=== PATIENT | male | born 1970 | race Caucasian/White ===

== ENCOUNTER 2016-09-17 20:43 | Emergency (ER) | payer OTHER ==
[~2016-09-17] VITALS: Ht 185.4 cm; Wt 159.0 kg
[2016-09-17] VITALS (8 sets, daily range): BP systolic 122–202; BP diastolic 72–106; PULSE 92–108; RESP 18; TEMP 98.7; O2SAT 98–99
[~2016-09-17 20:43] MED LIST: ALPR1TAB3 PO; AMLO10 PO; ASPI81TA81 PO; GLUC500C5 PO; LEVEMIR SQ; LISI-515 PO; METF500T PO; METO50TA PO; NOVOLOGP2 SQ; REGL5TAB PO
[2016-09-17] MEDS ORDERED: hydrALAZINE HCL 20 MG/ML VIAL IV PUSH ONE (21:30)
[2016-09-17] MEDS ORDERED: LORazepam 2 MG/ML VIAL IV PUSH ONE (21:30)
[2016-09-17] MEDS ORDERED: ASPIRIN 81 MG CHEW TAB PO ONE (21:30)
[2016-09-17] MEDS ORDERED: SODIUM CHLORIDE 0.9% FLUSH 10 ML FLUSH IVF PRN (21:30)
[2016-09-17] MEDS: NITROGLYCERIN 0.4 MG SL 25 TABS/BTL SL SCH ×3 (21:35→22:12)
--- NOTE | 2016-09-17 21:37 | PD ---
HPI Chief Complaint: Hypertension Time Seen by Provider: 21:22 Travel History International Travel<30 days: No Contact w/Intl Traveler<30days: No Traveled to known affect area: No History of Present Illness HPI The patient is a 46-year-old male with no known history of heart disease who ran out of his blood pressure medication 6 days ago and 2 days ago started complaining of a headache and chest pain. The headache and chest pain got better but started in today around 2:58 PM. He states when he calms down and he feels better with respect to the chest pain. He does have a history of anxiety. The chest pain is associated with movements. PFSH Past Medical History Autoimmune Disease: No Blood Disorders: No Anxiety: Yes Depression: No Heart Rhythm Problems: Yes (IRREGULAR HEART RATE) Cancer: No Cardiovascular Problems: Yes (htn on meds) High Cholesterol: No COPD: Yes Cerebrovascular Accident: No Diabetes: Yes (DIET CONTROLLED) Patient Takes Glucophage: No Diminished Hearing: No Endocrine: Yes Gastrointestinal Disorders: No GERD: No Gout: Yes Genitourinary: No Headaches: No Hepatitis: No Hiatal Hernia: No Hypertension: Yes Immune Disorder: No Implanted Vascular Access Dvce: No Kidney Stones: No Musculoskeletal: Yes Neurologic: Yes Psychiatric: No Reproductive: No Respiratory: No Immunizations Current: Yes Migraines: No Myocardial Infarction: No Renal Failure: No Seizures: No Ulcer: No ?: Not Menopausal: Yes Past Surgical History Abdominal Surgery: Yes (ANAL FISSURES) AICD: No Appendectomy: No Arteriovenous Shunt: No Cardiac Surgery: No Cholecystectomy: No Ear Surgery: No Endocrine Surgery: No Eye Surgery: No Genitourinary Surgery: No Gynecologic Surgery: No Insulin Pump: No Joint Replacement: No Neurologic Surgery: No Oral Surgery: Yes Pacemaker: No Thoracic Surgery: Yes Tonsillectomy: Yes Other Surgery: Yes (LEFT INNER THIGH ABSCESS REMOVED) Social History Alcohol Use: No Tobacco Use: No (quit 10 yrs ago) Substance Use: No Allergies-Medications (Allergen,Severity, Reaction): Coded Allergies: Codeine (Verified Allergy, Severe, ITCH, 09/17/16) Clonidine (Verified Adverse Reaction, Intermediate, ARNDT, DRY MOUTH, DISORIENTED, 09/17/16) *MDRO Multi-Drug Resistant Organism (Verified Adverse Reaction, Unknown, ) MRSA (wounds) - 04/05/14; 06/29/14 MRSA (bronchial aspirate) - 11/08/03 Reported Meds & Prescriptions Reported Meds & Active Scripts Active Reglan (Metoclopramide HCl) 5 Mg Tab 5 Mg PO TIDAC Reported Norvasc (Amlodipine Besylate) 10 Mg Tab 10 Mg PO BID Metoprolol Tartrate 50 Mg Tab 50 Mg PO BID Lisinopril 20 Mg Tab 20 Mg PO BID Aspir-81 (Aspirin) 81 Mg Tabdr 1 Tab PO DAILY Alprazolam 1 Mg Tab 1 Mg PO HS PRN Review of Systems Except as stated in HPI: all other systems reviewed are Neg Physical Exam Narrative GENERAL: The patient is alert, oriented 3 in minimal apparent distress with his chest pain and moderate distress with his headache. His vital signs show blood pressure 202/106 and repeat is 185/87. SKIN: Focused skin assessment warm/dry. HEAD: Atraumatic. Normocephalic. EYES: Pupils equal and round. No scleral icterus. No injection or drainage. ENT: No nasal bleeding or discharge. Mucous membranes pink and moist. NECK: Trachea midline. No JVD. There is no meningismus and the patient flexes neck fully without any hesitation. CARDIOVASCULAR: Regular rate and rhythm. No murmur appreciated. RESPIRATORY: No accessory muscle use. Clear to auscultation. Breath sounds equal bilaterally. GASTROINTESTINAL: Abdomen soft, non-tender, nondistended. Hepatic and splenic margins not palpable. MUSCULOSKELETAL: No obvious deformities. No clubbing. No cyanosis. No edema. NEUROLOGICAL: Awake and alert. No obvious cranial nerve deficits. Motor grossly within normal limits. Normal speech. PSYCHIATRIC: The patient does appear anxious; insight and judgment normal. Data Data Last Documented VS Vital Signs Date Time Temp Pulse Resp B/P Pulse Ox O2 Delivery O2 Flow Rate FiO2 09/17/16 21:07 99 09/17/16 20:55 98.7 98 18 202/106 Orders Electrocardiogram (09/17/16 21:22) Complete Blood Count With Diff (09/17/16 21:22) Comprehensive Metabolic Panel (09/17/16 21:22) Magnesium (Mg) (09/17/16 21:22) Troponin I (09/17/16 21:22) Ecg Monitoring (09/17/16 21:22) Iv Access Insert/Monitor (09/17/16 21:22) Oximetry (09/17/16 21:22) Oxygen Administration (09/17/16 21:22) Aspirin Chew (Aspirin Chew) (09/17/16 21:30) Sodium Chloride 0.9% Flush (Ns Flush) (09/17/16 21:30) Nitroglycerin Sl (Nitrostat Sl) (09/17/16 21:30) Hydralazine Inj (Apresoline Inj) (09/17/16 21:30) Lorazepam Inj (Ativan Inj) (09/17/16 21:30) Hydromorphone Pf Inj (Dilaudid Pf Inj) (09/17/16 22:30) Ondansetron Inj (Zofran Inj) (09/17/16 22:30) Labs Laboratory Tests Test 09/17/16 09/17/16 22:00 22:36 Sodium Level 138 MEQ/L Potassium Level 4.9 MEQ/L Chloride Level 104 MEQ/L Carbon Dioxide Level 28.5 MEQ/L Anion Gap 6 MEQ/L Blood Urea Nitrogen 26 MG/DL Creatinine 1.30 MG/DL Estimat Glomerular Filtration 60 ML/MIN Rate Random Glucose 138 MG/DL Calcium Level 9.1 MG/DL Magnesium Level 1.9 MG/DL Total Bilirubin 0.4 MG/DL Aspartate Amino Transf 13 U/L (AST/SGOT) Alanine Aminotransferase 23 U/L (ALT/SGPT) Alkaline Phosphatase 111 U/L Troponin I LESS THAN 0.02 NG/ML Total Protein 7.0 GM/DL Albumin 2.9 GM/DL White Blood Count 7.5 TH/MM3 Red Blood Count 4.80 MIL/MM3 Hemoglobin 12.9 GM/DL Hematocrit 39.4 % Mean Corpuscular Volume 82.1 FL Mean Corpuscular Hemoglobin 27.0 PG Mean Corpuscular Hemoglobin 32.8 % Concent Red Cell Distribution Width 13.3 % Platelet Count 277 TH/MM3 Mean Platelet Volume 7.4 FL Neutrophils (%) (Auto) 65.6 % Lymphocytes (%) (Auto) 22.2 % Monocytes (%) (Auto) 9.5 % Eosinophils (%) (Auto) 2.0 % Basophils (%) (Auto) 0.7 % Neutrophils # (Auto) 4.9 TH/MM3 Lymphocytes # (Auto) 1.7 TH/MM3 Monocytes # (Auto) 0.7 TH/MM3 Eosinophils # (Auto) 0.1 TH/MM3 Basophils # (Auto) 0.1 TH/MM3 CBC Comment DIFF FINAL Differential Comment MDM Medical Decision Making Medical Screen Exam Complete: Yes Emergency Medical Condition: Yes Medical Record Reviewed: Yes Interpretation(s) The EKG shows sinus tachycardia with a rate of [address] elevation or depression. The CBC is normal except for a hemoglobin of 12.9. The complete metabolic profile shows a BUN of 26, GFR of 60 and albumin of 2.9 but is otherwise unremarkable. The troponin I is normal. Differential Diagnosis Acute coronary syndrome, atypical chest pain, anxiety, hypertensive headache, tension headache, noncompliance to medication Narrative Course It is now 1017 and the patient's blood pressure is normalized with the Ativan alone. He still has a headache. He has some slight nausea. The chest pain has decreased. It is now 2300 and the patient's chest pain is gone and the headache is minimal. He has no nausea. His blood pressure is normal. He wants to go home. Diagnosis Primary Impression: Headache in front of head Additional Impression: Noncompliance with medications Med/Other Pt SpecificInfo: Prescription(s) given Scripts Amlodipine 10 Mg Tab10 Mg PO DAILY #30 TAB Ref 0 Prov:Jose Sebastian MD 09/17/16 Metoprolol Tartrate 50 Mg Tab50 Mg PO BID #60 TAB Ref 0 Prov:Jose Sebastian MD 09/17/16 Lisinopril 20 Mg Tab20 Mg PO DAILY #30 TAB Ref 0 Prov:Jose Sebastian MD 09/17/16 Alprazolam 2 Mg Tab2 Mg PO HS PRN (ANXIETY) #15 TAB Ref 0 Prov:Jose Sebastian MD 09/17/16 Disposition: 01 DISCHARGE HOME Condition: Stable Jose Sebastian MD Sep 17, 2016 21:37
[2016-09-17] MEDS ORDERED: ONDANSETRON HCL 4 MG/2 ML VIAL IV ONE (22:30)
[2016-09-17] MEDS ORDERED: HYDROmorphone HCL PF 1 MG/ML VIAL IVP ONE (22:30)
[2016-09-17 22:31] LABS: CHLORIDE 104 MEQ/L (98-107); POTASSIUM 4.9 MEQ/L (3.5-5.1); SODIUM (NA) 138 MEQ/L (136-145)
[2016-09-17 22:35] LABS: ANION GAP 6 MEQ/L (5-15); BICARBONATE 28.5 MEQ/L (21.0-32.0); BLOOD UREA NITROGEN 26 MG/DL (7-18); MAGNESIUM 1.9 MG/DL (1.5-2.5)
[2016-09-17 22:38] LABS: ALT (GPT) 23 U/L (12-78); AST (GOT) 13 U/L (15-37); GLOMERULAR FILTRATION RATE 60 ML/MIN (>89)
[2016-09-17 22:39] LABS: TOTAL BILIRUBIN ADULT 0.4 MG/DL (0.2-1.0)
[2016-09-17 22:41] LABS: ALKALINE PHOSPHATASE 111 U/L (45-117)
[2016-09-17 22:47] LABS: AUTOMATED NEUTROPHIL # 4.9 TH/MM3 (1.8-7.7); BASOPHIL # 0.1 TH/MM3 (0-0.2); BASOPHIL % 0.7 % (0.0-2.0); EOSINOPHIL # 0.1 TH/MM3 (0-0.4); HEMATOCRIT 39.4 % (39.0-51.0); HEMO FLAGS DIFF FINAL; LYMPH % 22.2 % (9.0-44.0); LYMPHOCYTE # 1.7 TH/MM3 (1.0-4.8); MEAN CELL VOLUME 82.1 FL (80.0-100.0); MEAN CORPUSCULAR HGB CONC 32.8 % (32.0-36.0); MONO % 9.5 % (0.0-8.0); NEUT % 65.6 % (16.0-70.0); PLATELET COUNT 277 TH/MM3 (150-450); RED CELL DISTRIBUTION WIDTH 13.3 % (11.6-17.2); WHITE BLOOD COUNT 7.5 TH/MM3 (4.0-11.0)
[2016-09-17] MEDS ORDERED: LISI-515 PO (23:05)
[2016-09-17] MEDS ORDERED: AMLO10TA2 PO (23:05)
[2016-09-17] MEDS ORDERED: ALPR2TAB3 PO (23:05)
[2016-09-17] MEDS ORDERED: METO50TA PO (23:05)
--- NOTE | 2016-09-18 16:03 | EKG ---
Date Performed: 09/17/2016 Time Performed: 20:56:20 PTAGE: 46 years EKG: SINUS TACHYCARDIA INDETERMINATE AXIS ABNORMAL RHYTHM ECG PREVIOUS TRACING : 11/22/2015 23.08 Since previous tracing, heart rate is faster, otherwise, no significant change, and overall the tracing is otherwise normal. DOCTOR: Jonathan Calle Interpretating Date/Time 09/18/2016 16:01:44
== END 2016-09-17 23:55 | disposition home or self-care (01) ==
LOC: PHED 20:43
DX: R51 Headache (principal); R07.9 Chest pain, unspecified; R00.0 Tachycardia, unspecified; R94.31 Abnormal electrocardiogram [ECG] [EKG]; I10 Essential (primary) hypertension; E11.9 Type 2 diabetes mellitus without complications; Z91.14 Patient's other noncompliance with medication regimen; Z86.59 Personal history of other mental and behavioral disorders; Z86.79 Personal history of other diseases of the circulatory system; Z87.09 Personal history of other diseases of the respiratory system; Z87.39 Personal history of other diseases of the musculoskeletal system and connective tissue; Z86.69 Personal history of other diseases of the nervous system and sense organs
CPT/HCPCS: 80053; 83735; 84484; 85025; 93005; 96374; 96375; 99284; J1170; J2060; J2405

== ENCOUNTER 2016-10-20 19:12 | Emergency (ER) | payer OTHER ==
[~2016-10-20] VITALS: Ht 185.4 cm; Wt 164.7 kg
[~2016-10-20 19:12] MED LIST changes: +ALPR2TAB3 PO; +AMLO10TA2 PO; -GLUC500C5 PO; -LEVEMIR SQ; -METF500T PO; -NOVOLOGP2 SQ
[2016-10-20 19:43] VITALS: BP 173/104; PULSE 103; RESP 16; TEMP 98.9; O2SAT 95
[2016-10-20] MEDS ORDERED: XANA1TAB2 PO (19:58)
[2016-10-20] MEDS ORDERED: SODIUM CHLOR 0.9% 1000 ML INJ 1,000 ML IV ONE (20:45)
[2016-10-20] MEDS ORDERED: ONDANSETRON HCL 4 MG/2 ML VIAL IV PUSH ONE (20:45)
[2016-10-20] MEDS ORDERED: CLINDAMYCIN INJ 600 MG in SODIUM CHLORIDE 0.9% INJ 100 ML IV ONE (20:45)
[2016-10-20] MEDS ORDERED: HYDROmorphone HCL PF 2 MG/ML VIAL IV PUSH ONE (20:45)
[2016-10-20 21:09] LABS: AUTOMATED NEUTROPHIL # 6.1 TH/MM3 (1.8-7.7); BASOPHIL # 0.1 TH/MM3 (0-0.2); EOSINOPHIL # 0.1 TH/MM3 (0-0.4); EOSINOPHIL % 1.4 % (0.0-4.0); HEMATOCRIT 36.6 % (39.0-51.0); HEMO FLAGS DIFF FINAL; LYMPH % 12.8 % (9.0-44.0); LYMPHOCYTE # 1.1 TH/MM3 (1.0-4.8); MEAN CELL VOLUME 81.7 FL (80.0-100.0); MEAN CORPUSCULAR HEMOGLOBIN 27.6 PG (27.0-34.0); MEAN CORPUSCULAR HGB CONC 33.8 % (32.0-36.0); MONO % 14.2 % (0.0-8.0); NEUT % 70.6 % (16.0-70.0); PLATELET COUNT 274 TH/MM3 (150-450); RED BLOOD COUNT 4.48 MIL/MM3 (4.50-5.90); RED CELL DISTRIBUTION WIDTH 12.6 % (11.6-17.2); WHITE BLOOD COUNT 8.6 TH/MM3 (4.0-11.0)
[2016-10-20 21:22] LABS: POTASSIUM 5.6 MEQ/L (3.5-5.1)
[2016-10-20 21:25] LABS: BICARBONATE 27.6 MEQ/L (21.0-32.0)
[2016-10-20] MEDS ORDERED: LIDOCAINE HCL 1% 50 ML VIAL INFIL ONE (22:00)
[2016-10-20] MEDS ORDERED: LIDOCAINE HCL 1% 30 ML VIAL INFIL ONE (22:00)
[2016-10-20] MEDS ORDERED: HYDR-3535 PO (22:15)
[2016-10-20] MEDS ORDERED: CLIN1CAP6 PO (22:15)
--- NOTE | 2016-10-20 22:15 | PD ---
HPI Chief Complaint: Skin Problem Time Seen by Provider: 20:22 Travel History International Travel<30 days: No Contact w/Intl Traveler<30days: No Traveled to known affect area: No History of Present Illness HPI This 46-year-old male is complaining of a swollen tender area in the perineal region. He has had troubles like this before. He has noted swelling and pain for a couple of days. He has a history of diabetes in the past but is not on medication currently. He is on medications for high blood pressure. PFSH Past Medical History Autoimmune Disease: No Blood Disorders: No Anxiety: Yes Depression: No Heart Rhythm Problems: Yes (IRREGULAR HEART RATE) Cancer: No Cardiovascular Problems: Yes (htn on meds) High Cholesterol: No COPD: Yes Cerebrovascular Accident: No Diabetes: Yes (DIET CONTROLLED) Patient Takes Glucophage: No Diminished Hearing: No Endocrine: Yes Gastrointestinal Disorders: No GERD: No Gout: Yes Genitourinary: No Headaches: No Hepatitis: No Hiatal Hernia: No Hypertension: Yes Immune Disorder: No Implanted Vascular Access Dvce: No Kidney Stones: No Musculoskeletal: Yes Neurologic: Yes Psychiatric: No Reproductive: No Respiratory: No Immunizations Current: Yes Migraines: No Myocardial Infarction: No Renal Failure: No Seizures: No Ulcer: No Tetanus Vaccination: < 5 Years Influenza Vaccination: No Menopausal: Yes Past Surgical History Abdominal Surgery: Yes (ANAL FISSURES) AICD: No Appendectomy: No Arteriovenous Shunt: No Cardiac Surgery: No Cholecystectomy: No Ear Surgery: No Endocrine Surgery: No Eye Surgery: No Genitourinary Surgery: No Gynecologic Surgery: No Insulin Pump: No Joint Replacement: No Neurologic Surgery: No Oral Surgery: Yes Pacemaker: No Thoracic Surgery: Yes Tonsillectomy: Yes Other Surgery: Yes (LEFT INNER THIGH ABSCESS REMOVED) Social History Alcohol Use: No Tobacco Use: No Substance Use: No Allergies-Medications (Allergen,Severity, Reaction): Coded Allergies: codeine (Verified Allergy, Severe, Itching, 10/20/16) clonidine (Unverified Adverse Reaction, Severe, ARNDT, dry mouth, "felt drunk ", 10/20/16) *MDRO Multi-Drug Resistant Organism (Verified Adverse Reaction, Unknown, ) MRSA (wounds) - 04/05/14; 06/29/14 MRSA (bronchial aspirate) - 11/08/03 Reported Meds & Prescriptions Reported Meds & Active Scripts Active Metoprolol Tartrate 50 Mg Tab 50 Mg PO BID Reported Xanax (Alprazolam) 1 Mg Tab 1 Mg PO Q8H PRN Norvasc (Amlodipine Besylate) 10 Mg Tab 10 Mg PO BID Lisinopril 20 Mg Tab 20 Mg PO BID Review of Systems General / Constitutional: No: Fever, Chills Eyes: No: Diploplia, Blurred Vision HENT: No: Headaches, Lightheadedness Cardiovascular: No: Chest Pain or Discomfort Respiratory: No: Cough, Shortness of Breath Gastrointestinal: No: Nausea, Vomiting Genitourinary: No: Urgency, Frequency Musculoskeletal: No: Myalgias Skin: No Rash Neurologic: No: Weakness Endocrine: No: Heat Intolerance, Cold Intolerance Hematologic/Lymphatic: No: Easy Bruising Physical Exam Narrative GENERAL: Very large gentleman SKIN: Focused skin assessment warm/dry. HEAD: Atraumatic. Normocephalic. EYES: Pupils equal and round. No scleral icterus. No injection or drainage. ENT: No nasal bleeding or discharge. Mucous membranes pink and moist. NECK: Trachea midline. No JVD. CARDIOVASCULAR: Regular rate and rhythm. No murmur appreciated. RESPIRATORY: No accessory muscle use. Clear to auscultation. Breath sounds equal bilaterally. GASTROINTESTINAL: Abdomen soft, non-tender, nondistended. Hepatic and splenic margins not palpable. There is a swollen tender area for any fevers measured about 2 cm in diameter MUSCULOSKELETAL: No obvious deformities. No clubbing. No cyanosis. No edema. NEUROLOGICAL: Awake and alert. No obvious cranial nerve deficits. Motor grossly within normal limits. Normal speech. PSYCHIATRIC: Appropriate mood and affect; insight and judgment normal. Data Data Last Documented VS Vital Signs Date Time Temp Pulse Resp B/P (MAP) Pulse Ox O2 Delivery O2 Flow Rate FiO2 10/20/16 21:40 14 10/20/16 19:43 98.9 103 173/104 (127) 95 Orders Orders Complete Blood Count With Diff (10/20/16 20:36) Basic Metabolic Panel (Bmp) (10/20/16 20:36) Sodium Chlor 0.9% 1000 Ml Inj (Ns 1000 M (10/20/16 20:45) Ondansetron Inj (Zofran Inj) (10/20/16 20:45) Hydromorphone Pf Inj (Dilaudid Pf Inj) (10/20/16 20:45) Clindamycin Inj (Cleocin Inj) (10/20/16 20:45) Lidocaine 1% Inj (50 Ml) (Xylocaine 1% I (10/20/16 22:00) Labs Laboratory Tests Test 10/20/16 20:55 White Blood Count 8.6 TH/MM3 Red Blood Count 4.48 MIL/MM3 Hemoglobin 12.4 GM/DL Hematocrit 36.6 % Mean Corpuscular Volume 81.7 FL Mean Corpuscular Hemoglobin 27.6 PG Mean Corpuscular Hemoglobin Concent 33.8 % Red Cell Distribution Width 12.6 % Platelet Count 274 TH/MM3 Mean Platelet Volume 6.7 FL Neutrophils (%) (Auto) 70.6 % Lymphocytes (%) (Auto) 12.8 % Monocytes (%) (Auto) 14.2 % Eosinophils (%) (Auto) 1.4 % Basophils (%) (Auto) 1.0 % Neutrophils # (Auto) 6.1 TH/MM3 Lymphocytes # (Auto) 1.1 TH/MM3 Monocytes # (Auto) 1.2 TH/MM3 Eosinophils # (Auto) 0.1 TH/MM3 Basophils # (Auto) 0.1 TH/MM3 CBC Comment DIFF FINAL Differential Comment Blood Urea Nitrogen 23 MG/DL Creatinine 1.10 MG/DL Random Glucose 207 MG/DL Calcium Level 8.4 MG/DL Sodium Level 135 MEQ/L Potassium Level 5.6 MEQ/L Chloride Level 101 MEQ/L Carbon Dioxide Level 27.6 MEQ/L Anion Gap 6 MEQ/L Estimat Glomerular Filtration Rate 72 ML/MIN [facility] Medical Decision Making Medical Screen Exam Complete: Yes Emergency Medical Condition: Yes Medical Record Reviewed: Yes Differential Diagnosis Differential includes abscess, cellulitis Narrative Course Blood sugar is slightly elevated. Incision and drainage has been done and patient tolerated the procedure well. He'll be released with prescription for clindamycin and Lortab recommendations for warm soaks Procedures Procedure Narrative After informed consent the area was anesthetized and an incision made and pus obtained. This could be expressed was removed. Patient tolerated the procedure well Diagnosis Primary Impression: Abscess of perineum Departure Forms: Tests/Procedures, Work Release Enter return to work date: Oct 24, 2016 Scripts Hydrocodone-Acetaminophen (Lortab) 10-325 Mg Tab 1 TAB PO Q4H Y for PAIN, #15 TAB 0 Refills Prov: Leland Carvajal MD 10/20/16 Clindamycin (Clindamycin) 300 Mg Cap 300 MG PO Q6H for Infection for 7 Days, CAP 0 Refills Prov: Leland Carvajal MD 10/20/16 Disposition: 01 DISCHARGE HOME Condition: Stable Leland Carvajal MD Oct 20, 2016 22:15
--- NOTE | 2016-10-20 22:28 | PD ---
Physical Exam Time Seen by Provider: 22:00 Narrative I was asked by Dr. Varma to perform an incision and drainage on this patient. Please see his note for further details. Data Data Last Documented VS Vital Signs Date Time Temp Pulse Resp B/P (MAP) Pulse Ox O2 Delivery O2 Flow Rate FiO2 10/20/16 22:20 10/20/16 21:40 14 10/20/16 19:43 98.9 103 95 Orders Orders Complete Blood Count With Diff (10/20/16 20:36) Basic Metabolic Panel (Bmp) (10/20/16 20:36) Sodium Chlor 0.9% 1000 Ml Inj (Ns 1000 M (10/20/16 20:45) Ondansetron Inj (Zofran Inj) (10/20/16 20:45) Hydromorphone Pf Inj (Dilaudid Pf Inj) (10/20/16 20:45) Clindamycin Inj (Cleocin Inj) (10/20/16 20:45) Lidocaine 1% Inj (50 Ml) (Xylocaine 1% I (10/20/16 22:00) Acetamin-Hydrocod 325-5 Mg (Traer 5-325 (10/20/16 22:30) Labs Laboratory Tests Test 10/20/16 20:55 White Blood Count 8.6 TH/MM3 Red Blood Count 4.48 MIL/MM3 Hemoglobin 12.4 GM/DL Hematocrit 36.6 % Mean Corpuscular Volume 81.7 FL Mean Corpuscular Hemoglobin 27.6 PG Mean Corpuscular Hemoglobin Concent 33.8 % Red Cell Distribution Width 12.6 % Platelet Count 274 TH/MM3 Mean Platelet Volume 6.7 FL Neutrophils (%) (Auto) 70.6 % Lymphocytes (%) (Auto) 12.8 % Monocytes (%) (Auto) 14.2 % Eosinophils (%) (Auto) 1.4 % Basophils (%) (Auto) 1.0 % Neutrophils # (Auto) 6.1 TH/MM3 Lymphocytes # (Auto) 1.1 TH/MM3 Monocytes # (Auto) 1.2 TH/MM3 Eosinophils # (Auto) 0.1 TH/MM3 Basophils # (Auto) 0.1 TH/MM3 CBC Comment DIFF FINAL Differential Comment Blood Urea Nitrogen 23 MG/DL Creatinine 1.10 MG/DL Random Glucose 207 MG/DL Calcium Level 8.4 MG/DL Sodium Level 135 MEQ/L Potassium Level 5.6 MEQ/L Chloride Level 101 MEQ/L Carbon Dioxide Level 27.6 MEQ/L Anion Gap 6 MEQ/L Estimat Glomerular Filtration Rate 72 ML/MIN MDM Medical Record Reviewed: Yes Supervised Visit with CARRIE: Yes Procedures Procedure Narrative INCISION AND DRAINAGE OF ABSCESS: The area was prepped and was sterilely draped. A subcutaneous wheal of 1% lidocaine with a total number 3 mL was used to anesthetize the area properly. A number 11 scalpel was used to make a 1 cm incision across the area of the abscess. The abscess was drained, complex loculations were broken down, and irrigated with normal saline. Sterile dressing applied. Diagnosis Primary Impression: Abscess of perineum Referrals: Family Practice Physician call for appointment Patient Instructions: General Instructions, Narcotic given in the ED, Abscess Incision and Drainage (GEN) Departure Forms: Work Release, Enter return to work date: Tests/Procedures Scripts Hydrocodone-Acetaminophen (Lortab) 10-325 Mg Tab 1 TAB PO Q4H Y for PAIN, #15 TAB 0 Refills Prov: Leland Carvajal MD 10/20/16 Clindamycin (Clindamycin) 300 Mg Cap 300 MG PO Q6H for Infection for 7 Days, CAP 0 Refills Prov: Leland Carvajal MD 10/20/16 Disposition: 01 DISCHARGE HOME Condition: Stable Denisse Rizo Oct 20, 2016 22:27
[2016-10-20 22:30] VITALS: BP 148/80; PULSE 92; RESP 16; O2SAT 95
[2016-10-20] MEDS ORDERED: ACETAMINOPHEN/HYDROcodone 325 MG/5 MG TAB PO ONE (22:30)
[2016-10-20] MEDS ORDERED: METO50TA PO (22:32)
[2016-10-20] MEDS ORDERED: AMLO10TA2 PO (22:32)
[2016-10-20] MEDS ORDERED: LISI-515 PO (22:33)
== END 2016-10-20 23:05 | disposition home or self-care (01) ==
LOC: PHEFT 19:12
DX: L02.215 Cutaneous abscess of perineum (principal); I10 Essential (primary) hypertension; E11.9 Type 2 diabetes mellitus without complications; J44.9 Chronic obstructive pulmonary disease, unspecified; M10.9 Gout, unspecified
CPT/HCPCS: 46050; 80048; 85025; 96374; 96375; 99284; J1170; J2405; J7030

== ENCOUNTER 2016-11-08 19:49 | Emergency (ER) | payer OTHER ==
[~2016-11-08 19:49] MED LIST changes: -ALPR1TAB3 PO; -ALPR2TAB3 PO; -ASPI81TA81 PO; +CLIN1CAP6 PO; +HYDR-3535 PO; -REGL5TAB PO; +XANA1TAB2 PO
[2016-11-08 19:51] VITALS: BP 186/91; PULSE 110; RESP 22; TEMP 98.6; O2SAT 94
[2016-11-08 21:30] VITALS: BP 180/99; PULSE 100; RESP 22; O2SAT 96
[2016-11-08] MEDS ORDERED: DEXAMETHASONE SOD PHOS 4 MG/ML VIAL IM ONE (21:30)
[2016-11-08] MEDS ORDERED: KETOROLAC TROMETHAMINE 60 MG/2 ML (IM) VIAL IM ONE (21:30)
[2016-11-08] MEDS ORDERED: MOBI15TA PO (21:39)
--- NOTE | 2016-11-08 21:39 | PD ---
HPI Chief Complaint: Respiratory Symptoms Time Seen by Provider: 21:22 Travel History International Travel<30 days: No Contact w/Intl Traveler<30days: No Traveled to known affect area: No History of Present Illness HPI 46-year-old male complains of left hand pain and swelling and bilateral ankle and feet swelling. Patient states the symptoms started yesterday. Patient denies any injury. Patient states the pain in the aching pain and sharp pain localized to the left hand and bilateral ankle and feet. Patient denies any pain radiation. Patient denies any fever chills. Patient has history of gout. Patient also has history of hypertension and diabetes. Patient has been taking medications as directed. Patient states that he has mild shortness of breath today. Patient denies any fever chills. PFSH Past Medical History Autoimmune Disease: No Blood Disorders: No Anxiety: Yes Depression: No Heart Rhythm Problems: Yes (IRREGULAR HEART RATE) Cancer: No Cardiovascular Problems: Yes (hypertension) High Cholesterol: No COPD: Yes Cerebrovascular Accident: No Diabetes: Yes Patient Takes Glucophage: No Diminished Hearing: No Endocrine: Yes Gastrointestinal Disorders: No GERD: No Gout: Yes Genitourinary: No Headaches: No Hepatitis: No Hiatal Hernia: No Hypertension: Yes Immune Disorder: No Implanted Vascular Access Dvce: No Kidney Stones: No Musculoskeletal: Yes Neurologic: Yes Psychiatric: No Reproductive: No Respiratory: No Immunizations Current: Yes Migraines: No Myocardial Infarction: No Renal Failure: No Seizures: No Ulcer: No Menopausal: Yes Past Surgical History Abdominal Surgery: Yes (ANAL FISSURES) AICD: No Appendectomy: No Arteriovenous Shunt: No Cardiac Surgery: No Cholecystectomy: No Ear Surgery: No Endocrine Surgery: No Eye Surgery: No Genitourinary Surgery: No Gynecologic Surgery: No Insulin Pump: No Joint Replacement: No Neurologic Surgery: No Oral Surgery: Yes Pacemaker: No Thoracic Surgery: Yes Tonsillectomy: Yes Other Surgery: Yes (LEFT INNER THIGH ABSCESS REMOVED) Social History Alcohol Use: No Tobacco Use: No Substance Use: No Allergies-Medications (Allergen,Severity, Reaction): Coded Allergies: codeine (Verified Allergy, Severe, Itching, 10/20/16) clonidine (Unverified Adverse Reaction, Severe, ARNDT, dry mouth, "felt drunk ", 10/20/16) *MDRO Multi-Drug Resistant Organism (Verified Adverse Reaction, Unknown, ) MRSA (wounds) - 04/05/14; 06/29/14 MRSA (bronchial aspirate) - 11/08/03 Reported Meds & Prescriptions Reported Meds & Active Scripts Active Mobic (Meloxicam) 15 Mg Tab 15 Mg PO DAILY Metoprolol Tartrate 50 Mg Tab 50 Mg PO BID Reported Xanax (Alprazolam) 1 Mg Tab 1 Mg PO Q8H PRN Norvasc (Amlodipine Besylate) 10 Mg Tab 10 Mg PO BID Lisinopril 20 Mg Tab 20 Mg PO BID Review of Systems General / Constitutional: No: Fever Eyes: No: Visual changes HENT: No: Headaches Cardiovascular: No: Chest Pain or Discomfort Respiratory: No: Shortness of Breath Gastrointestinal: No: Abdominal Pain Genitourinary: No: Dysuria Musculoskeletal: Positive: Edema, Pain Skin: No Rash Neurologic: No: Weakness Psychiatric: No: Depression Endocrine: No: Polydipsia Hematologic/Lymphatic: No: Easy Bruising Physical Exam Narrative GENERAL: Well-nourished, well-developed patient. SKIN: Focused skin assessment warm/dry. HEAD: Normocephalic. EYES: No scleral icterus. No injection or drainage. NECK: Supple, trachea midline. No JVD or lymphadenopathy. CARDIOVASCULAR: Regular rate and rhythm without murmurs, gallops, or rubs. RESPIRATORY: Breath sounds equal bilaterally. No accessory muscle use. GASTROINTESTINAL: Abdomen soft, non-tender, nondistended. MUSCULOSKELETAL: No cyanosis, or edema. BACK: Nontender without obvious deformity. No CVA tenderness. Patient has mild edema on the dorsal of the left hand especially second MCP joint with moderate tenderness on palpation. Full range of motion of the fingers. Patient has +1 pitting edema on ankle and feet. No redness no heat noted. Data Data Last Documented VS Vital Signs Date Time Temp Pulse Resp B/P (MAP) Pulse Ox O2 Delivery O2 Flow Rate FiO2 11/08/16 21:30 100 22 180/99 (126) 96 Room Air 11/08/16 19:51 98.6 Orders Orders Ketorolac Inj (Toradol Inj) (11/08/16 21:30) Dexamethasone Inj (Decadron Inj) (11/08/16 21:30) Complete Blood Count With Diff (11/08/16 22:18) Comprehensive Metabolic Panel (11/08/16 22:18) B-Type Natriuretic Peptide (11/08/16 22:18) Thyroid Stimulating Hormone (11/08/16 22:18) Chest, Single Ap (11/08/16 22:18) Iv Access Insert/Monitor (11/08/16 22:18) Labs Laboratory Tests Test 11/08/16 22:20 White Blood Count 8.7 TH/MM3 Red Blood Count 4.48 MIL/MM3 Hemoglobin 12.1 GM/DL Hematocrit 37.2 % Mean Corpuscular Volume 82.9 FL Mean Corpuscular Hemoglobin 27.1 PG Mean Corpuscular Hemoglobin Concent 32.7 % Red Cell Distribution Width 13.9 % Platelet Count 348 TH/MM3 Mean Platelet Volume 6.5 FL Neutrophils (%) (Auto) 70.2 % Lymphocytes (%) (Auto) 16.5 % Monocytes (%) (Auto) 10.5 % Eosinophils (%) (Auto) 1.9 % Basophils (%) (Auto) 0.9 % Neutrophils # (Auto) 6.1 TH/MM3 Lymphocytes # (Auto) 1.4 TH/MM3 Monocytes # (Auto) 0.9 TH/MM3 Eosinophils # (Auto) 0.2 TH/MM3 Basophils # (Auto) 0.1 TH/MM3 CBC Comment AUTO DIFF Blood Urea Nitrogen 30 MG/DL Creatinine 1.30 MG/DL Random Glucose 172 MG/DL Total Protein 7.5 GM/DL Albumin 2.9 GM/DL Calcium Level 8.8 MG/DL Alkaline Phosphatase 145 U/L Aspartate Amino Transf (AST/SGOT) 9 U/L Alanine Aminotransferase (ALT/SGPT) 35 U/L Total Bilirubin 0.3 MG/DL Sodium Level 136 MEQ/L Potassium Level 4.3 MEQ/L Chloride Level 102 MEQ/L Carbon Dioxide Level 28.8 MEQ/L Anion Gap 5 MEQ/L Estimat Glomerular Filtration Rate 60 ML/MIN B-Type Natriuretic Peptide 32 PG/ML Thyroid Stimulating Hormone 3rd Gen 0.848 uIU/ML [facility] Medical Decision Making Medical Screen Exam Complete: Yes Emergency Medical Condition: Yes Interpretation(s) 23:09 PM. Chest x-ray shows no acute cardiopulmonary disease. CBC WBC 8.7. Hemoglobin 12.1 hematocrit 37.2. 70 neutrophil. BUN 30. BNP 32. TSH normal. Differential Diagnosis Differential diagnosis including gouty arthritis, dependent edema, cellulitis, CHF. Narrative Course 46-year-old male with pain swelling of the left hand and ankle and feet. History of gout. Toradol 60 mg IM. Decadron 8 mg IM. Diagnosis Primary Impression: Gouty arthritis Patient Instructions: General Instructions Additional Instructions: Take medications as directed. Follow-up with personal physician. Return if persistent problem or worse. Med/Other Pt SpecificInfo: Prescription(s) given Scripts Tramadol (Ultram) 50 Mg Tab 50 MG PO Q6H Y for PAIN, #12 TAB 0 Refills Prov: Herberth Crow MD 11/08/16 Meloxicam (Mobic) 15 Mg Tab 15 MG PO DAILY for Pain, #20 TAB 0 Refills Prov: Herberth Crow MD 11/08/16 Disposition: 01 DISCHARGE HOME Condition: Stable Herberth Crow MD Nov 08, 2016 21:39
[2016-11-08 22:37] LABS: AUTOMATED NEUTROPHIL # 6.1 TH/MM3 (1.8-7.7); BASOPHIL # 0.1 TH/MM3 (0-0.2); BASOPHIL % 0.9 % (0.0-2.0); EOSINOPHIL # 0.2 TH/MM3 (0-0.4); EOSINOPHIL % 1.9 % (0.0-4.0); HEMATOCRIT 37.2 % (39.0-51.0); LYMPH % 16.5 % (9.0-44.0); LYMPHOCYTE # 1.4 TH/MM3 (1.0-4.8); MEAN CELL VOLUME 82.9 FL (80.0-100.0); MEAN CORPUSCULAR HEMOGLOBIN 27.1 PG (27.0-34.0); MEAN CORPUSCULAR HGB CONC 32.7 % (32.0-36.0); MONO % 10.5 % (0.0-8.0); NEUT % 70.2 % (16.0-70.0); PLATELET COUNT 348 TH/MM3 (150-450); RED BLOOD COUNT 4.48 MIL/MM3 (4.50-5.90); RED CELL DISTRIBUTION WIDTH 13.9 % (11.6-17.2); WHITE BLOOD COUNT 8.7 TH/MM3 (4.0-11.0)
[2016-11-08 22:40] LABS: HEMO FLAGS AUTO DIFF
[2016-11-08 22:49] LABS: ANION GAP 5 MEQ/L (5-15); AST (GOT) 9 U/L (15-37); BICARBONATE 28.8 MEQ/L (21.0-32.0); BLOOD UREA NITROGEN 30 MG/DL (7-18); CHLORIDE 102 MEQ/L (98-107); GLOMERULAR FILTRATION RATE 60 ML/MIN (>89); POTASSIUM 4.3 MEQ/L (3.5-5.1); SODIUM (NA) 136 MEQ/L (136-145)
[2016-11-08 23:00] LABS: ALKALINE PHOSPHATASE 145 U/L (45-117); ALT (GPT) 35 U/L (12-78); TOTAL BILIRUBIN ADULT 0.3 MG/DL (0.2-1.0)
--- NOTE | 2016-11-08 23:01 | RADRPT ---
EXAM DATE/TIME: 11/08/2016 22:15 [facility] COMPARISON: CHEST SINGLE AP, November 22, 2015, 16:16. INDICATIONS : Short of breath. MEDICAL HISTORY : Hypertension. SURGICAL HISTORY : None. ENCOUNTER: Initial ACUITY: 1 day PAIN SCORE: 0/10 LOCATION: Bilateral chest FINDINGS: Frontal views of the chest demonstrate the lungs to be symmetrically aerated without evidence of mass , infiltrate or effusion. The cardiomediastinal contours are unremarkable. Osseous structures are i ntact. CONCLUSION: No acute disease. Emiliano Babin Jr., MD on November 08, 2016 at 22:56 Board Certified Radiologist. This report was verified electronically.
[2016-11-08] MEDS ORDERED: ULTR50TA5 PO (23:12)
[2016-11-08] MEDS ORDERED: traMADol HCL 50 MG TAB PO ONE (23:15)
[2016-11-08 23:26] LABS: BANDS 1 % (0-6); EOSINOPHILS 3 % (0-4); METAMYELOCYTES 1 % (0-1); MYELOCYTES 1 % (0-0); NEUTROPHIL # MANUAL DIFF 6.1 TH/MM3 (1.8-7.7); POLYS (SEG NEUTROPHILS) 67 % (16-70); SCAN/DIFF FINAL DIFF MANUAL; WBC DIFF SAMPLE 100
[2016-11-08 23:27] LABS: PLATELET ESTIMATE SMEAR NORMAL (NORMAL); PLATELET MORPHOLOGY NORMAL (NORMAL)
== END 2016-11-09 00:02 | disposition home or self-care (01) ==
LOC: NEPD 19:49
DX: M10.9 Gout, unspecified (principal); I10 Essential (primary) hypertension; E11.9 Type 2 diabetes mellitus without complications
CPT/HCPCS: 71010; 80053; 83880; 84443; 85007; 85027; 96372; 99284; J1100; J1885

== ENCOUNTER 2016-11-10 21:11 | Observation (INO) | payer OTHER ==
[~2016-11-10] VITALS: Ht 185.4 cm; Wt 176.3 kg
[~2016-11-10 21:11] MED LIST changes: +MOBI15TA PO; +ULTR50TA5 PO
[2016-11-10 21:14] VITALS: BP 145/78; PULSE 91; RESP 18; TEMP 98.4; O2SAT 96
[2016-11-10] MEDS ORDERED: SODIUM CHLORIDE 0.9% FLUSH 10 ML FLUSH IVF PRN (21:45)
[2016-11-10 21:51] LABS: AUTOMATED NEUTROPHIL # 5.4 TH/MM3 (1.8-7.7); BASOPHIL # 0.1 TH/MM3 (0-0.2); EOSINOPHIL # 0.2 TH/MM3 (0-0.4); HEMATOCRIT 33.8 % (39.0-51.0); HEMO FLAGS DIFF FINAL; LYMPHOCYTE # 2.2 TH/MM3 (1.0-4.8); MEAN CELL VOLUME 81.4 FL (80.0-100.0); MEAN CORPUSCULAR HEMOGLOBIN 27.6 PG (27.0-34.0); MEAN CORPUSCULAR HGB CONC 33.8 % (32.0-36.0); MONO % 8.4 % (0.0-8.0); NEUT % 62.6 % (16.0-70.0); PLATELET COUNT 399 TH/MM3 (150-450); RED BLOOD COUNT 4.15 MIL/MM3 (4.50-5.90); RED CELL DISTRIBUTION WIDTH 12.8 % (11.6-17.2); WHITE BLOOD COUNT 8.6 TH/MM3 (4.0-11.0)
[2016-11-10 21:56] VITALS: PULSE 86; RESP 18; O2SAT 96
[2016-11-10 21:59] LABS: CHLORIDE 99 MEQ/L (98-107); POTASSIUM 3.9 MEQ/L (3.5-5.1); SODIUM (NA) 136 MEQ/L (136-145)
--- NOTE | 2016-11-10 22:01 | PD ---
HPI Chief Complaint: Respiratory Symptoms Time Seen by Provider: 21:27 Travel History International Travel<30 days: No Contact w/Intl Traveler<30days: No Traveled to known affect area: No History of Present Illness HPI Patient is a 46-year-old male comes in complaining of shortness of breath. He was seen at the [facility] yesterday due to swelling in his legs and his hand. He was diagnosed with gout. He says that he continues to feel short of breath, like he cannot take a deep breath. He says this is mostly a difficulty in breathing through his nose. He denies any cough or fever. He denies any chest pain. He denies any dyspnea on exertion or shortness of breath on laying flat. He does say that he has recently gained a lot of weight, and believes this is contributing to his difficulty breathing. PFSH Past Medical History Autoimmune Disease: No Blood Disorders: No Anxiety: Yes Depression: No Heart Rhythm Problems: Yes (IRREGULAR HEART RATE) Cancer: No Cardiovascular Problems: Yes (hypertension) High Cholesterol: No COPD: Yes Cerebrovascular Accident: No Diabetes: Yes Patient Takes Glucophage: No Diminished Hearing: No Endocrine: Yes Gastrointestinal Disorders: No GERD: No Gout: Yes Genitourinary: No Headaches: No Hepatitis: No Hiatal Hernia: No Hypertension: Yes Immune Disorder: No Implanted Vascular Access Dvce: No Kidney Stones: No Musculoskeletal: Yes Neurologic: Yes Psychiatric: No Reproductive: No Respiratory: No Immunizations Current: Yes Migraines: No Myocardial Infarction: No Renal Failure: No Seizures: No Ulcer: No ?: Not Menopausal: Yes Past Surgical History Abdominal Surgery: Yes (ANAL FISSURES) AICD: No Appendectomy: No Arteriovenous Shunt: No Cardiac Surgery: No Cholecystectomy: No Ear Surgery: No Endocrine Surgery: No Eye Surgery: No Genitourinary Surgery: No Gynecologic Surgery: No Insulin Pump: No Joint Replacement: No Neurologic Surgery: No Oral Surgery: Yes Pacemaker: No Thoracic Surgery: Yes Tonsillectomy: Yes Other Surgery: Yes (LEFT INNER THIGH ABSCESS REMOVED) Social History Alcohol Use: No Tobacco Use: No (QUIT AGE 36) Substance Use: No Allergies-Medications (Allergen,Severity, Reaction): Coded Allergies: codeine (Verified Allergy, Severe, Itching, 11/10/16) clonidine (Unverified Adverse Reaction, Severe, ARNDT, dry mouth, "felt drunk ", 11/10/16) *MDRO Multi-Drug Resistant Organism (Verified Adverse Reaction, Unknown, ) MRSA (wounds) - 04/05/14; 06/29/14 MRSA (bronchial aspirate) - 11/08/03 Reported Meds & Prescriptions Reported Meds & Active Scripts Active Ultram (Tramadol HCl) 50 Mg Tab 50 Mg PO Q6H PRN Mobic (Meloxicam) 15 Mg Tab 15 Mg PO DAILY Metoprolol Tartrate 50 Mg Tab 50 Mg PO BID Reported Xanax (Alprazolam) 1 Mg Tab 1 Mg PO Q8H PRN Norvasc (Amlodipine Besylate) 10 Mg Tab 10 Mg PO BID Lisinopril 20 Mg Tab 20 Mg PO BID Review of Systems Except as stated in HPI: all other systems reviewed are Neg General / Constitutional: No: Fever, Chills Eyes: No: Blurred Vision HENT: No: Headaches, Lightheadedness Cardiovascular: No: Chest Pain or Discomfort Respiratory: Positive: Shortness of Breath, No: Cough Gastrointestinal: No: Nausea, Vomiting Musculoskeletal: Positive: Edema, Pain, No: Myalgias Skin: No Rash, No Change in Pigmentation Neurologic: No: Weakness, Dizziness Physical Exam Narrative GENERAL: Awake and alert, in no acute distress. SKIN: Focused skin assessment warm/dry. HEAD: Atraumatic. Normocephalic. EYES: Pupils equal and round. No scleral icterus. ENT: Mucous membranes pink and moist. NECK: Trachea midline. No JVD. CARDIOVASCULAR: Regular rate and rhythm. No murmur appreciated. RESPIRATORY: No accessory muscle use. Clear to auscultation. Breath sounds equal bilaterally. GASTROINTESTINAL: Abdomen soft, non-tender, nondistended. Hepatic and splenic margins not palpable. MUSCULOSKELETAL: No obvious deformities. No clubbing. No cyanosis. Edema of the right and left ankle as well as the left hand. No erythema or warmth of the joints. NEUROLOGICAL: Awake and alert. No obvious cranial nerve deficits. Motor grossly within normal limits. Normal speech. PSYCHIATRIC: Appropriate mood and affect; insight and judgment normal. Data Data Last Documented VS Vital Signs Date Time Temp Pulse Resp B/P (MAP) Pulse Ox O2 Delivery O2 Flow Rate FiO2 11/10/16 22:42 77 16 135/64 (87) 96 Room Air 11/10/16 21:14 98.4 Orders Orders Complete Blood Count With Diff (11/10/16 21:36) Comprehensive Metabolic Panel (11/10/16 21:36) B-Type Natriuretic Peptide (11/10/16 21:36) Act Partial Throm Time (Ptt) (11/10/16 21:36) Prothrombin Time / Inr (Pt) (11/10/16 21:36) Troponin I (11/10/16 21:36) Iv Access Insert/Monitor (11/10/16 21:36) Electrocardiogram (11/10/16 21:36) Ecg Monitoring (11/10/16 21:36) Oximetry (11/10/16 21:36) Oxygen Administration (11/10/16 21:36) Ct Pulmonary Angiogram (11/10/16 21:36) Sodium Chloride 0.9% Flush (Ns Flush) (11/10/16 21:45) Iohexol 350 Inj (Omnipaque 350 Inj) (11/10/16 22:12) Acetamin-Hydrocod 325-5 Mg ([place] 5-325 (11/10/16 22:30) Sodium Chlorid 0.9% 500 Ml Inj (Ns 500 M (11/10/16 22:30) Enoxaparin Inj (Lovenox Inj) (11/10/16 23:00) Admit Order (Ed Use Only) (11/10/16 ) Labs Laboratory Tests Test 11/10/16 21:45 White Blood Count 8.6 TH/MM3 Red Blood Count 4.15 MIL/MM3 Hemoglobin 11.4 GM/DL Hematocrit 33.8 % Mean Corpuscular Volume 81.4 FL Mean Corpuscular Hemoglobin 27.6 PG Mean Corpuscular Hemoglobin Concent 33.8 % Red Cell Distribution Width 12.8 % Platelet Count 399 TH/MM3 Mean Platelet Volume 6.6 FL Neutrophils (%) (Auto) 62.6 % Lymphocytes (%) (Auto) 26.0 % Monocytes (%) (Auto) 8.4 % Eosinophils (%) (Auto) 2.0 % Basophils (%) (Auto) 1.0 % Neutrophils # (Auto) 5.4 TH/MM3 Lymphocytes # (Auto) 2.2 TH/MM3 Monocytes # (Auto) 0.7 TH/MM3 Eosinophils # (Auto) 0.2 TH/MM3 Basophils # (Auto) 0.1 TH/MM3 CBC Comment DIFF FINAL Differential Comment Prothrombin Time 10.4 SEC Prothromb Time International Ratio 0.9 RATIO Activated Partial Thromboplast Time 26.6 SEC Blood Urea Nitrogen 46 MG/DL Creatinine 1.30 MG/DL Random Glucose 120 MG/DL Total Protein 6.8 GM/DL Albumin 2.6 GM/DL Calcium Level 8.1 MG/DL Alkaline Phosphatase 118 U/L Aspartate Amino Transf (AST/SGOT) 11 U/L Alanine Aminotransferase (ALT/SGPT) 32 U/L Total Bilirubin 0.2 MG/DL Sodium Level 136 MEQ/L Potassium Level 3.9 MEQ/L Chloride Level 99 MEQ/L Carbon Dioxide Level 29.3 MEQ/L Anion Gap 8 MEQ/L Estimat Glomerular Filtration Rate 60 ML/MIN Troponin I LESS THAN 0.02 NG/ML B-Type Natriuretic Peptide 17 PG/ML MDM Medical Decision Making Medical Screen Exam Complete: Yes Emergency Medical Condition: Yes Medical Record Reviewed: Yes Interpretation(s) ECG shows normal sinus rhythm at 81, no ST elevation or depression Differential Diagnosis Pneumonia versus anxiety versus ACS versus PE Narrative Course Patient is a 46-year-old male comes in complaining of shortness of breath. Exam shows edema bilateral lower extremities as well as the left hand. IV established, labs sent. Labs show evidence of dehydration with a BUN of 46 and a creatinine of 1.3. Patient given a small bolus of fluids. Given pain medicine for his swollen hand, likely caused by gout. CT of the chest performed shows a subsegmental pulmonary embolus with a pulmonary infarct. Patient started on Lovenox. He'll be admitted for further management. Diagnosis Primary Impression: Pulmonary embolism Qualified Codes: I26.99 - Other pulmonary embolism without acute cor pulmonale Admitting Information Admitting Physician Requests: Admit Condition: Stable Josie Valentin MD Nov 10, 2016 22:01
[2016-11-10 22:03] LABS: ANION GAP 8 MEQ/L (5-15); BICARBONATE 29.3 MEQ/L (21.0-32.0); BLOOD UREA NITROGEN 46 MG/DL (7-18)
[2016-11-10 22:05] LABS: APTT (PATIENT) 26.6 SEC (24.3-30.1); INTERNATIONAL NORMALIZED RATIO 0.9 RATIO; PROTHROMBIN TIME - PATIENT 10.4 SEC (9.8-11.6)
[2016-11-10 22:06] LABS: ALT (GPT) 32 U/L (12-78); AST (GOT) 11 U/L (15-37); GLOMERULAR FILTRATION RATE 60 ML/MIN (>89)
[2016-11-10 22:07] LABS: TOTAL BILIRUBIN ADULT 0.2 MG/DL (0.2-1.0)
[2016-11-10 22:08] LABS: ALKALINE PHOSPHATASE 118 U/L (45-117)
[2016-11-10] MEDS ORDERED: IOHEXOL 350 MG/ML 10 ML VIAL (for RAD DIAG) IVCONTRAST ONE (22:12)
[2016-11-10] MEDS ORDERED: ACETAMINOPHEN/HYDROcodone 325 MG/5 MG TAB PO ONE (22:30)
[2016-11-10] MEDS ORDERED: SODIUM CHLORID 0.9% 500 ML INJ 500 ML IV ONE (22:30)
--- NOTE | 2016-11-10 22:41 | RADRPT ---
EXAM DATE/TIME: 11/10/2016 22:00 [facility] COMPARISON: No previous studies available for comparison. INDICATIONS : Shortness of breath. IV CONTRAST: 65 cc Omnipaque 350 (iohexol) IV RADIATION DOSE: 21.59 CTDIvol (mGy) MEDICAL HISTORY : Hypertension. Diabetes mellitus type 2. Chronic obstructive pulmonary disease. SURGICAL HISTORY : None. ENCOUNTER: Initial ACUITY: 1 day PAIN SCALE: 0/10 LOCATION: Chest TECHNIQUE: Volumetric scanning of the chest was performed using a pulmonary embolism protocol MIP images were re constructed. Using automated exposure control and adjustment of the mA and/or kV according to patien t size, radiation dose was kept as low as reasonably achievable to obtain optimal diagnostic quality images. DICOM format image data is available electronically for review and comparison. Follow-up recommendations for detected pulmonary nodules are based at a minimum on nodule size and pa tient risk factors according to Fleischner Society Guidelines. FINDINGS: There is questionable small subsegmental filling defect within the right midlung field which likely r epresents a branch supplying the posterior aspect of the right upper lobe consistent with probable sm all subsegmental pulmonary embolism. Ground-glass density is noted involving this portion of the samanta g which raises the possibility of focal infarct. Clinical correlation is recommended. The heart is e nlarged. Coronary artery calcifications are noted. No pulmonary nodule or mass is noted. No pleura l effusion is noted. The liver is enlarged. CONCLUSION: 1. Apparent focal filling defect involving a subsegmental branch which appears to supply the posterio r aspect of the right upper lobe consistent with probable focal pulmonary embolism. Ground-glass dens ity is noted involving this segment also suggestive of probable pulmonary infarct. 2. Cardiomegaly. 3. Hepatomegaly. 4. Coronary artery calcifications. Hao Beltrán MD on November 10, 2016 at 22:20 Board Certified Radiologist. This report was verified electronically.
[2016-11-10 22:42] VITALS: BP 135/64; PULSE 77; RESP 16; O2SAT 96
[2016-11-10] MEDS ORDERED: ENOXAPARIN SODIUM 150 MG/ML SYRINGE SQ ONE (23:00)
--- NOTE | 2016-11-10 23:18 | EKG ---
Date Performed: 11/10/2016 Time Performed: 21:48:09 PTAGE: 46 years EKG: Sinus rhythm LOW QRS VOLTAGE IN PRECORDIAL LEADS MODERATE INTRAVENTRICULAR CONDUCTION DELAY BORDERLINE ECG PREVIOUS TRACING : 09/17/2016 20.56 Compared to the previous tracing, rate has decreased DOCTOR: Mahin Santamaria Interpretating Date/Time 11/10/2016 23:17:33
[2016-11-11] VITALS (11 sets, daily range): BP systolic 139–183; BP diastolic 83–106; PULSE 70–99; RESP 20; TEMP 96.4–98; O2SAT 94–99
[2016-11-11] MEDS ORDERED: ENOXAPARIN SODIUM 150 MG/ML SYRINGE SQ SCH
[2016-11-11] MEDS: ACETAMINOPHEN/HYDROcodone 325 MG/5 MG TAB PO PRN ×3 (04:43→14:59)
[2016-11-11 05:38] LABS: CHLORIDE 98 MEQ/L (98-107); SODIUM (NA) 136 MEQ/L (136-145)
[2016-11-11 05:40] LABS: INTERNATIONAL NORMALIZED RATIO 0.9 RATIO; PROTHROMBIN TIME - PATIENT 10.4 SEC (9.8-11.6)
[2016-11-11 05:43] LABS: ANION GAP 8 MEQ/L (5-15); BICARBONATE 29.7 MEQ/L (21.0-32.0); BLOOD UREA NITROGEN 45 MG/DL (7-18)
[2016-11-11 05:46] LABS: ALT (GPT) 28 U/L (12-78); AST (GOT) 10 U/L (15-37); GLOMERULAR FILTRATION RATE 72 ML/MIN (>89)
[2016-11-11 05:48] LABS: TOTAL BILIRUBIN ADULT 0.3 MG/DL (0.2-1.0)
[2016-11-11 05:49] LABS: ALKALINE PHOSPHATASE 109 U/L (45-117)
[2016-11-11] MEDS ORDERED: ALPRAZolam 0.25 MG TAB PO ONE (08:15)
--- NOTE | 2016-11-11 08:48 | RADRPT ---
EXAM DATE/TIME: 11/11/2016 07:57 [facility] COMPARISON: No previous studies available for comparison. INDICATIONS : Pulmonary embolism. Bilateral lower leg swelling. MEDICAL HISTORY : Hypertension. Irregular heart rate. Gout. Diabetes. Anxiety. MRSA. SURGICAL HISTORY : Tonsillectomy. Anal fissures. Left inner thigh abscess removal. ENCOUNTER: Initial ACUITY: 1 day PAIN SCORE: 0/10 LOCATION: Bilateral leg. TECHNIQUE: Venous ultrasound of the left and right leg was performed from the inguinal ligament to the proximal calf. Real-time, color Doppler and spectral tracing, compression and augmentation techniques were us ed. FINDINGS: RIGHT LEG: There is normal compressibility of the deep venous system from the inguinal region to the proximal ca lf. No echogenic clot is seen in the lumen of the common femoral, femoral, popliteal, and posterior tibial veins. There is a normal response of the venous system to proximal and distal augmentation an d respiration. LEFT LEG: There is normal compressibility of the deep venous system from the inguinal region to the proximal ca lf. No echogenic clot is seen in the lumen of the common femoral, femoral, popliteal, and posterior tibial veins. There is a normal response of the venous system to proximal and distal augmentation an d respiration. CONCLUSION: No DVT in either lower extremity. Zaire Wakefield MD on November 11, 2016 at 8:47 Board Certified Radiologist. This report was verified electronically.
[2016-11-11] MEDS ORDERED: INFO FOR PHARMACY/READ COMMENT ONE (11:15)
[2016-11-11] MEDS: ENOXAPARIN SODIUM 150 MG/ML SYRINGE SQ SCH ×2 (11:19→22:53)
[2016-11-11 12:01] LABS: INTERNATIONAL NORMALIZED RATIO 0.9 RATIO; PROTHROMBIN TIME - PATIENT 10.2 SEC (9.8-11.6)
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
--- NOTE | 2016-11-11 12:51 | RADRPT ---
EXAM DATE/TIME: 11/11/2016 12:36 [facility] COMPARISON: No previous studies available for comparison. INDICATIONS : Left hand pain & swelling with no known injury. Pain, redness in the 1st & second MCP joint. Patient states he has a history of gout in foot. MEDICAL HISTORY : Hypertension. Irregular heart rate. Gout. Diabetes. Anxiety. MRSA. SURGICAL HISTORY : Tonsillectomy. Anal fissures. Left inner thigh abscess removal. ENCOUNTER: Initial ACUITY: 2 days PAIN SCORE: 10/10 LOCATION: Left hand FINDINGS: Three view examination of the left hand demonstrates cystic change with expansion of the distal secon d metacarpal in the region of the head. No fractures are seen. Bony mineralization is normal. CONCLUSION: Expansile lesion along the head of the second metacarpal. This could be infection in the right clinic al setting. Zaire Wakefield MD on November 11, 2016 at 12:48 Board Certified Radiologist. This report was verified electronically.
[2016-11-11] MEDS: LISINOPRIL 20 MG TAB PO SCH ×2 (12:54→20:44)
[2016-11-11] MEDS: amLODIPine BESYLATE 5 MG TAB PO SCH (12:55)
[2016-11-11] MEDS: METOPROLOL TARTRATE 50 MG TAB PO SCH ×2 (12:55→20:44)
[2016-11-11] MEDS: PARoxetine HCL 20 MG TAB PO SCH ×3 (12:58→14:49)
[2016-11-11] MEDS ORDERED: DEXAMETHASONE SOD PHOS 4 MG/ML VIAL IV ONE (15:00)
[2016-11-11] MEDS: WARFARIN SOD 7.5 MG TAB PO SCH (15:29)
[2016-11-11] MEDS: oxyCODONE/ACETAMINOPHEN 7.5 MG/325 MG TAB PO PRN (20:44)
[2016-11-11] MEDS: predniSONE 20 MG TAB PO SCH (20:44)
--- NOTE | 2016-11-11 21:53 | MB ---
cc: PATTY MOSQUERA III, M.D. DATE OF CONSULTATION 11/11/16 HISTORY OF PRESENT ILLNESS The patient is a very friendly 46-year-old left hand dominant male who was admitted yesterday with shortness of breath and appears to have a pulmonary embolism. During his stay he had a several day history of left hand pain. 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 He states he drives 250 miles a day for [employer]. He denies any numbness or tingling in his hand and denies any other known trauma. He states he has a history of gout. PAST MEDICAL HISTORY Anxiety, irregular heart rate, hypertension, COPD, diabetes, gout. PAST SURGICAL HISTORY Anal fissure surgery, oral surgery, thoracic surgery, tonsillectomy, inner thigh abscess. SOCIAL HISTORY He denies smoking. MEDICATIONS At home: 1. Xanax. 2. Norvasc. 3. Lisinopril. 4. Ultram. 5. Mobic. 6. Metoprolol. ALLERGIES CODEINE AND CLONIDINE. FAMILY HISTORY Family history is noncontributory to the situation. REVIEW OF SYSTEMS The patient is not complaining of any headaches or double or blurry vision. He is not complaining of any coughing or wheezing. He did have some shortness of breath during this admission. He is not complaining of any chest pain or palpitations. He is not complaining of any nausea, vomiting or abdominal pain. He is not complaining of any skin lesions, rashes or eruptions. He is not complaining of any anxiety, depression or suicidal ideations. He is not complaining of any night sweats, fevers or chills. LABORATORY STUDIES Were reviewed and they are all in his chart. White blood cell count 8.6 thousand. Coagulation studies are normal. BUN, creatinine are 45 and 1.10, uric acid level is elevated at 11.4 mg/dl. He is also on Coumadin now and bridging with Lovenox. PHYSICAL EXAMINATION GENERAL: Obese but very pleasant, lying in bed with nasal cannula. Pulse ox 96%, resting comfortably, awake, alert and oriented, interactive, moving easily, with his in the room. VITAL SIGNS: Temperature is 96.5, pulse 77, respiratory 20, blood pressure 144/86, pulse ox 97%. DIRECTED EXAMINATION: Examination of left upper extremity reveals full active range of motion with a little bit of loss of flexion due to discomfort at the index finger MP joint. There is the slightest erythema in the area. There is no fluctuance. There is no induration. There is no instability. There is no anatomic deformity. There is no wound or old wound or healed scar. All musculotendinous units are intact. Negative Tinel's sign median and ulnar nerves at the wrist. No epitrochlear or axillary adenopathy palpable. There is no streaking. There is no evidence of tendonitis. All the dorsal compartments are nontender. Distal radioulnar joint moves normally and is nontender. There is tenderness over the radial side of the head of the second metacarpal. IMAGING STUDIES An x-ray of his hand was performed that shows cystic change with expansion of the distal second metacarpal in the region of the head. No fractures are seen. Bone mineralization is normal. This could be infection in the right clinical setting. IMPRESSION Left hand pain. PLAN This is not an acute infection. This may be ___ infection or trauma. I have ordered an MRI of the patient's left hand. If he is unable to tolerate that then a CAT scan will be the next test. He does not have to stay in the hospital for this and we can address this completely as an outpatient but while he is here try to get the MRI accomplished. I will follow along with you. MD MELBA Scott III/AZUCENA /8:39 PM /9:27 PM
[2016-11-12] VITALS: BP 164/97; PULSE 79; RESP 20; TEMP 97.1; O2SAT 98
[2016-11-12 04:00] VITALS: BP 139/76; PULSE 88; RESP 20; TEMP 96.8; O2SAT 96
[2016-11-12] MEDS: oxyCODONE/ACETAMINOPHEN 7.5 MG/325 MG TAB PO PRN ×3 (05:12→16:26)
[2016-11-12 05:52] LABS: PROTHROMBIN TIME - PATIENT 10.7 SEC (9.8-11.6)
[2016-11-12 05:58] LABS: POTASSIUM 5.6 MEQ/L (3.5-5.1)
[2016-11-12 08:00] VITALS: BP 165/103; PULSE 94; RESP 20; TEMP 97.4; O2SAT 94; O2SAT 97
[2016-11-12] MEDS: predniSONE 20 MG TAB PO SCH (09:22)
[2016-11-12] MEDS: METOPROLOL TARTRATE 50 MG TAB PO SCH (09:22)
[2016-11-12] MEDS: amLODIPine BESYLATE 5 MG TAB PO SCH (09:22)
[2016-11-12] MEDS: LISINOPRIL 20 MG TAB PO SCH (09:22)
[2016-11-12] MEDS: PARoxetine HCL 20 MG TAB PO SCH (09:26)
[2016-11-12] MEDS ORDERED: PNEUMOCOCCAL POLYVALENT INJ 25 MCG/0.5 ML SYR IM ONE (10:00)
[2016-11-12] MEDS ORDERED: INFLUENZA VIRUS VACCINE (QUADRIVALENT) 0.5 ML SYR IM ONE (10:00)
[2016-11-12] MEDS: ENOXAPARIN SODIUM 150 MG/ML SYRINGE SQ SCH (11:00)
[2016-11-12 12:00] VITALS: BP 129/83; PULSE 90; RESP 20; TEMP 98; O2SAT 98
[2016-11-12] MEDS ORDERED: SODIUM CHLOR 0.45% 1000 ML INJ 1,000 ML IV SCH (13:30)
--- NOTE | 2016-11-12 14:33 | RADRPT ---
EXAM DATE/TIME: 11/12/2016 13:28 [facility] COMPARISON: HAND LEFT COMPLETE ([id number]), November 11, 2016, 12:36. INDICATIONS : Left hand pain and swelling. Pain on 2nd digit metacarpal phalangeal region. RADIATION DOSE: 13.26 CTDIvol (mGy) MEDICAL HISTORY : Diabetes mellitus type 2. Chronic obstructive pulmonary disease. Hypertension.Gout. SURGICAL HISTORY : Anal fissure surgery. ENCOUNTER: Initial ACUITY: 4 - 6 days PAIN SCALE: 10/10 LOCATION: Left hand. TECHNIQUE: Volumetric scanning of the hand was performed. Using automated exposure control and adjustment of th e mA and/or kV according to patient size, radiation dose was kept as low as reasonably achievable to obtain optimal diagnostic quality images. DICOM format image data is available electronically for re view and comparison. FINDINGS: There is soft tissue swelling deep overlying external ventral aspect and lateral aspect of the head o f the first metacarpal. The cortex is eroded and thinned of this adjacent area of the head of the fir st metacarpal with amorphous calcification adjacent to this. Findings are suspect of an osteolytic pr ocess such as osteomyelitis. CONCLUSION: Abnormal head of the first metacarpal lateral external eventually associated soft tissue swelling wit h findings suggesting osteolytic process such as osteomyelitis. Tee Fernandez MD on November 12, 2016 at 14:22 Board Certified Radiologist. This report was verified electronically.
[2016-11-12 15:07] LABS: POTASSIUM 5.1 MEQ/L (3.5-5.1)
[2016-11-12 15:32] LABS: BICARBONATE 29.8 MEQ/L (21.0-32.0)
--- NOTE | 2016-11-12 15:38 | HHI.PR ---
Subjective Remarks Hand still hurst but manageable. Wants to go home, breathing ok. urinating a lot Objective Vitals Vital Signs Date Time Temp Pulse Resp B/P (MAP) Pulse Ox O2 Delivery O2 Flow Rate FiO2 11/12/16 12:27 18 11/12/16 12:00 98.0 90 20 129/83 (98) 98 11/12/16 08:00 97.4 94 20 165/103 (123) 97 11/12/16 04:00 96.8 88 20 139/76 (97) 96 11/12/16 00:00 97.1 79 20 164/97 (119) 98 11/11/16 23:00 78 11/11/16 20:10 99 Nasal Cannula 2.00 11/11/16 20:10 99 Nasal Cannula 2.00 11/11/16 20:00 98.0 89 20 172/95 (120) 97 11/11/16 16:00 96.5 77 20 144/86 (105) 97 11/11/16 15:59 19 Result Diagram: 11/10/16214411/12/169 Imaging Last Impressions Upper Extremity CT 11/12/16 0000 Signed Impressions: Service Date/Time: Saturday, November 12, 2016 13:28 - CONCLUSION: Abnormal head of the first metacarpal lateral external eventually associated soft tissue swelling with findings suggesting osteolytic process such as osteomyelitis. Tee Fernandez MD Lower Extremity Ultrasound 11/11/16 0000 Signed Impressions: Service Date/Time: October 07:57 - CONCLUSION: No DVT in either lower extremity. Zaire Wakefield MD Hand X-Ray 11/11/16 0000 Signed Impressions: Service Date/Time: October 12:36 - CONCLUSION: Expansile lesion along the head of the second metacarpal. This could be infection in the right clinical setting. Zaire Wakefield MD CT Angiography 11/10/162135 Signed Impressions: Service Date/Time: Thursday, November 10, 2016 22:00 - CONCLUSION: 1. Apparent focal filling defect involving a subsegmental branch which appears to supply the posterior aspect of the right upper lobe consistent with probable focal pulmonary embolism. Ground-glass density is noted involving this segment also suggestive of probable pulmonary infarct. 2. Cardiomegaly. 3. Hepatomegaly. 4. Coronary artery calcifications. Hao Beltrán MD Objective Remarks Lying in bed NAD Lungs cta Heart rrr abdomen globose ext trace pedal edema, left hand captain cannery tender . mild erythema over both mcp joints 1st and 2nd A/P Problem List: (1) Pulmonary embolism ICD Codes: I26.99 - Other pulmonary embolism without acute cor pulmonale Status: Acute Plan: will discharge on lovenox and coumadin (2) DM (diabetes mellitus) ICD Codes: E11.9 - Type 2 diabetes mellitus without complications Status: Chronic Plan: his type 2 diabetes has been diet controlled but he has had an elevation of his sugars due to prednisone given to treat his gout will cover with insulin/ ivf and discharge with sliding scale as his sugars improve (3) Anxiety ICD Codes: F41.9 - Anxiety disorder, unspecified Status: Chronic Plan: attempted to start treatment with paxil for him yesterday but then he remembered he had side effects with it and declined will f/u as outpatient (4) Hypertension ICD Codes: I10 - Essential (primary) hypertension Status: Chronic Plan: blood pressure controlled on current regimen he remembers today that the reason his amlodipine was started was due to decreasing his lisinopril he remembers there was an issue with his potassium at some point will decrease his lisinopril at discharge and f/u his bp and k as outpatient (5) Left hand pain ICD Codes: M79.642 - Pain in left hand Status: Acute Plan: uric acid was elevated and was treated for gout however due to severity of pain xray was ordered that raised the possibility of infectious process Dr Borges was consulted who ordered mri but due to patients size was unable to be performed and order was changed to ct scan, ct scan again raises the possibility of osteomyelitis. Spoke to Dr Borges who stated patient needed MRI and felt this could be done as an outpatient and pt could be discharged with f/u with him after mri. Assessment and Plan plan to discharge later today with f/u on tuesday will need evaluation for joseph as outpatient Problem Qualifiers (1) Pulmonary embolism: Qualified Codes: I26.99 - Other pulmonary embolism without acute cor pulmonale (2) DM (diabetes mellitus): (3) Hypertension: Qualified Codes: I10 - Essential (primary) hypertension Ania Gannon MD Nov 12, 2016 15:38
[2016-11-12 16:00] VITALS: BP 181/100; PULSE 90; RESP 20; TEMP 98.2; O2SAT 100
[2016-11-12] MEDS ORDERED: INSULIN HUMAN REGULAR 1,000 UNITS/10 ML VIAL SQ ONE ×2 (16:15→16:30)
[2016-11-12] MEDS: WARFARIN SOD 7.5 MG TAB PO SCH (16:26)
[2016-11-12] MEDS ORDERED: COUM7.5T PO (17:03)
[2016-11-12] MEDS ORDERED: OXYC1TAB35 PO (17:03)
[2016-11-12] MEDS ORDERED: ENOX150P SQ (17:03)
[2016-11-12] MEDS ORDERED: AMLO5 PO (17:03)
[2016-11-12] MEDS ORDERED: NOVOLOGP2 SQ (17:05)
[2016-11-12] MEDS ORDERED: METF500T PO (17:38)
[2016-11-12 17:53] VITALS: RESP 18
[2016-11-12] MEDS ORDERED: INSULIN ASPART 1,000 UNITS/10 ML VIAL SQ ONE (18:15)
== END 2016-11-12 18:45 | disposition home or self-care (01) ==
LOC: PHED 21:11 → INTOOBSV 23:15 → PHEDA 23:15 → PH3B 23:52
PROVIDERS: ADMIT Legal Medicine; ATTEND Legal Medicine
DX: I26.99 Other pulmonary embolism without acute cor pulmonale (principal); E11.9 Type 2 diabetes mellitus without complications; F41.9 Anxiety disorder, unspecified; I10 Essential (primary) hypertension; M79.642 Pain in left hand; E86.0 Dehydration; I48.91 Unspecified atrial fibrillation; G47.30 Sleep apnea, unspecified; J44.9 Chronic obstructive pulmonary disease, unspecified; M10.9 Gout, unspecified; E66.9 Obesity, unspecified; Z68.43 Body mass index [BMI] 50.0-59.9, adult; Z87.891 Personal history of nicotine dependence; Z86.14 Personal history of Methicillin resistant Staphylococcus aureus infection
CPT/HCPCS: 71275; 73130; 73200; 80048; 80053; 82948; 83880; 84484; 84550; 85025; 85610; 85730; 87641; 93005; 93970; 94762; 96361; 96372; 96374; 99285; G0378; J1100; J1650; J1815; J7040; J7512; Q9967

== ENCOUNTER 2017-06-03 19:11 | Emergency (ER) | payer OTHER ==
[~2017-06-03 19:11] MED LIST changes: -AMLO10 PO; -AMLO10TA2 PO; +AMLO5 PO; -CLIN1CAP6 PO; +COUM7.5T PO; +ENOX150P SQ; -HYDR-3535 PO; +METF500T PO; -MOBI15TA PO; +NOVOLOGP2 SQ; +OXYC1TAB35 PO; -ULTR50TA5 PO
[2017-06-03 19:13] VITALS: BP 213/96; PULSE 109; RESP 20; TEMP 98.6; O2SAT 95
[2017-06-03] MEDS ORDERED: CLIN150C14 PO (19:39)
[2017-06-03] MEDS ORDERED: BACT800T5 PO (19:39)
--- NOTE | 2017-06-03 19:39 | PD ---
HPI Chief Complaint: Skin Problem Time Seen by Provider: 19:24 Travel History International Travel<30 days: No Contact w/Intl Traveler<30days: No Traveled to known affect area: No History of Present Illness HPI 47 years old male complained of draining abscess on the left lower abdominal wall. Patient states that he started having redness swelling with pain left lower quadrant of the abdominal wall 4 days ago. Patient states that he started having bloody drainage from the left lower quadrant abdominal wall today. Patient denies any fever chills. Patient stated the pain is burning pain sharp pain localized the left lower quadrant abdominal wall. Patient denies any pain radiation. On a chest wall 1-10 the pain is an 8. PFSH Past Medical History Hx Anticoagulant Therapy: Yes (WARFARIN) Autoimmune Disease: No Blood Disorders: No Anxiety: Yes Depression: No Heart Rhythm Problems: Yes (IRREGULAR HEART RATE) Cancer: No Cardiovascular Problems: Yes (hypertension) High Cholesterol: No COPD: No Cerebrovascular Accident: No Diabetes: Yes Patient Takes Glucophage: Yes Diminished Hearing: No Endocrine: Yes Gastrointestinal Disorders: No GERD: No Gout: Yes Genitourinary: No Headaches: No Hepatitis: No Hiatal Hernia: No Hypertension: Yes Immune Disorder: No Implanted Vascular Access Dvce: No Kidney Stones: No Musculoskeletal: Yes Neurologic: No Psychiatric: Yes Reproductive: No Respiratory: No Immunizations Current: Yes Migraines: No Myocardial Infarction: No Renal Failure: No Seizures: No Ulcer: No Menopausal: Yes Past Surgical History Abdominal Surgery: Yes (ANAL FISSURES) AICD: No Appendectomy: No Arteriovenous Shunt: No Cardiac Surgery: No Cholecystectomy: No Ear Surgery: No Endocrine Surgery: No Eye Surgery: No Genitourinary Surgery: No Gynecologic Surgery: No Insulin Pump: No Joint Replacement: No Neurologic Surgery: No Oral Surgery: Yes Pacemaker: No Thoracic Surgery: Yes Tonsillectomy: Yes Other Surgery: Yes (LEFT INNER THIGH ABSCESS REMOVED) Social History Alcohol Use: No Tobacco Use: No (QUIT AGE 36) Substance Use: No Allergies-Medications (Allergen,Severity, Reaction): Coded Allergies: codeine (Verified Allergy, Severe, Itching, 11/10/16) clonidine (Unverified Adverse Reaction, Severe, ARNDT, dry mouth, "felt drunk ", 11/10/16) Reported Meds & Prescriptions Reported Meds & Active Scripts Active Metformin (Metformin HCl) 500 Mg Tab 500 Mg PO BIDPC 30 Days With meals Novolog Inj (Insulin Aspart) 1,000 Unit/10 Ml Vial 0 SQ DIRECTED Sliding Scale as directed. Oxycodone-Acetaminophen 7.5-325 mg Tab 1 Tab PO Q6H PRN 7 Days Norvasc (Amlodipine Besylate) 5 Mg Tab 5 Mg PO DAILY 30 Days Coumadin (Warfarin) 7.5 Mg Tab 7.5 Mg PO DAILY@1600 30 Days Lovenox Inj (Enoxaparin Sodium) 150 Mg/Ml Syr 150 Mg SQ Q12H 5 Days Metoprolol Tartrate 50 Mg Tab 50 Mg PO BID Reported Xanax (Alprazolam) 1 Mg Tab 1 Mg PO Q8H PRN Lisinopril 20 Mg Tab 20 Mg PO BID Review of Systems General / Constitutional: No: Fever Eyes: No: Visual changes HENT: No: Headaches Cardiovascular: No: Chest Pain or Discomfort Respiratory: No: Shortness of Breath Gastrointestinal: No: Abdominal Pain Genitourinary: No: Dysuria Musculoskeletal: No: Pain Skin: No Rash Neurologic: No: Weakness Psychiatric: No: Depression Endocrine: No: Polydipsia Hematologic/Lymphatic: No: Easy Bruising Physical Exam Narrative GENERAL: Well-nourished, well-developed patient. SKIN: Focused skin assessment warm/dry. HEAD: Normocephalic. EYES: No scleral icterus. No injection or drainage. NECK: Supple, trachea midline. No JVD or lymphadenopathy. CARDIOVASCULAR: Regular rate and rhythm without murmurs, gallops, or rubs. RESPIRATORY: Breath sounds equal bilaterally. No accessory muscle use. GASTROINTESTINAL: Abdomen soft, non-tender, nondistended. MUSCULOSKELETAL: No cyanosis, or edema. BACK: Nontender without obvious deformity. No CVA tenderness. Patient has an area of redness swelling tenderness left lower quadrant abdominal wall with a small opening draining serosanguineous fluid. Data Data Last Documented VS Vital Signs Date Time Temp Pulse Resp B/P (MAP) Pulse Ox O2 Delivery O2 Flow Rate FiO2 06/03/17 19:13 98.6 109 20 213/96 (135) 95 Orders Orders Wound Culture And Gram Stain (06/03/17 19:32) MDM Medical Decision Making Medical Screen Exam Complete: Yes Emergency Medical Condition: Yes Differential Diagnosis Differential diagnosis including cellulitis, abscess. Narrative Course 47 years old male with draining abscess left lower quadrant abdominal wall. Wound culture obtained. Clindamycin 300 mg p.o. given. Bactrim DS 1 tablet p.o. given. Diagnosis Primary Impression: Abdominal wall abscess Patient Instructions: General Instructions Additional Instructions: Clindamycin and Bactrim DS as directed. Wound care daily. Moist compresses as directed. Follow-up with personal physician. Return if increasing redness and swelling. Med/Other Pt SpecificInfo: Prescription(s) given Scripts Sulfamethoxazole-Trimethoprim (Bactrim DS) 800-160 Mg Tab 1 TAB PO BID for Infection, #20 TAB 0 Refills Prov: Herberth Crow MD 06/03/17 Clindamycin (Clindamycin) 150 Mg Cap 300 MG PO QID for Infection, #80 CAP 0 Refills Prov: Herberth Crow MD 06/03/17 Disposition: 01 DISCHARGE HOME Condition: Stable Herberth Crow MD Jun 03, 2017 19:39
[2017-06-03] MEDS ORDERED: CLINDAMYCIN 150 MG CAP PO ONE (19:45)
[2017-06-03] MEDS ORDERED: SULFAMETHOXAZOLE-TRIMETHOPRIM DS 800-160 MG TAB PO ONE (19:45)
[2017-06-03 19:56] VITALS: BP 168/72; TEMP 98
== END 2017-06-03 19:55 | disposition home or self-care (01) ==
LOC: PHED 19:11
DX: L02.211 Cutaneous abscess of abdominal wall (principal); I10 Essential (primary) hypertension; E11.9 Type 2 diabetes mellitus without complications; F41.9 Anxiety disorder, unspecified; Z88.5 Allergy status to narcotic agent; Z79.84 Long term (current) use of oral hypoglycemic drugs; Z79.01 Long term (current) use of anticoagulants; Z79.899 Other long term (current) drug therapy
CPT/HCPCS: 86403; 87070; 87205; 99283

== ENCOUNTER 2017-06-08 16:00 | Observation (INO) | payer OTHER ==
[2017-06-08] VITALS (9 sets, daily range): BP systolic 134–204; BP diastolic 68–111; PULSE 75–84; RESP 16–20; TEMP 97.7–99.3; O2SAT 93–99
[~2017-06-08] VITALS: Ht 185.4 cm; Wt 180.4 kg
[~2017-06-08 16:00] MED LIST changes: +BACT800T5 PO; +CLIN150C14 PO
--- NOTE | 2017-06-08 16:26 | PD ---
HPI Chief Complaint: Chest Pain Time Seen by Provider: 16:11 Travel History International Travel<30 days: No Contact w/Intl Traveler<30days: No Traveled to known affect area: No History of Present Illness HPI 47-year-old male with history of diabetes, PE on Coumadin, hypertension, gout, here for evaluation of 20 pound weight gain over the last several days, feeling as though his arm/leg/face are swollen, chest discomfort, shortness of breath, abdominal wall distention. The patient was seen in the emergency department on 06/03/17 when he had a spontaneously draining abscess to his left lower abdomen. He was started on Bactrim and clindamycin. Cultures grew out group B strep. He was seen by his primary care physician who stopped the Bactrim as this was causing the patient to feel sick, and increased the clindamycin. Patient reports that for the last 4 days he has been having pain in his bilateral calves that he describes as sharp, severe, constant, worse with movements. He has also had intermittent substernal chest discomfort as well as feeling short of breath. Short of breath is at rest, worse with exertion. No orthopnea. He is on Lasix. Reports that he feels as though the area of cellulitis/abscess to his left lower abdomen has been improving. No fevers. He also reports a slight frontal headache he states is very mild. PFSH Past Medical History Hx Anticoagulant Therapy: Yes (WARFARIN) Autoimmune Disease: No Blood Disorders: No Anxiety: Yes Depression: No Heart Rhythm Problems: Yes (IRREGULAR HEART RATE) Cancer: No Cardiovascular Problems: Yes (hypertension) High Cholesterol: No COPD: No Cerebrovascular Accident: No Diabetes: Yes Diminished Hearing: No Endocrine: Yes Gastrointestinal Disorders: No GERD: No Gout: Yes Genitourinary: No Headaches: No Hepatitis: No Hiatal Hernia: No Hypertension: Yes Immune Disorder: No Implanted Vascular Access Dvce: No Kidney Stones: No Musculoskeletal: Yes Neurologic: No Psychiatric: Yes Reproductive: No Respiratory: No Immunizations Current: Yes Migraines: No Myocardial Infarction: No Renal Failure: No Seizures: No Ulcer: No Menopausal: Yes Past Surgical History Abdominal Surgery: Yes (ANAL FISSURES) AICD: No Appendectomy: No Arteriovenous Shunt: No Cardiac Surgery: No Cholecystectomy: No Ear Surgery: No Endocrine Surgery: No Eye Surgery: No Genitourinary Surgery: No Gynecologic Surgery: No Insulin Pump: No Joint Replacement: No Neurologic Surgery: No Oral Surgery: Yes Pacemaker: No Thoracic Surgery: Yes Tonsillectomy: Yes Other Surgery: Yes (LEFT INNER THIGH ABSCESS REMOVED) Social History Alcohol Use: No Tobacco Use: No (QUIT AGE 36) Substance Use: No Allergies-Medications (Allergen,Severity, Reaction): Coded Allergies: codeine (Verified Allergy, Severe, Itching, 06/08/17) clonidine (Unverified Adverse Reaction, Severe, ARNDT, dry mouth, "felt drunk ", 06/08/17) Reported Meds & Prescriptions Reported Meds & Active Scripts Active Clindamycin (Clindamycin HCl) 150 Mg Cap 300 Mg PO QID Novolog Inj (Insulin Aspart) 1,000 Unit/10 Ml Vial 0 SQ DIRECTED Sliding Scale as directed. Norvasc (Amlodipine Besylate) 5 Mg Tab 5 Mg PO DAILY 30 Days Coumadin (Warfarin) 7.5 Mg Tab 7.5 Mg PO DAILY@1600 30 Days Metoprolol Tartrate 50 Mg Tab 50 Mg PO BID Reported Paxil (Paroxetine HCl) 10 Mg Tab 10 Mg PO DAILY Lasix (Furosemide) 40 Mg Tab 40 Mg PO DAILY Metformin ER (Metformin HCl) 750 Mg [place] 750 Mg PO BID With evening meal Xanax (Alprazolam) 1 Mg Tab 1 Mg PO Q8H PRN Lisinopril 20 Mg Tab 20 Mg PO DAILY Review of Systems Except as stated in HPI: all other systems reviewed are Neg Physical Exam Narrative GENERAL: Well-developed, well-nourished, pleasant, overweight, no apparent distress. SKIN: Focused skin assessment warm/dry. Left lower abdominal wall/inguinal region with area of induration that appeared to be an abscess that spontaneously drained overlying warmth and erythema, no crepitus, mild tenderness. HEAD: Atraumatic. Normocephalic. EYES: Pupils equal and round. No scleral icterus. No injection or drainage. ENT: Mucous membranes pink and moist. NECK: Trachea midline. No JVD. No nuchal rigidity. CARDIOVASCULAR: Regular rate and rhythm. RESPIRATORY: No accessory muscle use. Clear to auscultation. Breath sounds equal bilaterally. GASTROINTESTINAL: Abdomen soft, non-tender, nondistended. Skin exam as above. MUSCULOSKELETAL: No obvious deformities. No clubbing. No cyanosis. Mild bilateral upper and lower extremity edema. All compartments in the upper and lower extremities are supple. NEUROLOGICAL: Awake and alert. No obvious cranial nerve deficits. Motor grossly within normal limits. Normal speech. PSYCHIATRIC: Appropriate mood and affect; insight and judgment normal. Data Data Last Documented VS Vital Signs Date Time Temp Pulse Resp B/P (MAP) Pulse Ox O2 Delivery O2 Flow Rate FiO2 06/08/17 18:27 80 16 99 Nasal Cannula 2.00 06/08/17 18:15 197/107 (137) 06/08/17 16:03 99.3 Orders Orders Complete Blood Count With Diff (06/08/17 16:20) Comprehensive Metabolic Panel (06/08/17 16:20) B-Type Natriuretic Peptide (06/08/17 16:20) Act Partial Throm Time (Ptt) (06/08/17 16:20) Prothrombin Time / Inr (Pt) (06/08/17 16:20) Ckmb (Isoenzyme) Profile (06/08/17 16:20) Troponin I (06/08/17 16:20) Urinalysis - C+S If Indicated (06/08/17 16:20) Iv Access Insert/Monitor (06/08/17 16:20) Electrocardiogram (06/08/17 16:20) Ecg Monitoring (06/08/17 16:20) Oximetry (06/08/17 16:20) Oxygen Administration (06/08/17 16:20) Chest, Single Ap (06/08/17 16:20) Sodium Chloride 0.9% Flush (Ns Flush) (06/08/17 16:30) Us Leg Venous Doppler Bilat (06/08/17 ) Blood Culture (06/08/17 16:20) Acetaminophen (Tylenol) (06/08/17 16:30) Morphine Inj (Morphine Inj) (06/08/17 17:00) CKMB (06/08/17 16:30) CKMB% (06/08/17 16:30) Aspirin Chew (Aspirin Chew) (06/08/17 18:30) Nitroglycerin 2% Oint (Nitroglycerin 2% (06/08/17 18:30) Furosemide Inj (Lasix Inj) (06/08/17 18:30) Labs Laboratory Tests Test 06/08/17 16:30 White Blood Count 6.8 TH/MM3 Red Blood Count 4.29 MIL/MM3 Hemoglobin 11.1 GM/DL Hematocrit 34.4 % Mean Corpuscular Volume 80.1 FL Mean Corpuscular Hemoglobin 25.8 PG Mean Corpuscular Hemoglobin Concent 32.2 % Red Cell Distribution Width 14.0 % Platelet Count 316 TH/MM3 Mean Platelet Volume 7.0 FL Neutrophils (%) (Auto) 71.4 % Lymphocytes (%) (Auto) 16.9 % Monocytes (%) (Auto) 8.6 % Eosinophils (%) (Auto) 2.5 % Basophils (%) (Auto) 0.6 % Neutrophils # (Auto) 4.9 TH/MM3 Lymphocytes # (Auto) 1.1 TH/MM3 Monocytes # (Auto) 0.6 TH/MM3 Eosinophils # (Auto) 0.2 TH/MM3 Basophils # (Auto) 0.0 TH/MM3 CBC Comment DIFF FINAL Differential Comment Prothrombin Time 30.8 SEC Prothromb Time International Ratio 3.1 RATIO Activated Partial Thromboplast Time 39.7 SEC Blood Urea Nitrogen 23 MG/DL Creatinine 1.20 MG/DL Random Glucose 175 MG/DL Total Protein 6.4 GM/DL Albumin 2.3 GM/DL Calcium Level 8.3 MG/DL Alkaline Phosphatase 142 U/L Aspartate Amino Transf (AST/SGOT) 9 U/L Alanine Aminotransferase (ALT/SGPT) 33 U/L Total Bilirubin 0.1 MG/DL Sodium Level 136 MEQ/L Potassium Level 5.4 MEQ/L Chloride Level 104 MEQ/L Carbon Dioxide Level 28.7 MEQ/L Anion Gap 3 MEQ/L Estimat Glomerular Filtration Rate 65 ML/MIN Total Creatine Kinase 108 U/L Creatine Kinase MB 1.3 NG/ML Troponin I LESS THAN 0.02 NG/ML B-Type Natriuretic Peptide 197 PG/ML [facility] Medical Decision Making Medical Screen Exam Complete: Yes Emergency Medical Condition: Yes Medical Record Reviewed: Yes Interpretation(s) EKG: Sinus, rate 75, normal axis, normal intervals, no acute ischemic abnormality. Differential Diagnosis Sepsis, cellulitis, metabolic abnormality, renal insufficiency, fluid overload/ pulmonary edema, DVT/PE, ACS, pneumothorax, pericarditis, pneumonia, Narrative Course Initial vital signs show heart rate 83, blood pressure 204/104, pulse ox 97% on room air, oral temp of 99.3F. CBC: WBC 6.8, hemoglobin 11.1 hematocrit 34.4, platelets 316. CMP is remarkable for potassium 5.4, BUN 23, creatinine 1.2, GFR 65, random glucose 175. Albumin is 2.3. INR is 3.1. Cardiac enzymes are negative. BNP is 197. Chest x-ray: Cardiomegaly with mild failure. 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 Case discussed with [facility] hospitalist Dr. Mcnally, the patient will be admitted under their service under Dr. Gannon. Patient will be started on Nitropaste, given 40 mg of IV Lasix, and will be admitted for further treatment and evaluation. Patient made aware of all findings and plan. Diagnosis Primary Impression: Chest pain Qualified Codes: R07.9 - Chest pain, unspecified Additional Impressions: CHF (congestive heart failure) Qualified Codes: I50.9 - Heart failure, unspecified Hyperkalemia Uncontrolled hypertension Lit Ho MD Jun 08, 2017 16:26
[2017-06-08] MEDS ORDERED: SODIUM CHLORIDE 0.9% FLUSH 10 ML FLUSH IVF PRN (16:30)
[2017-06-08] MEDS ORDERED: ACETAMINOPHEN 325 MG TAB PO ONE (16:30)
[2017-06-08] MEDS ORDERED: MORPHINE SULFATE 2 MG/ML SYRINGE IV PUSH ONE (17:00)
[2017-06-08 17:26] LABS: AUTOMATED NEUTROPHIL # 4.9 TH/MM3 (1.8-7.7); BASOPHIL % 0.6 % (0.0-2.0); EOSINOPHIL # 0.2 TH/MM3 (0-0.4); EOSINOPHIL % 2.5 % (0.0-4.0); HEMATOCRIT 34.4 % (39.0-51.0); HEMOGLOBIN 11.1 GM/DL (13.0-17.0); LYMPH % 16.9 % (9.0-44.0); LYMPHOCYTE # 1.1 TH/MM3 (1.0-4.8); MEAN CELL VOLUME 80.1 FL (80.0-100.0); MEAN CORPUSCULAR HEMOGLOBIN 25.8 PG (27.0-34.0); MEAN CORPUSCULAR HGB CONC 32.2 % (32.0-36.0); MONO % 8.6 % (0.0-8.0); MONOCYTE # 0.6 TH/MM3 (0-0.9); NEUT % 71.4 % (16.0-70.0); PLATELET COUNT 316 TH/MM3 (150-450); RED BLOOD COUNT 4.29 MIL/MM3 (4.50-5.90); WHITE BLOOD COUNT 6.8 TH/MM3 (4.0-11.0)
[2017-06-08 17:31] LABS: CHLORIDE 104 MEQ/L (98-107); SODIUM (NA) 136 MEQ/L (136-145)
[2017-06-08 17:34] LABS: CALCIUM 8.3 MG/DL (8.5-10.1)
[2017-06-08 17:35] LABS: ALBUMIN 2.3 GM/DL (3.4-5.0); BICARBONATE 28.7 MEQ/L (21.0-32.0); BLOOD UREA NITROGEN 23 MG/DL (7-18); GLUCOSE,RANDOM 175 MG/DL (74-106)
[2017-06-08 17:36] LABS: INTERNATIONAL NORMALIZED RATIO 3.1 RATIO; PROTHROMBIN TIME - PATIENT 30.8 SEC (9.8-11.6)
[2017-06-08 17:38] LABS: ALT (GPT) 33 U/L (12-78); AST (GOT) 9 U/L (15-37); GLOMERULAR FILTRATION RATE 65 ML/MIN (>89)
[2017-06-08 17:39] LABS: TOTAL BILIRUBIN ADULT 0.1 MG/DL (0.2-1.0); TOTAL PROTEIN 6.4 GM/DL (6.4-8.2)
--- NOTE | 2017-06-08 17:39 | RADRPT ---
EXAM DATE/TIME: 06/08/2017 17:15 [facility] COMPARISON: CHEST SINGLE AP, November 08, 2016, 22:15. INDICATIONS : Short of breath. MEDICAL HISTORY : None. SURGICAL HISTORY : None. ENCOUNTER: Initial ACUITY: 1 day PAIN SCORE: 0/10 LOCATION: Bilateral chest FINDINGS: Cardiomegaly with mild interstitial edema. No pleural effusion, infiltrate or pneumothorax. The port ion of the bony skeleton visualized is unremarkable. CONCLUSION: Cardiomegaly with mild failure Diego Hahn MD FACR on June 08, 2017 at 17:36 Board Certified Radiologist. This report was verified electronically.
[2017-06-08 17:41] LABS: ALKALINE PHOSPHATASE 142 U/L (45-117)
[2017-06-08 17:43] LABS: TROPONIN I LESS THAN 0.02 NG/ML (0.02-0.05)
[2017-06-08] MEDS ORDERED: PAXI10TA8 PO (18:14)
[2017-06-08] MEDS ORDERED: METF750T PO (18:14)
[2017-06-08] MEDS ORDERED: FURO1TAB60 PO (18:14)
--- NOTE | 2017-06-08 18:23 | RADRPT ---
EXAM DATE/TIME: 06/08/2017 17:31 [facility] COMPARISON: No previous studies available for comparison. INDICATIONS : Bilateral lower extremity edema. MEDICAL HISTORY : Hypertension. Diabetes mellitus type 2. Pulmonary Embolism. Gout. SURGICAL HISTORY : Tonsillectomy. ENCOUNTER: Initial ACUITY: 2 weeks PAIN SCORE: 4/10 LOCATION: Bilateral legs. TECHNIQUE: Venous ultrasound of the left and right leg was performed from the inguinal ligament to the proximal calf. Real-time, color Doppler and spectral tracing, compression and augmentation techniques were us ed. FINDINGS: RIGHT LEG: There is normal compressibility of the deep venous system from the inguinal region to the proximal ca lf. No echogenic clot is seen in the lumen of the common femoral, femoral, popliteal, and posterior tibial veins. There is a normal response of the venous system to proximal and distal augmentation an d respiration. LEFT LEG: There is normal compressibility of the deep venous system from the inguinal region to the proximal ca lf. No echogenic clot is seen in the lumen of the common femoral, femoral, popliteal, and posterior tibial veins. There is a normal response of the venous system to proximal and distal augmentation an d respiration. CONCLUSION: Normal examination. Stephen Oneal MD on June 08, 2017 at 18:21 Board Certified Radiologist. This report was verified electronically.
[2017-06-08] MEDS ORDERED: FUROSEMIDE 40 MG/4 ML VIAL IV PUSH ONE (18:30)
[2017-06-08] MEDS ORDERED: NITROGLYCERIN 2% OINT 1 GM PACKET TOP ONE (18:30)
[2017-06-08] MEDS ORDERED: ASPIRIN 81 MG CHEW TAB PO ONE (18:30)
--- NOTE | 2017-06-08 19:02 | HHI.HP ---
HPI Service [facility] Hospitalists Primary Care Physician Ania Gannon MD Admission Diagnosis Chest pain, CHF, hyperkalemia, uncontrolled hypertension Chief Complaint: chest pain, edema, dyspnea Travel History International Travel<30 Days: No Contact w/Intl Traveler <30 Da: No Traveled to Known Affected Are: No History of Present Illness 47-year-old male with history of poorly controlled diabetes, PE on Coumadin, hypertension, gout, morbid obesity here for evaluation of 20-40 pound weight gain over the last 3-1/2 weeks, feeling as though his arm/leg/face are swollen, chest discomfort, shortness of breath, abdominal wall distention. The patient was seen in the emergency department on 06/03/17 when he had a spontaneously draining abscess to his left lower abdomen. He was started on Bactrim and clindamycin. Cultures grew out group B strep. He was seen by his primary care physician who stopped the Bactrim as this was causing the patient to feel sick, and increased the clindamycin. Patient still has some nausea from the clindamycin but the wound is much improved. He denies any fevers or chills. Additionally, patient reports that for the last 4 days he has been having pain in his bilateral calves that he describes as sharp, severe, constant, worse with movements. He notes pain primarily in his distal Achilles around the heel particularly worse with the first few steps he takes. No direct trauma. Different than his gout pain. He has also had intermittent substernal chest discomfort as well as feeling short of breath. He reports that the chest pain is a dull achy pain about 3 out of 10 at worst. No radiation. No jaw pain. He says he sweats easily but has not noticed increased sweating of late. He is short of breath is at rest, worse with exertion. This is somewhat chronic per outpatient chart review. 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 No orthopnea. He is on Lasix for peripheral edema. He notes that he had a problem with obesity for many years and was up to 460 pounds at his highest. He reports over the last 10 years has ranged from the 460 down to the level of around 260. He had been ranging around 310 or so but has gained back some weight as noted above. ER evaluation revealed cardiomegaly with some signs of mild failure on chest x- ray and minimally elevated BNP. He has been given IV Lasix and says that now he feels like he can urinate. He is also placed on Nitropaste for the chest pain and significant elevated systolic pressures in the low 200s. His blood pressure is now down systolically in the 130s and he feels much better overall. Review of Systems Constitutional: COMPLAINS OF: Diaphoretic episodes, Fatigue, Weight gain, DENIES: Fever, Weight loss, Chills, Dizziness, Change in appetite, Night Sweats Endocrine: DENIES: Heat/cold intolerance, Polydipsia, Polyuria, Polyphagia Eyes: DENIES: Blurred vision, Diplopia, Eye inflammation, Eye pain, Vision loss , Photosensitivity, Double Vision Ears, nose, mouth, throat: DENIES: Tinnitus, Hearing loss, Vertigo, Nasal discharge, Oral lesions, Throat pain, Hoarseness, Ear Pain, Running Nose, Epistaxis, Sinus Pain, Toothache, Odynophagia Respiratory: COMPLAINS OF: Shortness of breath, DENIES: Apneas, Cough, Snoring , Wheezing, Hemoptysis, Sputum production Cardiovascular: COMPLAINS OF: Chest pain, Dyspnea on Exertion, Lower Extremity Edema, DENIES: Palpitations, Syncope, PND, Orthopnea, Claudication Gastrointestinal: DENIES: Abdominal pain, Black stools, Bloody stools, BRB per rectum, Constipation, Diarrhea, GERD, Nausea, Reflux, Vomiting, Difficulty Swallowing, Anorexia, See HPI Musculoskeletal: COMPLAINS OF: Joint pain, Back pain Integumentary: DENIES: Abnormal pigmentation, Nail changes, Pruritus, Rash Hematologic/lymphatic: DENIES: Bruising, Lymphadenopathy Neurologic: DENIES: Abnormal gait, Headache, Localized weakness, Paresthesias, Seizures, Speech Problems, Tremor, Poor Balance Psychiatric: COMPLAINS OF: Anxiety Other Skin wound Past Family Social History Past Medical History HTN Morbid obesity DM2 Gout Abd wall abscess PE Oct 2016 Hx of recurrent MRSA skin infections Anxiety Past Surgical History Anal fissurectomy T&A Abscess drainage in groin Reported Medications It is noted that these are patient's medications that he should be taking however he has admittedly not been compliant at times with this list: Clindamycin (Clindamycin HCl) 150 Mg Cap 300 Mg PO QID Novolog Inj (Insulin Aspart) 1,000 Unit/10 Ml Vial 0 SQ DIRECTED Sliding Scale as directed. 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 [employer] Prior smoker, but stopped at age 36 Social History Lives with his significant other as they have been together for approximately 21 years No tobacco and at least 10 years and prior to that only smoked an occasional cigarette for a few years no more than 5 per day he says No alcohol use Denies illicit drug use 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 Originally from [place] Physical Exam Vital Signs Vital Signs Date Time Temp Pulse Resp B/P (MAP) Pulse Ox O2 Delivery O2 Flow Rate FiO2 06/08/17 18:27 80 16 99 Nasal Cannula 2.00 06/08/17 18:15 79 16 197/107 (137) 99 Nasal Cannula 2.00 06/08/17 18:07 79 16 197/109 (138) 99 Room Air 06/08/17 18:05 16 06/08/17 17:15 79 16 199/111 (140) 98 Nasal Cannula 2.00 06/08/17 17:05 79 16 199/111 (140) 99 Nasal Cannula 2.00 06/08/17 16:41 83 16 99 Nasal Cannula 2.00 06/08/17 16:39 16 99 Nasal Cannula 2.00 06/08/17 16:39 99 Nasal Cannula 2.00 06/08/17 16:03 99.3 83 16 204/104 (137) 97 Physical Exam GENERAL: This is a well-nourished, morbidly obese, well-developed patient, in no apparent distress. Alert and oriented. SKIN: Left groin noted for few open lesions with minimal exudative discharge. He has some hyperpigmentation of the area consistent with possible hidradenitis. HEAD: Atraumatic. Normocephalic. No temporal or scalp tenderness. Large kelly noted. EYES: Pupils equal round and reactive. Extraocular motions intact. No scleral icterus. No injection or drainage. ENT: Nose without bleeding, purulent drainage or septal hematoma. Airway patent. NECK: Trachea midline. No JVD or lymphadenopathy. Supple, nontender, no meningeal signs. No bruit. CARDIOVASCULAR: Regular rate and rhythm without murmurs, gallops, or rubs. Distant heart sounds RESPIRATORY: Clear to auscultation with some decreased breath sounds at bases. Breath sounds equal bilaterally. No wheezes, rales, or rhonchi. GASTROINTESTINAL: Abdomen soft, non-tender, moderately distended. No hepato- splenomegaly, or palpable masses. No guarding. Bowel sounds present. MUSCULOSKELETAL: Extremities without clubbing, cyanosis. 1+ edema distal lower extremities up to the knee bilaterally. No palpable cords. Tenderness to palpation over bilateral distal Achilles and calcaneus noted. Slight tenderness of distal calf over the Achilles but no kylie tenderness in calf musculature. NEUROLOGICAL: Awake and alert. Cranial nerves II through XII intact. Motor and sensory grossly within normal limits. Five out of 5 muscle strength in all muscle groups. Normal speech. Laboratory Laboratory Tests Test 06/08/17 16:30 White Blood Count 6.8 Red Blood Count 4.29 Hemoglobin 11.1 Hematocrit 34.4 Mean Corpuscular Volume 80.1 Mean Corpuscular Hemoglobin 25.8 Mean Corpuscular Hemoglobin Concent 32.2 Red Cell Distribution Width 14.0 Platelet Count 316 Mean Platelet Volume 7.0 Neutrophils (%) (Auto) 71.4 Lymphocytes (%) (Auto) 16.9 Monocytes (%) (Auto) 8.6 Eosinophils (%) (Auto) 2.5 Basophils (%) (Auto) 0.6 Neutrophils # (Auto) 4.9 Lymphocytes # (Auto) 1.1 Monocytes # (Auto) 0.6 Eosinophils # (Auto) 0.2 Basophils # (Auto) 0.0 CBC Comment DIFF FINAL Differential Comment Prothrombin Time 30.8 Prothromb Time International Ratio 3.1 Activated Partial Thromboplast Time 39.7 Blood Urea Nitrogen 23 Creatinine 1.20 Random Glucose 175 Total Protein 6.4 Albumin 2.3 Calcium Level 8.3 Alkaline Phosphatase 142 Aspartate Amino Transf (AST/SGOT) 9 Alanine Aminotransferase (ALT/SGPT) 33 Total Bilirubin 0.1 Sodium Level 136 Potassium Level 5.4 Chloride Level 104 Carbon Dioxide Level 28.7 Anion Gap 3 Estimat Glomerular Filtration Rate 65 Total Creatine Kinase 108 Creatine Kinase MB 1.3 Troponin I LESS THAN 0.02 B-Type Natriuretic Peptide 197 Date/Time Source Procedure Growth Status 06/08/17 17:15 Blood Peripheral Aerobic Blood Culture Pending Received 06/08/17 17:15 Blood Peripheral Anaerobic Blood Culture Pending Received Result Diagram: 06/08/17 1630 06/08/17 1630 Imaging Last 72 hours Impressions Chest X-Ray 06/08/17 1620 Signed Impressions: Service Date/Time: Thursday, June 08, 2017 17:15 - CONCLUSION: Cardiomegaly with mild failure Diego Hahn MD FACR Lower Extremity Ultrasound 06/08/17 0000 Signed Impressions: Service Date/Time: Thursday, June 08, 2017 17:31 - CONCLUSION: Normal examination. Stephen Oneal MD Capalbai VTE Risk Assessment Caprini VTE Risk Assessment: Mod/High Risk (score >= 2) Caprini Risk Assessment Model Point Value = 1 Point Value = 2 Point Value = 3 Point Value = 5 Age 41-60 Minor surgery BMI > 25 kg/m2 Swollen legs Varicose veins or History of unexplained or recurrent spontaneous Oral contraceptives or hormone replacement Sepsis (< 1 month) Serious lung disease, including pneumonia (< 1 month) Abnormal pulmonary function Acute myocardial infarction Congestive heart failure (< 1 month) History of inflammatory bowel disease Medical patient at bed rest Age 61-74 Arthroscopic surgery Major open surgery (> 45 min) Laparoscopic surgery (> 45 min) Malignancy Confined to bed (> 72 hours) Immobilizing plaster cast Central venous access Age >= 75 History of VTE Family history of VTE Factor V Leiden Prothrombin [id number] Lupus anticoagulant Anticardiolipin antibodies Elevated serum homocysteine Heparin-induced thrombocytopenia Other congenital or acquired thrombophilia Stroke (< 1 month) Elective arthroplasty Hip, pelvis, or leg fracture Acute spinal cord injury (< 1 month) Prophylaxis Regimen Total Risk Factor Score Risk Level Prophylaxis Regimen 0-1 Low Early ambulation 2 Moderate Order ONE of the following: *Sequential Compression Device (SCD) *Heparin 5000 units SQ BID 3-4 Higher Order ONE of the following medications: *Heparin 5000 units SQ TID *Enoxaparin/Lovenox 40 mg SQ daily (WT < 150 kg, CrCl > 30 mL/min) *Enoxaparin/Lovenox 30 mg SQ daily (WT < 150 kg, CrCl > 10-29 mL/min) *Enoxaparin/Lovenox 30 mg SQ BID (WT < 150 kg, CrCl > 30 mL/min) AND/OR *Sequential Compression Device (SCD) 5 or more Highest Order ONE of the following medications: *Heparin 5000 units SQ TID (Preferred with Epidurals) *Enoxaparin/Lovenox 40 mg SQ daily (WT < 150 kg, CrCl > 30 mL/min) *Enoxaparin/Lovenox 30 mg SQ daily (WT < 150 kg, CrCl > 10-29 mL/min) *Enoxaparin/Lovenox 30 mg SQ BID (WT < 150 kg, CrCl > 30 mL/min) AND *Sequential Compression Device (SCD) Assessment and Plan Problem List: (1) CHF (congestive heart failure) ICD Codes: I50.9 - Heart failure, unspecified Status: Acute Plan: Exacerbation possibly associated with hypertensive urgency. Patient feels much better now that his blood pressure is more normotensive. Continue current medications. Will hold off on the amlodipine and lisinopril given that he has significant peripheral edema and has a tendency toward hyperkalemia, respectively. We will check echocardiogram. Rule out from ischemic standpoint. We will have cardiology see the patient to help determine the best form of stress testing as he will be too large for the nuclear stress test equipment and will not be able to run on a treadmill at this point due to the ankle/Achilles tendinopathy. (2) Chest pain ICD Codes: R07.9 - Chest pain, unspecified Status: Acute Plan: Possibly a/w uncontrolled BP. He has multiple risk factors which appear poorly controlled. Discussed need to be more compliant and get serious about his overall health. Will r/o and likely get some form of stress test. Will have cardiology assist with determining the best approach for stress testing. (3) Uncontrolled hypertension ICD Codes: I10 - Essential (primary) hypertension Status: Chronic Plan: Pt is intermittently noncompliant with meds and has tendency to become hyperkalemic on BERNADINE-I. Current symptomatology likely a/w HTN urgency. Will increase BB, administer transdermal nitropaste. Will also provide furosemide. PRN clonidine and hopefully can get closer to target BP prior to d/c. Will be able to fine tune meds as outpt. Will hold off on Amlodipine due to his chronic edema which seems to have worsened of late when he resumed his clonidine. (4) DM (diabetes mellitus) ICD Codes: E11.9 - Type 2 diabetes mellitus without complications Status: Chronic Plan: A1c was 11 in Oct 2016. Accucheck with SSI. DM diet. Wt loss advised. (5) Anxiety ICD Codes: F41.9 - Anxiety disorder, unspecified Status: Chronic Plan: Has use Paxil as outpt. Also uses xanax sparingly as outpt. (6) Obesity ICD Codes: E66.9 - Obesity, unspecified Status: Chronic Plan: Had serious discussion re: his need to lose weight. Discussed dietary options and bariatric program as well. (7) Abscess of abdominal wall ICD Codes: L02.211 - Cutaneous abscess of abdominal wall Status: Acute Plan: has been draining on its own and improving significantly per pt. Has been on Clinda. GBS cltx results. Will continue daily wound dressing changes. Has appearance of possible hidradenitis suppurativa. (8) Pulmonary embolism ICD Codes: I26.99 - Other pulmonary embolism without acute cor pulmonale Status: Chronic Plan: Apparently dx in Oct 2016. Has intermittently been on warfarin. Needs to be compliant with med. Doubt current symptomatology associated with prior PE given that PE burden was quite small and INR is above 3 currently. Code Status full Discussed Condition With Patient, his significant other and ER provider. Problem Qualifiers (1) CHF (congestive heart failure): Qualified Codes: I50.9 - Heart failure, unspecified (2) Chest pain: Qualified Codes: R07.9 - Chest pain, unspecified (3) DM (diabetes mellitus): (4) Obesity: (5) Pulmonary embolism: Esvin Mcnally MD PhD Jun 08, 2017 19:02
[2017-06-08] MEDS ORDERED: SODIUM CHLORIDE 0.9% FLUSH 10 ML FLUSH IV FLUSH PRN (19:15)
[2017-06-08] MEDS ORDERED: ALPRAZolam 1 MG TAB PO PRN (20:00)
[2017-06-08] MEDS ORDERED: METOPROLOL TARTRATE 50 MG TAB PO SCH (20:00)
[2017-06-08] MEDS ORDERED: ONDANSETRON HCL 4 MG/2 ML VIAL IV PUSH PRN (20:00)
[2017-06-08] MEDS ORDERED: ALLO100 PO (21:04)
[2017-06-08 21:15] LABS: TROPONIN I LESS THAN 0.02 NG/ML (0.02-0.05)
[2017-06-08 21:43] LABS: BILIRUBIN, URINE NEG (NEG); BLOOD, URINE MOD (NEG); GLUCOSE,URINE NEG (NEG); KETONE, URINE NEG (NEG); NITRITE,URINE NEG (NEG); PH, URINE 5.5 (5.0-8.5); URINE COLOR YELLOW (YELLW/STRAW); URINE LEUKOCYTE ESTERASE NEG (NEG)
[2017-06-08 22:03] LABS: SQUAMOUS EPITHELIAL CELL URINE 0-5 /hpf (0-5); WBC, URINE 0-2 /hpf (0-5)
[2017-06-08] MEDS: ACETAMINOPHEN/HYDROcodone 325 MG/5 MG TAB PO PRN (22:32)
[2017-06-08] MEDS: AMOXICILLIN 875 MG TAB PO SCH (22:35)
[2017-06-08] MEDS: SODIUM CHLORIDE 0.9% FLUSH 10 ML FLUSH IV FLUSH SCH (22:36)
[2017-06-08 22:40] LABS: TROPONIN I LESS THAN 0.02 NG/ML (0.02-0.05)
[2017-06-08] MEDS: INSULIN ASPART SUPPLEMENTAL SCALE SQ SCH (22:59)
[2017-06-09] VITALS (8 sets, daily range): BP systolic 93–176; BP diastolic 54–91; PULSE 65–94; RESP 14–20; TEMP 94–98; O2SAT 88–96
[2017-06-09] MEDS: MORPHINE SULFATE 4 MG/ML INJ IV PRN ×3 (01:53→21:22)
[2017-06-09] MEDS: NITROGLYCERIN 2% OINT 1 GM PACKET TOP SCH ×2 (05:10)
[2017-06-09] MEDS: ACETAMINOPHEN/HYDROcodone 325 MG/5 MG TAB PO PRN ×2 (05:57→14:30)
[2017-06-09 06:05] LABS: CHLORIDE 104 MEQ/L (98-107); SODIUM (NA) 139 MEQ/L (136-145)
[2017-06-09 06:09] LABS: CALCIUM 8.6 MG/DL (8.5-10.1)
[2017-06-09 06:10] LABS: ALBUMIN 2.3 GM/DL (3.4-5.0); BICARBONATE 31.6 MEQ/L (21.0-32.0); BLOOD UREA NITROGEN 24 MG/DL (7-18); GLUCOSE,RANDOM 87 MG/DL (74-106)
[2017-06-09 06:13] LABS: ALT (GPT) 30 U/L (12-78); AST (GOT) 10 U/L (15-37); GLOMERULAR FILTRATION RATE 65 ML/MIN (>89)
[2017-06-09 06:14] LABS: TOTAL BILIRUBIN ADULT 0.3 MG/DL (0.2-1.0); TOTAL PROTEIN 6.3 GM/DL (6.4-8.2)
[2017-06-09 06:16] LABS: ALKALINE PHOSPHATASE 131 U/L (45-117)
[2017-06-09] MEDS: INSULIN ASPART SUPPLEMENTAL SCALE SQ SCH ×4 (08:00→21:23)
--- NOTE | 2017-06-09 08:07 | HHI.PR ---
Subjective Remarks Feeling better as far as chest pain shortness of breath this morning. Actually has no chest pain now. His main complaint seems to be the pain in his distal Achilles bilaterally but particularly on the right. He also does describe some sciatic pain in the right lower extremity. Objective Vitals Vital Signs Date Time Temp Pulse Resp B/P (MAP) Pulse Ox O2 Delivery O2 Flow Rate FiO2 06/09/17 04:00 96.5 72 20 166/82 (110) 96 06/09/17 02:00 97.5 74 20 173/90 (117) 96 06/08/17 21:35 93 21 06/08/17 21:28 97.7 75 20 144/68 (93) 97 06/08/17 21:01 06/08/17 19:33 84 18 134/71 (92) 98 Room Air 1.00 06/08/17 18:27 80 16 99 Nasal Cannula 2.00 06/08/17 18:15 79 16 197/107 (137) 99 Nasal Cannula 2.00 06/08/17 18:07 79 16 197/109 (138) 99 Room Air 06/08/17 18:05 16 06/08/17 17:15 79 16 199/111 (140) 98 Nasal Cannula 2.00 06/08/17 17:05 79 16 199/111 (140) 99 Nasal Cannula 2.00 06/08/17 16:41 83 16 99 Nasal Cannula 2.00 06/08/17 16:39 16 99 Nasal Cannula 2.00 06/08/17 16:39 99 Nasal Cannula 2.00 06/08/17 16:03 99.3 83 16 204/104 (137) 97 GENERAL: Morbidly obese, lying flat in bed, awake and alert. No acute distress. SKIN: Warm and dry. Left groin area with slightly hyperpigmented area of apparent healing abscess. No active discharge this morning. Wound healing. HEAD: Normocephalic. EYES: No scleral icterus. No injection or drainage. NECK: Supple, trachea midline. No JVD or lymphadenopathy. CARDIOVASCULAR: Regular rate and rhythm without murmurs, gallops, or rubs. RESPIRATORY: Breath sounds equal bilaterally. No accessory muscle use. No crackles. Good air movement. GASTROINTESTINAL: Abdomen soft, non-tender, nondistended. Bowel sounds noted per MUSCULOSKELETAL: No cyanosis. Trace edema about the ankles and distal lower extremities. Tenderness about the insertion and distal Achilles on the right particularly. Equivocal straight leg test on the right. BACK: Nontender without obvious deformity. Result Diagram: 06/08/17 1630 06/09/17 0540 Imaging Last 72 hours Impressions Chest X-Ray 06/08/17 1620 Signed Impressions: Service Date/Time: Thursday, June 08, 2017 17:15 - CONCLUSION: Cardiomegaly with mild failure Diego Hahn MD FACR Lower Extremity Ultrasound 06/08/17 0000 Signed Impressions: Service Date/Time: Thursday, June 08, 2017 17:31 - CONCLUSION: Normal examination. Stephen Oneal MD Urinary Catheter: No Vascular Central Line Catheter: No A/P Problem List: (1) CHF (congestive heart failure) ICD Codes: I50.9 - Heart failure, unspecified Status: Acute Plan: Exacerbation possibly associated with hypertensive urgency. Patient feels much better now that his blood pressure is more normotensive. Continue current medications. Will hold off on the amlodipine and lisinopril given that he has significant peripheral edema and has a tendency toward hyperkalemia, respectively. We will check echocardiogram. Patient has ruled out from an electrical and chemical standpoint for acute cardiac injury. Cardiology is seeing the patient this morning and will likely order a chemical stress test. Apparently our equipment can accommodate his size but will take 2 days to perform the test. (2) Chest pain ICD Codes: R07.9 - Chest pain, unspecified Status: Acute Plan: Possibly a/w uncontrolled BP. He has multiple risk factors which appear poorly controlled. Discussed need to be more compliant and get serious about his overall health. Stress testing as above. (3) Uncontrolled hypertension ICD Codes: I10 - Essential (primary) hypertension Status: Chronic Plan: Pt is intermittently noncompliant with meds and has tendency to become hyperkalemic on BERNADINE-I. Current symptomatology likely a/w HTN urgency. Will increase BB, administer transdermal nitropaste. Will also provide furosemide. PRN clonidine and hopefully can get closer to target BP prior to d/c. Will be able to fine tune meds as outpt. Will hold off on Amlodipine due to his chronic edema which seems to have worsened of late when he resumed his clonidine. (4) DM (diabetes mellitus) ICD Codes: E11.9 - Type 2 diabetes mellitus without complications Status: Chronic Plan: A1c was 11 in Oct 2016. Accucheck with SSI. DM diet. Wt loss advised. (5) Anxiety ICD Codes: F41.9 - Anxiety disorder, unspecified Status: Chronic Plan: Has use Paxil as outpt. Also uses xanax sparingly as outpt. (6) Obesity ICD Codes: E66.9 - Obesity, unspecified Status: Chronic Plan: Had serious discussion re: his need to lose weight. Discussed dietary options and bariatric program as well. (7) Abscess of abdominal wall ICD Codes: L02.211 - Cutaneous abscess of abdominal wall Status: Acute Plan: has been draining on its own and improving significantly per pt. Has been on Clinda. GBS cltx results. Will continue daily wound dressing changes. Has appearance of possible hidradenitis suppurativa. (8) Pulmonary embolism ICD Codes: I26.99 - Other pulmonary embolism without acute cor pulmonale Status: Chronic Plan: Apparently dx in Oct 2016. Has intermittently been on warfarin. Needs to be compliant with med. Doubt current symptomatology associated with prior PE given that PE burden was quite small and INR is above 3 currently. (9) Achilles tendinosis of both lower extremities ICD Codes: M76.61 - Achilles tendinitis, right leg; M76.62 - Achilles tendinitis, left leg Status: Acute Plan: PT eval for stretches. Will give injection of toradol. Xray ankles due to ttp and possible underlying small stress fractures given his significant weight. Discharge Planning Hopefully discharge home tomorrow after second portion of stress test depending on outcome and patient's progress. Problem Qualifiers (1) CHF (congestive heart failure): Qualified Codes: I50.9 - Heart failure, unspecified (2) Chest pain: Qualified Codes: R07.9 - Chest pain, unspecified (3) DM (diabetes mellitus): (4) Obesity: (5) Pulmonary embolism: Esvin Mcnally MD PhD Jun 09, 2017 08:07
--- NOTE | 2017-06-09 08:43 | RADRPT ---
EXAM DATE/TIME: 06/09/2017 08:21 [facility] COMPARISON: No previous studies available for comparison. INDICATIONS : Left ankle/heel pain with no known injury. MEDICAL HISTORY : Hypertension. Diabetes mellitus type 2. Pulmonary Embolism. Gout. SURGICAL HISTORY : Tonsillectomy. ENCOUNTER: Initial ACUITY: 1 week PAIN SCORE: 10/10 LOCATION: Left ankle/heel FINDINGS: Two view exam was performed of the left ankle. The bony structures are in normal alignment. No evid ence of fracture, dislocation. There is soft tissue swelling. Small plantar calcaneal spur. Calcific ations adjacent to the calcaneus. Vascular calcifications. No radiopaque foreign bodies are seen. Richard ny mineralization is normal. CONCLUSION: No acute fracture. Soft tissue swelling Zaire Wakefield MD on June 09, 2017 at 8:40 Board Certified Radiologist. This report was verified electronically.
[2017-06-09] MEDS ORDERED: hydrALAZINE HCL 25 MG TAB PO PRN (08:45)
[2017-06-09] MEDS: AMOXICILLIN 875 MG TAB PO SCH ×2 (08:45→21:20)
[2017-06-09] MEDS: PARoxetine HCL 20 MG TAB PO SCH (08:45)
--- NOTE | 2017-06-09 08:45 | PD.CONS ---
HPI Consult Requested By Primary Care Physician Ania Gannon MD History of Present Illness 47-year-old gentleman with history of poorly controlled diabetes, hypertension, dyslipidemia with hypertriglyceridemia predominance, PE on Coumadin, paroxysmal atrial fibrillation and morbid obesity admitted for observation on 06/08/17 with a complaint of progressive weight gain of 20-40 pounds over the past few weeks with a sensation of swollen arms and legs for the past week, dyspnea and anterior chest wall pain. Describes his chest pain as overlying the right sternal border, nonexertional, 3 /10 in intensity, a dull achy sensation, intermittent since 06/07 evening. Last episode was last night. Discomfort is nonradiating, non-positional, nonpleuritic in nature. He has no history of myocardial infarction or established coronary artery disease. Chest x-ray revealed pulmonary vascular congestion and she was noted to have mildly elevated BNP of 197. He presents on furosemide 40 mg daily as an outpatient. He was provided a single dose of 40 mg IV furosemide with significant urine output and improvement in dyspnea. SBP on arrival was in the low 200s and he was provided Nitropaste. Due to lower extremity edema and elevated potassium home lisinopril and amlodipine were withheld. Chief complaint at this time is bilateral lower extremity pains in the thighs and calves. Bilateral lower extremity duplex ultrasound was negative for DVT. Has no further chest discomfort or dyspnea. Currently is laying flat and breathing comfortably. He is a lifelong non-smoker and consumes no alcoholic beverages. His weight has been fluctuating throughout the years. Previously at 460 pounds he lost approximately 200 pounds with diet and exercise until 2 years ago when he started gaining weight back when he stopped exercising. He previously had been diagnosed with paroxysmal atrial fibrillation which was treated by Dr. Amos with digoxin however at this juncture is no longer on antiarrhythmic therapy and has not had atrial fibrillation in some time. He recently has a hospital evaluation for a left lower abdominal draining abscess for which she was treated with antibiotics. Review of Systems 10 point review of systems negative other than noted in the HPI Past Family Social History Allergies: Coded Allergies: codeine (Verified Allergy, Severe, Itching, 06/08/17) clonidine (Unverified Adverse Reaction, Severe, ARNDT, dry mouth, "felt drunk ", 06/08/17) Past Medical History HTN Paroxysmal atrial fibrillation initially diagnosed in his 20s Morbid obesity DM2 Gout Abd wall abscess PE Oct 2016 Hx of recurrent MRSA skin infections Anxiety Past Surgical History Anal fissurectomy T&A Abscess drainage in groin Reported Medications Reported Meds & Active Scripts Active Clindamycin (Clindamycin HCl) 150 Mg Cap 300 Mg PO QID Novolog Inj (Insulin Aspart) 1,000 Unit/10 Ml Vial 0 SQ DIRECTED Sliding Scale as directed. Norvasc (Amlodipine Besylate) 5 Mg Tab 5 Mg PO DAILY 30 Days Coumadin (Warfarin) 7.5 Mg Tab 7.5 Mg PO DAILY@1600 30 Days Metoprolol Tartrate 50 Mg Tab 50 Mg PO BID Reported Zyloprim (Allopurinol) 100 Mg Tab 100 Mg PO DAILY Paxil (Paroxetine HCl) 10 Mg Tab 10 Mg PO DAILY Lasix (Furosemide) 40 Mg Tab 40 Mg PO DAILY Metformin ER (Metformin HCl) 750 Mg L[place] 750 Mg PO BID With evening meal Xanax (Alprazolam) 1 Mg Tab 1 Mg PO Q8H PRN Lisinopril 20 Mg Tab 20 Mg PO DAILY Active Ordered Medications Current Medications Medications (Trade) Dose Ordered Sig/Nara Route Start Time Stop Time Status Last Admin (NS Flush) 2 ml UNSCH PRN IVF 06/08/17 16:30 06/08/17 17:26 (Xanax) 1 mg Q8H PRN PO 06/08/17 20:00 (Lasix) 40 mg DAILY PO 06/09/17 09:00 (Coumadin) 7.5 mg DAILY@1600 PO 06/09/17 16:00 (Paxil) 10 mg DAILY PO 06/09/17 09:00 (NovoLOG SUPPLEMENTAL SCALE) 1 ACHS SLIDING SCALE SQ 06/08/17 21:00 06/08/17 22:59 (NS Flush) 2 ml UNSCH PRN IV FLUSH 06/08/17 19:15 (NS Flush) 2 ml BID IV FLUSH 06/08/17 21:00 06/08/17 22:36 (Zofran Inj) 4 mg Q6H PRN IV PUSH 06/08/17 20:00 (Lopressor) 100 mg Q12H PO 06/08/17 20:00 06/08/17 19:31 (Nitroglycerin 2% Oint) 1 inch Q6HR TOP 4/19/18 00:00 (Aspirin) 325 mg DAILY PO 06/09/17 09:00 (Trimox) 875 mg Q12HR PO 06/08/17 21:00 06/08/17 22:35 ([place] 5-325 Mg) 1 tab Q4H PRN PO 06/08/17 23:00 06/09/17 05:57 (Morphine Inj) 4 mg Q4H PRN IV 06/09/17 01:45 06/09/17 01:53 (Toradol Inj) 30 mg ONCE ONCE IV PUSH 06/09/17 08:15 06/09/17 08:16 UNV Family History Mother of congestive heart failure age 75 Patient did not know his father Social History Lifelong non-smoker. No significant alcohol consumption. No routine exercise regimen. 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 Physical Exam Vital Signs Vital Signs Date Time Temp Pulse Resp B/P (MAP) Pulse Ox O2 Delivery O2 Flow Rate FiO2 06/09/17 08:03 95 21 06/09/17 04:00 96.5 72 20 166/82 (110) 96 06/09/17 02:00 97.5 74 20 173/90 (117) 96 06/08/17 21:35 93 21 06/08/17 21:28 97.7 75 20 144/68 (93) 97 06/08/17 21:01 06/08/17 19:33 84 18 134/71 (92) 98 Room Air 1.00 06/08/17 18:27 80 16 99 Nasal Cannula 2.00 06/08/17 18:15 79 16 197/107 (137) 99 Nasal Cannula 2.00 06/08/17 18:07 79 16 197/109 (138) 99 Room Air 06/08/17 18:05 16 06/08/17 17:15 79 16 199/111 (140) 98 Nasal Cannula 2.00 06/08/17 17:05 79 16 199/111 (140) 99 Nasal Cannula 2.00 06/08/17 16:41 83 16 99 Nasal Cannula 2.00 06/08/17 16:39 16 99 Nasal Cannula 2.00 06/08/17 16:39 99 Nasal Cannula 2.00 06/08/17 16:03 99.3 83 16 204/104 (137) 97 Physical Exam GENERAL: Morbidly obese. In no acute distress. NECK: Thick, unable to evaluate JVP CARDIOVASCULAR: Regular rate and rhythm. No murmur appreciated. RESPIRATORY: No accessory muscle use. Clear to auscultation. Breath sounds equal bilaterally. MUSCULOSKELETAL: No clubbing or cyanosis. No edema. NEUROLOGICAL: Awake and alert. Normal speech. Laboratory Laboratory Tests Test 06/08/17 16:30 06/08/17 20:39 06/08/17 21:34 06/08/17 22:05 White Blood Count 6.8 Red Blood Count 4.29 Hemoglobin 11.1 Hematocrit 34.4 Mean Corpuscular Volume 80.1 Mean Corpuscular Hemoglobin 25.8 Mean Corpuscular Hemoglobin Concent 32.2 Red Cell Distribution Width 14.0 Platelet Count 316 Mean Platelet Volume 7.0 Neutrophils (%) (Auto) 71.4 Lymphocytes (%) (Auto) 16.9 Monocytes (%) (Auto) 8.6 Eosinophils (%) (Auto) 2.5 Basophils (%) (Auto) 0.6 Neutrophils # (Auto) 4.9 Lymphocytes # (Auto) 1.1 Monocytes # (Auto) 0.6 Eosinophils # (Auto) 0.2 Basophils # (Auto) 0.0 CBC Comment DIFF FINAL Differential Comment Prothrombin Time 30.8 Prothromb Time International Ratio 3.1 Activated Partial Thromboplast Time 39.7 Blood Urea Nitrogen 23 Creatinine 1.20 Random Glucose 175 Total Protein 6.4 Albumin 2.3 Calcium Level 8.3 Alkaline Phosphatase 142 Aspartate Amino Transf (AST/SGOT) 9 Alanine Aminotransferase (ALT/SGPT) 33 Total Bilirubin 0.1 Sodium Level 136 Potassium Level 5.4 Chloride Level 104 Carbon Dioxide Level 28.7 Anion Gap 3 Estimat Glomerular Filtration Rate 65 Total Creatine Kinase 108 99 93 Creatine Kinase MB 1.3 Troponin I LESS THAN 0.02 LESS THAN 0.02 LESS THAN 0.02 B-Type Natriuretic Peptide 197 Urine Color YELLOW Urine Turbidity CLEAR Urine pH 5.5 Urine Specific [place] 1.020 Urine Protein 100 Urine Glucose (UA) NEG Urine Ketones NEG Urine Occult Blood MOD Urine Nitrite NEG Urine Bilirubin NEG Urine Urobilinogen 0.2 Urine Leukocyte Esterase NEG Urine RBC 4-9 Urine WBC 0-2 Urine Squamous Epithelial Cells 0-5 Urine Bacteria NONE Microscopic Urinalysis Comment CULT NOT INDICATED Test 06/09/17 05:40 Blood Urea Nitrogen 24 Creatinine 1.20 Random Glucose 87 Total Protein 6.3 Albumin 2.3 Calcium Level 8.6 Alkaline Phosphatase 131 Aspartate Amino Transf (AST/SGOT) 10 Alanine Aminotransferase (ALT/SGPT) 30 Total Bilirubin 0.3 Sodium Level 139 Potassium Level 4.9 Chloride Level 104 Carbon Dioxide Level 31.6 Anion Gap 3 Estimat Glomerular Filtration Rate 65 B-Type Natriuretic Peptide 122 Date/Time Source Procedure Growth Status 06/08/17 17:15 Blood Peripheral Aerobic Blood Culture Pending Received 06/08/17 17:15 Blood Peripheral Anaerobic Blood Culture Pending Received Result Diagram: 06/08/17 1630 06/09/17 0540 Imaging Last 72 hours Impressions Chest X-Ray 06/08/17 1620 Signed Impressions: Service Date/Time: Thursday, June 08, 2017 17:15 - CONCLUSION: Cardiomegaly with mild failure Diego Hahn MD FACR Lower Extremity Ultrasound 06/08/17 0000 Signed Impressions: Service Date/Time: Thursday, June 08, 2017 17:31 - CONCLUSION: Normal examination. Stephen Oneal MD Assessment and Plan Assessment and Plan 1. Mild decompensated congestive heart failure: -Increase Lasix to 40 mg IV twice daily while inpatient -May discontinue Nitropaste -Resume lisinopril at lower dose 10 mg daily due to prior relative hyperkalemia -Echocardiogram today #2. Atypical chest pain: -Lexiscan stress test today -Aspirin 81 mg daily #3 dyslipidemia: -Repeat lipid profile -Start atorvastatin 40 mg nightly #4. Paroxysmal atrial fibrillation: -Currently in normal sinus rhythm. He is on chronic anticoagulation therapy for known history of PE #5. Hypertension: -Currently uncontrolled. -Diuretic therapy as above -Resume amlodipine 5 mg daily. Resume lisinopril at 10 mg daily (lower dose than prior outpatient dose). Change metoprolol to carvedilol 12.5 mg twice daily. Hydralazine 25 mg p.o. every 8 hours as needed SBP> 160 Arnaldo Hirsch DO Jun 09, 2017 08:45
[2017-06-09] MEDS: SODIUM CHLORIDE 0.9% FLUSH 10 ML FLUSH IV FLUSH SCH ×2 (08:47→21:19)
[2017-06-09] MEDS: ASPIRIN EC 81 MG TABEC PO SCH (08:55)
[2017-06-09] MEDS: FUROSEMIDE 40 MG/4 ML VIAL IV PUSH SCH ×2 (08:55→16:36)
[2017-06-09] MEDS ORDERED: KETOROLAC TROMETHAMINE 30 MG/ML (IVP) VIAL IV PUSH ONE (09:00)
[2017-06-09] MEDS ORDERED: ASPIRIN 325 MG TAB PO SCH (09:00)
[2017-06-09] MEDS ORDERED: FUROSEMIDE 40 MG TAB PO SCH (09:00)
[2017-06-09] MEDS ORDERED: FUROSEMIDE 40 MG TAB PO PRN (09:00)
[2017-06-09] MEDS: CARVEDILOL 12.5 MG TAB PO SCH ×2 (09:01→21:20)
[2017-06-09] MEDS: amLODIPine BESYLATE 5 MG TAB PO SCH (09:02)
[2017-06-09] MEDS: LISINOPRIL 10 MG TAB PO SCH (09:02)
[2017-06-09 10:18] LABS: INTERNATIONAL NORMALIZED RATIO 2.6 RATIO; PROTHROMBIN TIME - PATIENT 26.3 SEC (9.8-11.6)
--- NOTE | 2017-06-09 12:48 | RADRPT ---
EXAM DATE/TIME: 06/09/2017 08:21 [facility] COMPARISON: ANKLE LEFT LIMITED (AP&LAT), June 09, 2017, 8:21. INDICATIONS : Right ankle pain with no known injury. MEDICAL HISTORY : Hypertension. Diabetes mellitus type 2. Pulmonary Embolism. Gout. SURGICAL HISTORY : Tonsillectomy. ENCOUNTER: Initial ACUITY: 1 week PAIN SCORE: 10/10 LOCATION: Right FINDINGS: AP and lateral views of the right ankle demonstrate no fracture or dislocation. Ankle mortise appears intact. Mineralization is normal. There are enthesophytes at the posterior and plantar aspect of the calcaneus. There is subcutaneous edema in the distal leg and ankle. No radiopaque foreign body is se en. CONCLUSION: No acute osseous right ankle abnormality is identified. There is subcutaneous edema and swelling arou nd the ankle joint. Stephen Torres MD on June 09, 2017 at 12:45 Board Certified Radiologist. This report was verified electronically.
--- NOTE | 2017-06-09 13:36 | EKG ---
Date Performed: 06/08/2017 Time Performed: 16:31:50 PTAGE: 47 years EKG: Sinus rhythm NORMAL ECG Since the PREVIOUS TRACING , no significant change noted PREVIOUS TRACIN11/10/2016 21.48 DOCTOR: Rusty Paez Interpretating Date/Time 06/09/2017 13:34:28
--- NOTE | 2017-06-09 13:36 | EKG ---
Date Performed: 06/08/2017 Time Performed: 19:23:48 PTAGE: 47 years EKG: Sinus rhythm NORMAL ECG Since the PREVIOUS TRACING , no significant change noted PREVIOUS TRACIN06/08/2017 16.31 DOCTOR: Rusty Paez Interpretating Date/Time 06/09/2017 13:34:36
--- NOTE | 2017-06-09 13:37 | EKG ---
Date Performed: 06/08/2017 Time Performed: 22:03:02 PTAGE: 47 years EKG: Sinus rhythm NORMAL ECG Since the PREVIOUS TRACING , no significant change noted PREVIOUS TRACIN06/08/2017 19.23 DOCTOR: Rusty Paez Interpretating Date/Time 06/09/2017 13:34:45
--- NOTE | 2017-06-09 15:06 | ECHRPT ---
Indication: Chest pain CONCLUSIONS Moderately dilated left ventricle. Mild concentric left ventricular hypertrophy. The left ventricular systolic function is low normal with an estimated ejection fraction in the rang e of 50%. BP: / HR: Rhythm: MEASUREMENTS (Male / Female) Normal Values Technical Quality: 2D ECHO LV Diastolic Diameter PLAX 5.5 cm 4.2 - 5.9 / 3.9 - 5.3 cm LV Systolic Diameter PLAX 4.2 cm IVS Diastolic Thickness 1.4 cm 0.6 - 1.0 / 0.6 - 0.9 cm LVPW Diastolic Thickness 1.1 cm 0.6 - 1.0 / 0.6 - 0.9 cm LV Relative Wall Thickness 0.5 LA Systolic Diameter LX 3.2 cm 3.0 - 4.0 / 2.7 - 3.8 cm DOPPLER Mitral E Point Velocity 83.9 cm/s Mitral A Point Velocity 71.1 cm/s Mitral E to A Ratio 1.2 TR Peak Velocity 240.0 cm/s TR Peak Gradient 23.0 mmHg FINDINGS LEFT VENTRICLE Moderately dilated left ventricle. Mild concentric left ventricular hypertrophy. The left ventricular systolic function is low normal with an estimated ejection fraction in the rang e of 50%. RIGHT VENTRICLE Normal right ventricular size and systolic function. LEFT ATRIUM The left atrial size is normal. RIGHT ATRIUM The right atrial size is normal. ATRIAL SEPTUM Normal atrial septal thickness without atrial level shunting by limited color doppler interrogation. AORTA The aortic root and proximal ascending aorta are normal in size on limited imaging. MITRAL VALVE Structurally normal mitral valve. No mitral valve stenosis or regurgitation. AORTIC VALVE Trileaflet aortic valve. No aortic valve stenosis or regurgitation. TRICUSPID VALVE Structurally normal tricuspid valve. No tricuspid valve stenosis or regurgitation. PULMONARY VALVE The pulmonary valve is not well visualized. VESSELS The inferior vena cava is normal in size. PERICARDIUM No pericardial effusion. Alec Morrison MD, FACC, [facility] [place] (Electronically Signed) Final Date:09 June 2017 15:04
[2017-06-09] MEDS: WARFARIN SOD 7.5 MG TAB PO SCH (16:18)
[2017-06-09 17:52] LABS: HEMOGLOBIN A1C 10.6 % (4.3-6.0)
[2017-06-09] MEDS ORDERED: ATORVASTATIN 40 MG TAB PO SCH (21:00)
[2017-06-10] VITALS (7 sets, daily range): BP systolic 143–185; BP diastolic 85–100; PULSE 67–78; RESP 16–20; TEMP 96.2–97; O2SAT 95–97
[2017-06-10] MEDS: MORPHINE SULFATE 4 MG/ML INJ IV PRN ×4 (02:22→17:18)
--- NOTE | 2017-06-10 06:19 | HHI.PR ---
Subjective Remarks Overall feeling better. Has been urinating quite frequently since about 2 AM. Still with some pain in the right ankle/heel area but that too has improved. Objective Vitals Vital Signs Date Time Temp Pulse Resp B/P (MAP) Pulse Ox O2 Delivery O2 Flow Rate FiO2 06/10/17 04:00 96.4 76 20 160/100 (120) 95 06/10/17 00:30 179/86 (117) 06/10/17 00:00 96.2 67 20 185/92 (123) 97 06/09/17 20:02 94 21 06/09/17 20:00 97.7 74 20 176/86 (116) 95 06/09/17 20:00 66 06/09/17 16:00 98.0 65 16 173/91 (118) 96 06/09/17 12:00 96.0 93 15 93/54 (67) 95 06/09/17 08:03 95 21 06/09/17 08:00 97.0 94 14 168/81 (110) 94 GENERAL: Sleeping, arouses to voice, no acute distress. Obese. SKIN: Warm and dry. Left groin area with drying slightly hyperpigmented area with few surface wounds. No discharge or oozing today. No induration. HEAD: Normocephalic. EYES: No scleral icterus. No injection or drainage. NECK: Supple, trachea midline. No JVD or lymphadenopathy. CARDIOVASCULAR: Regular rate and rhythm without murmurs, gallops, or rubs. RESPIRATORY: Breath sounds equal bilaterally. No accessory muscle use. GASTROINTESTINAL: Abdomen soft, non-tender, nondistended. No guarding or rebound. Bowel sounds normal. MUSCULOSKELETAL: No cyanosis. Trace to 1+ edema bilateral distal lower extremities. Moves all extremities. Slight tenderness palpation over the distal right Achilles insertion and bilateral heels but improved. BACK: No CVA tenderness. Result Diagram: 06/08/17 1630 06/09/17 0540 Imaging Last 72 hours Impressions Chest X-Ray 06/08/17 1620 Signed Impressions: Service Date/Time: Thursday, June 08, 2017 17:15 - CONCLUSION: Cardiomegaly with mild failure Diego Hahn MD FACR Lower Extremity Ultrasound 06/08/17 0000 Signed Impressions: Service Date/Time: Wednesday, June 08, 2017 17:31 - CONCLUSION: Normal examination. Stephen Oneal MD Urinary Catheter: No Vascular Central Line Catheter: No A/P Problem List: (1) CHF (congestive heart failure) ICD Codes: I50.9 - Heart failure, unspecified Status: Acute Plan: Exacerbation possibly associated with hypertensive urgency. Patient feels much better now that his blood pressure is more normotensive. Continue current medications. Appreciate cardiology input. Blood pressure better controlled with current meds. Encourage compliance with medication and diet. Second portion of stress test to be done today. (2) Chest pain ICD Codes: R07.9 - Chest pain, unspecified Status: Acute Plan: Possibly a/w uncontrolled BP. He has multiple risk factors which appear poorly controlled. Discussed need to be more compliant and get serious about his overall health. Second portion of stress test today. No more chest pain presently. (3) Uncontrolled hypertension ICD Codes: I10 - Essential (primary) hypertension Status: Chronic Plan: Pt is intermittently noncompliant with meds and has tendency to become hyperkalemic on BERNADINE-I. We will place him on increased dose of furosemide AND try low-dose BERNADINE inhibitor. We will need to follow blood pressure and potassium levels. Appreciate cardiology input. (4) DM (diabetes mellitus) ICD Codes: E11.9 - Type 2 diabetes mellitus without complications Status: Chronic Plan: A1c was 11 in Oct 2016 and is currently 10.6. Accucheck with SSI. DM diet. Wt loss advised. Sugars respond to dietary restriction as noted during his current hospital stay. I have strongly encouraged dietary and medicinal compliance. Will likely discharge home on glimepiride and metformin with strict instructions to follow- up with primary care physician as outpatient. (5) Anxiety ICD Codes: F41.9 - Anxiety disorder, unspecified Status: Chronic Plan: Has use Paxil as outpt. Also uses xanax sparingly as outpt. (6) Obesity ICD Codes: E66.9 - Obesity, unspecified Status: Chronic Plan: Had serious discussion re: his need to lose weight. Discussed dietary options and bariatric program as well. (7) Abscess of abdominal wall ICD Codes: L02.211 - Cutaneous abscess of abdominal wall Status: Acute Plan: has been draining on its own and improving significantly per pt. Has been on Clinda. GBS cltx results. Will use topical mupirocin. Will continue daily wound dressing changes. Has appearance of possible hidradenitis suppurativa. (8) Pulmonary embolism ICD Codes: I26.99 - Other pulmonary embolism without acute cor pulmonale Status: Chronic Plan: Apparently dx in Oct 2016. Has intermittently been on warfarin. Needs to be compliant with med. Doubt current symptomatology associated with prior PE given that PE burden was quite small and INR is above 3 currently. (9) Achilles tendinosis of both lower extremities ICD Codes: M76.61 - Achilles tendinitis, right leg; M76.62 - Achilles tendinitis, left leg Status: Acute Plan: PT eval for stretches. Somewhat improved today. Give 1 injection of Solu-Medrol. Discharge Planning Hopefully discharge home later today. Problem Qualifiers (1) CHF (congestive heart failure): Qualified Codes: I50.9 - Heart failure, unspecified (2) Chest pain: Qualified Codes: R07.9 - Chest pain, unspecified (3) DM (diabetes mellitus): (4) Obesity: (5) Pulmonary embolism: Esvin Mcnally MD PhD Jun 10, 2017 06:19
[2017-06-10] MEDS ORDERED: methylPREDNISolone SOD SUCC 40 MG/1 ML VIAL IV PUSH ONE (06:30)
[2017-06-10 06:37] LABS: PROTHROMBIN TIME - PATIENT 19.8 SEC (9.8-11.6)
[2017-06-10 06:45] LABS: BICARBONATE 32.3 MEQ/L (21.0-32.0); CALCIUM 8.8 MG/DL (8.5-10.1)
[2017-06-10 06:48] LABS: CREATININE 1.2 MG/DL (0.60-1.30)
[2017-06-10] MEDS: ASPIRIN EC 81 MG TABEC PO SCH (08:28)
[2017-06-10] MEDS: INSULIN ASPART SUPPLEMENTAL SCALE SQ SCH ×3 (08:28→17:17)
[2017-06-10] MEDS: PARoxetine HCL 20 MG TAB PO SCH (08:29)
[2017-06-10] MEDS: AMOXICILLIN 875 MG TAB PO SCH (08:29)
[2017-06-10] MEDS: CARVEDILOL 12.5 MG TAB PO SCH (08:29)
[2017-06-10] MEDS: LISINOPRIL 10 MG TAB PO SCH (08:29)
[2017-06-10] MEDS ORDERED: MUPIROCIN 2% CREAM 15 GM TOPICAL SCH (09:00)
[2017-06-10] MEDS ORDERED: REGADENOSON INJ 0.4 MG/5 ML SYR IV ONE (09:17)
[2017-06-10] MEDS ORDERED: HYDR-3516 PO (09:28)
[2017-06-10] MEDS ORDERED: AMOX875T PO (09:28)
[2017-06-10] MEDS ORDERED: LISI10TA3 PO (09:28)
[2017-06-10] MEDS ORDERED: HYDR-3799 PO (09:28)
[2017-06-10] MEDS ORDERED: WARF-20 PO (09:28)
[2017-06-10] MEDS ORDERED: CARV12.5 PO (09:28)
[2017-06-10] MEDS ORDERED: ATOR40TA16 PO (09:28)
[2017-06-10] MEDS ORDERED: MUPI2%T TOPICAL (09:28)
[2017-06-10] MEDS ORDERED: ECASA81 PO (09:28)
[2017-06-10] MEDS ORDERED: FURO1TAB60 PO (09:28)
--- NOTE | 2017-06-10 09:36 | HHI.DS ---
Discharge Summary Admission Date Jun 08, 2017 at 18:35 Discharge Date: Jun 10, 2017 Admitting Diagnosis Chest pain, CHF, hyperkalemia, uncontrolled hypertension (1) CHF (congestive heart failure) Diagnosis: Principal ICD Codes: I50.9 - Heart failure, unspecified Status: Acute (2) Chest pain Diagnosis: Principal ICD Codes: R07.9 - Chest pain, unspecified Status: Acute (3) Uncontrolled hypertension Diagnosis: Principal ICD Codes: I10 - Essential (primary) hypertension Status: Chronic (4) DM (diabetes mellitus) Diagnosis: Secondary ICD Codes: E11.9 - Type 2 diabetes mellitus without complications Status: Chronic (5) Anxiety Diagnosis: Secondary ICD Codes: F41.9 - Anxiety disorder, unspecified Status: Chronic (6) Obesity Diagnosis: Secondary ICD Codes: E66.9 - Obesity, unspecified Status: Chronic (7) Abscess of abdominal wall Diagnosis: Secondary ICD Codes: L02.211 - Cutaneous abscess of abdominal wall Status: Acute (8) Pulmonary embolism Diagnosis: Secondary ICD Codes: I26.99 - Other pulmonary embolism without acute cor pulmonale Status: Chronic (9) Achilles tendinosis of both lower extremities Diagnosis: Secondary ICD Codes: M76.61 - Achilles tendinitis, right leg; M76.62 - Achilles tendinitis, left leg Status: Acute Consultants Dr Arnaldo Hirsch, Cardiology Brief History 47-year-old male with history of poorly controlled diabetes, PE on Coumadin, hypertension, gout, morbid obesity here for evaluation of 20-40 pound weight gain over the last 3-1/2 weeks, feeling as though his arm/leg/face are swollen, chest discomfort, shortness of breath, abdominal wall distention. The patient was seen in the emergency department on 06/03/17 when he had a spontaneously draining abscess to his left lower abdomen. He was started on Bactrim and clindamycin. Cultures grew out group B strep. He was seen by his primary care physician who stopped the Bactrim as this was causing the patient to feel sick, and increased the clindamycin. Patient still has some nausea from the clindamycin but the wound is much improved. He denies any fevers or chills. Additionally, patient reports that for the last 4 days he has been having pain in his bilateral calves that he describes as sharp, severe, constant, worse with movements. He notes pain primarily in his distal Achilles around the heel particularly worse with the first few steps he takes. No direct trauma. Different than his gout pain. He has also had intermittent substernal chest discomfort as well as feeling short of breath. He reports that the chest pain is a dull achy pain about 3 out of 10 at worst. No radiation. No jaw pain. He says he sweats easily but has not noticed increased sweating of late. He is short of breath is at rest, worse with exertion. This is somewhat chronic per outpatient chart review. 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 No orthopnea. He is on Lasix for peripheral edema. He notes that he had a problem with obesity for many years and was up to 460 pounds at his highest. He reports over the last 10 years has ranged from the 460 down to the level of around 260. He had been ranging around 310 or so but has gained back some weight as noted above. ER evaluation revealed cardiomegaly with some signs of mild failure on chest x- ray and minimally elevated BNP. He has been given IV Lasix and says that now he feels like he can urinate. He is also placed on Nitropaste for the chest pain and significant elevated systolic pressures in the low 200s. His blood pressure is now down systolically in the 130s and he feels much better overall. CBC/BMP: 06/08/17 1630 06/10/17 0605 Significant Findings Laboratory Tests Test 06/08/17 16:30 06/08/17 20:39 06/08/17 21:34 06/08/17 22:05 Red Blood Count 4.29 MIL/MM3 (4.50-5.90) Hemoglobin 11.1 GM/DL (13.0-17.0) Hematocrit 34.4 % (39.0-51.0) Mean Corpuscular Hemoglobin 25.8 PG (27.0-34.0) Neutrophils (%) (Auto) 71.4 % (16.0-70.0) Monocytes (%) (Auto) 8.6 % (0.0-8.0) Prothrombin Time 30.8 SEC (9.8-11.6) Activated Partial Thromboplast Time 39.7 SEC (24.3-30.1) Blood Urea Nitrogen 23 MG/DL (7-18) Random Glucose 175 MG/DL (74-106) Albumin 2.3 GM/DL (3.4-5.0) Calcium Level 8.3 MG/DL (8.5-10.1) Alkaline Phosphatase 142 U/L (45-117) Aspartate Amino Transf (AST/SGOT) 9 U/L (15-37) Total Bilirubin 0.1 MG/DL (0.2-1.0) Potassium Level 5.4 MEQ/L (3.5-5.1) Anion Gap 3 MEQ/L (5-15) Estimat Glomerular Filtration Rate 65 ML/MIN (>89) Troponin I LESS THAN 0.02 NG/ML LESS THAN 0.02 NG/ML LESS THAN 0.02 NG/ML B-Type Natriuretic Peptide 197 PG/ML (0-100) Urine Protein 100 mg/dL (NEG-TRACE) Urine Occult Blood MOD (NEG) Urine RBC 4-9 /hpf (0-3) Hemoglobin A1c 10.6 % (4.3-6.0) Test 06/09/17 05:40 06/10/17 06:05 Prothrombin Time 26.3 SEC (9.8-11.6) 19.8 SEC (9.8-11.6) Blood Urea Nitrogen 24 MG/DL (7-18) 27 MG/DL (7-18) Total Protein 6.3 GM/DL (6.4-8.2) Albumin 2.3 GM/DL (3.4-5.0) Alkaline Phosphatase 131 U/L (45-117) Aspartate Amino Transf (AST/SGOT) 10 U/L (15-37) Anion Gap 3 MEQ/L (5-15) 3 MEQ/L (5-15) Estimat Glomerular Filtration Rate 65 ML/MIN (>89) 65 ML/MIN (>89) B-Type Natriuretic Peptide 122 PG/ML (0-100) Random Glucose 157 MG/DL (74-106) Potassium Level 5.2 MEQ/L (3.5-5.1) Carbon Dioxide Level 32.3 MEQ/L (21.0-32.0) Imaging Last 72 hours Impressions Myocardial Perfusion Scan Nuc Med 06/09/17 0000 Signed Impressions: Service Date/Time: May 10:09 - CONCLUSION: Moderate size moderate severity reversible right coronary territory perfusion abnormality. Mild LV dysfunction. RISK CATEGORY: Intermediate (1-3%% Annual Mortality Rate) Stephen Oneal MD Ankle X-Ray 06/09/17 0000 Signed Impressions: Service Date/Time: May 08:21 - CONCLUSION: No acute fracture. Soft tissue swelling Zaire Wakefield MD Ankle X-Ray 06/09/17 0000 Signed Impressions: Service Date/Time: May 08:21 - CONCLUSION: No acute osseous right ankle abnormality is identified. There is subcutaneous edema and swelling around the ankle joint. Stephen Torres MD Chest X-Ray 06/08/17 1620 Signed Impressions: Service Date/Time: Thursday, June 08, 2017 17:15 - CONCLUSION: Cardiomegaly with mild failure Diego Hahn MD FACR Lower Extremity Ultrasound 06/08/17 0000 Signed Impressions: Service Date/Time: Thursday, June 08, 2017 17:31 - CONCLUSION: Normal examination. Stephen Oneal MD Last 72 hours Impressions Ankle X-Ray 06/09/17 0000 Signed Impressions: Service Date/Time: May 08:21 - CONCLUSION: No acute fracture. Soft tissue swelling Zaire Wakefield MD Ankle X-Ray 06/09/17 0000 Signed Impressions: Service Date/Time: May 08:21 - CONCLUSION: No acute osseous right ankle abnormality is identified. There is subcutaneous edema and swelling around the ankle joint. Stephen Torres MD Chest X-Ray 06/08/17 1620 Signed Impressions: Service Date/Time: Thursday, June 08, 2017 17:15 - CONCLUSION: Cardiomegaly with mild failure Diego Hahn MD FACR Lower Extremity Ultrasound 06/08/17 0000 Signed Impressions: Service Date/Time: Thursday, June 08, 2017 17:31 - CONCLUSION: Normal examination. Stephen Oneal MD Hospital Course Pt presented for eval of CP/SOB/edema. ER w/u consistent with mild CHF and hypertensive urgency. Pt was diuresed and r/o for ACS. Echo noted for EF 50% and concentric hypertrophy. Cardiology consulted and nuclear stress test performed (2 series due to pt body habitus). Stress test revealed Moderate size moderate severity reversible right coronary territory perfusion abnormality. Mild LV dysfunction. RISK CATEGORY: Intermediate (1-3% Annual Mortality Rate) BP values improved with addition of BB, BERNADINE-I, furosemide. Will need to watch K + levels closely. He was CP free on day of d/c. DM has been poorly controlled, but responds to dietary intervention as demonstrated by sugar values in hospital. Will be d/c on metformin and glimepiride. Strongly encouraged wt loss and close f/u with his PCP. Pt c/o BLE pain/edema. this was noted primarily around right Achilles and bilat heels. Will try home exercises, ice to area and wt loss. Improved with toradol injection. His left groin cellulitis/abscess actually appears c/w hydradenitis. Wounds clearing. Will continue amoxil as GBS isolated and use topical mupirocin. He may need surgical eval in future if this continues to be an issue. Pt Condition on Discharge: Stable Discharge Disposition: Discharge Home Discharge Instructions DIET: Follow Instructions for: Diabetic Diet, Coumadin (Warfarin) Diet Speech Therapy-Diet Recommends: Regular Additional Diet Instructions: observe strict DM diet Activities you can perform: Weight Bearing as Marci Follow up Referrals: Cardiology PCP Follow-up New Orders: BASIC METABOLIC PROF - 2-3 Days New Medications: Warfarin (Warfarin) 4 Mg Tab 8 MG PO DAILY for Blood Clot Prevention, #60 TAB 0 Refills Amoxicillin (Amoxicillin) 875 Mg Tab 875 MG PO Q12HR for Infection, #[address] (Aspirin DR) 81 Mg Tabdr 81 MG PO DAILY for prev care, #31 TAB Atorvastatin (Atorvastatin) 40 Mg Tab 40 MG PO HS for hyperlipidemia, #31 TAB Carvedilol (Coreg) 12.5 Mg Tab 12.5 MG PO Q12HR for htn, #62 TAB Hydralazine HCl (Hydralazine HCl) 25 Mg Tablet 25 MG PO Q8HR PRN for SBP>160, DBP>90, #30 TAB Hydrocodone/Acetaminophen (Hydrocodone-Acetamin 5-325 mg) 5 Mg-325 Mg Tablet 1 TAB PO Q4H PRN for PAIN SCALE 3-10, #18 TAB 0 Refills Lisinopril (Lisinopril) 10 Mg Tab 10 MG PO DAILY for htn, #31 TAB Mupirocin Topical (Bactroban Topical) 22 Gm Cream 1 APPLIC TOPICAL Q12HR for cellulitis, #1 TUBE Changed Medications: Furosemide (Lasix) 40 Mg Tab 40 MG PO BID for chf/edema, #62 TAB 0 Refills (Changed from: DAILY; 30) Continued Medications: Allopurinol (Zyloprim) 100 Mg Tab 100 MG PO DAILY for Gout, #30 TAB 0 Refills Alprazolam (Xanax) 1 Mg Tab 1 MG PO Q8H PRN for ANXIETY, TAB 0 Refills Amlodipine (Norvasc) 5 Mg Tab 5 MG PO DAILY for htn for 30 Days, #30 TAB Metformin ER (Metformin ER) 750 Mg Lico 750 MG PO BID for Blood Sugar Management, TAB 0 Refills With evening meal Paroxetine (Paxil) 10 Mg Tab 10 MG PO DAILY, #30 TAB 0 Refills Discontinued Medications: Clindamycin (Clindamycin) 150 Mg Cap 300 MG PO QID for Infection, #80 CAP 0 Refills Lisinopril (Lisinopril) 20 Mg Tab 20 MG PO DAILY, #30 TAB 0 Refills Metoprolol Tartrate (Metoprolol Tartrate) 50 Mg Tab 50 MG PO BID, #60 TAB 0 Refills Warfarin (Coumadin) 7.5 Mg Tab 7.5 MG PO DAILY@1600 for PE for 30 Days, #30 TAB Additional Information see cardiology next week for likely cath. Esvin Mcnally MD PhD Jun 10, 2017 09:36
[2017-06-10] MEDS: SODIUM CHLORIDE 0.9% FLUSH 10 ML FLUSH IV FLUSH SCH (09:44)
[2017-06-10] MEDS: amLODIPine BESYLATE 5 MG TAB PO SCH (09:44)
[2017-06-10] MEDS: FUROSEMIDE 40 MG/4 ML VIAL IV PUSH SCH ×2 (09:46→18:14)
[2017-06-10] MEDS ORDERED: GLIM1TAB PO (09:47)
[2017-06-10 10:39] LABS: CHOLESTEROL/ HDL RATIO 5.66 RATIO; HDL CHOLESTEROL 37.1 MG/DL (40.0-60.0)
--- NOTE | 2017-06-10 10:42 | RADRPT ---
EXAM DATE/TIME: 06/09/2017 10:09 [facility] COMPARISON: No previous studies available for comparison. INDICATIONS : Substernal chest pain with dyspnea. Angina. DOSE: 30 mCi Tc99m Myoview at stress. 32.5 mCi Tc99m Myoview at rest. 0.4 mg Lexiscan STRESS SYMPTOMS: Dyspnea. EJECTION FRACTION: 46% MEDICAL HISTORY : Hypercholesterolemia. Hypertension. Diabetes mellitus type 2. SURGICAL HISTORY : Tonsillectomy. ENCOUNTER: Initial ACUITY: 1 day PAIN SCALE: 3/10 LOCATION: Substernal chest TECHNIQUE: The patient underwent pharmacologic stress with infusion of prescribed dose. Continuous ECG tracing was monitored during stress. Gated SPECT imaging was performed after stress and conventional SPECT i maging was performed at rest. The examination was performed on a SPECT/CT scanner, both attenuation and non-corrected datasets were reviewed. FINDINGS: DISTRIBUTION: The maximum perfused segment at stress is in the anteroseptal wall. PERFUSION STUDY: There is moderately diminished relative radiotracer delivery to the posterior basal and inferior wall with moderate redistribution suggested. GATED STUDY: Mild left ventricular chamber enlargement with global mild hypokinesis. CONCLUSION: Moderate size moderate severity reversible right coronary territory perfusion abnormality. Mild LV dysfunction. RISK CATEGORY: Intermediate (1-3% Annual Mortality Rate) Stephen Oneal MD on June 10, 2017 at 10:36 Board Certified Radiologist. This report was verified electronically.
--- NOTE | 2017-06-10 12:53 | PD.CARD.PN ---
Subjective Subjective Remarks Patient had Lexiscan done today which showed moderate reversible defect. D/W Dr. Mcnally, patient with no further chest pain today. Objective Medications Current Medications Medications (Trade) Dose Ordered Sig/Nara Route Start Time Stop Time Status Last Admin (Xanax) 1 mg Q8H PRN PO 06/08/17 20:00 06/09/17 23:09 (Coumadin) 7.5 mg DAILY@1600 PO 06/09/17 16:00 06/09/17 16:18 (Paxil) 10 mg DAILY PO 06/09/17 09:00 06/10/17 08:29 (NovoLOG SUPPLEMENTAL SCALE) 1 ACHS SLIDING SCALE SQ 06/08/17 21:00 06/10/17 11:37 (NS Flush) 2 ml UNSCH PRN IV FLUSH 06/08/17 19:15 (NS Flush) 2 ml BID IV FLUSH 06/08/17 21:00 06/10/17 09:44 (Zofran Inj) 4 mg Q6H PRN IV PUSH 06/08/17 20:00 (Trimox) 875 mg Q12HR PO 06/08/17 21:00 06/10/17 08:29 (Bascom 5-325 Mg) 1 tab Q4H PRN PO 06/08/17 23:00 06/09/17 14:30 (Morphine Inj) 4 mg Q4H PRN IV 06/09/17 01:45 06/10/17 11:06 (Norvasc) 5 mg DAILY PO 06/09/17 09:00 Future hold 06/10/17 09:44 (Prinivil) 10 mg DAILY PO 06/09/17 09:00 06/10/17 08:29 (Coreg) 12.5 mg Q12HR PO 06/09/17 09:00 06/10/17 08:29 (Lasix Inj) 40 mg BID@,18 IV PUSH 06/09/17 09:00 06/10/17 09:46 (Apresoline) 25 mg Q8HR PRN PO 06/09/17 08:45 06/09/17 23:09 (Lipitor) 40 mg HS PO 06/09/17 21:00 06/09/17 21:20 (Ecotrin Ec) 81 mg DAILY PO 06/09/17 09:00 06/10/17 08:28 (Bactroban 2% Cream) 1 applic Q12HR TOPICAL 06/10/17 09:00 06/10/17 09:46 Vital Signs / I&O Vital Signs Date Time Temp Pulse Resp B/P (MAP) Pulse Ox O2 Delivery O2 Flow Rate FiO2 06/10/17 08:23 182/92 (122) 06/10/17 07:15 95 21 06/10/17 04:00 96.4 76 20 160/100 (120) 95 06/10/17 00:30 179/86 (117) 06/10/17 00:00 96.2 67 20 185/92 (123) 97 06/09/17 20:02 94 21 06/09/17 20:00 97.7 74 20 176/86 (116) 95 06/09/17 20:00 66 06/09/17 16:00 98.0 65 16 173/91 (118) 96 I/O 06/09/17 06/09/17 06/09/17 06/10/17 06/10/17 06/10/17 07:00 15:00 23:00 07:00 15:00 23:00 Intake Total 640 ml 960 ml Output Total 900 ml 0 ml Balance -900 ml 640 ml 960 ml Intake Oral 640 ml 960 ml Output Urine Total 900 ml Stool Total 0 ml # Voids 1 3 5 # Bowel Movements 1 Laboratory Laboratory Tests Test 06/10/17 06:05 Prothrombin Time 19.8 SEC Prothromb Time International Ratio 2.0 RATIO Blood Urea Nitrogen 27 MG/DL Creatinine 1.20 MG/DL Random Glucose 157 MG/DL Calcium Level 8.8 MG/DL Sodium Level 136 MEQ/L Potassium Level 5.2 MEQ/L Chloride Level 101 MEQ/L Carbon Dioxide Level 32.3 MEQ/L Anion Gap 3 MEQ/L Estimat Glomerular Filtration Rate 65 ML/MIN Triglycerides Level 209 MG/DL Cholesterol Level 210 MG/DL LDL Cholesterol 131 MG/DL HDL Cholesterol 37.1 MG/DL Cholesterol/HDL Ratio 5.66 RATIO Assessment and Plan Assessment and Plan Chest pain with positive stress test: d/w Dr. Pandey. Due to pt's size, he will need a radial approach for cardiac catheterization w/ Dr. Jane. We will have the pt follow up w/ Dr. Hirsch early next week as outpatient so that we can get that arranged. Cont ASA, statin, BB. Strict control of BP. Echo w/ mild LVH and normal systolic function. Discussed Condition With Dr. Mcnally, Lewis Nascimento Jun 10, 2017 12:52
--- NOTE | 2017-06-10 14:11 | HHI.PR ---
Addendum to Inpatient Note Addendum Reason: Additional Documentation Additional Information Reviewed stress test results with Dr Pandey and with pt. Pt remains CP free. Advised that he will need cath likely next week. He will be d/c home with close outpt f/u. Instructed him to see cards and PCP next week. Also advised to get back to ER if CP recurs and not relieved with rest. Esvin Mcnally MD PhD Jun 10, 2017 14:11
[2017-06-10] MEDS: WARFARIN SOD 7.5 MG TAB PO SCH (17:17)
== END 2017-06-10 18:48 | disposition home or self-care (01) ==
LOC: PHED 16:00 → INTOOBSV 18:35 → PHEDA 18:35 → PH3B 20:55
PROVIDERS: ADMIT Legal Medicine; ATTEND Legal Medicine
DX: I11.0 Hypertensive heart disease with heart failure (principal); I50.9 Heart failure, unspecified; R07.89 Other chest pain; L03.311 Cellulitis of abdominal wall; L02.211 Cutaneous abscess of abdominal wall; E87.5 Hyperkalemia; R11.0 Nausea; E78.1 Pure hyperglyceridemia; E11.9 Type 2 diabetes mellitus without complications; R91.8 Other nonspecific abnormal finding of lung field; M79.604 Pain in right leg; M79.605 Pain in left leg; I48.0 Paroxysmal atrial fibrillation; F41.9 Anxiety disorder, unspecified; M76.62 Achilles tendinitis, left leg; M76.61 Achilles tendinitis, right leg; M54.30 Sciatica, unspecified side; E66.01 Morbid (severe) obesity due to excess calories; Z79.01 Long term (current) use of anticoagulants; Z87.891 Personal history of nicotine dependence; Z79.899 Other long term (current) drug therapy; Z79.84 Long term (current) use of oral hypoglycemic drugs; Z86.711 Personal history of pulmonary embolism
CPT/HCPCS: 71045; 73600; 78452; 80048; 80053; 80061; 81001; 82550; 82552; 82948; 83036; 83880; 84484; 85025; 85610; 85730; 87040; 93005; 93017; 93306; 93970; 96372; 96374; 96375; 96376; 97162; 99285; A9502; G0378; G8987; G8988; J1815; J1885; J1940; J2270; J2785; J2920

== ENCOUNTER 2017-06-15 06:19 | Day surgery (SDC) | payer OTHER ==
[~2017-06-15] VITALS: Ht 185.4 cm; Wt 166.8 kg
[~2017-06-15 06:19] MED LIST changes: +ALLO100 PO; +AMOX875T PO; +ATOR40TA16 PO; -BACT800T5 PO; +CARV12.5 PO; -CLIN150C14 PO; -COUM7.5T PO; +ECASA81 PO; -ENOX150P SQ; +FURO1TAB60 PO; +GLIM1TAB PO; +HYDR-3516 PO; +HYDR-3799 PO; -LISI-515 PO; +LISI10TA3 PO; -METF500T PO; +METF750T PO; -METO50TA PO; +MUPI2%T TOPICAL; -OXYC1TAB35 PO; +PAXI10TA8 PO; +WARF-20 PO
[2017-06-15] MEDS ORDERED: NS 1000P @30 MLS/HR (KVO) IV SCH (06:45)
[2017-06-15 07:43] VITALS: BP 179/104; PULSE 98; RESP 20; TEMP 98; O2SAT 99
[2017-06-15 08:00] LABS: CALCIUM 8.5 MG/DL (8.5-10.1); CREATININE 1.33 MG/DL (0.60-1.30)
[2017-06-15] MEDS ORDERED: FURO40TA PO (08:29)
[2017-06-15] MEDS ORDERED: SODIUM POLYSTYRENE SULFONATE SUSP 15 GM/60 ML CUP PO ONE (08:45)
== END 2017-06-15 09:16 | disposition home or self-care (01) ==
LOC: HDOC 06:19 → HDIC 06:21 → HDOC 09:16
PROVIDERS: ATTEND Internal Medicine Cardiovascular Disease
DX: R07.9 Chest pain, unspecified (principal); I48.91 Unspecified atrial fibrillation; Z79.01 Long term (current) use of anticoagulants; Z53.9 Procedure and treatment not carried out, unspecified reason
CPT/HCPCS: 80048; G0463; 99211

== ENCOUNTER 2017-06-17 05:57 | Day surgery (SDC) | payer OTHER ==
[~2017-06-17] VITALS: Ht 185.4 cm; Wt 164.5 kg
[~2017-06-17 05:57] MED LIST changes: -FURO1TAB60 PO; +FURO40TA PO; -LISI10TA3 PO
[2017-06-17] MEDS ORDERED: IOHEXOL 350 MG/ML 100 ML BTL (for Cath Lab) OTHER ONE (05:58)
[2017-06-17] MEDS ORDERED: NS 1000P @30 MLS/HR (KVO) IV SCH (06:15)
[2017-06-17 07:26] LABS: BICARBONATE 33.2 MEQ/L (21.0-32.0); CALCIUM 8.8 MG/DL (8.5-10.1); CREATININE 1.37 MG/DL (0.60-1.30)
[2017-06-17] MEDS ORDERED: LORazepam 2 MG/ML VIAL ONE (07:41)
[2017-06-17] MEDS ORDERED: LORazepam 2 MG/ML VIAL IV PUSH ONE (07:45)
[2017-06-17 07:48] VITALS: BP_SYST 104; BP_SYST 207; BP_DIAS 112; BP_DIAS 60; PULSE 112; PULSE 84; RESP 16; RESP 18; O2SAT 96; O2SAT 98
[2017-06-17] MEDS ORDERED: HEPARIN SODIUM - IV 10,000 UNITS/10 ML VIAL ONE (08:05)
[2017-06-17] MEDS ORDERED: MIDAZOLAM HCL 2 MG/2 ML VIAL ONE ×2 (08:05→08:30)
[2017-06-17] MEDS ORDERED: HEPARIN-NS/PF FLUSH BAG 2,000 ML IV FLUSH ONE (08:05)
[2017-06-17] MEDS ORDERED: VERAPAMIL HCL 5 MG/2 ML VIAL ONE ×2 (08:05→08:14)
[2017-06-17] MEDS ORDERED: LABETALOL HCL 100 MG/20 ML VIAL ONE (08:14)
[2017-06-17] MEDS ORDERED: CLOPIDOGREL 300 MG TAB ONE (09:12)
[2017-06-17] MEDS ORDERED: SODIUM CHLOR 0.9% 1000 ML INJ 1,000 ML IV SCH (09:18)
[2017-06-17] MEDS ORDERED: CLOP75TA PO (09:26)
[2017-06-17] MEDS ORDERED: BACITRACIN OINT 0.9 GM PKT TOP ONE (09:30)
[2017-06-17] MEDS ORDERED: MISC INFORMATION XX ONE (09:30)
[2017-06-17] MEDS ORDERED: SODIUM CHLORIDE 0.9% FLUSH 10 ML FLUSH IV FLUSH PRN (09:30)
[2017-06-17] MEDS ORDERED: LIDOCAINE 2% JELLY 30 ML TUBE TOP PRN (09:30)
[2017-06-17] MEDS ORDERED: CARVEDILOL 12.5 MG TAB PO ONE (10:30)
[2017-06-17] MEDS ORDERED: hydrALAZINE HCL 25 MG TAB PO PRN (10:30)
[2017-06-17] MEDS ORDERED: amLODIPine BESYLATE 5 MG TAB PO ONE (10:30)
[2017-06-17] MEDS ORDERED: ACETAMINOPHEN/HYDROcodone 325 MG/5 MG TAB PO PRN (12:30)
--- NOTE | 2017-06-17 16:45 | MA ---
cc: Arnaldo Hirsch DO DATE: 06/17/2017 DATE OF PROCEDURE: 06/17/2017 FOOD QUALITY TESTER: Arnaldo Hirsch DO ASSISTING FOOD QUALITY TESTER: Juarez Pandey MD PROCEDURES PERFORMED: 1. Selective right and left coronary angiography. 2. Right radial arteriotomy. 3. Left heart catheterization. PREPROCEDURAL DIAGNOSES: 1. Unstable angina. 2. Abnormal Lexiscan stress test showing moderate sized, moderate intensity reversible perfusion defect in the inferior and posterior wall. 3. Diabetes. 4. Hypertension, uncontrolled. 5. Morbid obesity. POSTPROCEDURE DIAGNOSES: 1. Obstructive coronary artery disease. 2. High-grade focal stenosis in the mid right coronary artery. ANESTHESIA: 1. Fentanyl and Versed were used for conscious sedation. 2. Lidocaine was used for local anesthetic. MEDICATIONS: A total of 200 mcg of nitroglycerin and 800 mcg of verapamil and 5000 units of heparin were administered throughout the case. COMPLICATIONS: None. INFORMED CONSENT: Prior to the procedure, the patient was informed of the risks of the procedure including, but not limited to bleeding, vascular complications, stroke, myocardial infarction, need for emergent bypass surgery, infection, arrhythmia, contrast allergy and . Expressing an understanding of these risks, the patient agreed to proceed with the procedure. DESCRIPTION OF PROCEDURE: After informed consent was obtained, the patient was brought to the cardiac catheterization lab in the postabsorptive state. The patient was prepped and draped in the usual sterile fashion. A timeout was taken in order to verify the patient, procedure and preprocedure labs. The right radial artery was identified by anatomic location and palpation of the radial pulse and overlying subcutaneous layers were anesthetized with 1% lidocaine. The right radial artery was cannulated with a 2.5 cm Cook type needle and a site using a Seldinger technique, a micropuncture wire was advanced into the radial artery without difficulty. A 6-[place] glide sheath was then advanced over the wire and with wire and dilator removed, the sidearm was flushed with sterile saline and subsequently flushed between catheter exchanges. A JR5 catheter was advanced over a J guidewire to the ascending aorta. With the guidewire removed, the catheter engaged the right coronary artery. Serial orthogonal angiographic images were obtained. The catheter was exchanged over an exchange length guidewire for a JL3.5 diagnostic catheter, which engaged the left coronary artery. Serial orthogonal angiographic images were obtained. The catheter was then exchanged over an exchange length guidewire for an angled pigtail catheter, which was advanced across the aortic valve into the left ventricle. Hemodynamic assessment of the left ventricle was obtained with manual pullback recorded across the aortic valve to measure gradients. Dr. Juarez Pandey of interventional cardiology then assumed the case to perform percutaneous intervention of the noted mid RCA stenosis, which was deemed to represent a culprit lesion. Please see Dr. Pandey' addendum dictation note for further details. ANGIOGRAPHIC FINDINGS: 1. LEFT MAIN CORONARY ARTERY: The left main coronary artery arises from the aorta in its usual position. It is a moderate length moderate caliber vessel and angiographically free of disease. 2. LAD: The LAD is a moderate size vessel, which continues distally to wrap the apex. It gives rise to a few diagonal branches, all of which are angiographically free of disease. 3. LEFT CIRCUMFLEX: Left circumflex is a moderate caliber vessel in the proximal portion before transversing the AV groove as a small caliber vessel. It gives rise to obtuse marginal branches. The system is angiographically free of disease. 4. RIGHT CORONARY ARTERY: The right coronary artery rises from the aorta in its usual position as a large caliber dominant vessel and continues distally with a moderate size right PDA. There is an 80% eccentric stenosis in the mid RCA. HEMODYNAMIC FINDINGS: LVEDP 14 mmHg. No significant gradient across the aortic valve upon manual pullback. IMPRESSION: Obstructive coronary artery disease involving a high-grade stenosis in the mid right coronary artery, which is the culprit lesion for his anginal symptoms and abnormal Lexiscan stress test findings. PLAN: 1. Percutaneous intervention of the mid RCA. Please review Dr. Juarez Pandey' addendum note for details. 2. The patient is currently on Coumadin for history of pulmonary embolus. He will require triple therapy with Coumadin, aspirin 81 mg daily and Plavix 75 mg daily for 1 month prior to discontinuing aspirin therapy depending on previously directed duration of therapy of Coumadin by his primary care provider. If it is determined that he may discontinue Coumadin at any time within the next 6 months, he should resume dual antiplatelet therapy with aspirin and Plavix at that time uninterrupted for a minimum of 6 months total duration. 3. Continue dietary, lifestyle and pharmacotherapy recommendations for secondary prevention of CAD. He will follow up with me as an outpatient next week as scheduled. ADDENDUM (Dictated by Dr. Juarez Pandey) This is an addendum to Dr. Hirsch's heart catheterization note. PROCEDURE: Following identification of the right coronary lesion, an R4 guide was used to cannulate the artery. Attempts to primarily stent the lesion were unsuccessful due to a rather poor backup with the R4. The equipment was removed and an XBR4 guide was then used to cannulate the artery. Primary stenting was then accomplished with a 4.0 x 18 mm drug-eluting stent with post-dilatation at 14 atmospheres. This resulted in a good cosmetic result. AIDAN 3 flow was present both pre and post-procedure. Essentially 0 residual was present. The catheters were then withdrawn. The patient was returned to his room in good condition with a sheath in his right radial artery. DO LEOBARDO Brothers/ANGEL , 04:12 PM , 04:44 PM
[2017-06-17] MEDS ORDERED: SODIUM CHLORIDE 0.9% FLUSH 10 ML FLUSH IV FLUSH SCH (21:00)
== END 2017-06-17 15:22 | disposition home or self-care (01) ==
LOC: HDIC 05:57 → HDOC 05:57
PROVIDERS: ATTEND Internal Medicine Cardiovascular Disease
DX: I25.10 Atherosclerotic heart disease of native coronary artery without angina pectoris (principal); R94.39 Abnormal result of other cardiovascular function study; E11.9 Type 2 diabetes mellitus without complications; I10 Essential (primary) hypertension; E66.01 Morbid (severe) obesity due to excess calories; Z79.84 Long term (current) use of oral hypoglycemic drugs
CPT/HCPCS: 80048; 85002; 86850; 86900; 86901; 92928; 93458; 99152; 99153; C1769; C1874; C1887; C1893; J1644; J2060; J2250; J3010; J7030; Q9967

== ENCOUNTER 2017-07-17 17:23 | Emergency (ER) | payer OTHER ==
[~2017-07-17] VITALS: Ht 185.4 cm; Wt 170.2 kg
[~2017-07-17 17:23] MED LIST changes: +CLOP75TA PO
[2017-07-17 17:30] VITALS: BP 186/90; PULSE 92; RESP 16; TEMP 98.7; O2SAT 95
[2017-07-17] MEDS ORDERED: CLOP75TA PO (17:52)
[2017-07-17] MEDS ORDERED: CARV25TA PO (17:52)
[2017-07-17] MEDS ORDERED: AMLO5TAB2 PO (17:52)
[2017-07-17] MEDS ORDERED: GLIM2TAB PO (17:52)
[2017-07-17] MEDS ORDERED: HYDR-3801 PO (17:54)
[2017-07-17] MEDS ORDERED: GABA100C4 PO (17:54)
--- NOTE | 2017-07-17 18:05 | PD ---
HPI Chief Complaint: Injury Time Seen by Provider: 17:41 Travel History International Travel<30 days: No Contact w/Intl Traveler<30days: No Traveled to known affect area: No History of Present Illness HPI 47 year old male here with right ankle pain after he slipped off a ladder step causing forced extension on the foot. Injury occurred yesterday evening. He had pain & swelling to the posterior aspect of the ankle. Denies altered sensation or weakness of the extremity. He has pain with dorsiflexion of the foot. He denies any other injuries. He was recently seen by [facility] and diagnosed with tendinitis and given an orthopedic walking boot which he placed on the extremity after the injury yesterday. PFSH Past Medical History Hx Anticoagulant Therapy: Yes (plavix, asa 81mg) Arthritis: Yes Asthma: Yes (only as a child) Autoimmune Disease: No Blood Disorders: No Anxiety: Yes Depression: Yes Heart Rhythm Problems: Yes (IRREGULAR HEART RATE) Cancer: No Cardiovascular Problems: Yes (htn on meds, stent placed x 1, no [place]) High Cholesterol: Yes Chest Pain: No Congestive Heart Failure: No COPD: Yes Cerebrovascular Accident: No Diabetes: Yes (type 2) Patient Takes Glucophage: Yes (07-17-17 1700) Diminished Hearing: No Endocrine: Yes Gastrointestinal Disorders: No GERD: No Gout: Yes Genitourinary: No Headaches: No Hepatitis: No Hiatal Hernia: No Hypertension: Yes Immune Disorder: No Implanted Vascular Access Dvce: No Kidney Stones: Yes Musculoskeletal: Yes 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) Psychiatric: Yes Reproductive: No Respiratory: Yes (copd) Immunizations Current: Yes Migraines: No Myocardial Infarction: No Renal Failure: Yes (hx of ARF) Seizures: No Sleep Apnea: No Thyroid Disease: No Ulcer: No Tetanus Vaccination: < 5 Years Influenza Vaccination: Yes Menopausal: Yes Past Surgical History Abdominal Surgery: Yes (ANAL FISSURES) AICD: No Appendectomy: No Arteriovenous Shunt: No Cardiac Surgery: No Cholecystectomy: No Coronary Stent: Yes Ear Surgery: No Endocrine Surgery: No Eye Surgery: No Genitourinary Surgery: No Gynecologic Surgery: No Insulin Pump: No Joint Replacement: No Neurologic Surgery: No Oral Surgery: Yes Pacemaker: No Thoracic Surgery: Yes Tonsillectomy: Yes Other Surgery: Yes (LEFT INNER THIGH ABSCESS REMOVED) Social History Alcohol Use: No (denies any present hx of drinking beer) Tobacco Use: No (QUIT AGE 36 smoked 1/2 ppd) Substance Use: No Allergies-Medications (Allergen,Severity, Reaction): Coded Allergies: codeine (Verified Allergy, Severe, Itching, 07/17/17) tramadol (Verified Allergy, Unknown, 07/17/17) clonidine (Unverified Adverse Reaction, Severe, ARNDT, dry mouth, "felt drunk ", 07/17/17) lisinopril (Verified Adverse Reaction, Unknown, abnormal labs K level, ) Reported Meds & Prescriptions Reported Meds & Active Scripts Active [place] (Hydrocodone-Acetaminophen) 5 Mg-325 Mg Tab 1 Tab PO Q6H PRN Aspirin DR (Aspirin) 81 Mg Tabdr 81 Mg PO DAILY Atorvastatin (Atorvastatin Calcium) 40 Mg Tab 40 Mg PO HS Novolog Inj (Insulin Aspart) 1,000 Unit/10 Ml Vial 0 SQ DIRECTED Sliding Scale as directed. Reported Hydralazine (Hydralazine HCl) 100 Mg Tab 50 Mg PO TID Take with meals Gabapentin 100 Mg Cap 200 Mg PO TID Clopidogrel (Clopidogrel Bisulfate) 75 Mg Tab 75 Mg PO DAILY Glimepiride 2 Mg Tab 2 Mg PO BIDAC Carvedilol 25 Mg Tab 25 Mg PO BID Amlodipine (Amlodipine Besylate) 5 Mg Tab 5 Mg PO BID Furosemide 40 Mg Tab 40 Mg PO DAILY Zyloprim (Allopurinol) 100 Mg Tab 100 Mg PO DAILY Paxil (Paroxetine HCl) 10 Mg Tab 20 Mg PO DAILY Metformin ER (Metformin HCl) 750 Mg Lico 750 Mg PO BID HOLD UNTIL FURTHER NOTICE Xanax (Alprazolam) 1 Mg Tab 1 Mg PO HS PRN Review of Systems Except as stated in HPI: all other systems reviewed are Neg General / Constitutional: No: Fever HENT: No: Headaches Cardiovascular: No: Chest Pain or Discomfort Respiratory: No: Shortness of Breath Gastrointestinal: No: Abdominal Pain Physical Exam Narrative GENERAL: Alert and well-appearing 47-year-old male SKIN: Warm and dry. HEAD: Normocephalic. EYES: No scleral icterus. No injection or drainage. NECK: Supple, trachea midline. No JVD or lymphadenopathy. CARDIOVASCULAR: Regular rate and rhythm without murmurs, gallops, or rubs. RESPIRATORY: Breath sounds equal bilaterally. No accessory muscle use. GASTROINTESTINAL: Abdomen soft, non-tender, nondistended. MUSCULOSKELETAL: No cyanosis. RLE: +ttp, swelling, mild ecchymosis to the posterior aspect of the ankle. No obvious deformity. The joint is stable. Mccormick test provokes minimal plantar flexion. Normal sensation in the foot. Palpable DP pulse. Brisk cap refill. BACK: No CVA tenderness. Data Data Last Documented VS Vital Signs Date Time Temp Pulse Resp B/P (MAP) Pulse Ox O2 Delivery O2 Flow Rate FiO2 07/17/17 17:30 98.7 92 16 186/90 (122) 95 Orders Orders Foot, Complete ([id number]) (07/17/17 ) Ankle, Complete (Adp2mon) (07/17/17 ) Ketorolac Inj (Toradol Inj) (07/17/17 18:45) Acetamin-Hydrocod 325-5 Mg ([place] 5-325 (07/17/17 19:15) Splint Or Brace Apply/Monitor (07/17/17 19:12) [facility] Medical Decision Making Medical Screen Exam Complete: Yes Emergency Medical Condition: Yes Differential Diagnosis Achilles tendon rupture, Achilles tendon injury, ankle sprain, fracture Narrative Course 47-year-old male here with a suspected Achilles tendon injury. Extremity is neurovascularly intact. X-rays negative for fracture. Patient is established with podiatry. He was put in a posterior short leg in slight plantarflexion. He is to follow-up on Tuesday with Dr. Hull. He verbalized understanding and agrees to plan Diagnosis Primary Impression: Achilles tendon injury Qualified Codes: S86.001A - Unspecified injury of right Achilles tendon, initial encounter Referrals: Josie Hull DPM Additional Instructions: Splint must stay in place until follow-up with [facility]. Call to schedule an appointment on Tuesday. Elevate the extremity. Pain medication as directed. Scripts Hydrocodone-Acetaminophen ([place]) 5 Mg-325 Mg Tab 1 TAB PO Q6H Y for PAIN, #10 TAB 0 Refills Prov: AltonriyaMary Jane 07/17/17 Disposition: 01 DISCHARGE HOME Condition: Stable Mary Jane Cortez July 17, 2017 18:05
[2017-07-17] MEDS ORDERED: KETOROLAC TROMETHAMINE 60 MG/2 ML (IM) VIAL IM ONE (18:45)
--- NOTE | 2017-07-17 18:52 | RADRPT ---
EXAM DATE: 07/17/2017 6:45 PM EDT AGE/SEX: 47 years / Male INDICATIONS: Right foot and ankle pain after stepping on ladder CLINICAL DATA: This is the patient's initial encounter. Patient reports that signs and symptoms have been present for 2 days and indicates a pain score of 10/10. MEDICAL/SURGICAL HISTORY: Diabetes mellitus type II. Hypertension. None. COMPARISON: No prior [place] exams available for comparison. FINDINGS: Significant soft tissue swelling is evident throughout the right foot. Subtle cortical deformity at t he base of the third proximal phalanx which may represent a nondisplaced fracture. Osseous structures are otherwise intact. Significant arthropathy is seen of the first metatarsophalangeal joint. There is joint space narrowin g, marginal spurring and subcortical cyst formation. CONCLUSION: 1. Generalized soft tissue swelling 2. Possible nondisplaced fracture involving the proximal phalanx of the third toe. 3. Moderate arthropathy of the first metatarsophalangeal joint. Electronically signed by: Keith Moya MD 07/17/2017 6:50 PM EDT
--- NOTE | 2017-07-17 18:53 | RADRPT ---
EXAM DATE: 07/17/2017 6:42 PM EDT AGE/SEX: 47 years / Male INDICATIONS: right foot and ankle pain after stepping on ladder CLINICAL DATA: This is the patient's initial encounter. Patient reports that signs and symptoms have been present for 2 days and indicates a pain score of 10/10. MEDICAL/SURGICAL HISTORY: Diabetes mellitus type II. Hypertension. None. COMPARISON: No prior [place] exams available for comparison. FINDINGS: Generalized soft tissue swelling is noted. The ankle joint appears intact without evidence of fractur e or dislocation. Ankle mortise is well-maintained. Significant focal soft tissue swelling is seen along the Achilles tendon. There is soft tissue calcif ication along the course of the Achilles tendon. CONCLUSION: 1. Soft tissue swelling and calcification along the Achilles tendon which may represent atelectatic tendinitis. 2. Soft tissue swelling without evidence of acute fracture, dislocation or significant arthropathy. Electronically signed by: Keith Moya MD 07/17/2017 6:52 PM EDT
[2017-07-17] MEDS ORDERED: NORC5TAB PO (19:15)
[2017-07-17] MEDS ORDERED: ACETAMINOPHEN/HYDROcodone 325 MG/5 MG TAB PO ONE (19:15)
[2017-07-17 20:18] VITALS: BP 162/77
== END 2017-07-17 20:26 | disposition home or self-care (01) ==
LOC: PHEFT 17:23
DX: S86.001A Unspecified injury of right Achilles tendon, initial encounter (principal); M19.90 Unspecified osteoarthritis, unspecified site; F41.9 Anxiety disorder, unspecified; F32.9 Major depressive disorder, single episode, unspecified; I10 Essential (primary) hypertension; J44.9 Chronic obstructive pulmonary disease, unspecified; E11.9 Type 2 diabetes mellitus without complications; M10.9 Gout, unspecified; W11.XXXA Fall on and from ladder, initial encounter
CPT/HCPCS: 73610; 73630; 99283

== ENCOUNTER 2017-07-19 14:05 | Inpatient (IN) | payer OTHER ==
[~2017-07-19] VITALS: Ht 185.4 cm; Wt 178.9 kg
[2017-07-19] VITALS (16 sets, daily range): BP systolic 102–148; BP diastolic 56–85; PULSE 78–99; RESP 20–24; TEMP 99.5; O2SAT 77–100
[~2017-07-19 14:05] MED LIST changes: -AMLO5 PO; +AMLO5TAB2 PO; -AMOX875T PO; -CARV12.5 PO; +CARV25TA PO; +GABA100C4 PO; -GLIM1TAB PO; +GLIM2TAB PO; -HYDR-3516 PO; -HYDR-3799 PO; +HYDR-3801 PO; -MUPI2%T TOPICAL; +NORC5TAB PO; -WARF-20 PO
--- NOTE | 2017-07-19 14:21 | PD ---
HPI Chief Complaint: Respiratory Symptoms Time Seen by Provider: 14:15 Travel History International Travel<30 days: No Contact w/Intl Traveler<30days: No Traveled to known affect area: No History of Present Illness HPI This 47-year-old male is complaining of chest pain and shortness of breath. This gentleman has extensive medical history. He has a history of pulmonary embolus about 8 months ago and was on Coumadin. Last month he had a cardiac cath and stenting done. He has been on aspirin and Plavix since then. His Coumadin was stopped a couple weeks ago. He was here a few days ago after falling and rupturing his Achilles tendon. He says his been short of breath the last couple of days. His says he been delirious at times. He does not years ago. He has a history of diabetes poorly controlled. His says that he has been extremely tired recently. He falls asleep easily. He has never been on CPAP or home oxygen. PFSH Past Medical History Hx Anticoagulant Therapy: Yes (plavix, asa 81mg) Arthritis: Yes Asthma: Yes (only as a child) Autoimmune Disease: No Blood Disorders: No Anxiety: Yes Depression: Yes Heart Rhythm Problems: Yes (IRREGULAR HEART RATE) Cancer: No Cardiovascular Problems: Yes (htn on meds, stent placed x 1, no [place]) High Cholesterol: Yes Chest Pain: No Congestive Heart Failure: No COPD: Yes Cerebrovascular Accident: No Diabetes: Yes (type 2) Diminished Hearing: No Endocrine: Yes Gastrointestinal Disorders: No GERD: No Gout: Yes Genitourinary: No Headaches: No Hepatitis: No Hiatal Hernia: No Hypertension: Yes Immune Disorder: No Implanted Vascular Access Dvce: No Kidney Stones: Yes Musculoskeletal: Yes 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) Psychiatric: Yes Reproductive: No Respiratory: Yes (copd) Immunizations Current: Yes Migraines: No Myocardial Infarction: No Renal Failure: Yes (hx of ARF) Seizures: No Sleep Apnea: No Thyroid Disease: No Ulcer: No Menopausal: Yes Past Surgical History Abdominal Surgery: Yes (ANAL FISSURES) AICD: No Appendectomy: No Arteriovenous Shunt: No Cardiac Surgery: No Cholecystectomy: No Coronary Stent: Yes Ear Surgery: No Endocrine Surgery: No Eye Surgery: No Genitourinary Surgery: No Gynecologic Surgery: No Insulin Pump: No Joint Replacement: No Neurologic Surgery: No Oral Surgery: Yes Pacemaker: No Thoracic Surgery: Yes Tonsillectomy: Yes Other Surgery: Yes (LEFT INNER THIGH ABSCESS REMOVED) Social History Alcohol Use: No (denies any present hx of drinking beer) Tobacco Use: No (QUIT AGE 36 smoked 1/2 ppd) Substance Use: No Allergies-Medications (Allergen,Severity, Reaction): Coded Allergies: codeine (Verified Allergy, Severe, Itching, 07/19/17) tramadol (Verified Allergy, Unknown, 07/19/17) clonidine (Unverified Adverse Reaction, Severe, ARNDT, dry mouth, "felt drunk ", 07/19/17) lisinopril (Verified Adverse Reaction, Unknown, abnormal labs K level, ) Reported Meds & Prescriptions Reported Meds & Active Scripts Active [place] (Hydrocodone-Acetaminophen) 5 Mg-325 Mg Tab 1 Tab PO Q6H PRN Aspirin DR (Aspirin) 81 Mg Tabdr 81 Mg PO DAILY Atorvastatin (Atorvastatin Calcium) 40 Mg Tab 40 Mg PO HS Novolog Inj (Insulin Aspart) 1,000 Unit/10 Ml Vial 0 SQ DIRECTED Sliding Scale as directed. Reported Hydralazine (Hydralazine HCl) 100 Mg Tab 50 Mg PO TID Take with meals Gabapentin 100 Mg Cap 200 Mg PO TID Clopidogrel (Clopidogrel Bisulfate) 75 Mg Tab 75 Mg PO DAILY Glimepiride 2 Mg Tab 2 Mg PO BIDAC Carvedilol 25 Mg Tab 25 Mg PO BID Amlodipine (Amlodipine Besylate) 5 Mg Tab 5 Mg PO BID Furosemide 40 Mg Tab 40 Mg PO DAILY Zyloprim (Allopurinol) 100 Mg Tab 100 Mg PO DAILY Paxil (Paroxetine HCl) 10 Mg Tab 20 Mg PO DAILY Metformin ER (Metformin HCl) 750 Mg Lico 750 Mg PO BID HOLD UNTIL FURTHER NOTICE Xanax (Alprazolam) 1 Mg Tab 1 Mg PO HS PRN Review of Systems General / Constitutional: No: Fever, Chills Eyes: No: Diploplia, Blurred Vision HENT: No: Headaches, Vertigo Cardiovascular: Positive: Chest Pain or Discomfort, No: Irregular Rhythm Respiratory: Positive: Cough, Shortness of Breath, No: Wheezing Gastrointestinal: No: Vomiting Genitourinary: No: Urgency, Frequency Musculoskeletal: No: Myalgias, Arthralgias Skin: No Rash, No Itching Neurologic: Positive: Weakness, Dizziness, Change in Mentation Psychiatric: No: Anxiety, Depression Endocrine: No: Heat Intolerance Hematologic/Lymphatic: No: Easy Bruising Physical Exam Narrative GENERAL: Overweight male. He arrives with a oxygen saturation of 69% on room air SKIN: Focused skin assessment warm/dry. HEAD: Atraumatic. Normocephalic. EYES: Pupils equal and round. No scleral icterus. No injection or drainage. ENT: No nasal bleeding or discharge. Mucous membranes pink and moist. NECK: Trachea midline. No JVD. CARDIOVASCULAR: Regular rate and rhythm. No murmur appreciated. RESPIRATORY: No accessory muscle use. Clear to auscultation. Breath sounds equal bilaterally. GASTROINTESTINAL: Abdomen soft, non-tender, nondistended. Hepatic and splenic margins not palpable. MUSCULOSKELETAL: No obvious deformities. No clubbing. No cyanosis. Trace edema. There is a splint on his right leg NEUROLOGICAL: Awake and alert. No obvious cranial nerve deficits. Motor grossly within normal limits. Normal speech. PSYCHIATRIC: Appropriate mood and affect; insight and judgment normal. Data Data Last Documented VS Vital Signs Date Time Temp Pulse Resp B/P (MAP) Pulse Ox O2 Delivery O2 Flow Rate FiO2 07/19/17 17:58 88 20 102/56 (71) 98 BiPAP 07/19/17 17:10 6.00 50 07/19/17 14:15 99.5 Orders Orders Electrocardiogram (07/19/17 14:15) Complete Blood Count With Diff (07/19/17 14:15) Comprehensive Metabolic Panel (07/19/17 14:15) Troponin I (07/19/17 14:15) B-Type Natriuretic Peptide (07/19/17 14:15) Prothrombin Time / Inr (Pt) (07/19/17 14:15) Act Partial Throm Time (Ptt) (07/19/17 14:15) Arterial Blood Gas (Abg) (07/19/17 14:15) Magnesium (Mg) (07/19/17 14:15) Chest, Single Ap (07/19/17 14:15) Furosemide Inj (Lasix Inj) (07/19/17 14:45) Ventilation & Perfusion Scan (07/19/17 15:28) Albuterol-Ipratropium Neb (Duoneb Neb) (07/19/17 16:00) Arterial Blood Gas (Abg) (07/19/17 16:40) Heparin Inj (Heparin Inj) (07/19/17 18:30) Heparin-D5w 25,000 U/250 Ml (Heparin-D5w (07/19/17 18:30) Act Partial Throm Time (Ptt) (07/19/17 18:21) Prothrombin Time / Inr (Pt) (07/19/17 18:21) Cbc No Diff, Includes Plts (07/19/17 18:21) Cbc No Diff, Includes Plts (07/22/17 06:00) Act Partial Throm Time (Ptt) (07/20/17 01:21) Occult Blood (Hemoccult) Stool (07/19/17 18:21) Labs Laboratory Tests Test 07/19/17 14:15 07/19/17 14:30 07/19/17 16:47 White Blood Count 9.4 TH/MM3 Red Blood Count 3.87 MIL/MM3 Hemoglobin 10.5 GM/DL Hematocrit 31.5 % Mean Corpuscular Volume 81.3 FL Mean Corpuscular Hemoglobin 27.1 PG Mean Corpuscular Hemoglobin Concent 33.4 % Red Cell Distribution Width 14.4 % Platelet Count 241 TH/MM3 Mean Platelet Volume 7.1 FL Neutrophils (%) (Auto) 77.7 % Lymphocytes (%) (Auto) 9.5 % Monocytes (%) (Auto) 12.1 % Eosinophils (%) (Auto) 0.4 % Basophils (%) (Auto) 0.3 % Neutrophils # (Auto) 7.4 TH/MM3 Lymphocytes # (Auto) 0.9 TH/MM3 Monocytes # (Auto) 1.1 TH/MM3 Eosinophils # (Auto) 0.0 TH/MM3 Basophils # (Auto) 0.0 TH/MM3 CBC Comment DIFF FINAL Differential Comment Prothrombin Time 9.9 SEC Prothromb Time International Ratio 1.0 RATIO Activated Partial Thromboplast Time 30.2 SEC Blood Urea Nitrogen 49 MG/DL Creatinine 1.60 MG/DL Random Glucose 234 MG/DL Total Protein 7.2 GM/DL Albumin 2.7 GM/DL Calcium Level 8.4 MG/DL Magnesium Level 2.1 MG/DL Alkaline Phosphatase 176 U/L Aspartate Amino Transf (AST/SGOT) 21 U/L Alanine Aminotransferase (ALT/SGPT) 41 U/L Total Bilirubin 0.3 MG/DL Sodium Level 134 MEQ/L Potassium Level 5.1 MEQ/L Chloride Level 100 MEQ/L Carbon Dioxide Level 26.9 MEQ/L Anion Gap 7 MEQ/L Estimat Glomerular Filtration Rate 47 ML/MIN Troponin I LESS THAN 0.02 NG/ML B-Type Natriuretic Peptide 77 PG/ML Blood Gas Puncture Site LT RADIAL LT RADIAL Blood Gas Patient Temperature 98.6 98.6 Blood Gas HCO3 27 mmol/L 27 mmol/L Blood Gas Base Excess 0.2 mmol/L 0.6 mmol/L Blood Gas Oxygen Saturation 96 % 96 % Arterial Blood pH 7.25 7.26 Arterial Blood Partial Pressure CO2 63 mmHG 63 mmHG Arterial Blood Partial Pressure O2 162 mmHG 108 mmHG Arterial Blood Oxygen Content 14.5 Vol % 12.9 Vol % Arterial Blood Carboxyhemoglobin 2.1 % 2.0 % Arterial Blood Methemoglobin 1.1 % 1.0 % Blood Gas Hemoglobin 10.5 G/DL 9.4 G/DL Oxygen Delivery Device NRM BIPAP Blood Gas Liter Flow 10 L/M Blood Gas Inspired Oxygen 100 % 50 % Blood Gas Ventilator Setting 18 IPAP/6 EPAP [facility] Medical Decision Making Medical Screen Exam Complete: Yes Emergency Medical Condition: Yes Medical Record Reviewed: Yes Differential Diagnosis Differential includes pulmonary embolus, respiratory failure, COPD exacerbation Narrative Course Chest x-ray is read as showing positive fluid balance suggestive of CHF. Initial gas shows pH 7.25 PCO2 62 and PO2 of 160 this is on supplemental oxygen. Patient was put on CPAP. His BNP is 77 his troponin is normal. EKG unchanged. Creatinine is 1.6. Impression is respiratory failure with CO2 retention. . Heparin drip has been ordered. Rectal was done in his stool is guaiac negative Leland Carvajal MD July 19, 2017 14:21
[2017-07-19 14:35] LABS: AUTOMATED NEUTROPHIL # 7.4 TH/MM3 (1.8-7.7); BASOPHIL % 0.3 % (0.0-2.0); EOSINOPHIL % 0.4 % (0.0-4.0); HEMATOCRIT 31.5 % (39.0-51.0); HEMOGLOBIN 10.5 GM/DL (13.0-17.0); LYMPH % 9.5 % (9.0-44.0); LYMPHOCYTE # 0.9 TH/MM3 (1.0-4.8); MEAN CELL VOLUME 81.3 FL (80.0-100.0); MEAN CORPUSCULAR HEMOGLOBIN 27.1 PG (27.0-34.0); MEAN CORPUSCULAR HGB CONC 33.4 % (32.0-36.0); MEAN PLATELET VOLUME 7.1 FL (7.0-11.0); MONO % 12.1 % (0.0-8.0); MONOCYTE # 1.1 TH/MM3 (0-0.9); NEUT % 77.7 % (16.0-70.0); PLATELET COUNT 241 TH/MM3 (150-450); RED BLOOD COUNT 3.87 MIL/MM3 (4.50-5.90); RED CELL DISTRIBUTION WIDTH 14.4 % (11.6-17.2); WHITE BLOOD COUNT 9.4 TH/MM3 (4.0-11.0)
[2017-07-19 14:45] LABS: CHLORIDE 100 MEQ/L (98-107); SODIUM (NA) 134 MEQ/L (136-145)
[2017-07-19] MEDS ORDERED: FUROSEMIDE 40 MG/4 ML VIAL IV PUSH ONE (14:45)
[2017-07-19 14:48] LABS: CALCIUM 8.4 MG/DL (8.5-10.1)
[2017-07-19 14:49] LABS: ALBUMIN 2.7 GM/DL (3.4-5.0); BICARBONATE 26.9 MEQ/L (21.0-32.0); BLOOD UREA NITROGEN 49 MG/DL (7-18); GLUCOSE,RANDOM 234 MG/DL (74-106); MAGNESIUM 2.1 MG/DL (1.5-2.5)
[2017-07-19 14:52] LABS: ALT (GPT) 41 U/L (12-78); AST (GOT) 21 U/L (15-37); GLOMERULAR FILTRATION RATE 47 ML/MIN (>89); PROTHROMBIN TIME - PATIENT 9.9 SEC (9.8-11.6)
[2017-07-19 14:54] LABS: TOTAL BILIRUBIN ADULT 0.3 MG/DL (0.2-1.0); TOTAL PROTEIN 7.2 GM/DL (6.4-8.2)
[2017-07-19 14:55] LABS: ALKALINE PHOSPHATASE 176 U/L (45-117)
[2017-07-19 14:57] LABS: TROPONIN I LESS THAN 0.02 NG/ML (0.02-0.05)
--- NOTE | 2017-07-19 15:04 | RADRPT ---
EXAM DATE: 07/19/2017 2:34 PM EDT AGE/SEX: 47 years / Male INDICATIONS: Short of breath. CLINICAL DATA: This is the patient's initial encounter. Patient reports that signs and symptoms have been present for 3 days and indicates a pain score of 0/10. MEDICAL/SURGICAL HISTORY: Hypertension. Chronic obstructive pulmonary disease. Coronary artery stent. COMPARISON: [facility], CHEST SINGLE AP, 06/08/2017. . FINDINGS: Mild diffuse interstitial prominence similar to previous exam. No new focal pleural or parenchymal op acities. Excellent is mildly enlarged. Remainder of exam is unchanged. CONCLUSION: 1. Mild cardiomegaly with mild persistent positive fluid balance. Electronically signed by: Polo Busch MD 07/19/2017 3:03 PM EDT
[2017-07-19] MEDS ORDERED: RESP: ALBUTEROL 2.5 MG/IPRATROPIUM 0.5 MG NEB (SCH) NEB ONE (16:00)
[2017-07-19] MEDS ORDERED: HEPARIN SODIUM - IV 10,000 UNITS/10 ML VIAL IV ONE (18:30)
--- NOTE | 2017-07-19 18:47 | RADRPT ---
EXAM DATE: 07/19/2017 5:42 PM EDT AGE/SEX: 47 years / Male INDICATIONS: Short of breath. CLINICAL DATA: This is the patient's initial encounter. Patient reports that signs and symptoms have been present for 1 week and indicates a pain score of 2/10. MEDICAL/SURGICAL HISTORY: Chronic obstructive pulmonary disease. Hypertension. Cardiovascular disease. Coronary artery stent. COMPARISON: [facility], CHEST SINGLE AP, 07/19/2017. . DOSE: 8.1 mCi Tc99m MAA IV 1.08 mCi Tc99m DTPA aerosol TECHNIQUE: Following five minutes of tidal breathing of DTPA aerosol, planar images of the lungs wer e performed in eight projections. The patient was then injected with MAA, and eight-view perfusion s can was performed. FINDINGS: There is a homogeneous pattern of aerosol delivery to the periphery of both lungs. No focal ventilat ory defects are seen. The perfusion lung scan demonstrates a homogenous pattern of uptake in both lungs. No segmental or s ubsegmental defects are seen. CONCLUSION: 1. Low probability for pulmonary embolism. Compensated cardiomegaly. If high clinical suspicion CT a ngiogram would be of benefit. Electronically signed by: Diego Hahn MD 07/19/2017 6:46 PM EDT
[2017-07-19] MEDS ORDERED: POTASSIUM PHOSPHATE MONOBASIC 500 MG TAB PO PRN (21:30)
[2017-07-19] MEDS ORDERED: POTASSIUM CHLOR 40 MEQ PREMIX 100 ML IV PRN ×2 (21:30)
[2017-07-19] MEDS ORDERED: DEXTROSE 50% IN WATER 50 ML VIAL(D50) IV PUSH PRN (21:30)
[2017-07-19] MEDS ORDERED: SODIUM PHOSPHATE INJ 30 MMOL in SODIUM CHLOR 0.9% 250 ML INJ 240 ML IV PRN (21:30)
[2017-07-19] MEDS ORDERED: MAGNESIUM SULFATE INJ 4 GM in SODIUM CHLORIDE 0.9% INJ 92 ML IV PRN (21:30)
[2017-07-19] MEDS ORDERED: RESP: ALBUTEROL 2.5 MG/IPRATROPIUM 0.5 MG NEB (PRN) INH (21:30)
[2017-07-19] MEDS ORDERED: POTASSIUM CHLOR 20 MEQ PREMIX 100 ML IV PRN ×2 (21:30)
[2017-07-19] MEDS ORDERED: POTASSIUM CHLORIDE 25 MEQ EFFERVESCENT TAB PO PRN (21:30)
[2017-07-19] MEDS ORDERED: POTASSIUM PHOSPHATE MONOBASIC 500 MG TAB PO/TUBE PRN (21:30)
[2017-07-19] MEDS ORDERED: MAGNESIUM SULFATE INJ 2 GM in SODIUM CHLORIDE 0.9% INJ 96 ML IV PRN (21:30)
[2017-07-19] MEDS ORDERED: POTASSIUM PHOSPHATE INJ 30 MMOL in SODIUM CHLOR 0.9% 250 ML INJ 250 ML IV PRN (21:30)
[2017-07-19] MEDS ORDERED: MAGNESIUM OXIDE 400 MG TAB PO PRN (21:30)
--- NOTE | 2017-07-19 21:42 | HHI.HP ---
[facility] Service Critical Care Medicine Primary Care Physician Ania Gannon MD Admission Diagnosis RESPIRATORY FAILURE Diagnosis: Chief Complaint: shortness of breath Travel History International Travel<30 Days: No Contact w/Intl Traveler <30 Da: No Traveled to Known Affected Are: No History of Present Illness This is a 47-year-old male with a history of morbid obesity and asthma/COPD who presents with new onset worsening shortness of breath and presyncopal type symptoms for the last 1 week. Of note, he was diagnosed with a small subsegmental left lower lobe PE about 8 months ago was on Coumadin up until 6 weeks ago when he had a left heart catheterization with stenting by Dr. Hirsch with [facility] process checker and was since transition to aspirin Plavix. Also of note, the patient approximately 3 days ago had sudden onset right ankle pain and swelling and went to be evaluated by customer service leader and was diagnosed with a possible Achilles tendon rupture. He describes the shortness of breath is slowly worsening in the sense that he just cannot catch his breath. It is worse with exertion. He does not have any symptoms that are concerning for orthopnea, paroxysmal nocturnal dyspnea. Denies cough or fever. Denies sputum production. He does endorse cold intolerance and intermittent chills over the last 1 week. His and her father were both recently hospitalized for what she describes as "pneumonia which was not present on chest x-ray but only diagnosed on CAT scan" and she states was accompanied by "Sirs response". He states he has never been worked up or diagnosed with sleep apnea, however his states that he intermittently stops breathing and gasp for air and when he does breathe he has significant snoring with any resting or sleeping. He endorses fatigue, generalized daytime sleepiness. He denies nausea, vomiting, diarrhea, constipation, abdominal pain. The remainder of the review systems is negative. In the emergency department he was found to have a chest x-ray concerning for cardiomegaly with questionable pulmonary vascular congestion. His creatinine is slightly elevated at 1.6, so a VQ scan was ordered which was low probability for PE. He was placed on heparin drip and transferred from the [place] emergency department to the [facility] ICU. In the emergency department he was found to be quite hypoxic and hypercarbic with a primary respiratory acidosis and was placed on BiPAP. Review of Systems Constitutional: COMPLAINS OF: Fatigue, Chills, DENIES: Diaphoretic episodes, Fever, Weight gain, Weight loss, Dizziness, Change in appetite, Night Sweats Endocrine: COMPLAINS OF: Heat/cold intolerance, DENIES: Polydipsia, Polyuria, Polyphagia Eyes: DENIES: Blurred vision, Eye inflammation, Eye pain, Vision loss Respiratory: COMPLAINS OF: Snoring, Shortness of breath, DENIES: Apneas, Cough , Wheezing, Hemoptysis, Sputum production Cardiovascular: COMPLAINS OF: Dyspnea on Exertion, DENIES: Chest pain, Palpitations, Syncope, PND, Lower Extremity Edema, Orthopnea, Claudication Gastrointestinal: DENIES: Abdominal pain, Black stools, Bloody stools, Constipation, Diarrhea, Nausea, Vomiting, Difficulty Swallowing Musculoskeletal: DENIES: Joint pain, Muscle aches, Stiffness, Joint Swelling Neurologic: DENIES: Abnormal gait, Headache, Localized weakness Psychiatric: DENIES: Anxiety, Confusion Past Family Social History Allergies: Coded Allergies: codeine (Verified Allergy, Severe, Itching, 07/19/17) tramadol (Verified Allergy, Unknown, 07/19/17) clonidine (Unverified Adverse Reaction, Severe, ARNDT, dry mouth, "felt drunk ", 07/19/17) lisinopril (Verified Adverse Reaction, Unknown, abnormal labs K level, ) Past Medical History Arthritis Asthma Anxiety Depression Irregular heart rate Hypertension Coronary artery disease status post PCI 1 Hypercholesterolemia COPD Type 2 diabetes Gout Kidney stones Bilateral lower extremity neuropathy History of prior acute renal failure Past Surgical History Anal fissures Coronary artery stent Left inner thigh abscess removed Tonsillectomy Reported Medications [place] (Hydrocodone-Acetaminophen) 5 Mg-325 Mg Tab 1 Tab PO Q6H PRN Aspirin DR (Aspirin) 81 Mg Tabdr 81 Mg PO DAILY Atorvastatin (Atorvastatin Calcium) 40 Mg Tab 40 Mg PO HS Novolog Inj (Insulin Aspart) 1,000 Unit/10 Ml Vial 0 SQ DIRECTED Sliding Scale as directed. Hydralazine (Hydralazine HCl) 100 Mg Tab 50 Mg PO TID Take with meals Gabapentin 100 Mg Cap 200 Mg PO TID Clopidogrel (Clopidogrel Bisulfate) 75 Mg Tab 75 Mg PO DAILY Glimepiride 2 Mg Tab 2 Mg PO BIDAC Carvedilol 25 Mg Tab 25 Mg PO BID Amlodipine (Amlodipine Besylate) 5 Mg Tab 5 Mg PO BID Furosemide 40 Mg Tab 40 Mg PO DAILY Zyloprim (Allopurinol) 100 Mg Tab 100 Mg PO DAILY Paxil (Paroxetine HCl) 10 Mg Tab 20 Mg PO DAILY Metformin ER (Metformin HCl) 750 Mg Lico 750 Mg PO BID HOLD UNTIL FURTHER NOTICE Xanax (Alprazolam) 1 Mg Tab 1 Mg PO HS PRN Active Ordered Medications See MAR Family History Reviewed the chart and found to be noncontributory to his acute illness Social History Former smoker, smoked half pack per day, quit at age 36, 11 years ago. Denies current alcohol use, prior beer drinker. Denies other drugs. Physical Exam Vital Signs Vital Signs Date Time Temp Pulse Resp B/P (MAP) Pulse Ox O2 Delivery O2 Flow Rate FiO2 07/19/17 21:32 82 07/19/17 21:00 98 40 07/19/17 20:24 20 88 148/85 (106) 95 BiPAP 07/19/17 17:58 88 20 102/56 (71) 98 BiPAP 07/19/17 17:10 94 6.00 50 07/19/17 16:58 79 20 114/56 (75) 99 BiPAP 07/19/17 16:34 91 40 07/19/17 16:10 96 40 07/19/17 15:44 78 20 102/57 (72) 98 BiPAP 07/19/17 15:08 95 50 07/19/17 14:43 88 22 108/57 (74) 100 Non-Rebreather 10.00 07/19/17 14:30 97 Non-Rebreather 9.00 100 07/19/17 14:15 99.5 99 24 138/82 (100) 77 Physical Exam GENERAL: Morbidly obese male, lying in bed, BiPAP in place HEENT: Normocephalic. Atraumatic. Pupils equal, round, reactive, conjugate. Mucous membranes are moist NECK: Trachea is midline. Large kelly and large neck circumference prevent accurate assessment of JVD CHEST: Equal chest rise. BiPAP in place. FiO2 40%. SPO2 100%. CARDIOVASCULAR: Normal rate, regular rhythm. Appears sinus by telemetry. ABDOMEN: Morbidly obese, soft, nontender, nondistended. No guarding. MUSCULOSKELETAL: Pulses 2+. No peripheral edema. Right lower extremity is wrapped in Ronnell bandage with a heel splint in place. NEUROLOGICAL: RASS 0. GCS 15. Follows commands. No focal deficits. Laboratory Laboratory Tests Test 07/19/17 14:15 07/19/17 14:30 07/19/17 16:47 White Blood Count 9.4 Red Blood Count 3.87 Hemoglobin 10.5 Hematocrit 31.5 Mean Corpuscular Volume 81.3 Mean Corpuscular Hemoglobin 27.1 Mean Corpuscular Hemoglobin Concent 33.4 Red Cell Distribution Width 14.4 Platelet Count 241 Mean Platelet Volume 7.1 Neutrophils (%) (Auto) 77.7 Lymphocytes (%) (Auto) 9.5 Monocytes (%) (Auto) 12.1 Eosinophils (%) (Auto) 0.4 Basophils (%) (Auto) 0.3 Neutrophils # (Auto) 7.4 Lymphocytes # (Auto) 0.9 Monocytes # (Auto) 1.1 Eosinophils # (Auto) 0.0 Basophils # (Auto) 0.0 CBC Comment DIFF FINAL Differential Comment Prothrombin Time 9.9 Prothromb Time International Ratio 1.0 Activated Partial Thromboplast Time 30.2 Blood Urea Nitrogen 49 Creatinine 1.60 Random Glucose 234 Total Protein 7.2 Albumin 2.7 Calcium Level 8.4 Magnesium Level 2.1 Alkaline Phosphatase 176 Aspartate Amino Transf (AST/SGOT) 21 Alanine Aminotransferase (ALT/SGPT) 41 Total Bilirubin 0.3 Sodium Level 134 Potassium Level 5.1 Chloride Level 100 Carbon Dioxide Level 26.9 Anion Gap 7 Estimat Glomerular Filtration Rate 47 Troponin I LESS THAN 0.02 B-Type Natriuretic Peptide 77 Blood Gas Puncture Site LT RADIAL LT RADIAL Blood Gas Patient Temperature 98.6 98.6 Blood Gas HCO3 27 27 Blood Gas Base Excess 0.2 0.6 Blood Gas Oxygen Saturation 96 96 Arterial Blood pH 7.25 7.26 Arterial Blood Partial Pressure CO2 63 63 Arterial Blood Partial Pressure O2 162 108 Arterial Blood Oxygen Content 14.5 12.9 Arterial Blood Carboxyhemoglobin 2.1 2.0 Arterial Blood Methemoglobin 1.1 1.0 Blood Gas Hemoglobin 10.5 9.4 Oxygen Delivery Device NRM BIPAP Blood Gas Liter Flow 10 Blood Gas Inspired Oxygen 100 50 Blood Gas Ventilator Setting 18 IPAP/6 EPAP Result Diagram: 07/19/17 1415 07/19/17 1415 Imaging Last 24 hours Impressions Lung Scan-V Nuclear Medicine 07/19/17 1528 Signed Impressions: CONCLUSION: 1. Low probability for pulmonary embolism. Compensated cardiomegaly. If high c linical suspicion CT angiogram would be of benefit. Chest X-Ray 07/19/17 5835 Signed Impressions: CONCLUSION: 1. Mild cardiomegaly with mild persistent positive fluid balance. Septic Shock Reassessment Septic shock perfusion: reassessment completed Caprini VTE Risk Assessment Caprini VTE Risk Assessment: Mod/High Risk (score >= 2) Caprini Risk Assessment Model Point Value = 1 Point Value = 2 Point Value = 3 Point Value = 5 Age 41-60 Minor surgery BMI > 25 kg/m2 Swollen legs Varicose veins or History of unexplained or recurrent spontaneous Oral contraceptives or hormone replacement Sepsis (< 1 month) Serious lung disease, including pneumonia (< 1 month) Abnormal pulmonary function Acute myocardial infarction Congestive heart failure (< 1 month) History of inflammatory bowel disease Medical patient at bed rest Age 61-74 Arthroscopic surgery Major open surgery (> 45 min) Laparoscopic surgery (> 45 min) Malignancy Confined to bed (> 72 hours) Immobilizing plaster cast Central venous access Age >= 75 History of VTE Family history of VTE Factor V Leiden Prothrombin [id number] Lupus anticoagulant Anticardiolipin antibodies Elevated serum homocysteine Heparin-induced thrombocytopenia Other congenital or acquired thrombophilia Stroke (< 1 month) Elective arthroplasty Hip, pelvis, or leg fracture Acute spinal cord injury (< 1 month) Prophylaxis Regimen Total Risk Factor Score Risk Level Prophylaxis Regimen 0-1 Low Early ambulation 2 Moderate Order ONE of the following: *Sequential Compression Device (SCD) *Heparin 5000 units SQ BID 3-4 Higher Order ONE of the following medications: *Heparin 5000 units SQ TID *Enoxaparin/Lovenox 40 mg SQ daily (WT < 150 kg, CrCl > 30 mL/min) *Enoxaparin/Lovenox 30 mg SQ daily (WT < 150 kg, CrCl > 10-29 mL/min) *Enoxaparin/Lovenox 30 mg SQ BID (WT < 150 kg, CrCl > 30 mL/min) AND/OR *Sequential Compression Device (SCD) 5 or more Highest Order ONE of the following medications: *Heparin 5000 units SQ TID (Preferred with Epidurals) *Enoxaparin/Lovenox 40 mg SQ daily (WT < 150 kg, CrCl > 30 mL/min) *Enoxaparin/Lovenox 30 mg SQ daily (WT < 150 kg, CrCl > 10-29 mL/min) *Enoxaparin/Lovenox 30 mg SQ BID (WT < 150 kg, CrCl > 30 mL/min) AND *Sequential Compression Device (SCD) Assessment and Plan Assessment and Plan Assessment: 47-year-old male with morbid obesity and history of prior pulmonary embolism and likely obesity hypoventilation syndrome who presents with acute hypoxic and hypercarbic respiratory failure requiring noninvasive positive pressure ventilation. Admit ICU. Will need anticoagulation given recent PE, although it does not appear that he has an acute PE is complicating his acute illness. He certainly likely has some element of right ventricular dysfunction secondary to obesity, COPD, OHS, PE, or combination of all these things. However, does not appear he is an acute right heart failure given his low BNP and no symptoms of current right heart dysfunction. Certainly he may benefit from slight diuresis. Admit ICU is critically ill with respiratory failure requiring NIPPV. Given his multiple respiratory comorbidities, opiate medication is likely not of overall benefit him, and he would likely benefit from non-opiate pharmacologic interventions for his acute ankle pain. Plan by systems: Neurologic: Frequent neurochecks Avoid his [place] at this time Avoid Xanax Respiratory: Obesity hypoventilation syndrome Recent history of pulmonary embolism Acute COPD exacerbation Acute hypoxic and hypercarbic respiratory failure requiring noninvasive positive pressure ventilation BiPAP Wean FiO2 for goal SPO2 greater than 90% Serial ABGs Steroids Nebs Head of bed elevated Cardiovascular: Recent history of pulmonary embolism May likely have some chronic right ventricular dysfunction, but no acute exacerbation Continue heparin drip We will need to transition to prolonged and a coagulation will consult cardiology [facility] group as he will likely need RHC and evaluation for right heart dysfunction as we further investigate his dyspnea. Renal: Acute kidney injury Unclear etiology, may be chronic hypoxemia Trend on daily BMP -- Strict I/Os FEN/GI: Morbid obesity N.p.o. while in respiratory failure Advance diet if his respiratory status improves IC electrolyte protocol Daily BMP Heme/ID: Anemia, unclear etiology, may be acute blood loss Iron studies Continue heparin drip Trend CBC If hemoglobin stable we will need to transition to long-term anticoagulation recent history by his of hospitalized illness may be atypical pneumonia/ mycoplasma pneumonia. will place patient on iv azithromycin and order mycoplasma titers as well as influenza swab. if mycoplasma titers are negative, I would be in favor of discontinuing abx, as the patient's presentation does not appear to be infectious in etiology. Endocrine: Diabetes mellitus, type II -- SSI - cold intolerance could be symptoms of hypothyroidism. will check tsh and free t4. Prophylaxis: GI Prophylaxis Pepcid DVT Prophylaxis -- SCDs Heparin infusion Lines: Peripheral IVs Dispo: Admit to ICU. Critically ill. This patient remains critically ill with one or more organ systems which are or may become a threat to life. I have spent in excess of 36 minutes discontinuously in the care and management of this patient. This time is exclusive of procedures, and includes, but is not limited to, evaluation of the patient, review of the medical record, discussions with family, consultants, nursing staff, or respiratory therapy, and documentation in the medical record. Van Hale MD July 19, 2017 21:42
[2017-07-19] MEDS ORDERED: CHLORHEXIDINE GLUCONATE 2 % 1 PACK (2 CLOTHS) TOP PRN (21:45)
[2017-07-19] MEDS ORDERED: MAGNESIUM HYDROXIDE SUSP 30 ML CUP PO PRN (21:45)
[2017-07-19] MEDS ORDERED: NURSING INFORMATION XX SCH (21:45)
[2017-07-19] MEDS ORDERED: BISACODYL 10 MG SUPP RECTAL PRN (21:45)
[2017-07-19] MEDS ORDERED: LACTULOSE SYRUP 20 GM/30 ML CUP PO PRN (21:45)
[2017-07-19] MEDS ORDERED: GLUCAGON 1 MG/ML VIAL OTHER PRN (21:45)
[2017-07-19] MEDS ORDERED: SENNOSIDES 8.6 MG TAB PO PRN (21:45)
[2017-07-19] MEDS: HEPARIN-D5W 25,000 U/250 ML 250 ML IV PRN (22:28)
[2017-07-19] MEDS: RESP: ALBUTEROL 2.5 MG/IPRATROPIUM 0.5 MG NEB (SCH) INH (22:53)
[2017-07-19] MEDS: AZITHROMYCIN INJ 500 MG in SODIUM CHLOR 0.9% 250 ML INJ 250 ML IV SCH (23:46)
[2017-07-20] VITALS (16 sets, daily range): BP systolic 125–163; BP diastolic 73–84; PULSE 73–94; RESP 8–26; TEMP 97.8–99.1; O2SAT 94–100
[2017-07-20] MEDS ORDERED: ACETAMINOPHEN 1000 MG/100 ML 100 ML IV SCH (02:15)
[2017-07-20] MEDS: INSULIN NovoLIN REGULAR SUPPLEMENTAL SCALE SQ SCH ×5 (03:00→21:02)
[2017-07-20] MEDS: RESP: ALBUTEROL 2.5 MG/IPRATROPIUM 0.5 MG NEB (SCH) INH ×5 (03:12→20:48)
[2017-07-20] MEDS: CHLORHEXIDINE GLUCONATE 2 % 1 PACK (2 CLOTHS) TOP SCH (03:45)
[2017-07-20 05:27] LABS: HEMATOCRIT 29.3 % (39.0-51.0); HEMOGLOBIN 9.5 GM/DL (13.0-17.0); MEAN CELL VOLUME 81.8 FL (80.0-100.0); MEAN CORPUSCULAR HEMOGLOBIN 26.7 PG (27.0-34.0); MEAN CORPUSCULAR HGB CONC 32.6 % (32.0-36.0); MEAN PLATELET VOLUME 7.2 FL (7.0-11.0); PLATELET COUNT 246 TH/MM3 (150-450); RED BLOOD COUNT 3.58 MIL/MM3 (4.50-5.90); RED CELL DISTRIBUTION WIDTH 14.8 % (11.6-17.2); WHITE BLOOD COUNT 7.8 TH/MM3 (4.0-11.0)
[2017-07-20 05:50] LABS: BICARBONATE 27.7 MEQ/L (21.0-32.0); BLOOD UREA NITROGEN 47 MG/DL (7-18); CALCIUM 8.3 MG/DL (8.5-10.1); CHLORIDE 100 MEQ/L (98-107); CREATININE 1.58 MG/DL (0.60-1.30); GLOMERULAR FILTRATION RATE 47 ML/MIN (>89); GLUCOSE,RANDOM 105 MG/DL (74-106); IRON (FE) 17 MCG/DL (65-175); SODIUM (NA) 137 MEQ/L (136-145)
--- NOTE | 2017-07-20 05:50 | RADRPT ---
EXAM DATE: 07/20/2017 5:47 AM EDT AGE/SEX: 47 years / Male INDICATIONS: Shortness of breath. CLINICAL DATA: This is the patient's subsequent encounter. Patient reports that signs and symptoms h ave been present for 4 - 6 days and indicates a pain score of 0/10. MEDICAL/SURGICAL HISTORY: Hypertension. Chronic obstructive pulmonary disease. Coronary artery stent. COMPARISON: [facility], CHEST PA & LAT, 07/13/2015. . FINDINGS: There is mild haziness to the perivascular structures most likely pulmonary edema. Slight cardiomegaly seen. Focal consolidation is not seen. CONCLUSION: Slight CHF Electronically signed by: Devan Mai MD 07/20/2017 5:49 AM EDT
[2017-07-20 06:15] LABS: % SATURATION IRON PROFILE 5.1 % (20-50); FERRITIN 68 NG/ML (26-388); FREE T4 0.93 NG/DL (0.76-1.46); TOTAL IRON BINDING CAPACITY 336 MCG/DL (250-450)
--- NOTE | 2017-07-20 07:20 | HHI.CCPN ---
Subjective Remarks/Hospital Course This is a 47-year-old male with a history of morbid obesity and asthma/COPD who presents with new onset worsening shortness of breath and presyncopal type symptoms for the last 1 week. Of note, he was diagnosed with a small subsegmental left lower lobe PE about 8 months ago was on Coumadin up until 6 weeks ago when he had a left heart catheterization with stenting by Dr. 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 Also of note, the patient approximately 3 days ago had sudden onset right ankle pain and swelling and went to be evaluated by life assurance representative and was diagnosed with a possible Achilles tendon rupture. He describes the shortness of breath is slowly worsening in the sense that he just cannot catch his breath. It is worse with exertion. He does not have any symptoms that are concerning for orthopnea, paroxysmal nocturnal dyspnea. Denies cough or fever. Denies sputum production. He does endorse cold intolerance and intermittent chills over the last 1 week. His and her father were both recently hospitalized for what she describes as "pneumonia which was not present on chest x-ray but only diagnosed on CAT scan" and she states was accompanied by "Sirs response". He states he has never been worked up or diagnosed with sleep apnea, however his states that he intermittently stops breathing and gasp for air and when he does breathe he has significant snoring with any resting or sleeping. He endorses fatigue, generalized daytime sleepiness. He denies nausea, vomiting, diarrhea, constipation, abdominal pain. The remainder of the review systems is negative. In the emergency department he was found to have a chest x-ray concerning for cardiomegaly with questionable pulmonary vascular congestion. His creatinine is slightly elevated at 1.6, so a VQ scan was ordered which was low probability for PE. He was placed on heparin drip and transferred from the [place] emergency department to the [facility] ICU. In the emergency department he was found to be quite hypoxic and hypercarbic with a primary respiratory acidosis and was placed on BiPAP. SUBJECTIVE: 07/20: Currently on BiPAP 18/8 at 50%. Worsening pH overnight. Arousable does follow commands. Plan for MRI of the right lower extremity today. Awake and oriented to person and place and year. Objective Vital Signs Date Time Temp Pulse Resp B/P (MAP) Pulse Ox O2 Delivery O2 Flow Rate FiO2 5/30/18 07:13 99 Bi-Pap 60 07/20/17 04:00 98.3 88 10 139/76 (97) 07/19/17 17:10 6.00 Intake and Output 07/20/17 07/20/17 07/21/17 08:00 16:00 00:00 Intake Total 800 ml Output Total 500 ml Balance 300 ml Result Diagram: 07/20/17 0420 07/20/17 0420 Imaging Last Impressions Chest X-Ray 07/20/17 0600 Signed Impressions: CONCLUSION: Slight CHF Lung Scan-VQ Nuclear Medicine 07/19/17 1528 Signed Impressions: CONCLUSION: 1. Low probability for pulmonary embolism. Compensated cardiomegaly. If high c linical suspicion CT angiogram would be of benefit. Objective Remarks GENERAL: Morbidly obese male, lying in bed, BiPAP in place in no acute distress HEENT: Normocephalic. Atraumatic. Pupils equal, round, reactive, conjugate about 3 mm bilaterally. Mucous membranes are moist NECK: Trachea is midline. Large kelly and large neck circumference prevent accurate assessment of JVD CHEST: Equal chest rise. Diminished. BiPAP in place. Positive end expiratory wheeze. CARDIOVASCULAR: Normal rate, regular rhythm. S1, S2 no S4. Diminished ABDOMEN: Morbidly obese, soft, nontender, nondistended. Hypoactive bowel sounds appreciated MUSCULOSKELETAL: Pulses 2+. No peripheral edema. Right lower extremity is wrapped in Ronnell bandage with a heel splint in place. NEUROLOGICAL: Cranial nerves II through XII grossly intact. Strength is equal symmetric. Normal sensation. Follows commands. No focal deficits. Urinary Catheter: No Assessment to: Continue Vascular Central Line Catheter: No Assessment to: Continue A/P Assessment and Plan Neuro/Psych: Depression/anxiety Recent opioid use Peripheral neuropathy Frequent neurochecks Hydrocodone/acetaminophen will be avoided at this time Avoid alprazolam 1 mg at night as needed anxiety Resume paroxetine 20 mg p.o. daily for pressure Holding gabapentin 200 mg 3 times daily for neuropathy Discussed with patient. Okay for hydrocodone/acetaminophen 5/325 one tablet every 4 hours as needed pain. Has been on in past without adverse reaction Respiratory: Obesity hypoventilation syndrome Recent history of pulmonary embolism/right upper lobe 2017 Acute COPD exacerbation Acute hypoxic and hypercarbic respiratory failure requiring noninvasive positive pressure ventilation BiPAP 18/8 at 50% Wean FiO2 for goal SPO2 greater than 90% Serial ABGs. Currently methylprednisolone succinate 60 mg IV twice daily Albuterol/ipratropium aerosols every 4 hours with albuterol aerosols every 2 hours as needed dyspnea Head of bed elevated VQ scan admission low probability for pulmonary embolism Cardiovascular: Recent history of pulmonary embolism Essential hypertension Hyperlipidemia -triglycerides predominant with elevated LDH Coronary disease history of stent History of atrial fibrillation Continue heparin drip at 1900 units an hour We will need to transition to prolonged anticoagulation Pending consult cardiology [facility] group as he will likely need RHC and evaluation for right heart dysfunction as we further investigate his dyspnea. 2D echocardiogram 06/08 reveals EF 50%. LVH. LVD. Currently on carvedilol 25 twice daily, hydralazine 50 3 times daily amlodipine 5 mg twice daily Aspirin 81 mg daily and clopidogrel 75 twice daily will be resumed Atorvastatin 40 mg at night for dyslipidemia Furosemide 40 mg daily Renal: Acute kidney injury -baseline creatinine one-point Unclear etiology, may be chronic hypoxemia Trend on daily BMP -- Strict I/Os Avoid nephrotoxic drugs Check urine eosinophils and electrolytes Check renal ultrasound FEN/GI: Elevated BMI N.p.o. while in respiratory failure Advance diet if his respiratory status improves ICU electrolyte protocol Weight loss encouraged Famotidine for GI prophylaxis Docusate sodium/senna 1 tablet twice daily for bowel regimen Heme/ID: Normocytic hypochromic anemia Iron studies revealed low FE with normal TIBC. Normal ferritin. Hemoccult pending Continue heparin drip Trend CBC. Currently 9.5 Anticoagulation will discuss with cardiology recent history by his of hospitalized illness may be atypical pneumonia/ mycoplasma pneumonia. will place patient on iv azithromycin and order mycoplasma titers and Chlamydia as well as influenza swab. Blood cultures 2, sputum ordered as well Endocrine: Diabetes mellitus, type II Gout Holding glimepiride 2 milligrams twice daily and metformin 750 mg p.o. twice daily Allopurinol 100 mg p.o. daily for gout -- SSI Novulin R Accu-Cheks before meals at [id number] TSH is 1.28. MSK Osteoporosis/arthritis PT evaluate and treat Prophylaxis: GI Prophylaxis Famotidine DVT Prophylaxis -- SCDs Heparin infusion Lines: Peripheral IVs Level 2 follow-up Leonard Cochran MD July 20, 2017 07:20
--- NOTE | 2017-07-20 07:48 | PD.CONS ---
HPI Consult Requested By Primary Care Physician Ania Gannon MD History of Present Illness 47-year-old male with past medical history of CAD status post PCI 06/17/17, diastolic CHF, COPD, HTN, HLD, DM who presented for shortness of breath and somnolence. History obtained from patient and at bedside. For the past week or so the patient has been having worsening shortness of breath. He is also been having increased daytime somnolence with some confusion. Of note he has been taking [place] for his Achilles tendon rupture. He has been having some chest heaviness as well somewhat similar to the discomfort he had prior to his stent, but not as severe. He was found to be in hypercapnic respiratory failure and has been placed on BiPAP. His chest x-ray was suggestive of mild edema, but his BNP was 77. His EKG did not show any acute ischemic changes and his initial troponin was 0.02. We are consulted to evaluate for possible right heart catheterization. Echocardiogram 06/09/17 showed moderately dilated left ventricle, mild concentric LVH, and EF 50%. (Lewis Dexter) Review of Systems Negative except as stated in the HPI (Lewis Dexter) Past Family Social History Allergies: Coded Allergies: codeine (Verified Allergy, Severe, Itching, 07/19/17) tramadol (Verified Allergy, Unknown, 07/19/17) clonidine (Unverified Adverse Reaction, Severe, ARNDT, dry mouth, "felt drunk ", 07/19/17) lisinopril (Verified Adverse Reaction, Unknown, abnormal labs K level, ) Past Medical History Arthritis Asthma Anxiety Depression Irregular heart rate Hypertension Coronary artery disease status post PCI 1 Hypercholesterolemia COPD Type 2 diabetes Gout Kidney stones Bilateral lower extremity neuropathy History of prior acute renal failure Past Surgical History Anal fissures Coronary artery stent Left inner thigh abscess removed Tonsillectomy Reported Medications Reported Meds & Active Scripts Active [place] (Hydrocodone-Acetaminophen) 5 Mg-325 Mg Tab 1 Tab PO Q6H PRN Aspirin DR (Aspirin) 81 Mg Tabdr 81 Mg PO DAILY Atorvastatin (Atorvastatin Calcium) 40 Mg Tab 40 Mg PO HS Novolog Inj (Insulin Aspart) 1,000 Unit/10 Ml Vial 0 SQ DIRECTED Sliding Scale as directed. Reported Hydralazine (Hydralazine HCl) 100 Mg Tab 50 Mg PO TID Take with meals Gabapentin 100 Mg Cap 200 Mg PO TID Clopidogrel (Clopidogrel Bisulfate) 75 Mg Tab 75 Mg PO DAILY Glimepiride 2 Mg Tab 2 Mg PO BIDAC Carvedilol 25 Mg Tab 25 Mg PO BID Amlodipine (Amlodipine Besylate) 5 Mg Tab 5 Mg PO BID Furosemide 40 Mg Tab 40 Mg PO DAILY Zyloprim (Allopurinol) 100 Mg Tab 100 Mg PO DAILY Paxil (Paroxetine HCl) 10 Mg Tab 20 Mg PO DAILY Metformin ER (Metformin HCl) 750 Mg [place] 750 Mg PO BID HOLD UNTIL FURTHER NOTICE Xanax (Alprazolam) 1 Mg Tab 1 Mg PO HS PRN Active Ordered Medications Current Medications Medications (Trade) Dose Ordered Sig/Nara Route Start Time Stop Time Status Last Admin Heparin Sodium/ Dextrose 250 ml @ 18 mls/hr TITRATE PRN IV 07/19/17 18:30 07/19/17 22:28 (SoluMEDROL INJ) 60 mg Q12HR IV PUSH 07/20/17 09:00 (Duoneb Neb) 1 ampule Q4HR NEB INH 07/20/17 00:00 07/20/17 03:12 Potassium Chloride 100 ml @ 50 mls/hr Q2H PRN IV 07/19/17 21:30 Potassium Chloride 100 ml @ 50 mls/hr Q2H PRN IV 07/19/17 21:30 (K-Lyte Cl Eff) 50 meq UNSCH PRN PO 07/19/17 21:30 Potassium Chloride 100 ml @ 25 mls/hr UNSCH PRN IV 07/19/17 21:30 Potassium Chloride 100 ml @ 50 mls/hr Q2H PRN IV 07/19/17 21:30 Magnesium Sulfate 4 gm/Sodium Chloride 100 ml @ 50 mls/hr UNSCH PRN IV 07/19/17 21:30 (Mag-Ox) 800 mg UNSCH PRN PO 07/19/17 21:30 Magnesium Sulfate 2 gm/Sodium Chloride 100 ml @ 50 mls/hr UNSCH PRN IV 07/19/17 21:30 (K-Phos) 2,000 mg Q4H PRN PO 07/19/17 21:30 Sodium Phosphate 30 mmol/Sodium Chloride 250 ml @ 42 mls/hr UNSCH PRN IV 07/19/17 21:30 (K-Phos) 2,000 mg UNSCH PRN PO/TUBE 07/19/17 21:30 Potassium Phosphate 30 mmol/ Sodium Chloride 260 ml @ 42 mls/hr UNSCH PRN IV 07/19/17 21:30 (D50w (Vial) Inj) 25 ml UNSCH PRN IV PUSH 07/19/17 21:30 (NovoLIN R SUPPLEMENTAL SCALE) 1 ACHS AND 3AM SQ 07/20/17 03:00 (Pepcid) 20 mg Q12HR PO 07/20/17 09:00 [place] [place] 1 Q361D XX 07/19/17 21:45 07/19/17 23:46 (Chlorhexidine 2% Cloth) 3 pack Taper DAILY@04 TOP 07/20/17 04:00 07/16/18 03:59 07/20/17 03:45 (Chlorhexidine 2% Cloth) 3 pack UNSCH PRN TOP 07/19/17 21:45 (Ely-Colace) 1 tab BID PO 07/20/17 09:00 (Milk Of Magnesia Liq) 30 ml Q12H PRN PO 07/19/17 21:45 (Senokot) 17.2 mg Q12H PRN PO 07/19/17 21:45 (Dulcolax Supp) 10 mg DAILY PRN RECTAL 07/19/17 21:45 (Lactulose Liq) 30 ml DAILY PRN PO 07/19/17 21:45 (Glucagon Inj) 1 mg UNSCH PRN OTHER 07/19/17 21:45 Azithromycin 500 mg/Sodium Chloride 250 ml @ 250 mls/hr Q24H IV 07/19/17 23:00 07/19/17 23:46 (Zyloprim) 100 mg DAILY PO 07/20/17 09:00 (Norvasc) 5 mg BID PO 07/20/17 09:00 (Ecotrin Ec) 81 mg DAILY PO 07/20/17 09:00 (Lipitor) 40 mg HS PO 07/20/17 21:00 (Coreg) 25 mg BID PO 07/20/17 09:00 (Plavix) 75 mg DAILY PO 07/20/17 09:00 (Neurontin) 200 mg TID PO 07/20/17 09:00 (Apresoline) 50 mg TID PO 07/20/17 09:00 (Paxil) 20 mg DAILY PO 07/20/17 09:00 Acetaminophen 100 ml @ 400 mls/hr Q6H PRN IV 07/20/17 08:15 (Albuterol Neb) 2.5 mg Q2HR NEB PRN NEB 07/20/17 07:30 Family History Reviewed the chart and found to be noncontributory to his acute illness Social History Former smoker, smoked half pack per day, quit at age 36, 11 years ago. Denies current alcohol use, prior beer drinker. Denies other drugs. (Lewis Dexter) Physical Exam Vital Signs Vital Signs Date Time Temp Pulse Resp B/P (MAP) Pulse Ox O2 Delivery O2 Flow Rate FiO2 07/20/17 07:13 99 Bi-Pap 60 07/20/17 07:00 79 07/20/17 04:30 96 60 07/20/17 04:00 98.3 88 10 139/76 (97) 100 07/20/17 01:50 94 60 07/20/17 00:00 98.4 86 16 158/80 (106) 98 07/19/17 23:00 84 07/19/17 22:40 98 50 07/19/17 21:32 82 07/19/17 21:15 100 BiPAP 40 07/19/17 21:00 98 40 07/19/17 20:24 20 88 148/85 (106) 95 BiPAP 07/19/17 17:58 88 20 102/56 (71) 98 BiPAP 07/19/17 17:10 94 6.00 50 07/19/17 16:58 79 20 114/56 (75) 99 BiPAP 07/19/17 16:34 91 40 07/19/17 16:10 96 40 07/19/17 15:44 78 20 102/57 (72) 98 BiPAP 07/19/17 15:08 95 50 07/19/17 14:43 88 22 108/57 (74) 100 Non-Rebreather 10.00 07/19/17 14:30 97 Non-Rebreather 9.00 100 07/19/17 14:15 99.5 99 24 138/82 (100) 77 Physical Exam GENERAL: Well-developed well-nourished morbidly obese. On BiPAP. NECK: No carotid bruits. No JVD. CARDIOVASCULAR: Regular rate and rhythm. No murmur appreciated. RESPIRATORY: No accessory muscle use. Clear to auscultation. Breath sounds equal bilaterally. MUSCULOSKELETAL: No clubbing or cyanosis. Trace lower extremity edema. Right ankle in [place] wrap. NEUROLOGICAL: The bit sleepy but awakens easily. Normal speech. Laboratory Laboratory Tests Test 07/19/17 14:15 07/19/17 14:30 07/19/17 16:47 07/19/17 21:24 White Blood Count 9.4 Red Blood Count 3.87 Hemoglobin 10.5 Hematocrit 31.5 Mean Corpuscular Volume 81.3 Mean Corpuscular Hemoglobin 27.1 Mean Corpuscular Hemoglobin Concent 33.4 Red Cell Distribution Width 14.4 Platelet Count 241 Mean Platelet Volume 7.1 Neutrophils (%) (Auto) 77.7 Lymphocytes (%) (Auto) 9.5 Monocytes (%) (Auto) 12.1 Eosinophils (%) (Auto) 0.4 Basophils (%) (Auto) 0.3 Neutrophils # (Auto) 7.4 Lymphocytes # (Auto) 0.9 Monocytes # (Auto) 1.1 Eosinophils # (Auto) 0.0 Basophils # (Auto) 0.0 CBC Comment DIFF FINAL Differential Comment Prothrombin Time 9.9 Prothromb Time International Ratio 1.0 Activated Partial Thromboplast Time 30.2 Blood Urea Nitrogen 49 Creatinine 1.60 Random Glucose 234 Total Protein 7.2 Albumin 2.7 Calcium Level 8.4 Magnesium Level 2.1 Alkaline Phosphatase 176 Aspartate Amino Transf (AST/SGOT) 21 Alanine Aminotransferase (ALT/SGPT) 41 Total Bilirubin 0.3 Sodium Level 134 Potassium Level 5.1 Chloride Level 100 Carbon Dioxide Level 26.9 Anion Gap 7 Estimat Glomerular Filtration Rate 47 Troponin I LESS THAN 0.02 B-Type Natriuretic Peptide 77 Blood Gas Puncture Site LT RADIAL LT RADIAL Blood Gas Patient Temperature 98.6 98.6 Blood Gas HCO3 27 27 Blood Gas Base Excess 0.2 0.6 Blood Gas Oxygen Saturation 96 96 Arterial Blood pH 7.25 7.26 Arterial Blood Partial Pressure CO2 63 63 Arterial Blood Partial Pressure O2 162 108 Arterial Blood Oxygen Content 14.5 12.9 Arterial Blood Carboxyhemoglobin 2.1 2.0 Arterial Blood Methemoglobin 1.1 1.0 Blood Gas Hemoglobin 10.5 9.4 Oxygen Delivery Device NRM BIPAP Blood Gas Liter Flow 10 Blood Gas Inspired Oxygen 100 50 Blood Gas Ventilator Setting 18 IPAP/6 EPAP Nasal Screen MRSA (PCR) MRSA NOT DETECTED Test 07/20/17 04:20 07/20/17 04:29 White Blood Count 7.8 Red Blood Count 3.58 Hemoglobin 9.5 Hematocrit 29.3 Mean Corpuscular Volume 81.8 Mean Corpuscular Hemoglobin 26.7 Mean Corpuscular Hemoglobin Concent 32.6 Red Cell Distribution Width 14.8 Platelet Count 246 Mean Platelet Volume 7.2 Activated Partial Thromboplast Time 35.8 Blood Urea Nitrogen 47 Creatinine 1.58 Random Glucose 105 Calcium Level 8.3 Sodium Level 137 Potassium Level 4.8 Chloride Level 100 Carbon Dioxide Level 27.7 Anion Gap 9 Estimat Glomerular Filtration Rate 47 Iron Level 17 Total Iron Binding Capacity 336 Percent Iron Saturation 5.1 Ferritin 68 Vitamin B12 Level 608 Folate 9.0 Free Thyroxine 0.93 Thyroid Stimulating Hormone 3rd Gen 1.280 Blood Gas Puncture Site LT RADIAL Blood Gas Patient Temperature 98.6 Blood Gas HCO3 27 Blood Gas Base Excess 0.0 Blood Gas Oxygen Saturation 95 Arterial Blood pH 7.22 Arterial Blood Partial Pressure CO2 68 Arterial Blood Partial Pressure O2 103 Arterial Blood Oxygen Content 13.0 Arterial Blood Carboxyhemoglobin 1.5 Arterial Blood Methemoglobin 1.0 Blood Gas Hemoglobin 9.6 Oxygen Delivery Device BIPAP10/+5 Blood Gas Inspired Oxygen 60 (Lewis Dexter) Result Diagram: 07/20/17 0420 07/20/17 0420 Imaging Last Impressions Chest X-Ray 07/20/17 0600 Signed Impressions: CONCLUSION: Slight CHF Lung Scan-V Nuclear Medicine 07/19/17 1528 Signed Impressions: CONCLUSION: 1. Low probability for pulmonary embolism. Compensated cardiomegaly. If high c linical suspicion CT angiogram would be of benefit. (Lewis Dexter) Assessment and Plan Assessment and Plan 47-year-old male with past medical history of CAD status post PCI 06/17/17, diastolic CHF, COPD, HTN, HLD, DM who presented for shortness of breath and somnolence Acute hypercapnic respiratory failure: Probably multifactorial with probable component of obesity hypoventilation and recent sedative use. Question of right heart involvement, could consider right heart catheterization when patient clinically stable to do so. Mild renal impairment, hold diuretics for now pending further evaluation of volume status. Discussed Condition With Patient with and RN at bedside, Dr. Dr. Buck Hirsch, Dr. Cochran (Lewis Dexter) Assessment and Plan SOB - multifactorial. less likely cor pulmonale or pulmonary hypertension 2d echo to assess noninvasively on BiPap may consider RHC pending echo (Darryl Jane MD) Lewis Dexetr July 20, 2017 07:48 Darryl Jane MD July 20, 2017 10:58
[2017-07-20] MEDS ORDERED: ACETAMINOPHEN 1000 MG/100 ML 100 ML IV PRN (08:15)
--- NOTE | 2017-07-20 08:23 | RADRPT ---
. EXAM DATE: 07/20/2017 8:13 AM EDT AGE/SEX: 47 years / Male INDICATIONS: Pain. CLINICAL DATA: This is the patient's subsequent encounter. Patient reports that signs and symptoms h ave been present for 3 days and indicates a pain score of Nonresponsive. MEDICAL/SURGICAL HISTORY: Hypertension. Chronic obstructive pulmonary disease. . Coronary anish ry stent. COMPARISON: [facility]PO, ANKLE RIGHT COMPLETE ([id number]), 07/17/2017. . FINDINGS: Alignment is anatomic in fiberglass. Ankle mortise intact. Incomplete evaluation of the hindfoot. CONCLUSION: Alignment in fiberglass. Electronically signed by: Diego Hahn MD 07/20/2017 8:22 AM EDT
[2017-07-20] MEDS: ALLOPURINOL 100 MG TAB PO SCH (08:37)
[2017-07-20] MEDS: PARoxetine HCL 20 MG TAB PO SCH (08:38)
[2017-07-20] MEDS: amLODIPine BESYLATE 5 MG TAB PO SCH ×2 (08:38→21:02)
[2017-07-20] MEDS: hydrALAZINE HCL 50 MG TAB PO SCH ×3 (08:38→17:04)
[2017-07-20] MEDS: CLOPIDOGREL 75 MG TAB PO SCH (08:38)
[2017-07-20] MEDS: CARVEDILOL 12.5 MG TAB PO SCH ×2 (08:38→21:03)
[2017-07-20] MEDS: FAMOTIDINE 20 MG TAB PO SCH (08:38)
[2017-07-20] MEDS: DOCUSATE SODIUM 50 MG/SENNA 8.6 MG TAB PO SCH ×2 (08:39→21:03)
[2017-07-20] MEDS: methylPREDNISolone SOD SUCC 125 MG/2 ML VIAL IV PUSH SCH ×2 (08:39→21:03)
[2017-07-20] MEDS: ASPIRIN EC 81 MG TABEC PO SCH (08:40)
[2017-07-20] MEDS ORDERED: FAMOTIDINE 20 MG TAB PO SCH (09:00)
[2017-07-20] MEDS ORDERED: GABAPENTIN 100 MG CAP PO SCH (09:00)
[2017-07-20 10:19] LABS: TROPONIN I LESS THAN 0.02 NG/ML (0.02-0.05)
[2017-07-20 10:42] LABS: CREATININE, RANDOM URINE 127.4 MG/DL
[2017-07-20] MEDS: HEPARIN-D5W 25,000 U/250 ML 250 ML IV PRN ×2 (11:18→23:45)
--- NOTE | 2017-07-20 14:19 | EKG ---
Date Performed: 07/19/2017 Time Performed: 14:09:40 PTAGE: 47 years EKG: Sinus rhythm INDETERMINATE AXIS LOW QRS VOLTAGE IN PRECORDIAL LEADS INCOMPLETE RIGHT BUNDLE BRANCH BLOCK BORDERLI NE ECG PREVIOUS TRACING : 06/08/2017 22.03 DOCTOR: Darryl Jane Interpretating Date/Time 07/22/2017 07:44:34
[2017-07-20] MEDS: ACETAMINOPHEN/HYDROcodone 325 MG/5 MG TAB PO PRN (15:41)
--- NOTE | 2017-07-20 16:12 | PD.CONS ---
History of Present Illness Service Podiatry Consult Requested By Reason for Consult right achilles pain Primary Care Physician Ania Gannon MD Diagnoses: History of Present Illness Patient states he originally had Achilles pain Right side in early June and was placed in a boot when he saw Dr Blas in the clinic. He decided to take the boot off and do something up on a roof and went up a ladder and felt a pop and pain to back of Right achilles area, followed by bruising. Past Family Social History Allergies: Coded Allergies: codeine (Verified Allergy, Severe, Itching, 07/19/17) tramadol (Verified Allergy, Unknown, 07/19/17) clonidine (Unverified Adverse Reaction, Severe, ARNDT, dry mouth, "felt drunk ", 07/19/17) lisinopril (Verified Adverse Reaction, Unknown, abnormal labs K level, ) Past Medical History Arthritis Asthma Anxiety Depression Irregular heart rate Hypertension Coronary artery disease status post PCI 1 Hypercholesterolemia COPD Type 2 diabetes Gout Kidney stones Bilateral lower extremity neuropathy History of prior acute renal failure Past Surgical History Anal fissures Coronary artery stent Left inner thigh abscess removed Tonsillectomy Active Ordered Medications Current Medications Medications (Trade) Dose Ordered Sig/Nara Route Start Time Stop Time Status Last Admin Heparin Sodium/ Dextrose 250 ml @ 18 mls/hr TITRATE PRN IV 07/19/17 18:30 07/20/17 11:18 (SoluMEDROL INJ) 60 mg Q12HR IV PUSH 07/20/17 09:00 07/20/17 08:39 (Duoneb Neb) 1 ampule Q4HR NEB INH 07/20/17 00:00 07/20/17 16:01 Potassium Chloride 100 ml @ 50 mls/hr Q2H PRN IV 07/19/17 21:30 Potassium Chloride 100 ml @ 50 mls/hr Q2H PRN IV 07/19/17 21:30 (K-Lyte Cl Eff) 50 meq UNSCH PRN PO 07/19/17 21:30 Potassium Chloride 100 ml @ 25 mls/hr UNSCH PRN IV 07/19/17 21:30 Potassium Chloride 100 ml @ 50 mls/hr Q2H PRN IV 07/19/17 21:30 Magnesium Sulfate 4 gm/Sodium Chloride 100 ml @ 50 mls/hr UNSCH PRN IV 07/19/17 21:30 (Mag-Ox) 800 mg UNSCH PRN PO 07/19/17 21:30 Magnesium Sulfate 2 gm/Sodium Chloride 100 ml @ 50 mls/hr UNSCH PRN IV 07/19/17 21:30 (K-Phos) 2,000 mg Q4H PRN PO 07/19/17 21:30 Sodium Phosphate 30 mmol/Sodium Chloride 250 ml @ 42 mls/hr UNSCH PRN IV 07/19/17 21:30 (K-Phos) 2,000 mg UNSCH PRN PO/TUBE 07/19/17 21:30 Potassium Phosphate 30 mmol/ Sodium Chloride 260 ml @ 42 mls/hr UNSCH PRN IV 07/19/17 21:30 (D50w (Vial) Inj) 25 ml UNSCH PRN IV PUSH 07/19/17 21:30 (NovoLIN R SUPPLEMENTAL SCALE) 1 ACHS AND 3AM SQ 07/20/17 03:00 ([facility] [place] Nursing Information) 1 Q361D XX 07/19/17 21:45 07/19/17 23:46 (Chlorhexidine 2% Cloth) 3 pack Taper DAILY@04 TOP 07/20/17 04:00 07/16/18 03:59 07/20/17 03:45 (Chlorhexidine 2% Cloth) 3 pack UNSCH PRN TOP 07/19/17 21:45 (Ely-Colace) 1 tab BID PO 07/20/17 09:00 (Milk Of Magnesia Liq) 30 ml Q12H PRN PO 07/19/17 21:45 (Senokot) 17.2 mg Q12H PRN PO 07/19/17 21:45 (Dulcolax Supp) 10 mg DAILY PRN RECTAL 07/19/17 21:45 (Lactulose Liq) 30 ml DAILY PRN PO 07/19/17 21:45 (Glucagon Inj) 1 mg UNSCH PRN OTHER 07/19/17 21:45 Azithromycin 500 mg/Sodium Chloride 250 ml @ 250 mls/hr Q24H IV 07/19/17 23:00 07/19/17 23:46 (Zyloprim) 100 mg DAILY PO 07/20/17 09:00 07/20/17 08:37 (Norvasc) 5 mg BID PO 07/20/17 09:00 5/30/18 08:38 (Ecotrin Ec) 81 mg DAILY PO 07/20/17 09:00 07/20/17 08:40 (Lipitor) 40 mg HS PO 07/20/17 21:00 (Coreg) 25 mg BID PO 07/20/17 09:00 07/20/17 08:38 (Plavix) 75 mg DAILY PO 07/20/17 09:00 07/20/17 08:38 (Apresoline) 50 mg TID PO 07/20/17 09:00 07/20/17 12:16 (Paxil) 20 mg DAILY PO 07/20/17 09:00 07/20/17 08:38 Acetaminophen 100 ml @ 400 mls/hr Q6H PRN IV 07/20/17 08:15 (Albuterol Neb) 2.5 mg Q2HR NEB PRN NEB 07/20/17 07:30 (Pepcid) 20 mg DAILY PO 07/20/17 09:00 07/20/17 08:38 ([place] 5-325 Mg) 1 tab Q4H PRN PO 07/20/17 14:00 07/20/17 15:41 Family History Reviewed the chart and found to be noncontributory to his acute illness Social History Former smoker, smoked half pack per day, quit at age 36, 11 years ago. Denies current alcohol use, prior beer drinker. Denies other drugs. Physical Exam Vital Signs Vital Signs Date Time Temp Pulse Resp B/P (MAP) Pulse Ox O2 Delivery O2 Flow Rate FiO2 07/20/17 16:03 100 40 07/20/17 16:00 87 07/20/17 14:00 76 07/20/17 12:00 97.8 83 14 136/73 (94) 95 07/20/17 12:00 83 07/20/17 10:00 89 07/20/17 08:57 97 50 07/20/17 08:00 85 07/20/17 08:00 98.4 85 12 125/78 (94) 98 07/20/17 07:13 99 Bi-Pap 60 07/20/17 07:00 79 07/20/17 04:30 96 60 07/20/17 04:00 98.3 88 10 139/76 (97) 100 07/20/17 01:50 94 60 07/20/17 00:00 98.4 86 16 158/80 (106) 98 07/19/17 23:00 84 07/19/17 22:40 98 50 07/19/17 21:32 82 07/19/17 21:15 100 BiPAP 40 07/19/17 21:00 98 40 07/19/17 20:24 20 88 148/85 (106) 95 BiPAP 07/19/17 17:58 88 20 102/56 (71) 98 BiPAP 07/19/17 17:10 94 6.00 50 07/19/17 16:58 79 20 114/56 (75) 99 BiPAP 07/19/17 16:34 91 40 Physical Exam Pain to palpation diffusely to posterior insertion at superior calcaneus and along achilles tendon area to gastrocnemius aponeurosis area. Neurovascularly intact. Diffuse ecchymosis and mild edema. Laboratory Laboratory Tests Test 07/19/17 16:47 07/19/17 21:24 07/20/17 04:20 07/20/17 04:29 Blood Gas Puncture Site LT RADIAL LT RADIAL Blood Gas Patient Temperature 98.6 98.6 Blood Gas HCO3 27 27 Blood Gas Base Excess 0.6 0.0 Blood Gas Oxygen Saturation 96 95 Arterial Blood pH 7.26 7.22 Arterial Blood Partial Pressure CO2 63 68 Arterial Blood Partial Pressure O2 108 103 Arterial Blood Oxygen Content 12.9 13.0 Arterial Blood Carboxyhemoglobin 2.0 1.5 Arterial Blood Methemoglobin 1.0 1.0 Blood Gas Hemoglobin 9.4 9.6 Oxygen Delivery Device BIPAP BIPAP10/+5 Blood Gas Ventilator Setting 18 IPAP/6 EPAP Blood Gas Inspired Oxygen 50 60 Nasal Screen MRSA (PCR) MRSA NOT DETECTED White Blood Count 7.8 Red Blood Count 3.58 Hemoglobin 9.5 Hematocrit 29.3 Mean Corpuscular Volume 81.8 Mean Corpuscular Hemoglobin 26.7 Mean Corpuscular Hemoglobin Concent 32.6 Red Cell Distribution Width 14.8 Platelet Count 246 Mean Platelet Volume 7.2 Activated Partial Thromboplast Time 35.8 Blood Urea Nitrogen 47 Creatinine 1.58 Random Glucose 105 Calcium Level 8.3 Sodium Level 137 Potassium Level 4.8 Chloride Level 100 Carbon Dioxide Level 27.7 Anion Gap 9 Estimat Glomerular Filtration Rate 47 Iron Level 17 Total Iron Binding Capacity 336 Percent Iron Saturation 5.1 Ferritin 68 Vitamin B12 Level 608 Folate 9.0 Free Thyroxine 0.93 Thyroid Stimulating Hormone 3rd Gen 1.280 Test 07/20/17 09:30 07/20/17 10:00 07/20/17 11:00 07/20/17 12:00 Total Creatine Kinase 79 Troponin I LESS THAN 0.02 Urine Eosinophils RARE Urine Random Creatinine 127.4 Urine Random Sodium 17 Blood Gas Puncture Site LT RADIAL Blood Gas Patient Temperature 98.6 Blood Gas HCO3 26 Blood Gas Base Excess 0.0 Blood Gas Oxygen Saturation 93 Arterial Blood pH 7.28 Arterial Blood Partial Pressure CO2 57 Arterial Blood Partial Pressure O2 73 Arterial Blood Oxygen Content 12.2 Arterial Blood Carboxyhemoglobin 1.5 Arterial Blood Methemoglobin 0.7 Blood Gas Hemoglobin 9.2 Oxygen Delivery Device BiPAP Blood Gas Inspired Oxygen 40 Activated Partial Thromboplast Time 33.1 Date/Time Source Procedure Growth Status 07/20/17 10:00 Urine Catheterized Urine Legionella Antigen - Final PRESUMPTIVE NEGATIVE FOR LEGIONELLA P... Complete 07/20/17 10:00 Urine Catheterized Urine Streptococcus pneumoniae Antigen (M - Final PRESUMPTIVE NEGATIVE FOR STREPTOCOCCU... Complete Result Diagram: 07/20/17 0420 07/20/17 0420 Imaging Last 72 hours Impressions Chest X-Ray 07/20/17 0600 Signed Impressions: CONCLUSION: Slight CHF Ankle X-Ray 07/20/17 0000 Signed Impressions: CONCLUSION: Alignment in fiberglass. Lung Scan-V Nuclear Medicine 07/19/17 1528 Signed Impressions: CONCLUSION: 1. Low probability for pulmonary embolism. Compensated cardiomegaly. If high c linical suspicion CT angiogram would be of benefit. Chest X-Ray 07/19/17 1415 Signed Impressions: CONCLUSION: 1. Mild cardiomegaly with mild persistent positive fluid balance. MRI on hold, pending. Awaiting info on stent before proceeding with MRI. Assessment and Plan Assessment and Plan Right ankle pain, possible achilles tendon injury MRI pending, awaiting results to determine if operative or nonoperative treatment recommended Nonweightbearing and anticoagulation due to injury plus history of blood clot Magalis Murillo DPM July 20, 2017 16:12
[2017-07-20] MEDS: MORPHINE SULFATE 4 MG/ML INJ IV PRN ×2 (18:32→23:36)
[2017-07-20] MEDS: ATORVASTATIN 40 MG TAB PO SCH (21:02)
[2017-07-20] MEDS: AZITHROMYCIN INJ 500 MG in SODIUM CHLOR 0.9% 250 ML INJ 250 ML IV SCH (23:35)
[2017-07-21] VITALS (16 sets, daily range): BP systolic 148–191; BP diastolic 73–89; PULSE 74–105; RESP 15–29; TEMP 98.1–99.4; O2SAT 96–100
[2017-07-21] MEDS: RESP: ALBUTEROL 2.5 MG/IPRATROPIUM 0.5 MG NEB (SCH) INH ×7 (01:38→23:16)
[2017-07-21] MEDS: INSULIN NovoLIN REGULAR SUPPLEMENTAL SCALE SQ SCH ×5 (03:29→20:07)
[2017-07-21] MEDS: CHLORHEXIDINE GLUCONATE 2 % 1 PACK (2 CLOTHS) TOP SCH (03:29)
[2017-07-21] MEDS ORDERED: INSULIN DETEMIR 100 UNITS/ML VIAL SQ SCH (04:00)
[2017-07-21] MEDS ORDERED: DEXTROSE 50% IN WATER 50 ML VIAL(D50) IV PUSH PRN (04:00)
[2017-07-21] MEDS ORDERED: INSULIN NovoLIN REGULAR SUPPLEMENTAL SCALE SQ SCH (04:00)
[2017-07-21 04:12] LABS: HEMATOCRIT 29.1 % (39.0-51.0); HEMOGLOBIN 9.5 GM/DL (13.0-17.0); MEAN CELL VOLUME 82.1 FL (80.0-100.0); MEAN CORPUSCULAR HEMOGLOBIN 26.7 PG (27.0-34.0); MEAN CORPUSCULAR HGB CONC 32.5 % (32.0-36.0); MEAN PLATELET VOLUME 7.5 FL (7.0-11.0); PLATELET COUNT 250 TH/MM3 (150-450); RED BLOOD COUNT 3.54 MIL/MM3 (4.50-5.90); RED CELL DISTRIBUTION WIDTH 14.3 % (11.6-17.2); WHITE BLOOD COUNT 6.8 TH/MM3 (4.0-11.0)
[2017-07-21 04:43] LABS: ALBUMIN 2.3 GM/DL (3.4-5.0); BICARBONATE 25.4 MEQ/L (21.0-32.0); CALCIUM 8.7 MG/DL (8.5-10.1); CREATININE 1.61 MG/DL (0.60-1.30); DIRECT BILIRUBIN ADULT 0.1 MG/DL (0.0-0.2); INDIRECT BILIRUBIN 0.2 MG/DL (0.0-0.8); MAGNESIUM 2.2 MG/DL (1.5-2.5); PHOSPHORUS 3.4 MG/DL (2.5-4.9); TOTAL BILIRUBIN ADULT 0.3 MG/DL (0.2-1.0); TOTAL PROTEIN 6.8 GM/DL (6.4-8.2)
[2017-07-21] MEDS: MORPHINE SULFATE 4 MG/ML INJ IV PRN ×5 (04:50→23:00)
[2017-07-21] MEDS ORDERED: CALCIUM GLUCONATE 10% 1 GM/10 ML VIAL SLOW IVP ONE ×2 (08:00→12:45)
[2017-07-21] MEDS ORDERED: ACETAMINOPHEN 325 MG TAB PO PRN (08:00)
[2017-07-21] MEDS ORDERED: SODIUM BICARBONATE 8.4% SOLN 50 MEQ/50 ML VIAL SLOW IVP ONE ×2 (08:00→12:45)
--- NOTE | 2017-07-21 08:00 | HHI.CCPN ---
Subjective Remarks/Hospital Course This is a 47-year-old male with a history of morbid obesity and asthma/COPD who presents with new onset worsening shortness of breath and presyncopal type symptoms for the last 1 week. Of note, he was diagnosed with a small subsegmental left lower lobe PE about 8 months ago was on Coumadin up until 6 weeks ago when he had a left heart catheterization with stenting by Dr. Hirsch with [facility] tax [employer] and was since transition to aspirin Plavix. Also of note, the patient approximately 3 days ago had sudden onset right ankle pain and swelling and went to be evaluated by director of securities and real estate and was diagnosed with a possible Achilles tendon rupture. He describes the shortness of breath is slowly worsening in the sense that he just cannot catch his breath. It is worse with exertion. He does not have any symptoms that are concerning for orthopnea, paroxysmal nocturnal dyspnea. Denies cough or fever. Denies sputum production. He does endorse cold intolerance and intermittent chills over the last 1 week. His and her father were both recently hospitalized for what she describes as "pneumonia which was not present on chest x-ray but only diagnosed on CAT scan" and she states was accompanied by "Sirs response". He states he has never been worked up or diagnosed with sleep apnea, however his states that he intermittently stops breathing and gasp for air and when he does breathe he has significant snoring with any resting or sleeping. He endorses fatigue, generalized daytime sleepiness. He denies nausea, vomiting, diarrhea, constipation, abdominal pain. The remainder of the review systems is negative. In the emergency department he was found to have a chest x-ray concerning for cardiomegaly with questionable pulmonary vascular congestion. His creatinine is slightly elevated at 1.6, so a VQ scan was ordered which was low probability for PE. He was placed on heparin drip and transferred from the [facility] emergency department to the [facility] ICU. In the emergency department he was found to be quite hypoxic and hypercarbic with a primary respiratory acidosis and was placed on BiPAP. 07/20: Currently on BiPAP 18/8 at 50%. Worsening pH overnight. Arousable does follow commands. Plan for MRI of the right lower extremity today. Awake and oriented to person and place and year. SUBJECTIVE: 07/21: ABG improved today. BiPAP will be worn at night and as needed. MRI foot to be done today. Potassium high at 6.0. Protocol initiated and will recheck in 3 hours. Hyperglycemia/steroid-induced noted. Started on insulin detemir and high sliding scale insulin. So poorly last night. Pain management with hydrocodone/acetaminophen morphine sulfate Objective Vital Signs Date Time Temp Pulse Resp B/P (MAP) Pulse Ox O2 Delivery O2 Flow Rate FiO2 07/21/17 07:00 98 Bi-Pap 40 07/21/17 06:31 74 07/21/17 04:55 18 07/21/17 04:00 99.0 148/73 (98) 07/20/17 20:58 2.00 Intake and Output 07/21/17 07/21/17 07/22/17 08:00 16:00 00:00 Output Total 2500 ml Balance -2500 ml Result Diagram: 07/21/17 0337 07/21/17 0337 Other Results Microbiology Date/Time Source Procedure Growth Status 07/21/17 03:42 Blood Peripheral Aerobic Blood Culture Pending Received 07/21/17 03:42 Blood Peripheral Anaerobic Blood Culture Pending Received 07/20/17 10:00 Urine Catheterized Urine Legionella Antigen - Final PRESUMPTIVE NEGATIVE FOR LEGIONELLA P... Complete 07/20/17 10:00 Urine Catheterized Urine Streptococcus pneumoniae Antigen (M - Final PRESUMPTIVE NEGATIVE FOR STREPTOCOCCU... Complete Imaging Last Impressions Chest X-Ray 07/20/17 0600 Signed Impressions: CONCLUSION: Slight CHF Ankle X-Ray 07/20/17 0000 Signed Impressions: CONCLUSION: Alignment in fiberglass. Lung Scan-V Nuclear Medicine 07/19/17 1528 Signed Impressions: CONCLUSION: 1. Low probability for pulmonary embolism. Compensated cardiomegaly. If high c linical suspicion CT angiogram would be of benefit. Objective Remarks GENERAL: Morbidly obese male, lying in bed, BiPAP in place in no acute distress HEENT: Normocephalic. Atraumatic. Pupils equal, round, reactive, conjugate about 3 mm bilaterally. Mucous membranes are moist NECK: Trachea is midline. Large kelly and large neck circumference prevent accurate assessment of JVD CHEST: Equal chest rise. Diminished. BiPAP in place. Positive end expiratory wheeze. CARDIOVASCULAR: Normal rate, regular rhythm. S1, S2 no S4. Diminished ABDOMEN: Morbidly obese, soft, nontender, nondistended. Hypoactive bowel sounds appreciated MUSCULOSKELETAL: Pulses 2+. No peripheral edema. Right lower extremity is wrapped in Ronnell bandage with a heel splint in place. NEUROLOGICAL: Cranial nerves II through XII grossly intact. Strength is equal symmetric. Normal sensation. Follows commands. No focal deficits. Urinary Catheter: Yes Assessment to: Continue Velez insert reason: Prolonged Immobilization Vascular Central Line Catheter: No Assessment to: Continue A/P Assessment and Plan Neuro/Psych: Depression/anxiety Recent opioid use Peripheral neuropathy Frequent neurochecks Hydrocodone/acetaminophen will be avoided at this time Avoid alprazolam 1 mg at night as needed anxiety Resume paroxetine 20 mg p.o. daily for depression Holding gabapentin 200 mg 3 times daily for neuropathy Discussed with patient. Okay for hydrocodone/acetaminophen 5/325 one tablet every 4 hours as needed pain. Morphine sulfate 2 mg IV every 4 hours as needed breakthrough has been on in past without adverse reaction Respiratory: Obesity hypoventilation syndrome Recent history of pulmonary embolism/right upper lobe 2017 Acute COPD exacerbation Acute hypoxic and hypercarbic respiratory failure requiring noninvasive positive pressure ventilation BiPAP 18/8 at 50% wean the nasal cannula 2. BiPAP at night Wean FiO2 for goal SPO2 greater than 90% Currently methylprednisolone succinate 40 mg IV 3 times daily Albuterol/ipratropium aerosols every 4 hours with albuterol aerosols every 2 hours as needed dyspnea Head of bed elevated 30 VQ scan admission low probability for pulmonary embolism Cardiovascular: Recent history of pulmonary embolism Essential hypertension Hyperlipidemia -triglycerides predominant with elevated LDH Coronary disease history of stent History of atrial fibrillation Continue heparin drip at 2200 units an hour We will need to transition to prolonged anticoagulation Pending consult cardiology [facility] group as he will likely need RHC and evaluation for right heart dysfunction as we further investigate his dyspnea. 2D echocardiogram 06/08 reveals EF 50%. LVH. LVD. Currently on carvedilol 25 twice daily, hydralazine 50 3 times daily amlodipine 5 mg twice daily Aspirin 81 mg daily and clopidogrel 75 twice daily will be resumed Atorvastatin 40 mg at night for dyslipidemia Furosemide 40 mg daily Renal: Acute kidney injury -baseline creatinine 1.2 Unclear etiology, may be chronic hypoxemia Trend on daily BMP -- Strict I/Os Avoid nephrotoxic drugs Rare urine eosinophils and prerenal indices urine electrolytes Unable to renal ultrasound due to body habitus FEN/GI: Elevated BMI Hyponatremia Hyperpotassemia Advance diet as tolerated ICU electrolyte protocol Kayexalate, insulin/D50/calcium gluconate/albuterol aerosols and sodium bicarbonate 1 now. Recheck at 1130 today Weight loss encouraged Famotidine for GI prophylaxis Docusate sodium/senna 1 tablet twice daily for bowel regimen Heme/ID: Normocytic hypochromic anemia Iron studies revealed low FE with normal TIBC. Normal ferritin. Hemoccult pending Continue heparin drip Trend CBC. Currently 9.5 Anticoagulation will discuss with cardiology recent history by his of hospitalized illness may be atypical pneumonia/ mycoplasma pneumonia. will place patient on iv azithromycin and order mycoplasma titers and Chlamydia as well as influenza swab. Blood cultures 2, sputum ordered as well Endocrine: Diabetes mellitus, type II Gout Holding glimepiride 2 milligrams twice daily and metformin 750 mg p.o. twice daily Allopurinol 100 mg p.o. daily for gout -- SSI Novulin R high regimen Accu-Cheks before meals at [id number] Insulin detemir 10 units subcu twice daily TSH is 1.28. MSK Osteoporosis/arthritis Right ankle injury PT evaluate and treat X-rays reveal a line in a fiberglass cast. MRI right ankle pending. Podiatry following Prophylaxis: GI Prophylaxis Famotidine DVT Prophylaxis -- SCDs Heparin infusion Lines: Peripheral IVs Level 3 follow-up Leonard Cochran MD July 21, 2017 08:00
--- NOTE | 2017-07-21 08:07 | PD.CARD.PN ---
Subjective Subjective Remarks On BiPAP, but sitting up on the edge of the bed. Still some dyspnea overnight, but overall improved today. He denies any chest pain or lower extremity swelling. (Lewis Dexter) Objective Medications Current Medications Medications (Trade) Dose Ordered Sig/Nara Route Start Time Stop Time Status Last Admin Heparin Sodium/ Dextrose 250 ml @ 18 mls/hr TITRATE PRN IV 07/19/17 18:30 07/20/17 23:45 (Duoneb Neb) 1 ampule Q4HR NEB INH 07/20/17 00:00 07/21/17 05:08 Potassium Chloride 100 ml @ 50 mls/hr Q2H PRN IV 07/19/17 21:30 Potassium Chloride 100 ml @ 50 mls/hr Q2H PRN IV 07/19/17 21:30 (K-Lyte Cl Eff) 50 meq UNSCH PRN PO 07/19/17 21:30 Potassium Chloride 100 ml @ 25 mls/hr UNSCH PRN IV 07/19/17 21:30 Potassium Chloride 100 ml @ 50 mls/hr Q2H PRN IV 07/19/17 21:30 Magnesium Sulfate 4 gm/Sodium Chloride 100 ml @ 50 mls/hr UNSCH PRN IV 07/19/17 21:30 (Mag-Ox) 800 mg UNSCH PRN PO 07/19/17 21:30 Magnesium Sulfate 2 gm/Sodium Chloride 100 ml @ 50 mls/hr UNSCH PRN IV 07/19/17 21:30 (K-Phos) 2,000 mg Q4H PRN PO 07/19/17 21:30 Sodium Phosphate 30 mmol/Sodium Chloride 250 ml @ 42 mls/hr UNSCH PRN IV 07/19/17 21:30 (K-Phos) 2,000 mg UNSCH PRN PO/TUBE 07/19/17 21:30 Potassium Phosphate 30 mmol/ Sodium Chloride 260 ml @ 42 mls/hr UNSCH PRN IV 07/19/17 21:30 ([facility] [place] [facility]) 1 [id number] XX 07/19/17 21:45 07/19/17 23:46 (Chlorhexidine 2% Cloth) 3 pack Taper DAILY@04 TOP 07/20/17 04:00 07/16/18 03:59 07/21/17 03:29 (Chlorhexidine 2% Cloth) 3 pack UNSCH PRN TOP 07/19/17 21:45 (Ely-Colace) 1 tab BID PO 07/20/17 09:00 07/20/17 21:03 (Milk Of Magnesia Liq) 30 ml Q12H PRN PO 07/19/17 21:45 (Senokot) 17.2 mg Q12H PRN PO 07/19/17 21:45 (Dulcolax Supp) 10 mg DAILY PRN RECTAL 07/19/17 21:45 (Lactulose Liq) 30 ml DAILY PRN PO 07/19/17 21:45 Azithromycin 500 mg/Sodium Chloride 250 ml @ 250 mls/hr Q24H IV 07/19/17 23:00 07/20/17 23:35 (Zyloprim) 100 mg DAILY PO 07/20/17 09:00 07/20/17 08:37 (Norvasc) 5 mg BID PO 07/20/17 09:00 07/20/17 21:02 (Ecotrin Ec) 81 mg DAILY PO 07/20/17 09:00 07/20/17 08:40 (Lipitor) 40 mg HS PO 07/20/17 21:00 07/20/17 21:02 (Coreg) 25 mg BID PO 07/20/17 09:00 07/20/17 21:03 (Plavix) 75 mg DAILY PO 07/20/17 09:00 07/20/17 08:38 (Apresoline) 50 mg TID PO 07/20/17 09:00 07/20/17 17:04 (Paxil) 20 mg DAILY PO 07/20/17 09:00 07/20/17 08:38 Acetaminophen 100 ml @ 400 mls/hr Q6H PRN IV 07/20/17 08:15 (Albuterol Neb) 2.5 mg Q2HR NEB PRN NEB 07/20/17 07:30 (Pepcid) 20 mg DAILY PO 07/20/17 09:00 07/20/17 08:38 ([place] 5-325 Mg) 1 tab Q4H PRN PO 07/20/17 14:00 07/20/17 15:41 (Morphine Inj) 2 mg Q3H PRN IV 07/20/17 17:30 07/21/17 04:50 (D50w (Vial) Inj) 25 ml UNSCH PRN IV PUSH 07/21/17 04:00 (Calcium Gluconate Inj) 1 gm ONCE ONCE SLOW IVP 07/21/17 08:00 07/21/17 08:01 UNV (NovoLIN R INJ) 10 units ONCE ONCE IV PUSH 07/21/17 08:00 07/21/17 08:01 UNV (D50w (Vial) Inj) 50 ml ONCE ONCE IV PUSH 07/21/17 08:00 07/21/17 08:01 UNV (Sodium Bicarbonate 8.4% Inj) 50 meq ONCE ONCE SLOW IVP 07/21/17 08:00 07/21/17 08:01 UNV (Kayexalate Liq) 15 gm ONCE ONCE PO 07/21/17 08:00 07/21/17 08:01 UNV (Albuterol Neb) 2.5 mg ONCE ONCE NEB 07/21/17 08:00 07/21/17 08:01 UNV (Levemir Inj) 10 units BID SQ 07/21/17 09:00 UNV (SoluMEDROL INJ) 40 mg Q8HR IV PUSH 07/21/17 14:00 UNV (NovoLIN R SUPPLEMENTAL SCALE) 1 [id number] SLIDE SCALE SQ 07/21/17 08:00 UNV Vital Signs / I&O Vital Signs Date Time Temp Pulse Resp B/P (MAP) Pulse Ox O2 Delivery O2 Flow Rate FiO2 07/21/17 07:00 98 Bi-Pap 40 07/21/17 06:31 74 07/21/17 05:08 100 35 07/21/17 04:55 18 07/21/17 04:00 80 07/21/17 04:00 99.0 79 29 148/73 (98) 100 07/21/17 02:00 83 07/21/17 01:38 100 40 07/21/17 00:00 93 07/21/17 00:00 99.4 97 15 170/77 (108) 96 07/20/17 22:00 73 07/20/17 20:58 97 Nasal Cannula 2.00 07/20/17 20:00 94 07/20/17 20:00 99.1 92 26 163/77 (105) 98 07/20/17 19:27 Bi-Pap 40 07/20/17 18:00 85 07/20/17 16:03 100 40 07/20/17 16:00 98.1 87 8 158/84 (108) 95 07/20/17 16:00 87 07/20/17 14:00 76 07/20/17 12:00 97.8 83 14 136/73 (94) 95 07/20/17 12:00 83 07/20/17 10:00 89 07/20/17 08:57 97 50 I/O 07/20/17 07/20/17 07/20/17 07/21/17 07/21/17 07/21/17 07:00 15:00 23:00 07:00 15:00 23:00 Intake Total 800 ml 100 ml 361 ml Output Total 500 ml 2500 ml Balance 300 ml 100 ml 361 ml -2500 ml Intake Oral 800 ml 360 ml IV Total 100 ml 1 ml Output Urine Total 500 ml 2500 ml # Voids 2 3 # Bowel Movements 0 Physical Exam GENERAL: Well-developed well-nourished morbidly obese. Appears comfortable sitting on the edge of the bed on BiPAP. NECK: No carotid bruits. No JVD. CARDIOVASCULAR: Regular rate and rhythm. No murmur appreciated. RESPIRATORY: Diminished breath sounds in the bases. No crackles. MUSCULOSKELETAL: No clubbing or cyanosis. No edema. Right ankle in Ronnell wrap. NEUROLOGICAL: Awake and alert. Normal speech. Laboratory Laboratory Tests Test 07/20/17 09:30 07/20/17 10:00 07/20/17 11:00 07/20/17 12:00 Total Creatine Kinase 79 U/L Troponin I LESS THAN 0.02 NG/ML Urine Eosinophils RARE /HPF Urine Random Creatinine 127.4 MG/DL Urine Random Sodium 17 MEQ/L Blood Gas Puncture Site LT RADIAL Blood Gas Patient Temperature 98.6 Blood Gas HCO3 26 mmol/L Blood Gas Base Excess 0.0 mmol/L Blood Gas Oxygen Saturation 93 % Arterial Blood pH 7.28 Arterial Blood Partial Pressure CO2 57 mmHg Arterial Blood Partial Pressure O2 73 mmHg Arterial Blood Oxygen Content 12.2 Vol % Arterial Blood Carboxyhemoglobin 1.5 % Arterial Blood Methemoglobin 0.7 % Blood Gas Hemoglobin 9.2 G/DL Oxygen Delivery Device BiPAP Blood Gas Inspired Oxygen 40 % Activated Partial Thromboplast Time 33.1 SEC Test 07/20/17 20:49 07/21/17 03:37 07/21/17 07:40 Activated Partial Thromboplast Time 34.3 SEC 37.8 SEC White Blood Count 6.8 TH/MM3 Red Blood Count 3.54 MIL/MM3 Hemoglobin 9.5 GM/DL Hematocrit 29.1 % Mean Corpuscular Volume 82.1 FL Mean Corpuscular Hemoglobin 26.7 PG Mean Corpuscular Hemoglobin Concent 32.5 % Red Cell Distribution Width 14.3 % Platelet Count 250 TH/MM3 Mean Platelet Volume 7.5 FL Blood Urea Nitrogen 55 MG/DL Creatinine 1.61 MG/DL Random Glucose 475 MG/DL Total Protein 6.8 GM/DL Albumin 2.3 GM/DL Calcium Level 8.7 MG/DL Phosphorus Level 3.4 MG/DL Magnesium Level 2.2 MG/DL Alkaline Phosphatase 158 U/L Aspartate Amino Transf (AST/SGOT) 7 U/L Alanine Aminotransferase (ALT/SGPT) 31 U/L Total Bilirubin 0.3 MG/DL Direct Bilirubin 0.1 MG/DL Sodium Level 132 MEQ/L Potassium Level 6.0 MEQ/L Chloride Level 96 MEQ/L Carbon Dioxide Level 25.4 MEQ/L Anion Gap 11 MEQ/L Estimat Glomerular Filtration Rate 46 ML/MIN Indirect Bilirubin 0.2 MG/DL Blood Gas Puncture Site LT RADIAL Blood Gas Patient Temperature 98.6 Blood Gas HCO3 26 mmol/L Blood Gas Base Excess 0.4 mmol/L Blood Gas Oxygen Saturation 96 % Arterial Blood pH 7.34 Arterial Blood Partial Pressure CO2 49 mmHg Arterial Blood Partial Pressure O2 116 mmHg Arterial Blood Oxygen Content 13.2 Vol % Arterial Blood Carboxyhemoglobin 1.6 % Arterial Blood Methemoglobin 0.9 % Blood Gas Hemoglobin 9.6 G/DL Oxygen Delivery Device BiPAP Blood Gas Ventilator Setting 18/8 Blood Gas Inspired Oxygen 35 % Imaging Last Impressions Chest X-Ray 07/20/17 0600 Signed Impressions: CONCLUSION: Slight CHF Ankle X-Ray 07/20/17 0000 Signed Impressions: CONCLUSION: Alignment in fiberglass. Lung Scan-VQ Nuclear Medicine 07/19/17 1528 Signed Impressions: CONCLUSION: 1. Low probability for pulmonary embolism. Compensated cardiomegaly. If high c linical suspicion CT angiogram would be of benefit. (Lewis Dexter) Assessment and Plan Assessment and Plan 47-year-old male with past medical history of CAD status post PCI 06/17/17, diastolic CHF, COPD, HTN, HLD, DM who presented for shortness of breath and somnolence Acute hypercapnic respiratory failure: Overall improving today. Probably multifactorial with probable component of obesity hypoventilation and recent sedative use. Most likely cor pulmonale or pulmonary hypertension, 2d echo to assess noninvasively. May consider RHC pending echo. (Lewis Dexter) Assessment and Plan SOB pulmonary etiology prior outpatient echo did not suggest cor pulmonale or RHF no plans for RHC can FU with dr. romo will sign off call with further questions (Darryl Jane MD) Lewis Dexter July 21, 2017 08:06 Darryl Jane MD July 21, 2017 12:38
[2017-07-21] MEDS ORDERED: DEXTROSE 50% IN WATER 50 ML VIAL(D50) IV PUSH ONE ×2 (08:15→12:45)
[2017-07-21] MEDS ORDERED: SODIUM POLYSTYRENE SULFONATE SUSP 15 GM/60 ML CUP PO ONE ×2 (08:15→12:45)
[2017-07-21] MEDS ORDERED: RESP: ALBUTEROL 2.5 MG/3 ML NEB (SCH) NEB ONE (08:15)
[2017-07-21] MEDS ORDERED: INSULIN HUMAN REGULAR 1,000 UNITS/10 ML VIAL IV PUSH ONE ×2 (08:30→12:45)
[2017-07-21] MEDS: CLOPIDOGREL 75 MG TAB PO SCH (08:36)
[2017-07-21] MEDS: CARVEDILOL 12.5 MG TAB PO SCH ×2 (08:36→20:06)
[2017-07-21] MEDS: FAMOTIDINE 20 MG TAB PO SCH (08:36)
[2017-07-21] MEDS: hydrALAZINE HCL 50 MG TAB PO SCH ×3 (08:36→16:55)
[2017-07-21] MEDS: amLODIPine BESYLATE 5 MG TAB PO SCH ×2 (08:36→20:06)
[2017-07-21] MEDS: ASPIRIN EC 81 MG TABEC PO SCH (08:36)
[2017-07-21] MEDS: ALLOPURINOL 100 MG TAB PO SCH (08:36)
[2017-07-21] MEDS: DOCUSATE SODIUM 50 MG/SENNA 8.6 MG TAB PO SCH ×2 (08:36→20:08)
[2017-07-21] MEDS: PARoxetine HCL 20 MG TAB PO SCH (08:36)
[2017-07-21] MEDS: INSULIN DETEMIR 100 UNITS/ML VIAL SQ SCH ×2 (08:37→20:07)
[2017-07-21] MEDS: methylPREDNISolone SOD SUCC 40 MG/1 ML VIAL IV PUSH SCH ×2 (12:52→22:56)
--- NOTE | 2017-07-21 12:58 | RADRPT ---
EXAM DATE: 07/21/2017 12:32 PM EDT AGE/SEX: 47 years / Male INDICATIONS: . Pain after stepping up on a ladder x 5 days. CLINICAL DATA: This is the patient's subsequent encounter. Patient reports that signs and symptoms h ave been present for 3 days and indicates a pain score of 5/10. MEDICAL/SURGICAL HISTORY: . DM, HTN, Achilles Tendonitis, Stent . Stent Placement, Anal Fissur e, Tonsillectomy COMPARISON: No prior exams available for comparison. TECHNIQUE: Multiplanar, multisequence MRI examination was performed without contrast. FINDINGS: There is severe tendinopathy in the distal Achilles tendon which is torn above the insertion site. Th ere may be a tiny intact strand that extends medially to the calcaneus. There is also a partial avuls ion tear of the insertion site on the calcaneus. There is extensive marrow edema in the posterior viv caneus especially on the lateral aspect probably representing a small impaction fracture. The ankle mortise appears intact. There is extensive subcutaneous edema present. There is a small ank le joint effusion. There is a mild contusion in the posterior talus as well. CONCLUSION: 1. Severe tendinopathy of the distal Achilles tendon with full-thickness tear. Tiny intact strand of tendon present medially. There is also partial avulsion of the Achilles tendon at the insertion site on the calcaneus. 2. Severe marrow edema posterior calcaneus especially the lateral aspect, probably a small impaction fracture. 3. Mild contusion posterior talus. 4. Small ankle joint effusion. Extensive subcutaneous edema. Electronically signed by: Bar Kramer MD 07/21/2017 12:56 PM EDT
[2017-07-21 13:53] LABS: MYCOPLASMA PNEUMONIAE IGG Positive (Negative); MYCOPLASMA PNEUMONIAE IGM Negative (Negative)
[2017-07-21] MEDS: ACETAMINOPHEN/HYDROcodone 325 MG/5 MG TAB PO PRN (14:26)
[2017-07-21] MEDS: ATORVASTATIN 40 MG TAB PO SCH (20:06)
--- NOTE | 2017-07-21 20:57 | PD.POD ---
Subjective Podiatric Problems Right ankle pain/achilles injury Past Med/Surg/Social History Past Medical History Endocrine: REPORTS HX OF: Diabetes mellitus Cardiovascular: REPORTS HX OF: Hyperlipidemia, Hypertension Past Surgical History HEENT: REPORTS HX OF: Tonsillectomy Genitourinary: REPORTS HX OF: Other surgery Integumentary: REPORTS HX OF: Other integumentary surg (abcesses) Social History Smoking Status: Former Smoker Objective Vital Signs Vital Signs Date Time Temp Pulse Resp B/P (MAP) Pulse Ox O2 Delivery O2 Flow Rate FiO2 07/21/17 18:00 85 07/21/17 16:00 98.1 87 19 191/89 (123) 100 07/21/17 16:00 89 07/21/17 14:00 105 07/21/17 12:00 98.3 88 21 167/78 (107) 100 07/21/17 12:00 88 07/21/17 10:00 92 07/21/17 08:20 97 Nasal Cannula 3.00 07/21/17 08:00 98.1 90 19 153/73 (99) 100 07/21/17 08:00 89 07/21/17 07:00 98 Bi-Pap 40 07/21/17 06:31 74 07/21/17 05:08 100 35 07/21/17 04:55 18 07/21/17 04:00 80 07/21/17 04:00 99.0 79 29 148/73 (98) 100 07/21/17 02:00 83 07/21/17 01:38 100 40 07/21/17 00:00 93 07/21/17 00:00 99.4 97 15 170/77 (108) 96 07/20/17 22:00 73 07/20/17 20:58 97 Nasal Cannula 2.00 Coded Allergies: codeine (Verified Allergy, Severe, Itching, 07/19/17) tramadol (Verified Allergy, Unknown, 07/19/17) clonidine (Unverified Adverse Reaction, Severe, ARNDT, dry mouth, "felt drunk ", 07/19/17) lisinopril (Verified Adverse Reaction, Unknown, abnormal labs K level, ) Other Results Last 72 hours Impressions Ankle MRI 07/21/17 0000 Signed Impressions: CONCLUSION: 1. Severe tendinopathy of the distal Achilles tendon with full-thickness tear. Tiny intact strand of tendon present medially. There is also partial avulsion of the Achilles tendon at the insertion site on the calcaneus. 2. Severe marrow edema posterior calcaneus especially the lateral aspect, prob ably a small impaction fracture. 3. Mild contusion posterior talus. 4. Small ankle joint effusion. Extensive subcutaneous edema. Chest X-Ray 07/20/17 0600 Signed Impressions: CONCLUSION: Slight CHF Ankle X-Ray 07/20/17 0000 Signed Impressions: CONCLUSION: Alignment in fiberglass. Lung Scan-V Nuclear Medicine 07/19/17 1528 Signed Impressions: CONCLUSION: 1. Low probability for pulmonary embolism. Compensated cardiomegaly. If high c linical suspicion CT angiogram would be of benefit. Chest X-Ray 07/19/17 1415 Signed Impressions: CONCLUSION: 1. Mild cardiomegaly with mild persistent positive fluid balance. Assessment & Plan A/P Right achilles tendon rupture Plan to OR tuesday morning if cleared medically. Patient will need to be in prone position Magalis Murillo DPM July 21, 2017 20:57
[2017-07-21] MEDS: AZITHROMYCIN INJ 500 MG in SODIUM CHLOR 0.9% 250 ML INJ 250 ML IV SCH (22:57)
[2017-07-21] MEDS: HEPARIN-D5W 25,000 U/250 ML 250 ML IV PRN (22:59)
[2017-07-22] VITALS (17 sets, daily range): BP systolic 165–200; BP diastolic 77–104; PULSE 72–106; RESP 18–24; TEMP 97.7–98.7; O2SAT 93–100
[2017-07-22] MEDS: ACETAMINOPHEN/HYDROcodone 325 MG/5 MG TAB PO PRN ×2 (00:46→04:58)
[2017-07-22] MEDS: MORPHINE SULFATE 4 MG/ML INJ IV PRN ×6 (02:13→21:07)
[2017-07-22] MEDS: RESP: ALBUTEROL 2.5 MG/IPRATROPIUM 0.5 MG NEB (SCH) INH ×6 (03:12→23:50)
[2017-07-22] MEDS: INSULIN NovoLIN REGULAR SUPPLEMENTAL SCALE SQ SCH ×5 (03:26→20:09)
[2017-07-22 03:58] LABS: HEMATOCRIT 29.9 % (39.0-51.0); HEMOGLOBIN 9.8 GM/DL (13.0-17.0); MEAN CELL VOLUME 80.1 FL (80.0-100.0); MEAN CORPUSCULAR HEMOGLOBIN 26.4 PG (27.0-34.0); MEAN CORPUSCULAR HGB CONC 32.9 % (32.0-36.0); PLATELET COUNT 296 TH/MM3 (150-450); RED BLOOD COUNT 3.73 MIL/MM3 (4.50-5.90); RED CELL DISTRIBUTION WIDTH 14.7 % (11.6-17.2); WHITE BLOOD COUNT 9.7 TH/MM3 (4.0-11.0)
[2017-07-22] MEDS: CHLORHEXIDINE GLUCONATE 2 % 1 PACK (2 CLOTHS) TOP SCH (04:00)
[2017-07-22 04:44] LABS: BICARBONATE 29.6 MEQ/L (21.0-32.0); CALCIUM 8.9 MG/DL (8.5-10.1); CREATININE 1.38 MG/DL (0.60-1.30)
[2017-07-22] MEDS: methylPREDNISolone SOD SUCC 40 MG/1 ML VIAL IV PUSH SCH ×2 (05:46→20:06)
--- NOTE | 2017-07-22 07:09 | HHI.CCPN ---
Subjective Remarks/Hospital Course This is a 47-year-old male with a history of morbid obesity and asthma/COPD who presents with new onset worsening shortness of breath and presyncopal type symptoms for the last 1 week. Of note, he was diagnosed with a small subsegmental left lower lobe PE about 8 months ago was on Coumadin up until 6 weeks ago when he had a left heart catheterization with stenting by Dr. Hirsch with [facility] space sciences director and was since transition to aspirin Plavix. Also of note, the patient approximately 3 days ago had sudden onset right ankle pain and swelling and went to be evaluated by bioinformatics computer scientist and was diagnosed with a possible Achilles tendon rupture. He describes the shortness of breath is slowly worsening in the sense that he just cannot catch his breath. It is worse with exertion. He does not have any symptoms that are concerning for orthopnea, paroxysmal nocturnal dyspnea. Denies cough or fever. Denies sputum production. He does endorse cold intolerance and intermittent chills over the last 1 week. His and her father were both recently hospitalized for what she describes as "pneumonia which was not present on chest x-ray but only diagnosed on CAT scan" and she states was accompanied by "Sirs response". He states he has never been worked up or diagnosed with sleep apnea, however his states that he intermittently stops breathing and gasp for air and when he does breathe he has significant snoring with any resting or sleeping. He endorses fatigue, generalized daytime sleepiness. He denies nausea, vomiting, diarrhea, constipation, abdominal pain. The remainder of the review systems is negative. In the emergency department he was found to have a chest x-ray concerning for cardiomegaly with questionable pulmonary vascular congestion. His creatinine is slightly elevated at 1.6, so a VQ scan was ordered which was low probability for PE. He was placed on heparin drip and transferred from the [place] emergency department to the [facility] ICU. In the emergency department he was found to be quite hypoxic and hypercarbic with a primary respiratory acidosis and was placed on BiPAP. 07/20: Currently on BiPAP 18/8 at 50%. Worsening pH overnight. Arousable does follow commands. Plan for MRI of the right lower extremity today. Awake and oriented to person and place and year. 07/21: ABG improved today. BiPAP will be worn at night and as needed. MRI foot to be done today. Potassium high at 6.0. Protocol initiated and will recheck in 3 hours. Hyperglycemia/steroid-induced noted. Started on insulin detemir and high sliding scale insulin. So poorly last night. Pain management with hydrocodone/acetaminophen morphine sulfate SUBJECTIVE: 07/22: No acute issues overnight. Currently off his BiPAP. Will adjust pain medication and antianxiety medications per patient's request. See orders. Will consult cardiology for perioperative cardiac risk stratification prior to planned OR on Tuesday. High risk for remaining intubated postoperatively but patient is aware. Objective Vital Signs Date Time Temp Pulse Resp B/P (MAP) Pulse Ox O2 Delivery O2 Flow Rate FiO2 07/22/17 06:00 74 07/22/17 05:58 26 07/22/17 04:05 100 35 07/22/17 04:00 98.7 186/92 (123) 07/21/17 20:49 Nasal Cannula 3.00 Intake and Output 07/22/17 07/22/17 07/23/17 08:00 16:00 00:00 Intake Total 1440 ml Output Total 2850 ml Balance -1410 ml Result Diagram: 07/22/17 0342 07/22/17 0342 Other Results Microbiology Date/Time Source Procedure Growth Status 07/21/17 03:42 Blood Peripheral Aerobic Blood Culture Pending Received 07/21/17 03:42 Blood Peripheral Anaerobic Blood Culture Pending Received 07/20/17 10:00 Urine Catheterized Urine Legionella Antigen - Final PRESUMPTIVE NEGATIVE FOR LEGIONELLA P... Complete 07/20/17 10:00 Urine Catheterized Urine Streptococcus pneumoniae Antigen (M - Final PRESUMPTIVE NEGATIVE FOR STREPTOCOCCU... Complete Imaging Last Impressions Ankle MRI 07/21/17 0000 Signed Impressions: CONCLUSION: 1. Severe tendinopathy of the distal Achilles tendon with full-thickness tear. Tiny intact strand of tendon present medially. There is also partial avulsion of the Achilles tendon at the insertion site on the calcaneus. 2. Severe marrow edema posterior calcaneus especially the lateral aspect, prob ably a small impaction fracture. 3. Mild contusion posterior talus. 4. Small ankle joint effusion. Extensive subcutaneous edema. Chest X-Ray 07/20/17 0600 Signed Impressions: CONCLUSION: Slight CHF Ankle X-Ray 07/20/17 0000 Signed Impressions: CONCLUSION: Alignment in fiberglass. Lung Scan-VQ Nuclear Medicine 07/19/17 1528 Signed Impressions: CONCLUSION: 1. Low probability for pulmonary embolism. Compensated cardiomegaly. If high c linical suspicion CT angiogram would be of benefit. Objective Remarks GENERAL: Morbidly obese male, lying in bed in no acute distress HEENT: Normocephalic. Atraumatic. Pupils equal, round, reactive, conjugate about 3 mm bilaterally. Mucous membranes are moist NECK: Trachea is midline. Large kelly and large neck circumference prevent accurate assessment of JVD CHEST: Equal chest rise. Diminished. End expiratory wheeze anteriorly CARDIOVASCULAR: Normal rate, regular rhythm. S1, S2 no S4. Diminished ABDOMEN: Morbidly obese, soft, nontender, nondistended. Hypoactive bowel sounds appreciated MUSCULOSKELETAL: Pulses 2+. No peripheral edema. Right lower extremity is wrapped in Ronnell bandage with a heel splint in place. NEUROLOGICAL: Cranial nerves II through XII grossly intact. Strength is equal symmetric. Normal sensation. Follows commands. No focal deficits. Urinary Catheter: No Assessment to: Continue Vascular Central Line Catheter: No Assessment to: Continue A/P Assessment and Plan Neuro/Psych: Depression/anxiety Recent opioid use Peripheral neuropathy Adjust alprazolam 1 mg at night as needed anxiety to 0.5 mg at night as needed Resume paroxetine 20 mg p.o. daily for depression Holding gabapentin 200 mg 3 times daily for neuropathy Discussed with patient. Okay for hydrocodone/acetaminophen 5/325 to 10/325 one tablet every 4 hours as needed pain. Morphine sulfate 2 mg IV every 4 hours as needed breakthrough has been on in past without adverse reaction Respiratory: Obesity hypoventilation syndrome Recent history of pulmonary embolism/right upper lobe 2017 Acute COPD exacerbation Acute hypoxic and hypercarbic respiratory failure requiring noninvasive positive pressure ventilation BiPAP 18/8 at 50% wean the nasal cannula as needed. BiPAP at night Wean FiO2 for goal SPO2 greater than 90% Currently methylprednisolone succinate 40 mg IV 2 times daily Albuterol/ipratropium aerosols every 4 hours with albuterol aerosols every 2 hours as needed dyspnea Head of bed elevated 30 VQ scan admission low probability for pulmonary embolism Cardiovascular: Recent history of pulmonary embolism Essential hypertension Hyperlipidemia -triglycerides predominant with elevated LDH Coronary disease history of stent History of atrial fibrillation Continue heparin drip at 2300 units an hour We will need to transition to prolonged anticoagulation Pending consult cardiology [facility] group as he will likely need RHC and evaluation for right heart dysfunction as we further investigate his dyspnea. 2D echocardiogram 06/08 reveals EF 50%. LVH. LVD. Currently on carvedilol 25 twice daily, hydralazine 50 3 times daily increased to 100 mg 3 times daily amlodipine 5 mg twice daily As needed Nitropaste for hypertension Aspirin 81 mg daily and clopidogrel 75 twice daily Atorvastatin 40 mg at night for dyslipidemia Furosemide 40 mg daily resume Renal: Acute kidney injury -baseline creatinine 1.2 bili 1.39 Unclear etiology, may be chronic hypoxemia Trend on daily BMP -- Strict I/Os Avoid nephrotoxic drugs Rare urine eosinophils and prerenal indices urine electrolytes Unable to renal ultrasound due to body habitus FEN/GI: Elevated BMI Hyponatremia Hyperpotassemia Advance diet as tolerated ICU electrolyte protocol Kayexalate, insulin/D50/calcium gluconate/albuterol aerosols and sodium bicarbonate 1 now. Recheck at 1100 today Weight loss encouraged Famotidine for GI prophylaxis Docusate sodium/senna 1 tablet twice daily for bowel regimen Heme/ID: Normocytic hypochromic anemia Iron studies revealed low FE with normal TIBC. Normal ferritin. Hemoccult pending Continue heparin drip currently at 2300 units an hour Trend CBC. Currently stable Anticoagulation will discuss with cardiology recent history by his of hospitalized illness may be atypical pneumonia/ mycoplasma pneumonia. will place patient on iv azithromycin day #4 and order mycoplasma titers IgG positive IgM negative and Chlamydia as well as influenza swab. Blood cultures 2, sputum ordered as well Endocrine: Diabetes mellitus, type II Gout Holding glimepiride 2 milligrams twice daily and metformin 750 mg p.o. twice daily Allopurinol 100 mg p.o. daily for gout -- SSI Novulin R high regimen Accu-Cheks before meals at [id number] Insulin detemir 15 units subcu twice daily TSH is 1.28. MSK Osteoporosis/arthritis Right ankle/Achilles tear to PT evaluate and treat X-rays reveal a line in a fiberglass cast. MRI right ankle revealed rupture of the Achilles tendon. plans for OR on Tuesday if cleared Podiatry following Prophylaxis: GI Prophylaxis Famotidine DVT Prophylaxis -- SCDs Heparin infusion Lines: Peripheral IVs Level 3 follow-up Leonard Cochran MD Jul 22, 2017 07:09
[2017-07-22] MEDS ORDERED: CALCIUM GLUCONATE 10% 1 GM/10 ML VIAL SLOW IVP ONE (07:15)
[2017-07-22] MEDS ORDERED: SODIUM POLYSTYRENE SULFONATE SUSP 15 GM/60 ML CUP PO ONE (07:15)
[2017-07-22] MEDS ORDERED: RESP: ALBUTEROL 2.5 MG/3 ML NEB (SCH) NEB ONE (07:15)
[2017-07-22] MEDS ORDERED: DEXTROSE 50% IN WATER 50 ML VIAL(D50) IV PUSH ONE (07:15)
[2017-07-22] MEDS ORDERED: INSULIN HUMAN REGULAR 1,000 UNITS/10 ML VIAL IV PUSH ONE (07:15)
[2017-07-22] MEDS ORDERED: SODIUM BICARBONATE 8.4% SOLN 50 MEQ/50 ML VIAL SLOW IVP ONE (07:15)
--- NOTE | 2017-07-22 07:54 | HHI.PR ---
Addendum to Inpatient Note Addendum Reason: Additional Documentation Additional Information We are asked to provide risk stratification prior to probable ankle surgery this Tuesday. The patient had recent cardiac catheterization with revascularization last month. There has been no evidence of acute cardiac disease on this hospitalization. The patient would be acceptable cardiovascular risk to proceed with right ankle procedure, however would make sure that his respiratory status remains stable. d/w Lewis Grewal Jul 22, 2017 07:54
[2017-07-22] MEDS: amLODIPine BESYLATE 5 MG TAB PO SCH ×2 (08:22→20:09)
[2017-07-22] MEDS: PARoxetine HCL 20 MG TAB PO SCH (08:22)
[2017-07-22] MEDS: FAMOTIDINE 20 MG TAB PO SCH (08:22)
[2017-07-22] MEDS: DOCUSATE SODIUM 50 MG/SENNA 8.6 MG TAB PO SCH ×2 (08:22→20:09)
[2017-07-22] MEDS: ASPIRIN EC 81 MG TABEC PO SCH (08:23)
[2017-07-22] MEDS: CARVEDILOL 12.5 MG TAB PO SCH ×2 (08:23→20:07)
[2017-07-22] MEDS: CLOPIDOGREL 75 MG TAB PO SCH (08:23)
[2017-07-22] MEDS: FUROSEMIDE 40 MG TAB PO SCH (08:23)
[2017-07-22] MEDS: hydrALAZINE HCL 100 MG TAB PO SCH ×3 (08:23→18:16)
[2017-07-22] MEDS: ALLOPURINOL 100 MG TAB PO SCH (08:23)
[2017-07-22] MEDS: INSULIN DETEMIR 100 UNITS/ML VIAL SQ SCH ×2 (10:00→20:09)
[2017-07-22] MEDS: HEPARIN-D5W 25,000 U/250 ML 250 ML IV PRN ×2 (12:00→20:08)
[2017-07-22] MEDS: ACETAMINOPHEN/HYDROcodone 325 MG/10 MG TAB PO PRN ×2 (13:41→20:07)
[2017-07-22] MEDS: NITROGLYCERIN 2% OINT 1 GM PACKET TOPICAL PRN (15:38)
[2017-07-22] MEDS ORDERED: cloNIDine HCL 0.1 MG TAB PO PRN (16:45)
[2017-07-22] MEDS: ISOSORBIDE DINITRATE 10 MG TAB PO SCH (18:16)
--- NOTE | 2017-07-22 18:27 | MB ---
cc: Luis Armando Sawyer MD, Arjun D MD DATE: 07/22/2017 REQUESTING PHYSICIAN: Dr. Leonard Cochran REASON FOR CONSULTATION: Evaluation for hypercapnic respiratory failure and sleep apnea. HISTORY OF PRESENT ILLNESS: Mr. Rios is a pleasant 47-year-old morbidly obese male with history of asthma, COPD, history of hypertension, diabetes mellitus, coronary artery disease, stent placement and history of small pulmonary embolism. 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 He was feeling some aches and pain in his foot and he was having a boot fitted. On the day of his admission, he was going to go on the roof to check the roof leak because of the rain. His friend was coming to fix it and he felt a snap in his ankle. He was brought to the hospital, was found to have Achilles tendon rupture. It was also noted that he had hypercapnic respiratory failure. His blood gas showed pH 7.25, pCO2 of 63, pO2 of 162. He used BiPAP, last blood gas was 7.34, pCO2 of 40 and pO2 of 116. Now he is weaned down to nasal cannula. His is at the bedside. She tells me that she has noted loud snoring and apneic spells. He sometimes feels sleepy, but no excessive sleepiness during the daytime. No headaches. No nausea or vomiting. PAST MEDICAL HISTORY: History of hypertension, diabetes mellitus, coronary artery disease, stent placement, history of small PE, history of anal fissure surgery, history of tonsillectomy. CURRENT MEDICATIONS: 1. Solu-Medrol 40 mg twice a day. 2. Isosorbide 10 mg q. 8 hr. 3. Clonidine 0.1 mg p.r.n. 4. Hydralazine 100 mg 3 times a day. 5. Insulin Detemir 15 units twice a day. 6. Lasix 40 mg a day. 7 Hydrocodone p.r.n. 8 Xanax p.r.n. 9. Amlodipine 5 mg twice a day. 10. Allopurinol 100 mg a day. 11. Coreg 25 mg twice a day. 12. Plavix 75 mg a day. 13. Paroxetine 20 mg a day. 14. Famotidine 20 mg b.i.d. 15. Albuterol Atrovent nebulizer treatments, 16. Zithromax 500 mg a day. ALLERGIES: ALLERGIC TO CODEINE, LISINOPRIL, TRAMADOL. SOCIAL HISTORY: He is . History of smoking for 5-6 years. He used to drink before and use marijuana a long time ago. 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 FAMILY HISTORY: He is . REVIEW OF SYSTEMS: He has gained weight. No headache. No DVT, has history of pulmonary embolism. No malignancy. PHYSICAL EXAMINATION: GENERAL: Obese male, not in any acute distress. VITAL SIGNS: Blood pressure 165/77, heart rate 90, respiratory rate 20, temperature 98. HEENT: Pupils are equal and reactive to light. He has diabetic retinopathy. NECK: Supple. JVD not raised. CHEST: Equal bilaterally. No rhonchi. CARDIOVASCULAR: S1, S2 normal. ABDOMEN: Obese, nontender. Bowel sounds are present. EXTREMITIES: His right ankle is wrapped. IMPRESSION: 1. Hypercapnic respiratory insufficiency, likely from his underlying sleep apnea. 2. History of asthma. 3. Diabetes mellitus. 4. Hypertension. 5. Coronary artery disease, status post stent placement 6. History of pulmonary embolism. He is off anticoagulation. PLAN: I discussed with the patient and his . He will use CPAP at night and wean oxygen to keep sats between 88 and 92%. Monitor his blood sugar and blood pressure. He will need sleep study as outpatient. Use CPAP at night for his sleep apnea. Further treatment will depend on the course in the hospital. Thank you, Dr. Leonard Cochran, for this consult. MD POLLY Wellington/ , 05:55 PM , 06:26 PM
[2017-07-22] MEDS: ATORVASTATIN 40 MG TAB PO SCH (20:06)
[2017-07-22] MEDS: ALPRAZolam 0.5 MG TAB PO PRN (23:06)
[2017-07-22] MEDS: AZITHROMYCIN INJ 500 MG in SODIUM CHLOR 0.9% 250 ML INJ 250 ML IV SCH (23:07)
[2017-07-23] VITALS (15 sets, daily range): BP systolic 143–188; BP diastolic 73–89; PULSE 63–97; RESP 12–18; TEMP 97.5–98.2; O2SAT 90–100
[2017-07-23] MEDS: ISOSORBIDE DINITRATE 10 MG TAB PO SCH ×3 (02:11→17:13)
[2017-07-23] MEDS: ACETAMINOPHEN/HYDROcodone 325 MG/10 MG TAB PO PRN ×3 (02:11→21:35)
[2017-07-23] MEDS: INSULIN NovoLIN REGULAR SUPPLEMENTAL SCALE SQ SCH ×5 (02:21→21:00)
[2017-07-23] MEDS: MORPHINE SULFATE 4 MG/ML INJ IV PRN ×6 (02:22→22:02)
[2017-07-23] MEDS: RESP: ALBUTEROL 2.5 MG/IPRATROPIUM 0.5 MG NEB (SCH) INH ×6 (02:58→23:47)
[2017-07-23] MEDS: CHLORHEXIDINE GLUCONATE 2 % 1 PACK (2 CLOTHS) TOP SCH (04:00)
--- NOTE | 2017-07-23 04:55 | RADRPT ---
EXAM DATE: 07/23/2017 4:31 AM EDT AGE/SEX: 47 years / Male INDICATIONS: Shortness of breath CLINICAL DATA: This is the patient's subsequent encounter. Patient reports that signs and symptoms h ave been present for 1 week and indicates a pain score of 0/10. MEDICAL/SURGICAL HISTORY: . Hypertension. Chronic obstructive pulmonary disease. Coronary arter y stent. None. COMPARISON: [facility] [place], CHEST SINGLE AP, 07/20/2017. . FINDINGS: There is enlargement of the cardiac silhouette. The lungs appear grossly clear. CONCLUSION: Cardiomegaly. Electronically signed by: Stephen Hahn MD 07/23/2017 4:53 AM EDT
[2017-07-23] MEDS: HEPARIN-D5W 25,000 U/250 ML 250 ML IV PRN (05:13)
[2017-07-23] MEDS: hydrALAZINE HCL 100 MG TAB PO SCH ×3 (08:01→17:13)
[2017-07-23] MEDS: methylPREDNISolone SOD SUCC 40 MG/1 ML VIAL IV PUSH SCH ×2 (08:01→20:34)
[2017-07-23] MEDS: CARVEDILOL 12.5 MG TAB PO SCH ×2 (08:01→20:34)
[2017-07-23] MEDS: FAMOTIDINE 20 MG TAB PO SCH (08:02)
[2017-07-23] MEDS: ASPIRIN EC 81 MG TABEC PO SCH (08:02)
[2017-07-23] MEDS: PARoxetine HCL 20 MG TAB PO SCH (08:02)
[2017-07-23] MEDS: CLOPIDOGREL 75 MG TAB PO SCH (08:02)
[2017-07-23] MEDS: INSULIN DETEMIR 100 UNITS/ML VIAL SQ SCH ×2 (08:02→20:35)
[2017-07-23] MEDS: ALLOPURINOL 100 MG TAB PO SCH (08:02)
[2017-07-23] MEDS: FUROSEMIDE 40 MG TAB PO SCH (08:02)
[2017-07-23] MEDS: DOCUSATE SODIUM 50 MG/SENNA 8.6 MG TAB PO SCH ×2 (08:02→20:34)
[2017-07-23] MEDS: amLODIPine BESYLATE 5 MG TAB PO SCH ×2 (08:02→20:34)
[2017-07-23 08:21] LABS: HEMATOCRIT 30.5 % (39.0-51.0); MEAN CELL VOLUME 80.1 FL (80.0-100.0); MEAN CORPUSCULAR HEMOGLOBIN 26.3 PG (27.0-34.0); MEAN CORPUSCULAR HGB CONC 32.9 % (32.0-36.0); MEAN PLATELET VOLUME 6.8 FL (7.0-11.0); PLATELET COUNT 315 TH/MM3 (150-450); RED BLOOD COUNT 3.81 MIL/MM3 (4.50-5.90); RED CELL DISTRIBUTION WIDTH 14.5 % (11.6-17.2); WHITE BLOOD COUNT 9.2 TH/MM3 (4.0-11.0)
[2017-07-23 08:39] LABS: CALCIUM 8.9 MG/DL (8.5-10.1); CREATININE 1.11 MG/DL (0.60-1.30); MAGNESIUM 2.1 MG/DL (1.5-2.5); PHOSPHORUS 5.5 MG/DL (2.5-4.9)
--- NOTE | 2017-07-23 13:14 | HHI.CCPN ---
Subjective Remarks/Hospital Course This is a 47-year-old male with a history of morbid obesity and asthma/COPD who presents with new onset worsening shortness of breath and presyncopal type symptoms for the last 1 week. Of note, he was diagnosed with a small subsegmental left lower lobe PE about 8 months ago was on Coumadin up until 6 weeks ago when he had a left heart catheterization with stenting by Dr. Hirsch with [facility] packaging assembler and was since transition to aspirin Plavix. Also of note, the patient approximately 3 days ago had sudden onset right ankle pain and swelling and went to be evaluated by otologist and was diagnosed with a possible Achilles tendon rupture. He describes the shortness of breath is slowly worsening in the sense that he just cannot catch his breath. It is worse with exertion. He does not have any symptoms that are concerning for orthopnea, paroxysmal nocturnal dyspnea. Denies cough or fever. Denies sputum production. He does endorse cold intolerance and intermittent chills over the last 1 week. His and her father were both recently hospitalized for what she describes as "pneumonia which was not present on chest x-ray but only diagnosed on CAT scan" and she states was accompanied by "Sirs response". He states he has never been worked up or diagnosed with sleep apnea, however his states that he intermittently stops breathing and gasp for air and when he does breathe he has significant snoring with any resting or sleeping. He endorses fatigue, generalized daytime sleepiness. He denies nausea, vomiting, diarrhea, constipation, abdominal pain. The remainder of the review systems is negative. In the emergency department he was found to have a chest x-ray concerning for cardiomegaly with questionable pulmonary vascular congestion. His creatinine is slightly elevated at 1.6, so a VQ scan was ordered which was low probability for PE. He was placed on heparin drip and transferred from the [place] emergency department to the [facility] ICU. In the emergency department he was found to be quite hypoxic and hypercarbic with a primary respiratory acidosis and was placed on BiPAP. 07/20: Currently on BiPAP 18/8 at 50%. Worsening pH overnight. Arousable does follow commands. Plan for MRI of the right lower extremity today. Awake and oriented to person and place and year. 07/21: ABG improved today. BiPAP will be worn at night and as needed. MRI foot to be done today. Potassium high at 6.0. Protocol initiated and will recheck in 3 hours. Hyperglycemia/steroid-induced noted. Started on insulin detemir and high sliding scale insulin. So poorly last night. Pain management with hydrocodone/acetaminophen morphine sulfate 07/22: No acute issues overnight. Currently off his BiPAP. Will adjust pain medication and antianxiety medications per patient's request. See orders. Will consult cardiology for perioperative cardiac risk stratification prior to planned OR on Tuesday. High risk for remaining intubated postoperatively but patient is aware. SUBJECTIVE: 07/23: Currently on 1 L nasal cannula. Afebrile. Plan for OR Tuesday. Positive cough nonproductive. Objective Vital Signs Date Time Temp Pulse Resp B/P (MAP) Pulse Ox O2 Delivery O2 Flow Rate FiO2 07/23/17 12:00 97.5 74 14 158/82 (107) 90 07/23/17 08:25 BiPAP 35 07/22/17 08:20 3.00 Intake and Output 07/23/17 07/23/17 07/24/17 08:00 16:00 00:00 Intake Total 1460 ml Output Total 1550 ml Balance -90 ml Result Diagram: 07/23/17 0733 07/23/17 0733 Other Results Microbiology Date/Time Source Procedure Growth Status 07/21/17 03:42 Blood Peripheral Aerobic Blood Culture - Preliminary NO GROWTH IN 2 DAYS Resulted 07/21/17 03:42 Blood Peripheral Anaerobic Blood Culture - Preliminary NO GROWTH IN 2 DAYS Resulted 07/20/17 10:00 Urine Catheterized Urine Legionella Antigen - Final PRESUMPTIVE NEGATIVE FOR LEGIONELLA P... Complete 07/20/17 10:00 Urine Catheterized Urine Streptococcus pneumoniae Antigen (M - Final PRESUMPTIVE NEGATIVE FOR STREPTOCOCCU... Complete Imaging Last Impressions Chest X-Ray 07/23/17 0600 Signed Impressions: CONCLUSION: Cardiomegaly. Ankle MRI 07/21/17 0000 Signed Impressions: CONCLUSION: 1. Severe tendinopathy of the distal Achilles tendon with full-thickness tear. Tiny intact strand of tendon present medially. There is also partial avulsion of the Achilles tendon at the insertion site on the calcaneus. 2. Severe marrow edema posterior calcaneus especially the lateral aspect, prob ably a small impaction fracture. 3. Mild contusion posterior talus. 4. Small ankle joint effusion. Extensive subcutaneous edema. Ankle X-Ray 07/20/17 0000 Signed Impressions: CONCLUSION: Alignment in fiberglass. Lung Scan-VQ Nuclear Medicine 07/19/17 1528 Signed Impressions: CONCLUSION: 1. Low probability for pulmonary embolism. Compensated cardiomegaly. If high c linical suspicion CT angiogram would be of benefit. Objective Remarks GENERAL: Morbidly obese male, lying in bed in no acute distress HEENT: Normocephalic. Atraumatic. Pupils equal, round, reactive, conjugate about 3 mm bilaterally. Mucous membranes are moist NECK: Trachea is midline. Large kelly and large neck circumference prevent accurate assessment of JVD CHEST: Equal chest rise. Diminished. End expiratory wheeze anteriorly CARDIOVASCULAR: Normal rate, regular rhythm. S1, S2 no S4. Diminished ABDOMEN: Morbidly obese, soft, nontender, nondistended. Hypoactive bowel sounds appreciated MUSCULOSKELETAL: Pulses 2+. No peripheral edema. Right lower extremity is wrapped in Ronnell bandage with a heel splint in place. NEUROLOGICAL: Cranial nerves II through XII grossly intact. Strength is equal symmetric. Normal sensation. Follows commands. No focal deficits. Urinary Catheter: No Assessment to: Continue Vascular Central Line Catheter: No Assessment to: Continue A/P Assessment and Plan Neuro/Psych: Depression/anxiety Recent opioid use Peripheral neuropathy Adjust alprazolam 1 mg at night as needed anxiety to 0.5 mg at night as needed Resume paroxetine 20 mg p.o. daily for depression Holding gabapentin 200 mg 3 times daily for neuropathy Discussed with patient. Okay for hydrocodone/acetaminophen 5/325 to 10/325 one tablet every 4 hours as needed pain. Morphine sulfate 2 mg IV every 4 hours as needed breakthrough has been on in past without adverse reaction Respiratory: Obesity hypoventilation syndrome Recent history of pulmonary embolism/right upper lobe 2017 Acute COPD exacerbation Acute hypoxic and hypercarbic respiratory failure requiring noninvasive positive pressure ventilation BiPAP 18/8 at 50% wean the nasal cannula as needed. BiPAP at night Wean FiO2 for goal SPO2 greater than 90% Currently methylprednisolone succinate 40 mg IV 2 times daily Albuterol/ipratropium aerosols every 4 hours with albuterol aerosols every 2 hours as needed dyspnea Head of bed elevated 30 VQ scan admission low probability for pulmonary embolism Cardiovascular: Recent history of pulmonary embolism Essential hypertension Hyperlipidemia -triglycerides predominant with elevated LDH Coronary disease history of stent History of atrial fibrillation Continue heparin drip at 2300 units an hour We will need to transition to prolonged anticoagulation Pending consult cardiology [facility] group as he will likely need RHC and evaluation for right heart dysfunction as we further investigate his dyspnea. 2D echocardiogram 06/08 reveals EF 50%. LVH. LVD. Currently on carvedilol 25 twice daily, hydralazine 50 3 times daily increased to 100 mg 3 times daily amlodipine 5 mg twice daily As needed Nitropaste for hypertension Aspirin 81 mg daily and clopidogrel 75 twice daily Atorvastatin 40 mg at night for dyslipidemia Furosemide 40 mg daily resume Renal: Acute kidney injury -baseline creatinine 1.2 bili 1.39 Unclear etiology, may be chronic hypoxemia Trend on daily BMP -- Strict I/Os Avoid nephrotoxic drugs Rare urine eosinophils and prerenal indices urine electrolytes Unable to renal ultrasound due to body habitus FEN/GI: Elevated BMI Hyponatremia Hyperpotassemia Advance diet as tolerated ICU electrolyte protocol Kayexalate, insulin/D50/calcium gluconate/albuterol aerosols and sodium bicarbonate 1 now. Recheck at 1100 today Weight loss encouraged Famotidine for GI prophylaxis Docusate sodium/senna 1 tablet twice daily for bowel regimen Heme/ID: Normocytic hypochromic anemia Iron studies revealed low FE with normal TIBC. Normal ferritin. Hemoccult pending Continue heparin drip currently at 2300 units an hour Trend CBC. Currently stable Anticoagulation will discuss with cardiology recent history by his of hospitalized illness may be atypical pneumonia/ mycoplasma pneumonia. will place patient on iv azithromycin day #4 and order mycoplasma titers IgG positive IgM negative and Chlamydia as well as influenza swab. Blood cultures 2, sputum ordered as well Endocrine: Diabetes mellitus, type II Gout Holding glimepiride 2 milligrams twice daily and metformin 750 mg p.o. twice daily Allopurinol 100 mg p.o. daily for gout -- SSI Novulin R high regimen Accu-Cheks before meals at [id number] Insulin detemir 15 units subcu twice daily TSH is 1.28. MSK Osteoporosis/arthritis Right ankle/Achilles tear to PT evaluate and treat X-rays reveal a line in a fiberglass cast. MRI right ankle revealed rupture of the Achilles tendon. plans for OR on Tuesday if cleared Podiatry following Prophylaxis: GI Prophylaxis Famotidine DVT Prophylaxis -- SCDs Heparin infusion Lines: Peripheral IVs Level 3 follow-up Leonard Cochran MD Jul 23, 2017 13:14
--- NOTE | 2017-07-23 18:23 | HHI.PR ---
Subjective Remarks 47 YO Obese male with Br Asthma, HTN,DM,CAD with achilis tendon rupture Breathing better PFT restrictive lung disease Good responce to Bronchodilator Plans for surgery in AM Objective Vital Signs Vital Signs Date Time Temp Pulse Resp B/P (MAP) Pulse Ox O2 Delivery O2 Flow Rate FiO2 07/23/17 18:00 97 07/23/17 16:00 74 07/23/17 16:00 97.8 87 17 160/84 (109) 98 07/23/17 14:00 78 07/23/17 12:00 97.5 74 14 158/82 (107) 90 07/23/17 12:00 73 07/23/17 10:00 74 07/23/17 08:25 100 BiPAP 35 07/23/17 08:25 100 35 07/23/17 08:00 97.5 75 14 161/76 (104) 94 07/23/17 08:00 81 07/23/17 07:00 98 Bi-Pap 40 07/23/17 06:20 18 07/23/17 06:00 63 07/23/17 04:37 98 35 07/23/17 04:00 98.0 86 18 143/73 (96) 93 07/23/17 04:00 86 07/23/17 03:11 16 07/23/17 02:00 82 07/23/17 02:00 81 07/23/17 00:00 72 07/23/17 00:00 98.2 72 12 143/73 (96) 96 07/22/17 23:48 97 30 07/22/17 22:40 99 35 07/22/17 20:12 98 07/22/17 20:00 98.6 102 20 182/104 (130) 93 07/22/17 20:00 102 07/22/17 19:00 Room Air I/O 07/22/17 07/22/17 07/22/17 07/23/17 07/23/17 07/23/17 07:00 15:00 23:00 07:00 15:00 23:00 Intake Total 1690 ml 1100 ml 1710 ml 780 ml Output Total 2850 ml 1800 ml 1550 ml 2600 ml Balance -1160 ml -700 ml 160 ml -1820 ml Intake Oral 1440 ml 850 ml 960 ml 780 ml IV Total 250 ml 250 ml 750 ml Output Urine Total 2850 ml 1800 ml 1550 ml 2600 ml # Voids 3 5 3 # Bowel Movements 1 Result Diagram: 07/23/17 0733 07/23/17 0733 Objective Remarks GENERAL: Obese WM, NAD SKIN: Warm and dry. HEAD: Normocephalic. EYES: No scleral icterus. No injection or drainage. NECK: Supple, trachea midline. No JVD or lymphadenopathy. CARDIOVASCULAR: Regular rate and rhythm without murmurs, gallops, or rubs. RESPIRATORY: Breath sounds equal bilaterally. No accessory muscle use. GASTROINTESTINAL: Abdomen soft, non-tender, nondistended. MUSCULOSKELETAL: No cyanosis, or edema. BACK: Nontender without obvious deformity. No CVA tenderness. A/P Assessment and Plan IMPRESSION: 1. Hypercapnic respiratory insufficiency, likely from his underlying sleep apnea. 2. History of asthma. 3. Diabetes mellitus. 4. Hypertension. 5. Coronary artery disease, status post stent placement 6. History of pulmonary embolism. He is off anticoagulation. 7. Restrictive lung disease PLAN; Aerosol nebs Cont Solumedrol 02 to keep sat 88-92 % CPAP at night Stable from Pulm standpoint for surgery. SARTHAK pt and his at [facility] Luis Armando Sawyer MD Jul 23, 2017 18:23
--- NOTE | 2017-07-23 18:45 | ECHRPT ---
Indication: Heart Failure CONCLUSIONS The left ventricular systolic function is mildly reduced with an estimated ejection fraction in the range of 45- 50%. Mild infero-posterior hypokinesis Mild concentric left ventricular hypertrophy. Normal left ventricular size. The left atrial size is moderately dilated. There is trace tricuspid valve regurgitation. Trivial pulmonary valve regurgitation. BP: / HR: Rhythm: Sinus MEASUREMENTS (Male / Female) Normal Values Technical Quality:Very technically difficult study 2D ECHO LV Diastolic Diameter PLAX 5.4 cm 4.2 - 5.9 / 3.9 - 5.3 cm LV Systolic Diameter PLAX 4.4 cm IVS Diastolic Thickness 1.5 cm 0.6 - 1.0 / 0.6 - 0.9 cm LVPW Diastolic Thickness 1.3 cm 0.6 - 1.0 / 0.6 - 0.9 cm LV Relative Wall Thickness 0.5 RV Internal Dim ED PLAX 4.0 cm LVOT Diameter 2.5 cm LA Systolic Diameter LX 4.7 cm 3.0 - 4.0 / 2.7 - 3.8 cm M-MODE Aortic Root Diameter MM 3.4 cm LA Systolic Diameter MM 3.7 cm LA Ao Ratio MM 1.1 AV Cusp Separation MM 2.6 cm DOPPLER AV Peak Velocity 132.0 cm/s AV Peak Gradient 7.0 mmHg LVOT Peak Velocity 83.4 cm/s LVOT Peak Gradient 2.8 mmHg AV Area Cont Eq pk 3.1 cm MV Area PHT 4.2 cm Mitral E Point Velocity 101.0 cm/s Mitral A Point Velocity 83.4 cm/s Mitral E to A Ratio 1.2 LV E' Lateral Velocity 9.8 cm/s Mitral E to LV E' Lateral Ratio 10.3 LV E' Septal Velocity 11.0 cm/s Mitral E to LV E' Septal Ratio 9.2 FINDINGS LEFT VENTRICLE The left ventricular systolic function is mildly reduced with an estimated ejection fraction in the range of 45- 50%. Inferoposterior hypokinesis. Mild concentric left ventricular hypertrophy. Normal left ventricular size. RIGHT VENTRICLE Normal right ventricular size and systolic function. LEFT ATRIUM The left atrial size is moderately dilated. RIGHT ATRIUM The right atrial size is normal. ATRIAL SEPTUM Normal atrial septal thickness without atrial level shunting by limited color doppler interrogation. AORTA The aortic root and proximal ascending aorta are normal in size on limited imaging. MITRAL VALVE Structurally normal mitral valve. No mitral valve stenosis or regurgitation. AORTIC VALVE Trileaflet aortic valve. No aortic valve stenosis or regurgitation. TRICUSPID VALVE Structurally normal tricuspid valve. There is trace tricuspid valve regurgitation. PULMONARY VALVE Trivial pulmonary valve regurgitation. VESSELS The inferior vena cava is normal in size. PERICARDIUM No pericardial effusion. Dirk Cha MD (Electronically Signed) Final Date:23 July 2017 18:44
[2017-07-23] MEDS: ATORVASTATIN 40 MG TAB PO SCH (20:34)
[2017-07-23] MEDS: NITROGLYCERIN 2% OINT 1 GM PACKET TOPICAL PRN (22:02)
[2017-07-23] MEDS: AZITHROMYCIN INJ 500 MG in SODIUM CHLOR 0.9% 250 ML INJ 250 ML IV SCH (22:02)
[2017-07-23] MEDS: ALPRAZolam 0.5 MG TAB PO PRN (22:47)
[2017-07-24] VITALS (12 sets, daily range): BP systolic 136–184; BP diastolic 76–89; PULSE 73–96; RESP 12–23; TEMP 97.8–98.2; O2SAT 93–100
[2017-07-24] MEDS: MORPHINE SULFATE 4 MG/ML INJ IV PRN ×4 (01:23→15:00)
[2017-07-24] MEDS: ISOSORBIDE DINITRATE 10 MG TAB PO SCH ×3 (01:23→17:55)
[2017-07-24] MEDS: ACETAMINOPHEN/HYDROcodone 325 MG/10 MG TAB PO PRN ×2 (02:37→14:08)
[2017-07-24] MEDS: INSULIN NovoLIN REGULAR SUPPLEMENTAL SCALE SQ SCH ×5 (02:37→21:03)
[2017-07-24 03:49] LABS: C PNEUMO IGA <1:16 (<1:16); C PNEUMO IGG <1:64 (<1:64); C PNEUMO IGM <1:10 (<1:10)
[2017-07-24] MEDS: CHLORHEXIDINE GLUCONATE 2 % 1 PACK (2 CLOTHS) TOP SCH (03:53)
[2017-07-24 04:41] LABS: HEMATOCRIT 30.8 % (39.0-51.0); MEAN CELL VOLUME 80.1 FL (80.0-100.0); MEAN CORPUSCULAR HEMOGLOBIN 26.1 PG (27.0-34.0); MEAN CORPUSCULAR HGB CONC 32.6 % (32.0-36.0); MEAN PLATELET VOLUME 6.7 FL (7.0-11.0); PLATELET COUNT 335 TH/MM3 (150-450); RED BLOOD COUNT 3.84 MIL/MM3 (4.50-5.90); RED CELL DISTRIBUTION WIDTH 14.6 % (11.6-17.2); WHITE BLOOD COUNT 7.5 TH/MM3 (4.0-11.0)
[2017-07-24 04:53] LABS: INTERNATIONAL NORMALIZED RATIO 1.1 RATIO; PROTHROMBIN TIME - PATIENT 10.9 SEC (9.8-11.6)
[2017-07-24 05:07] LABS: BICARBONATE 29.7 MEQ/L (21.0-32.0); CALCIUM 8.6 MG/DL (8.5-10.1); CREATININE 1.12 MG/DL (0.60-1.30); MAGNESIUM 2.1 MG/DL (1.5-2.5)
[2017-07-24 05:10] LABS: PHOSPHORUS 4.4 MG/DL (2.5-4.9)
[2017-07-24] MEDS: RESP: ALBUTEROL 2.5 MG/IPRATROPIUM 0.5 MG NEB (SCH) NEB ×4 (08:07→20:09)
[2017-07-24] MEDS ORDERED: LIDOCAINE HCL 2% PF 10 ML VIAL ONE (08:49)
--- NOTE | 2017-07-24 08:54 | HHI.CCPN ---
Subjective Remarks/Hospital Course This is a 47-year-old male with a history of morbid obesity and asthma/COPD who presents with new onset worsening shortness of breath and presyncopal type symptoms for the last 1 week. Of note, he was diagnosed with a small subsegmental left lower lobe PE about 8 months ago was on Coumadin up until 6 weeks ago when he had a left heart catheterization with stenting by Dr. Hirsch with [facility] recreation coordinator and was since transition to aspirin Plavix. Also of note, the patient approximately 3 days ago had sudden onset right ankle pain and swelling and went to be evaluated by laboratory manager and was diagnosed with a possible Achilles tendon rupture. He describes the shortness of breath is slowly worsening in the sense that he just cannot catch his breath. It is worse with exertion. He does not have any symptoms that are concerning for orthopnea, paroxysmal nocturnal dyspnea. Denies cough or fever. Denies sputum production. He does endorse cold intolerance and intermittent chills over the last 1 week. His and her father were both recently hospitalized for what she describes as "pneumonia which was not present on chest x-ray but only diagnosed on CAT scan" and she states was accompanied by "Sirs response". He states he has never been worked up or diagnosed with sleep apnea, however his states that he intermittently stops breathing and gasp for air and when he does breathe he has significant snoring with any resting or sleeping. He endorses fatigue, generalized daytime sleepiness. He denies nausea, vomiting, diarrhea, constipation, abdominal pain. The remainder of the review systems is negative. In the emergency department he was found to have a chest x-ray concerning for cardiomegaly with questionable pulmonary vascular congestion. His creatinine is slightly elevated at 1.6, so a VQ scan was ordered which was low probability for PE. He was placed on heparin drip and transferred from the [facility] emergency department to the [facility] ICU. In the emergency department he was found to be quite hypoxic and hypercarbic with a primary respiratory acidosis and was placed on BiPAP. 07/20: Currently on BiPAP 18/8 at 50%. Worsening pH overnight. Arousable does follow commands. Plan for MRI of the right lower extremity today. Awake and oriented to person and place and year. 07/21: ABG improved today. BiPAP will be worn at night and as needed. MRI foot to be done today. Potassium high at 6.0. Protocol initiated and will recheck in 3 hours. Hyperglycemia/steroid-induced noted. Started on insulin detemir and high sliding scale insulin. So poorly last night. Pain management with hydrocodone/acetaminophen morphine sulfate 07/22: No acute issues overnight. Currently off his BiPAP. Will adjust pain medication and antianxiety medications per patient's request. See orders. Will consult cardiology for perioperative cardiac risk stratification prior to planned OR on Tuesday. High risk for remaining intubated postoperatively but patient is aware. 07/23: Currently on 1 L nasal cannula. Afebrile. Plan for OR Tuesday. Positive cough nonproductive. SUBJECTIVE: 07/24: Afebrile. Currently resting in bed in no acute distress. Plan for or today. High blood pressure noted. Laboratory stable Objective Vital Signs Date Time Temp Pulse Resp B/P (MAP) Pulse Ox O2 Delivery O2 Flow Rate FiO2 07/24/17 06:00 77 07/24/17 05:06 22 07/24/17 04:00 97.9 169/82 (111) 100 07/24/17 02:50 35 07/23/17 20:05 Nasal Cannula 2.00 Intake and Output 07/24/17 07/24/17 07/25/17 08:00 16:00 00:00 Intake Total 720 ml Output Total 1800 ml Balance -1080 ml Result Diagram: 07/24/17 0407 07/24/17 0407 Other Results Microbiology Date/Time Source Procedure Growth Status 07/21/17 03:42 Blood Peripheral Aerobic Blood Culture - Preliminary NO GROWTH IN 2 DAYS Resulted 07/21/17 03:42 Blood Peripheral Anaerobic Blood Culture - Preliminary NO GROWTH IN 2 DAYS Resulted 07/20/17 10:00 Urine Catheterized Urine Legionella Antigen - Final PRESUMPTIVE NEGATIVE FOR LEGIONELLA P... Complete 07/20/17 10:00 Urine Catheterized Urine Streptococcus pneumoniae Antigen (M - Final PRESUMPTIVE NEGATIVE FOR STREPTOCOCCU... Complete Imaging Last Impressions Chest X-Ray 07/23/17 0600 Signed Impressions: CONCLUSION: Cardiomegaly. Ankle MRI 07/21/17 0000 Signed Impressions: CONCLUSION: 1. Severe tendinopathy of the distal Achilles tendon with full-thickness tear. Tiny intact strand of tendon present medially. There is also partial avulsion of the Achilles tendon at the insertion site on the calcaneus. 2. Severe marrow edema posterior calcaneus especially the lateral aspect, prob ably a small impaction fracture. 3. Mild contusion posterior talus. 4. Small ankle joint effusion. Extensive subcutaneous edema. Ankle X-Ray 07/20/17 0000 Signed Impressions: CONCLUSION: Alignment in fiberglass. Lung Scan-VQ Nuclear Medicine 07/19/17 1528 Signed Impressions: CONCLUSION: 1. Low probability for pulmonary embolism. Compensated cardiomegaly. If high c linical suspicion CT angiogram would be of benefit. Objective Remarks GENERAL: Morbidly obese male, lying in bed in no acute distress HEENT: Normocephalic. Atraumatic. Pupils equal, round, reactive, conjugate about 3 mm bilaterally. Mucous membranes are moist NECK: Trachea is midline. Large kelly and large neck circumference prevent accurate assessment of JVD CHEST: Equal chest rise. Diminished. End expiratory wheeze anteriorly CARDIOVASCULAR: Normal rate, regular rhythm. S1, S2 no S4. Diminished ABDOMEN: Morbidly obese, soft, nontender, nondistended. Hypoactive bowel sounds appreciated MUSCULOSKELETAL: Pulses 2+. No peripheral edema. Right lower extremity is wrapped in Ronnell bandage with a heel splint in place. NEUROLOGICAL: Cranial nerves II through XII grossly intact. Strength is equal symmetric. Normal sensation. Follows commands. No focal deficits. Urinary Catheter: No Assessment to: Continue Vascular Central Line Catheter: No Assessment to: Continue A/P Assessment and Plan Neuro/Psych: Depression/anxiety Recent opioid use Peripheral neuropathy Adjust alprazolam 1 mg at night as needed anxiety to 0.5 mg at night as needed Resume paroxetine 20 mg p.o. daily for depression Holding gabapentin 200 mg 3 times daily for neuropathy Discussed with patient. Okay for hydrocodone/acetaminophen 5/325 to 10/325 one tablet every 4 hours as needed pain. Morphine sulfate 2 mg IV every 4 hours as needed breakthrough has been on in past without adverse reaction Respiratory: Obesity hypoventilation syndrome Recent history of pulmonary embolism/right upper lobe 2017 Acute COPD exacerbation Acute hypoxic and hypercarbic respiratory failure requiring noninvasive positive pressure ventilation BiPAP 18/8 at 50% wean the nasal cannula as needed. BiPAP at night Wean FiO2 for goal SPO2 greater than 90% Currently methylprednisolone succinate 40 mg IV 2 times daily Albuterol/ipratropium aerosols every 4 hours with albuterol aerosols every 2 hours as needed dyspnea Head of bed elevated 30 VQ scan admission low probability for pulmonary embolism Dr. Sawyer pulmonary following. Okay for surgery Cardiovascular: Recent history of pulmonary embolism Essential hypertension Hyperlipidemia -triglycerides predominant with elevated LDH Coronary disease history of stent History of atrial fibrillation Currently holding heparin drip at 2300 units an hour to OR today We will need to transition to prolonged anticoagulation Followed by cardiology [facility] group. Cleared for surgery 2D echocardiogram 06/08 reveals EF 50%. LVH. LVD. Currently on carvedilol 25 twice daily, hydralazine 50 3 times daily increased to 100 mg 3 times daily amlodipine 5 mg twice daily As needed Nitropaste for hypertension Aspirin 81 mg daily and clopidogrel 75 twice daily Atorvastatin 40 mg at night for dyslipidemia Furosemide 40 mg daily resume Renal: Acute kidney injury -baseline creatinine 1.2 Unclear etiology but resolved Trend on daily BMP -- Strict I/Os Avoid nephrotoxic drugs Rare urine eosinophils and prerenal indices urine electrolytes Unable to renal ultrasound due to body habitus FEN/GI: Elevated BMI Advance diet as tolerated ICU electrolyte protocol Weight loss encouraged Famotidine for GI prophylaxis Docusate sodium/senna 1 tablet twice daily for bowel regimen Heme/ID: Normocytic hypochromic anemia Iron studies revealed low FE with normal TIBC. Normal ferritin. Hemoccult pending Holding heparin drip currently at 2300 units an hour for OR today Trend CBC. Currently stable Anticoagulation recent history by his of hospitalized illness may be atypical pneumonia/ mycoplasma pneumonia. will place patient on iv azithromycin day #4 and order mycoplasma titers IgG positive IgM negative and Chlamydia as well as influenza swab. Blood cultures 2, sputum ordered as well Endocrine: Diabetes mellitus, type II Gout Holding glimepiride 2 milligrams twice daily and metformin 750 mg p.o. twice daily Allopurinol 100 mg p.o. daily for gout -- SSI Novulin R high regimen Accu-Cheks before meals at [id number] Insulin detemir 15 units subcu twice daily TSH is 1.28. MSK Osteoporosis/arthritis Right ankle/Achilles tear PT evaluate and treat X-rays reveal a line in a fiberglass cast. MRI right ankle revealed rupture of the Achilles tendon. plans for OR today 07/24 Podiatry following Prophylaxis: GI Prophylaxis Famotidine DVT Prophylaxis -- SCDs Heparin infusion on hold for OR Lines: Peripheral IVs Level 3 follow-up Leonard Cochran MD Jul 24, 2017 08:54
[2017-07-24] MEDS: INSULIN DETEMIR 100 UNITS/ML VIAL SQ SCH ×2 (09:00→21:03)
[2017-07-24] MEDS: ASPIRIN EC 81 MG TABEC PO SCH (09:00)
[2017-07-24] MEDS: CLOPIDOGREL 75 MG TAB PO SCH (09:00)
[2017-07-24] MEDS ORDERED: DO NOT ADM ANY ANTICOAGULANT DRUGS PRN (11:10)
[2017-07-24] MEDS ORDERED: *MEPERIDINE 25 MG INJ VIAL PERIprocedural Use ONLY ONE (11:18)
[2017-07-24] MEDS ORDERED: MIDAZOLAM HCL 2 MG/2 ML VIAL ONE (11:22)
[2017-07-24] MEDS ORDERED: *LABETALOL HCL 100 MG/20 ML VIAL PERIprocedural Use ONLY ONE (11:40)
--- NOTE | 2017-07-24 11:43 | HHI.PR ---
Immediate Post Op Note Procedure Date: Jul 24, 2017 Pre Op Diagnosis: Right achilles tendon rupture Post Op Diagnosis: Same Surgeon: Magalis Murillo DPM Geography Department Chair(s): Staff Procedure: 1. Open repair of right achilles tendon rupture 2. Flexor hallucis longus tendon transfer right 3. Gastrocnemius recession right Findings: Consistent with diagnosis. insertional tear of achilles tendon, complete, with retraction. Thickened, diseased, tendon with fatty replacement noted. Plantaris tendon attachment preserved. Debrided anterior half of achilles tendon. Removed bone to retrocalcaneal insertional area. Retrieved and transferred flexor hallucis longus tendon to superior calcaneus and fixated with arthrex tendon anchor. Open gastrocnemius recession performed to achieve 3cm additional length of distal tendon, followed by Arthrex speedbridge system utilized to re-attach achilles tendon to calcaneus. Residual suture utilized to complete repair of tendon, followed by irrigation and closure with 2-0 vicryl and 2-0 nylon suture. Dressing with xeroform, 4x4, abd, cast padding, rolanda to right lower extremity. Posterior splint placed in slight equinus. Strict Nonweightbearing right lower extremity. PT to eval/treat. Recommend rehab if patient cannot comply. Patient should follow up in clinic 1 week for dressing change. OK to re-start anticoagulation tomorrow Additional Information: 2g ancef IV preop Complications: none Specimen(s) removed: none Estimated blood loss: 20mL Anesthesia: General, Local (10mL 2% lidocaine plain) Drains: None IVF Tourniquet time (min at mmHg) 108 min @ 300mmHg right thigh Patient to: PACU Patient Condition: Good Implant/Devices: SEE IMPLANT LOG (if applicable) Date/Time of Procedure: SEE SURGICAL CARE RECORD Magalis Murillo DPM Jul 24, 2017 11:42
[2017-07-24] MEDS ORDERED: PHENYLEPH/NS 1000 MCG/10 ML SYR IV ONE (12:00)
[2017-07-24] MEDS ORDERED: ONDANSETRON HCL 4 MG/2 ML VIAL IV ONE (12:00)
[2017-07-24] MEDS ORDERED: PROPOFOL 200 MG/20 ML AMP IV ONE (12:00)
[2017-07-24] MEDS ORDERED: SUCCINYLCHOLINE CHLORIDE 100 MG/5 ML SYRINGE IV PUSH ONE (12:00)
[2017-07-24] MEDS ORDERED: ROCURONIUM INJ 50 MG/5 ML SYRINGE IV PUSH ONE (12:00)
[2017-07-24] MEDS ORDERED: LIDOCAINE HCL 1% PF 5 ML SYRINGE OTHER ONE (12:00)
[2017-07-24] MEDS: FAMOTIDINE 20 MG TAB PO SCH (12:15)
[2017-07-24] MEDS: DOCUSATE SODIUM 50 MG/SENNA 8.6 MG TAB PO SCH ×2 (12:16→21:03)
[2017-07-24] MEDS: methylPREDNISolone SOD SUCC 40 MG/1 ML VIAL IV PUSH SCH ×2 (12:16→21:02)
[2017-07-24] MEDS: FUROSEMIDE 40 MG TAB PO SCH (12:16)
[2017-07-24] MEDS: amLODIPine BESYLATE 5 MG TAB PO SCH ×2 (12:17→21:03)
[2017-07-24] MEDS: CARVEDILOL 12.5 MG TAB PO SCH ×2 (12:17→21:04)
[2017-07-24] MEDS: PARoxetine HCL 20 MG TAB PO SCH (12:17)
[2017-07-24] MEDS: ALLOPURINOL 100 MG TAB PO SCH (12:17)
[2017-07-24] MEDS: hydrALAZINE HCL 100 MG TAB PO SCH ×3 (13:00→17:54)
[2017-07-24] MEDS: NITROGLYCERIN 2% OINT 1 GM PACKET TOPICAL PRN (13:24)
[2017-07-24] MEDS ORDERED: cloNIDine HCL 0.1 MG TAB PO PRN (13:45)
[2017-07-24] MEDS ORDERED: CLEVIDIPINE INJ 50 ML IV PRN (13:45)
[2017-07-24] MEDS ORDERED: LABETALOL HCL 100 MG/20 ML VIAL IV PUSH ONE (13:45)
--- NOTE | 2017-07-24 14:06 | RADRPT ---
EXAM DATE: 07/24/2017 1:56 PM EDT AGE/SEX: 47 years / Male INDICATIONS: Post op right Achilles tendon surgery. CLINICAL DATA: This is the patient's subsequent encounter. Patient reports that signs and symptoms h ave been present for 2 days and indicates a pain score of Nonresponsive. MEDICAL/SURGICAL HISTORY: . Hypertension. Chronic obstructive pulmonary disease . Coronary art ana rosa stent. None. COMPARISON: [facility], ANKLE RIGHT COMPLETE ([id number]), 07/17/2017. [facility], ANKLE RIGHT COMPLETE ([id number]) , 07/20/2017. . FINDINGS: Multiple views of the right ankle are obtained through cast which obscures fine bony detail. A focal cortical disruption is suspected of the posterior calcaneus, just posterior to the subtalar joint and best demonstrated on the lateral. Patchy calcification again seen in the region of the distal Achill es. There are no subluxations. A large os peroneum is again seen. Probably an accessory navicular as well. Mild ankle, subtalar and talonavicular osteoarthritis. CONCLUSION: 1. An apparent focal cortical break of the calcaneus just posterior to the subtalar joint. This appe ars new. 2. Splint present. 3. Multifocal ankle and hindfoot osteoarthritis. 4. Accessory navicular and large os peroneum. Electronically signed by: Stephen Burt MD 07/24/2017 2:05 PM EDT
[2017-07-24] MEDS ORDERED: ACETAMINOPHEN 1000 MG/100 ML 100 ML IV ONE (14:30)
[2017-07-24] MEDS: PCA - TOTAL MG MORPHINE DELIVERED PER SHIFT SCH ×2 (14:30→22:00)
[2017-07-24] MEDS ORDERED: NALOXONE HCL 0.4 MG/ML AMP IV PUSH PRN (14:30)
[2017-07-24] MEDS: MORPHINE SULFATE 30 MG/30 ML PCA IV SCH ×2 (14:58→18:14)
--- NOTE | 2017-07-24 17:33 | MP ---
cc: Francisco Murillojaidenroxann MCGILL DATE OF OPERATION: 07/24/2017 DATE OF SURGERY: 07/24/2017. INDICATION FOR PROCEDURE: The patient presented initially with pain to his right lower extremity after he had suffered from Achilles pain for at least a month. He was placed in a boot by his outside biscuit factory worker, Dr. Guillermo and decided to take the boot off and did some walking without the boot on and felt a pop in the back of his right Achilles tendon area. During his admission, we ordered MRI that showed a complete rupture of the right Achilles tendon just proximal to its insertion area. I discussed with the patient the risks, benefits and potential complications of surgery and he agreed to move forward with open repair of right Achilles tendon rupture with possible flexor hallucis longus tendon transfer and gastrocnemius recession, right lower extremity. He was seen in preop holding by myself, nursing staff, and anesthesia, where the correct patient, side, and site were all confirmed to be correct and the right lower extremity. The findings were consistent with the diagnosis. DESCRIPTION OF PROCEDURE: He was taken back to the surgical suite in the prone position. Attention was directed to the right lower extremity where it was noted that he did in fact have an insertional tear of the Achilles tendon with a palpable gap noted of the Achilles tendon. Upon prepping and draping of the right lower extremity, he had a thigh tourniquet placed. Time-outs were performed as per facility protocol and attention was directed to the medial aspect of the right Achilles tendon, where an approximately 10 cm incision was made over the area from the Achilles tendon insertion up to the gastrocnemius aponeurosis area. There was noted to be insertional tear of the Achilles tendon that was complete, with retraction. The tendon was thickened and diseased with fatty replacement noted to the anterior aspect. The plantaris tendon attachment was preserved medially to the aspect of the calcaneus. The anterior half of the Achilles tendon was debrided sharply with a #15 blade. The distal portion was incised centrally and reflected back, both medially and laterally in order to remove bone from the retrocalcaneal area to the posterior superior aspect of the calcaneus. After bone was removed from this area all the way from the posterior aspect to just abutting the subtalar joint to have fresh healthy bleeding bone in order to attach the tendons to, the flexor hallucis longus tendon was retrieved and transferred to the superior aspect of the calcaneus and fixated with an Arthrex tendon anchor. An open gastrocnemius recession was performed using a #15 blade in order to achieve an additional 2-3 cm of additional length to the tendon. Following this, the Arthrex SpeedBridge system was utilized to reattach the Achilles tendon to the posterior superior calcaneus using their anchor interlocking system. The residual suture was utilized to complete the repair of the tendon, followed by irrigation and closure of the wound with both 2-0 Vicryl and 2-0 nylon suture. Dressing consisting of Xeroform, 4 x 4's, ABD, cast padding and Ronnell bandage was applied to the right lower extremity. The patient was placed in a posterior splint in slight equinus. He tolerated the procedure and anesthesia well without complications and was taken back to PACU with vital signs stable and vascular status intact to the right lower extremity. He will be strictly nonweightbearing to the right lower extremity. I request PT to evaluate and treat and recommend rehab placement if the patient cannot comply. He needs to otherwise follow up in clinic in 1 week for a dressing change and he can go ahead and start his anticoagulation tomorrow secondary to his history of blood clots in the past. SHORT OPERATIVE NOTE SURGEON: Magalis Murillo DPM CLIP WRAPPER: Staff. PREOPERATIVE DIAGNOSIS: Achilles tendon rupture, right lower extremity. POSTOPERATIVE DIAGNOSIS: Achilles tendon rupture, right lower extremity. PROCEDURE PERFORMED: Open repair of right Achilles tendon rupture with flexor hallucis longus tendon transfer and gastrocnemius recession, right lower extremity. PROPHYLAXIS: Two grams Ancef IV. PATHOLOGY: None. ANESTHESIA: General endotracheal anesthesia plus local consisting of 10 mL of 2% lidocaine plain. BLOOD LOSS: 20 mL. COMPLICATIONS: None. TOURNIQUET TIME: Right thigh at 300 mmHg x 108 minutes. CONDITION: Stable to PACU. DISPOSITION: Nonweightbearing right lower extremity. Followup in clinic in 1 week for a dressing change. Recommend rehabilitation as the patient cannot comply with nonweightbearing status. NANO Garcia/ANGEL , 05:11 PM , 05:32 PM
[2017-07-24] MEDS: GABAPENTIN 300 MG CAP PO SCH (17:54)
--- NOTE | 2017-07-24 18:50 | HHI.PR ---
Subjective Remarks 47 YO Obese male with Br Asthma, HTN,DM,CAD with achilles tendon rupture Breathing better PFT restrictive lung disease Good responce to Bronchodilator Had Achilles tendon repair Objective Vital Signs Vital Signs Date Time Temp Pulse Resp B/P (MAP) Pulse Ox O2 Delivery O2 Flow Rate FiO2 07/24/17 18:14 20 07/24/17 18:00 87 07/24/17 16:00 85 07/24/17 16:00 98.2 85 23 136/76 (96) 93 07/24/17 15:15 27 07/24/17 15:15 27 07/24/17 15:05 22 07/24/17 15:03 20 07/24/17 14:00 92 07/24/17 12:00 98.2 96 12 176/83 (114) 95 07/24/17 12:00 Nasal Cannula 4.00 95 07/24/17 12:00 93 07/24/17 11:45 113 18 171/81 (111) 93 Nasal Cannula 4 07/24/17 11:30 110 18 182/88 (119) 92 Nasal Cannula 4 07/24/17 11:15 97.8 117 18 193/98 (129) 97 Nasal Cannula 4 07/24/17 06:00 77 07/24/17 05:06 22 07/24/17 04:00 80 07/24/17 04:00 97.9 92 12 169/82 (111) 100 07/24/17 02:50 100 35 07/24/17 02:00 92 07/24/17 00:00 78 07/24/17 00:00 97.8 94 13 184/89 (120) 97 07/23/17 22:00 87 07/23/17 20:05 98 Nasal Cannula 2.00 07/23/17 20:00 84 07/23/17 20:00 98.0 84 13 188/89 (122) 98 07/23/17 19:00 94 Nasal Cannula 2.00 I/O 07/23/17 07/23/17 07/23/17 07/24/17 07/24/17 07/24/17 07:00 15:00 23:00 07:00 15:00 23:00 Intake Total 1710 ml 780 ml 970 ml 900 ml 790 ml Output Total 1550 ml 2600 ml 1800 ml 20 ml 1400 ml Balance 160 ml -1820 ml -830 ml 880 ml -610 ml Intake Oral 960 ml 780 ml 720 ml 660 ml IV Total 750 ml 250 ml 130 ml Other 900 ml Output Urine Total 1550 ml 2600 ml 1800 ml 1400 ml Estimated Blood Loss 20 ml # Voids 3 3 1 # Bowel Movements 1 Result Diagram: 07/24/1740607/24/17406 Objective Remarks GENERAL: Obese WM, NAD SKIN: Warm and dry. HEAD: Normocephalic. EYES: No scleral icterus. No injection or drainage. NECK: Supple, trachea midline. No JVD or lymphadenopathy. CARDIOVASCULAR: Regular rate and rhythm without murmurs, gallops, or rubs. RESPIRATORY: Breath sounds equal bilaterally. No accessory muscle use. GASTROINTESTINAL: Abdomen soft, non-tender, nondistended. MUSCULOSKELETAL: No cyanosis, or edema. BACK: Nontender without obvious deformity. No CVA tenderness. A/P Assessment and Plan IMPRESSION: 1. Hypercapnic respiratory insufficiency, likely from his underlying sleep apnea. 2. History of asthma. 3. Diabetes mellitus. 4. Hypertension. 5. Coronary artery disease, status post stent placement 6. History of pulmonary embolism. He is off anticoagulation. 7. Restrictive lung disease PLAN; Aerosol nebs Cont Solumedrol 02 to keep sat 88-92 % CPAP at night pain controll SARTHAK pt and his at BS Luis Armando Sawyer MD Jul 24, 2017 18:50
[2017-07-24] MEDS: ATORVASTATIN 40 MG TAB PO SCH (21:04)
[2017-07-24] MEDS: ALPRAZolam 0.5 MG TAB PO PRN (22:51)
[2017-07-24] MEDS: AZITHROMYCIN INJ 500 MG in SODIUM CHLOR 0.9% 250 ML INJ 250 ML IV SCH (22:52)
[2017-07-25] VITALS (15 sets, daily range): BP systolic 123–163; BP diastolic 58–83; PULSE 73–100; RESP 15–26; TEMP 98–98.5; O2SAT 96–100
[2017-07-25] MEDS: GABAPENTIN 300 MG CAP PO SCH ×3 (00:16→17:35)
[2017-07-25] MEDS: ISOSORBIDE DINITRATE 10 MG TAB PO SCH ×3 (01:09→17:36)
[2017-07-25] MEDS: INSULIN NovoLIN REGULAR SUPPLEMENTAL SCALE SQ SCH ×4 (02:35→21:39)
[2017-07-25] MEDS: MORPHINE SULFATE 30 MG/30 ML PCA IV SCH ×3 (03:20→19:40)
[2017-07-25 03:59] LABS: AUTOMATED NEUTROPHIL # 7.4 TH/MM3 (1.8-7.7); BASOPHIL % 0.1 % (0.0-2.0); HEMATOCRIT 30.7 % (39.0-51.0); HEMOGLOBIN 9.7 GM/DL (13.0-17.0); LYMPH % 10.4 % (9.0-44.0); LYMPHOCYTE # 1.1 TH/MM3 (1.0-4.8); MEAN CELL VOLUME 81.3 FL (80.0-100.0); MEAN CORPUSCULAR HEMOGLOBIN 25.7 PG (27.0-34.0); MEAN CORPUSCULAR HGB CONC 31.6 % (32.0-36.0); MEAN PLATELET VOLUME 6.8 FL (7.0-11.0); MONOCYTE # 2.4 TH/MM3 (0-0.9); NEUT % 67.5 % (16.0-70.0); PLATELET COUNT 312 TH/MM3 (150-450); RED BLOOD COUNT 3.78 MIL/MM3 (4.50-5.90); RED CELL DISTRIBUTION WIDTH 14.4 % (11.6-17.2)
[2017-07-25] MEDS: CHLORHEXIDINE GLUCONATE 2 % 1 PACK (2 CLOTHS) TOP SCH (04:00)
[2017-07-25] MEDS: RESP: ALBUTEROL 2.5 MG/IPRATROPIUM 0.5 MG NEB (SCH) NEB ×7 (04:19→23:31)
[2017-07-25 04:33] LABS: ALBUMIN 2.4 GM/DL (3.4-5.0); AST (GOT) 7 U/L (15-37); BICARBONATE 31.2 MEQ/L (21.0-32.0); BLOOD UREA NITROGEN 43 MG/DL (7-18); CALCIUM 8.4 MG/DL (8.5-10.1); CHLORIDE 96 MEQ/L (98-107); CREATININE 1.51 MG/DL (0.60-1.30); GLOMERULAR FILTRATION RATE 50 ML/MIN (>89); GLUCOSE,RANDOM 184 MG/DL (74-106); MAGNESIUM 2.1 MG/DL (1.5-2.5); SODIUM (NA) 136 MEQ/L (136-145)
[2017-07-25 04:43] LABS: ALKALINE PHOSPHATASE 107 U/L (45-117); ALT (GPT) 17 U/L (12-78); PHOSPHORUS 5.6 MG/DL (2.5-4.9); TOTAL BILIRUBIN ADULT 0.3 MG/DL (0.2-1.0)
[2017-07-25] MEDS: PCA - TOTAL MG MORPHINE DELIVERED PER SHIFT SCH ×3 (06:00→22:33)
--- NOTE | 2017-07-25 07:28 | HHI.CCPN ---
Subjective Remarks/Hospital Course This is a 47-year-old male with a history of morbid obesity and asthma/COPD who presents with new onset worsening shortness of breath and presyncopal type symptoms for the last 1 week. Of note, he was diagnosed with a small subsegmental left lower lobe PE about 8 months ago was on Coumadin up until 6 weeks ago when he had a left heart catheterization with stenting by Dr. 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 Also of note, the patient approximately 3 days ago had sudden onset right ankle pain and swelling and went to be evaluated by typecasting machine operator and was diagnosed with a possible Achilles tendon rupture. He describes the shortness of breath is slowly worsening in the sense that he just cannot catch his breath. It is worse with exertion. He does not have any symptoms that are concerning for orthopnea, paroxysmal nocturnal dyspnea. Denies cough or fever. Denies sputum production. He does endorse cold intolerance and intermittent chills over the last 1 week. His and her father were both recently hospitalized for what she describes as "pneumonia which was not present on chest x-ray but only diagnosed on CAT scan" and she states was accompanied by "Sirs response". He states he has never been worked up or diagnosed with sleep apnea, however his states that he intermittently stops breathing and gasp for air and when he does breathe he has significant snoring with any resting or sleeping. He endorses fatigue, generalized daytime sleepiness. He denies nausea, vomiting, diarrhea, constipation, abdominal pain. The remainder of the review systems is negative. In the emergency department he was found to have a chest x-ray concerning for cardiomegaly with questionable pulmonary vascular congestion. His creatinine is slightly elevated at 1.6, so a VQ scan was ordered which was low probability for PE. He was placed on heparin drip and transferred from the [place] emergency department to the [facility] ICU. In the emergency department he was found to be quite hypoxic and hypercarbic with a primary respiratory acidosis and was placed on BiPAP. 07/20: Currently on BiPAP 18/8 at 50%. Worsening pH overnight. Arousable does follow commands. Plan for MRI of the right lower extremity today. Awake and oriented to person and place and year. 07/21: ABG improved today. BiPAP will be worn at night and as needed. MRI foot to be done today. Potassium high at 6.0. Protocol initiated and will recheck in 3 hours. Hyperglycemia/steroid-induced noted. Started on insulin detemir and high sliding scale insulin. So poorly last night. Pain management with hydrocodone/acetaminophen morphine sulfate 07/22: No acute issues overnight. Currently off his BiPAP. Will adjust pain medication and antianxiety medications per patient's request. See orders. Will consult cardiology for perioperative cardiac risk stratification prior to planned OR on Tuesday. High risk for remaining intubated postoperatively but patient is aware. 07/23: Currently on 1 L nasal cannula. Afebrile. Plan for OR Tuesday. Positive cough nonproductive. SUBJECTIVE: 07/24: Afebrile. Currently resting in bed in no acute distress. Plan for or today. High blood pressure noted. Laboratory stable. 07/25: uncontrolled pain overnight. started morphine flight kitchen manager, but per he obstructs and becomes hypoxic with flight kitchen manager, and was still in 10/10 pain. also remains hypertensive. Objective Vital Signs Date Time Temp Pulse Resp B/P (MAP) Pulse Ox O2 Delivery O2 Flow Rate FiO2 07/25/17 06:00 78 07/25/17 04:00 98.0 20 152/80 (104) 100 07/25/17 00:49 35 07/24/17 20:10 Nasal Cannula 2.00 Intake and Output 07/25/17 07/25/17 07/26/17 08:00 16:00 00:00 Intake Total 800 ml Output Total 1100 ml Balance -300 ml Result Diagram: 07/25/17 0304 07/25/17 0304 Imaging Last Impressions Chest X-Ray 07/23/17 0600 Signed Impressions: CONCLUSION: Cardiomegaly. Ankle MRI 07/21/17 0000 Signed Impressions: CONCLUSION: 1. Severe tendinopathy of the distal Achilles tendon with full-thickness tear. Tiny intact strand of tendon present medially. There is also partial avulsion of the Achilles tendon at the insertion site on the calcaneus. 2. Severe marrow edema posterior calcaneus especially the lateral aspect, prob ably a small impaction fracture. 3. Mild contusion posterior talus. 4. Small ankle joint effusion. Extensive subcutaneous edema. Ankle X-Ray 07/20/17 0000 Signed Impressions: CONCLUSION: Alignment in fiberglass. Lung Scan-V Nuclear Medicine 07/19/17 2995 Signed Impressions: CONCLUSION: 1. Low probability for pulmonary embolism. Compensated cardiomegaly. If high c linical suspicion CT angiogram would be of benefit. Objective Remarks GENERAL: Morbidly obese male, lying in bed in distress from pain HEENT: Normocephalic. Atraumatic. Pupils equal, round, reactive, conjugate about 3 mm bilaterally. Mucous membranes are moist NECK: Trachea is midline. Large kelly and large neck circumference prevent accurate assessment of JVD CHEST: Equal chest rise. Diminished. End expiratory wheeze anteriorly CARDIOVASCULAR: Normal rate, regular rhythm. sinus. ABDOMEN: Morbidly obese, soft, nontender, nondistended. no guarding. MUSCULOSKELETAL: Pulses 2+. No peripheral edema. Right lower extremity is wrapped in Ronnell bandage with a heel splint in place. NEUROLOGICAL: Cranial nerves II through XII grossly intact. Strength is equal symmetric. Normal sensation. Follows commands. No focal deficits. A/P Assessment and Plan Assessment: 47yM with JUDY, OHS, morbid obesity and now POD 1 s/p right achilles tendon repair. Significant post-operative pain, and opioids are likely worsening his respiratory function. will ask anesthesia for right popliteal nerve block. will start multimodal pain management in an attempt to minimize opiate pain meds. will also start sildenafil to see if it will help with presumed rv dysfunction from pulmonary hypertension. long-term will need to be worked up for RV dysfunction. highly complex with multiple acute medical problems. Neuro/Psych: Depression/anxiety Recent opioid use Peripheral neuropathy Acute uncontrolled severe pain secondary to achilles tendon repair alprazolam 0.5 mg at night as needed paroxetine 20 mg p.o. daily for depression gabapentin 300mg tid start tizanidine 2mg po q12h hydrocodone/acetaminophen 10/325 one tablet every 4 hours as needed pain. continue morphine flight kitchen manager, but minimize usage as much as possible. 6/4 right popliteal nerve block- should last at least 18-24h Respiratory: Obesity hypoventilation syndrome Recent history of pulmonary embolism/right upper lobe 2017 Acute COPD exacerbation Acute hypoxic and hypercarbic respiratory failure requiring noninvasive positive pressure ventilation BiPAP 18/8 at 50% wean the nasal cannula as needed. BiPAP at night Wean FiO2 for goal SPO2 greater than 90% Currently methylprednisolone succinate 40 mg IV 2 times daily Albuterol/ipratropium aerosols every 4 hours with albuterol aerosols every 2 hours as needed dyspnea Head of bed elevated 30 VQ scan admission low probability for pulmonary embolism Dr. Sawyer pulmonary following. Okay for surgery Cardiovascular: Recent history of pulmonary embolism Essential hypertension Hyperlipidemia -triglycerides predominant with elevated LDH Coronary disease history of stent History of atrial fibrillation restart heparin drip. weight is high and concern with renal dysfunction that dosing lovenox may be difficult. Followed by cardiology [facility]. 2D echocardiogram 06/08 reveals EF 50%. LVH. LVD. Currently on carvedilol 37.5 twice daily, hydralazine 100 3 times daily, amlodipine 5 mg twice daily As needed Nitropaste for hypertension Aspirin 81 mg daily and clopidogrel 75 twice daily Atorvastatin 40 mg at night for dyslipidemia Furosemide 40 mg daily Renal: Acute kidney injury -baseline creatinine 1.2 Unclear etiology, likely multifactorial Trend on daily BMP -- Strict I/Os Avoid nephrotoxic drugs Rare urine eosinophils and prerenal indices urine electrolytes Unable to renal ultrasound due to body habitus FEN/GI: Elevated BMI Advance diet as tolerated ICU electrolyte protocol Weight loss encouraged Famotidine for GI prophylaxis Docusate sodium/senna 1 tablet twice daily for bowel regimen Heme/ID: Normocytic hypochromic anemia Iron studies revealed low FE with normal TIBC. Normal ferritin. Hemoccult pending restart heparin drip Trend CBC. Currently stable Anticoagulation d/c azithromycin today. completed full course. Blood cultures 2, sputum ordered as well Endocrine: Diabetes mellitus, type II Gout Holding glimepiride 2 milligrams twice daily and metformin 750 mg p.o. twice daily Allopurinol 100 mg p.o. daily for gout -- SSI Novulin R high regimen Accu-Cheks before meals at [id number] Insulin detemir 15 units subcu twice daily TSH is 1.28. MSK Osteoporosis/arthritis Right ankle/Achilles tear PT evaluate and treat X-rays reveal a line in a fiberglass cast. MRI right ankle revealed rupture of the Achilles tendon. plans for OR today 07/24 Podiatry following Prophylaxis: GI Prophylaxis Famotidine DVT Prophylaxis -- SCDs Heparin infusion Lines: Peripheral IVs Van Hale MD Jul 25, 2017 07:28
[2017-07-25] MEDS ORDERED: LIDOCAINE 1%/EPINEPHrine 1:100,000 SOLN 30 ML VIAL ONE (07:51)
[2017-07-25] MEDS ORDERED: LIDOCAINE HCL 1% 50 ML VIAL ONE (07:53)
[2017-07-25] MEDS ORDERED: MIDAZOLAM HCL 5 MG/ML VIAL (1 ML) ONE (07:54)
[2017-07-25] MEDS ORDERED: PILL SPLITTER OTHER PRN (08:15)
[2017-07-25] MEDS: methylPREDNISolone SOD SUCC 40 MG/1 ML VIAL IV PUSH SCH ×2 (09:13→21:37)
[2017-07-25] MEDS: DOCUSATE SODIUM 50 MG/SENNA 8.6 MG TAB PO SCH ×3 (09:15→21:38)
[2017-07-25] MEDS: CLOPIDOGREL 75 MG TAB PO SCH (09:16)
[2017-07-25] MEDS: FAMOTIDINE 20 MG TAB PO SCH (09:16)
[2017-07-25] MEDS: ALLOPURINOL 100 MG TAB PO SCH (09:16)
[2017-07-25] MEDS: ASPIRIN EC 81 MG TABEC PO SCH (09:16)
[2017-07-25] MEDS: hydrALAZINE HCL 100 MG TAB PO SCH ×3 (09:16→17:35)
[2017-07-25] MEDS: PARoxetine HCL 20 MG TAB PO SCH (09:16)
[2017-07-25] MEDS: amLODIPine BESYLATE 5 MG TAB PO SCH ×2 (09:16→21:38)
[2017-07-25] MEDS: CARVEDILOL 12.5 MG TAB PO SCH ×2 (09:17→21:37)
[2017-07-25] MEDS: INSULIN DETEMIR 100 UNITS/ML VIAL SQ SCH ×2 (09:17→21:39)
[2017-07-25] MEDS: SILDENAFIL CITRATE 20 MG TAB PO SCH ×2 (10:17→17:35)
[2017-07-25] MEDS: FUROSEMIDE 40 MG TAB PO SCH (10:23)
[2017-07-25] MEDS ORDERED: HALOPERIDOL LACTATE 5 MG/ML AMP IV PUSH ONE (11:30)
--- NOTE | 2017-07-25 18:00 | HHI.PR ---
Subjective Remarks 47 YO Obese male with Br Asthma, HTN,DM,CAD with achilles tendon rupture Breathing better PFT restrictive lung disease Good responce to Bronchodilator Had Achilles tendon repair Uses CPAp, feels better Objective Vital Signs Vital Signs Date Time Temp Pulse Resp B/P (MAP) Pulse Ox O2 Delivery O2 Flow Rate FiO2 07/25/17 14:00 83 07/25/17 13:05 96 35 07/25/17 12:00 98.2 88 25 123/58 (79) 99 07/25/17 12:00 88 07/25/17 10:21 30 07/25/17 10:00 78 07/25/17 08:37 96 Nasal Cannula 4.00 07/25/17 08:00 98.2 83 23 137/71 (93) 97 07/25/17 08:00 77 07/25/17 08:00 Nasal Cannula 4.00 97 07/25/17 06:00 78 07/25/17 04:00 75 07/25/17 04:00 98.0 73 20 152/80 (104) 100 07/25/17 03:20 20 07/25/17 02:00 89 07/25/17 00:49 100 35 07/25/17 00:00 98.1 80 20 145/72 (96) 97 07/25/17 00:00 80 07/24/17 22:00 93 07/24/17 20:10 95 Nasal Cannula 2.00 07/24/17 20:00 98.0 73 22 161/83 (109) 93 07/24/17 20:00 83 07/24/17 19:00 Nasal Cannula 4.00 92 07/24/17 18:14 20 07/24/17 18:00 87 I/O 07/24/17 07/24/17 07/24/17 07/25/17 07/25/17 07/25/17 07:00 15:00 23:00 07:00 15:00 23:00 Intake Total 970 ml 900 ml 790 ml 1050 ml Output Total 1800 ml 20 ml 1400 ml 1100 ml Balance -830 ml 880 ml -610 ml -50 ml Intake Oral 720 ml 660 ml 800 ml IV Total 250 ml 130 ml 250 ml Other 900 ml Output Urine Total 1800 ml 1400 ml 1100 ml Estimated Blood Loss 20 ml # Voids 3 1 # Bowel Movements 1 0 Result Diagram: 07/25/1730307/25/17303 Objective Remarks GENERAL: Obese WM, NAD SKIN: Warm and dry. HEAD: Normocephalic. EYES: No scleral icterus. No injection or drainage. NECK: Supple, trachea midline. No JVD or lymphadenopathy. CARDIOVASCULAR: Regular rate and rhythm without murmurs, gallops, or rubs. RESPIRATORY: Breath sounds equal bilaterally. No accessory muscle use. GASTROINTESTINAL: Abdomen soft, non-tender, nondistended. MUSCULOSKELETAL: No cyanosis, or edema. BACK: Nontender without obvious deformity. No CVA tenderness. A/P Assessment and Plan IMPRESSION: 1. Hypercapnic respiratory insufficiency, likely from his underlying sleep apnea. 2. History of asthma. 3. Diabetes mellitus. 4. Hypertension. 5. Coronary artery disease, status post stent placement 6. History of pulmonary embolism. He is off anticoagulation. 7. Restrictive lung disease PLAN; Aerosol nebs Cont Solumedrol 02 to keep sat 88-92 % CPAP at night and prn pain controll SARTHAK pt and his at BS Luis Armando Sawyer MD Jul 25, 2017 18:00
[2017-07-25] MEDS: QUEtiapine FUMARATE 25 MG TAB PO SCH ×2 (21:00→21:37)
[2017-07-25] MEDS: ATORVASTATIN 40 MG TAB PO SCH (21:38)
--- NOTE | 2017-07-25 22:42 | HHI.PR ---
Subjective Remarks Patient seen bedside with family present. States his father in law just about 7 minutes ago. Denies pain at this time. States he only uses the pump when necessary. Relates pain control when using pump. Objective Vital Signs Date Time Temp Pulse Resp B/P (MAP) Pulse Ox O2 Delivery O2 Flow Rate FiO2 07/25/17 22:33 24 07/25/17 19:45 22 07/25/17 19:40 18 07/25/17 18:00 92 07/25/17 16:00 98.2 96 15 141/79 (99) 100 07/25/17 16:00 96 07/25/17 14:00 83 07/25/17 13:05 96 35 07/25/17 12:00 98.2 88 25 123/58 (79) 99 07/25/17 12:00 88 07/25/17 10:21 30 07/25/17 10:00 78 07/25/17 08:37 96 Nasal Cannula 4.00 07/25/17 08:00 98.2 83 23 137/71 (93) 97 07/25/17 08:00 77 07/25/17 08:00 Nasal Cannula 4.00 97 07/25/17 06:00 78 07/25/17 04:00 75 07/25/17 04:00 98.0 73 20 152/80 (104) 100 07/25/17 03:20 20 07/25/17 02:00 89 07/25/17 00:49 100 35 07/25/17 00:00 98.1 80 20 145/72 (96) 97 07/25/17 00:00 80 I/O 07/24/17 07/24/17 07/24/17 07/25/17 07/25/17 07/25/17 07:00 15:00 23:00 07:00 15:00 23:00 Intake Total 970 ml 900 ml 790 ml 1050 ml 1510 ml Output Total 1800 ml 20 ml 1400 ml 1100 ml 2200 ml Balance -830 ml 880 ml -610 ml -50 ml -690 ml Intake Oral 720 ml 660 ml 800 ml 1200 ml IV Total 250 ml 130 ml 250 ml 310 ml Other 900 ml Output Urine Total 1800 ml 1400 ml 1100 ml 2200 ml Estimated Blood Loss 20 ml # Voids 3 1 3 # Bowel Movements 1 0 0 Result Diagram: 07/25/17 0304 07/25/17 0304 Imaging Last Impressions Ankle X-Ray 07/24/17 1256 Signed Impressions: CONCLUSION: 1. An apparent focal cortical break of the calcaneus just posterior to the sub talar joint. This appears new. 2. Splint present. 3. Multifocal ankle and hindfoot osteoarthritis. 4. Accessory navicular and large os peroneum. Chest X-Ray 07/23/17 0600 Signed Impressions: CONCLUSION: Cardiomegaly. Ankle MRI 07/21/17 0000 Signed Impressions: CONCLUSION: 1. Severe tendinopathy of the distal Achilles tendon with full-thickness tear. Tiny intact strand of tendon present medially. There is also partial avulsion of the Achilles tendon at the insertion site on the calcaneus. 2. Severe marrow edema posterior calcaneus especially the lateral aspect, prob ably a small impaction fracture. 3. Mild contusion posterior talus. 4. Small ankle joint effusion. Extensive subcutaneous edema. Lung Scan-V Nuclear Medicine 07/19/17 1528 Signed Impressions: CONCLUSION: 1. Low probability for pulmonary embolism. Compensated cardiomegaly. If high c linical suspicion CT angiogram would be of benefit. Objective Remarks Posterior splint in place to right lower extremity. 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 Medications and IVs Current Medications Medications (Trade) Dose Ordered Sig/Nara Route Start Time Stop Time Status Last Admin Heparin Sodium/ Dextrose 250 ml @ 18 mls/hr TITRATE PRN IV 07/19/17 18:30 07/23/17 05:13 Potassium Chloride 100 ml @ 50 mls/hr Q2H PRN IV 07/19/17 21:30 Potassium Chloride 100 ml @ 50 mls/hr Q2H PRN IV 07/19/17 21:30 (K-Lyte Cl Eff) 50 meq UNSCH PRN PO 07/19/17 21:30 Potassium Chloride 100 ml @ 25 mls/hr UNSCH PRN IV 07/19/17 21:30 Potassium Chloride 100 ml @ 50 mls/hr Q2H PRN IV 07/19/17 21:30 Magnesium Sulfate 4 gm/Sodium Chloride 100 ml @ 50 mls/hr UNSCH PRN IV 07/19/17 21:30 (Mag-Ox) 800 mg UNSCH PRN PO 07/19/17 21:30 Magnesium Sulfate 2 gm/Sodium Chloride 100 ml @ 50 mls/hr UNSCH PRN IV 07/19/17 21:30 (K-Phos) 2,000 mg Q4H PRN PO 07/19/17 21:30 Sodium Phosphate 30 mmol/Sodium Chloride 250 ml @ 42 mls/hr UNSCH PRN IV 07/19/17 21:30 (K-Phos) 2,000 mg UNSCH PRN PO/TUBE 07/19/17 21:30 Potassium Phosphate 30 mmol/ Sodium Chloride 260 ml @ 42 mls/hr UNSCH PRN IV 07/19/17 21:30 ([facility] Nursing Information) 1 Q361D XX 07/19/17 21:45 07/19/17 23:46 (Chlorhexidine 2% Cloth) Taper DAILY@04 TOP 07/20/17 04:00 07/16/18 03:59 07/25/17 04:00 (Chlorhexidine 2% Cloth) 3 pack UNSCH PRN TOP 07/19/17 21:45 (Ely-Colace) 1 tab BID PO 07/20/17 09:00 07/25/17 09:15 (Milk Of Magnesia Liq) 30 ml Q12H PRN PO 07/19/17 21:45 (Senokot) 17.2 mg Q12H PRN PO 07/19/17 21:45 07/24/17 12:16 (Dulcolax Supp) 10 mg DAILY PRN RECTAL 07/19/17 21:45 (Lactulose Liq) 30 ml DAILY PRN PO 07/19/17 21:45 (Zyloprim) 100 mg DAILY PO 07/20/17 09:00 07/25/17 09:16 (Norvasc) 5 mg BID PO 07/20/17 09:00 07/25/17 21:38 (Ecotrin Ec) 81 mg DAILY PO 07/20/17 09:00 07/25/17 09:16 (Lipitor) 40 mg HS PO 07/20/17 21:00 07/25/17 21:38 (Plavix) 75 mg DAILY PO 07/20/17 09:00 07/25/17 09:16 (Paxil) 20 mg DAILY PO 07/20/17 09:00 07/25/17 09:16 (Albuterol Neb) 2.5 mg Q2HR NEB PRN NEB 07/20/17 07:30 (Pepcid) 20 mg DAILY PO 07/20/17 09:00 07/25/17 09:16 ([place] 5-325 Mg) 1 tab Q4H PRN PO 07/20/17 14:00 07/22/17 04:58 (D50w (Vial) Inj) 25 ml UNSCH PRN IV PUSH 07/21/17 04:00 (NovoLIN R SUPPLEMENTAL SCALE) 1 ACHS03 SLIDE SCALE SQ 07/21/17 08:00 07/25/17 21:39 (Tylenol) 650 mg Q6HR PRN PO 07/21/17 08:00 (Apresoline) 100 mg TID PO 07/22/17 09:00 07/25/17 17:35 (SoluMEDROL INJ) 40 mg BID IV PUSH 07/22/17 21:00 07/25/17 21:37 ([place] 10-325 Mg) 1 tab Q4H PRN PO 07/22/17 07:00 07/24/17 14:08 (Xanax) 0.5 mg HS PRN PO 07/22/17 07:00 07/24/17 22:51 (Lasix) 40 mg DAILY PO 07/22/17 09:00 07/25/17 10:23 (Nitroglycerin 2% Oint) 2 inch Q6HR PRN TOPICAL 07/22/17 07:15 07/24/17 13:24 (Isordil) 10 mg Q8H PO 07/22/17 18:00 07/25/17 17:36 (Duoneb Neb) 1 ampule Q4HR NEB NEB 07/24/17 08:00 07/25/17 15:45 (Trandate Inj) 10 mg Q1HR PRN IV PUSH 07/24/17 13:45 (Coreg) 37.5 mg BID PO 07/24/17 21:00 07/25/17 21:37 (Morphine Inj) 4 mg Q3H PRN IV 07/24/17 14:30 07/24/17 15:00 (Narcan Inj) 0.4 mg UNSCH PRN IV PUSH 07/24/17 14:30 (Morphine 1 Mg/ ml VIDEO CONTROL OPERATOR) 30 mg UNSCH IV 07/24/17 14:30 07/25/17 19:40 VIDEO CONTROL OPERATOR Dosage Infused (Pha) 1 Q8HR .XX 07/24/17 14:30 07/25/17 22:33 (Neurontin) 300 mg Q8H PO 07/24/17 17:00 07/26/17 09:01 07/25/17 17:35 (Revatio) 10 mg Q8H PO 07/25/17 09:00 07/25/17 17:35 (SEROquel) 50 mg HS PO 07/25/17 21:00 (Zanaflex) 2 mg Q12HR PO 07/25/17 09:00 07/25/17 21:39 (Pill Splitter) 1 ea UNSCH PRN OTHER 07/25/17 08:15 (Levemir Inj) 5 units BID SQ 07/25/17 21:00 07/25/17 21:39 Assessment and Plan Assessment and Plan 47 year old male s/p 1. Open repair of right achilles tendon rupture 2. Flexor hallucis longus tendon transfer right 3. Gastrocnemius recession right Patient examined and evaluated with all questions answered Patient OK to DC per podiatry Patient to follow up with Dr. Murillo Recommend rehab if patient unable to maintain non weight bearing status Do not change dressing, dressing to be changed at first post op visit Anticoagulation post op Josie Hull DPM Jul 25, 2017 22:42
[2017-07-26] VITALS (16 sets, daily range): BP systolic 150–165; BP diastolic 74–90; PULSE 78–94; RESP 17–20; TEMP 97.8–98.9; O2SAT 94–99
[2017-07-26] MEDS: SILDENAFIL CITRATE 20 MG TAB PO SCH ×3 (00:45→17:00)
[2017-07-26] MEDS: ALPRAZolam 0.5 MG TAB PO PRN ×2 (00:45→23:31)
[2017-07-26] MEDS: ISOSORBIDE DINITRATE 10 MG TAB PO SCH ×3 (00:45→18:00)
[2017-07-26] MEDS: GABAPENTIN 300 MG CAP PO SCH ×3 (00:45→21:38)
[2017-07-26] MEDS: MORPHINE SULFATE 30 MG/30 ML PCA IV SCH ×2 (01:50→09:38)
[2017-07-26] MEDS: INSULIN NovoLIN REGULAR SUPPLEMENTAL SCALE SQ SCH ×5 (02:39→21:39)
[2017-07-26] MEDS: RESP: ALBUTEROL 2.5 MG/IPRATROPIUM 0.5 MG NEB (SCH) NEB ×6 (03:28→23:39)
[2017-07-26] MEDS: CHLORHEXIDINE GLUCONATE 2 % 1 PACK (2 CLOTHS) TOP SCH (03:36)
[2017-07-26 03:45] LABS: HEMATOCRIT 30.1 % (39.0-51.0); HEMOGLOBIN 9.7 GM/DL (13.0-17.0); MEAN CELL VOLUME 81.4 FL (80.0-100.0); MEAN CORPUSCULAR HEMOGLOBIN 26.2 PG (27.0-34.0); MEAN CORPUSCULAR HGB CONC 32.2 % (32.0-36.0); PLATELET COUNT 289 TH/MM3 (150-450); RED CELL DISTRIBUTION WIDTH 14.9 % (11.6-17.2); WHITE BLOOD COUNT 10.2 TH/MM3 (4.0-11.0)
[2017-07-26 04:11] LABS: CALCIUM 8.3 MG/DL (8.5-10.1); CREATININE 1.52 MG/DL (0.60-1.30)
[2017-07-26] MEDS: PCA - TOTAL MG MORPHINE DELIVERED PER SHIFT SCH ×5 (06:26→21:08)
[2017-07-26] MEDS: FAMOTIDINE 20 MG TAB PO SCH (08:25)
[2017-07-26] MEDS: CLOPIDOGREL 75 MG TAB PO SCH (08:25)
[2017-07-26] MEDS: ALLOPURINOL 100 MG TAB PO SCH (08:25)
[2017-07-26] MEDS: FUROSEMIDE 40 MG TAB PO SCH (08:25)
[2017-07-26] MEDS: CARVEDILOL 12.5 MG TAB PO SCH ×2 (08:26→21:37)
[2017-07-26] MEDS: PARoxetine HCL 20 MG TAB PO SCH (08:26)
[2017-07-26] MEDS: ASPIRIN EC 81 MG TABEC PO SCH (08:26)
[2017-07-26] MEDS: methylPREDNISolone SOD SUCC 40 MG/1 ML VIAL IV PUSH SCH ×2 (08:26→21:38)
[2017-07-26] MEDS: amLODIPine BESYLATE 5 MG TAB PO SCH ×2 (08:26→21:38)
[2017-07-26] MEDS: hydrALAZINE HCL 100 MG TAB PO SCH ×3 (08:26→18:00)
[2017-07-26] MEDS: INSULIN DETEMIR 100 UNITS/ML VIAL SQ SCH ×2 (08:27→21:38)
[2017-07-26] MEDS: DOCUSATE SODIUM 50 MG/SENNA 8.6 MG TAB PO SCH ×2 (08:27→20:30)
--- NOTE | 2017-07-26 09:01 | RSPPFT ---
DATE OF PROCEDURE: 07/23/17 COMMENTS: Spirometry shows FVC of 2.8 at 52% of predicted, FEV1 of 2.1 at 49%, FEV1/FVC ratio is decreased. Flow is decreased at FEF 25, FEF 50, FEF 75 and FEF 25-75. There is a good response after bronchodilator treatment. Flow volume loop indicates an obstructive pattern. IMPRESSION: 1. Findings are suggestive of obstructive lung disease. 2. Additional restrictive lung disease is not ruled out from this study. 3. Good response after bronchodilator treatment.
[2017-07-26] MEDS: MORPHINE SULFATE 4 MG/ML INJ IV PRN ×3 (09:49→23:31)
[2017-07-26] MEDS: ACETAMINOPHEN/HYDROcodone 325 MG/10 MG TAB PO PRN ×2 (12:00→21:38)
[2017-07-26] MEDS ORDERED: NALOXONE HCL 0.4 MG/ML AMP IV PUSH PRN (14:00)
[2017-07-26] MEDS ORDERED: MORPHINE SULFATE 30 MG/30 ML PCA IV SCH (14:00)
--- NOTE | 2017-07-26 14:20 | HHI.CCPN ---
Subjective Remarks/Hospital Course This is a 47-year-old male with a history of morbid obesity and asthma/COPD who presents with new onset worsening shortness of breath and presyncopal type symptoms for the last 1 week. Of note, he was diagnosed with a small subsegmental left lower lobe PE about 8 months ago was on Coumadin up until 6 weeks ago when he had a left heart catheterization with stenting by Dr. 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 Also of note, the patient approximately 3 days ago had sudden onset right ankle pain and swelling and went to be evaluated by hotel recreational facilities manager and was diagnosed with a possible Achilles tendon rupture. He describes the shortness of breath is slowly worsening in the sense that he just cannot catch his breath. It is worse with exertion. He does not have any symptoms that are concerning for orthopnea, paroxysmal nocturnal dyspnea. Denies cough or fever. Denies sputum production. He does endorse cold intolerance and intermittent chills over the last 1 week. His and her father were both recently hospitalized for what she describes as "pneumonia which was not present on chest x-ray but only diagnosed on CAT scan" and she states was accompanied by "Sirs response". He states he has never been worked up or diagnosed with sleep apnea, however his states that he intermittently stops breathing and gasp for air and when he does breathe he has significant snoring with any resting or sleeping. He endorses fatigue, generalized daytime sleepiness. He denies nausea, vomiting, diarrhea, constipation, abdominal pain. The remainder of the review systems is negative. In the emergency department he was found to have a chest x-ray concerning for cardiomegaly with questionable pulmonary vascular congestion. His creatinine is slightly elevated at 1.6, so a VQ scan was ordered which was low probability for PE. He was placed on heparin drip and transferred from the [place] emergency department to the [facility] ICU. In the emergency department he was found to be quite hypoxic and hypercarbic with a primary respiratory acidosis and was placed on BiPAP. 07/20: Currently on BiPAP 18/8 at 50%. Worsening pH overnight. Arousable does follow commands. Plan for MRI of the right lower extremity today. Awake and oriented to person and place and year. 07/21: ABG improved today. BiPAP will be worn at night and as needed. MRI foot to be done today. Potassium high at 6.0. Protocol initiated and will recheck in 3 hours. Hyperglycemia/steroid-induced noted. Started on insulin detemir and high sliding scale insulin. So poorly last night. Pain management with hydrocodone/acetaminophen morphine sulfate 07/22: No acute issues overnight. Currently off his BiPAP. Will adjust pain medication and antianxiety medications per patient's request. See orders. Will consult cardiology for perioperative cardiac risk stratification prior to planned OR on Tuesday. High risk for remaining intubated postoperatively but patient is aware. 07/23: Currently on 1 L nasal cannula. Afebrile. Plan for OR Tuesday. Positive cough nonproductive. SUBJECTIVE: 07/24: Afebrile. Currently resting in bed in no acute distress. Plan for or today. High blood pressure noted. Laboratory stable. 07/25: uncontrolled pain overnight. started morphine inspector chief, but per he obstructs and becomes hypoxic with inspector chief, and was still in 10/10 pain. also remains hypertensive. 07/26: patient found out overnight that his [id number] suddenly at home. very tearful on exam. wore bipap all night overnight. less dyspnea. pain much better controlled after nerve block. now tolerable. overall clinically improving. discussed at length the need for weight loss and the idea that gastric bypass may be a good option for him. also discussed need to continue to wear bipap mask. I offered our palliative care services and electronic maintenance supervisor services to him, his , and his 2 children for grief counseling. Objective Vital Signs Date Time Temp Pulse Resp B/P (MAP) Pulse Ox O2 Delivery O2 Flow Rate FiO2 07/26/17 09:54 20 07/26/17 08:58 99 Nasal Cannula 5.00 07/26/17 06:00 84 07/26/17 04:00 98.2 150/81 (104) 07/26/17 03:28 35 Intake and Output 07/26/17 07/26/17 07/27/17 08:00 16:00 00:00 Intake Total 480 ml Output Total 1100 ml Balance -620 ml Result Diagram: 07/26/17 0248 07/26/17 0248 Imaging Last Impressions Chest X-Ray 07/23/17 0600 Signed Impressions: CONCLUSION: Cardiomegaly. Ankle MRI 07/21/17 0000 Signed Impressions: CONCLUSION: 1. Severe tendinopathy of the distal Achilles tendon with full-thickness tear. Tiny intact strand of tendon present medially. There is also partial avulsion of the Achilles tendon at the insertion site on the calcaneus. 2. Severe marrow edema posterior calcaneus especially the lateral aspect, prob ably a small impaction fracture. 3. Mild contusion posterior talus. 4. Small ankle joint effusion. Extensive subcutaneous edema. Ankle X-Ray 07/20/17 0000 Signed Impressions: CONCLUSION: Alignment in fiberglass. Lung Scan-VQ Nuclear Medicine 07/19/17 1528 Signed Impressions: CONCLUSION: 1. Low probability for pulmonary embolism. Compensated cardiomegaly. If high c linical suspicion CT angiogram would be of benefit. Objective Remarks GENERAL: Morbidly obese male, lying in bed, no acute distress this morning. HEENT: Normocephalic. Atraumatic. Pupils equal, round, reactive, conjugate about 3 mm bilaterally. Mucous membranes are moist NECK: Trachea is midline. Large kelly and large neck circumference prevent accurate assessment of JVD CHEST: Equal chest rise. Diminished. CARDIOVASCULAR: Normal rate, regular rhythm. sinus. ABDOMEN: Morbidly obese, soft, nontender, nondistended. no guarding. MUSCULOSKELETAL: Pulses 2+. No peripheral edema. Right lower extremity is wrapped in Ronnell bandage with a heel splint in place. NEUROLOGICAL: Cranial nerves II through XII grossly intact. Strength is equal symmetric. Normal sensation. Follows commands. No focal deficits. A/P Assessment and Plan Assessment: 47yM with JUDY, OHS, morbid obesity and now POD 2 s/p right achilles tendon repair. Pain has improved significantly with multi-modal approach. continue this approach. increase sildenafil as this appears to have a subjective improvement in his dyspnea and an objective improvement in hypoxia and hypertension. long-term will need to be worked up for RV dysfunction, likely when he is out of his acute exacerbation. have discussed this with cardiology who is aware and will re-evaluate for need of right heart cath or other evaluation in the future. stable for transfer out of ICU. Neuro/Psych: Depression/anxiety Recent opioid use Peripheral neuropathy Acute uncontrolled severe pain secondary to achilles tendon repair alprazolam 0.5 mg at night as needed paroxetine 20 mg p.o. daily for depression gabapentin 300mg tid tizanidine 2mg po q12h hydrocodone/acetaminophen 10/325 one tablet every 4 hours as needed pain. d/c morphine inspector chief. 07/25 right popliteal nerve block Respiratory: Obesity hypoventilation syndrome Recent history of pulmonary embolism/right upper lobe 2017 Acute COPD exacerbation Acute hypoxic and hypercarbic respiratory failure requiring noninvasive positive pressure ventilation BiPAP 08/10 at 35% wean the nasal cannula as needed. BiPAP at night Wean FiO2 for goal SPO2 greater than 90% Currently methylprednisolone succinate 40 mg IV 2 times daily Albuterol/ipratropium aerosols every 4 hours with albuterol aerosols every 2 hours as needed dyspnea Head of bed elevated 30 VQ scan admission low probability for pulmonary embolism Dr. Sawyer pulmonary following. Cardiovascular: Recent history of pulmonary embolism Essential hypertension Hyperlipidemia -triglycerides predominant with elevated LDH Coronary disease history of stent History of atrial fibrillation heparin drip. weight is high and concern with renal dysfunction that dosing lovenox may be difficult. Followed by cardiology [facility] group. 2D echocardiogram 06/08 reveals EF 50%. LVH. LVD. Currently on carvedilol 37.5 twice daily, hydralazine 100 3 times daily, amlodipine 5 mg twice daily As needed Nitropaste for hypertension Aspirin 81 mg daily and clopidogrel 75 twice daily Atorvastatin 40 mg at night for dyslipidemia Furosemide 40 mg daily Renal: Acute kidney injury -baseline creatinine 1.2 Unclear etiology, likely multifactorial Trend on daily BMP -- Strict I/Os Avoid nephrotoxic drugs Rare urine eosinophils and prerenal indices urine electrolytes Unable to renal ultrasound due to body habitus FEN/GI: Elevated BMI Morbid Obesity Advance diet as tolerated ICU electrolyte protocol Weight loss encouraged: discussed with patient surgical options such as gastric bypass would be excellent options for him Famotidine for GI prophylaxis Docusate sodium/senna 1 tablet twice daily for bowel regimen Heme/ID: Normocytic hypochromic anemia Iron studies revealed low FE with normal TIBC. Normal ferritin. Hemoccult pending heparin drip Trend CBC. Currently stable Anticoagulation Endocrine: Diabetes mellitus, type II Gout Holding glimepiride 2 milligrams twice daily and metformin 750 mg p.o. twice daily Allopurinol 100 mg p.o. daily for gout -- SSI Novulin R high regimen Accu-Cheks before meals at [id number] Insulin detemir 15 units subcu twice daily TSH is 1.28. MSK Osteoporosis/arthritis Right ankle/Achilles tear PT evaluate and treat X-rays reveal a line in a fiberglass cast. MRI right ankle revealed rupture of the Achilles tendon. s/p OR on 07/24. Podiatry following Prophylaxis: GI Prophylaxis Famotidine DVT Prophylaxis -- SCDs Heparin infusion Lines: Peripheral IVs dispo: transfer out of ICU. consult hospitalist group. Van Hale MD Jul 26, 2017 14:20
--- NOTE | 2017-07-26 19:14 | HHI.PR ---
Subjective Remarks 47 YO Obese male with Br Asthma, HTN,DM,CAD with achilles tendon rupture Breathing better PFT restrictive lung disease Good responce to Bronchodilator Had Achilles tendon repair Uses CPAP, feels better Up in chair, Eating dinner Objective Vital Signs Vital Signs Date Time Temp Pulse Resp B/P (MAP) Pulse Ox O2 Delivery O2 Flow Rate FiO2 07/26/17 18:00 98.2 80 20 164/90 (114) 94 07/26/17 18:00 84 07/26/17 16:00 80 07/26/17 14:00 78 07/26/17 14:00 20 07/26/17 14:00 20 07/26/17 13:00 20 07/26/17 12:00 80 07/26/17 10:00 78 07/26/17 09:54 20 07/26/17 09:43 20 07/26/17 09:38 20 07/26/17 08:58 99 Nasal Cannula 5.00 07/26/17 08:00 94 07/26/17 08:00 98.2 80 20 164/86 (112) 94 07/26/17 07:15 Nasal Cannula 4.00 96 07/26/17 06:26 16 07/26/17 06:00 84 07/26/17 04:00 80 07/26/17 04:00 98.2 80 20 150/81 (104) 94 07/26/17 03:28 96 35 07/26/17 02:30 96 35 07/26/17 02:00 78 07/26/17 01:50 22 07/26/17 00:00 98.9 94 17 155/74 (101) 98 07/26/17 00:00 94 07/25/17 22:33 24 07/25/17 22:00 100 07/25/17 20:00 98.5 100 26 163/83 (109) 98 07/25/17 20:00 100 07/25/17 19:40 18 I/O 07/25/17 07/25/17 07/25/17 07/26/17 07/26/17 07/26/17 07:00 15:00 23:00 07:00 15:00 23:00 Intake Total 1050 ml 1510 ml 480 ml 480 ml Output Total 1100 ml 2200 ml 1100 ml 2500 ml Balance -50 ml -690 ml -620 ml -2020 ml Intake Oral 800 ml 1200 ml 480 ml 480 ml IV Total 250 ml 310 ml Output Urine Total 1100 ml 2200 ml 1100 ml 2500 ml # Voids 3 # Bowel Movements 0 0 0 0 Result Diagram: 07/26/1724707/26/17247 Objective Remarks GENERAL: Obese WM, NAD SKIN: Warm and dry. HEAD: Normocephalic. EYES: No scleral icterus. No injection or drainage. NECK: Supple, trachea midline. No JVD or lymphadenopathy. CARDIOVASCULAR: Regular rate and rhythm without murmurs, gallops, or rubs. RESPIRATORY: Breath sounds equal bilaterally. No accessory muscle use. GASTROINTESTINAL: Abdomen soft, non-tender, nondistended. MUSCULOSKELETAL: No cyanosis, or edema. BACK: Nontender without obvious deformity. No CVA tenderness. A/P Assessment and Plan IMPRESSION: 1. Hypercapnic respiratory insufficiency, likely from his underlying sleep apnea. 2. History of asthma. 3. Diabetes mellitus. 4. Hypertension. 5. Coronary artery disease, status post stent placement 6. History of pulmonary embolism. He is off anticoagulation. 7. Restrictive lung disease PLAN; Aerosol nebs Cont Solumedrol 02 to keep sat 88-92 % CPAP at night and prn pain controll SARTHAK pt and his at [facility] SARTHAK RN at [facility] Luis Armando Sawyer MD Jul 26, 2017 19:14
[2017-07-26] MEDS: ATORVASTATIN 40 MG TAB PO SCH (21:37)
[2017-07-26] MEDS: QUEtiapine FUMARATE 25 MG TAB PO SCH (21:37)
[2017-07-27] VITALS (14 sets, daily range): BP systolic 144–174; BP diastolic 71–83; PULSE 72–88; RESP 12–23; TEMP 97.8–98.2; O2SAT 92–99
[2017-07-27] MEDS: ISOSORBIDE DINITRATE 10 MG TAB PO SCH ×3 (01:16→17:34)
[2017-07-27] MEDS: SILDENAFIL CITRATE 20 MG TAB PO SCH ×3 (01:16→17:34)
[2017-07-27] MEDS: PCA - TOTAL MG MORPHINE DELIVERED PER SHIFT SCH ×4 (03:35→11:57)
[2017-07-27] MEDS: INSULIN NovoLIN REGULAR SUPPLEMENTAL SCALE SQ SCH ×5 (03:41→21:20)
[2017-07-27] MEDS: MORPHINE SULFATE 4 MG/ML INJ IV PRN ×3 (03:42→11:56)
[2017-07-27 03:45] LABS: HEMATOCRIT 29.2 % (39.0-51.0); HEMOGLOBIN 9.6 GM/DL (13.0-17.0); MEAN CELL VOLUME 81.4 FL (80.0-100.0); MEAN CORPUSCULAR HEMOGLOBIN 26.7 PG (27.0-34.0); MEAN CORPUSCULAR HGB CONC 32.7 % (32.0-36.0); MEAN PLATELET VOLUME 7.2 FL (7.0-11.0); PLATELET COUNT 249 TH/MM3 (150-450); RED BLOOD COUNT 3.58 MIL/MM3 (4.50-5.90); RED CELL DISTRIBUTION WIDTH 14.9 % (11.6-17.2); WHITE BLOOD COUNT 8.9 TH/MM3 (4.0-11.0)
[2017-07-27] MEDS: CHLORHEXIDINE GLUCONATE 2 % 1 PACK (2 CLOTHS) TOP SCH (03:47)
[2017-07-27] MEDS: RESP: ALBUTEROL 2.5 MG/IPRATROPIUM 0.5 MG NEB (SCH) NEB ×5 (04:05→21:47)
[2017-07-27 04:12] LABS: BICARBONATE 30.7 MEQ/L (21.0-32.0); CALCIUM 8.3 MG/DL (8.5-10.1); CREATININE 1.51 MG/DL (0.60-1.30)
[2017-07-27] MEDS: GABAPENTIN 300 MG CAP PO SCH ×3 (05:11→21:18)
[2017-07-27] MEDS: ACETAMINOPHEN/HYDROcodone 325 MG/10 MG TAB PO PRN ×3 (05:11→19:33)
[2017-07-27] MEDS: methylPREDNISolone SOD SUCC 40 MG/1 ML VIAL IV PUSH SCH ×2 (08:39→19:37)
[2017-07-27] MEDS: INSULIN DETEMIR 100 UNITS/ML VIAL SQ SCH ×2 (08:39→21:21)
[2017-07-27] MEDS: FAMOTIDINE 20 MG TAB PO SCH (08:40)
[2017-07-27] MEDS: DOCUSATE SODIUM 50 MG/SENNA 8.6 MG TAB PO SCH ×2 (08:41→19:38)
[2017-07-27] MEDS: CARVEDILOL 12.5 MG TAB PO SCH ×2 (08:41→19:36)
[2017-07-27] MEDS: amLODIPine BESYLATE 5 MG TAB PO SCH ×2 (08:41→19:35)
[2017-07-27] MEDS: ASPIRIN EC 81 MG TABEC PO SCH (08:41)
[2017-07-27] MEDS: FUROSEMIDE 40 MG TAB PO SCH (08:41)
[2017-07-27] MEDS: hydrALAZINE HCL 100 MG TAB PO SCH ×3 (08:41→17:34)
[2017-07-27] MEDS: ALLOPURINOL 100 MG TAB PO SCH (08:41)
[2017-07-27] MEDS: PARoxetine HCL 20 MG TAB PO SCH (08:41)
[2017-07-27] MEDS: CLOPIDOGREL 75 MG TAB PO SCH (08:42)
--- NOTE | 2017-07-27 13:12 | HHI.PR ---
Subjective Remarks This is a 47-year-old male with a history of CAD s/p cardiac catheterization with PCI 06/17/17, left lower lobe PE approximately 8 months ago on Coumadin untill after cardiac catheterization 06/17/17, morbid obesity and asthma/COPD who presents with new onset worsening shortness of breath and presyncopal type symptoms for 1 week prior to admission. Patient admitted to ICU 07/19/17. of note approximately 3 days prior to admission patient had sudden onset right ankle pain and swelling and went to be evaluated by drosophere operator and was diagnosed with a possible Achilles tendon rupture. On admission patient described the shortness of breath as slowly worsening in the sense that he just cannot catch his breath. It is worse with exertion. He does not have any symptoms that are concerning for orthopnea, paroxysmal nocturnal dyspnea. Denies cough or fever. Denies sputum production. He does endorse cold intolerance and intermittent chills over the last 1 week. His and her father were both recently hospitalized for what she describes as "pneumonia which was not present on chest x-ray but only diagnosed on CAT scan. " He states he has never been worked up or diagnosed with sleep apnea, however his states that he intermittently stops breathing and gasp for air and when he does breathe he has significant snoring with any resting or sleeping. He endorses fatigue, generalized daytime sleepiness. He denies nausea, vomiting , diarrhea, constipation, abdominal pain. On admission chest x-ray concerning for cardiomegaly with questionable pulmonary vascular congestion. His creatinine is slightly elevated at 1.6, so a VQ scan was ordered which was low probability for PE. He was transferred from the [facility] emergency department to the [facility] ICU. In the emergency department he was found to be quite hypoxic and hypercarbic with a primary respiratory acidosis and was placed on BiPAP. Patient is s/p right Achilles tendon repair 07/24/17. Patient has been started on sildenafil while in ICU due to concern for right heart strain. Objective Vitals Vital Signs Date Time Temp Pulse Resp B/P (MAP) Pulse Ox O2 Delivery O2 Flow Rate FiO2 07/27/17 12:00 78 07/27/17 12:00 98.1 78 16 146/76 (99) 95 07/27/17 08:47 98 Nasal Cannula 2.00 07/27/17 08:00 98.1 74 14 174/83 (113) 96 07/27/17 08:00 74 07/27/17 07:00 96 Nasal Cannula 4.00 07/27/17 06:11 14 07/27/17 04:07 98 Nasal Cannula 4.00 07/27/17 04:00 97.8 72 14 162/79 (106) 98 07/27/17 04:00 72 07/27/17 03:47 20 07/27/17 01:34 99 BiPAP 07/27/17 01:29 99 35 07/27/17 00:00 98.2 74 12 144/71 (95) 98 07/27/17 00:00 74 07/26/17 23:42 97 Nasal Cannula 4.00 07/26/17 20:10 95 Nasal Cannula 4.00 07/26/17 20:00 97.8 84 18 165/79 (107) 95 07/26/17 20:00 84 07/26/17 19:00 95 Nasal Cannula 4.00 07/26/17 18:00 98.2 80 20 164/90 (114) 94 07/26/17 18:00 84 07/26/17 16:00 80 07/26/17 14:00 78 07/26/17 14:00 20 07/26/17 14:00 20 Result Diagram: 07/27/17 0232 07/27/17 0232 Other Results Laboratory Tests Test 07/25/17 03:04 07/26/17 02:48 07/27/17 02:32 White Blood Count 11.0 TH/MM3 10.2 TH/MM3 8.9 TH/MM3 Red Blood Count 3.78 MIL/MM3 3.70 MIL/MM3 3.58 MIL/MM3 Hemoglobin 9.7 GM/DL 9.7 GM/DL 9.6 GM/DL Hematocrit 30.7 % 30.1 % 29.2 % Mean Corpuscular Volume 81.3 FL 81.4 FL 81.4 FL Mean Corpuscular Hemoglobin 25.7 PG 26.2 PG 26.7 PG Mean Corpuscular Hemoglobin Concent 31.6 % 32.2 % 32.7 % Red Cell Distribution Width 14.4 % 14.9 % 14.9 % Platelet Count 312 TH/MM3 289 TH/MM3 249 TH/MM3 Mean Platelet Volume 6.8 FL 7.0 FL 7.2 FL Neutrophils (%) (Auto) 67.5 % Lymphocytes (%) (Auto) 10.4 % Monocytes (%) (Auto) 22.0 % Eosinophils (%) (Auto) 0.0 % Basophils (%) (Auto) 0.1 % Neutrophils # (Auto) 7.4 TH/MM3 Lymphocytes # (Auto) 1.1 TH/MM3 Monocytes # (Auto) 2.4 TH/MM3 Eosinophils # (Auto) 0.0 TH/MM3 Basophils # (Auto) 0.0 TH/MM3 CBC Comment AUTO DIFF Differential Comment AUTO DIFF CONFIRMED Blood Urea Nitrogen 43 MG/DL 58 MG/DL 71 MG/DL Creatinine 1.51 MG/DL 1.52 MG/DL 1.51 MG/DL Random Glucose 184 MG/DL 267 MG/DL 253 MG/DL Total Protein 6.0 GM/DL Albumin 2.4 GM/DL Calcium Level 8.4 MG/DL 8.3 MG/DL 8.3 MG/DL Phosphorus Level 5.6 MG/DL Magnesium Level 2.1 MG/DL Alkaline Phosphatase 107 U/L Aspartate Amino Transf (AST/SGOT) 7 U/L Alanine Aminotransferase (ALT/SGPT) 17 U/L Total Bilirubin 0.3 MG/DL Sodium Level 136 MEQ/L 132 MEQ/L 129 MEQ/L Potassium Level 5.0 MEQ/L 5.7 MEQ/L 6.0 MEQ/L Chloride Level 96 MEQ/L 92 MEQ/L 92 MEQ/L Carbon Dioxide Level 31.2 MEQ/L 31.0 MEQ/L 30.7 MEQ/L Anion Gap 9 MEQ/L 9 MEQ/L 6 MEQ/L Estimat Glomerular Filtration Rate 50 ML/MIN 50 ML/MIN 50 ML/MIN Imaging Last Impressions Ankle X-Ray 07/24/17 1256 Signed Impressions: CONCLUSION: 1. An apparent focal cortical break of the calcaneus just posterior to the sub talar joint. This appears new. 2. Splint present. 3. Multifocal ankle and hindfoot osteoarthritis. 4. Accessory navicular and large os peroneum. Chest X-Ray 07/23/17 0600 Signed Impressions: CONCLUSION: Cardiomegaly. Ankle MRI 07/21/17 0000 Signed Impressions: CONCLUSION: 1. Severe tendinopathy of the distal Achilles tendon with full-thickness tear. Tiny intact strand of tendon present medially. There is also partial avulsion of the Achilles tendon at the insertion site on the calcaneus. 2. Severe marrow edema posterior calcaneus especially the lateral aspect, prob ably a small impaction fracture. 3. Mild contusion posterior talus. 4. Small ankle joint effusion. Extensive subcutaneous edema. Lung Scan-VQ Nuclear Medicine 07/19/17 8578 Signed Impressions: CONCLUSION: 1. Low probability for pulmonary embolism. Compensated cardiomegaly. If high c linical suspicion CT angiogram would be of benefit. Objective Remarks GENERAL: This is a Morbidly obese 47 year old male patient, in no apparent distress. CARDIOVASCULAR: Regular rate and rhythm RESPIRATORY: diminished, difficult to auscultate due to body habitus GASTROINTESTINAL: Abdomen soft, non-tender, nondistended. Normal active bowel sounds MUSCULOSKELETAL: Right lower extremity is wrapped in Ronnell bandage with a heel splint in place. NEURO: Alert & Oriented x4 to person, place, time, situation. Moves all ext x4 Procedures Open repair of right Achilles tendon rupture with flexor hallucis longus tendon transfer and gastrocnemius recession, right lower extremity on 07/24/[address] Murillo. A/P Problem List: (1) Hypercapnic respiratory failure ICD Codes: J96.92 - Respiratory failure, unspecified with hypercapnia Plan: Hypercapnic respiratory insufficiency, likely from his underlying sleep apnea patient was no ton bipap at home prior to admission COPD exacerbation BiPAP 08/10 at 35% wean the nasal cannula as needed. BiPAP at night Wean FiO2 for goal SPO2 greater than 90% Currently methylprednisolone succinate 40 mg IV 2 times daily Albuterol/ipratropium aerosols every 4 hours with albuterol aerosols every 2 hours as needed dyspnea Head of bed elevated 30 VQ scan admission low probability for pulmonary embolism Dr. Sawyer pulmonary following. Concern for right heart strain Cardiology reconsulted 07/27/17 Patient has been started on sildenafil while in ICU due to concern for right heart strain. 07/27/17 Dr. Cordero discussed with cardiology plan for right heart catheterization tomorrow. 2-D echocardiogram 07/23/17: The left ventricular systolic function is mildly reduced with an estimated ejection fraction in the range of 45- 50%. Mild infero -posterior hypokinesis Mild concentric left ventricular hypertrophy. Normal left ventricular size. The left atrial size is moderately dilated. There is trace tricuspid valve regurgitation. Trivial pulmonary valve regurgitation. RIGHT VENTRICLE Normal right ventricular size and systolic function. (2) COPD exacerbation ICD Codes: J44.1 - Chronic obstructive pulmonary disease with (acute) exacerbation Plan: see above (3) Achilles rupture, right ICD Codes: S86.011A - Strain of right Achilles tendon, initial encounter Plan: Open repair of right Achilles tendon rupture with flexor hallucis longus tendon transfer and gastrocnemius recession, right lower extremity on 07/24/[address] Murillo. Per podiatry: Recommend rehab if patient unable to maintain non weight bearing status Patient cleared for DC per podiatry hydrocodone/acetaminophen 10/325 one tablet every 4 hours as needed pain. d/c morphine freight representative. gabapentin 300mg tid tizanidine 2mg po q12h 07/25 right popliteal nerve block (4) LISS (acute kidney injury) ICD Codes: N17.9 - Acute kidney failure, unspecified Status: Resolved Plan: Unclear etiology, likely multifactorial -- Strict I/Os Avoid nephrotoxic drugs Rare urine eosinophils and prerenal indices urine electrolytes Unable to renal ultrasound due to body habitus 07/27/17 BUN 71, creatinine 1.51 GFR 50 Patient receiving Lasix 40 mg PO daily - will hold IVF challenge ordered recheck BMP in AM (5) DM (diabetes mellitus) ICD Codes: E11.9 - Type 2 diabetes mellitus without complications Status: Chronic Plan: Holding glimepiride 2 milligrams twice daily and metformin 750 mg p.o. twice daily Allopurinol 100 mg p.o. daily for gout -- SSI Novolin R high dose regimen Accu-Cheks before meals at [id number] Insulin detemir 5 units subcu twice daily (6) CAD (coronary artery disease) ICD Codes: I25.10 - Atherosclerotic heart disease of [place] coronary artery without angina pectoris Plan: Patient with recent cardiac catheterization with PCI 06/17/17 Patient had a PE approximately 8 months ago and was on Coumadin for until the cardiac cauterization 06/17/17 After craterization patient's Coumadin was DC'd and he was started on Aspirin and Plavix Continue patient's aspirin 81 mg daily, Plavix 75 mg PO daily, Atorvastatin 40 mg PO QHS and Coreg BID (7) Anxiety and depression ICD Codes: F41.9 - Anxiety disorder, unspecified; F32.9 - Major depressive disorder, single episode, unspecified Plan: Continue home alprazolam 0.5 mg at night as needed Continue home paroxetine 20 mg p.o. daily for depression (8) Morbid obesity ICD Codes: E66.01 - Morbid (severe) obesity due to excess calories Plan: Patient to follow up with PCP for further weight loss and possible referral to bariatric surgery (9) Hyperkalemia ICD Codes: E87.5 - Hyperkalemia Plan: Potassium this AM 6.0 STAT recheck potassium level 5.9 Kayexalate 30 gm x 1 ordered recheck potassium at 1800 recheck BMP in AM Assessment and Plan Patient examined. Assessment and plan formulated with Sally Mathias PA-C. I agree with the above. Problem Qualifiers (1) DM (diabetes mellitus): Qualified Codes: E11.8 - Type 2 diabetes mellitus with unspecified complications; Z79.4 - termite inspector (current) use of insulin Sally Mathias Jul 27, 2017 13:12 Frank Cordero DO Jul 31, 2017 22:53
--- NOTE | 2017-07-27 14:04 | PD.CARD.PN ---
Subjective Subjective Remarks Patient seen and examined. Request from Independent Living Advisor for [facility] to evaluate patient for possible PAH. Appears to have OHS, JUDY, COPD. He was started emperically on sildenafil 20mg q8hrs for PAH, although no suggestion on recent echocardiogram. Appears intravascularly dry (rising BUN, Cr, K+ & Low Na+, Low Cl) on diuretic therapy. Hypoalbuminemia with diffuse edema. He has no complaints but is mildly confused with current pain medications. at bedside is concerned. Objective Medications Current Medications Medications (Trade) Dose Ordered Sig/Nara Route Start Time Stop Time Status Last Admin Heparin Sodium/ Dextrose 250 ml @ 18 mls/hr TITRATE PRN IV 07/19/17 18:30 07/23/17 05:13 Potassium Chloride 100 ml @ 50 mls/hr Q2H PRN IV 07/19/17 21:30 Potassium Chloride 100 ml @ 50 mls/hr Q2H PRN IV 07/19/17 21:30 (K-Lyte Cl Eff) 50 meq UNSCH PRN PO 07/19/17 21:30 Potassium Chloride 100 ml @ 25 mls/hr UNSCH PRN IV 07/19/17 21:30 Potassium Chloride 100 ml @ 50 mls/hr Q2H PRN IV 07/19/17 21:30 Magnesium Sulfate 4 gm/Sodium Chloride 100 ml @ 50 mls/hr UNSCH PRN IV 07/19/17 21:30 (Mag-Ox) 800 mg UNSCH PRN PO 07/19/17 21:30 Magnesium Sulfate 2 gm/Sodium Chloride 100 ml @ 50 mls/hr UNSCH PRN IV 07/19/17 21:30 (K-Phos) 2,000 mg Q4H PRN PO 07/19/17 21:30 Sodium Phosphate 30 mmol/Sodium Chloride 250 ml @ 42 mls/hr UNSCH PRN IV 07/19/17 21:30 (K-Phos) 2,000 mg UNSCH PRN PO/TUBE 07/19/17 21:30 Potassium Phosphate 30 mmol/ Sodium Chloride 260 ml @ 42 mls/hr UNSCH PRN IV 07/19/17 21:30 ([facility] Nursing Information) 1 Q361D XX 07/19/17 21:45 07/19/17 23:46 (Chlorhexidine 2% Cloth) Taper DAILY@04 TOP 07/20/17 04:00 07/16/18 03:59 07/26/17 03:36 (Chlorhexidine 2% Cloth) 3 pack UNSCH PRN TOP 07/19/17 21:45 (Ely-Colace) 1 tab BID PO 07/20/17 09:00 07/27/17 08:41 (Milk Of Magnesia Liq) 30 ml Q12H PRN PO 07/19/17 21:45 (Senokot) 17.2 mg Q12H PRN PO 07/19/17 21:45 07/24/17 12:16 (Dulcolax Supp) 10 mg DAILY PRN RECTAL 07/19/17 21:45 (Lactulose Liq) 30 ml DAILY PRN PO 07/19/17 21:45 (Zyloprim) 100 mg DAILY PO 07/20/17 09:00 07/27/17 08:41 (Norvasc) 5 mg BID PO 07/20/17 09:00 07/27/17 08:41 (Ecotrin Ec) 81 mg DAILY PO 07/20/17 09:00 07/27/17 08:41 (Lipitor) 40 mg HS PO 07/20/17 21:00 07/26/17 21:37 (Plavix) 75 mg DAILY PO 07/20/17 09:00 07/27/17 08:42 (Paxil) 20 mg DAILY PO 07/20/17 09:00 07/27/17 08:41 (Albuterol Neb) 2.5 mg Q2HR NEB PRN NEB 07/20/17 07:30 (Pepcid) 20 mg DAILY PO 07/20/17 09:00 07/27/17 08:40 ([place] 5-325 Mg) 1 tab Q4H PRN PO 07/20/17 14:00 07/22/17 04:58 (D50w (Vial) Inj) 25 ml UNSCH PRN IV PUSH 07/21/17 04:00 (NovoLIN R SUPPLEMENTAL SCALE) 1 ACHS03 SLIDE SCALE SQ 07/21/17 08:00 07/27/17 11:57 (Tylenol) 650 mg Q6HR PRN PO 07/21/17 08:00 (Apresoline) 100 mg TID PO 07/22/17 09:00 07/27/17 11:56 (SoluMEDROL INJ) 40 mg BID IV PUSH 07/22/17 21:00 07/27/17 08:39 ([place] 10-325 Mg) 1 tab Q4H PRN PO 07/22/17 07:00 07/27/17 09:43 (Xanax) 0.5 mg HS PRN PO 07/22/17 07:00 07/26/17 23:31 (Lasix) 40 mg DAILY PO 07/22/17 09:00 Future Hold 07/27/17 08:41 (Nitroglycerin 2% Oint) 2 inch Q6HR PRN TOPICAL 07/22/17 07:15 07/24/17 13:24 (Isordil) 10 mg Q8H PO 07/22/17 18:00 07/27/17 09:43 (Duoneb Neb) 1 ampule Q4HR NEB NEB 07/24/17 08:00 07/27/17 11:59 (Trandate Inj) 10 mg Q1HR PRN IV PUSH 07/24/17 13:45 (Coreg) 37.5 mg BID PO 07/24/17 21:00 07/27/17 08:41 (Narcan Inj) 0.4 mg UNSCH PRN IV PUSH 07/24/17 14:30 JELLY FILTER TENDER Dosage Infused (Pha) 1 Q8HR .XX 07/24/17 14:30 07/26/17 14:00 (SEROquel) 50 mg HS PO 07/25/17 21:00 07/26/17 21:37 (Zanaflex) 2 mg Q12HR PO 07/25/17 09:00 07/27/17 08:40 (Pill Splitter) 1 ea UNSCH PRN OTHER 07/25/17 08:15 (Levemir Inj) 5 units BID SQ 07/25/17 21:00 07/27/17 08:39 (Revatio) 20 mg Q8H PO 07/26/17 09:00 07/27/17 08:40 (Neurontin) 300 mg Q8HR PO 07/26/17 22:00 07/27/17 05:11 (Morphine Inj) 2 mg Q3H PRN IV 07/26/17 14:00 07/27/17 11:56 (Narcan Inj) 0.4 mg UNSCH PRN IV PUSH 07/26/17 14:00 (Morphine 1 Mg/ ml JELLY FILTER TENDER) 30 mg UNSCH IV 07/26/17 14:00 JELLY FILTER TENDER Dosage Infused (Pha) 1 Q8HR .XX 07/26/17 14:00 07/26/17 14:00 Vital Signs / I&O Vital Signs Date Time Temp Pulse Resp B/P (MAP) Pulse Ox O2 Delivery O2 Flow Rate FiO2 07/27/17 12:00 78 07/27/17 12:00 98.1 78 16 146/76 (99) 95 07/27/17 08:47 98 Nasal Cannula 2.00 07/27/17 08:00 98.1 74 14 174/83 (113) 96 07/27/17 08:00 74 07/27/17 07:00 96 Nasal Cannula 4.00 07/27/17 06:11 14 07/27/17 04:07 98 Nasal Cannula 4.00 07/27/17 04:00 97.8 72 14 162/79 (106) 98 07/27/17 04:00 72 07/27/17 03:47 20 07/27/17 01:34 99 BiPAP 07/27/17 01:29 99 35 07/27/17 00:00 98.2 74 12 144/71 (95) 98 07/27/17 00:00 74 07/26/17 23:42 97 Nasal Cannula 4.00 07/26/17 20:10 95 Nasal Cannula 4.00 07/26/17 20:00 97.8 84 18 165/79 (107) 95 07/26/17 20:00 84 07/26/17 19:00 95 Nasal Cannula 4.00 07/26/17 18:00 98.2 80 20 164/90 (114) 94 07/26/17 18:00 84 07/26/17 16:00 80 07/26/17 14:00 78 07/26/17 14:00 20 07/26/17 14:00 20 I/O 07/26/17 07/26/17 07/26/17 07/27/17 07/27/17 07/27/17 07:00 15:00 23:00 07:00 15:00 23:00 Intake Total 480 ml 480 ml 480 ml Output Total 1100 ml 2500 ml 1700 ml Balance -620 ml -2020 ml -1220 ml Intake Oral 480 ml 480 ml 480 ml Output Urine Total 1100 ml 2500 ml 1700 ml # Bowel Movements 0 0 0 Physical Exam Gen: morbidly obese, fatigued and mildly confused but arousable and conversant HEENT: thick neck Chest: CTAB anteriorly with distant bs Abd: soft, nontender Ext: 2+ bl LE/UE edema, RLE bandaged in foot brace Neuro: confused but arousable and directable. Moves all extremities Laboratory Laboratory Tests Test 07/27/17 02:32 White Blood Count 8.9 TH/MM3 Red Blood Count 3.58 MIL/MM3 Hemoglobin 9.6 GM/DL Hematocrit 29.2 % Mean Corpuscular Volume 81.4 FL Mean Corpuscular Hemoglobin 26.7 PG Mean Corpuscular Hemoglobin Concent 32.7 % Red Cell Distribution Width 14.9 % Platelet Count 249 TH/MM3 Mean Platelet Volume 7.2 FL Blood Urea Nitrogen 71 MG/DL Creatinine 1.51 MG/DL Random Glucose 253 MG/DL Calcium Level 8.3 MG/DL Sodium Level 129 MEQ/L Potassium Level 6.0 MEQ/L Chloride Level 92 MEQ/L Carbon Dioxide Level 30.7 MEQ/L Anion Gap 6 MEQ/L Estimat Glomerular Filtration Rate 50 ML/MIN Assessment and Plan Assessment and Plan Assessment: Hypercapnic hypoxemic respirator failure Obesity hypoventilation syndrome JUDY on intermittent BiPAP Carries dx of COPD No evidence of CHF at this time. In fact, appears intravascularly dry by serology. LISS Hyperkalemia Hyponatremia, suspect hypovolemic Super morbid obesity Rec: hold further lasix. IV albumin / IVF challenge Kayexelate for management of hyperkalemia RHC tomorrow, will attempt brachial access vs RIJ, However need treatment of hyperkalemia Arnaldo Bunch DO Jul 27, 2017 14:04
[2017-07-27] MEDS ORDERED: SODIUM POLYSTYRENE SULFONATE SUSP 15 GM/60 ML CUP PO ONE ×2 (14:30→16:00)
[2017-07-27] MEDS: SODIUM CHLOR 0.9% 1000 ML INJ 1,000 ML IV SCH (15:18)
[2017-07-27] MEDS ORDERED: ENOXAPARIN SODIUM 40 MG/0.4 ML SYRINGE SQ ONE (16:00)
--- NOTE | 2017-07-27 18:20 | HHI.PR ---
Subjective Remarks 47 YO Obese male with Br Asthma, HTN,DM,CAD with achilles tendon rupture Breathing better PFT restrictive lung disease Good responce to Bronchodilator Had Achilles tendon repair gets confused intermittentally " I see double, TV was coming on my face" at BS Objective Vital Signs Vital Signs Date Time Temp Pulse Resp B/P (MAP) Pulse Ox O2 Delivery O2 Flow Rate FiO2 07/27/17 18:00 87 07/27/17 16:00 74 07/27/17 16:00 98.1 74 18 150/74 (99) 92 07/27/17 12:00 78 07/27/17 12:00 98.1 78 16 146/76 (99) 95 07/27/17 08:47 98 Nasal Cannula 2.00 07/27/17 08:00 98.1 74 14 174/83 (113) 96 07/27/17 08:00 74 07/27/17 07:00 96 Nasal Cannula 4.00 07/27/17 06:11 14 07/27/17 04:07 98 Nasal Cannula 4.00 07/27/17 04:00 97.8 72 14 162/79 (106) 98 07/27/17 04:00 72 07/27/17 03:47 20 07/27/17 01:34 99 BiPAP 07/27/17 01:29 99 35 07/27/17 00:00 98.2 74 12 144/71 (95) 98 07/27/17 00:00 74 07/26/17 23:42 97 Nasal Cannula 4.00 07/26/17 20:10 95 Nasal Cannula 4.00 07/26/17 20:00 97.8 84 18 165/79 (107) 95 07/26/17 20:00 84 07/26/17 19:00 95 Nasal Cannula 4.00 I/O 07/26/17 07/26/17 07/26/17 07/27/17 07/27/17 07/27/17 07:00 15:00 23:00 07:00 15:00 23:00 Intake Total 480 ml 480 ml 480 ml Output Total 1100 ml 2500 ml 1700 ml 1400 ml Balance -620 ml -2020 ml -1220 ml -1400 ml Intake Oral 480 ml 480 ml 480 ml Output Urine Total 1100 ml 2500 ml 1700 ml 1400 ml # Bowel Movements 0 0 0 0 Result Diagram: 07/27/17 0232 07/27/17 1500 Objective Remarks GENERAL: Obese WM, NAD SKIN: Warm and dry. HEAD: Normocephalic. EYES: No scleral icterus. No injection or drainage. NECK: Supple, trachea midline. No JVD or lymphadenopathy. CARDIOVASCULAR: Regular rate and rhythm without murmurs, gallops, or rubs. RESPIRATORY: Breath sounds equal bilaterally. No accessory muscle use. GASTROINTESTINAL: Abdomen soft, non-tender, nondistended. MUSCULOSKELETAL: No cyanosis, or edema. BACK: Nontender without obvious deformity. No CVA tenderness. A/P Assessment and Plan IMPRESSION: 1. Hypercapnic respiratory insufficiency, likely from his underlying sleep apnea. 2. History of asthma. 3. Diabetes mellitus. 4. Hypertension. 5. Coronary artery disease, status post stent placement 6. History of pulmonary embolism. He is off anticoagulation. 7. Restrictive lung disease PLAN; Aerosol nebs Cont Solumedrol 02 to keep sat 88-92 % CPAP at night and prn pain controll SARTHAK pt and his at BS SARTHAK TR, will check Luis Armando Navarro MD Jul 27, 2017 18:20
[2017-07-27] MEDS: ALBUMIN 25% INJ 50 ML IV SCH (18:28)
[2017-07-27] MEDS: ATORVASTATIN 40 MG TAB PO SCH (19:35)
[2017-07-27] MEDS: QUEtiapine FUMARATE 25 MG TAB PO SCH (21:18)
[2017-07-28] VITALS (14 sets, daily range): BP systolic 136–202; BP diastolic 64–95; PULSE 74–100; RESP 14–27; TEMP 98.1–98.4; O2SAT 94–99
[2017-07-28] MEDS: SILDENAFIL CITRATE 20 MG TAB PO SCH ×3 (00:01→16:31)
[2017-07-28] MEDS: ACETAMINOPHEN/HYDROcodone 325 MG/10 MG TAB PO PRN ×5 (00:01→20:18)
[2017-07-28] MEDS: RESP: ALBUTEROL 2.5 MG/IPRATROPIUM 0.5 MG NEB (SCH) NEB ×2 (00:03→03:50)
[2017-07-28] MEDS: LABETALOL HCL 100 MG/20 ML VIAL IV PUSH PRN ×3 (00:33→16:37)
[2017-07-28] MEDS ORDERED: KETOROLAC TROMETHAMINE 30 MG/ML (IVP) VIAL IV PUSH ONE (01:00)
[2017-07-28] MEDS: ISOSORBIDE DINITRATE 10 MG TAB PO SCH ×3 (01:15→17:37)
[2017-07-28] MEDS: INSULIN NovoLIN REGULAR SUPPLEMENTAL SCALE SQ SCH ×2 (03:00→08:00)
[2017-07-28 03:50] LABS: HEMATOCRIT 29.5 % (39.0-51.0); HEMOGLOBIN 9.4 GM/DL (13.0-17.0); MEAN CELL VOLUME 80.6 FL (80.0-100.0); MEAN CORPUSCULAR HEMOGLOBIN 25.8 PG (27.0-34.0); MEAN PLATELET VOLUME 7.6 FL (7.0-11.0); PLATELET COUNT 313 TH/MM3 (150-450); RED BLOOD COUNT 3.67 MIL/MM3 (4.50-5.90); RED CELL DISTRIBUTION WIDTH 14.8 % (11.6-17.2); WHITE BLOOD COUNT 12.7 TH/MM3 (4.0-11.0)
[2017-07-28] MEDS: CHLORHEXIDINE GLUCONATE 2 % 1 PACK (2 CLOTHS) TOP SCH (04:00)
[2017-07-28 04:36] LABS: BICARBONATE 29.3 MEQ/L (21.0-32.0); CALCIUM 8.5 MG/DL (8.5-10.1); CREATININE 1.59 MG/DL (0.60-1.30)
[2017-07-28 05:08] LABS: PROTHROMBIN TIME - PATIENT 10.3 SEC (9.8-11.6)
[2017-07-28] MEDS: GABAPENTIN 300 MG CAP PO SCH ×3 (06:15→21:41)
[2017-07-28] MEDS: ALBUMIN 25% INJ 50 ML IV SCH ×2 (06:15→17:35)
[2017-07-28] MEDS: SODIUM CHLOR 0.9% 1000 ML INJ 1,000 ML IV SCH ×2 (06:28→16:33)
--- NOTE | 2017-07-28 08:06 | PD.CARD.PN ---
Subjective Subjective Remarks Patient still reports some dyspnea, especially at night. He feels like he is having more leg and scrotal swelling today. No chest pain. Had BM after Kayexalate yesterday. (Lewis Dexter) Objective Medications Current Medications Medications (Trade) Dose Ordered Sig/Nara Route Start Time Stop Time Status Last Admin ([facility]) 1 Q361D XX 07/19/17 21:45 07/19/17 23:46 (Chlorhexidine 2% Cloth) Taper DAILY@04 TOP 07/20/17 04:00 07/16/18 03:59 07/26/17 03:36 (Chlorhexidine 2% Cloth) 3 pack UNSCH PRN TOP 07/19/17 21:45 (Ely-Colace) 1 tab BID PO 07/20/17 09:00 07/27/17 19:38 (Milk Of Magnesia Liq) 30 ml Q12H PRN PO 07/19/17 21:45 (Senokot) 17.2 mg Q12H PRN PO 07/19/17 21:45 07/24/17 12:16 (Dulcolax Supp) 10 mg DAILY PRN RECTAL 07/19/17 21:45 (Lactulose Liq) 30 ml DAILY PRN PO 07/19/17 21:45 (Zyloprim) 100 mg DAILY PO 07/20/17 09:00 07/27/17 08:41 (Norvasc) 5 mg BID PO 07/20/17 09:00 07/27/17 19:35 (Ecotrin Ec) 81 mg DAILY PO 07/20/17 09:00 07/27/17 08:41 (Lipitor) 40 mg HS PO 07/20/17 21:00 07/27/17 19:35 (Plavix) 75 mg DAILY PO 07/20/17 09:00 07/27/17 08:42 (Paxil) 20 mg DAILY PO 07/20/17 09:00 07/27/17 08:41 (Albuterol Neb) 2.5 mg Q2HR NEB PRN NEB 07/20/17 07:30 (Pepcid) 20 mg DAILY PO 07/20/17 09:00 07/27/17 08:40 ([place] 5-325 Mg) 1 tab Q4H PRN PO 07/20/17 14:00 07/22/17 04:58 (D50w (Vial) Inj) 25 ml UNSCH PRN IV PUSH 07/21/17 04:00 (NovoLIN R SUPPLEMENTAL SCALE) 1 ACHS03 SLIDE SCALE SQ 07/21/17 08:00 07/27/17 21:20 (Tylenol) 650 mg Q6HR PRN PO 07/21/17 08:00 (Apresoline) 100 mg TID PO 07/22/17 09:00 07/27/17 17:34 (SoluMEDROL INJ) 40 mg BID IV PUSH 07/22/17 21:00 07/27/17 19:37 ([place] 10-325 Mg) 1 tab Q4H PRN PO 07/22/17 07:00 07/28/17 06:27 (Xanax) 0.5 mg HS PRN PO 07/22/17 07:00 07/28/17 00:00 (Lasix) 40 mg DAILY PO 07/22/17 09:00 Future Hold 07/27/17 08:41 (Nitroglycerin 2% Oint) 2 inch Q6HR PRN TOPICAL 07/22/17 07:15 07/24/17 13:24 (Isordil) 10 mg Q8H PO 07/22/17 18:00 07/28/17 01:15 (Duoneb Neb) 1 ampule Q4HR NEB NEB 07/24/17 08:00 07/28/17 03:50 (Trandate Inj) 10 mg Q1HR PRN IV PUSH 07/24/17 13:45 07/28/17 00:33 (Coreg) 37.5 mg BID PO 07/24/17 21:00 07/27/17 19:36 (Narcan Inj) 0.4 mg UNSCH PRN IV PUSH 07/24/17 14:30 (SEROquel) 50 mg HS PO 07/25/17 21:00 07/27/17 21:18 (Zanaflex) 2 mg Q12HR PO 07/25/17 09:00 07/27/17 19:36 (Pill Splitter) 1 ea UNSCH PRN OTHER 07/25/17 08:15 (Levemir Inj) 5 units BID SQ 07/25/17 21:00 07/27/17 21:21 (Revatio) 20 mg Q8H PO 07/26/17 09:00 07/28/17 00:01 (Neurontin) 300 mg Q8HR PO 07/26/17 22:00 07/28/17 06:15 (Narcan Inj) 0.4 mg UNSCH PRN IV PUSH 07/26/17 14:00 Sodium Chloride 1,000 ml @ 75 mls/hr [id number] IV 07/27/17 15:00 07/28/17 06:28 Albumin Human 50 ml @ 60 mls/hr Q12H IV 07/27/17 18:00 07/28/17 06:15 Vital Signs / I&O Vital Signs Date Time Temp Pulse Resp B/P (MAP) Pulse Ox O2 Delivery O2 Flow Rate FiO2 07/28/17 06:00 88 07/28/17 04:00 75 07/28/17 04:00 98.1 74 22 136/64 (88) 98 07/28/17 02:00 74 07/28/17 01:00 176/79 (111) 07/28/17 00:30 07/28/17 00:00 98.2 80 27 202/95 (130) 97 07/28/17 00:00 80 07/27/17 23:49 97.8 88 23 167/79 (108) 97 07/27/17 22:00 88 07/27/17 21:50 97 Nasal Cannula 2.00 07/27/17 20:00 97 Nasal Cannula 4.00 07/27/17 20:00 88 07/27/17 18:00 87 07/27/17 16:00 74 07/27/17 16:00 98.1 74 18 150/74 (99) 92 07/27/17 12:00 78 07/27/17 12:00 98.1 78 16 146/76 (99) 95 07/27/17 08:47 98 Nasal Cannula 2.00 I/O 07/27/17 07/27/17 07/27/17 07/28/17 07/28/17 07/28/17 07:00 15:00 23:00 07:00 15:00 23:00 Intake Total 480 ml 840 ml Output Total 1700 ml 1400 ml 4200 ml Balance -1220 ml -1400 ml -3360 ml Intake Oral 480 ml 840 ml Output Urine Total 1700 ml 1400 ml 4200 ml # Bowel Movements 0 0 1 Physical Exam GENERAL: Well-developed well-nourished morbidly obese. NECK: No carotid bruits. No JVD. CARDIOVASCULAR: Regular rate and rhythm. No murmur appreciated. RESPIRATORY: Diminished breath sounds in the bases. No crackles. MUSCULOSKELETAL: Right ankle in Ronnell wrap. 1+ lower extremity edema. No scrotal edema noted. NEUROLOGICAL: Awake and alert. Normal speech. Laboratory Laboratory Tests Test 07/27/17 15:00 07/27/17 17:20 07/27/17 17:59 07/28/17 03:01 Potassium Level 5.9 MEQ/L 5.5 MEQ/L 5.2 MEQ/L Blood Gas Puncture Site RT RADIAL Blood Gas Patient Temperature 98.6 Blood Gas HCO3 30 mmol/L Blood Gas Base Excess 4.7 mmol/L Blood Gas Oxygen Saturation 91 % Arterial Blood pH 7.35 Arterial Blood Partial Pressure CO2 56 mmHg Arterial Blood Partial Pressure O2 67 mmHg Arterial Blood Oxygen Content 12.4 Vol % Arterial Blood Carboxyhemoglobin 1.7 % Arterial Blood Methemoglobin 1.0 % Blood Gas Hemoglobin 9.6 G/DL Oxygen Delivery Device NASAL CANNULA Blood Gas Liter Flow 2 L/M White Blood Count 12.7 TH/MM3 Red Blood Count 3.67 MIL/MM3 Hemoglobin 9.4 GM/DL Hematocrit 29.5 % Mean Corpuscular Volume 80.6 FL Mean Corpuscular Hemoglobin 25.8 PG Mean Corpuscular Hemoglobin Concent 32.0 % Red Cell Distribution Width 14.8 % Platelet Count 313 TH/MM3 Mean Platelet Volume 7.6 FL Blood Urea Nitrogen 76 MG/DL Creatinine 1.59 MG/DL Random Glucose 115 MG/DL Calcium Level 8.5 MG/DL Sodium Level 131 MEQ/L Chloride Level 93 MEQ/L Carbon Dioxide Level 29.3 MEQ/L Anion Gap 9 MEQ/L Estimat Glomerular Filtration Rate 47 ML/MIN Test 07/28/17 04:34 Prothrombin Time 10.3 SEC Prothromb Time International Ratio 1.0 RATIO Imaging Last Impressions Ankle X-Ray 07/24/17 1256 Signed Impressions: CONCLUSION: 1. An apparent focal cortical break of the calcaneus just posterior to the sub talar joint. This appears new. 2. Splint present. 3. Multifocal ankle and hindfoot osteoarthritis. 4. Accessory navicular and large os peroneum. Chest X-Ray 07/23/17 0600 Signed Impressions: CONCLUSION: Cardiomegaly. Ankle MRI 07/21/17 0000 Signed Impressions: CONCLUSION: 1. Severe tendinopathy of the distal Achilles tendon with full-thickness tear. Tiny intact strand of tendon present medially. There is also partial avulsion of the Achilles tendon at the insertion site on the calcaneus. 2. Severe marrow edema posterior calcaneus especially the lateral aspect, prob ably a small impaction fracture. 3. Mild contusion posterior talus. 4. Small ankle joint effusion. Extensive subcutaneous edema. Lung Scan-VQ Nuclear Medicine 07/19/17 1528 Signed Impressions: CONCLUSION: 1. Low probability for pulmonary embolism. Compensated cardiomegaly. If high c linical suspicion CT angiogram would be of benefit. (Lewis Dexter) Assessment and Plan Assessment and Plan 47-year-old male with past medical history of CAD status post PCI 06/17/17, diastolic CHF, COPD, HTN, HLD, DM who presented for shortness of breath and somnolence Assessment: Hypercapnic hypoxemic respirator failure Obesity hypoventilation syndrome JUDY on intermittent BiPAP Carries dx of COPD No evidence of CHF at this time. In fact, appears intravascularly dry by serology. LISS Hyperkalemia Hyponatremia, suspect hypovolemic Super morbid obesity Rec: holding further lasix for now. Giving IV albumin / IVF challenge Kayexelate for management of hyperkalemia RHC tentatively this afternoon, will attempt brachial access vs RIJ, However need treatment of hyperkalemia first (Lewis Dexter) Assessment and Plan Agree with above (Arnaldo Hirsch DO) Lewis Dexter Jul 28, 2017 08:06 Arnaldo Hirsch DO Jul 28, 2017 08:20
[2017-07-28] MEDS ORDERED: SODIUM POLYSTYRENE SULFONATE SUSP 15 GM/60 ML CUP PO ONE (08:15)
[2017-07-28] MEDS: CARVEDILOL 12.5 MG TAB PO SCH ×2 (08:47→20:17)
[2017-07-28] MEDS: PARoxetine HCL 20 MG TAB PO SCH (08:48)
[2017-07-28] MEDS: ALLOPURINOL 100 MG TAB PO SCH (08:48)
[2017-07-28] MEDS: amLODIPine BESYLATE 5 MG TAB PO SCH (08:48)
[2017-07-28] MEDS: CLOPIDOGREL 75 MG TAB PO SCH (08:48)
[2017-07-28] MEDS: hydrALAZINE HCL 100 MG TAB PO SCH ×3 (08:48→17:37)
[2017-07-28] MEDS: methylPREDNISolone SOD SUCC 40 MG/1 ML VIAL IV PUSH SCH (08:48)
[2017-07-28] MEDS: DOCUSATE SODIUM 50 MG/SENNA 8.6 MG TAB PO SCH ×2 (08:49→20:17)
[2017-07-28] MEDS: FAMOTIDINE 20 MG TAB PO SCH (08:49)
[2017-07-28] MEDS: ASPIRIN EC 81 MG TABEC PO SCH (08:49)
[2017-07-28] MEDS: RESP: ALBUTEROL 2.5 MG/3 ML NEB (PRN) NEB ×2 (11:20→16:02)
[2017-07-28] MEDS: INSULIN ASPART SUPPLEMENTAL SCALE SQ SCH ×3 (12:00→21:01)
[2017-07-28 13:01] LABS: BICARBONATE 31.7 MEQ/L (21.0-32.0); CALCIUM 8.2 MG/DL (8.5-10.1); CREATININE 1.23 MG/DL (0.60-1.30); MAGNESIUM 2.6 MG/DL (1.5-2.5)
[2017-07-28] MEDS: MIDAZOLAM HCL 2 MG/2 ML VIAL ONE ×2 (14:17→14:18)
[2017-07-28 14:36] LABS: BICARBONATE 31.5 MEQ/L (21.0-32.0); CALCIUM 8.8 MG/DL (8.5-10.1); CREATININE 1.23 MG/DL (0.60-1.30)
[2017-07-28] MEDS ORDERED: CALCIUM GLUCONATE 10% 1 GM/10 ML VIAL SLOW IVP ONE (16:45)
[2017-07-28] MEDS ORDERED: DEXTROSE 50% IN WATER 50 ML VIAL(D50) IV PUSH ONE (16:45)
--- NOTE | 2017-07-28 16:53 | HHI.PR ---
Subjective Remarks No new complaints. Objective Vitals Vital Signs Date Time Temp Pulse Resp B/P (MAP) Pulse Ox O2 Delivery O2 Flow Rate FiO2 07/28/17 16:00 98.2 91 14 174/72 (106) 94 07/28/17 16:00 91 07/28/17 12:00 98.1 85 22 191/85 (120) 94 07/28/17 12:00 85 07/28/17 10:00 84 07/28/17 08:16 99 Nasal Cannula 2.00 07/28/17 08:00 79 07/28/17 08:00 98.2 86 20 171/81 (111) 98 07/28/17 07:00 100 Nasal Cannula 2.00 07/28/17 06:00 88 07/28/17 04:00 75 07/28/17 04:00 98.1 74 22 136/64 (88) 98 07/28/17 02:00 74 07/28/17 01:00 176/79 (111) 07/28/17 00:30 07/28/17 00:00 98.2 80 27 202/95 (130) 97 07/28/17 00:00 80 07/27/17 23:49 97.8 88 23 167/79 (108) 97 07/27/17 22:00 88 07/27/17 21:50 97 Nasal Cannula 2.00 07/27/17 20:00 97 Nasal Cannula 4.00 07/27/17 20:00 88 07/27/17 18:00 87 Result Diagram: 07/28/17 0301 07/28/17 1312 Imaging Last Impressions Ankle X-Ray 07/24/17 1256 Signed Impressions: CONCLUSION: 1. An apparent focal cortical break of the calcaneus just posterior to the sub talar joint. This appears new. 2. Splint present. 3. Multifocal ankle and hindfoot osteoarthritis. 4. Accessory navicular and large os peroneum. Chest X-Ray 07/23/17 0600 Signed Impressions: CONCLUSION: Cardiomegaly. Ankle MRI 07/21/17 0000 Signed Impressions: CONCLUSION: 1. Severe tendinopathy of the distal Achilles tendon with full-thickness tear. Tiny intact strand of tendon present medially. There is also partial avulsion of the Achilles tendon at the insertion site on the calcaneus. 2. Severe marrow edema posterior calcaneus especially the lateral aspect, prob ably a small impaction fracture. 3. Mild contusion posterior talus. 4. Small ankle joint effusion. Extensive subcutaneous edema. Lung Scan-VQ Nuclear Medicine 07/19/17 1528 Signed Impressions: CONCLUSION: 1. Low probability for pulmonary embolism. Compensated cardiomegaly. If high c linical suspicion CT angiogram would be of benefit. Objective Remarks GENERAL: This is a Morbidly obese 47 year old male patient, in no apparent distress. CARDIOVASCULAR: Regular rate and rhythm RESPIRATORY: diminished, difficult to auscultate due to body habitus GASTROINTESTINAL: Abdomen soft, non-tender, nondistended. Normal active bowel sounds MUSCULOSKELETAL: Right lower extremity is wrapped in Ronnell bandage with a heel splint in place. NEURO: Alert & Oriented x4 to person, place, time, situation. Moves all ext x4 Procedures Open repair of right Achilles tendon rupture with flexor hallucis longus tendon transfer and gastrocnemius recession, right lower extremity on 07/24/[address] Murillo. A/P Problem List: (1) Hypercapnic respiratory failure ICD Codes: J96.92 - Respiratory failure, unspecified with hypercapnia Plan: Hypercapnic respiratory insufficiency, likely from his underlying sleep apnea patient was no ton bipap at home prior to admission COPD exacerbation BiPAP 08/10 at 35% wean the nasal cannula as needed. BiPAP at night Wean FiO2 for goal SPO2 greater than 90% Currently methylprednisolone succinate 40 mg IV 2 times daily Albuterol/ipratropium aerosols every 4 hours with albuterol aerosols every 2 hours as needed dyspnea Head of bed elevated 30 VQ scan admission low probability for pulmonary embolism Dr. Sawyer pulmonary following. Concern for right heart strain Cardiology reconsulted 07/27/17 Patient has been started on sildenafil while in ICU due to concern for right heart strain. 07/27/17 Dr. Cordero discussed with cardiology plan for right heart catheterization 2-D echocardiogram 07/23/17: The left ventricular systolic function is mildly reduced with an estimated ejection fraction in the range of 45- 50%. Mild infero -posterior hypokinesis Mild concentric left ventricular hypertrophy. Normal left ventricular size. The left atrial size is moderately dilated. There is trace tricuspid valve regurgitation. Trivial pulmonary valve regurgitation. RIGHT VENTRICLE Normal right ventricular size and systolic function. - Case d/w Cardiology, Dr. Hircsh, (07/27). - RHC completed (07/28) with Dr. Hirsch. Will d/w Dr. Hirsch (2) COPD exacerbation ICD Codes: J44.1 - Chronic obstructive pulmonary disease with (acute) exacerbation Plan: see above (3) Achilles rupture, right ICD Codes: S86.011A - Strain of right Achilles tendon, initial encounter Plan: Open repair of right Achilles tendon rupture with flexor hallucis longus tendon transfer and gastrocnemius recession, right lower extremity on 07/24/[address] Murillo. Per podiatry: Recommend rehab if patient unable to maintain non weight bearing status Patient cleared for DC per podiatry hydrocodone/acetaminophen 10/325 one tablet every 4 hours as needed pain. d/c morphine frit coater. gabapentin 300mg tid tizanidine 2mg po q12h 07/25 right popliteal nerve block (4) LISS (acute kidney injury) ICD Codes: N17.9 - Acute kidney failure, unspecified Status: Resolved Plan: Unclear etiology, likely multifactorial -- Strict I/Os Avoid nephrotoxic drugs Rare urine eosinophils and prerenal indices urine electrolytes Unable to renal ultrasound due to body habitus 07/27/17 BUN 71, creatinine 1.51 GFR 50 Patient receiving Lasix 40 mg PO daily - will hold IVF challenge ordered with IV albumin recheck BMP in AM (5) DM (diabetes mellitus) ICD Codes: E11.9 - Type 2 diabetes mellitus without complications Status: Chronic Plan: Holding glimepiride 2 milligrams twice daily and metformin 750 mg p.o. twice daily Allopurinol 100 mg p.o. daily for gout -- SSI Novolin R high dose regimen Accu-Cheks before meals at [id number] Insulin detemir 5 units subcu twice daily (6) CAD (coronary artery disease) ICD Codes: I25.10 - Atherosclerotic heart disease of [place] coronary artery without angina pectoris Plan: Patient with recent cardiac catheterization with PCI 06/17/17 Patient had a PE approximately 8 months ago and was on Coumadin for until the cardiac cauterization 06/17/17 After craterization patient's Coumadin was DC'd and he was started on Aspirin and Plavix Continue patient's aspirin 81 mg daily, Plavix 75 mg PO daily, Atorvastatin 40 mg PO QHS and Coreg BID (7) Anxiety and depression ICD Codes: F41.9 - Anxiety disorder, unspecified; F32.9 - Major depressive disorder, single episode, unspecified Plan: Continue home alprazolam 0.5 mg at night as needed Continue home paroxetine 20 mg p.o. daily for depression (8) Morbid obesity ICD Codes: E66.01 - Morbid (severe) obesity due to excess calories Plan: Patient to follow up with PCP for further weight loss and possible referral to bariatric surgery (9) Hyperkalemia ICD Codes: E87.5 - Hyperkalemia Plan: - Pt still with hyperkalemia despite multiple doses of kayexalate - K 6.0, 5.9, 5.2 (07/27) - K 5.2, 5.2, 5.3 (07/28) - calcium gluconate// insulin with D50 - repeat BMP in AM - r/o hypoaldosteronism - obtain ACTH, serum cortisol, renin, serum aldosterone. - These are send out labs. I do NOT expect the results prior to August 01 (10) Hypertension ICD Codes: I10 - Essential (primary) hypertension Status: Chronic Plan: - hydralazine 100mg TID - norvasc 5mg daily --> changed to procardia xl 60mg BID - coreg 37.5mg BID - isosorbide 10mg q8h - labetalol prn - pain, narcotic dependency, and anxiety may be contributing - trial of toradol x 24 hours - would prefer to minimize narcotics/benzodiazepines d/t JUDY and respiratory suppression Problem Qualifiers (1) DM (diabetes mellitus): Qualified Codes: E11.8 - Type 2 diabetes mellitus with unspecified complications; Z79.4 - [employer] (current) use of insulin (2) Hypertension: Qualified Codes: I10 - Essential (primary) hypertension Frank Cordero DO Jul 28, 2017 16:52
[2017-07-28] MEDS ORDERED: INSULIN HUMAN REGULAR 1,000 UNITS/10 ML VIAL IV PUSH ONE (17:00)
--- NOTE | 2017-07-28 17:32 | PD.PSY.CON ---
Provisional Diagnosis Admission Date July 19, 2017 at 18:55 [place] I. Adjustment disorder with depressed mood and anxiety, history of anxiety, poor impulse control disorder History of Present Illness Service Psychiatry Consult Requested By Medicine Reason for Consult Anxiety and depression Primary Care Physician Ania Gannon MD HPI The patient is a 47-year-old man, domiciled inside [facility] with his and 2 kids, employed, with psychiatric history of anxiety, poor impulse control disorder, no prepsychotic hospitalizations, no previous suicide attempts , he is on Paxil 20 mg prescribed by PCP, with a history of morbid obesity and asthma/COPD who present initially with onset worsening shortness of breath and presyncopal type symptoms for 1 week. Admitted with hypercapnic respiratory failure. COPD exacerbation. Consulted to psychiatry due to symptoms of depression and anxiety. EMR reviewed. Collateral information from [facility] Gale obtained. The patient on evaluation is superficially cooperative. He seems to be a little bit confused, but he is able to say that he feels better. Reports moments of anxiety, insomnia and night, depression related with the length of hospitalization. He also reports that his father-in- law a week ago and he has no be able to cope very well with it. He denies hopelessness, denies helplessness, denies anhedonia, he denies suicidal enemas ideation, he denies visual and auditory hallucinations. Denies the use the drugs and alcohol Past Family Social History Coded Allergies: codeine (Verified Allergy, Severe, Itching, 07/19/17) tramadol (Verified Allergy, Unknown, 07/19/17) clonidine (Unverified Adverse Reaction, Severe, ARNDT, dry mouth, "felt drunk ", 07/19/17) lisinopril (Verified Adverse Reaction, Unknown, abnormal labs K level, ) Active Scripts Hydrocodone-Acetaminophen ([place]) 5 Mg-325 Mg Tab, 1 TAB PO Q6H Y for PAIN, #10 TAB 0 Refills Prov:Mary Jane Cortez 07/17/[address] (Aspirin DR) 81 Mg Tabdr, 81 MG PO DAILY for prev care, #31 TAB Prov:Esvin Mcnally MD PhD 06/10/17 Atorvastatin (Atorvastatin) 40 Mg Tab, 40 MG PO HS for hyperlipidemia, #31 TAB Prov:Esvin Mcnally MD PhD 06/10/17 Insulin Aspart Inj (Novolog Inj) 1,000 Unit/10 Ml Vial, 0 SQ DIRECTED for Blood Sugar Management, #10 ML 0 Refills Sliding Scale as directed. Prov:Ania Gannon MD 11/12/16 Reported Medications Hydralazine (Hydralazine) 100 Mg Tab, 50 MG PO TID for Blood Pressure Management , TAB 0 Refills Take with meals 07/17/17 Gabapentin (Gabapentin) 100 Mg Cap, 200 MG PO TID, #90 CAP 0 Refills 07/17/17 Clopidogrel (Clopidogrel) 75 Mg Tab, 75 MG PO DAILY for Blood Clot Prevention, # 30 TAB 0 Refills 07/17/17 Glimepiride (Glimepiride) 2 Mg Tab, 2 MG PO BIDAC for Blood Sugar Management, # 60 TAB 0 Refills 07/17/17 Carvedilol (Carvedilol) 25 Mg Tab, 25 MG PO BID, #60 TAB 0 Refills 07/17/17 Amlodipine (Amlodipine) 5 Mg Tab, 5 MG PO BID for Blood Pressure Management, # 30 TAB 0 Refills 07/17/17 Furosemide (Furosemide) 40 Mg Tab, 40 MG PO DAILY, #30 TAB 0 Refills 06/15/17 Allopurinol (Zyloprim) 100 Mg Tab, 100 MG PO DAILY for Gout, #30 TAB 0 Refills 06/08/17 Paroxetine (Paxil) 10 Mg Tab, 20 MG PO DAILY, #30 TAB 0 Refills 06/08/17 Metformin ER (Metformin ER) 750 Mg Lico, 750 MG PO BID for Blood Sugar Management, TAB 0 Refills HOLD UNTIL FURTHER NOTICE 06/08/17 Alprazolam (Xanax) 1 Mg Tab, 1 MG PO HS Y for ANXIETY, TAB 0 Refills 10/20/16 Current Medications Medications (Trade) Dose Ordered Sig/Nara Route Start Time Stop Time Status [place] [place] [facility] [place] 1 [id number] XX 07/19/17 21:45 07/19/17 23:46 (Chlorhexidine 2% Cloth) Taper DAILY@04 TOP 07/20/17 04:00 07/16/18 03:59 07/26/17 03:36 (Chlorhexidine 2% Cloth) 3 pack UNSCH PRN TOP 07/19/17 21:45 (Ely-Colace) 1 tab BID PO 07/20/17 09:00 07/28/17 08:49 (Milk Of Magnesia Liq) 30 ml Q12H PRN PO 07/19/17 21:45 (Senokot) 17.2 mg Q12H PRN PO 07/19/17 21:45 07/24/17 12:16 (Dulcolax Supp) 10 mg DAILY PRN RECTAL 07/19/17 21:45 (Lactulose Liq) 30 ml DAILY PRN PO 07/19/17 21:45 (Zyloprim) 100 mg DAILY PO 07/20/17 09:00 07/28/17 08:48 (Ecotrin Ec) 81 mg DAILY PO 07/20/17 09:00 07/28/17 08:49 (Lipitor) 40 mg HS PO 07/20/17 21:00 07/27/17 19:35 (Plavix) 75 mg DAILY PO 07/20/17 09:00 07/28/17 08:48 (Paxil) 20 mg DAILY PO 07/20/17 09:00 07/28/17 08:48 (Albuterol Neb) 2.5 mg Q2HR NEB PRN NEB 07/20/17 07:30 07/28/17 16:02 (Pepcid) 20 mg DAILY PO 07/20/17 09:00 07/28/17 08:49 ([place] 5-325 Mg) 1 tab Q4H PRN PO 07/20/17 14:00 07/22/17 04:58 (D50w (Vial) Inj) 25 ml UNSCH PRN IV PUSH 07/21/17 04:00 07/28/17 08:48 (Tylenol) 650 mg Q6HR PRN PO 07/21/17 08:00 (Apresoline) 100 mg TID PO 07/22/17 09:00 07/28/17 12:30 (SoluMEDROL INJ) 40 mg BID IV PUSH 07/22/17 21:00 07/28/17 08:48 ([place] 10-325 Mg) 1 tab Q4H PRN PO 07/22/17 07:00 07/28/17 16:31 (Xanax) 0.5 mg HS PRN PO 07/22/17 07:00 07/28/17 00:00 (Lasix) 40 mg DAILY PO 07/22/17 09:00 Future Hold 07/27/17 08:41 (Nitroglycerin 2% Oint) 2 inch Q6HR PRN TOPICAL 07/22/17 07:15 07/24/17 13:24 (Isordil) 10 mg Q8H PO 07/22/17 18:00 07/28/17 10:08 (Trandate Inj) 10 mg Q1HR PRN IV PUSH 07/24/17 13:45 07/28/17 16:37 (Coreg) 37.5 mg BID PO 07/24/17 21:00 07/28/17 08:47 (Narcan Inj) 0.4 mg UNSCH PRN IV PUSH 07/24/17 14:30 (SEROquel) 50 mg HS PO 07/25/17 21:00 07/27/17 21:18 (Zanaflex) 2 mg Q12HR PO 07/25/17 09:00 07/28/17 08:47 (Pill Splitter) 1 ea UNSCH PRN OTHER 07/25/17 08:15 (Levemir Inj) 5 units BID SQ 07/25/17 21:00 Future Hold 07/27/17 21:21 (Revatio) 20 mg Q8H PO 07/26/17 09:00 07/28/17 16:31 (Neurontin) 300 mg Q8HR PO 07/26/17 22:00 07/28/17 06:15 (Narcan Inj) 0.4 mg UNSCH PRN IV PUSH 07/26/17 14:00 Sodium Chloride 1,000 ml @ 75 mls/hr [id number] IV 07/27/17 15:00 07/28/17 16:33 Albumin Human 50 ml @ 60 mls/hr Q12H IV 07/27/17 18:00 07/28/17 06:15 (NovoLOG SUPPLEMENTAL SCALE) 1 ACHS SLIDING SCALE SQ 07/28/17 12:00 07/28/17 16:32 (Toradol Inj) 30 mg Q6HR IV PUSH 07/28/17 18:00 07/29/17 12:01 UNV (Procardia Xl) 60 mg Q12HR PO 07/28/17 21:00 UNV Family Psych History No family psychiatric history Social History Patient was born and raised in [facility], he lives in [place] with his , he has 2 kids one is 16 and other 19 years old, he works, is college graduate Physical Exam Vital Signs Vital Signs Date Time Temp Pulse Resp B/P (MAP) Pulse Ox O2 Delivery O2 Flow Rate FiO2 07/28/17 16:00 98.2 91 14 174/72 (106) 94 07/28/17 08:16 Nasal Cannula 2.00 07/27/17 01:29 35 I/O 07/28/17 07/28/17 07/29/17 08:00 16:00 00:00 Intake Total 840 ml Output Total 4200 ml Balance -3360 ml Lab Results Test 07/27/17 17:59 07/28/17 03:01 07/28/17 04:34 07/28/17 11:05 Potassium Level 5.5 MEQ/L 5.2 MEQ/L 5.2 MEQ/L White Blood Count 12.7 TH/MM3 Red Blood Count 3.67 MIL/MM3 Hemoglobin 9.4 GM/DL Hematocrit 29.5 % Mean Corpuscular Volume 80.6 FL Mean Corpuscular Hemoglobin 25.8 PG Mean Corpuscular Hemoglobin Concent 32.0 % Red Cell Distribution Width 14.8 % Platelet Count 313 TH/MM3 Mean Platelet Volume 7.6 FL Blood Urea Nitrogen 76 MG/DL 70 MG/DL Creatinine 1.59 MG/DL 1.23 MG/DL Random Glucose 115 MG/DL 81 MG/DL Calcium Level 8.5 MG/DL 8.2 MG/DL Sodium Level 131 MEQ/L 135 MEQ/L Chloride Level 93 MEQ/L 95 MEQ/L Carbon Dioxide Level 29.3 MEQ/L 31.7 MEQ/L Anion Gap 9 MEQ/L 8 MEQ/L Estimat Glomerular Filtration Rate 47 ML/MIN 63 ML/MIN Prothrombin Time 10.3 SEC Prothromb Time International Ratio 1.0 RATIO Magnesium Level 2.6 MG/DL Random Cortisol 9.7 MCG/DL Test 07/28/17 13:12 Blood Urea Nitrogen 66 MG/DL Creatinine 1.23 MG/DL Random Glucose 150 MG/DL Calcium Level 8.8 MG/DL Sodium Level 135 MEQ/L Potassium Level 5.3 MEQ/L Chloride Level 95 MEQ/L Carbon Dioxide Level 31.5 MEQ/L Anion Gap 9 MEQ/L Estimat Glomerular Filtration Rate 63 ML/MIN Date/Time Source Procedure Growth Status 07/21/17 03:42 Blood Peripheral Aerobic Blood Culture - Final NO GROWTH IN 5 DAYS Complete 07/21/17 03:42 Blood Peripheral Anaerobic Blood Culture - Final NO GROWTH IN 5 DAYS Complete 07/20/17 10:00 Urine Catheterized Urine Legionella Antigen - Final PRESUMPTIVE NEGATIVE FOR LEGIONELLA P... Complete 07/20/17 10:00 Urine Catheterized Urine Streptococcus pneumoniae Antigen (M - Final PRESUMPTIVE NEGATIVE FOR STREPTOCOCCU... Complete Mental Status Examination Appearance: Appropriate Consciousness: Alert Orientation: x4 Motor Activity: Normal gait Speech: Unremarkable Language: Adequate Fund of Knowledge: Adequate Attention and Concentration: Adequate Memory: Unremarkable Mood: Sad Affect: Sad Thought Process & Associations: Intact Thought Content: Appropriate Hallucination Type: None Delusion Type: None Suicidal Ideation: No Suicidal Plan: No Suicidal Intention: No Homicidal Ideation: No Homicidal Plan: No Homicidal Intention: No Insight: Adequate Judgment: Adequate Assessment & Plan Problem List: (1) Adjustment disorder with anxiety ICD Codes: F43.22 - Adjustment disorder with anxiety Assessment & Plan: She has been presenting increased anxiety, sadness, at times confusion, difficulty sleeping at night Patient has history of generalized anxiety disorder, poor impulse control disorder, depression. Continue Paxil 20 mg daily. Will increase Seroquel to 50 mg twice daily to help with anxiety, poor impulse control, mood stabilization. The patient does not meet criteria for involuntary psychiatric admission. Brief supportive psychotherapy, psychoeducation motivation provided. Assessment & Plan Estimated LOS: Willi Villegas MD Jul 28, 2017 17:32
[2017-07-28] MEDS: KETOROLAC TROMETHAMINE 30 MG/ML (IVP) VIAL IV PUSH SCH ×2 (17:36→23:53)
--- NOTE | 2017-07-28 18:24 | HHI.PR ---
Subjective Remarks 47 YO Obese male with Br Asthma, HTN,DM,CAD with achilles tendon rupture Breathing better PFT restrictive lung disease Good responce to Bronchodilator Had Achilles tendon repair Seen by psych had RHC at Objective Vital Signs Vital Signs Date Time Temp Pulse Resp B/P (MAP) Pulse Ox O2 Delivery O2 Flow Rate FiO2 07/28/17 18:00 100 07/28/17 16:00 98.2 91 14 174/72 (106) 94 07/28/17 16:00 91 07/28/17 12:00 98.1 85 22 191/85 (120) 94 07/28/17 12:00 85 07/28/17 10:00 84 07/28/17 08:16 99 Nasal Cannula 2.00 07/28/17 08:00 79 07/28/17 08:00 98.2 86 20 171/81 (111) 98 07/28/17 07:00 100 Nasal Cannula 2.00 07/28/17 06:00 88 07/28/17 04:00 75 07/28/17 04:00 98.1 74 22 136/64 (88) 98 07/28/17 02:00 74 07/28/17 01:00 176/79 (111) 07/28/17 00:30 07/28/17 00:00 98.2 80 27 202/95 (130) 97 07/28/17 00:00 80 07/27/17 23:49 97.8 88 23 167/79 (108) 97 07/27/17 22:00 88 07/27/17 21:50 97 Nasal Cannula 2.00 07/27/17 20:00 97 Nasal Cannula 4.00 07/27/17 20:00 88 I/O 07/27/17 07/27/17 07/27/17 07/28/17 07/28/17 07/28/17 07:00 15:00 23:00 07:00 15:00 23:00 Intake Total 480 ml 840 ml Output Total 1700 ml 1400 ml 4200 ml 4475 ml Balance -1220 ml -1400 ml -3360 ml -4475 ml Intake Oral 480 ml 840 ml Output Urine Total 1700 ml 1400 ml 4200 ml 4475 ml # Bowel Movements 0 0 1 0 Result Diagram: 07/28/17 0301 07/28/17 1312 Objective Remarks GENERAL: Obese WM, NAD SKIN: Warm and dry. HEAD: Normocephalic. EYES: No scleral icterus. No injection or drainage. NECK: Supple, trachea midline. No JVD or lymphadenopathy. CARDIOVASCULAR: Regular rate and rhythm without murmurs, gallops, or rubs. RESPIRATORY: Breath sounds equal bilaterally. No accessory muscle use. GASTROINTESTINAL: Abdomen soft, non-tender, nondistended. MUSCULOSKELETAL: No cyanosis, or edema. BACK: Nontender without obvious deformity. No CVA tenderness. A/P Assessment and Plan IMPRESSION: 1. Hypercapnic respiratory insufficiency, likely from his underlying sleep apnea. 2. History of asthma. 3. Diabetes mellitus. 4. Hypertension. 5. Coronary artery disease, status post stent placement 6. History of pulmonary embolism. He is off anticoagulation. 7. Restrictive lung disease PLAN; Aerosol nebs Cont Solumedrol 02 to keep sat 88-92 % CPAP at night and prn pain controll DW pt and his at BS Encourage to use CPAP Luis Armando Sawyer MD Jul 28, 2017 18:24
--- NOTE | 2017-07-28 18:36 | MA ---
cc: Arnaldo Hirsch Ryan A DATE: 07/28/2017 PROCEDURE PERFORMED: Right heart catheterization via the right brachial vein approach. PREPROCEDURE DIAGNOSIS: 1. Dyspnea and hypoxemia with associated JUDY, OHS, morbid obesity. 2. Peripheral edema suggestive of decompensated congestive heart failure. 3. Recent echocardiogram with LVEF 50%. 4. Acute kidney injury with difficult assessment of volume status. ANESTHESIA: No anesthesia was provided through the case aside from 1% lidocaine as local anesthetic. COMPLICATIONS: None. ESTIMATED BLOOD LOSS: 5 mL INFORMED CONSENT: Prior to the procedure, the patient was informed of the risks, alternatives and benefits of the procedure including, but not limited to bleeding, vascular complications, stroke, myocardial infarction, arrhythmias and . Expressing an understanding of these risks, the patient agreed to proceed with the procedure. DESCRIPTION OF PROCEDURE: The patient was brought to the cardiac catheterization lab in a postabsorptive state. The patient was prepped and draped in the usual sterile fashion. Once all members of the team were assembled, routine timeout was performed. A previously placed right brachial peripheral IV was switched for a 6-Samo[place] glide sheath over a guide wire under fluoroscopic guidance, at which time the sidearm of the sheath was flushed. A 5-[place] catheter was advanced and a balloon inflated once the catheter passed into the proximal SVC. The catheter was advanced and hemodynamic assessment was obtained of the RA, RV, PA and PCW positions. Both pulmonary capillary wedge and PA oxygen saturations were obtained. The catheter was then removed with completion of the case and the venous sheath was pulled with manual pressure applied until hemostasis was achieved prior to the patient leaving the cardiac catheterization laboratory in stable condition. HEMODYNAMIC FINDINGS: 1. RA: 14 mmHg, small V wave with noted respiratory variation. 2. RV 41/6, EDP 13 mmHg. Biphasic ventricular waveforms with enlarged V wave and respiratory variation. 3. PA: 42/19, mean 27 mmHg. Morphology consistent with catheter whip. 4. PCW: 23 mmHg. Normal appearing A and V waves. 5. PA saturation 71.2%. 6. SA saturation via pulse oximetry 96% on 2 liters via nasal cannula, supplemental oxygen. 7. Vamsi cardiac output 11.6 L/minute, CI 3.9 L/minute/minute/meter squared. ASSESSMENT: 1. Mild pulmonary venous hypertension. 2. Elevated right-sided filling pressures. 3. High CO/Ci possibly overestimated due to concurrent supplemental oxygen administration during study. PLAN: The patient will return to the intensive care unit for continued medical management. Recommend increased diuresis. Start Veltassa 8.4 grams daily for persistent hyperkalemia. DO LEOBARDO Brothers/ , 05:43 PM , 06:35 PM
[2017-07-28] MEDS: ENOXAPARIN SODIUM 40 MG/0.4 ML SYRINGE SQ SCH (20:16)
[2017-07-28] MEDS: ATORVASTATIN 40 MG TAB PO SCH (20:17)
[2017-07-28] MEDS: INSULIN DETEMIR 100 UNITS/ML VIAL SQ SCH (21:01)
[2017-07-28] MEDS: QUEtiapine FUMARATE 25 MG TAB PO SCH (21:41)
[2017-07-28] MEDS: NIFEdipine 60 MG SUSTAINED RELEASE TAB PO SCH (21:55)
[2017-07-28] MEDS: ALPRAZolam 0.5 MG TAB PO PRN ×2 (22:15)
[2017-07-29] VITALS (14 sets, daily range): BP systolic 87–189; BP diastolic 47–88; PULSE 73–110; RESP 15–27; TEMP 98.2–98.6; O2SAT 93–100
[2017-07-29] MEDS: ACETAMINOPHEN/HYDROcodone 325 MG/10 MG TAB PO PRN ×4 (02:44→21:45)
[2017-07-29] MEDS: ISOSORBIDE DINITRATE 10 MG TAB PO SCH ×3 (02:44→16:48)
[2017-07-29] MEDS: CHLORHEXIDINE GLUCONATE 2 % 1 PACK (2 CLOTHS) TOP SCH (04:00)
[2017-07-29 04:13] LABS: HEMATOCRIT 27.9 % (39.0-51.0); HEMOGLOBIN 9.1 GM/DL (13.0-17.0); MEAN CORPUSCULAR HEMOGLOBIN 26.7 PG (27.0-34.0); MEAN CORPUSCULAR HGB CONC 32.6 % (32.0-36.0); MEAN PLATELET VOLUME 7.6 FL (7.0-11.0); PLATELET COUNT 265 TH/MM3 (150-450); RED CELL DISTRIBUTION WIDTH 14.9 % (11.6-17.2); WHITE BLOOD COUNT 6.9 TH/MM3 (4.0-11.0)
[2017-07-29 04:23] LABS: BICARBONATE 32.4 MEQ/L (21.0-32.0); CALCIUM 8.1 MG/DL (8.5-10.1); CREATININE 1.35 MG/DL (0.60-1.30)
[2017-07-29] MEDS: KETOROLAC TROMETHAMINE 30 MG/ML (IVP) VIAL IV PUSH SCH ×2 (06:08→13:16)
[2017-07-29] MEDS: GABAPENTIN 300 MG CAP PO SCH ×3 (06:08→21:44)
[2017-07-29] MEDS: INSULIN ASPART SUPPLEMENTAL SCALE SQ SCH ×4 (08:00→21:00)
--- NOTE | 2017-07-29 08:39 | PD.CARD.PN ---
Subjective Subjective Remarks Still with some dyspnea, especially at night. Still with some leg and scrotal swelling. Taken off of morphine and right ankle hurts more. No chest pain. Objective Medications Current Medications Medications (Trade) Dose Ordered Sig/Nara Route Start Time Stop Time Status Last Admin ([facility] Nursing Information) 1 Q361D XX 07/19/17 21:45 07/19/17 23:46 (Chlorhexidine 2% Cloth) Taper DAILY@04 TOP 07/20/17 04:00 07/16/18 03:59 07/26/17 03:36 (Chlorhexidine 2% Cloth) 3 pack UNSCH PRN TOP 07/19/17 21:45 (Ely-Colace) 1 tab BID PO 07/20/17 09:00 07/28/17 20:17 (Milk Of Magnesia Liq) 30 ml Q12H PRN PO 07/19/17 21:45 (Senokot) 17.2 mg Q12H PRN PO 07/19/17 21:45 07/24/17 12:16 (Dulcolax Supp) 10 mg DAILY PRN RECTAL 07/19/17 21:45 (Lactulose Liq) 30 ml DAILY PRN PO 07/19/17 21:45 (Zyloprim) 100 mg DAILY PO 07/20/17 09:00 07/28/17 08:48 (Ecotrin Ec) 81 mg DAILY PO 07/20/17 09:00 07/28/17 08:49 (Lipitor) 40 mg HS PO 07/20/17 21:00 07/28/17 20:17 (Plavix) 75 mg DAILY PO 07/20/17 09:00 07/28/17 08:48 (Paxil) 20 mg DAILY PO 07/20/17 09:00 07/28/17 08:48 (Albuterol Neb) 2.5 mg Q2HR NEB PRN NEB 07/20/17 07:30 07/28/17 16:02 (Pepcid) 20 mg DAILY PO 07/20/17 09:00 07/28/17 08:49 ([place] 5-325 Mg) 1 tab Q4H PRN PO 07/20/17 14:00 07/22/17 04:58 (D50w (Vial) Inj) 25 ml UNSCH PRN IV PUSH 07/21/17 04:00 07/28/17 08:48 (Tylenol) 650 mg Q6HR PRN PO 07/21/17 08:00 (Apresoline) 100 mg TID PO 07/22/17 09:00 07/28/17 17:37 ([place] 10-325 Mg) 1 tab Q4H PRN PO 07/22/17 07:00 07/29/17 02:44 (Xanax) 0.5 mg HS PRN PO 07/22/17 07:00 07/28/17 22:15 (Lasix) 40 mg DAILY PO 07/22/17 09:00 Future Hold 07/27/17 08:41 (Nitroglycerin 2% Oint) 2 inch Q6HR PRN TOPICAL 07/22/17 07:15 07/24/17 13:24 (Isordil) 10 mg Q8H PO 07/22/17 18:00 07/29/17 02:44 (Trandate Inj) 10 mg Q1HR PRN IV PUSH 07/24/17 13:45 07/28/17 16:37 (Coreg) 37.5 mg BID PO 07/24/17 21:00 07/28/17 20:17 (Narcan Inj) 0.4 mg UNSCH PRN IV PUSH 07/24/17 14:30 (Zanaflex) 2 mg Q12HR PO 07/25/17 09:00 07/28/17 20:17 (Pill Splitter) 1 ea UNSCH PRN OTHER 07/25/17 08:15 (Levemir Inj) 5 units BID SQ 07/25/17 21:00 Future hold 07/28/17 21:01 (Neurontin) 300 mg Q8HR PO 07/26/17 22:00 07/29/17 06:08 (Narcan Inj) 0.4 mg UNSCH PRN IV PUSH 07/26/17 14:00 (NovoLOG SUPPLEMENTAL SCALE) 1 ACHS SLIDING SCALE SQ 07/28/17 12:00 07/28/17 21:01 (Toradol Inj) 30 mg Q6HR IV PUSH 07/28/17 18:00 07/29/17 12:01 07/29/17 06:08 (Procardia Xl) 60 mg Q12HR PO 07/28/17 21:00 07/28/17 21:55 (SEROquel) 50 mg BID PO 07/28/17 21:00 07/28/17 21:41 (Lovenox Inj) 40 mg Q12H SQ 07/28/17 20:00 07/28/17 20:16 (SoluMEDROL INJ) 40 mg DAILY IV PUSH 07/29/17 09:00 Vital Signs / I&O Vital Signs Date Time Temp Pulse Resp B/P (MAP) Pulse Ox O2 Delivery O2 Flow Rate FiO2 07/29/17 08:08 100 Nasal Cannula 2.00 07/29/17 06:00 89 07/29/17 04:00 82 07/29/17 04:00 98.5 82 16 164/79 (107) 99 07/29/17 02:00 86 07/29/17 00:00 78 07/29/17 00:00 98.6 78 26 149/67 (94) 96 07/28/17 22:00 75 07/28/17 21:36 98 Nasal Cannula 2.50 07/28/17 20:00 97 Nasal Cannula 2.00 07/28/17 20:00 98.4 94 15 169/76 (107) 97 07/28/17 20:00 94 07/28/17 18:00 100 07/28/17 16:00 98.2 91 14 174/72 (106) 94 07/28/17 16:00 91 07/28/17 12:00 98.1 85 22 191/85 (120) 94 07/28/17 12:00 85 07/28/17 10:00 84 I/O 07/28/17 07/28/17 07/28/17 07/29/17 07/29/17 07/29/17 07:00 15:00 23:00 07:00 15:00 23:00 Intake Total 840 ml 1050 ml 2080 ml Output Total 4200 ml 4475 ml 2000 ml Balance -3360 ml -3425 ml 80 ml Intake Oral 840 ml 1080 ml IV Total 1050 ml 1000 ml Output Urine Total 4200 ml 4475 ml 2000 ml # Bowel Movements 1 0 1 Physical Exam GENERAL: Well-developed well-nourished morbidly obese. NECK: No carotid bruits. No JVD. CARDIOVASCULAR: Regular rate and rhythm. No murmur appreciated. RESPIRATORY: Diminished breath sounds in the bases. No crackles. MUSCULOSKELETAL: Right ankle in Ronnell wrap. 1+ lower extremity edema. No scrotal edema noted. NEUROLOGICAL: Bit somnolent today. Normal speech. Laboratory Laboratory Tests Test 07/28/17 11:05 07/28/17 13:12 07/29/17 03:32 Blood Urea Nitrogen 70 MG/DL 66 MG/DL 61 MG/DL Creatinine 1.23 MG/DL 1.23 MG/DL 1.35 MG/DL Random Glucose 81 MG/DL 150 MG/DL 263 MG/DL Calcium Level 8.2 MG/DL 8.8 MG/DL 8.1 MG/DL Magnesium Level 2.6 MG/DL Sodium Level 135 MEQ/L 135 MEQ/L 136 MEQ/L Potassium Level 5.2 MEQ/L 5.3 MEQ/L 5.1 MEQ/L Chloride Level 95 MEQ/L 95 MEQ/L 97 MEQ/L Carbon Dioxide Level 31.7 MEQ/L 31.5 MEQ/L 32.4 MEQ/L Anion Gap 8 MEQ/L 9 MEQ/L 7 MEQ/L Estimat Glomerular Filtration Rate 63 ML/MIN 63 ML/MIN 57 ML/MIN Random Cortisol 9.7 MCG/DL White Blood Count 6.9 TH/MM3 Red Blood Count 3.40 MIL/MM3 Hemoglobin 9.1 GM/DL Hematocrit 27.9 % Mean Corpuscular Volume 82.0 FL Mean Corpuscular Hemoglobin 26.7 PG Mean Corpuscular Hemoglobin Concent 32.6 % Red Cell Distribution Width 14.9 % Platelet Count 265 TH/MM3 Mean Platelet Volume 7.6 FL Imaging Last Impressions Ankle X-Ray 07/24/17 1256 Signed Impressions: CONCLUSION: 1. An apparent focal cortical break of the calcaneus just posterior to the sub talar joint. This appears new. 2. Splint present. 3. Multifocal ankle and hindfoot osteoarthritis. 4. Accessory navicular and large os peroneum. Chest X-Ray 07/23/17 0600 Signed Impressions: CONCLUSION: Cardiomegaly. Ankle MRI 07/21/17 0000 Signed Impressions: CONCLUSION: 1. Severe tendinopathy of the distal Achilles tendon with full-thickness tear. Tiny intact strand of tendon present medially. There is also partial avulsion of the Achilles tendon at the insertion site on the calcaneus. 2. Severe marrow edema posterior calcaneus especially the lateral aspect, prob ably a small impaction fracture. 3. Mild contusion posterior talus. 4. Small ankle joint effusion. Extensive subcutaneous edema. Lung Scan-V Nuclear Medicine 07/19/17 1528 Signed Impressions: CONCLUSION: 1. Low probability for pulmonary embolism. Compensated cardiomegaly. If high c linical suspicion CT angiogram would be of benefit. Assessment and Plan Assessment and Plan 47-year-old male with past medical history of CAD status post PCI 06/17/17, diastolic CHF, COPD, HTN, HLD, DM who presented for shortness of breath and somnolence Assessment: Hypercapnic hypoxemic respirator failure Obesity hypoventilation syndrome JUDY on intermittent BiPAP Carries dx of COPD No evidence of CHF at this time. In fact, appears intravascularly dry by serology. LISS - renal function improved Hyperkalemia Super morbid obesity Hypoalbuminemia RHC 07/28 showed: 1. Mild pulmonary venous hypertension. 2. Elevated right-sided filling pressures. 3. High CO/Ci possibly overestimated due to concurrent supplemental oxygen administration during study. Rec: Interestingly right heart cath revealed elevated right-sided filling pressures, however following administration of IV fluids, IV albumin and cessation of diuresis his renal function, hyponatremia, hyperkalemia, and hypochloremia improved, all consistent with intravascular contracted state. At this juncture , I would recommend holding on further diuresis. May consider nephrology consultation. Recommend Veltassa for hyperkalemia, med restricted to nephrology Discussed Condition With Patient with at bedside, Lewis Tejada Jul 29, 2017 08:39
[2017-07-29] MEDS: INSULIN DETEMIR 100 UNITS/ML VIAL SQ SCH ×2 (09:00→21:00)
[2017-07-29] MEDS: DOCUSATE SODIUM 50 MG/SENNA 8.6 MG TAB PO SCH ×2 (09:00→21:45)
[2017-07-29] MEDS ORDERED: methylPREDNISolone SOD SUCC 40 MG/1 ML VIAL IV PUSH SCH (09:00)
[2017-07-29] MEDS: hydrALAZINE HCL 100 MG TAB PO SCH ×3 (09:00→16:48)
[2017-07-29] MEDS: ENOXAPARIN SODIUM 40 MG/0.4 ML SYRINGE SQ SCH ×2 (09:38→21:46)
[2017-07-29] MEDS: NIFEdipine 60 MG SUSTAINED RELEASE TAB PO SCH ×2 (09:39→21:44)
[2017-07-29] MEDS: QUEtiapine FUMARATE 25 MG TAB PO SCH ×2 (09:39→21:44)
[2017-07-29] MEDS: FAMOTIDINE 20 MG TAB PO SCH (09:40)
[2017-07-29] MEDS: ALLOPURINOL 100 MG TAB PO SCH (09:40)
[2017-07-29] MEDS: ASPIRIN EC 81 MG TABEC PO SCH (09:40)
[2017-07-29] MEDS: CLOPIDOGREL 75 MG TAB PO SCH (09:40)
[2017-07-29] MEDS: CARVEDILOL 12.5 MG TAB PO SCH ×2 (09:40→21:00)
[2017-07-29] MEDS: PARoxetine HCL 20 MG TAB PO SCH (09:40)
--- NOTE | 2017-07-29 11:30 | HHI.PR ---
Subjective Remarks 47 YO Obese male with Br Asthma, HTN,DM,CAD with achilles tendon rupture Breathing better PFT restrictive lung disease Good responce to Bronchodilator Had Achilles tendon repair Seen by psych had RHC at BS Did't use CPAP last night Off Morphine, had Phillips and Toradol Objective Vital Signs Vital Signs Date Time Temp Pulse Resp B/P (MAP) Pulse Ox O2 Delivery O2 Flow Rate FiO2 07/29/17 10:00 79 07/29/17 08:08 100 Nasal Cannula 2.00 07/29/17 08:00 80 07/29/17 08:00 81 07/29/17 08:00 98.2 81 22 182/86 (118) 97 07/29/17 06:00 89 07/29/17 04:00 82 07/29/17 04:00 98.5 82 16 164/79 (107) 99 07/29/17 02:00 86 07/29/17 00:00 78 07/29/17 00:00 98.6 78 26 149/67 (94) 96 07/28/17 22:00 75 07/28/17 21:36 98 Nasal Cannula 2.50 07/28/17 20:00 97 Nasal Cannula 2.00 07/28/17 20:00 98.4 94 15 169/76 (107) 97 07/28/17 20:00 94 07/28/17 18:00 100 07/28/17 16:00 98.2 91 14 174/72 (106) 94 07/28/17 16:00 91 07/28/17 12:00 98.1 85 22 191/85 (120) 94 07/28/17 12:00 85 I/O 07/28/17 07/28/17 07/28/17 07/29/17 07/29/17 07/29/17 07:00 15:00 23:00 07:00 15:00 23:00 Intake Total 840 ml 1050 ml 2080 ml Output Total 4200 ml 4475 ml 2000 ml Balance -3360 ml -3425 ml 80 ml Intake Oral 840 ml 1080 ml IV Total 1050 ml 1000 ml Output Urine Total 4200 ml 4475 ml 2000 ml # Bowel Movements 1 0 1 Result Diagram: 07/29/1733107/29/17 033 Objective Remarks GENERAL: Obese WM, NAD SKIN: Warm and dry. HEAD: Normocephalic. EYES: No scleral icterus. No injection or drainage. NECK: Supple, trachea midline. No JVD or lymphadenopathy. CARDIOVASCULAR: Regular rate and rhythm without murmurs, gallops, or rubs. RESPIRATORY: Breath sounds equal bilaterally. No accessory muscle use. GASTROINTESTINAL: Abdomen soft, non-tender, nondistended. MUSCULOSKELETAL: No cyanosis, or edema. BACK: Nontender without obvious deformity. No CVA tenderness. A/P Assessment and Plan IMPRESSION: 1. Hypercapnic respiratory insufficiency, likely from his underlying sleep apnea. 2. History of asthma. 3. Diabetes mellitus. 4. Hypertension. 5. Coronary artery disease, status post stent placement 6. History of pulmonary embolism. He is off anticoagulation. 7. Restrictive lung disease PLAN; Aerosol nebs 02 to keep sat 88-92 % CPAP at night and prn pain controll, on Phillips and Toradol DW pt and his at BS Encourage to use CPAP Luis Armando Sawyer MD Jul 29, 2017 11:30
--- NOTE | 2017-07-29 13:23 | PD.CONS ---
HPI Service Nephrology Consult Requested By Dr. Hollis Reason for Consult Persistent Hyperkalemia with possible hypoaldosteronism Primary Care Physician Ania Gannon MD History of Present Illness Patient is a 47-year-old male with a history of morbid obesity, asthma, COPD, hypertension, CAD with stent placement, diabetes, gout, neuropathy, and hx of acute kidney failure. Presented to emergency room with new onset worsening shortness of breath and presyncopal type symptoms for the last 1 week. Nephrology is consulted for persistent hyperkalemia with potassium ranging for 5.0 to 6.0 which has required treatment with Kayexalate, insulin, calcium gluconate, and sodium bicarbonate. Does not appear to be medication related. Does not report a past medical history of hyperkalemia. Renin, cortisol, and aldosterone levels have been ordered and pending. Will order urine potassium and put patient on low potassium diet. (Beth Bolanos) Past Family Social History Allergies: Coded Allergies: codeine (Verified Allergy, Severe, Itching, 07/19/17) tramadol (Verified Allergy, Unknown, 07/19/17) clonidine (Unverified Adverse Reaction, Severe, ARNDT, dry mouth, "felt drunk ", 07/19/17) lisinopril (Verified Adverse Reaction, Unknown, abnormal labs K level, ) Past Medical History Arthritis Asthma Anxiety Depression Irregular heart rate Hypertension Coronary artery disease status post PCI 1 Hypercholesterolemia COPD Type 2 diabetes Gout Kidney stones Bilateral lower extremity neuropathy History of prior acute renal failure Past Surgical History Arthritis Asthma Anxiety Anal fissures Coronary artery stent Left inner thigh abscess removed Tonsillectomy Active Ordered Medications Current Medications Medications (Trade) Dose Ordered Sig/Nara Route Start Time Stop Time Status Last Admin ([facility] Nursing Information) 1 Q361D XX 07/19/17 21:45 07/19/17 23:46 (Chlorhexidine 2% Cloth) Taper DAILY@04 TOP 07/20/17 04:00 07/16/18 03:59 07/26/17 03:36 (Chlorhexidine 2% Cloth) 3 pack UNSCH PRN TOP 07/19/17 21:45 (Ely-Colace) 1 tab BID PO 07/20/17 09:00 07/28/17 20:17 (Milk Of Magnesia Liq) 30 ml Q12H PRN PO 07/19/17 21:45 (Senokot) 17.2 mg Q12H PRN PO 07/19/17 21:45 07/24/17 12:16 (Dulcolax Supp) 10 mg DAILY PRN RECTAL 07/19/17 21:45 (Lactulose Liq) 30 ml DAILY PRN PO 07/19/17 21:45 (Zyloprim) 100 mg DAILY PO 07/20/17 09:00 07/29/17 09:40 (Ecotrin Ec) 81 mg DAILY PO 07/20/17 09:00 07/29/17 09:40 (Lipitor) 40 mg HS PO 07/20/17 21:00 07/28/17 20:17 (Plavix) 75 mg DAILY PO 07/20/17 09:00 07/29/17 09:40 (Paxil) 20 mg DAILY PO 07/20/17 09:00 07/29/17 09:40 (Albuterol Neb) 2.5 mg Q2HR NEB PRN NEB 07/20/17 07:30 07/28/17 16:02 (Pepcid) 20 mg DAILY PO 07/20/17 09:00 07/29/17 09:40 ([place] 5-325 Mg) 1 tab Q4H PRN PO 07/20/17 14:00 07/22/17 04:58 (D50w (Vial) Inj) 25 ml UNSCH PRN IV PUSH 07/21/17 04:00 07/28/17 08:48 (Tylenol) 650 mg Q6HR PRN PO 07/21/17 08:00 (Apresoline) 100 mg TID PO 07/22/17 09:00 07/28/17 17:37 ([place] 10-325 Mg) 1 tab Q4H PRN PO 07/22/17 07:00 07/29/17 09:56 (Xanax) 0.5 mg HS PRN PO 07/22/17 07:00 07/28/17 22:15 (Lasix) 40 mg DAILY PO 07/22/17 09:00 Future Hold 07/27/17 08:41 (Nitroglycerin 2% Oint) 2 inch Q6HR PRN TOPICAL 07/22/17 07:15 07/24/17 13:24 (Isordil) 10 mg Q8H PO 07/22/17 18:00 07/29/17 10:00 (Trandate Inj) 10 mg Q1HR PRN IV PUSH 07/24/17 13:45 07/28/17 16:37 (Coreg) 37.5 mg BID PO 07/24/17 21:00 07/29/17 09:40 (Narcan Inj) 0.4 mg UNSCH PRN IV PUSH 07/24/17 14:30 (Zanaflex) 2 mg Q12HR PO 07/25/17 09:00 07/29/17 09:40 (Pill Splitter) 1 ea UNSCH PRN OTHER 07/25/17 08:15 (Levemir Inj) 5 units BID SQ 07/25/17 21:00 Future hold 07/29/17 09:00 (Neurontin) 300 mg Q8HR PO 07/26/17 22:00 07/29/17 13:15 (Narcan Inj) 0.4 mg UNSCH PRN IV PUSH 07/26/17 14:00 (NovoLOG SUPPLEMENTAL SCALE) 1 ACHS SLIDING SCALE SQ 07/28/17 12:00 07/29/17 12:00 (Procardia Xl) 60 mg Q12HR PO 07/28/17 21:00 07/29/17 09:39 (SEROquel) 50 mg BID PO 07/28/17 21:00 07/29/17 09:39 (Lovenox Inj) 40 mg Q12H SQ 07/28/17 20:00 07/29/17 09:38 (SoluMEDROL INJ) 40 mg DAILY IV PUSH 07/29/17 09:00 07/29/17 23:55 07/29/17 09:39 (Deltasone) 20 mg BID PO 07/30/17 09:00 Social History Former smoker (Beth Bolanos) Physical Exam Vital Signs Vital Signs Date Time Temp Pulse Resp B/P (MAP) Pulse Ox O2 Delivery O2 Flow Rate FiO2 07/29/17 10:00 79 07/29/17 08:08 100 Nasal Cannula 2.00 07/29/17 08:00 80 07/29/17 08:00 81 07/29/17 08:00 98.2 81 22 182/86 (118) 97 07/29/17 06:00 89 07/29/17 04:00 82 07/29/17 04:00 98.5 82 16 164/79 (107) 99 07/29/17 02:00 86 07/29/17 00:00 78 07/29/17 00:00 98.6 78 26 149/67 (94) 96 07/28/17 22:00 75 07/28/17 21:36 98 Nasal Cannula 2.50 07/28/17 20:00 97 Nasal Cannula 2.00 07/28/17 20:00 98.4 94 15 169/76 (107) 97 07/28/17 20:00 94 07/28/17 18:00 100 07/28/17 16:00 98.2 91 14 174/72 (106) 94 07/28/17 16:00 91 Physical Exam GENERAL: Alert and oriented. Obese SKIN: Warm and dry. HEAD: Normocephalic. EYES: No scleral icterus. No injection or drainage. NECK: Supple, trachea midline. No JVD or lymphadenopathy. CARDIOVASCULAR: Regular rate and rhythm without murmurs, gallops, or rubs. RESPIRATORY: Breath sounds equal bilaterally. No accessory muscle use. GASTROINTESTINAL: Abdomen soft, non-tender, nondistended. MUSCULOSKELETAL: No cyanosis, right leg with dressing BACK: Nontender without obvious deformity. No CVA tenderness. Laboratory Laboratory Tests Test 07/29/17 03:32 White Blood Count 6.9 Red Blood Count 3.40 Hemoglobin 9.1 Hematocrit 27.9 Mean Corpuscular Volume 82.0 Mean Corpuscular Hemoglobin 26.7 Mean Corpuscular Hemoglobin Concent 32.6 Red Cell Distribution Width 14.9 Platelet Count 265 Mean Platelet Volume 7.6 Blood Urea Nitrogen 61 Creatinine 1.35 Random Glucose 263 Calcium Level 8.1 Sodium Level 136 Potassium Level 5.1 Chloride Level 97 Carbon Dioxide Level 32.4 Anion Gap 7 Estimat Glomerular Filtration Rate 57 Date/Time Source Procedure Growth Status 07/21/17 03:42 Blood Peripheral Aerobic Blood Culture - Final NO GROWTH IN 5 DAYS Complete 07/21/17 03:42 Blood Peripheral Anaerobic Blood Culture - Final NO GROWTH IN 5 DAYS Complete 07/20/17 10:00 Urine Catheterized Urine Legionella Antigen - Final PRESUMPTIVE NEGATIVE FOR LEGIONELLA P... Complete 07/20/17 10:00 Urine Catheterized Urine Streptococcus pneumoniae Antigen (M - Final PRESUMPTIVE NEGATIVE FOR STREPTOCOCCU... Complete (Beth Bolanos) Result Diagram: 07/29/17 0332 07/29/17 0332 Imaging Last Impressions Ankle X-Ray 07/24/17 1256 Signed Impressions: CONCLUSION: 1. An apparent focal cortical break of the calcaneus just posterior to the sub talar joint. This appears new. 2. Splint present. 3. Multifocal ankle and hindfoot osteoarthritis. 4. Accessory navicular and large os peroneum. Chest X-Ray 07/23/17 0600 Signed Impressions: CONCLUSION: Cardiomegaly. Ankle MRI 07/21/17 0000 Signed Impressions: CONCLUSION: 1. Severe tendinopathy of the distal Achilles tendon with full-thickness tear. Tiny intact strand of tendon present medially. There is also partial avulsion of the Achilles tendon at the insertion site on the calcaneus. 2. Severe marrow edema posterior calcaneus especially the lateral aspect, prob ably a small impaction fracture. 3. Mild contusion posterior talus. 4. Small ankle joint effusion. Extensive subcutaneous edema. Lung Scan- Nuclear Medicine 07/19/17 1528 Signed Impressions: CONCLUSION: 1. Low probability for pulmonary embolism. Compensated cardiomegaly. If high c linical suspicion CT angiogram would be of benefit. (Beth Bolanos) Assessment and Plan Problem List: (1) Hyperkalemia ICD Codes: E87.5 - Hyperkalemia Plan: Persistent hyperkalemia with potassium ranging for 5.0 to 6.0 which has required treatment with Kayexalate, insulin, calcium gluconate, and sodium bicarbonate. Does not appear to be medication related. Does not report a past medical history of hyperkalemia. Plan Work up for hypoaldosteronism underway Potassium level of 5.1 today Renin, cortisol, and aldosterone levels have been ordered and pending. Will order urine potassium and low potassium diet. Will follow potassium levels and consider veltassa if needed. (Beth Bolanos) Problem List: (1) Hyperkalemia ICD Codes: E87.5 - Hyperkalemia Plan: Persistent hyperkalemia with potassium ranging for 5.0 to 6.0 which has required treatment with Kayexalate, insulin, calcium gluconate, and sodium bicarbonate. Does not appear to be medication related. Does not report a past medical history of hyperkalemia. Plan Work up for hypoaldosteronism underway Potassium level of 5.1 today Renin, cortisol, and aldosterone levels have been ordered and pending. Will order urine potassium and low potassium diet. Will follow potassium levels and consider veltassa if needed. Patient seen and examined, agree with above. Patient has possibly chronic kidney disease. K has been elevated, no metabolic acidosis. Decrease K in the diet, check UA for proteinuria. Urine K level. (Kristi Steele MD) eBth Bolanos Jul 29, 2017 13:23 Kristi Steele MD Jul 29, 2017 15:52
--- NOTE | 2017-07-29 14:43 | HHI.PYPN ---
Subjective Remarks The patient was seen today for psychiatric reevaluation. He was calm, cooperative, talking with his and a visitor. He reports feeling much better. He seems to be more alert, out of confusion, oriented 3. He continued to report pain in his legs, 10 of 10. Denies suicidal and was ideation, he denies visual and auditory hallucinations. Mental Status Examination Appearance: Appropriate Consciousness: Alert Orientation: x4 Motor Activity: Normal gait Speech: Unremarkable Language: Adequate Fund of Knowledge: Adequate Attention and Concentration: Adequate Memory: Unremarkable Mood: Sad Affect: Sad Thought Process & Associations: Intact Thought Content: Appropriate Hallucination Type: None Delusion Type: None Suicidal Ideation: No Suicidal Plan: No Suicidal Intention: No Homicidal Ideation: No Homicidal Plan: No Homicidal Intention: No Insight: Adequate Judgment: Adequate Results Labs Test 07/29/17 03:32 White Blood Count 6.9 TH/MM3 Red Blood Count 3.40 MIL/MM3 Hemoglobin 9.1 GM/DL Hematocrit 27.9 % Mean Corpuscular Volume 82.0 FL Mean Corpuscular Hemoglobin 26.7 PG Mean Corpuscular Hemoglobin Concent 32.6 % Red Cell Distribution Width 14.9 % Platelet Count 265 TH/MM3 Mean Platelet Volume 7.6 FL Blood Urea Nitrogen 61 MG/DL Creatinine 1.35 MG/DL Random Glucose 263 MG/DL Calcium Level 8.1 MG/DL Sodium Level 136 MEQ/L Potassium Level 5.1 MEQ/L Chloride Level 97 MEQ/L Carbon Dioxide Level 32.4 MEQ/L Anion Gap 7 MEQ/L Estimat Glomerular Filtration Rate 57 ML/MIN Date/Time Source Procedure Growth Status 07/21/17 03:42 Blood Peripheral Aerobic Blood Culture - Final NO GROWTH IN 5 DAYS Complete 07/21/17 03:42 Blood Peripheral Anaerobic Blood Culture - Final NO GROWTH IN 5 DAYS Complete 07/20/17 10:00 Urine Catheterized Urine Legionella Antigen - Final PRESUMPTIVE NEGATIVE FOR LEGIONELLA P... Complete 07/20/17 10:00 Urine Catheterized Urine Streptococcus pneumoniae Antigen (M - Final PRESUMPTIVE NEGATIVE FOR STREPTOCOCCU... Complete Vitals/IOs Vital Signs Date Time Temp Pulse Resp B/P (MAP) Pulse Ox O2 Delivery O2 Flow Rate FiO2 07/29/17 12:00 98.2 74 16 87/47 (60) 94 07/29/17 08:08 Nasal Cannula 2.00 07/27/17 01:29 35 Intake and Output 07/29/17 07/29/17 07/30/17 08:00 16:00 00:00 Intake Total 2080 ml Output Total 2000 ml Balance 80 ml Assessment & Plan Problem List: (1) Adjustment disorder with anxiety ICD Codes: F43.22 - Adjustment disorder with anxiety Assessment & Plan: No admission indicated. Continue current psychotropic regimen. Brief supportive psychotherapy provided. Assessment & Plan Estimated LOS: days Justification for Cont. Inpt. No admission indicated Willi Mortensen MD Jul 29, 2017 14:43
[2017-07-29] MEDS ORDERED: FUROSEMIDE 100 MG/10 ML VIAL IV PUSH ONE (16:15)
--- NOTE | 2017-07-29 16:16 | HHI.PR ---
Subjective Remarks No new complaints. Objective Vitals Vital Signs Date Time Temp Pulse Resp B/P (MAP) Pulse Ox O2 Delivery O2 Flow Rate FiO2 07/29/17 14:00 73 07/29/17 12:00 98.2 74 16 87/47 (60) 94 07/29/17 12:00 75 07/29/17 10:00 79 07/29/17 08:08 100 Nasal Cannula 2.00 07/29/17 08:00 80 07/29/17 08:00 81 07/29/17 08:00 98.2 81 22 182/86 (118) 97 07/29/17 07:00 95 Nasal Cannula 2.00 07/29/17 06:00 89 07/29/17 04:00 82 07/29/17 04:00 98.5 82 16 164/79 (107) 99 07/29/17 02:00 86 07/29/17 00:00 78 07/29/17 00:00 98.6 78 26 149/67 (94) 96 07/28/17 22:00 75 07/28/17 21:36 98 Nasal Cannula 2.50 07/28/17 20:00 97 Nasal Cannula 2.00 07/28/17 20:00 98.4 94 15 169/76 (107) 97 07/28/17 20:00 94 07/28/17 18:00 100 Result Diagram: 07/29/17 0332 07/29/17 0332 Imaging Last Impressions Ankle X-Ray 07/24/17 1256 Signed Impressions: CONCLUSION: 1. An apparent focal cortical break of the calcaneus just posterior to the sub talar joint. This appears new. 2. Splint present. 3. Multifocal ankle and hindfoot osteoarthritis. 4. Accessory navicular and large os peroneum. Chest X-Ray 07/23/17 0600 Signed Impressions: CONCLUSION: Cardiomegaly. Ankle MRI 07/21/17 0000 Signed Impressions: CONCLUSION: 1. Severe tendinopathy of the distal Achilles tendon with full-thickness tear. Tiny intact strand of tendon present medially. There is also partial avulsion of the Achilles tendon at the insertion site on the calcaneus. 2. Severe marrow edema posterior calcaneus especially the lateral aspect, prob ably a small impaction fracture. 3. Mild contusion posterior talus. 4. Small ankle joint effusion. Extensive subcutaneous edema. Lung Scan-VQ Nuclear Medicine 07/19/17 1528 Signed Impressions: CONCLUSION: 1. Low probability for pulmonary embolism. Compensated cardiomegaly. If high c linical suspicion CT angiogram would be of benefit. Objective Remarks GENERAL: This is a Morbidly obese 47 year old male patient, in no apparent distress. CARDIOVASCULAR: Regular rate and rhythm RESPIRATORY: diminished, difficult to auscultate due to body habitus GASTROINTESTINAL: Abdomen soft, non-tender, nondistended. Normal active bowel sounds MUSCULOSKELETAL: Right lower extremity is wrapped in Ronnell bandage with a heel splint in place. NEURO: Alert & Oriented x4 to person, place, time, situation. Moves all ext x4 Procedures Open repair of right Achilles tendon rupture with flexor hallucis longus tendon transfer and gastrocnemius recession, right lower extremity on 07/24/[address] Murillo. A/P Problem List: (1) Hypercapnic respiratory failure ICD Codes: J96.92 - Respiratory failure, unspecified with hypercapnia Plan: Hypercapnic respiratory insufficiency, likely from his underlying sleep apnea patient was no ton bipap at home prior to admission COPD exacerbation BiPAP 08/10 at 35% wean the nasal cannula as needed. BiPAP at night Wean FiO2 for goal SPO2 greater than 90% Currently methylprednisolone succinate 40 mg IV 2 times daily Albuterol/ipratropium aerosols every 4 hours with albuterol aerosols every 2 hours as needed dyspnea Head of bed elevated 30 VQ scan admission low probability for pulmonary embolism Dr. Sawyer pulmonary following. Concern for right heart strain Cardiology reconsulted 07/27/17 Patient has been started on sildenafil while in ICU due to concern for right heart strain. 07/27/17 Dr. Cordero discussed with cardiology plan for right heart catheterization 2-D echocardiogram 07/23/17: The left ventricular systolic function is mildly reduced with an estimated ejection fraction in the range of 45- 50%. Mild infero -posterior hypokinesis Mild concentric left ventricular hypertrophy. Normal left ventricular size. The left atrial size is moderately dilated. There is trace tricuspid valve regurgitation. Trivial pulmonary valve regurgitation. RIGHT VENTRICLE Normal right ventricular size and systolic function. - Case d/w Cardiology, Dr. Hirsch, (07/27). - RHC completed (07/28) - class 2 Pulm HTN - PCW 23 - Pt volume overloaded still - Case d/w [facility], Dr. Babin - trial of diuresis, 80mg then 40mg IV BID and observe urine output and Creatinine - might need Albia-Shivam Cath (2) COPD exacerbation ICD Codes: J44.1 - Chronic obstructive pulmonary disease with (acute) exacerbation Plan: see above (3) Achilles rupture, right ICD Codes: S86.011A - Strain of right Achilles tendon, initial encounter Plan: Open repair of right Achilles tendon rupture with flexor hallucis longus tendon transfer and gastrocnemius recession, right lower extremity on 07/24/[address] Murillo. Per podiatry: Recommend rehab if patient unable to maintain non weight bearing status Patient cleared for DC per podiatry hydrocodone/acetaminophen 10/325 one tablet every 4 hours as needed pain. 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 gabapentin 300mg tid tizanidine 2mg po q12h 07/25 right popliteal nerve block (4) DM (diabetes mellitus) ICD Codes: E11.9 - Type 2 diabetes mellitus without complications Status: Chronic Plan: Holding glimepiride 2 milligrams twice daily and metformin 750 mg p.o. twice daily Allopurinol 100 mg p.o. daily for gout -- SSI Novolin R high dose regimen Accu-Cheks before meals at [id number] Insulin detemir 5 units subcu twice daily (5) CAD (coronary artery disease) ICD Codes: I25.10 - Atherosclerotic heart disease of [place] coronary artery without angina pectoris Plan: Patient with recent cardiac catheterization with PCI 06/17/17 Patient had a PE approximately 8 months ago and was on Coumadin for until the cardiac cauterization 06/17/17 After craterization patient's Coumadin was DC'd and he was started on Aspirin and Plavix Continue patient's aspirin 81 mg daily, Plavix 75 mg PO daily, Atorvastatin 40 mg PO QHS and Coreg BID (6) Anxiety and depression ICD Codes: F41.9 - Anxiety disorder, unspecified; F32.9 - Major depressive disorder, single episode, unspecified Plan: Continue home alprazolam 0.5 mg at night as needed Continue home paroxetine 20 mg p.o. daily for depression (7) Morbid obesity ICD Codes: E66.01 - Morbid (severe) obesity due to excess calories Plan: Patient to follow up with PCP for further weight loss and possible referral to bariatric surgery (8) Hyperkalemia ICD Codes: E87.5 - Hyperkalemia Plan: - Pt still with hyperkalemia despite multiple doses of kayexalate - K 6.0, 5.9, 5.2 (07/27) - K 5.2, 5.2, 5.3 (07/28) - calcium gluconate// insulin with D50 given 07/28 - K 5.1 (07/29) - r/o hypoaldosteronism - obtain ACTH, serum cortisol, renin, serum aldosterone. - These are send out labs. I do NOT expect the results prior to August 01 - Case d/w Dr. 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
[2017-07-29] MEDS: GLIMEPIRIDE 4 MG TAB PO SCH (19:00)
[2017-07-29] MEDS: ATORVASTATIN 40 MG TAB PO SCH (21:44)
[2017-07-29] MEDS: ALPRAZolam 0.5 MG TAB PO PRN (21:45)
[2017-07-30] VITALS (9 sets, daily range): BP systolic 175–204; BP diastolic 84–88; PULSE 73–96; RESP 14–18; TEMP 98.1–98.5; O2SAT 96–99
[2017-07-30] MEDS: ACETAMINOPHEN/HYDROcodone 325 MG/10 MG TAB PO PRN ×4 (02:31→20:18)
[2017-07-30] MEDS: ISOSORBIDE DINITRATE 10 MG TAB PO SCH ×3 (02:32→17:37)
[2017-07-30] MEDS: CHLORHEXIDINE GLUCONATE 2 % 1 PACK (2 CLOTHS) TOP SCH (04:00)
[2017-07-30] MEDS ORDERED: FUROSEMIDE 40 MG/4 ML VIAL IV PUSH SCH (08:00)
[2017-07-30] MEDS: INSULIN ASPART SUPPLEMENTAL SCALE SQ SCH ×4 (08:00→20:09)
[2017-07-30] MEDS: ENOXAPARIN SODIUM 40 MG/0.4 ML SYRINGE SQ SCH ×2 (09:00→20:09)
[2017-07-30] MEDS: FUROSEMIDE 40 MG/4 ML VIAL IV PUSH SCH ×3 (09:00→17:35)
[2017-07-30] MEDS: INSULIN DETEMIR 100 UNITS/ML VIAL SQ SCH ×2 (09:00→20:08)
[2017-07-30] MEDS: NIFEdipine 60 MG SUSTAINED RELEASE TAB PO SCH ×2 (09:00→20:14)
[2017-07-30] MEDS: CLOPIDOGREL 75 MG TAB PO SCH (10:21)
[2017-07-30] MEDS: CARVEDILOL 12.5 MG TAB PO SCH ×2 (10:22→20:09)
[2017-07-30] MEDS: ASPIRIN EC 81 MG TABEC PO SCH (10:22)
[2017-07-30] MEDS: DOCUSATE SODIUM 50 MG/SENNA 8.6 MG TAB PO SCH ×2 (10:22→20:09)
[2017-07-30] MEDS: FAMOTIDINE 20 MG TAB PO SCH (10:22)
[2017-07-30] MEDS: hydrALAZINE HCL 100 MG TAB PO SCH ×3 (10:22→17:36)
[2017-07-30] MEDS: ALLOPURINOL 100 MG TAB PO SCH (10:22)
[2017-07-30] MEDS: PARoxetine HCL 20 MG TAB PO SCH (10:35)
[2017-07-30] MEDS: predniSONE 20 MG TAB PO SCH ×2 (10:35→20:14)
[2017-07-30] MEDS: QUEtiapine FUMARATE 25 MG TAB PO SCH ×2 (10:36→20:09)
[2017-07-30 12:15] LABS: RENIN 18 ng/mL/h
[2017-07-30] MEDS ORDERED: MORPHINE SULFATE 4 MG/ML INJ IV PUSH ONE (12:15)
--- NOTE | 2017-07-30 13:12 | HHI.PR ---
Subjective Remarks ALERT UP IN CHAIR C/O PAIN IN SURGICAL SITE Objective Vital Signs Date Time Temp Pulse Resp B/P (MAP) Pulse Ox O2 Delivery O2 Flow Rate FiO2 07/30/17 11:09 98 Nasal Cannula 2.00 07/30/17 04:00 90 07/30/17 02:00 82 07/30/17 00:00 73 07/30/17 00:00 98.1 73 18 175/84 (114) 96 07/29/17 22:00 88 07/29/17 20:40 98 Nasal Cannula 2.00 07/29/17 20:00 89 07/29/17 20:00 98.5 89 15 189/88 (121) 98 07/29/17 19:00 98 Nasal Cannula 2.00 07/29/17 18:00 90 07/29/17 16:00 98 07/29/17 16:00 110 07/29/17 16:00 98.2 92 27 168/87 (114) 93 07/29/17 14:00 73 I/O 07/29/17 07/29/17 07/29/17 07/30/17 07/30/17 07/30/17 07:00 15:00 23:00 07:00 15:00 23:00 Intake Total 2080 ml 1200 ml Output Total 2000 ml 3700 ml Balance 80 ml -2500 ml Intake Oral 1080 ml 1200 ml IV Total 1000 ml Output Urine Total 2000 ml 3700 ml # Bowel Movements 1 Result Diagram: 07/29/17 0332 07/29/17 1823 Objective Remarks GENERAL: SKIN: Warm and dry. HEAD: Atraumatic. Normocephalic. EYES: Pupils equal and round. No scleral icterus. No injection or drainage. ENT: No nasal bleeding or discharge. Mucous membranes pink and moist. NECK: Trachea midline. No JVD. CARDIOVASCULAR: Regular rate and rhythm. RESPIRATORY: No accessory muscle use. Clear to auscultation. Breath sounds equal bilaterally. GASTROINTESTINAL: Abdomen soft, non-tender, nondistended. Hepatic and splenic margins not palpable. MUSCULOSKELETAL: Extremities without clubbing, cyanosis, or edema. No obvious deformities. NEUROLOGICAL: Awake and alert. No obvious cranial nerve deficits. Motor grossly within normal limits. Five out of 5 muscle strength in the arms and legs. Normal speech. PSYCHIATRIC: Appropriate mood and affect; insight and judgment normal. Assessment and Plan Assessment and Plan RESPIRATORY FAILURE MORBID OBESITY/JUDY PLAN O2 NEEDED BIPAP/SLEEP INCREASE ACTIVITY Timi Capellan MD Jul 30, 2017 13:12
[2017-07-30 13:57] LABS: HEMATOCRIT 27.2 % (39.0-51.0); HEMOGLOBIN 8.8 GM/DL (13.0-17.0); MEAN CELL VOLUME 81.8 FL (80.0-100.0); MEAN CORPUSCULAR HEMOGLOBIN 26.6 PG (27.0-34.0); MEAN CORPUSCULAR HGB CONC 32.5 % (32.0-36.0); MEAN PLATELET VOLUME 7.8 FL (7.0-11.0); PLATELET COUNT 255 TH/MM3 (150-450); RED BLOOD COUNT 3.32 MIL/MM3 (4.50-5.90); RED CELL DISTRIBUTION WIDTH 14.9 % (11.6-17.2)
[2017-07-30] MEDS: GABAPENTIN 300 MG CAP PO SCH ×2 (14:00→20:09)
--- NOTE | 2017-07-30 14:06 | HHI.NPPN ---
Subjective History of Present Illness Patient is a 47-year-old morbidly obese male diabetes, right Achilles tendon surgery, who has anasarca and states his right leg is very painful Review of Systems Cardiovascular Cardiac: Edema Musculoskeletal MS: Pain/Stiffness Objective Data Data Vital Signs Date Time Temp Pulse Resp B/P (MAP) Pulse Ox O2 Delivery O2 Flow Rate FiO2 07/30/17 11:09 98 Nasal Cannula 2.00 07/30/17 04:00 90 07/30/17 02:00 82 07/30/17 00:00 73 07/30/17 00:00 98.1 73 18 175/84 (114) 96 07/29/17 22:00 88 07/29/17 20:40 98 Nasal Cannula 2.00 07/29/17 20:00 89 07/29/17 20:00 98.5 89 15 189/88 (121) 98 07/29/17 19:00 98 Nasal Cannula 2.00 07/29/17 18:00 90 07/29/17 16:00 98 07/29/17 16:00 110 07/29/17 16:00 98.2 92 27 168/87 (114) 93 07/29/17 14:00 73 -: 07/30/17 1315 07/29/17 1823 Physical Exam General Appearance: Well Developed, Obese Throat Throat Exam: Oral Mucosa [place] & Moist Neck Neck Exam: Neck Supple Pulmonary Resp Exam: Clear Bilaterally, Breath Sounds Equal Cardiology CV Exam: Regular, Normal Sinus Rhythm Gastrointestinal/Abdomen GI Exam: Soft, Non-Tender, Bowel Sounds Present Extremeties Extremities Exam: Moderate Edema Assessment/Plan Problem List: (1) Hyperkalemia ICD Codes: E87.5 - Hyperkalemia Plan: Patient potassium level have improved last potassium was 5.1 He is on Lasix 80 mg twice daily Urine output is 3.7 L Continue to diurese Manage pain control Dr. Steele to follow (2) LISS (acute kidney injury) ICD Codes: N17.9 - Acute kidney failure, unspecified Status: Resolved Plan: Follow creatinine last one was 1.3 renal failure continues to be nonoliguric (3) Diabetes mellitus with hyperglycemia ICD Codes: E11.65 - Type 2 diabetes mellitus with hyperglycemia Status: Acute Plan: Blood glucose was high this is being monitored Keaton Stephenson MD Jul 30, 2017 14:06
[2017-07-30 14:30] LABS: BLOOD UREA NITROGEN 46 MG/DL (7-18); CALCIUM 8.3 MG/DL (8.5-10.1); CHLORIDE 96 MEQ/L (98-107); CREATININE 1.16 MG/DL (0.60-1.30); GLOMERULAR FILTRATION RATE 68 ML/MIN (>89); GLUCOSE,RANDOM 289 MG/DL (74-106); SODIUM (NA) 138 MEQ/L (136-145)
[2017-07-30] MEDS: GLIMEPIRIDE 4 MG TAB PO SCH ×2 (15:39→16:00)
--- NOTE | 2017-07-30 17:02 | HHI.PR ---
Subjective Remarks No new complaints. Objective Vitals Vital Signs Date Time Temp Pulse Resp B/P (MAP) Pulse Ox O2 Delivery O2 Flow Rate FiO2 07/30/17 11:09 98 Nasal Cannula 2.00 07/30/17 08:00 98 Nasal Cannula 2.00 07/30/17 04:00 90 07/30/17 02:00 82 07/30/17 00:00 73 07/30/17 00:00 98.1 73 18 175/84 (114) 96 07/29/17 22:00 88 07/29/17 20:40 98 Nasal Cannula 2.00 07/29/17 20:00 89 07/29/17 20:00 98.5 89 15 189/88 (121) 98 07/29/17 19:00 98 Nasal Cannula 2.00 07/29/17 18:00 90 Result Diagram: 07/30/17 1315 07/30/17 1315 Imaging Last Impressions Ankle X-Ray 07/24/17 1256 Signed Impressions: CONCLUSION: 1. An apparent focal cortical break of the calcaneus just posterior to the sub talar joint. This appears new. 2. Splint present. 3. Multifocal ankle and hindfoot osteoarthritis. 4. Accessory navicular and large os peroneum. Chest X-Ray 07/23/17 0600 Signed Impressions: CONCLUSION: Cardiomegaly. Ankle MRI 07/21/17 0000 Signed Impressions: CONCLUSION: 1. Severe tendinopathy of the distal Achilles tendon with full-thickness tear. Tiny intact strand of tendon present medially. There is also partial avulsion of the Achilles tendon at the insertion site on the calcaneus. 2. Severe marrow edema posterior calcaneus especially the lateral aspect, prob ably a small impaction fracture. 3. Mild contusion posterior talus. 4. Small ankle joint effusion. Extensive subcutaneous edema. Lung Scan-V Nuclear Medicine 07/19/17 1528 Signed Impressions: CONCLUSION: 1. Low probability for pulmonary embolism. Compensated cardiomegaly. If high c linical suspicion CT angiogram would be of benefit. Objective Remarks GENERAL: This is a Morbidly obese 47 year old male patient, in no apparent distress. CARDIOVASCULAR: Regular rate and rhythm RESPIRATORY: diminished, difficult to auscultate due to body habitus GASTROINTESTINAL: Abdomen soft, non-tender, nondistended. Normal active bowel sounds MUSCULOSKELETAL: Right lower extremity is wrapped in Ronnell bandage with a heel splint in place. NEURO: Alert & Oriented x4 to person, place, time, situation. Moves all ext x4 Procedures Open repair of right Achilles tendon rupture with flexor hallucis longus tendon transfer and gastrocnemius recession, right lower extremity on 07/24/[address] Murillo. A/P Problem List: (1) Hypercapnic respiratory failure ICD Codes: J96.92 - Respiratory failure, unspecified with hypercapnia Plan: Hypercapnic respiratory insufficiency - likely from his underlying sleep apnea - patient was not on bipap at home prior to admission COPD exacerbation - comgmt with Pulm Med, Cardiology - BiPAP at night - O2 - solumedrol changed to PO prednisone - duonebs prn - Head of bed elevated 30 - VQ scan (07/21) --> low probability 2-D echocardiogram 07/23/17: - The left ventricular systolic function is mildly reduced with an estimated ejection fraction in the range of 45- 50%. - Mild infero-posterior hypokinesis - Mild concentric left ventricular hypertrophy. - The left atrial size is moderately dilated. - Case d/w Cardiology, Dr. Hirsch, (07/27). - RHC completed (07/28) - class 2 Pulm HTN - PCW 23 - No Right heart strain, so sildenafil was stopped - continue Lasix 80mg IV BID for volume overload - observe clinical response Creatinine - Pt requesting more pain medication (07/30) - earlier this week, pt was over sedated d/t pain medications - can NOT give further narcotics as this would contribute to respiratory depression - Pt's behavior with me seems manipulative. - Although pt's blood pressure is elevated, his blood pressure appears to be chronically elevated. Pt's HR has NOT been increased today. - resume IV toradol scheduled x 24 hours - nursing reports that when there are no guests in the pt's room he is calmer and does NOT c/o pain. - limit visitor to one at a time. - DVT prophylaxis - supportive care (2) COPD exacerbation ICD Codes: J44.1 - Chronic obstructive pulmonary disease with (acute) exacerbation Plan: see above (3) Achilles rupture, right ICD Codes: S86.011A - Strain of right Achilles tendon, initial encounter Plan: Open repair of right Achilles tendon rupture with flexor hallucis longus tendon transfer and gastrocnemius recession, right lower extremity on 07/24/[address] Murillo. Per podiatry: Recommend rehab if patient unable to maintain non weight bearing status Patient cleared for DC per podiatry hydrocodone/acetaminophen 10/325 one tablet every 4 hours as needed pain. 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 gabapentin 300mg tid tizanidine 2mg po q12h 07/25 right popliteal nerve block (4) DM (diabetes mellitus) ICD Codes: E11.9 - Type 2 diabetes mellitus without complications Status: Chronic Plan: - home metformin held, elevated GFR - amaryl 4mg BID - levemir BID - SSI (5) CAD (coronary artery disease) ICD Codes: I25.10 - Atherosclerotic heart disease of [place] coronary artery without angina pectoris Plan: Patient with recent cardiac catheterization with PCI 06/17/17 Patient had a PE approximately 8 months ago and was on Coumadin for until the cardiac cauterization 06/17/17 After craterization patient's Coumadin was DC'd and he was started on Aspirin and Plavix Continue patient's aspirin 81 mg daily, Plavix 75 mg PO daily, Atorvastatin 40 mg PO QHS and Coreg BID (6) Anxiety and depression ICD Codes: F41.9 - Anxiety disorder, unspecified; F32.9 - Major depressive disorder, single episode, unspecified Plan: Continue home alprazolam 0.5 mg at night as needed Continue home paroxetine 20 mg p.o. daily for depression (7) Morbid obesity ICD Codes: E66.01 - Morbid (severe) obesity due to excess calories Plan: Patient to follow up with PCP for further weight loss and possible referral to bariatric surgery (8) Hyperkalemia ICD Codes: E87.5 - Hyperkalemia Plan: - Pt still with hyperkalemia despite multiple doses of kayexalate - K 6.0, 5.9, 5.2 (07/27) - K 5.2, 5.2, 5.3 (07/28) - calcium gluconate// insulin with D50 given 07/28 - K 5.1 (07/29) - K 4.7 (07/30) - r/o hypoaldosteronism - obtain ACTH, serum cortisol, renin, serum aldosterone. - These are send out labs. I do NOT expect the results prior to August 01 - Case d/w Dr. Steele - urine potassium ordered, await results (9) Hypertension ICD Codes: I10 - Essential (primary) hypertension Status: Chronic Plan: - hydralazine 100mg TID - procardia xl 60mg BID - coreg 37.5mg BID - isosorbide 10mg q8h - labetalol prn - pain, narcotic dependency, and anxiety may be contributing - would prefer to minimize narcotics/benzodiazepines d/t JUDY and respiratory suppression Problem Qualifiers (1) DM (diabetes mellitus): Qualified Codes: E11.8 - Type 2 diabetes mellitus with unspecified complications; Z79.4 - residential (current) use of insulin (2) Hypertension: Qualified Codes: I10 - Essential (primary) hypertension Frank Cordero DO Jul 30, 2017 17:02
[2017-07-30] MEDS: KETOROLAC TROMETHAMINE 60 MG/2 ML (IM) VIAL IM SCH (18:19)
[2017-07-30] MEDS: ATORVASTATIN 40 MG TAB PO SCH (20:09)
[2017-07-30] MEDS: LABETALOL HCL 100 MG/20 ML VIAL IV PUSH PRN (21:00)
[2017-07-31] VITALS (10 sets, daily range): BP systolic 124–190; BP diastolic 76–97; PULSE 72–98; RESP 16–21; TEMP 97.3–98.6; O2SAT 72–99
[2017-07-31] MEDS ORDERED: cloNIDine HCL 0.1 MG TAB PO PRN (00:15)
[2017-07-31] MEDS ORDERED: ENALAPRILAT 1.25 MG/ML VIAL IV PUSH PRN (00:15)
[2017-07-31] MEDS: ACETAMINOPHEN/HYDROcodone 325 MG/10 MG TAB PO PRN ×3 (00:44→09:07)
[2017-07-31] MEDS: ISOSORBIDE DINITRATE 10 MG TAB PO SCH ×3 (01:33→17:30)
[2017-07-31] MEDS: CHLORHEXIDINE GLUCONATE 2 % 1 PACK (2 CLOTHS) TOP SCH ×2 (01:33→20:46)
[2017-07-31 05:12] LABS: HEMATOCRIT 30.1 % (39.0-51.0); HEMOGLOBIN 9.6 GM/DL (13.0-17.0); MEAN CELL VOLUME 81.3 FL (80.0-100.0); MEAN PLATELET VOLUME 7.6 FL (7.0-11.0); PLATELET COUNT 277 TH/MM3 (150-450); RED CELL DISTRIBUTION WIDTH 14.7 % (11.6-17.2); WHITE BLOOD COUNT 11.5 TH/MM3 (4.0-11.0)
[2017-07-31 05:40] LABS: BICARBONATE 32.3 MEQ/L (21.0-32.0); CALCIUM 8.2 MG/DL (8.5-10.1); CREATININE 1.09 MG/DL (0.60-1.30)
[2017-07-31] MEDS: GABAPENTIN 300 MG CAP PO SCH ×3 (05:45→20:45)
[2017-07-31] MEDS: GLIMEPIRIDE 4 MG TAB PO SCH ×2 (05:45→16:19)
[2017-07-31] MEDS: KETOROLAC TROMETHAMINE 60 MG/2 ML (IM) VIAL IM SCH ×2 (05:45)
[2017-07-31] MEDS: INSULIN ASPART SUPPLEMENTAL SCALE SQ SCH ×4 (09:03→20:46)
[2017-07-31] MEDS: ENOXAPARIN SODIUM 40 MG/0.4 ML SYRINGE SQ SCH ×2 (09:03→20:44)
[2017-07-31] MEDS: INSULIN DETEMIR 100 UNITS/ML VIAL SQ SCH ×2 (09:03→20:46)
[2017-07-31] MEDS: FUROSEMIDE 40 MG/4 ML VIAL IV PUSH SCH ×2 (09:04→17:28)
[2017-07-31] MEDS: CARVEDILOL 12.5 MG TAB PO SCH ×2 (09:06→20:44)
[2017-07-31] MEDS: QUEtiapine FUMARATE 25 MG TAB PO SCH ×2 (09:06→20:45)
[2017-07-31] MEDS: PARoxetine HCL 20 MG TAB PO SCH (09:06)
[2017-07-31] MEDS: DOCUSATE SODIUM 50 MG/SENNA 8.6 MG TAB PO SCH ×2 (09:10→20:55)
[2017-07-31] MEDS: FAMOTIDINE 20 MG TAB PO SCH (09:10)
[2017-07-31] MEDS: ASPIRIN EC 81 MG TABEC PO SCH (09:10)
[2017-07-31] MEDS: hydrALAZINE HCL 100 MG TAB PO SCH ×3 (09:10→17:30)
[2017-07-31] MEDS: ALLOPURINOL 100 MG TAB PO SCH (09:11)
[2017-07-31] MEDS: CLOPIDOGREL 75 MG TAB PO SCH (09:11)
[2017-07-31] MEDS: NIFEdipine 60 MG SUSTAINED RELEASE TAB PO SCH ×2 (09:11→20:45)
[2017-07-31] MEDS: predniSONE 20 MG TAB PO SCH ×2 (09:11→20:44)
[2017-07-31] MEDS: LOSARTAN 50 MG TAB PO SCH ×2 (10:12→20:44)
[2017-07-31 10:32] LABS: HEMOGLOBIN A1C 9.8 % (4.3-6.0)
[2017-07-31] MEDS: ACETAMINOPHEN 1000 MG/100 ML 100 ML IV SCH ×2 (11:19→18:40)
[2017-07-31] MEDS: ACETAMINOPHEN/HYDROcodone 325 MG/5 MG TAB PO PRN ×3 (13:19→23:13)
--- NOTE | 2017-07-31 13:39 | HHI.NPPN ---
Subjective History of Present Illness Patient is a 47-year-old morbidly obese male diabetes, right Achilles tendon surgery, who has anasarca and states his right leg is very painful Review of Systems Cardiovascular Cardiac: Edema Musculoskeletal MS: Pain/Stiffness Objective Data Data Vital Signs Date Time Temp Pulse Resp B/P (MAP) Pulse Ox O2 Delivery O2 Flow Rate FiO2 07/31/17 13:01 97.4 73 17 124/76 (92) 94 07/31/17 09:17 97.3 98 19 178/91 (120) 97 07/31/17 08:00 Room Air 07/31/17 04:00 98.5 92 20 190/96 (127) 95 07/31/17 01:32 98.1 79 21 173/97 (122) 97 07/31/17 00:00 98.6 86 21 158/84 (108) 72 07/31/17 00:00 72 07/30/17 22:00 96 07/30/17 20:00 98.5 86 14 190/84 (119) 96 07/30/17 20:00 86 07/30/17 19:00 97 Room Air 07/30/17 17:00 98.2 75 18 175/85 (115) 98 -: 07/31/17 0451 07/31/17 0451 Physical Exam General Appearance: Well Developed, Obese Throat Throat Exam: Oral Mucosa [place] & Moist Neck Neck Exam: Neck Supple Pulmonary Resp Exam: Clear Bilaterally, Breath Sounds Equal Cardiology CV Exam: Regular, Normal Sinus Rhythm Gastrointestinal/Abdomen GI Exam: Soft, Non-Tender, Bowel Sounds Present Extremeties Extremities Exam: Moderate Edema Assessment/Plan Problem List: (1) Hyperkalemia ICD Codes: E87.5 - Hyperkalemia Plan: Patient potassium level have improved last potassium was 5.1 He is on Lasix 80 mg twice daily Urine output is 6.5 L Continue to diurese s/p Achilles tendon repair Manage pain control Dr. Steele to follow (2) LISS (acute kidney injury) ICD Codes: N17.9 - Acute kidney failure, unspecified Status: Resolved Plan: Follow creatinine last one was 1.3 renal failure continues to be nonoliguric (3) Diabetes mellitus with hyperglycemia ICD Codes: E11.65 - Type 2 diabetes mellitus with hyperglycemia Status: Acute Plan: Blood glucose was high this is being monitored Keaton Stephenson MD Jul 31, 2017 13:39
--- NOTE | 2017-07-31 14:30 | HHI.PR ---
Subjective Remarks Pt again seen together with Ruth Ann Mathias PA-C. Pt had NO new complaints. Objective Vitals Vital Signs Date Time Temp Pulse Resp B/P (MAP) Pulse Ox O2 Delivery O2 Flow Rate FiO2 07/31/17 13:01 97.4 73 17 124/76 (92) 94 07/31/17 09:17 97.3 98 19 178/91 (120) 97 07/31/17 09:00 98 21 07/31/17 08:00 Room Air 07/31/17 04:00 98.5 92 20 190/96 (127) 95 07/31/17 01:32 98.1 79 21 173/97 (122) 97 07/31/17 00:00 98.6 86 21 158/84 (108) 72 07/31/17 00:00 72 07/30/17 22:00 96 07/30/17 20:00 98.5 86 14 190/84 (119) 96 07/30/17 20:00 86 07/30/17 19:00 97 Room Air 07/30/17 17:00 98.2 75 18 175/85 (115) 98 Result Diagram: 07/31/17 0451 07/31/17 0451 Imaging Last Impressions Ankle X-Ray 07/24/17 1256 Signed Impressions: CONCLUSION: 1. An apparent focal cortical break of the calcaneus just posterior to the sub talar joint. This appears new. 2. Splint present. 3. Multifocal ankle and hindfoot osteoarthritis. 4. Accessory navicular and large os peroneum. Chest X-Ray 07/23/17 0600 Signed Impressions: CONCLUSION: Cardiomegaly. Ankle MRI 07/21/17 0000 Signed Impressions: CONCLUSION: 1. Severe tendinopathy of the distal Achilles tendon with full-thickness tear. Tiny intact strand of tendon present medially. There is also partial avulsion of the Achilles tendon at the insertion site on the calcaneus. 2. Severe marrow edema posterior calcaneus especially the lateral aspect, prob ably a small impaction fracture. 3. Mild contusion posterior talus. 4. Small ankle joint effusion. Extensive subcutaneous edema. Lung Scan-V Nuclear Medicine 07/19/17 1528 Signed Impressions: CONCLUSION: 1. Low probability for pulmonary embolism. Compensated cardiomegaly. If high c linical suspicion CT angiogram would be of benefit. Objective Remarks GENERAL: This is a Morbidly obese 47 year old male patient, in no apparent distress. CARDIOVASCULAR: Regular rate and rhythm RESPIRATORY: clear x b/l GASTROINTESTINAL: Abdomen soft, non-tender, nondistended. Normal active bowel sounds MUSCULOSKELETAL: Right lower extremity is wrapped in Ronnell bandage with a heel splint in place. NEURO: Alert & Oriented x4 to person, place, time, situation. Moves all ext x4 Procedures Open repair of right Achilles tendon rupture with flexor hallucis longus tendon transfer and gastrocnemius recession, right lower extremity on 07/24/[address] Murillo. A/P Problem List: (1) Hypercapnic respiratory failure ICD Codes: J96.92 - Respiratory failure, unspecified with hypercapnia Plan: Hypercapnic respiratory insufficiency - likely from his underlying sleep apnea - patient was not on bipap at home prior to admission COPD exacerbation - comgmt with Pulm Med, Cardiology - BiPAP at night - O2 - solumedrol changed to PO prednisone - duonebs prn - Head of bed elevated 30 - VQ scan (07/21) --> low probability 2-D echocardiogram 07/23/17: - The left ventricular systolic function is mildly reduced with an estimated ejection fraction in the range of 45- 50%. - Mild infero-posterior hypokinesis - Mild concentric left ventricular hypertrophy. - The left atrial size is moderately dilated. - Case d/w Cardiology, Dr. Hirsch, (07/27). - RHC completed (07/28) - class 2 Pulm HTN - PCW 23 - No Right heart strain, so sildenafil was stopped - continue Lasix 80mg IV BID for volume overload - observe clinical response Creatinine - norco 5/325mg q6h prn pain - anticipate d/c to home with HHC/PT vs SNF in next 2-3 days - DVT prophylaxis - supportive care (2) COPD exacerbation ICD Codes: J44.1 - Chronic obstructive pulmonary disease with (acute) exacerbation Plan: see above (3) Achilles rupture, right ICD Codes: S86.011A - Strain of right Achilles tendon, initial encounter Plan: Open repair of right Achilles tendon rupture with flexor hallucis longus tendon transfer and gastrocnemius recession, right lower extremity on 07/24/[address] Murillo. Per podiatry: Recommend rehab if patient unable to maintain non weight bearing status Patient cleared for DC per podiatry - norco 5/325mg q6h prn - gabapentin 300mg tid - tizanidine 2mg po q12h - Case d/w Podiatry, Dr. Hull (07/31). - Pt had dressing change 07/31. Pt healing well. - Per podiatry, pt will need to be strict non-weight bearing for 6-8 weeks. - Pt will need SNF upon discharge. (4) DM (diabetes mellitus) ICD Codes: E11.9 - Type 2 diabetes mellitus without complications Status: Chronic Plan: - home metformin held, elevated GFR - amaryl 4mg BID - increase levemir to 20units BID - SSI (5) CAD (coronary artery disease) ICD Codes: I25.10 - Atherosclerotic heart disease of [place] coronary artery without angina pectoris Plan: Patient with recent cardiac catheterization with PCI 06/17/17 Patient had a PE approximately 8 months ago and was on Coumadin for until the cardiac cauterization 06/17/17 After craterization patient's Coumadin was DC'd and he was started on Aspirin and Plavix Continue patient's aspirin 81 mg daily, Plavix 75 mg PO daily, Atorvastatin 40 mg PO QHS and Coreg BID (6) Anxiety and depression ICD Codes: F41.9 - Anxiety disorder, unspecified; F32.9 - Major depressive disorder, single episode, unspecified Plan: Continue home alprazolam 0.5 mg at night as needed Continue home paroxetine 20 mg p.o. daily for depression - Seroquel (7) Morbid obesity ICD Codes: E66.01 - Morbid (severe) obesity due to excess calories Plan: Patient to follow up with PCP for further weight loss and possible referral to bariatric surgery (8) Hyperkalemia ICD Codes: E87.5 - Hyperkalemia Plan: - Pt still with hyperkalemia despite multiple doses of kayexalate - K 6.0, 5.9, 5.2 (07/27) - K 5.2, 5.2, 5.3 (07/28) - calcium gluconate// insulin with D50 given 07/28 - K 5.1 (07/29) - K 4.7 (07/30) - K 5.0 (07/31) - r/o hypoaldosteronism - obtain ACTH, serum cortisol, renin, serum aldosterone. - These are send out labs. I do NOT expect the results prior to August 01 - Case d/w Dr. Steele - urine potassium ordered, await results (9) Hypertension ICD Codes: I10 - Essential (primary) hypertension Status: Chronic Plan: - hydralazine 100mg TID - procardia xl 60mg BID - coreg 37.5mg BID - isosorbide 10mg q8h - labetalol prn - pain, narcotic dependency, and anxiety may be contributing - would prefer to minimize narcotics/benzodiazepines d/t JUDY and respiratory suppression Problem Qualifiers (1) DM (diabetes mellitus): Qualified Codes: E11.8 - Type 2 diabetes mellitus with unspecified complications; Z79.4 - buttermaker (current) use of insulin (2) Hypertension: Qualified Codes: I10 - Essential (primary) hypertension Frank Cordero DO Jul 31, 2017 14:30
--- NOTE | 2017-07-31 15:05 | HHI.PR ---
Subjective Remarks Patient seen bedside. Resting comfortably. States he did not realize this would be as painful as it was. His pain is well controlled at this moment. Objective Vital Signs Date Time Temp Pulse Resp B/P (MAP) Pulse Ox O2 Delivery O2 Flow Rate FiO2 07/31/17 13:01 97.4 73 17 124/76 (92) 94 07/31/17 09:17 97.3 98 19 178/91 (120) 97 07/31/17 09:00 98 21 07/31/17 08:00 Room Air 07/31/17 04:00 98.5 92 20 190/96 (127) 95 07/31/17 01:32 98.1 79 21 173/97 (122) 97 07/31/17 00:00 98.6 86 21 158/84 (108) 72 07/31/17 00:00 72 07/30/17 22:00 96 07/30/17 20:00 98.5 86 14 190/84 (119) 96 07/30/17 20:00 86 07/30/17 19:00 97 Room Air 07/30/17 17:00 98.2 75 18 175/85 (115) 98 I/O 07/30/17 07/30/17 07/30/17 07/31/17 07/31/17 07/31/17 07:00 15:00 23:00 07:00 15:00 23:00 Intake Total 1000 ml 480 ml Output Total 4500 ml 2000 ml Balance -3500 ml -1520 ml Intake Oral 1000 ml 480 ml Output Urine Total 4500 ml 2000 ml # Bowel Movements 0 0 Result Diagram: 07/31/17 0451 07/31/17 0451 Imaging Last Impressions Ankle X-Ray 07/24/17 1256 Signed Impressions: CONCLUSION: 1. An apparent focal cortical break of the calcaneus just posterior to the sub talar joint. This appears new. 2. Splint present. 3. Multifocal ankle and hindfoot osteoarthritis. 4. Accessory navicular and large os peroneum. Chest X-Ray 07/23/17 0600 Signed Impressions: CONCLUSION: Cardiomegaly. Ankle MRI 07/21/17 0000 Signed Impressions: CONCLUSION: 1. Severe tendinopathy of the distal Achilles tendon with full-thickness tear. Tiny intact strand of tendon present medially. There is also partial avulsion of the Achilles tendon at the insertion site on the calcaneus. 2. Severe marrow edema posterior calcaneus especially the lateral aspect, prob ably a small impaction fracture. 3. Mild contusion posterior talus. 4. Small ankle joint effusion. Extensive subcutaneous edema. Lung Scan-V Nuclear Medicine 07/19/17 0645 Signed Impressions: CONCLUSION: 1. Low probability for pulmonary embolism. Compensated cardiomegaly. If high c linical suspicion CT angiogram would be of benefit. Procedures Status post surgical intervention 07/24/[address] Murillo 1. Open repair of right achilles tendon rupture 2. Flexor hallucis longus tendon transfer right 3. Gastrocnemius recession right Other Results Microbiology Date/Time Source Procedure Growth Status 07/21/17 03:42 Blood Peripheral Aerobic Blood Culture - Final NO GROWTH IN 5 DAYS Complete 07/21/17 03:42 Blood Peripheral Anaerobic Blood Culture - Final NO GROWTH IN 5 DAYS Complete 07/20/17 10:00 Urine Catheterized Urine Legionella Antigen - Final PRESUMPTIVE NEGATIVE FOR LEGIONELLA P... Complete 07/20/17 10:00 Urine Catheterized Urine Streptococcus pneumoniae Antigen (M - Final PRESUMPTIVE NEGATIVE FOR STREPTOCOCCU... Complete Objective Remarks Incision to Achilles, posterior leg with sutures intact and skin well coapted. No periwound erythema noted. Ecchymosis noted to proximal aspect of incision. No clinical signs of infection. Medications and IVs Current Medications Medications (Trade) Dose Ordered Sig/Nara Route Start Time Stop Time Status Last Admin ([facility] [place] [facility] Information) 1 Q361D XX 07/19/17 21:45 07/19/17 23:46 (Chlorhexidine 2% Cloth) Taper DAILY@04 TOP 07/20/17 04:00 07/16/18 03:59 07/26/17 03:36 (Chlorhexidine 2% Cloth) 3 pack UNSCH PRN TOP 07/19/17 21:45 (Ely-Colace) 1 tab BID PO 07/20/17 09:00 07/31/17 09:10 (Milk Of Magnesia Liq) 30 ml Q12H PRN PO 07/19/17 21:45 (Senokot) 17.2 mg Q12H PRN PO 07/19/17 21:45 07/24/17 12:16 (Dulcolax Supp) 10 mg DAILY PRN RECTAL 07/19/17 21:45 (Lactulose Liq) 30 ml DAILY PRN PO 07/19/17 21:45 (Zyloprim) 100 mg DAILY PO 07/20/17 09:00 07/31/17 09:11 (Ecotrin Ec) 81 mg DAILY PO 07/20/17 09:00 07/31/17 09:10 (Lipitor) 40 mg HS PO 07/20/17 21:00 07/30/17 20:09 (Plavix) 75 mg DAILY PO 07/20/17 09:00 07/31/17 09:11 (Paxil) 20 mg DAILY PO 07/20/17 09:00 07/31/17 09:06 (Albuterol Neb) 2.5 mg Q2HR NEB PRN NEB 07/20/17 07:30 07/28/17 16:02 (Pepcid) 20 mg DAILY PO 07/20/17 09:00 07/31/17 09:10 (D50w (Vial) Inj) 25 ml UNSCH PRN IV PUSH 07/21/17 04:00 07/28/17 08:48 (Tylenol) 650 mg Q6HR PRN PO 07/21/17 08:00 (Apresoline) 100 mg TID PO 07/22/17 09:00 07/31/17 13:19 (Xanax) 0.5 mg HS PRN PO 07/22/17 07:00 07/29/17 21:45 (Nitroglycerin 2% Oint) 2 inch Q6HR PRN TOPICAL 07/22/17 07:15 07/24/17 13:24 (Isordil) 10 mg Q8H PO 07/22/17 18:00 07/31/17 09:07 (Trandate Inj) 10 mg Q1HR PRN IV PUSH 07/24/17 13:45 07/30/17 21:00 (Coreg) 37.5 mg BID PO 07/24/17 21:00 07/31/17 09:06 (Narcan Inj) 0.4 mg UNSCH PRN IV PUSH 07/24/17 14:30 (Zanaflex) 2 mg Q12HR PO 07/25/17 09:00 07/31/17 09:08 (Pill Splitter) 1 ea UNSCH PRN OTHER 07/25/17 08:15 (Neurontin) 300 mg Q8HR PO 07/26/17 22:00 07/31/17 13:19 (Narcan Inj) 0.4 mg UNSCH PRN IV PUSH 07/26/17 14:00 (NovoLOG SUPPLEMENTAL SCALE) 1 ACHS SLIDING SCALE SQ 07/28/17 12:00 07/31/17 12:18 (Procardia Xl) 60 mg Q12HR PO 07/28/17 21:00 07/31/17 09:11 (SEROquel) 50 mg BID PO 07/28/17 21:00 07/31/17 09:06 (Lovenox Inj) 40 mg Q12H SQ 07/28/17 20:00 07/31/17 09:03 (Deltasone) 20 mg BID PO 07/30/17 09:00 07/31/17 09:11 (Lasix Inj) 80 mg BID@ IV PUSH 07/30/17 08:00 07/31/17 09:04 (Amaryl) 4 mg BIDAC PO 07/29/17 17:00 07/31/17 05:45 (Catapres) 0.1 mg Q8H PRN PO 07/31/17 00:15 (Levemir Inj) 20 units BID SQ 07/31/17 21:00 (Cozaar) 50 mg Q12HR PO 07/31/17 09:30 07/31/17 10:12 Acetaminophen 100 ml @ 400 mls/hr Q8H IV 07/31/17 11:00 07/31/17 11:19 ([place] 5-325 Mg) 1 tab Q6H PRN PO 07/31/17 15:00 UNV Assessment and Plan Assessment and Plan 47 year old male s/p 1. Open repair of right achilles tendon rupture 2. Flexor hallucis longus tendon transfer right 3. Gastrocnemius recession right Patient examined and evaluated with all questions answered Dressing change to right lower extremity, incision looking great no clinical signs of infection Patient OK to DC per podiatry Patient to follow up with Dr. Murillo Recommend rehab if patient unable to maintain non weight bearing status Do not change dressing, dressing to be changed by D.P.M. if patient still in house within 1 week Anticoagulation post op Josie Hull DPM Jul 31, 2017 15:05
[2017-07-31] MEDS ORDERED: WHEEMIS3 (15:14)
--- NOTE | 2017-07-31 16:55 | HHI.PR ---
Subjective Remarks ALERT UP IN CHAIR C/O PAIN IN SURGICAL SITE Objective Vital Signs Date Time Temp Pulse Resp B/P (MAP) Pulse Ox O2 Delivery O2 Flow Rate FiO2 07/31/17 16:26 97.6 86 16 157/79 (105) 97 07/31/17 13:01 97.4 73 17 124/76 (92) 94 07/31/17 09:17 97.3 98 19 178/91 (120) 97 07/31/17 09:00 98 21 07/31/17 08:00 Room Air 07/31/17 04:00 98.5 92 20 190/96 (127) 95 07/31/17 01:32 98.1 79 21 173/97 (122) 97 07/31/17 00:00 98.6 86 21 158/84 (108) 72 07/31/17 00:00 72 07/30/17 22:00 96 07/30/17 20:00 98.5 86 14 190/84 (119) 96 07/30/17 20:00 86 07/30/17 19:00 97 Room Air 07/30/17 17:00 98.2 75 18 175/85 (115) 98 I/O 07/30/17 07/30/17 07/30/17 07/31/17 07/31/17 07/31/17 06:59 14:59 22:59 06:59 14:59 22:59 Intake Total 1000 ml 480 ml Output Total 4500 ml 2000 ml Balance -3500 ml -1520 ml Intake Oral 1000 ml 480 ml Output Urine Total 4500 ml 2000 ml # Bowel Movements 0 0 Result Diagram: 07/31/17 04507/31/17 045 Procedures Status post surgical intervention 07/24/[address] Murillo 1. Open repair of right achilles tendon rupture 2. Flexor hallucis longus tendon transfer right 3. Gastrocnemius recession right Objective Remarks GENERAL: SKIN: Warm and dry. HEAD: Atraumatic. Normocephalic. EYES: Pupils equal and round. No scleral icterus. No injection or drainage. ENT: No nasal bleeding or discharge. Mucous membranes pink and moist. NECK: Trachea midline. No JVD. CARDIOVASCULAR: Regular rate and rhythm. RESPIRATORY: No accessory muscle use. Clear to auscultation. Breath sounds equal bilaterally. GASTROINTESTINAL: Abdomen soft, non-tender, nondistended. Hepatic and splenic margins not palpable. MUSCULOSKELETAL: Extremities without clubbing, cyanosis, or edema. No obvious deformities. NEUROLOGICAL: Awake and alert. No obvious cranial nerve deficits. Motor grossly within normal limits. Five out of 5 muscle strength in the arms and legs. Normal speech. PSYCHIATRIC: Appropriate mood and affect; insight and judgment normal. Assessment and Plan Assessment and Plan RESPIRATORY FAILURE MORBID OBESITY/JUDY PLAN O2 NEEDED BIPAP/SLEEP INCREASE ACTIVITY Timi Capellan MD Jul 31, 2017 16:55
[2017-07-31] MEDS: ATORVASTATIN 40 MG TAB PO SCH (20:45)
[2017-07-31] MEDS: ALPRAZolam 0.5 MG TAB PO PRN (22:18)
[2017-08-01] VITALS: BP 186/88; PULSE 77; RESP 20; TEMP 97.9; O2SAT 97
[2017-08-01] MEDS: ACETAMINOPHEN 1000 MG/100 ML 100 ML IV SCH (02:34)
[2017-08-01] MEDS: ISOSORBIDE DINITRATE 10 MG TAB PO SCH ×3 (02:34→17:42)
[2017-08-01 04:00] VITALS: BP 154/83; PULSE 79; RESP 20; TEMP 98; O2SAT 99
[2017-08-01] MEDS: ACETAMINOPHEN/HYDROcodone 325 MG/5 MG TAB PO PRN ×4 (04:34→23:10)
[2017-08-01] MEDS: GABAPENTIN 300 MG CAP PO SCH ×3 (04:34→20:40)
[2017-08-01] MEDS: GLIMEPIRIDE 4 MG TAB PO SCH ×2 (04:34→16:00)
[2017-08-01 08:00] VITALS: BP 177/86; PULSE 88; RESP 16; TEMP 97.2; O2SAT 96
[2017-08-01] MEDS: INSULIN ASPART SUPPLEMENTAL SCALE SQ SCH ×4 (08:00→20:35)
[2017-08-01] MEDS: ENOXAPARIN SODIUM 40 MG/0.4 ML SYRINGE SQ SCH ×2 (08:27→20:35)
[2017-08-01] MEDS: FUROSEMIDE 40 MG/4 ML VIAL IV PUSH SCH ×2 (08:28→17:44)
[2017-08-01] MEDS: QUEtiapine FUMARATE 25 MG TAB PO SCH ×2 (08:29→20:40)
[2017-08-01] MEDS: ALLOPURINOL 100 MG TAB PO SCH (08:29)
[2017-08-01] MEDS: predniSONE 20 MG TAB PO SCH (08:29)
[2017-08-01] MEDS: ASPIRIN EC 81 MG TABEC PO SCH (08:29)
[2017-08-01] MEDS: hydrALAZINE HCL 100 MG TAB PO SCH ×3 (08:30→17:42)
[2017-08-01] MEDS: DOCUSATE SODIUM 50 MG/SENNA 8.6 MG TAB PO SCH ×2 (08:30→20:40)
[2017-08-01] MEDS: LOSARTAN 50 MG TAB PO SCH ×2 (08:30→20:39)
[2017-08-01] MEDS: PARoxetine HCL 20 MG TAB PO SCH (08:30)
[2017-08-01] MEDS: FAMOTIDINE 20 MG TAB PO SCH (08:30)
[2017-08-01] MEDS: INSULIN DETEMIR 100 UNITS/ML VIAL SQ SCH ×2 (08:31→20:36)
[2017-08-01] MEDS: CLOPIDOGREL 75 MG TAB PO SCH (08:31)
[2017-08-01] MEDS: NIFEdipine 60 MG SUSTAINED RELEASE TAB PO SCH ×2 (08:31→20:37)
[2017-08-01] MEDS: CARVEDILOL 12.5 MG TAB PO SCH ×2 (08:31→20:38)
--- NOTE | 2017-08-01 10:04 | HHI.NPPN ---
Subjective History of Present Illness Patient is a 47-year-old morbidly obese male diabetes, right Achilles tendon surgery, who has anasarca and states his right leg is very painful Additional Remarks Up out of bed in chair. Reports neuropathy in lower extremities. (Beth Bolanos) Review of Systems Respiratory Respiratory Remarks Denies Shortness of breath (Beth Bolanos) Cardiovascular Cardiac: Edema (Beth Bolanos) Musculoskeletal MS: Pain/Stiffness (Beth Bolanos) Objective Data Data Vital Signs Date Time Temp Pulse Resp B/P (MAP) Pulse Ox O2 Delivery O2 Flow Rate FiO2 08/01/17 08:00 97.2 88 16 177/86 (116) 96 08/01/17 04:00 98.0 79 20 154/83 (106) 99 08/01/17 00:00 97.9 77 20 186/88 (120) 97 07/31/17 21:14 99 Nasal Cannula 21 07/31/17 20:00 97.9 98 20 189/95 (126) 99 07/31/17 19:41 88 07/31/17 16:26 97.6 86 16 157/79 (105) 97 07/31/17 13:01 97.4 73 17 124/76 (92) 94 (Beth Bolanos) -: 07/31/17 0451 07/31/17 0451 Physical Exam General Appearance: Well Developed, Obese (Beth Bolanos) Throat Throat Exam: Oral Mucosa [place] & Moist (Beth Bolanos) Neck Neck Exam: Neck Supple (Beth Bolanos) Pulmonary Resp Exam: Clear Bilaterally, Breath Sounds Equal (Beth Bolanos) Cardiology CV Exam: Regular, Normal Sinus Rhythm (Beth Bolanos) Gastrointestinal/Abdomen GI Exam: Soft, Non-Tender, Bowel Sounds Present (Beth Bolanos) Extremeties Extremities Exam: Moderate Edema (Beth Bolanos) Assessment/Plan Problem List: (1) Hyperkalemia ICD Codes: E87.5 - Hyperkalemia Plan: Patient potassium level have improved last potassium at 4.7 He is on Lasix 80 mg twice daily edema is improving. Continue to diurese s/p Achilles tendon repair Manage pain control (2) LISS (acute kidney injury) ICD Codes: N17.9 - Acute kidney failure, unspecified Status: Resolved Plan: Resolved Creatinine at 1.17 (3) Diabetes mellitus with hyperglycemia ICD Codes: E11.65 - Type 2 diabetes mellitus with hyperglycemia Status: Acute Plan: Blood glucose was high this is being monitored (Beth Bolanos) Problem List: (1) Hyperkalemia ICD Codes: E87.5 - Hyperkalemia Plan: Patient potassium level have improved last potassium at 4.7 He is on Lasix 80 mg twice daily edema is improving. Continue to diurese s/p Achilles tendon repair Manage pain control. Patient seen and examined, agree with above. K is better, to continue low K diet. (2) LISS (acute kidney injury) ICD Codes: N17.9 - Acute kidney failure, unspecified Status: Resolved Plan: Resolved Creatinine at 1.17 (3) Diabetes mellitus with hyperglycemia ICD Codes: E11.65 - Type 2 diabetes mellitus with hyperglycemia Status: Acute Plan: Blood glucose was high this is being monitored (Kristi Steele MD) Beth Bolanos Aug 01, 2017 10:03 Kristi Steele MD Aug 02, 2017 00:32
[2017-08-01 10:06] LABS: HEMATOCRIT 32.6 % (39.0-51.0); HEMOGLOBIN 10.5 GM/DL (13.0-17.0); MEAN CELL VOLUME 80.9 FL (80.0-100.0); MEAN CORPUSCULAR HEMOGLOBIN 26.1 PG (27.0-34.0); MEAN CORPUSCULAR HGB CONC 32.2 % (32.0-36.0); MEAN PLATELET VOLUME 7.9 FL (7.0-11.0); PLATELET COUNT 342 TH/MM3 (150-450); RED BLOOD COUNT 4.03 MIL/MM3 (4.50-5.90); RED CELL DISTRIBUTION WIDTH 14.7 % (11.6-17.2); WHITE BLOOD COUNT 12.8 TH/MM3 (4.0-11.0)
--- NOTE | 2017-08-01 10:20 | HHI.PR ---
Subjective Remarks Patient sitting up in chair reports feeling better today, per patient swelling improving and he is able to get around more Objective Vitals Vital Signs Date Time Temp Pulse Resp B/P (MAP) Pulse Ox O2 Delivery O2 Flow Rate FiO2 08/01/17 08:00 97.2 88 16 177/86 (116) 96 08/01/17 04:00 98.0 79 20 154/83 (106) 99 08/01/17 00:00 97.9 77 20 186/88 (120) 97 07/31/17 21:14 99 Nasal Cannula 21 07/31/17 20:00 97.9 98 20 189/95 (126) 99 07/31/17 19:41 88 07/31/17 16:26 97.6 86 16 157/79 (105) 97 07/31/17 13:01 97.4 73 17 124/76 (92) 94 Result Diagram: 08/01/17 0845 07/31/17 0451 Other Results Laboratory Tests Test 07/29/17 18:23 07/30/17 13:15 07/31/17 04:51 08/01/17 08:45 Random Glucose 458 MG/DL 289 MG/DL 205 MG/DL White Blood Count 10.0 TH/MM3 11.5 TH/MM3 12.8 TH/MM3 Red Blood Count 3.32 MIL/MM3 3.70 MIL/MM3 4.03 MIL/MM3 Hemoglobin 8.8 GM/DL 9.6 GM/DL 10.5 GM/DL Hematocrit 27.2 % 30.1 % 32.6 % Mean Corpuscular Volume 81.8 FL 81.3 FL 80.9 FL Mean Corpuscular Hemoglobin 26.6 PG 26.0 PG 26.1 PG Mean Corpuscular Hemoglobin Concent 32.5 % 32.0 % 32.2 % Red Cell Distribution Width 14.9 % 14.7 % 14.7 % Platelet Count 255 TH/MM3 277 TH/MM3 342 TH/MM3 Mean Platelet Volume 7.8 FL 7.6 FL 7.9 FL Blood Urea Nitrogen 46 MG/DL 42 MG/DL Creatinine 1.16 MG/DL 1.09 MG/DL Calcium Level 8.3 MG/DL 8.2 MG/DL Sodium Level 138 MEQ/L 137 MEQ/L Potassium Level 4.7 MEQ/L 5.0 MEQ/L Chloride Level 96 MEQ/L 96 MEQ/L Carbon Dioxide Level 35.0 MEQ/L 32.3 MEQ/L Anion Gap 7 MEQ/L 9 MEQ/L Estimat Glomerular Filtration Rate 68 ML/MIN 73 ML/MIN Hemoglobin A1c 9.8 % Imaging Last Impressions Ankle X-Ray 07/24/17 1256 Signed Impressions: CONCLUSION: 1. An apparent focal cortical break of the calcaneus just posterior to the sub talar joint. This appears new. 2. Splint present. 3. Multifocal ankle and hindfoot osteoarthritis. 4. Accessory navicular and large os peroneum. Chest X-Ray 07/23/17 0600 Signed Impressions: CONCLUSION: Cardiomegaly. Ankle MRI 07/21/17 0000 Signed Impressions: CONCLUSION: 1. Severe tendinopathy of the distal Achilles tendon with full-thickness tear. Tiny intact strand of tendon present medially. There is also partial avulsion of the Achilles tendon at the insertion site on the calcaneus. 2. Severe marrow edema posterior calcaneus especially the lateral aspect, prob ably a small impaction fracture. 3. Mild contusion posterior talus. 4. Small ankle joint effusion. Extensive subcutaneous edema. Lung Scan-V Nuclear Medicine 07/19/17 1528 Signed Impressions: CONCLUSION: 1. Low probability for pulmonary embolism. Compensated cardiomegaly. If high c linical suspicion CT angiogram would be of benefit. Objective Remarks GENERAL: This is a Morbidly obese 47 year old male patient, in no apparent distress. CARDIOVASCULAR: Regular rate and rhythm RESPIRATORY: clear bilaterally GASTROINTESTINAL: Abdomen soft, non-tender, nondistended. Normal active bowel sounds MUSCULOSKELETAL: Right lower extremity is wrapped in Ronnell bandage with a heel splint in place. NEURO: Alert & Oriented x4 to person, place, time, situation. Moves all ext x4 Procedures Open repair of right Achilles tendon rupture with flexor hallucis longus tendon transfer and gastrocnemius recession, right lower extremity on 07/24/[address] Murillo. A/P Problem List: (1) Hypercapnic respiratory failure ICD Codes: J96.92 - Respiratory failure, unspecified with hypercapnia Plan: Hypercapnic respiratory insufficiency - likely from his underlying sleep apnea - patient was not on bipap at home prior to admission COPD exacerbation - comgmt with Pulm Med, Cardiology - BiPAP at night - O2 - solumedrol changed to PO prednisone - duonebs prn - Head of bed elevated 30 - VQ scan (07/21) --> low probability 2-D echocardiogram 07/23/17: - The left ventricular systolic function is mildly reduced with an estimated ejection fraction in the range of 45- 50%. - Mild infero-posterior hypokinesis - Mild concentric left ventricular hypertrophy. - The left atrial size is moderately dilated. - Case d/w Cardiology, Dr. Hirsch, (07/27). - RHC completed (07/28) - class 2 Pulm HTN - PCW 23 - No Right heart strain, so sildenafil was stopped - continue Lasix 80mg IV BID for volume overload - patient voided 6500 ml 07/30 then 9350 ml on 10/31 - observe clinical response Creatinine - norco 5/325mg q6h prn pain - anticipate d/c to home with HHC/PT vs SNF in next 2-3 days - DVT prophylaxis - supportive care COPD exacerbation see above Achilles rupture, right Open repair of right Achilles tendon rupture with flexor hallucis longus tendon transfer and gastrocnemius recession, right lower extremity on 07/24/[address] Murillo. Per podiatry: Recommend rehab if patient unable to maintain non weight bearing status Patient cleared for DC per podiatry - norco 5/325mg q6h prn - gabapentin 300mg tid - tizanidine 2mg po q12h - Dr. Cordero discussed the Case with Podiatry, Dr. Hull (07/31). - Pt had dressing change 07/31. Pt healing well. - Per podiatry, pt will need to be strict non-weight bearing for 6-8 weeks. - Pt will need SNF upon discharge. DM (diabetes mellitus) - resume metformin - amaryl 4mg BID - levemir to 20units BID - SSI CAD (coronary artery disease) Patient with recent cardiac catheterization with PCI 06/17/17 Patient had a PE approximately 8 months ago and was on Coumadin for until the cardiac cauterization 06/17/17 After craterization patient's Coumadin was DC'd and he was started on Aspirin and Plavix Continue patient's aspirin 81 mg daily, Plavix 75 mg PO daily, Atorvastatin 40 mg PO QHS and Coreg BID Anxiety and depression Continue home alprazolam 0.5 mg at night as needed Continue home paroxetine 20 mg p.o. daily for depression - Seroquel Morbid obesity Patient to follow up with PCP for further weight loss and possible referral to bariatric surgery Hyperkalemia - Pt still with hyperkalemia despite multiple doses of kayexalate - K 6.0, 5.9, 5.2 (07/27) - K 5.2, 5.2, 5.3 (07/28) - calcium gluconate// insulin with D50 given 07/28 - K 5.1 (07/29) - K 4.7 (07/30) - K 5.0 (07/31) - BMP pending for (08/01) - r/o hypoaldosteronism - obtain ACTH < 5, serum cortisol 9.7, renin 18, serum aldosterone 1.0. - Dr. Cordero discussed the case with Dr. Steele - urine potassium ordered, await results Hypertension - Losartan 50 mg Q12H - hydralazine 100mg TID - procardia xl 60mg BID - coreg 37.5mg BID - isosorbide 10mg q8h - labetalol prn - pain, narcotic dependency, and anxiety may be contributing - would prefer to minimize narcotics/benzodiazepines d/t JUDY and respiratory suppression (2) COPD exacerbation ICD Codes: J44.1 - Chronic obstructive pulmonary disease with (acute) exacerbation (3) Achilles rupture, right ICD Codes: S86.011A - Strain of right Achilles tendon, initial encounter (4) DM (diabetes mellitus) ICD Codes: E11.9 - Type 2 diabetes mellitus without complications Status: Chronic (5) CAD (coronary artery disease) ICD Codes: I25.10 - Atherosclerotic heart disease of [place] coronary artery without angina pectoris (6) Anxiety and depression ICD Codes: F41.9 - Anxiety disorder, unspecified; F32.9 - Major depressive disorder, single episode, unspecified (7) Morbid obesity ICD Codes: E66.01 - Morbid (severe) obesity due to excess calories (8) Hyperkalemia ICD Codes: E87.5 - Hyperkalemia (9) Hypertension ICD Codes: I10 - Essential (primary) hypertension Status: Chronic Assessment and Plan Patient examined. Assessment and plan formulated with Sally Mathias PA-C. I agree with the above. taper steroids. titrate dm meds. titrate bp meds as needed. cont iv lasix and monitor u.o. and bmp. plan hhc vs snf in next 48hrs. Problem Qualifiers (1) DM (diabetes mellitus): Qualified Codes: E11.8 - Type 2 diabetes mellitus with unspecified complications; Z79.4 - group home (current) use of insulin (2) Hypertension: Qualified Codes: I10 - Essential (primary) hypertension Sally Mathias Aug 01, 2017 10:20 Jonathan Melissa MD Aug 01, 2017 13:15
[2017-08-01 10:24] LABS: BICARBONATE 34.1 MEQ/L (21.0-32.0); CALCIUM 9.2 MG/DL (8.5-10.1); CREATININE 1.17 MG/DL (0.60-1.30)
[2017-08-01 12:00] VITALS: BP 134/71; PULSE 71; RESP 18; TEMP 97.7; O2SAT 95
[2017-08-01] MEDS: metFORMIN HCL 500 MG TAB PO SCH ×2 (12:00→20:39)
[2017-08-01 16:00] VITALS: BP 163/72; PULSE 94; RESP 18; TEMP 98.2; O2SAT 96
[2017-08-01 20:00] VITALS: BP 150/72; PULSE 85; RESP 18; TEMP 97.9; O2SAT 97
--- NOTE | 2017-08-01 20:09 | HHI.PR ---
Subjective Remarks 47 YO Obese male with Br Asthma, HTN,DM,CAD with achilles tendon rupture Breathing better PFT restrictive lung disease Good responce to Bronchodilator Had Achilles tendon repair at [facility] Weaned to RA Does't want to use CPAP Objective Vital Signs Vital Signs Date Time Temp Pulse Resp B/P (MAP) Pulse Ox O2 Delivery O2 Flow Rate FiO2 08/01/17 16:00 98.2 94 18 163/72 (102) 96 08/01/17 15:39 Nasal Cannula 08/01/17 12:00 97.7 71 18 134/71 (92) 95 08/01/17 10:12 Nasal Cannula 08/01/17 08:00 97.2 88 16 177/86 (116) 96 08/01/17 04:00 98.0 79 20 154/83 (106) 99 08/01/17 00:00 97.9 77 20 186/88 (120) 97 07/31/17 21:14 99 Nasal Cannula 21 I/O 07/31/17 07/31/17 07/31/17 08/01/17 08/01/17 08/01/17 07:00 15:00 23:00 07:00 15:00 23:00 Intake Total 480 ml 2500 ml 1000 ml 2800 ml Output Total 2000 ml 3850 ml 5500 ml 2650 ml Balance -1520 ml -1350 ml -4500 ml 150 ml Intake Oral 480 ml 2400 ml 1000 ml 2800 ml IV Total 100 ml 0 ml 0 ml Output Urine Total 2000 ml 3850 ml 5500 ml 2650 ml # Bowel Movements 0 0 0 0 Result Diagram: 08/01/17 0845 08/01/17 0845 Objective Remarks GENERAL: Obese WM, NAD SKIN: Warm and dry. HEAD: Normocephalic. EYES: No scleral icterus. No injection or drainage. NECK: Supple, trachea midline. No JVD or lymphadenopathy. CARDIOVASCULAR: Regular rate and rhythm without murmurs, gallops, or rubs. RESPIRATORY: Breath sounds equal bilaterally. No accessory muscle use. GASTROINTESTINAL: Abdomen soft, non-tender, nondistended. MUSCULOSKELETAL: No cyanosis, or edema. BACK: Nontender without obvious deformity. No CVA tenderness. A/P Assessment and Plan IMPRESSION: 1. Hypercapnic respiratory insufficiency, likely from his underlying sleep apnea. 2. History of asthma. 3. Diabetes mellitus. 4. Hypertension. 5. Coronary artery disease, status post stent placement 6. History of pulmonary embolism. He is off anticoagulation. 7. Restrictive lung disease PLAN; Aerosol nebs 02 to keep sat 88-92 % CPAP at night and prn, if pt agrees pain controll, on [place] and Toradol DW pt and his at [facility] Sleep study as Out pt Luis Armando Sawyer MD Aug 01, 2017 20:09
[2017-08-01] MEDS: ATORVASTATIN 40 MG TAB PO SCH (20:38)
[2017-08-01] MEDS: ALPRAZolam 0.5 MG TAB PO PRN (20:39)
[2017-08-02] VITALS (7 sets, daily range): BP systolic 121–184; BP diastolic 65–87; PULSE 84–98; RESP 18–22; TEMP 97.7–98.6; O2SAT 94–97
[2017-08-02] MEDS: ISOSORBIDE DINITRATE 10 MG TAB PO SCH ×3 (02:00→16:54)
[2017-08-02] MEDS: CHLORHEXIDINE GLUCONATE 2 % 1 PACK (2 CLOTHS) TOP SCH (02:35)
[2017-08-02] MEDS ORDERED: KETOROLAC TROMETHAMINE 30 MG/ML (IVP) VIAL IV PUSH SCH (04:15)
[2017-08-02] MEDS: ACETAMINOPHEN/HYDROcodone 325 MG/5 MG TAB PO PRN ×5 (05:58→23:21)
[2017-08-02] MEDS: GLIMEPIRIDE 4 MG TAB PO SCH ×2 (05:58→15:29)
[2017-08-02] MEDS: GABAPENTIN 300 MG CAP PO SCH ×3 (05:58→21:42)
[2017-08-02 06:00] LABS: HEMOGLOBIN 9.4 GM/DL (13.0-17.0); MEAN CELL VOLUME 80.5 FL (80.0-100.0); MEAN CORPUSCULAR HGB CONC 32.3 % (32.0-36.0); MEAN PLATELET VOLUME 7.5 FL (7.0-11.0); PLATELET COUNT 293 TH/MM3 (150-450); RED CELL DISTRIBUTION WIDTH 14.9 % (11.6-17.2); WHITE BLOOD COUNT 13.2 TH/MM3 (4.0-11.0)
[2017-08-02 06:13] LABS: BICARBONATE 33.4 MEQ/L (21.0-32.0); CALCIUM 8.3 MG/DL (8.5-10.1); CREATININE 1.24 MG/DL (0.60-1.30)
[2017-08-02] MEDS: INSULIN ASPART SUPPLEMENTAL SCALE SQ SCH ×4 (08:00→21:41)
[2017-08-02] MEDS: FUROSEMIDE 40 MG/4 ML VIAL IV PUSH SCH ×2 (08:07→16:55)
[2017-08-02] MEDS: ENOXAPARIN SODIUM 40 MG/0.4 ML SYRINGE SQ SCH ×2 (08:07→21:40)
[2017-08-02] MEDS: hydrALAZINE HCL 100 MG TAB PO SCH ×3 (08:07→16:55)
[2017-08-02] MEDS: LOSARTAN 50 MG TAB PO SCH ×2 (08:07→21:41)
[2017-08-02] MEDS: CARVEDILOL 12.5 MG TAB PO SCH ×2 (08:07→21:43)
[2017-08-02] MEDS: predniSONE 20 MG TAB PO SCH (08:08)
[2017-08-02] MEDS: ASPIRIN EC 81 MG TABEC PO SCH (08:08)
[2017-08-02] MEDS: PARoxetine HCL 20 MG TAB PO SCH (08:09)
[2017-08-02] MEDS: metFORMIN HCL 500 MG TAB PO SCH ×2 (08:09→21:43)
[2017-08-02] MEDS: ALLOPURINOL 100 MG TAB PO SCH (08:10)
[2017-08-02] MEDS: DOCUSATE SODIUM 50 MG/SENNA 8.6 MG TAB PO SCH ×2 (08:10→21:00)
[2017-08-02] MEDS: CLOPIDOGREL 75 MG TAB PO SCH (08:10)
[2017-08-02] MEDS: QUEtiapine FUMARATE 25 MG TAB PO SCH ×2 (08:10→21:41)
[2017-08-02] MEDS: NIFEdipine 60 MG SUSTAINED RELEASE TAB PO SCH ×2 (08:10→21:42)
[2017-08-02] MEDS: FAMOTIDINE 20 MG TAB PO SCH ×2 (09:00→21:42)
[2017-08-02] MEDS: INSULIN DETEMIR 100 UNITS/ML VIAL SQ SCH ×2 (09:00→21:41)
--- NOTE | 2017-08-02 09:47 | HHI.PR ---
Subjective Remarks Patient tearful and frustrated with extended hospital stay Offers no specific complaints when asked endorses that BLE edema is improving Objective Vitals Vital Signs Date Time Temp Pulse Resp B/P (MAP) Pulse Ox O2 Delivery O2 Flow Rate FiO2 08/02/17 08:00 97.8 93 19 184/87 (119) 95 08/02/17 04:00 97.9 94 18 171/75 (107) 95 08/02/17 00:00 98.1 84 18 142/71 (94) 96 08/01/17 20:00 97.9 85 18 150/72 (98) 97 08/01/17 16:00 98.2 94 18 163/72 (102) 96 08/01/17 15:39 Nasal Cannula 08/01/17 12:00 97.7 71 18 134/71 (92) 95 08/01/17 10:12 Nasal Cannula Result Diagram: 08/02/17 0538 08/02/17 0538 Other Results Laboratory Tests Test 07/30/17 13:15 07/31/17 04:51 08/01/17 08:45 08/02/17 05:38 White Blood Count 10.0 TH/MM3 11.5 TH/MM3 12.8 TH/MM3 13.2 TH/MM3 Red Blood Count 3.32 MIL/MM3 3.70 MIL/MM3 4.03 MIL/MM3 3.60 MIL/MM3 Hemoglobin 8.8 GM/DL 9.6 GM/DL 10.5 GM/DL 9.4 GM/DL Hematocrit 27.2 % 30.1 % 32.6 % 29.0 % Mean Corpuscular Volume 81.8 FL 81.3 FL 80.9 FL 80.5 FL Mean Corpuscular Hemoglobin 26.6 PG 26.0 PG 26.1 PG 26.0 PG Mean Corpuscular Hemoglobin Concent 32.5 % 32.0 % 32.2 % 32.3 % Red Cell Distribution Width 14.9 % 14.7 % 14.7 % 14.9 % Platelet Count 255 TH/MM3 277 TH/MM3 342 TH/MM3 293 TH/MM3 Mean Platelet Volume 7.8 FL 7.6 FL 7.9 FL 7.5 FL Blood Urea Nitrogen 46 MG/DL 42 MG/DL 35 MG/DL 35 MG/DL Creatinine 1.16 MG/DL 1.09 MG/DL 1.17 MG/DL 1.24 MG/DL Random Glucose 289 MG/DL 205 MG/DL 188 MG/DL 76 MG/DL Calcium Level 8.3 MG/DL 8.2 MG/DL 9.2 MG/DL 8.3 MG/DL Sodium Level 138 MEQ/L 137 MEQ/L 138 MEQ/L 137 MEQ/L Potassium Level 4.7 MEQ/L 5.0 MEQ/L 4.7 MEQ/L 4.3 MEQ/L Chloride Level 96 MEQ/L 96 MEQ/L 95 MEQ/L 96 MEQ/L Carbon Dioxide Level 35.0 MEQ/L 32.3 MEQ/L 34.1 MEQ/L 33.4 MEQ/L Anion Gap 7 MEQ/L 9 MEQ/L 9 MEQ/L 8 MEQ/L Estimat Glomerular Filtration Rate 68 ML/MIN 73 ML/MIN 67 ML/MIN 63 ML/MIN Hemoglobin A1c 9.8 % Imaging Last Impressions Ankle X-Ray 07/24/17 1256 Signed Impressions: CONCLUSION: 1. An apparent focal cortical break of the calcaneus just posterior to the sub talar joint. This appears new. 2. Splint present. 3. Multifocal ankle and hindfoot osteoarthritis. 4. Accessory navicular and large os peroneum. Chest X-Ray 07/23/17 0600 Signed Impressions: CONCLUSION: Cardiomegaly. Ankle MRI 07/21/17 0000 Signed Impressions: CONCLUSION: 1. Severe tendinopathy of the distal Achilles tendon with full-thickness tear. Tiny intact strand of tendon present medially. There is also partial avulsion of the Achilles tendon at the insertion site on the calcaneus. 2. Severe marrow edema posterior calcaneus especially the lateral aspect, prob ably a small impaction fracture. 3. Mild contusion posterior talus. 4. Small ankle joint effusion. Extensive subcutaneous edema. Lung Scan-V Nuclear Medicine 07/19/17 1528 Signed Impressions: CONCLUSION: 1. Low probability for pulmonary embolism. Compensated cardiomegaly. If high c linical suspicion CT angiogram would be of benefit. Objective Remarks GENERAL: This is a Morbidly obese 47 year old male patient, in no apparent distress. CARDIOVASCULAR: Regular rate and rhythm RESPIRATORY: clear bilaterally GASTROINTESTINAL: Abdomen soft, non-tender, nondistended. Normal active bowel sounds MUSCULOSKELETAL: Right lower extremity is wrapped in Ronnell bandage with a heel splint in place. BLE 1-2+ pitting edema NEURO: Alert & Oriented x4 to person, place, time, situation. Moves all ext x4 Procedures Open repair of right Achilles tendon rupture with flexor hallucis longus tendon transfer and gastrocnemius recession, right lower extremity on 07/24/[address] Murillo. A/P Problem List: (1) Hypercapnic respiratory failure ICD Codes: J96.92 - Respiratory failure, unspecified with hypercapnia Plan: Hypercapnic respiratory insufficiency - likely from his underlying sleep apnea - patient was not on bipap at home prior to admission COPD exacerbation - comgmt with Pulm Med, Cardiology - BiPAP at night - O2 - solumedrol changed to PO prednisone taper - duonebs prn - Head of bed elevated 30 - VQ scan (07/21) --> low probability 2-D echocardiogram 07/23/17: - The left ventricular systolic function is mildly reduced with an estimated ejection fraction in the range of 45- 50%. - Mild infero-posterior hypokinesis - Mild concentric left ventricular hypertrophy. - The left atrial size is moderately dilated. - Case d/w Cardiology, Dr. Hirsch, (07/27). - RHC completed (07/28) - class 2 Pulm HTN - PCW 23 - No Right heart strain, so sildenafil was stopped - continue Lasix 80mg IV BID for volume overload - patient voided 6500 ml 07/30 then 9350 ml on 10/31 - observe clinical response Creatinine - norco 5/325mg q6h prn pain - anticipate d/c to home with HHC/PT vs SNF in next 1-2 days - DVT prophylaxis - supportive care COPD exacerbation see above Achilles rupture, right Open repair of right Achilles tendon rupture with flexor hallucis longus tendon transfer and gastrocnemius recession, right lower extremity on 07/24/[address] Murillo. Per podiatry: Recommend rehab if patient unable to maintain non weight bearing status Patient cleared for DC per podiatry - norco 5/325mg q6h prn - gabapentin 300mg tid - tizanidine 2mg po q12h - Dr. Cordero discussed the Case with Podiatry, Dr. Hull (07/31). - Pt had dressing change 07/31. Pt healing well. - Per podiatry, pt will need to be strict non-weight bearing for 6-8 weeks. - Pt will need SNF upon discharge. DM (diabetes mellitus) - resume metformin - amaryl 4mg BID - levemir to 20units BID -> (08/02) blood glucose low this AM RN to follow hypoglycemic protocol and Levemir decreased to 10 Units BID - will need to watch glucose closely as prednisone is tapered - SSI CAD (coronary artery disease) Patient with recent cardiac catheterization with PCI 06/17/17 Patient had a PE approximately 8 months ago and was on Coumadin for until the cardiac cauterization 06/17/17 After craterization patient's Coumadin was DC'd and he was started on Aspirin and Plavix Continue patient's aspirin 81 mg daily, Plavix 75 mg PO daily, Atorvastatin 40 mg PO QHS and Coreg BID Anxiety and depression Continue home alprazolam 0.5 mg at night as needed Continue home paroxetine 20 mg p.o. daily for depression - Seroquel Morbid obesity Patient to follow up with PCP for further weight loss and possible referral to bariatric surgery Hyperkalemia - Pt still with hyperkalemia despite multiple doses of kayexalate - K 6.0, 5.9, 5.2 (07/27) - K 5.2, 5.2, 5.3 (07/28) - calcium gluconate// insulin with D50 given 07/28 - K 5.1 (07/29) -> K 4.7 (07/30) -> K 5.0 (07/31) -> K 4.7 (08/01) -> 4.3 (08/02) - recheck BMP in AM - r/o hypoaldosteronism - obtain ACTH < 5, serum cortisol 9.7, renin 18, serum aldosterone 1.0. - Dr. Cordero discussed the case with Dr. Steele - urine potassium ordered, await results Hypertension - Losartan 50 mg Q12H - hydralazine 100mg TID - procardia xl 60mg BID - coreg 37.5mg BID - isosorbide 10mg q8h - labetalol prn - pain, narcotic dependency, and anxiety may be contributing - would prefer to minimize narcotics/benzodiazepines d/t JUDY and respiratory suppression DVT prophylaxis with Lovenox 40 mg subcu twice daily (2) COPD exacerbation ICD Codes: J44.1 - Chronic obstructive pulmonary disease with (acute) exacerbation (3) Achilles rupture, right ICD Codes: S86.011A - Strain of right Achilles tendon, initial encounter (4) DM (diabetes mellitus) ICD Codes: E11.9 - Type 2 diabetes mellitus without complications Status: Chronic (5) CAD (coronary artery disease) ICD Codes: I25.10 - Atherosclerotic heart disease of [place] coronary artery without angina pectoris (6) Anxiety and depression ICD Codes: F41.9 - Anxiety disorder, unspecified; F32.9 - Major depressive disorder, single episode, unspecified (7) Morbid obesity ICD Codes: E66.01 - Morbid (severe) obesity due to excess calories (8) Hyperkalemia ICD Codes: E87.5 - Hyperkalemia (9) Hypertension ICD Codes: I10 - Essential (primary) hypertension Status: Chronic Assessment and Plan Patient examined. Assessment and plan formulated with Sally Mathias PA-C. I agree with the above. cont diuresis cont current bp meds lower insulin. hypoglycemic pt emotional today. had dream his was "cheating on him" recc. snf upon dc Problem Qualifiers (1) DM (diabetes mellitus): Qualified Codes: E11.8 - Type 2 diabetes mellitus with unspecified complications; Z79.4 - [facility] (current) use of insulin (2) Hypertension: Qualified Codes: I10 - Essential (primary) hypertension Sally Mathias Aug 02, 2017 09:47 Jonathan Melissa MD Aug 02, 2017 12:55
[2017-08-02] MEDS ORDERED: LORazepam 0.5 MG TAB PO ONE (12:15)
--- NOTE | 2017-08-02 14:11 | HHI.NPPN ---
Subjective General Problems: Edema, Hypertension, Obesity History of Present Illness Patient is a 47-year-old morbidly obese male diabetes, right Achilles tendon surgery, who has anasarca and states his right leg is very painful Additional Remarks Seen in AM. Continues to complain of increased pain. Blood pressure is elevated. Potassium level normal. (eBth Bolanos) Review of Systems Respiratory Respiratory Remarks Denies Shortness of breath (Beth Bolanos) Cardiovascular Cardiac: Edema (Beth Bolanos) Musculoskeletal MS: Pain/Stiffness (Beth Bolanos) Objective Data Data 08/02/17 08/03/17 19:00 07:00 Intake Total 0 ml Balance 0 ml IV Total 0 ml Vital Signs Date Time Temp Pulse Resp B/P (MAP) Pulse Ox O2 Delivery O2 Flow Rate FiO2 08/02/17 12:22 95 21 08/02/17 12:00 97.7 91 19 121/75 (90) 97 08/02/17 08:00 97.8 93 19 184/87 (119) 95 08/02/17 04:00 97.9 94 18 171/75 (107) 95 08/02/17 00:00 98.1 84 18 142/71 (94) 96 08/01/17 20:00 97.9 85 18 150/72 (98) 97 08/01/17 16:00 98.2 94 18 163/72 (102) 96 08/01/17 15:39 Nasal Cannula (Beth Bolanos) -: 08/02/17 0538 08/02/17 0538 Imaging Last Impressions Ankle X-Ray 07/24/17 1256 Signed Impressions: CONCLUSION: 1. An apparent focal cortical break of the calcaneus just posterior to the sub talar joint. This appears new. 2. Splint present. 3. Multifocal ankle and hindfoot osteoarthritis. 4. Accessory navicular and large os peroneum. Chest X-Ray 07/23/17 0600 Signed Impressions: CONCLUSION: Cardiomegaly. Ankle MRI 07/21/17 0000 Signed Impressions: CONCLUSION: 1. Severe tendinopathy of the distal Achilles tendon with full-thickness tear. Tiny intact strand of tendon present medially. There is also partial avulsion of the Achilles tendon at the insertion site on the calcaneus. 2. Severe marrow edema posterior calcaneus especially the lateral aspect, prob ably a small impaction fracture. 3. Mild contusion posterior talus. 4. Small ankle joint effusion. Extensive subcutaneous edema. Lung Scan- Nuclear Medicine 07/19/17 1528 Signed Impressions: CONCLUSION: 1. Low probability for pulmonary embolism. Compensated cardiomegaly. If high c linical suspicion CT angiogram would be of benefit. (Beth Bolanos) Physical Exam General Appearance: Well Developed, Obese (Beth Bolanos) Throat Throat Exam: Oral Mucosa [place] & Moist (Beth Bolanos) Neck Neck Exam: Neck Supple (Beth Bolanos) Pulmonary Resp Exam: Clear Bilaterally, Breath Sounds Equal (Beth Bolanos) Cardiology CV Exam: Regular, Normal Sinus Rhythm (Beth Bolanos) Gastrointestinal/Abdomen GI Exam: Soft, Non-Tender, Bowel Sounds Present (Beth Bolanos) Extremeties Extremities Exam: Moderate Edema (Beth Bolanos) Neurologic Neuro Exam: Alert, Awake (Beth Bolanos) Psychiatric Psych Exam: Appropriate Responses (Beth Bolanos) Assessment/Plan Problem List: (1) Hyperkalemia ICD Codes: E87.5 - Hyperkalemia Plan: Patient potassium level have improved last potassium at 4.3 Continue low potassium diet He is on Lasix 80 mg twice daily edema is improving. Continue to diurese s/p Achilles tendon repair Manage pain control. (2) LISS (acute kidney injury) ICD Codes: N17.9 - Acute kidney failure, unspecified Status: Resolved Plan: Resolved Creatinine stable (3) Diabetes mellitus with hyperglycemia ICD Codes: E11.65 - Type 2 diabetes mellitus with hyperglycemia Status: Acute Plan: Blood glucose was high this is being monitored (4) Hypertension ICD Codes: I10 - Essential (primary) hypertension Status: Chronic Plan: Better controlled at last check. Hypertension possible related to increased pain. (Beth Bolanos) Problem List: (1) Hyperkalemia ICD Codes: E87.5 - Hyperkalemia Plan: Patient potassium level have improved last potassium at 4.3 Continue low potassium diet He is on Lasix 80 mg twice daily edema is improving. Continue to diurese s/p Achilles tendon repair Manage pain control. Patient seen and examined, agree with above. Edema of legs improving. K is normal, continue Lasix. (2) LISS (acute kidney injury) ICD Codes: N17.9 - Acute kidney failure, unspecified Status: Resolved Plan: Resolved Creatinine stable (3) Diabetes mellitus with hyperglycemia ICD Codes: E11.65 - Type 2 diabetes mellitus with hyperglycemia Status: Acute Plan: Blood glucose was high this is being monitored (4) Hypertension ICD Codes: I10 - Essential (primary) hypertension Status: Chronic Plan: Better controlled at last check. Hypertension possible related to increased pain. (Kristi Steele MD) Problem Qualifiers (1) Hypertension: Qualified Codes: I10 - Essential (primary) hypertension Beth Bolanos Aug 02, 2017 14:11 Kristi Steele MD Aug 04, 2017 00:49
--- NOTE | 2017-08-02 20:12 | HHI.PR ---
Subjective Remarks 47 YO Obese male with Br Asthma, HTN,DM,CAD with achilles tendon rupture Breathing better PFT restrictive lung disease Good responce to Bronchodilator Had Achilles tendon repair Weaned to RA Up in chair Objective Vital Signs Vital Signs Date Time Temp Pulse Resp B/P (MAP) Pulse Ox O2 Delivery O2 Flow Rate FiO2 08/02/17 16:00 98.6 84 19 138/65 (89) 94 08/02/17 12:22 95 21 08/02/17 12:00 97.7 91 19 121/75 (90) 97 08/02/17 08:00 97.8 93 19 184/87 (119) 95 08/02/17 04:00 97.9 94 18 171/75 (107) 95 08/02/17 00:00 98.1 84 18 142/71 (94) 96 I/O 08/01/17 08/01/17 08/01/17 08/02/17 08/02/17 08/02/17 07:00 15:00 23:00 07:00 15:00 23:00 Intake Total 1000 ml 2800 ml 0 ml 960 ml Output Total 5500 ml 3450 ml 3950 ml 4000 ml Balance -4500 ml -650 ml -3950 ml 0 ml -3040 ml Intake Oral 1000 ml 2800 ml 960 ml IV Total 0 ml 0 ml 0 ml 0 ml Output Urine Total 5500 ml 3450 ml 3950 ml 4000 ml # Bowel Movements 0 0 1 Result Diagram: 08/02/1753708/02/17 0538 Objective Remarks GENERAL: Obese WM, NAD SKIN: Warm and dry. HEAD: Normocephalic. EYES: No scleral icterus. No injection or drainage. NECK: Supple, trachea midline. No JVD or lymphadenopathy. CARDIOVASCULAR: Regular rate and rhythm without murmurs, gallops, or rubs. RESPIRATORY: Breath sounds equal bilaterally. No accessory muscle use. GASTROINTESTINAL: Abdomen soft, non-tender, nondistended. MUSCULOSKELETAL: No cyanosis, or edema. BACK: Nontender without obvious deformity. No CVA tenderness. A/P Assessment and Plan IMPRESSION: 1. Hypercapnic respiratory insufficiency, likely from his underlying sleep apnea. 2. History of asthma. 3. Diabetes mellitus. 4. Hypertension. 5. Coronary artery disease, status post stent placement 6. History of pulmonary embolism. He is off anticoagulation. 7. Restrictive lung disease PLAN; Aerosol nebs 02 to keep sat 88-92 % CPAP at night and prn, if pt agrees pain controll, on Corinne and Toradol Sleep study as Out pt Luis Armando Sawyer MD Aug 02, 2017 20:12
[2017-08-02] MEDS: ATORVASTATIN 40 MG TAB PO SCH (21:41)
[2017-08-02] MEDS: LORazepam 0.5 MG TAB PO PRN (23:21)
[2017-08-03] VITALS (9 sets, daily range): BP systolic 102–172; BP diastolic 55–92; PULSE 85–102; RESP 17–22; TEMP 97.2–98.9; O2SAT 94–95
[2017-08-03] MEDS: ISOSORBIDE DINITRATE 10 MG TAB PO SCH ×3 (02:00→17:06)
[2017-08-03] MEDS: CHLORHEXIDINE GLUCONATE 2 % 1 PACK (2 CLOTHS) TOP SCH (02:51)
[2017-08-03] MEDS: GABAPENTIN 300 MG CAP PO SCH ×3 (06:00→21:17)
[2017-08-03] MEDS: GLIMEPIRIDE 4 MG TAB PO SCH ×2 (06:00→15:30)
[2017-08-03] MEDS: ACETAMINOPHEN/HYDROcodone 325 MG/5 MG TAB PO PRN ×2 (06:06→21:54)
[2017-08-03] MEDS: metFORMIN HCL 500 MG TAB PO SCH ×2 (08:20→21:16)
[2017-08-03] MEDS: ASPIRIN EC 81 MG TABEC PO SCH (08:20)
[2017-08-03] MEDS: LOSARTAN 50 MG TAB PO SCH ×2 (08:20→21:14)
[2017-08-03] MEDS: QUEtiapine FUMARATE 25 MG TAB PO SCH ×2 (08:20→21:00)
[2017-08-03] MEDS: CLOPIDOGREL 75 MG TAB PO SCH (08:20)
[2017-08-03] MEDS: PARoxetine HCL 20 MG TAB PO SCH (08:20)
[2017-08-03] MEDS: DOCUSATE SODIUM 50 MG/SENNA 8.6 MG TAB PO SCH ×2 (08:20→21:00)
[2017-08-03] MEDS: FUROSEMIDE 40 MG/4 ML VIAL IV PUSH SCH (08:20)
[2017-08-03] MEDS: NIFEdipine 60 MG SUSTAINED RELEASE TAB PO SCH ×2 (08:20→21:14)
[2017-08-03] MEDS: FAMOTIDINE 20 MG TAB PO SCH ×2 (08:20→21:15)
[2017-08-03] MEDS: CARVEDILOL 12.5 MG TAB PO SCH ×2 (08:20→21:15)
[2017-08-03] MEDS: predniSONE 20 MG TAB PO SCH (08:20)
[2017-08-03] MEDS: hydrALAZINE HCL 100 MG TAB PO SCH ×3 (08:21→17:06)
[2017-08-03] MEDS: ALLOPURINOL 100 MG TAB PO SCH (08:21)
[2017-08-03] MEDS: ENOXAPARIN SODIUM 40 MG/0.4 ML SYRINGE SQ SCH ×2 (08:21→21:21)
[2017-08-03] MEDS: INSULIN ASPART SUPPLEMENTAL SCALE SQ SCH ×4 (08:21→21:51)
[2017-08-03] MEDS: INSULIN DETEMIR 100 UNITS/ML VIAL SQ SCH ×2 (08:22→21:50)
[2017-08-03 08:27] LABS: HEMATOCRIT 29.6 % (39.0-51.0); HEMOGLOBIN 9.5 GM/DL (13.0-17.0); MEAN CELL VOLUME 81.6 FL (80.0-100.0); MEAN CORPUSCULAR HEMOGLOBIN 26.1 PG (27.0-34.0); MEAN CORPUSCULAR HGB CONC 32.1 % (32.0-36.0); MEAN PLATELET VOLUME 7.8 FL (7.0-11.0); PLATELET COUNT 254 TH/MM3 (150-450); RED BLOOD COUNT 3.64 MIL/MM3 (4.50-5.90); RED CELL DISTRIBUTION WIDTH 15.2 % (11.6-17.2)
--- NOTE | 2017-08-03 08:41 | HHI.PR ---
Subjective Remarks Pt is rather agitated and seems paranoid this morning He describes hearing two people in his room this morning talking about him from behind his bed. He states that it was a male and a female with an accent and they were "making fun of my private parts" and threatening him by "drawing wolves on the white board" He states that he needs to talk to his cousin to confirm this because he thinks he cousin was there this morning. Nurse states that no one has been in the room this morning. Pt complains about the lack of pain medications available and states that he was shaking in pain last night Pt is afebrile. Objective Vitals Vital Signs Date Time Temp Pulse Resp B/P (MAP) Pulse Ox O2 Delivery O2 Flow Rate FiO2 08/03/17 08:00 98.4 102 19 172/82 (112) 94 08/03/17 04:00 98.2 98 22 171/92 (118) 95 08/03/17 00:00 97.2 89 22 167/78 (107) 95 08/03/17 00:00 89 08/02/17 20:00 98.1 98 22 166/79 (108) 97 08/02/17 16:00 98.6 84 19 138/65 (89) 94 08/02/17 12:22 95 21 08/02/17 12:00 97.7 91 19 121/75 (90) 97 Result Diagram: 08/02/17 0538 08/02/17 0538 Other Results Laboratory Tests Test 08/01/17 08:45 08/02/17 05:38 08/03/17 07:07 White Blood Count 12.8 TH/MM3 13.2 TH/MM3 Red Blood Count 4.03 MIL/MM3 3.60 MIL/MM3 Hemoglobin 10.5 GM/DL 9.4 GM/DL Hematocrit 32.6 % 29.0 % Mean Corpuscular Volume 80.9 FL 80.5 FL Mean Corpuscular Hemoglobin 26.1 PG 26.0 PG Mean Corpuscular Hemoglobin Concent 32.2 % 32.3 % Red Cell Distribution Width 14.7 % 14.9 % Platelet Count 342 TH/MM3 293 TH/MM3 Mean Platelet Volume 7.9 FL 7.5 FL Blood Urea Nitrogen 35 MG/DL 35 MG/DL Creatinine 1.17 MG/DL 1.24 MG/DL Random Glucose 188 MG/DL 76 MG/DL Calcium Level 9.2 MG/DL 8.3 MG/DL Sodium Level 138 MEQ/L 137 MEQ/L Potassium Level 4.7 MEQ/L 4.3 MEQ/L Chloride Level 95 MEQ/L 96 MEQ/L Carbon Dioxide Level 34.1 MEQ/L 33.4 MEQ/L Anion Gap 9 MEQ/L 8 MEQ/L Estimat Glomerular Filtration Rate 67 ML/MIN 63 ML/MIN Imaging Last Impressions Ankle X-Ray 07/24/17 1256 Signed Impressions: CONCLUSION: 1. An apparent focal cortical break of the calcaneus just posterior to the sub talar joint. This appears new. 2. Splint present. 3. Multifocal ankle and hindfoot osteoarthritis. 4. Accessory navicular and large os peroneum. Chest X-Ray 07/23/17 0600 Signed Impressions: CONCLUSION: Cardiomegaly. Ankle MRI 07/21/17 0000 Signed Impressions: CONCLUSION: 1. Severe tendinopathy of the distal Achilles tendon with full-thickness tear. Tiny intact strand of tendon present medially. There is also partial avulsion of the Achilles tendon at the insertion site on the calcaneus. 2. Severe marrow edema posterior calcaneus especially the lateral aspect, prob ably a small impaction fracture. 3. Mild contusion posterior talus. 4. Small ankle joint effusion. Extensive subcutaneous edema. Lung Scan-V Nuclear Medicine 07/19/17 1528 Signed Impressions: CONCLUSION: 1. Low probability for pulmonary embolism. Compensated cardiomegaly. If high c linical suspicion CT angiogram would be of benefit. Objective Remarks GENERAL: This is a Morbidly obese 47 year old male patient, in no apparent distress. CARDIOVASCULAR: Regular rate and rhythm RESPIRATORY: clear bilaterally GASTROINTESTINAL: Abdomen soft, non-tender, nondistended. Normal active bowel sounds MUSCULOSKELETAL: Right lower extremity is wrapped in Ronnell bandage with a heel splint in place. BLE 1-2+ pitting edema on the left 2-3+ on the RLE Procedures Open repair of right Achilles tendon rupture with flexor hallucis longus tendon transfer and gastrocnemius recession, right lower extremity on 07/24/[address] Murillo. A/P Problem List: (1) Hypercapnic respiratory failure ICD Codes: J96.92 - Respiratory failure, unspecified with hypercapnia Plan: Hypercapnic respiratory insufficiency Obesity hypoventilation syndrome COPD exacerbation - Pt is a 47 y/o male with morbid obesity and asthma/COPD who presents to the ED at [facility] on 07/19/17 with new onset worsening shortness of breath and presyncopal type symptoms for the last 1 week. - In the emergency department he was found to be quite hypoxic and hypercarbic with a primary respiratory acidosis and was placed on BiPAP and was admitted to ICU under the care of the Intensivists - Likely from his underlying sleep apnea - Patient was not on BiPAP at home prior to admission - comgmt with Pulm Med, Cardiology - BiPAP at night - Solu-Medrol changed to PO prednisone taper on 07/30, pt currently on Prednisone 20mg po daily - duonebs prn - Head of bed elevated 30 - VQ scan (07/21) --> low probability - 2-D echocardiogram 07/23/17: - The left ventricular systolic function is mildly reduced with an estimated ejection fraction in the range of 45- 50%. - Mild infero-posterior hypokinesis - Mild concentric left ventricular hypertrophy. - The left atrial size is moderately dilated. - Case d/w Cardiology, Dr. Hirsch, (07/27). - RHC completed (07/28) --> Class 2 Pulm HTN, PCW 23 - No Right heart strain, so sildenafil was stopped - Continue Lasix 80mg IV BID for volume overload - Patient voided 6500 ml 07/30, 9350 ml on 10/31, 7400 ml on 08/01 and 4000 ml on 08/02 - Observe clinical response Creatinine - [place] 5/325mg q6h prn pain Achilles rupture, right - At admission pt reported approximately 3 days prior to admission he had sudden onset right ankle pain and swelling and went to be evaluated by coal unloader and was diagnosed with a possible Achilles tendon rupture. - Pt underwent open repair of right Achilles tendon rupture with flexor hallucis longus tendon transfer and gastrocnemius recession, right lower extremity on 07/24/[address] Murillo. - Per podiatry: Recommend rehab if patient unable to maintain non weight bearing status - Patient cleared for DC per podiatry - [place] 5/325mg q6h prn - gabapentin 300mg tid - tizanidine 2mg po q12h - Dr. Cordero discussed the Case with Podiatry, Dr. Hull (07/31). - Pt had dressing change 07/31. Pt healing well. - Per podiatry, pt will need to be strict non-weight bearing for 6-8 weeks. - Pt will need SNF upon discharge. DM (diabetes mellitus) - resume metformin - Amaryl 4mg BID - Levemir to 20units BID -> (08/02) blood glucose low this AM RN to follow hypoglycemic protocol and Levemir decreased to 10 Units BID on 08/02 - will need to watch glucose closely as prednisone is tapered - SSI CAD (coronary artery disease) Recent history of pulmonary embolism - Patient had a PE approximately 8 months ago and was on Coumadin for until the cardiac cauterization 06/17/17 - Patient with recent cardiac catheterization with PCI 06/17/17 - After catheterization patient's Coumadin was DC'd and he was started on Aspirin and Plavix - Continue patient's Aspirin 81 mg daily, Plavix 75 mg PO daily, Atorvastatin 40 mg PO QHS and Coreg BID Hypertension - Pt is currently on Losartan 50 mg Q12H, Hydralazine 100mg TID, Procardia xl 60mg BID, Coreg 37.5mg BID, and Isosorbide 10mg q8h - labetalol and Clonidine prn - pain, narcotic dependency, and anxiety may be contributing - would prefer to minimize narcotics/benzodiazepines d/t JUDY and respiratory suppression Anxiety and depression - Continue home alprazolam 0.5 mg at night as needed - Continue home paroxetine 20 mg p.o. daily for depression - Seroquel Morbid obesity - Patient to follow up with PCP for further weight loss and possible referral to bariatric surgery Hyperkalemia - Pt still with hyperkalemia despite multiple doses of Kayexalate - K 6.0, 5.9, 5.2 (07/27) - K 5.2, 5.2, 5.3 (07/28) - calcium gluconate/ insulin with D50 given 07/28 - K 5.1 (07/29) -> K 4.7 (07/30) -> K 5.0 (07/31) -> K 4.7 (08/01) -> 4.3 (08/02) - Awaiting recheck BMP this AM - r/o hypoaldosteronism - ACTH < 5, serum cortisol 9.7, renin 18, serum aldosterone 1.0. - urine potassium ordered, await results Auditory hallucinations - Reconsult Psychiatry DVT prophylaxis with Lovenox 40 mg subq twice daily (2) COPD exacerbation ICD Codes: J44.1 - Chronic obstructive pulmonary disease with (acute) exacerbation (3) Achilles rupture, right ICD Codes: S86.011A - Strain of right Achilles tendon, initial encounter (4) DM (diabetes mellitus) ICD Codes: E11.9 - Type 2 diabetes mellitus without complications Status: Chronic (5) CAD (coronary artery disease) ICD Codes: I25.10 - Atherosclerotic heart disease of [place] coronary artery without angina pectoris (6) Anxiety and depression ICD Codes: F41.9 - Anxiety disorder, unspecified; F32.9 - Major depressive disorder, single episode, unspecified (7) Morbid obesity ICD Codes: E66.01 - Morbid (severe) obesity due to excess calories (8) Hyperkalemia ICD Codes: E87.5 - Hyperkalemia (9) Hypertension ICD Codes: I10 - Essential (primary) hypertension Status: Chronic Problem Qualifiers (1) DM (diabetes mellitus): Qualified Codes: E11.8 - Type 2 diabetes mellitus with unspecified complications; Z79.4 - alf (current) use of insulin (2) Hypertension: Qualified Codes: I10 - Essential (primary) hypertension Minda Almazan Aug 03, 2017 08:41
--- NOTE | 2017-08-03 10:30 | HHI.NPPN ---
Subjective General Problems: Edema, Hypertension, Obesity History of Present Illness Patient is a 47-year-old morbidly obese male diabetes, right Achilles tendon surgery, who has anasarca and states his right leg is very painful Additional Remarks Continues to complain of increased pain. Blood pressure is elevated. Potassium level normal. Edema improved. (Beth Bolanos) Review of Systems Respiratory Respiratory Remarks Denies Shortness of breath (Beth Bolanos) Cardiovascular Cardiac: Edema (Beth Bolanos) Musculoskeletal MS: Pain/Stiffness (Beth Bolanos) Objective Data Data Vital Signs Date Time Temp Pulse Resp B/P (MAP) Pulse Ox O2 Delivery O2 Flow Rate FiO2 08/03/17 08:00 98.4 102 19 172/82 (112) 94 08/03/17 04:00 98.2 98 22 171/92 (118) 95 08/03/17 00:00 97.2 89 22 167/78 (107) 95 08/03/17 00:00 89 08/02/17 20:00 98.1 98 22 166/79 (108) 97 08/02/17 16:00 98.6 84 19 138/65 (89) 94 08/02/17 12:22 95 21 08/02/17 12:00 97.7 91 19 121/75 (90) 97 (Beth Bolanos) -: 08/03/17 0707 08/02/17 0538 Physical Exam General Appearance: Well Developed, Obese (Beth Bolanos) Throat Throat Exam: Oral Mucosa [employer] & Moist (Beth Bolanos) Neck Neck Exam: Neck Supple (Beth Bolanos) Pulmonary Resp Exam: Clear Bilaterally, Breath Sounds Equal (Beth Bolanos) Cardiology CV Exam: Regular, Normal Sinus Rhythm (Beth Bolanos) Gastrointestinal/Abdomen GI Exam: Soft, Non-Tender, Bowel Sounds Present (Beth Bolanos) Extremeties Extremities Exam: Moderate Edema (Beth Bolanos) Neurologic Neuro Exam: Alert, Awake (Beth Bolanos) Psychiatric Psych Exam: Appropriate Responses (Beth Bolanos) Assessment/Plan Problem List: (1) Hyperkalemia ICD Codes: E87.5 - Hyperkalemia Plan: Patient potassium level have improved and normal Continue low potassium diet Lasix decreased to 40 mg twice daily edema has improved s/p Achilles tendon repair continues to complain of excruciating pain not met with pain medication possible making hypertension worse. (2) LISS (acute kidney injury) ICD Codes: N17.9 - Acute kidney failure, unspecified Status: Resolved Plan: Resolved Creatinine stable (3) Diabetes mellitus with hyperglycemia ICD Codes: E11.65 - Type 2 diabetes mellitus with hyperglycemia Status: Acute Plan: Blood glucose was high this is being monitored (4) Hypertension ICD Codes: I10 - Essential (primary) hypertension Status: Chronic Plan: Blood pressure elevated with SBP in 160 to 170' Will add clonidine BID (Beth Bolanos) Problem List: (1) Hyperkalemia ICD Codes: E87.5 - Hyperkalemia Plan: Patient potassium level have improved and normal Continue low potassium diet Lasix decreased to 40 mg twice daily edema has improved s/p Achilles tendon repair continues to complain of excruciating pain not met with pain medication possible making hypertension worse. Patient seen and examined, agree with above. Creatinine increased , possibly due to diuresis, decreased Lasix, will follow. (2) LISS (acute kidney injury) ICD Codes: N17.9 - Acute kidney failure, unspecified Status: Resolved Plan: Resolved Creatinine stable (3) Diabetes mellitus with hyperglycemia ICD Codes: E11.65 - Type 2 diabetes mellitus with hyperglycemia Status: Acute Plan: Blood glucose was high this is being monitored (4) Hypertension ICD Codes: I10 - Essential (primary) hypertension Status: Chronic Plan: Blood pressure elevated with SBP in 160 to 170' Will add clonidine BID (Kristi Steele MD) Problem Qualifiers (1) Hypertension: Qualified Codes: I10 - Essential (primary) hypertension Beth Bolanos Aug 03, 2017 10:30 Kristi Steele MD Aug 04, 2017 16:21
[2017-08-03] MEDS ORDERED: HALOPERIDOL LACTATE 5 MG/ML AMP IM PRN (12:30)
[2017-08-03] MEDS: LORazepam 0.5 MG TAB PO PRN (15:30)
[2017-08-03] MEDS: FUROSEMIDE 40 MG TAB PO SCH (16:29)
[2017-08-03] MEDS ORDERED: ZIPRASIDONE MESYLATE 20 MG VIAL IM ONE (19:30)
--- NOTE | 2017-08-03 19:44 | HHI.PR ---
Addendum to Inpatient Note Addendum Reason: Additional Documentation Additional Information Received a call from pt's nurse stating that he had been having visual and auditory hallucinations over last day, but progressively worsening. His primary team is aware and wrote psych consult, but psych didn't see pt today yet. Pt reportedly a bit more agitated and paranoid. He was seen by psych earlier this visit and was placed on Seroquel apparently for mood disorder. No focal deficits re: extremity movements. I d/w'd Dr Melissa who advised that they had given pt a low dose of haldol earlier today with apparent minimal relief. I spoke with nurse again for update and she reports that he is doing fine currently since family is in the room and talking with him. He reportedly has periods of lucidity then periods of hallucination. Nurse has noted some periodic limb movements at times as well with occasional tremoring of hands. Will check labs, ABG, CT. Will give Geodon only if agitation occurs. Ativan didn't help much earlier per nurse. Pt may be having reaction to seroquel, some metabolic disturbance, less likely central lesion, conversion d/o. Will monitor closely. VSS. Psych consult pending Esvin Mcnally MD PhD Aug 03, 2017 19:44
[2017-08-03] MEDS ORDERED: cloNIDine HCL 0.1 MG TAB PO SCH (21:00)
--- NOTE | 2017-08-03 21:00 | HHI.PR ---
Subjective Remarks 47 YO Obese male with Br Asthma, HTN,DM,CAD with achilles tendon rupture Breathing better PFT restrictive lung disease Good responce to Bronchodilator Had Achilles tendon repair Confused, hallucinating On RA sat 95% family at BS Objective Vital Signs Vital Signs Date Time Temp Pulse Resp B/P (MAP) Pulse Ox O2 Delivery O2 Flow Rate FiO2 08/03/17 16:00 98.5 99 17 102/63 (76) 95 08/03/17 14:15 125/71 (89) 08/03/17 12:00 98.9 85 17 113/55 (74) 94 08/03/17 11:00 95 08/03/17 08:00 98.4 102 19 172/82 (112) 94 08/03/17 04:00 98.2 98 22 171/92 (118) 95 08/03/17 00:00 97.2 89 22 167/78 (107) 95 08/03/17 00:00 89 I/O 08/02/17 08/02/17 08/02/17 08/03/17 08/03/17 08/03/17 07:00 15:00 23:00 07:00 15:00 23:00 Intake Total 0 ml 960 ml 800 ml 1500 ml Output Total 3950 ml 4000 ml 2000 ml Balance -3950 ml 0 ml -3040 ml 800 ml -500 ml Intake Oral 960 ml 800 ml 1500 ml IV Total 0 ml 0 ml Output Urine Total 3950 ml 4000 ml 2000 ml # Bowel Movements 1 0 Result Diagram: 08/03/17 0707 08/02/17 0538 Objective Remarks GENERAL: Obese WM, NAD SKIN: Warm and dry. HEAD: Normocephalic. EYES: No scleral icterus. No injection or drainage. NECK: Supple, trachea midline. No JVD or lymphadenopathy. CARDIOVASCULAR: Regular rate and rhythm without murmurs, gallops, or rubs. RESPIRATORY: Breath sounds equal bilaterally. No accessory muscle use. GASTROINTESTINAL: Abdomen soft, non-tender, nondistended. MUSCULOSKELETAL: No cyanosis, or edema. BACK: Nontender without obvious deformity. No CVA tenderness. A/P Assessment and Plan IMPRESSION: 1. Hypercapnic respiratory insufficiency, likely from his underlying sleep apnea. 2. History of asthma. 3. Diabetes mellitus. 4. Hypertension. 5. Coronary artery disease, status post stent placement 6. History of pulmonary embolism. He is off anticoagulation. 7. Restrictive lung disease PLAN; Aerosol nebs 02 to keep sat 88-92 % Sleep study as Out pt DW Family Will Put on BIPAP Psych consulted Luis Armando Sawyer MD Aug 03, 2017 21:00
[2017-08-03] MEDS: ATORVASTATIN 40 MG TAB PO SCH (21:14)
[2017-08-03 21:55] LABS: ALBUMIN 2.1 GM/DL (3.4-5.0); AST (GOT) 9 U/L (15-37); BICARBONATE 29.6 MEQ/L (21.0-32.0); BLOOD UREA NITROGEN 37 MG/DL (7-18); CALCIUM 8.3 MG/DL (8.5-10.1); CHLORIDE 97 MEQ/L (98-107); CREATININE 1.54 MG/DL (0.60-1.30); GLOMERULAR FILTRATION RATE 49 ML/MIN (>89); GLUCOSE,RANDOM 174 MG/DL (74-106); SODIUM (NA) 137 MEQ/L (136-145)
[2017-08-03 21:56] LABS: ALT (GPT) 18 U/L (12-78)
[2017-08-03 21:58] LABS: ALKALINE PHOSPHATASE 86 U/L (45-117); TOTAL BILIRUBIN ADULT 0.4 MG/DL (0.2-1.0); TOTAL PROTEIN 5.8 GM/DL (6.4-8.2)
[2017-08-04] VITALS (7 sets, daily range): BP systolic 121–168; BP diastolic 61–103; PULSE 82–91; RESP 18–21; TEMP 97.8–98.4; O2SAT 92–96
[2017-08-04] MEDS ORDERED: diphenhydrAMINE HCL 50 MG/ML VIAL IV ONE (02:00)
[2017-08-04] MEDS: ISOSORBIDE DINITRATE 10 MG TAB PO SCH ×2 (02:00→10:00)
[2017-08-04] MEDS ORDERED: KETOROLAC TROMETHAMINE 30 MG/ML (IVP) VIAL IV PUSH ONE (02:00)
[2017-08-04] MEDS: CHLORHEXIDINE GLUCONATE 2 % 1 PACK (2 CLOTHS) TOP SCH (04:00)
--- NOTE | 2017-08-04 04:31 | RADRPT ---
EXAM DATE: 08/04/2017 4:18 AM EDT AGE/SEX: 47 years / Male INDICATIONS: Altered mental status. CLINICAL DATA: This is the patient's initial encounter. Patient reports that signs and symptoms have been present for 1 day and indicates a pain score of 0/10. MEDICAL/SURGICAL HISTORY: Cardiovascular disease. Chronic obstructive pulmonary disease. None. RADIATION DOSE: 47.26 CTDI (mGy) COMPARISON: [facility] [place] BRAIN W/O [place]AST, 11/22/2015. . TECHNIQUE: CT of the head without contrast. Using automated exposure control and adjustment of the mA and/or kV according to patient size, radiation dose was kept as low as reasonably achievable to ob tain optimal diagnostic quality images. FINDINGS: Cerebrum: The ventricles are normal for age. No evidence of midline shift, mass lesion, hemorrhage or acute infarction. No extraaxial fluid collections are seen. Posterior Fossa: The cerebellum and brainstem are intact. The 4th ventricle is midline. The cerebe llopontine angle is unremarkable. Extracranial: The visualized portion of the orbits is intact. Skull: The calvaria is intact. No evidence of skull fracture. CONCLUSION: No acute intracranial findings. Electronically signed by: Nick Hamilton MD 08/04/2017 4:29 AM EDT
[2017-08-04] MEDS: ACETAMINOPHEN/HYDROcodone 325 MG/5 MG TAB PO PRN ×4 (05:40→23:35)
[2017-08-04] MEDS: GABAPENTIN 300 MG CAP PO SCH ×3 (06:49→20:53)
[2017-08-04] MEDS: GLIMEPIRIDE 4 MG TAB PO SCH (07:00)
[2017-08-04] MEDS: INSULIN ASPART SUPPLEMENTAL SCALE SQ SCH ×4 (07:27→20:50)
[2017-08-04] MEDS: INSULIN DETEMIR 100 UNITS/ML VIAL SQ SCH (08:42)
[2017-08-04] MEDS: ALLOPURINOL 100 MG TAB PO SCH (08:44)
[2017-08-04] MEDS: ENOXAPARIN SODIUM 40 MG/0.4 ML SYRINGE SQ SCH ×2 (08:44→20:38)
[2017-08-04] MEDS: NIFEdipine 60 MG SUSTAINED RELEASE TAB PO SCH ×2 (08:44→20:37)
[2017-08-04] MEDS: LOSARTAN 50 MG TAB PO SCH ×2 (08:44→20:38)
[2017-08-04] MEDS: PARoxetine HCL 20 MG TAB PO SCH (08:45)
[2017-08-04] MEDS: FUROSEMIDE 40 MG TAB PO SCH ×2 (08:45→17:20)
[2017-08-04] MEDS: CLOPIDOGREL 75 MG TAB PO SCH (08:45)
[2017-08-04] MEDS: FAMOTIDINE 20 MG TAB PO SCH ×2 (08:45→20:37)
[2017-08-04] MEDS: metFORMIN HCL 500 MG TAB PO SCH ×2 (08:45→20:37)
[2017-08-04] MEDS: CARVEDILOL 12.5 MG TAB PO SCH ×2 (08:45→20:38)
[2017-08-04] MEDS: ASPIRIN EC 81 MG TABEC PO SCH (08:46)
[2017-08-04] MEDS: hydrALAZINE HCL 100 MG TAB PO SCH ×2 (08:46→13:14)
[2017-08-04] MEDS: DOCUSATE SODIUM 50 MG/SENNA 8.6 MG TAB PO SCH ×2 (08:46→20:37)
[2017-08-04] MEDS: predniSONE 20 MG TAB PO SCH (08:46)
[2017-08-04] MEDS: QUEtiapine FUMARATE 25 MG TAB PO SCH ×2 (08:47→20:50)
--- NOTE | 2017-08-04 10:00 | HHI.PR ---
Subjective Remarks Pt more lucid this morning during my examination but nurse reports that intermittently he has still been hallucinating. He continues to complain mostly of the pain and swelling in the RLE and does not feel his pain is well controlled. He has been eating and drinking well. Denies any nausea/vomiting. Pt is aware that he was hallucinating and is very concerned about what is going on. Objective Vitals Vital Signs Date Time Temp Pulse Resp B/P (MAP) Pulse Ox O2 Delivery O2 Flow Rate FiO2 08/04/17 08:00 98.3 91 19 168/81 (110) 96 08/04/17 04:00 98.1 85 20 139/68 (91) 95 08/04/17 03:24 20 08/04/17 03:00 89 08/04/17 00:00 98.0 87 20 126/103 (111) 92 08/03/17 22:54 18 08/03/17 21:10 96 18 144/73 (96) 95 08/03/17 20:00 98.1 99 22 145/77 (99) 94 08/03/17 19:00 95 Room Air 08/03/17 16:00 98.5 99 17 102/63 (76) 95 08/03/17 14:15 125/71 (89) 08/03/17 12:00 98.9 85 17 113/55 (74) 94 08/03/17 11:00 95 Result Diagram: 08/03/1770608/03/172120 Other Results Laboratory Tests Test 08/03/17 07:07 08/03/17 20:35 08/03/17 21:21 White Blood Count 13.0 TH/MM3 Red Blood Count 3.64 MIL/MM3 Hemoglobin 9.5 GM/DL Hematocrit 29.6 % Mean Corpuscular Volume 81.6 FL Mean Corpuscular Hemoglobin 26.1 PG Mean Corpuscular Hemoglobin Concent 32.1 % Red Cell Distribution Width 15.2 % Platelet Count 254 TH/MM3 Mean Platelet Volume 7.8 FL Blood Gas Puncture Site RT RADIAL Blood Gas Patient Temperature 98.6 Blood Gas HCO3 30 mmol/L Blood Gas Base Excess 6.6 mmol/L Blood Gas Oxygen Saturation 93 % Arterial Blood pH 7.47 Arterial Blood Partial Pressure CO2 42 mmHg Arterial Blood Partial Pressure O2 73 mmHg Arterial Blood Oxygen Content 11.7 Vol % Arterial Blood Carboxyhemoglobin 1.8 % Arterial Blood Methemoglobin 0.9 % Blood Gas Hemoglobin 8.9 G/DL Oxygen Delivery Device ROOM AIR Blood Gas Inspired Oxygen 21 % Blood Urea Nitrogen 37 MG/DL Creatinine 1.54 MG/DL Random Glucose 174 MG/DL Total Protein 5.8 GM/DL Albumin 2.1 GM/DL Calcium Level 8.3 MG/DL Alkaline Phosphatase 86 U/L Aspartate Amino Transf (AST/SGOT) 9 U/L Alanine Aminotransferase (ALT/SGPT) 18 U/L Total Bilirubin 0.4 MG/DL Sodium Level 137 MEQ/L Potassium Level 4.4 MEQ/L Chloride Level 97 MEQ/L Carbon Dioxide Level 29.6 MEQ/L Anion Gap 10 MEQ/L Estimat Glomerular Filtration Rate 49 ML/MIN Ammonia 30 MCMOL/L Imaging Last Impressions Head CT 08/04/17 0000 Signed Impressions: CONCLUSION: No acute intracranial findings. Ankle X-Ray 07/24/17 1256 Signed Impressions: CONCLUSION: 1. An apparent focal cortical break of the calcaneus just posterior to the sub talar joint. This appears new. 2. Splint present. 3. Multifocal ankle and hindfoot osteoarthritis. 4. Accessory navicular and large os peroneum. Chest X-Ray 07/23/17 0600 Signed Impressions: CONCLUSION: Cardiomegaly. Ankle MRI 07/21/17 0000 Signed Impressions: CONCLUSION: 1. Severe tendinopathy of the distal Achilles tendon with full-thickness tear. Tiny intact strand of tendon present medially. There is also partial avulsion of the Achilles tendon at the insertion site on the calcaneus. 2. Severe marrow edema posterior calcaneus especially the lateral aspect, prob ably a small impaction fracture. 3. Mild contusion posterior talus. 4. Small ankle joint effusion. Extensive subcutaneous edema. Lung Scan-V Nuclear Medicine 07/19/17 1528 Signed Impressions: CONCLUSION: 1. Low probability for pulmonary embolism. Compensated cardiomegaly. If high c linical suspicion CT angiogram would be of benefit. Objective Remarks GENERAL: This is a Morbidly obese 47 year old male patient, in no apparent distress. CARDIO: Regular rate and rhythm RESP: clear bilaterally ABD: Abdomen soft, non-tender, nondistended. Normal active bowel sounds EXT: Right lower extremity is wrapped in Ronnell bandage with a heel splint in place. 1-2+ pitting edema on the left, 2-3+ on the RLE and increased pain on the RLE with palpation. Procedures Open repair of right Achilles tendon rupture with flexor hallucis longus tendon transfer and gastrocnemius recession, right lower extremity on 07/24/[address] Murillo. A/P Problem List: (1) Hypercapnic respiratory failure ICD Codes: J96.92 - Respiratory failure, unspecified with hypercapnia Plan: Hypercapnic respiratory insufficiency Obesity hypoventilation syndrome COPD exacerbation - Pt is a 47 y/o male with morbid obesity and asthma/COPD who presents to the ED at [facility] on 07/19/17 with new onset worsening shortness of breath and presyncopal type symptoms for the last 1 week. - In the emergency department he was found to be quite hypoxic and hypercarbic with a primary respiratory acidosis and was placed on BiPAP and was admitted to ICU under the care of the Intensivists - Likely from his underlying sleep apnea - Patient was not on BiPAP at home prior to admission - comgmt with Pulm Med, Cardiology - BiPAP at night - Solu-Medrol changed to PO prednisone taper on 07/30, pt currently on Prednisone 20mg po daily - duonebs prn - Head of bed elevated 30 - VQ scan (07/21) --> low probability - 2-D echocardiogram 07/23/17: - The left ventricular systolic function is mildly reduced with an estimated ejection fraction in the range of 45- 50%. - Mild infero-posterior hypokinesis - Mild concentric left ventricular hypertrophy. - The left atrial size is moderately dilated. - Case d/w Cardiology, Dr. Hirsch, (07/27). - RHC completed (07/28) --> Class 2 Pulm HTN, PCW 23 - No Right heart strain, so sildenafil was stopped - Pt was on Lasix 80mg IV BID for volume overload, the Lasix was decreased to 40mg IV BID on 08/03 - Patient voided 6500 ml 07/30, 9350 ml on 10/31, 7400 ml on 07/22, 4000 ml on , 3500 ml on 08/03 - Creatinine increased to 1.54 on 08/03 - Repeat labs this morning and tomorrow, may need to dose reduce or stop the Lasix if Cr continues to rise - [place] 5/325mg q6h prn pain Achilles rupture, right - At admission pt reported approximately 3 days prior to admission he had sudden onset right ankle pain and swelling and went to be evaluated by renewable energy broker and was diagnosed with a possible Achilles tendon rupture. - Pt underwent open repair of right Achilles tendon rupture with flexor hallucis longus tendon transfer and gastrocnemius recession, right lower extremity on 07/24/[address] Murillo. - Per podiatry: Recommend rehab if patient unable to maintain non weight bearing status - Patient cleared for DC per podiatry - [place] 5/325mg q6h prn - gabapentin 300mg tid - tizanidine 2mg po q12h - Dr. Cordero discussed the Case with Podiatry, Dr. Hull (07/31). - Pt had dressing change 07/31. Pt healing well. - Per podiatry, pt will need to be strict non-weight bearing for 6-8 weeks. - Check LE Doppler US this morning as pt has continued to have significant pain and the RLE is more swollen than the left despite diuresis. - If Doppler is negative, may need to have podiatry re-evaluate as pt has not been compliant with the NWB status - Pt will need SNF upon discharge. DM (diabetes mellitus) - Pts BS this morning was in the 80s - Cont. Metformin - Stop Amaryl 4mg BID and Levemir on 08/04 - Cont. on NovoLog SSI - will need to watch glucose closely as prednisone is tapered CAD (coronary artery disease) Recent history of pulmonary embolism - Patient had a PE approximately 8 months ago and was on Coumadin for until the cardiac cauterization 06/17/17 - Patient with recent cardiac catheterization with PCI 06/17/17 - After catheterization patient's Coumadin was DC'd and he was started on Aspirin and Plavix - Continue patient's Aspirin 81 mg daily, Plavix 75 mg PO daily, Atorvastatin 40 mg PO QHS and Coreg BID Hypertension - Pt is currently on Losartan 50 mg Q12H, Hydralazine 100mg TID, Procardia xl 60mg BID, Coreg 37.5mg BID, and Isosorbide 10mg q8h - Pts BP in the mornings after morning meds has been dropping with systolic into the 90s - Stop the Isosorbid on 08/04 and decrease Hydralazine to 50mg TID and monitor - labetalol and Clonidine prn - pain, narcotic dependency, and anxiety may be contributing - would prefer to minimize narcotics/benzodiazepines d/t JUDY and respiratory suppression Anxiety and depression - Continue home alprazolam 0.5 mg at night as needed - Continue home paroxetine 20 mg p.o. daily for depression - Seroquel increased to 100mg po BID on 08/04 by psychiatry Morbid obesity - Patient to follow up with PCP for further weight loss and possible referral to bariatric surgery Hyperkalemia - Pt still with hyperkalemia despite multiple doses of Kayexalate - K 6.0, 5.9, 5.2 (07/27) - K 5.2, 5.2, 5.3 (07/28) - calcium gluconate/ insulin with D50 given 07/28 - K 5.1 (07/29) -> K 4.7 (07/30) -> K 5.0 (07/31) -> K 4.7 (08/01) -> 4.3 (08/02) - Awaiting recheck BMP this AM - r/o hypoaldosteronism - ACTH < 5, serum cortisol 9.7, renin 18, serum aldosterone 1.0. Auditory and visual hallucinations - Psychiatry was reconsulted on 08/03 - Pt was given Haldol without much effect yesterday - ABG was checked and was stable - Head CT was negative. - Repeat labs on 08/03 noted a slight increase in creatinine but otherwise were stable - Pt is more lucid today DVT prophylaxis with Lovenox 40 mg subq twice daily (2) COPD exacerbation ICD Codes: J44.1 - Chronic obstructive pulmonary disease with (acute) exacerbation (3) Achilles rupture, right ICD Codes: S86.011A - Strain of right Achilles tendon, initial encounter (4) DM (diabetes mellitus) ICD Codes: E11.9 - Type 2 diabetes mellitus without complications Status: Chronic (5) CAD (coronary artery disease) ICD Codes: I25.10 - Atherosclerotic heart disease of [place] coronary artery without angina pectoris (6) Anxiety and depression ICD Codes: F41.9 - Anxiety disorder, unspecified; F32.9 - Major depressive disorder, single episode, unspecified (7) Morbid obesity ICD Codes: E66.01 - Morbid (severe) obesity due to excess calories (8) Hyperkalemia ICD Codes: E87.5 - Hyperkalemia (9) Hypertension ICD Codes: I10 - Essential (primary) hypertension Status: Chronic Problem Qualifiers (1) DM (diabetes mellitus): Qualified Codes: E11.8 - Type 2 diabetes mellitus with unspecified complications; 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
[2017-08-04 10:13] LABS: BASOPHIL % 0.3 % (0.0-2.0); EOSINOPHIL # 0.1 TH/MM3 (0-0.4); EOSINOPHIL % 0.8 % (0.0-4.0); HEMATOCRIT 25.9 % (39.0-51.0); HEMOGLOBIN 8.4 GM/DL (13.0-17.0); LYMPH % 13.2 % (9.0-44.0); LYMPHOCYTE # 1.6 TH/MM3 (1.0-4.8); MEAN CORPUSCULAR HEMOGLOBIN 26.4 PG (27.0-34.0); MEAN CORPUSCULAR HGB CONC 32.6 % (32.0-36.0); MEAN PLATELET VOLUME 7.4 FL (7.0-11.0); MONO % 13.4 % (0.0-8.0); MONOCYTE # 1.7 TH/MM3 (0-0.9); NEUT % 72.3 % (16.0-70.0); PLATELET COUNT 244 TH/MM3 (150-450); RED CELL DISTRIBUTION WIDTH 15.3 % (11.6-17.2); WHITE BLOOD COUNT 12.4 TH/MM3 (4.0-11.0)
[2017-08-04 10:34] LABS: BICARBONATE 32.4 MEQ/L (21.0-32.0); CALCIUM 8.2 MG/DL (8.5-10.1); CREATININE 1.57 MG/DL (0.60-1.30)
--- NOTE | 2017-08-04 14:09 | HHI.PYPN ---
Subjective Remarks I have seen and examined today this patient for psychiatric reevaluation. The case was widely discussed with nursing charge and primary medical team. EMR reviewed. Psychiatric evaluation the patient is calm, cooperative, but irritable, a little bit agitated. The patient presents with episodic involuntary jerking movement, clonus like. The patient reports that he has been having presenting episodes of very vivid, colorful, at times anxiety provoking visual hallucinations. Patient seems to be partially insightful about this perceptual disturbance, he reports that at times he has been scared and paranoid. He states that these visual hallucination has been increasing in frequency and intensity in the last 2 days. He says that he sees people coming inside his room, last night he is his uncle sleeping his bed, times he sees animals, financial aid administrator over his desk, and this hallucinations are mute. He also reports that he has been having dreams are very difficult to define from his reality. For example, he dreamed that his was cheating at him and he woke up crying , and it has been very difficult for him to convince himself that it was just a dream. He denies suicidal and homicidal ideation, denies auditory hallucinations. The patient is logical, coherent and relevant at the moment, oriented 3, without attention deficit, without fluctuation of consciousness. The nurse reports that the patient has being internally stimulated, at times talking to him self and quite disturbed. Review of Systems Constitutional: DENIES: Diaphoretic episodes, Fatigue, Fever, Weight gain, Weight loss, Chills, Dizziness, Change in appetite, Night Sweats Endocrine: DENIES: Heat/cold intolerance, Polydipsia, Polyuria, Polyphagia Eyes: DENIES: Blurred vision, Diplopia, Eye inflammation, Eye pain, Vision loss , Photosensitivity, Double Vision Ears, nose, mouth, throat: DENIES: Tinnitus, Hearing loss, Vertigo, Nasal discharge, Oral lesions, Throat pain, Hoarseness, Ear Pain, Running Nose, Epistaxis, Sinus Pain, Toothache, Odynophagia Respiratory: DENIES: Apneas, Cough, Snoring, Wheezing, Hemoptysis, Sputum production, Shortness of breath Cardiovascular: DENIES: Chest pain, Palpitations, Syncope, Dyspnea on Exertion , PND, Lower Extremity Edema, Orthopnea, Claudication Gastrointestinal: DENIES: Abdominal pain, Black stools, Bloody stools, Constipation, Diarrhea, Nausea, Vomiting, Difficulty Swallowing, Anorexia Genitourinary: DENIES: Sexual dysfunction, Urinary frequency, Urinary incontinence, Urgency, Hematuria, Dysuria, Nocturia, Penile Discharge, Testicular Pain, Testicular Swelling Musculoskeletal: DENIES: Joint pain, Muscle aches, Stiffness, Joint Swelling, Back pain, Neck pain Integumentary: DENIES: Abnormal pigmentation, Nail changes, Pruritus, Rash Hematologic/lymphatic: DENIES: Bruising, Lymphadenopathy Immunologic/allergic: DENIES: Eczema, Urticaria Neurologic: DENIES: Abnormal gait, Headache, Localized weakness, Paresthesias, Seizures, Speech Problems, Tremor, Poor Balance Psychiatric: COMPLAINS OF: Anxiety, Hallucinations, DENIES: Confusion, Mood changes, Depression, Agitation, Suicidal Ideation, Homicidal Ideation, Delusions Mental Status Examination Appearance: Appropriate Consciousness: Alert Orientation: x4 Motor Activity: Normal gait Speech: Unremarkable Language: Adequate Fund of Knowledge: Adequate Attention and Concentration: Adequate Memory: Unremarkable Mood: Irritable Affect: Irritable Thought Process & Associations: Intact Thought Content: Appropriate Hallucination Type: Visual Delusion Type: None Suicidal Ideation: No Suicidal Plan: No Suicidal Intention: No Homicidal Ideation: No Homicidal Plan: No Homicidal Intention: No Insight: Fair Judgment: Impulsive Results Labs Test 08/03/17 20:35 08/03/17 21:21 08/04/17 09:55 Blood Gas Puncture Site RT RADIAL Blood Gas Patient Temperature 98.6 Blood Gas HCO3 30 mmol/L Blood Gas Base Excess 6.6 mmol/L Blood Gas Oxygen Saturation 93 % Arterial Blood pH 7.47 Arterial Blood Partial Pressure CO2 42 mmHg Arterial Blood Partial Pressure O2 73 mmHg Arterial Blood Oxygen Content 11.7 Vol % Arterial Blood Carboxyhemoglobin 1.8 % Arterial Blood Methemoglobin 0.9 % Blood Gas Hemoglobin 8.9 G/DL Oxygen Delivery Device ROOM AIR Blood Gas Inspired Oxygen 21 % Blood Urea Nitrogen 37 MG/DL 35 MG/DL Creatinine 1.54 MG/DL 1.57 MG/DL Random Glucose 174 MG/DL 99 MG/DL Total Protein 5.8 GM/DL Albumin 2.1 GM/DL Calcium Level 8.3 MG/DL 8.2 MG/DL Alkaline Phosphatase 86 U/L Aspartate Amino Transf (AST/SGOT) 9 U/L Alanine Aminotransferase (ALT/SGPT) 18 U/L Total Bilirubin 0.4 MG/DL Sodium Level 137 MEQ/L 138 MEQ/L Potassium Level 4.4 MEQ/L 4.1 MEQ/L Chloride Level 97 MEQ/L 99 MEQ/L Carbon Dioxide Level 29.6 MEQ/L 32.4 MEQ/L Anion Gap 10 MEQ/L 7 MEQ/L Estimat Glomerular Filtration Rate 49 ML/MIN 48 ML/MIN Ammonia 30 MCMOL/L White Blood Count 12.4 TH/MM3 Red Blood Count 3.20 MIL/MM3 Hemoglobin 8.4 GM/DL Hematocrit 25.9 % Mean Corpuscular Volume 81.0 FL Mean Corpuscular Hemoglobin 26.4 PG Mean Corpuscular Hemoglobin Concent 32.6 % Red Cell Distribution Width 15.3 % Platelet Count 244 TH/MM3 Mean Platelet Volume 7.4 FL Neutrophils (%) (Auto) 72.3 % Lymphocytes (%) (Auto) 13.2 % Monocytes (%) (Auto) 13.4 % Eosinophils (%) (Auto) 0.8 % Basophils (%) (Auto) 0.3 % Neutrophils # (Auto) 9.0 TH/MM3 Lymphocytes # (Auto) 1.6 TH/MM3 Monocytes # (Auto) 1.7 TH/MM3 Eosinophils # (Auto) 0.1 TH/MM3 Basophils # (Auto) 0.0 TH/MM3 CBC Comment DIFF FINAL Differential Comment Date/Time Source Procedure Growth Status 07/21/17 03:42 Blood Peripheral Aerobic Blood Culture - Final NO GROWTH IN 5 DAYS Complete 07/21/17 03:42 Blood Peripheral Anaerobic Blood Culture - Final NO GROWTH IN 5 DAYS Complete 07/20/17 10:00 Urine Catheterized Urine Legionella Antigen - Final PRESUMPTIVE NEGATIVE FOR LEGIONELLA P... Complete 07/20/17 10:00 Urine Catheterized Urine Streptococcus pneumoniae Antigen (M - Final PRESUMPTIVE NEGATIVE FOR STREPTOCOCCU... Complete Vitals/IOs Vital Signs Date Time Temp Pulse Resp B/P (MAP) Pulse Ox O2 Delivery O2 Flow Rate FiO2 08/04/17 12:00 98.4 82 18 142/66 (91) 93 08/03/17 19:00 Room Air 08/02/17 12:22 21 Intake and Output 08/04/17 08/04/17 08/05/17 08:00 16:00 00:00 Intake Total 240 ml Output Total 1500 ml Balance -1260 ml Assessment & Plan Problem List: (1) Unspecified psychosis ICD Codes: F29 - Unspecified psychosis not due to a substance or known physiological condition Assessment & Plan: The patient presents with new onset visual hallucinations. Patient describes these hallucinations as colorful, very vivid, mute, anxiety provoking, usually people and also object. Oriented 3, without no thought process disorder at this moment. He does present involuntary jerking movement. Current presentation could be related to delirium, but seizures and other neurological causes should be explored. EEG, neurological consult recommended. I will increase the Seroquel 200 mg twice daily for psychosis. Insight oriented psychotherapy provided. I will follow-up Assessment & Plan Estimated LOS: days Justification for Cont. Inpt. No psychiatric admission indicated at this moment, we will follow-up Willi Mortensen MD Aug 04, 2017 14:09
[2017-08-04] MEDS: MORPHINE SULFATE 4 MG/ML INJ IV PUSH PRN ×2 (14:12→20:36)
--- NOTE | 2017-08-04 16:11 | HHI.PR ---
Subjective Remarks 47 YO Obese male with Br Asthma, HTN,DM,CAD with achilles tendon rupture Breathing better PFT restrictive lung disease Good responce to Bronchodilator Had Achilles tendon repair Seen by psych Objective Vital Signs Vital Signs Date Time Temp Pulse Resp B/P (MAP) Pulse Ox O2 Delivery O2 Flow Rate FiO2 08/04/17 12:00 98.4 82 18 142/66 (91) 93 08/04/17 08:00 98.3 91 19 168/81 (110) 96 08/04/17 04:00 98.1 85 20 139/68 (91) 95 08/04/17 03:24 20 08/04/17 03:00 89 08/04/17 00:00 98.0 87 20 126/103 (111) 92 08/03/17 22:54 18 08/03/17 21:10 96 18 144/73 (96) 95 08/03/17 20:00 98.1 99 22 145/77 (99) 94 08/03/17 19:00 95 Room Air I/O 08/03/17 08/03/17 08/03/17 08/04/17 08/04/17 08/04/17 07:00 15:00 23:00 07:00 15:00 23:00 Intake Total 800 ml 1500 ml 240 ml Output Total 2000 ml 1500 ml Balance 800 ml -500 ml -1260 ml Intake Oral 800 ml 1500 ml 240 ml Output Urine Total 2000 ml 1500 ml # Bowel Movements 0 0 Result Diagram: 08/04/17 0908/04/17 0955 Objective Remarks GENERAL: Obese WM, NAD SKIN: Warm and dry. HEAD: Normocephalic. EYES: No scleral icterus. No injection or drainage. NECK: Supple, trachea midline. No JVD or lymphadenopathy. CARDIOVASCULAR: Regular rate and rhythm without murmurs, gallops, or rubs. RESPIRATORY: Breath sounds equal bilaterally. No accessory muscle use. GASTROINTESTINAL: Abdomen soft, non-tender, nondistended. MUSCULOSKELETAL: No cyanosis, or edema. BACK: Nontender without obvious deformity. No CVA tenderness. A/P Assessment and Plan IMPRESSION: 1. Hypercapnic respiratory insufficiency, likely from his underlying sleep apnea. 2. History of asthma. 3. Diabetes mellitus. 4. Hypertension. 5. Coronary artery disease, status post stent placement 6. History of pulmonary embolism. He is off anticoagulation. 7. Restrictive lung disease PLAN; Aerosol nebs 02 to keep sat 88-92 % Sleep study as Out pt DW Family BIPAP prn and at night Luis Armando Sawyer MD Aug 04, 2017 16:11
--- NOTE | 2017-08-04 16:22 | HHI.NPPN ---
Subjective General Problems: Edema, Hypertension, Obesity History of Present Illness Patient is a 47-year-old morbidly obese male diabetes, right Achilles tendon surgery, who has anasarca and states his right leg is very painful Additional Remarks Patient has off and on confusion, now getting EEG. Review of Systems Respiratory Respiratory Remarks Denies Shortness of breath Cardiovascular Cardiac: Edema Musculoskeletal MS: Pain/Stiffness Objective Data Data Vital Signs Date Time Temp Pulse Resp B/P (MAP) Pulse Ox O2 Delivery O2 Flow Rate FiO2 08/04/17 12:00 98.4 82 18 142/66 (91) 93 08/04/17 08:00 98.3 91 19 168/81 (110) 96 08/04/17 04:00 98.1 85 20 139/68 (91) 95 08/04/17 03:24 20 08/04/17 03:00 89 08/04/17 00:00 98.0 87 20 126/103 (111) 92 08/03/17 22:54 18 08/03/17 21:10 96 18 144/73 (96) 95 08/03/17 20:00 98.1 99 22 145/77 (99) 94 08/03/17 19:00 95 Room Air -: 08/04/17 0955 08/04/17 0955 Physical Exam General Appearance: Well Developed, Obese Throat Throat Exam: Oral Mucosa [place] & Moist Neck Neck Exam: Neck Supple Pulmonary Resp Exam: Clear Bilaterally, Breath Sounds Equal Cardiology CV Exam: Regular, Normal Sinus Rhythm Gastrointestinal/Abdomen GI Exam: Soft, Non-Tender, Bowel Sounds Present Extremeties Extremities Exam: Moderate Edema Neurologic Neuro Exam: Alert, Awake Psychiatric Psych Exam: Appropriate Responses Assessment/Plan Problem List: (1) Hyperkalemia ICD Codes: E87.5 - Hyperkalemia Plan: Patient potassium level have improved and normal Continue low potassium diet Lasix decreased to 40 mg twice daily edema has improved s/p Achilles tendon repair continues to complain of excruciating pain not met with pain medication possible making hypertension worse. Patient seen and examined, agree with above. Creatinine is same, 1.5. Lasix decreased yesterday, will follow BMP. (2) LISS (acute kidney injury) ICD Codes: N17.9 - Acute kidney failure, unspecified Status: Resolved Plan: Resolved Creatinine stable (3) Diabetes mellitus with hyperglycemia ICD Codes: E11.65 - Type 2 diabetes mellitus with hyperglycemia Status: Acute Plan: Blood glucose was high this is being monitored (4) Hypertension ICD Codes: I10 - Essential (primary) hypertension Status: Chronic Plan: Blood pressure elevated with SBP in 160 to 170' Will add clonidine BID Problem Qualifiers (1) Hypertension: Qualified Codes: I10 - Essential (primary) hypertension Kristi Steele MD Aug 04, 2017 16:22
[2017-08-04] MEDS: hydrALAZINE HCL 50 MG TAB PO SCH (17:20)
--- NOTE | 2017-08-04 18:34 | RADRPT ---
EXAM DATE: 08/04/2017 6:30 PM EDT AGE/SEX: 47 years / Male INDICATIONS: Pain and swelling. Status post achilles tendon repair. CLINICAL DATA: This is the patient's subsequent encounter. Patient reports that signs and symptoms h ave been present for 1 day and indicates a pain score of 0/10. MEDICAL/SURGICAL HISTORY: . Hypertension. Irregular heart rate. Gout. Diabetes. Depression. Anx iety. MRSA. Peripheral neuropathy. COPD. Acute renal failure. Renal calculi. Morbid obesity. Osteopor osis. . Tonsillectomy. Anal fissure repair. Left inner thigh abscess removal. Right Achilles repair. Coronary artery stent. COMPARISON: No prior exams available for comparison. TECHNIQUE: Venous ultrasound of both lower extremities was performed from the inguinal ligament to t he proximal calf. Real-time, color Doppler and spectral tracing, compression and augmentation techni ques were used. FINDINGS: CONCLUSION: 1. The study is negative for right lower extremity deep venous thrombosis. Electronically signed by: Zaire Wakefield MD 08/04/2017 6:33 PM EDT
[2017-08-04] MEDS: ATORVASTATIN 40 MG TAB PO SCH (20:38)
[2017-08-04] MEDS: LORazepam 0.5 MG TAB PO PRN (21:59)
[2017-08-04] MEDS: HALOPERIDOL LACTATE 5 MG/ML AMP IM PRN (23:36)
[2017-08-05] VITALS (7 sets, daily range): BP systolic 85–168; BP diastolic 64–91; PULSE 77–108; RESP 18–21; TEMP 97.8–98.2; O2SAT 92–97
[2017-08-05] MEDS: MORPHINE SULFATE 4 MG/ML INJ IV PUSH PRN ×6 (02:47→22:27)
[2017-08-05] MEDS: CHLORHEXIDINE GLUCONATE 2 % 1 PACK (2 CLOTHS) TOP SCH (04:00)
[2017-08-05] MEDS: ACETAMINOPHEN/HYDROcodone 325 MG/5 MG TAB PO PRN ×2 (05:56→12:21)
[2017-08-05] MEDS: GABAPENTIN 300 MG CAP PO SCH ×3 (05:56→21:35)
--- NOTE | 2017-08-05 08:45 | MG ---
cc: Maynor Castle MD EEG NUMBER: [id number] 4-5 Hz posterior rhythm, 10-30 microvolts. Frontal myogenic artifact occasional, paroxysmal delta activity occurring. Limited exam with photic stimulation. Single 12-lead EKG showed sinus rhythm. INTERPRETATION: Mild encephalopathy. Clinical correlation. Maynor Castle MD MG/DL , 08:29 AM , 08:44 AM
[2017-08-05] MEDS: QUEtiapine FUMARATE 25 MG TAB PO SCH (09:00)
--- NOTE | 2017-08-05 09:35 | HHI.PR ---
Subjective Remarks Pt resting comfortably this morning. Nurse reports that the pts is refusing for the pt to take the Seroquel due to possible side effects He is still having some twitching this morning He reports that he continues to have significant pain in the RLE US was negative for DVT Objective Vitals Vital Signs Date Time Temp Pulse Resp B/P (MAP) Pulse Ox O2 Delivery O2 Flow Rate FiO2 08/05/17 08:00 97.8 95 20 135/64 (87) 92 08/05/17 04:51 97.8 92 21 168/85 (112) 92 08/05/17 00:06 98.2 86 21 118/65 (82) 97 08/04/17 20:17 97.8 89 21 131/61 (84) 96 08/04/17 16:00 98.4 82 18 121/65 (83) 94 08/04/17 12:00 98.4 82 18 142/66 (91) 93 Result Diagram: 08/04/17 0955 08/04/17 0955 Other Results Laboratory Tests Test 08/03/17 20:35 08/03/17 21:21 08/04/17 09:55 Blood Gas Puncture Site RT RADIAL Blood Gas Patient Temperature 98.6 Blood Gas HCO3 30 mmol/L Blood Gas Base Excess 6.6 mmol/L Blood Gas Oxygen Saturation 93 % Arterial Blood pH 7.47 Arterial Blood Partial Pressure CO2 42 mmHg Arterial Blood Partial Pressure O2 73 mmHg Arterial Blood Oxygen Content 11.7 Vol % Arterial Blood Carboxyhemoglobin 1.8 % Arterial Blood Methemoglobin 0.9 % Blood Gas Hemoglobin 8.9 G/DL Oxygen Delivery Device ROOM AIR Blood Gas Inspired Oxygen 21 % Blood Urea Nitrogen 37 MG/DL 35 MG/DL Creatinine 1.54 MG/DL 1.57 MG/DL Random Glucose 174 MG/DL 99 MG/DL Total Protein 5.8 GM/DL Albumin 2.1 GM/DL Calcium Level 8.3 MG/DL 8.2 MG/DL Alkaline Phosphatase 86 U/L Aspartate Amino Transf (AST/SGOT) 9 U/L Alanine Aminotransferase (ALT/SGPT) 18 U/L Total Bilirubin 0.4 MG/DL Sodium Level 137 MEQ/L 138 MEQ/L Potassium Level 4.4 MEQ/L 4.1 MEQ/L Chloride Level 97 MEQ/L 99 MEQ/L Carbon Dioxide Level 29.6 MEQ/L 32.4 MEQ/L Anion Gap 10 MEQ/L 7 MEQ/L Estimat Glomerular Filtration Rate 49 ML/MIN 48 ML/MIN Ammonia 30 MCMOL/L White Blood Count 12.4 TH/MM3 Red Blood Count 3.20 MIL/MM3 Hemoglobin 8.4 GM/DL Hematocrit 25.9 % Mean Corpuscular Volume 81.0 FL Mean Corpuscular Hemoglobin 26.4 PG Mean Corpuscular Hemoglobin Concent 32.6 % Red Cell Distribution Width 15.3 % Platelet Count 244 TH/MM3 Mean Platelet Volume 7.4 FL Neutrophils (%) (Auto) 72.3 % Lymphocytes (%) (Auto) 13.2 % Monocytes (%) (Auto) 13.4 % Eosinophils (%) (Auto) 0.8 % Basophils (%) (Auto) 0.3 % Neutrophils # (Auto) 9.0 TH/MM3 Lymphocytes # (Auto) 1.6 TH/MM3 Monocytes # (Auto) 1.7 TH/MM3 Eosinophils # (Auto) 0.1 TH/MM3 Basophils # (Auto) 0.0 TH/MM3 CBC Comment DIFF FINAL Differential Comment Imaging Last Impressions Head CT 08/04/17 0000 Signed Impressions: CONCLUSION: No acute intracranial findings. Ankle X-Ray 07/24/17 1256 Signed Impressions: CONCLUSION: 1. An apparent focal cortical break of the calcaneus just posterior to the sub talar joint. This appears new. 2. Splint present. 3. Multifocal ankle and hindfoot osteoarthritis. 4. Accessory navicular and large os peroneum. Chest X-Ray 07/23/17 0600 Signed Impressions: CONCLUSION: Cardiomegaly. Ankle MRI 07/21/17 0000 Signed Impressions: CONCLUSION: 1. Severe tendinopathy of the distal Achilles tendon with full-thickness tear. Tiny intact strand of tendon present medially. There is also partial avulsion of the Achilles tendon at the insertion site on the calcaneus. 2. Severe marrow edema posterior calcaneus especially the lateral aspect, prob ably a small impaction fracture. 3. Mild contusion posterior talus. 4. Small ankle joint effusion. Extensive subcutaneous edema. Lung Scan-V Nuclear Medicine 07/19/17 1528 Signed Impressions: CONCLUSION: 1. Low probability for pulmonary embolism. Compensated cardiomegaly. If high c linical suspicion CT angiogram would be of benefit. Objective Remarks GENERAL: This is a Morbidly obese 47 year old male patient, in no apparent distress. CARDIO: Regular rate and rhythm RESP: clear bilaterally ABD: Abdomen soft, non-tender, nondistended. Normal active bowel sounds EXT: Right lower extremity is wrapped in Ronnell bandage with a heel splint in place. 1-2+ pitting edema on the left, 2-3+ on the RLE and increased pain on the RLE with palpation. Procedures Open repair of right Achilles tendon rupture with flexor hallucis longus tendon transfer and gastrocnemius recession, right lower extremity on 07/24/[address] Murillo. A/P Problem List: (1) Hypercapnic respiratory failure ICD Codes: J96.92 - Respiratory failure, unspecified with hypercapnia Plan: Hypercapnic respiratory insufficiency Obesity hypoventilation syndrome COPD exacerbation - Pt is a 47 y/o male with morbid obesity and asthma/COPD who presents to the ED at [facility] on 07/19/17 with new onset worsening shortness of breath and presyncopal type symptoms for the last 1 week. - In the emergency department he was found to be quite hypoxic and hypercarbic with a primary respiratory acidosis and was placed on BiPAP and was admitted to ICU under the care of the Intensivists - Likely from his underlying sleep apnea - Patient was not on BiPAP at home prior to admission - comgmt with Pulm Med, Cardiology - BiPAP at night - Solu-Medrol changed to PO prednisone taper on 07/30, pt currently on Prednisone 20mg po daily - duonebs prn - Head of bed elevated 30 - VQ scan (07/21) --> low probability - 2-D echocardiogram 07/23/17: - The left ventricular systolic function is mildly reduced with an estimated ejection fraction in the range of 45- 50%. - Mild infero-posterior hypokinesis - Mild concentric left ventricular hypertrophy. - The left atrial size is moderately dilated. - Case d/w Cardiology, Dr. Hirsch, (07/27). - RHC completed (07/28) --> Class 2 Pulm HTN, PCW 23 - No Right heart strain, so sildenafil was stopped - Pt was on Lasix 80mg IV BID for volume overload, the Lasix was decreased to 40mg IV BID on 08/03 - Patient voided 6500 ml 07/30, 9350 ml on 10/31, 7400 ml on 07/22, 4000 ml on , 3500 ml on 08/03 - Creatinine increased to 1.57 on 08/04 - Repeat labs this morning are pending. May need to dose reduce or stop the Lasix if Cr continues to rise - [place] 5/325mg q6h prn pain Achilles rupture, right - At admission pt reported approximately 3 days prior to admission he had sudden onset right ankle pain and swelling and went to be evaluated by manager small business and was diagnosed with a possible Achilles tendon rupture. - Pt underwent open repair of right Achilles tendon rupture with flexor hallucis longus tendon transfer and gastrocnemius recession, right lower extremity on 07/24/[address] Murillo. - Per podiatry: Recommend rehab if patient unable to maintain non weight bearing status - [place] 5/325mg q6h prn - gabapentin 300mg tid - tizanidine 2mg po q12h - Pt had dressing change 07/31. Pt healing well. - Per podiatry, pt will need to be strict non-weight bearing for 6-8 weeks. - LE Doppler US (08/04) --> Is negative for DVT - Morphine 4mg Q4H PRN for breakthrough was added on 08/04 - Podiatry reconsulted to re-evaluate as pt has not been compliant with the NWB status - Pt will need SNF upon discharge. DM (diabetes mellitus) - Pts BS this morning was in the 80s - Cont. Metformin - Stop Amaryl 4mg BID and Levemir on 08/04 - Cont. on NovoLog SSI - will need to watch glucose closely as prednisone is tapered CAD (coronary artery disease) Recent history of pulmonary embolism - Patient had a PE approximately 8 months ago and was on Coumadin for until the cardiac cauterization 06/17/17 - Patient with recent cardiac catheterization with PCI 06/17/17 - After catheterization patient's Coumadin was DC'd and he was started on Aspirin and Plavix - Continue patient's Aspirin 81 mg daily, Plavix 75 mg PO daily, Atorvastatin 40 mg PO QHS and Coreg BID Hypertension - Pt is currently on Losartan 50 mg Q12H, Hydralazine 100mg TID, Procardia xl 60mg BID, Coreg 37.5mg BID, and Isosorbide 10mg q8h - Pts BP in the mornings after morning meds has been dropping with systolic into the 90s - Stop the Isosorbid on 08/04 and decrease Hydralazine to 50mg TID and monitor - labetalol and Clonidine prn - pain, narcotic dependency, and anxiety may be contributing - would prefer to minimize narcotics/benzodiazepines d/t JUDY and respiratory suppression Anxiety and depression Auditory and visual hallucinations - Psychiatry was reconsulted on 08/03 - Pt was given Haldol without much effect yesterday - ABG was checked and was stable - Head CT was negative. - Repeat labs on 08/03 noted a slight increase in creatinine but otherwise were stable - Pt is more lucid today - EEG ordered per psychiatry request to evaluate for seizures as the pt is having some jerking motions of his extremities - Continue home alprazolam 0.5 mg at night as needed - Continue home paroxetine 20 mg p.o. daily for depression - Seroquel increased to 100mg po BID on 08/04 by psychiatry but pts is refusing this medication for him due to possible side effects Morbid obesity - Patient to follow up with PCP for further weight loss and possible referral to bariatric surgery Hyperkalemia - Pt still with hyperkalemia despite multiple doses of Kayexalate - K 6.0, 5.9, 5.2 (07/27) - K 5.2, 5.2, 5.3 (07/28) - calcium gluconate/ insulin with D50 given 07/28 - K 5.1 (07/29) -> K 4.7 (07/30) -> K 5.0 (07/31) -> K 4.7 (08/01) -> 4.3 (08/02) - Awaiting recheck BMP this AM - r/o hypoaldosteronism - ACTH < 5, serum cortisol 9.7, renin 18, serum aldosterone 1.0. DVT prophylaxis with Lovenox 40 mg subq twice daily (2) COPD exacerbation ICD Codes: J44.1 - Chronic obstructive pulmonary disease with (acute) exacerbation (3) Achilles rupture, right ICD Codes: S86.011A - Strain of right Achilles tendon, initial encounter (4) DM (diabetes mellitus) ICD Codes: E11.9 - Type 2 diabetes mellitus without complications Status: Chronic (5) CAD (coronary artery disease) ICD Codes: I25.10 - Atherosclerotic heart disease of [place] coronary artery without angina pectoris (6) Anxiety and depression ICD Codes: F41.9 - Anxiety disorder, unspecified; F32.9 - Major depressive disorder, single episode, unspecified (7) Morbid obesity ICD Codes: E66.01 - Morbid (severe) obesity due to excess calories (8) Hyperkalemia ICD Codes: E87.5 - Hyperkalemia (9) Hypertension ICD Codes: I10 - Essential (primary) hypertension Status: Chronic Assessment and Plan Patient examined. Assessment and plan formulated with Minda Almazan PA-C. I agree with the above. pt c/o more RLE pain below the knee. The lower leg heavily bandaged by Podiatry following achilles rupture repair. toes warm. u/s neg for dvt. swelling notes up to knee. pain meds increased. nursing on phone now to notify podiatry for reevaluation. pt refused the seroquel. Says she thinks it's causing his twitching. EEG no epileptiform activity noted. 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
[2017-08-05] MEDS: INSULIN ASPART SUPPLEMENTAL SCALE SQ SCH ×4 (09:38→21:41)
[2017-08-05] MEDS: ENOXAPARIN SODIUM 40 MG/0.4 ML SYRINGE SQ SCH ×2 (09:38→21:44)
[2017-08-05] MEDS: FAMOTIDINE 20 MG TAB PO SCH ×2 (09:39→21:35)
[2017-08-05] MEDS: predniSONE 10 MG TAB PO SCH (09:39)
[2017-08-05] MEDS: CARVEDILOL 12.5 MG TAB PO SCH ×2 (09:39→21:32)
[2017-08-05] MEDS: ASPIRIN EC 81 MG TABEC PO SCH (09:40)
[2017-08-05] MEDS: metFORMIN HCL 500 MG TAB PO SCH ×2 (09:40→21:44)
[2017-08-05] MEDS: CLOPIDOGREL 75 MG TAB PO SCH (09:40)
[2017-08-05] MEDS: LOSARTAN 50 MG TAB PO SCH ×2 (09:40→21:34)
[2017-08-05] MEDS: ALLOPURINOL 100 MG TAB PO SCH (09:41)
[2017-08-05] MEDS: PARoxetine HCL 20 MG TAB PO SCH (09:41)
[2017-08-05] MEDS: DOCUSATE SODIUM 50 MG/SENNA 8.6 MG TAB PO SCH ×2 (09:41→21:35)
[2017-08-05] MEDS: NIFEdipine 60 MG SUSTAINED RELEASE TAB PO SCH ×2 (09:41→21:33)
[2017-08-05] MEDS: hydrALAZINE HCL 50 MG TAB PO SCH ×3 (09:41→16:52)
[2017-08-05] MEDS: FUROSEMIDE 40 MG TAB PO SCH ×2 (09:41→16:53)
[2017-08-05 10:13] LABS: BICARBONATE 26.8 MEQ/L (21.0-32.0); CREATININE 1.35 MG/DL (0.60-1.30); MAGNESIUM 1.9 MG/DL (1.5-2.5)
--- NOTE | 2017-08-05 10:14 | HHI.NPPN ---
Subjective General Problems: Edema, Hypertension, Obesity History of Present Illness Patient is a 47-year-old morbidly obese male diabetes, right Achilles tendon surgery, who has anasarca and states his right leg is very painful Additional Remarks Continues to complain of increased pain in right foot. No shortness of breath. (Beth Bolanos) Review of Systems Respiratory Respiratory Remarks Denies Shortness of breath (Beth Bolanos) Cardiovascular Cardiac: Edema (Beth Bolanos) Musculoskeletal MS: Pain/Stiffness (Beth Bolanos) Objective Data Data Vital Signs Date Time Temp Pulse Resp B/P (MAP) Pulse Ox O2 Delivery O2 Flow Rate FiO2 08/05/17 08:00 97.8 95 20 135/64 (87) 92 08/05/17 04:51 97.8 92 21 168/85 (112) 92 08/05/17 00:06 98.2 86 21 118/65 (82) 97 08/04/17 20:17 97.8 89 21 131/61 (84) 96 08/04/17 16:00 98.4 82 18 121/65 (83) 94 08/04/17 12:00 98.4 82 18 142/66 (91) 93 (Beth Bolanos) -: 08/04/17 0955 08/04/17 0955 Imaging Last Impressions Lower Extremity Ultrasound 08/04/17 0000 Signed Impressions: CONCLUSION: 1. The study is negative for right lower extremity deep venous thrombosis. Head CT 08/04/17 0000 Signed Impressions: CONCLUSION: No acute intracranial findings. Ankle X-Ray 07/24/17 1256 Signed Impressions: CONCLUSION: 1. An apparent focal cortical break of the calcaneus just posterior to the sub talar joint. This appears new. 2. Splint present. 3. Multifocal ankle and hindfoot osteoarthritis. 4. Accessory navicular and large os peroneum. Chest X-Ray 07/23/17 0600 Signed Impressions: CONCLUSION: Cardiomegaly. Ankle MRI 07/21/17 0000 Signed Impressions: CONCLUSION: 1. Severe tendinopathy of the distal Achilles tendon with full-thickness tear. Tiny intact strand of tendon present medially. There is also partial avulsion of the Achilles tendon at the insertion site on the calcaneus. 2. Severe marrow edema posterior calcaneus especially the lateral aspect, prob ably a small impaction fracture. 3. Mild contusion posterior talus. 4. Small ankle joint effusion. Extensive subcutaneous edema. Lung Scan- Nuclear Medicine 07/19/17 4073 Signed Impressions: CONCLUSION: 1. Low probability for pulmonary embolism. Compensated cardiomegaly. If high c linical suspicion CT angiogram would be of benefit. (Beth Bolanos) Physical Exam General Appearance: Well Developed, Obese (Beth Bolanos) Throat Throat Exam: Oral Mucosa [place] & Moist (Beth Bolanos) Neck Neck Exam: Neck Supple (Beth Bolanos) Pulmonary Resp Exam: Clear Bilaterally, Breath Sounds Equal (Beth Bolanos) Cardiology CV Exam: Regular, Normal Sinus Rhythm (Beth Bolanos) Gastrointestinal/Abdomen GI Exam: Soft, Non-Tender, Bowel Sounds Present (Beth Bolanos) Extremeties Extremities Exam: Moderate Edema (Beth Bolanos) Neurologic Neuro Exam: Alert, Awake (Beth Bolanos) Psychiatric Psych Exam: Appropriate Responses (Beth Bolanos) Assessment/Plan Problem List: (1) Hyperkalemia ICD Codes: E87.5 - Hyperkalemia Plan: Patient potassium level have improved and normal Continue low potassium diet Continue Lasix 40 mg twice daily Labs pending. (2) LISS (acute kidney injury) ICD Codes: N17.9 - Acute kidney failure, unspecified Status: Resolved Plan: LISS possibly related to prerenal from infection VS diuresis Lasix has been decreased. Creatinine slightly increased at 1.57 Labs pending for today (3) Diabetes mellitus with hyperglycemia ICD Codes: E11.65 - Type 2 diabetes mellitus with hyperglycemia Status: Acute Plan: Blood glucose was high this is being monitored (4) Hypertension ICD Codes: I10 - Essential (primary) hypertension Status: Chronic Plan: Blood pressure has improved. Continue to monitor (5) Achilles rupture, right ICD Codes: S86.011A - Strain of right Achilles tendon, initial encounter Plan: Increased pain. Has not been complaint with non weight bearing Podiatry has been reconsulted. (Beth Bolanos) Problem List: (1) Hyperkalemia ICD Codes: E87.5 - Hyperkalemia Plan: Patient potassium level have improved and normal Continue low potassium diet Continue Lasix 40 mg twice daily Labs pending. Patient seen and examined, agree with above. Creatinine is slightly better, K is normal. Continue Lasix. (2) LISS (acute kidney injury) ICD Codes: N17.9 - Acute kidney failure, unspecified Status: Resolved Plan: LISS possibly related to prerenal from infection VS diuresis Lasix has been decreased. Creatinine slightly increased at 1.57 Labs pending for today (3) Diabetes mellitus with hyperglycemia ICD Codes: E11.65 - Type 2 diabetes mellitus with hyperglycemia Status: Acute Plan: Blood glucose was high this is being monitored (4) Hypertension ICD Codes: I10 - Essential (primary) hypertension Status: Chronic Plan: Blood pressure has improved. Continue to monitor (5) Achilles rupture, right ICD Codes: S86.011A - Strain of right Achilles tendon, initial encounter Plan: Increased pain. Has not been complaint with non weight bearing Podiatry has been reconsulted. (Kristi Steele MD) Problem Qualifiers (1) Hypertension: Qualified Codes: I10 - Essential (primary) hypertension Beth Bolanos Aug 05, 2017 10:14 Kristi Steele MD Aug 06, 2017 12:16
[2017-08-05 10:15] LABS: AUTOMATED NEUTROPHIL # 8.4 TH/MM3 (1.8-7.7); BASOPHIL # 0.1 TH/MM3 (0-0.2); BASOPHIL % 0.5 % (0.0-2.0); EOSINOPHIL # 0.2 TH/MM3 (0-0.4); EOSINOPHIL % 1.3 % (0.0-4.0); HEMATOCRIT 26.6 % (39.0-51.0); HEMOGLOBIN 8.7 GM/DL (13.0-17.0); LYMPH % 11.8 % (9.0-44.0); LYMPHOCYTE # 1.4 TH/MM3 (1.0-4.8); MEAN CELL VOLUME 81.5 FL (80.0-100.0); MEAN CORPUSCULAR HEMOGLOBIN 26.6 PG (27.0-34.0); MEAN CORPUSCULAR HGB CONC 32.6 % (32.0-36.0); MEAN PLATELET VOLUME 7.7 FL (7.0-11.0); MONO % 14.8 % (0.0-8.0); MONOCYTE # 1.8 TH/MM3 (0-0.9); NEUT % 71.6 % (16.0-70.0); PLATELET COUNT 230 TH/MM3 (150-450); RED BLOOD COUNT 3.26 MIL/MM3 (4.50-5.90); RED CELL DISTRIBUTION WIDTH 14.6 % (11.6-17.2); WHITE BLOOD COUNT 11.8 TH/MM3 (4.0-11.0)
[2017-08-05] MEDS ORDERED: ACETAMINOPHEN/HYDROcodone 325 MG/5 MG TAB PO ONE (12:45)
[2017-08-05] MEDS: GLIMEPIRIDE 2 MG TAB PO SCH (16:52)
[2017-08-05] MEDS: ACETAMINOPHEN/HYDROcodone 325 MG/10 MG TAB PO PRN ×2 (16:52→21:31)
--- NOTE | 2017-08-05 17:02 | PD.POD ---
Subjective Podiatric Problems s/p achilles repair with . Pt states he is having a lot of pain. He states that he was ''trashing about during a dillusional episode'' and now its is hurting and swollen. Pain score: 7 Past Med/Surg/Social History Past Medical History Endocrine: REPORTS HX OF: Diabetes mellitus Cardiovascular: REPORTS HX OF: Hyperlipidemia, Hypertension Past Surgical History HEENT: REPORTS HX OF: Tonsillectomy Genitourinary: REPORTS HX OF: Other surgery Integumentary: REPORTS HX OF: Other integumentary surg (abcesses) Social History Smoking Status: Former Smoker Objective Vital Signs Vital Signs Date Time Temp Pulse Resp B/P (MAP) Pulse Ox O2 Delivery O2 Flow Rate FiO2 08/05/17 13:27 92 08/05/17 12:00 97.8 108 20 151/91 (111) 92 08/05/17 08:00 97.8 95 20 135/64 (87) 92 08/05/17 04:51 97.8 92 21 168/85 (112) 92 08/05/17 00:06 98.2 86 21 118/65 (82) 97 08/04/17 20:17 97.8 89 21 131/61 (84) 96 Coded Allergies: codeine (Verified Allergy, Severe, Itching, 07/19/17) tramadol (Verified Allergy, Unknown, 07/19/17) clonidine (Unverified Adverse Reaction, Severe, ARNDT, dry mouth, "felt drunk ", 07/19/17) lisinopril (Verified Adverse Reaction, Unknown, abnormal labs K level, ) Exam-Podiatry Remarks RLE posterior incision line is well coapted with all sutures intact,. Mild ecchymosis. No drainage. No erythema. Mild/mod edema to proximal calf. Assessment & Plan A/P 1)s/p right achilles tendon repair -NWBing RLE -New splint ordered -cont to ice and elevate -f/u with at d/c Shelby Kimball DPM Aug 05, 2017 17:02
--- NOTE | 2017-08-05 18:46 | HHI.PR ---
Subjective Remarks 47 YO Obese male with Br Asthma, HTN,DM,CAD with achilles tendon rupture Breathing better PFT restrictive lung disease Good responce to Bronchodilator Had Achilles tendon repair resting, on RA Objective Vital Signs Vital Signs Date Time Temp Pulse Resp B/P (MAP) Pulse Ox O2 Delivery O2 Flow Rate FiO2 08/05/17 16:00 98.2 78 18 121/66 (84) 92 08/05/17 13:27 92 08/05/17 12:00 97.8 108 20 151/91 (111) 92 08/05/17 08:00 97.8 95 20 135/64 (87) 92 08/05/17 04:51 97.8 92 21 168/85 (112) 92 08/05/17 00:06 98.2 86 21 118/65 (82) 97 08/04/17 20:17 97.8 89 21 131/61 (84) 96 I/O 08/04/17 08/04/17 08/04/17 08/05/17 08/05/17 08/05/17 07:00 15:00 23:00 07:00 15:00 23:00 Intake Total 240 ml 1680 ml 780 ml 740 ml Output Total 1500 ml 1300 ml 1800 ml 1100 ml Balance -1260 ml 380 ml -1020 ml -360 ml Intake Oral 240 ml 1680 ml 780 ml 740 ml Output Urine Total 1500 ml 1300 ml 1800 ml 1100 ml Drainage Total 0 ml # Bowel Movements 0 0 0 Result Diagram: 08/05/17 0904 08/05/17 0904 Objective Remarks GENERAL: Obese WM, NAD SKIN: Warm and dry. HEAD: Normocephalic. EYES: No scleral icterus. No injection or drainage. NECK: Supple, trachea midline. No JVD or lymphadenopathy. CARDIOVASCULAR: Regular rate and rhythm without murmurs, gallops, or rubs. RESPIRATORY: Breath sounds equal bilaterally. No accessory muscle use. GASTROINTESTINAL: Abdomen soft, non-tender, nondistended. MUSCULOSKELETAL: No cyanosis, or edema. BACK: Nontender without obvious deformity. No CVA tenderness. A/P Assessment and Plan IMPRESSION: 1. Hypercapnic respiratory insufficiency, likely from his underlying sleep apnea. 2. History of asthma. 3. Diabetes mellitus. 4. Hypertension. 5. Coronary artery disease, status post stent placement 6. History of pulmonary embolism. He is off anticoagulation. 7. Restrictive lung disease PLAN; Aerosol nebs 02 to keep sat 88-92 % Sleep study as Out pt DW Family BIPAP prn and at night Stable on RA Luis Armando Sawyer MD Aug 05, 2017 18:46
[2017-08-05] MEDS: ATORVASTATIN 40 MG TAB PO SCH (21:44)
[2017-08-06] VITALS (8 sets, daily range): BP systolic 124–148; BP diastolic 65–78; PULSE 72–87; RESP 20–22; TEMP 97.5–98.2; O2SAT 91–95
[2017-08-06] MEDS: HALOPERIDOL LACTATE 5 MG/ML AMP IM PRN (00:54)
[2017-08-06] MEDS: ACETAMINOPHEN/HYDROcodone 325 MG/10 MG TAB PO PRN ×5 (00:54→17:51)
[2017-08-06] MEDS: MORPHINE SULFATE 4 MG/ML INJ IV PUSH PRN ×3 (02:58→10:40)
[2017-08-06] MEDS: CHLORHEXIDINE GLUCONATE 2 % 1 PACK (2 CLOTHS) TOP SCH (04:00)
[2017-08-06] MEDS: GABAPENTIN 300 MG CAP PO SCH ×3 (04:54→20:37)
[2017-08-06 05:31] LABS: HEMATOCRIT 26.2 % (39.0-51.0); HEMOGLOBIN 8.4 GM/DL (13.0-17.0); MEAN CELL VOLUME 81.6 FL (80.0-100.0); MEAN CORPUSCULAR HEMOGLOBIN 26.2 PG (27.0-34.0); MEAN CORPUSCULAR HGB CONC 32.1 % (32.0-36.0); MEAN PLATELET VOLUME 7.7 FL (7.0-11.0); PLATELET COUNT 227 TH/MM3 (150-450); RED CELL DISTRIBUTION WIDTH 14.5 % (11.6-17.2); WHITE BLOOD COUNT 11.2 TH/MM3 (4.0-11.0)
[2017-08-06] MEDS ORDERED: SODIUM CHLORIDE 0.65% NASAL SPRAY 45 ML BTL EACH NARE PRN (08:00)
--- NOTE | 2017-08-06 08:06 | HHI.PR ---
Subjective Remarks Pt complains of increased anxiety this morning He feels that he is congested and its making it more difficult to breath which is making him more anxious He reports that the increased pain medication is helping but states that it doesn't last long enough He is much more clear headed today and denies any more hallucinations. He states that he is still having some jerking movements in his extremities but notices that more when he is more anxious Objective Vitals Vital Signs Date Time Temp Pulse Resp B/P (MAP) Pulse Ox O2 Delivery O2 Flow Rate FiO2 08/06/17 04:17 98.2 80 21 129/78 (95) 92 08/06/17 00:01 98.1 87 20 127/70 (89) 94 08/05/17 20:13 97.8 77 18 132/68 (89) 95 08/05/17 16:00 98.2 78 18 121/66 (84) 92 08/05/17 13:27 92 08/05/17 12:00 97.8 108 20 151/91 (111) 92 08/05/17 08:00 97.8 95 20 135/64 (87) 92 Result Diagram: 08/06/17 0431 08/05/17 0904 Other Results Laboratory Tests Test 08/04/17 09:55 08/05/17 09:04 08/06/17 04:31 White Blood Count 12.4 TH/MM3 11.8 TH/MM3 11.2 TH/MM3 Red Blood Count 3.20 MIL/MM3 3.26 MIL/MM3 3.20 MIL/MM3 Hemoglobin 8.4 GM/DL 8.7 GM/DL 8.4 GM/DL Hematocrit 25.9 % 26.6 % 26.2 % Mean Corpuscular Volume 81.0 FL 81.5 FL 81.6 FL Mean Corpuscular Hemoglobin 26.4 PG 26.6 PG 26.2 PG Mean Corpuscular Hemoglobin Concent 32.6 % 32.6 % 32.1 % Red Cell Distribution Width 15.3 % 14.6 % 14.5 % Platelet Count 244 TH/MM3 230 TH/MM3 227 TH/MM3 Mean Platelet Volume 7.4 FL 7.7 FL 7.7 FL Neutrophils (%) (Auto) 72.3 % 71.6 % Lymphocytes (%) (Auto) 13.2 % 11.8 % Monocytes (%) (Auto) 13.4 % 14.8 % Eosinophils (%) (Auto) 0.8 % 1.3 % Basophils (%) (Auto) 0.3 % 0.5 % Neutrophils # (Auto) 9.0 TH/MM3 8.4 TH/MM3 Lymphocytes # (Auto) 1.6 TH/MM3 1.4 TH/MM3 Monocytes # (Auto) 1.7 TH/MM3 1.8 TH/MM3 Eosinophils # (Auto) 0.1 TH/MM3 0.2 TH/MM3 Basophils # (Auto) 0.0 TH/MM3 0.1 TH/MM3 CBC Comment DIFF FINAL DIFF FINAL Differential Comment Blood Urea Nitrogen 35 MG/DL 38 MG/DL Creatinine 1.57 MG/DL 1.35 MG/DL Random Glucose 99 MG/DL 178 MG/DL Calcium Level 8.2 MG/DL 8.0 MG/DL Sodium Level 138 MEQ/L 133 MEQ/L Potassium Level 4.1 MEQ/L 4.5 MEQ/L Chloride Level 99 MEQ/L 96 MEQ/L Carbon Dioxide Level 32.4 MEQ/L 26.8 MEQ/L Anion Gap 7 MEQ/L 10 MEQ/L Estimat Glomerular Filtration Rate 48 ML/MIN 57 ML/MIN Hematology Comments Magnesium Level 1.9 MG/DL Imaging Last Impressions Head CT 08/04/17 0000 Signed Impressions: CONCLUSION: No acute intracranial findings. Ankle X-Ray 07/24/17 1256 Signed Impressions: CONCLUSION: 1. An apparent focal cortical break of the calcaneus just posterior to the sub talar joint. This appears new. 2. Splint present. 3. Multifocal ankle and hindfoot osteoarthritis. 4. Accessory navicular and large os peroneum. Chest X-Ray 07/23/17 0600 Signed Impressions: CONCLUSION: Cardiomegaly. Ankle MRI 07/21/17 0000 Signed Impressions: CONCLUSION: 1. Severe tendinopathy of the distal Achilles tendon with full-thickness tear. Tiny intact strand of tendon present medially. There is also partial avulsion of the Achilles tendon at the insertion site on the calcaneus. 2. Severe marrow edema posterior calcaneus especially the lateral aspect, prob ably a small impaction fracture. 3. Mild contusion posterior talus. 4. Small ankle joint effusion. Extensive subcutaneous edema. Lung Scan-V Nuclear Medicine 07/19/17 1528 Signed Impressions: CONCLUSION: 1. Low probability for pulmonary embolism. Compensated cardiomegaly. If high c linical suspicion CT angiogram would be of benefit. Objective Remarks GENERAL: This is a Morbidly obese 47 year old male patient, in no apparent distress. CARDIO: Regular rate and rhythm RESP: clear bilaterally ABD: Abdomen soft, non-tender, nondistended. Normal active bowel sounds EXT: Right lower extremity is wrapped in Ronnell bandage with a heel splint in place. 1-2+ pitting edema on the left, 2-3+ on the RLE and increased pain on the RLE with palpation. Procedures Open repair of right Achilles tendon rupture with flexor hallucis longus tendon transfer and gastrocnemius recession, right lower extremity on 07/24/[address] Murillo. A/P Problem List: (1) Hypercapnic respiratory failure ICD Codes: J96.92 - Respiratory failure, unspecified with hypercapnia Plan: Hypercapnic respiratory insufficiency Obesity hypoventilation syndrome COPD exacerbation - Pt is a 47 y/o male with morbid obesity and asthma/COPD who [place] [facility] [place] with new onset worsening shortness of breath and presyncopal type symptoms for the last 1 week. - In the emergency department he was found to be quite hypoxic and hypercarbic with a primary respiratory acidosis and was placed on BiPAP and was admitted to ICU under the care of the Intensivists - Likely from his underlying sleep apnea - Patient was not on BiPAP at home prior to admission - comgmt with Pulm Med, Cardiology - BiPAP at night - Solu-Medrol changed to PO prednisone taper on 07/30, pt currently on Prednisone 10mg po daily - alhaji prn - Head of bed elevated 30 - VQ scan (07/21) --> low probability - 2-D echocardiogram 07/23/17: - The left ventricular systolic function is mildly reduced with an estimated ejection fraction in the range of 45- 50%. - Mild infero-posterior hypokinesis - Mild concentric left ventricular hypertrophy. - The left atrial size is moderately dilated. - Case d/w Cardiology, Dr. Hirsch, (07/27). - RHC completed (07/28) --> Class 2 Pulm HTN, PCW 23 - No Right heart strain, so sildenafil was stopped - Pt was on Lasix 80mg IV BID for volume overload, the Lasix was decreased to 40mg IV BID on 08/03 - Patient voided 6500 ml 07/30, 9350 ml on 10/31, 7400 ml on 07/22, 4000 ml on , 3500 ml on 08/03, pt has continued to void around 3000mL the last 2 days. - Creatinine increased to 1.35 on 08/05 Achilles rupture, right - At admission pt reported approximately 3 days prior to admission he had sudden onset right ankle pain and swelling and went to be evaluated by field support rep and was diagnosed with a possible Achilles tendon rupture. - Pt underwent open repair of right Achilles tendon rupture with flexor hallucis longus tendon transfer and gastrocnemius recession, right lower extremity on 07/24/[address] Murillo. - Per podiatry: Recommend rehab if patient unable to maintain non weight bearing status - Pt had dressing change 07/31. Pt healing well. - Per podiatry, pt will need to be strict non-weight bearing for 6-8 weeks. - Pt was noted to have increased swelling and pain in the RLE on 08/04 - LE Doppler US (08/04) --> Is negative for DVT - Morphine 4mg Q4H PRN for breakthrough was added on 08/04 - Ulysses increased to 10/325mg q4h prn on 08/05 - Cont. gabapentin 300mg tid and tizanidine 2mg po q12h - Podiatry was reconsulted to re-evaluate as pt has not been compliant with the NWB status - Appreciate podiatry re-evaluating the wound on 08/05. They noted the "RLE posterior incision line is well coapted with all sutures intact, mild ecchymosis. No drainage. No erythema. Mild/mod edema to proximal calf." - Recommended continued NWB status to the RLE - A new splint ordered and RLE wrapped to the knee. - Cont to ice and elevate - Pt will need to f/u with at d/c - Pt will need SNF upon discharge. DM (diabetes mellitus) - Pts BS this morning was in the 80s - Cont. Metformin - Amaryl 4mg BID and Levemir stopped on 08/04 as BS were running low but then BS began running high again - Amaryl 2mg BID added back on 08/05 - Cont. on NovoLog SSI - will need to watch glucose closely as prednisone is tapered CAD (coronary artery disease) Recent history of pulmonary embolism - Patient had a PE approximately 8 months ago and was on Coumadin for until the cardiac cauterization 06/17/17 - Patient with recent cardiac catheterization with PCI 06/17/17 - After catheterization patient's Coumadin was DC'd and he was started on Aspirin and Plavix - Continue patient's Aspirin 81 mg daily, Plavix 75 mg PO daily, Atorvastatin 40 mg PO QHS and Coreg BID Hypertension - Pt is currently on Losartan 50 mg Q12H, Hydralazine 100mg TID, Procardia xl 60mg BID, Coreg 37.5mg BID, and Isosorbide 10mg q8h - Pts BP in the mornings after morning meds has been dropping with systolic into the 90s - Stop the Isosorbide on 08/04 and decrease Hydralazine to 50mg TID and monitor - BP has been better controlled. - labetalol and Clonidine prn - pain, narcotic dependency, and anxiety may be contributing - would prefer to minimize narcotics/benzodiazepines d/t JUDY and respiratory suppression Anxiety and depression Auditory and visual hallucinations - Psychiatry was reconsulted on 08/03 - ABG was checked and was stable - Head CT was negative. - Repeat labs on 08/03 noted a slight increase in creatinine but otherwise were stable - Pt is more lucid today - EEG (08/04) --> Mild encephalopathy - Continue home alprazolam 0.5 mg BID as needed - Continue home paroxetine 20 mg p.o. daily for depression - Seroquel increased to 100mg po BID on 08/04 by psychiatry but pts is refusing this medication for him due to possible side effects - Seroquel stopped on 08/05 and pt appears to be doing much better from a mental status standpoint. - He is still having issues with anxiety and reports that he gets more of the extremity twitching when he is more anxious. - Pt has Haldol 5mg IM Q6H PRN ordered Morbid obesity - Patient to follow up with PCP for further weight loss and possible referral to bariatric surgery Hyperkalemia - Pt still with hyperkalemia despite multiple doses of Kayexalate - K 6.0, 5.9, 5.2 (07/27) - K 5.2, 5.2, 5.3 (07/28) - calcium gluconate/ insulin with D50 given 07/28 - K 5.1 (07/29) -> K 4.7 (07/30) -> K 5.0 (07/31) -> K 4.7 (08/01) -> 4.3 (08/02) - Awaiting recheck BMP this AM - r/o hypoaldosteronism - ACTH < 5, serum cortisol 9.7, renin 18, serum aldosterone 1.0. DVT prophylaxis with Lovenox 40 mg subq twice daily (2) COPD exacerbation ICD Codes: J44.1 - Chronic obstructive pulmonary disease with (acute) exacerbation (3) Achilles rupture, right ICD Codes: S86.011A - Strain of right Achilles tendon, initial encounter (4) DM (diabetes mellitus) ICD Codes: E11.9 - Type 2 diabetes mellitus without complications Status: Chronic (5) CAD (coronary artery disease) ICD Codes: I25.10 - Atherosclerotic heart disease of false pass coronary artery without angina pectoris (6) Anxiety and depression ICD Codes: F41.9 - Anxiety disorder, unspecified; F32.9 - Major depressive disorder, single episode, unspecified (7) Morbid obesity ICD Codes: E66.01 - Morbid (severe) obesity due to excess calories (8) Hyperkalemia ICD Codes: E87.5 - Hyperkalemia (9) Hypertension ICD Codes: I10 - Essential (primary) hypertension Status: Chronic Assessment and Plan Patient examined. Assessment and plan formulated with Minda Almazan PA-C. I agree with the above. pt appears stable. intermittent twitching. calm and cooperative rle wound evaluated by podiatry and redressed. prn pain meds would benefit from snf if they will accept it. hopefully d/c early this week. Problem Qualifiers (1) DM (diabetes mellitus): Qualified Codes: E11.8 - Type 2 diabetes mellitus with unspecified complications; Z79.4 - alf (current) use of insulin (2) Hypertension: Qualified Codes: I10 - Essential (primary) hypertension Minda Almazan Aug 06, 2017 08:06 Jonathan Melissa MD Aug 06, 2017 12:44
[2017-08-06] MEDS: LORazepam 0.5 MG TAB PO PRN (08:20)
[2017-08-06] MEDS: INSULIN ASPART SUPPLEMENTAL SCALE SQ SCH ×4 (08:43→21:00)
[2017-08-06] MEDS: FAMOTIDINE 20 MG TAB PO SCH ×2 (08:44→20:35)
[2017-08-06] MEDS: metFORMIN HCL 500 MG TAB PO SCH ×2 (08:44→20:34)
[2017-08-06] MEDS: ENOXAPARIN SODIUM 40 MG/0.4 ML SYRINGE SQ SCH ×2 (08:44→20:33)
[2017-08-06] MEDS: LOSARTAN 50 MG TAB PO SCH ×2 (08:44→20:35)
[2017-08-06] MEDS: hydrALAZINE HCL 50 MG TAB PO SCH ×3 (08:44→17:50)
[2017-08-06] MEDS: CLOPIDOGREL 75 MG TAB PO SCH (08:44)
[2017-08-06] MEDS: ASPIRIN EC 81 MG TABEC PO SCH (08:45)
[2017-08-06] MEDS: PARoxetine HCL 20 MG TAB PO SCH (08:45)
[2017-08-06] MEDS: predniSONE 10 MG TAB PO SCH (08:45)
[2017-08-06] MEDS: FUROSEMIDE 40 MG TAB PO SCH ×2 (08:45→17:50)
[2017-08-06] MEDS: NIFEdipine 60 MG SUSTAINED RELEASE TAB PO SCH ×2 (08:45→20:34)
[2017-08-06] MEDS: ALLOPURINOL 100 MG TAB PO SCH (08:45)
[2017-08-06] MEDS: DOCUSATE SODIUM 50 MG/SENNA 8.6 MG TAB PO SCH ×2 (08:45→20:35)
[2017-08-06] MEDS: CARVEDILOL 12.5 MG TAB PO SCH ×2 (08:46→20:35)
[2017-08-06] MEDS: GLIMEPIRIDE 2 MG TAB PO SCH ×2 (08:50→17:50)
[2017-08-06] MEDS ORDERED: SODIUM CHLORIDE 0.65% NASAL SPRAY 45 ML BTL EACH NARE ONE (09:00)
--- NOTE | 2017-08-06 10:09 | HHI.PR ---
Subjective Remarks 47 YO Obese male with Br Asthma, HTN,DM,CAD with achilles tendon rupture s/p repair. Patient is on room air oxygen when seen. Afebrile. Reports feeling tired. Objective Vital Signs Vital Signs Date Time Temp Pulse Resp B/P (MAP) Pulse Ox O2 Delivery O2 Flow Rate FiO2 08/06/17 08:53 97.8 85 22 148/70 (96) 91 08/06/17 04:17 98.2 80 21 129/78 (95) 92 08/06/17 00:01 98.1 87 20 127/70 (89) 94 08/05/17 20:13 97.8 77 18 132/68 (89) 95 08/05/17 16:00 98.2 78 18 121/66 (84) 92 08/05/17 13:27 92 08/05/17 12:00 97.8 108 20 151/91 (111) 92 I/O 08/05/17 08/05/17 08/05/17 08/06/17 08/06/17 08/06/17 06:59 14:59 22:59 06:59 14:59 22:59 Intake Total 780 ml 740 ml 780 ml Output Total 1800 ml 1100 ml 1850 ml Balance -1020 ml -360 ml -1070 ml Intake Oral 780 ml 740 ml 780 ml Output Urine Total 1800 ml 1100 ml 1850 ml Drainage Total 0 ml # Bowel Movements 0 Result Diagram: 08/06/17 0431 08/05/17 0904 Other Results Last Impressions Lower Extremity Ultrasound 08/04/17 0000 Signed Impressions: CONCLUSION: 1. The study is negative for right lower extremity deep venous thrombosis. Head CT 08/04/17 0000 Signed Impressions: CONCLUSION: No acute intracranial findings. Ankle X-Ray 07/24/17 1256 Signed Impressions: CONCLUSION: 1. An apparent focal cortical break of the calcaneus just posterior to the sub talar joint. This appears new. 2. Splint present. 3. Multifocal ankle and hindfoot osteoarthritis. 4. Accessory navicular and large os peroneum. Chest X-Ray 07/23/17 0600 Signed Impressions: CONCLUSION: Cardiomegaly. Ankle MRI 07/21/17 0000 Signed Impressions: CONCLUSION: 1. Severe tendinopathy of the distal Achilles tendon with full-thickness tear. Tiny intact strand of tendon present medially. There is also partial avulsion of the Achilles tendon at the insertion site on the calcaneus. 2. Severe marrow edema posterior calcaneus especially the lateral aspect, prob ably a small impaction fracture. 3. Mild contusion posterior talus. 4. Small ankle joint effusion. Extensive subcutaneous edema. Lung Scan-V Nuclear Medicine 07/19/17 3838 Signed Impressions: CONCLUSION: 1. Low probability for pulmonary embolism. Compensated cardiomegaly. If high c linical suspicion CT angiogram would be of benefit. Objective Remarks GENERAL: Obese WM, NAD SKIN: Warm and dry. HEAD: Normocephalic. EYES: No scleral icterus. No injection or drainage. NECK: Supple, trachea midline. No JVD or lymphadenopathy. CARDIOVASCULAR: Regular rate and rhythm without murmurs, gallops, or rubs. RESPIRATORY: Breath sounds equal bilaterally. No accessory muscle use. GASTROINTESTINAL: Abdomen soft, non-tender, nondistended. MUSCULOSKELETAL: No cyanosis, or edema. BACK: Nontender without obvious deformity. No CVA tenderness. A/P Assessment and Plan IMPRESSION: 1. Hypercapnic respiratory insufficiency, likely from his underlying sleep apnea. 2 Morbid obesity/JUDY 2. History of asthma. 3. Diabetes mellitus. 4. Hypertension. 5. Coronary artery disease, status post stent placement 6. History of pulmonary embolism. He is off anticoagulation. 7. Restrictive lung disease PLAN; 02 PRN to keep sat 88-92 % Bronchodilators PFT showed restrictive lung disease with bronchodilators response Sleep study as Out pt BIPAP prn and at night GI/DVT prophylaxis- On Lovenox 40mg Q12 Continue other treatment plan per primary team Janey Mcdonald MD Aug 06, 2017 10:09
--- NOTE | 2017-08-06 15:16 | HHI.NPPN ---
Subjective General Problems: Edema, Hypertension, Obesity History of Present Illness Patient is a 47-year-old morbidly obese male diabetes, right Achilles tendon surgery, who has anasarca and states his right leg is very painful Additional Remarks drowsy, offered no complaints. Renal function is stable Review of Systems Respiratory Respiratory Remarks Denies Shortness of breath Cardiovascular Cardiac: Edema Musculoskeletal MS: Pain/Stiffness Objective Data Data Vital Signs Date Time Temp Pulse Resp B/P (MAP) Pulse Ox O2 Delivery O2 Flow Rate FiO2 08/06/17 15:02 94 21 08/06/17 12:00 98.1 83 20 146/69 (94) 94 08/06/17 08:53 97.8 85 22 148/70 (96) 91 08/06/17 04:17 98.2 80 21 129/78 (95) 92 08/06/17 00:01 98.1 87 20 127/70 (89) 94 08/05/17 20:13 97.8 77 18 132/68 (89) 95 08/05/17 16:00 98.2 78 18 121/66 (84) 92 -: 08/06/17 0431 08/05/17 0904 Physical Exam General Appearance: Well Developed, Obese Throat Throat Exam: Oral Mucosa [place] & Moist Neck Neck Exam: Neck Supple Pulmonary Resp Exam: Clear Bilaterally, Breath Sounds Equal Cardiology CV Exam: Regular, Normal Sinus Rhythm Gastrointestinal/Abdomen GI Exam: Soft, Non-Tender, Bowel Sounds Present Extremeties Extremities Exam: Moderate Edema Neurologic Neuro Exam: Alert, Awake Psychiatric Psych Exam: Appropriate Responses Assessment/Plan Problem List: (1) Hyperkalemia ICD Codes: E87.5 - Hyperkalemia Plan: Patient potassium level have improved and normal Continue low potassium diet Continue Lasix 40 mg twice daily (2) LISS (acute kidney injury) ICD Codes: N17.9 - Acute kidney failure, unspecified Status: Resolved Plan: Improved. Continue supportive care. Avoid nephrotoxic agents. (3) Diabetes mellitus with hyperglycemia ICD Codes: E11.65 - Type 2 diabetes mellitus with hyperglycemia Status: Acute Plan: Blood glucose was high this is being monitored (4) Hypertension ICD Codes: I10 - Essential (primary) hypertension Status: Chronic Plan: Blood pressure has improved. Continue to monitor (5) Achilles rupture, right ICD Codes: S86.011A - Strain of right Achilles tendon, initial encounter Plan: Increased pain. Has not been complaint with non weight bearing Podiatry has been reconsulted. Problem Qualifiers (1) Hypertension: Qualified Codes: I10 - Essential (primary) hypertension Marco Aleman MD Aug 06, 2017 15:16
[2017-08-06] MEDS: ATORVASTATIN 40 MG TAB PO SCH (20:35)
[2017-08-07] VITALS (9 sets, daily range): BP systolic 131–147; BP diastolic 65–82; PULSE 75–89; RESP 16–20; TEMP 97.2–97.8; O2SAT 92–97
[2017-08-07] MEDS: CHLORHEXIDINE GLUCONATE 2 % 1 PACK (2 CLOTHS) TOP SCH (03:09)
[2017-08-07] MEDS: GLIMEPIRIDE 2 MG TAB PO SCH ×2 (06:10→15:24)
[2017-08-07] MEDS: GABAPENTIN 300 MG CAP PO SCH ×3 (06:10→21:24)
[2017-08-07] MEDS: INSULIN ASPART SUPPLEMENTAL SCALE SQ SCH ×4 (08:00→21:00)
[2017-08-07] MEDS: ENOXAPARIN SODIUM 40 MG/0.4 ML SYRINGE SQ SCH ×2 (09:20→21:23)
[2017-08-07] MEDS: LORazepam 0.5 MG TAB PO PRN ×2 (09:20→22:38)
[2017-08-07] MEDS: DOCUSATE SODIUM 50 MG/SENNA 8.6 MG TAB PO SCH ×2 (09:20→21:00)
[2017-08-07] MEDS: metFORMIN HCL 500 MG TAB PO SCH ×2 (09:20→21:24)
[2017-08-07] MEDS: CLOPIDOGREL 75 MG TAB PO SCH (09:20)
[2017-08-07] MEDS: LOSARTAN 50 MG TAB PO SCH ×2 (09:20→21:24)
[2017-08-07] MEDS: CARVEDILOL 12.5 MG TAB PO SCH ×2 (09:21→21:25)
[2017-08-07] MEDS: predniSONE 10 MG TAB PO SCH (09:21)
[2017-08-07] MEDS: FAMOTIDINE 20 MG TAB PO SCH ×2 (09:21→21:23)
[2017-08-07] MEDS: NIFEdipine 60 MG SUSTAINED RELEASE TAB PO SCH ×2 (09:21→21:25)
[2017-08-07] MEDS: ALLOPURINOL 100 MG TAB PO SCH (09:21)
[2017-08-07] MEDS: FUROSEMIDE 40 MG TAB PO SCH (09:21)
[2017-08-07] MEDS: ASPIRIN EC 81 MG TABEC PO SCH (09:21)
[2017-08-07] MEDS: PARoxetine HCL 20 MG TAB PO SCH (09:21)
[2017-08-07] MEDS: hydrALAZINE HCL 50 MG TAB PO SCH ×3 (09:21→16:59)
--- NOTE | 2017-08-07 09:28 | HHI.PR ---
Subjective Remarks Pt reports that he is trying to minimize the pain medications, it has been 14 hours since he has used Ridott and 22 hours since he has used Morphine but he is having a lot of pain this morning. He is feeling rather anxious this morning because he felt more SOB trying to ambulate from the bed to the chair this morning. Pt is on 2L via NC Objective Vitals Vital Signs Date Time Temp Pulse Resp B/P (MAP) Pulse Ox O2 Delivery O2 Flow Rate FiO2 08/07/17 08:00 97.2 86 16 145/65 (91) 92 08/07/17 06:19 96 Nasal Cannula 2.00 08/07/17 04:00 97.4 86 20 135/82 (99) 96 08/07/17 03:56 78 08/07/17 00:03 77 08/07/17 00:00 97.5 75 20 132/65 (87) 97 08/06/17 21:30 Nasal Cannula 2.00 08/06/17 20:38 91 Nasal Cannula 2.00 08/06/17 20:00 97.5 74 20 124/65 (84) 94 08/06/17 19:38 72 08/06/17 16:00 98.1 80 20 145/69 (94) 95 08/06/17 15:02 94 21 08/06/17 12:00 98.1 83 20 146/69 (94) 94 Result Diagram: 08/06/17 0431 08/05/17 0904 Other Results Laboratory Tests Test 08/06/17 04:31 White Blood Count 11.2 TH/MM3 Red Blood Count 3.20 MIL/MM3 Hemoglobin 8.4 GM/DL Hematocrit 26.2 % Mean Corpuscular Volume 81.6 FL Mean Corpuscular Hemoglobin 26.2 PG Mean Corpuscular Hemoglobin Concent 32.1 % Red Cell Distribution Width 14.5 % Platelet Count 227 TH/MM3 Mean Platelet Volume 7.7 FL Imaging Last Impressions Head CT 08/04/17 0000 Signed Impressions: CONCLUSION: No acute intracranial findings. Ankle X-Ray 07/24/17 1256 Signed Impressions: CONCLUSION: 1. An apparent focal cortical break of the calcaneus just posterior to the sub talar joint. This appears new. 2. Splint present. 3. Multifocal ankle and hindfoot osteoarthritis. 4. Accessory navicular and large os peroneum. Chest X-Ray 07/23/17 0600 Signed Impressions: CONCLUSION: Cardiomegaly. Ankle MRI 07/21/17 0000 Signed Impressions: CONCLUSION: 1. Severe tendinopathy of the distal Achilles tendon with full-thickness tear. Tiny intact strand of tendon present medially. There is also partial avulsion of the Achilles tendon at the insertion site on the calcaneus. 2. Severe marrow edema posterior calcaneus especially the lateral aspect, prob ably a small impaction fracture. 3. Mild contusion posterior talus. 4. Small ankle joint effusion. Extensive subcutaneous edema. Lung Scan-VQ Nuclear Medicine 07/19/17 1528 Signed Impressions: CONCLUSION: 1. Low probability for pulmonary embolism. Compensated cardiomegaly. If high c linical suspicion CT angiogram would be of benefit. Objective Remarks GENERAL: This is a Morbidly obese 47 year old male patient, in no apparent distress. CARDIO: Regular rate and rhythm RESP: clear bilaterally ABD: Abdomen soft, non-tender, nondistended. Normal active bowel sounds EXT: Right lower extremity is wrapped in Ronnell bandage with a heel splint in place. 1-2+ pitting edema on the left, 1-2+ on the RLE and increased pain on the RLE with palpation. Procedures Open repair of right Achilles tendon rupture with flexor hallucis longus tendon transfer and gastrocnemius recession, right lower extremity on 07/24/[address] Murillo. A/P Problem List: (1) Hypercapnic respiratory failure ICD Codes: J96.92 - Respiratory failure, unspecified with hypercapnia Plan: Hypercapnic respiratory insufficiency Obesity hypoventilation syndrome COPD exacerbation - Pt is a 47 y/o male with morbid obesity and asthma/COPD who presents to the ED at [facility] on 07/19/17 with new onset worsening shortness of breath and presyncopal type symptoms for the last 1 week. - In the emergency department he was found to be quite hypoxic and hypercarbic with a primary respiratory acidosis and was placed on BiPAP and was admitted to ICU under the care of the Intensivists - Likely from his underlying sleep apnea - Patient was not on BiPAP at home prior to admission - comgmt with Pulm Med, Cardiology - BiPAP at night - Solu-Medrol changed to PO prednisone taper on 07/30, pt currently on Prednisone 10mg po daily - duonebs prn - Head of bed elevated 30 - VQ scan (07/21) --> low probability - 2-D echocardiogram 07/23/17: - The left ventricular systolic function is mildly reduced with an estimated ejection fraction in the range of 45- 50%. - Mild infero-posterior hypokinesis - Mild concentric left ventricular hypertrophy. - The left atrial size is moderately dilated. - Case d/w Cardiology, Dr. Hirsch, (07/27). - RHC completed (07/28) --> Class 2 Pulm HTN, PCW 23 - No Right heart strain, so sildenafil was stopped - Pt was on Lasix 80mg IV BID for volume overload, the Lasix was decreased to 40mg IV BID on 08/03 - Patient voided 6500 ml 07/30, 9350 ml on 10/31, 7400 ml on 07/22, 4000 ml on , 3500 ml on 08/03, pt has continued to void around 3000mL the last 2 days. - Creatinine increased to 1.35 on 08/05 Achilles rupture, right - At admission pt reported approximately 3 days prior to admission he had sudden onset right ankle pain and swelling and went to be evaluated by heel nailing machine operator and was diagnosed with a possible Achilles tendon rupture. - Pt underwent open repair of right Achilles tendon rupture with flexor hallucis longus tendon transfer and gastrocnemius recession, right lower extremity on 07/24/[address] Murillo. - Per podiatry: Recommend rehab if patient unable to maintain non weight bearing status - Pt had dressing change 07/31. Pt healing well. - Per podiatry, pt will need to be strict non-weight bearing for 6-8 weeks. - Pt was noted to have increased swelling and pain in the RLE on 08/04 - LE Doppler US (08/04) --> Is negative for DVT - Morphine 4mg Q4H PRN for breakthrough was added on 08/04 - Ridott increased to 10/325mg q4h prn on 08/05 - Pt is trying to minimize narcotic use - Cont. gabapentin 300mg tid and tizanidine 2mg po q12h - Podiatry was reconsulted to re-evaluate as pt has not been compliant with the NWB status - Appreciate podiatry re-evaluating the wound on 6/15. They noted the "RLE posterior incision line is well coapted with all sutures intact, mild ecchymosis. No drainage. No erythema. Mild/mod edema to proximal calf." - Recommended continued NWB status to the RLE - A new splint ordered and RLE wrapped to the knee. - Cont to ice and elevate - Pt will need to f/u with at d/c - Pt will need SNF upon discharge. DM (diabetes mellitus) - Pts BS this morning was in the 80s - Cont. Metformin - Amaryl 4mg BID and Levemir stopped on 08/04 as BS were running low but then BS began running high again - Amaryl 2mg BID added back on 08/05 - Cont. on NovoLog SSI - will need to watch glucose closely as prednisone is tapered CAD (coronary artery disease) Recent history of pulmonary embolism - Patient had a PE approximately 8 months ago and was on Coumadin for until the cardiac cauterization 06/17/17 - Patient with recent cardiac catheterization with PCI 06/17/17 - After catheterization patient's Coumadin was DC'd and he was started on Aspirin and Plavix - Continue patient's Aspirin 81 mg daily, Plavix 75 mg PO daily, Atorvastatin 40 mg PO QHS and Coreg BID Hypertension - Pt is currently on Losartan 50 mg Q12H, Hydralazine 100mg TID, Procardia xl 60mg BID, Coreg 37.5mg BID, and Isosorbide 10mg q8h - Pts BP in the mornings after morning meds had been dropping with systolic into the 90s - Stop the Isosorbide on 08/04 and decrease Hydralazine to 50mg TID and monitor - BP has been better controlled. - labetalol and Clonidine prn - pain, narcotic dependency, and anxiety may be contributing - would prefer to minimize narcotics/benzodiazepines d/t JUDY and respiratory suppression Anxiety and depression Auditory and visual hallucinations - Psychiatry was reconsulted on 08/03 - ABG was checked and was stable - Head CT was negative. - Repeat labs on 08/03 noted a slight increase in creatinine but otherwise were stable - Pt is more lucid today - EEG (08/04) --> Mild encephalopathy - Continue home alprazolam 0.5 mg BID as needed - Continue home paroxetine 20 mg p.o. daily for depression - Seroquel increased to 100mg po BID on 08/04 by psychiatry but pts is refusing this medication for him due to possible side effects - Seroquel stopped on 08/05 and pt appears to be doing much better from a mental status standpoint. - He is still having issues with anxiety and reports that he gets more of the extremity twitching when he is more anxious. - Pt has Haldol 5mg IM Q6H PRN ordered Morbid obesity - Patient to follow up with PCP for further weight loss and possible referral to bariatric surgery Hyperkalemia - Pt still with hyperkalemia despite multiple doses of Kayexalate - K 6.0, 5.9, 5.2 (07/27) - K 5.2, 5.2, 5.3 (07/28) - calcium gluconate/ insulin with D50 given 07/28 - K 5.1 (07/29) -> K 4.7 (07/30) -> K 5.0 (07/31) -> K 4.7 (08/01) -> 4.3 (08/02) - Awaiting recheck BMP this AM - r/o hypoaldosteronism - ACTH < 5, serum cortisol 9.7, renin 18, serum aldosterone 1.0. DVT prophylaxis with Lovenox 40 mg subq twice daily (2) COPD exacerbation ICD Codes: J44.1 - Chronic obstructive pulmonary disease with (acute) exacerbation (3) Achilles rupture, right ICD Codes: S86.011A - Strain of right Achilles tendon, initial encounter (4) DM (diabetes mellitus) ICD Codes: E11.9 - Type 2 diabetes mellitus without complications Status: Chronic (5) CAD (coronary artery disease) ICD Codes: I25.10 - Atherosclerotic heart disease of [place] coronary artery without angina pectoris (6) Anxiety and depression ICD Codes: F41.9 - Anxiety disorder, unspecified; F32.9 - Major depressive disorder, single episode, unspecified (7) Morbid obesity ICD Codes: E66.01 - Morbid (severe) obesity due to excess calories (8) Hyperkalemia ICD Codes: E87.5 - Hyperkalemia (9) Hypertension ICD Codes: I10 - Essential (primary) hypertension Status: Chronic Assessment and Plan Patient examined. Assessment and plan formulated with Minda Almazan PA-C. I agree with the above. pt appears stable. intermittent twitching. calm and cooperative rle wound evaluated by podiatry and redressed. prn pain meds would benefit from snf if they will accept it. pt wants hhc/pt sore throat and sinus congestion. likely viral. uvula with white blistered appearance throat cx. chloroseptic. nasal spray. monitor for obvious thrush and consider nystatin prn. stop prednisone. plan dc home by Tuesday. Problem Qualifiers (1) DM (diabetes mellitus): Qualified Codes: E11.8 - Type 2 diabetes mellitus with unspecified complications; Z79.4 - intermediate (current) use of insulin (2) Hypertension: Qualified Codes: I10 - Essential (primary) hypertension Minda Almazan Aug 07, 2017 09:28 Jonathan Melissa MD Aug 07, 2017 15:36
[2017-08-07] MEDS: ACETAMINOPHEN/HYDROcodone 325 MG/10 MG TAB PO PRN ×4 (09:58→22:38)
--- NOTE | 2017-08-07 10:12 | HHI.NPPN ---
Subjective General Problems: Edema, Hypertension, Obesity History of Present Illness Patient is a 47-year-old morbidly obese male diabetes, right Achilles tendon surgery, who has anasarca and states his right leg is very painful Additional Remarks No complaints. No new labs. Review of Systems Respiratory Respiratory Remarks Denies Shortness of breath Cardiovascular Cardiac: Edema Musculoskeletal MS: Pain/Stiffness Objective Data Data Vital Signs Date Time Temp Pulse Resp B/P (MAP) Pulse Ox O2 Delivery O2 Flow Rate FiO2 08/07/17 09:27 Nasal Cannula 2.00 08/07/17 08:00 97.2 86 16 145/65 (91) 92 08/07/17 06:19 96 Nasal Cannula 2.00 08/07/17 04:00 97.4 86 20 135/82 (99) 96 08/07/17 03:56 78 08/07/17 00:03 77 08/07/17 00:00 97.5 75 20 132/65 (87) 97 08/06/17 21:30 Nasal Cannula 2.00 08/06/17 20:38 91 Nasal Cannula 2.00 08/06/17 20:00 97.5 74 20 124/65 (84) 94 08/06/17 19:38 72 08/06/17 16:00 98.1 80 20 145/69 (94) 95 08/06/17 15:02 94 21 08/06/17 12:00 98.1 83 20 146/69 (94) 94 -: 08/06/17 0431 08/05/17 0904 Physical Exam General Appearance: Well Developed, Obese Throat Throat Exam: Oral Mucosa [place] & Moist Neck Neck Exam: Neck Supple Pulmonary Resp Exam: Clear Bilaterally, Breath Sounds Equal Cardiology CV Exam: Regular, Normal Sinus Rhythm Gastrointestinal/Abdomen GI Exam: Soft, Non-Tender, Bowel Sounds Present Extremeties Extremities Exam: Moderate Edema Neurologic Neuro Exam: Alert, Awake Psychiatric Psych Exam: Appropriate Responses Assessment/Plan Problem List: (1) Hyperkalemia ICD Codes: E87.5 - Hyperkalemia Plan: Patient potassium level have improved and normal Continue low potassium diet Continue Lasix 40 mg twice daily Repeat labs. (2) LISS (acute kidney injury) ICD Codes: N17.9 - Acute kidney failure, unspecified Status: Resolved Plan: Improved. Continue supportive care. Avoid nephrotoxic agents. (3) Diabetes mellitus with hyperglycemia ICD Codes: E11.65 - Type 2 diabetes mellitus with hyperglycemia Status: Acute Plan: Blood glucose was high this is being monitored (4) Hypertension ICD Codes: I10 - Essential (primary) hypertension Status: Chronic Plan: Blood pressure has improved. Continue to monitor (5) Achilles rupture, right ICD Codes: S86.011A - Strain of right Achilles tendon, initial encounter Plan: Increased pain. Has not been complaint with non weight bearing Podiatry has been reconsulted. Problem Qualifiers (1) Hypertension: Qualified Codes: I10 - Essential (primary) hypertension Marco Aleman MD Aug 07, 2017 10:12
[2017-08-07] MEDS: MORPHINE SULFATE 4 MG/ML INJ IV PUSH PRN ×3 (10:56→18:50)
--- NOTE | 2017-08-07 11:00 | HHI.PR ---
Subjective Remarks 47 YO Obese male with Br Asthma, HTN,DM,CAD with achilles tendon rupture s/p repair. No events overnight. Patient is on 2L oxygen lying in bed in NAD. Objective Vital Signs Vital Signs Date Time Temp Pulse Resp B/P (MAP) Pulse Ox O2 Delivery O2 Flow Rate FiO2 08/07/17 09:27 Nasal Cannula 2.00 08/07/17 08:00 97.2 86 16 145/65 (91) 92 08/07/17 06:19 96 Nasal Cannula 2.00 08/07/17 04:00 97.4 86 20 135/82 (99) 96 08/07/17 03:56 78 08/07/17 00:03 77 08/07/17 00:00 97.5 75 20 132/65 (87) 97 08/06/17 21:30 Nasal Cannula 2.00 08/06/17 20:38 91 Nasal Cannula 2.00 08/06/17 20:00 97.5 74 20 124/65 (84) 94 08/06/17 19:38 72 08/06/17 16:00 98.1 80 20 145/69 (94) 95 08/06/17 15:02 94 21 08/06/17 12:00 98.1 83 20 146/69 (94) 94 I/O 08/06/17 08/06/17 08/06/17 08/07/17 08/07/17 08/07/17 07:00 15:00 23:00 07:00 15:00 23:00 Intake Total 780 ml 720 ml Output Total 1850 ml 1500 ml 850 ml Balance -1070 ml -780 ml -850 ml Intake Oral 780 ml 720 ml Output Urine Total 1850 ml 1500 ml 850 ml Result Diagram: 08/06/17 0431 08/05/17 0904 Other Results Last Impressions Lower Extremity Ultrasound 08/04/17 0000 Signed Impressions: CONCLUSION: 1. The study is negative for right lower extremity deep venous thrombosis. Head CT 08/04/17 0000 Signed Impressions: CONCLUSION: No acute intracranial findings. Ankle X-Ray 07/24/17 1256 Signed Impressions: CONCLUSION: 1. An apparent focal cortical break of the calcaneus just posterior to the sub talar joint. This appears new. 2. Splint present. 3. Multifocal ankle and hindfoot osteoarthritis. 4. Accessory navicular and large os peroneum. Chest X-Ray 07/23/17 0600 Signed Impressions: CONCLUSION: Cardiomegaly. Ankle MRI 07/21/17 0000 Signed Impressions: CONCLUSION: 1. Severe tendinopathy of the distal Achilles tendon with full-thickness tear. Tiny intact strand of tendon present medially. There is also partial avulsion of the Achilles tendon at the insertion site on the calcaneus. 2. Severe marrow edema posterior calcaneus especially the lateral aspect, prob ably a small impaction fracture. 3. Mild contusion posterior talus. 4. Small ankle joint effusion. Extensive subcutaneous edema. Lung Scan-VQ Nuclear Medicine 07/19/17 1528 Signed Impressions: CONCLUSION: 1. Low probability for pulmonary embolism. Compensated cardiomegaly. If high c linical suspicion CT angiogram would be of benefit. Objective Remarks GENERAL: Obese WM, NAD SKIN: Warm and dry. HEAD: Normocephalic. EYES: No scleral icterus. No injection or drainage. NECK: Supple, trachea midline. No JVD or lymphadenopathy. CARDIOVASCULAR: Regular rate and rhythm without murmurs, gallops, or rubs. RESPIRATORY: Breath sounds equal bilaterally. No accessory muscle use. GASTROINTESTINAL: Abdomen soft, non-tender, nondistended. MUSCULOSKELETAL: No cyanosis, or edema. BACK: Nontender without obvious deformity. No CVA tenderness. A/P Assessment and Plan IMPRESSION: 1. Hypercapnic respiratory insufficiency, likely from his underlying sleep apnea. 2 Morbid obesity/JUDY 2. History of asthma. 3. Diabetes mellitus. 4. Hypertension. 5. Coronary artery disease, status post stent placement 6. History of pulmonary embolism. He is off anticoagulation. 7. Restrictive lung disease PLAN; Continue with oxygen keep sat 88-92 % Bronchodilators PFT showed restrictive lung disease with bronchodilators response Sleep study as out pt BIPAP prn and at night GI/DVT prophylaxis- On Lovenox 40mg Q12 Continue other treatment plan per primary team Janey Mcdonald MD Aug 07, 2017 11:00
[2017-08-07 11:11] LABS: BICARBONATE 24.8 MEQ/L (21.0-32.0); CALCIUM 8.4 MG/DL (8.5-10.1); CREATININE 1.54 MG/DL (0.60-1.30)
[2017-08-07] MEDS ORDERED: PHENOL 1.4% SOLN 180 ML BTL OROPHARYNG PRN (15:30)
[2017-08-07] MEDS ORDERED: PHENOL 1.4% SOLN 180 ML BTL OROPHARYNG ONE (15:30)
[2017-08-07] MEDS ORDERED: BENZOCAINE 6 MG/MENTHOL 10 MG LOZENGE BUCCAL PRN (15:30)
[2017-08-07] MEDS: FLUTICASONE PROPIONATE 50 MCG/ACT 16 GM NASAL SPRAY EACH NARE SCH (16:56)
[2017-08-07] MEDS: ATORVASTATIN 40 MG TAB PO SCH (21:24)
[2017-08-08] VITALS (9 sets, daily range): BP systolic 119–151; BP diastolic 62–81; PULSE 76–97; RESP 16–19; TEMP 97.1–98.1; O2SAT 91–97
[2017-08-08] MEDS ORDERED: MORPHINE SULFATE 4 MG/ML INJ IV ONE (00:30)
[2017-08-08] MEDS: ACETAMINOPHEN/HYDROcodone 325 MG/10 MG TAB PO PRN ×5 (03:03→20:47)
[2017-08-08] MEDS: CHLORHEXIDINE GLUCONATE 2 % 1 PACK (2 CLOTHS) TOP SCH (03:04)
[2017-08-08] MEDS: GABAPENTIN 300 MG CAP PO SCH ×3 (06:24→20:47)
[2017-08-08] MEDS: GLIMEPIRIDE 2 MG TAB PO SCH ×2 (07:42→16:10)
[2017-08-08] MEDS: INSULIN ASPART SUPPLEMENTAL SCALE SQ SCH ×4 (08:00→20:48)
[2017-08-08] MEDS: ENOXAPARIN SODIUM 40 MG/0.4 ML SYRINGE SQ SCH ×2 (08:00→20:48)
[2017-08-08] MEDS: DOCUSATE SODIUM 50 MG/SENNA 8.6 MG TAB PO SCH ×2 (08:43→20:46)
[2017-08-08] MEDS: NIFEdipine 60 MG SUSTAINED RELEASE TAB PO SCH ×2 (08:43→20:45)
[2017-08-08] MEDS: metFORMIN HCL 500 MG TAB PO SCH ×2 (08:43→20:45)
[2017-08-08] MEDS: FAMOTIDINE 20 MG TAB PO SCH ×2 (08:43→20:45)
[2017-08-08] MEDS: ASPIRIN EC 81 MG TABEC PO SCH (08:43)
[2017-08-08] MEDS: LOSARTAN 50 MG TAB PO SCH ×2 (08:43→20:47)
[2017-08-08] MEDS: PARoxetine HCL 20 MG TAB PO SCH (08:43)
[2017-08-08] MEDS: CLOPIDOGREL 75 MG TAB PO SCH (08:43)
[2017-08-08] MEDS: ALLOPURINOL 100 MG TAB PO SCH (08:44)
[2017-08-08] MEDS: hydrALAZINE HCL 50 MG TAB PO SCH ×3 (08:46→16:11)
[2017-08-08] MEDS: CARVEDILOL 12.5 MG TAB PO SCH ×2 (08:46→20:45)
[2017-08-08] MEDS: FLUTICASONE PROPIONATE 50 MCG/ACT 16 GM NASAL SPRAY EACH NARE SCH (08:47)
[2017-08-08 09:23] LABS: AUTOMATED NEUTROPHIL # 5.4 TH/MM3 (1.8-7.7); BASOPHIL # 0.1 TH/MM3 (0-0.2); BASOPHIL % 0.8 % (0.0-2.0); EOSINOPHIL # 0.1 TH/MM3 (0-0.4); EOSINOPHIL % 1.5 % (0.0-4.0); HEMATOCRIT 24.4 % (39.0-51.0); HEMOGLOBIN 8.1 GM/DL (13.0-17.0); LYMPH % 12.9 % (9.0-44.0); MEAN CELL VOLUME 79.8 FL (80.0-100.0); MEAN CORPUSCULAR HEMOGLOBIN 26.6 PG (27.0-34.0); MEAN CORPUSCULAR HGB CONC 33.3 % (32.0-36.0); MEAN PLATELET VOLUME 7.4 FL (7.0-11.0); MONOCYTE # 1.1 TH/MM3 (0-0.9); NEUT % 70.8 % (16.0-70.0); PLATELET COUNT 264 TH/MM3 (150-450); RED BLOOD COUNT 3.05 MIL/MM3 (4.50-5.90); RED CELL DISTRIBUTION WIDTH 14.9 % (11.6-17.2); WHITE BLOOD COUNT 7.6 TH/MM3 (4.0-11.0)
--- NOTE | 2017-08-08 09:32 | HHI.PR ---
Subjective Remarks Pt is upset that his IV pain medication was taken away last night because he has been having increased pain overnight He states that there were issues with his bed not working last night which caused him to have more back pain as well Pt reports that his throat isn't as sore today. Throat culture is pending. Objective Vitals Vital Signs Date Time Temp Pulse Resp B/P (MAP) Pulse Ox O2 Delivery O2 Flow Rate FiO2 08/08/17 09:02 97 Nasal Cannula 2.00 08/08/17 08:00 97.4 77 16 119/67 (84) 97 08/08/17 04:50 97.4 76 18 147/69 (95) 93 08/08/17 04:00 76 08/08/17 00:00 84 08/08/17 00:00 97.5 80 18 130/62 (84) 95 08/07/17 20:00 93 Nasal Cannula 2.00 08/07/17 20:00 86 08/07/17 20:00 97.8 80 18 134/68 (90) 93 08/07/17 16:00 97.2 82 16 131/65 (87) 93 08/07/17 12:00 97.6 89 17 147/73 (97) 93 08/07/17 11:25 96 Nasal Cannula 2.00 08/07/17 09:27 Nasal Cannula 2.00 Result Diagram: 08/06/17 0431 08/07/17 1011 Other Results Laboratory Tests Test 08/07/17 10:11 08/08/17 07:47 Blood Urea Nitrogen 50 MG/DL Creatinine 1.54 MG/DL Random Glucose 146 MG/DL Calcium Level 8.4 MG/DL Sodium Level 126 MEQ/L Potassium Level 4.6 MEQ/L Chloride Level 91 MEQ/L Carbon Dioxide Level 24.8 MEQ/L Anion Gap 10 MEQ/L Estimat Glomerular Filtration Rate 49 ML/MIN White Blood Count 7.6 TH/MM3 Red Blood Count 3.05 MIL/MM3 Hemoglobin 8.1 GM/DL Hematocrit 24.4 % Mean Corpuscular Volume 79.8 FL Mean Corpuscular Hemoglobin 26.6 PG Mean Corpuscular Hemoglobin Concent 33.3 % Red Cell Distribution Width 14.9 % Platelet Count 264 TH/MM3 Mean Platelet Volume 7.4 FL Neutrophils (%) (Auto) 70.8 % Lymphocytes (%) (Auto) 12.9 % Monocytes (%) (Auto) 14.0 % Eosinophils (%) (Auto) 1.5 % Basophils (%) (Auto) 0.8 % Neutrophils # (Auto) 5.4 TH/MM3 Lymphocytes # (Auto) 1.0 TH/MM3 Monocytes # (Auto) 1.1 TH/MM3 Eosinophils # (Auto) 0.1 TH/MM3 Basophils # (Auto) 0.1 TH/MM3 CBC Comment DIFF FINAL Differential Comment Imaging Last Impressions Head CT 08/04/17 0000 Signed Impressions: CONCLUSION: No acute intracranial findings. Ankle X-Ray 07/24/17 1256 Signed Impressions: CONCLUSION: 1. An apparent focal cortical break of the calcaneus just posterior to the sub talar joint. This appears new. 2. Splint present. 3. Multifocal ankle and hindfoot osteoarthritis. 4. Accessory navicular and large os peroneum. Chest X-Ray 07/23/17 0600 Signed Impressions: CONCLUSION: Cardiomegaly. Ankle MRI 07/21/17 0000 Signed Impressions: CONCLUSION: 1. Severe tendinopathy of the distal Achilles tendon with full-thickness tear. Tiny intact strand of tendon present medially. There is also partial avulsion of the Achilles tendon at the insertion site on the calcaneus. 2. Severe marrow edema posterior calcaneus especially the lateral aspect, prob ably a small impaction fracture. 3. Mild contusion posterior talus. 4. Small ankle joint effusion. Extensive subcutaneous edema. Lung Scan-V Nuclear Medicine 07/19/17 1528 Signed Impressions: CONCLUSION: 1. Low probability for pulmonary embolism. Compensated cardiomegaly. If high c linical suspicion CT angiogram would be of benefit. Objective Remarks GENERAL: This is a Morbidly obese 47 year old male patient, in no apparent distress. ENT: Erythema in the posterior pharynx and blistering on the uvula CARDIO: Regular rate and rhythm RESP: clear bilaterally ABD: Abdomen soft, non-tender, nondistended. Normal active bowel sounds EXT: Right lower extremity is wrapped in Ronnell bandage with a heel splint in place. 1-2+ pitting edema on the left, 1-2+ on the RLE and increased pain on the RLE with palpation. Procedures Open repair of right Achilles tendon rupture with flexor hallucis longus tendon transfer and gastrocnemius recession, right lower extremity on 07/24/[address] Murillo. A/P Problem List: (1) Hypercapnic respiratory failure ICD Codes: J96.92 - Respiratory failure, unspecified with hypercapnia Plan: Hypercapnic respiratory insufficiency Obesity hypoventilation syndrome COPD exacerbation - Pt is a 47 y/o male with morbid obesity and asthma/COPD who presents to the ED at [facility] [place] on 07/19/17 with new onset worsening shortness of breath and presyncopal type symptoms for the last 1 week. - In the emergency department he was found to be quite hypoxic and hypercarbic with a primary respiratory acidosis and was placed on BiPAP and was admitted to ICU under the care of the Intensivists - Likely from his underlying sleep apnea - Patient was not on BiPAP at home prior to admission - comgmt with Pulm Med, Cardiology - BiPAP at night - Solu-Medrol changed to PO prednisone taper on 07/30, pt currently on Prednisone 10mg po daily - duonebs prn - Head of bed elevated 30 - VQ scan (07/21) --> low probability - 2-D echocardiogram 07/23/17: - The left ventricular systolic function is mildly reduced with an estimated ejection fraction in the range of 45- 50%. - Mild infero-posterior hypokinesis - Mild concentric left ventricular hypertrophy. - The left atrial size is moderately dilated. - Case d/w Cardiology, Dr. Hirsch, (07/27). - RHC completed (07/28) --> Class 2 Pulm HTN, PCW 23 - No Right heart strain, so sildenafil was stopped - Pt was on Lasix 80mg IV BID for volume overload, the Lasix was decreased to 40mg IV BID on 08/03 - Patient voided 6500 ml 07/30, 9350 ml on 10/31, 7400 ml on 07/22, 4000 ml on , 3500 ml on 08/03, pt has continued to void around 3000mL the last 2 days. - Lasix held on 08/07 due to rising creatinine - Creatinine increased to 1.54 on 08/07 - Await repeat labs today - Pt requiring supplemental O2 on and off the last 2-3 days. - Pt is going to need sleep study evaluation following discharge Achilles rupture, right - At admission pt reported approximately 3 days prior to admission he had sudden onset right ankle pain and swelling and went to be evaluated by chronometer assembler and was diagnosed with a possible Achilles tendon rupture. - Pt underwent open repair of right Achilles tendon rupture with flexor hallucis longus tendon transfer and gastrocnemius recession, right lower extremity on 07/24/[address] Murillo. - Per podiatry: Recommend rehab if patient unable to maintain non weight bearing status - Pt had dressing change 07/31. Pt healing well. - Per podiatry, pt will need to be strict non-weight bearing for 6-8 weeks. - Pt was noted to have increased swelling and pain in the RLE on 08/04 - LE Doppler US (08/04) --> Is negative for DVT - Morphine 4mg Q4H PRN for breakthrough was added on 08/04, this was stopped on in preparation for discharge - Vance increased to 10/325mg q4h prn on 08/05 - Pt is trying to minimize narcotic use - Cont. gabapentin 300mg tid and tizanidine 2mg po q12h - Podiatry was reconsulted to re-evaluate as pt has not been compliant with the NWB status - Appreciate podiatry re-evaluating the wound on 08/05. They noted the "RLE posterior incision line is well coapted with all sutures intact, mild ecchymosis. No drainage. No erythema. Mild/mod edema to proximal calf." - Recommended continued NWB status to the RLE - A new splint ordered and RLE wrapped to the knee. - Cont to ice and elevate - Pt will need to f/u with at d/c - Pt will need SNF upon discharge but pt and want HHC/PT. Sore throat/sinus congestion - Likely viral, uvula with white blistered appearance - Throat cx is pending. - Chloraseptic spray and lozenges PRN. - Saline nasal spray and Flonase. - Start nystatin S/S DM (diabetes mellitus) - Pts BS this morning was in the 80s - Cont. Metformin - Amaryl 4mg BID and Levemir stopped on 08/04 as BS were running low but then BS began running high again - Amaryl 2mg BID added back on 08/05 - Cont. on NovoLog SSI - BS better controlled CAD (coronary artery disease) Recent history of pulmonary embolism - Patient had a PE approximately 8 months ago and was on Coumadin for until the cardiac cauterization 06/17/17 - Patient with recent cardiac catheterization with PCI 06/17/17 - After catheterization patient's Coumadin was DC'd and he was started on Aspirin and Plavix - Continue patient's Aspirin 81 mg daily, Plavix 75 mg PO daily, Atorvastatin 40 mg PO QHS and Coreg BID Hypertension - Pt is currently on Losartan 50 mg Q12H, Hydralazine 100mg TID, Procardia xl 60mg BID, Coreg 37.5mg BID, and Isosorbide 10mg q8h - Pts BP in the mornings after morning meds had been dropping with systolic into the 90s - Stop the Isosorbide on 08/04 and decrease Hydralazine to 50mg TID and monitor - BP has been better controlled. - labetalol and Clonidine prn - pain, narcotic dependency, and anxiety may be contributing - would prefer to minimize narcotics/benzodiazepines d/t JUDY and respiratory suppression Anemia - Pts H/H has slowly been declining. No noted active GIB - Pts iron indices noted iron deficiency on 07/20 - Repeat iron indices today - Repeat H/H in AM Anxiety and depression Auditory and visual hallucinations - Psychiatry was reconsulted on 08/03 - ABG was checked and was stable - Head CT was negative. - Repeat labs on 08/03 noted a slight increase in creatinine but otherwise were stable - Pt is more lucid today - EEG (08/04) --> Mild encephalopathy - Continue home alprazolam 0.5 mg BID as needed - Continue home paroxetine 20 mg p.o. daily for depression - Seroquel increased to 100mg po BID on 08/04 by psychiatry but pts is refusing this medication for him due to possible side effects - Seroquel stopped on 08/05 and pt appears to be doing much better from a mental status standpoint. - He is still having issues with anxiety - Pt has Ativan 0.5mg BID PRN and Haldol 5mg IM Q6H PRN ordered Morbid obesity - Patient to follow up with PCP for further weight loss and possible referral to bariatric surgery Hyperkalemia, improved - Pt still with hyperkalemia despite multiple doses of Kayexalate - K 6.0, 5.9, 5.2 (07/27) - K 5.2, 5.2, 5.3 (/7) - calcium gluconate/ insulin with D50 given 6/ - Labs have improved - r/o hypoaldosteronism - ACTH < 5, serum cortisol 9.7, renin 18, serum aldosterone 1.0. DVT prophylaxis with Lovenox 40 mg subq twice daily (2) COPD exacerbation ICD Codes: J44.1 - Chronic obstructive pulmonary disease with (acute) exacerbation (3) Achilles rupture, right ICD Codes: S86.011A - Strain of right Achilles tendon, initial encounter (4) DM (diabetes mellitus) ICD Codes: E11.9 - Type 2 diabetes mellitus without complications Status: Chronic (5) CAD (coronary artery disease) ICD Codes: I25.10 - Atherosclerotic heart disease of [place] coronary artery without angina pectoris (6) Anxiety and depression ICD Codes: F41.9 - Anxiety disorder, unspecified; F32.9 - Major depressive disorder, single episode, unspecified (7) Morbid obesity ICD Codes: E66.01 - Morbid (severe) obesity due to excess calories (8) Hyperkalemia ICD Codes: E87.5 - Hyperkalemia (9) Hypertension ICD Codes: I10 - Essential (primary) hypertension Status: Chronic Assessment and Plan Patient examined. Assessment and plan formulated with Minda Almazan PA-C. I agree with the above. Problem Qualifiers (1) DM (diabetes mellitus): Qualified Codes: E11.8 - Type 2 diabetes mellitus with unspecified complications; Z79.4 - FCI (current) use of insulin (2) Hypertension: Qualified Codes: I10 - Essential (primary) hypertension Minda Almazan Aug 08, 2017 09:32 Frank Cordero DO Aug 10, 2017 13:18
--- NOTE | 2017-08-08 09:39 | HHI.NPPN ---
Subjective General Problems: Edema, Hypertension, Obesity History of Present Illness Patient is a 47-year-old morbidly obese male diabetes, right Achilles tendon surgery, who has anasarca and states his right leg is very painful Additional Remarks Sitting up in chair. Complaining of increased pain. BMP pending for today. (Beth Bolanos) Review of Systems Respiratory Respiratory Remarks Denies Shortness of breath (Beth Bolanos) Cardiovascular Cardiac: Edema (Beth Bolanos) Musculoskeletal MS: Pain/Stiffness (Beth Bolanos) Objective Data Data Vital Signs Date Time Temp Pulse Resp B/P (MAP) Pulse Ox O2 Delivery O2 Flow Rate FiO2 08/08/17 09:02 97 Nasal Cannula 2.00 08/08/17 08:00 97.4 77 16 119/67 (84) 97 08/08/17 04:50 97.4 76 18 147/69 (95) 93 08/08/17 04:00 76 08/08/17 00:00 84 08/08/17 00:00 97.5 80 18 130/62 (84) 95 08/07/17 20:00 93 Nasal Cannula 2.00 08/07/17 20:00 86 08/07/17 20:00 97.8 80 18 134/68 (90) 93 08/07/17 16:00 97.2 82 16 131/65 (87) 93 08/07/17 12:00 97.6 89 17 147/73 (97) 93 08/07/17 11:25 96 Nasal Cannula 2.00 (Beht Bolanos) -: 08/08/17 0747 08/07/17 1011 Microbiology 08/07/17 Throat Culture, Received Pending (Beth Bolanos) Physical Exam General Appearance: Well Developed, Obese (Beth Bolanos) Throat Throat Exam: Oral Mucosa [place] & Moist (Beth Bolanos) Neck Neck Exam: Neck Supple (Beth Bolanos) Pulmonary Resp Exam: Clear Bilaterally, Breath Sounds Equal (Beth Bolanos) Cardiology CV Exam: Regular, Normal Sinus Rhythm (Beth Bolanos) Gastrointestinal/Abdomen GI Exam: Soft, Non-Tender, Bowel Sounds Present (Beth Bolanos) Extremeties Extremities Exam: Moderate Edema (Beth Bolanos) Neurologic Neuro Exam: Alert, Awake (Beth Bolanos) Psychiatric Psych Exam: Appropriate Responses (Beth Bolanos) Assessment/Plan Problem List: (1) Hyperkalemia ICD Codes: E87.5 - Hyperkalemia Plan: Patient potassium level have improved and normal Continue low potassium diet Continue Lasix 40 mg twice daily labs pending (2) LISS (acute kidney injury) ICD Codes: N17.9 - Acute kidney failure, unspecified Status: Resolved Plan: Creatinine at 1.23 Continue supportive care. Avoid nephrotoxic agents. (3) Hyponatremia ICD Codes: E87.1 - Hypo-osmolality and hyponatremia Plan: Sodium level low 126 to 129 today Fluid restriction ordered. (4) Diabetes mellitus with hyperglycemia ICD Codes: E11.65 - Type 2 diabetes mellitus with hyperglycemia Status: Acute Plan: Blood glucose was high this is being monitored (5) Hypertension ICD Codes: I10 - Essential (primary) hypertension Status: Chronic Plan: Blood pressure has improved. Continue to monitor (6) Achilles rupture, right ICD Codes: S86.011A - Strain of right Achilles tendon, initial encounter Plan: Increased pain. (Beth Bolanos) Problem List: (1) Hyperkalemia ICD Codes: E87.5 - Hyperkalemia Plan: Patient potassium level have improved and normal Continue low potassium diet Continue Lasix 40 mg twice daily labs pending. Creatinine is slowly improving. K is normal, continue diuretics. (2) LISS (acute kidney injury) ICD Codes: N17.9 - Acute kidney failure, unspecified Status: Resolved Plan: Creatinine at 1.23 Continue supportive care. Avoid nephrotoxic agents. (3) Hyponatremia ICD Codes: E87.1 - Hypo-osmolality and hyponatremia Plan: Sodium level low 126 to 129 today Fluid restriction ordered. (4) Diabetes mellitus with hyperglycemia ICD Codes: E11.65 - Type 2 diabetes mellitus with hyperglycemia Status: Acute Plan: Blood glucose was high this is being monitored (5) Hypertension ICD Codes: I10 - Essential (primary) hypertension Status: Chronic Plan: Blood pressure has improved. Continue to monitor (6) Achilles rupture, right ICD Codes: S86.011A - Strain of right Achilles tendon, initial encounter Plan: Increased pain. (Kristi Steele MD) Problem Qualifiers (1) Hypertension: Qualified Codes: I10 - Essential (primary) hypertension Beth Bolanos Aug 08, 2017 09:39 Kristi Steele MD Aug 09, 2017 21:40
[2017-08-08 09:50] LABS: BICARBONATE 24.1 MEQ/L (21.0-32.0); CALCIUM 8.5 MG/DL (8.5-10.1); CREATININE 1.23 MG/DL (0.60-1.30)
[2017-08-08] MEDS: NYSTATIN SUSP 500,000 U/5 ML CUP SWISH-SWAL SCH ×3 (12:08→20:44)
[2017-08-08] MEDS: FUROSEMIDE 40 MG TAB PO SCH (12:09)
[2017-08-08 12:57] LABS: % SATURATION IRON PROFILE 10.7 % (20-50); IRON (FE) 26 MCG/DL (65-175); TOTAL IRON BINDING CAPACITY 244 MCG/DL (250-450)
[2017-08-08 12:59] LABS: FERRITIN 246 NG/ML (26-388)
[2017-08-08 13:11] LABS: RETIC # 45.5 MIL/L (20.0-150.0); RETIC % 1.5 % (0.4-3.0)
--- NOTE | 2017-08-08 19:44 | HHI.PR ---
Subjective Remarks 47 YO Obese male with Br Asthma, HTN,DM,CAD with achilles tendon rupture s/p repair. No events overnight. Patient is on 2L oxygen lying in bed in NAD. Uses 02 off and on Intermittent hallucination per RN Objective Vital Signs Vital Signs Date Time Temp Pulse Resp B/P (MAP) Pulse Ox O2 Delivery O2 Flow Rate FiO2 08/08/17 17:58 92 Nasal Cannula 2.00 08/08/17 16:00 97.1 78 16 125/66 (85) 91 08/08/17 12:00 97.3 97 18 151/81 (104) 97 08/08/17 09:02 97 Nasal Cannula 2.00 08/08/17 08:57 Nasal Cannula 2.00 08/08/17 08:00 97.4 77 16 119/67 (84) 97 08/08/17 04:50 97.4 76 18 147/69 (95) 93 08/08/17 04:00 76 08/08/17 00:00 84 08/08/17 00:00 97.5 80 18 130/62 (84) 95 08/07/17 20:00 93 Nasal Cannula 2.00 08/07/17 20:00 86 08/07/17 20:00 97.8 80 18 134/68 (90) 93 I/O 08/07/17 08/07/17 08/07/17 08/08/17 08/08/17 08/08/17 07:00 15:00 23:00 07:00 15:00 23:00 Intake Total 1000 ml 900 ml Output Total 850 ml 1500 ml 0 ml Balance -850 ml -500 ml 0 ml 900 ml Intake Oral 1000 ml 900 ml Output Urine Total 850 ml 1500 ml 0 ml # Voids 4 # Bowel Movements 1 1 Result Diagram: 08/08/17 0747 08/08/17 0747 Objective Remarks GENERAL: Obese WM, NAD SKIN: Warm and dry. HEAD: Normocephalic. EYES: No scleral icterus. No injection or drainage. NECK: Supple, trachea midline. No JVD or lymphadenopathy. CARDIOVASCULAR: Regular rate and rhythm without murmurs, gallops, or rubs. RESPIRATORY: Breath sounds equal bilaterally. No accessory muscle use. GASTROINTESTINAL: Abdomen soft, non-tender, nondistended. MUSCULOSKELETAL: No cyanosis, or edema. BACK: Nontender without obvious deformity. No CVA tenderness. A/P Assessment and Plan IMPRESSION: 1. Hypercapnic respiratory insufficiency, likely from his underlying sleep apnea. 2 Morbid obesity/JUDY 2. History of asthma. 3. Diabetes mellitus. 4. Hypertension. 5. Coronary artery disease, status post stent placement 6. History of pulmonary embolism. He is off anticoagulation. 7. Restrictive lung disease PLAN; Continue with oxygen keep sat 88-92 % Bronchodilators PFT showed restrictive lung disease with bronchodilators response Sleep study as out pt BIPAP prn and at night GI/DVT prophylaxis- On Lovenox 40mg Q12 Luis Armando Sawyer MD Aug 08, 2017 19:44
[2017-08-08] MEDS: ATORVASTATIN 40 MG TAB PO SCH (20:47)
[2017-08-09] VITALS (7 sets, daily range): BP systolic 125–144; BP diastolic 60–66; PULSE 77–103; RESP 18–19; TEMP 97.4–98.7; O2SAT 94–96
[2017-08-09] MEDS: ACETAMINOPHEN/HYDROcodone 325 MG/10 MG TAB PO PRN ×5 (01:21→21:28)
[2017-08-09] MEDS: CHLORHEXIDINE GLUCONATE 2 % 1 PACK (2 CLOTHS) TOP SCH (04:00)
[2017-08-09] MEDS: GABAPENTIN 300 MG CAP PO SCH ×3 (06:09→21:28)
[2017-08-09] MEDS: GLIMEPIRIDE 2 MG TAB PO SCH ×2 (06:09→16:50)
[2017-08-09 07:26] LABS: AUTOMATED NEUTROPHIL # 5.5 TH/MM3 (1.8-7.7); BASOPHIL # 0.1 TH/MM3 (0-0.2); BASOPHIL % 0.9 % (0.0-2.0); EOSINOPHIL # 0.1 TH/MM3 (0-0.4); EOSINOPHIL % 1.9 % (0.0-4.0); HEMOGLOBIN 7.9 GM/DL (13.0-17.0); MEAN CELL VOLUME 80.1 FL (80.0-100.0); MEAN CORPUSCULAR HEMOGLOBIN 26.5 PG (27.0-34.0); MEAN PLATELET VOLUME 6.9 FL (7.0-11.0); MONO % 13.1 % (0.0-8.0); NEUT % 71.1 % (16.0-70.0); PLATELET COUNT 259 TH/MM3 (150-450); RED CELL DISTRIBUTION WIDTH 14.7 % (11.6-17.2); WHITE BLOOD COUNT 7.7 TH/MM3 (4.0-11.0)
[2017-08-09 07:43] LABS: BICARBONATE 25.5 MEQ/L (21.0-32.0); CALCIUM 8.3 MG/DL (8.5-10.1); CREATININE 1.04 MG/DL (0.60-1.30); MAGNESIUM 1.8 MG/DL (1.5-2.5)
[2017-08-09] MEDS: LOSARTAN 50 MG TAB PO SCH ×2 (07:55→21:24)
[2017-08-09] MEDS: ALLOPURINOL 100 MG TAB PO SCH (07:55)
[2017-08-09] MEDS: NYSTATIN SUSP 500,000 U/5 ML CUP SWISH-SWAL SCH ×4 (07:55→21:29)
[2017-08-09] MEDS: ENOXAPARIN SODIUM 40 MG/0.4 ML SYRINGE SQ SCH ×2 (07:55→21:32)
[2017-08-09] MEDS: DOCUSATE SODIUM 50 MG/SENNA 8.6 MG TAB PO SCH ×2 (07:56→21:28)
[2017-08-09] MEDS: CLOPIDOGREL 75 MG TAB PO SCH (07:56)
[2017-08-09] MEDS: ASPIRIN EC 81 MG TABEC PO SCH (07:56)
[2017-08-09] MEDS: NIFEdipine 60 MG SUSTAINED RELEASE TAB PO SCH ×2 (07:56→21:24)
[2017-08-09] MEDS: FUROSEMIDE 40 MG TAB PO SCH (07:56)
[2017-08-09] MEDS: CARVEDILOL 12.5 MG TAB PO SCH ×2 (07:57→21:24)
[2017-08-09] MEDS: hydrALAZINE HCL 50 MG TAB PO SCH ×3 (07:57→16:50)
[2017-08-09] MEDS: PARoxetine HCL 20 MG TAB PO SCH (07:57)
[2017-08-09] MEDS: FAMOTIDINE 20 MG TAB PO SCH ×2 (07:57→21:28)
[2017-08-09] MEDS: metFORMIN HCL 500 MG TAB PO SCH ×2 (07:57→21:28)
[2017-08-09] MEDS: INSULIN ASPART SUPPLEMENTAL SCALE SQ SCH ×4 (08:00→21:36)
[2017-08-09] MEDS: FLUTICASONE PROPIONATE 50 MCG/ACT 16 GM NASAL SPRAY EACH NARE SCH (08:01)
[2017-08-09] MEDS ORDERED: WHEEMIS3 (14:49)
--- NOTE | 2017-08-09 14:55 | HHI.NPPN ---
Subjective General Problems: Edema, Hypertension, Obesity History of Present Illness Patient is a 47-year-old morbidly obese male diabetes, right Achilles tendon surgery, who has anasarca and states his right leg is very painful Additional Remarks Seen in AM. Pain is better controlled today. No shortness of breath. (Beth Bolanos) Review of Systems Respiratory Respiratory Remarks Denies Shortness of breath (Beth Bolanos) Cardiovascular Cardiac: Edema (Beth Bolanos) Musculoskeletal MS: Pain/Stiffness (Beth Bolanos) Objective Data Data Vital Signs Date Time Temp Pulse Resp B/P (MAP) Pulse Ox O2 Delivery O2 Flow Rate FiO2 08/09/17 12:00 98.1 88 19 144/64 (90) 95 08/09/17 11:03 95 Nasal Cannula 1.00 08/09/17 08:00 97.8 103 18 137/66 (89) 95 08/09/17 08:00 Nasal Cannula 1.00 08/09/17 00:00 98.0 85 19 125/60 (81) 94 08/08/17 21:00 Nasal Cannula 2.00 08/08/17 20:00 98.1 87 19 144/67 (92) 93 08/08/17 17:58 92 Nasal Cannula 2.00 08/08/17 16:00 97.1 78 16 125/66 (85) 91 (Beth Bolanos) -: 08/09/17 0650 08/09/17 0650 Physical Exam General Appearance: Well Developed, Obese (Beth Bolanos) Throat Throat Exam: Oral Mucosa Electra & Moist (Beth Bolanos) Neck Neck Exam: Neck Supple (Beth Bolanos) Pulmonary Resp Exam: Clear Bilaterally, Breath Sounds Equal (Beth Bolanos) Cardiology CV Exam: Regular, Normal Sinus Rhythm (Beth Bolanos) Gastrointestinal/Abdomen GI Exam: Soft, Non-Tender, Bowel Sounds Present (Beth Bolanos) Extremeties Extremities Exam: Moderate Edema (Beth Bolanos) Neurologic Neuro Exam: Alert, Awake (Beth Bolanos) Psychiatric Psych Exam: Appropriate Responses (Beth Bolanos) Assessment/Plan Problem List: (1) Hyperkalemia ICD Codes: E87.5 - Hyperkalemia Plan: Patient potassium level have improved and normal at 4.6 Continue low potassium diet Continue Lasix 40 mg daily (2) LISS (acute kidney injury) ICD Codes: N17.9 - Acute kidney failure, unspecified Status: Resolved Plan: Creatinine at 1.23 Continue supportive care. Avoid nephrotoxic agents. (3) Hyponatremia ICD Codes: E87.1 - Hypo-osmolality and hyponatremia Plan: Sodium level improving at 131 Fluid restriction ordered. (4) Diabetes mellitus with hyperglycemia ICD Codes: E11.65 - Type 2 diabetes mellitus with hyperglycemia Status: Acute Plan: Blood glucose was high this is being monitored (5) Hypertension ICD Codes: I10 - Essential (primary) hypertension Status: Chronic Plan: Blood pressure has improved. Continue to monitor (6) Achilles rupture, right ICD Codes: S86.011A - Strain of right Achilles tendon, initial encounter Plan: Increased pain. Plan Will seen PRN (Beth Bolanos) Problem List: (1) Hyperkalemia ICD Codes: E87.5 - Hyperkalemia Plan: Patient potassium level have improved and normal at 4.6 Continue low potassium diet Continue Lasix 40 mg daily. Patient seen and examined, agree with above. Will sign off from Nephrology and see PRN as needed. (2) LISS (acute kidney injury) ICD Codes: N17.9 - Acute kidney failure, unspecified Status: Resolved Plan: Creatinine at 1.23 Continue supportive care. Avoid nephrotoxic agents. (3) Hyponatremia ICD Codes: E87.1 - Hypo-osmolality and hyponatremia Plan: Sodium level improving at 131 Fluid restriction ordered. (4) Diabetes mellitus with hyperglycemia ICD Codes: E11.65 - Type 2 diabetes mellitus with hyperglycemia Status: Acute Plan: Blood glucose was high this is being monitored (5) Hypertension ICD Codes: I10 - Essential (primary) hypertension Status: Chronic Plan: Blood pressure has improved. Continue to monitor (6) Achilles rupture, right ICD Codes: S86.011A - Strain of right Achilles tendon, initial encounter Plan: Increased pain. (Kristi Steele MD) Problem Qualifiers (1) Hypertension: Qualified Codes: I10 - Essential (primary) hypertension Beth Bolanos Aug 09, 2017 14:55 Kristi Steele MD Aug 09, 2017 22:22
--- NOTE | 2017-08-09 18:09 | HHI.PR ---
Subjective Remarks No new complaints. Objective Vitals Vital Signs Date Time Temp Pulse Resp B/P (MAP) Pulse Ox O2 Delivery O2 Flow Rate FiO2 08/09/17 16:00 97.4 77 18 144/65 (91) 95 08/09/17 12:00 98.1 88 19 144/64 (90) 95 08/09/17 11:03 95 Nasal Cannula 1.00 08/09/17 08:00 97.8 103 18 137/66 (89) 95 08/09/17 08:00 Nasal Cannula 1.00 08/09/17 00:00 98.0 85 19 125/60 (81) 94 08/08/17 21:00 Nasal Cannula 2.00 08/08/17 20:00 98.1 87 19 144/67 (92) 93 Result Diagram: 08/09/17 0650 08/09/17 0650 Imaging Last Impressions Head CT 08/04/17 0000 Signed Impressions: CONCLUSION: No acute intracranial findings. Ankle X-Ray 07/24/17 1256 Signed Impressions: CONCLUSION: 1. An apparent focal cortical break of the calcaneus just posterior to the sub talar joint. This appears new. 2. Splint present. 3. Multifocal ankle and hindfoot osteoarthritis. 4. Accessory navicular and large os peroneum. Chest X-Ray 07/23/17 0600 Signed Impressions: CONCLUSION: Cardiomegaly. Ankle MRI 07/21/17 0000 Signed Impressions: CONCLUSION: 1. Severe tendinopathy of the distal Achilles tendon with full-thickness tear. Tiny intact strand of tendon present medially. There is also partial avulsion of the Achilles tendon at the insertion site on the calcaneus. 2. Severe marrow edema posterior calcaneus especially the lateral aspect, prob ably a small impaction fracture. 3. Mild contusion posterior talus. 4. Small ankle joint effusion. Extensive subcutaneous edema. Lung Scan-V Nuclear Medicine 07/19/17 1528 Signed Impressions: CONCLUSION: 1. Low probability for pulmonary embolism. Compensated cardiomegaly. If high c linical suspicion CT angiogram would be of benefit. Objective Remarks GENERAL: This is a Morbidly obese 47 year old male patient, in no apparent distress. ENT: Erythema in the posterior pharynx and blistering on the uvula CARDIO: Regular rate and rhythm RESP: clear bilaterally ABD: Abdomen soft, non-tender, nondistended. Normal active bowel sounds EXT: Right lower extremity is wrapped in Ronnell bandage with a heel splint in place. 1-2+ pitting edema on the left, 1-2+ on the RLE and increased pain on the RLE with palpation. Procedures Open repair of right Achilles tendon rupture with flexor hallucis longus tendon transfer and gastrocnemius recession, right lower extremity on 07/24/[address] Murillo. A/P Problem List: (1) Hypercapnic respiratory failure ICD Codes: J96.92 - Respiratory failure, unspecified with hypercapnia Plan: Hypercapnic respiratory insufficiency Obesity hypoventilation syndrome COPD exacerbation - Pt is a 47 y/o male with morbid obesity and asthma/COPD who presents to the ED at [facility] on 07/19/17 with new onset worsening shortness of breath and presyncopal type symptoms for the last 1 week. - In the emergency department he was found to be quite hypoxic and hypercarbic with a primary respiratory acidosis and was placed on BiPAP and was admitted to ICU under the care of the Intensivists - Likely from his underlying sleep apnea - Patient was not on BiPAP at home prior to admission - comgmt with Pulm Med, Cardiology - BiPAP at night - Solu-Medrol changed to PO prednisone taper on 07/30, pt currently on Prednisone 10mg po daily - duonebs prn - Head of bed elevated 30 - VQ scan (07/21) --> low probability - 2-D echocardiogram 07/23/17: - The left ventricular systolic function is mildly reduced with an estimated ejection fraction in the range of 45- 50%. - Mild infero-posterior hypokinesis - Mild concentric left ventricular hypertrophy. - The left atrial size is moderately dilated. - Case d/w Cardiology, Dr. Hirsch, (07/27). - RHC completed (07/28) --> Class 2 Pulm HTN, PCW 23 - No Right heart strain, so sildenafil was stopped - Pt was on Lasix 80mg IV BID for volume overload, the Lasix was decreased to 40mg IV BID on 08/03 - Patient voided 6500 ml 07/30, 9350 ml on 10/31, 7400 ml on 07/22, 4000 ml on , 3500 ml on 08/03, pt has continued to void around 3000mL the last 2 days. - Lasix held on 08/07 due to rising creatinine - Creatinine 1.54 on 08/07, 1.04 (08/09) - Pt requiring supplemental O2 - Pt is going to need sleep study evaluation following discharge Achilles rupture, right - At admission pt reported approximately 3 days prior to admission he had sudden onset right ankle pain and swelling and went to be evaluated by cook room supervisor and was diagnosed with a possible Achilles tendon rupture. - Pt underwent open repair of right Achilles tendon rupture with flexor hallucis longus tendon transfer and gastrocnemius recession, right lower extremity on 07/24/[address] Murillo. - Per podiatry: Recommend rehab if patient unable to maintain non weight bearing status - Pt had dressing change 07/31. Pt healing well. - Per podiatry, pt will need to be strict non-weight bearing for 6-8 weeks. - Pt was noted to have increased swelling and pain in the RLE on 08/04 - LE Doppler US (08/04) --> Is negative for DVT - Morphine 4mg Q4H PRN for breakthrough was added on 08/04, this was stopped on in preparation for discharge - Cinebar increased to 10/325mg q4h prn on 08/05 - Pt is trying to minimize narcotic use - Cont. gabapentin 300mg tid and tizanidine 2mg po q12h - Podiatry was reconsulted to re-evaluate as pt has not been compliant with the NWB status - Appreciate podiatry re-evaluating the wound on 08/05. They noted the "RLE posterior incision line is well coapted with all sutures intact, mild ecchymosis. No drainage. No erythema. Mild/mod edema to proximal calf." - Recommended continued NWB status to the RLE - A new splint ordered and RLE wrapped to the knee. - Cont to ice and elevate - Pt will need to f/u with at d/c - Pt will need SNF upon discharge but pt and want HHC/PT. Sore throat/sinus congestion - Likely viral, uvula with white blistered appearance - Throat cx is pending. - Chloraseptic spray and lozenges PRN. - Saline nasal spray and Flonase. - Start nystatin S/S DM (diabetes mellitus) - Pts BS this morning was in the 80s - Cont. Metformin - Amaryl 4mg BID and Levemir stopped on 08/04 as BS were running low but then BS began running high again - Amaryl 2mg BID added back on 08/05 - Cont. on NovoLog SSI - BS better controlled CAD (coronary artery disease) Recent history of pulmonary embolism - Patient had a PE approximately 8 months ago and was on Coumadin for until the cardiac cauterization 06/17/17 - Patient with recent cardiac catheterization with PCI 06/17/17 - After catheterization patient's Coumadin was DC'd and he was started on Aspirin and Plavix - Continue patient's Aspirin 81 mg daily, Plavix 75 mg PO daily, Atorvastatin 40 mg PO QHS and Coreg BID Hypertension - Pt is currently on Losartan 50 mg Q12H, Hydralazine 100mg TID, Procardia xl 60mg BID, Coreg 37.5mg BID, and Isosorbide 10mg q8h - Pts BP in the mornings after morning meds had been dropping with systolic into the 90s - Stop the Isosorbide on 08/04 and decrease Hydralazine to 50mg TID and monitor - BP has been better controlled. - labetalol and Clonidine prn - pain, narcotic dependency, and anxiety may be contributing - would prefer to minimize narcotics/benzodiazepines d/t JUDY and respiratory suppression Anemia - Pts H/H has slowly been declining. No noted active GIB - iron deficiency anemia - Hg 7.9 (08/09/17), 7.6 (08/10) - transfuse 2 units PRBCs (08/10) - Case d/w Dr. Mccormick (08/10) - will proceed with EGD/Colonoscopy 08/11 - Hopefully will be able to d/c to home with [facility] in 1-3 days - observe Hg level Anxiety and depression Auditory and visual hallucinations - Psychiatry was reconsulted on 08/03 - ABG was checked and was stable - Head CT was negative. - Repeat labs on 08/03 noted a slight increase in creatinine but otherwise were stable - Pt is more lucid today - EEG (08/04) --> Mild encephalopathy - Continue home alprazolam 0.5 mg BID as needed - Continue home paroxetine 20 mg p.o. daily for depression - Seroquel increased to 100mg po BID on 08/04 by psychiatry but pts is refusing this medication for him due to possible side effects - Seroquel stopped on 08/05 and pt appears to be doing much better from a mental status standpoint. - He is still having issues with anxiety - Pt has Ativan 0.5mg BID PRN and Haldol 5mg IM Q6H PRN ordered Morbid obesity - Patient to follow up with PCP for further weight loss and possible referral to bariatric surgery Hyperkalemia, improved - Pt still with hyperkalemia despite multiple doses of Kayexalate - K 6.0, 5.9, 5.2 (07/27) - K 5.2, 5.2, 5.3 (07/28) - calcium gluconate/ insulin with D50 given 07/28 - Labs have improved - r/o hypoaldosteronism - ACTH < 5, serum cortisol 9.7, renin 18, serum aldosterone 1.0. DVT prophylaxis with Lovenox 40 mg subq twice daily (2) COPD exacerbation ICD Codes: J44.1 - Chronic obstructive pulmonary disease with (acute) exacerbation (3) Achilles rupture, right ICD Codes: S86.011A - Strain of right Achilles tendon, initial encounter (4) DM (diabetes mellitus) ICD Codes: E11.9 - Type 2 diabetes mellitus without complications Status: Chronic (5) CAD (coronary artery disease) ICD Codes: I25.10 - Atherosclerotic heart disease of [place] coronary artery without angina pectoris (6) Anxiety and depression ICD Codes: F41.9 - Anxiety disorder, unspecified; F32.9 - Major depressive disorder, single episode, unspecified (7) Morbid obesity ICD Codes: E66.01 - Morbid (severe) obesity due to excess calories (8) Hyperkalemia ICD Codes: E87.5 - Hyperkalemia (9) Hypertension ICD Codes: I10 - Essential (primary) hypertension Status: Chronic Assessment and Plan Problem Qualifiers (1) DM (diabetes mellitus): Qualified Codes: E11.8 - Type 2 diabetes mellitus with unspecified complications; Z79.4 - prison (current) use of insulin (2) Hypertension: Qualified Codes: I10 - Essential (primary) hypertension Frank Cordero DO Aug 09, 2017 18:09
--- NOTE | 2017-08-09 19:38 | HHI.PR ---
Subjective Remarks 47 YO Obese male with Br Asthma, HTN,DM,CAD with achilles tendon rupture s/p repair. No events overnight. Intermittent hallucination per RN at BS Weaned to RA Does't want to use BIPAP Objective Vital Signs Vital Signs Date Time Temp Pulse Resp B/P (MAP) Pulse Ox O2 Delivery O2 Flow Rate FiO2 08/09/17 16:00 97.4 77 18 144/65 (91) 95 08/09/17 12:00 98.1 88 19 144/64 (90) 95 08/09/17 11:03 95 Nasal Cannula 1.00 08/09/17 08:00 97.8 103 18 137/66 (89) 95 08/09/17 08:00 Nasal Cannula 1.00 08/09/17 00:00 98.0 85 19 125/60 (81) 94 08/08/17 21:00 Nasal Cannula 2.00 08/08/17 20:00 98.1 87 19 144/67 (92) 93 I/O 08/08/17 08/08/17 08/08/17 08/09/17 08/09/17 08/09/17 07:00 15:00 23:00 07:00 15:00 23:00 Intake Total 900 ml 480 ml 740 ml Output Total 0 ml 1200 ml Balance 0 ml 900 ml -720 ml 740 ml Intake Oral 900 ml 480 ml 740 ml Output Urine Total 0 ml 1200 ml # Voids 4 6 # Bowel Movements 1 0 1 Result Diagram: 08/09/17 0650 08/09/17 0650 Objective Remarks GENERAL: Obese WM, NAD SKIN: Warm and dry. HEAD: Normocephalic. EYES: No scleral icterus. No injection or drainage. NECK: Supple, trachea midline. No JVD or lymphadenopathy. CARDIOVASCULAR: Regular rate and rhythm without murmurs, gallops, or rubs. RESPIRATORY: Breath sounds equal bilaterally. No accessory muscle use. GASTROINTESTINAL: Abdomen soft, non-tender, nondistended. MUSCULOSKELETAL: No cyanosis, or edema. BACK: Nontender without obvious deformity. No CVA tenderness. A/P Assessment and Plan IMPRESSION: 1. Hypercapnic respiratory insufficiency, likely from his underlying sleep apnea. 2 Morbid obesity/JUDY 2. History of asthma. 3. Diabetes mellitus. 4. Hypertension. 5. Coronary artery disease, status post stent placement 6. History of pulmonary embolism. He is off anticoagulation. 7. Restrictive lung disease PLAN; Continue with oxygen keep sat 88-92 % Bronchodilators PFT showed restrictive lung disease with bronchodilators response Sleep study as out pt BIPAP prn and at night if pt agrees GI/DVT prophylaxis- On Lovenox 40mg Q12 DW pt and his at BS Luis Armando Sawyer MD Aug 09, 2017 19:38
--- NOTE | 2017-08-09 20:15 | RADRPT ---
EXAM DATE: 08/09/2017 7:48 PM EDT AGE/SEX: 47 years / Male INDICATIONS: Right knee pain, no trauma. CLINICAL DATA: This is the patient's subsequent encounter. Patient reports that signs and symptoms h ave been present for 1 week and indicates a pain score of 5/10. MEDICAL/SURGICAL HISTORY: Osteoporosis. MRSA. . Right Achilles repair. COMPARISON: No prior exams available for comparison. FINDINGS: Bony structures are intact and in normal alignment. Joints are intact without dislocation or signifi cant arthropathy. Osseous density is normal. Probable small suprapatellar joint effusion. No radiopa que foreign bodies seen. CONCLUSION: 1. Small suprapatellar joint effusion. 2. Otherwise, unremarkable radiographs of the right knee. Electronically signed by: Polo Busch MD 08/09/2017 8:14 PM EDT
[2017-08-09] MEDS: ATORVASTATIN 40 MG TAB PO SCH (21:24)
[2017-08-10] VITALS (9 sets, daily range): BP systolic 125–146; BP diastolic 61–80; PULSE 81–92; RESP 17–20; TEMP 97.6–98.6; O2SAT 91–97
[2017-08-10] MEDS: ACETAMINOPHEN/HYDROcodone 325 MG/10 MG TAB PO PRN ×5 (01:45→21:11)
[2017-08-10] MEDS: CHLORHEXIDINE GLUCONATE 2 % 1 PACK (2 CLOTHS) TOP SCH (04:00)
[2017-08-10] MEDS: GLIMEPIRIDE 2 MG TAB PO SCH ×2 (05:39→15:59)
[2017-08-10] MEDS: GABAPENTIN 300 MG CAP PO SCH ×3 (05:39→21:09)
[2017-08-10] MEDS: ALLOPURINOL 100 MG TAB PO SCH (08:27)
[2017-08-10] MEDS: FAMOTIDINE 20 MG TAB PO SCH ×2 (08:27→21:10)
[2017-08-10] MEDS: hydrALAZINE HCL 50 MG TAB PO SCH ×3 (08:27→16:43)
[2017-08-10] MEDS: CARVEDILOL 12.5 MG TAB PO SCH ×2 (08:27→21:10)
[2017-08-10] MEDS: PARoxetine HCL 20 MG TAB PO SCH (08:27)
[2017-08-10] MEDS: NIFEdipine 60 MG SUSTAINED RELEASE TAB PO SCH ×2 (08:27→21:09)
[2017-08-10] MEDS: CLOPIDOGREL 75 MG TAB PO SCH (08:27)
[2017-08-10] MEDS: DOCUSATE SODIUM 50 MG/SENNA 8.6 MG TAB PO SCH ×2 (08:27→21:09)
[2017-08-10] MEDS: ASPIRIN EC 81 MG TABEC PO SCH (08:29)
[2017-08-10] MEDS: LOSARTAN 50 MG TAB PO SCH ×2 (08:30→21:10)
[2017-08-10] MEDS: metFORMIN HCL 500 MG TAB PO SCH ×2 (08:30→21:11)
[2017-08-10] MEDS: FLUTICASONE PROPIONATE 50 MCG/ACT 16 GM NASAL SPRAY EACH NARE SCH (08:35)
[2017-08-10] MEDS: ENOXAPARIN SODIUM 40 MG/0.4 ML SYRINGE SQ SCH ×2 (08:35→21:15)
[2017-08-10] MEDS: INSULIN ASPART SUPPLEMENTAL SCALE SQ SCH ×4 (08:35→21:00)
[2017-08-10] MEDS: NYSTATIN SUSP 500,000 U/5 ML CUP SWISH-SWAL SCH ×4 (08:36→21:15)
[2017-08-10] MEDS: FUROSEMIDE 40 MG TAB PO SCH (08:36)
[2017-08-10 12:10] LABS: AUTOMATED NEUTROPHIL # 5.2 TH/MM3 (1.8-7.7); BASOPHIL % 0.7 % (0.0-2.0); EOSINOPHIL # 0.1 TH/MM3 (0-0.4); EOSINOPHIL % 1.9 % (0.0-4.0); HEMATOCRIT 23.6 % (39.0-51.0); HEMOGLOBIN 7.6 GM/DL (13.0-17.0); LYMPH % 13.5 % (9.0-44.0); MEAN CELL VOLUME 80.4 FL (80.0-100.0); MEAN CORPUSCULAR HGB CONC 32.3 % (32.0-36.0); MEAN PLATELET VOLUME 6.7 FL (7.0-11.0); MONO % 12.9 % (0.0-8.0); MONOCYTE # 0.9 TH/MM3 (0-0.9); PLATELET COUNT 258 TH/MM3 (150-450); RED BLOOD COUNT 2.93 MIL/MM3 (4.50-5.90); RED CELL DISTRIBUTION WIDTH 14.9 % (11.6-17.2); WHITE BLOOD COUNT 7.3 TH/MM3 (4.0-11.0)
[2017-08-10 12:27] LABS: BICARBONATE 27.7 MEQ/L (21.0-32.0); CALCIUM 8.3 MG/DL (8.5-10.1); CREATININE 1.15 MG/DL (0.60-1.30)
--- NOTE | 2017-08-10 13:26 | PD.CONS ---
HPI History of Present Illness This is a 47 year old M with PMH COPD/asthma, HTN, CAD, recent history of PE and morbid obesity who presented to the hospital 22 days ago with complaints of shortness of breath and presyncope for a week prior to arrival. Pt was on BiPAP but has since been weaned to room air. Our service has been consulted to evaluate pt for iron deficiency anemia. Pt denies known history of anemia, has never had blood transfusion, does not take iron or B12 supplements. Of note, pt was on Coumadin prior to arrival for recent history of PE, this was transitioned to Plavix and ASA after cardiac cath on 07/28. Pt denies acid reflux , heartburn, nausea, vomiting, abdominal pain. Reports diarrhea prior to arrival but states this has resolved since being on pain medication during admission. Diarrhea at home was related to unhealthy food choices. States noticed more diarrhea when he ate a lot of sugar. Associated fecal urgency and occasional fecal incontinence. Denies hematochezia and melena. Last EGD and colonoscopy done in [address] [facility] by [address]. Tate --> Normal esophagus and GE junction. Large amount of retained gastric contents obscuring fundus and body. Normal duodenum. Mild diverticulosis in the sigmoid colon, external hemorrhoids. Poor prep with scattered areas of retained stool. Denies family history of UC, Crohns, and colon cancer. PFSH Past Medical History DM CAD HTN Recent history of PE Morbid obesity Achilles tendon rupture COPD/Asthma Coded Allergies: codeine (Verified Allergy, Severe, Itching, 07/19/17) tramadol (Verified Allergy, Unknown, 07/19/17) clonidine (Unverified Adverse Reaction, Severe, ARNDT, dry mouth, "felt drunk ", 07/19/17) lisinopril (Verified Adverse Reaction, Unknown, abnormal labs K level, ) Review of Systems Gastrointestinal: DENIES: Abdominal pain, Black stools, Bloody stools, Constipation, Diarrhea, Nausea, Vomiting, Difficulty Swallowing, Odynophagia, Swelling of Abdomen, Heartburn, Hematemesis GI Exam Vitals I&O Vital Signs Date Time Temp Pulse Resp B/P (MAP) Pulse Ox O2 Delivery O2 Flow Rate FiO2 08/10/17 10:33 92 Nasal Cannula 1.00 08/10/17 08:00 97.7 81 19 126/61 (82) 92 08/10/17 00:00 98.6 82 19 125/67 (86) 97 08/09/17 20:24 95 Nasal Cannula 1.00 08/09/17 20:00 98.7 84 19 126/64 (84) 96 08/09/17 16:00 97.4 77 18 144/65 (91) 95 I/O 08/09/17 08/09/17 08/09/17 08/10/17 08/10/17 08/10/17 06:59 14:59 22:59 06:59 14:59 22:59 Intake Total 480 ml 740 ml 650 ml Output Total 1200 ml Balance -720 ml 740 ml 650 ml Intake Oral 480 ml 740 ml 650 ml Output Urine Total 1200 ml # Voids 6 3 # Bowel Movements 0 1 0 Imaging Last Impressions Knee X-Ray 08/09/17 0000 Signed Impressions: CONCLUSION: 1. Small suprapatellar joint effusion. 2. Otherwise, unremarkable radiographs of the right knee. Lower Extremity Ultrasound 08/04/17 0000 Signed Impressions: CONCLUSION: 1. The study is negative for right lower extremity deep venous thrombosis. Head CT 08/04/17 0000 Signed Impressions: CONCLUSION: No acute intracranial findings. Ankle X-Ray 07/24/17 1256 Signed Impressions: CONCLUSION: 1. An apparent focal cortical break of the calcaneus just posterior to the sub talar joint. This appears new. 2. Splint present. 3. Multifocal ankle and hindfoot osteoarthritis. 4. Accessory navicular and large os peroneum. Chest X-Ray 07/23/17 0600 Signed Impressions: CONCLUSION: Cardiomegaly. Ankle MRI 07/21/17 0000 Signed Impressions: CONCLUSION: 1. Severe tendinopathy of the distal Achilles tendon with full-thickness tear. Tiny intact strand of tendon present medially. There is also partial avulsion of the Achilles tendon at the insertion site on the calcaneus. 2. Severe marrow edema posterior calcaneus especially the lateral aspect, prob ably a small impaction fracture. 3. Mild contusion posterior talus. 4. Small ankle joint effusion. Extensive subcutaneous edema. Lung Scan-V Nuclear Medicine 07/19/17 1528 Signed Impressions: CONCLUSION: 1. Low probability for pulmonary embolism. Compensated cardiomegaly. If high c linical suspicion CT angiogram would be of benefit. Laboratory Test 08/10/17 11:47 White Blood Count 7.3 TH/MM3 Red Blood Count 2.93 MIL/MM3 Hemoglobin 7.6 GM/DL Hematocrit 23.6 % Mean Corpuscular Volume 80.4 FL Mean Corpuscular Hemoglobin 26.0 PG Mean Corpuscular Hemoglobin Concent 32.3 % Red Cell Distribution Width 14.9 % Platelet Count 258 TH/MM3 Mean Platelet Volume 6.7 FL Neutrophils (%) (Auto) 71.0 % Lymphocytes (%) (Auto) 13.5 % Monocytes (%) (Auto) 12.9 % Eosinophils (%) (Auto) 1.9 % Basophils (%) (Auto) 0.7 % Neutrophils # (Auto) 5.2 TH/MM3 Lymphocytes # (Auto) 1.0 TH/MM3 Monocytes # (Auto) 0.9 TH/MM3 Eosinophils # (Auto) 0.1 TH/MM3 Basophils # (Auto) 0.0 TH/MM3 CBC Comment DIFF FINAL Differential Comment Blood Urea Nitrogen 31 MG/DL Creatinine 1.15 MG/DL Random Glucose 103 MG/DL Calcium Level 8.3 MG/DL Sodium Level 136 MEQ/L Potassium Level 4.4 MEQ/L Chloride Level 99 MEQ/L Carbon Dioxide Level 27.7 MEQ/L Anion Gap 9 MEQ/L Estimat Glomerular Filtration Rate 68 ML/MIN Date/Time Source Procedure Growth Status 07/21/17 03:42 Blood Peripheral Aerobic Blood Culture - Final NO GROWTH IN 5 DAYS Complete 07/21/17 03:42 Blood Peripheral Anaerobic Blood Culture - Final NO GROWTH IN 5 DAYS Complete 08/07/17 16:57 Throat Throat Culture - Final Complete 07/20/17 10:00 Urine Catheterized Urine Legionella Antigen - Final PRESUMPTIVE NEGATIVE FOR LEGIONELLA P... Complete 07/20/17 10:00 Urine Catheterized Urine Streptococcus pneumoniae Antigen (M - Final PRESUMPTIVE NEGATIVE FOR STREPTOCOCCU... Complete Physical Examination HEENT: Normocephalic; atraumatic CHEST: Even/unlabored CARDIAC: RRR ABDOMEN: Morbidly obese, soft, nontender, bowel sounds active SKIN: Normal; no rash; no jaundice. REIMBURSEMENT COUNSELOR: Alert and oriented times three. Assessment and Plan Plan Assessment: - Anemia, microcytic, hypochromic- labs consistent with iron deficiency Pt denies any history of anemia, previous blood transfusions, taking iron or B12 supplements at home. Hgb has been trending down since admission, was 10.5 on 07/19 and is currently 7.6 Denies history of GIB Pt was on Coumadin on arrival for recent history of PE, VQ shows low probability of PE- he was switched to ASA and Plavix after cardiac cath on 07/28 Denies acid reflux, heartburn, nausea, vomiting, abdominal pain. Complaints of diarrhea prior to arrival, now better with pain medication- (+) fecal urgency with occasional fecal incontinence at home. States diarrhea worse with sugary meals. Last EGD and colonoscopy [place] [address] Tate --> Normal esophagus and GE junction. Large amount of retained gastric contents obscuring fundus and body. Normal duodenum. Mild diverticulosis in the sigmoid colon, external hemorrhoids. Poor prep with scattered areas of retained stool. Denies family history of UC, Crohns, and colon cancer. - Respiratory insufficiency- BiPAP on admission- now weaned on to room air Plan: EGD and colonoscopy tomorrow Obtain consent Clear liquids today Golytely prep NPO after MN Monitor H/H Lovenox stopped ASA and Plavix OK Iron replacement per attending Further recommendations based on findings of above Pt has been seen and examined by myself and Dr. Mccormick and this note is written on her behalf Evy Bragg Aug 10, 2017 13:26
[2017-08-10] MEDS ORDERED: SODIUM CHLOR 0.9% 250 ML INJ 250 ML IV ONE (13:30)
[2017-08-10] MEDS ORDERED: PEG (High)/E-LYTE SOLN 4000 ML BTL PO ONE ×2 (13:30→16:00)
[2017-08-10] MEDS ORDERED: FUROSEMIDE 20 MG/2 ML VIAL IV PUSH ONE (13:30)
--- NOTE | 2017-08-10 20:58 | HHI.PR ---
Subjective Remarks 47 YO Obese male with Br Asthma, HTN,DM,CAD with achilles tendon rupture s/p repair. Doing well Up in chair Receiving PRBC Objective Vital Signs Vital Signs Date Time Temp Pulse Resp B/P (MAP) Pulse Ox O2 Delivery O2 Flow Rate FiO2 08/10/17 20:00 97.9 89 20 142/80 (100) 96 08/10/17 18:47 98.1 91 17 136/78 92 08/10/17 16:04 97.8 92 17 142/69 93 08/10/17 16:00 97.6 90 17 146/66 (92) 95 08/10/17 15:53 97.9 90 18 142/67 91 08/10/17 10:33 92 Nasal Cannula 1.00 08/10/17 08:00 97.7 81 19 126/61 (82) 92 08/10/17 00:00 98.6 82 19 125/67 (86) 97 I/O 08/09/17 08/09/17 08/09/17 08/10/17 08/10/17 08/10/17 07:00 15:00 23:00 07:00 15:00 23:00 Intake Total 480 ml 740 ml 650 ml 1846 ml Output Total 1200 ml Balance -720 ml 740 ml 650 ml 1846 ml Intake Oral 480 ml 740 ml 650 ml 1440 ml Packed Cells 400 ml Blood Product IV Normal Saline Flush 6 ml Output Urine Total 1200 ml # Voids 6 3 4 # Bowel Movements 0 1 0 2 Result Diagram: 08/10/17 1147 08/10/17 1147 Objective Remarks GENERAL: Obese WM, NAD SKIN: Warm and dry. HEAD: Normocephalic. EYES: No scleral icterus. No injection or drainage. NECK: Supple, trachea midline. No JVD or lymphadenopathy. CARDIOVASCULAR: Regular rate and rhythm without murmurs, gallops, or rubs. RESPIRATORY: Breath sounds equal bilaterally. No accessory muscle use. GASTROINTESTINAL: Abdomen soft, non-tender, nondistended. MUSCULOSKELETAL: No cyanosis, or edema. BACK: Nontender without obvious deformity. No CVA tenderness. A/P Assessment and Plan IMPRESSION: 1. Hypercapnic respiratory insufficiency, likely from his underlying sleep apnea. 2 Morbid obesity/JUDY 2. History of asthma. 3. Diabetes mellitus. 4. Hypertension. 5. Coronary artery disease, status post stent placement 6. History of pulmonary embolism. He is off anticoagulation. 7. Restrictive lung disease PLAN; Continue with oxygen keep sat 88-92 % Bronchodilators PFT showed restrictive lung disease with bronchodilators response Sleep study as out pt BIPAP prn and at night if pt agrees GI/DVT prophylaxis- On Lovenox 40mg Q12 PRBC 2 units Luis Armando Sawyer MD Aug 10, 2017 20:58
[2017-08-10] MEDS: ATORVASTATIN 40 MG TAB PO SCH (21:10)
[2017-08-11] VITALS: BP 131/65; PULSE 72; RESP 20; TEMP 98.1; O2SAT 95
[2017-08-11] MEDS: ACETAMINOPHEN/HYDROcodone 325 MG/10 MG TAB PO PRN ×5 (01:29→20:14)
[2017-08-11] MEDS ORDERED: SODIUM CHLORID 0.9% 500 ML IV PRN (02:00)
[2017-08-11] MEDS ORDERED: POVIDONE IODINE 5% (ANTISEPSIS KIT) 4 APPLICATIONS EACH NARE PRN (02:00)
[2017-08-11] MEDS ORDERED: LACTATED RINGER'S 1000 ML IV PRN (02:00)
[2017-08-11] MEDS ORDERED: CHLORHEXIDINE GLUCONATE 2 % 1 PACK (2 CLOTHS) TOPICAL PRN (02:00)
[2017-08-11] MEDS: CHLORHEXIDINE GLUCONATE 2 % 1 PACK (2 CLOTHS) TOP SCH (02:53)
[2017-08-11] MEDS: GABAPENTIN 300 MG CAP PO SCH ×3 (05:44→20:12)
[2017-08-11] MEDS: GLIMEPIRIDE 2 MG TAB PO SCH ×2 (05:44→16:45)
[2017-08-11 08:00] VITALS: BP 150/71; PULSE 91; RESP 18; TEMP 98; O2SAT 90
[2017-08-11] MEDS: INSULIN ASPART SUPPLEMENTAL SCALE SQ SCH ×4 (08:00→22:48)
[2017-08-11] MEDS: hydrALAZINE HCL 50 MG TAB PO SCH ×4 (08:05→16:45)
[2017-08-11] MEDS: DOCUSATE SODIUM 50 MG/SENNA 8.6 MG TAB PO SCH ×2 (08:05→20:13)
[2017-08-11] MEDS: CARVEDILOL 12.5 MG TAB PO SCH ×2 (08:06→20:13)
[2017-08-11] MEDS: PARoxetine HCL 20 MG TAB PO SCH (08:06)
[2017-08-11] MEDS: ALLOPURINOL 100 MG TAB PO SCH (08:06)
[2017-08-11] MEDS: ASPIRIN EC 81 MG TABEC PO SCH (08:06)
[2017-08-11] MEDS: NYSTATIN SUSP 500,000 U/5 ML CUP SWISH-SWAL SCH ×4 (08:06→20:14)
[2017-08-11] MEDS: LOSARTAN 50 MG TAB PO SCH ×2 (08:06→20:12)
[2017-08-11] MEDS: CLOPIDOGREL 75 MG TAB PO SCH (08:06)
[2017-08-11] MEDS: FAMOTIDINE 20 MG TAB PO SCH ×2 (08:06→20:13)
[2017-08-11] MEDS: NIFEdipine 60 MG SUSTAINED RELEASE TAB PO SCH ×2 (08:07→20:13)
[2017-08-11] MEDS: FUROSEMIDE 40 MG TAB PO SCH (08:07)
[2017-08-11] MEDS: metFORMIN HCL 500 MG TAB PO SCH ×2 (08:08→20:15)
[2017-08-11] MEDS: FLUTICASONE PROPIONATE 50 MCG/ACT 16 GM NASAL SPRAY EACH NARE SCH (08:12)
[2017-08-11 09:10] VITALS: O2SAT 92
[2017-08-11 10:14] LABS: AUTOMATED NEUTROPHIL # 4.2 TH/MM3 (1.8-7.7); BASOPHIL % 0.7 % (0.0-2.0); EOSINOPHIL # 0.1 TH/MM3 (0-0.4); EOSINOPHIL % 1.6 % (0.0-4.0); HEMATOCRIT 27.4 % (39.0-51.0); LYMPH % 15.1 % (9.0-44.0); LYMPHOCYTE # 0.9 TH/MM3 (1.0-4.8); MEAN CELL VOLUME 81.9 FL (80.0-100.0); MEAN CORPUSCULAR HEMOGLOBIN 26.9 PG (27.0-34.0); MEAN CORPUSCULAR HGB CONC 32.8 % (32.0-36.0); MEAN PLATELET VOLUME 6.8 FL (7.0-11.0); MONO % 13.1 % (0.0-8.0); MONOCYTE # 0.8 TH/MM3 (0-0.9); NEUT % 69.5 % (16.0-70.0); PLATELET COUNT 278 TH/MM3 (150-450); RED BLOOD COUNT 3.35 MIL/MM3 (4.50-5.90); RED CELL DISTRIBUTION WIDTH 14.8 % (11.6-17.2)
[2017-08-11 10:40] LABS: BICARBONATE 27.8 MEQ/L (21.0-32.0); CALCIUM 8.8 MG/DL (8.5-10.1); CREATININE 0.89 MG/DL (0.60-1.30); MAGNESIUM 1.9 MG/DL (1.5-2.5)
[2017-08-11 12:00] VITALS: BP 139/74; PULSE 89; RESP 19; TEMP 98; O2SAT 95
[2017-08-11] MEDS ORDERED: PROPOFOL 200 MG/20 ML AMP IV ONE (12:00)
[2017-08-11] MEDS ORDERED: KETAMINE HCL 500 MG/10 ML VIAL ONE (12:29)
--- NOTE | 2017-08-11 13:05 | GIPROC ---
[facility] [address] [facility]. [facility], [address] EGD PROCEDURE REPORT EXAM DATE: 08/11/2017 PATIENT NAME: Ihsan Rios MR #: [id number] BIRTHDATE: 1970 ATTENDING: Alma Rosa Mccormick MD ORDER #: [id number] DIRECTOR OF SALES AND MARKETING: Chet Castillo and Anuja Hamilton STATUS: inpatient INDICATIONS: The patient is a 47 yr old male here for an EGD due to anemia diarrhea PROCEDURE PERFORMED: EGD w/ biopsy MEDICATIONS: None and Per Anesthesia. TOPICAL ANESTHETIC: Cetacaine [place] CONSENT: The patient understands the risks and benefits of the procedure and understands that these risks include, but are not limited to: sedation, allergic reaction, infection, perforation and/or bleeding. Alternative means of evaluation and treatment include, among others: physical exam, x-rays, and/or surgical intervention. The patient elects to proceed with this endoscopic procedure. medical equipment was checked for proper function. Hand hygiene and appropriate measures for infection prevention was taken. After the risks, benefits and alternatives of the procedure were thoroughly explained, Informed consent was verified, confirmed and timeout was successfully executed by the treatment team. The patient was anesthetized with topical anesthesia and the EC-[id number] (Pedi C) endoscope was introduced through the mouth and advanced to the second portion of the duodenum. Retroflexed views revealed a hiatal hernia The gastroscope was then slowly withdrawn and removed. Duodenum normal-biopsy second portion-r/o celiac disease gastritis antrum-biopsy esophagitis r/o Thompson's-biopsy. ADVERSE EVENTS: There were no complications. IMPRESSIONS: 1. Duodenum normal-biopsy second portion-r/o celiac disease gastritis antrum-biopsy esophagitis r/o Thompson's-biopsy 2. Retroflexed views revealed a hiatal hernia RECOMMENDATIONS: 1. Await biopsy results. Biopsy results will not be ready for 7-10 days. If you don't hear from us in two weeks, call our office for biopsy results. 2. Anti-reflux regimen 3. Start PPI 4. Avoid NSAIDS PATIENT CONDITION: stable DISPOSITION: Inpatient REPEAT EXAM: Return 1 year EGD Alma Rosa Mccormick MD eSigned: Alma Rosa Mccormick MD 08/11/2017 1:04 PM cc: PATIENT NAME: TanvirIhsan MR#: [id number]
[2017-08-11] MEDS ORDERED: DO NOT ADM ANY ANTICOAGULANT DRUGS PRN (13:07)
--- NOTE | 2017-08-11 13:08 | GIPROC ---
[facility] [address] [facility]. [facility], [address] COLONOSCOPY PROCEDURE REPORT EXAM DATE: 08/11/2017 PATIENT NAME: Ihsan Rios MR #: [id number] BIRTHDATE: 1970 ENDOSCOPIST: Alma Rosa Mccormick MD ORDER #: [id number] DEAN FOR STUDENT AFFAIRS: Chet Castillo and Anuja Hamilton STATUS: inpatient INDICATIONS: The patient is a 47 yr old male here for a colonoscopy due to anemia PROCEDURE PERFORMED: Colonoscopy, diagnostic MEDICATIONS: None and Per Anesthesia. PREP QUALITY: fair PREP TYPE:Other: ESTIMATED BLOOD LOSS: None CONSENT: The patient understands the risks and benefits of the procedure and understands that these risks include, but are not limited to: sedation, allergic reaction, infection, perforation and/or bleeding. Alternative means of evaluation and treatment include, among others: physical exam, x-rays, and/or surgical intervention. The patient elects to proceed with this endoscopic procedure. medical equipment was checked for proper function. Hand hygiene and appropriate measures for infection prevention was taken. After the risks, benefits and alternatives of the procedure were thoroughly explained, Informed consent was verified, confirmed and timeout was successfully executed by the treatment team. A digital exam revealed external hemorrhoids The Pentax EC-[id number] endoscope was introduced through the anus and advanced to the cecum, which was identified by both the appendix and ileocecal valve. The instrument was then slowly withdrawn as the colon was fully examined. COLON FINDINGS: Diverticulosis sigmoid,descending. Retroflexed views revealed internal hemorrhoids and Retroflexed views revealed small internal hemorrhoids The scope was then completely withdrawn from the patient and the procedure terminated. PROCEDURE WITHDRAWAL TIME:6minutes ADVERSE EVENTS: There were no complications. IMPRESSIONS: 1. Diverticulosis sigmoid,descending 2. Retroflexed views revealed internal hemorrhoids 3. Retroflexed views revealed small internal hemorrhoids 4. Revealed external hemorrhoids RECOMMENDATIONS: 1. Benefiber 2 tsp daily 2. Probiotics from any [facility] or health food store 3. Capsule endoscopy op RECALL: Return 5 years Colonoscopy Alma Rosa Mccormick MD eSigned: Alma Rosa Mccormick MD 08/11/2017 1:07 PM cc:
--- NOTE | 2017-08-11 15:57 | HHI.FF ---
Face to Face Verification Diagnosis: (1) Achilles rupture, right (2) Unspecified psychosis (3) Diabetes mellitus with hyperglycemia (4) Adjustment disorder with anxiety (5) Hypercapnic respiratory failure (6) COPD exacerbation (7) DM (diabetes mellitus) Physical Therapy Order: Evaluate and Treat, Improve ambulation, Strength and gait training Home Health Nursing Order: Medical education Signs/symptoms of disease process Diabetic education Medication education-adverse effect Wound care and dressing changes Nursing assessment with vital signs I have seen patient Ihsan Zaire Rios on 08/11/17. My clinical findings support the need for the requested home health care services because: Ltd mobility - disease progression Deconditioned w/ increased weakness Med compliance is questionable Limited ability to care for self Need for psychosocial assistance High risk of falls I certify that my clinical findings support that this patient is homebound because: Impaired cognitive ability/safety Unsteady gait/balance Unsafe to leave home unassisted Need for psychosocial assistance Pbf-[id number]-[id number] bed/chair Unable to use public transportation Frank Cordero DO Aug 11, 2017 15:57
[2017-08-11 16:00] VITALS: BP 148/63; PULSE 91; RESP 19; TEMP 98.1; O2SAT 93
--- NOTE | 2017-08-11 16:09 | HHI.PR ---
Subjective Remarks No new complaints. Objective Vitals Vital Signs Date Time Temp Pulse Resp B/P (MAP) Pulse Ox O2 Delivery O2 Flow Rate FiO2 08/11/17 13:20 80 16 96 Room Air 08/11/17 13:15 82 16 138/66 (90) 95 Room Air 08/11/17 13:05 97.6 84 16 139/66 (90) 93 Room Air 08/11/17 12:00 98.0 89 19 139/74 (95) 95 08/11/17 09:10 92 21 08/11/17 08:00 98.0 91 18 150/71 (97) 90 08/11/17 00:00 98.1 72 20 131/65 (87) 95 08/10/17 22:28 96 Nasal Cannula 1.00 08/10/17 20:00 97.9 89 20 142/80 (100) 96 08/10/17 18:47 98.1 91 17 136/78 92 08/10/17 16:04 97.8 92 17 142/69 93 08/10/17 16:00 97.6 90 17 146/66 (92) 95 08/11/17 08/11/17 08/12/17 15:00 23:00 07:00 Intake Total 100 ml Balance 100 ml Other 100 ml Result Diagram: 08/11/17 0800 08/11/17 0820 Imaging Last Impressions Head CT 08/04/17 0000 Signed Impressions: CONCLUSION: No acute intracranial findings. Ankle X-Ray 07/24/17 1256 Signed Impressions: CONCLUSION: 1. An apparent focal cortical break of the calcaneus just posterior to the sub talar joint. This appears new. 2. Splint present. 3. Multifocal ankle and hindfoot osteoarthritis. 4. Accessory navicular and large os peroneum. Chest X-Ray 07/23/17 0600 Signed Impressions: CONCLUSION: Cardiomegaly. Ankle MRI 07/21/17 0000 Signed Impressions: CONCLUSION: 1. Severe tendinopathy of the distal Achilles tendon with full-thickness tear. Tiny intact strand of tendon present medially. There is also partial avulsion of the Achilles tendon at the insertion site on the calcaneus. 2. Severe marrow edema posterior calcaneus especially the lateral aspect, prob ably a small impaction fracture. 3. Mild contusion posterior talus. 4. Small ankle joint effusion. Extensive subcutaneous edema. Lung Scan-VQ Nuclear Medicine 07/19/17 1528 Signed Impressions: CONCLUSION: 1. Low probability for pulmonary embolism. Compensated cardiomegaly. If high c linical suspicion CT angiogram would be of benefit. Objective Remarks GENERAL: This is a Morbidly obese 47 year old male patient, in no apparent distress. ENT: Erythema in the posterior pharynx and blistering on the uvula CARDIO: Regular rate and rhythm RESP: clear bilaterally ABD: Abdomen soft, non-tender, nondistended. Normal active bowel sounds EXT: Right lower extremity is wrapped in Ronnell bandage with a heel splint in place. 1-2+ pitting edema on the left, 1-2+ on the RLE and increased pain on the RLE with palpation. Procedures Open repair of right Achilles tendon rupture with flexor hallucis longus tendon transfer and gastrocnemius recession, right lower extremity on 07/24/[address] Murillo. A/P Problem List: (1) Hypercapnic respiratory failure ICD Codes: J96.92 - Respiratory failure, unspecified with hypercapnia Plan: Hypercapnic respiratory insufficiency Obesity hypoventilation syndrome COPD exacerbation - Pt is a 47 y/o male with morbid obesity and asthma/COPD who presents to the ED at [facility] on 07/19/17 with new onset worsening shortness of breath and presyncopal type symptoms for the last 1 week. - In the emergency department he was found to be quite hypoxic and hypercarbic with a primary respiratory acidosis and was placed on BiPAP and was admitted to ICU under the care of the Intensivists - Likely from his underlying sleep apnea - Patient was not on BiPAP at home prior to admission - comgmt with Pulm Med, Cardiology - BiPAP at night - Solu-Medrol changed to PO prednisone taper on 07/30, pt currently on Prednisone 10mg po daily - duonebs prn - Head of bed elevated 30 - VQ scan (07/21) --> low probability - 2-D echocardiogram 07/23/17: - The left ventricular systolic function is mildly reduced with an estimated ejection fraction in the range of 45- 50%. - Mild infero-posterior hypokinesis - Mild concentric left ventricular hypertrophy. - The left atrial size is moderately dilated. - Case d/w Cardiology, Dr. Hirsch, (07/27). - RHC completed (07/28) --> Class 2 Pulm HTN, PCW 23 - No Right heart strain, so sildenafil was stopped - Pt was on Lasix 80mg IV BID for volume overload, the Lasix was decreased to 40mg IV BID on 08/03 - Patient voided 6500 ml 07/30, 9350 ml on 10/31, 7400 ml on 07/22, 4000 ml on , 3500 ml on 08/03, pt has continued to void around 3000mL the last 2 days. - Lasix held on 08/07 due to rising creatinine - Creatinine 1.54 on 08/07, 1.04 (08/09) - Pt requiring supplemental O2 - Pt is going to need sleep study evaluation following discharge - discharge to home with [facility] and home PT 08/12/17 - Pt continues to refuse SNF Achilles rupture, right - At admission pt reported approximately 3 days prior to admission he had sudden onset right ankle pain and swelling and went to be evaluated by software product manager and was diagnosed with a possible Achilles tendon rupture. - Pt underwent open repair of right Achilles tendon rupture with flexor hallucis longus tendon transfer and gastrocnemius recession, right lower extremity on 07/24/[address] Murillo. - Per podiatry: Recommend rehab if patient unable to maintain non weight bearing status - Pt had dressing change 07/31. Pt healing well. - Per podiatry, pt will need to be strict non-weight bearing for 6-8 weeks. - Pt was noted to have increased swelling and pain in the RLE on 08/04 - LE Doppler US (08/04) --> Is negative for DVT - Morphine 4mg Q4H PRN for breakthrough was added on 08/04, this was stopped on in preparation for discharge - Amorita increased to 10/325mg q4h prn on 08/05 - Pt is trying to minimize narcotic use - Cont. gabapentin 300mg tid and tizanidine 2mg po q12h - Podiatry was reconsulted to re-evaluate as pt has not been compliant with the NWB status - Appreciate podiatry re-evaluating the wound on 08/05. They noted the "RLE posterior incision line is well coapted with all sutures intact, mild ecchymosis. No drainage. No erythema. Mild/mod edema to proximal calf." - Recommended continued NWB status to the RLE - A new splint ordered and RLE wrapped to the knee. - Cont to ice and elevate - Pt will need to f/u with at d/c Sore throat/sinus congestion - Likely viral, uvula with white blistered appearance - Throat cx is pending. - Chloraseptic spray and lozenges PRN. - Saline nasal spray and Flonase. - Start nystatin S/S DM (diabetes mellitus) - Pts BS this morning was in the 80s - Cont. Metformin - Amaryl 4mg BID and Levemir stopped on 08/04 as BS were running low but then BS began running high again - Amaryl 2mg BID added back on 08/05 - Cont. on NovoLog SSI - BS better controlled CAD (coronary artery disease) Recent history of pulmonary embolism - Patient had a PE approximately 8 months ago and was on Coumadin for until the cardiac cauterization 06/17/17 - Patient with recent cardiac catheterization with PCI 06/17/17 - After catheterization patient's Coumadin was DC'd and he was started on Aspirin and Plavix - Continue patient's Aspirin 81 mg daily, Plavix 75 mg PO daily, Atorvastatin 40 mg PO QHS and Coreg BID Hypertension - Pt is currently on Losartan 50 mg Q12H, Hydralazine 100mg TID, Procardia xl 60mg BID, Coreg 37.5mg BID, and Isosorbide 10mg q8h - Pts BP in the mornings after morning meds had been dropping with systolic into the 90s - Stop the Isosorbide on 08/04 and decrease Hydralazine to 50mg TID and monitor - BP has been better controlled. - labetalol and Clonidine prn - pain, narcotic dependency, and anxiety may be contributing - would prefer to minimize narcotics/benzodiazepines d/t JUDY and respiratory suppression Anemia - Pts H/H has slowly been declining. No noted active GIB - iron deficiency anemia - Hg 7.9 (08/09/17), 7.6 (08/10) - transfuse 2 units PRBCs (08/10) - Case d/w Dr. Mccormick (08/10) - EGD/Colonoscopy (08/11/17) with Dr. Mccormick - int/ext hemorrhoids - sigmoid diverticulosis - esophagitis - gastric biopsies taken, results pending - observe Hg level Anxiety and depression Auditory and visual hallucinations - Psychiatry was reconsulted on 08/03 - ABG was checked and was stable - Head CT was negative. - Repeat labs on 08/03 noted a slight increase in creatinine but otherwise were stable - Pt is more lucid today - EEG (08/04) --> Mild encephalopathy - Continue home alprazolam 0.5 mg BID as needed - Continue home paroxetine 20 mg p.o. daily for depression - Seroquel increased to 100mg po BID on 08/04 by psychiatry but pts is refusing this medication for him due to possible side effects - Seroquel stopped on 08/05 and pt appears to be doing much better from a mental status standpoint. - He is still having issues with anxiety - Pt has Ativan 0.5mg BID PRN and Haldol 5mg IM Q6H PRN ordered Morbid obesity - Patient to follow up with PCP for further weight loss and possible referral to bariatric surgery Hyperkalemia, improved - Pt still with hyperkalemia despite multiple doses of Kayexalate - K 6.0, 5.9, 5.2 (07/27) - K 5.2, 5.2, 5.3 (07/28) - calcium gluconate/ insulin with D50 given 07/28 - Labs have improved - r/o hypoaldosteronism - ACTH < 5, serum cortisol 9.7, renin 18, serum aldosterone 1.0. DVT prophylaxis with Lovenox 40 mg subq twice daily (2) COPD exacerbation ICD Codes: J44.1 - Chronic obstructive pulmonary disease with (acute) exacerbation (3) Achilles rupture, right ICD Codes: S86.011A - Strain of right Achilles tendon, initial encounter (4) DM (diabetes mellitus) ICD Codes: E11.9 - Type 2 diabetes mellitus without complications Status: Chronic (5) CAD (coronary artery disease) ICD Codes: I25.10 - Atherosclerotic heart disease of [place] coronary artery without angina pectoris (6) Anxiety and depression ICD Codes: F41.9 - Anxiety disorder, unspecified; F32.9 - Major depressive disorder, single episode, unspecified (7) Morbid obesity ICD Codes: E66.01 - Morbid (severe) obesity due to excess calories (8) Hyperkalemia ICD Codes: E87.5 - Hyperkalemia (9) Hypertension ICD Codes: I10 - Essential (primary) hypertension Status: Chronic Assessment and Plan Patient examined. Assessment and plan formulated with Minda Almazan PA-C. Eric agree with the above. Problem Qualifiers (1) DM (diabetes mellitus): Qualified Codes: E11.8 - Type 2 diabetes mellitus with unspecified complications; Z79.4 - MCFP (current) use of insulin (2) Hypertension: Qualified Codes: I10 - Essential (primary) hypertension Frank Cordero DO Aug 11, 2017 16:09
[2017-08-11] MEDS ORDERED: BARIATRIC ROLLA1 MIS (16:11)
--- NOTE | 2017-08-11 18:11 | HHI.PR ---
Subjective Remarks tired, had GI scope today. Objective Vital Signs Date Time Temp Pulse Resp B/P (MAP) Pulse Ox O2 Delivery O2 Flow Rate FiO2 08/11/17 16:00 98.1 91 19 148/63 (91) 93 08/11/17 13:20 80 16 96 Room Air 08/11/17 13:15 82 16 138/66 (90) 95 Room Air 08/11/17 13:05 97.6 84 16 139/66 (90) 93 Room Air 08/11/17 12:00 98.0 89 19 139/74 (95) 95 08/11/17 09:10 92 21 08/11/17 08:00 98.0 91 18 150/71 (97) 90 08/11/17 00:00 98.1 72 20 131/65 (87) 95 08/10/17 22:28 96 Nasal Cannula 1.00 08/10/17 20:00 97.9 89 20 142/80 (100) 96 08/10/17 18:47 98.1 91 17 136/78 92 I/O 08/10/17 08/10/17 08/10/17 08/11/17 08/11/17 08/11/17 07:00 15:00 23:00 07:00 15:00 23:00 Intake Total 650 ml 2246 ml 760 ml 100 ml Balance 650 ml 2246 ml 760 ml 100 ml Intake Oral 650 ml 1440 ml 360 ml Packed Cells 800 ml 400 ml Blood Product IV Normal Saline Flush 6 ml Other 100 ml # Voids 3 4 4 # Bowel Movements 0 2 6 Result Diagram: 08/11/17 0800 08/11/17 0820 Procedures Status post surgical intervention 07/24/[address] Murillo 1. Open repair of right achilles tendon rupture 2. Flexor hallucis longus tendon transfer right 3. Gastrocnemius recession right Objective Remarks A and O x3 NAD non labored respirations Right LE: minimal strikethrough on bandage, incision well coapted minimal clear drainage, no obvious SOI, achilles appears intact. foot is warm sensation intact , mild edema of calf Assessment and Plan Assessment and Plan Achilles rupture right, SP repair. Bandages changed, wound culture taken, recommend PO ABX coverage, strict non WB , FU with Dr Murillo next week. Ordered new splint to be applied from [employer]. Zach Hahn DPM Aug 11, 2017 18:11
[2017-08-11] MEDS: CLINDAMYCIN 150 MG CAP PO SCH ×2 (18:43→22:48)
--- NOTE | 2017-08-11 19:25 | HHI.PR ---
Subjective Remarks 47 YO Obese male with Br Asthma, HTN,DM,CAD with achilles tendon rupture s/p repair. Doing well Sleeping at Planning to send him home " Objective Vital Signs Vital Signs Date Time Temp Pulse Resp B/P (MAP) Pulse Ox O2 Delivery O2 Flow Rate FiO2 08/11/17 16:00 98.1 91 19 148/63 (91) 93 08/11/17 13:20 80 16 96 Room Air 08/11/17 13:15 82 16 138/66 (90) 95 Room Air 08/11/17 13:05 97.6 84 16 139/66 (90) 93 Room Air 08/11/17 12:00 98.0 89 19 139/74 (95) 95 08/11/17 09:10 92 21 08/11/17 08:00 98.0 91 18 150/71 (97) 90 08/11/17 00:00 98.1 72 20 131/65 (87) 95 08/10/17 22:28 96 Nasal Cannula 1.00 08/10/17 20:00 97.9 89 20 142/80 (100) 96 I/O 08/10/17 08/10/17 08/10/17 08/11/17 08/11/17 08/11/17 07:00 15:00 23:00 07:00 15:00 23:00 Intake Total 650 ml 2246 ml 760 ml 100 ml 960 ml Balance 650 ml 2246 ml 760 ml 100 ml 960 ml Intake Oral 650 ml 1440 ml 360 ml 960 ml Packed Cells 800 ml 400 ml Blood Product IV Normal Saline Flush 6 ml Other 100 ml # Voids 3 4 4 3 # Bowel Movements 0 2 6 3 Result Diagram: 08/11/17 0800 08/11/17 0820 Objective Remarks GENERAL: Obese WM, NAD SKIN: Warm and dry. HEAD: Normocephalic. EYES: No scleral icterus. No injection or drainage. NECK: Supple, trachea midline. No JVD or lymphadenopathy. CARDIOVASCULAR: Regular rate and rhythm without murmurs, gallops, or rubs. RESPIRATORY: Breath sounds equal bilaterally. No accessory muscle use. GASTROINTESTINAL: Abdomen soft, non-tender, nondistended. MUSCULOSKELETAL: No cyanosis, or edema. BACK: Nontender without obvious deformity. No CVA tenderness. A/P Assessment and Plan IMPRESSION: 1. Hypercapnic respiratory insufficiency, likely from his underlying sleep apnea. 2 Morbid obesity/JUDY 2. History of asthma. 3. Diabetes mellitus. 4. Hypertension. 5. Coronary artery disease, status post stent placement 6. History of pulmonary embolism. He is off anticoagulation. 7. Restrictive lung disease PLAN; Continue with oxygen keep sat 88-92 % Bronchodilators PFT showed restrictive lung disease with bronchodilators response BIPAP prn and at night if pt agrees GI/DVT prophylaxis- On Lovenox 40mg Q12 Advised to get Sleep study as out patient Luis Armando Sawyer MD Aug 11, 2017 19:25
[2017-08-11 20:00] VITALS: BP 149/70; PULSE 96; RESP 20; TEMP 97; O2SAT 93
[2017-08-11] MEDS: ATORVASTATIN 40 MG TAB PO SCH (20:12)
[2017-08-11] MEDS: LORazepam 0.5 MG TAB PO PRN (22:48)
[2017-08-12] VITALS: BP 133/60; PULSE 80; RESP 20; TEMP 98.3; O2SAT 94
[2017-08-12] MEDS: ACETAMINOPHEN/HYDROcodone 325 MG/10 MG TAB PO PRN ×4 (00:50→15:13)
[2017-08-12] MEDS: CHLORHEXIDINE GLUCONATE 2 % 1 PACK (2 CLOTHS) TOP SCH (04:00)
[2017-08-12] MEDS: CLINDAMYCIN 150 MG CAP PO SCH ×2 (04:50→12:57)
[2017-08-12] MEDS: GABAPENTIN 300 MG CAP PO SCH ×2 (04:50→12:57)
[2017-08-12] MEDS: GLIMEPIRIDE 2 MG TAB PO SCH (04:54)
[2017-08-12 07:05] LABS: AUTOMATED NEUTROPHIL # 4.5 TH/MM3 (1.8-7.7); BASOPHIL % 0.7 % (0.0-2.0); EOSINOPHIL # 0.1 TH/MM3 (0-0.4); EOSINOPHIL % 1.6 % (0.0-4.0); HEMOGLOBIN 8.8 GM/DL (13.0-17.0); LYMPHOCYTE # 1.1 TH/MM3 (1.0-4.8); MEAN CELL VOLUME 82.5 FL (80.0-100.0); MEAN CORPUSCULAR HEMOGLOBIN 26.8 PG (27.0-34.0); MEAN CORPUSCULAR HGB CONC 32.5 % (32.0-36.0); MEAN PLATELET VOLUME 6.7 FL (7.0-11.0); MONO % 14.1 % (0.0-8.0); MONOCYTE # 0.9 TH/MM3 (0-0.9); NEUT % 67.6 % (16.0-70.0); PLATELET COUNT 260 TH/MM3 (150-450); RED BLOOD COUNT 3.28 MIL/MM3 (4.50-5.90); RED CELL DISTRIBUTION WIDTH 14.4 % (11.6-17.2); WHITE BLOOD COUNT 6.7 TH/MM3 (4.0-11.0)
[2017-08-12 08:00] VITALS: BP 146/68; PULSE 81; RESP 17; TEMP 97.7; O2SAT 93
[2017-08-12] MEDS: INSULIN ASPART SUPPLEMENTAL SCALE SQ SCH ×2 (08:00→12:00)
[2017-08-12 09:02] VITALS: O2SAT 93
[2017-08-12] MEDS ORDERED: MIDAZOLAM HCL 2 MG/2 ML VIAL ONE (09:18)
[2017-08-12] MEDS: CARVEDILOL 12.5 MG TAB PO SCH (09:21)
[2017-08-12] MEDS: NIFEdipine 60 MG SUSTAINED RELEASE TAB PO SCH (09:22)
[2017-08-12] MEDS: FAMOTIDINE 20 MG TAB PO SCH (09:22)
[2017-08-12] MEDS: LOSARTAN 50 MG TAB PO SCH (09:22)
[2017-08-12] MEDS: ALLOPURINOL 100 MG TAB PO SCH (09:22)
[2017-08-12] MEDS: metFORMIN HCL 500 MG TAB PO SCH (09:22)
[2017-08-12] MEDS: DOCUSATE SODIUM 50 MG/SENNA 8.6 MG TAB PO SCH (09:22)
[2017-08-12] MEDS: PARoxetine HCL 20 MG TAB PO SCH (09:22)
[2017-08-12] MEDS: ASPIRIN EC 81 MG TABEC PO SCH (09:22)
[2017-08-12] MEDS: hydrALAZINE HCL 50 MG TAB PO SCH ×2 (09:22→12:57)
[2017-08-12] MEDS: CLOPIDOGREL 75 MG TAB PO SCH (09:23)
[2017-08-12] MEDS: FUROSEMIDE 40 MG TAB PO SCH (09:23)
[2017-08-12] MEDS: NYSTATIN SUSP 500,000 U/5 ML CUP SWISH-SWAL SCH ×2 (09:24→12:57)
[2017-08-12] MEDS: FLUTICASONE PROPIONATE 50 MCG/ACT 16 GM NASAL SPRAY EACH NARE SCH (09:24)
[2017-08-12] MEDS ORDERED: CLIN150 PO (10:12)
[2017-08-12] MEDS ORDERED: NIFE60TA8 PO (10:12)
[2017-08-12] MEDS ORDERED: NEUR300C PO (10:12)
[2017-08-12] MEDS ORDERED: COZA50TA PO (10:12)
[2017-08-12] MEDS ORDERED: Nystatin Liq SWISH-SWAL (10:12)
--- NOTE | 2017-08-12 11:55 | HHI.PR ---
Subjective Remarks 47 YO Obese male with Br Asthma, HTN,DM,CAD with achilles tendon rupture s/p repair. Doing well Sleeping at Feels great Objective Vital Signs Vital Signs Date Time Temp Pulse Resp B/P (MAP) Pulse Ox O2 Delivery O2 Flow Rate FiO2 08/12/17 09:02 93 21 08/12/17 08:00 97.7 81 17 146/68 (94) 93 08/12/17 00:00 98.3 80 20 133/60 (84) 94 08/11/17 20:00 97.0 96 20 149/70 (96) 93 08/11/17 16:00 98.1 91 19 148/63 (91) 93 08/11/17 13:20 80 16 96 Room Air 08/11/17 13:15 82 16 138/66 (90) 95 Room Air 08/11/17 13:05 97.6 84 16 139/66 (90) 93 Room Air 08/11/17 12:00 98.0 89 19 139/74 (95) 95 I/O 08/11/17 08/11/17 08/11/17 08/12/17 08/12/17 08/12/17 07:00 15:00 23:00 07:00 15:00 23:00 Intake Total 760 ml 100 ml 960 ml 720 ml Balance 760 ml 100 ml 960 ml 720 ml Intake Oral 360 ml 960 ml 720 ml Packed Cells 400 ml Other 100 ml # Voids 4 3 # Bowel Movements 6 3 Result Diagram: 08/12/17 0630 08/11/17 0820 Objective Remarks GENERAL: Obese WM, NAD SKIN: Warm and dry. HEAD: Normocephalic. EYES: No scleral icterus. No injection or drainage. NECK: Supple, trachea midline. No JVD or lymphadenopathy. CARDIOVASCULAR: Regular rate and rhythm without murmurs, gallops, or rubs. RESPIRATORY: Breath sounds equal bilaterally. No accessory muscle use. GASTROINTESTINAL: Abdomen soft, non-tender, nondistended. MUSCULOSKELETAL: No cyanosis, or edema. BACK: Nontender without obvious deformity. No CVA tenderness. A/P Assessment and Plan IMPRESSION: 1. Hypercapnic respiratory insufficiency, likely from his underlying sleep apnea. 2 Morbid obesity/JUDY 2. History of asthma. 3. Diabetes mellitus. 4. Hypertension. 5. Coronary artery disease, status post stent placement 6. History of pulmonary embolism. He is off anticoagulation. 7. Restrictive lung disease PLAN; Continue with oxygen keep sat 88-92 % Bronchodilators PFT showed restrictive lung disease with bronchodilators response BIPAP prn and at night if pt agrees GI/DVT prophylaxis- On Lovenox 40mg Q12 Advised to get Sleep study as out patient He will see Dr. Capellan for sleep study. Luis Armando Sawyer MD Aug 12, 2017 11:55
[2017-08-12 12:00] VITALS: BP 108/54; PULSE 68; RESP 17; TEMP 98.3; O2SAT 92
[2017-08-12] MEDS ORDERED: PROT40TA PO (12:33)
[2017-08-12] MEDS ORDERED: WALKER WHEELS/F1 MIS (12:37)
--- NOTE | 2017-08-12 14:47 | HHI.DS ---
Discharge Summary Admission Date July 19, 2017 at 18:55 Discharge Date: Aug 12, 2017 Admitting Diagnosis RESPIRATORY FAILURE (1) Hypercapnic respiratory failure ICD Codes: J96.92 - Respiratory failure, unspecified with hypercapnia (2) COPD exacerbation ICD Codes: J44.1 - Chronic obstructive pulmonary disease with (acute) exacerbation (3) Achilles rupture, right ICD Codes: S86.011A - Strain of right Achilles tendon, initial encounter (4) DM (diabetes mellitus) ICD Codes: E11.9 - Type 2 diabetes mellitus without complications Status: Chronic (5) CAD (coronary artery disease) ICD Codes: I25.10 - Atherosclerotic heart disease of [place] coronary artery without angina pectoris (6) Anxiety and depression ICD Codes: F41.9 - Anxiety disorder, unspecified; F32.9 - Major depressive disorder, single episode, unspecified (7) Morbid obesity ICD Codes: E66.01 - Morbid (severe) obesity due to excess calories (8) Hyperkalemia ICD Codes: E87.5 - Hyperkalemia (9) Hypertension ICD Codes: I10 - Essential (primary) hypertension Status: Chronic Consultants Dr. Jane and Dr. Hirsch, Cardiology Dr. Murillo, Podiatry Dr. Sawyer, Pulmonology Dr. Mortensen, Psych Dr. Steele, nephrology Dr. Mccormick, GI Dr. Hale, ICU Procedures Open repair of right Achilles tendon rupture with flexor hallucis longus tendon transfer and gastrocnemius recession, right lower extremity on 07/24/[address] Murillo. RHC completed (07/28) --> Class 2 Pulm HTN, PCW 23 EGD/Colonoscopy (08/11/17) with Dr. Mccormick EEG (08/04) --> Mild encephalopathy Brief History This is a 47-year-old male with a history of morbid obesity and asthma/COPD who presents with new onset worsening shortness of breath and presyncopal type symptoms for the last 1 week. Of note, he was diagnosed with a small subsegmental left lower lobe PE about 8 months ago was on Coumadin up until 6 weeks ago when he had a left heart catheterization with stenting by Dr. Hirsch with [facility] business development director and was since transition to aspirin Plavix. Also of note, the patient approximately 3 days ago had sudden onset right ankle pain and swelling and went to be evaluated by pants busheler and was diagnosed with a possible Achilles tendon rupture. He describes the shortness of breath is slowly worsening in the sense that he just cannot catch his breath. It is worse with exertion. He does not have any symptoms that are concerning for orthopnea, paroxysmal nocturnal dyspnea. Denies cough or fever. Denies sputum production. He does endorse cold intolerance and intermittent chills over the last 1 week. His and her father were both recently hospitalized for what she describes as "pneumonia which was not present on chest x-ray but only diagnosed on CAT scan" and she states was accompanied by "Sirs response". He states he has never been worked up or diagnosed with sleep apnea, however his states that he intermittently stops breathing and gasp for air and when he does breathe he has significant snoring with any resting or sleeping. He endorses fatigue, generalized daytime sleepiness. He denies nausea, vomiting, diarrhea, constipation, abdominal pain. The remainder of the review systems is negative. In the emergency department he was found to have a chest x-ray concerning for cardiomegaly with questionable pulmonary vascular congestion. His creatinine is slightly elevated at 1.6, so a VQ scan was ordered which was low probability for PE. He was placed on heparin drip and transferred from the [place] emergency department to the [facility] ICU. In the emergency department he was found to be quite hypoxic and hypercarbic with a primary respiratory acidosis and was placed on BiPAP. CBC/BMP: 08/12/17 0630 08/11/17 0820 Significant Findings Laboratory Tests Test 08/10/17 11:47 08/10/17 13:59 08/11/17 08:00 08/11/17 08:20 Red Blood Count 2.93 MIL/MM3 (4.50-5.90) 3.35 MIL/MM3 (4.50-5.90) Hemoglobin 7.6 GM/DL (13.0-17.0) 9.0 GM/DL (13.0-17.0) Hematocrit 23.6 % (39.0-51.0) 27.4 % (39.0-51.0) Mean Corpuscular Hemoglobin 26.0 PG (27.0-34.0) 26.9 PG (27.0-34.0) Mean Platelet Volume 6.7 FL (7.0-11.0) 6.8 FL (7.0-11.0) Neutrophils (%) (Auto) 71.0 % (16.0-70.0) Monocytes (%) (Auto) 12.9 % (0.0-8.0) 13.1 % (0.0-8.0) Blood Urea Nitrogen 31 MG/DL (7-18) 21 MG/DL (7-18) Calcium Level 8.3 MG/DL (8.5-10.1) Estimat Glomerular Filtration Rate 68 ML/MIN (>89) Lymphocytes # (Auto) 0.9 TH/MM3 (1.0-4.8) Test 08/12/17 06:30 Red Blood Count 3.28 MIL/MM3 (4.50-5.90) Hemoglobin 8.8 GM/DL (13.0-17.0) Hematocrit 27.0 % (39.0-51.0) Mean Corpuscular Hemoglobin 26.8 PG (27.0-34.0) Mean Platelet Volume 6.7 FL (7.0-11.0) Monocytes (%) (Auto) 14.1 % (0.0-8.0) Imaging Last Impressions Knee X-Ray 08/09/17 0000 Signed Impressions: CONCLUSION: 1. Small suprapatellar joint effusion. 2. Otherwise, unremarkable radiographs of the right knee. Lower Extremity Ultrasound 08/04/17 0000 Signed Impressions: CONCLUSION: 1. The study is negative for right lower extremity deep venous thrombosis. Head CT 08/04/17 0000 Signed Impressions: CONCLUSION: No acute intracranial findings. Ankle X-Ray 07/24/17 1256 Signed Impressions: CONCLUSION: 1. An apparent focal cortical break of the calcaneus just posterior to the sub talar joint. This appears new. 2. Splint present. 3. Multifocal ankle and hindfoot osteoarthritis. 4. Accessory navicular and large os peroneum. Chest X-Ray 07/23/17 0600 Signed Impressions: CONCLUSION: Cardiomegaly. Ankle MRI 07/21/17 0000 Signed Impressions: CONCLUSION: 1. Severe tendinopathy of the distal Achilles tendon with full-thickness tear. Tiny intact strand of tendon present medially. There is also partial avulsion of the Achilles tendon at the insertion site on the calcaneus. 2. Severe marrow edema posterior calcaneus especially the lateral aspect, prob ably a small impaction fracture. 3. Mild contusion posterior talus. 4. Small ankle joint effusion. Extensive subcutaneous edema. Lung Scan-VQ Nuclear Medicine 07/19/17 1528 Signed Impressions: CONCLUSION: 1. Low probability for pulmonary embolism. Compensated cardiomegaly. If high c linical suspicion CT angiogram would be of benefit. PE at Discharge GENERAL: This is a Morbidly obese 47 year old male patient, in no apparent distress. ENT: Erythema in the posterior pharynx and blistering on the uvula CARDIO: Regular rate and rhythm RESP: clear bilaterally ABD: Abdomen soft, non-tender, nondistended. Normal active bowel sounds EXT: Right lower extremity is wrapped in Ronnell bandage with a heel splint in place. 1-2+ pitting edema on the left, 1-2+ on the RLE and increased pain on the RLE with palpation. Hospital Course Hypercapnic respiratory insufficiency Obesity hypoventilation syndrome COPD exacerbation - Pt is a 47 y/o male with morbid obesity and asthma/COPD who presents to the ED at [facility] on 07/19/17 with new onset worsening shortness of breath and presyncopal type symptoms for the last 1 week. - In the emergency department he was found to be quite hypoxic and hypercarbic with a primary respiratory acidosis and was placed on BiPAP and was admitted to ICU under the care of the Intensivists - Likely from his underlying sleep apnea - Patient was not on BiPAP at home prior to admission - comgmt with Pulm Med, Cardiology - BiPAP at night - Solu-Medrol changed to PO prednisone taper on 07/30, pt currently on Prednisone 10mg po daily - duonebs prn - Head of bed elevated 30 - VQ scan (07/21) --> low probability - 2-D echocardiogram 07/23/17: - The left ventricular systolic function is mildly reduced with an estimated ejection fraction in the range of 45- 50%. - Mild infero-posterior hypokinesis - Mild concentric left ventricular hypertrophy. - The left atrial size is moderately dilated. - Case d/w Cardiology, Dr. Hirsch, (07/27). - RHC completed (07/28) --> Class 2 Pulm HTN, PCW 23 - No Right heart strain, so sildenafil was stopped - Pt was on Lasix 80mg IV BID for volume overload, the Lasix was decreased to 40mg IV BID on 08/03 - Patient voided 6500 ml 07/30, 9350 ml on 10/31, 7400 ml on 07/22, 4000 ml on , 3500 ml on 08/03, pt has continued to void around 3000mL the last 2 days. - Lasix held on 08/07 due to rising creatinine - Creatinine 1.54 on 08/07, 1.04 (08/09) - Pt requiring supplemental O2 - Pt is going to need sleep study evaluation following discharge - discharge to home with [facility] and home PT 08/12/17 - Pt continues to refuse SNF Achilles rupture, right - At admission pt reported approximately 3 days prior to admission he had sudden onset right ankle pain and swelling and went to be evaluated by pants busheler and was diagnosed with a possible Achilles tendon rupture. - Pt underwent open repair of right Achilles tendon rupture with flexor hallucis longus tendon transfer and gastrocnemius recession, right lower extremity on 07/24/[address] Murillo. - Per podiatry: Recommend rehab if patient unable to maintain non weight bearing status - Pt had dressing change 07/31. Pt healing well. - Per podiatry, pt will need to be strict non-weight bearing for 6-8 weeks. - Pt was noted to have increased swelling and pain in the RLE on 08/04 - LE Doppler US (08/04) --> Is negative for DVT - Morphine 4mg Q4H PRN for breakthrough was added on 08/04, this was stopped on in preparation for discharge - [place] increased to 10/325mg q4h prn on 08/05 - Pt is trying to minimize narcotic use - Cont. gabapentin 300mg tid and tizanidine 2mg po q12h - Podiatry was reconsulted to re-evaluate as pt has not been compliant with the NWB status - Appreciate podiatry re-evaluating the wound on 08/05. They noted the "RLE posterior incision line is well coapted with all sutures intact, mild ecchymosis. No drainage. No erythema. Mild/mod edema to proximal calf." - Recommended continued NWB status to the RLE - A new splint ordered and RLE wrapped to the knee. - Cont to ice and elevate - Pt will need to f/u with at d/c Sore throat/sinus congestion - Likely viral, uvula with white blistered appearance - Throat cx is pending. - Chloraseptic spray and lozenges PRN. - Saline nasal spray and Flonase. - Start nystatin S/S DM (diabetes mellitus) - Pts BS this morning was in the 80s - Cont. Metformin - Amaryl 4mg BID and Levemir stopped on 08/04 as BS were running low but then BS began running high again - Amaryl 2mg BID added back on 08/05 - Cont. on NovoLog SSI - BS better controlled CAD (coronary artery disease) Recent history of pulmonary embolism - Patient had a PE approximately 8 months ago and was on Coumadin for until the cardiac cauterization 06/17/17 - Patient with recent cardiac catheterization with PCI 06/17/17 - After catheterization patient's Coumadin was DC'd and he was started on Aspirin and Plavix - Continue patient's Aspirin 81 mg daily, Plavix 75 mg PO daily, Atorvastatin 40 mg PO QHS and Coreg BID Hypertension - Pt is currently on Losartan 50 mg Q12H, Hydralazine 100mg TID, Procardia xl 60mg BID, Coreg 37.5mg BID, and Isosorbide 10mg q8h - Pts BP in the mornings after morning meds had been dropping with systolic into the 90s - Stop the Isosorbide on 08/04 and decrease Hydralazine to 50mg TID and monitor - BP has been better controlled. - labetalol and Clonidine prn - pain, narcotic dependency, and anxiety may be contributing - would prefer to minimize narcotics/benzodiazepines d/t JUDY and respiratory suppression Anemia - Pts H/H has slowly been declining. No noted active GIB - iron deficiency anemia - Hg 7.9 (08/09/17), 7.6 (08/10) - transfuse 2 units PRBCs (08/10) - Case d/w Dr. Mccormick (08/10) - EGD/Colonoscopy (08/11/17) with Dr. Mccormick - int/ext hemorrhoids - sigmoid diverticulosis - esophagitis - gastric biopsies taken, results pending - observe Hg level Anxiety and depression Auditory and visual hallucinations - Psychiatry was reconsulted on 08/03 - ABG was checked and was stable - Head CT was negative. - Repeat labs on 08/03 noted a slight increase in creatinine but otherwise were stable - Pt is more lucid today - EEG (08/04) --> Mild encephalopathy - Continue home alprazolam 0.5 mg BID as needed - Continue home paroxetine 20 mg p.o. daily for depression - Seroquel increased to 100mg po BID on 08/04 by psychiatry but pts is refusing this medication for him due to possible side effects - Seroquel stopped on 08/05 and pt appears to be doing much better from a mental status standpoint. - He is still having issues with anxiety - Pt has Ativan 0.5mg BID PRN and Haldol 5mg IM Q6H PRN ordered Morbid obesity - Patient to follow up with PCP for further weight loss and possible referral to bariatric surgery Hyperkalemia, improved - Pt still with hyperkalemia despite multiple doses of Kayexalate - K 6.0, 5.9, 5.2 (07/27) - K 5.2, 5.2, 5.3 (07/28) - calcium gluconate/ insulin with D50 given 07/28 - Labs have improved - r/o hypoaldosteronism - ACTH < 5, serum cortisol 9.7, renin 18, serum aldosterone 1.0. DVT prophylaxis with Lovenox 40 mg subq twice daily Pt Condition on Discharge: Stable Discharge Disposition: Disch w/ Home Health Serv Discharge Instructions DIET: Follow Instructions for: Weight Management Activities you can perform: See Additionl Instruction Other Activity Instructions: NON-weight bearing to RLE Follow up Referrals: Gastroenterology - 2 Weeks with Alma Rosa Mccormick MD PCP Follow-up - [address] Gannon Podiatry - 1 Week @ [facility] with Magalis Murillo DPM Pulmonology - 2 Weeks with Timi Capellan MD New Medications: Pantoprazole (Protonix) 40 Mg Tab 40 MG PO DAILY for Ulcer Prevention, #30 TAB 0 Refills Walker with Front Wheels (Walker with Front Wheels) 1 Mis Mis EA .XX DIRECTED, #1 0 Refills Patient needs bariatric walker weight is 178.9 kg Wheelchair (Wheelchair) 1 Mis Mis EA .XX DIRECTED, #1 0 Refills bariatric wheelchair with removeable legs, elevating leg rest Patient weight 187 kg and non weight bearing RLE Wheelchair Elevated Leg (Wheelchair Elevated Leg) 1 Mis Mis EA .XX DIRECTED, #1 0 Refills Clindamycin (Cleocin) 150 Mg Cap 300 MG PO Q6HR for antibiotic for 9 Days, CAP 0 Refills Gabapentin (Neurontin) 300 Mg Cap 300 MG PO Q8HR for nerve pain for 30 Days, CAP 0 Refills Hydrocodone/Acetaminophen (Hydrocodone-Acetamin 10-325 mg) 10 Mg-325 Mg Tablet 1 TAB PO Q4H PRN for pain, #15 TAB 0 Refills Losartan (Cozaar) 50 Mg Tab 50 MG PO Q12HR for blood pressure, #60 TAB 0 Refills Nifedipine ER 24 HR (Nifedipine ER 24 HR) 60 Mg Tab 60 MG PO Q12HR for blood pressure, #60 TAB 0 Refills [Nystatin Liq] () 5 ML SUSP 5 ML SWISH-SWAL QID for oral thrush for 5 Days, BOTTLE 0 Refills Continued Medications: Allopurinol (Zyloprim) 100 Mg Tab 100 MG PO DAILY for Gout, #30 TAB [address] (Aspirin DR) 81 Mg Tabdr 81 MG PO DAILY for prev care, #31 TAB Atorvastatin (Atorvastatin) 40 Mg Tab 40 MG PO HS for hyperlipidemia, #31 TAB Carvedilol (Carvedilol) 25 Mg Tab 25 MG PO BID, #60 TAB 0 Refills Clopidogrel (Clopidogrel) 75 Mg Tab 75 MG PO DAILY for Blood Clot Prevention, #30 TAB 0 Refills Furosemide (Furosemide) 40 Mg Tab 40 MG PO DAILY, #30 TAB 0 Refills Glimepiride (Glimepiride) 2 Mg Tab 2 MG PO BIDAC for Blood Sugar Management, #60 TAB 0 Refills Hydralazine (Hydralazine) 100 Mg Tab 50 MG PO TID for Blood Pressure Management, TAB 0 Refills Take with meals Insulin Aspart Inj (Novolog Inj) 1,000 Unit/10 Ml Vial 0 SQ DIRECTED for Blood Sugar Management, #10 ML 0 Refills Sliding Scale as directed. Metformin ER (Metformin ER) 750 Mg Lico 750 MG PO BID for Blood Sugar Management, TAB 0 Refills HOLD UNTIL FURTHER NOTICE Paroxetine (Paxil) 10 Mg Tab 20 MG PO DAILY, #30 TAB 0 Refills Discontinued Medications: Alprazolam (Xanax) 1 Mg Tab 1 MG PO HS PRN for ANXIETY, TAB 0 Refills Amlodipine (Amlodipine) 5 Mg Tab 5 MG PO BID for Blood Pressure Management, #30 TAB 0 Refills Gabapentin (Gabapentin) 100 Mg Cap 200 MG PO TID, #90 CAP 0 Refills Hydrocodone-Acetaminophen ([place]) 5 Mg-325 Mg Tab 1 TAB PO Q6H PRN for PAIN, #10 TAB 0 Refills Sally Mathias Aug 12, 2017 14:47
[2017-08-12] MEDS ORDERED: HYDR-3583 PO (15:19)
[2017-08-12 16:00] VITALS: BP 130/59; PULSE 88; RESP 17; TEMP 97.7; O2SAT 93
[2017-08-13 03:50] LABS: ENDOMYSIAL AB SCREEN ND (NEGATIVE); ENDOMYSIAL AB TITER ND (<1:5)
== END 2017-08-12 17:32 | disposition home health service (06) | DRG 981 ==
LOC: PHED 14:05 → PHEDA 18:55 → N03A 21:15 → N03B 07-30 11:59 → N07B 07-31 01:22
PROVIDERS: ADMIT Hospitalist; ATTEND Hospitalist
PROC: 5A09457 Assistance with Respiratory Ventilation, 24-96 Consecutive Hours, Continuous Positive Airway Pressure (ICD-10-PCS; principal; 2017-07-19)
PROC: 0L8N0ZZ Division of Right Lower Leg Tendon, Open Approach (ICD-10-PCS; 2017-07-24)
PROC: 0LQS0ZZ Repair Right Ankle Tendon, Open Approach (ICD-10-PCS; 2017-07-24)
PROC: 0LXS0ZZ Transfer Right Ankle Tendon, Open Approach (ICD-10-PCS; 2017-07-24)
PROC: 4A023N6 Measurement of Cardiac Sampling and Pressure, Right Heart, Percutaneous Approach (ICD-10-PCS; 2017-07-28)
PROC: 30233N1 Transfusion of Nonautologous Red Blood Cells into Peripheral Vein, Percutaneous Approach (ICD-10-PCS; 2017-08-10)
PROC: 0DJD8ZZ Inspection of Lower Intestinal Tract, Via Natural or Artificial Opening Endoscopic (ICD-10-PCS; 2017-08-11)
PROC: 0DB98ZX Excision of Duodenum, Via Natural or Artificial Opening Endoscopic, Diagnostic (ICD-10-PCS; 2017-08-11)
PROC: 0DB68ZX Excision of Stomach, Via Natural or Artificial Opening Endoscopic, Diagnostic (ICD-10-PCS; 2017-08-11)
PROC: 0DB58ZX Excision of Esophagus, Via Natural or Artificial Opening Endoscopic, Diagnostic (ICD-10-PCS; 2017-08-11)
DX: J96.02 Acute respiratory failure with hypercapnia (principal); G93.40 Encephalopathy, unspecified; N17.9 Acute kidney failure, unspecified; E87.2 Acidosis; I11.0 Hypertensive heart disease with heart failure; I50.32 Chronic diastolic (congestive) heart failure; E11.41 Type 2 diabetes mellitus with diabetic mononeuropathy; F11.20 Opioid dependence, uncomplicated; J44.1 Chronic obstructive pulmonary disease with (acute) exacerbation; E66.2 Morbid (severe) obesity with alveolar hypoventilation; E87.1 Hypo-osmolality and hyponatremia; S86.011A Strain of right Achilles tendon, initial encounter; J96.01 Acute respiratory failure with hypoxia; M10.9 Gout, unspecified; F32.9 Major depressive disorder, single episode, unspecified; G57.93 Unspecified mononeuropathy of bilateral lower limbs; Z95.5 Presence of coronary angioplasty implant and graft; D50.9 Iron deficiency anemia, unspecified; E78.5 Hyperlipidemia, unspecified; I25.10 Atherosclerotic heart disease of native coronary artery without angina pectoris; X58.XXXA Exposure to other specified factors, initial encounter; Y93.89 Activity, other specified; Y92.008 Other place in unspecified non-institutional (private) residence as the place of occurrence of the external cause; E87.5 Hyperkalemia; I27.81 Cor pulmonale (chronic); I27.29 Other secondary pulmonary hypertension; M19.071 Primary osteoarthritis, right ankle and foot; R15.9 Full incontinence of feces; R15.2 Fecal urgency; K64.4 Residual hemorrhoidal skin tags; K57.30 Diverticulosis of large intestine without perforation or abscess without bleeding; Z79.82 Long term (current) use of aspirin; Z86.711 Personal history of pulmonary embolism; Z91.19 Patient's noncompliance with other medical treatment and regimen; Z79.4 Long term (current) use of insulin; Z87.891 Personal history of nicotine dependence; Z87.442 Personal history of urinary calculi; Z79.02 Long term (current) use of antithrombotics/antiplatelets; R74.0 Nonspecific elevation of levels of transaminase and lactic acid dehydrogenase [LDH]; E11.65 Type 2 diabetes mellitus with hyperglycemia; M81.0 Age-related osteoporosis without current pathological fracture; M19.90 Unspecified osteoarthritis, unspecified site; F63.9 Impulse disorder, unspecified; F43.22 Adjustment disorder with anxiety; Z79.899 Other long term (current) drug therapy; F41.1 Generalized anxiety disorder; E88.09 Other disorders of plasma-protein metabolism, not elsewhere classified; K64.8 Other hemorrhoids; K20.9 Esophagitis, unspecified; N50.89 Other specified disorders of the male genital organs; J02.9 Acute pharyngitis, unspecified
CPT/HCPCS: 36430; 36600; 70450; 71045; 73564; 73610; 73721; 76937; 78582; 80048; 80053; 80076; 82024; 82088; 82140; 82533; 82550; 82570; 82607; 82728; 82746; 82784; 82805; 82810; 82947; 82948; 83036; 83516; 83540; 83550; 83615; 83735; 83880; 84100; 84132; 84244; 84300; 84439; 84443; 84484; 85025; 85027; 85044; 85610; 85730; 86631; 86632; 86738; 86850; 86900; 86901; 86920; 87040; 87070; 87077; 87186; 87205; 87449; 87641; 88305; 88312; 93005; 93306; 93451; 93971; 94002; 94003; 94060; 94150; 94640; 94664; 94667; 94668; 95819; 96374; 96375; 99152; 99153; A9540; A9567; C1713; C1769; C1893; J0131; J0330; J0456; J0610; J1200; J1630; J1644; J1650; J1815; J1885; J1940; J2175; J2250; J2270; J2370; J2405; J2920; J2930; J3010; J7030; J7050; J7512; J7613; P9016; P9047

== ENCOUNTER 2017-08-16 16:38 | Inpatient (IN) ==
[2017-08-20] MEDS ORDERED: Morphine Inj 4 MG/ML Vial ONE (23:31)
[2017-08-20] MEDS ORDERED: Enoxaparin Inj 40 MG/0.4 ML Syringe ONE (23:32)
[2017-08-21] MEDS ORDERED: Naloxone Inj 0.4 MG/ML Vial IV.PUSH PRN (00:01)
[2017-08-21] MEDS ORDERED: Bisacodyl 10 MG Supp RECTAL PRN (00:01)
[2017-08-21] MEDS ORDERED: hydrALAZINE 25 MG Tablet PO PRN (00:01)
[2017-08-21] MEDS: Morphine Inj 4 MG/ML Vial IV.PUSH PRN ×7 (00:21→21:39)
[2017-08-21] MEDS ORDERED: Morphine Inj 4 MG/ML Vial ONE (02:01)
[2017-08-21] MEDS: Gabapentin 300 MG Capsule PO SCH ×3 (05:59→21:40)
[2017-08-21 08:18] LABS: Baso % (Auto) 0.7 % (0.0-2.0); Eos # (Auto) 0.2 th/mm3 (0.0-0.4); Eos % (Auto) 4.5 % (0.0-4.0); Hematocrit 24.6 % (39.0-51.0); Hemoglobin 8.3 gm/dL (13.0-17.0); Lymph # (Auto) 0.7 th/mm3 (1.0-4.8); Lymph % (Auto) 15.3 % (9.0-44.0); Mean Corpuscular HGB Conc 33.6 % (32.0-36.0); Mean Corpuscular Hemoglobin 26.9 pg (27.0-34.0); Mean Corpuscular Volume 79.9 fL (80.0-100.0); Mean Platelet Volume 6.7 fL (7.0-11.0); Mono # (Auto) 0.7 th/mm3 (0.0-0.9); Neut # (Auto) 2.9 th/mm3 (1.8-7.7); Neut % (Auto) 63.5 % (16.0-70.0); Platelet Count 306 th/mm3 (150-450); Red Blood Count 3.08 mil/mm3 (4.50-5.90); Red Cell Distribution Width 14.7 % (11.6-17.2); White Blood Count 4.6 th/mm3 (4.0-11.0)
[2017-08-21 08:37] LABS: Calcium 8.6 mg/dL (8.5-10.1); Carbon Dioxide 28.9 meq/L (21.0-32.0); Magnesium 1.9 mg/dL (1.5-2.5)
[2017-08-21] MEDS: Senna/Docusate Sodium 8.6/50 MG Tablet PO SCH ×2 (09:16→20:47)
[2017-08-21] MEDS: hydrALAZINE 25 MG Tablet PO SCH ×3 (09:16→18:19)
[2017-08-21] MEDS: Nystatin Liq 500,000 UNIT/5 ML UDC SWISH-SWAL SCH ×4 (09:17→20:47)
[2017-08-21] MEDS: Carvedilol 12.5 MG Tablet PO SCH ×2 (09:17→20:47)
[2017-08-21] MEDS: Allopurinol 100 MG Tablet PO SCH (09:17)
[2017-08-21] MEDS: Glimepiride 2 MG Tablet PO SCH ×2 (09:29→18:19)
[2017-08-21] MEDS ORDERED: Sodium Chloride 0.65% Nasal Spray 45 ML Bottle EACH NARE PRN (13:00)
[2017-08-21] MEDS ORDERED: Dextrose 50% in Water 50 ML Vial IV.PUSH PRN (13:06)
[2017-08-21] MEDS: Insulin NovoLOG Aspart Correctional Sugar Inj SQ SCH ×3 (13:34→22:13)
--- NOTE | 2017-08-21 16:29 | P.PNIM ---
Subjective Interval history: No new complaints Pt still feeling rather edematous Vitals are stable Pt tolerating oral intake Physical Exam Vital signs: Vital Signs 08/20/17 20:00 08/21/17 00:00 08/21/17 04:00 Temperature 97.4 F L 97.8 F 97.9 F Pulse Rate 79 84 89 Respiratory Rate 18 17 16 Blood Pressure 157/73 H 157/76 H 153/86 H Pulse Oximetry 92 L 92 L 94 L 08/21/17 04:28 08/21/17 08:00 08/21/17 09:00 Temperature 98.0 F Pulse Rate 91 H 87 88 Respiratory Rate 20 Blood Pressure 159/77 H Pulse Oximetry 96 08/21/17 12:00 Temperature 97.7 F Pulse Rate 88 Respiratory Rate 20 Blood Pressure 137/78 Pulse Oximetry 92 L Intake & Output 08/20/17 08/21/17 08/21/17 18:59 06:59 18:59 Intake Total 2180 / 2180 Balance 2180 / 2180 Weight 180.1 kg 180.1 kg Intake: Oral 1680 / 1680 Other 500 / 500 Other: # Bowel Movements 1 Narrative: General: NAD, AAOx3 Chest: CTA Cardiac: Regular Abd: +BS, soft ND/NT Ext: Right leg splinted no redness noted above the bandages. Bilateral LE edema Results - Labs CBC & Chem 7: 08/25/17 06:37 08/25/17 06:37 Laboratory Results - last 24 hr 08/18/17 08/19/17 08/20/17 05:04 06:33 06:18 WBC RBC Hgb Hct MCV MCH MCHC RDW Plt Count MPV Neut % (Auto) Lymph % (Auto) [place] % (Auto) Eos % (Auto) Baso % (Auto) Neut # (Auto) Lymph # (Auto) [place] # (Auto) Eos # (Auto) Baso # (Auto) WBC Differential Differential Comment Sodium 137 135 L 132 L Potassium 4.5 4.5 4.6 Chloride 102 100 98 Carbon Dioxide 27.0 25.5 26.3 Anion Gap 8 10 8 BUN 25 H 28 H 30 H Creatinine 1.06 1.14 1.17 Estimated GFR 75 L 69 L 67 L POC Glucose Random Glucose 180 H 133 H 155 H Calcium 8.2 L 8.5 8.2 L Magnesium 08/21/17 08/21/1718 05:44 05:44 07:22 WBC 4.6 RBC 3.08 L Hgb 8.3 L Hct 24.6 L MCV 79.9 L MCH 26.9 L MCHC 33.6 RDW 14.7 Plt Count 306 MPV 6.7 L Neut % (Auto) 63.5 Lymph % (Auto) 15.3 [place] % (Auto) 16.0 H Eos % (Auto) 4.5 H Baso % (Auto) 0.7 Neut # (Auto) 2.9 Lymph # (Auto) 0.7 L [place] # (Auto) 0.7 Eos # (Auto) 0.2 Baso # (Auto) 0.0 WBC Differential . Differential Comment Auto diff final Sodium 133 L Potassium 5.0 Chloride 96 L Carbon Dioxide 28.9 Anion Gap 8 BUN 32 H Creatinine 1.30 Estimated GFR 59 L POC Glucose 148 H Random Glucose 134 H Calcium 8.6 Magnesium 1.9 08/21/17 08/21/17 11:26 16:03 WBC RBC Hgb Hct MCV MCH MCHC RDW Plt Count MPV Neut % (Auto) Lymph % (Auto) [place] % (Auto) Eos % (Auto) Baso % (Auto) Neut # (Auto) Lymph # (Auto) [place] # (Auto) Eos # (Auto) Baso # (Auto) WBC Differential Differential Comment Sodium Potassium Chloride Carbon Dioxide Anion Gap BUN Creatinine Estimated GFR POC Glucose 172 H 175 H Random Glucose Calcium Magnesium Assessment and Plan - Assessment (1) Rupture of right Achilles tendon Code(s): S86.011A - Strain of right Achilles tendon, initial encounter Status : Acute Plan: Open Achilles rupture, right - Recent admission with Achilles rupture - Pt underwent open repair of right Achilles tendon rupture with flexor hallucis longus tendon transfer and gastrocnemius recession, right lower extremity on 07/24/[address] Murillo. - Per podiatry, pt will need to be strict non-weight bearing for 6-8 weeks. - Pt was noted to have increased swelling and pain in the RLE on 08/04 - LE Doppler US (08/04) --> Is negative for DVT - Refused dc to snf and was noncompliant with weight bearing instructions. - Pt was readmitted with infection at operative site on 08/16 - He was seen by podiatry in clinic on 08/16 and sent to ED - MRI right ankle (08/16): 1. Postoperative change at the distal Achilles and calcaneus. Increased signal within the posterior calcaneus can all be consistent with postoperative change. It would be difficult to rule out osteomyelitis. 2. Fluid seen around the Achilles tendon. More superiorly in the mid lower leg, there is a larger fluid collection with peripheral enhancement. There is also a thinner fluid collection seen more superiorly in the proximal lower leg around the lateral aspect of the soleus muscle. These fluid collections could be postoperative seromas. An abscess could have a similar appearance. - Pt was given vanco and Zosyn starting on 08/16 - ID and podiatry consulted at admission. - Pt had a previous outpt culture taken on 08/11 which grew out Enterobacter cloacae - ID changed Abx to Rocephin to cover bacteria on cx taken 08/11 but surgical exploration was recommended for concern about deep infection. - Case discussed between ID, podiatry, and medicine on 08/19 and the plan is for IR drainage/cx on Tuesday to better guide computer terminal operator abx - If IR is unable to obtain a sample or drain the area a minimally invasive bedside procedure may be done - IV Lasix increased to 40mg Iv BID on 08/18 to improve extremity edema. Pts Cr/ BUN are slowly increasing so will need to monitor BMP closely - DVT prophylaxis with Lovenox (2) Obesity hypoventilation syndrome Code(s): E66.2 - Morbid (severe) obesity with alveolar hypoventilation Status : Chronic Plan: Hypercapnic respiratory insufficiency Obesity hypoventilation syndrome COPD - 2-D echocardiogram 07/23/17: - The left ventricular systolic function is mildly reduced with an estimated ejection fraction in the range of 45- 50%. - Mild infero-posterior hypokinesis - Mild concentric left ventricular hypertrophy. - The left atrial size is moderately dilated. - RHC completed (07/28) --> Class 2 Pulm HTN, PCW 23 - No Right heart strain, so sildenafil was stopped - Pt is noncompliant with CPAP - Pt still requiring 2L of supplemental O2 (3) COPD (chronic obstructive pulmonary disease) Code(s): J44.9 - Chronic obstructive pulmonary disease, unspecified Status: Chronic Plan: - See above (4) Diabetes Code(s): E11.9 - Type 2 diabetes mellitus without complications Status: Chronic Plan: - Cont OHA and SSI. - Titrate as needed (5) HTN (hypertension) Code(s): I10 - Essential (primary) hypertension Status: Chronic Plan: Hypertension - cont current BP meds, including Procardia XL 60mg Q12H, Cozaar 50mg q12H, Hydralazine 50mg TID, Coreg 25mg BID - Hydralazine PO PRN (6) Anemia Code(s): D64.9 - Anemia, unspecified Status: Chronic Plan: - Pts H/H has slowly been declining. No noted active GIB - iron deficiency anemia - Hg 8.7 (08/16) - During the last admission the pt was transfused with 2 units PRBCs (08/10) - During recent admission pt underwent evaluation with EGD/Colonoscopy (08/11/17 ) with Dr. Mccormick - int/ext hemorrhoids - sigmoid diverticulosis - esophagitis - gastric biopsies taken, results pending - Repeat labs on 08/21/17 with Hgb 8.3/Hct 24.6 (7) CAD (coronary artery disease) Code(s): I25.10 - Atherosclerotic heart disease of [place] coronary artery without angina pectoris Status: Chronic Plan: CAD (coronary artery disease) Recent history of pulmonary embolism - Patient had a PE approximately 8 months ago and was on Coumadin for until the cardiac cauterization 06/17/17 - Patient with recent cardiac catheterization with PCI 06/17/17 - After catheterization patient's Coumadin was DC'd and he was started on Aspirin and Plavix - Continue patient's Aspirin 81 mg daily, Plavix 75 mg PO daily, Atorvastatin 40 mg PO QHS and Coreg BID (8) History of pulmonary embolism Code(s): Z86.711 - Personal history of pulmonary embolism Status: Chronic Plan: - See above (9) Anxiety and depression Code(s): F41.9 - Anxiety disorder, unspecified; F32.9 - Major depressive disorder, single episode, unspecified Status: Chronic Plan: - Cont. Paxil 20mg daily - Attending Attestation Patient examined. Assessment and plan formulated with Minda Almazan PA-C. I agree with the above. (1) Rupture of right Achilles tendon Qualifiers: Encounter type: subsequent encounter Qualified Code(s): S86.011D - Strain of right Achilles tendon, subsequent encounter (4) Diabetes Qualifiers: Diabetes mellitus type: type 2
[2017-08-21] MEDS: SODIUM CHLOR 0.9% IV.SIG SCH (20:48)
[2017-08-21] MEDS: CEFTRIAXONE IV.SIG SCH (20:48)
[2017-08-21] MEDS: Enoxaparin Inj 40 MG/0.4 ML Syringe SQ SCH (22:15)
[2017-08-22] MEDS: Morphine Inj 4 MG/ML Vial IV.PUSH PRN ×8 (00:53→22:56)
[2017-08-22] MEDS: Gabapentin 300 MG Capsule PO SCH ×3 (06:29→22:54)
[2017-08-22 06:47] LABS: Baso # (Auto) 0.1 th/mm3 (0.0-0.2); Eos # (Auto) 0.2 th/mm3 (0.0-0.4); Eos % (Auto) 3.5 % (0.0-4.0); Hematocrit 26.7 % (39.0-51.0); Hemoglobin 8.8 gm/dL (13.0-17.0); Lymph % (Auto) 15.6 % (9.0-44.0); Mean Corpuscular Hemoglobin 26.1 pg (27.0-34.0); Mean Corpuscular Volume 79.1 fL (80.0-100.0); Mean Platelet Volume 6.8 fL (7.0-11.0); Mono % (Auto) 17.1 % (0.0-8.0); Neut # (Auto) 3.8 th/mm3 (1.8-7.7); Neut % (Auto) 62.8 % (16.0-70.0); Platelet Count 356 th/mm3 (150-450); Red Blood Count 3.37 mil/mm3 (4.50-5.90); Red Cell Distribution Width 15.3 % (11.6-17.2); White Blood Count 6.1 th/mm3 (4.0-11.0)
[2017-08-22 07:38] LABS: Calcium 8.6 mg/dL (8.5-10.1); Carbon Dioxide 24.2 meq/L (21.0-32.0); Magnesium 1.9 mg/dL (1.5-2.5); Potassium 4.6 meq/L (3.5-5.1)
[2017-08-22] MEDS: Carvedilol 12.5 MG Tablet PO SCH ×2 (09:14→22:54)
[2017-08-22] MEDS: hydrALAZINE 25 MG Tablet PO SCH ×3 (09:14→18:07)
[2017-08-22] MEDS: Glimepiride 2 MG Tablet PO SCH ×2 (09:14→18:07)
[2017-08-22] MEDS: Senna/Docusate Sodium 8.6/50 MG Tablet PO SCH ×2 (09:14→22:53)
[2017-08-22] MEDS: Allopurinol 100 MG Tablet PO SCH (09:14)
[2017-08-22] MEDS: Nystatin Liq 500,000 UNIT/5 ML UDC SWISH-SWAL SCH ×4 (09:15→22:54)
[2017-08-22] MEDS: Insulin NovoLOG Aspart Correctional Sugar Inj SQ SCH ×4 (09:15→22:59)
[2017-08-22] MEDS ORDERED: Lidocaine PF 1% Inj 30 ML Vial ONE (12:07)
--- NOTE | 2017-08-22 15:19 | US ---
EXAM DATE: 08/22/2017 12:05 PM EDT AGE/SEX: 47 years / Male INDICATIONS: Abscess. CLINICAL DATA: This is the patient's initial encounter. Patient reports that signs and symptoms have been present for 1 week and indicates a pain score of 2/10. MEDICAL/SURGICAL HISTORY: Hypercholesterolemia. Chronic obstructive pulmonary disease. Hypert ension. Diabetes. Bilateral leg neuropathy. Anticoagulant therapy. Hyperlipidemia. Asthma. Renal frankie lure. Nephrolithiasis. Gout. Osteoporosis. MRSA. Coronary artery disease. . Tonsillectomy. Anal fiss ure surgery. Left thigh abcess excision. Achilles tendon rupture repair. COMPARISON: No prior exams available for comparison. FLUID: Total volume of 0.5 cc of clear, red fluid was removed. Fluid was sent to lab for ordered studies. Post procedure scanning reveals no hematoma or other complication. . . TECHNIQUE: Ultrasound guidance for needle aspiration. Aspiration. The risks, benefits and alternatives to the procedure were explained and verbal and written consent w as obtained. The site was prepped in sterile fashion. Full sterile technique was used, including ca p, mask, sterile gloves and gown and a large sterile sheet. Hand hygiene and 2% chlorhexidine and/or betadine/alcohol prep was utilized per protocol for cutaneous antisepsis. The skin and subcutaneous tissues were infiltrated with local anesthetic solution. Sterile gel and sterile probe cover were u tilized for ultrasound guidance. FINDINGS: With the patient on the ultrasound table, ultrasound imaging was used to select the most appropriate approach for aspiration. A dermatotomy was made with an 11 blade scalpel. A catheter was introduced into the cavity and fluid was collected. CONCLUSION: Very minimal serosanguineous fluid approximating 0.5 cc. Electronically signed by: Zaire Wakefiled MD 08/22/2017 3:18 PM EDT
--- NOTE | 2017-08-22 17:22 | P.PNIM ---
Subjective Interval history: No new complaints. Pt's pain is controlled. Physical Exam Vital signs: Vital Signs 08/21/17 20:00 08/22/17 00:00 08/22/17 04:00 Temperature 97.8 F 97.9 F 97.2 F L Pulse Rate 87 91 H 85 Respiratory Rate 22 22 22 Blood Pressure 165/82 H 164/85 H 151/83 H Pulse Oximetry 97 95 95 08/22/17 04:03 08/22/17 04:33 08/22/17 08:00 Temperature 98.6 F Pulse Rate 80 85 Respiratory Rate 18 18 Blood Pressure 146/70 H Pulse Oximetry 96 08/22/17 11:24 08/22/17 11:58 08/22/17 12:00 Temperature 99.0 F 98.4 F 98.4 F Pulse Rate 88 83 91 H Respiratory Rate 16 16 18 Blood Pressure 147/85 H 119/70 155/72 H Pulse Oximetry 97 95 96 Intake & Output 08/21/17 08/22/17 08/22/17 18:59 06:59 18:59 Intake Total 720 / 720 800 / 800 Output Total 1500 / 1500 1999 Balance -780 / -780 -1200 / -1200 Intake: Oral 720 / 720 800 / 800 Output: Urine 1500 / 1500 1999 Other: # Bowel Movements 1 Narrative: GENERAL: This is a well-nourished, well-developed patient, in no apparent distress. CARDIOVASCULAR: Regular rate and rhythm without murmurs, gallops, or rubs. RESPIRATORY: Clear to auscultation. Breath sounds equal bilaterally. No wheezes , rales, or rhonchi. GASTROINTESTINAL: Abdomen soft, non-tender, nondistended. Normal active bowel sounds MUSCULOSKELETAL: Extremities without clubbing, cyanosis, or edema. NEURO: Alert & Oriented x4 to person, place, time, situation. Moves all ext x4 ext: RLE is bandaged, c/d/i Results - Labs CBC & Chem 7: 08/27/17 05:58 08/27/17 05:58 Laboratory Results - last 24 hr 08/21/17 08/22/17 08/22/17 20:45 05:30 05:50 WBC 6.1 RBC 3.37 L Hgb 8.8 L Hct 26.7 L MCV 79.1 L MCH 26.1 L MCHC 33.0 RDW 15.3 Plt Count 356 MPV 6.8 L Neut % (Auto) 62.8 Lymph % (Auto) 15.6 [place] % (Auto) 17.1 H Eos % (Auto) 3.5 Baso % (Auto) 1.0 Neut # (Auto) 3.8 Lymph # (Auto) 1.0 [place] # (Auto) 1.0 H Eos # (Auto) 0.2 Baso # (Auto) 0.1 WBC Differential . Differential Comment Auto diff final Sodium 130 L Potassium 4.6 Chloride 94 L Carbon Dioxide 24.2 Anion Gap 12 BUN 29 H Creatinine 1.17 Estimated GFR 67 L POC Glucose 227 H Random Glucose 108 H Calcium 8.6 Magnesium 1.9 08/22/17 08/22/17 07:48 13:12 WBC RBC Hgb Hct MCV MCH MCHC RDW Plt Count MPV Neut % (Auto) Lymph % (Auto) [place] % (Auto) Eos % (Auto) Baso % (Auto) Neut # (Auto) Lymph # (Auto) [place] # (Auto) Eos # (Auto) Baso # (Auto) WBC Differential Differential Comment Sodium Potassium Chloride Carbon Dioxide Anion Gap BUN Creatinine Estimated GFR POC Glucose 122 H 203 H Random Glucose Calcium Magnesium - Imaging Impressions Needle Aspiration US 08/22/17 00:00 CONCLUSION: Very minimal serosanguineous fluid approximating 0.5 cc. Assessment and Plan - Assessment (1) Rupture of right Achilles tendon Code(s): S86.011A - Strain of right Achilles tendon, initial encounter Status : Acute Plan: Open Achilles rupture, right - Recent admission with Achilles rupture - Pt underwent open repair of right Achilles tendon rupture with flexor hallucis longus tendon transfer and gastrocnemius recession, right lower extremity on 07/24/[address] Murillo. - Per podiatry, pt will need to be strict non-weight bearing for 6-8 weeks. - Pt was noted to have increased swelling and pain in the RLE on 08/04 - LE Doppler US (08/04) --> Is negative for DVT - Refused dc to snf and was noncompliant with weight bearing instructions. - Pt was readmitted with infection at operative site on 08/16 - He was seen by podiatry in clinic on 08/16 and sent to ED - MRI right ankle (08/16): 1. Postoperative change at the distal Achilles and calcaneus. Increased signal within the posterior calcaneus can all be consistent with postoperative change. It would be difficult to rule out osteomyelitis. 2. Fluid seen around the Achilles tendon. More superiorly in the mid lower leg, there is a larger fluid collection with peripheral enhancement. There is also a thinner fluid collection seen more superiorly in the proximal lower leg around the lateral aspect of the soleus muscle. These fluid collections could be postoperative seromas. An abscess could have a similar appearance. - Pt was given vanco and Zosyn starting on 08/16 - ID and podiatry consulted at admission. - Pt had a previous outpt culture taken on 08/11 which grew out Enterobacter cloacae - ID changed Abx to Rocephin to cover bacteria on cx taken 08/11 but surgical exploration was recommended for concern about deep infection. - Case discussed between ID, podiatry, and medicine on 08/19 and the plan is for IR drainage/cx on Tuesday to better guide fpc abx - If IR is unable to obtain a sample or drain the area a minimally invasive bedside procedure may be done - IV Lasix increased to 40mg Iv BID on 08/18 to improve extremity edema. - pt underwent CT guided drainage at [facility] with Radiology (08/22). Follow fluid cultures. - DVT prophylaxis with Lovenox (2) Obesity hypoventilation syndrome Code(s): E66.2 - Morbid (severe) obesity with alveolar hypoventilation Status : Chronic Plan: Hypercapnic respiratory insufficiency Obesity hypoventilation syndrome COPD - 2-D echocardiogram 07/23/17: - The left ventricular systolic function is mildly reduced with an estimated ejection fraction in the range of 45- 50%. - Mild infero-posterior hypokinesis - Mild concentric left ventricular hypertrophy. - The left atrial size is moderately dilated. - RHC completed (07/28) --> Class 2 Pulm HTN, PCW 23 - No Right heart strain, so sildenafil was stopped - Pt is noncompliant with CPAP - Pt still requiring 2L of supplemental O2 (3) COPD (chronic obstructive pulmonary disease) Code(s): J44.9 - Chronic obstructive pulmonary disease, unspecified Status: Chronic Plan: - See above (4) Diabetes Code(s): E11.9 - Type 2 diabetes mellitus without complications Status: Chronic Plan: - Cont OHA and SSI. - Titrate as needed (5) HTN (hypertension) Code(s): I10 - Essential (primary) hypertension Status: Chronic Plan: Hypertension - cont current BP meds, including Procardia XL 60mg Q12H, Cozaar 50mg q12H, Hydralazine 50mg TID, Coreg 25mg BID - Hydralazine PO PRN (6) Anemia Code(s): D64.9 - Anemia, unspecified Status: Chronic Plan: - Pts H/H has slowly been declining. No noted active GIB - iron deficiency anemia - Hg 8.7 (08/16) - During the last admission the pt was transfused with 2 units PRBCs (08/10) - During recent admission pt underwent evaluation with EGD/Colonoscopy (08/11/17 ) with Dr. Mccormick - int/ext hemorrhoids - sigmoid diverticulosis - esophagitis - gastric biopsies taken, results pending - Repeat labs on 08/21/17 with Hgb 8.3/Hct 24.6 (7) CAD (coronary artery disease) Code(s): I25.10 - Atherosclerotic heart disease of [place] coronary artery without angina pectoris Status: Chronic Plan: CAD (coronary artery disease) Recent history of pulmonary embolism - Patient had a PE approximately 8 months ago and was on Coumadin for until the cardiac cauterization 06/17/17 - Patient with recent cardiac catheterization with PCI 06/17/17 - After catheterization patient's Coumadin was DC'd and he was started on Aspirin and Plavix - Continue patient's Aspirin 81 mg daily, Plavix 75 mg PO daily, Atorvastatin 40 mg PO QHS and Coreg BID (8) History of pulmonary embolism Code(s): Z86.711 - Personal history of pulmonary embolism Status: Chronic Plan: - See above (9) Anxiety and depression Code(s): F41.9 - Anxiety disorder, unspecified; F32.9 - Major depressive disorder, single episode, unspecified Status: Chronic Plan: - Cont. Paxil 20mg daily (1) Rupture of right Achilles tendon Qualifiers: Encounter type: subsequent encounter Qualified Code(s): S86.011D - Strain of right Achilles tendon, subsequent encounter (4) Diabetes Qualifiers: Diabetes mellitus type: type 2
[2017-08-22] MEDS: Enoxaparin Inj 40 MG/0.4 ML Syringe SQ SCH (22:57)
[2017-08-22] MEDS: CEFTRIAXONE IV.SIG SCH (23:01)
[2017-08-22] MEDS: SODIUM CHLOR 0.9% IV.SIG SCH (23:01)
[2017-08-23] MEDS: Morphine Inj 4 MG/ML Vial IV.PUSH PRN ×7 (02:29→22:46)
[2017-08-23] MEDS: Gabapentin 300 MG Capsule PO SCH ×3 (05:42→21:49)
[2017-08-23] MEDS: Carvedilol 12.5 MG Tablet PO SCH ×2 (08:09→21:49)
[2017-08-23] MEDS: Allopurinol 100 MG Tablet PO SCH (08:10)
[2017-08-23] MEDS: Senna/Docusate Sodium 8.6/50 MG Tablet PO SCH ×2 (08:10→21:49)
[2017-08-23] MEDS: hydrALAZINE 25 MG Tablet PO SCH ×3 (08:10→18:14)
[2017-08-23] MEDS: Glimepiride 2 MG Tablet PO SCH ×2 (08:10→16:20)
[2017-08-23] MEDS: Insulin NovoLOG Aspart Correctional Sugar Inj SQ SCH ×5 (08:11→22:00)
[2017-08-23] MEDS: Nystatin Liq 500,000 UNIT/5 ML UDC SWISH-SWAL SCH ×4 (08:15→21:49)
--- NOTE | 2017-08-23 16:24 | P.PNID ---
Subjective Remarks: Mr. Wolf is a 47-year-old male with past medical history significant for diabetes mellitus type 2. Patient reports in July 2017 he was admitted for surgery for the Achilles tendon rupture he had earlier in that month. Patient reports that the original fall was from a ladder while he was trying to show a contractor where to repair the roof of his home. He followed up with Dr. Lizama on and when she removed the splint there was erythema and drainage noted at the incision site. Patient was admitted from Dr. Murillo's office. Significant history from past and more recently his admission in July he was in ICU and reportedly on vent for hypoxic resp failure. His PMHx is also significant for Morbid obesity and asthma/COPD PE on plavix, h/o left heart cath with stent, Sleep apnea. It appears during that hospitalization he had a culture taken by as there was some serous discharge from the incision site. Unsure if he was on antibiotics prior to this admission. ID consulted for evaluation and Mment of suspicion of left achilles tendon infection (tendinitis) at surgical site. Given the patient had a fall in the soil outside his home some degree of contamination with soil organisms is expected and E.cloacae which patient grew from culture would make sense as a causative organism for deeper infection. Overnight events reviewed. No fevers No rash No diarrhea Sitting in chair. Antibiotics: Ceftriaxone IV Lines: Lines ok Past Medical History: Respiratory failure, COPD, coronary artery disease, hypertension, gout, diabetes with neuropathy, chronic kidney disease, depression morbid obesity. Past Surgical History Right Achilles tendon Left inner thigh abscess I and D. Allergies/Adverse Reactions: Allergies codeine Allergy (Severe, Verified 08/16/17 19:14) Itching quetiapine Allergy (Intermediate, Verified 08/16/17 19:14) Hallucinations tramadol Allergy (Unknown, Verified 08/20/17 10:36) UNKNOWN clonidine Adverse Reaction (Severe, Verified 08/20/17 10:36) ARNDT, dry mouth, "felt drunk" lisinopril Adverse Reaction (Unknown, Verified 08/16/17 19:14) abnormal labs K level Objective Vital Signs 08/22/17 20:00 08/22/17 20:02 08/22/17 23:55 Temperature 97.9 F Pulse Rate 90 90 94 H Respiratory Rate 19 Blood Pressure 155/76 H Pulse Oximetry 94 L 08/23/17 00:00 08/23/17 04:00 08/23/17 04:03 Temperature 97.4 F L 98.8 F Pulse Rate 92 H 94 H 99 H Respiratory Rate 17 18 Blood Pressure 142/70 H 160/78 H Pulse Oximetry 95 95 08/23/17 04:21 08/23/17 07:10 08/23/17 08:00 Temperature 98.0 F Pulse Rate 91 H Respiratory Rate 19 19 18 Blood Pressure 161/80 H Pulse Oximetry 98 08/23/17 12:00 Temperature 97.3 F L Pulse Rate 81 Respiratory Rate 16 Blood Pressure 143/71 H Pulse Oximetry 95 Intake & Output 08/22/17 08/23/17 08/23/17 18:59 06:59 18:59 Intake Total 940 / 940 Output Total 2200 / 2200 Balance -1260 / -1260 Weight 181.4 kg Intake: IV 100 / 100 Rocephin Inj 2,000 MG In NS Inj 100 / 100 100 ML @ 200 mls/hr IV.SIG Q24H [facility] Rx#:[id number] Oral 840 / 840 Output: Urine 2200 / 2200 08/22/17 12:03 Fluid - Other Gram Stain - Final 08/22/17 12:03 Fluid - Other Body Fluid Culture - Preliminary No growth in 24 hours Lab - Hematology Results 08/22/17 05:30 WBC 6.1 RBC 3.37 L Hgb 8.8 L Hct 26.7 L MCV 79.1 L MCH 26.1 L MCHC 33.0 RDW 15.3 Plt Count 356 MPV 6.8 L Neut % (Auto) 62.8 Lymph % (Auto) 15.6 [place] % (Auto) 17.1 H Eos % (Auto) 3.5 Baso % (Auto) 1.0 Neut # (Auto) 3.8 Lymph # (Auto) 1.0 [place] # (Auto) 1.0 H Eos # (Auto) 0.2 Baso # (Auto) 0.1 WBC Differential . Differential Comment Auto diff final Lab - Chemistry Results 08/21/17 08/22/17 08/22/17 20:45 05:50 07:48 Sodium 130 L Potassium 4.6 Chloride 94 L Carbon Dioxide 24.2 Anion Gap 12 BUN 29 H Creatinine 1.17 Estimated GFR 67 L POC Glucose 227 H 122 H Random Glucose 108 H Calcium 8.6 Magnesium 1.9 08/22/17 08/22/17 08/22/17 13:12 17:45 20:48 Sodium Potassium Chloride Carbon Dioxide Anion Gap BUN Creatinine Estimated GFR POC Glucose 203 H 183 H 202 H Random Glucose Calcium Magnesium 08/23/17 08/23/17 08:00 12:18 Sodium Potassium Chloride Carbon Dioxide Anion Gap BUN Creatinine Estimated GFR POC Glucose 121 H 185 H Random Glucose Calcium Magnesium Imaging: ITS Impressions Needle Aspiration US 08/22/17 00:00 CONCLUSION: Very minimal serosanguineous fluid approximating 0.5 cc. Physical Exam: GENERAL: This is a well-nourished, well-developed patient, in no apparent distress. SKIN: No rashes, ecchymoses or lesions. Cool and dry. HEAD: Atraumatic. Normocephalic. No temporal or scalp tenderness. EYES: Pupils equal round and reactive. Extraocular motions intact. No scleral icterus. No injection or drainage. ENT: Nose without bleeding, purulent drainage or septal hematoma. Throat without erythema, tonsillar hypertrophy or exudate. Uvula midline. Airway patent. NECK: Trachea midline. No JVD or lymphadenopathy. Supple, nontender, no meningeal signs. CARDIOVASCULAR: Regular rate and rhythm without murmurs, gallops, or rubs. RESPIRATORY: Clear to auscultation. Breath sounds equal bilaterally. No wheezes , rales, or rhonchi. GASTROINTESTINAL: Abdomen soft, non-tender, nondistended. No hepato-splenomegaly , or palpable masses. No guarding. MUSCULOSKELETAL: Right leg with linear surgical scar with 1 area of opening noted with serous to purulent appearing discharge with surrounding erythema. Erythema reduced but swelling persists and fluid still oozing from opening. NEUROLOGICAL: Awake and alert. non focal. psych cooperative IV line sites ok Assessment and Plan - Plan Right achilles tendon infection Enterobacter cloacae last culture from surgical site. 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 DM Sleep apnea Recs Continue Ceftriaxone IV (culture directed : E.cloacae in culture from 08/11/2017) Follow cultures from CT guided drainage. Follow clinically examined pt with : still with oozing from an area of elevation. She will take patient to OR on 08/24 or 08/25/2017. dw .
--- NOTE | 2017-08-23 17:01 | P.PNPOD ---
Subjective Interval history: Patient seen bedside with infectious disease present. Patient states his pain is improved. Physical Exam Vital signs: Vital Signs 08/22/17 20:00 08/22/17 20:02 08/22/17 23:55 Temperature 97.9 F Pulse Rate 90 90 94 H Respiratory Rate 19 Blood Pressure 155/76 H Pulse Oximetry 94 L 08/23/17 00:00 08/23/17 04:00 08/23/17 04:03 Temperature 97.4 F L 98.8 F Pulse Rate 92 H 94 H 99 H Respiratory Rate 17 18 Blood Pressure 142/70 H 160/78 H Pulse Oximetry 95 95 08/23/17 04:21 08/23/17 07:10 08/23/17 08:00 Temperature 98.0 F Pulse Rate 91 H Respiratory Rate 19 19 18 Blood Pressure 161/80 H Pulse Oximetry 98 08/23/17 12:00 Temperature 97.3 F L Pulse Rate 81 Respiratory Rate 16 Blood Pressure 143/71 H Pulse Oximetry 95 Intake & Output 08/22/17 08/23/17 08/23/17 18:59 06:59 18:59 Intake Total 940 / 940 Output Total 2200 / 2200 Balance -1260 / -1260 Weight 181.4 kg Intake: IV 100 / 100 Rocephin Inj 2,000 MG In NS Inj 100 / 100 100 ML @ 200 mls/hr IV.SIG Q24H [facility] Rx#:[id number] Oral 840 / 840 Output: Urine 2200 / 2200 Narrative: Lower extremity physical exam: Vascular: Dorsalis pedis 2/4, posterior tibial 2/4. Capillary refill time within normal limits to digits 5 bilateral foot. Edema present right lower extremity. Neuro: Gross sensation intact to bilateral lower extremity. Pinpoint sensation intact. No hyperalgesia noted to bilateral lower extremity Dermatology: Normal temperature and turgor to bilateral lower extremity. Resolving erythema noted to right posterior Achilles. Serous drainage noted from right distal Achilles since incision with approximately 2 cc of drainage upon compression. No malodor fluctuance or crepitance noted. Incision to posterior ankle and leg well-healed distally and proximally with sutures intact and skin well coapted. Musculoskeletal: Tender to palpation to right posterior ankle and leg at Achilles tendon. Medications and Allergies Active Medications: Active Medications Al Hydroxide/Mg Hydroxide (Milk Of Magnesia Liq) 30 ml PO Q12H PRN PRN Reason: MILD CONSTIPATION Allopurinol (Zyloprim) 100 mg PO DAILY [facility] Last Admin: 08/23/17 08:10 Dose: 100 mg Aspirin (Ecotrin) 81 mg PO DAILY [facility] Last Admin: 08/23/17 08:10 Dose: 81 mg Atorvastatin Calcium (Lipitor) 40 mg PO HS [facility] Last Admin: 08/22/17 22:53 Dose: 40 mg Bisacodyl (Dulcolax Supp) 10 mg RECTAL DAILY PRN PRN Reason: SEVERE CONSTIPATION Carvedilol (Coreg) 25 mg PO BID [facility] Last Admin: 08/23/17 08:09 Dose: 25 mg Clopidogrel Bisulfate (Plavix) 75 mg PO DAILY [facility] Last Admin: 08/23/17 08:15 Dose: 75 mg Dextrose (D50w Vial) 50 ml IV.PUSH UNSCH PRN PRN Reason: PER HYPOGLYCEMIA PROTOCOL Enoxaparin Sodium (Lovenox Inj) 40 mg SQ Q24H [facility] Last Admin: 08/22/17 22:57 Dose: 40 mg Furosemide (Lasix Inj) 40 mg IV.PUSH BID@0900,1800 [facility] Last Admin: 08/23/17 08:11 Dose: 40 mg Gabapentin (Neurontin) 300 mg PO Q8HR [facility] Last Admin: 08/23/17 16:21 Dose: 300 mg Glimepiride (Amaryl) 2 mg PO BIDAC [facility] Last Admin: 08/23/17 16:20 Dose: 2 mg Glucagon (Glucagon Inj) 1 mg OTHER PRN PRN PRN Reason: for Hypoglycemia Protocol Hydralazine HCl (Apresoline) 50 mg PO TID [facility] Last Admin: 08/23/17 12:18 Dose: 50 mg Hydralazine HCl (Apresoline) 25 mg PO Q8HR PRN PRN Reason: SBP >170 Ceftriaxone Sodium 2,000 mg/ (Sodium Chloride) 100 mls @ 200 mls/hr IV.SIG Q24H [facility] Last Infusion: 08/23/17 00:00 Dose: Infused Insulin Aspart (Novolog Insulin Suppl Scale Inj) 0 unit SQ ACHS [facility]; Protocol Last Admin: 08/23/17 12:57 Dose: 100 unit Lactulose (Lactulose Liq) 30 ml PO DAILY PRN PRN Reason: SEVERE CONSTIPATION Losartan Potassium (Cozaar) 50 mg PO Q12HR [facility] Last Admin: 08/23/17 08:11 Dose: 50 mg Morphine Sulfate (Morphine Inj) 4 mg IV.PUSH Q3H PRN PRN Reason: SEE LABEL COMMENTS Last Admin: 08/23/17 16:20 Dose: 4 mg Naloxone HCl (Narcan Inj) 0.4 mg IV.PUSH UNSCH PRN PRN Reason: SEE LABEL COMMENTS Nifedipine (Procardia Xl) 60 mg PO Q12HR [facility] Last Admin: 08/23/17 08:10 Dose: 60 mg Nystatin (Mycostatin Liq) 5 ml SWISH-SWAL QID [facility] Last Admin: 08/23/17 12:19 Dose: 5 ml Pantoprazole Sodium (Protonix) 40 mg PO DAILY [facility] Last Admin: 08/23/17 08:10 Dose: 40 mg Paroxetine HCl (Paxil) 20 mg PO DAILY [facility] Last Admin: 08/23/17 08:10 Dose: 20 mg Senna/Docusate Sodium ([place]-Colace) 1 tab PO BID [facility] Last Admin: 08/23/17 08:10 Dose: 1 tab Sennosides (Senokot) 17.2 mg PO Q12H PRN PRN Reason: MODERATE CONSTIPATION Sodium Chloride ([place] Nasal [place]) 1 spray EACH NARE Q6H PRN PRN Reason: FOR DRYNESS Last Admin: 08/22/17 13:18 Dose: 1 spray Sodium Chloride (Ns Flush) 2 ml IV.FLUSH UNSCH PRN PRN Reason: FLUSH AFTER USING IV ACCESS Sodium Chloride (Ns Flush) 2 ml IV.FLUSH BID [facility] Last Admin: 08/23/17 08:14 Dose: 2 ml Allergies Allergy/AdvReac Type Severity Reaction Status Date / Time codeine Allergy Severe Itching Verified 08/16/17 19:14 quetiapine Allergy Intermediate Hallucinati Verified 08/16/17 19:14 ons tramadol Allergy Unknown UNKNOWN Verified 08/20/17 10:36 clonidine AdvReac Severe ARNDT, dry Verified 08/20/17 10:36 mouth, "felt drunk" lisinopril AdvReac Unknown abnormal Verified 08/16/17 19:14 labs K level Home Medications Medication Instructions Recorded Confirmed Type allopurinol 100 mg PO DAILY 08/20/17 08/20/17 History aspirin 81 mg PO DAILY 08/20/17 08/20/17 History atorvastatin 40 mg PO HS 08/20/17 08/20/17 History carvedilol 25 mg PO BID 08/20/17 08/20/17 History clindamycin HCl 300 mg PO Q6H 08/20/17 08/20/17 History clopidogrel 75 mg PO DAILY 08/20/17 08/20/17 History furosemide 40 mg PO DAILY 08/20/17 08/20/17 History gabapentin 300 mg PO Q8H 08/20/17 08/20/17 History glimepiride 2 mg PO BIDAC 08/20/17 08/20/17 History hydralazine 50 mg PO TID 08/20/17 08/20/17 History hydrocodone-acetaminophen 1 tab PO Q4H PRN 08/20/17 08/20/17 History insulin aspart U-100 [Novolog 1 sliding scale dose SUB-Q 08/20/17 08/20/17 History U-100 Insulin aspart] DIRECTED losartan 50 mg PO Q12H 08/20/17 08/20/17 History metformin 750 mg PO BID 08/20/17 08/20/17 History nifedipine 60 mg PO Q12H 08/20/17 08/20/17 History nystatin 5 ml PO QID 08/20/17 08/20/17 History pantoprazole 40 mg PO DAILY 08/20/17 08/20/17 History paroxetine HCl 20 mg PO DAILY 08/20/17 08/20/17 History Results - Labs CBC & Chem 7: 08/22/17 05:30 08/22/17 05:50 Laboratory Results - last 24 hr 08/22/17 08/22/17 08/23/17 17:45 20:48 08:00 POC Glucose 183 H 202 H 121 H 08/23/17 12:18 POC Glucose 185 H Microbiology 08/22/17 12:03 Fluid - Other Gram Stain - Final 08/22/17 12:03 Fluid - Other Body Fluid Culture - Preliminary No growth in 24 hours Assessment and Plan - Plan 47-year-old male status post Achilles tendon repair with gastroc lengthening to right lower extremity with distal draining sinus Patient examined evaluated with all questions answered Cultures are no growth to date Discussed with infectious disease Secondary to serous drainage noted and surrounding infection will perform right posterior Achilles incision and drainage Patient to OR tomorrow Patient to remain n.p.o. after midnight Consent to be obtained and placed in chart Consent to Read right Achilles tendon incision and drainage with any other indicated procedures Discussed Condition With: Dr. Morris with infectious disease
--- NOTE | 2017-08-23 17:35 | P.PNIM ---
Subjective Interval history: Pt still with drainage and erythema around the incision site ID and Podiatry evaluated the wound and pt is planned for surgical clean out tomorrow with Podiatry BP is fluctuating, likely related to pain Afebrile Physical Exam Vital signs: Vital Signs 08/22/17 20:00 08/22/17 20:02 08/22/17 23:55 Temperature 97.9 F Pulse Rate 90 90 94 H Respiratory Rate 19 Blood Pressure 155/76 H Pulse Oximetry 94 L 08/23/17 00:00 08/23/17 04:00 08/23/17 04:03 Temperature 97.4 F L 98.8 F Pulse Rate 92 H 94 H 99 H Respiratory Rate 17 18 Blood Pressure 142/70 H 160/78 H Pulse Oximetry 95 95 08/23/17 04:21 08/23/17 07:10 08/23/17 08:00 Temperature 98.0 F Pulse Rate 91 H Respiratory Rate 19 19 18 Blood Pressure 161/80 H Pulse Oximetry 98 08/23/17 12:00 08/23/17 17:01 Temperature 97.3 F L 98.4 F Pulse Rate 81 80 Respiratory Rate 16 17 Blood Pressure 143/71 H 162/78 H Pulse Oximetry 95 92 L Intake & Output 08/22/17 08/23/17 08/23/17 18:59 06:59 18:59 Intake Total 940 / 940 Output Total 2200 / 2200 Balance -1260 / -1260 Weight 181.4 kg Intake: IV 100 / 100 Rocephin Inj 2,000 MG In NS Inj 100 / 100 100 ML @ 200 mls/hr IV.SIG Q24H CATIE Rx#:[id number] Oral 840 / 840 Output: Urine 2200 / 2200 Narrative: General: NAD, AAOx3 Chest: CTA Cardiac: Regular Abd: +BS, soft ND/NT Ext: Right leg splinted no redness noted above the bandages. Bilateral LE edema Results - Labs CBC & Chem 7: 08/27/17 05:58 08/27/17 05:58 Laboratory Results - last 24 hr 08/22/17 08/22/17 08/23/17 17:45 20:48 08:00 POC Glucose 183 H 202 H 121 H 08/23/17 08/23/17 12:18 17:05 POC Glucose 185 H 185 H Microbiology 08/22/17 12:03 Fluid - Other Gram Stain - Final 08/22/17 12:03 Fluid - Other Body Fluid Culture - Preliminary No growth in 24 hours - Imaging Impressions Needle Aspiration US 08/22/17 00:00 CONCLUSION: Very minimal serosanguineous fluid approximating 0.5 cc. Assessment and Plan - Assessment (1) Rupture of right Achilles tendon Code(s): S86.011A - Strain of right Achilles tendon, initial encounter Status : Acute Plan: Open Achilles rupture, right - Recent admission with Achilles rupture - Pt underwent open repair of right Achilles tendon rupture with flexor hallucis longus tendon transfer and gastrocnemius recession, right lower extremity on 07/24/[address] Murillo. - Per podiatry, pt will need to be strict non-weight bearing for 6-8 weeks. - Pt was noted to have increased swelling and pain in the RLE on 08/04 - LE Doppler US (08/04) --> Is negative for DVT - Refused dc to snf and was noncompliant with weight bearing instructions. - Pt was readmitted with infection at operative site on 08/16 - He was seen by podiatry in clinic on 08/16 and sent to ED - MRI right ankle (08/16): 1. Postoperative change at the distal Achilles and calcaneus. Increased signal within the posterior calcaneus can all be consistent with postoperative change. It would be difficult to rule out osteomyelitis. 2. Fluid seen around the Achilles tendon. More superiorly in the mid lower leg, there is a larger fluid collection with peripheral enhancement. There is also a thinner fluid collection seen more superiorly in the proximal lower leg around the lateral aspect of the soleus muscle. These fluid collections could be postoperative seromas. An abscess could have a similar appearance. - Pt was given vanco and Zosyn starting on 08/16 - ID and podiatry consulted at admission. - Pt had a previous outpt culture taken on 08/11 which grew out Enterobacter cloacae - ID changed Abx to Rocephin to cover bacteria on cx taken 08/11 but surgical exploration was recommended for concern about deep infection. - Case discussed between ID, podiatry, and medicine on 08/19 and the plan is for IR drainage/cx on Tuesday to better guide halfway abx - If IR is unable to obtain a sample or drain the area a minimally invasive bedside procedure may be done - IV Lasix increased to 40mg IV BID on 08/18 to improve extremity edema. - Pt underwent CT guided drainage at E with Radiology (08/22). Fluid cultures with NGTD. - The pts wound was examined by podiatry and ID today and secondary to continued serous drainage and surrounding infection will perform right posterior Achilles incision and drainage - Patient planned for OR on 08/24. Hold Lovenox injection tonight and will need to be resumed post-operative - DVT prophylaxis with Lovenox (2) Obesity hypoventilation syndrome Code(s): E66.2 - Morbid (severe) obesity with alveolar hypoventilation Status : Chronic Plan: Hypercapnic respiratory insufficiency Obesity hypoventilation syndrome COPD - 2-D echocardiogram 07/23/17: - The left ventricular systolic function is mildly reduced with an estimated ejection fraction in the range of 45- 50%. - Mild infero-posterior hypokinesis - Mild concentric left ventricular hypertrophy. - The left atrial size is moderately dilated. - RHC completed (07/28) --> Class 2 Pulm HTN, PCW 23 - No Right heart strain, so sildenafil was stopped - Pt is noncompliant with CPAP - Pt still requiring 2L of supplemental O2 (3) COPD (chronic obstructive pulmonary disease) Code(s): J44.9 - Chronic obstructive pulmonary disease, unspecified Status: Chronic Plan: - See above (4) Diabetes Code(s): E11.9 - Type 2 diabetes mellitus without complications Status: Chronic Plan: - Cont OHA and SSI. - Titrate as needed (5) HTN (hypertension) Code(s): I10 - Essential (primary) hypertension Status: Chronic Plan: Hypertension - cont current BP meds, including Procardia XL 60mg Q12H, Cozaar 50mg q12H, Hydralazine 50mg TID, Coreg 25mg BID - Hydralazine PO PRN - BP reading in the 140-160s systolic, likely pain is contributing to BP elevation (6) Anemia Code(s): D64.9 - Anemia, unspecified Status: Chronic Plan: - Pts H/H has slowly been declining. No noted active GIB - iron deficiency anemia - Hg 8.7 (08/16) - During the last admission the pt was transfused with 2 units PRBCs (08/10) - During recent admission pt underwent evaluation with EGD/Colonoscopy (08/11/17 ) with Dr. Mccormick - int/ext hemorrhoids - sigmoid diverticulosis - esophagitis - gastric biopsies taken, results pending - Repeat labs on 08/22/17 with Hgb 8.8/Hct 26.7 (7) CAD (coronary artery disease) Code(s): I25.10 - Atherosclerotic heart disease of [place] coronary artery without angina pectoris Status: Chronic Plan: CAD (coronary artery disease) Recent history of pulmonary embolism - Patient had a PE approximately 8 months ago and was on Coumadin for until the cardiac cauterization 06/17/17 - Patient with recent cardiac catheterization with PCI 06/17/17 - After catheterization patient's Coumadin was DC'd and he was started on Aspirin and Plavix - Continue patient's Aspirin 81 mg daily, Plavix 75 mg PO daily, Atorvastatin 40 mg PO QHS and Coreg BID (8) History of pulmonary embolism Code(s): Z86.711 - Personal history of pulmonary embolism Status: Chronic Plan: - See above (9) Anxiety and depression Code(s): F41.9 - Anxiety disorder, unspecified; F32.9 - Major depressive disorder, single episode, unspecified Status: Chronic Plan: - Cont. Paxil 20mg daily - Plan Patient examined. Assessment and plan formulated with Minda GAN I agree with the above. (1) Rupture of right Achilles tendon Qualifiers: Encounter type: subsequent encounter Qualified Code(s): S86.011D - Strain of right Achilles tendon, subsequent encounter (4) Diabetes Qualifiers: Diabetes mellitus type: type 2
[2017-08-23] MEDS: CEFTRIAXONE IV.SIG SCH (23:00)
[2017-08-23] MEDS: SODIUM CHLOR 0.9% IV.SIG SCH (23:00)
[2017-08-24] MEDS: Morphine Inj 4 MG/ML Vial IV.PUSH PRN ×6 (01:53→23:42)
[2017-08-24] MEDS ORDERED: Sodium Chlor 0.9% Inj 500 ML IV.SIG SCH (06:00)
[2017-08-24] MEDS ORDERED: Chlorhexidine Gluconate 2% 1 Pack (2 Cloths) TOPICAL SCH (06:00)
[2017-08-24] MEDS: Gabapentin 300 MG Capsule PO SCH ×3 (06:15→20:59)
[2017-08-24 06:27] LABS: Baso % (Auto) 0.8 % (0.0-2.0); Eos # (Auto) 0.1 th/mm3 (0.0-0.4); Eos % (Auto) 2.5 % (0.0-4.0); Hematocrit 23.5 % (39.0-51.0); Hemoglobin 7.7 gm/dL (13.0-17.0); Lymph # (Auto) 0.7 th/mm3 (1.0-4.8); Lymph % (Auto) 13.9 % (9.0-44.0); Mean Corpuscular Hemoglobin 26.7 pg (27.0-34.0); Mean Corpuscular Volume 80.9 fL (80.0-100.0); Mean Platelet Volume 6.6 fL (7.0-11.0); Mono # (Auto) 0.8 th/mm3 (0.0-0.9); Mono % (Auto) 17.1 % (0.0-8.0); Neut # (Auto) 3.2 th/mm3 (1.8-7.7); Neut % (Auto) 65.7 % (16.0-70.0); Platelet Count 260 th/mm3 (150-450); Red Cell Distribution Width 14.8 % (11.6-17.2); White Blood Count 4.8 th/mm3 (4.0-11.0)
[2017-08-24 06:55] LABS: Calcium 8.8 mg/dL (8.5-10.1); Carbon Dioxide 26.2 meq/L (21.0-32.0); Magnesium 1.9 mg/dL (1.5-2.5); Potassium 4.7 meq/L (3.5-5.1)
[2017-08-24] MEDS: Glimepiride 2 MG Tablet PO SCH ×2 (09:13→17:50)
[2017-08-24] MEDS: Senna/Docusate Sodium 8.6/50 MG Tablet PO SCH ×2 (09:13→20:51)
[2017-08-24] MEDS: Nystatin Liq 500,000 UNIT/5 ML UDC SWISH-SWAL SCH ×4 (09:13→20:52)
[2017-08-24] MEDS: hydrALAZINE 25 MG Tablet PO SCH ×3 (09:13→19:16)
[2017-08-24] MEDS: Carvedilol 12.5 MG Tablet PO SCH ×3 (09:16→20:51)
[2017-08-24] MEDS ORDERED: Succinylcholine Inj 100 MG/5 ML Syringe IV.PUSH ONE (12:00)
[2017-08-24] MEDS ORDERED: Lidocaine PF 1% Inj 5 ML Syringe INFILTRATN ONE (12:00)
[2017-08-24] MEDS ORDERED: Misc Info for Pharmacy OTHER STA (13:49)
--- NOTE | 2017-08-24 13:54 | P.PCN ---
Date of procedure: 08/24/17 Pre-op diagnosis: Infection to right posterior achilles Post-op diagnosis: same Procedure: Incision and drainage of right posterior achilles Anesthesia: MERCEDEZ Surgeon: Josie Hull Estimated blood loss (mL): 10 Pathology: other (Soft tissue for micro) Condition: stable Disposition: PACU
[2017-08-24] MEDS ORDERED: Bupivacaine PF 0.25% Inj 30 ML Vial ONE (14:06)
[2017-08-24] MEDS ORDERED: *Ondansetron Inj 4 MG/2 ML Vial PERIprocedural Use ONLY ONE (15:43)
[2017-08-24] MEDS ORDERED: fentaNYL Citrate Inj 100 MCG/2 ML Ampul ONE (15:43)
[2017-08-24] MEDS ORDERED: *Meperidine Inj 25 MG/ML Vial PERIprocedural Use ONLY ONE (15:43)
--- NOTE | 2017-08-24 16:14 | MP ---
cc: Josie Hull DPM DATE OF OPERATION: SURGEON: Josie Hull DPM BUSINESS CONTROL MANAGER: None. PREOPERATIVE DIAGNOSIS: Right posterior Achilles infection. POSTOPERATIVE DIAGNOSIS: Right posterior Achilles infection. PROCEDURE PERFORMED: Right posterior Achilles incision and drainage. ANESTHESIA: General. HEMOSTASIS: None. ESTIMATED BLOOD LOSS: 10 mL MATERIALS: 3-0 Prolene. INJECTABLES: 0.5% Marcaine plain infiltrated about the right ankle and right Achilles. COMPLICATIONS: None. INDICATIONS FOR PROCEDURE: The patient is a 47-year-old male, who is status post cardiac catheterization, as well as Achilles tendon repair with tendon transfer for augmentation. Cultures are no growth to date. However, he continues to have drainage and local signs of infection. The patient understands all benefits, complications, and alternatives associated with the procedure. He would like to proceed with surgical intervention. DESCRIPTION OF PROCEDURE: The patient was brought to the operating room, placed in his bed and general anesthesia was then induced. After general anesthesia was induced, the patient was placed prone on the table with care to pad off all bony prominences. Right foot was then prepped, draped and scrubbed in the usual sterile fashion. Attention was directed to a draining sinus to the distal Achilles tendon. An incision was made over the Achilles tendon. This deepened through skin and subcutaneous tissue with care to retract all vital neurovascular structures. There is noted to be a pocket of serous drainage to the medial posterior ankle. This was evacuated. There was noted to be mild purulent drainage, less than 5 mL total. There was a serous drainage and seroma formation noted. There was also noted to be loosening of fiberwire applied previously. This was tightened down with needle driver manager. Site was copiously irrigated with 3 liters of normal saline. Vancomycin powder was packed to site. The site was then closed with 3-0 Prolene. Adaptic, 4 x 4s, cast padding and Ronnell were then applied to the site. All previous sutures from previous surgery were removed. The patient was placed back onto his bed, transferred from the OR to PACU with vital signs stable and neurovascular status intact. He will remain in house secondary to other issues which are being treated and to also await OR cultures, infectious disease is following cultures as well and expecting OR cultures. Patient is to remain non weight bearing to right lower extremity. Non weight bearing will be stressed to patient as there was evidence intraoperatively of patient weight bearing as he as admitted to. Josie Hull DPM JIP/TL , 03:28 PM , 04:13 PM ROGERIO
--- NOTE | 2017-08-24 17:48 | P.PNIM ---
Subjective Interval history: Patient seen S/P Right posterior Achilles incision and drainage 08/24/[address] Hull C/o abd swelling Physical Exam Vital signs: Vital Signs 08/23/17 20:00 08/24/17 00:00 08/24/17 04:00 Temperature 98.6 F 97.4 F L 97.4 F L Pulse Rate 85 82 85 Respiratory Rate 20 17 20 Blood Pressure 173/75 H 162/82 H 148/77 H Pulse Oximetry 96 95 08/24/17 07:42 08/24/17 08:00 08/24/17 11:47 Temperature Pulse Rate 83 93 H Respiratory Rate Blood Pressure Pulse Oximetry 95 08/24/17 15:37 08/24/17 15:45 08/24/17 16:00 Temperature 98.5 F Pulse Rate 89 85 82 Respiratory Rate 20 22 19 Blood Pressure 148/76 H 151/76 H 146/75 H Pulse Oximetry 94 L 93 L 94 L 08/24/17 16:15 08/24/17 16:30 08/24/17 16:43 Temperature Pulse Rate 82 81 Respiratory Rate 17 19 Blood Pressure 151/79 H 152/80 H Pulse Oximetry 95 94 L 93 L 08/24/17 16:45 08/24/17 16:58 Temperature 98.7 F Pulse Rate 80 83 Respiratory Rate 17 19 Blood Pressure 157/75 H 150/72 H Pulse Oximetry 95 96 Intake & Output 08/23/17 08/24/17 08/24/17 18:59 06:59 18:59 Intake Total 500 / 500 Output Total 320 / 320 Balance 180 / 180 Weight 181.4 kg Intake: Anesthesia Amount 500 / 500 Output: Urine 300 / 300 Estimated Blood Loss 20 / 20 Narrative: GENERAL: This is a morbidly obese 47 year old male patient, in no apparent distress. CARDIOVASCULAR: Regular rate and rhythm RESPIRATORY: Clear to auscultation. Breath sounds equal bilaterally. GASTROINTESTINAL: Abdomen soft, non-tender, nondistended. Normal active bowel sounds NEURO: Alert & Oriented x4 to person, place, time, situation. Moves all ext x4 SKIN: RLE is post-op dressing, c/d/i Results - Labs CBC & Chem 7: 08/27/17 05:58 08/27/17 05:58 Laboratory Results - last 24 hr 08/23/17 08/24/17 08/24/17 21:07 06:07 06:07 WBC 4.8 RBC 2.90 L Hgb 7.7 L Hct 23.5 L MCV 80.9 MCH 26.7 L MCHC 33.0 RDW 14.8 Plt Count 260 MPV 6.6 L Neut % (Auto) 65.7 Lymph % (Auto) 13.9 [place] % (Auto) 17.1 H Eos % (Auto) 2.5 Baso % (Auto) 0.8 Neut # (Auto) 3.2 Lymph # (Auto) 0.7 L [place] # (Auto) 0.8 Eos # (Auto) 0.1 Baso # (Auto) 0.0 WBC Differential . Differential Comment Auto diff final Sodium 135 L Potassium 4.7 Chloride 98 Carbon Dioxide 26.2 Anion Gap 11 BUN 29 H Creatinine 1.22 Estimated GFR 64 L POC Glucose 194 H Random Glucose 124 H Calcium 8.8 Magnesium 1.9 08/24/17 08/24/17 08/24/17 07:46 11:52 15:42 WBC RBC Hgb Hct MCV MCH MCHC RDW Plt Count MPV Neut % (Auto) Lymph % (Auto) [place] % (Auto) Eos % (Auto) Baso % (Auto) Neut # (Auto) Lymph # (Auto) [place] # (Auto) Eos # (Auto) Baso # (Auto) WBC Differential Differential Comment Sodium Potassium Chloride Carbon Dioxide Anion Gap BUN Creatinine Estimated GFR POC Glucose 127 H 155 H 133 H Random Glucose Calcium Magnesium 08/24/17 17:32 WBC RBC Hgb Hct MCV MCH MCHC RDW Plt Count MPV Neut % (Auto) Lymph % (Auto) [place] % (Auto) Eos % (Auto) Baso % (Auto) Neut # (Auto) Lymph # (Auto) [place] # (Auto) Eos # (Auto) Baso # (Auto) WBC Differential Differential Comment Sodium Potassium Chloride Carbon Dioxide Anion Gap BUN Creatinine Estimated GFR POC Glucose 126 H Random Glucose Calcium Magnesium Microbiology 08/22/17 12:03 Fluid - Other Gram Stain - Final 08/22/17 12:03 Fluid - Other Body Fluid Culture - Preliminary No growth in 48 hours - Procedures Right posterior Achilles incision and drainage 08/24/[address] Hull Assessment and Plan - Assessment (1) Rupture of right Achilles tendon Code(s): S86.011A - Strain of right Achilles tendon, initial encounter Status : Acute Plan: Open Achilles rupture, right - Recent admission with Achilles rupture - Pt underwent open repair of right Achilles tendon rupture with flexor hallucis longus tendon transfer and gastrocnemius recession, right lower extremity on 07/24/[address] Murillo. - Per podiatry, pt will need to be strict non-weight bearing for 6-8 weeks. - Pt was noted to have increased swelling and pain in the RLE on 08/04 - LE Doppler US (08/04) --> Is negative for DVT - Refused dc to snf and was noncompliant with weight bearing instructions. - Pt was readmitted with infection at operative site on 08/16 - He was seen by podiatry in clinic on 08/16 and sent to ED - MRI right ankle (08/16): 1. Postoperative change at the distal Achilles and calcaneus. Increased signal within the posterior calcaneus can all be consistent with postoperative change. It would be difficult to rule out osteomyelitis. 2. Fluid seen around the Achilles tendon. More superiorly in the mid lower leg, there is a larger fluid collection with peripheral enhancement. There is also a thinner fluid collection seen more superiorly in the proximal lower leg around the lateral aspect of the soleus muscle. These fluid collections could be postoperative seromas. An abscess could have a similar appearance. - Pt was given vanco and Zosyn starting on 08/16 - ID and podiatry consulted at admission. - Pt had a previous outpt culture taken on 08/11 which grew out Enterobacter cloacae - ID changed Abx to Rocephin to cover bacteria on cx taken 08/11 but surgical exploration was recommended for concern about deep infection. - Case discussed between ID, podiatry, and medicine on 08/19 and the plan is for IR drainage/cx on Tuesday to better guide [place] terminal agent abx - If IR is unable to obtain a sample or drain the area a minimally invasive bedside procedure may be done - IV Lasix increased to 40mg IV BID on 08/18 to improve extremity edema. - (08/24) will give additional Lasix 40 mg IV now to equal a total of 80 mg IV this evening - Pt underwent CT guided drainage at E with Radiology (08/22). Fluid cultures with NGTD. - The pts wound was examined by podiatry and ID today and secondary to continued serous drainage and surrounding infection will perform right posterior Achilles incision and drainage - S/P Right posterior Achilles incision and drainage 08/24/[address] Hull - intraoperative cultures pending - CBC and BMP in AM - resume Lovenox injection in AM - DVT prophylaxis with Lovenox (2) Obesity hypoventilation syndrome Code(s): E66.2 - Morbid (severe) obesity with alveolar hypoventilation Status : Chronic Plan: Hypercapnic respiratory insufficiency Obesity hypoventilation syndrome COPD - 2-D echocardiogram 07/23/17: - The left ventricular systolic function is mildly reduced with an estimated ejection fraction in the range of 45- 50%. - Mild infero-posterior hypokinesis - Mild concentric left ventricular hypertrophy. - The left atrial size is moderately dilated. - RHC completed (07/28) --> Class 2 Pulm HTN, PCW 23 - No Right heart strain, so sildenafil was stopped - Pt is noncompliant with CPAP - Pt still requiring 2L of supplemental O2 - titrate as tolerated to maintain saturation > or equal to 92% (3) COPD (chronic obstructive pulmonary disease) Code(s): J44.9 - Chronic obstructive pulmonary disease, unspecified Status: Chronic Plan: - See above (4) Diabetes Code(s): E11.9 - Type 2 diabetes mellitus without complications Status: Chronic Plan: - Cont OHA and SSI. - Titrate as needed (5) HTN (hypertension) Code(s): I10 - Essential (primary) hypertension Status: Chronic Plan: Hypertension - cont current BP meds, including Procardia XL 60mg Q12H, Cozaar 50mg q12H, Hydralazine 50mg TID, Coreg 25mg BID - Hydralazine PO PRN - BP reading in the 140-160s systolic, likely pain is contributing to BP elevation (6) Anemia Code(s): D64.9 - Anemia, unspecified Status: Chronic Plan: - Pts H/H has slowly been declining. No noted active GIB - iron deficiency anemia - Hg 8.7 (08/16) - During the last admission the pt was transfused with 2 units PRBCs (08/10) - During recent admission pt underwent evaluation with EGD/Colonoscopy (08/11/17 ) with Dr. Mccormick - int/ext hemorrhoids - sigmoid diverticulosis - esophagitis - gastric biopsies taken, results pending - Repeat labs on 08/22/17 with Hgb 8.8/Hct 26.7 (7) CAD (coronary artery disease) Code(s): I25.10 - Atherosclerotic heart disease of [place] coronary artery without angina pectoris Status: Chronic Plan: CAD (coronary artery disease) Recent history of pulmonary embolism - Patient had a PE approximately 8 months ago and was on Coumadin for until the cardiac cauterization 06/17/17 - Patient with recent cardiac catheterization with PCI 06/17/17 - After catheterization patient's Coumadin was DC'd and he was started on Aspirin and Plavix - Continue patient's Aspirin 81 mg daily, Plavix 75 mg PO daily, Atorvastatin 40 mg PO QHS and Coreg BID (8) History of pulmonary embolism Code(s): Z86.711 - Personal history of pulmonary embolism Status: Chronic Plan: - See above (9) Anxiety and depression Code(s): F41.9 - Anxiety disorder, unspecified; F32.9 - Major depressive disorder, single episode, unspecified Status: Chronic Plan: - Cont. Paxil 20mg daily - Attending Attestation Patient examined. Assessment and plan formulated with Sally Mathias PA-C. I agree with the above. (1) Rupture of right Achilles tendon Qualifiers: Encounter type: subsequent encounter Qualified Code(s): S86.011D - Strain of right Achilles tendon, subsequent encounter (4) Diabetes Qualifiers: Diabetes mellitus type: type 2
[2017-08-24] MEDS: Allopurinol 100 MG Tablet PO SCH (17:50)
[2017-08-24] MEDS: Insulin NovoLOG Aspart Correctional Sugar Inj SQ SCH ×3 (19:14→20:49)
[2017-08-24] MEDS: CEFTRIAXONE IV.SIG SCH (20:50)
[2017-08-24] MEDS: SODIUM CHLOR 0.9% IV.SIG SCH (20:50)
--- NOTE | 2017-08-24 21:47 | ECG ---
Date Performed: 08/24/2017 Time Performed: 06:39:32 PTAGE: 47 years EKG: Sinus rhythm . Low QRS voltages in precordial leads Borderline ECG Since the PREVIOUS TRACING , no significant change noted DOCTOR: Rashawn Antony Interpretating Date/Time 08/24/2017 21:46:38
[2017-08-25] MEDS: Morphine Inj 4 MG/ML Vial IV.PUSH PRN ×6 (02:53→22:00)
[2017-08-25] MEDS: Gabapentin 300 MG Capsule PO SCH ×3 (05:58→21:56)
--- NOTE | 2017-08-25 07:10 | P.PNPOD ---
Subjective Interval history: Delayed entry, Patient seen preop prior to surgical intervention 08/24. Patient denies any N,V,F,Ch. States he is ready to proceed with surgical intervention. Reports swelling to the left first MPJ with discoloration. Physical Exam Vital signs: Vital Signs 08/24/17 07:42 08/24/17 08:00 08/24/17 11:47 Temperature Pulse Rate 83 93 H Respiratory Rate Blood Pressure Pulse Oximetry 95 08/24/17 12:00 08/24/17 15:37 08/24/17 15:45 Temperature 98.1 F 98.5 F Pulse Rate 87 89 85 Respiratory Rate 18 20 22 Blood Pressure 146/82 H 148/76 H 151/76 H Pulse Oximetry 96 94 L 93 L 08/24/17 16:00 08/24/17 16:15 08/24/17 16:30 Temperature 97.8 F Pulse Rate 88 82 81 Respiratory Rate 18 17 19 Blood Pressure 176/90 H 151/79 H 152/80 H Pulse Oximetry 98 95 94 L 08/24/17 16:43 08/24/17 16:45 08/24/17 16:58 Temperature 98.7 F Pulse Rate 80 83 Respiratory Rate 17 19 Blood Pressure 157/75 H 150/72 H Pulse Oximetry 93 L 95 96 08/24/17 17:59 08/24/17 19:00 08/24/17 20:00 Temperature 97.6 F Pulse Rate 91 H 95 H Respiratory Rate 20 Blood Pressure 153/72 H Pulse Oximetry 98 95 08/24/17 23:52 08/25/17 00:00 08/25/17 04:00 Temperature 98.4 F 98.1 F Pulse Rate 84 95 H 78 Respiratory Rate 18 18 Blood Pressure 155/74 H 146/69 H Pulse Oximetry 96 97 Intake & Output 08/24/17 08/25/17 08/25/17 18:59 06:59 18:59 Intake Total 500 / 500 440 / 440 Output Total 2670 / 2670 1400 / 1400 Balance -2170 / -2170 -960 / -960 Weight 181.6 kg Intake: Oral 0 / 0 440 / 440 Anesthesia Amount 500 / 500 Output: Urine 2650 / 2650 1400 / 1400 Stool 0 / 0 Estimated Blood Loss 20 / 20 Narrative: Dressing to RLE clean, dry and intact. Left first MPJ with no pain on palpation however increased edema and erythema noted to the first MPJ. Medications and Allergies Active Medications: Active Medications Al Hydroxide/Mg Hydroxide (Milk Of [place] Liq) 30 ml PO Q12H PRN PRN Reason: MILD CONSTIPATION Allopurinol (Zyloprim) 100 mg PO DAILY COUNT INCLUDES THE [facility] Last Admin: 08/24/17 17:50 Dose: 100 mg Aspirin (Ecotrin) 81 mg PO DAILY COUNT INCLUDES THE [facility] Last Admin: 08/24/17 19:15 Dose: Not Given Atorvastatin Calcium (Lipitor) 40 mg PO HS COUNT INCLUDES THE [facility] Last Admin: 08/24/17 20:51 Dose: 40 mg Bisacodyl (Dulcolax Supp) 10 mg RECTAL DAILY PRN PRN Reason: SEVERE CONSTIPATION Carvedilol (Coreg) 25 mg PO BID COUNT INCLUDES THE [facility] Last Admin: 08/24/17 20:51 Dose: 25 mg Chlorhexidine Gluconate (Chlorhexidine 2% Cloth) 3 pack TOPICAL HE[employer] INFORMATION TECHNICIAN COUNT INCLUDES THE [facility] Stop: 08/27/17 05:53 Clopidogrel Bisulfate (Plavix) 75 mg PO DAILY COUNT INCLUDES THE [facility] Last Admin: 08/24/17 19:16 Dose: Not Given Dextrose (D50w Vial) 50 ml IV.PUSH UNSCH PRN PRN Reason: PER HYPOGLYCEMIA PROTOCOL Enoxaparin Sodium (Lovenox Inj) 40 mg SQ Q24H COUNT INCLUDES THE [facility] Last Admin: 08/22/17 22:57 Dose: 40 mg Furosemide (Lasix Inj) 40 mg IV.PUSH BID@0900,1800 COUNT INCLUDES THE [facility] Last Admin: 08/24/17 17:46 Dose: 40 mg Gabapentin (Neurontin) 300 mg PO Q8HR COUNT INCLUDES THE [facility] Last Admin: 08/25/17 05:58 Dose: 300 mg Glimepiride (Amaryl) 2 mg PO BIDAC COUNT INCLUDES THE [facility] Last Admin: 08/24/17 17:50 Dose: 2 mg Glucagon (Glucagon Inj) 1 mg OTHER PRN PRN PRN Reason: for Hypoglycemia Protocol Hydralazine HCl (Apresoline) 50 mg PO TID COUNT INCLUDES THE [facility] Last Admin: 08/24/17 19:16 Dose: Not Given Hydralazine HCl (Apresoline) 25 mg PO Q8HR PRN PRN Reason: SBP >170 Lactated Ringer's (Lr 1000 Ml Inj) 1,000 mls @ 30 mls/hr IV.SIG .Q24H COUNT INCLUDES THE [facility] Stop: 08/27/17 05:53 Last Admin: 08/24/17 20:48 Dose: Not Given Sodium Chloride (Ns Inj) 500 mls @ 30 mls/hr IV.SIG .Q10H COUNT INCLUDES THE [facility] Stop: 08/27/17 05:53 Ceftriaxone Sodium 2,000 mg/ (Sodium Chloride) 100 mls @ 200 mls/hr IV.SIG Q24H COUNT INCLUDES THE [facility] Last Admin: 08/24/17 20:50 Dose: 200 mls/hr Insulin Aspart (Novolog Insulin Suppl Scale Inj) 0 unit SQ ACHS COUNT INCLUDES THE [facility]; Protocol Last Admin: 08/24/17 20:49 Dose: 7 unit Lactulose (Lactulose Liq) 30 ml PO DAILY PRN PRN Reason: SEVERE CONSTIPATION Losartan Potassium (Cozaar) 50 mg PO Q12HR COUNT INCLUDES THE [facility] Last Admin: 08/24/17 20:47 Dose: 50 mg Miscellaneous Information ([facility] Nursing Information) 1 each OTHER UNSCH PRN PRN Reason: SEE LABEL COMMENTS Stop: 08/25/17 16:48 Morphine Sulfate (Morphine Inj) 4 mg IV.PUSH Q3H PRN PRN Reason: SEE LABEL COMMENTS Last Admin: 08/25/17 05:58 Dose: 4 mg Naloxone HCl (Narcan Inj) 0.4 mg IV.PUSH UNSCH PRN PRN Reason: SEE LABEL COMMENTS Nifedipine (Procardia Xl) 60 mg PO Q12HR COUNT INCLUDES THE [facility] Last Admin: 08/24/17 20:47 Dose: 60 mg Nystatin (Mycostatin Liq) 5 ml SWISH-SWAL QID COUNT INCLUDES THE [facility] Last Admin: 08/24/17 20:52 Dose: 5 ml Pantoprazole Sodium (Protonix) 40 mg PO DAILY COUNT INCLUDES THE [facility] Last Admin: 08/24/17 17:49 Dose: 40 mg Paroxetine HCl (Paxil) 20 mg PO DAILY COUNT INCLUDES THE [facility] Last Admin: 08/24/17 09:15 Dose: 20 mg Povidone Iodine (Betadine 5% Antisepsis Kit) 1 applicatio EACH [employer] INFORMATION TECHNICIAN COUNT INCLUDES THE [facility] Stop: 08/27/17 05:53 Senna/Docusate Sodium ([place]-Colace) 1 tab PO BID COUNT INCLUDES THE [facility] Last Admin: 08/24/17 20:51 Dose: 1 tab Sennosides (Senokot) 17.2 mg PO Q12H PRN PRN Reason: MODERATE CONSTIPATION Sodium Chloride ([place] Nasal [place]) 1 spray EACH NARE Q6H PRN PRN Reason: FOR DRYNESS Last Admin: 08/22/17 13:18 Dose: 1 spray Sodium Chloride (Ns Flush) 2 ml IV.FLUSH UNSCH PRN PRN Reason: FLUSH AFTER USING IV ACCESS Sodium Chloride (Ns Flush) 2 ml IV.FLUSH BID CATIE Last Admin: 08/24/17 20:52 Dose: 2 ml Temazepam (Restoril) 15 mg PO HS PRN PRN Reason: INSOMNIA Allergies Allergy/AdvReac Type Severity Reaction Status Date / Time codeine Allergy Severe Itching Verified 08/16/17 19:14 quetiapine Allergy Intermediate Hallucinati Verified 08/16/17 19:14 ons tramadol Allergy Unknown UNKNOWN Verified 08/20/17 10:36 clonidine AdvReac Severe ARNDT, dry Verified 08/20/17 10:36 mouth, "felt drunk" lisinopril AdvReac Unknown abnormal Verified 08/16/17 19:14 labs K level Home Medications Medication Instructions Recorded Confirmed Type allopurinol 100 mg PO DAILY 08/20/17 08/20/17 History aspirin 81 mg PO DAILY 08/20/17 08/20/17 History atorvastatin 40 mg PO HS 08/20/17 08/20/17 History carvedilol 25 mg PO BID 08/20/17 08/20/17 History clindamycin HCl 300 mg PO Q6H 08/20/17 08/20/17 History clopidogrel 75 mg PO DAILY 08/20/17 08/20/17 History furosemide 40 mg PO DAILY 08/20/17 08/20/17 History gabapentin 300 mg PO Q8H 08/20/17 08/20/17 History glimepiride 2 mg PO BIDAC 08/20/17 08/20/17 History hydralazine 50 mg PO TID 08/20/17 08/20/17 History hydrocodone-acetaminophen 1 tab PO Q4H PRN 08/20/17 08/20/17 History insulin aspart U-100 [Novolog 1 sliding scale dose SUB-Q 08/20/17 08/20/17 History U-100 Insulin aspart] DIRECTED losartan 50 mg PO Q12H 08/20/17 08/20/17 History metformin 750 mg PO BID 08/20/17 08/20/17 History nifedipine 60 mg PO Q12H 08/20/17 08/20/17 History nystatin 5 ml PO QID 08/20/17 08/20/17 History pantoprazole 40 mg PO DAILY 08/20/17 08/20/17 History paroxetine HCl 20 mg PO DAILY 08/20/17 08/20/17 History Results - Labs CBC & Chem 7: 08/24/17 06:07 08/24/17 06:07 Laboratory Results - last 24 hr 08/24/17 08/24/17 08/24/17 07:46 11:52 15:42 POC Glucose 127 H 155 H 133 H 08/24/17 08/24/17 17:32 20:19 POC Glucose 126 H 271 H Microbiology 08/22/17 12:03 Fluid - Other Gram Stain - Final 08/22/17 12:03 Fluid - Other Body Fluid Culture - Preliminary No growth in 48 hours - Procedures Right posterior Achilles incision and drainage 08/24/[address] Hull Assessment and Plan - Plan 47-year-old male status post Achilles tendon repair with gastroc lengthening to right lower extremity with distal draining sinus Patient examined evaluated with all questions answered Cultures are no growth to date Discussed with infectious disease Patient to OR today secondary to continued serous drainage and minimal improvement on IV abx therapy. Patient to remained n.p.o. after midnight Consent obtained and in chart Consent to Read right Achilles tendon incision and drainage with any other indicated procedures RLE marked Will obtain Xrays of right first MPJ
--- NOTE | 2017-08-25 08:13 | XR ---
EXAM DATE: 08/25/2017 8:08 AM EDT AGE/SEX: 47 years / Male INDICATIONS: Left foot pain. CLINICAL DATA: This is the patient's initial encounter. Patient reports that signs and symptoms have been present for 2 months and indicates a pain score of 10/10. MEDICAL/SURGICAL HISTORY: . Diabetes, COPD, CHF, Hypertension . Right foot COMPARISON: [facility]PO, ANKLE LEFT LIMITED (AP&LAT), 06/09/2017. . FINDINGS: Bony structures are intact and in normal alignment. Osseous density is normal. Soft tissues prominen ce of the hind and midfoot. Plantar calcaneal spurring. No radiopaque foreign bodies seen. CONCLUSION: 1. No acute fracture or dislocation. 2. Soft tissue swelling about the hind and midfoot. Electronically signed by: Polo Busch MD 08/25/2017 8:11 AM EDT
[2017-08-25 09:10] LABS: Baso % (Auto) 0.7 % (0.0-2.0); Eos # (Auto) 0.1 th/mm3 (0.0-0.4); Eos % (Auto) 1.8 % (0.0-4.0); Hematocrit 24.2 % (39.0-51.0); Hemoglobin 7.8 gm/dL (13.0-17.0); Lymph # (Auto) 0.8 th/mm3 (1.0-4.8); Lymph % (Auto) 13.5 % (9.0-44.0); Mean Corpuscular HGB Conc 32.1 % (32.0-36.0); Mean Corpuscular Volume 80.9 fL (80.0-100.0); Mean Platelet Volume 6.9 fL (7.0-11.0); Mono # (Auto) 1.1 th/mm3 (0.0-0.9); Mono % (Auto) 17.6 % (0.0-8.0); Neut # (Auto) 4.1 th/mm3 (1.8-7.7); Neut % (Auto) 66.4 % (16.0-70.0); Platelet Count 282 th/mm3 (150-450); Red Blood Count 2.99 mil/mm3 (4.50-5.90); Red Cell Distribution Width 15.1 % (11.6-17.2); White Blood Count 6.2 th/mm3 (4.0-11.0)
[2017-08-25] MEDS: Glimepiride 2 MG Tablet PO SCH ×2 (09:13→18:27)
[2017-08-25] MEDS: Carvedilol 12.5 MG Tablet PO SCH ×2 (09:13→21:54)
[2017-08-25] MEDS: Allopurinol 100 MG Tablet PO SCH (09:13)
[2017-08-25] MEDS: Nystatin Liq 500,000 UNIT/5 ML UDC SWISH-SWAL SCH ×4 (09:13→21:55)
[2017-08-25] MEDS: hydrALAZINE 25 MG Tablet PO SCH ×3 (09:14→18:27)
[2017-08-25] MEDS: Senna/Docusate Sodium 8.6/50 MG Tablet PO SCH ×2 (09:14→21:56)
[2017-08-25] MEDS: Insulin NovoLOG Aspart Correctional Sugar Inj SQ SCH ×5 (09:16→21:55)
[2017-08-25 09:35] LABS: Calcium 8.8 mg/dL (8.5-10.1); Carbon Dioxide 30.4 meq/L (21.0-32.0)
--- NOTE | 2017-08-25 18:16 | P.PNIM ---
Subjective Interval history: No new complaints. Physical Exam Vital signs: Vital Signs 08/24/17 19:00 08/24/17 20:00 08/24/17 23:52 Temperature 97.6 F Pulse Rate 91 H 95 H 84 Respiratory Rate 20 Blood Pressure 153/72 H Pulse Oximetry 95 08/25/17 00:00 08/25/17 04:00 08/25/17 08:00 Temperature 98.4 F 98.1 F 98 F Pulse Rate 95 H 78 90 Respiratory Rate 18 18 20 Blood Pressure 155/74 H 146/69 H 146/97 H Pulse Oximetry 96 97 94 L 08/25/17 08:11 08/25/17 12:00 08/25/17 12:08 Temperature Pulse Rate 81 84 84 Respiratory Rate 18 Blood Pressure 144/79 H Pulse Oximetry 96 08/25/17 14:38 08/25/17 16:00 Temperature Pulse Rate 96 H Respiratory Rate 18 Blood Pressure 144/79 H Pulse Oximetry 96 96 Intake & Output 08/24/17 08/25/17 08/25/17 18:59 06:59 18:59 Intake Total 500 / 500 440 / 440 Output Total 2670 / 2670 1400 / 1400 Balance -2170 / -2170 -960 / -960 Weight 181.6 kg Intake: Oral 0 / 0 440 / 440 Anesthesia Amount 500 / 500 Output: Urine 2650 / 2650 1400 / 1400 Stool 0 / 0 Estimated Blood Loss 20 / 20 Narrative: General: NAD, AAOx3 Chest: CTA Cardiac: Regular Abd: +BS, soft ND/NT Ext: Right leg splinted no redness noted above the bandages. Bilateral LE edema Results - Labs CBC & Chem 7: 08/28/17 07:50 08/28/17 07:50 Laboratory Results - last 24 hr 08/24/17 08/25/17 08/25/17 20:19 06:37 06:37 WBC 6.2 RBC 2.99 L Hgb 7.8 L Hct 24.2 L MCV 80.9 MCH 26.0 L MCHC 32.1 RDW 15.1 Plt Count 282 MPV 6.9 L Neut % (Auto) 66.4 Lymph % (Auto) 13.5 [place] % (Auto) 17.6 H Eos % (Auto) 1.8 Baso % (Auto) 0.7 Neut # (Auto) 4.1 Lymph # (Auto) 0.8 L [place] # (Auto) 1.1 H Eos # (Auto) 0.1 Baso # (Auto) 0.0 WBC Differential . Differential Comment Auto diff final Sodium 138 Potassium 5.0 Chloride 98 Carbon Dioxide 30.4 Anion Gap 10 BUN 27 H Creatinine 1.28 Estimated GFR 61 L POC Glucose 271 H Random Glucose 93 Calcium 8.8 08/25/17 08/25/17 07:59 12:24 WBC RBC Hgb Hct MCV MCH MCHC RDW Plt Count MPV Neut % (Auto) Lymph % (Auto) [place] % (Auto) Eos % (Auto) Baso % (Auto) Neut # (Auto) Lymph # (Auto) [place] # (Auto) Eos # (Auto) Baso # (Auto) WBC Differential Differential Comment Sodium Potassium Chloride Carbon Dioxide Anion Gap BUN Creatinine Estimated GFR POC Glucose 121 H 162 H Random Glucose Calcium Microbiology 08/24/17 15:00 Tissue - Ankle Gram Stain - Final 08/24/17 15:00 Tissue - Ankle Wound Culture - Preliminary gram negative rods 08/24/17 15:00 Tissue - Ankle Fungal Smear - Final No fungal elements seen 08/22/17 12:03 Fluid - Other Gram Stain - Final 08/22/17 12:03 Fluid - Other Body Fluid Culture - Final No growth in 72 hours (aerobically and anaerobically ) - Imaging Impressions Foot X-Ray 08/25/17 07:11 CONCLUSION: 1. No acute fracture or dislocation. 2. Soft tissue swelling about the hind and midfoot. - Procedures Right posterior Achilles incision and drainage 08/24/[address] Hull Assessment and Plan - Assessment (1) Rupture of right Achilles tendon Code(s): S86.011A - Strain of right Achilles tendon, initial encounter Status : Acute Plan: Open Achilles rupture, right - Recent admission with Achilles rupture - Pt underwent open repair of right Achilles tendon rupture with flexor hallucis longus tendon transfer and gastrocnemius recession, right lower extremity on 07/24/[address] Murillo. - Per podiatry, pt will need to be strict non-weight bearing for 6-8 weeks. - Pt was noted to have increased swelling and pain in the RLE on 08/04 - LE Doppler US (08/04) --> Is negative for DVT - Refused dc to snf and was noncompliant with weight bearing instructions. - Pt was readmitted with infection at operative site on 08/16 - He was seen by podiatry in clinic on 08/16 and sent to ED - MRI right ankle (08/16): 1. Postoperative change at the distal Achilles and calcaneus. Increased signal within the posterior calcaneus can all be consistent with postoperative change. It would be difficult to rule out osteomyelitis. 2. Fluid seen around the Achilles tendon. More superiorly in the mid lower leg, there is a larger fluid collection with peripheral enhancement. There is also a thinner fluid collection seen more superiorly in the proximal lower leg around the lateral aspect of the soleus muscle. These fluid collections could be postoperative seromas. An abscess could have a similar appearance. - vanco and Zosyn (08/17) - Rocephin (08/17 - present) - Comgmt with ID & Podiatry - Pt had a previous outpt culture taken on 08/11 which grew out Enterobacter cloacae - Right posterior Achilles incision and drainage 08/24/[address] Hull - Intraoperative wound Cx (08/24) --> gram negative rods - follow culture results - Pt needs SNF following hospitalization to ensure non-weight bearing of RLE and good recovery. Pt at risk for Right BKA. - IV Lasix increased to 40mg Iv BID on 08/18 to improve extremity edema. Pts Cr/ BUN are slowly increasing so will need to monitor BMP closely - DVT prophylaxis with Lovenox (2) Obesity hypoventilation syndrome Code(s): E66.2 - Morbid (severe) obesity with alveolar hypoventilation Status : Chronic Plan: Hypercapnic respiratory insufficiency Obesity hypoventilation syndrome COPD - 2-D echocardiogram 07/23/17: - The left ventricular systolic function is mildly reduced with an estimated ejection fraction in the range of 45- 50%. - Mild infero-posterior hypokinesis - Mild concentric left ventricular hypertrophy. - The left atrial size is moderately dilated. - RHC completed (07/28) --> Class 2 Pulm HTN, PCW 23 - No Right heart strain, so sildenafil was stopped - Pt is noncompliant with CPAP - Pt still requiring 2L of supplemental O2 (3) COPD (chronic obstructive pulmonary disease) Code(s): J44.9 - Chronic obstructive pulmonary disease, unspecified Status: Chronic Plan: - See above (4) Diabetes Code(s): E11.9 - Type 2 diabetes mellitus without complications Status: Chronic Plan: - Cont OHA and SSI. - Titrate as needed (5) HTN (hypertension) Code(s): I10 - Essential (primary) hypertension Status: Chronic Plan: Hypertension - cont current BP meds, including Procardia XL 60mg Q12H, Cozaar 50mg q12H, Hydralazine 50mg TID, Coreg 25mg BID - Hydralazine PO PRN (6) Anemia Code(s): D64.9 - Anemia, unspecified Status: Chronic Plan: - Pts H/H has slowly been declining. No noted active GIB - iron deficiency anemia - Hg 8.7 (08/16) - During the last admission the pt was transfused with 2 units PRBCs (08/10) - During recent admission pt underwent evaluation with EGD/Colonoscopy (08/11/17 ) with Dr. Mccormick - int/ext hemorrhoids - sigmoid diverticulosis - esophagitis - gastric biopsies taken, results pending - Repeat labs on 08/21/17 with Hgb 8.3/Hct 24.6 (7) CAD (coronary artery disease) Code(s): I25.10 - Atherosclerotic heart disease of [place] coronary artery without angina pectoris Status: Chronic Plan: CAD (coronary artery disease) Recent history of pulmonary embolism - Patient had a PE approximately 8 months ago and was on Coumadin for until the cardiac cauterization 06/17/17 - Patient with recent cardiac catheterization with PCI 06/17/17 - After catheterization patient's Coumadin was DC'd and he was started on Aspirin and Plavix - Continue patient's Aspirin 81 mg daily, Plavix 75 mg PO daily, Atorvastatin 40 mg PO QHS and Coreg BID (8) History of pulmonary embolism Code(s): Z86.711 - Personal history of pulmonary embolism Status: Chronic Plan: - See above (9) Anxiety and depression Code(s): F41.9 - Anxiety disorder, unspecified; F32.9 - Major depressive disorder, single episode, unspecified Status: Chronic Plan: - Cont. Paxil 20mg daily (1) Rupture of right Achilles tendon Qualifiers: Encounter type: subsequent encounter Qualified Code(s): S86.011D - Strain of right Achilles tendon, subsequent encounter (4) Diabetes Qualifiers: Diabetes mellitus type: type 2
--- NOTE | 2017-08-25 20:05 | P.PNPOD ---
Subjective Interval history: Patient seen bedside. Denies any nausea, vomiting, fevers, or chills. Patient is resting comfortably and eating. Relates no pain to right Achilles. Review of Systems No: All other systems reviewed negative except as stated in HPI Physical Exam Vital signs: Vital Signs 08/24/17 23:52 08/25/17 00:00 08/25/17 04:00 Temperature 98.4 F 98.1 F Pulse Rate 84 95 H 78 Respiratory Rate 18 18 Blood Pressure 155/74 H 146/69 H Pulse Oximetry 96 97 08/25/17 08:00 08/25/17 08:11 08/25/17 12:00 Temperature 98 F Pulse Rate 90 81 84 Respiratory Rate 20 18 Blood Pressure 146/97 H 144/79 H Pulse Oximetry 94 L 96 08/25/17 12:08 08/25/17 14:38 08/25/17 16:00 Temperature Pulse Rate 84 96 H Respiratory Rate 18 Blood Pressure 144/79 H Pulse Oximetry 96 96 08/25/17 18:29 Temperature Pulse Rate Respiratory Rate 20 Blood Pressure Pulse Oximetry Intake & Output 08/25/17 08/25/17 08/26/17 06:59 18:59 06:59 Intake Total 440 / 440 Output Total 1400 / 1400 1000 / 1000 Balance -960 / -960 -1000 / -1000 Weight 181.6 kg Intake: Oral 440 / 440 Output: Urine 1400 / 1400 1000 / 1000 Stool 0 / 0 Other: Post Void Residual 0 # Voids 3 # Incontinent Voids 0 # Urine Diapers 0 Narrative: Surgical dressing intact to right lower extremity. Active passive dorsiflexion of digits 5. No reported loss of sensation. Improvement noted to left first MPJ with decreased erythema and warmth noted. Medications and Allergies Active Medications: Active Medications Al Hydroxide/Mg Hydroxide (Milk Of [place] Liq) 30 ml PO Q12H PRN PRN Reason: MILD CONSTIPATION Allopurinol (Zyloprim) 100 mg PO DAILY [facility] Last Admin: 08/25/17 09:13 Dose: 100 mg Aspirin (Ecotrin) 81 mg PO DAILY [facility] Last Admin: 08/25/17 09:14 Dose: 81 mg Atorvastatin Calcium (Lipitor) 40 mg PO HS [facility] Last Admin: 08/24/17 20:51 Dose: 40 mg Benzocaine/Menthol (Chloraseptic Sore Throat Lozenge) 1 lozenge BUCCAL Q2HR PRN PRN Reason: sore throat Bisacodyl (Dulcolax Supp) 10 mg RECTAL DAILY PRN PRN Reason: SEVERE CONSTIPATION Carvedilol (Coreg) 25 mg PO BID [facility] Last Admin: 08/25/17 09:13 Dose: 25 mg Chlorhexidine Gluconate (Chlorhexidine 2% Cloth) 3 pack TOPICAL S[employer]DER [facility] Stop: 08/27/17 05:53 Clopidogrel Bisulfate (Plavix) 75 mg PO DAILY [facility] Last Admin: 08/25/17 09:14 Dose: 75 mg Dextrose (D50w Vial) 50 ml IV.PUSH UNSCH PRN PRN Reason: PER HYPOGLYCEMIA PROTOCOL Enoxaparin Sodium (Lovenox Inj) 40 mg SQ Q24H [facility] Last Admin: 08/22/17 22:57 Dose: 40 mg Furosemide (Lasix Inj) 40 mg IV.PUSH BID@0900,1800 [facility] Last Admin: 08/25/17 18:28 Dose: 40 mg Gabapentin (Neurontin) 300 mg PO Q8HR [facility] Last Admin: 08/25/17 14:02 Dose: 300 mg Glimepiride (Amaryl) 2 mg PO BIDAC [facility] Last Admin: 08/25/17 18:27 Dose: 2 mg Glucagon (Glucagon Inj) 1 mg OTHER PRN PRN PRN Reason: for Hypoglycemia Protocol Hydralazine HCl (Apresoline) 50 mg PO TID [facility] Last Admin: 08/25/17 18:27 Dose: 50 mg Hydralazine HCl (Apresoline) 25 mg PO Q8HR PRN PRN Reason: SBP >170 Lactated Ringer's (Lr 1000 Ml Inj) 1,000 mls @ 30 mls/hr IV.SIG .Q24H [facility] Stop: 08/27/17 05:53 Last Admin: 08/24/17 20:48 Dose: Not Given Sodium Chloride (Ns Inj) 500 mls @ 30 mls/hr IV.SIG .Q10H [facility] Stop: 08/27/17 05:53 Ceftriaxone Sodium 2,000 mg/ (Sodium Chloride) 100 mls @ 200 mls/hr IV.SIG Q24H [facility] Last Admin: 08/24/17 20:50 Dose: 200 mls/hr Insulin Aspart (Novolog Insulin Suppl Scale Inj) 0 unit SQ ACHS [facility]; Protocol Last Admin: 08/25/17 16:29 Dose: Not Given Lactulose (Lactulose Liq) 30 ml PO DAILY PRN PRN Reason: SEVERE CONSTIPATION Losartan Potassium (Cozaar) 50 mg PO Q12HR [facility] Last Admin: 08/25/17 09:14 Dose: 50 mg Morphine Sulfate (Morphine Inj) 4 mg IV.PUSH Q3H PRN PRN Reason: SEE LABEL COMMENTS Last Admin: 08/25/17 18:38 Dose: 4 mg Naloxone HCl (Narcan Inj) 0.4 mg IV.PUSH UNSCH PRN PRN Reason: SEE LABEL COMMENTS Nifedipine (Procardia Xl) 60 mg PO Q12HR [facility] Last Admin: 08/25/17 09:14 Dose: 60 mg Nystatin (Mycostatin Liq) 5 ml SWISH-SWAL QID [facility] Last Admin: 08/25/17 18:29 Dose: 5 ml Pantoprazole Sodium (Protonix) 40 mg PO DAILY [facility] Last Admin: 08/25/17 09:14 Dose: 40 mg Paroxetine HCl (Paxil) 20 mg PO DAILY [facility] Last Admin: 08/25/17 09:14 Dose: 20 mg Povidone Iodine (Betadine 5% Antisepsis Kit) 1 applicatio EACH NARE SIGN BUILDER [facility] Stop: 08/27/17 05:53 Senna/Docusate Sodium ([place]-Colace) 1 tab PO BID [facility] Last Admin: 08/25/17 09:14 Dose: 1 tab Sennosides (Senokot) 17.2 mg PO Q12H PRN PRN Reason: MODERATE CONSTIPATION Sodium Chloride ([place] Nasal [place]) 1 spray EACH NARE Q6H PRN PRN Reason: FOR DRYNESS Last Admin: 08/22/17 13:18 Dose: 1 spray Sodium Chloride (Ns Flush) 2 ml IV.FLUSH UNSCH PRN PRN Reason: FLUSH AFTER USING IV ACCESS Sodium Chloride (Ns Flush) 2 ml IV.FLUSH BID [facility] Last Admin: 08/25/17 09:15 Dose: 2 ml Temazepam (Restoril) 15 mg PO HS PRN PRN Reason: INSOMNIA Allergies Allergy/AdvReac Type Severity Reaction Status Date / Time codeine Allergy Severe Itching Verified 08/16/17 19:14 quetiapine Allergy Intermediate Hallucinati Verified 08/16/17 19:14 ons tramadol Allergy Unknown UNKNOWN Verified 08/20/17 10:36 clonidine AdvReac Severe ARNDT, dry Verified 08/20/17 10:36 mouth, "felt drunk" lisinopril AdvReac Unknown abnormal Verified 08/16/17 19:14 labs K level Home Medications Medication Instructions Recorded Confirmed Type allopurinol 100 mg PO DAILY 08/20/17 08/20/17 History aspirin 81 mg PO DAILY 08/20/17 08/20/17 History atorvastatin 40 mg PO HS 08/20/17 08/20/17 History carvedilol 25 mg PO BID 08/20/17 08/20/17 History clindamycin HCl 300 mg PO Q6H 08/20/17 08/20/17 History clopidogrel 75 mg PO DAILY 08/20/17 08/20/17 History furosemide 40 mg PO DAILY 08/20/17 08/20/17 History gabapentin 300 mg PO Q8H 08/20/17 08/20/17 History glimepiride 2 mg PO BIDAC 08/20/17 08/20/17 History hydralazine 50 mg PO TID 08/20/17 08/20/17 History hydrocodone-acetaminophen 1 tab PO Q4H PRN 08/20/17 08/20/17 History insulin aspart U-100 [Novolog 1 sliding scale dose SUB-Q 08/20/17 08/20/17 History U-100 Insulin aspart] DIRECTED losartan 50 mg PO Q12H 08/20/17 08/20/17 History metformin 750 mg PO BID 08/20/17 08/20/17 History nifedipine 60 mg PO Q12H 08/20/17 08/20/17 History nystatin 5 ml PO QID 08/20/17 08/20/17 History pantoprazole 40 mg PO DAILY 08/20/17 08/20/17 History paroxetine HCl 20 mg PO DAILY 08/20/17 08/20/17 History Results - Labs CBC & Chem 7: 08/25/17 06:37 08/25/17 06:37 Laboratory Results - last 24 hr 08/24/17 08/25/17 08/25/17 20:19 06:37 06:37 WBC 6.2 RBC 2.99 L Hgb 7.8 L Hct 24.2 L MCV 80.9 MCH 26.0 L MCHC 32.1 RDW 15.1 Plt Count 282 MPV 6.9 L Neut % (Auto) 66.4 Lymph % (Auto) 13.5 [place] % (Auto) 17.6 H Eos % (Auto) 1.8 Baso % (Auto) 0.7 Neut # (Auto) 4.1 Lymph # (Auto) 0.8 L [place] # (Auto) 1.1 H Eos # (Auto) 0.1 Baso # (Auto) 0.0 WBC Differential . Differential Comment Auto diff final Sodium 138 Potassium 5.0 Chloride 98 Carbon Dioxide 30.4 Anion Gap 10 BUN 27 H Creatinine 1.28 Estimated GFR 61 L POC Glucose 271 H Random Glucose 93 Calcium 8.8 08/25/17 08/25/17 08/25/17 07:59 12:24 17:54 WBC RBC Hgb Hct MCV MCH MCHC RDW Plt Count MPV Neut % (Auto) Lymph % (Auto) [place] % (Auto) Eos % (Auto) Baso % (Auto) Neut # (Auto) Lymph # (Auto) [place] # (Auto) Eos # (Auto) Baso # (Auto) WBC Differential Differential Comment Sodium Potassium Chloride Carbon Dioxide Anion Gap BUN Creatinine Estimated GFR POC Glucose 121 H 162 H 212 H Random Glucose Calcium Microbiology 08/24/17 15:00 Tissue - Ankle Gram Stain - Final 08/24/17 15:00 Tissue - Ankle Wound Culture - Preliminary gram negative rods 08/24/17 15:00 Tissue - Ankle Fungal Smear - Final No fungal elements seen 08/22/17 12:03 Fluid - Other Gram Stain - Final 08/22/17 12:03 Fluid - Other Body Fluid Culture - Final No growth in 72 hours (aerobically and anaerobically ) - Imaging Impressions Foot X-Ray 08/25/17 07:11 CONCLUSION: 1. No acute fracture or dislocation. 2. Soft tissue swelling about the hind and midfoot. - Procedures Right posterior Achilles incision and drainage 08/24/[address] Hull Assessment and Plan - Plan 47-year-old male status post Achilles tendon repair with gastroc lengthening to right lower extremity with distal draining sinus Status post right Achilles incision and drainage date of surgery 08/24 Patient examined evaluated with all questions answered Awaiting final OR cultures OR cultures growing gram-negative hiral Discussed with Dr. Morris and Dr. Cordero Patient to remain nonweightbearing to right lower extremity He is to elevate right lower extremity at all times Will change dressing tomorrow Patient states he is willing to go to rehab, this was discussed with Dr. Cordero as well he is [facility] Improvement noted to left first metatarsophalangeal joint with decreased erythema and warmth X-rays to left foot with Aldo's sign noted to medial eminence suggestive of gout Patient reports no pain and clinical improvement noted, will monitor progress
[2017-08-25] MEDS: SODIUM CHLOR 0.9% IV.SIG SCH (21:52)
[2017-08-25] MEDS: CEFTRIAXONE IV.SIG SCH (21:52)
[2017-08-25] MEDS: Enoxaparin Inj 40 MG/0.4 ML Syringe SQ SCH (23:18)
[2017-08-26] MEDS: Morphine Inj 4 MG/ML Vial IV.PUSH PRN ×4 (01:18→12:29)
[2017-08-26] MEDS: Gabapentin 300 MG Capsule PO SCH ×3 (05:04→21:45)
[2017-08-26] MEDS: Allopurinol 100 MG Tablet PO SCH (08:59)
[2017-08-26] MEDS: hydrALAZINE 25 MG Tablet PO SCH ×3 (08:59→17:24)
[2017-08-26] MEDS: Nystatin Liq 500,000 UNIT/5 ML UDC SWISH-SWAL SCH ×4 (08:59→21:45)
[2017-08-26] MEDS: Glimepiride 2 MG Tablet PO SCH ×2 (08:59→16:21)
[2017-08-26] MEDS: Carvedilol 12.5 MG Tablet PO SCH ×2 (08:59→21:45)
[2017-08-26] MEDS: Senna/Docusate Sodium 8.6/50 MG Tablet PO SCH ×2 (09:00→21:45)
[2017-08-26] MEDS: Insulin NovoLOG Aspart Correctional Sugar Inj SQ SCH ×4 (09:01→21:46)
[2017-08-26] MEDS ORDERED: Phenol 1.4% 180 ML Spray Bottle OROPHARYNG PRN (11:30)
--- NOTE | 2017-08-26 14:32 | P.PNIM ---
Subjective Interval history: Patient sleeping able to awake to voice then drifts off back to sleep offers no new concerns/complaints Physical Exam Vital signs: Vital Signs 08/25/17 14:38 08/25/17 16:00 08/25/17 18:29 Temperature Pulse Rate 92 H Respiratory Rate 18 20 Blood Pressure 144/79 H Pulse Oximetry 96 96 08/25/17 20:00 08/25/17 22:05 08/25/17 23:15 Temperature 98.3 F Pulse Rate 98 H Respiratory Rate 18 18 16 Blood Pressure 139/61 Pulse Oximetry 95 08/26/17 00:00 08/26/17 03:40 08/26/17 04:00 Temperature 98.1 F 97.7 F Pulse Rate 96 H 81 80 Respiratory Rate 20 20 Blood Pressure 149/70 H 144/65 H Pulse Oximetry 96 98 08/26/17 08:00 08/26/17 12:00 08/26/17 12:05 Temperature 97.8 F 97.2 F L Pulse Rate 79 91 H Respiratory Rate 18 22 Blood Pressure 134/59 L 138/69 Pulse Oximetry 95 95 96 Intake & Output 08/25/17 08/26/17 08/26/17 18:59 06:59 18:59 Intake Total 580 / 580 Output Total 1000 / 1000 1200 / 1200 Balance -1000 / -1000 -620 / -620 Weight 181.4 kg Intake: IV 100 / 100 Rocephin Inj 2,000 MG In NS Inj 100 / 100 100 ML @ 200 mls/hr IV.SIG Q24H [facility] Rx#:[id number] Oral 480 / 480 Output: Urine 1000 / 1000 1200 / 1200 Stool 0 / 0 0 / 0 Other: Post Void Residual 0 # Voids 3 # Incontinent Voids 0 # Urine Diapers 0 Narrative: General: NAD, sleeping able to awaken to voice then drifts off back to sleep Chest: CTA Cardiac: Regular Abd: +BS, soft ND/NT Ext: Right leg splinted no redness noted above the bandages. Bilateral LE edema Results - Labs CBC & Chem 7: 08/27/17 05:58 08/27/17 05:58 Laboratory Results - last 24 hr 08/25/17 08/25/17 08/26/17 17:54 20:23 05:02 POC Glucose 212 H 207 H 132 H 08/26/17 08/26/17 08:24 12:35 POC Glucose 167 H 196 H Microbiology 08/24/17 15:00 Tissue - Ankle Gram Stain - Final 08/24/17 15:00 Tissue - Ankle Wound Culture - Final Enterobacter cloacae 08/24/17 15:00 Tissue - Ankle Acid Fast Bacilli Smear - Final No acid fast bacilli seen - Procedures Right posterior Achilles incision and drainage 08/24/[address] Hull Assessment and Plan - Assessment (1) Rupture of right Achilles tendon Code(s): S86.011A - Strain of right Achilles tendon, initial encounter Status : Acute Plan: (1) Rupture of right Achilles tendon Code(s): S86.011A - Strain of right Achilles tendon, initial encounter Status : Acute Plan: Open Achilles rupture, right - Recent admission with Achilles rupture - Pt underwent open repair of right Achilles tendon rupture with flexor hallucis longus tendon transfer and gastrocnemius recession, right lower extremity on 07/24/[address] Murillo. - Per podiatry, pt will need to be strict non-weight bearing for 6-8 weeks. - Pt was noted to have increased swelling and pain in the RLE on 08/04 - LE Doppler US (08/04) --> Is negative for DVT - Refused dc to snf and was noncompliant with weight bearing instructions. - Pt was readmitted with infection at operative site on 08/16 - He was seen by podiatry in clinic on 08/16 and sent to ED - MRI right ankle (08/16): 1. Postoperative change at the distal Achilles and calcaneus. Increased signal within the posterior calcaneus can all be consistent with postoperative change. It would be difficult to rule out osteomyelitis. 2. Fluid seen around the Achilles tendon. More superiorly in the mid lower leg, there is a larger fluid collection with peripheral enhancement. There is also a thinner fluid collection seen more superiorly in the proximal lower leg around the lateral aspect of the soleus muscle. These fluid collections could be postoperative seromas. An abscess could have a similar appearance. - debra and Mehran (08/17) - Rocephin (08/17 - present) - Comgmt with ID & Podiatry - Pt had a previous outpt culture taken on 08/11 which grew out Enterobacter cloacae - Right posterior Achilles incision and drainage 08/24/[address] Hull - Intraoperative wound Cx (08/24) --> Enterobacter cloacae - awaiting final DC abx recommendations per ID - Plan to DC to SNF/rehab following hospitalization to ensure non-weight bearing of RLE and good recovery. Pt at risk for Right BKA. - DC Morphine - DVT prophylaxis with Lovenox (2) Obesity hypoventilation syndrome Code(s): E66.2 - Morbid (severe) obesity with alveolar hypoventilation Status : Chronic Plan: Hypercapnic respiratory insufficiency Obesity hypoventilation syndrome COPD - 2-D echocardiogram 07/23/17: - The left ventricular systolic function is mildly reduced with an estimated ejection fraction in the range of 45- 50%. - Mild infero-posterior hypokinesis - Mild concentric left ventricular hypertrophy. - The left atrial size is moderately dilated. - RHC completed (07/28) --> Class 2 Pulm HTN, PCW 23 - No Right heart strain, so sildenafil was stopped - Pt is noncompliant with CPAP - Pt still requiring 2L of supplemental O2 (3) COPD (chronic obstructive pulmonary disease) Code(s): J44.9 - Chronic obstructive pulmonary disease, unspecified Status: Chronic Plan: - chronic does not appear to be in acute exacerbation (4) Diabetes Code(s): E11.9 - Type 2 diabetes mellitus without complications Status: Chronic Plan: - Cont OHA and SSI. - Titrate as needed (5) HTN (hypertension) Code(s): I10 - Essential (primary) hypertension Status: Chronic Plan: Hypertension - cont current BP meds, including Procardia XL 60mg Q12H, Cozaar 50mg q12H, Hydralazine 50mg TID, Coreg 25mg BID - Hydralazine PO PRN (6) Anemia Code(s): D64.9 - Anemia, unspecified Status: Chronic Plan: - Pts H/H has slowly been declining. No noted active GIB - iron deficiency anemia - Hg 8.7 (08/16) - During the last admission the pt was transfused with 2 units PRBCs (08/10) - During recent admission pt underwent evaluation with EGD/Colonoscopy (08/11/17 ) with Dr. Mccormick - int/ext hemorrhoids - sigmoid diverticulosis - esophagitis - gastric biopsies taken, results pending - Repeat labs on 08/21/17 with Hgb 8.3/Hct 24.6 -> 7.7/23.5 (/) -> 7.8/24.2 - Iron studies 08/08/17 Iron 26, TIBC 244, % saturation 10.7, ferritin 246 - will recheck iron studies, folate, thiamine and B12 - Venofer in AM (7) CAD (coronary artery disease) Code(s): I25.10 - Atherosclerotic heart disease of [place] coronary artery without angina pectoris Status: Chronic Plan: CAD (coronary artery disease) Recent history of pulmonary embolism - Patient had a PE approximately 8 months ago and was on Coumadin for until the cardiac cauterization 06/17/17 - Patient with recent cardiac catheterization with PCI 06/17/17 - After catheterization patient's Coumadin was DC'd and he was started on Aspirin and Plavix - Continue patient's Aspirin 81 mg daily, Plavix 75 mg PO daily, Atorvastatin 40 mg PO QHS and Coreg BID (8) Anxiety and depression Code(s): F41.9 - Anxiety disorder, unspecified; F32.9 - Major depressive disorder, single episode, unspecified Status: Chronic Plan: - Cont. Paxil 20mg daily (2) Obesity hypoventilation syndrome Code(s): E66.2 - Morbid (severe) obesity with alveolar hypoventilation Status : Chronic (3) COPD (chronic obstructive pulmonary disease) Code(s): J44.9 - Chronic obstructive pulmonary disease, unspecified Status: Chronic (4) Diabetes Code(s): E11.9 - Type 2 diabetes mellitus without complications Status: Chronic (5) HTN (hypertension) Code(s): I10 - Essential (primary) hypertension Status: Chronic (6) Anemia Code(s): D64.9 - Anemia, unspecified Status: Chronic (7) CAD (coronary artery disease) Code(s): I25.10 - Atherosclerotic heart disease of [place] coronary artery without angina pectoris Status: Chronic (8) History of pulmonary embolism Code(s): Z86.711 - Personal history of pulmonary embolism Status: Chronic (9) Anxiety and depression Code(s): F41.9 - Anxiety disorder, unspecified; F32.9 - Major depressive disorder, single episode, unspecified Status: Chronic - Plan Patient examined. Assessment and plan formulated with Sally Mathias PA-C. I agree with the above. (1) Rupture of right Achilles tendon Qualifiers: Encounter type: subsequent encounter Qualified Code(s): S86.011D - Strain of right Achilles tendon, subsequent encounter (4) Diabetes Qualifiers: Diabetes mellitus type: type 2
--- NOTE | 2017-08-26 20:30 | P.PNPOD ---
Subjective Interval history: Patient seen bedside. Denies any nausea vomiting fevers or chills. States he is highly considering rehab, however he is unable to afford the daily co-pay. Therefore at this time he is refusing rehab and requesting to be sent home. Physical Exam Vital signs: Vital Signs 08/25/17 22:05 08/25/17 23:15 08/26/17 00:00 Temperature 98.1 F Pulse Rate 96 H Respiratory Rate 18 16 20 Blood Pressure 149/70 H Pulse Oximetry 96 08/26/17 03:40 08/26/17 04:00 08/26/17 08:00 Temperature 97.7 F 97.8 F Pulse Rate 81 80 79 Respiratory Rate 20 18 Blood Pressure 144/65 H 134/59 L Pulse Oximetry 98 95 08/26/17 12:00 08/26/17 12:05 08/26/17 16:00 Temperature 97.2 F L 98.2 F Pulse Rate 92 H 92 H Respiratory Rate 22 18 Blood Pressure 138/69 151/94 H Pulse Oximetry 95 96 93 L 08/26/17 17:26 Temperature Pulse Rate Respiratory Rate Blood Pressure Pulse Oximetry 93 L Intake & Output 08/26/17 08/26/17 08/27/17 06:59 18:59 06:59 Intake Total 580 / 580 3200 / 3200 Output Total 1200 / 1200 1400 / 1400 Balance -620 / -620 1800 / 1800 Weight 181.4 kg Intake: IV 100 / 100 Rocephin Inj 2,000 MG In NS Inj 100 / 100 100 ML @ 200 mls/hr IV.SIG Q24H [facility] Rx#:[id number] Oral 480 / 480 3200 / 3200 Output: Urine 1200 / 1200 1400 / 1400 Stool 0 / 0 Other: # Bowel Movements 0 Narrative: Lower extremity physical exam: Vascular: Dorsalis pedis 2/4, posterior tibial 2/4. Capillary refill time within normal limits to digits 5 bilateral foot. Edema present right lower extremity. Neuro: Gross sensation intact to bilateral lower extremity. Pinpoint sensation intact. No hyperalgesia noted to bilateral lower extremity Dermatology: Incision to posterior ankle and leg well-healed distally and proximally with sutures intact and skin well coapted. Sutures intact to distal aspect of posterior Achilles with skin well coapted. Mild drainage noted with no maceration. Decreasing in resolving erythema to posterior Achilles. Superficial ulceration noted to right posterior plantar heel with granular base. Musculoskeletal: Tender to palpation to right posterior ankle and leg at Achilles tendon. Medications and Allergies Active Medications: Active Medications Hydrocodone Bitart/Acetaminophen (Warrior 7.5/325) 1 tab PO Q4H PRN PRN Reason: pain 3-10 Last Admin: 08/26/17 17:23 Dose: 1 tab Al Hydroxide/Mg Hydroxide (Milk Of Magnelysia Liq) 30 ml PO Q12H PRN PRN Reason: MILD CONSTIPATION Allopurinol (Zyloprim) 100 mg PO DAILY [facility] Last Admin: 08/26/17 08:59 Dose: 100 mg Aspirin (Ecotrin) 81 mg PO DAILY [facility] Last Admin: 08/26/17 08:59 Dose: 81 mg Atorvastatin Calcium (Lipitor) 40 mg PO HS [facility] Last Admin: 08/25/17 21:55 Dose: 40 mg Benzocaine/Menthol (Chloraseptic Sore Throat Lozenge) 1 lozenge BUCCAL Q2HR PRN PRN Reason: sore throat Bisacodyl (Dulcolax Supp) 10 mg RECTAL DAILY PRN PRN Reason: SEVERE CONSTIPATION Carvedilol (Coreg) 25 mg PO BID [facility] Last Admin: 08/26/17 08:59 Dose: 25 mg Clopidogrel Bisulfate (Plavix) 75 mg PO DAILY [facility] Last Admin: 08/26/17 08:59 Dose: 75 mg Dextrose (D50w Vial) 50 ml IV.PUSH UNSCH PRN PRN Reason: PER HYPOGLYCEMIA PROTOCOL Enoxaparin Sodium (Lovenox Inj) 40 mg SQ Q24H [facility] Last Admin: 08/25/17 23:18 Dose: 40 mg Furosemide (Lasix Inj) 40 mg IV.PUSH BID@0900,1800 [facility] Last Admin: 08/26/17 18:17 Dose: 40 mg Gabapentin (Neurontin) 300 mg PO Q8HR [facility] Last Admin: 08/26/17 14:35 Dose: 300 mg Glimepiride (Amaryl) 2 mg PO BIDAC [facility] Last Admin: 08/26/17 16:21 Dose: 2 mg Glucagon (Glucagon Inj) 1 mg OTHER PRN PRN PRN Reason: for Hypoglycemia Protocol Hydralazine HCl (Apresoline) 50 mg PO TID [facility] Last Admin: 08/26/17 17:24 Dose: 50 mg Hydralazine HCl (Apresoline) 25 mg PO Q8HR PRN PRN Reason: SBP >170 Lactated Ringer's (Lr 1000 Ml Inj) 1,000 mls @ 30 mls/hr IV.SIG .Q24H [facility] Stop: 08/27/17 05:53 Last Admin: 08/26/17 05:03 Dose: Not Given Sodium Chloride (Ns Inj) 500 mls @ 30 mls/hr IV.SIG .Q10H [facility] Stop: 08/27/17 05:53 Iron Sucrose 200 mg/ Sodium (Chloride) 110 mls @ 110 mls/hr IV.SIG DAILY [facility] Stop: 08/29/17 09:59 Ceftriaxone Sodium 2,000 mg/ (Sodium Chloride) 100 mls @ 200 mls/hr IV.SIG Q24H [facility] Last Infusion: 08/25/17 23:22 Dose: Infused Insulin Aspart (Novolog Insulin Suppl Scale Inj) 0 unit SQ ACHS [facility]; Protocol Last Admin: 08/26/17 18:16 Dose: 4 unit Lactulose (Lactulose Liq) 30 ml PO DAILY PRN PRN Reason: SEVERE CONSTIPATION Losartan Potassium (Cozaar) 50 mg PO Q12HR [facility] Last Admin: 08/26/17 09:00 Dose: 50 mg Naloxone HCl (Narcan Inj) 0.4 mg IV.PUSH UNSCH PRN PRN Reason: SEE LABEL COMMENTS Nifedipine (Procardia Xl) 60 mg PO Q12HR [facility] Last Admin: 08/26/17 08:59 Dose: 60 mg Nystatin (Mycostatin Liq) 5 ml SWISH-SWAL QID [facility] Last Admin: 08/26/17 17:24 Dose: 5 ml Pantoprazole Sodium (Protonix) 40 mg PO DAILY [facility] Last Admin: 08/26/17 08:59 Dose: 40 mg Paroxetine HCl (Paxil) 20 mg PO DAILY [facility] Last Admin: 08/26/17 09:00 Dose: 20 mg Povidone Iodine (Betadine 5% Antisepsis Kit) 1 applicatio EACH [employer]ARE [employer] [facility] Stop: 08/27/17 05:53 Senna/Docusate Sodium (Ely-Colace) 1 tab PO BID [facility] Last Admin: 08/26/17 09:00 Dose: 1 tab Sennosides (Senokot) 17.2 mg PO Q12H PRN PRN Reason: MODERATE CONSTIPATION Sodium Chloride ([place] Nasal [place]) 1 spray EACH NARE Q6H PRN PRN Reason: FOR DRYNESS Last Admin: 08/22/17 13:18 Dose: 1 spray Sodium Chloride (Ns Flush) 2 ml IV.FLUSH UNSCH PRN PRN Reason: FLUSH AFTER USING IV ACCESS Sodium Chloride (Ns Flush) 2 ml IV.FLUSH BID [facility] Last Admin: 08/26/17 09:02 Dose: 2 ml Temazepam (Restoril) 15 mg PO HS PRN PRN Reason: INSOMNIA Throat Lozenges (Chloraseptic [place]) 2 spray OROPHARYNG Q2H PRN PRN Reason: sore throat Allergies Allergy/AdvReac Type Severity Reaction Status Date / Time codeine Allergy Severe Itching Verified 08/16/17 19:14 quetiapine Allergy Intermediate Hallucinati Verified 08/16/17 19:14 ons tramadol Allergy Unknown UNKNOWN Verified 08/20/17 10:36 clonidine AdvReac Severe ARNDT, dry Verified 08/20/17 10:36 mouth, "felt drunk" lisinopril AdvReac Unknown abnormal Verified 08/16/17 19:14 labs K level Home Medications Medication Instructions Recorded Confirmed Type allopurinol 100 mg PO DAILY 08/20/17 08/20/17 History aspirin 81 mg PO DAILY 08/20/17 08/20/17 History atorvastatin 40 mg PO HS 08/20/17 08/20/17 History carvedilol 25 mg PO BID 08/20/17 08/20/17 History clindamycin HCl 300 mg PO Q6H 08/20/17 08/20/17 History clopidogrel 75 mg PO DAILY 08/20/17 08/20/17 History furosemide 40 mg PO DAILY 08/20/17 08/20/17 History gabapentin 300 mg PO Q8H 08/20/17 08/20/17 History glimepiride 2 mg PO BIDAC 08/20/17 08/20/17 History hydralazine 50 mg PO TID 08/20/17 08/20/17 History hydrocodone-acetaminophen 1 tab PO Q4H PRN 08/20/17 08/20/17 History insulin aspart U-100 [Novolog 1 sliding scale dose SUB-Q 08/20/17 08/20/17 History U-100 Insulin aspart] DIRECTED losartan 50 mg PO Q12H 08/20/17 08/20/17 History metformin 750 mg PO BID 08/20/17 08/20/17 History nifedipine 60 mg PO Q12H 08/20/17 08/20/17 History nystatin 5 ml PO QID 08/20/17 08/20/17 History pantoprazole 40 mg PO DAILY 08/20/17 08/20/17 History paroxetine HCl 20 mg PO DAILY 08/20/17 08/20/17 History Results - Labs CBC & Chem 7: 08/25/17 06:37 08/25/17 06:37 Laboratory Results - last 24 hr 08/25/17 08/26/17 08/26/17 20:23 05:02 08:24 POC Glucose 207 H 132 H 167 H 08/26/17 08/26/17 12:35 17:29 POC Glucose 196 H 209 H Microbiology 08/24/17 15:00 Tissue - Ankle Gram Stain - Final 08/24/17 15:00 Tissue - Ankle Wound Culture - Final Enterobacter cloacae 08/24/17 15:00 Tissue - Ankle Acid Fast Bacilli Smear - Final No acid fast bacilli seen - Procedures Right posterior Achilles incision and drainage 08/24/[address] Hull Assessment and Plan - Plan 47-year-old male status post Achilles tendon repair with gastroc lengthening to right lower extremity with distal draining sinus Status post right Achilles incision and drainage date of surgery 08/24 Patient examined evaluated with all questions answered Awaiting final OR cultures OR cultures growing gram-negative hiral Discussed with Dr. Morris and Dr. Cordero Patient to remain nonweightbearing to right lower extremity He is to elevate right lower extremity at all times Dressings changed, Xeroform, 4 x 4's, Missael and Ronnell applied [employer] to apply splint to right lower extremity Patient to follow-up with Dr. Delfino Murillo once discharged While patient is in house we will continue to follow Improvement noted to left first metatarsophalangeal joint with decreased erythema and warmth X-rays to left foot with Aldo's sign noted to medial eminence suggestive of gout Patient reports no pain and clinical improvement noted, will monitor progress
[2017-08-26] MEDS: SODIUM CHLOR 0.9% IV.SIG SCH (21:44)
[2017-08-26] MEDS: CEFTRIAXONE IV.SIG SCH (21:44)
[2017-08-26 21:54] LABS: % Iron Saturation 9.6 % (20-50)
[2017-08-26 22:08] LABS: Folate 7.9 ng/mL (3.1-17.5)
[2017-08-26] MEDS: Enoxaparin Inj 40 MG/0.4 ML Syringe SQ SCH (23:00)
[2017-08-27] MEDS: Temazepam 15 MG Capsule PO PRN (03:17)
[2017-08-27 06:24] LABS: Baso % (Auto) 0.9 % (0.0-2.0); Eos # (Auto) 0.1 th/mm3 (0.0-0.4); Eos % (Auto) 2.2 % (0.0-4.0); Hematocrit 23.5 % (39.0-51.0); Hemoglobin 7.6 gm/dL (13.0-17.0); Lymph # (Auto) 0.9 th/mm3 (1.0-4.8); Mean Corpuscular HGB Conc 32.4 % (32.0-36.0); Mean Corpuscular Hemoglobin 26.1 pg (27.0-34.0); Mean Corpuscular Volume 80.6 fL (80.0-100.0); Mean Platelet Volume 6.9 fL (7.0-11.0); Mono # (Auto) 0.9 th/mm3 (0.0-0.9); Mono % (Auto) 16.6 % (0.0-8.0); Neut # (Auto) 3.6 th/mm3 (1.8-7.7); Neut % (Auto) 64.3 % (16.0-70.0); Platelet Count 278 th/mm3 (150-450); Red Blood Count 2.91 mil/mm3 (4.50-5.90); Red Cell Distribution Width 14.9 % (11.6-17.2); White Blood Count 5.6 th/mm3 (4.0-11.0)
[2017-08-27 06:48] LABS: Calcium 8.4 mg/dL (8.5-10.1); Carbon Dioxide 29.2 meq/L (21.0-32.0); Potassium 4.8 meq/L (3.5-5.1)
[2017-08-27] MEDS: Senna/Docusate Sodium 8.6/50 MG Tablet PO SCH ×2 (08:37→21:14)
[2017-08-27] MEDS: Carvedilol 12.5 MG Tablet PO SCH ×2 (08:37→21:15)
[2017-08-27] MEDS: hydrALAZINE 25 MG Tablet PO SCH ×3 (08:38→17:26)
[2017-08-27] MEDS: Allopurinol 100 MG Tablet PO SCH (08:38)
[2017-08-27] MEDS: Gabapentin 300 MG Capsule PO SCH ×3 (08:38→21:14)
[2017-08-27] MEDS: Glimepiride 2 MG Tablet PO SCH ×2 (08:39→17:26)
[2017-08-27] MEDS: Nystatin Liq 500,000 UNIT/5 ML UDC SWISH-SWAL SCH ×4 (08:39→21:16)
[2017-08-27] MEDS: Insulin NovoLOG Aspart Correctional Sugar Inj SQ SCH ×5 (09:11→21:17)
[2017-08-27] MEDS ORDERED: Sodium Chlor 0.9% Inj 250 ML IV.SIG SCH ×3 (13:00→16:00)
[2017-08-27] MEDS ORDERED: Iron Sucrose Inj 200 MG in Sodium Chlor 0.9% Inj 100 ML IV.SIG SCH (15:00)
--- NOTE | 2017-08-27 16:11 | P.PNIM ---
Subjective Interval history: Pt c/o edema at limbs. Physical Exam Vital signs: Vital Signs 08/26/17 17:26 08/26/17 20:00 08/27/17 00:00 Temperature 97.8 F 98.1 F Pulse Rate 82 77 Respiratory Rate 18 16 Blood Pressure 144/70 H 140/64 Pulse Oximetry 93 L 94 L 95 08/27/17 04:00 08/27/17 08:00 08/27/17 12:00 Temperature 97.7 F 97.1 F L Pulse Rate 93 H 87 83 Respiratory Rate 20 20 Blood Pressure 188/102 H 131/66 Pulse Oximetry 90 L 91 L 08/27/17 14:30 Temperature Pulse Rate Respiratory Rate 20 Blood Pressure Pulse Oximetry Intake & Output 08/26/17 08/27/17 08/27/17 18:59 06:59 18:59 Intake Total 3200 / 3200 Output Total 1400 / 1400 Balance 1800 / 1800 Intake: Oral 3200 / 3200 Output: Urine 1400 / 1400 Other: Date of Last Bowel Movement 08/26/17 # Bowel Movements 0 Narrative: General: NAD Chest: CTA Cardiac: Regular Abd: +BS, soft ND/NT Ext: Right leg splinted no redness noted above the bandages. Bilateral LE edema Results - Labs CBC & Chem 7: 08/28/17 07:50 08/28/17 07:50 Laboratory Results - last 24 hr 08/26/17 08/26/17 08/26/17 17:29 21:05 21:05 WBC RBC Hgb Hct MCV MCH MCHC RDW Plt Count MPV Neut % (Auto) Lymph % (Auto) [place] % (Auto) Eos % (Auto) Baso % (Auto) Neut # (Auto) Lymph # (Auto) [place] # (Auto) Eos # (Auto) Baso # (Auto) WBC Differential Differential Comment Retic Count Absolute Retic Sodium Potassium Chloride Carbon Dioxide Anion Gap BUN Creatinine Estimated GFR POC Glucose 209 H Random Glucose Calcium Iron 22 L TIBC 230 L % Saturation 9.6 L Ferritin Total Protein (PEP) Vitamin B12 515 Folate 7.9 MTS Gel Crossmatch 08/26/17 08/27/17 08/27/17 21:23 05:58 05:58 WBC 5.6 RBC 2.91 L Hgb 7.6 L Hct 23.5 L MCV 80.6 MCH 26.1 L MCHC 32.4 RDW 14.9 Plt Count 278 MPV 6.9 L Neut % (Auto) 64.3 Lymph % (Auto) 16.0 [place] % (Auto) 16.6 H Eos % (Auto) 2.2 Baso % (Auto) 0.9 Neut # (Auto) 3.6 Lymph # (Auto) 0.9 L [place] # (Auto) 0.9 Eos # (Auto) 0.1 Baso # (Auto) 0.0 WBC Differential . Differential Comment Auto diff final Retic Count Absolute Retic Sodium 132 L Potassium 4.8 Chloride 94 L Carbon Dioxide 29.2 Anion Gap 9 BUN 37 H Creatinine 1.39 H Estimated GFR 55 L POC Glucose 263 H Random Glucose 163 H Calcium 8.4 L Iron TIBC % Saturation Ferritin Total Protein (PEP) Vitamin B12 Folate MTS Gel Crossmatch 08/27/17 08/27/17 08/27/17 08:36 11:35 11:35 WBC RBC Hgb Hct MCV MCH MCHC RDW Plt Count MPV Neut % (Auto) Lymph % (Auto) [place] % (Auto) Eos % (Auto) Baso % (Auto) Neut # (Auto) Lymph # (Auto) [place] # (Auto) Eos # (Auto) Baso # (Auto) WBC Differential Differential Comment Retic Count 3.0 Absolute Retic 82.0 Sodium Potassium Chloride Carbon Dioxide Anion Gap BUN Creatinine Estimated GFR POC Glucose 182 H Random Glucose Calcium Iron TIBC % Saturation Ferritin 154 Total Protein (PEP) Vitamin B12 Folate MTS Gel Crossmatch 08/27/17 08/27/17 08/27/17 11:35 12:42 15:23 WBC RBC Hgb Hct MCV MCH MCHC RDW Plt Count MPV Neut % (Auto) Lymph % (Auto) [place] % (Auto) Eos % (Auto) Baso % (Auto) Neut # (Auto) Lymph # (Auto) [place] # (Auto) Eos # (Auto) Baso # (Auto) WBC Differential Differential Comment Retic Count Absolute Retic Sodium Potassium Chloride Carbon Dioxide Anion Gap BUN Creatinine Estimated GFR POC Glucose 208 H Random Glucose Calcium Iron TIBC % Saturation Ferritin Total Protein (PEP) 5.4 L Vitamin B12 Folate MTS Gel Crossmatch See Detail Microbiology 08/24/17 15:00 Tissue - Ankle Gram Stain - Final 08/24/17 15:00 Tissue - Ankle Wound Culture - Final Enterobacter cloacae - Procedures Right posterior Achilles incision and drainage 08/24/[address] Hull Assessment and Plan - Assessment (1) Rupture of right Achilles tendon Code(s): S86.011A - Strain of right Achilles tendon, initial encounter Status : Acute Plan: (1) Rupture of right Achilles tendon Code(s): S86.011A - Strain of right Achilles tendon, initial encounter Status : Acute Plan: Open Achilles rupture, right - Recent admission with Achilles rupture - Pt underwent open repair of right Achilles tendon rupture with flexor hallucis longus tendon transfer and gastrocnemius recession, right lower extremity on 07/24/[address] Murillo. - Per podiatry, pt will need to be strict non-weight bearing for 6-8 weeks. - Pt was noted to have increased swelling and pain in the RLE on 08/04 - LE Doppler US (08/04) --> Is negative for DVT - Refused dc to snf and was noncompliant with weight bearing instructions. - Pt was readmitted with infection at operative site on 08/16 - He was seen by podiatry in clinic on 08/16 and sent to ED - MRI right ankle (08/16): 1. Postoperative change at the distal Achilles and calcaneus. Increased signal within the posterior calcaneus can all be consistent with postoperative change. It would be difficult to rule out osteomyelitis. 2. Fluid seen around the Achilles tendon. More superiorly in the mid lower leg, there is a larger fluid collection with peripheral enhancement. There is also a thinner fluid collection seen more superiorly in the proximal lower leg around the lateral aspect of the soleus muscle. These fluid collections could be postoperative seromas. An abscess could have a similar appearance. - vanco and Zosyn (08/17) - Rocephin (08/17 - present) - Comgmt with ID & Podiatry - Pt had a previous outpt culture taken on 08/11 which grew out Enterobacter cloacae - Right posterior Achilles incision and drainage 08/24/[address] Hull - Intraoperative wound Cx (08/24) --> Enterobacter cloacae - awaiting final DC abx recommendations per ID - Plan to DC to SNF/rehab following hospitalization to ensure non-weight bearing of RLE and good recovery. Pt at risk for Right BKA. - DC Morphine - DVT prophylaxis with Lovenox - Pt now refusing SNF d/t cost. Will need to clarify with CP Case Mgmt (2) Obesity hypoventilation syndrome Code(s): E66.2 - Morbid (severe) obesity with alveolar hypoventilation Status : Chronic Plan: Hypercapnic respiratory insufficiency Obesity hypoventilation syndrome COPD - 2-D echocardiogram 07/23/17: - The left ventricular systolic function is mildly reduced with an estimated ejection fraction in the range of 45- 50%. - Mild infero-posterior hypokinesis - Mild concentric left ventricular hypertrophy. - The left atrial size is moderately dilated. - RHC completed (07/28) --> Class 2 Pulm HTN, PCW 23 - No Right heart strain, so sildenafil was stopped - Pt is noncompliant with CPAP - Pt still requiring 2L of supplemental O2 (3) COPD (chronic obstructive pulmonary disease) Code(s): J44.9 - Chronic obstructive pulmonary disease, unspecified Status: Chronic Plan: - chronic does not appear to be in acute exacerbation (4) Diabetes Code(s): E11.9 - Type 2 diabetes mellitus without complications Status: Chronic Plan: - Cont OHA and SSI. - Titrate as needed (5) HTN (hypertension) Code(s): I10 - Essential (primary) hypertension Status: Chronic Plan: Hypertension - cont current BP meds, including Procardia XL 60mg Q12H, Cozaar 50mg q12H, Hydralazine 50mg TID, Coreg 25mg BID - Hydralazine PO PRN (6) Anemia Code(s): D64.9 - Anemia, unspecified Status: Chronic Plan: - Pts H/H has slowly been declining. No noted active GIB - iron deficiency anemia - Hg 8.7 (08/16) - During the last admission the pt was transfused with 2 units PRBCs (08/10) - During recent admission pt underwent evaluation with EGD/Colonoscopy (08/11/17 ) with Dr. Mccormick - int/ext hemorrhoids - sigmoid diverticulosis - esophagitis - gastric biopsies taken, results pending - Repeat labs on 08/21/17 with Hgb 8.3/Hct 24.6 -> 7.7/23.5 (08/24) -> 7.8/24.2, 7.6 (08/27) - Iron studies 08/08/17 Iron 26, TIBC 244, % saturation 10.7, ferritin 246 - ferritin 154 (08/27), retic 82 (08/27); b12 515, folate 7.9 (08/26) - case informally d/w Hematology - since ferritin > 100, unlikely d/t ANAHI - cancel Venofer - obtain peripheral smear, SPEP, UPEP - consider obtaining bone marrow - transfuse 2 units PRBCs - repeat Hg in AM (7) CAD (coronary artery disease) Code(s): I25.10 - Atherosclerotic heart disease of [place] coronary artery without angina pectoris Status: Chronic Plan: CAD (coronary artery disease) Recent history of pulmonary embolism - Patient had a PE approximately 8 months ago and was on Coumadin for until the cardiac cauterization 06/17/17 - Patient with recent cardiac catheterization with PCI 06/17/17 - After catheterization patient's Coumadin was DC'd and he was started on Aspirin and Plavix - Continue patient's Aspirin 81 mg daily, Plavix 75 mg PO daily, Atorvastatin 40 mg PO QHS and Coreg BID (8) Anxiety and depression Code(s): F41.9 - Anxiety disorder, unspecified; F32.9 - Major depressive disorder, single episode, unspecified Status: Chronic Plan: - Cont. Paxil 20mg daily (2) Obesity hypoventilation syndrome Code(s): E66.2 - Morbid (severe) obesity with alveolar hypoventilation Status : Chronic Plan: Hypercapnic respiratory insufficiency Obesity hypoventilation syndrome COPD - 2-D echocardiogram 07/23/17: - The left ventricular systolic function is mildly reduced with an estimated ejection fraction in the range of 45- 50%. - Mild infero-posterior hypokinesis - Mild concentric left ventricular hypertrophy. - The left atrial size is moderately dilated. - RHC completed (07/28) --> Class 2 Pulm HTN, PCW 23 - No Right heart strain, so sildenafil was stopped - Pt is noncompliant with CPAP - Pt still requiring 2L of supplemental O2 - titrate as tolerated to maintain saturation > or equal to 92% (3) COPD (chronic obstructive pulmonary disease) Code(s): J44.9 - Chronic obstructive pulmonary disease, unspecified Status: Chronic Plan: - See above (4) Diabetes Code(s): E11.9 - Type 2 diabetes mellitus without complications Status: Chronic Plan: - Cont OHA and SSI. - Titrate as needed (5) HTN (hypertension) Code(s): I10 - Essential (primary) hypertension Status: Chronic Plan: Hypertension - cont current BP meds, including Procardia XL 60mg Q12H, Cozaar 50mg q12H, Hydralazine 50mg TID, Coreg 25mg BID - Hydralazine PO PRN - BP reading in the 140-160s systolic, likely pain is contributing to BP elevation (6) Anemia Code(s): D64.9 - Anemia, unspecified Status: Chronic Plan: - Pts H/H has slowly been declining. No noted active GIB - iron deficiency anemia - Hg 8.7 (08/16) - During the last admission the pt was transfused with 2 units PRBCs (08/10) - During recent admission pt underwent evaluation with EGD/Colonoscopy (08/11/17 ) with Dr. Mccormick - int/ext hemorrhoids - sigmoid diverticulosis - esophagitis - gastric biopsies taken, results pending - Repeat labs on 08/22/17 with Hgb 8.8/Hct 26.7 (7) CAD (coronary artery disease) Code(s): I25.10 - Atherosclerotic heart disease of [place] coronary artery without angina pectoris Status: Chronic Plan: CAD (coronary artery disease) Recent history of pulmonary embolism - Patient had a PE approximately 8 months ago and was on Coumadin for until the cardiac cauterization 06/17/17 - Patient with recent cardiac catheterization with PCI 06/17/17 - After catheterization patient's Coumadin was DC'd and he was started on Aspirin and Plavix - Continue patient's Aspirin 81 mg daily, Plavix 75 mg PO daily, Atorvastatin 40 mg PO QHS and Coreg BID (8) History of pulmonary embolism Code(s): Z86.711 - Personal history of pulmonary embolism Status: Chronic Plan: - See above (9) Anxiety and depression Code(s): F41.9 - Anxiety disorder, unspecified; F32.9 - Major depressive disorder, single episode, unspecified Status: Chronic Plan: - Cont. Paxil 20mg daily - Plan Patient examined. Assessment and plan formulated with Sally Mathias PA-C. I agree with the above. (1) Rupture of right Achilles tendon Qualifiers: Encounter type: subsequent encounter Qualified Code(s): S86.011D - Strain of right Achilles tendon, subsequent encounter (4) Diabetes Qualifiers: Diabetes mellitus type: type 2
--- NOTE | 2017-08-27 17:20 | XR ---
EXAM DATE: 08/27/2017 5:18 PM EDT AGE/SEX: 47 years / Male INDICATIONS: Shortness of breath. CLINICAL DATA: This is the patient's subsequent encounter. Patient reports that signs and symptoms h ave been present for 1 week and indicates a pain score of 5/10. MEDICAL/SURGICAL HISTORY: . Hypertension. Irregular heart rate. Gout. Diabetes. Depression. Anx iety. MRSA. Peripheral neuropathy. COPD. Acute renal failure. Renal calculi. Morbid obesity. Osteopor osis . . Tonsillectomy. Anal fissure repair. Left inner thigh abscess removal. Right Achilles repai r. Coronary artery stent. COMPARISON: [facility] – [place], CHEST SINGLE AP, 08/16/2017. . FINDINGS: There is cardiomegaly and mild basilar airspace disease that may represent mild edema. No significant effusion. No pneumothorax. CONCLUSION: Cardiomegaly with basilar airspace disease most characteristic of mild pulmonary edema. Electronically signed by: Bar Kramer MD 08/27/2017 5:19 PM EDT
[2017-08-27] MEDS: CEFTRIAXONE IV.SIG SCH (21:13)
[2017-08-27] MEDS: SODIUM CHLOR 0.9% IV.SIG SCH (21:13)
[2017-08-28] MEDS: Temazepam 15 MG Capsule PO PRN ×2 (00:12→20:58)
[2017-08-28] MEDS: Enoxaparin Inj 40 MG/0.4 ML Syringe SQ SCH ×2 (00:13→22:05)
[2017-08-28] MEDS: Gabapentin 300 MG Capsule PO SCH ×3 (06:34→21:49)
[2017-08-28] MEDS: Nystatin Liq 500,000 UNIT/5 ML UDC SWISH-SWAL SCH ×4 (08:55→20:52)
[2017-08-28] MEDS: Carvedilol 12.5 MG Tablet PO SCH ×2 (08:56→20:50)
[2017-08-28] MEDS: Allopurinol 100 MG Tablet PO SCH (08:56)
[2017-08-28] MEDS: Senna/Docusate Sodium 8.6/50 MG Tablet PO SCH ×2 (08:56→20:51)
[2017-08-28] MEDS: hydrALAZINE 25 MG Tablet PO SCH ×3 (08:56→18:12)
[2017-08-28] MEDS: Glimepiride 2 MG Tablet PO SCH ×2 (08:57→18:13)
[2017-08-28] MEDS: Insulin NovoLOG Aspart Correctional Sugar Inj SQ SCH ×4 (08:57→20:49)
[2017-08-28 09:34] LABS: Baso % (Auto) 0.9 % (0.0-2.0); Eos # (Auto) 0.1 th/mm3 (0.0-0.4); Eos % (Auto) 2.1 % (0.0-4.0); Hematocrit 26.3 % (39.0-51.0); Hemoglobin 8.5 gm/dL (13.0-17.0); Lymph # (Auto) 0.9 th/mm3 (1.0-4.8); Lymph % (Auto) 15.5 % (9.0-44.0); Mean Corpuscular HGB Conc 32.4 % (32.0-36.0); Mean Corpuscular Hemoglobin 25.9 pg (27.0-34.0); Mean Corpuscular Volume 79.8 fL (80.0-100.0); Mean Platelet Volume 7.2 fL (7.0-11.0); Mono # (Auto) 0.9 th/mm3 (0.0-0.9); Mono % (Auto) 16.2 % (0.0-8.0); Neut # (Auto) 3.6 th/mm3 (1.8-7.7); Neut % (Auto) 65.3 % (16.0-70.0); Platelet Count 289 th/mm3 (150-450); Red Blood Count 3.29 mil/mm3 (4.50-5.90); Red Cell Distribution Width 15.1 % (11.6-17.2); White Blood Count 5.5 th/mm3 (4.0-11.0)
[2017-08-28 09:51] LABS: Calcium 8.5 mg/dL (8.5-10.1); Carbon Dioxide 29.2 meq/L (21.0-32.0); Magnesium 1.9 mg/dL (1.5-2.5); Potassium 4.7 meq/L (3.5-5.1)
[2017-08-28 10:41] LABS: Eosinophils 1 % (0-4); Lymphocytes 16 % (9-44); Monocytes 11 % (0-8); Myelocytes 2 % (0-0)
[2017-08-28 10:42] LABS: Ovalocytes 1+; Platelet Estimate Normal (Normal); Platelet Morphology Normal (Normal)
--- NOTE | 2017-08-28 14:50 | P.PNIM ---
Subjective Interval history: Pt c/o continued limb edema involving legs and arms. Pt also c/o abdominal swelling and scrotal edema. Pt's sore throat has resolved. Physical Exam Vital signs: Vital Signs 08/27/17 16:00 08/27/17 18:00 08/27/17 18:04 Temperature 97.6 F Pulse Rate 77 Respiratory Rate 20 Blood Pressure 126/64 Pulse Oximetry 91 L 93 L 91 L 08/27/17 20:00 08/27/17 21:45 08/27/17 22:05 Temperature 97.5 F L 97.8 F 98.0 F Pulse Rate 82 83 91 H Respiratory Rate 19 20 20 Blood Pressure 131/64 156/79 H Pulse Oximetry 94 L 08/28/17 00:00 08/28/17 01:46 08/28/17 04:00 Temperature 97.8 F 97.8 F 97.7 F Pulse Rate 91 H 91 H 93 H Respiratory Rate 20 20 17 Blood Pressure 162/77 H 162/77 H 148/70 H Pulse Oximetry 94 L 92 L 08/28/17 05:12 08/28/17 08:00 08/28/17 12:00 Temperature 97.4 F L 97.7 F 97.8 F Pulse Rate 91 H 88 86 Respiratory Rate 20 18 22 Blood Pressure 154/82 H 153/85 H 141/81 H Pulse Oximetry 94 L 92 L 94 L Intake & Output 08/27/17 08/28/17 08/28/17 18:59 06:59 18:59 Intake Total 480 / 480 1060 / 1060 Output Total 1800 / 1800 2024 Balance -1320 / -1320 -965 / -965 Weight 181.7 kg Intake: Oral 480 / 480 240 / 240 Other 20 / 20 Rbc As-3 Leukoreduced Unit 20 / 20 [id number] Intake (Blood Product) Amt 800 / 800 Rbc As-3 Leukoreduced Unit 400 / 400 [id number] Rbc As-3 Leukoreduced Unit 400 / 400 [id number] Output: Urine 1800 / 1800 2024 Other: Other Intake Source Rbc As-3 Leukoreduced Unit Saline Solution [id number] # Bowel Movements 1 Narrative: General: NAD Chest: CTA Cardiac: Regular Abd: +BS, soft ND/NT Ext: Right leg splinted no redness noted above the bandages. Bilateral LE edema. Pt's flanks also seem indurated. : scrotal edema Results - Labs CBC & Chem 7: 08/28/17 07:50 08/28/17 07:50 - Imaging Impressions Needle Aspiration US 08/22/17 00:00 CONCLUSION: Very minimal serosanguineous fluid approximating 0.5 cc. Foot X-Ray 08/25/17 07:11 CONCLUSION: 1. No acute fracture or dislocation. 2. Soft tissue swelling about the hind and midfoot. Chest X-Ray 08/27/17 16:44 CONCLUSION: Cardiomegaly with basilar airspace disease most characteristic of mild pulmonary edema. - Procedures Right posterior Achilles incision and drainage 08/24/[address] Hull Assessment and Plan - Assessment (1) Rupture of right Achilles tendon Code(s): S86.011A - Strain of right Achilles tendon, initial encounter Status : Acute Plan: (1) Rupture of right Achilles tendon Code(s): S86.011A - Strain of right Achilles tendon, initial encounter Status : Acute Plan: Open Achilles rupture, right - Recent admission with Achilles rupture - Pt underwent open repair of right Achilles tendon rupture with flexor hallucis longus tendon transfer and gastrocnemius recession, right lower extremity on 07/24/[address] Murillo. - Per podiatry, pt will need to be strict non-weight bearing for 6-8 weeks. - Pt was noted to have increased swelling and pain in the RLE on 08/04 - LE Doppler US (08/04) --> Is negative for DVT - Refused dc to snf and was noncompliant with weight bearing instructions. - Pt was readmitted with infection at operative site on 08/16 - He was seen by podiatry in clinic on 08/16 and sent to ED - MRI right ankle (08/16): 1. Postoperative change at the distal Achilles and calcaneus. Increased signal within the posterior calcaneus can all be consistent with postoperative change. It would be difficult to rule out osteomyelitis. 2. Fluid seen around the Achilles tendon. More superiorly in the mid lower leg, there is a larger fluid collection with peripheral enhancement. There is also a thinner fluid collection seen more superiorly in the proximal lower leg around the lateral aspect of the soleus muscle. These fluid collections could be postoperative seromas. An abscess could have a similar appearance. - vanco and Zosyn (08/17) - Rocephin (08/17 - present) - Comgmt with ID & Podiatry - Pt had a previous outpt culture taken on 08/11 which grew out Enterobacter cloacae - Right posterior Achilles incision and drainage 08/24/[address] Hull - Intraoperative wound Cx (08/24) --> Enterobacter cloacae - awaiting final DC abx recommendations per ID - Plan to DC to SNF/rehab following hospitalization to ensure non-weight bearing of RLE and good recovery. Pt at risk for Right BKA. - DVT prophylaxis with Lovenox - Pt now refusing SNF d/t cost. Will need to clarify with [facility] Case Mgmt - marked edema at limbs, flank, scrotum - continue IV lasix 80mg IV BID - flow clinical progress - BMP, mag in AM (2) Obesity hypoventilation syndrome Code(s): E66.2 - Morbid (severe) obesity with alveolar hypoventilation Status : Chronic Plan: Hypercapnic respiratory insufficiency Obesity hypoventilation syndrome COPD - 2-D echocardiogram 07/23/17: - The left ventricular systolic function is mildly reduced with an estimated ejection fraction in the range of 45- 50%. - Mild infero-posterior hypokinesis - Mild concentric left ventricular hypertrophy. - The left atrial size is moderately dilated. - RHC completed (07/28) --> Class 2 Pulm HTN, PCW 23 - No Right heart strain, so sildenafil was stopped - Pt is noncompliant with CPAP - Pt still requiring 2L of supplemental O2 (3) COPD (chronic obstructive pulmonary disease) Code(s): J44.9 - Chronic obstructive pulmonary disease, unspecified Status: Chronic Plan: - chronic does not appear to be in acute exacerbation (4) Diabetes Code(s): E11.9 - Type 2 diabetes mellitus without complications Status: Chronic Plan: - Cont OHA and SSI. - Titrate as needed (5) HTN (hypertension) Code(s): I10 - Essential (primary) hypertension Status: Chronic Plan: Hypertension - cont current BP meds, including Procardia XL 60mg Q12H, Cozaar 50mg q12H, Hydralazine 50mg TID, Coreg 25mg BID - Hydralazine PO PRN (6) Anemia Code(s): D64.9 - Anemia, unspecified Status: Chronic Plan: - Pts H/H has slowly been declining. No noted active GIB - iron deficiency anemia - Hg 8.7 (08/16) - During the last admission the pt was transfused with 2 units PRBCs (08/10) - During recent admission pt underwent evaluation with EGD/Colonoscopy (08/11/17 ) with Dr. Mccormick - int/ext hemorrhoids - sigmoid diverticulosis - esophagitis - gastric biopsies taken, results pending - Repeat labs on 08/21/17 with Hgb 8.3/Hct 24.6 -> 7.7/23.5 (08/24) -> 7.8/24.2, 7.6 (08/27), 8.5 (08/28) - Iron studies 08/08/17 Iron 26, TIBC 244, % saturation 10.7, ferritin 246 - ferritin 154 (08/27), retic 82 (08/27); b12 515, folate 7.9 (08/26) - case informally d/w Hematology - since ferritin > 100, unlikely d/t ANAHI - cancel Venofer - obtain peripheral smear, SPEP, UPEP - consider obtaining bone marrow - Hg improved following transfusion of 2 units PRBCs (08/27/17) - Hg 8.5 (08/28) - repeat Hg in AM () CAD (coronary artery disease) Code(s): I25.10 - Atherosclerotic heart disease of [place] coronary artery without angina pectoris Status: Chronic Plan: CAD (coronary artery disease) Recent history of pulmonary embolism - Patient had a PE approximately 8 months ago and was on Coumadin for until the cardiac cauterization 06/17/17 - Patient with recent cardiac catheterization with PCI 06/17/17 - After catheterization patient's Coumadin was DC'd and he was started on Aspirin and Plavix - Continue patient's Aspirin 81 mg daily, Plavix 75 mg PO daily, Atorvastatin 40 mg PO QHS and Coreg BID (8) Anxiety and depression Code(s): F41.9 - Anxiety disorder, unspecified; F32.9 - Major depressive disorder, single episode, unspecified Status: Chronic Plan: - Cont. Paxil 20mg daily - Plan Patient examined. Assessment and plan formulated with Sally Mathias PA-C. I agree with the above. (1) Rupture of right Achilles tendon Qualifiers: Encounter type: subsequent encounter Qualified Code(s): S86.011D - Strain of right Achilles tendon, subsequent encounter
[2017-08-29] MEDS: Gabapentin 300 MG Capsule PO SCH ×3 (05:57→21:49)
[2017-08-29 06:52] LABS: Baso # (Auto) 0.1 th/mm3 (0.0-0.2); Eos # (Auto) 0.1 th/mm3 (0.0-0.4); Eos % (Auto) 1.8 % (0.0-4.0); Hematocrit 27.3 % (39.0-51.0); Lymph # (Auto) 0.8 th/mm3 (1.0-4.8); Lymph % (Auto) 14.6 % (9.0-44.0); Mean Corpuscular HGB Conc 32.9 % (32.0-36.0); Mean Corpuscular Hemoglobin 26.1 pg (27.0-34.0); Mean Corpuscular Volume 79.4 fL (80.0-100.0); Mean Platelet Volume 6.9 fL (7.0-11.0); Mono # (Auto) 0.9 th/mm3 (0.0-0.9); Mono % (Auto) 16.5 % (0.0-8.0); Neut # (Auto) 3.6 th/mm3 (1.8-7.7); Neut % (Auto) 66.1 % (16.0-70.0); Platelet Count 304 th/mm3 (150-450); Red Blood Count 3.44 mil/mm3 (4.50-5.90); Red Cell Distribution Width 15.1 % (11.6-17.2); White Blood Count 5.4 th/mm3 (4.0-11.0)
[2017-08-29 07:06] LABS: Calcium 8.4 mg/dL (8.5-10.1); Carbon Dioxide 29.4 meq/L (21.0-32.0); Potassium 4.6 meq/L (3.5-5.1)
--- NOTE | 2017-08-29 08:00 | P.PNIM ---
Subjective Interval history: Pt still complains of scrotal edema and lower ext edema Physical Exam Vital signs: Vital Signs 08/28/17 08:00 08/28/17 12:00 08/28/17 14:58 Temperature 97.7 F 97.8 F Pulse Rate 88 78 Respiratory Rate 18 22 Blood Pressure 153/85 H 141/81 H Pulse Oximetry 92 L 94 L 93 L 08/28/17 14:59 08/28/17 16:00 08/28/17 20:00 Temperature 97.6 F 97.8 F Pulse Rate 86 58 L Respiratory Rate 22 18 Blood Pressure 140/80 96/53 L Pulse Oximetry 93 L 95 98 08/28/17 20:39 08/29/17 00:00 08/29/17 04:00 Temperature 98 F 97.7 F Pulse Rate 91 H 83 Respiratory Rate 17 18 Blood Pressure 161/82 H 143/70 H Pulse Oximetry 94 L 93 L 92 L Intake & Output 08/28/17 08/29/17 08/29/17 18:59 06:59 18:59 Intake Total 380 / 380 Output Total 3150 / 3150 Balance -2770 / -2770 Weight 181.4 kg Intake: Oral 380 / 380 Output: Urine 3150 / 3150 Stool 0 / 0 Other: # Bowel Movements 0 heent neg heart reg lung cta abd/flanks swelling lower ext/scrotal severe edema right lower ext splint. Results - Labs CBC & Chem 7: 08/29/17 05:50 08/29/17 05:50 Laboratory Results - last 24 hr 08/28/17 08/28/17 08/28/17 07:50 07:50 08:02 WBC 5.5 RBC 3.29 L Hgb 8.5 L Hct 26.3 L MCV 79.8 L MCH 25.9 L MCHC 32.4 RDW 15.1 Plt Count 289 MPV 7.2 Prelim Diff (Auto) Slide review pending Neut % (Auto) 65.3 Lymph % (Auto) 15.5 [place] % (Auto) 16.2 H Eos % (Auto) 2.1 Baso % (Auto) 0.9 Neut # (Auto) 3.6 Lymph # (Auto) 0.9 L [place] # (Auto) 0.9 Eos # (Auto) 0.1 Baso # (Auto) 0.0 WBC Differential Manual diff final Seg Neuts % (Manual) 68 Band Neuts % (Manual) 2 Lymphocytes % (Manual) 16 Monocytes % (Manual) 11 H Eosinophils % (Manual) 1 Myelocytes % (Man) 2 H Abs Neuts (Manual) 4.0 Differential Comment . Platelet Estimate Normal Platelet Morphology Normal Ovalocytes 1+ H Sodium 132 L Potassium 4.7 Chloride 95 L Carbon Dioxide 29.2 Anion Gap 8 BUN 39 H Creatinine 1.28 Estimated GFR 61 L POC Glucose 192 H Random Glucose 174 H Calcium 8.5 Magnesium 1.9 08/28/17 08/28/17 08/28/17 11:33 17:26 19:38 WBC RBC Hgb Hct MCV MCH MCHC RDW Plt Count MPV Prelim Diff (Auto) Neut % (Auto) Lymph % (Auto) [place] % (Auto) Eos % (Auto) Baso % (Auto) Neut # (Auto) Lymph # (Auto) [place] # (Auto) Eos # (Auto) Baso # (Auto) WBC Differential Seg Neuts % (Manual) Band Neuts % (Manual) Lymphocytes % (Manual) Monocytes % (Manual) Eosinophils % (Manual) Myelocytes % (Man) Abs Neuts (Manual) Differential Comment Platelet Estimate Platelet Morphology Ovalocytes Sodium Potassium Chloride Carbon Dioxide Anion Gap BUN Creatinine Estimated GFR POC Glucose 226 H 172 H 199 H Random Glucose Calcium Magnesium 08/29/17 08/29/17 05:50 05:50 WBC 5.4 RBC 3.44 L Hgb 9.0 L Hct 27.3 L MCV 79.4 L MCH 26.1 L MCHC 32.9 RDW 15.1 Plt Count 304 MPV 6.9 L Prelim Diff (Auto) Neut % (Auto) 66.1 Lymph % (Auto) 14.6 [place] % (Auto) 16.5 H Eos % (Auto) 1.8 Baso % (Auto) 1.0 Neut # (Auto) 3.6 Lymph # (Auto) 0.8 L [place] # (Auto) 0.9 Eos # (Auto) 0.1 Baso # (Auto) 0.1 WBC Differential . Seg Neuts % (Manual) Band Neuts % (Manual) Lymphocytes % (Manual) Monocytes % (Manual) Eosinophils % (Manual) Myelocytes % (Man) Abs Neuts (Manual) Differential Comment Auto diff final Platelet Estimate Platelet Morphology Ovalocytes Sodium 134 L Potassium 4.6 Chloride 96 L Carbon Dioxide 29.4 Anion Gap 9 BUN 36 H Creatinine 1.17 Estimated GFR 67 L POC Glucose Random Glucose 183 H Calcium 8.4 L Magnesium - Procedures Right posterior Achilles incision and drainage 08/24/[address] Hull Assessment and Plan - Assessment (1) Rupture of right Achilles tendon Code(s): S86.011A - Strain of right Achilles tendon, initial encounter Status : Acute Plan: (1) Rupture of right Achilles tendon Code(s): S86.011A - Strain of right Achilles tendon, initial encounter Status : Acute Plan: Open Achilles rupture, right - Recent admission with Achilles rupture - Pt underwent open repair of right Achilles tendon rupture with flexor hallucis longus tendon transfer and gastrocnemius recession, right lower extremity on 07/24/[address] Murillo. - Per podiatry, pt will need to be strict non-weight bearing for 6-8 weeks. - Pt was noted to have increased swelling and pain in the RLE on 08/04 - LE Doppler US (08/04) --> Is negative for DVT - Refused dc to snf and was noncompliant with weight bearing instructions. - Pt was readmitted with infection at operative site on 08/16 - He was seen by podiatry in clinic on 08/16 and sent to ED - MRI right ankle (08/16): 1. Postoperative change at the distal Achilles and calcaneus. Increased signal within the posterior calcaneus can all be consistent with postoperative change. It would be difficult to rule out osteomyelitis. 2. Fluid seen around the Achilles tendon. More superiorly in the mid lower leg, there is a larger fluid collection with peripheral enhancement. There is also a thinner fluid collection seen more superiorly in the proximal lower leg around the lateral aspect of the soleus muscle. These fluid collections could be postoperative seromas. An abscess could have a similar appearance. - vanco and Zosyn (08/17) - Rocephin (08/17 - present) - Comgmt with ID & Podiatry - Pt had a previous outpt culture taken on 08/11 which grew out Enterobacter cloacae - Right posterior Achilles incision and drainage 08/24/[address] Hull - Intraoperative wound Cx (08/24) --> Enterobacter cloacae - awaiting final DC abx recommendations per ID - Plan to DC to SNF/rehab following hospitalization to ensure non-weight bearing of RLE and good recovery. Pt at risk for Right BKA. - DVT prophylaxis with Lovenox - Pt now refusing SNF d/t cost. Will need to clarify with CP Case Mgmt today - Will continue aggressive IV lasix for edema and monitor bmp - Will need to clarify dc abx regimen with ID (2) Obesity hypoventilation syndrome Code(s): E66.2 - Morbid (severe) obesity with alveolar hypoventilation Status : Chronic Plan: Hypercapnic respiratory insufficiency Obesity hypoventilation syndrome COPD - 2-D echocardiogram 07/23/17: - The left ventricular systolic function is mildly reduced with an estimated ejection fraction in the range of 45- 50%. - Mild infero-posterior hypokinesis - Mild concentric left ventricular hypertrophy. - The left atrial size is moderately dilated. - RHC completed (07/28) --> Class 2 Pulm HTN, PCW 23 - No Right heart strain, so sildenafil was stopped - Pt is noncompliant with CPAP - Pt still requiring 2L of supplemental O2 (3) COPD (chronic obstructive pulmonary disease) Code(s): J44.9 - Chronic obstructive pulmonary disease, unspecified Status: Chronic Plan: - chronic does not appear to be in acute exacerbation (4) Diabetes Code(s): E11.9 - Type 2 diabetes mellitus without complications Status: Chronic Plan: - Cont OHA and SSI. - Titrate as needed (5) HTN (hypertension) Code(s): I10 - Essential (primary) hypertension Status: Chronic Plan: Hypertension - cont current BP meds, including Procardia XL 60mg Q12H, Cozaar 50mg q12H, Hydralazine 50mg TID, Coreg 25mg BID - Hydralazine PO PRN (6) Anemia Code(s): D64.9 - Anemia, unspecified Status: Chronic Plan: - Pts H/H has slowly been declining. No noted active GIB - iron deficiency anemia - Hg 8.7 (08/16) - During the last admission the pt was transfused with 2 units PRBCs (08/10) - During recent admission pt underwent evaluation with EGD/Colonoscopy (08/11/17 ) with Dr. Mccormick - int/ext hemorrhoids - sigmoid diverticulosis - esophagitis - gastric biopsies taken, results pending - Repeat labs on 08/21/17 with Hgb 8.3/Hct 24.6 -> 7.7/23.5 (/4) -> 7.8/24.2, 7.6 (08/27), 8.5 (08/28) - Iron studies 08/08/17 Iron 26, TIBC 244, % saturation 10.7, ferritin 246 - ferritin 154 (08/27), retic 82 (/); b12 515, folate 7.9 (08/26) - case informally d/w Hematology - since ferritin > 100, unlikely d/t ANAHI - cancel Venofer - obtain peripheral smear, SPEP, UPEP - consider obtaining bone marrow - Hg improved following transfusion of 2 units PRBCs (08/27/17) (7) CAD (coronary artery disease) Code(s): I25.10 - Atherosclerotic heart disease of [place] coronary artery without angina pectoris Status: Chronic Plan: CAD (coronary artery disease) Recent history of pulmonary embolism - Patient had a PE approximately 8 months ago and was on Coumadin for until the cardiac cauterization 06/17/17 - Patient with recent cardiac catheterization with PCI 06/17/17 - After catheterization patient's Coumadin was DC'd and he was started on Aspirin and Plavix - Continue patient's Aspirin 81 mg daily, Plavix 75 mg PO daily, Atorvastatin 40 mg PO QHS and Coreg BID (8) Anxiety and depression Code(s): F41.9 - Anxiety disorder, unspecified; F32.9 - Major depressive disorder, single episode, unspecified Status: Chronic Plan: - Cont. Paxil 20mg daily (1) Rupture of right Achilles tendon Qualifiers: Encounter type: subsequent encounter Qualified Code(s): S86.011D - Strain of right Achilles tendon, subsequent encounter
[2017-08-29] MEDS: Insulin NovoLOG Aspart Correctional Sugar Inj SQ SCH ×5 (08:15→23:00)
[2017-08-29] MEDS: Carvedilol 12.5 MG Tablet PO SCH ×2 (09:00→21:49)
[2017-08-29] MEDS: Senna/Docusate Sodium 8.6/50 MG Tablet PO SCH ×2 (09:00→21:49)
[2017-08-29] MEDS: Nystatin Liq 500,000 UNIT/5 ML UDC SWISH-SWAL SCH ×4 (09:00→21:49)
[2017-08-29] MEDS: Allopurinol 100 MG Tablet PO SCH (09:00)
[2017-08-29] MEDS: hydrALAZINE 25 MG Tablet PO SCH ×3 (09:01→18:18)
[2017-08-29] MEDS: Glimepiride 2 MG Tablet PO SCH ×2 (09:01→18:19)
--- NOTE | 2017-08-29 13:55 | P.PNID ---
Subjective Remarks: Mr. Wolf is a 47-year-old male with past medical history significant for diabetes mellitus type 2. Patient reports in July 2017 he was admitted for surgery for the Achilles tendon rupture he had earlier in that month. Patient reports that the original fall was from a ladder while he was trying to show a contractor where to repair the roof of his home. He followed up with Dr. Lizama on and when she removed the splint there was erythema and drainage noted at the incision site. Patient was admitted from Dr. Murillo's office. Significant history from past and more recently his admission in July he was in ICU and reportedly on vent for hypoxic resp failure. His PMHx is also significant for Morbid obesity and asthma/COPD PE on plavix, h/o left heart cath with stent, Sleep apnea. It appears during that hospitalization he had a culture taken by as there was some serous discharge from the incision site. Unsure if he was on antibiotics prior to this admission. ID consulted for evaluation and Mment of suspicion of left achilles tendon infection (tendinitis) at surgical site. Given the patient had a fall in the soil outside his home some degree of contamination with soil organisms is expected and E.cloacae which patient grew from culture would make sense as a causative organism for deeper infection. Overnight events reviewed. No fevers No rash No diarrhea Sitting in chair. Antibiotics: Ceftriaxone IV Lines: Lines ok Past Medical History: Respiratory failure, COPD, coronary artery disease, hypertension, gout, diabetes with neuropathy, chronic kidney disease, depression morbid obesity. Past Surgical History Right Achilles tendon Left inner thigh abscess I and D. Allergies/Adverse Reactions: Allergies codeine Allergy (Severe, Verified 08/16/17 19:14) Itching quetiapine Allergy (Intermediate, Verified 08/16/17 19:14) Hallucinations tramadol Allergy (Unknown, Verified 08/20/17 10:36) UNKNOWN clonidine Adverse Reaction (Severe, Verified 08/20/17 10:36) ARNDT, dry mouth, "felt drunk" lisinopril Adverse Reaction (Unknown, Verified 08/16/17 19:14) abnormal labs K level Objective Vital Signs 08/28/17 14:58 08/28/17 14:59 08/28/17 16:00 Temperature 97.6 F Pulse Rate 86 Respiratory Rate 22 Blood Pressure 140/80 Pulse Oximetry 93 L 93 L 95 08/28/17 20:00 08/28/17 20:39 08/29/17 00:00 Temperature 97.8 F 98 F Pulse Rate 58 L 91 H Respiratory Rate 18 17 Blood Pressure 96/53 L 161/82 H Pulse Oximetry 98 94 L 93 L 08/29/17 04:00 08/29/17 08:00 08/29/17 08:54 Temperature 97.7 F 97.7 F Pulse Rate 83 86 Respiratory Rate 18 20 Blood Pressure 143/70 H 177/88 H Pulse Oximetry 92 L 92 L 95 08/29/17 12:00 08/29/17 13:40 Temperature 97.9 F Pulse Rate 91 H Respiratory Rate 20 20 Blood Pressure 160/88 H Pulse Oximetry 96 Intake & Output 08/28/17 08/29/17 08/29/17 18:59 06:59 18:59 Intake Total 380 / 380 Output Total 3150 / 3150 Balance -2770 / -2770 Weight 181.4 kg Intake: Oral 380 / 380 Output: Urine 3150 / 3150 Stool 0 / 0 Other: # Bowel Movements 0 08/24/17 15:00 Tissue - Ankle Gram Stain - Final 08/24/17 15:00 Tissue - Ankle Wound Culture - Final Enterobacter cloacae 08/24/17 15:00 Tissue - Ankle Acid Fast Bacilli Smear - Final No acid fast bacilli seen 08/24/17 15:00 Tissue - Ankle Mycobacterial Culture - Pending Lab - Hematology Results 08/28/17 08/29/17 07:50 05:50 WBC 5.5 5.4 RBC 3.29 L 3.44 L Hgb 8.5 L 9.0 L Hct 26.3 L 27.3 L MCV 79.8 L 79.4 L MCH 25.9 L 26.1 L MCHC 32.4 32.9 RDW 15.1 15.1 Plt Count 289 304 MPV 7.2 6.9 L Prelim Diff (Auto) Slide review pending Neut % (Auto) 65.3 66.1 Lymph % (Auto) 15.5 14.6 [place] % (Auto) 16.2 H 16.5 H Eos % (Auto) 2.1 1.8 Baso % (Auto) 0.9 1.0 Neut # (Auto) 3.6 3.6 Lymph # (Auto) 0.9 L 0.8 L [place] # (Auto) 0.9 0.9 Eos # (Auto) 0.1 0.1 Baso # (Auto) 0.0 0.1 WBC Differential Manual diff final . Seg Neuts % (Manual) 68 Band Neuts % (Manual) 2 Lymphocytes % (Manual) 16 Monocytes % (Manual) 11 H Eosinophils % (Manual) 1 Myelocytes % (Man) 2 H Abs Neuts (Manual) 4.0 Differential Comment . Auto diff final Platelet Estimate Normal Platelet Morphology Normal Ovalocytes 1+ H Lab - Chemistry Results 08/27/17 08/27/17 08/28/17 16:50 20:24 07:50 Sodium 132 L Potassium 4.7 Chloride 95 L Carbon Dioxide 29.2 Anion Gap 8 BUN 39 H Creatinine 1.28 Estimated GFR 61 L POC Glucose 187 H 201 H Random Glucose 174 H Calcium 8.5 Magnesium 1.9 08/28/17 08/28/17 08/28/17 08:02 11:33 17:26 Sodium Potassium Chloride Carbon Dioxide Anion Gap BUN Creatinine Estimated GFR POC Glucose 192 H 226 H 172 H Random Glucose Calcium Magnesium 08/28/17 08/29/17 08/29/17 19:38 05:50 08:00 Sodium 134 L Potassium 4.6 Chloride 96 L Carbon Dioxide 29.4 Anion Gap 9 BUN 36 H Creatinine 1.17 Estimated GFR 67 L POC Glucose 199 H 220 H Random Glucose 183 H Calcium 8.4 L Magnesium 08/29/17 12:07 Sodium Potassium Chloride Carbon Dioxide Anion Gap BUN Creatinine Estimated GFR POC Glucose 152 H Random Glucose Calcium Magnesium Imaging: ITS Impressions Needle Aspiration US 08/22/17 00:00 CONCLUSION: Very minimal serosanguineous fluid approximating 0.5 cc. Foot X-Ray 08/25/17 07:11 CONCLUSION: 1. No acute fracture or dislocation. 2. Soft tissue swelling about the hind and midfoot. Chest X-Ray 08/27/17 16:44 CONCLUSION: Cardiomegaly with basilar airspace disease most characteristic of mild pulmonary edema. Physical Exam: GENERAL: This is a well-nourished, well-developed patient, in no apparent distress. SKIN: No rashes, ecchymoses or lesions. Cool and dry. HEAD: Atraumatic. Normocephalic. No temporal or scalp tenderness. EYES: Pupils equal round and reactive. Extraocular motions intact. No scleral icterus. No injection or drainage. ENT: Nose without bleeding, purulent drainage or septal hematoma. Throat without erythema, tonsillar hypertrophy or exudate. Uvula midline. Airway patent. NECK: Trachea midline. No JVD or lymphadenopathy. Supple, nontender, no meningeal signs. CARDIOVASCULAR: Regular rate and rhythm without murmurs, gallops, or rubs. RESPIRATORY: Clear to auscultation. Breath sounds equal bilaterally. No wheezes , rales, or rhonchi. GASTROINTESTINAL: Abdomen soft, non-tender, nondistended. MUSCULOSKELETAL: Right leg in post op dressing. NEUROLOGICAL: Awake and alert. non focal. psych cooperative IV line sites ok Assessment and Plan - Plan Right achilles tendon infection Enterobacter cloacae last culture from surgical site. 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 DM Sleep apnea Recs Continue Ceftriaxone IV Follow cultures from CT guided drainage. Follow clinicallydw and patient. Needs ID follow up either or [facility] ID physician in clinic in 2 weeks. sree [employer] Invest[employer]. Post hospital infusion orders in chart. Will sign off please call back if any change in clinical condition or questions.
--- NOTE | 2017-08-29 14:00 | P.DCO ---
Post Hospital Infusion Therapy Location of Infusion Therapy: [facility] Infusion Therapy Order Appointment Date: 08/29/17 Patient Weight: 181.4 kg - Diagnosis (1) Achilles tendinitis, unspecified leg Code(s): M76.60 - Achilles tendinitis, unspecified leg (2) Infection caused by Enterobacter cloacae Code(s): A49.8 - Other bacterial infections of unspecified site - Administer Medication Ceftriaxone Dose: 2 grams IV Directions: q 24 hours Start Treatment: 08/29/17 Stop Treatment: 10/07/17 - Additional Information Venous Access: PICC Line Additional Instructions: [x] Peripheral flush and dressing changes per protocol [x] Implanted port and central bakery worker conveyor line: * Implanted port: 10 ml Normal Saline followed by 5 ml Heparin 100 units/ml Heparin flush after each use and monthly to maintain. [] May leave port accessed during therapy. [] May leave peripheral site accessed for duration of therapy. [x] If patient has SOB or respiratory distress, check oxygen saturation. If less than 90% or clinical signs of respiratory distress, administer oxygen at 2 L/min. via nasal cannula and notify physician. [x] Anaphylaxis/Reaction orders: * Stop infusion. * Keep IV line open with saline flush. * Notify physician. * Monitor vital signs every 15 minutes until symptoms resolve. * Check Oxygen saturation; Oxygen at 2 L/min. via nasal cannula if less than 90% or clinical signs of respiratory distress. * Administer diphenhydramine (Benadryl) 25 mg IV STAT, (unless patient has received as pre-med). May repeat once, if necessary. * Solu-Cortef 250 mg IVP over 30-60 seconds, use 100 mg vials for each dissolution. * Epinephrine (1mg/1 ml) 0.3 mg subcutaneously or IVP now with any signs of respiratory distress. * Check with physician for new additional pre-med orders if patient is re- challenged or re-treated. [x] May remove PICC line when treatment complete, after confirming with Physician. [x] If the patient is admitted to the hospital, the ED, or transferred via [facility] , complete transfer form including medication reconciliation order sheet. Weekly Labs: CBC w/diff, CRP, LFTs (Hepatic Function Test) Case Management Consult: Yes Additional Information: Please draw weekly labs and fax to infectious disease at [facility] or Dr. Holly whichever patient chooses to go to. Patient to schedule follow up appointment with ID MD of choice or chosen by [facility]. Allergies codeine Allergy (Severe, Verified 08/16/17 19:14) Itching quetiapine Allergy (Intermediate, Verified 08/16/17 19:14) Hallucinations tramadol Allergy (Unknown, Verified 08/20/17 10:36) UNKNOWN clonidine Adverse Reaction (Severe, Verified 08/20/17 10:36) ARNDT, dry mouth, "felt drunk" lisinopril Adverse Reaction (Unknown, Verified 08/16/17 19:14) abnormal labs K level
[2017-08-29] MEDS: Temazepam 15 MG Capsule PO PRN (21:47)
[2017-08-29] MEDS: Enoxaparin Inj 40 MG/0.4 ML Syringe SQ SCH (23:29)
[2017-08-30] MEDS: Gabapentin 300 MG Capsule PO SCH ×3 (06:22→21:00)
[2017-08-30 07:14] LABS: Calcium 8.7 mg/dL (8.5-10.1); Carbon Dioxide 32.8 meq/L (21.0-32.0); Potassium 4.5 meq/L (3.5-5.1)
[2017-08-30] MEDS: Nystatin Liq 500,000 UNIT/5 ML UDC SWISH-SWAL SCH ×4 (08:34→20:45)
[2017-08-30] MEDS: hydrALAZINE 25 MG Tablet PO SCH ×3 (08:35→18:31)
[2017-08-30] MEDS: Glimepiride 2 MG Tablet PO SCH (08:35)
[2017-08-30] MEDS: Allopurinol 100 MG Tablet PO SCH (08:35)
[2017-08-30] MEDS: Carvedilol 12.5 MG Tablet PO SCH ×2 (08:35→20:45)
[2017-08-30] MEDS: Senna/Docusate Sodium 8.6/50 MG Tablet PO SCH ×2 (08:35→20:45)
[2017-08-30] MEDS: Heparin Central Flush 100 UNIT/ML 5 ML Vial IV.FLUSH SCH (08:36)
[2017-08-30] MEDS: Insulin NovoLOG Aspart Correctional Sugar Inj SQ SCH ×4 (08:36→20:54)
[2017-08-30] MEDS: Albumin Human 25% Inj 100 ML IV.SIG SCH ×2 (08:37→18:34)
--- NOTE | 2017-08-30 09:23 | P.PNIM ---
Subjective Interval history: still c/o of scrotal edema Physical Exam Vital signs: Vital Signs 08/29/17 12:00 08/29/17 13:40 08/29/17 18:19 Temperature 97.9 F Pulse Rate 89 Respiratory Rate 20 20 20 Blood Pressure 160/88 H Pulse Oximetry 96 08/29/17 20:00 08/30/17 00:00 08/30/17 04:00 Temperature 97.7 F 97.4 F L 97.1 F L Pulse Rate 90 93 H 82 Respiratory Rate 18 18 18 Blood Pressure 141/68 H 153/73 H 127/69 Pulse Oximetry 96 96 96 08/30/17 08:00 Temperature 97.5 F L Pulse Rate 91 H Respiratory Rate 20 Blood Pressure 140/65 Pulse Oximetry 95 Intake & Output 08/29/17 08/30/17 08/30/17 18:59 06:59 18:59 Intake Total 1200 / 1200 580 / 580 Output Total 1925 / 1925 2226 / 2226 Balance -726 / -726 -1646 / -1646 Weight 181.4 kg 181.4 kg Intake: IV 100 / 100 Rocephin Inj 2,000 MG In NS Inj 100 / 100 100 ML @ 200 mls/hr IV.SIG Q24H [facility] Rx#:[id number] Oral 1200 / 1200 480 / 480 Output: Urine 1924 2225 / 2225 Stool Urine/Stool Mix Other: Date of Last Bowel Movement 08/26/17 08/29/17 heart reg lung cta abd s/nt ext scrotal/lower ext impoved right leg splinted Results - Labs CBC & Chem 7: 08/29/17 05:50 08/30/17 06:25 Laboratory Results - last 24 hr 08/27/17 08/29/17 08/29/17 11:35 12:07 16:56 Sodium Potassium Chloride Carbon Dioxide Anion Gap BUN Creatinine Estimated GFR POC Glucose 152 H 180 H Random Glucose Calcium Albumin (PEP) 2.43 L Albumin/Globulin Ratio 0.82 L Jppsx-4-Zfhlfrqlp 0.33 H Zlbon-5-Azjobndjn 0.92 Beta Globulins 0.77 Gamma Globulins 0.95 08/29/17 08/30/17 08/30/17 21:28 06:25 07:43 Sodium 134 L Potassium 4.5 Chloride 94 L Carbon Dioxide 32.8 H Anion Gap 7 BUN 32 H Creatinine 1.07 Estimated GFR 74 L POC Glucose 216 H 174 H Random Glucose 165 H Calcium 8.7 Albumin (PEP) Albumin/Globulin Ratio Goqrm-8-Ukoelnbze Qqpjv-0-Haxecbiez Beta Globulins Gamma Globulins - Procedures Right posterior Achilles incision and drainage 08/24/[address] Hull Assessment and Plan - Assessment (1) Rupture of right Achilles tendon Code(s): S86.011A - Strain of right Achilles tendon, initial encounter Status : Acute Plan: (1) Rupture of right Achilles tendon Code(s): S86.011A - Strain of right Achilles tendon, initial encounter Status : Acute Plan: Open Achilles rupture, right - Recent admission with Achilles rupture - Pt underwent open repair of right Achilles tendon rupture with flexor hallucis longus tendon transfer and gastrocnemius recession, right lower extremity on 07/24/[address] Murillo. - Per podiatry, pt will need to be strict non-weight bearing for 6-8 weeks. - Pt was noted to have increased swelling and pain in the RLE on 08/04 - LE Doppler US (08/04) --> Is negative for DVT - Refused dc to snf and was noncompliant with weight bearing instructions. - Pt was readmitted with infection at operative site on 08/16 - He was seen by podiatry in clinic on 08/16 and sent to ED - MRI right ankle (08/16): 1. Postoperative change at the distal Achilles and calcaneus. Increased signal within the posterior calcaneus can all be consistent with postoperative change. It would be difficult to rule out osteomyelitis. 2. Fluid seen around the Achilles tendon. More superiorly in the mid lower leg, there is a larger fluid collection with peripheral enhancement. There is also a thinner fluid collection seen more superiorly in the proximal lower leg around the lateral aspect of the soleus muscle. These fluid collections could be postoperative seromas. An abscess could have a similar appearance. - vanco and Zosyn (08/17) - Rocephin (08/17 - present) - Comgmt with ID & Podiatry - Pt had a previous outpt culture taken on 08/11 which grew out Enterobacter cloacae - Right posterior Achilles incision and drainage 08/24/[address] Hull - Intraoperative wound Cx (7/4) --> Enterobacter cloacae - awaiting final DC abx recommendations per ID - Plan to DC to SNF/rehab following hospitalization to ensure non-weight bearing of RLE and good recovery. Pt at risk for Right BKA. - DVT prophylaxis with Lovenox - discussed with fhcp. copay for snf waved. CM consulted. pt agreeable for Indigo cont iv lasix and add iv albumen and monitor bmp. discussed dc abx with ID. orders written (2) Obesity hypoventilation syndrome Code(s): E66.2 - Morbid (severe) obesity with alveolar hypoventilation Status : Chronic Plan: Hypercapnic respiratory insufficiency Obesity hypoventilation syndrome COPD - 2-D echocardiogram 07/23/17: - The left ventricular systolic function is mildly reduced with an estimated ejection fraction in the range of 45- 50%. - Mild infero-posterior hypokinesis - Mild concentric left ventricular hypertrophy. - The left atrial size is moderately dilated. - RHC completed (07/28) --> Class 2 Pulm HTN, PCW 23 - No Right heart strain, so sildenafil was stopped - Pt is noncompliant with CPAP - Pt still requiring 2L of supplemental O2 (3) COPD (chronic obstructive pulmonary disease) Code(s): J44.9 - Chronic obstructive pulmonary disease, unspecified Status: Chronic Plan: - chronic does not appear to be in acute exacerbation (4) Diabetes Code(s): E11.9 - Type 2 diabetes mellitus without complications Status: Chronic Plan: - Cont OHA and SSI. - Titrate as needed (5) HTN (hypertension) Code(s): I10 - Essential (primary) hypertension Status: Chronic Plan: Hypertension - cont current BP meds, including Procardia XL 60mg Q12H, Cozaar 50mg q12H, Hydralazine 50mg TID, Coreg 25mg BID - Hydralazine PO PRN (6) Anemia Code(s): D64.9 - Anemia, unspecified Status: Chronic Plan: - Pts H/H has slowly been declining. No noted active GIB - iron deficiency anemia - Hg 8.7 (08/16) - During the last admission the pt was transfused with 2 units PRBCs (08/10) - During recent admission pt underwent evaluation with EGD/Colonoscopy (08/11/17 ) with Dr. Mccormick - int/ext hemorrhoids - sigmoid diverticulosis - esophagitis - gastric biopsies taken, results pending - Repeat labs on 08/21/17 with Hgb 8.3/Hct 24.6 -> 7.7/23.5 (/) -> 7.8/24.2, 7.6 (08/27), 8.5 (08/28) - Iron studies 08/08/17 Iron 26, TIBC 244, % saturation 10.7, ferritin 246 - ferritin 154 (08/27), retic 82 (/); b12 515, folate 7.9 (08/26) - case informally d/w Hematology - since ferritin > 100, unlikely d/t ANAHI - cancel Venofer - obtain peripheral smear, SPEP, UPEP - consider obtaining bone marrow - Hg improved following transfusion of 2 units PRBCs (08/27/17) (7) CAD (coronary artery disease) Code(s): I25.10 - Atherosclerotic heart disease of [place] coronary artery without angina pectoris Status: Chronic Plan: CAD (coronary artery disease) Recent history of pulmonary embolism - Patient had a PE approximately 8 months ago and was on Coumadin for until the cardiac cauterization 06/17/17 - Patient with recent cardiac catheterization with PCI 06/17/17 - After catheterization patient's Coumadin was DC'd and he was started on Aspirin and Plavix - Continue patient's Aspirin 81 mg daily, Plavix 75 mg PO daily, Atorvastatin 40 mg PO QHS and Coreg BID (8) Anxiety and depression Code(s): F41.9 - Anxiety disorder, unspecified; F32.9 - Major depressive disorder, single episode, unspecified Status: Chronic Plan: - Cont. Paxil 20mg daily (1) Rupture of right Achilles tendon Qualifiers: Encounter type: subsequent encounter Qualified Code(s): S86.011D - Strain of right Achilles tendon, subsequent encounter
[2017-08-30] MEDS ORDERED: Ketorolac Inj 30 MG/ML (IVP) Vial IV.PUSH ONE (20:30)
--- NOTE | 2017-08-30 20:46 | P.PNPOD ---
Subjective Interval history: S/p right achilles tendon repair with flexor hallucis longus tendon transfer, gastrocnemius recession Dr Murillo s/p right leg I&D Dr Hull Review of Systems All other systems reviewed negative except as stated in HPI Physical Exam Vital signs: Vital Signs 08/30/17 00:00 08/30/17 04:00 08/30/17 08:00 Temperature 97.4 F L 97.1 F L 97.5 F L Pulse Rate 93 H 82 91 H Respiratory Rate 18 18 20 Blood Pressure 153/73 H 127/69 140/65 Pulse Oximetry 96 96 94 L 08/30/17 09:00 08/30/17 10:15 08/30/17 11:32 Temperature Pulse Rate 90 Respiratory Rate 20 20 Blood Pressure Pulse Oximetry 08/30/17 12:00 08/30/17 14:20 08/30/17 15:38 Temperature 98.1 F Pulse Rate 81 Respiratory Rate 20 20 20 Blood Pressure 150/72 H Pulse Oximetry 94 L 08/30/17 16:00 08/30/17 16:53 Temperature 98.9 F Pulse Rate 89 90 Respiratory Rate 20 Blood Pressure 153/77 H Pulse Oximetry 93 L Intake & Output 08/30/17 08/30/17 08/31/17 06:59 18:59 06:59 Intake Total 580 / 580 1060 / 1060 Output Total 2226 / 2226 1800 / 1800 Balance -1646 / -1646 -740 / -740 Weight 181.4 kg 181.4 kg Intake: IV 100 / 100 100 / 100 Flexbumin 25% Inj 100 ML @ 60 100 / 100 mls/hr IV.SIG BID@08,17 [facility] Rx# :[id number] Rocephin Inj 2,000 MG In NS Inj 100 / 100 100 ML @ 200 mls/hr IV.SIG Q24H [facility] Rx#:[id number] Oral 480 / 480 960 / 960 Output: Urine 2225 / 2225 1800 / 1800 Urine/Stool Mix Other: Date of Last Bowel Movement 08/29/17 08/29/17 Narrative: Right lower extremity with splint intact, clean ,dry Medications and Allergies Active Medications: Active Medications Hydrocodone Bitart/Acetaminophen ([place] 10/325) 1 tab PO Q4H PRN PRN Reason: pain 3-10 Last Admin: 08/30/17 15:39 Dose: 1 tab Al Hydroxide/Mg Hydroxide (Milk Of [place]) 30 ml PO Q12H PRN PRN Reason: MILD CONSTIPATION Allopurinol (Zyloprim) 100 mg PO DAILY [facility] Last Admin: 08/30/17 08:35 Dose: 100 mg Aspirin (Ecotrin) 81 mg PO DAILY [facility] Last Admin: 08/30/17 08:34 Dose: 81 mg Atorvastatin Calcium (Lipitor) 40 mg PO HS [facility] Last Admin: 08/29/17 21:47 Dose: 40 mg Benzocaine/Menthol (Chloraseptic Sore Throat Lozenge) 1 lozenge BUCCAL Q2HR PRN PRN Reason: sore throat Bisacodyl (Dulcolax Supp) 10 mg RECTAL DAILY PRN PRN Reason: SEVERE CONSTIPATION Carvedilol (Coreg) 25 mg PO BID [facility] Last Admin: 08/30/17 08:35 Dose: 25 mg Clopidogrel Bisulfate (Plavix) 75 mg PO DAILY [facility] Last Admin: 08/30/17 08:35 Dose: 75 mg Dextrose (D50w Vial) 50 ml IV.PUSH UNSCH PRN PRN Reason: PER HYPOGLYCEMIA PROTOCOL Enoxaparin Sodium (Lovenox Inj) 40 mg SQ Q24H [facility] Last Admin: 08/29/17 23:29 Dose: 40 mg Furosemide (Lasix Inj) 80 mg IV.PUSH BID@0900,1800 [facility] Last Admin: 08/30/17 18:30 Dose: 80 mg Gabapentin (Neurontin) 300 mg PO Q8HR [facility] Last Admin: 08/30/17 13:32 Dose: 300 mg Glimepiride (Amaryl) 2 mg PO BIDAC [facility] Last Admin: 08/30/17 08:35 Dose: 2 mg Glucagon (Glucagon Inj) 1 mg OTHER PRN PRN PRN Reason: for Hypoglycemia Protocol Heparin Sodium (Porcine) (Heparin Central Flush) 0 unit IV.FLUSH DAILY [facility] Last Admin: 08/30/17 08:36 Dose: 500 unit Heparin Sodium (Porcine) (Heparin Central Flush) 0 unit IV.FLUSH PRN PRN PRN Reason: Flush PICC Line Hydralazine HCl (Apresoline) 50 mg PO TID [facility] Last Admin: 08/30/17 18:31 Dose: 50 mg Hydralazine HCl (Apresoline) 25 mg PO Q8HR PRN PRN Reason: SBP >170 Ceftriaxone Sodium 2,000 mg/ (Sodium Chloride) 100 mls @ 200 mls/hr IV.SIG Q24H [facility] Last Infusion: 08/29/17 22:32 Dose: Infused Albumin Human (Flexbumin 25% Inj) 100 mls @ 60 mls/hr IV.SIG BID@08,17 [facility] Last Admin: 08/30/17 18:34 Dose: 60 mls/hr Insulin Aspart (Novolog Insulin Suppl Scale Inj) 0 unit SQ ACHS [facility]; Protocol Last Admin: 08/30/17 18:34 Dose: 2 unit Lactulose (Lactulose Liq) 30 ml PO DAILY PRN PRN Reason: SEVERE CONSTIPATION Losartan Potassium (Cozaar) 50 mg PO Q12HR [facility] Last Admin: 08/30/17 08:35 Dose: 50 mg Naloxone HCl (Narcan Inj) 0.4 mg IV.PUSH UNSCH PRN PRN Reason: SEE LABEL COMMENTS Nifedipine (Procardia Xl) 60 mg PO Q12HR [facility] Last Admin: 08/30/17 08:34 Dose: 60 mg Nystatin (Mycostatin Liq) 5 ml SWISH-SWAL QID [facility] Last Admin: 08/30/17 18:31 Dose: 5 ml Pantoprazole Sodium (Protonix) 40 mg PO DAILY [facility] Last Admin: 08/30/17 08:35 Dose: 40 mg Paroxetine HCl (Paxil) 20 mg PO DAILY [facility] Last Admin: 08/30/17 08:35 Dose: 20 mg Senna/Docusate Sodium ([place]-Colace) 1 tab PO BID [facility] Last Admin: 08/30/17 08:35 Dose: 1 tab Sennosides (Senokot) 17.2 mg PO Q12H PRN PRN Reason: MODERATE CONSTIPATION Sodium Chloride ([place] Nasal [place]) 1 spray EACH NARE Q6H PRN PRN Reason: FOR DRYNESS Last Admin: 08/22/17 13:18 Dose: 1 spray Sodium Chloride (Ns Flush) 2 ml IV.FLUSH UNSCH PRN PRN Reason: FLUSH AFTER USING IV ACCESS Sodium Chloride (Ns Flush) 2 ml IV.FLUSH BID [facility] Last Admin: 08/30/17 13:33 Dose: 2 ml Sodium Chloride (Ns Flush) 0 ml IV.FLUSH DAILY [facility] Last Admin: 08/30/17 13:33 Dose: 5 ml Sodium Chloride (Ns Flush) 0 ml IV.FLUSH PRN PRN PRN Reason: FLUSH AFTER USING IV ACCESS Sodium Chloride (Ns Flush) 0 ml IV.FLUSH PRN PRN PRN Reason: Flush After Blood Draws Temazepam (Restoril) 15 mg PO HS PRN PRN Reason: INSOMNIA Last Admin: 08/29/17 21:47 Dose: 15 mg Throat Lozenges (Chloraseptic [place]) 2 spray OROPHARYNG Q2H PRN PRN Reason: sore throat Allergies Allergy/AdvReac Type Severity Reaction Status Date / Time codeine Allergy Severe Itching Verified 08/16/17 19:14 quetiapine Allergy Intermediate Hallucinati Verified 08/16/17 19:14 ons tramadol Allergy Unknown UNKNOWN Verified 08/20/17 10:36 clonidine AdvReac Severe ARNDT, dry Verified 08/20/17 10:36 mouth, "felt drunk" lisinopril AdvReac Unknown abnormal Verified 08/16/17 19:14 labs K level Home Medications Medication Instructions Recorded Confirmed Type allopurinol 100 mg PO DAILY 08/20/17 08/20/17 History aspirin 81 mg PO DAILY 08/20/17 08/20/17 History atorvastatin 40 mg PO HS 08/20/17 08/20/17 History carvedilol 25 mg PO BID 08/20/17 08/20/17 History clindamycin HCl 300 mg PO Q6H 08/20/17 08/20/17 History clopidogrel 75 mg PO DAILY 08/20/17 08/20/17 History furosemide 40 mg PO DAILY 08/20/17 08/20/17 History gabapentin 300 mg PO Q8H 08/20/17 08/20/17 History glimepiride 2 mg PO BIDAC 08/20/17 08/20/17 History hydralazine 50 mg PO TID 08/20/17 08/20/17 History hydrocodone-acetaminophen 1 tab PO Q4H PRN 08/20/17 08/20/17 History insulin aspart U-100 [Novolog 1 sliding scale dose SUB-Q 08/20/17 08/20/17 History U-100 Insulin aspart] DIRECTED losartan 50 mg PO Q12H 08/20/17 08/20/17 History metformin 750 mg PO BID 08/20/17 08/20/17 History nifedipine 60 mg PO Q12H 08/20/17 08/20/17 History nystatin 5 ml PO QID 08/20/17 08/20/17 History pantoprazole 40 mg PO DAILY 08/20/17 08/20/17 History paroxetine HCl 20 mg PO DAILY 08/20/17 08/20/17 History Results - Labs CBC & Chem 7: 08/29/17 05:50 08/30/17 06:25 Laboratory Results - last 24 hr 08/27/17 08/29/17 08/30/17 11:35 21:28 06:25 Sodium 134 L Potassium 4.5 Chloride 94 L Carbon Dioxide 32.8 H Anion Gap 7 BUN 32 H Creatinine 1.07 Estimated GFR 74 L POC Glucose 216 H Random Glucose 165 H Calcium 8.7 Albumin (PEP) 2.43 L Albumin/Globulin Ratio 0.82 L Znoyw-1-Wrwkjiczw 0.33 H Xezkq-5-Uxyuwrwmj 0.92 Beta Globulins 0.77 Gamma Globulins 0.95 PEP Pathologist Comment 08/30/17 08/30/17 08/30/17 07:43 12:14 17:06 Sodium Potassium Chloride Carbon Dioxide Anion Gap BUN Creatinine Estimated GFR POC Glucose 174 H 173 H 197 H Random Glucose Calcium Albumin (PEP) Albumin/Globulin Ratio Ttxtt-3-Bezgymmwk Dwyvi-0-Tnzwaskqf Beta Globulins Gamma Globulins PEP Pathologist Comment Assessment and Plan - Assessment (1) Abscess of right lower leg Code(s): L02.415 - Cutaneous abscess of right lower limb Status: Acute (2) Rupture of right Achilles tendon Code(s): S86.011A - Strain of right Achilles tendon, initial encounter Status : Acute - Plan Changing dressing Right lower extremity tomorrow to assess wound. Strict nonweightbearing right lower extremity. Discussed that intraoperatively, Dr Hull has noticed loosening of suture material from achilles repair. Patient and discussed that at previous admission, he was hallucinating and kicking hard, landing on his foot/splint, and that he had not walked around on it, but this sudden repetitive motion could have disrupted the repair. Recommend patient continue to stay inpatient to assess wound, continue IV antibiotics, manage continued edema issues, and more aggressive pain control. (2) Rupture of right Achilles tendon Qualifiers: Encounter type: subsequent encounter Qualified Code(s): S86.011D - Strain of right Achilles tendon, subsequent encounter
[2017-08-30] MEDS: Enoxaparin Inj 40 MG/0.4 ML Syringe SQ SCH (22:04)
[2017-08-31] MEDS: Gabapentin 300 MG Capsule PO SCH (06:00)
[2017-08-31] MEDS ORDERED: LORazepam 1 MG Tablet PO SCH (06:45)
[2017-08-31 06:49] LABS: Calcium 8.7 mg/dL (8.5-10.1); Carbon Dioxide 33.3 meq/L (21.0-32.0); Potassium 4.8 meq/L (3.5-5.1)
[2017-08-31] MEDS: Albumin Human 25% Inj 100 ML IV.SIG SCH ×2 (09:08→18:05)
[2017-08-31] MEDS: Glimepiride 2 MG Tablet PO SCH ×2 (09:08→16:41)
[2017-08-31] MEDS: Nystatin Liq 500,000 UNIT/5 ML UDC SWISH-SWAL SCH ×2 (09:12→18:04)
[2017-08-31] MEDS: Heparin Central Flush 100 UNIT/ML 5 ML Vial IV.FLUSH SCH (09:12)
[2017-08-31] MEDS: Allopurinol 100 MG Tablet PO SCH (09:13)
[2017-08-31] MEDS: hydrALAZINE 25 MG Tablet PO SCH ×3 (09:13→18:13)
[2017-08-31] MEDS: Carvedilol 12.5 MG Tablet PO SCH ×2 (09:13→20:57)
[2017-08-31] MEDS: Senna/Docusate Sodium 8.6/50 MG Tablet PO SCH ×2 (09:14→20:57)
[2017-08-31] MEDS ORDERED: Morphine Sulfate Inj 2 MG/ML Vial IV.PUSH PRN (09:24)
--- NOTE | 2017-08-31 09:34 | P.PNIM ---
Subjective Interval history: C/O SEVERE PAINS. WORSENING EDEMA AND SCROTAL SWELLING. VERY ANXIOUS. Physical Exam Vital signs: Vital Signs 08/30/17 10:15 08/30/17 11:32 08/30/17 12:00 Temperature 98.1 F Pulse Rate 81 Respiratory Rate 20 20 20 Blood Pressure 150/72 H Pulse Oximetry 94 L 08/30/17 14:20 08/30/17 15:38 08/30/17 16:00 Temperature 98.9 F Pulse Rate 89 Respiratory Rate 20 20 20 Blood Pressure 153/77 H Pulse Oximetry 93 L 08/30/17 16:53 08/30/17 20:00 08/30/17 23:43 Temperature 98.0 F Pulse Rate 90 79 77 Respiratory Rate 16 Blood Pressure 140/82 Pulse Oximetry 99 08/30/17 23:49 08/31/17 00:00 08/31/17 04:00 Temperature 98.1 F 97.9 F Pulse Rate 117 H 75 67 Respiratory Rate 16 14 Blood Pressure 130/69 120/69 Pulse Oximetry 98 96 Intake & Output 08/30/17 08/31/17 08/31/17 18:59 06:59 18:59 Intake Total 1060 / 1060 200 / 200 Output Total 1800 / 1800 Balance -740 / -740 200 / 200 Weight 181.4 kg 181.4 kg Intake: IV 100 / 100 200 / 200 Flexbumin 25% Inj 100 ML @ 60 100 / 100 100 / 100 mls/hr IV.SIG BID@08,17 [facility] Rx# :[id number] Rocephin Inj 2,000 MG In NS Inj 100 / 100 100 ML @ 200 mls/hr IV.SIG Q24H [facility] Rx#:[id number] Oral 960 / 960 Output: Urine 1800 / 1800 Other: Date of Last Bowel Movement 08/29/17 IN CHAIR ORIENTED ANXIOUS HEART REG LUNG CTA ABD OBESE/NT EXT SEVERE SCROTAL SWELLING AND ANASARCA OF LOWER BODY. Results - Labs CBC & Chem 7: 08/29/17 05:50 08/31/17 06:05 Laboratory Results - last 24 hr 08/27/17 08/30/17 08/30/17 11:35 12:14 17:06 Sodium Potassium Chloride Carbon Dioxide Anion Gap BUN Creatinine Estimated GFR POC Glucose 173 H 197 H Random Glucose Calcium PEP Pathologist Comment 08/30/17 08/31/17 08/31/17 20:43 06:05 08:14 Sodium 135 L Potassium 4.8 Chloride 96 L Carbon Dioxide 33.3 H Anion Gap 6 BUN 34 H Creatinine 1.22 Estimated GFR 64 L POC Glucose 281 H 185 H Random Glucose 172 H Calcium 8.7 PEP Pathologist Comment - Procedures Right posterior Achilles incision and drainage 08/24/[address] Hull Assessment and Plan - Assessment (1) Rupture of right Achilles tendon Code(s): S86.011A - Strain of right Achilles tendon, initial encounter Status : Acute Plan: (1) Rupture of right Achilles tendon Code(s): S86.011A - Strain of right Achilles tendon, initial encounter Status : Acute Plan: Open Achilles rupture, right - Recent admission with Achilles rupture - Pt underwent open repair of right Achilles tendon rupture with flexor hallucis longus tendon transfer and gastrocnemius recession, right lower extremity on 07/24/[address] Murillo. - Per podiatry, pt will need to be strict non-weight bearing for 6-8 weeks. - Pt was noted to have increased swelling and pain in the RLE on 08/04 - LE Doppler US (08/04) --> Is negative for DVT - Refused dc to snf and was noncompliant with weight bearing instructions. - Pt was readmitted with infection at operative site on 08/16 - He was seen by podiatry in clinic on 08/16 and sent to ED - MRI right ankle (08/16): 1. Postoperative change at the distal Achilles and calcaneus. Increased signal within the posterior calcaneus can all be consistent with postoperative change. It would be difficult to rule out osteomyelitis. 2. Fluid seen around the Achilles tendon. More superiorly in the mid lower leg, there is a larger fluid collection with peripheral enhancement. There is also a thinner fluid collection seen more superiorly in the proximal lower leg around the lateral aspect of the soleus muscle. These fluid collections could be postoperative seromas. An abscess could have a similar appearance. - nasrino and Gen (08/17) - Rocephin (08/17 - present) - Comgmt with ID & Podiatry - Pt had a previous outpt culture taken on 08/11 which grew out Enterobacter cloacae - Right posterior Achilles incision and drainage 08/24/[address] Hull - Intraoperative wound Cx (08/24) --> Enterobacter cloacae - awaiting final DC abx recommendations per ID - Plan to DC to SNF/rehab following hospitalization to ensure non-weight bearing of RLE and good recovery. Pt at risk for Right BKA. - DVT prophylaxis with Lovenox - discussed with [facility]. copay for snf defaulted. CM consulted. pt agreeable for snf. just need to get accepting facility pt not ready for dc yet Podiatry to change bandages today He continues with severe anasarca/lower ext edema and scrotal swelling Had right heart cath on last admission revealing increased right heart pressure. He has also some mild systolic dysfunction ef 45% Also he has sleep apnea/hypoventilation will initiate nighttime bipap to hopefully help with right heart pressure cont iv albumen and lasix ch for urine output if able to place can try to stop procardia or lower to ?help with edema monitor bmp. discussed dc abx with ID. orders written (2) Obesity hypoventilation syndrome Code(s): E66.2 - Morbid (severe) obesity with alveolar hypoventilation Status : Chronic Plan: Hypercapnic respiratory insufficiency Obesity hypoventilation syndrome COPD - 2-D echocardiogram 07/23/17: - The left ventricular systolic function is mildly reduced with an estimated ejection fraction in the range of 45- 50%. - Mild infero-posterior hypokinesis - Mild concentric left ventricular hypertrophy. - The left atrial size is moderately dilated. - RHC completed (07/28) --> Class 2 Pulm HTN, PCW 23 - No Right heart strain, so sildenafil was stopped - Pt is noncompliant with CPAP - Pt still requiring 2L of supplemental O2 (3) COPD (chronic obstructive pulmonary disease) Code(s): J44.9 - Chronic obstructive pulmonary disease, unspecified Status: Chronic Plan: - chronic does not appear to be in acute exacerbation (4) Diabetes Code(s): E11.9 - Type 2 diabetes mellitus without complications Status: Chronic Plan: - Cont OHA and SSI. - Titrate as needed (5) HTN (hypertension) Code(s): I10 - Essential (primary) hypertension Status: Chronic Plan: Hypertension - cont current BP meds, , Cozaar 50mg q12H, Hydralazine 50mg TID, Coreg 25mg BID -try to lower or stop procardia. - Hydralazine PO PRN (6) Anemia Code(s): D64.9 - Anemia, unspecified Status: Chronic Plan: - Pts H/H has slowly been declining. No noted active GIB - iron deficiency anemia - Hg 8.7 (08/16) - During the last admission the pt was transfused with 2 units PRBCs (08/10) - During recent admission pt underwent evaluation with EGD/Colonoscopy (08/11/17 ) with Dr. Mccormick - int/ext hemorrhoids - sigmoid diverticulosis - esophagitis - gastric biopsies taken, results pending - Repeat labs on 08/21/17 with Hgb 8.3/Hct 24.6 -> 7.7/23.5 (08/24) -> 7.8/24.2, 7.6 (08/27), 8.5 (08/28) - Iron studies 08/08/17 Iron 26, TIBC 244, % saturation 10.7, ferritin 246 - ferritin 154 (08/27), retic 82 (08/27); b12 515, folate 7.9 (08/26) - case informally d/w Hematology - since ferritin > 100, unlikely d/t ANAHI - cancel Venofer - obtain peripheral smear, SPEP, UPEP - consider obtaining bone marrow - Hg improved following transfusion of 2 units PRBCs (08/27/17) (7) CAD (coronary artery disease) Code(s): I25.10 - Atherosclerotic heart disease of [place] coronary artery without angina pectoris Status: Chronic Plan: CAD (coronary artery disease) Recent history of pulmonary embolism - Patient had a PE approximately 8 months ago and was on Coumadin for until the cardiac cauterization 06/17/17 - Patient with recent cardiac catheterization with PCI 06/17/17 - After catheterization patient's Coumadin was DC'd and he was started on Aspirin and Plavix - Continue patient's Aspirin 81 mg daily, Plavix 75 mg PO daily, Atorvastatin 40 mg PO QHS and Coreg BID (8) Anxiety and depression Code(s): F41.9 - Anxiety disorder, unspecified; F32.9 - Major depressive disorder, single episode, unspecified Status: Chronic Plan: - Cont. Paxil 20mg daily (1) Rupture of right Achilles tendon Qualifiers: Encounter type: subsequent encounter Qualified Code(s): S86.011D - Strain of right Achilles tendon, subsequent encounter
[2017-08-31] MEDS: Insulin NovoLOG Aspart Correctional Sugar Inj SQ SCH ×2 (09:37→17:22)
[2017-08-31] MEDS ORDERED: Morphine Inj 4 MG/ML Vial IV.PUSH PRN (10:15)
--- NOTE | 2017-08-31 11:10 | US ---
EXAM DATE: 08/31/2017 10:53 AM EDT AGE/SEX: 47 years / Male INDICATIONS: Scrotal swelling. CLINICAL DATA: This is the patient's initial encounter. Patient reports that signs and symptoms have been present for 2 weeks and indicates a pain score of 9/10. MEDICAL/SURGICAL HISTORY: Hypercholesterolemia. Renal calculi. Osteoporosis. Neuropathy. HTN . Hyperlipidemia. Irregular heartbeat. COPD. Asthma. ARF. Arthritis. Type II Diabetes. Gout. Anticoa gulant therapy, Plavix & Aspirin 81mg. MRSA. Tonsillectomy. Coronary artery stent. Anal fissures. C hest surgery. Left inner thigh abscess removed. COMPARISON: [facility], CT ABDOMEN & PELVIS W/O CONTRAST, 02/14/2016. . MEASUREMENTS: Right Testicle:__4.1 x 2.8 x 3.0 cm Left Testicle:__3.9 x 2.9 x 2.9 cm FINDINGS: RIGHT: Testicle: Homogeneous echotexture without intra or extratesticular mass. Blood flow is symmetric and within normal limits. Epididymis: Within normal limits. Hydrocele: Small hydrocele present. Varicocele: No evidence of varicocele. LEFT: Testicle: Homogeneous echotexture without intra or extratesticular mass. Blood flow is symmetric and within normal limits. Epididymis: Within normal limits. Hydrocele: Small hydrocele present. Varicocele: No evidence of varicocele. Scrotum: Significant scrotal edema with small trace hydroceles. CONCLUSION: 1. Significant scrotal edema. 2. Trace hydrocele 3. Testicles appear normal. Electronically signed by: Diego Hahn MD 08/31/2017 11:09 AM EDT
--- NOTE | 2017-08-31 13:44 | P.PNPOD ---
Physical Exam Vital signs: Vital Signs 08/30/17 14:20 08/30/17 15:38 08/30/17 16:00 Temperature 98.9 F Pulse Rate 89 Respiratory Rate 20 20 20 Blood Pressure 153/77 H Pulse Oximetry 93 L 08/30/17 16:53 08/30/17 20:00 08/30/17 23:43 Temperature 98.0 F Pulse Rate 90 79 77 Respiratory Rate 16 Blood Pressure 140/82 Pulse Oximetry 99 08/30/17 23:49 08/31/17 00:00 08/31/17 04:00 Temperature 98.1 F 97.9 F Pulse Rate 117 H 75 67 Respiratory Rate 16 14 Blood Pressure 130/69 120/69 Pulse Oximetry 98 96 08/31/17 08:00 08/31/17 12:00 Temperature 98.1 F 97.2 F L Pulse Rate 84 84 Respiratory Rate 18 18 Blood Pressure 156/83 H 135/82 Pulse Oximetry 93 L 92 L Intake & Output 08/30/17 08/31/17 08/31/17 18:59 06:59 18:59 Intake Total 1060 / 1060 200 / 200 100 / 100 Output Total 1800 / 1800 Balance -740 / -740 200 / 200 100 / 100 Weight 181.4 kg 181.4 kg Intake: IV 100 / 100 200 / 200 100 / 100 Flexbumin 25% Inj 100 ML @ 60 100 / 100 100 / 100 100 / 100 mls/hr IV.SIG BID@08,17 [facility] Rx# :[id number] Rocephin Inj 2,000 MG In NS Inj 100 / 100 100 ML @ 200 mls/hr IV.SIG Q24H [facility] Rx#:[id number] Oral 960 / 960 Output: Urine 1800 / 1800 Other: Date of Last Bowel Movement 08/29/17 - Constitutional no acute distress Medications and Allergies Active Medications: Active Medications Hydrocodone Bitart/Acetaminophen ([place] 10/325) 1 tab PO Q4H PRN PRN Reason: pain 3-10 Last Admin: 08/31/17 12:03 Dose: 1 tab Al Hydroxide/Mg Hydroxide (Milk Of Magnesia Liq) 30 ml PO Q12H PRN PRN Reason: MILD CONSTIPATION Allopurinol (Zyloprim) 100 mg PO DAILY [facility] Last Admin: 08/31/17 09:13 Dose: 100 mg Aspirin (Ecotrin) 81 mg PO DAILY [facility] Last Admin: 08/31/17 09:13 Dose: 81 mg Atorvastatin Calcium (Lipitor) 40 mg PO HS [facility] Last Admin: 08/30/17 20:45 Dose: 40 mg Benzocaine/Menthol (Chloraseptic Sore Throat Lozenge) 1 lozenge BUCCAL Q2HR PRN PRN Reason: sore throat Bisacodyl (Dulcolax Supp) 10 mg RECTAL DAILY PRN PRN Reason: SEVERE CONSTIPATION Carvedilol (Coreg) 25 mg PO BID [facility] Last Admin: 08/31/17 09:13 Dose: 25 mg Clopidogrel Bisulfate (Plavix) 75 mg PO DAILY [facility] Last Admin: 08/31/17 09:12 Dose: 75 mg Dextrose (D50w Vial) 50 ml IV.PUSH UNSCH PRN PRN Reason: PER HYPOGLYCEMIA PROTOCOL Enoxaparin Sodium (Lovenox Inj) 40 mg SQ Q24H [facility] Last Admin: 08/30/17 22:04 Dose: 40 mg Furosemide (Lasix Inj) 80 mg IV.PUSH BID@0900,1800 [facility] Last Admin: 08/31/17 09:14 Dose: 80 mg Gabapentin (Neurontin) 300 mg PO Q8HR [facility] Last Admin: 08/31/17 06:00 Dose: 300 mg Glimepiride (Amaryl) 2 mg PO BIDAC [facility] Last Admin: 08/31/17 09:08 Dose: 2 mg Glucagon (Glucagon Inj) 1 mg OTHER PRN PRN PRN Reason: for Hypoglycemia Protocol Heparin Sodium (Porcine) (Heparin Central Flush) 0 unit IV.FLUSH DAILY [facility] Last Admin: 08/31/17 09:12 Dose: 500 unit Heparin Sodium (Porcine) (Heparin Central Flush) 0 unit IV.FLUSH PRN PRN PRN Reason: Flush PICC Line Hydralazine HCl (Apresoline) 50 mg PO TID [facility] Last Admin: 08/31/17 09:13 Dose: 50 mg Ceftriaxone Sodium 2,000 mg/ (Sodium Chloride) 100 mls @ 200 mls/hr IV.SIG Q24H [facility] Last Infusion: 08/30/17 21:15 Dose: Infused Albumin Human (Flexbumin 25% Inj) 100 mls @ 60 mls/hr IV.SIG BID@08,17 [facility] Last Infusion: 08/31/17 11:34 Dose: Infused Insulin Aspart (Novolog Insulin Suppl Scale Inj) 0 unit SQ ACHS [facility]; Protocol Last Admin: 08/31/17 09:37 Dose: 2 unit Lactulose (Lactulose Liq) 30 ml PO DAILY PRN PRN Reason: SEVERE CONSTIPATION Lorazepam (Ativan) 0.5 mg PO Q6H PRN PRN Reason: ANXIETY Losartan Potassium (Cozaar) 50 mg PO Q12HR [facility] Last Admin: 08/31/17 09:13 Dose: 50 mg Morphine Sulfate (Morphine Inj) 2 mg IV.PUSH Q4H PRN PRN Reason: BREAKTHROUGH PAIN Last Admin: 08/31/17 10:13 Dose: 2 mg Naloxone HCl (Narcan Inj) 0.4 mg IV.PUSH UNSCH PRN PRN Reason: SEE LABEL COMMENTS Nifedipine (Procardia Xl) 30 mg PO BID [facility] Nystatin (Mycostatin Liq) 5 ml SWISH-SWAL QID [facility] Last Admin: 08/31/17 09:12 Dose: 5 ml Pantoprazole Sodium (Protonix) 40 mg PO DAILY [facility] Last Admin: 08/31/17 09:13 Dose: 40 mg Paroxetine HCl (Paxil) 20 mg PO DAILY [facility] Last Admin: 08/31/17 09:13 Dose: 20 mg Senna/Docusate Sodium ([place]-Colace) 1 tab PO BID [facility] Last Admin: 08/31/17 09:14 Dose: 1 tab Sennosides (Senokot) 17.2 mg PO Q12H PRN PRN Reason: MODERATE CONSTIPATION Sodium Chloride ([place] Nasal [place]) 1 spray EACH NARE Q6H PRN PRN Reason: FOR DRYNESS Last Admin: 08/22/17 13:18 Dose: 1 spray Sodium Chloride (Ns Flush) 2 ml IV.FLUSH UNSCH PRN PRN Reason: FLUSH AFTER USING IV ACCESS Sodium Chloride (Ns Flush) 2 ml IV.FLUSH BID [facility] Last Admin: 08/31/17 09:38 Dose: 2 ml Sodium Chloride (Ns Flush) 0 ml IV.FLUSH DAILY [facility] Last Admin: 08/31/17 09:38 Dose: 5 ml Sodium Chloride (Ns Flush) 0 ml IV.FLUSH PRN PRN PRN Reason: FLUSH AFTER USING IV ACCESS Sodium Chloride (Ns Flush) 0 ml IV.FLUSH PRN PRN PRN Reason: Flush After Blood Draws Temazepam (Restoril) 15 mg PO HS PRN PRN Reason: INSOMNIA Last Admin: 08/29/17 21:47 Dose: 15 mg Throat Lozenges (Chloraseptic [place]) 2 spray OROPHARYNG Q2H PRN PRN Reason: sore throat Allergies Allergy/AdvReac Type Severity Reaction Status Date / Time codeine Allergy Severe Itching Verified 08/16/17 19:14 quetiapine Allergy Intermediate Hallucinati Verified 08/16/17 19:14 ons tramadol Allergy Unknown UNKNOWN Verified 08/20/17 10:36 clonidine AdvReac Severe ARNDT, dry Verified 08/20/17 10:36 mouth, "felt drunk" lisinopril AdvReac Unknown abnormal Verified 08/16/17 19:14 labs K level Home Medications Medication Instructions Recorded Confirmed Type allopurinol 100 mg PO DAILY 08/20/17 08/20/17 History aspirin 81 mg PO DAILY 08/20/17 08/20/17 History atorvastatin 40 mg PO HS 08/20/17 08/20/17 History carvedilol 25 mg PO BID 08/20/17 08/20/17 History clindamycin HCl 300 mg PO Q6H 08/20/17 08/20/17 History clopidogrel 75 mg PO DAILY 08/20/17 08/20/17 History furosemide 40 mg PO DAILY 08/20/17 08/20/17 History gabapentin 300 mg PO Q8H 08/20/17 08/20/17 History glimepiride 2 mg PO BIDAC 08/20/17 08/20/17 History hydralazine 50 mg PO TID 08/20/17 08/20/17 History hydrocodone-acetaminophen 1 tab PO Q4H PRN 08/20/17 08/20/17 History insulin aspart U-100 [Novolog 1 sliding scale dose SUB-Q 08/20/17 08/20/17 History U-100 Insulin aspart] DIRECTED losartan 50 mg PO Q12H 08/20/17 08/20/17 History metformin 750 mg PO BID 08/20/17 08/20/17 History nifedipine 60 mg PO Q12H 08/20/17 08/20/17 History nystatin 5 ml PO QID 08/20/17 08/20/17 History pantoprazole 40 mg PO DAILY 08/20/17 08/20/17 History paroxetine HCl 20 mg PO DAILY 08/20/17 08/20/17 History Results - Labs CBC & Chem 7: 08/29/17 05:50 08/31/17 06:05 Laboratory Results - last 24 hr 08/27/17 08/30/17 08/30/17 11:35 17:06 20:43 Sodium Potassium Chloride Carbon Dioxide Anion Gap BUN Creatinine Estimated GFR POC Glucose 197 H 281 H Random Glucose Calcium PEP Pathologist Comment 08/31/17 08/31/17 08/31/17 06:05 08:14 12:23 Sodium 135 L Potassium 4.8 Chloride 96 L Carbon Dioxide 33.3 H Anion Gap 6 BUN 34 H Creatinine 1.22 Estimated GFR 64 L POC Glucose 185 H 170 H Random Glucose 172 H Calcium 8.7 PEP Pathologist Comment - Imaging Impressions Scrotum Ultrasound 08/31/17 00:00 CONCLUSION: 1. Significant scrotal edema. 2. Trace hydrocele 3. Testicles appear normal. - Procedures Right posterior Achilles incision and drainage 08/24/[address] Hull Assessment and Plan - Assessment (1) Abscess of right lower leg Code(s): L02.415 - Cutaneous abscess of right lower limb Status: Acute (2) Rupture of right Achilles tendon Code(s): S86.011A - Strain of right Achilles tendon, initial encounter Status : Acute - Plan Changed dressing Right lower extremity and there is reduced edema and reduced erythema. Incision area from I&D slightly macerated. No active drainage present. Ordered betadine wet to dry daily per nursing to R heel, then reapply current splint. [employer] order to apply new splint just prior to discharge. Strict nonweightbearing right lower extremity. Recommend patient continue to stay inpatient to assess wound, continue IV antibiotics, manage continued edema issues, and pain control. (2) Rupture of right Achilles tendon Qualifiers: Encounter type: subsequent encounter Qualified Code(s): S86.011D - Strain of right Achilles tendon, subsequent encounter
[2017-08-31 13:52] LABS: ABG Base Excess 8.1 mmol/L (-2-2); ABG PCO2 55 mmHg (38-42); ABG PO2 57 mmHg (61-120)
--- NOTE | 2017-08-31 15:56 | XR ---
EXAM DATE: 08/31/2017 3:41 PM EDT AGE/SEX: 47 years / Male INDICATIONS: Short of breath. CLINICAL DATA: This is the patient's initial encounter. Patient reports that signs and symptoms have been present for 2 days and indicates a pain score of 0/10. MEDICAL/SURGICAL HISTORY: Chronic obstructive pulmonary disease. Congestive heart failure. Non e. COMPARISON: C, CHEST 1V SINGLE AP, 08/27/2017. . FINDINGS: The cardiac silhouette is enlarged in transverse diameter. There is prominence of the central pulmona ry vasculature with indistinct vascular margins compatible with vascular congestion but no evidence o f overt failure. The findings are improved when compared with the prior exam. CONCLUSION: Resolving congestive heart failure Electronically signed by: Juarez Vasquez MD 08/31/2017 3:55 PM EDT
--- NOTE | 2017-08-31 18:56 | MB ---
cc: Luis Armando Sawyer MD DATE: 08/31/2017 REQUESTING PHYSICIAN: Dr. Melissa REASON FOR CONSULTATION: Evaluation for respiratory insufficiency. HISTORY OF PRESENT ILLNESS: Mr. Rios is a 47-year-old morbidly obese male with history of sleep apnea. The patient had an Achilles tendon rupture. The patient had a surgery done in the hospital. He had a prolonged hospital course and has infection and respiratory insufficiency. He was discharged home but 2 days later it came back in the hospital with infected wound. The patient is admitted in the hospital. He was undergoing antibiotic. Today, he was getting more short of breath and [employer] was called. He was found to be in respiratory distress. He was put on BiPAP. He is feeling much better now. . PAST MEDICAL HISTORY: Significant for history of COPD, obstructive sleep apnea, coronary artery disease, diabetes with neuropathy, Achilles tendon rupture, morbid obesity, anxiety and depression. CURRENT MEDICATIONS: 1. Hydrocodone for pain, 2. IV albumin 3. Aspirin 81 mg. 2. Lipitor 40 mg a day. 3. Coreg 25 mg twice a day. 4. Rocephin 1 gram daily. 5. Plavix 75 mg daily. 6. Lovenox 40 mg q.24 hours. 7. Lasix 80 mg IV. 8. Neurontin 300 mg every 8 hours. 9. Glimepiride 2 mg twice a day. 10. Hydralazine 50 mg 3 times a day. 11. NovoLog insulin. 12. Lorazepam p.r.n. 13. Losartan 50 mg every 12 hours. 14. Nifedipine XL 30 mg a day. 15. Protonix 40 mg a day. 16. Paroxetine 20 mg a day. 17. Temazepam 15 mg at nighttime. ALLERGIES: ALLERGIC TO CODEINE, TRAMADOL, CLONIDINE, LISINOPRIL SOCIAL HISTORY: He is . No history of smoking. REVIEW OF SYSTEMS: The patient is lethargic, has increased swelling in his scrotum, has swelling in his leg. PHYSICAL EXAMINATION: GENERAL: Reveals a morbidly obese male, mildly short of breath, is somewhat tired on the BiPAP. VITAL SIGNS: Blood pressure 133/68, heart rate 86, respirations 18, temperature 98.1. HEENT: Pupils are equal and reactive. NECK: Supple. JVD not raised. CHEST: Equal bilaterally, no rhonchi. HEART: S1, S2 normal. ABDOMEN: Obese, nontender. Bowel sounds are present. GENITOURINARY: He has a large scrotal edema. EXTREMITIES: Swelling in the legs. CENTRAL NERVOUS SYSTEM: The patient moves extremities and is oriented to place, person, and time. IMPRESSION: 1. Hypercapnic respiratory insufficiency. 2. Chronic obstructive pulmonary disease. 3. Obstructive sleep apnea. 4. Achilles tendon repair and leg infection. 5. Diabetes mellitus. 5. Scrotal edema. PLAN: I discussed with patient and his . We will maintain him on BiPAP, supplement oxygen to keep the saturation between 88-92%. Continue aerosol treatment, antibiotic per Infectious Disease. He is being diuresed. Further treatment will depend on the course in the hospital. Thank you, Dr. Melissa, for this consultation. MD POLLY Wellington/ , 06:34 PM , 06:54 PM [email or web address]
[2017-08-31] MEDS: Enoxaparin Inj 40 MG/0.4 ML Syringe SQ SCH (22:42)
[2017-09-01 07:02] LABS: Calcium 8.7 mg/dL (8.5-10.1); Potassium 4.5 meq/L (3.5-5.1)
[2017-09-01] MEDS: Albumin Human 25% Inj 100 ML IV.SIG SCH (07:06)
[2017-09-01] MEDS: Glimepiride 2 MG Tablet PO SCH (07:06)
[2017-09-01] MEDS ORDERED: Bumetanide Inj 25 MG/100 ML BAG IV.CONT SCH ×2 (08:00→21:00)
--- NOTE | 2017-09-01 08:34 | P.PNIM ---
Subjective Interval history: breathing ok. used bipap overnight. Physical Exam Vital signs: Vital Signs 08/31/17 12:00 08/31/17 12:45 08/31/17 15:15 Temperature 97.2 F L Pulse Rate 84 91 H Respiratory Rate 18 23 Blood Pressure 135/82 Pulse Oximetry 92 L 90 L 08/31/17 15:50 08/31/17 16:00 08/31/17 16:20 Temperature 98.1 F Pulse Rate 86 Respiratory Rate 17 18 15 Blood Pressure 133/68 Pulse Oximetry 93 L 08/31/17 17:30 08/31/17 18:00 08/31/17 20:00 Temperature 98.0 F Pulse Rate 98 H 91 H Respiratory Rate 21 Blood Pressure 175/81 H Pulse Oximetry 98 92 L 08/31/17 20:16 08/31/17 20:43 08/31/17 22:00 Temperature Pulse Rate 101 H 93 H Respiratory Rate 22 Blood Pressure Pulse Oximetry 91 L 99 09/01/17 00:00 09/01/17 01:24 09/01/17 02:00 Temperature 98.2 F Pulse Rate 93 H 100 H 95 H Respiratory Rate 22 21 Blood Pressure 165/92 H Pulse Oximetry 90 L 99 09/01/17 04:00 09/01/17 04:28 09/01/17 06:00 Temperature 98.7 F Pulse Rate 88 86 88 Respiratory Rate 18 20 Blood Pressure 159/81 H Pulse Oximetry 100 Intake & Output 08/31/17 09/01/17 09/01/17 18:59 06:59 18:59 Intake Total 340 / 340 460 / 460 Output Total 350 / 350 2272 / 2272 Balance - -1811 / -181 Weight 181.4 kg Intake: IV 100 / 100 100 / 100 Flexbumin 25% Inj 100 ML @ 60 100 / 100 100 / 100 mls/hr IV.SIG BID@ [facility] Rx# :[id number] Oral 240 / 240 360 / 360 Output: Urine 350 / 350 2250 / 2250 Stool Urine/Stool Mix Estimated Blood Loss Other: Date of Last Bowel Movement 08/30/17 08/30/17 # Bowel Movements 0 Narrative: oriented lying in bed heart reg lung cta abd s/nt ext anasarca flanks/lower ext/scrotum right leg splinted Results - Labs CBC & Chem 7: 08/29/17 05:50 09/01/17 06:18 Laboratory Results - last 24 hr 08/31/17 08/31/17 08/31/17 12:23 13:30 16:40 Puncture Site Left radial Patient Temperature 98.6 O2 Saturation 87 L* ABG pH 7.40 ABG pCO2 55 H* ABG pO2 57 L* ABG HCO3 33 H ABG O2 Content 10.8 L ABG Base Excess 8.1 H ABG Methemoglobin 0.9 Robby Test Present Hemoglobin 8.8 L Carboxyhemoglobin 1.8 O2 Delivery Device Venti mask Inspired O2 50 Critical Value Yes Sodium Potassium Chloride Carbon Dioxide Anion Gap BUN Creatinine Estimated GFR POC Glucose 170 H 167 H Random Glucose Calcium Ur 24 Hour Volume Ur Total Protein 24 Hr 08/31/17 08/31/17 09/01/17 20:20 22:26 06:18 Puncture Site Patient Temperature O2 Saturation ABG pH ABG pCO2 ABG pO2 ABG HCO3 ABG O2 Content ABG Base Excess ABG Methemoglobin Robby Test Hemoglobin Carboxyhemoglobin O2 Delivery Device Inspired O2 Critical Value Sodium 136 Potassium 4.5 Chloride 96 L Carbon Dioxide 33.0 H Anion Gap 7 BUN 29 H Creatinine 0.96 Estimated GFR 84 L POC Glucose 226 H Random Glucose 150 H Calcium 8.7 Ur 24 Hour Volume 3075 Ur Total Protein 24 Hr 82 Microbiology 08/24/17 15:00 Tissue - Ankle Fungal Smear - Final No fungal elements seen 08/24/17 15:00 Tissue - Ankle Fungal Culture - Preliminary No growth in 1 week 08/24/17 15:00 Tissue - Ankle Acid Fast Bacilli Smear - Final No acid fast bacilli seen 08/24/17 15:00 Tissue - Ankle Mycobacterial Culture - Preliminary No growth in 1 week - Imaging Impressions Scrotum Ultrasound 08/31/17 00:00 CONCLUSION: 1. Significant scrotal edema. 2. Trace hydrocele 3. Testicles appear normal. Chest X-Ray 08/31/17 14:02 CONCLUSION: Resolving congestive heart failure - Procedures Right posterior Achilles incision and drainage 08/24/[address] Hull Assessment and Plan - Assessment (1) Rupture of right Achilles tendon Code(s): S86.011A - Strain of right Achilles tendon, initial encounter Status : Acute Plan: (1) Rupture of right Achilles tendon Code(s): S86.011A - Strain of right Achilles tendon, initial encounter Status : Acute Plan: Open Achilles rupture, right - Recent admission with Achilles rupture - Pt underwent open repair of right Achilles tendon rupture with flexor hallucis longus tendon transfer and gastrocnemius recession, right lower extremity on 07/24/[address] Murillo. - Per podiatry, pt will need to be strict non-weight bearing for 6-8 weeks. - Pt was noted to have increased swelling and pain in the RLE on 08/04 - LE Doppler US (08/04) --> Is negative for DVT - Refused dc to snf and was noncompliant with weight bearing instructions. - Pt was readmitted with infection at operative site on 08/16 - He was seen by podiatry in clinic on 08/16 and sent to ED - MRI right ankle (08/16): 1. Postoperative change at the distal Achilles and calcaneus. Increased signal within the posterior calcaneus can all be consistent with postoperative change. It would be difficult to rule out osteomyelitis. 2. Fluid seen around the Achilles tendon. More superiorly in the mid lower leg, there is a larger fluid collection with peripheral enhancement. There is also a thinner fluid collection seen more superiorly in the proximal lower leg around the lateral aspect of the soleus muscle. These fluid collections could be postoperative seromas. An abscess could have a similar appearance. - debra and Mehran (08/17) - Rocephin (08/17 - present) - Comgmt with ID & Podiatry - Pt had a previous outpt culture taken on 08/11 which grew out Enterobacter cloacae - Right posterior Achilles incision and drainage 08/24/[address] Hull - Intraoperative wound Cx (08/24) --> Enterobacter cloacae - Plan to DC to SNF/rehab following hospitalization to ensure non-weight bearing of RLE and good recovery. Pt at risk for Right BKA. - DVT prophylaxis with Lovenox - discussed with fhcp. copay for snf defaulted. CM consulted. pt agreeable for snf. just need to get accepting facility pt not ready for dc yet He continues with severe anasarca/lower ext edema and scrotal swelling Had right heart cath on last admission revealing increased right heart pressure. He has also some mild systolic dysfunction ef 45% Also he has sleep apnea/hypoventilation Pt moved to ICU after Halicat and hypoxia on 08/31. Pt had received small dose of morphine a few hrs before the event. He was refusing bipap but now agreeable. Pt being followed by Dr Digna smith. change iv lasix to bumex gtt and follow bmp closely ch for urine output if able to place can try to stop procardia or lower to ?help with edema. lowered on 08/31 discussed dc abx with ID. orders written (2) Obesity hypoventilation syndrome Code(s): E66.2 - Morbid (severe) obesity with alveolar hypoventilation Status : Chronic Plan: Hypercapnic respiratory insufficiency Obesity hypoventilation syndrome COPD - 2-D echocardiogram 07/23/17: - The left ventricular systolic function is mildly reduced with an estimated ejection fraction in the range of 45- 50%. - Mild infero-posterior hypokinesis - Mild concentric left ventricular hypertrophy. - The left atrial size is moderately dilated. - RHC completed (07/28) --> Class 2 Pulm HTN, PCW 23 - No Right heart strain, so sildenafil was stopped - Pt is noncompliant with CPAP - Pt still requiring 2L of supplemental O2 (3) COPD (chronic obstructive pulmonary disease) Code(s): J44.9 - Chronic obstructive pulmonary disease, unspecified Status: Chronic Plan: - chronic does not appear to be in acute exacerbation (4) Diabetes Code(s): E11.9 - Type 2 diabetes mellitus without complications Status: Chronic Plan: - Cont OHA and SSI. - Titrate as needed (5) HTN (hypertension) Code(s): I10 - Essential (primary) hypertension Status: Chronic Plan: Hypertension - cont current BP meds, , Cozaar 50mg q12H, Hydralazine 50mg TID, Coreg 25mg BID -try to lower or stop procardia. - Hydralazine PO PRN (6) Anemia Code(s): D64.9 - Anemia, unspecified Status: Chronic Plan: - Pts H/H has slowly been declining. No noted active GIB - iron deficiency anemia - Hg 8.7 (08/16) - During the last admission the pt was transfused with 2 units PRBCs (08/10) - During recent admission pt underwent evaluation with EGD/Colonoscopy (08/11/17 ) with Dr. Bratu - int/ext hemorrhoids - sigmoid diverticulosis - esophagitis - gastric biopsies taken, results pending - Repeat labs on 08/21/17 with Hgb 8.3/Hct 24.6 -> 7.7/23.5 (/) -> 7.8/24.2, 7.6 (08/27), 8.5 (08/28) - Iron studies 08/08/17 Iron 26, TIBC 244, % saturation 10.7, ferritin 246 - ferritin 154 (08/27), retic 82 (/); b12 515, folate 7.9 (08/26) - case informally d/w Hematology - since ferritin > 100, unlikely d/t ANAHI - cancel Venofer - obtain peripheral smear, SPEP, UPEP - consider obtaining bone marrow - Hg improved following transfusion of 2 units PRBCs (08/27/17) (7) CAD (coronary artery disease) Code(s): I25.10 - Atherosclerotic heart disease of [place] coronary artery without angina pectoris Status: Chronic Plan: CAD (coronary artery disease) Recent history of pulmonary embolism - Patient had a PE approximately 8 months ago and was on Coumadin for until the cardiac cauterization 06/17/17 - Patient with recent cardiac catheterization with PCI 06/17/17 - After catheterization patient's Coumadin was DC'd and he was started on Aspirin and Plavix - Continue patient's Aspirin 81 mg daily, Plavix 75 mg PO daily, Atorvastatin 40 mg PO QHS and Coreg BID (8) Anxiety and depression Code(s): F41.9 - Anxiety disorder, unspecified; F32.9 - Major depressive disorder, single episode, unspecified Status: Chronic Plan: - Cont. Paxil 20mg daily (1) Rupture of right Achilles tendon Qualifiers: Encounter type: subsequent encounter Qualified Code(s): S86.011D - Strain of right Achilles tendon, subsequent encounter
[2017-09-01] MEDS: Heparin Central Flush 100 UNIT/ML 5 ML Vial IV.FLUSH SCH (09:12)
[2017-09-01] MEDS: Nystatin Liq 500,000 UNIT/5 ML UDC SWISH-SWAL SCH ×2 (09:13→20:25)
[2017-09-01] MEDS: Carvedilol 12.5 MG Tablet PO SCH ×3 (09:13→20:26)
[2017-09-01] MEDS: hydrALAZINE 25 MG Tablet PO SCH ×3 (09:14→13:30)
[2017-09-01] MEDS: Allopurinol 100 MG Tablet PO SCH (09:36)
[2017-09-01] MEDS: Senna/Docusate Sodium 8.6/50 MG Tablet PO SCH ×2 (10:58→20:26)
[2017-09-01] MEDS: Gabapentin 300 MG Capsule PO SCH ×2 (13:38→21:38)
--- NOTE | 2017-09-01 13:43 | ECG ---
Date Performed: 08/31/2017 Time Performed: 13:44:24 PTAGE: 47 years EKG: Sinus rhythm . Low QRS voltages in precordial leads Diffuse artifact precluded accurate evaluation but appears to be largely unchanged from prior tracing Borderline ECG PREVIOUS TRACING : 08/24/2017 06.39 DOCTOR: Vince Rincon Interpretating Date/Time 09/01/2017 13:41:37
--- NOTE | 2017-09-01 18:03 | P.PNPL ---
Subjective Interval history: 47 YOWM with Achelis tendon repair,JUDY,COPD Has huge scrotal swelling Started on Bumex drip Used CPAP last night Alert, awake. Physical Exam Vital signs: Vital Signs 08/31/17 20:00 08/31/17 20:16 08/31/17 20:43 Temperature 98.0 F Pulse Rate 91 H 101 H Respiratory Rate 21 22 Blood Pressure 175/81 H Pulse Oximetry 92 L 91 L 99 08/31/17 22:00 09/01/17 00:00 09/01/17 01:24 Temperature 98.2 F Pulse Rate 93 H 93 H 100 H Respiratory Rate 22 21 Blood Pressure 165/92 H Pulse Oximetry 90 L 99 09/01/17 02:00 09/01/17 04:00 09/01/17 04:28 Temperature 98.7 F Pulse Rate 95 H 88 86 Respiratory Rate 18 20 Blood Pressure 159/81 H Pulse Oximetry 100 09/01/17 06:00 09/01/17 08:00 09/01/17 08:54 Temperature Pulse Rate 88 88 88 Respiratory Rate 18 Blood Pressure Pulse Oximetry 100 98 09/01/17 10:00 09/01/17 10:53 09/01/17 11:12 Temperature Pulse Rate 102 H 102 H Respiratory Rate 16 24 Blood Pressure Pulse Oximetry 09/01/17 12:00 09/01/17 12:52 09/01/17 14:19 Temperature 98.6 F Pulse Rate 99 H Respiratory Rate 18 18 16 Blood Pressure 158/67 H Pulse Oximetry 09/01/17 16:00 09/01/17 16:40 Temperature Pulse Rate 99 H 89 Respiratory Rate 18 Blood Pressure Pulse Oximetry Intake & Output 08/31/17 09/01/17 09/01/17 18:59 06:59 18:59 Intake Total 340 / 340 460 / 460 Output Total 350 / 350 2272 / 2272 Balance - -1811 / Weight 181.4 kg Intake: IV 100 / 100 100 / 100 Flexbumin 25% Inj 100 ML @ 60 100 / 100 100 / 100 mls/hr IV.SIG BID@ [facility] Rx# :[id number] Oral 240 / 240 360 / 360 Output: Urine 350 / 350 2250 / 2250 Stool Urine/Stool Mix Estimated Blood Loss Other: Date of Last Bowel Movement 08/30/17 08/30/17 08/30/17 # Bowel Movements 0 GENERAL: Morbidly obese Wm, NAD SKIN: Warm and dry. HEAD: Normocephalic. EYES: No scleral icterus. No injection or drainage. NECK: Supple, trachea midline. No JVD or lymphadenopathy. CARDIOVASCULAR: Regular rate and rhythm without murmurs, gallops, or rubs. RESPIRATORY: Breath sounds equal bilaterally. No accessory muscle use. GASTROINTESTINAL: Abdomen soft, non-tender, nondistended. MUSCULOSKELETAL: No cyanosis, or edema. Huge scrotal swelling leg wound BACK: Nontender without obvious deformity. No CVA tenderness. Assessment and Plan - Plan IMPRESSION: 1. Hypercapnic respiratory insufficiency. 2. Chronic obstructive pulmonary disease. 3. Obstructive sleep apnea. 4. Achilles tendon repair and leg infection. 5. Diabetes mellitus. 5. Scrotal edema. PLAN: Bumex drip Aerosol nebs Supplement 02 CPAP at night Cont Abx SQ Lovenox
[2017-09-01 19:12] LABS: Calcium 9.6 mg/dL (8.5-10.1); Carbon Dioxide 33.6 meq/L (21.0-32.0); Magnesium 1.8 mg/dL (1.5-2.5); Phosphorus 3.4 mg/dL (2.5-4.9); Potassium 4.2 meq/L (3.5-5.1)
[2017-09-01] MEDS: Insulin NovoLOG Aspart Correctional Sugar Inj SQ SCH (20:26)
[2017-09-01] MEDS ORDERED: hydrALAZINE HCl Inj 20 MG/ML Vial IV.PUSH ONE (22:16)
[2017-09-01] MEDS: Enoxaparin Inj 40 MG/0.4 ML Syringe SQ SCH (22:36)
[2017-09-02] MEDS: LORazepam 0.5 MG Tablet PO PRN ×2 (02:38→23:52)
[2017-09-02] MEDS ORDERED: Methocarbamol 500 MG Tablet PO ONE ×2 (04:15→23:30)
[2017-09-02 04:36] LABS: Baso # (Auto) 0.1 th/mm3 (0.0-0.2); Eos # (Auto) 0.1 th/mm3 (0.0-0.4); Eos % (Auto) 1.5 % (0.0-4.0); Hematocrit 25.9 % (39.0-51.0); Hemoglobin 8.5 gm/dL (13.0-17.0); Lymph # (Auto) 0.7 th/mm3 (1.0-4.8); Lymph % (Auto) 12.8 % (9.0-44.0); Mean Corpuscular HGB Conc 32.7 % (32.0-36.0); Mean Corpuscular Hemoglobin 26.3 pg (27.0-34.0); Mean Corpuscular Volume 80.3 fL (80.0-100.0); Mean Platelet Volume 6.3 fL (7.0-11.0); Mono # (Auto) 0.9 th/mm3 (0.0-0.9); Mono % (Auto) 17.8 % (0.0-8.0); Neut # (Auto) 3.5 th/mm3 (1.8-7.7); Neut % (Auto) 66.9 % (16.0-70.0); Platelet Count 290 th/mm3 (150-450); Red Blood Count 3.22 mil/mm3 (4.50-5.90); Red Cell Distribution Width 15.4 % (11.6-17.2); White Blood Count 5.2 th/mm3 (4.0-11.0)
[2017-09-02 05:00] LABS: Potassium 4.2 meq/L (3.5-5.1)
[2017-09-02] MEDS: Gabapentin 300 MG Capsule PO SCH ×4 (05:45→21:11)
--- NOTE | 2017-09-02 08:53 | P.PNIM ---
Subjective Interval history: massive diuresis overnight. still massively swollen panicked overnight with bipap Physical Exam Vital signs: Vital Signs 09/01/17 08:54 09/01/17 10:00 09/01/17 10:53 Temperature Pulse Rate 88 102 H Respiratory Rate 18 16 Blood Pressure Pulse Oximetry 98 09/01/17 11:12 09/01/17 12:00 09/01/17 12:52 Temperature 98.6 F Pulse Rate 102 H 99 H Respiratory Rate 24 18 18 Blood Pressure 158/67 H Pulse Oximetry 09/01/17 14:19 09/01/17 16:00 09/01/17 16:40 Temperature 98.8 F Pulse Rate 110 H 89 Respiratory Rate 16 16 18 Blood Pressure 152/63 H Pulse Oximetry 09/01/17 18:00 09/01/17 19:48 09/01/17 20:00 Temperature 98.1 F Pulse Rate 89 96 H Respiratory Rate 16 Blood Pressure 184/79 H Pulse Oximetry 96 98 09/01/17 21:38 09/01/17 22:00 09/02/17 00:00 Temperature 98.1 F Pulse Rate 109 H 89 Respiratory Rate 15 14 Blood Pressure 150/69 H Pulse Oximetry 99 09/02/17 00:13 09/02/17 01:13 09/02/17 02:00 Temperature Pulse Rate 98 H 85 Respiratory Rate 16 11 L Blood Pressure Pulse Oximetry 09/02/17 03:00 09/02/17 03:35 09/02/17 04:00 Temperature 98 F Pulse Rate 86 86 Respiratory Rate 12 15 Blood Pressure 151/71 H Pulse Oximetry 100 96 09/02/17 05:45 09/02/17 06:00 09/02/17 08:00 Temperature Pulse Rate 90 90 Respiratory Rate 18 18 Blood Pressure Pulse Oximetry 96 Intake & Output 09/01/17 09/02/17 09/02/17 18:59 06:59 18:59 Intake Total 1450 / 1450 1600 / 1600 Output Total 2822 / 2822 62925 / 08433 Balance -1372 / -1372 -9200 / -9200 Weight 180 kg Intake: IV 200 / 200 Flexbumin 25% Inj 100 ML @ 60 100 / 100 mls/hr IV.SIG BID@ [facility] Rx# :[id number] Rocephin Inj 2,000 MG In NS Inj 100 / 100 100 ML @ 200 mls/hr IV.SIG Q24H [facility] Rx#:[id number] Oral 450 / 450 1400 / 1400 Anesthesia Amount 500 / 500 Other 500 / 500 Output: Urine 2800 / 2800 72849 / 95917 Stool Urine/Stool Mix Estimated Blood Loss Other: Post Void Residual 0 # Voids 6 # Incontinent Voids 0 # Urine Diapers 0 Date of Last Bowel Movement 08/30/17 08/30/17 08/30/17 # Bowel Movements 0 [address] oriented heart reg lung cta abd and lower ext and scrotum. massive edema right leg splinted. Results - Labs CBC & Chem 7: 09/02/17 04:20 09/02/17 04:20 Laboratory Results - last 24 hr 09/01/17 09/01/17 09/01/17 10:57 18:25 19:17 WBC RBC Hgb Hct MCV MCH MCHC RDW Plt Count MPV Neut % (Auto) Lymph % (Auto) [facility] % (Auto) Eos % (Auto) Baso % (Auto) Neut # (Auto) Lymph # (Auto) [facility] # (Auto) Eos # (Auto) Baso # (Auto) WBC Differential Differential Comment Sodium 137 Potassium 4.2 Chloride 95 L Carbon Dioxide 33.6 H Anion Gap 8 BUN 28 H Creatinine 1.11 Estimated GFR 71 L POC Glucose 189 H 159 H Random Glucose 128 H Calcium 9.6 D Phosphorus 3.4 Magnesium 1.8 09/01/17 09/02/17 09/02/17 20:16 04:20 04:20 WBC 5.2 RBC 3.22 L Hgb 8.5 L Hct 25.9 L MCV 80.3 MCH 26.3 L MCHC 32.7 RDW 15.4 Plt Count 290 MPV 6.3 L Neut % (Auto) 66.9 Lymph % (Auto) 12.8 [facility] % (Auto) 17.8 H Eos % (Auto) 1.5 Baso % (Auto) 1.0 Neut # (Auto) 3.5 Lymph # (Auto) 0.[address] [facility] # (Auto) 0.9 Eos # (Auto) 0.1 Baso # (Auto) 0.1 WBC Differential . Differential Comment Auto diff final Sodium 138 Potassium 4.2 Chloride 93 L Carbon Dioxide 36.0 H Anion Gap 9 BUN 30 H Creatinine 1.19 Estimated GFR 66 L POC Glucose 191 H Random Glucose 158 H Calcium 9.0 Phosphorus Magnesium - Procedures Right posterior Achilles incision and drainage 08/24/[address] Hull Assessment and Plan - Assessment (1) Rupture of right Achilles tendon Code(s): S86.011A - Strain of right Achilles tendon, initial encounter Status : Acute Plan: (1) Rupture of right Achilles tendon Code(s): S86.011A - Strain of right Achilles tendon, initial encounter Status : Acute Plan: Open Achilles rupture, right - Recent admission with Achilles rupture - Pt underwent open repair of right Achilles tendon rupture with flexor hallucis longus tendon transfer and gastrocnemius recession, right lower extremity on 07/24/[address] Murillo. - Per podiatry, pt will need to be strict non-weight bearing for 6-8 weeks. - Pt was noted to have increased swelling and pain in the RLE on 08/04 - LE Doppler US (08/04) --> Is negative for DVT - Refused dc to snf and was noncompliant with weight bearing instructions. - Pt was readmitted with infection at operative site on 08/16 - He was seen by podiatry in clinic on 08/16 and sent to ED - MRI right ankle (08/16): 1. Postoperative change at the distal Achilles and calcaneus. Increased signal within the posterior calcaneus can all be consistent with postoperative change. It would be difficult to rule out osteomyelitis. 2. Fluid seen around the Achilles tendon. More superiorly in the mid lower leg, there is a larger fluid collection with peripheral enhancement. There is also a thinner fluid collection seen more superiorly in the proximal lower leg around the lateral aspect of the soleus muscle. These fluid collections could be postoperative seromas. An abscess could have a similar appearance. - vanco and Zosyn (08/17) - Rocephin (08/17 - present) - Comgmt with ID & Podiatry - Pt had a previous outpt culture taken on 08/11 which grew out Enterobacter cloacae - Right posterior Achilles incision and drainage 08/24/[address] Hull - Intraoperative wound Cx (08/24) --> Enterobacter cloacae - Plan to DC to SNF/rehab following hospitalization to ensure non-weight bearing of RLE and good recovery. Pt at risk for Right BKA. - DVT prophylaxis with Lovenox - discussed with fhcp. copay for snf defaulted. CM consulted. pt agreeable for snf. just need to get accepting facility pt not ready for dc yet He continues with severe anasarca/lower ext edema and scrotal swelling Had right heart cath on last admission revealing increased right heart pressure. He has also some mild systolic dysfunction ef 45% Also he has sleep apnea/hypoventilation Pt moved to ICU after Halicat and hypoxia on 08/31. Pt had received small dose of morphine a few hrs before the event. He was refusing bipap but now agreeable. Pt being followed by Dr Sawyer discussed dc abx with ID. orders written cont albumen and diureses. changed iv lasix to bumex gtt on 09/01. He diuresed massively and bumex gtt held after immediately output of over 13L and over 10L negative balance. bmp stable. carefully resume the bumex and follow bmp closely today. pt still miserable with massive swelling lower procardia as tolerated (2) Obesity hypoventilation syndrome Code(s): E66.2 - Morbid (severe) obesity with alveolar hypoventilation Status : Chronic Plan: Hypercapnic respiratory insufficiency Obesity hypoventilation syndrome COPD - 2-D echocardiogram 07/23/17: - The left ventricular systolic function is mildly reduced with an estimated ejection fraction in the range of 45- 50%. - Mild infero-posterior hypokinesis - Mild concentric left ventricular hypertrophy. - The left atrial size is moderately dilated. - RHC completed (07/28) --> Class 2 Pulm HTN, PCW 23 - No Right heart strain, so sildenafil was stopped - Pt is noncompliant with CPAP - Pt still requiring 2L of supplemental O2 (3) COPD (chronic obstructive pulmonary disease) Code(s): J44.9 - Chronic obstructive pulmonary disease, unspecified Status: Chronic Plan: - chronic does not appear to be in acute exacerbation (4) Diabetes Code(s): E11.9 - Type 2 diabetes mellitus without complications Status: Chronic Plan: - Cont OHA and SSI. - Titrate as needed (5) HTN (hypertension) Code(s): I10 - Essential (primary) hypertension Status: Chronic Plan: Hypertension - cont current BP meds, , Cozaar 50mg q12H, Hydralazine 50mg TID, Coreg 25mg BID -try to lower or stop procardia. - Hydralazine PO PRN (6) Anemia Code(s): D64.9 - Anemia, unspecified Status: Chronic Plan: - Pts H/H has slowly been declining. No noted active GIB - iron deficiency anemia - Hg 8.7 (08/16) - During the last admission the pt was transfused with 2 units PRBCs (08/10) - During recent admission pt underwent evaluation with EGD/Colonoscopy (08/11/17 ) with Dr. Mccormick - int/ext hemorrhoids - sigmoid diverticulosis - esophagitis - gastric biopsies taken, results pending - Repeat labs on 08/21/17 with Hgb 8.3/Hct 24.6 -> 7.7/23.5 (08/24) -> 7.8/24.2, 7.6 (08/27), 8.5 (08/28) - Iron studies 08/08/17 Iron 26, TIBC 244, % saturation 10.7, ferritin 246 - ferritin 154 (08/27), retic 82 (08/27); b12 515, folate 7.9 (08/26) - case informally d/w Hematology - since ferritin > 100, unlikely d/t ANAHI - cancel Venofer - obtain peripheral smear, SPEP, UPEP - consider obtaining bone marrow - Hg improved following transfusion of 2 units PRBCs (08/27/17) (7) CAD (coronary artery disease) Code(s): I25.10 - Atherosclerotic heart disease of [place] coronary artery without angina pectoris Status: Chronic Plan: CAD (coronary artery disease) Recent history of pulmonary embolism - Patient had a PE approximately 8 months ago and was on Coumadin for until the cardiac cauterization 06/17/17 - Patient with recent cardiac catheterization with PCI 06/17/17 - After catheterization patient's Coumadin was DC'd and he was started on Aspirin and Plavix - Continue patient's Aspirin 81 mg daily, Plavix 75 mg PO daily, Atorvastatin 40 mg PO QHS and Coreg BID (8) Anxiety and depression Code(s): F41.9 - Anxiety disorder, unspecified; F32.9 - Major depressive disorder, single episode, unspecified Status: Chronic Plan: - Cont. Paxil 20mg daily (1) Rupture of right Achilles tendon Qualifiers: Encounter type: subsequent encounter Qualified Code(s): S86.011D - Strain of right Achilles tendon, subsequent encounter
[2017-09-02] MEDS: Albumin Human 25% Inj 100 ML IV.SIG SCH ×4 (10:06→19:32)
[2017-09-02] MEDS: hydrALAZINE 25 MG Tablet PO SCH ×3 (10:08→17:39)
[2017-09-02] MEDS: Allopurinol 100 MG Tablet PO SCH (10:08)
[2017-09-02] MEDS: Glimepiride 2 MG Tablet PO SCH ×3 (10:09→19:30)
[2017-09-02] MEDS: Carvedilol 12.5 MG Tablet PO SCH ×2 (10:09→21:12)
[2017-09-02] MEDS: Heparin Central Flush 100 UNIT/ML 5 ML Vial IV.FLUSH SCH (10:11)
[2017-09-02] MEDS: Nystatin Liq 500,000 UNIT/5 ML UDC SWISH-SWAL SCH ×5 (10:12→21:10)
[2017-09-02] MEDS: Senna/Docusate Sodium 8.6/50 MG Tablet PO SCH ×2 (10:13→21:12)
[2017-09-02 14:48] LABS: Calcium 8.8 mg/dL (8.5-10.1); Carbon Dioxide 36.5 meq/L (21.0-32.0); Potassium 3.9 meq/L (3.5-5.1)
--- NOTE | 2017-09-02 18:11 | P.PNPL ---
Subjective Interval history: 47 YOWM with Achelis tendon repair,JUDY,COPD Has huge scrotal swelling Diureasing with Bumex drip Used CPAP last night Alert, awake. at BS Physical Exam Vital signs: Vital Signs 09/01/17 19:48 09/01/17 20:00 09/01/17 21:38 Temperature 98.1 F Pulse Rate 96 H Respiratory Rate 16 15 Blood Pressure 184/79 H Pulse Oximetry 96 98 09/01/17 22:00 09/02/17 00:00 09/02/17 00:13 Temperature 98.1 F Pulse Rate 109 H 89 98 H Respiratory Rate 14 16 Blood Pressure 150/69 H Pulse Oximetry 99 09/02/17 01:13 09/02/17 02:00 09/02/17 03:00 Temperature Pulse Rate 85 Respiratory Rate 11 L Blood Pressure Pulse Oximetry 100 09/02/17 03:35 09/02/17 04:00 09/02/17 05:45 Temperature 98 F Pulse Rate 86 86 Respiratory Rate 12 15 18 Blood Pressure 151/71 H Pulse Oximetry 96 09/02/17 06:00 09/02/17 08:00 09/02/17 09:02 Temperature 98 F Pulse Rate 90 92 H 91 H Respiratory Rate 16 15 Blood Pressure 168/73 H Pulse Oximetry 96 96 09/02/17 10:00 09/02/17 10:32 09/02/17 11:34 Temperature Pulse Rate 91 H 89 Respiratory Rate 16 20 Blood Pressure Pulse Oximetry 09/02/17 12:00 09/02/17 14:00 09/02/17 16:00 Temperature 98.1 F 98.8 F Pulse Rate 94 H 94 H 93 H Respiratory Rate 16 16 Blood Pressure 126/65 134/68 Pulse Oximetry 96 96 09/02/17 17:42 Temperature Pulse Rate Respiratory Rate 16 Blood Pressure Pulse Oximetry Intake & Output 09/01/17 09/02/17 09/02/17 18:59 06:59 18:59 Intake Total 1450 / 1450 1600 / 1600 100 / 100 Output Total 2822 / 2822 65687 / 94985 Balance -1372 / -1372 -9200 / -9200 100 / 100 Weight 180 kg Intake: IV 200 / 200 100 / 100 Flexbumin 25% Inj 100 ML @ 60 100 / 100 100 / 100 mls/hr IV.SIG BID@08,17 [facility] Rx# :[id number] Rocephin Inj 2,000 MG In NS Inj 100 / 100 100 ML @ 200 mls/hr IV.SIG Q24H [facility] Rx#:[id number] Oral 450 / 450 1400 / 1400 Anesthesia Amount 500 / 500 Other 500 / 500 Output: Urine 2800 / 2800 01290 / [id number] Stool Urine/Stool Mix Estimated Blood Loss 20 20 Other: Post Void Residual 0 # Voids 6 # Incontinent Voids 0 # Urine Diapers 0 Date of Last Bowel Movement 08/30/17 08/30/17 08/30/17 # Bowel Movements 0 0 GENERAL: Obese WM,NAD SKIN: Warm and dry. HEAD: Normocephalic. EYES: No scleral icterus. No injection or drainage. NECK: Supple, trachea midline. No JVD or lymphadenopathy. CARDIOVASCULAR: Regular rate and rhythm without murmurs, gallops, or rubs. RESPIRATORY: Breath sounds equal bilaterally. No accessory muscle use. GASTROINTESTINAL: Abdomen soft, non-tender, nondistended. MUSCULOSKELETAL: No cyanosis, or edema. Leg wound Large scrotal swelling Huge scrotal swelling BACK: Nontender without obvious deformity. No CVA tenderness. Assessment and Plan - Plan IMPRESSION: 1. Hypercapnic respiratory insufficiency. 2. Chronic obstructive pulmonary disease. 3. Obstructive sleep apnea. 4. Achilles tendon repair and leg infection. 5. Diabetes mellitus. 5. Scrotal edema. PLAN: Bumex drip Aerosol nebs Supplement 02 CPAP at night Cont Abx SQ Lovenox DW pt and his .
[2017-09-02] MEDS: Insulin NovoLOG Aspart Correctional Sugar Inj SQ SCH ×4 (19:31→21:09)
[2017-09-02] MEDS: Enoxaparin Inj 40 MG/0.4 ML Syringe SQ SCH (23:52)
[2017-09-03] MEDS: Gabapentin 300 MG Capsule PO SCH ×4 (06:06→23:05)
[2017-09-03 06:26] LABS: Calcium 8.4 mg/dL (8.5-10.1); Carbon Dioxide 33.6 meq/L (21.0-32.0); Potassium 4.2 meq/L (3.5-5.1)
--- NOTE | 2017-09-03 08:51 | P.PNIM ---
Subjective Interval history: pt will massive diuresis over past 48hrs. still swollen not able to tolerate the bipap Physical Exam Vital signs: Vital Signs 09/02/17 09:02 09/02/17 10:00 09/02/17 10:32 Temperature Pulse Rate 91 H 91 H Respiratory Rate 15 16 Blood Pressure Pulse Oximetry 96 09/02/17 11:34 09/02/17 12:00 09/02/17 14:00 Temperature 98.1 F Pulse Rate 89 94 H 94 H Respiratory Rate 20 16 Blood Pressure 126/65 Pulse Oximetry 96 09/02/17 16:00 09/02/17 17:42 09/02/17 18:00 Temperature 98.8 F Pulse Rate 93 H 93 H Respiratory Rate 16 16 Blood Pressure 134/68 Pulse Oximetry 96 09/02/17 20:00 09/02/17 21:08 09/02/17 22:00 Temperature 98.5 F Pulse Rate 96 H 96 H Respiratory Rate 16 15 Blood Pressure 136/67 Pulse Oximetry 96 09/02/17 23:22 09/03/17 00:00 09/03/17 02:00 Temperature 98.4 F Pulse Rate 92 H 91 H Respiratory Rate 15 23 17 Blood Pressure 133/63 Pulse Oximetry 96 09/03/17 04:00 09/03/17 04:01 09/03/17 06:00 Temperature 98.3 F Pulse Rate 86 90 91 H Respiratory Rate 20 17 Blood Pressure 133/66 Pulse Oximetry 95 09/03/17 06:06 09/03/17 08:28 Temperature Pulse Rate 90 Respiratory Rate 17 24 Blood Pressure Pulse Oximetry 96 Intake & Output 09/02/17 09/03/17 09/03/17 18:59 06:59 18:59 Intake Total 1820 / 1820 1400 / 1400 Output Total 4720 / 4720 6300 / 6300 Balance -2900 / -2900 -4900 / -4900 Weight 181.4 kg Intake: IV 100 / 100 200 / 200 Flexbumin 25% Inj 100 ML @ 60 100 / 100 100 / 100 mls/hr IV.SIG BID@,17 [facility] Rx# :[id number] Rocephin Inj 2,000 MG In NS Inj 100 / 100 100 ML @ 200 mls/hr IV.SIG Q24H [facility] Rx#:[id number] Oral 720 / 720 1200 / 1200 Anesthesia Amount 500 / 500 Other 500 / 500 Output: Urine 4700 / 4700 6300 / 6300 Stool 0 / 0 Urine/Stool Mix 0 / 0 Estimated Blood Loss Other: Post Void Residual 0 # Voids 6 # Incontinent Voids 0 # Urine Diapers 0 Date of Last Bowel Movement 08/30/17 09/03/17 # Bowel Movements 0 1 heart reg lung cta abd s/nt ext massive lower ext/scrotum edema Results - Labs CBC & Chem 7: 09/02/17 04:20 09/03/17 04:50 Laboratory Results - last 24 hr 08/31/17 09/02/17 09/02/17 20:20 14:11 17:28 Sodium 139 Potassium 3.9 Chloride 96 L Carbon Dioxide 36.5 H Anion Gap 7 BUN 24 H Creatinine 1.05 Estimated GFR 76 L POC Glucose 216 H Random Glucose 143 H Calcium 8.8 Urine PEP Interpret 09/02/17 09/03/17 20:16 04:50 Sodium 138 Potassium 4.2 Chloride 95 L Carbon Dioxide 33.6 H Anion Gap 9 BUN 26 H Creatinine 1.31 H Estimated GFR 59 L POC Glucose 263 H Random Glucose 211 H Calcium 8.4 L Urine PEP Interpret - Procedures Right posterior Achilles incision and drainage 08/24/[address] Hull Assessment and Plan - Assessment (1) Rupture of right Achilles tendon Code(s): S86.011A - Strain of right Achilles tendon, initial encounter Status : Acute Plan: (1) Rupture of right Achilles tendon Code(s): S86.011A - Strain of right Achilles tendon, initial encounter Status : Acute Plan: Open Achilles rupture, right - Recent admission with Achilles rupture - Pt underwent open repair of right Achilles tendon rupture with flexor hallucis longus tendon transfer and gastrocnemius recession, right lower extremity on 07/24/[address] Murillo. - Per podiatry, pt will need to be strict non-weight bearing for 6-8 weeks. - Pt was noted to have increased swelling and pain in the RLE on 08/04 - LE Doppler US (08/04) --> Is negative for DVT - Refused dc to snf and was noncompliant with weight bearing instructions. - Pt was readmitted with infection at operative site on 08/16 - He was seen by podiatry in clinic on 08/16 and sent to ED - MRI right ankle (08/16): 1. Postoperative change at the distal Achilles and calcaneus. Increased signal within the posterior calcaneus can all be consistent with postoperative change. It would be difficult to rule out osteomyelitis. 2. Fluid seen around the Achilles tendon. More superiorly in the mid lower leg, there is a larger fluid collection with peripheral enhancement. There is also a thinner fluid collection seen more superiorly in the proximal lower leg around the lateral aspect of the soleus muscle. These fluid collections could be postoperative seromas. An abscess could have a similar appearance. - vanco and Zosyn (08/17) - Rocephin (08/17 - present) - Comgmt with ID & Podiatry - Pt had a previous outpt culture taken on 08/11 which grew out Enterobacter cloacae - Right posterior Achilles incision and drainage 08/24/[address] Hull - Intraoperative wound Cx (08/24) --> Enterobacter cloacae - Plan to DC to SNF/rehab following hospitalization to ensure non-weight bearing of RLE and good recovery. Pt at risk for Right BKA. - DVT prophylaxis with Lovenox - -discussed with [facility]. copay for snf defaulted. CM consulted. pt agreeable for snf. just need to get accepting facility -pt not ready for dc yet -discussed dc abx with ID. orders written Pt moved to ICU after Halicat and hypoxia on 08/31. Pt had received small dose of morphine a few hrs before the event. He was refusing bipap but now agreeable. Pt being followed by Dr Sawyer He continues with severe anasarca/lower ext edema and scrotal swelling Had right heart cath on last admission revealing increased right heart pressure. He has also some mild systolic dysfunction ef 45% ...cardiology recommended getting renal consult if no improvement.. will ask renal for evaluation of massive volume overload. Also he has sleep apnea/hypoventilation There is hypoalbuminemia. Over past 48hrs past diureses around 25L and neg around 20L...still very swollen. Will ask Renal opinion. hold bumex and albumen this AM. procardia lowered...?stop - (2) Obesity hypoventilation syndrome Code(s): E66.2 - Morbid (severe) obesity with alveolar hypoventilation Status : Chronic Plan: Hypercapnic respiratory insufficiency Obesity hypoventilation syndrome COPD - 2-D echocardiogram 07/23/17: - The left ventricular systolic function is mildly reduced with an estimated ejection fraction in the range of 45- 50%. - Mild infero-posterior hypokinesis - Mild concentric left ventricular hypertrophy. - The left atrial size is moderately dilated. - RHC completed (07/28) --> Class 2 Pulm HTN, PCW 23 - No Right heart strain, so sildenafil was stopped - Pt is noncompliant with CPAP (3) COPD (chronic obstructive pulmonary disease) Code(s): J44.9 - Chronic obstructive pulmonary disease, unspecified Status: Chronic Plan: - chronic does not appear to be in acute exacerbation (4) Diabetes Code(s): E11.9 - Type 2 diabetes mellitus without complications Status: Chronic Plan: - Cont OHA and SSI. - Titrate as needed (5) HTN (hypertension) Code(s): I10 - Essential (primary) hypertension Status: Chronic Plan: Hypertension - cont current BP meds, , Cozaar 50mg q12H, Hydralazine 50mg TID, Coreg 25mg BID -try to lower or stop procardia. - Hydralazine PO PRN (6) Anemia Code(s): D64.9 - Anemia, unspecified Status: Chronic Plan: - Pts H/H has slowly been declining. No noted active GIB - iron deficiency anemia - Hg 8.7 (08/16) - During the last admission the pt was transfused with 2 units PRBCs (08/10) - During recent admission pt underwent evaluation with EGD/Colonoscopy (08/11/17 ) with Dr. Mccormick - int/ext hemorrhoids - sigmoid diverticulosis - esophagitis - gastric biopsies taken, results pending - Repeat labs on 08/21/17 with Hgb 8.3/Hct 24.6 -> 7.7/23.5 (08/24) -> 7.8/24.2, 7.6 (08/27), 8.5 (08/28) - Iron studies 08/08/17 Iron 26, TIBC 244, % saturation 10.7, ferritin 246 - ferritin 154 (08/27), retic 82 (08/27); b12 515, folate 7.9 (08/26) - case informally d/w Hematology - since ferritin > 100, unlikely d/t ANAHI - cancel Venofer - obtain peripheral smear, SPEP, UPEP - consider obtaining bone marrow - Hg improved following transfusion of 2 units PRBCs (08/27/17) (7) CAD (coronary artery disease) Code(s): I25.10 - Atherosclerotic heart disease of [place] coronary artery without angina pectoris Status: Chronic Plan: CAD (coronary artery disease) Recent history of pulmonary embolism - Patient had a PE approximately 8 months ago and was on Coumadin for until the cardiac cauterization 06/17/17 - Patient with recent cardiac catheterization with PCI 06/17/17 - After catheterization patient's Coumadin was DC'd and he was started on Aspirin and Plavix - Continue patient's Aspirin 81 mg daily, Plavix 75 mg PO daily, Atorvastatin 40 mg PO QHS and Coreg BID (8) Anxiety and depression Code(s): F41.9 - Anxiety disorder, unspecified; F32.9 - Major depressive disorder, single episode, unspecified Status: Chronic Plan: - Cont. Paxil 20mg daily (1) Rupture of right Achilles tendon Qualifiers: Encounter type: subsequent encounter Qualified Code(s): S86.011D - Strain of right Achilles tendon, subsequent encounter
[2017-09-03] MEDS: hydrALAZINE 25 MG Tablet PO SCH ×3 (08:55→17:12)
[2017-09-03] MEDS: Nystatin Liq 500,000 UNIT/5 ML UDC SWISH-SWAL SCH ×5 (08:55→20:01)
[2017-09-03] MEDS: Glimepiride 2 MG Tablet PO SCH ×2 (08:55→17:12)
[2017-09-03] MEDS: Carvedilol 12.5 MG Tablet PO SCH ×2 (08:55→20:01)
[2017-09-03] MEDS: Senna/Docusate Sodium 8.6/50 MG Tablet PO SCH ×2 (08:56→20:01)
[2017-09-03] MEDS: Allopurinol 100 MG Tablet PO SCH (08:56)
[2017-09-03] MEDS: Heparin Central Flush 100 UNIT/ML 5 ML Vial IV.FLUSH SCH (08:58)
[2017-09-03] MEDS: Insulin NovoLOG Aspart Correctional Sugar Inj SQ SCH ×5 (09:05→22:44)
--- NOTE | 2017-09-03 13:02 | MB ---
cc: Dash Steele MD DATE: 09/03/2017 REASON FOR CONSULTATION: Acute kidney injury and generalized anasarca for evaluation. HISTORY OF PRESENT ILLNESS: This is a 47-year-old male with a past medical history of hypertension, chronic obstructive pulmonary disease, morbid obesity, history of sleep apnea, diabetes mellitus, hyperlipidemia, depression, generalized edema, who came to the hospital with complaint of right ankle infection. I was called to see the patient because of increase in the creatinine to 1.3 now. The patient has a history of acute kidney injury when he was here last month. I saw him at that time and he was on Lasix and his creatinine decreased 1.0 and I signed off at that time. The patient was readmitted and he was treated for a right ankle infection and he developed respiratory failure and he was transferred to the intensive care unit. He is currently with nasal cannula. His breathing is slightly better. He denies any chest pain. No nausea or vomiting. He has more swelling in the scrotum and also has increased leg swelling. He has been off and on getting diuretics. PAST MEDICAL HISTORY: Hypertension, diabetes mellitus, hyperlipidemia, morbid obesity, neuropathy, depression, sleep apnea. PAST SURGICAL HISTORY: Right ankle surgery with a right Achilles rupture, history of inner thigh abscess and anal fissure surgery. REVIEW OF SYSTEMS: The patient has generalized weakness, feeling tired and has edema in the legs and scrotum area and complaining of pain in the scrotum. Also, has shortness of breath, more with exertion. Has a mild cough, which is mainly dry. There is no chest pain. No palpitation. No nausea or vomiting. SOCIAL HISTORY: The patient is . There is past history of smoking. There is no history of alcoholism. FAMILY HISTORY: Noncontributory. ALLERGIES: HE HAS AN ALLERGY TO TRAMADOL, CODEINE, QUETIAPINE, CLONIDINE AND LISINOPRIL. MEDICATIONS: Currently, he is on following medications: 1. [place] as needed. 2. Milk of magnesia as needed. 3. DuoNeb as needed. 4. Allopurinol 100 mg daily. 5. Aspirin 81 mg once a day. 6. Lipitor 40 mg at bedtime. 7. Dulcolax as needed. 8. Coreg 25 mg b.i.d. 9. Ceftriaxone 100 mg every 24 hours. 10. Plavix 75 mg daily. 11. Neurontin 300 mg every 8 hours. 12. Lovenox 40 mg subcutaneous every 24 hours. 13. Amaryl 2 mg b.i.d. 14. ____ as needed. 15. Hydralazine 50 mg t.i.d. 16. Insulin aspart sliding scale. 17. Lactulose as needed. 18. Ativan as needed. 19. Cozaar 50 mg every 12 hours. 20. Procardia-XL 30 mg b.i.d. 21. Paxil 20 mg once a day. 22. Protonix 40 mg once a day. 23. Nystatin swish and swallow. 24. Temazepam as needed. PHYSICAL EXAMINATION: GENERAL: The patient is awake, alert. He is not in acute distress. VITAL SIGNS: His last blood pressure is 146/68, temperature is 98.1, oxygen saturation on 4 liters nasal cannula is 96%. HEENT: Pupils are mid constricted. Nonicteric sclerae. Conjunctivae pale. NECK: Supple. JVD is not elevated. LUNGS: The patient has bilateral decreased air entry with occasional wheezing. HEART: S1, S2. Regular rate and rhythm. ABDOMEN: Distended, soft, lax. There is no tenderness. Bowel sounds positive. EXTREMITIES: He has bilateral 2+ edema and has sacral edema, which is moderate to severe. INVESTIGATIONS: WBC count is 5.2, hemoglobin 8.5, platelet count of 219, neutrophils 66.9%. Sodium 138, potassium 4.2, chloride 95, bicarbonate 33.6, BUN 26, creatinine 1.3, glucose 193, calcium is 8.4. There is no urinalysis done during this admission but previously has protein of 100. This was done in May. IMAGING STUDIES: The patient has a chest x-ray done, which shows resolving congestive heart failure. He has a scrotal ultrasound done, which shows scrotal edema, trace hydrocele, testicles appeared normal. ASSESSMENT AND PLAN: 1. Acute kidney injury. 2. Generalized anasarca and edema. 3. Sleep apnea. 4. Respiratory failure. 5. Anemia. 6. Right ankle infection. The patient has a history of low albumin in the past and has significant edema and anasarca. I will check the urinalysis to see if he has any significant proteinuria and also check the albumin level to see if he needs any albumin with the diuretics. I think he still needs to be diuresed and I will put him on Lasix and monitor the urine output and BUN and creatinine closely. I will also get the ultrasound of the kidneys. Thank you for the consultation. I will follow the patient while he is in the hospital. MD GOLDIE Morales/ANGEL , 11:38 AM , 01:00 PM
--- NOTE | 2017-09-03 13:35 | P.PNPOD ---
Subjective Interval history: minimal pain, scrotol edema is painful, no SOB Physical Exam Vital signs: Vital Signs 09/02/17 14:00 09/02/17 16:00 09/02/17 17:42 Temperature 98.8 F Pulse Rate 94 H 93 H Respiratory Rate 16 16 Blood Pressure 134/68 Pulse Oximetry 96 09/02/17 18:00 09/02/17 20:00 09/02/17 21:08 Temperature 98.5 F Pulse Rate 93 H 96 H Respiratory Rate 16 15 Blood Pressure 136/67 Pulse Oximetry 96 09/02/17 22:00 09/02/17 23:22 09/03/17 00:00 Temperature 98.4 F Pulse Rate 96 H 92 H Respiratory Rate 15 23 Blood Pressure 133/63 Pulse Oximetry 96 09/03/17 02:00 09/03/17 04:00 09/03/17 04:01 Temperature 98.3 F Pulse Rate 91 H 86 90 Respiratory Rate 17 20 17 Blood Pressure 133/66 Pulse Oximetry 95 09/03/17 06:00 09/03/17 06:06 09/03/17 08:00 Temperature 98.1 F Pulse Rate 91 H 92 H Respiratory Rate 17 12 Blood Pressure 146/68 H Pulse Oximetry 95 09/03/17 08:28 09/03/17 10:00 09/03/17 11:06 Temperature Pulse Rate 90 92 H 92 H Respiratory Rate 24 20 Blood Pressure Pulse Oximetry 96 09/03/17 12:00 Temperature Pulse Rate 82 Respiratory Rate Blood Pressure Pulse Oximetry Intake & Output 09/02/17 09/03/17 09/03/17 18:59 06:59 18:59 Intake Total 1820 / 1820 1400 / 1400 Output Total 4720 / 4720 6300 / 6300 Balance -2900 / -2900 -4900 / -4900 Weight 181.4 kg Intake: IV 100 / 100 200 / 200 Flexbumin 25% Inj 100 ML @ 60 100 / 100 100 / 100 mls/hr IV.SIG BID@ [facility] Rx# :[id number] Rocephin Inj 2,000 MG In NS Inj 100 / 100 100 ML @ 200 mls/hr IV.SIG Q24H [facility] Rx#:[id number] Oral 720 / 720 1200 / 1200 Anesthesia Amount 500 / 500 Other 500 / 500 Output: Urine 4700 / 4700 6300 / 6300 Stool 0 / 0 Urine/Stool Mix 0 / 0 Estimated Blood Loss Other: Post Void Residual 0 # Voids 6 # Incontinent Voids 0 # Urine Diapers 0 Date of Last Bowel Movement 08/30/17 09/03/17 09/03/17 # Bowel Movements 0 1 Narrative: Right LE- 1-2 cm central posterior incision well coapted with minimal drainage, much improved edema, achilles appears intact, foot is warm sensation intact Medications and Allergies Active Medications: Active Medications Hydrocodone Bitart/Acetaminophen (Victor 10/325) 1 tab PO Q4H PRN PRN Reason: pain 3-10 Last Admin: 09/03/17 10:53 Dose: 1 tab Al Hydroxide/Mg Hydroxide (Milk Of Magnesia Liq) 30 ml PO Q12H PRN PRN Reason: MILD CONSTIPATION Albuterol (Duoneb Neb ([facility])) 1 ampul NEB Q4HR NEB [facility] Last Admin: 09/03/17 11:05 Dose: 1 ampul Allopurinol (Zyloprim) 100 mg PO DAILY [facility] Last Admin: 09/03/17 08:56 Dose: 100 mg Aspirin (Ecotrin) 81 mg PO DAILY [facility] Last Admin: 09/03/17 08:55 Dose: 81 mg Atorvastatin Calcium (Lipitor) 40 mg PO HS [facility] Last Admin: 09/02/17 21:12 Dose: 40 mg Benzocaine/Menthol (Chloraseptic Sore Throat Lozenge) 1 lozenge BUCCAL Q2HR PRN PRN Reason: sore throat Bisacodyl (Dulcolax Supp) 10 mg RECTAL DAILY PRN PRN Reason: SEVERE CONSTIPATION Carvedilol (Coreg) 25 mg PO BID [facility] Last Admin: 09/03/17 08:55 Dose: 25 mg Clopidogrel Bisulfate (Plavix) 75 mg PO DAILY [facility] Last Admin: 09/03/17 08:55 Dose: 75 mg Dextrose (D50w Vial) 50 ml IV.PUSH UNSCH PRN PRN Reason: PER HYPOGLYCEMIA PROTOCOL Enoxaparin Sodium (Lovenox Inj) 40 mg SQ Q24H [facility] Last Admin: 09/02/17 23:52 Dose: 40 mg Furosemide (Lasix Inj) 40 mg IV.PUSH BID@0900,1800 [facility] Gabapentin (Neurontin) 300 mg PO Q8HR [facility] Last Admin: 09/03/17 13:27 Dose: 300 mg Glimepiride (Amaryl) 2 mg PO BIDAC [facility] Last Admin: 09/03/17 08:55 Dose: 2 mg Glucagon (Glucagon Inj) 1 mg OTHER PRN PRN PRN Reason: for Hypoglycemia Protocol Heparin Sodium (Porcine) (Heparin Central Flush) 0 unit IV.FLUSH DAILY [facility] Last Admin: 09/03/17 08:58 Dose: 500 unit Heparin Sodium (Porcine) (Heparin Central Flush) 0 unit IV.FLUSH PRN PRN PRN Reason: Flush PICC Line Hydralazine HCl (Apresoline) 50 mg PO TID [facility] Last Admin: 09/03/17 13:26 Dose: 50 mg Ceftriaxone Sodium 2,000 mg/ (Sodium Chloride) 100 mls @ 200 mls/hr IV.SIG Q24H [facility] Last Infusion: 09/02/17 23:36 Dose: Infused Insulin Aspart (Novolog Insulin Suppl Scale Inj) 0 unit SQ ACHS [facility]; Protocol Last Admin: 09/03/17 12:59 Dose: 2 unit Lactulose (Lactulose Liq) 30 ml PO DAILY PRN PRN Reason: SEVERE CONSTIPATION Lorazepam (Ativan) 0.5 mg PO Q6H PRN PRN Reason: ANXIETY Last Admin: 09/02/17 23:52 Dose: 0.5 mg Losartan Potassium (Cozaar) 50 mg PO Q12HR [facility] Last Admin: 09/03/17 08:55 Dose: 50 mg Naloxone HCl (Narcan Inj) 0.4 mg IV.PUSH UNSCH PRN PRN Reason: SEE LABEL COMMENTS Nifedipine (Procardia Xl) 30 mg PO BID [facility] Last Admin: 09/03/17 08:55 Dose: 30 mg Nystatin (Mycostatin Liq) 5 ml SWISH-SWAL QID [facility] Last Admin: 09/03/17 13:27 Dose: 5 ml Pantoprazole Sodium (Protonix) 40 mg PO DAILY [facility] Last Admin: 09/03/17 08:56 Dose: 40 mg Paroxetine HCl (Paxil) 20 mg PO DAILY [facility] Last Admin: 09/03/17 08:55 Dose: 20 mg Senna/Docusate Sodium ([place]ly-Colace) 1 tab PO BID [facility] Last Admin: 09/03/17 08:56 Dose: 1 tab Sennosides (Senokot) 17.2 mg PO Q12H PRN PRN Reason: MODERATE CONSTIPATION Sodium Chloride ([place] Nasal [place]) 1 spray EACH NARE Q6H PRN PRN Reason: FOR DRYNESS Last Admin: 08/22/17 13:18 Dose: 1 spray Sodium Chloride (Ns Flush) 2 ml IV.FLUSH UNSCH PRN PRN Reason: FLUSH AFTER USING IV ACCESS Last Admin: 09/03/17 08:58 Dose: 2 ml Sodium Chloride (Ns Flush) 2 ml IV.FLUSH BID [facility] Last Admin: 09/03/17 13:27 Dose: 2 ml Sodium Chloride (Ns Flush) 0 ml IV.FLUSH DAILY [facility] Last Admin: 09/03/17 08:58 Dose: 10 ml Sodium Chloride (Ns Flush) 0 ml IV.FLUSH PRN PRN PRN Reason: FLUSH AFTER USING IV ACCESS Sodium Chloride (Ns Flush) 0 ml IV.FLUSH PRN PRN PRN Reason: Flush After Blood Draws Temazepam (Restoril) 15 mg PO HS PRN PRN Reason: INSOMNIA Last Admin: 08/29/17 21:47 Dose: 15 mg Throat Lozenges (Chloraseptic [place]) 2 spray OROPHARYNG Q2H PRN PRN Reason: sore throat Allergies Allergy/AdvReac Type Severity Reaction Status Date / Time codeine Allergy Severe Itching Verified 08/16/17 19:14 quetiapine Allergy Intermediate Hallucinati Verified 08/16/17 19:14 ons tramadol Allergy Unknown UNKNOWN Verified 08/20/17 10:36 clonidine AdvReac Severe ARNDT, dry Verified 08/20/17 10:36 mouth, "felt drunk" lisinopril AdvReac Unknown abnormal Verified 08/16/17 19:14 labs K level Home Medications Medication Instructions Recorded Confirmed Type allopurinol 100 mg PO DAILY 08/20/17 08/20/17 History aspirin 81 mg PO DAILY 08/20/17 08/20/17 History atorvastatin 40 mg PO HS 08/20/17 08/20/17 History carvedilol 25 mg PO BID 08/20/17 08/20/17 History clindamycin HCl 300 mg PO Q6H 08/20/17 08/20/17 History clopidogrel 75 mg PO DAILY 08/20/17 08/20/17 History furosemide 40 mg PO DAILY 08/20/17 08/20/17 History gabapentin 300 mg PO Q8H 08/20/17 08/20/17 History glimepiride 2 mg PO BIDAC 08/20/17 08/20/17 History hydralazine 50 mg PO TID 08/20/17 08/20/17 History hydrocodone-acetaminophen 1 tab PO Q4H PRN 08/20/17 08/20/17 History insulin aspart U-100 [Novolog 1 sliding scale dose SUB-Q 08/20/17 08/20/17 History U-100 Insulin aspart] DIRECTED losartan 50 mg PO Q12H 08/20/17 08/20/17 History metformin 750 mg PO BID 08/20/17 08/20/17 History nifedipine 60 mg PO Q12H 08/20/17 08/20/17 History nystatin 5 ml PO QID 08/20/17 08/20/17 History pantoprazole 40 mg PO DAILY 08/20/17 08/20/17 History paroxetine HCl 20 mg PO DAILY 08/20/17 08/20/17 History Results - Labs CBC & Chem 7: 09/02/17 04:20 09/03/17 04:50 Laboratory Results - last 24 hr 08/31/17 09/02/17 09/02/17 20:20 14:11 17:28 Sodium 139 Potassium 3.9 Chloride 96 L Carbon Dioxide 36.5 H Anion Gap 7 BUN 24 H Creatinine 1.05 Estimated GFR 76 L POC Glucose 216 H Random Glucose 143 H Calcium 8.8 Urine PEP Interpret 09/02/17 09/03/17 09/03/17 20:16 04:50 08:46 Sodium 138 Potassium 4.2 Chloride 95 L Carbon Dioxide 33.6 H Anion Gap 9 BUN 26 H Creatinine 1.31 H Estimated GFR 59 L POC Glucose 263 H 193 H Random Glucose 211 H Calcium 8.4 L Urine PEP Interpret 09/03/17 11:50 Sodium Potassium Chloride Carbon Dioxide Anion Gap BUN Creatinine Estimated GFR POC Glucose 160 H Random Glucose Calcium Urine PEP Interpret - Procedures Right posterior Achilles incision and drainage 08/24/[address] Hull Assessment and Plan - Assessment (1) Abscess of right lower leg Code(s): L02.415 - Cutaneous abscess of right lower limb Status: Acute (2) Rupture of right Achilles tendon Code(s): S86.011A - Strain of right Achilles tendon, initial encounter Status : Acute - Plan Continue terminal gauger IV ABX- graft infection Sp repair. Betadine swab to the incision, requested new splint, changed bandage everyother day, improving. Non weightbearing for 2 weeks longer. (2) Rupture of right Achilles tendon Qualifiers: Encounter type: subsequent encounter Qualified Code(s): S86.011D - Strain of right Achilles tendon, subsequent encounter
[2017-09-03 15:55] LABS: Bacteria,Urine Rare /hpf; Bilirubin,Urine Negative (Negative); Clarity,Urine Hazy (Clear); Color,Urine Yellow (Yellw/Straw); Glucose,Urine (UA) 50 mg/dL (Negative); Hyaline Casts,Urine 1 /lpf (0-3); Leukocyte Esterase,Urine Negative (Negative); Mucus,Urine Few /lpf (Occasional); Nitrite,Urine Negative (Negative); Specific Gravity,Urine 1.011 (1.002-1.035); Squamous Epithelial Cell,Urine 2 /hpf (0-5)
--- NOTE | 2017-09-03 16:18 | P.PNPL ---
Subjective Interval history: 47 YOWM with A[place] tendon repair,JUDY,COPD Has huge scrotal swelling Diureasing Used CPAP last night nephrology consulted Physical Exam Vital signs: Vital Signs 09/02/17 17:42 09/02/17 18:00 09/02/17 20:00 Temperature 98.5 F Pulse Rate 93 H 96 H Respiratory Rate 16 16 Blood Pressure 136/67 Pulse Oximetry 96 09/02/17 21:08 09/02/17 22:00 09/02/17 23:22 Temperature Pulse Rate 96 H Respiratory Rate 15 15 Blood Pressure Pulse Oximetry 09/03/17 00:00 09/03/17 02:00 09/03/17 04:00 Temperature 98.4 F 98.3 F Pulse Rate 92 H 91 H 86 Respiratory Rate 23 17 20 Blood Pressure 133/63 133/66 Pulse Oximetry 96 95 09/03/17 04:01 09/03/17 06:00 09/03/17 06:06 Temperature Pulse Rate 90 91 H Respiratory Rate 17 17 Blood Pressure Pulse Oximetry 09/03/17 08:00 09/03/17 08:28 09/03/17 10:00 Temperature 98.1 F Pulse Rate 92 H 90 92 H Respiratory Rate 12 24 Blood Pressure 146/68 H Pulse Oximetry 95 96 09/03/17 11:06 09/03/17 12:00 09/03/17 14:00 Temperature 98.3 F Pulse Rate 92 H 90 84 Respiratory Rate 20 10 L Blood Pressure 160/76 H Pulse Oximetry 96 09/03/17 14:46 09/03/17 15:12 09/03/17 16:00 Temperature 98.1 F Pulse Rate 80 84 Respiratory Rate 13 14 12 Blood Pressure 143/66 H Pulse Oximetry 94 L Intake & Output 09/02/17 09/03/17 09/03/17 18:59 06:59 18:59 Intake Total 1820 / 1820 1400 / 1400 Output Total 4720 / 4720 6300 / 6300 Balance -2900 / -2900 -4900 / -4900 Weight 181.4 kg Intake: IV 100 / 100 200 / 200 Flexbumin 25% Inj 100 ML @ 60 100 / 100 100 / 100 mls/hr IV.SIG BID@ [facility] Rx# :[id number] Rocephin Inj 2,000 MG In NS Inj 100 / 100 100 ML @ 200 mls/hr IV.SIG Q24H [facility] Rx#:[id number] Oral 720 / 720 1200 / 1200 Anesthesia Amount 500 / 500 Other 500 / 500 Output: Urine 4700 / 4700 6300 / 6300 Stool 0 / 0 Urine/Stool Mix 0 / 0 Estimated Blood Loss 20 / 20 Other: Post Void Residual 0 # Voids 6 # Incontinent Voids 0 # Urine Diapers 0 Date of Last Bowel Movement 08/30/17 09/03/17 09/03/17 # Bowel Movements 0 1 GENERAL: WBWN,NAD SKIN: Warm and dry. HEAD: Normocephalic. EYES: No scleral icterus. No injection or drainage. NECK: Supple, trachea midline. No JVD or lymphadenopathy. CARDIOVASCULAR: Regular rate and rhythm without murmurs, gallops, or rubs. RESPIRATORY: Breath sounds equal bilaterally. No accessory muscle use. GASTROINTESTINAL: Abdomen soft, non-tender, nondistended. MUSCULOSKELETAL: No cyanosis, ++ edema. Scrotal swelling BACK: Nontender without obvious deformity. No CVA tenderness. Narrative: oriented lying in bed heart reg lung cta abd s/nt ext anasarca flanks/lower ext/scrotum right leg splinted Assessment and Plan - Plan IMPRESSION: 1. Hypercapnic respiratory insufficiency. 2. Chronic obstructive pulmonary disease. 3. Obstructive sleep apnea. 4. Achilles tendon repair and leg infection. 5. Diabetes mellitus. 5. Scrotal edema. PLAN: Aerosol nebs Supplement 02 CPAP at night Cont Abx SQ Lovenox
[2017-09-03 18:27] LABS: Calcium 8.6 mg/dL (8.5-10.1); Carbon Dioxide 35.3 meq/L (21.0-32.0); Potassium 4.3 meq/L (3.5-5.1)
--- NOTE | 2017-09-03 22:25 | US ---
EXAM DATE: 09/03/2017 10:21 PM EDT AGE/SEX: 47 years / Male INDICATIONS: Increased lab values. CLINICAL DATA: This is the patient's initial encounter. Patient reports that signs and symptoms have been present for 1 day and indicates a pain score of 0/10. MEDICAL/SURGICAL HISTORY: Hypercholesterolemia. Chronic obstructive pulmonary disease. Hyperli pidemia. Hypertension. Renal failure. Kidney stones. Osteoporosis. Gout. Diabetes. Tonsillectomy. C oronary stent. Anal fissure surgery. Left thigh abscess removed. COMPARISON: [facility], CT ABDOMEN & PELVIS W/O CONTRAST, 02/14/2016. . MEASUREMENTS: Right Kidney:__. Not visualized. Left Kidney:__. Not visualized. FINDINGS: The kidneys are not visualized. This likely secondary to the patient's body habitus. The bl adder is moderately distended. CONCLUSION: Limited exam of the kidneys. The visualized secondary to the patient's body habitus. Electronically signed by: Stephen Hahn MD 09/03/2017 10:23 PM EDT
[2017-09-03] MEDS: Enoxaparin Inj 40 MG/0.4 ML Syringe SQ SCH (23:05)
[2017-09-03] MEDS: LORazepam 0.5 MG Tablet PO PRN (23:06)
[2017-09-04 04:45] LABS: Albumin 2.3 g/dL (3.4-5.0); Calcium 6.9 mg/dL (8.5-10.1); Carbon Dioxide 30.4 meq/L (21.0-32.0); Potassium 3.6 meq/L (3.5-5.1); Total Protein 5.4 g/dL (6.4-8.2)
[2017-09-04] MEDS: Gabapentin 300 MG Capsule PO SCH ×3 (05:36→22:55)
[2017-09-04] MEDS: Nystatin Liq 500,000 UNIT/5 ML UDC SWISH-SWAL SCH ×4 (08:15→20:38)
[2017-09-04] MEDS: Carvedilol 12.5 MG Tablet PO SCH ×2 (08:16→20:38)
[2017-09-04] MEDS: Glimepiride 2 MG Tablet PO SCH ×2 (08:16→16:30)
[2017-09-04] MEDS: hydrALAZINE 25 MG Tablet PO SCH ×3 (08:17→18:21)
[2017-09-04] MEDS: Allopurinol 100 MG Tablet PO SCH (08:17)
[2017-09-04] MEDS: Senna/Docusate Sodium 8.6/50 MG Tablet PO SCH ×2 (08:18→20:39)
[2017-09-04] MEDS: Heparin Central Flush 100 UNIT/ML 5 ML Vial IV.FLUSH SCH (08:19)
--- NOTE | 2017-09-04 08:43 | P.PNIM ---
Subjective Interval history: sleeping and on bipap thinks swelling finally improved Physical Exam Vital signs: Vital Signs 09/03/17 10:00 09/03/17 11:06 09/03/17 12:00 Temperature 98.3 F Pulse Rate 92 H 92 H 90 Respiratory Rate 20 10 L Blood Pressure 160/76 H Pulse Oximetry 96 09/03/17 14:00 09/03/17 14:46 09/03/17 15:12 Temperature Pulse Rate 84 80 Respiratory Rate 13 14 Blood Pressure Pulse Oximetry 09/03/17 16:00 09/03/17 18:00 09/03/17 19:59 Temperature 98.1 F Pulse Rate 84 92 H Respiratory Rate 12 22 Blood Pressure 143/66 H Pulse Oximetry 94 L 09/03/17 20:00 09/03/17 21:16 09/03/17 22:00 Temperature 98.3 F Pulse Rate 89 86 85 Respiratory Rate 14 18 Blood Pressure 142/67 H Pulse Oximetry 97 97 09/04/17 00:00 09/04/17 00:39 09/04/17 02:00 Temperature 98.6 F Pulse Rate 89 82 85 Respiratory Rate 16 12 12 Blood Pressure 167/84 H Pulse Oximetry 95 09/04/17 02:06 09/04/17 04:00 09/04/17 04:07 Temperature 98.2 F Pulse Rate 86 Respiratory Rate 15 14 22 Blood Pressure 155/69 H Pulse Oximetry 98 09/04/17 04:39 09/04/17 06:00 09/04/17 06:45 Temperature Pulse Rate 86 85 Respiratory Rate 14 11 L Blood Pressure Pulse Oximetry 100 09/04/17 07:16 Temperature Pulse Rate 86 Respiratory Rate 10 L Blood Pressure Pulse Oximetry 98 Intake & Output 09/03/17 09/04/17 09/04/17 18:59 06:59 18:59 Intake Total 1100 / 1100 1500 / 1500 Output Total 1175 / 1175 3250 / 3250 Balance -75 / -75 -1750 / -1750 Weight 181.4 kg Intake: IV 100 / 100 Rocephin Inj 2,000 MG In NS Inj 100 / 100 100 ML @ 200 mls/hr IV.SIG Q24H [facility] Rx#:[id number] Oral 1100 / 1100 1400 / 1400 Output: Urine 1175 / 1175 3250 / 3250 Stool 0 / 0 Urine/Stool Mix 0 / 0 Other: Post Void Residual 0 # Voids 3 # Incontinent Voids 0 # Urine Diapers 0 Date of Last Bowel Movement 09/03/17 09/03/17 # Bowel Movements 0 0 sleeping. on bipap scrotum and le ext swelling slightly improved right leg splinted. Results - Labs CBC & Chem 7: 09/02/17 04:20 09/04/17 03:30 Laboratory Results - last 24 hr 09/03/17 09/03/17 09/03/17 08:46 11:50 14:25 Sodium Potassium Chloride Carbon Dioxide Anion Gap BUN Creatinine Estimated GFR POC Glucose 193 H 160 H Random Glucose Calcium Prot Corrected Calcium Total Bilirubin AST ALT Alkaline Phosphatase Total Protein Albumin Urine Color Yellow Urine Clarity Hazy H Urine pH 5.0 Ur Specific [place] 1.011 Urine Protein 500 or greater Urine Glucose (UA) 50 Urine Ketones Negative Urine Occult Blood Small H Urine Nitrate Negative Urine Bilirubin Negative Urine Urobilinogen Less than 2 Ur Leukocyte Esterase Negative Urine RBC 2 Urine WBC 4 Ur Squamous Epith Cells 2 Urine Bacteria Rare H Hyaline Casts 1 Urine Mucus Few H Micro UA Comment Culture not ind 09/03/17 09/03/17 09/03/17 15:39 17:35 19:33 Sodium 137 Potassium 4.3 Chloride 94 L Carbon Dioxide 35.3 H Anion Gap 8 BUN 26 H Creatinine 1.22 Estimated GFR 64 L POC Glucose 196 H 149 H Random Glucose 141 H Calcium 8.6 Prot Corrected Calcium Total Bilirubin AST ALT Alkaline Phosphatase Total Protein Albumin Urine Color Urine Clarity Urine pH Ur Specific [place] Urine Protein Urine Glucose (UA) Urine Ketones Urine Occult Blood Urine Nitrate Urine Bilirubin Urine Urobilinogen Ur Leukocyte Esterase Urine RBC Urine WBC Ur Squamous Epith Cells Urine Bacteria Hyaline Casts Urine Mucus Micro UA Comment 09/04/17 03:30 Sodium 142 Potassium 3.6 Chloride 103 D Carbon Dioxide 30.4 Anion Gap 9 BUN 23 H Creatinine 0.98 Estimated GFR 82 L POC Glucose Random Glucose 165 H Calcium 6.9 L* D Prot Corrected Calcium 7.8 L Total Bilirubin 0.2 AST 7 L ALT 12 Alkaline Phosphatase 143 H Total Protein 5.4 L Albumin 2.3 L Urine Color Urine Clarity Urine pH Ur Specific [place] Urine Protein Urine Glucose (UA) Urine Ketones Urine Occult Blood Urine Nitrate Urine Bilirubin Urine Urobilinogen Ur Leukocyte Esterase Urine RBC Urine WBC Ur Squamous Epith Cells Urine Bacteria Hyaline Casts Urine Mucus Micro UA Comment - Imaging Impressions Abdomen/Bladder Ultrasound 09/03/17 00:00 CONCLUSION: Limited exam of the kidneys. The visualized secondary to the patient's body habitus. - Procedures Right posterior Achilles incision and drainage 08/24/[address] Hull Assessment and Plan - Assessment (1) Rupture of right Achilles tendon Code(s): S86.011A - Strain of right Achilles tendon, initial encounter Status : Acute Plan: (1) Rupture of right Achilles tendon Code(s): S86.011A - Strain of right Achilles tendon, initial encounter Status : Acute Plan: Open Achilles rupture, right - Recent admission with Achilles rupture - Pt underwent open repair of right Achilles tendon rupture with flexor hallucis longus tendon transfer and gastrocnemius recession, right lower extremity on 07/24/[address] Murillo. - Per podiatry, pt will need to be strict non-weight bearing for 6-8 weeks. - Pt was noted to have increased swelling and pain in the RLE on 08/04 - LE Doppler US (08/04) --> Is negative for DVT - Refused dc to snf and was noncompliant with weight bearing instructions. - Pt was readmitted with infection at operative site on 08/16 - He was seen by podiatry in clinic on 08/16 and sent to ED - MRI right ankle (08/16): 1. Postoperative change at the distal Achilles and calcaneus. Increased signal within the posterior calcaneus can all be consistent with postoperative change. It would be difficult to rule out osteomyelitis. 2. Fluid seen around the Achilles tendon. More superiorly in the mid lower leg, there is a larger fluid collection with peripheral enhancement. There is also a thinner fluid collection seen more superiorly in the proximal lower leg around the lateral aspect of the soleus muscle. These fluid collections could be postoperative seromas. An abscess could have a similar appearance. - vanco and Zosyn (08/17) - Rocephin (08/17 - present) - Comgmt with ID & Podiatry - Pt had a previous outpt culture taken on 08/11 which grew out Enterobacter cloacae - Right posterior Achilles incision and drainage 08/24/[address] Hull - Intraoperative wound Cx (08/24) --> Enterobacter cloacae - Plan to DC to SNF/rehab following hospitalization to ensure non-weight bearing of RLE and good recovery. Pt at risk for Right BKA. --discussed with [facility]. copay for snf defaulted. CM consulted. pt agreeable for snf. just need to get accepting facility -pt not ready for dc yet -discussed dc abx with ID. orders written -Pt moved to ICU after Halicat and hypoxia on 08/31. Pt had received small dose of morphine a few hrs before the event. He was refusing bipap but now agreeable. Pt being followed by Dr Sawyer He continues with severe anasarca/lower ext edema and scrotal swelling Had right heart cath on last admission revealing increased right heart pressure. He has also some mild systolic dysfunction ef 45% ...cardiology recommended getting renal consult if no improvement.. asked renal for evaluation of massive volume overload. Also he has sleep apnea/hypoventilation There is hypoalbuminemia. procardia lowered...?stop dvt prophylaxis Pt was on bumex gtt and diuresed 25L. about 20L negative balance. held when cr trended up..but now back on iv lasix per renal...will likely need to increase the dosage as we were giving him higher doses prior. will ask for fluid restriction....overall he does appear to show improvement in scrotal and LE edema finally. will observe and once fluid issue stable will dc to snf. - (2) Obesity hypoventilation syndrome Code(s): E66.2 - Morbid (severe) obesity with alveolar hypoventilation Status : Chronic Plan: Hypercapnic respiratory insufficiency Obesity hypoventilation syndrome COPD - 2-D echocardiogram 07/23/17: - The left ventricular systolic function is mildly reduced with an estimated ejection fraction in the range of 45- 50%. - Mild infero-posterior hypokinesis - Mild concentric left ventricular hypertrophy. - The left atrial size is moderately dilated. - RHC completed (07/28) --> Class 2 Pulm HTN, PCW 23 - No Right heart strain, so sildenafil was stopped - Pt is noncompliant with CPAP (3) COPD (chronic obstructive pulmonary disease) Code(s): J44.9 - Chronic obstructive pulmonary disease, unspecified Status: Chronic Plan: - chronic does not appear to be in acute exacerbation (4) Diabetes Code(s): E11.9 - Type 2 diabetes mellitus without complications Status: Chronic Plan: - Cont OHA and SSI. - Titrate as needed (5) HTN (hypertension) Code(s): I10 - Essential (primary) hypertension Status: Chronic Plan: Hypertension - cont current BP meds, , Cozaar 50mg q12H, Hydralazine 50mg TID, Coreg 25mg BID -try to lower or stop procardia. - Hydralazine PO PRN (6) Anemia Code(s): D64.9 - Anemia, unspecified Status: Chronic Plan: - Pts H/H has slowly been declining. No noted active GIB - iron deficiency anemia - Hg 8.7 (08/16) - During the last admission the pt was transfused with 2 units PRBCs (08/10) - During recent admission pt underwent evaluation with EGD/Colonoscopy (08/11/17 ) with Dr. Mccormick - int/ext hemorrhoids - sigmoid diverticulosis - esophagitis - gastric biopsies taken, results pending - Repeat labs on 08/21/17 with Hgb 8.3/Hct 24.6 -> 7.7/23.5 (08/24) -> 7.8/24.2, 7.6 (08/27), 8.5 (/) - Iron studies 08/08/17 Iron 26, TIBC 244, % saturation 10.7, ferritin 246 - ferritin 154 (08/27), retic 82 (/); b12 515, folate 7.9 (08/26) - case informally d/w Hematology - since ferritin > 100, unlikely d/t ANAHI - cancel Venofer - obtain peripheral smear, SPEP, UPEP - consider obtaining bone marrow - Hg improved following transfusion of 2 units PRBCs (08/27/17) (7) CAD (coronary artery disease) Code(s): I25.10 - Atherosclerotic heart disease of false pass coronary artery without angina pectoris Status: Chronic Plan: CAD (coronary artery disease) Recent history of pulmonary embolism - Patient had a PE approximately 8 months ago and was on Coumadin for until the cardiac cauterization 06/17/17 - Patient with recent cardiac catheterization with PCI 06/17/17 - After catheterization patient's Coumadin was DC'd and he was started on Aspirin and Plavix - Continue patient's Aspirin 81 mg daily, Plavix 75 mg PO daily, Atorvastatin 40 mg PO QHS and Coreg BID (8) Anxiety and depression Code(s): F41.9 - Anxiety disorder, unspecified; F32.9 - Major depressive disorder, single episode, unspecified Status: Chronic Plan: - Cont. Paxil 20mg daily (1) Rupture of right Achilles tendon Qualifiers: Encounter type: subsequent encounter Qualified Code(s): S86.011D - Strain of right Achilles tendon, subsequent encounter
[2017-09-04] MEDS: Insulin NovoLOG Aspart Correctional Sugar Inj SQ SCH ×4 (09:59→21:00)
--- NOTE | 2017-09-04 10:30 | P.PNNP ---
Subjective Interval history: Alert and oriented. Denies any shortness of breath. Bipap off this morning. <Beth Bolanos - Last Filed: 09/04/17 10:17> Physical Exam Vital signs: Vital Signs 09/03/17 11:06 09/03/17 12:00 09/03/17 14:00 Temperature 98.3 F Pulse Rate 92 H 90 84 Respiratory Rate 20 10 L Blood Pressure 160/76 H Pulse Oximetry 96 09/03/17 14:46 09/03/17 15:12 09/03/17 16:00 Temperature 98.1 F Pulse Rate 80 84 Respiratory Rate 13 14 12 Blood Pressure 143/66 H Pulse Oximetry 94 L 09/03/17 18:00 09/03/17 19:59 09/03/17 20:00 Temperature 98.3 F Pulse Rate 92 H 89 Respiratory Rate 22 14 Blood Pressure 142/67 H Pulse Oximetry 97 09/03/17 21:16 09/03/17 22:00 09/04/17 00:00 Temperature 98.6 F Pulse Rate 86 85 89 Respiratory Rate 18 16 Blood Pressure 167/84 H Pulse Oximetry 97 95 09/04/17 00:39 09/04/17 02:00 09/04/17 02:06 Temperature Pulse Rate 82 85 Respiratory Rate 12 12 15 Blood Pressure Pulse Oximetry 09/04/17 04:00 09/04/17 04:07 09/04/17 04:39 Temperature 98.2 F Pulse Rate 86 86 Respiratory Rate 14 22 14 Blood Pressure 155/69 H Pulse Oximetry 98 09/04/17 06:00 09/04/17 06:45 09/04/17 07:16 Temperature Pulse Rate 85 86 Respiratory Rate 11 L 10 L Blood Pressure Pulse Oximetry 100 98 09/04/17 08:00 09/04/17 10:00 Temperature 98.0 F Pulse Rate 91 H 79 Respiratory Rate 18 Blood Pressure 149/69 H Pulse Oximetry 98 Intake & Output 09/03/17 09/04/17 09/04/17 18:59 06:59 18:59 Intake Total 1100 / 1100 1500 / 1500 Output Total 1175 / 1175 3250 / 3250 Balance -75 / -75 -1750 / -1750 Weight 181.4 kg Intake: IV 100 / 100 Rocephin Inj 2,000 MG In NS Inj 100 / 100 100 ML @ 200 mls/hr IV.SIG Q24H [facility] Rx#:[id number] Oral 1100 / 1100 1400 / 1400 Output: Urine 1175 / 1175 3250 / 3250 Stool 0 / 0 Urine/Stool Mix 0 / 0 Other: Post Void Residual 0 # Voids 3 # Incontinent Voids 0 # Urine Diapers 0 Date of Last Bowel Movement 09/03/17 09/03/17 # Bowel Movements 0 0 - Constitutional no acute distress, obese - Routine HEENT Exam Head: Present: normocephalic ENT: Present: mucous membranes moist - Routine Neck Exam Present: supple, JVD - Routine Respiratory Exam Present: decreased breath sounds. Absent: rales, rhonchi - Routine Cardiovascular Exam Present: RRR - Routine Abdominal Exam Present: soft, normoactive bowel sounds Comments: large - Routine Exam Scrotal: Present: swelling - Routine Extremities Exam Present: edema - Routine Skin Exam Present: dry, warm - Routine Neurological Exam Present: alert, oriented X3 - Routine Psychiatric Exam Present: cooperative <Beth Bolanos - Last Filed: 09/04/17 10:17> Vital signs: Vital Signs 09/04/17 11:27 09/04/17 12:00 09/04/17 14:00 Temperature 98.8 F Pulse Rate 84 79 84 Respiratory Rate 16 Blood Pressure 137/65 Pulse Oximetry 09/04/17 16:00 09/04/17 18:00 09/04/17 19:50 Temperature 98.8 F Pulse Rate 82 84 85 Respiratory Rate 18 Blood Pressure 153/74 H Pulse Oximetry 98 09/04/17 20:00 09/04/17 20:38 09/04/17 22:00 Temperature 98.1 F Pulse Rate 84 81 Respiratory Rate 8 L 15 14 Blood Pressure 149/79 H Pulse Oximetry 100 09/04/17 23:59 09/05/17 00:00 09/05/17 00:01 Temperature 98.6 F Pulse Rate 82 81 Respiratory Rate 12 12 14 Blood Pressure 157/72 H 157/72 H Pulse Oximetry 95 95 09/05/17 00:05 09/05/17 00:42 09/05/17 02:00 Temperature Pulse Rate 80 81 87 Respiratory Rate 11 L 18 Blood Pressure Pulse Oximetry 96 09/05/17 04:00 09/05/17 04:12 09/05/17 04:27 Temperature 98.4 F Pulse Rate 83 85 Respiratory Rate 13 14 20 Blood Pressure 143/80 H Pulse Oximetry 95 09/05/17 04:45 09/05/17 06:00 09/05/17 07:38 Temperature Pulse Rate 78 81 Respiratory Rate 14 14 Blood Pressure Pulse Oximetry 98 99 Intake & Output 09/04/17 09/05/17 09/05/17 18:59 06:59 18:59 Intake Total 50 / 50 1589 / 1589 Output Total 2400 / 2400 1700 / 1700 Balance -2350 / -2350 -111 / -111 Weight 181.4 kg Intake: IV 50 / 50 150 / 150 Flexbumin 25% Inj 50 ML @ 60 50 / 50 50 / 50 mls/hr IV.SIG Q12H [facility] Rx#: [id number] Rocephin Inj 2,000 MG In NS Inj 100 / 100 100 ML @ 200 mls/hr IV.SIG Q24H [facility] Rx#:[id number] Oral 1439 / 1439 Output: Urine 2400 / 2400 1700 / 1700 Other: Date of Last Bowel Movement 09/03/17 09/05/17 # Bowel Movements 1 <Dash Steele - Last Filed: 09/05/17 10:36> Assessment and Plan - Assessment (1) Anasarca Code(s): R60.1 - Generalized edema Status: Acute Plan: Significant edema and anasarca. Urinalysis with significant protein on losartan Renal ultrasound: Limited exam of the kidneys secondary to the patient's body habitus. Creatinine has remained stable with diuresis at 0.98 Will increase lasix to 60 mg BID and add albumin Will monitor the urine output and BUN and creatinine closely (2) Diabetes Code(s): E11.9 - Type 2 diabetes mellitus without complications Status: Chronic Qualifiers: Diabetes mellitus type: type 2 Plan: Maintain blood sugar 140mg/dl- 180mg/dl (3) HTN (hypertension) Code(s): I10 - Essential (primary) hypertension Status: Chronic Plan: Will continue to monitor <Beth Bolanos - Last Filed: 09/04/17 10:17> - Assessment (1) Anasarca Code(s): R60.1 - Generalized edema Status: Acute (2) Diabetes Code(s): E11.9 - Type 2 diabetes mellitus without complications Status: Chronic Qualifiers: Diabetes mellitus type: type 2 (3) HTN (hypertension) Code(s): I10 - Essential (primary) hypertension Status: Chronic - Attending Attestation Patient seen and examined, agree with above. Creatinine is better, urine out put is good. Continue Lasix. <Dash Steele - Last Filed: 09/05/17 10:36>
[2017-09-04] MEDS: Albumin Human 25% Inj 50 ML IV.SIG SCH ×2 (12:25→22:56)
--- NOTE | 2017-09-04 18:33 | P.PNPL ---
Subjective Interval history: 47 YOWM with Achelis tendon repair,JUDY,COPD Has huge scrotal swelling Diureasing Used CPAP last night Usually sleeps during day time, up at night Physical Exam Vital signs: Vital Signs 09/03/17 19:59 09/03/17 20:00 09/03/17 21:16 Temperature 98.3 F Pulse Rate 89 86 Respiratory Rate 22 14 18 Blood Pressure 142/67 H Pulse Oximetry 97 97 09/03/17 22:00 09/04/17 00:00 09/04/17 00:39 Temperature 98.6 F Pulse Rate 85 89 82 Respiratory Rate 16 12 Blood Pressure 167/84 H Pulse Oximetry 95 09/04/17 02:00 09/04/17 02:06 09/04/17 04:00 Temperature 98.2 F Pulse Rate 85 86 Respiratory Rate 12 15 14 Blood Pressure 155/69 H Pulse Oximetry 98 09/04/17 04:07 09/04/17 04:39 09/04/17 06:00 Temperature Pulse Rate 86 85 Respiratory Rate 22 14 11 L Blood Pressure Pulse Oximetry 09/04/17 06:45 09/04/17 07:16 09/04/17 08:00 Temperature 98.0 F Pulse Rate 86 91 H Respiratory Rate 10 L 18 Blood Pressure 149/69 H Pulse Oximetry 100 98 98 09/04/17 10:00 09/04/17 11:27 09/04/17 12:00 Temperature 98.8 F Pulse Rate 79 84 79 Respiratory Rate 16 Blood Pressure 137/65 Pulse Oximetry 09/04/17 14:00 09/04/17 16:00 09/04/17 18:00 Temperature 98.8 F Pulse Rate 84 82 84 Respiratory Rate Blood Pressure 153/74 H Pulse Oximetry Intake & Output 09/03/17 09/04/17 09/04/17 18:59 06:59 18:59 Intake Total 1100 / 1100 1500 / 1500 Output Total 1175 / 1175 3250 / 3250 2400 / 2400 Balance -75 / -75 -1750 / -1750 -2400 / -2400 Weight 181.4 kg Intake: IV 100 / 100 Rocephin Inj 2,000 MG In NS Inj 100 / 100 100 ML @ 200 mls/hr IV.SIG Q24H [facility] Rx#:[id number] Oral 1100 / 1100 1400 / 1400 Output: Urine 1175 / 1175 3250 / 3250 2400 / 2400 Stool 0 / 0 Urine/Stool Mix 0 / 0 Other: Post Void Residual 0 # Voids 3 # Incontinent Voids 0 # Urine Diapers 0 Date of Last Bowel Movement 09/03/17 09/03/17 09/03/17 # Bowel Movements 0 0 GENERAL: Obese male, NAD SKIN: Warm and dry. HEAD: Normocephalic. EYES: No scleral icterus. No injection or drainage. NECK: Supple, trachea midline. No JVD or lymphadenopathy. CARDIOVASCULAR: Regular rate and rhythm without murmurs, gallops, or rubs. RESPIRATORY: Breath sounds equal bilaterally. No accessory muscle use. GASTROINTESTINAL: Abdomen soft, non-tender, nondistended. MUSCULOSKELETAL: No cyanosis, ++ edema. , scrotal swelling BACK: Nontender without obvious deformity. No CVA tenderness. Narrative: oriented lying in bed heart reg lung cta abd s/nt ext anasarca flanks/lower ext/scrotum right leg splinted Assessment and Plan - Plan IMPRESSION: 1. Hypercapnic respiratory insufficiency. 2. Chronic obstructive pulmonary disease. 3. Obstructive sleep apnea. 4. Achilles tendon repair and leg infection. 5. Diabetes mellitus. 5. Scrotal edema. PLAN: Aerosol nebs Supplement 02 CPAP at night Cont Abx SQ Lovenox DW pt and his
[2017-09-04] MEDS: Enoxaparin Inj 40 MG/0.4 ML Syringe SQ SCH (22:56)
[2017-09-04] MEDS: LORazepam 0.5 MG Tablet PO PRN (22:56)
[2017-09-05] MEDS: Gabapentin 300 MG Capsule PO SCH ×3 (05:20→21:58)
[2017-09-05 05:25] LABS: Calcium 8.6 mg/dL (8.5-10.1); Carbon Dioxide 37.1 meq/L (21.0-32.0); Potassium 4.6 meq/L (3.5-5.1)
[2017-09-05] MEDS: Insulin NovoLOG Aspart Correctional Sugar Inj SQ SCH ×4 (08:00→21:55)
[2017-09-05] MEDS: Heparin Central Flush 100 UNIT/ML 5 ML Vial IV.FLUSH SCH (09:00)
[2017-09-05] MEDS: Nystatin Liq 500,000 UNIT/5 ML UDC SWISH-SWAL SCH ×4 (09:56→21:57)
[2017-09-05] MEDS: Allopurinol 100 MG Tablet PO SCH (09:56)
[2017-09-05] MEDS: Carvedilol 12.5 MG Tablet PO SCH ×2 (09:56→21:58)
[2017-09-05] MEDS: hydrALAZINE 25 MG Tablet PO SCH ×3 (09:57→19:23)
[2017-09-05] MEDS: Senna/Docusate Sodium 8.6/50 MG Tablet PO SCH ×2 (09:57→21:59)
--- NOTE | 2017-09-05 10:17 | P.PNNP ---
Subjective Interval history: No acute complaints. Creatinine slightly increased at 1.26 from 0.98. O2 3liters via NC. Edema is improving but still considerable. <Beth Bolanos - Last Filed: 09/05/17 10:01> Physical Exam Vital signs: Vital Signs 09/04/17 11:27 09/04/17 12:00 09/04/17 14:00 Temperature 98.8 F Pulse Rate 84 79 84 Respiratory Rate 16 Blood Pressure 137/65 Pulse Oximetry 09/04/17 16:00 09/04/17 18:00 09/04/17 19:50 Temperature 98.8 F Pulse Rate 82 84 85 Respiratory Rate 18 Blood Pressure 153/74 H Pulse Oximetry 98 09/04/17 20:00 09/04/17 20:38 09/04/17 22:00 Temperature 98.1 F Pulse Rate 84 81 Respiratory Rate 8 L 15 14 Blood Pressure 149/79 H Pulse Oximetry 100 09/04/17 23:59 09/05/17 00:00 09/05/17 00:01 Temperature 98.6 F Pulse Rate 82 81 Respiratory Rate 12 12 14 Blood Pressure 157/72 H 157/72 H Pulse Oximetry 95 95 09/05/17 00:05 09/05/17 00:42 09/05/17 02:00 Temperature Pulse Rate 80 81 87 Respiratory Rate 11 L 18 Blood Pressure Pulse Oximetry 96 09/05/17 04:00 09/05/17 04:12 09/05/17 04:27 Temperature 98.4 F Pulse Rate 83 85 Respiratory Rate 13 14 20 Blood Pressure 143/80 H Pulse Oximetry 95 09/05/17 04:45 09/05/17 06:00 09/05/17 07:38 Temperature Pulse Rate 78 81 Respiratory Rate 14 14 Blood Pressure Pulse Oximetry 98 99 Intake & Output 09/04/17 09/05/17 09/05/17 18:59 06:59 18:59 Intake Total 50 / 50 1589 / 1589 Output Total 2400 / 2400 1700 / 1700 Balance -2350 / -2350 -111 / -111 Weight 181.4 kg Intake: IV 50 / 50 150 / 150 Flexbumin 25% Inj 50 ML @ 60 50 / 50 50 / 50 mls/hr IV.SIG Q12H [facility] Rx#: [id number] Rocephin Inj 2,000 MG In NS Inj 100 / 100 100 ML @ 200 mls/hr IV.SIG Q24H [facility] Rx#:[id number] Oral 1439 / 1439 Output: Urine 2400 / 2400 1700 / 1700 Other: Date of Last Bowel Movement 09/03/17 09/05/17 # Bowel Movements 1 - Constitutional no acute distress, morbidly obese - Routine HEENT Exam Head: Present: normocephalic ENT: Present: mucous membranes moist - Routine Neck Exam Present: supple. Absent: JVD - Routine Respiratory Exam Present: decreased breath sounds. Absent: rales, rhonchi, wheezes - Routine Cardiovascular Exam Present: RRR - Routine Abdominal Exam Present: soft, normoactive bowel sounds Comments: large - Routine Extremities Exam Present: edema - Routine Skin Exam Present: erythema, dry, warm - Routine Neurological Exam Present: alert, oriented X3 - Routine Psychiatric Exam Present: cooperative <Beth Bolanos - Last Filed: 09/05/17 10:01> Vital signs: Vital Signs 09/05/17 14:00 09/05/17 15:01 09/05/17 15:37 Pulse Rate 87 82 82 Respiratory Rate 12 16 26 H Blood Pressure 152/72 H 123/60 Pulse Oximetry 96 09/05/17 16:00 09/05/17 16:01 09/05/17 17:00 Pulse Rate 84 84 85 Respiratory Rate 14 13 20 Blood Pressure 153/71 H 156/71 H Pulse Oximetry 97 97 97 09/05/17 18:00 09/05/17 19:00 09/05/17 20:00 Pulse Rate 91 H 85 91 H Respiratory Rate 29 H 10 L 21 Blood Pressure 148/69 H 151/65 H 143/69 H Pulse Oximetry 96 97 92 L 09/05/17 20:35 09/05/17 20:36 09/05/17 21:00 Pulse Rate 85 86 Respiratory Rate 16 15 Blood Pressure 132/58 L Pulse Oximetry 98 96 09/05/17 21:55 09/05/17 22:00 09/05/17 23:00 Pulse Rate 90 89 Respiratory Rate 23 14 14 Blood Pressure 133/62 137/63 Pulse Oximetry 96 96 09/05/17 23:14 09/06/17 00:00 09/06/17 01:00 Pulse Rate 86 87 92 H Respiratory Rate 17 14 16 Blood Pressure 132/60 150/67 H Pulse Oximetry 96 94 L 09/06/17 02:00 09/06/17 03:00 09/06/17 03:04 Pulse Rate 93 H 92 H 96 H Respiratory Rate 16 16 16 Blood Pressure 153/70 H 156/70 H Pulse Oximetry 98 94 L 09/06/17 04:00 09/06/17 04:20 09/06/17 04:40 Pulse Rate 96 H 92 H Respiratory Rate 42 H 17 Blood Pressure 147/69 H Pulse Oximetry 97 97 99 09/06/17 05:00 09/06/17 05:27 09/06/17 06:00 Pulse Rate 88 92 H 91 H Respiratory Rate 18 18 15 Blood Pressure 158/73 H 178/88 H Pulse Oximetry 98 99 91 L 09/06/17 07:00 09/06/17 08:40 Pulse Rate 98 H Respiratory Rate 18 Blood Pressure 158/82 H Pulse Oximetry 95 98 Intake & Output 09/05/17 09/06/17 09/06/17 18:59 06:59 18:59 Intake Total 1999 510 / 510 Output Total 5120 / 5120 1925 / 1925 Balance -3120 / -3120 -1415 / -1415 Weight 181.4 kg Intake: IV 50 / 50 150 / 150 Flexbumin 25% Inj 50 ML @ 60 50 / 50 50 / 50 mls/hr IV.SIG Q12H [facility] Rx#: [id number] Rocephin Inj 2,000 MG In NS Inj 100 / 100 100 ML @ 200 mls/hr IV.SIG Q24H [facility] Rx#:[id number] Oral 950 / 950 360 / 360 Anesthesia Amount 500 / 500 Other 500 / 500 Output: Urine 5100 / 5100 1925 / 1925 Stool 0 / 0 Urine/Stool Mix 0 / 0 Estimated Blood Loss 20 / 20 Other: Post Void Residual 0 # Incontinent Voids 0 # Urine Diapers 0 Date of Last Bowel Movement 09/03/17 09/03/17 # Bowel Movements 0 <Dash Steele - Last Filed: 09/06/17 13:26> Assessment and Plan - Assessment (1) Anasarca Code(s): R60.1 - Generalized edema Status: Acute Plan: Significant edema and anasarca. Urinalysis with significant protein on losartan Renal ultrasound: Limited exam of the kidneys secondary to the patient's body habitus. Creatinine has slightly increased at 1.26 from 0.98 Continue lasix to 60 mg BID and albumin, slight increase in creatinine will continue to monitor Will monitor the urine output and BUN and creatinine closely (2) Diabetes Code(s): E11.9 - Type 2 diabetes mellitus without complications Status: Chronic Qualifiers: Diabetes mellitus type: type 2 Plan: Maintain blood sugar 140mg/dl- 180mg/dl (3) HTN (hypertension) Code(s): I10 - Essential (primary) hypertension Status: Chronic Plan: Will continue to monitor <Beth Bolanos - Last Filed: 09/05/17 10:01> - Assessment (1) Anasarca Code(s): R60.1 - Generalized edema Status: Acute (2) Diabetes Code(s): E11.9 - Type 2 diabetes mellitus without complications Status: Chronic Qualifiers: Diabetes mellitus type: type 2 (3) HTN (hypertension) Code(s): I10 - Essential (primary) hypertension Status: Chronic - Attending Attestation Patient seen and examined, agree with above. Continue Lasix and Albumin, 24 hrs protein collection in progress. <Dash Steele - Last Filed: 09/06/17 13:26>
[2017-09-05] MEDS: Albumin Human 25% Inj 50 ML IV.SIG SCH ×2 (12:44→22:00)
--- NOTE | 2017-09-05 15:12 | P.PNIM ---
Subjective Interval history: Pt with some increased swelling in the LLE and foot today Slightly less scrotal swelling Pt still requiring 3-4L of supplemental O2 Denies any cough, chest pain or palpitations Physical Exam Vital signs: Vital Signs 09/04/17 16:00 09/04/17 18:00 09/04/17 19:50 Temperature 98.8 F Pulse Rate 82 84 85 Respiratory Rate 18 Blood Pressure 153/74 H Pulse Oximetry 98 09/04/17 20:00 09/04/17 20:38 09/04/17 22:00 Temperature 98.1 F Pulse Rate 84 81 Respiratory Rate 8 L 15 14 Blood Pressure 149/79 H Pulse Oximetry 100 09/04/17 23:59 09/05/17 00:00 09/05/17 00:01 Temperature 98.6 F Pulse Rate 82 81 Respiratory Rate 12 12 14 Blood Pressure 157/72 H 157/72 H Pulse Oximetry 95 95 09/05/17 00:05 09/05/17 00:42 09/05/17 02:00 Temperature Pulse Rate 80 81 87 Respiratory Rate 11 L 18 Blood Pressure Pulse Oximetry 96 09/05/17 04:00 09/05/17 04:12 09/05/17 04:27 Temperature 98.4 F Pulse Rate 83 85 Respiratory Rate 13 14 20 Blood Pressure 143/80 H Pulse Oximetry 95 09/05/17 04:45 09/05/17 06:00 09/05/17 07:38 Temperature Pulse Rate 78 81 Respiratory Rate 14 14 Blood Pressure Pulse Oximetry 98 99 09/05/17 11:50 Temperature Pulse Rate 84 Respiratory Rate 13 Blood Pressure Pulse Oximetry Intake & Output 09/04/17 09/05/17 09/05/17 18:59 06:59 18:59 Intake Total 50 / 50 1589 / 1589 Output Total 2400 / 2400 1700 / 1700 Balance -2350 / -2350 -111 / -111 Weight 181.4 kg Intake: IV 50 / 50 150 / 150 Flexbumin 25% Inj 50 ML @ 60 50 / 50 50 / 50 mls/hr IV.SIG Q12H [facility] Rx#: [id number] Rocephin Inj 2,000 MG In NS Inj 100 / 100 100 ML @ 200 mls/hr IV.SIG Q24H [facility] Rx#:[id number] Oral 1439 / 1439 Output: Urine 2400 / 2400 1700 / 1700 Other: Date of Last Bowel Movement 09/03/17 09/05/17 # Bowel Movements 1 Narrative: General: NAD, AAOx3 Cardiac: regular Chest: CTA bilaterally Abd: +BS, soft, distended, obese, nontender Ext: Anasarca flanks/lower ext/scrotum, right leg splinted Results - Labs CBC & Chem 7: 09/09/17 12:19 09/08/17 03:45 Laboratory Results - last 24 hr 09/04/17 09/04/17 09/05/17 17:40 19:51 04:19 Sodium 138 Potassium 4.6 D Chloride 97 L Carbon Dioxide 37.1 H Anion Gap 4 L BUN 27 H Creatinine 1.26 Estimated GFR 62 L POC Glucose 208 H 168 H Random Glucose 123 H Calcium 8.6 D 09/05/17 09/05/17 08:35 12:26 Sodium Potassium Chloride Carbon Dioxide Anion Gap BUN Creatinine Estimated GFR POC Glucose 134 H 189 H Random Glucose Calcium - Imaging Needle Aspiration US 08/22/17 00:00 CONCLUSION: Very minimal serosanguineous fluid approximating 0.5 cc. Foot X-Ray 08/25/17 07:11 CONCLUSION: 1. No acute fracture or dislocation. 2. Soft tissue swelling about the hind and midfoot. Chest X-Ray 08/27/17 16:44 CONCLUSION: Cardiomegaly with basilar airspace disease most characteristic of mild pulmonary edema. Scrotum Ultrasound 08/31/17 00:00 CONCLUSION: 1. Significant scrotal edema. 2. Trace hydrocele 3. Testicles appear normal. Chest X-Ray 08/31/17 14:02 CONCLUSION: Resolving congestive heart failure Abdomen/Bladder Ultrasound 09/03/17 00:00 CONCLUSION: Limited exam of the kidneys. The visualized secondary to the patient's body habitus. - Procedures Right posterior Achilles incision and drainage 08/24/[address] Hull Assessment and Plan - Assessment (1) Rupture of right Achilles tendon Code(s): S86.011A - Strain of right Achilles tendon, initial encounter Status : Acute Plan: Open Achilles rupture, right - Recent admission with Achilles rupture - Pt underwent open repair of right Achilles tendon rupture with flexor hallucis longus tendon transfer and gastrocnemius recession, right lower extremity on 07/24/[address] Murillo. - Per podiatry, pt will need to be strict non-weight bearing for 6-8 weeks. - Pt was noted to have increased swelling and pain in the RLE on 08/04 - LE Doppler US (08/04) --> Is negative for DVT - Refused dc to snf and was noncompliant with weight bearing instructions. - Pt was readmitted with infection at operative site on 08/16 - He was seen by podiatry in clinic on 08/16 and sent to ED - MRI right ankle (08/16): 1. Postoperative change at the distal Achilles and calcaneus. Increased signal within the posterior calcaneus can all be consistent with postoperative change. It would be difficult to rule out osteomyelitis. 2. Fluid seen around the Achilles tendon. More superiorly in the mid lower leg, there is a larger fluid collection with peripheral enhancement. There is also a thinner fluid collection seen more superiorly in the proximal lower leg around the lateral aspect of the soleus muscle. These fluid collections could be postoperative seromas. An abscess could have a similar appearance. - Yasmeen (08/17) - Kelli (08/17 - present) - Comgmt with ID & Podiatry - Pt had a previous outpt culture taken on 08/11 which grew out Enterobacter cloacae - Right posterior Achilles incision and drainage 08/24/[address] Hull - Intraoperative wound Cx (08/24) --> Enterobacter cloacae - Plan to DC to SNF/rehab following hospitalization to ensure non-weight bearing of RLE and good recovery. Pt at risk for Right BKA. - The case was discussed with [facility]CP. Copay for SNF was defaulted. CM consulted. Pt agreeable for SNF but need to get accepting facility - Pt not ready for dc yet - Discussed dc abx with ID. orders written Volume overload Anasarca/edema - Pt was moved to ICU after Halicat and hypoxia on 08/31. Pt had received small dose of morphine a few hrs before the event. He was refusing bipap but now agreeable. Pt being followed by Dr Sawyer. - He continues with severe anasarca/lower ext edema and scrotal swelling. Also he has sleep apnea/hypoventilation and has hypoalbuminemia. - Procardia lowered to 30mg BID on 08/31, BP is stable. - Had right heart cath on last admission revealing increased right heart pressure. He has also some mild systolic dysfunction with EF 45% - Nephrology was consulted for evaluation of massive volume overload. - Pt was on Bumex gtt and diuresed 25L with about 20L negative balance. This was held when cr trended up, but now back on IV Lasix per renal. - Increase Lasix to 80mg TID on 09/05 and monitor labs closely. - Pt is on fluid restriction - Cont. to observe and once fluid issue stable will dc to SNF - DVT prophylaxis Obesity hypoventilation syndrome Hypercapnic respiratory insufficiency Obesity hypoventilation syndrome COPD - 2-D echocardiogram 07/23/17: - The left ventricular systolic function is mildly reduced with an estimated ejection fraction in the range of 45- 50%. - Mild infero-posterior hypokinesis - Mild concentric left ventricular hypertrophy. - The left atrial size is moderately dilated. - RHC completed (07/28) --> Class 2 Pulm HTN, PCW 23 - No Right heart strain, so sildenafil was stopped - Pt is noncompliant with CPAP COPD (chronic obstructive pulmonary disease) - chronic does not appear to be in acute exacerbation - Pt requiring 3-4L of supplemental O2 - Repeat CXR in AM Diabetes - Cont OHA and SSI. - Titrate as needed HTN (hypertension) - cont current BP meds, Cozaar 50mg q12H, Hydralazine 50mg TID, Coreg 25mg BID - May try to lower or stop Procardia. - Hydralazine PO PRN Anemia - Pts H/H has slowly been declining. No noted active GIB - iron deficiency anemia - Hg 8.7 (08/16) - During the last admission the pt was transfused with 2 units PRBCs (08/10) - During recent admission pt underwent evaluation with EGD/Colonoscopy (08/11/17 ) with Dr. Mccormick - int/ext hemorrhoids - sigmoid diverticulosis - esophagitis - gastric biopsies taken, results pending - Repeat labs on 08/21/17 with Hgb 8.3/Hct 24.6 -> 7.7/23.5 (08/24) -> 7.8/24.2, 7.6 (08/27), 8.5 (08/28) - Iron studies 08/08/17 Iron 26, TIBC 244, % saturation 10.7, ferritin 246 - ferritin 154 (08/27), retic 82 (08/27); b12 515, folate 7.9 (08/26) - case informally d/w Hematology - since ferritin > 100, unlikely d/t ANAHI - Hg improved following transfusion of 2 units PRBCs (08/27/17) - Check labs on 09/06 CAD (coronary artery disease) Recent history of pulmonary embolism - Patient had a PE approximately 8 months ago and was on Coumadin for until the cardiac cauterization 06/17/17 - Patient with recent cardiac catheterization with PCI 06/17/17 - After catheterization patient's Coumadin was DC'd and he was started on Aspirin and Plavix - Continue patient's Aspirin 81 mg daily, Plavix 75 mg PO daily, Atorvastatin 40 mg PO QHS and Coreg BID Anxiety and depression - Cont. Paxil 20mg daily - Attending Attestation Patient examined. Assessment and plan formulated with Minda Almazan PA-C. I agree with the above. (1) Rupture of right Achilles tendon Qualifiers: Encounter type: subsequent encounter Qualified Code(s): S86.011D - Strain of right Achilles tendon, subsequent encounter
[2017-09-05] MEDS: LORazepam 0.5 MG Tablet PO PRN (15:15)
[2017-09-05] MEDS: Glimepiride 2 MG Tablet PO SCH ×2 (15:15→19:23)
--- NOTE | 2017-09-05 19:50 | P.PNPL ---
Subjective Interval history: 47 YOWM with Achelis tendon repair,JUDY,COPD Has huge scrotal swelling Diureasing Used CPAP last night Up in chair Lasix Increased 80 mg q 8 hrs Physical Exam Vital signs: Vital Signs 09/04/17 19:50 09/04/17 20:00 09/04/17 20:38 Temperature 98.1 F Pulse Rate 85 84 Respiratory Rate 18 8 L 15 Blood Pressure 149/79 H Pulse Oximetry 98 100 09/04/17 22:00 09/04/17 23:59 09/05/17 00:00 Temperature 98.6 F Pulse Rate 81 82 Respiratory Rate 14 12 12 Blood Pressure 157/72 H Pulse Oximetry 95 09/05/17 00:01 09/05/17 00:05 09/05/17 00:42 Temperature Pulse Rate 81 80 81 Respiratory Rate 14 11 L 18 Blood Pressure 157/72 H Pulse Oximetry 95 96 09/05/17 02:00 09/05/17 04:00 09/05/17 04:12 Temperature 98.4 F Pulse Rate 87 83 Respiratory Rate 13 14 Blood Pressure 143/80 H Pulse Oximetry 95 09/05/17 04:27 09/05/17 04:45 09/05/17 06:00 Temperature Pulse Rate 85 78 Respiratory Rate 20 14 Blood Pressure Pulse Oximetry 98 09/05/17 07:38 09/05/17 08:00 09/05/17 11:50 Temperature Pulse Rate 81 82 84 Respiratory Rate 14 14 13 Blood Pressure Pulse Oximetry 99 96 09/05/17 15:37 Temperature Pulse Rate 82 Respiratory Rate 26 H Blood Pressure Pulse Oximetry Intake & Output 09/05/17 09/05/17 09/06/17 06:59 18:59 06:59 Intake Total 1589 / 1589 Output Total 1700 / 1700 Balance -111 / -111 Weight 181.4 kg Intake: IV 150 / 150 Flexbumin 25% Inj 50 ML @ 60 50 / 50 mls/hr IV.SIG Q12H [facility] Rx#: [id number] Rocephin Inj 2,000 MG In NS Inj 100 / 100 100 ML @ 200 mls/hr IV.SIG Q24H [facility] Rx#:[id number] Oral 1439 / 1439 Output: Urine 1700 / 1700 Other: Date of Last Bowel Movement 09/05/17 09/03/17 # Bowel Movements 1 GENERAL: Obese male , mild sob SKIN: Warm and dry. HEAD: Normocephalic. EYES: No scleral icterus. No injection or drainage. NECK: Supple, trachea midline. No JVD or lymphadenopathy. CARDIOVASCULAR: Regular rate and rhythm without murmurs, gallops, or rubs. RESPIRATORY: Breath sounds equal bilaterally. No accessory muscle use. GASTROINTESTINAL: Abdomen soft, non-tender, nondistended. MUSCULOSKELETAL: No cyanosis, ++ edema. Scrotal swelling. BACK: Nontender without obvious deformity. No CVA tenderness. Narrative: General: NAD, AAOx3 Cardiac: regular Chest: CTA bilaterally Abd: +BS, soft, distended, obese, nontender Ext: Anasarca flanks/lower ext/scrotum, right leg splinted Assessment and Plan - Plan IMPRESSION: 1. Hypercapnic respiratory insufficiency. 2. Chronic obstructive pulmonary disease. 3. Obstructive sleep apnea. 4. Achilles tendon repair and leg infection. 5. Diabetes mellitus. 5. Scrotal edema. PLAN: Aerosol nebs Supplement 02 CPAP at night Cont Abx SQ Lovenox lasix 80 mg IV q 8 hrs DW pt and his
[2017-09-05] MEDS: Enoxaparin Inj 40 MG/0.4 ML Syringe SQ SCH (22:00)
[2017-09-06] MEDS: LORazepam 0.5 MG Tablet PO PRN ×2 (00:22→06:45)
[2017-09-06 03:46] LABS: Baso # (Auto) 0.1 th/mm3 (0.0-0.2); Baso % (Auto) 1.1 % (0.0-2.0); Eos # (Auto) 0.1 th/mm3 (0.0-0.4); Eos % (Auto) 2.3 % (0.0-4.0); Hematocrit 23.9 % (39.0-51.0); Hemoglobin 7.7 gm/dL (13.0-17.0); Lymph # (Auto) 0.9 th/mm3 (1.0-4.8); Lymph % (Auto) 16.8 % (9.0-44.0); Mean Corpuscular HGB Conc 32.4 % (32.0-36.0); Mean Corpuscular Hemoglobin 26.1 pg (27.0-34.0); Mean Corpuscular Volume 80.5 fL (80.0-100.0); Mean Platelet Volume 6.6 fL (7.0-11.0); Mono # (Auto) 0.8 th/mm3 (0.0-0.9); Mono % (Auto) 16.1 % (0.0-8.0); Neut # (Auto) 3.3 th/mm3 (1.8-7.7); Neut % (Auto) 63.7 % (16.0-70.0); Platelet Count 228 th/mm3 (150-450); Red Blood Count 2.97 mil/mm3 (4.50-5.90); Red Cell Distribution Width 15.5 % (11.6-17.2); White Blood Count 5.2 th/mm3 (4.0-11.0)
[2017-09-06 04:00] LABS: Calcium 8.3 mg/dL (8.5-10.1); Carbon Dioxide 35.9 meq/L (21.0-32.0); Potassium 4.9 meq/L (3.5-5.1)
--- NOTE | 2017-09-06 04:54 | XR ---
EXAM DATE: 09/06/2017 4:18 AM EDT AGE/SEX: 47 years / Male INDICATIONS: . Short of breath. CLINICAL DATA: This is the patient's subsequent encounter. Patient reports that signs and symptoms h ave been present for 1 week and indicates a pain score of 0/10. MEDICAL/SURGICAL HISTORY: Chronic obstructive pulmonary disease. Congestive heart failure. Non e. [place] [facility] [place]. . FINDINGS: Is cardiomegaly with interstitial and alveolar changes predominantly at the lung bases. This may repr esent mild pulmonary edema. No significant effusion. CONCLUSION: Mild congestive heart failure. Electronically signed by: Bar Kramer MD 09/06/2017 4:53 AM EDT
[2017-09-06] MEDS: Gabapentin 300 MG Capsule PO SCH ×3 (06:45→22:00)
--- NOTE | 2017-09-06 09:07 | P.PNNP ---
Subjective Interval history: Patient is lethargic this morning. On O2 at 2 liters via NC. Continues to have severe anasarca and scrotal swelling, improving. <Beth Bolanos - Last Filed: 09/06/17 08:53> Physical Exam Vital signs: Vital Signs 09/05/17 10:00 09/05/17 11:00 09/05/17 11:50 Pulse Rate 82 84 84 Respiratory Rate 15 13 13 Blood Pressure 136/66 127/60 Pulse Oximetry 96 95 09/05/17 12:01 09/05/17 13:00 09/05/17 14:00 Pulse Rate 84 88 87 Respiratory Rate 12 19 12 Blood Pressure 161/77 H 150/65 H 152/72 H Pulse Oximetry 96 96 96 09/05/17 15:01 09/05/17 15:37 09/05/17 16:00 Pulse Rate 82 82 84 Respiratory Rate 16 26 H 14 Blood Pressure 123/60 Pulse Oximetry 97 09/05/17 16:01 09/05/17 17:00 09/05/17 18:00 Pulse Rate 84 85 91 H Respiratory Rate 13 20 29 H Blood Pressure 153/71 H 156/71 H 148/69 H Pulse Oximetry 97 97 96 09/05/17 19:00 09/05/17 20:00 09/05/17 20:35 Pulse Rate 85 91 H 85 Respiratory Rate 10 L 21 16 Blood Pressure 151/65 H 143/69 H Pulse Oximetry 97 92 L 09/05/17 20:36 09/05/17 21:00 09/05/17 21:55 Pulse Rate 86 Respiratory Rate 15 23 Blood Pressure 132/58 L Pulse Oximetry 98 96 09/05/17 22:00 09/05/17 23:00 09/05/17 23:14 Pulse Rate 90 89 86 Respiratory Rate 14 14 17 Blood Pressure 133/62 137/63 Pulse Oximetry 96 96 09/06/17 00:00 09/06/17 01:00 09/06/17 02:00 Pulse Rate 87 92 H 93 H Respiratory Rate 14 16 16 Blood Pressure 132/60 150/67 H 153/70 H Pulse Oximetry 96 94 L 98 09/06/17 03:00 09/06/17 03:04 09/06/17 04:00 Pulse Rate 92 H 96 H 96 H Respiratory Rate 16 16 42 H Blood Pressure 156/70 H Pulse Oximetry 94 L 97 09/06/17 04:20 09/06/17 04:40 09/06/17 05:00 Pulse Rate 92 H 88 Respiratory Rate 17 18 Blood Pressure 147/69 H Pulse Oximetry 97 99 98 09/06/17 05:27 09/06/17 06:00 09/06/17 07:00 Pulse Rate 92 H 91 H 98 H Respiratory Rate 18 15 18 Blood Pressure 158/73 H 178/88 H 158/82 H Pulse Oximetry 99 91 L 95 09/06/17 08:40 Pulse Rate Respiratory Rate Blood Pressure Pulse Oximetry 98 Intake & Output 09/05/17 09/06/17 09/06/17 18:59 06:59 18:59 Intake Total 1999 / 1999 510 / 510 Output Total 5120 / 5120 192 / 1924 Balance -3120 / -3120 -1415 / -1415 Weight 181.4 kg Intake: IV 50 / 50 150 / 150 Flexbumin 25% Inj 50 ML @ 60 50 / 50 50 / 50 mls/hr IV.SIG Q12H [facility] Rx#: [id number] Rocephin Inj 2,000 MG In NS Inj 100 / 100 100 ML @ 200 mls/hr IV.SIG Q24H [facility] Rx#:[id number] Oral 950 / 950 360 / 360 Anesthesia Amount 500 / 500 Other 500 / 500 Output: Urine 5100 / 5100 192 / 192 Stool 0 / 0 Urine/Stool Mix 0 / 0 Estimated Blood Loss 20 / 20 Other: Post Void Residual 0 # Incontinent Voids 0 # Urine Diapers 0 Date of Last Bowel Movement 09/03/17 09/03/17 # Bowel Movements 0 - Constitutional no acute distress, morbidly obese - Routine HEENT Exam Head: Present: normocephalic ENT: Present: mucous membranes moist - Routine Neck Exam Present: supple. Absent: JVD - Routine Respiratory Exam Present: decreased breath sounds. Absent: rales, rhonchi - Routine Cardiovascular Exam Present: RRR - Routine Abdominal Exam Present: soft, normoactive bowel sounds. Absent: tenderness Comments: large - Routine Exam Scrotal: Present: swelling - Routine Extremities Exam Present: edema - Routine Skin Exam Present: dry, warm - Routine Neurological Exam lethargic <Beth Bolanos - Last Filed: 09/06/17 08:53> Vital signs: Vital Signs 09/07/17 12:00 09/07/17 13:00 09/07/17 14:00 Temperature 98.4 F Pulse Rate 83 88 80 Respiratory Rate 13 44 H 14 Blood Pressure 141/68 H 145/67 H 141/76 H Pulse Oximetry 96 96 97 09/07/17 14:01 09/07/17 16:00 09/07/17 17:05 Temperature 98.5 F Pulse Rate 80 91 H 85 Respiratory Rate 15 17 15 Blood Pressure 173/85 H Pulse Oximetry 97 09/07/17 18:00 09/07/17 19:50 09/07/17 19:53 Temperature Pulse Rate 97 H 89 Respiratory Rate 17 Blood Pressure Pulse Oximetry 98 09/07/17 20:00 09/07/17 22:00 09/07/17 23:29 Temperature 98.8 F Pulse Rate 91 H 106 H 105 H Respiratory Rate 14 24 Blood Pressure 165/74 H Pulse Oximetry 95 09/08/17 00:00 09/08/17 02:00 09/08/17 03:07 Temperature 98.2 F Pulse Rate 98 H 101 H 101 H Respiratory Rate 18 17 Blood Pressure 165/78 H Pulse Oximetry 94 L 09/08/17 04:00 09/08/17 06:00 09/08/17 08:00 Temperature 98.2 F 99.1 F Pulse Rate 104 H 92 H 81 Respiratory Rate 17 22 Blood Pressure 146/66 H 124/62 Pulse Oximetry 97 98 09/08/17 08:49 09/08/17 10:00 09/08/17 11:18 Temperature 99.3 F Pulse Rate 95 H 79 84 Respiratory Rate 23 13 Blood Pressure 116/62 Pulse Oximetry 97 98 Intake & Output 09/07/17 09/08/17 09/08/17 18:59 06:59 18:59 Intake Total 1300 / 1300 500 / 500 Output Total 2950 / 2950 4100 / 4100 Balance -1650 / -1650 -3600 / -3600 Weight 181.4 kg Intake: IV 150 / 150 200 / 200 Flexbumin 25% Inj 50 ML @ 60 50 / 50 100 / 100 mls/hr IV.SIG Q12H [facility] Rx#: [id number] Rocephin Inj 2,000 MG In NS Inj 100 / 100 100 / 100 100 ML @ 200 mls/hr IV.SIG Q24H [facility] Rx#:[id number] Oral 1150 / 1150 300 / 300 Output: Urine 2950 / 2950 4100 / 4100 Other: Date of Last Bowel Movement 09/03/17 09/07/17 09/07/17 # Bowel Movements 0 <Dash Steele - Last Filed: 09/08/17 11:28> Assessment and Plan - Assessment (1) Anasarca Code(s): R60.1 - Generalized edema Status: Acute Plan: Significant edema and anasarca. Urinalysis with significant protein on losartan Renal ultrasound: Limited exam of the kidneys secondary to the patient's body habitus. Creatinine stable with diuresis with a creatinine at 1.32 from 1.26 UOP 7L/24 hours Continue lasix to 80 mg TID and albumin, slight increase in creatinine will continue to monitor 24 hour urine with over 5 Grams of protein which is a increase, will need kidney biopsy when stable Will order CARLOZ, ANCA, C3, and C4 Will monitor the urine output and BUN and creatinine closely Renal panel ins am (2) Diabetes Code(s): E11.9 - Type 2 diabetes mellitus without complications Status: Chronic Qualifiers: Diabetes mellitus type: type 2 Plan: Maintain blood sugar 140mg/dl- 180mg/dl (3) HTN (hypertension) Code(s): I10 - Essential (primary) hypertension Status: Chronic Plan: Will continue to monitor <Beth Bolanos - Last Filed: 09/06/17 08:53> - Assessment (1) Anasarca Code(s): R60.1 - Generalized edema Status: Acute (2) Diabetes Code(s): E11.9 - Type 2 diabetes mellitus without complications Status: Chronic (3) HTN (hypertension) Code(s): I10 - Essential (primary) hypertension Status: Chronic - Plan Patient seen and examined, agree with above. Continue Lasix and Albumin, 24 hr. urine collection in progress. <Dash Steele - Last Filed: 09/08/17 11:28>
[2017-09-06] MEDS: Glimepiride 2 MG Tablet PO SCH ×2 (09:13→19:47)
[2017-09-06] MEDS: hydrALAZINE 25 MG Tablet PO SCH ×3 (09:14→19:45)
[2017-09-06] MEDS: Insulin NovoLOG Aspart Correctional Sugar Inj SQ SCH ×2 (09:14→20:59)
[2017-09-06] MEDS: Nystatin Liq 500,000 UNIT/5 ML UDC SWISH-SWAL SCH ×4 (09:15→20:52)
[2017-09-06] MEDS: Carvedilol 12.5 MG Tablet PO SCH ×2 (09:15→20:53)
[2017-09-06] MEDS: Allopurinol 100 MG Tablet PO SCH (09:15)
[2017-09-06] MEDS: Heparin Central Flush 100 UNIT/ML 5 ML Vial IV.FLUSH SCH (09:16)
[2017-09-06] MEDS: Albumin Human 25% Inj 50 ML IV.SIG SCH ×2 (13:31→23:50)
--- NOTE | 2017-09-06 18:26 | P.PNIM ---
Subjective Interval history: Pt c/o continued swelling in abdomen, scrotum, low back. Pt c/o SOB worse with minimal exertion. Nursing staff reports approximately 3L diuresis for last 12 hours. Physical Exam Vital signs: Vital Signs 09/05/17 19:00 09/05/17 20:00 09/05/17 20:35 Pulse Rate 85 91 H 85 Respiratory Rate 10 L 21 16 Blood Pressure 151/65 H 143/69 H Pulse Oximetry 97 92 L 09/05/17 20:36 09/05/17 21:00 09/05/17 21:55 Pulse Rate 86 Respiratory Rate 15 23 Blood Pressure 132/58 L Pulse Oximetry 98 96 09/05/17 22:00 09/05/17 23:00 09/05/17 23:14 Pulse Rate 90 89 86 Respiratory Rate 14 14 17 Blood Pressure 133/62 137/63 Pulse Oximetry 96 96 09/06/17 00:00 09/06/17 01:00 09/06/17 02:00 Pulse Rate 87 92 H 93 H Respiratory Rate 14 16 16 Blood Pressure 132/60 150/67 H 153/70 H Pulse Oximetry 96 94 L 98 09/06/17 03:00 09/06/17 03:04 09/06/17 04:00 Pulse Rate 92 H 96 H 96 H Respiratory Rate 16 16 42 H Blood Pressure 156/70 H Pulse Oximetry 94 L 97 09/06/17 04:20 09/06/17 04:40 09/06/17 05:00 Pulse Rate 92 H 88 Respiratory Rate 17 18 Blood Pressure 147/69 H Pulse Oximetry 97 99 98 09/06/17 05:27 09/06/17 06:00 09/06/17 07:00 Pulse Rate 92 H 91 H 98 H Respiratory Rate 18 15 18 Blood Pressure 158/73 H 178/88 H 158/82 H Pulse Oximetry 99 91 L 95 09/06/17 08:00 09/06/17 08:40 09/06/17 10:00 Pulse Rate 91 H 89 Respiratory Rate Blood Pressure Pulse Oximetry 98 Intake & Output 09/05/17 09/06/17 09/06/17 18:59 06:59 18:59 Intake Total 1999 510 / 510 Output Total 5120 / 5120 1925 / 1925 Balance -3120 / -3120 -1415 / -1415 Weight 181.4 kg Intake: IV 50 / 50 150 / 150 Flexbumin 25% Inj 50 ML @ 60 50 / 50 50 / 50 mls/hr IV.SIG Q12H [facility] Rx#: [id number] Rocephin Inj 2,000 MG In NS Inj 100 / 100 100 ML @ 200 mls/hr IV.SIG Q24H [facility] Rx#:[id number] Oral 950 / 950 360 / 360 Anesthesia Amount 500 / 500 Other 500 / 500 Output: Urine 5100 / 5100 1925 / 1925 Stool 0 / 0 Urine/Stool Mix 0 / 0 Estimated Blood Loss Other: Post Void Residual 0 # Incontinent Voids 0 # Urine Diapers 0 Date of Last Bowel Movement 09/03/17 09/03/17 09/03/17 # Bowel Movements 0 Narrative: General: NAD, AAOx3 Cardiac: regular Chest: CTA bilaterally Abd: +BS, soft, distended, obese, nontender Ext: Anasarca flanks/lower ext/scrotum, right leg splinted Results - Labs CBC & Chem 7: 09/09/17 12:19 09/08/17 03:45 Laboratory Results - last 24 hr 09/05/17 09/05/17 09/06/17 07:15 21:41 03:25 WBC 5.2 RBC 2.97 L Hgb 7.7 L Hct 23.9 L MCV 80.5 MCH 26.1 L MCHC 32.4 RDW 15.5 Plt Count 228 MPV 6.6 L Neut % (Auto) 63.7 Lymph % (Auto) 16.8 [place] % (Auto) 16.1 H Eos % (Auto) 2.3 Baso % (Auto) 1.1 Neut # (Auto) 3.3 Lymph # (Auto) 0.9 L [place] # (Auto) 0.8 Eos # (Auto) 0.1 Baso # (Auto) 0.1 WBC Differential . Differential Comment Auto diff final Sodium Potassium Chloride Carbon Dioxide Anion Gap BUN Creatinine Estimated GFR POC Glucose 168 H Random Glucose Calcium Ur 24 Hour Volume 5050 Ur Total Protein 24 Hr 5146 H 09/06/17 09/06/17 09/06/17 03:25 09:00 13:30 WBC RBC Hgb Hct MCV MCH MCHC RDW Plt Count MPV Neut % (Auto) Lymph % (Auto) [place] % (Auto) Eos % (Auto) Baso % (Auto) Neut # (Auto) Lymph # (Auto) [place] # (Auto) Eos # (Auto) Baso # (Auto) WBC Differential Differential Comment Sodium 139 Potassium 4.9 Chloride 98 Carbon Dioxide 35.9 H Anion Gap 5 BUN 28 H Creatinine 1.32 H Estimated GFR 58 L POC Glucose 125 H 171 H Random Glucose 128 H Calcium 8.3 L Ur 24 Hour Volume Ur Total Protein 24 Hr - Imaging Impressions Chest X-Ray 09/06/17 07:00 CONCLUSION: Mild congestive heart failure. - Procedures Right posterior Achilles incision and drainage 08/24/[address] Hull Assessment and Plan - Assessment (1) Rupture of right Achilles tendon Code(s): S86.011A - Strain of right Achilles tendon, initial encounter Status : Acute Plan: Open Achilles rupture, right - Recent admission with Achilles rupture - Pt underwent open repair of right Achilles tendon rupture with flexor hallucis longus tendon transfer and gastrocnemius recession, right lower extremity on 07/24/[address] Murillo. - Per podiatry, pt will need to be strict non-weight bearing for 6-8 weeks. - Pt was noted to have increased swelling and pain in the RLE on 08/04 - LE Doppler US (08/04) --> Is negative for DVT - Refused dc to snf and was noncompliant with weight bearing instructions. - Pt was readmitted with infection at operative site on 08/16 - He was seen by podiatry in clinic on 08/16 and sent to ED - MRI right ankle (08/16): 1. Postoperative change at the distal Achilles and calcaneus. Increased signal within the posterior calcaneus can all be consistent with postoperative change. It would be difficult to rule out osteomyelitis. 2. Fluid seen around the Achilles tendon. More superiorly in the mid lower leg, there is a larger fluid collection with peripheral enhancement. There is also a thinner fluid collection seen more superiorly in the proximal lower leg around the lateral aspect of the soleus muscle. These fluid collections could be postoperative seromas. An abscess could have a similar appearance. - vanco and Zosyn (08/17) - Rocephin (08/17 - present) - Comgmt with ID & Podiatry - Pt had a previous outpt culture taken on 08/11 which grew out Enterobacter cloacae - Right posterior Achilles incision and drainage 08/24/[address] Hull - Intraoperative wound Cx (08/24) --> Enterobacter cloacae - Plan to DC to SNF/rehab following hospitalization to ensure non-weight bearing of RLE and good recovery. Pt at risk for Right BKA. - The case was discussed with [facility]. Copay for SNF was defaulted. CM consulted. Pt agreeable for SNF but need to get accepting facility - Pt not ready for dc yet - Discussed dc abx with ID. orders written Volume overload Anasarca/edema - Pt was moved to ICU after Halicat and hypoxia on 08/31. Pt had received small dose of morphine a few hrs before the event. He was refusing bipap but now agreeable. Pt being followed by Dr Sawyer. - He continues with severe anasarca/lower ext edema and scrotal swelling. Also he has sleep apnea/hypoventilation and has hypoalbuminemia. - Procardia lowered to 30mg BID on 08/31, BP is stable. - Had right heart cath on last admission revealing increased right heart pressure. He has also some mild systolic dysfunction with EF 45% - Nephrology was consulted for evaluation of massive volume overload. - Pt was on Bumex gtt and diuresed 25L with about 20L negative balance. This was held when cr trended up, but now back on IV Lasix per renal. - despite high dose IV lasix, pt remains significantly volume overloaded - will resume bumex gtt, low dose - repeat BMP Mag in AM - restrict fluids to 1.5 liters daily - Cont. to observe and once fluid issue stable will dc to SNF - DVT prophylaxis Obesity hypoventilation syndrome Hypercapnic respiratory insufficiency Obesity hypoventilation syndrome COPD - 2-D echocardiogram 07/23/17: - The left ventricular systolic function is mildly reduced with an estimated ejection fraction in the range of 45- 50%. - Mild infero-posterior hypokinesis - Mild concentric left ventricular hypertrophy. - The left atrial size is moderately dilated. - RHC completed (07/28) --> Class 2 Pulm HTN, PCW 23 - No Right heart strain, so sildenafil was stopped - Pt is noncompliant with CPAP COPD (chronic obstructive pulmonary disease) - chronic does not appear to be in acute exacerbation - Pt requiring 3-4L of supplemental O2 - Repeat CXR in AM Diabetes - Cont OHA and SSI. - Titrate as needed HTN (hypertension) - cont current BP meds, Cozaar 50mg q12H, Hydralazine 50mg TID, Coreg 25mg BID - May try to lower or stop Procardia. - Hydralazine PO PRN Anemia - Pts H/H has slowly been declining. No noted active GIB - iron deficiency anemia - Hg 8.7 (08/16) - During the last admission the pt was transfused with 2 units PRBCs (08/10) - During recent admission pt underwent evaluation with EGD/Colonoscopy (08/11/17 ) with Dr. Mccormick - int/ext hemorrhoids - sigmoid diverticulosis - esophagitis - gastric biopsies taken, results pending - Repeat labs on 08/21/17 with Hgb 8.3/Hct 24.6 -> 7.7/23.5 (08/24) -> 7.8/24.2, 7.6 (08/27), 8.5 (08/28) - Iron studies 08/08/17 Iron 26, TIBC 244, % saturation 10.7, ferritin 246 - ferritin 154 (08/27), retic 82 (08/27); b12 515, folate 7.9 (08/26) - case informally d/w Hematology - since ferritin > 100, unlikely d/t ANAHI - Hg improved following transfusion of 2 units PRBCs (08/27/17) - Check labs on 09/06 CAD (coronary artery disease) Recent history of pulmonary embolism - Patient had a PE approximately 8 months ago and was on Coumadin for until the cardiac cauterization 06/17/17 - Patient with recent cardiac catheterization with PCI 06/17/17 - After catheterization patient's Coumadin was DC'd and he was started on Aspirin and Plavix - Continue patient's Aspirin 81 mg daily, Plavix 75 mg PO daily, Atorvastatin 40 mg PO QHS and Coreg BID Anxiety and depression - Cont. Paxil 20mg daily - Plan Patient examined. Assessment and plan formulated with Sally Mathias PA-C. I agree with the above. (1) Rupture of right Achilles tendon Qualifiers: Encounter type: subsequent encounter Qualified Code(s): S86.011D - Strain of right Achilles tendon, subsequent encounter
[2017-09-06] MEDS: Senna/Docusate Sodium 8.6/50 MG Tablet PO SCH ×2 (19:47→20:53)
--- NOTE | 2017-09-06 20:21 | P.PNPL ---
Subjective Interval history: 47 YOWM with Achelis tendon repair,JUDY,COPD Has huge scrotal swelling Diureasing Used CPAP last night Up in chair Started Back on Bumex drip Physical Exam Vital signs: Vital Signs 09/05/17 20:35 09/05/17 20:36 09/05/17 21:00 Pulse Rate 85 86 Respiratory Rate 16 15 Blood Pressure 132/58 L Pulse Oximetry 98 96 09/05/17 21:55 09/05/17 22:00 09/05/17 23:00 Pulse Rate 90 89 Respiratory Rate 23 14 14 Blood Pressure 133/62 137/63 Pulse Oximetry 96 96 09/05/17 23:14 09/06/17 00:00 09/06/17 01:00 Pulse Rate 86 87 92 H Respiratory Rate 17 14 16 Blood Pressure 132/60 150/67 H Pulse Oximetry 96 94 L 09/06/17 02:00 09/06/17 03:00 09/06/17 03:04 Pulse Rate 93 H 92 H 96 H Respiratory Rate 16 16 16 Blood Pressure 153/70 H 156/70 H Pulse Oximetry 98 94 L 09/06/17 04:00 09/06/17 04:20 09/06/17 04:40 Pulse Rate 96 H 92 H Respiratory Rate 42 H 17 Blood Pressure 147/69 H Pulse Oximetry 97 97 99 09/06/17 05:00 09/06/17 05:27 09/06/17 06:00 Pulse Rate 88 92 H 91 H Respiratory Rate 18 18 15 Blood Pressure 158/73 H 178/88 H Pulse Oximetry 98 99 91 L 09/06/17 07:00 09/06/17 08:00 09/06/17 08:40 Pulse Rate 98 H 91 H Respiratory Rate 18 Blood Pressure 158/82 H Pulse Oximetry 95 98 09/06/17 10:00 09/06/17 19:39 Pulse Rate 89 96 H Respiratory Rate 17 Blood Pressure Pulse Oximetry 96 Intake & Output 09/06/17 09/06/17 09/07/17 06:59 18:59 06:59 Intake Total 510 / 510 Output Total 1925 / 1925 Balance -1415 / -1415 Weight 181.4 kg Intake: IV 150 / 150 Flexbumin 25% Inj 50 ML @ 60 50 / 50 mls/hr IV.SIG Q12H [facility] Rx#: [id number] Rocephin Inj 2,000 MG In NS Inj 100 / 100 100 ML @ 200 mls/hr IV.SIG Q24H [facility] Rx#:[id number] Oral 360 / 360 Output: Urine 1924 / 1924 Other: Date of Last Bowel Movement 09/03/17 09/03/17 # Bowel Movements 0 GENERAL: Obese WM,Mild SOB SKIN: Warm and dry. HEAD: Normocephalic. EYES: No scleral icterus. No injection or drainage. NECK: Supple, trachea midline. No JVD or lymphadenopathy. CARDIOVASCULAR: Regular rate and rhythm without murmurs, gallops, or rubs. RESPIRATORY: Breath sounds equal bilaterally. No accessory muscle use. GASTROINTESTINAL: Abdomen soft, non-tender, nondistended. MUSCULOSKELETAL: No cyanosis, ++ edema. BACK: Nontender without obvious deformity. No CVA tenderness. Assessment and Plan - Plan IMPRESSION: 1. Hypercapnic respiratory insufficiency. 2. Chronic obstructive pulmonary disease. 3. Obstructive sleep apnea. 4. Achilles tendon repair and leg infection. 5. Diabetes mellitus. 5. Scrotal edema. PLAN: Aerosol nebs Supplement 02 CPAP at night Cont Abx SQ Lovenox Diurease Saline NS DW pt and his
[2017-09-06] MEDS: Bumetanide Inj 25 MG/100 ML BAG IV.CONT SCH (20:55)
[2017-09-06] MEDS: Sodium Chloride 0.65% Nasal Spray 45 ML Bottle EACH NARE SCH (20:55)
[2017-09-06] MEDS: Enoxaparin Inj 40 MG/0.4 ML Syringe SQ SCH (23:51)
[2017-09-07] MEDS: Sodium Chloride 0.65% Nasal Spray 45 ML Bottle EACH NARE SCH ×4 (03:00→20:27)
[2017-09-07] MEDS: LORazepam 0.5 MG Tablet PO PRN ×3 (04:02→22:34)
[2017-09-07 04:53] LABS: Calcium 8.6 mg/dL (8.5-10.1); Carbon Dioxide 36.1 meq/L (21.0-32.0); Magnesium 1.7 mg/dL (1.5-2.5); Phosphorus 4.4 mg/dL (2.5-4.9); Potassium 4.7 meq/L (3.5-5.1)
[2017-09-07] MEDS: Gabapentin 300 MG Capsule PO SCH ×3 (06:20→21:34)
[2017-09-07] MEDS: Nystatin Liq 500,000 UNIT/5 ML UDC SWISH-SWAL SCH ×4 (08:10→20:27)
[2017-09-07] MEDS: Allopurinol 100 MG Tablet PO SCH (08:12)
[2017-09-07] MEDS: Senna/Docusate Sodium 8.6/50 MG Tablet PO SCH ×2 (08:12→20:27)
[2017-09-07] MEDS: Carvedilol 12.5 MG Tablet PO SCH ×2 (08:14→20:26)
[2017-09-07] MEDS: hydrALAZINE 25 MG Tablet PO SCH ×3 (08:14→18:22)
[2017-09-07] MEDS: Glimepiride 2 MG Tablet PO SCH ×2 (08:16→16:29)
[2017-09-07] MEDS: Heparin Central Flush 100 UNIT/ML 5 ML Vial IV.FLUSH SCH (08:16)
--- NOTE | 2017-09-07 09:41 | P.PNNP ---
Subjective Interval history: More awake today. Creatinine is stable at 1.38. Lasix has been changed to Bumex gtt. Shortness of breath on exertion only, has increased anxiety. Swelling is improving. <Beth Bolanos - Last Filed: 09/07/17 09:32> Physical Exam Vital signs: Vital Signs 09/06/17 10:00 09/06/17 11:00 09/06/17 12:00 Temperature Pulse Rate 89 80 80 Respiratory Rate 15 17 14 Blood Pressure 159/72 H 160/73 H 151/70 H Pulse Oximetry 93 L 97 96 09/06/17 13:00 09/06/17 14:00 09/06/17 15:00 Temperature Pulse Rate 81 93 H 84 Respiratory Rate 16 15 15 Blood Pressure 147/80 H 145/92 H Pulse Oximetry 94 L 97 96 09/06/17 16:00 09/06/17 17:00 09/06/17 18:00 Temperature Pulse Rate 92 H 87 93 H Respiratory Rate 27 H 15 15 Blood Pressure 182/89 H 159/73 H 162/74 H Pulse Oximetry 95 96 95 09/06/17 19:00 09/06/17 19:01 09/06/17 19:39 Temperature Pulse Rate 93 H 92 H 96 H Respiratory Rate 25 H 17 17 Blood Pressure 172/72 H Pulse Oximetry 93 L 95 96 09/06/17 20:00 09/06/17 22:00 09/06/17 23:14 Temperature Pulse Rate 92 H 86 86 Respiratory Rate 19 17 Blood Pressure 149/69 H Pulse Oximetry 94 L 09/07/17 00:00 09/07/17 02:00 09/07/17 03:28 Temperature 98.3 F Pulse Rate 85 86 84 Respiratory Rate 14 14 Blood Pressure 169/82 H Pulse Oximetry 96 09/07/17 04:00 09/07/17 05:32 09/07/17 06:00 Temperature 98.2 F Pulse Rate 85 81 Respiratory Rate 15 Blood Pressure 144/67 H Pulse Oximetry 95 97 Intake & Output 09/06/17 09/07/17 09/07/17 18:59 06:59 18:59 Intake Total 1250 / 1250 290 / 290 Output Total 2850 / 2850 2024 Balance -1600 / -1600 -1735 / -1735 Weight 181.4 kg Intake: IV 50 / 50 Flexbumin 25% Inj 50 ML @ 60 50 / 50 mls/hr IV.SIG Q12H [facility] Rx#: [id number] Oral 1250 / 1250 240 / 240 Output: Urine 2850 / 2850 2024 Other: Date of Last Bowel Movement 09/03/17 09/03/17 # Bowel Movements 0 - Constitutional no acute distress - Routine HEENT Exam Head: Present: normocephalic ENT: Present: mucous membranes moist - Routine Neck Exam Present: supple - Routine Respiratory Exam Present: decreased breath sounds. Absent: rales, rhonchi - Routine Cardiovascular Exam Present: RRR. Absent: murmur - Routine Abdominal Exam Present: soft, normoactive bowel sounds - Routine Exam Scrotal: Present: swelling - Routine Extremities Exam Present: edema - Routine Skin Exam Present: dry, warm - Routine Neurological Exam Present: alert, oriented X3 - Routine Psychiatric Exam Present: cooperative <Beth Bolanos - Last Filed: 09/07/17 09:32> Vital signs: Vital Signs 09/07/17 12:00 09/07/17 13:00 09/07/17 14:00 Temperature 98.4 F Pulse Rate 83 88 80 Respiratory Rate 13 44 H 14 Blood Pressure 141/68 H 145/67 H 141/76 H Pulse Oximetry 96 96 97 09/07/17 14:01 09/07/17 16:00 09/07/17 17:05 Temperature 98.5 F Pulse Rate 80 91 H 85 Respiratory Rate 15 17 15 Blood Pressure 173/85 H Pulse Oximetry 97 09/07/17 18:00 09/07/17 19:50 09/07/17 19:53 Temperature Pulse Rate 97 H 89 Respiratory Rate 17 Blood Pressure Pulse Oximetry 98 09/07/17 20:00 09/07/17 22:00 09/07/17 23:29 Temperature 98.8 F Pulse Rate 91 H 106 H 105 H Respiratory Rate 14 24 Blood Pressure 165/74 H Pulse Oximetry 95 09/08/17 00:00 09/08/17 02:00 09/08/17 03:07 Temperature 98.2 F Pulse Rate 98 H 101 H 101 H Respiratory Rate 18 17 Blood Pressure 165/78 H Pulse Oximetry 94 L 09/08/17 04:00 09/08/17 06:00 09/08/17 08:00 Temperature 98.2 F 99.1 F Pulse Rate 104 H 92 H 81 Respiratory Rate 17 22 Blood Pressure 146/66 H 124/62 Pulse Oximetry 97 98 09/08/17 08:49 09/08/17 10:00 09/08/17 11:18 Temperature 99.3 F Pulse Rate 95 H 79 84 Respiratory Rate 23 13 Blood Pressure 116/62 Pulse Oximetry 97 98 Intake & Output 09/07/17 09/08/17 09/08/17 18:59 06:59 18:59 Intake Total 1300 / 1300 500 / 500 Output Total 2950 / 2950 4100 / 4100 Balance -1650 / -1650 -3600 / -3600 Weight 181.4 kg Intake: IV 150 / 150 200 / 200 Flexbumin 25% Inj 50 ML @ 60 50 / 50 100 / 100 mls/hr IV.SIG Q12H [facility] Rx#: [id number] Rocephin Inj 2,000 MG In NS Inj 100 / 100 100 / 100 100 ML @ 200 mls/hr IV.SIG Q24H [facility] Rx#:[id number] Oral 1150 / 1150 300 / 300 Output: Urine 2950 / 2950 4100 / 4100 Other: Date of Last Bowel Movement 09/03/17 09/07/17 09/07/17 # Bowel Movements 0 <Leatha Steele Q - Last Filed: 09/08/17 11:40> Assessment and Plan - Assessment (1) Anasarca Code(s): R60.1 - Generalized edema Status: Acute Plan: Significant edema and anasarca. Urinalysis with significant protein on losartan 24 hour urine with over 5 Grams of protein which is a increase Will need kidney biopsy when stable possible has FSGS Renal ultrasound: Limited exam of the kidneys secondary to the patient's body habitus. Creatinine stable with diuresis with a creatinine at 1.32 -> 1.36 UOP 5.5L/24 hours Lasix changed to bumex gtt at 0.25mg/hr, continue albumin as level is still low CARLOZ and ANCA- pending C3 and C4 normal Will monitor the urine output and BUN and creatinine closely (2) Diabetes Code(s): E11.9 - Type 2 diabetes mellitus without complications Status: Chronic Qualifiers: Diabetes mellitus type: type 2 Plan: Maintain blood sugar 140mg/dl- 180mg/dl (3) HTN (hypertension) Code(s): I10 - Essential (primary) hypertension Status: Chronic Plan: Will continue to monitor <Beth Bolanos - Last Filed: 09/07/17 09:32> - Assessment (1) Anasarca Code(s): R60.1 - Generalized edema Status: Acute (2) Diabetes Code(s): E11.9 - Type 2 diabetes mellitus without complications Status: Chronic Qualifiers: Diabetes mellitus type: type 2 (3) HTN (hypertension) Code(s): I10 - Essential (primary) hypertension Status: Chronic - Attending Attestation Patient seen and examined, agree with above. Now on Bumex infusion. Creatinine is stable, edema slowly improving. <Dash Steele - Last Filed: 09/08/17 11:40>
[2017-09-07] MEDS: Insulin NovoLOG Aspart Correctional Sugar Inj SQ SCH ×6 (10:19→20:28)
[2017-09-07] MEDS: Albumin Human 25% Inj 50 ML IV.SIG SCH ×2 (12:08→22:09)
--- NOTE | 2017-09-07 18:13 | P.PNIM ---
Subjective Interval history: Patient reports abd, scrotal and BLE edema has improved a little Patient has put out 2950 ml of urine in the past 12 hours Physical Exam Vital signs: Vital Signs 09/06/17 19:00 09/06/17 19:01 09/06/17 19:39 Temperature Pulse Rate 93 H 92 H 96 H Respiratory Rate 25 H 17 17 Blood Pressure 172/72 H Pulse Oximetry 93 L 95 96 09/06/17 20:00 09/06/17 22:00 09/06/17 23:14 Temperature Pulse Rate 92 H 86 86 Respiratory Rate 19 17 Blood Pressure 149/69 H Pulse Oximetry 94 L 09/07/17 00:00 09/07/17 02:00 09/07/17 03:28 Temperature 98.3 F Pulse Rate 85 86 84 Respiratory Rate 14 14 Blood Pressure 169/82 H Pulse Oximetry 96 09/07/17 04:00 09/07/17 05:32 09/07/17 06:00 Temperature 98.2 F Pulse Rate 85 81 Respiratory Rate 15 Blood Pressure 144/67 H Pulse Oximetry 95 97 09/07/17 07:00 09/07/17 08:00 09/07/17 09:24 Temperature 98.2 F Pulse Rate 97 H 89 Respiratory Rate 29 H Blood Pressure 149/73 H Pulse Oximetry 94 L 92 L 09/07/17 09:26 09/07/17 09:30 09/07/17 10:00 Temperature Pulse Rate 85 80 79 Respiratory Rate 15 21 16 Blood Pressure 130/64 148/67 H Pulse Oximetry 100 96 09/07/17 11:00 09/07/17 12:00 09/07/17 13:00 Temperature 98.4 F Pulse Rate 82 83 88 Respiratory Rate 15 13 44 H Blood Pressure 141/67 H 141/68 H 145/67 H Pulse Oximetry 97 96 96 09/07/17 14:00 09/07/17 14:01 09/07/17 17:05 Temperature Pulse Rate 80 80 85 Respiratory Rate 14 15 15 Blood Pressure 141/76 H Pulse Oximetry 97 Intake & Output 09/06/17 09/07/17 09/07/17 18:59 06:59 18:59 Intake Total 1250 / 1250 290 / 290 150 / 150 Output Total 2850 / 2850 2024 / 2024 Balance -1600 / -1600 -1735 / -1735 150 / 150 Weight 181.4 kg Intake: IV 50 / 50 150 / 150 Flexbumin 25% Inj 50 ML @ 60 50 / 50 50 / 50 mls/hr IV.SIG Q12H [facility] Rx#: [id number] Rocephin Inj 2,000 MG In NS Inj 100 / 100 100 ML @ 200 mls/hr IV.SIG Q24H [facility] Rx#:[id number] Oral 1250 / 1250 240 / 240 Output: Urine 2850 / 2850 2024 Other: Date of Last Bowel Movement 09/03/17 09/03/17 09/03/17 # Bowel Movements 0 Narrative: General: NAD, AAOx3 Cardiac: regular Chest: CTA bilaterally Abd: +BS, soft, distended, obese, nontender Ext: Anasarca flanks/lower ext/scrotum, right leg splinted Results - Labs CBC & Chem 7: 09/09/17 12:19 09/08/17 03:45 Laboratory Results - last 24 hr 09/06/17 09/07/17 09/07/17 20:41 03:45 03:45 Sodium 138 Potassium 4.7 Chloride 98 Carbon Dioxide 36.1 H Anion Gap 4 L BUN 28 H Creatinine 1.38 H Estimated GFR 55 L POC Glucose 332 H Random Glucose 161 H Calcium 8.6 Phosphorus 4.4 Magnesium 1.7 Albumin 3.0 L CARLOZ Screen Neg Complement C3 114 Complement C4 25 09/07/17 11:55 Sodium Potassium Chloride Carbon Dioxide Anion Gap BUN Creatinine Estimated GFR POC Glucose 179 H Random Glucose Calcium Phosphorus Magnesium Albumin CARLOZ Screen Complement C3 Complement C4 Microbiology 08/24/17 15:00 Tissue - Ankle Fungal Smear - Final No fungal elements seen 08/24/17 15:00 Tissue - Ankle Fungal Culture - Preliminary No growth in 2 weeks 08/24/17 15:00 Tissue - Ankle Acid Fast Bacilli Smear - Final No acid fast bacilli seen 08/24/17 15:00 Tissue - Ankle Mycobacterial Culture - Preliminary No growth in 2 weeks - Procedures Right posterior Achilles incision and drainage 08/24/[address] Hull Assessment and Plan - Assessment (1) Rupture of right Achilles tendon Code(s): S86.011A - Strain of right Achilles tendon, initial encounter Status : Acute Plan: Open Achilles rupture, right - Recent admission with Achilles rupture - Pt underwent open repair of right Achilles tendon rupture with flexor hallucis longus tendon transfer and gastrocnemius recession, right lower extremity on 07/24/[address] Murillo. - Per podiatry, pt will need to be strict non-weight bearing for 6-8 weeks. - Pt was noted to have increased swelling and pain in the RLE on 08/04 - LE Doppler US (08/04) --> Is negative for DVT - Refused dc to snf and was noncompliant with weight bearing instructions. - Pt was readmitted with infection at operative site on 08/16 - He was seen by podiatry in clinic on 08/16 and sent to ED - MRI right ankle (08/16): 1. Postoperative change at the distal Achilles and calcaneus. Increased signal within the posterior calcaneus can all be consistent with postoperative change. It would be difficult to rule out osteomyelitis. 2. Fluid seen around the Achilles tendon. More superiorly in the mid lower leg, there is a larger fluid collection with peripheral enhancement. There is also a thinner fluid collection seen more superiorly in the proximal lower leg around the lateral aspect of the soleus muscle. These fluid collections could be postoperative seromas. An abscess could have a similar appearance. - debra and Gen (08/17) - Rocephidenis (08/17 - present) - Comgmt with ID & Podiatry - Pt had a previous outpt culture taken on 08/11 which grew out Enterobacter cloacae - Right posterior Achilles incision and drainage 08/24/[address] Hull - Intraoperative wound Cx (08/24) --> Enterobacter cloacae - Plan to DC to SNF/rehab following hospitalization to ensure non-weight bearing of RLE and good recovery. Pt at risk for Right BKA. - The case was discussed with [facility]. Copay for SNF was defaulted. CM consulted. Pt agreeable for SNF but need to get accepting facility - Pt not ready for dc yet - Discussed dc abx with ID. orders written Volume overload Anasarca/edema - Pt was moved to ICU after Halicat and hypoxia on 08/31. Pt had received small dose of morphine a few hrs before the event. He was refusing bipap but now agreeable. Pt being followed by Dr Sawyer. - He continues with severe anasarca/lower ext edema and scrotal swelling. Also he has sleep apnea/hypoventilation and has hypoalbuminemia. - Procardia lowered to 30mg BID on 08/31, BP is stable. - Had right heart cath on last admission revealing increased right heart pressure. He has also some mild systolic dysfunction with EF 45% - Nephrology was consulted for evaluation of massive volume overload. - Pt was on Bumex gtt and diuresed 25L with about 20L negative balance. This was held when cr trended up, but now back on IV Lasix per renal. - despite high dose IV lasix, pt remains significantly volume overloaded - continue bumex gtt, 0.25 mg/H, 2950ml of urine out in the past 12 hours - creatinine 1.32 -> 1.38(09/07/17) - repeat BMP in AM - restrict fluids to 1.5 liters daily - Cont. to observe and once fluid issue stable will dc to SNF - DVT prophylaxis Obesity hypoventilation syndrome Hypercapnic respiratory insufficiency Obesity hypoventilation syndrome COPD - 2-D echocardiogram 07/23/17: - The left ventricular systolic function is mildly reduced with an estimated ejection fraction in the range of 45- 50%. - Mild infero-posterior hypokinesis - Mild concentric left ventricular hypertrophy. - The left atrial size is moderately dilated. - RHC completed (07/28) --> Class 2 Pulm HTN, PCW 23 - No Right heart strain, so sildenafil was stopped - Pt is noncompliant with CPAP COPD (chronic obstructive pulmonary disease) - chronic does not appear to be in acute exacerbation - Pt requiring 3-4L of supplemental O2 - Repeat CXR in AM Diabetes - Cont OHA and SSI. - Titrate as needed HTN (hypertension) - cont current BP meds, Cozaar 50mg q12H, Hydralazine 50mg TID, Coreg 25mg BID - May try to lower or stop Procardia. - Hydralazine PO PRN Anemia - Pts H/H has slowly been declining. No noted active GIB - iron deficiency anemia - Hg 8.7 (08/16) - During the last admission the pt was transfused with 2 units PRBCs (08/10) - During recent admission pt underwent evaluation with EGD/Colonoscopy (08/11/17 ) with Dr. Mccormick - int/ext hemorrhoids - sigmoid diverticulosis - esophagitis - gastric biopsies taken, results pending - Repeat labs on 08/21/17 with Hgb 8.3/Hct 24.6 -> 7.7/23.5 (7/4) -> 7.8/24.2, 7.6 (08/27), 8.5 (08/28) - Iron studies 08/08/17 Iron 26, TIBC 244, % saturation 10.7, ferritin 246 - ferritin 154 (08/27), retic 82 (/); b12 515, folate 7.9 (08/26) - case informally d/w Hematology - since ferritin > 100, unlikely d/t ANAHI - Hg improved following transfusion of 2 units PRBCs (08/27/17) - Check CBC in AM CAD (coronary artery disease) Recent history of pulmonary embolism - Patient had a PE approximately 8 months ago and was on Coumadin for until the cardiac cauterization 06/17/17 - Patient with recent cardiac catheterization with PCI 06/17/17 - After catheterization patient's Coumadin was DC'd and he was started on Aspirin and Plavix - Continue patient's Aspirin 81 mg daily, Plavix 75 mg PO daily, Atorvastatin 40 mg PO QHS and Coreg BID Anxiety and depression - Cont. Paxil 20mg daily - Attending Attestation Patient examined. Assessment and plan formulated with Sally Mathias PA-C. I agree with the above. (1) Rupture of right Achilles tendon Qualifiers: Encounter type: subsequent encounter Qualified Code(s): S86.011D - Strain of right Achilles tendon, subsequent encounter
[2017-09-07] MEDS: Bumetanide Inj 25 MG/100 ML BAG IV.CONT SCH (20:29)
--- NOTE | 2017-09-07 20:35 | P.PNPL ---
Subjective Interval history: 47 YOWM with Achelis tendon repair,JUDY,COPD Has huge scrotal swelling Diureasing Used CPAP last night Up in chair on Bumex drip Sleeping Physical Exam Vital signs: Vital Signs 09/06/17 22:00 09/06/17 23:14 09/07/17 00:00 Temperature 98.3 F Pulse Rate 86 86 85 Respiratory Rate 17 14 Blood Pressure 169/82 H Pulse Oximetry 96 09/07/17 02:00 09/07/17 03:28 09/07/17 04:00 Temperature 98.2 F Pulse Rate 86 84 85 Respiratory Rate 14 15 Blood Pressure 144/67 H Pulse Oximetry 95 09/07/17 05:32 09/07/17 06:00 09/07/17 07:00 Temperature Pulse Rate 81 Respiratory Rate Blood Pressure Pulse Oximetry 97 94 L 09/07/17 08:00 09/07/17 09:24 09/07/17 09:26 Temperature 98.2 F Pulse Rate 97 H 89 85 Respiratory Rate 29 H 15 Blood Pressure 149/73 H 130/64 Pulse Oximetry 92 L 100 09/07/17 09:30 09/07/17 10:00 09/07/17 11:00 Temperature Pulse Rate 80 79 82 Respiratory Rate 21 16 15 Blood Pressure 148/67 H 141/67 H Pulse Oximetry 96 97 09/07/17 12:00 09/07/17 13:00 09/07/17 14:00 Temperature 98.4 F Pulse Rate 83 88 80 Respiratory Rate 13 44 H 14 Blood Pressure 141/68 H 145/67 H 141/76 H Pulse Oximetry 96 96 97 09/07/17 14:01 09/07/17 16:00 09/07/17 17:05 Temperature 98.5 F Pulse Rate 80 91 H 85 Respiratory Rate 15 17 15 Blood Pressure 173/85 H Pulse Oximetry 97 09/07/17 18:00 09/07/17 19:50 09/07/17 19:53 Temperature Pulse Rate 97 H 89 Respiratory Rate 17 Blood Pressure Pulse Oximetry 98 Intake & Output 09/07/17 09/07/17 09/08/17 06:59 18:59 06:59 Intake Total 290 / 290 1300 / 1300 Output Total 2024 2950 / 2950 Balance -1735 / -1735 -1650 / -1650 Weight 181.4 kg Intake: IV 50 / 50 150 / 150 Flexbumin 25% Inj 50 ML @ 60 50 / 50 50 / 50 mls/hr IV.SIG Q12H [facility] Rx#: [id number] Rocephin Inj 2,000 MG In NS Inj 100 / 100 100 ML @ 200 mls/hr IV.SIG Q24H [facility] Rx#:[id number] Oral 240 / 240 1150 / 1150 Output: Urine 2024 2950 / 2950 Other: Date of Last Bowel Movement 09/03/17 09/03/17 # Bowel Movements 0 GENERAL: Obese WM,NAD SKIN: Warm and dry. HEAD: Normocephalic. EYES: No scleral icterus. No injection or drainage. NECK: Supple, trachea midline. No JVD or lymphadenopathy. CARDIOVASCULAR: Regular rate and rhythm without murmurs, gallops, or rubs. RESPIRATORY: Breath sounds equal bilaterally. No accessory muscle use. GASTROINTESTINAL: Abdomen soft, non-tender, nondistended. MUSCULOSKELETAL: No cyanosis, ++ edema. BACK: Nontender without obvious deformity. No CVA tenderness. Assessment and Plan - Plan IMPRESSION: 1. Hypercapnic respiratory insufficiency. 2. Chronic obstructive pulmonary disease. 3. Obstructive sleep apnea. 4. Achilles tendon repair and leg infection. 5. Diabetes mellitus. 5. Scrotal edema. PLAN: Aerosol nebs Supplement 02 CPAP at night Cont Abx SQ Lovenox Bumex drip Saline Nasal spray DW pt and his
[2017-09-07] MEDS: Enoxaparin Inj 40 MG/0.4 ML Syringe SQ SCH (22:10)
[2017-09-08] MEDS ORDERED: hydrALAZINE HCl Inj 20 MG/ML Vial IV.PUSH SCH (02:15)
[2017-09-08] MEDS: Sodium Chloride 0.65% Nasal Spray 45 ML Bottle EACH NARE SCH ×4 (02:55→20:09)
[2017-09-08 04:11] LABS: Baso % (Auto) 0.8 % (0.0-2.0); Eos # (Auto) 0.1 th/mm3 (0.0-0.4); Hematocrit 24.2 % (39.0-51.0); Hemoglobin 7.9 gm/dL (13.0-17.0); Lymph # (Auto) 0.6 th/mm3 (1.0-4.8); Lymph % (Auto) 9.8 % (9.0-44.0); Mean Corpuscular HGB Conc 32.5 % (32.0-36.0); Mean Corpuscular Hemoglobin 26.2 pg (27.0-34.0); Mean Corpuscular Volume 80.5 fL (80.0-100.0); Mean Platelet Volume 7.1 fL (7.0-11.0); Mono # (Auto) 0.8 th/mm3 (0.0-0.9); Mono % (Auto) 12.9 % (0.0-8.0); Neut % (Auto) 75.5 % (16.0-70.0); Platelet Count 206 th/mm3 (150-450); Red Blood Count 3.01 mil/mm3 (4.50-5.90); Red Cell Distribution Width 15.5 % (11.6-17.2); White Blood Count 6.6 th/mm3 (4.0-11.0)
[2017-09-08 04:37] LABS: Calcium 8.9 mg/dL (8.5-10.1); Carbon Dioxide 36.4 meq/L (21.0-32.0); Magnesium 1.6 mg/dL (1.5-2.5); Potassium 4.8 meq/L (3.5-5.1)
[2017-09-08] MEDS: LORazepam 0.5 MG Tablet PO PRN ×3 (05:21→21:26)
[2017-09-08] MEDS: Gabapentin 300 MG Capsule PO SCH ×3 (05:21→21:26)
[2017-09-08] MEDS: Glimepiride 2 MG Tablet PO SCH ×2 (08:05→17:46)
[2017-09-08] MEDS: Carvedilol 12.5 MG Tablet PO SCH ×2 (08:05→20:00)
[2017-09-08] MEDS: Allopurinol 100 MG Tablet PO SCH (08:05)
[2017-09-08] MEDS: Heparin Central Flush 100 UNIT/ML 5 ML Vial IV.FLUSH SCH (08:05)
[2017-09-08] MEDS: Insulin NovoLOG Aspart Correctional Sugar Inj SQ SCH ×4 (08:06→21:29)
[2017-09-08] MEDS: hydrALAZINE 25 MG Tablet PO SCH ×3 (08:15→17:46)
[2017-09-08] MEDS: Nystatin Liq 500,000 UNIT/5 ML UDC SWISH-SWAL SCH ×4 (08:15→20:00)
[2017-09-08] MEDS: Senna/Docusate Sodium 8.6/50 MG Tablet PO SCH ×2 (08:18→20:00)
--- NOTE | 2017-09-08 10:27 | P.PNNP ---
Subjective Interval history: Lethargic this morning, falling asleep while asking questions. Creatinine has remained stable at 1.31 on bumex gtt. <Beth Bolanos - Last Filed: 09/08/17 10:21> Physical Exam Vital signs: Vital Signs 09/07/17 11:00 09/07/17 12:00 09/07/17 13:00 Temperature 98.4 F Pulse Rate 82 83 88 Respiratory Rate 15 13 44 H Blood Pressure 141/67 H 141/68 H 145/67 H Pulse Oximetry 97 96 96 09/07/17 14:00 09/07/17 14:01 09/07/17 16:00 Temperature 98.5 F Pulse Rate 80 80 91 H Respiratory Rate 14 15 17 Blood Pressure 141/76 H 173/85 H Pulse Oximetry 97 97 09/07/17 17:05 09/07/17 18:00 09/07/17 19:50 Temperature Pulse Rate 85 97 H 89 Respiratory Rate 15 17 Blood Pressure Pulse Oximetry 09/07/17 19:53 09/07/17 20:00 09/07/17 22:00 Temperature 98.8 F Pulse Rate 91 H 106 H Respiratory Rate 14 Blood Pressure 165/74 H Pulse Oximetry 98 95 09/07/17 23:29 09/08/17 00:00 09/08/17 02:00 Temperature 98.2 F Pulse Rate 105 H 98 H 101 H Respiratory Rate 24 18 Blood Pressure 165/78 H Pulse Oximetry 94 L 09/08/17 03:07 09/08/17 04:00 09/08/17 06:00 Temperature 98.2 F Pulse Rate 101 H 104 H 92 H Respiratory Rate 17 17 Blood Pressure 146/66 H Pulse Oximetry 97 09/08/17 08:00 09/08/17 08:49 09/08/17 10:00 Temperature 99.1 F Pulse Rate 81 95 H 79 Respiratory Rate 22 23 Blood Pressure 124/62 Pulse Oximetry 98 97 Intake & Output 09/07/17 09/08/17 09/08/17 18:59 06:59 18:59 Intake Total 1300 / 1300 500 / 500 Output Total 2950 / 2950 4100 / 4100 Balance -1650 / -1650 -3600 / -3600 Weight 181.4 kg Intake: IV 150 / 150 200 / 200 Flexbumin 25% Inj 50 ML @ 60 50 / 50 100 / 100 mls/hr IV.SIG Q12H [facility] Rx#: [id number] Rocephin Inj 2,000 MG In NS Inj 100 / 100 100 / 100 100 ML @ 200 mls/hr IV.SIG Q24H [facility] Rx#:[id number] Oral 1150 / 1150 300 / 300 Output: Urine 2950 / 2950 4100 / 4100 Other: Date of Last Bowel Movement 09/03/17 09/07/17 09/07/17 # Bowel Movements 0 - Constitutional no acute distress - Routine HEENT Exam Head: Present: normocephalic ENT: Present: mucous membranes moist - Routine Neck Exam Present: supple. Absent: JVD - Routine Respiratory Exam Present: decreased breath sounds. Absent: rales, rhonchi - Routine Cardiovascular Exam Present: RRR - Routine Abdominal Exam Present: soft, normoactive bowel sounds - Routine Exam Scrotal: Present: swelling - Routine Extremities Exam Present: edema - Routine Skin Exam Present: dry, warm, wounds - Routine Neurological Exam lethargic <Beth Bolanos - Last Filed: 09/08/17 10:21> Vital signs: Vital Signs 09/29/17 00:00 09/29/17 03:00 09/29/17 04:00 Temperature 97.2 F L 98.2 F Pulse Rate 88 78 Respiratory Rate 18 18 18 Blood Pressure 129/60 132/62 Pulse Oximetry 99 98 09/29/17 08:00 09/29/17 08:39 09/29/17 08:46 Temperature 97.6 F Pulse Rate 85 Respiratory Rate 12 16 Blood Pressure 127/88 Pulse Oximetry 97 95 09/29/17 09:50 09/29/17 11:58 09/29/17 12:00 Temperature 98 F Pulse Rate 92 H Respiratory Rate 14 14 14 Blood Pressure 124/80 Pulse Oximetry 96 09/29/17 16:00 09/29/17 16:30 09/29/17 18:22 Temperature 97.9 F Pulse Rate 85 Respiratory Rate 14 14 Blood Pressure 146/73 H Pulse Oximetry 97 96 09/29/17 20:00 Temperature 97.9 F Pulse Rate 88 Respiratory Rate 20 Blood Pressure 139/76 Pulse Oximetry 97 Intake & Output 09/29/17 09/29/17 09/30/17 06:59 18:59 06:59 Intake Total 1360 / 1360 400 / 400 Output Total 1000 / 1000 900 / 900 Balance 360 / 360 -500 / -500 Weight 181.4 kg Intake: IV 100 / 100 Rocephin Inj 2,000 MG In NS Inj 100 / 100 100 ML @ 200 mls/hr IV.SIG Q24H [facility] Rx#:[id number] Oral 1360 / 1360 300 / 300 Output: Urine 1000 / 1000 900 / 900 Other: Date of Last Bowel Movement 09/27/17 09/27/17 09/28/17 <Dash Steele - Last Filed: 09/29/17 23:13> Assessment and Plan - Assessment (1) Anasarca Code(s): R60.1 - Generalized edema Status: Acute Plan: Significant edema and anasarca. Urinalysis with significant protein on losartan Renal ultrasound: Limited exam of the kidneys secondary to the patient's body habitus. 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, has over 5 grams of protein in 24 hour urine Will monitor the urine output and BUN and creatinine closely (2) Diabetes Code(s): E11.9 - Type 2 diabetes mellitus without complications Status: Chronic Qualifiers: Diabetes mellitus type: type 2 Plan: Maintain blood sugar 140mg/dl- 180mg/dl (3) HTN (hypertension) Code(s): I10 - Essential (primary) hypertension Status: Chronic Plan: Will continue to monitor <Beth Bolanos - Last Filed: 09/08/17 10:21> - Assessment (1) Acute kidney injury superimposed on chronic kidney disease Code(s): N17.9 - Acute kidney failure, unspecified; N18.9 - Chronic kidney disease, unspecified Status: Acute - Attending Attestation Patient seen and examined, agree with above. Continue diuresis, follow BMP. <Dash Steele - Last Filed: 09/29/17 23:13>
--- NOTE | 2017-09-08 11:29 | P.PNIM ---
Subjective Interval history: Patient has put out 7050 ml of urine in the past 24 hours -5250 fluid balance No new concerns/complaints Physical Exam Vital signs: Vital Signs 09/07/17 12:00 09/07/17 13:00 09/07/17 14:00 Temperature 98.4 F Pulse Rate 83 88 80 Respiratory Rate 13 44 H 14 Blood Pressure 141/68 H 145/67 H 141/76 H Pulse Oximetry 96 96 97 09/07/17 14:01 09/07/17 16:00 09/07/17 17:05 Temperature 98.5 F Pulse Rate 80 91 H 85 Respiratory Rate 15 17 15 Blood Pressure 173/85 H Pulse Oximetry 97 09/07/17 18:00 09/07/17 19:50 09/07/17 19:53 Temperature Pulse Rate 97 H 89 Respiratory Rate 17 Blood Pressure Pulse Oximetry 98 09/07/17 20:00 09/07/17 22:00 09/07/17 23:29 Temperature 98.8 F Pulse Rate 91 H 106 H 105 H Respiratory Rate 14 24 Blood Pressure 165/74 H Pulse Oximetry 95 09/08/17 00:00 09/08/17 02:00 09/08/17 03:07 Temperature 98.2 F Pulse Rate 98 H 101 H 101 H Respiratory Rate 18 17 Blood Pressure 165/78 H Pulse Oximetry 94 L 09/08/17 04:00 09/08/17 06:00 09/08/17 08:00 Temperature 98.2 F 99.1 F Pulse Rate 104 H 92 H 81 Respiratory Rate 17 22 Blood Pressure 146/66 H 124/62 Pulse Oximetry 97 98 09/08/17 08:49 09/08/17 10:00 09/08/17 11:18 Temperature 99.3 F Pulse Rate 95 H 79 84 Respiratory Rate 23 13 Blood Pressure 116/62 Pulse Oximetry 97 98 Intake & Output 09/07/17 09/08/17 09/08/17 18:59 06:59 18:59 Intake Total 1300 / 1300 500 / 500 Output Total 2950 / 2950 4100 / 4100 Balance -1650 / -1650 -3600 / -3600 Weight 181.4 kg Intake: IV 150 / 150 200 / 200 Flexbumin 25% Inj 50 ML @ 60 50 / 50 100 / 100 mls/hr IV.SIG Q12H [facility] Rx#: [id number] Rocephin Inj 2,000 MG In NS Inj 100 / 100 100 / 100 100 ML @ 200 mls/hr IV.SIG Q24H [facility] Rx#:[id number] Oral 1150 / 1150 300 / 300 Output: Urine 2950 / 2950 4100 / 4100 Other: Date of Last Bowel Movement 09/03/17 09/07/17 09/07/17 # Bowel Movements 0 Narrative: General: NAD, AAOx3 Cardiac: regular Chest: CTA bilaterally Abd: +BS, soft, distended, obese, nontender Ext: Anasarca flanks/lower ext/scrotum, right leg splinted Results - Labs CBC & Chem 7: 09/09/17 12:19 09/08/17 03:45 Laboratory Results - last 24 hr 09/07/17 09/07/17 09/07/17 03:45 11:55 18:20 WBC RBC Hgb Hct MCV MCH MCHC RDW Plt Count MPV Neut % (Auto) Lymph % (Auto) Cobb % (Auto) Eos % (Auto) Baso % (Auto) Neut # (Auto) Lymph # (Auto) Cobb # (Auto) Eos # (Auto) Baso # (Auto) WBC Differential Differential Comment Sodium Potassium Chloride Carbon Dioxide Anion Gap BUN Creatinine Estimated GFR POC Glucose 179 H 217 H Random Glucose Calcium Magnesium CARLOZ Screen Neg 09/07/17 09/08/17 09/08/17 19:40 03:45 03:45 WBC 6.6 RBC 3.01 L Hgb 7.9 L Hct 24.2 L MCV 80.5 MCH 26.2 L MCHC 32.5 RDW 15.5 Plt Count 206 MPV 7.1 Neut % (Auto) 75.5 H Lymph % (Auto) 9.8 Cobb % (Auto) 12.9 H Eos % (Auto) 1.0 Baso % (Auto) 0.8 Neut # (Auto) 5.0 Lymph # (Auto) 0.6 L Cobb # (Auto) 0.8 Eos # (Auto) 0.1 Baso # (Auto) 0.0 WBC Differential . Differential Comment Auto diff final Sodium 138 Potassium 4.8 Chloride 95 L Carbon Dioxide 36.4 H Anion Gap 7 BUN 26 H Creatinine 1.31 H Estimated GFR 59 L POC Glucose 227 H Random Glucose 167 H Calcium 8.9 Magnesium 1.6 CARLOZ Screen 09/08/17 09/08/17 07:42 11:18 WBC RBC Hgb Hct MCV MCH MCHC RDW Plt Count MPV Neut % (Auto) Lymph % (Auto) Cobb % (Auto) Eos % (Auto) Baso % (Auto) Neut # (Auto) Lymph # (Auto) Cobb # (Auto) Eos # (Auto) Baso # (Auto) WBC Differential Differential Comment Sodium Potassium Chloride Carbon Dioxide Anion Gap BUN Creatinine Estimated GFR POC Glucose 170 H 190 H Random Glucose Calcium Magnesium CARLOZ Screen Microbiology 08/24/17 15:00 Tissue - Ankle Fungal Smear - Final No fungal elements seen 08/24/17 15:00 Tissue - Ankle Fungal Culture - Preliminary No growth in 2 weeks 08/24/17 15:00 Tissue - Ankle Acid Fast Bacilli Smear - Final No acid fast bacilli seen 08/24/17 15:00 Tissue - Ankle Mycobacterial Culture - Preliminary No growth in 2 weeks - Procedures Right posterior Achilles incision and drainage 08/24/[address] Hull Assessment and Plan - Assessment (1) Rupture of right Achilles tendon Code(s): S86.011A - Strain of right Achilles tendon, initial encounter Status : Acute Plan: Open Achilles rupture, right - Recent admission with Achilles rupture - Pt underwent open repair of right Achilles tendon rupture with flexor hallucis longus tendon transfer and gastrocnemius recession, right lower extremity on 07/24/[address] Murillo. - Per podiatry, pt will need to be strict non-weight bearing for 6-8 weeks. - Pt was noted to have increased swelling and pain in the RLE on 08/04 - LE Doppler US (08/04) --> Is negative for DVT - Refused dc to snf and was noncompliant with weight bearing instructions. - Pt was readmitted with infection at operative site on 08/16 - He was seen by podiatry in clinic on 08/16 and sent to ED - MRI right ankle (08/16): 1. Postoperative change at the distal Achilles and calcaneus. Increased signal within the posterior calcaneus can all be consistent with postoperative change. It would be difficult to rule out osteomyelitis. 2. Fluid seen around the Achilles tendon. More superiorly in the mid lower leg, there is a larger fluid collection with peripheral enhancement. There is also a thinner fluid collection seen more superiorly in the proximal lower leg around the lateral aspect of the soleus muscle. These fluid collections could be postoperative seromas. An abscess could have a similar appearance. - vanco and Zosyn (08/17) - Rocephin (08/17 - present) - Comgmt with ID & Podiatry - Pt had a previous outpt culture taken on 08/11 which grew out Enterobacter cloacae - Right posterior Achilles incision and drainage 08/24/[address] Hull - Intraoperative wound Cx (08/24) --> Enterobacter cloacae - Plan to DC to SNF/rehab following hospitalization to ensure non-weight bearing of RLE and good recovery. Pt at risk for Right BKA. - The case was discussed with FHCP. Copay for SNF was defaulted. CM consulted. Pt agreeable for SNF but need to get accepting facility - Pt not ready for dc yet - Discussed dc abx with ID. orders written Volume overload Anasarca/edema - Pt was moved to ICU after Halicat and hypoxia on 08/31. Pt had received small dose of morphine a few hrs before the event. He was refusing bipap but now agreeable. Pt being followed by Dr Sawyer. - He continues with severe anasarca/lower ext edema and scrotal swelling. Also he has sleep apnea/hypoventilation and has hypoalbuminemia. - Procardia lowered to 30mg BID on 08/31, BP is stable. - Had right heart cath on last admission revealing increased right heart pressure. He has also some mild systolic dysfunction with EF 45% - Nephrology was consulted for evaluation of massive volume overload. - Pt was on Bumex gtt and diuresed 25L with about 20L negative balance. This was held when cr trended up, but now back on IV Lasix per renal. - despite high dose IV lasix, pt remains significantly volume overloaded - continue bumex gtt, 0.25 mg/H, 7050ml of urine out in the past 24 hours, - 5250 fluid balance over the past 24 hours - creatinine 1.32 -> 1.38 -> 1.31 - repeat BMP in AM, monitor electrolytes and renal function while on Bumex drip - nephrology also following recommending and reanl bx to evaluate for FSGS once patient stable - restrict fluids to 1.5 liters daily - Cont. to observe and once fluid issue stable will dc to SNF - DVT prophylaxis Obesity hypoventilation syndrome Hypercapnic respiratory insufficiency Obesity hypoventilation syndrome COPD - 2-D echocardiogram 07/23/17: - The left ventricular systolic function is mildly reduced with an estimated ejection fraction in the range of 45- 50%. - Mild infero-posterior hypokinesis - Mild concentric left ventricular hypertrophy. - The left atrial size is moderately dilated. - RHC completed (07/28) --> Class 2 Pulm HTN, PCW 23 - No Right heart strain, so sildenafil was stopped - Pt is noncompliant with CPAP COPD (chronic obstructive pulmonary disease) - chronic does not appear to be in acute exacerbation - Pt requiring 3-4L of supplemental O2 - Repeat CXR in AM Diabetes - Cont OHA and SSI. - Titrate as needed HTN (hypertension) - cont current BP meds, Cozaar 50mg q12H, Hydralazine 50mg TID, Coreg 25mg BID - May try to lower or stop Procardia. - Hydralazine PO PRN Anemia - Pts H/H has slowly been declining. No noted active GIB - During the last admission the pt was transfused with 2 units PRBCs (08/10) - During recent admission pt underwent evaluation with EGD/Colonoscopy (08/11/17 ) with Dr. Mccormick - int/ext hemorrhoids - sigmoid diverticulosis - esophagitis - gastric biopsies taken, results pending - Repeat labs on 08/21/17 with Hgb 8.3/Hct 24.6 -> 7.7/23.5 (08/24) -> 7.8/24.2, 7.6 (08/27), 8.5 (08/28), 7.7 (09/07), 7.9 (09/08) - Iron studies 08/08/17 Iron 26, TIBC 244, % saturation 10.7, ferritin 246 - ferritin 154 (08/27), retic 82 (08/27); b12 515, folate 7.9 (08/26) - case informally d/w Hematology - since ferritin > 100, unlikely d/t ANAHI - Hg improved following transfusion of 2 units PRBCs (08/27/17) - Check CBC in AM CAD (coronary artery disease) Recent history of pulmonary embolism - Patient had a PE approximately 8 months ago and was on Coumadin for until the cardiac cauterization 06/17/17 - Patient with recent cardiac catheterization with PCI 06/17/17 - After catheterization patient's Coumadin was DC'd and he was started on Aspirin and Plavix - Continue patient's Aspirin 81 mg daily, Plavix 75 mg PO daily, Atorvastatin 40 mg PO QHS and Coreg BID Anxiety and depression - Cont. Paxil 20mg daily - Attending Attestation Patient examined. Assessment and plan formulated with Sally Mathias PA-C. I agree with the above. (1) Rupture of right Achilles tendon Qualifiers: Encounter type: subsequent encounter Qualified Code(s): S86.011D - Strain of right Achilles tendon, subsequent encounter
[2017-09-08] MEDS: Albumin Human 25% Inj 50 ML IV.SIG SCH (11:47)
[2017-09-08] MEDS ORDERED: hydrALAZINE HCl Inj 20 MG/ML Vial IV.PUSH PRN (12:46)
[2017-09-08] MEDS ORDERED: Metoprolol Inj 5 MG/5 ML Vial IV.PUSH PRN (15:30)
--- NOTE | 2017-09-08 16:45 | P.PNPL ---
Subjective Interval history: 47 YOWM with Achelis tendon repair,JUDY,COPD Has huge scrotal swelling Diureasing Up in chair, did't use CPAP last night on Bumex drip Physical Exam Vital signs: Vital Signs 09/07/17 17:05 09/07/17 18:00 09/07/17 19:50 Temperature Pulse Rate 85 97 H 89 Respiratory Rate 15 17 Blood Pressure Pulse Oximetry 09/07/17 19:53 09/07/17 20:00 09/07/17 22:00 Temperature 98.8 F Pulse Rate 91 H 106 H Respiratory Rate 14 Blood Pressure 165/74 H Pulse Oximetry 98 95 09/07/17 23:29 09/08/17 00:00 09/08/17 02:00 Temperature 98.2 F Pulse Rate 105 H 98 H 101 H Respiratory Rate 24 18 Blood Pressure 165/78 H Pulse Oximetry 94 L 09/08/17 03:07 09/08/17 04:00 09/08/17 06:00 Temperature 98.2 F Pulse Rate 101 H 104 H 92 H Respiratory Rate 17 17 Blood Pressure 146/66 H Pulse Oximetry 97 09/08/17 08:00 09/08/17 08:49 09/08/17 10:00 Temperature 99.1 F Pulse Rate 81 95 H 79 Respiratory Rate 22 23 Blood Pressure 124/62 Pulse Oximetry 98 97 09/08/17 11:18 09/08/17 12:00 09/08/17 12:19 Temperature 99.3 F Pulse Rate 84 79 81 Respiratory Rate 13 14 Blood Pressure 116/62 Pulse Oximetry 98 09/08/17 14:00 09/08/17 16:00 Temperature 99.1 F Pulse Rate 80 83 Respiratory Rate 17 Blood Pressure 108/71 Pulse Oximetry 96 Intake & Output 09/07/17 09/08/17 09/08/17 18:59 06:59 18:59 Intake Total 1300 / 1300 500 / 500 Output Total 2950 / 2950 4100 / 4100 Balance -1650 / -1650 -3600 / -3600 Weight 181.4 kg Intake: IV 150 / 150 200 / 200 Flexbumin 25% Inj 50 ML @ 60 50 / 50 100 / 100 mls/hr IV.SIG Q12H [facility] Rx#: [id number] Rocephin Inj 2,000 MG In NS Inj 100 / 100 100 / 100 100 ML @ 200 mls/hr IV.SIG Q24H [facility] Rx#:[id number] Oral 1150 / 1150 300 / 300 Output: Urine 2950 / 2950 4100 / 4100 Other: Date of Last Bowel Movement 09/03/17 09/07/17 09/07/17 # Bowel Movements 0 GENERAL: Obese male,mild sob SKIN: Warm and dry. HEAD: Normocephalic. EYES: No scleral icterus. No injection or drainage. NECK: Supple, trachea midline. No JVD or lymphadenopathy. CARDIOVASCULAR: Regular rate and rhythm without murmurs, gallops, or rubs. RESPIRATORY: Breath sounds equal bilaterally. No accessory muscle use. GASTROINTESTINAL: Abdomen soft, non-tender, nondistended. MUSCULOSKELETAL: No cyanosis, or edema. BACK: Nontender without obvious deformity. No CVA tenderness. Assessment and Plan - Plan IMPRESSION: 1. Hypercapnic respiratory insufficiency. 2. Chronic obstructive pulmonary disease. 3. Obstructive sleep apnea. 4. Achilles tendon repair and leg infection. 5. Diabetes mellitus. 5. Scrotal edema. PLAN: Aerosol nebs Supplement 02 Encourage to use CPAP at night Cont Abx SQ Lovenox Bumex drip Saline Nasal spray
[2017-09-08] MEDS: Bumetanide Inj 25 MG/100 ML BAG IV.CONT SCH ×2 (18:36→22:50)
[2017-09-09] MEDS: Albumin Human 25% Inj 50 ML IV.SIG SCH ×2 (00:03→11:15)
[2017-09-09] MEDS: Enoxaparin Inj 40 MG/0.4 ML Syringe SQ SCH (00:04)
[2017-09-09] MEDS: LORazepam 0.5 MG Tablet PO PRN (03:43)
[2017-09-09] MEDS: Sodium Chloride 0.65% Nasal Spray 45 ML Bottle EACH NARE SCH ×4 (03:43→20:39)
[2017-09-09] MEDS: Gabapentin 300 MG Capsule PO SCH ×3 (06:09→23:03)
[2017-09-09] MEDS: Nystatin Liq 500,000 UNIT/5 ML UDC SWISH-SWAL SCH ×4 (08:13→20:37)
[2017-09-09] MEDS: Allopurinol 100 MG Tablet PO SCH (08:13)
[2017-09-09] MEDS: Heparin Central Flush 100 UNIT/ML 5 ML Vial IV.FLUSH SCH (08:14)
[2017-09-09] MEDS: Glimepiride 2 MG Tablet PO SCH ×2 (08:14→16:48)
[2017-09-09] MEDS: Carvedilol 12.5 MG Tablet PO SCH ×2 (08:14→20:36)
[2017-09-09] MEDS: Insulin NovoLOG Aspart Correctional Sugar Inj SQ SCH ×4 (08:19→20:38)
[2017-09-09] MEDS: Senna/Docusate Sodium 8.6/50 MG Tablet PO SCH ×2 (08:21→20:39)
[2017-09-09] MEDS: hydrALAZINE 25 MG Tablet PO SCH ×3 (08:28→18:06)
[2017-09-09 12:47] LABS: Baso # (Auto) 0.1 th/mm3 (0.0-0.2); Baso % (Auto) 1.4 % (0.0-2.0); Eos # (Auto) 0.1 th/mm3 (0.0-0.4); Eos % (Auto) 2.5 % (0.0-4.0); Hematocrit 25.7 % (39.0-51.0); Hemoglobin 8.4 gm/dL (13.0-17.0); Lymph # (Auto) 0.9 th/mm3 (1.0-4.8); Lymph % (Auto) 17.7 % (9.0-44.0); Mean Corpuscular HGB Conc 32.6 % (32.0-36.0); Mean Corpuscular Hemoglobin 26.5 pg (27.0-34.0); Mean Corpuscular Volume 81.1 fL (80.0-100.0); Mean Platelet Volume 7.2 fL (7.0-11.0); Mono # (Auto) 0.8 th/mm3 (0.0-0.9); Mono % (Auto) 15.8 % (0.0-8.0); Neut # (Auto) 3.3 th/mm3 (1.8-7.7); Neut % (Auto) 62.6 % (16.0-70.0); Platelet Count 231 th/mm3 (150-450); Red Blood Count 3.17 mil/mm3 (4.50-5.90); Red Cell Distribution Width 15.4 % (11.6-17.2); White Blood Count 5.2 th/mm3 (4.0-11.0)
[2017-09-09] MEDS ORDERED: Acetaminophen 325 MG Tablet PO PRN (13:09)
[2017-09-09 13:15] LABS: Calcium 8.9 mg/dL (8.5-10.1); Carbon Dioxide 34.7 meq/L (21.0-32.0); Potassium 4.8 meq/L (3.5-5.1)
--- NOTE | 2017-09-09 13:20 | P.PNIM ---
Subjective Interval history: Pt refusing to wear CPAP overnight. Night nursing staff was concerned that pt was too sedated. Yesterday, pt c/o muscle spasms and started on prn flexeril 10mg. Physical Exam Vital signs: Vital Signs 09/08/17 14:00 09/08/17 16:00 09/08/17 16:56 Temperature 99.1 F Pulse Rate 80 83 86 Respiratory Rate 17 15 Blood Pressure 108/71 Pulse Oximetry 96 09/08/17 18:00 09/08/17 18:33 09/08/17 20:00 Temperature 98.6 F Pulse Rate 86 87 Respiratory Rate 14 Blood Pressure 136/75 Pulse Oximetry 96 09/08/17 20:44 09/08/17 22:00 09/08/17 22:38 Temperature Pulse Rate 93 H 80 Respiratory Rate 16 22 Blood Pressure Pulse Oximetry 98 09/09/17 00:00 09/09/17 01:53 09/09/17 02:00 Temperature 97.7 F Pulse Rate 90 89 Respiratory Rate 28 H 17 Blood Pressure 123/65 Pulse Oximetry 97 09/09/17 03:14 09/09/17 03:57 09/09/17 04:00 Temperature 98.9 F Pulse Rate 85 92 H 87 Respiratory Rate 18 13 Blood Pressure 141/74 H Pulse Oximetry 97 09/09/17 06:00 09/09/17 06:09 09/09/17 07:52 Temperature 98.3 F Pulse Rate 92 H 91 H Respiratory Rate 20 16 Blood Pressure 129/58 L Pulse Oximetry 09/09/17 08:00 09/09/17 09:45 09/09/17 10:00 Temperature Pulse Rate 83 90 83 Respiratory Rate 18 Blood Pressure Pulse Oximetry 97 09/09/17 11:00 09/09/17 11:15 09/09/17 12:00 Temperature 98.5 F Pulse Rate 86 83 Respiratory Rate 16 15 16 Blood Pressure 132/89 Pulse Oximetry Intake & Output 09/08/17 09/09/17 09/09/17 18:59 06:59 18:59 Intake Total 1210 / 1210 1260 / 1260 Output Total 2800 / 2800 1050 / 1050 Balance -1590 / -1590 210 / 210 Weight 181.4 kg Intake: IV 300 / 300 Bumex Inj 25 mg In 100 ml @ 0. 100 / 100 25 MG/HR 1 mls/hr IV.CONT .Q24H [facility] Rx#:[id number] Flexbumin 25% Inj 50 ML @ 60 100 / 100 mls/hr IV.SIG Q12H [facility] Rx#: [id number] Rocephin Inj 2,000 MG In NS Inj 100 / 100 100 ML @ 200 mls/hr IV.SIG Q24H [facility] Rx#:[id number] Oral 710 / 710 960 / 960 Other 500 / 500 Output: Urine 2800 / 2800 1050 / 1050 Stool 0 / 0 Urine/Stool Mix 0 / 0 Other: Post Void Residual 0 # Voids 5 # Incontinent Voids 0 # Urine Diapers 0 Date of Last Bowel Movement 09/07/17 09/07/17 09/07/17 # Bowel Movements 0 Narrative: General: NAD, AAOx3 Cardiac: regular Chest: CTA bilaterally Abd: +BS, soft, distended, obese, nontender Ext: Anasarca flanks/lower ext/scrotum, right leg splinted Results - Labs CBC & Chem 7: 09/11/17 03:52 09/11/17 13:30 - Procedures Right posterior Achilles incision and drainage 08/24/[address] Hull Assessment and Plan - Assessment (1) Rupture of right Achilles tendon Code(s): S86.011A - Strain of right Achilles tendon, initial encounter Status : Acute Plan: Open Achilles rupture, right - Recent admission with Achilles rupture - Pt underwent open repair of right Achilles tendon rupture with flexor hallucis longus tendon transfer and gastrocnemius recession, right lower extremity on 07/24/[address] Murillo. - Per podiatry, pt will need to be strict non-weight bearing for 6-8 weeks. - Pt was noted to have increased swelling and pain in the RLE on 08/04 - LE Doppler US (08/04) --> Is negative for DVT - Refused dc to snf and was noncompliant with weight bearing instructions. - Pt was readmitted with infection at operative site on 08/16 - He was seen by podiatry in clinic on 08/16 and sent to ED - MRI right ankle (08/16): 1. Postoperative change at the distal Achilles and calcaneus. Increased signal within the posterior calcaneus can all be consistent with postoperative change. It would be difficult to rule out osteomyelitis. 2. Fluid seen around the Achilles tendon. More superiorly in the mid lower leg, there is a larger fluid collection with peripheral enhancement. There is also a thinner fluid collection seen more superiorly in the proximal lower leg around the lateral aspect of the soleus muscle. These fluid collections could be postoperative seromas. An abscess could have a similar appearance. - vanco and Zosyn (08/17) - Rocephin (08/17 - present) - Rocephin stop date 10/07/17 - Comgmt with ID & Podiatry - Pt had a previous outpt culture taken on 08/11 which grew out Enterobacter cloacae - Right posterior Achilles incision and drainage 08/24/[address] Hull - Intraoperative wound Cx (08/24) --> Enterobacter cloacae - Plan to DC to SNF/rehab following hospitalization to ensure non-weight bearing of RLE and good recovery. Pt at risk for Right BKA. - The case was discussed with [facility]CP. Copay for SNF was defaulted. CM consulted. Pt agreeable for SNF but need to get accepting facility - Pt not ready for dc yet - Discussed dc abx with ID. orders written Volume overload Anasarca/edema - Pt was moved to ICU after Halicat and hypoxia on 08/31. Pt had received small dose of morphine a few hrs before the event. He was refusing bipap but now agreeable. Pt being followed by Dr Sawyer. - He continues with severe anasarca/lower ext edema and scrotal swelling. Also he has sleep apnea/hypoventilation and has hypoalbuminemia. - Procardia lowered to 30mg BID on 08/31, BP is stable. - Had right heart cath on last admission revealing increased right heart pressure. He has also some mild systolic dysfunction with EF 45% - Nephrology was consulted for evaluation of massive volume overload. - Pt was on Bumex gtt and diuresed 25L with about 20L negative balance. This was held when cr trended up, but now back on IV Lasix per renal. - despite high dose IV lasix, pt remains significantly volume overloaded - continue bumex gtt, 0.25 mg/H, 7050ml of urine out in the past 24 hours, - 5250 fluid balance over the past 24 hours - creatinine 1.32 -> 1.38 -> 1.31, 1.55 (7/20) - Continue Bumex gtt - repeat BMP in AM - If creatinine continues to climb, may need to hold bumex gtt for 1-2 days - Pt continues to exhibit significant clinical volume overload and is NOT yet ready for discharge. - nephrology also following recommending and reanl bx to evaluate for FSGS once patient stable - restrict fluids to 1.5 liters daily - Cont. to observe and once fluid issue stable will dc to SNF - DVT prophylaxis Obesity hypoventilation syndrome Hypercapnic respiratory insufficiency Obesity hypoventilation syndrome COPD - 2-D echocardiogram 07/23/17: - The left ventricular systolic function is mildly reduced with an estimated ejection fraction in the range of 45- 50%. - Mild infero-posterior hypokinesis - Mild concentric left ventricular hypertrophy. - The left atrial size is moderately dilated. - RHC completed (07/28) --> Class 2 Pulm HTN, PCW 23 - No Right heart strain, so sildenafil was stopped - Pt is noncompliant with CPAP - Pt sedated overnight - decrease flexeril to 5mg q8h prn - decrease norco to q6h prn - encourage pt to wear CPAP at night. COPD (chronic obstructive pulmonary disease) - chronic does not appear to be in acute exacerbation - Pt requiring 3-4L of supplemental O2 - Repeat CXR in AM Diabetes - Cont OHA and SSI. - Titrate as needed HTN (hypertension) - cont current BP meds, Cozaar 50mg q12H, Hydralazine 50mg TID, Coreg 25mg BID - May try to lower or stop Procardia. - Hydralazine PO PRN Anemia - Pts H/H has slowly been declining. No noted active GIB - During the last admission the pt was transfused with 2 units PRBCs (08/10) - During recent admission pt underwent evaluation with EGD/Colonoscopy (08/11/17 ) with Dr. Mccormick - int/ext hemorrhoids - sigmoid diverticulosis - esophagitis - gastric biopsies taken, results pending - Repeat labs on 08/21/17 with Hgb 8.3/Hct 24.6 -> 7.7/23.5 (08/24) -> 7.8/24.2, 7.6 (08/27), 8.5 (08/28), 7.7 (09/07), 7.9 (09/08) - Iron studies 08/08/17 Iron 26, TIBC 244, % saturation 10.7, ferritin 246 - ferritin 154 (08/27), retic 82 (08/27); b12 515, folate 7.9 (08/26) - case informally d/w Hematology - since ferritin > 100, unlikely d/t ANAHI - Hg improved following transfusion of 2 units PRBCs (08/27/17) - observe CAD (coronary artery disease) Recent history of pulmonary embolism - Patient had a PE approximately 8 months ago and was on Coumadin for until the cardiac cauterization 06/17/17 - Patient with recent cardiac catheterization with PCI 06/17/17 - After catheterization patient's Coumadin was DC'd and he was started on Aspirin and Plavix - Continue patient's Aspirin 81 mg daily, Plavix 75 mg PO daily, Atorvastatin 40 mg PO QHS and Coreg BID Anxiety and depression - Cont. Paxil 20mg daily (1) Rupture of right Achilles tendon Qualifiers: Encounter type: subsequent encounter Qualified Code(s): S86.011D - Strain of right Achilles tendon, subsequent encounter
--- NOTE | 2017-09-09 17:17 | P.PNNP ---
Subjective Interval history: Patient is alert, sitting on chair, mild SOB, with nasal cannula. Physical Exam Vital signs: Vital Signs 09/08/17 18:00 09/08/17 18:33 09/08/17 20:00 Temperature 98.6 F Pulse Rate 86 87 Respiratory Rate 14 Blood Pressure 136/75 Pulse Oximetry 96 09/08/17 20:44 09/08/17 22:00 09/08/17 22:38 Temperature Pulse Rate 93 H 80 Respiratory Rate 16 22 Blood Pressure Pulse Oximetry 98 09/09/17 00:00 09/09/17 01:53 09/09/17 02:00 Temperature 97.7 F Pulse Rate 90 89 Respiratory Rate 28 H 17 Blood Pressure 123/65 Pulse Oximetry 97 09/09/17 03:14 09/09/17 03:57 09/09/17 04:00 Temperature 98.9 F Pulse Rate 85 92 H 87 Respiratory Rate 18 13 Blood Pressure 141/74 H Pulse Oximetry 97 09/09/17 06:00 09/09/17 06:09 09/09/17 07:52 Temperature 98.3 F Pulse Rate 92 H 91 H Respiratory Rate 20 16 Blood Pressure 129/58 L Pulse Oximetry 09/09/17 08:00 09/09/17 09:45 09/09/17 10:00 Temperature Pulse Rate 83 90 83 Respiratory Rate 18 Blood Pressure Pulse Oximetry 97 09/09/17 11:00 09/09/17 11:15 09/09/17 12:00 Temperature 98.5 F Pulse Rate 86 83 Respiratory Rate 16 15 16 Blood Pressure 132/89 Pulse Oximetry 09/09/17 13:59 09/09/17 15:00 09/09/17 16:00 Temperature 98.6 F Pulse Rate 90 84 84 Respiratory Rate 16 14 Blood Pressure 156/76 H Pulse Oximetry 09/09/17 16:48 Temperature Pulse Rate Respiratory Rate 14 Blood Pressure Pulse Oximetry Intake & Output 09/08/17 09/09/17 09/09/17 18:59 06:59 18:59 Intake Total 1210 / 1210 1260 / 1260 Output Total 2800 / 2800 1050 / 1050 Balance -1590 / -1590 210 / 210 Weight 181.4 kg Intake: IV 300 / 300 Bumex Inj 25 mg In 100 ml @ 0. 100 / 100 25 MG/HR 1 mls/hr IV.CONT .Q24H [facility] Rx#:[id number] Flexbumin 25% Inj 50 ML @ 60 100 / 100 mls/hr IV.SIG Q12H [facility] Rx#: [id number] Rocephin Inj 2,000 MG In NS Inj 100 / 100 100 ML @ 200 mls/hr IV.SIG Q24H [facility] Rx#:[id number] Oral 710 / 710 960 / 960 Other 500 / 500 Output: Urine 2800 / 2800 1050 / 1050 Stool 0 / 0 Urine/Stool Mix 0 / 0 Other: Post Void Residual 0 # Voids 5 # Incontinent Voids 0 # Urine Diapers 0 Date of Last Bowel Movement 09/07/17 09/07/17 09/07/17 # Bowel Movements 0 Narrative: General: NAD, AAOx3 Cardiac: regular Chest: Decrease air entry at bases, with occ. rhonchi. Abd: +BS, soft, distended, obese, nontender Ext: Anasarca flanks/lower ext/scrotum, right leg splinted Assessment and Plan - Assessment (1) Anasarca Code(s): R60.1 - Generalized edema Status: Acute Plan: Significant edema and anasarca. Urinalysis with significant protein on losartan Renal ultrasound: Limited exam of the kidneys secondary to the patient's body habitus. Creatinine stable with diuresis with a creatinine at 1.32 -> 1.36 ->1.31 UOP 7.5 L/24 hours Increase Bumex gtt at 0.5mg/hr and albumin. Also add Metolazone, ANCA- pending C3, C4, CARLOZ normal Will need kidney biopsy when stable possible has FSGS or Membranous GN. Has over 5 grams of protein in 24 hour urine Will monitor the urine output and BUN and creatinine closely. (2) Diabetes Code(s): E11.9 - Type 2 diabetes mellitus without complications Status: Chronic Qualifiers: Diabetes mellitus type: type 2 Plan: Maintain blood sugar 140mg/dl- 180mg/dl (3) HTN (hypertension) Code(s): I10 - Essential (primary) hypertension Status: Chronic Plan: Will continue to monitor - Plan Patient seen and examined, agree with above. Continue Lasix and Albumin, 24 hr. urine collection in progress.
--- NOTE | 2017-09-09 18:03 | P.PNPL ---
Subjective Interval history: 47 YOWM with Achelis tendon repair,JUDY,COPD Has huge scrotal swelling Diureasing Up in chair, did't use CPAP last night " I slept only 1 hr last night" Sleeps during day time. on Bumex drip Physical Exam Vital signs: Vital Signs 09/08/17 18:33 09/08/17 20:00 09/08/17 20:44 Temperature 98.6 F Pulse Rate 87 93 H Respiratory Rate 14 16 Blood Pressure 136/75 Pulse Oximetry 96 98 09/08/17 22:00 09/08/17 22:38 09/09/17 00:00 Temperature 97.7 F Pulse Rate 80 90 Respiratory Rate 22 28 H Blood Pressure 123/65 Pulse Oximetry 97 09/09/17 01:53 09/09/17 02:00 09/09/17 03:14 Temperature Pulse Rate 89 85 Respiratory Rate 17 18 Blood Pressure Pulse Oximetry 09/09/17 03:57 09/09/17 04:00 09/09/17 06:00 Temperature 98.9 F Pulse Rate 92 H 87 92 H Respiratory Rate 13 Blood Pressure 141/74 H Pulse Oximetry 97 09/09/17 06:09 09/09/17 07:52 09/09/17 08:00 Temperature 98.3 F Pulse Rate 91 H 83 Respiratory Rate 20 16 Blood Pressure 129/58 L Pulse Oximetry 97 09/09/17 09:45 09/09/17 10:00 09/09/17 11:00 Temperature Pulse Rate 90 83 86 Respiratory Rate 18 16 Blood Pressure Pulse Oximetry 09/09/17 11:15 09/09/17 12:00 09/09/17 13:59 Temperature 98.5 F Pulse Rate 83 90 Respiratory Rate 15 16 Blood Pressure 132/89 Pulse Oximetry 09/09/17 15:00 09/09/17 16:00 09/09/17 16:48 Temperature 98.6 F Pulse Rate 84 84 Respiratory Rate 16 14 14 Blood Pressure 156/76 H Pulse Oximetry 09/09/17 17:59 Temperature Pulse Rate 90 Respiratory Rate Blood Pressure Pulse Oximetry Intake & Output 09/08/17 09/09/17 09/09/17 18:59 06:59 18:59 Intake Total 1210 / 1210 1260 / 1260 1960 / 1960 Output Total 2800 / 2800 1050 / 1050 1070 / 1070 Balance -1590 / -1590 210 / 210 890 / 890 Weight 181.4 kg Intake: IV 300 / 300 Bumex Inj 25 mg In 100 ml @ 0. 100 / 100 25 MG/HR 1 mls/hr IV.CONT .Q24H [facility] Rx#:[id number] Flexbumin 25% Inj 50 ML @ 60 100 / 100 mls/hr IV.SIG Q12H [facility] Rx#: [id number] Rocephin Inj 2,000 MG In NS Inj 100 / 100 100 ML @ 200 mls/hr IV.SIG Q24H [facility] Rx#:[id number] Oral 710 / 710 960 / 960 960 / 960 Anesthesia Amount 500 / 500 Other 500 / 500 500 / 500 Output: Urine 2800 / 2800 1050 / 1050 1050 / 1050 Stool 0 / 0 0 / 0 Urine/Stool Mix 0 / 0 0 / 0 Estimated Blood Loss 20 / 20 Other: Post Void Residual 0 0 # Voids 5 5 # Incontinent Voids 0 0 # Urine Diapers 0 0 Date of Last Bowel Movement 09/07/17 09/07/17 09/07/17 # Bowel Movements 0 0 GENERAL: Obese WM, NAD SKIN: Warm and dry. HEAD: Normocephalic. EYES: No scleral icterus. No injection or drainage. NECK: Supple, trachea midline. No JVD or lymphadenopathy. CARDIOVASCULAR: Regular rate and rhythm without murmurs, gallops, or rubs. RESPIRATORY: Breath sounds equal bilaterally. No accessory muscle use. GASTROINTESTINAL: Abdomen soft, non-tender, nondistended. MUSCULOSKELETAL: No cyanosis, ++ edema.Has scrotal swelling. BACK: Nontender without obvious deformity. No CVA tenderness. Assessment and Plan - Plan IMPRESSION: 1. Hypercapnic respiratory insufficiency. 2. Chronic obstructive pulmonary disease. 3. Obstructive sleep apnea. 4. Achilles tendon repair and leg infection. 5. Diabetes mellitus. 5. Scrotal edema. PLAN: Aerosol nebs Supplement 02 Encourage to use CPAP at night Cont Abx SQ Lovenox Bumex drip Saline Nasal spray monitor susannah
[2017-09-09] MEDS: Bumetanide Inj 25 MG/100 ML BAG IV.CONT SCH (20:33)
[2017-09-10] MEDS: Albumin Human 25% Inj 50 ML IV.SIG SCH ×3 (00:01→23:57)
[2017-09-10] MEDS: Enoxaparin Inj 40 MG/0.4 ML Syringe SQ SCH ×2 (00:02→23:57)
[2017-09-10] MEDS: LORazepam 0.5 MG Tablet PO PRN (00:04)
[2017-09-10] MEDS: Sodium Chloride 0.65% Nasal Spray 45 ML Bottle EACH NARE SCH ×4 (04:45→21:27)
[2017-09-10 05:51] LABS: Baso # (Auto) 0.1 th/mm3 (0.0-0.2); Baso % (Auto) 1.2 % (0.0-2.0); Eos # (Auto) 0.2 th/mm3 (0.0-0.4); Eos % (Auto) 3.1 % (0.0-4.0); Hematocrit 24.5 % (39.0-51.0); Hemoglobin 7.9 gm/dL (13.0-17.0); Lymph % (Auto) 17.7 % (9.0-44.0); Mean Corpuscular HGB Conc 32.4 % (32.0-36.0); Mean Corpuscular Volume 80.2 fL (80.0-100.0); Mean Platelet Volume 7.3 fL (7.0-11.0); Mono # (Auto) 0.8 th/mm3 (0.0-0.9); Mono % (Auto) 15.5 % (0.0-8.0); Neut # (Auto) 3.4 th/mm3 (1.8-7.7); Neut % (Auto) 62.5 % (16.0-70.0); Platelet Count 207 th/mm3 (150-450); Red Blood Count 3.05 mil/mm3 (4.50-5.90); Red Cell Distribution Width 15.4 % (11.6-17.2); White Blood Count 5.4 th/mm3 (4.0-11.0)
[2017-09-10 06:14] LABS: Calcium 8.8 mg/dL (8.5-10.1); Carbon Dioxide 34.9 meq/L (21.0-32.0); Potassium 4.5 meq/L (3.5-5.1)
[2017-09-10] MEDS: Gabapentin 300 MG Capsule PO SCH ×3 (07:35→21:27)
[2017-09-10] MEDS: Senna/Docusate Sodium 8.6/50 MG Tablet PO SCH ×2 (09:47→21:27)
[2017-09-10] MEDS: hydrALAZINE 25 MG Tablet PO SCH ×3 (09:48→17:56)
[2017-09-10] MEDS: Carvedilol 12.5 MG Tablet PO SCH ×2 (09:48→21:25)
[2017-09-10] MEDS: Allopurinol 100 MG Tablet PO SCH (09:48)
[2017-09-10] MEDS: Glimepiride 2 MG Tablet PO SCH ×2 (09:48→17:58)
[2017-09-10] MEDS: Heparin Central Flush 100 UNIT/ML 5 ML Vial IV.FLUSH SCH (12:42)
--- NOTE | 2017-09-10 13:23 | P.PNNP ---
Subjective Interval history: Patient has acute and chronic kidney disease fluid overload responding to Bumex drip and Zaroxolyn Physical Exam Vital signs: Vital Signs 09/09/17 13:59 09/09/17 15:00 09/09/17 16:00 Temperature 98.6 F Pulse Rate 90 84 84 Respiratory Rate 16 14 Blood Pressure 156/76 H Pulse Oximetry 09/09/17 16:48 09/09/17 17:59 09/09/17 20:00 Temperature 98.3 F Pulse Rate 90 92 H Respiratory Rate 14 24 Blood Pressure 151/77 H Pulse Oximetry 97 09/09/17 20:18 09/09/17 20:39 09/09/17 22:00 Temperature Pulse Rate 97 H 92 H Respiratory Rate 18 16 Blood Pressure Pulse Oximetry 97 09/10/17 00:00 09/10/17 00:03 09/10/17 00:41 Temperature 98.5 F Pulse Rate 95 H 93 H Respiratory Rate 14 26 H 17 Blood Pressure 154/72 H Pulse Oximetry 97 09/10/17 02:00 09/10/17 03:36 09/10/17 04:00 Temperature Pulse Rate 91 H 88 Respiratory Rate 15 Blood Pressure 144/67 H Pulse Oximetry 95 94 L 09/10/17 04:46 09/10/17 06:00 09/10/17 09:44 Temperature Pulse Rate 90 Respiratory Rate 18 14 Blood Pressure Pulse Oximetry 09/10/17 10:40 09/10/17 10:41 Temperature Pulse Rate 84 Respiratory Rate 20 Blood Pressure Pulse Oximetry 96 Intake & Output 09/09/17 09/10/17 09/10/17 18:59 06:59 18:59 Intake Total 2009 480 / 480 Output Total 2920 / 2920 1969 / 1969 Balance -910 / -910 -1490 / -1490 Weight 181.4 kg Intake: IV 50 / 50 0 / 0 Flexbumin 25% Inj 50 ML @ 60 50 / 50 0 / 0 mls/hr IV.SIG Q12H [facility] Rx#: [id number] Oral 960 / 960 480 / 480 Anesthesia Amount 500 / 500 0 / 0 Other 500 / 500 0 / 0 Output: Urine 2900 / 2900 1949 / 1949 Stool 0 / 0 0 / 0 Urine/Stool Mix 0 / 0 0 / 0 Estimated Blood Loss Other: Post Void Residual 0 0 # Voids 5 3 # Incontinent Voids 0 0 # Urine Diapers 0 0 Date of Last Bowel Movement 09/07/17 09/09/17 # Bowel Movements 0 1 Narrative: General: NAD, AAOx3 Cardiac: regular Chest: Decrease air entry at bases, with occ. rhonchi. Abd: +BS, soft, distended, obese, nontender Ext: Anasarca flanks/lower ext/scrotum, right leg splinted - Constitutional no acute distress - Routine HEENT Exam Head: Present: normocephalic Eye: Present: EOMI - Routine Neck Exam Present: supple - Routine Respiratory Exam Present: CTA bilaterally - Routine Cardiovascular Exam Present: RRR - Routine Abdominal Exam Present: soft, distended - Routine Extremities Exam Present: edema Assessment and Plan - Assessment (1) Acute kidney injury superimposed on chronic kidney disease Code(s): N17.9 - Acute kidney failure, unspecified; N18.9 - Chronic kidney disease, unspecified Status: Acute - Plan Patient is seen responding to Bumex drip at 0.5 mg/h urine output is 3.8 L, Zaroxolyn 2.5 mg twice daily, diuresing well edema is slowly improving Creatinine is slightly elevated Follow BMP Medications Active Medications Acetaminophen (Tylenol) 650 mg PO Q6H PRN PRN Reason: pain 1-5 Hydrocodone Bitart/Acetaminophen ([place] 10/325) 1 tab PO Q4H PRN PRN Reason: PAIN 6-10;IF UNABLE TO TAKE PO Last Admin: 09/10/17 12:41 Dose: 1 tab Al Hydroxide/Mg Hydroxide (Milk Of Magnesia Liq) 30 ml PO Q12H PRN PRN Reason: MILD CONSTIPATION Albuterol (Duoneb Neb ([facility])) 1 ampul NEB Q4HR NEB [facility] Last Admin: 09/10/17 10:30 Dose: 1 ampul Allopurinol (Zyloprim) 100 mg PO DAILY [facility] Last Admin: 09/10/17 09:48 Dose: 100 mg Aspirin (Ecotrin) 81 mg PO DAILY [facility] Last Admin: 09/10/17 09:48 Dose: 81 mg Atorvastatin Calcium (Lipitor) 40 mg PO HS [facility] Last Admin: 09/09/17 20:37 Dose: 40 mg Benzocaine/Menthol (Chloraseptic Sore Throat Lozenge) 1 lozenge BUCCAL Q2HR PRN PRN Reason: sore throat Bisacodyl (Dulcolax Supp) 10 mg RECTAL DAILY PRN PRN Reason: SEVERE CONSTIPATION Carvedilol (Coreg) 25 mg PO BID [facility] Last Admin: 09/10/17 09:48 Dose: 12.5 mg Clopidogrel Bisulfate (Plavix) 75 mg PO DAILY [facility] Last Admin: 09/10/17 12:08 Dose: 75 mg Cyclobenzaprine HCl (Flexeril) 5 mg PO Q8H PRN PRN Reason: MUSCLE SPASM Dextrose (D50w Vial) 50 ml IV.PUSH UNSCH PRN PRN Reason: PER HYPOGLYCEMIA PROTOCOL Enoxaparin Sodium (Lovenox Inj) 40 mg SQ Q24H [facility] Last Admin: 09/10/17 00:02 Dose: 40 mg Gabapentin (Neurontin) 300 mg PO Q8HR [facility] Last Admin: 09/10/17 07:35 Dose: 300 mg Glimepiride (Amaryl) 2 mg PO BIDAC [facility] Last Admin: 09/10/17 09:48 Dose: 2 mg Glucagon (Glucagon Inj) 1 mg OTHER PRN PRN PRN Reason: for Hypoglycemia Protocol Heparin Sodium (Porcine) (Heparin Central Flush) 0 unit IV.FLUSH DAILY [facility] Last Admin: 09/10/17 12:42 Dose: Not Given Heparin Sodium (Porcine) (Heparin Central Flush) 0 unit IV.FLUSH PRN PRN PRN Reason: Flush PICC Line Hydralazine HCl (Apresoline) 50 mg PO TID [facility] Last Admin: 09/10/17 12:08 Dose: 25 mg Ceftriaxone Sodium 2,000 mg/ (Sodium Chloride) 100 mls @ 200 mls/hr IV.SIG Q24H [facility] Last Admin: 09/09/17 20:34 Dose: 200 mls/hr Albumin Human (Flexbumin 25% Inj) 50 mls @ 60 mls/hr IV.SIG Q12H [facility] Last Admin: 09/10/17 12:08 Dose: 50 mls/hr Insulin Aspart (Novolog Insulin Suppl Scale Inj) 0 unit SQ ACHS [facility]; Protocol Last Admin: 09/09/17 20:38 Dose: 4 unit Lactulose (Lactulose Liq) 30 ml PO DAILY PRN PRN Reason: SEVERE CONSTIPATION Lorazepam (Ativan) 0.5 mg PO Q6H PRN PRN Reason: ANXIETY Last Admin: 09/10/17 00:04 Dose: 0.5 mg Losartan Potassium (Cozaar) 50 mg PO Q12HR [facility] Last Admin: 09/10/17 09:49 Dose: 50 mg [facility] ([facility]) [facility] Last Admin: 09/10/17 09:48 Dose: 500 mg Metolazone (Zaroxolyn) 2.5 mg PO BID [facility] Last Admin: 09/10/17 09:48 Dose: 2.5 mg Metoprolol Tartrate (Lopressor Inj) 5 mg IV.PUSH Q6H PRN PRN Reason: Sbp>170, Dbp>90 Naloxone HCl (Narcan Inj) 0.4 mg IV.PUSH UNSCH PRN PRN Reason: SEE LABEL COMMENTS Nifedipine (Procardia Xl) 30 mg PO BID [facility] Last Admin: 09/10/17 09:49 Dose: 30 mg Nystatin (Mycostatin Liq) 5 ml SWISH-SWAL QID [facility] Last Admin: 09/09/17 20:37 Dose: 5 ml Pantoprazole Sodium (Protonix) 40 mg PO DAILY [facility] Last Admin: 09/10/17 09:49 Dose: 40 mg Paroxetine HCl (Paxil) 20 mg PO DAILY [facility] Last Admin: 09/10/17 09:48 Dose: 20 mg Potassium Chloride (K-Dur) 20 meq PO BID [facility] Last Admin: 09/10/17 09:47 Dose: 20 meq Senna/Docusate Sodium ([place]-Colace) 1 tab PO BID [facility] Last Admin: 09/10/17 09:47 Dose: 1 tab Sennosides (Senokot) 17.2 mg PO Q12H PRN PRN Reason: MODERATE CONSTIPATION Sodium Chloride (Ns Flush) 2 ml IV.FLUSH UNSCH PRN PRN Reason: FLUSH AFTER USING IV ACCESS Last Admin: 09/03/17 08:58 Dose: 2 ml Sodium Chloride (Ns Flush) 2 ml IV.FLUSH BID [facility] Last Admin: 09/10/17 12:43 Dose: 2 ml Sodium Chloride (Ns Flush) 0 ml IV.FLUSH DAILY [facility] Last Admin: 09/09/17 08:29 Dose: 10 ml Sodium Chloride (Ns Flush) 0 ml IV.FLUSH PRN PRN PRN Reason: FLUSH AFTER USING IV ACCESS Sodium Chloride (Ns Flush) 0 ml IV.FLUSH PRN PRN PRN Reason: Flush After Blood Draws Sodium Chloride ([place] Nasal [place]) 1 spray EACH NARE Q6H [facility] Last Admin: 09/10/17 04:45 Dose: 1 spray Temazepam (Restoril) 15 mg PO HS PRN PRN Reason: INSOMNIA Last Admin: 08/29/17 21:47 Dose: 15 mg Throat Lozenges (Chloraseptic [place]) 2 spray OROPHARYNG Q2H PRN PRN Reason: sore throat Diagnostic Tests Laboratory: Laboratory Results - last 72 hr 09/07/17 09/07/17 09/07/17 03:45 03:45 18:20 WBC RBC Hgb Hct MCV MCH MCHC RDW Plt Count MPV Neut % (Auto) Lymph % (Auto) [place] % (Auto) Eos % (Auto) Baso % (Auto) Neut # (Auto) Lymph # (Auto) [place] # (Auto) Eos # (Auto) Baso # (Auto) WBC Differential Differential Comment Sodium Potassium Chloride Carbon Dioxide Anion Gap BUN Creatinine Estimated GFR POC Glucose 217 H Random Glucose Calcium Magnesium CARLOZ Screen Neg Anti-Proteinase 3 Less than 1.0 Anti-Myeloperoxidase Less than 1.0 09/07/17 09/08/17 09/08/17 19:40 03:45 03:45 WBC 6.6 RBC 3.01 L Hgb 7.9 L Hct 24.2 L MCV 80.5 MCH 26.2 L MCHC 32.5 RDW 15.5 Plt Count 206 MPV 7.1 Neut % (Auto) 75.5 H Lymph % (Auto) 9.8 [place] % (Auto) 12.9 H Eos % (Auto) 1.0 Baso % (Auto) 0.8 Neut # (Auto) 5.0 Lymph # (Auto) 0.6 L [place] # (Auto) 0.8 Eos # (Auto) 0.1 Baso # (Auto) 0.0 WBC Differential . Differential Comment Auto diff final Sodium 138 Potassium 4.8 Chloride 95 L Carbon Dioxide 36.4 H Anion Gap 7 BUN 26 H Creatinine 1.31 H Estimated GFR 59 L POC Glucose 227 H Random Glucose 167 H Calcium 8.9 Magnesium 1.6 CARLOZ Screen Anti-Proteinase 3 Anti-Myeloperoxidase 09/08/17 09/08/17 09/08/17 07:42 11:18 17:39 WBC RBC Hgb Hct MCV MCH MCHC RDW Plt Count MPV Neut % (Auto) Lymph % (Auto) [place] % (Auto) Eos % (Auto) Baso % (Auto) Neut # (Auto) Lymph # (Auto) [place] # (Auto) Eos # (Auto) Baso # (Auto) WBC Differential Differential Comment Sodium Potassium Chloride Carbon Dioxide Anion Gap BUN Creatinine Estimated GFR POC Glucose 170 H 190 H 248 H Random Glucose Calcium Magnesium CARLOZ Screen Anti-Proteinase 3 Anti-Myeloperoxidase 09/08/17 09/09/17 09/09/17 19:50 07:52 12:19 WBC 5.2 RBC 3.17 L Hgb 8.4 L Hct 25.7 L MCV 81.1 MCH 26.5 L MCHC 32.6 RDW 15.4 Plt Count 231 MPV 7.2 Neut % (Auto) 62.6 Lymph % (Auto) 17.7 [place] % (Auto) 15.8 H Eos % (Auto) 2.5 Baso % (Auto) 1.4 Neut # (Auto) 3.3 Lymph # (Auto) 0.9 L [place] # (Auto) 0.8 Eos # (Auto) 0.1 Baso # (Auto) 0.1 WBC Differential . Differential Comment Auto diff final Sodium Potassium Chloride Carbon Dioxide Anion Gap BUN Creatinine Estimated GFR POC Glucose 237 H 275 H Random Glucose Calcium Magnesium CARLOZ Screen Anti-Proteinase 3 Anti-Myeloperoxidase 09/09/17 09/09/17 09/09/17 12:19 12:52 16:32 WBC RBC Hgb Hct MCV MCH MCHC RDW Plt Count MPV Neut % (Auto) Lymph % (Auto) [place] % (Auto) Eos % (Auto) Baso % (Auto) Neut # (Auto) Lymph # (Auto) [place] # (Auto) Eos # (Auto) Baso # (Auto) WBC Differential Differential Comment Sodium 138 Potassium 4.8 Chloride 97 L Carbon Dioxide 34.7 H Anion Gap 6 BUN 31 H Creatinine 1.55 H Estimated GFR 49 L POC Glucose 209 H 212 H Random Glucose 186 H Calcium 8.9 Magnesium CARLOZ Screen Anti-Proteinase 3 Anti-Myeloperoxidase 09/09/17 09/10/17 09/10/17 20:04 04:43 04:43 WBC 5.4 RBC 3.05 L Hgb 7.9 L Hct 24.5 L MCV 80.2 MCH 26.0 L MCHC 32.4 RDW 15.4 Plt Count 207 MPV 7.3 Neut % (Auto) 62.5 Lymph % (Auto) 17.7 [place] % (Auto) 15.5 H Eos % (Auto) 3.1 Baso % (Auto) 1.2 Neut # (Auto) 3.4 Lymph # (Auto) 1.0 [place] # (Auto) 0.8 Eos # (Auto) 0.2 Baso # (Auto) 0.1 WBC Differential . Differential Comment Auto diff final Sodium 138 Potassium 4.5 Chloride 95 L Carbon Dioxide 34.9 H Anion Gap 8 BUN 33 H Creatinine 1.71 H Estimated GFR 43 L POC Glucose 212 H Random Glucose 180 H Calcium 8.8 Magnesium CARLOZ Screen Anti-Proteinase 3 Anti-Myeloperoxidase 09/10/17 11:25 WBC RBC Hgb Hct MCV MCH MCHC RDW Plt Count MPV Neut % (Auto) Lymph % (Auto) [place] % (Auto) Eos % (Auto) Baso % (Auto) Neut # (Auto) Lymph # (Auto) [place] # (Auto) Eos # (Auto) Baso # (Auto) WBC Differential Differential Comment Sodium Potassium Chloride Carbon Dioxide Anion Gap BUN Creatinine Estimated GFR POC Glucose 186 H Random Glucose Calcium Magnesium CARLOZ Screen Anti-Proteinase 3 Anti-Myeloperoxidase Result Diagrams: 09/10/17 04:43 09/10/17 04:43 Microbiology: Microbiology 08/24/17 15:00 Fungal Smear - Final Tissue - Ankle No fungal elements seen Fungal Culture - Preliminary No growth in 2 weeks 08/24/17 15:00 Acid Fast Bacilli Smear - Final Tissue - Ankle No acid fast bacilli seen Mycobacterial Culture - Preliminary No growth in 2 weeks
--- NOTE | 2017-09-10 13:34 | P.PNPL ---
Subjective Interval history: 47 YOWM with Achelis tendon repair,JUDY,COPD Has huge scrotal swelling Diureasing Up in chair, did use CPAP last night on Bumex drip at BS Physical Exam Vital signs: Vital Signs 09/09/17 13:59 09/09/17 15:00 09/09/17 16:00 Temperature 98.6 F Pulse Rate 90 84 84 Respiratory Rate 16 14 Blood Pressure 156/76 H Pulse Oximetry 09/09/17 16:48 09/09/17 17:59 09/09/17 20:00 Temperature 98.3 F Pulse Rate 90 92 H Respiratory Rate 14 24 Blood Pressure 151/77 H Pulse Oximetry 97 09/09/17 20:18 09/09/17 20:39 09/09/17 22:00 Temperature Pulse Rate 97 H 92 H Respiratory Rate 18 16 Blood Pressure Pulse Oximetry 97 09/10/17 00:00 09/10/17 00:03 09/10/17 00:41 Temperature 98.5 F Pulse Rate 95 H 93 H Respiratory Rate 14 26 H 17 Blood Pressure 154/72 H Pulse Oximetry 97 09/10/17 02:00 09/10/17 03:36 09/10/17 04:00 Temperature Pulse Rate 91 H 88 Respiratory Rate 15 Blood Pressure 144/67 H Pulse Oximetry 95 94 L 09/10/17 04:46 09/10/17 06:00 09/10/17 09:44 Temperature Pulse Rate 90 Respiratory Rate 18 14 Blood Pressure Pulse Oximetry 09/10/17 10:40 09/10/17 10:41 Temperature Pulse Rate 84 Respiratory Rate 20 Blood Pressure Pulse Oximetry 96 Intake & Output 09/09/17 09/10/17 09/10/17 18:59 06:59 18:59 Intake Total 2009 480 / 480 Output Total 2920 / 2920 1969 / 1969 Balance -910 / -910 -1490 / -1490 Weight 181.4 kg Intake: IV 50 / 50 0 / 0 Flexbumin 25% Inj 50 ML @ 60 50 / 50 0 / 0 mls/hr IV.SIG Q12H [facility] Rx#: [id number] Oral 960 / 960 480 / 480 Anesthesia Amount 500 / 500 0 / 0 Other 500 / 500 0 / 0 Output: Urine 2900 / 2900 1949 / 1949 Stool 0 / 0 0 / 0 Urine/Stool Mix 0 / 0 0 / 0 Estimated Blood Loss Other: Post Void Residual 0 0 # Voids 5 3 # Incontinent Voids 0 0 # Urine Diapers 0 0 Date of Last Bowel Movement 09/07/17 09/09/17 # Bowel Movements 0 1 GENERAL: WBWn NAD SKIN: Warm and dry. HEAD: Normocephalic. EYES: No scleral icterus. No injection or drainage. NECK: Supple, trachea midline. No JVD or lymphadenopathy. CARDIOVASCULAR: Regular rate and rhythm without murmurs, gallops, or rubs. RESPIRATORY: Breath sounds equal bilaterally. No accessory muscle use. GASTROINTESTINAL: Abdomen soft, non-tender, nondistended. MUSCULOSKELETAL: No cyanosis, ++ edema. Scrotal swelling BACK: Nontender without obvious deformity. No CVA tenderness. Assessment and Plan - Plan IMPRESSION: 1. Hypercapnic respiratory insufficiency. 2. Chronic obstructive pulmonary disease. 3. Obstructive sleep apnea. 4. Achilles tendon repair and leg infection. 5. Diabetes mellitus. 5. Scrotal edema. PLAN: Aerosol nebs Supplement 02 Encourage to use CPAP at night Cont Abx SQ Lovenox Bumex drip monitor susannah DE LEÓN Pt and his at BS
[2017-09-10] MEDS: Nystatin Liq 500,000 UNIT/5 ML UDC SWISH-SWAL SCH ×4 (13:46→21:26)
--- NOTE | 2017-09-10 18:07 | P.PNIM ---
Subjective Interval history: No new complaints. Physical Exam Vital signs: Vital Signs 09/09/17 20:00 09/09/17 20:18 09/09/17 20:39 Temperature 98.3 F Pulse Rate 92 H 97 H Respiratory Rate 24 18 16 Blood Pressure 151/77 H Pulse Oximetry 97 97 09/09/17 22:00 09/10/17 00:00 09/10/17 00:03 Temperature 98.5 F Pulse Rate 92 H 95 H Respiratory Rate 14 26 H Blood Pressure 154/72 H Pulse Oximetry 97 09/10/17 00:41 09/10/17 02:00 09/10/17 03:36 Temperature Pulse Rate 93 H 91 H Respiratory Rate 17 Blood Pressure Pulse Oximetry 95 09/10/17 04:00 09/10/17 04:46 09/10/17 06:00 Temperature Pulse Rate 88 90 Respiratory Rate 15 18 Blood Pressure 144/67 H Pulse Oximetry 94 L 09/10/17 08:00 09/10/17 09:44 09/10/17 10:00 Temperature 98.0 F Pulse Rate 84 84 Respiratory Rate 14 Blood Pressure 133/77 Pulse Oximetry 09/10/17 10:40 09/10/17 10:41 09/10/17 12:00 Temperature 98.5 F Pulse Rate 84 80 Respiratory Rate 20 Blood Pressure 124/65 Pulse Oximetry 96 09/10/17 13:44 09/10/17 14:00 09/10/17 16:00 Temperature Pulse Rate 88 82 Respiratory Rate 14 16 Blood Pressure 131/67 Pulse Oximetry 09/10/17 17:44 Temperature Pulse Rate 81 Respiratory Rate 16 Blood Pressure Pulse Oximetry Intake & Output 09/09/17 09/10/17 09/10/17 18:59 06:59 18:59 Intake Total 2009 480 / 480 Output Total 2920 / 2920 1969 / 1969 Balance -910 / -910 -1490 / -1490 Weight 181.4 kg Intake: IV 50 / 50 0 / 0 Flexbumin 25% Inj 50 ML @ 60 50 / 50 0 / 0 mls/hr IV.SIG Q12H [facility] Rx#: [id number] Oral 960 / 960 480 / 480 Anesthesia Amount 500 / 500 0 / 0 Other 500 / 500 0 / 0 Output: Urine 2900 / 2900 1949 / 1949 Stool 0 / 0 0 / 0 Urine/Stool Mix 0 / 0 0 / 0 Estimated Blood Loss Other: Post Void Residual 0 0 # Voids 5 3 # Incontinent Voids 0 0 # Urine Diapers 0 0 Date of Last Bowel Movement 09/07/17 09/09/17 09/09/17 # Bowel Movements 0 1 Narrative: General: NAD, AAOx3 Cardiac: regular Chest: Decrease air entry at bases, with occ. rhonchi. Abd: +BS, soft, distended, obese, nontender Ext: Anasarca flanks/lower ext/scrotum, right leg splinted Results - Labs CBC & Chem 7: 09/11/17 03:52 09/11/17 13:30 - Procedures Right posterior Achilles incision and drainage 08/24/[address] Hull Assessment and Plan - Assessment (1) Rupture of right Achilles tendon Code(s): S86.011A - Strain of right Achilles tendon, initial encounter Status : Acute Plan: Open Achilles rupture, right - Recent admission with Achilles rupture - Pt underwent open repair of right Achilles tendon rupture with flexor hallucis longus tendon transfer and gastrocnemius recession, right lower extremity on 07/24/[address] Murillo. - Per podiatry, pt will need to be strict non-weight bearing for 6-8 weeks. - Pt was noted to have increased swelling and pain in the RLE on 08/04 - LE Doppler US (08/04) --> Is negative for DVT - Refused dc to snf and was noncompliant with weight bearing instructions. - Pt was readmitted with infection at operative site on 08/16 - He was seen by podiatry in clinic on 08/16 and sent to ED - MRI right ankle (08/16): 1. Postoperative change at the distal Achilles and calcaneus. Increased signal within the posterior calcaneus can all be consistent with postoperative change. It would be difficult to rule out osteomyelitis. 2. Fluid seen around the Achilles tendon. More superiorly in the mid lower leg, there is a larger fluid collection with peripheral enhancement. There is also a thinner fluid collection seen more superiorly in the proximal lower leg around the lateral aspect of the soleus muscle. These fluid collections could be postoperative seromas. An abscess could have a similar appearance. - vanco and Zosyn (08/17) - Rocephin (08/17 - present) - Rocephin stop date 10/07/17 - Comgmt with ID & Podiatry - Pt had a previous outpt culture taken on 08/11 which grew out Enterobacter cloacae - Right posterior Achilles incision and drainage 08/24/[address] Hull - Intraoperative wound Cx (08/24) --> Enterobacter cloacae - Plan to DC to SNF/rehab following hospitalization to ensure non-weight bearing of RLE and good recovery. Pt at risk for Right BKA. - The case was discussed with [facility]. Copay for SNF was defaulted. CM consulted. Pt agreeable for SNF but need to get accepting facility - Pt not ready for dc yet - Discussed dc abx with ID. orders written Volume overload Anasarca/edema - Pt was moved to ICU after Halicat and hypoxia on 08/31. Pt had received small dose of morphine a few hrs before the event. He was refusing bipap but now agreeable. Pt being followed by Dr Sawyer. - He continues with severe anasarca/lower ext edema and scrotal swelling. Also he has sleep apnea/hypoventilation and has hypoalbuminemia. - Procardia lowered to 30mg BID on 08/31, BP is stable. - Had right heart cath on last admission revealing increased right heart pressure. He has also some mild systolic dysfunction with EF 45% - Nephrology was consulted for evaluation of massive volume overload. - Pt was on Bumex gtt and diuresed 25L with about 20L negative balance. This was held when cr trended up, but now back on IV Lasix per renal. - despite high dose IV lasix, pt remains significantly volume overloaded - continue bumex gtt, 0.25 mg/H, 7050ml of urine out in the past 24 hours, - 5250 fluid balance over the past 24 hours - creatinine 1.32 -> 1.38 -> 1.31, 1.55 (09/09), 1.71 (09/10) - stop Bumex gtt for now, likely resume 09/11 - repeat BMP in AM - Pt continues to exhibit significant clinical volume overload and is NOT yet ready for discharge. - nephrology also following recommending and reanl bx to evaluate for FSGS once patient stable - restrict fluids to 1.5 liters daily - Cont. to observe and once fluid issue stable will dc to SNF - DVT prophylaxis Obesity hypoventilation syndrome Hypercapnic respiratory insufficiency Obesity hypoventilation syndrome COPD - 2-D echocardiogram 07/23/17: - The left ventricular systolic function is mildly reduced with an estimated ejection fraction in the range of 45- 50%. - Mild infero-posterior hypokinesis - Mild concentric left ventricular hypertrophy. - The left atrial size is moderately dilated. - RHC completed (07/28) --> Class 2 Pulm HTN, PCW 23 - No Right heart strain, so sildenafil was stopped - Pt is noncompliant with CPAP - Pt sedated overnight - decrease flexeril to 5mg q8h prn - decrease norco to q6h prn - encourage pt to wear CPAP at night. COPD (chronic obstructive pulmonary disease) - chronic does not appear to be in acute exacerbation - Pt requiring 3-4L of supplemental O2 - Repeat CXR in AM Diabetes - Cont OHA and SSI. - Titrate as needed HTN (hypertension) - cont current BP meds, Cozaar 50mg q12H, Hydralazine 50mg TID, Coreg 25mg BID - May try to lower or stop Procardia. - Hydralazine PO PRN Anemia - Pts H/H has slowly been declining. No noted active GIB - During the last admission the pt was transfused with 2 units PRBCs (08/10) - During recent admission pt underwent evaluation with EGD/Colonoscopy (08/11/17 ) with Dr. Mccormick - int/ext hemorrhoids - sigmoid diverticulosis - esophagitis - gastric biopsies taken, results pending - Repeat labs on 08/21/17 with Hgb 8.3/Hct 24.6 -> 7.7/23.5 (08/24) -> 7.8/24.2, 7.6 (08/27), 8.5 (08/28), 7.7 (09/07), 7.9 (09/08) - Hg 7.9 (09/10) - Iron studies 08/08/17 Iron 26, TIBC 244, % saturation 10.7, ferritin 246 - ferritin 154 (08/27), retic 82 (08/27); b12 515, folate 7.9 (08/26) - case informally d/w Hematology - since ferritin > 100, unlikely d/t ANAHI - 2 units PRBCs (08/27/17) - observe - repeat CBC in AM CAD (coronary artery disease) Recent history of pulmonary embolism - Patient had a PE approximately 8 months ago and was on Coumadin for until the cardiac cauterization 06/17/17 - Patient with recent cardiac catheterization with PCI 06/17/17 - After catheterization patient's Coumadin was DC'd and he was started on Aspirin and Plavix - Continue patient's Aspirin 81 mg daily, Plavix 75 mg PO daily, Atorvastatin 40 mg PO QHS and Coreg BID Anxiety and depression - Cont. Paxil 20mg daily (1) Rupture of right Achilles tendon Qualifiers: Encounter type: subsequent encounter Qualified Code(s): S86.011D - Strain of right Achilles tendon, subsequent encounter
[2017-09-10] MEDS: Insulin NovoLOG Aspart Correctional Sugar Inj SQ SCH ×4 (18:11→21:26)
--- NOTE | 2017-09-10 20:40 | XR ---
EXAM DATE: 09/10/2017 8:34 PM EDT AGE/SEX: 47 years / Male INDICATIONS: Right knee pain. Patient fell off of ladder. CLINICAL DATA: This is the patient's subsequent encounter. Patient reports that signs and symptoms h ave been present for 4 - 6 days and indicates a pain score of 6/10. MEDICAL/SURGICAL HISTORY: None. None. COMPARISON: [facility], KNEE RIGHT COMPLETE (4VWS), 08/09/2017. . FINDINGS: Bony structures are intact and in normal alignment. Joints are intact without dislocation or signifi cant arthropathy. Osseous density is normal. Soft tissues are unremarkable. No radiopaque foreign bodies seen. CONCLUSION: Unremarkable exam. Electronically signed by: Sean Young MD 09/10/2017 8:39 PM EDT
[2017-09-11] MEDS: LORazepam 0.5 MG Tablet PO PRN (01:27)
[2017-09-11] MEDS: Sodium Chloride 0.65% Nasal Spray 45 ML Bottle EACH NARE SCH ×4 (04:48→20:28)
[2017-09-11 05:06] LABS: Baso # (Auto) 0.1 th/mm3 (0.0-0.2); Baso % (Auto) 1.1 % (0.0-2.0); Eos # (Auto) 0.2 th/mm3 (0.0-0.4); Eos % (Auto) 3.1 % (0.0-4.0); Hematocrit 23.7 % (39.0-51.0); Hemoglobin 7.7 gm/dL (13.0-17.0); Lymph % (Auto) 17.9 % (9.0-44.0); Mean Corpuscular HGB Conc 32.4 % (32.0-36.0); Mean Corpuscular Hemoglobin 25.8 pg (27.0-34.0); Mean Corpuscular Volume 79.7 fL (80.0-100.0); Mean Platelet Volume 7.5 fL (7.0-11.0); Mono # (Auto) 0.7 th/mm3 (0.0-0.9); Mono % (Auto) 13.6 % (0.0-8.0); Neut # (Auto) 3.5 th/mm3 (1.8-7.7); Neut % (Auto) 64.3 % (16.0-70.0); Platelet Count 228 th/mm3 (150-450); Red Blood Count 2.97 mil/mm3 (4.50-5.90); Red Cell Distribution Width 15.6 % (11.6-17.2); White Blood Count 5.5 th/mm3 (4.0-11.0)
[2017-09-11 05:22] LABS: Calcium 8.4 mg/dL (8.5-10.1); Carbon Dioxide 35.3 meq/L (21.0-32.0); Magnesium 1.6 mg/dL (1.5-2.5); Potassium 4.7 meq/L (3.5-5.1); Uric Acid 8.5 mg/dl (2.6-7.2)
[2017-09-11] MEDS: Gabapentin 300 MG Capsule PO SCH ×3 (07:01→22:18)
[2017-09-11] MEDS: Glimepiride 2 MG Tablet PO SCH ×2 (07:40→17:00)
[2017-09-11] MEDS: Insulin NovoLOG Aspart Correctional Sugar Inj SQ SCH ×4 (07:45→20:27)
[2017-09-11] MEDS: Nystatin Liq 500,000 UNIT/5 ML UDC SWISH-SWAL SCH ×4 (09:09→20:26)
[2017-09-11] MEDS: Carvedilol 12.5 MG Tablet PO SCH ×2 (09:10→20:26)
[2017-09-11] MEDS: Heparin Central Flush 100 UNIT/ML 5 ML Vial IV.FLUSH SCH (09:10)
[2017-09-11] MEDS: Allopurinol 100 MG Tablet PO SCH (09:10)
[2017-09-11] MEDS: Senna/Docusate Sodium 8.6/50 MG Tablet PO SCH ×2 (09:14→20:28)
[2017-09-11] MEDS: hydrALAZINE 25 MG Tablet PO SCH ×3 (10:15→18:17)
[2017-09-11] MEDS: Albumin Human 25% Inj 50 ML IV.SIG SCH ×2 (10:47→22:18)
--- NOTE | 2017-09-11 11:06 | P.PNPL ---
Subjective Interval history: 47 YOWM with Achelis tendon repair,JUDY,COPD Has huge scrotal swelling Diureasing Up in chair, did use CPAP last night on Bumex drip at BS Feels swelling decreasing Cr increasing Physical Exam Vital signs: Vital Signs 09/10/17 12:00 09/10/17 13:44 09/10/17 14:00 Temperature 98.5 F Pulse Rate 80 88 Respiratory Rate 14 Blood Pressure 124/65 Pulse Oximetry 09/10/17 16:00 09/10/17 17:44 09/10/17 18:00 Temperature Pulse Rate 82 81 81 Respiratory Rate 16 16 Blood Pressure 131/67 Pulse Oximetry 09/10/17 20:00 09/10/17 22:00 09/11/17 00:00 Temperature 97.9 F 98.8 F Pulse Rate 86 93 H 94 H Respiratory Rate 21 14 Blood Pressure 130/69 131/65 Pulse Oximetry 98 97 09/11/17 00:15 09/11/17 02:00 09/11/17 04:00 Temperature 98.6 F Pulse Rate 93 H 96 H 96 H Respiratory Rate 20 Blood Pressure 135/68 Pulse Oximetry 95 09/11/17 04:08 09/11/17 06:00 09/11/17 08:00 Temperature 98.2 F Pulse Rate 96 H 100 H 109 H Respiratory Rate 22 25 H Blood Pressure 155/90 H Pulse Oximetry 96 09/11/17 10:00 09/11/17 10:15 Temperature Pulse Rate 100 H Respiratory Rate 18 Blood Pressure Pulse Oximetry Intake & Output 09/10/17 09/11/17 09/11/17 18:59 06:59 18:59 Intake Total 530 / 530 1130 / 1130 Output Total 1969 / 1969 5345 / 5345 Balance -1440 / -1440 -4215 / -4215 Weight 181.4 kg Intake: IV 50 / 50 50 / 50 Flexbumin 25% Inj 50 ML @ 60 50 / 50 50 / 50 mls/hr IV.SIG Q12H [facility] Rx#: [id number] Oral 480 / 480 1080 / 1080 Anesthesia Amount 0 / 0 0 / 0 Other 0 / 0 0 / 0 Output: Urine 1949 / 1949 5325 / 5325 Stool 0 / 0 0 / 0 Urine/Stool Mix 0 / 0 0 / 0 Estimated Blood Loss 20 20 / 20 Other: Post Void Residual 0 0 # Voids 3 4 # Incontinent Voids 0 0 # Urine Diapers 0 0 Date of Last Bowel Movement 09/09/17 09/10/17 09/11/17 # Bowel Movements 1 0 GENERAL: Obese WM,NAD SKIN: Warm and dry. HEAD: Normocephalic. EYES: No scleral icterus. No injection or drainage. NECK: Supple, trachea midline. No JVD or lymphadenopathy. CARDIOVASCULAR: Regular rate and rhythm without murmurs, gallops, or rubs. RESPIRATORY: Breath sounds equal bilaterally. No accessory muscle use. GASTROINTESTINAL: Abdomen soft, non-tender, nondistended. MUSCULOSKELETAL: No cyanosis, or edema. BACK: Nontender without obvious deformity. No CVA tenderness. Assessment and Plan - Plan IMPRESSION: 1. Hypercapnic respiratory insufficiency. 2. Chronic obstructive pulmonary disease. 3. Obstructive sleep apnea. 4. Achilles tendon repair and leg infection. 5. Diabetes mellitus. 5. Scrotal edema. PLAN: Aerosol nebs Supplement 02 Encourage to use CPAP at night Cont Abx SQ Lovenox Bumex drip DW Pt and his at BS
--- NOTE | 2017-09-11 11:54 | P.PNPOD ---
Subjective Interval history: Patient seen bedside with present. Reports minimal pain to posterior Achilles. Physical Exam Vital signs: Vital Signs 09/10/17 12:00 09/10/17 13:44 09/10/17 14:00 Temperature 98.5 F Pulse Rate 80 88 Respiratory Rate 14 Blood Pressure 124/65 Pulse Oximetry 09/10/17 16:00 09/10/17 17:44 09/10/17 18:00 Temperature Pulse Rate 82 81 81 Respiratory Rate 16 16 Blood Pressure 131/67 Pulse Oximetry 09/10/17 20:00 09/10/17 22:00 09/11/17 00:00 Temperature 97.9 F 98.8 F Pulse Rate 86 93 H 94 H Respiratory Rate 21 14 Blood Pressure 130/69 131/65 Pulse Oximetry 98 97 09/11/17 00:15 09/11/17 02:00 09/11/17 04:00 Temperature 98.6 F Pulse Rate 93 H 96 H 96 H Respiratory Rate 20 Blood Pressure 135/68 Pulse Oximetry 95 09/11/17 04:08 09/11/17 06:00 09/11/17 08:00 Temperature 98.2 F Pulse Rate 96 H 100 H 109 H Respiratory Rate 22 25 H Blood Pressure 155/90 H Pulse Oximetry 96 09/11/17 10:00 09/11/17 10:15 09/11/17 11:42 Temperature Pulse Rate 100 H 104 H Respiratory Rate 18 18 Blood Pressure Pulse Oximetry Intake & Output 09/10/17 09/11/17 09/11/17 18:59 06:59 18:59 Intake Total 530 / 530 1130 / 1130 Output Total 1969 / 1969 5345 / 5345 Balance -1440 / -1440 -4215 / -4215 Weight 181.4 kg Intake: IV 50 / 50 50 / 50 Flexbumin 25% Inj 50 ML @ 60 50 / 50 50 / 50 mls/hr IV.SIG Q12H [facility] Rx#: [id number] Oral 480 / 480 1080 / 1080 Anesthesia Amount 0 / 0 0 / 0 Other 0 / 0 0 / 0 Output: Urine 1949 5325 / 5325 Stool 0 / 0 0 / 0 Urine/Stool Mix 0 / 0 0 / 0 Estimated Blood Loss Other: Post Void Residual 0 0 # Voids 3 4 # Incontinent Voids 0 0 # Urine Diapers 0 0 Date of Last Bowel Movement 09/09/17 09/10/17 09/11/17 # Bowel Movements 1 0 Narrative: Sutures intact to right posterior Achilles, serous drainage noted mild in nature. Maceration noted to incision line. Previous incision well coapted and fully epithelialized. Medications and Allergies Active Medications: Active Medications Acetaminophen (Tylenol) 650 mg PO Q6H PRN PRN Reason: pain 1-5 Hydrocodone Bitart/Acetaminophen (Sawyer 10/325) 1 tab PO Q4H PRN PRN Reason: PAIN 6-10;IF UNABLE TO TAKE PO Last Admin: 09/11/17 10:15 Dose: 1 tab Al Hydroxide/Mg Hydroxide (Milk Of [place]ar [place]) 30 ml PO Q12H PRN PRN Reason: MILD CONSTIPATION Albuterol (Duoneb Neb ([facility])) 1 ampul NEB Q4HR NEB [facility] Last Admin: 09/11/17 11:43 Dose: 1 ampul Allopurinol (Zyloprim) 100 mg PO DAILY [facility] Last Admin: 09/11/17 09:10 Dose: 100 mg Aspirin (Ecotrin) 81 mg PO DAILY [facility] Last Admin: 09/11/17 09:09 Dose: 81 mg Atorvastatin Calcium (Lipitor) 40 mg PO HS [facility] Last Admin: 09/10/17 21:26 Dose: 40 mg Benzocaine/Menthol (Chloraseptic Sore Throat Lozenge) 1 lozenge BUCCAL Q2HR PRN PRN Reason: sore throat Bisacodyl (Dulcolax Supp) 10 mg RECTAL DAILY PRN PRN Reason: SEVERE CONSTIPATION Carvedilol (Coreg) 25 mg PO BID [facility] Last Admin: 09/11/17 09:10 Dose: 25 mg Clopidogrel Bisulfate (Plavix) 75 mg PO DAILY [facility] Last Admin: 09/11/17 09:10 Dose: 75 mg Cyclobenzaprine HCl (Flexeril) 5 mg PO Q8H PRN PRN Reason: MUSCLE SPASM Dextrose (D50w Vial) 50 ml IV.PUSH UNSCH PRN PRN Reason: PER HYPOGLYCEMIA PROTOCOL Enoxaparin Sodium (Lovenox Inj) 40 mg SQ Q24H [facility] Last Admin: 09/10/17 23:57 Dose: 40 mg Gabapentin (Neurontin) 300 mg PO Q8HR [facility] Last Admin: 09/11/17 07:01 Dose: 300 mg Glimepiride (Amaryl) 4 mg PO BIDAC [facility] Glucagon (Glucagon Inj) 1 mg OTHER PRN PRN PRN Reason: for Hypoglycemia Protocol Heparin Sodium (Porcine) (Heparin Central Flush) 0 unit IV.FLUSH DAILY [facility] Last Admin: 09/11/17 09:10 Dose: 500 unit Heparin Sodium (Porcine) (Heparin Central Flush) 0 unit IV.FLUSH PRN PRN PRN Reason: Flush PICC Line Hydralazine HCl (Apresoline) 50 mg PO TID [facility] Last Admin: 09/11/17 10:15 Dose: 50 mg Hydrocortisone Acetate (Nutracort 1% Oint) 1 applicatio TOPICAL BID [facility] Stop: 09/20/17 08:00 Last Admin: 09/11/17 09:11 Dose: 1 applicatio Ceftriaxone Sodium 2,000 mg/ (Sodium Chloride) 100 mls @ 200 mls/hr IV.SIG Q24H [facility] Last Admin: 09/10/17 21:24 Dose: 200 mls/hr Albumin Human (Flexbumin 25% Inj) 50 mls @ 60 mls/hr IV.SIG Q12H [facility] Last Admin: 09/11/17 10:47 Dose: 50 mls/hr Bumetanide (Bumex Inj) 25 mg in 100 mls @ 2 mls/hr IV.CONT .Q24H [facility] Insulin Aspart (Novolog Insulin Suppl Scale Inj) 0 unit SQ ACHS [facility]; Protocol Last Admin: 09/11/17 07:45 Dose: 4 unit Lactulose (Lactulose Liq) 30 ml PO DAILY PRN PRN Reason: SEVERE CONSTIPATION Lorazepam (Ativan) 0.5 mg PO Q6H PRN PRN Reason: ANXIETY Last Admin: 09/11/17 01:27 Dose: 0.5 mg Losartan Potassium (Cozaar) 50 mg PO Q12HR [facility] Last Admin: 09/11/17 09:09 Dose: 50 mg Metolazone (Zaroxolyn) 2.5 mg PO BID [facility] Last Admin: 09/11/17 09:10 Dose: 2.5 mg Metoprolol Tartrate (Lopressor Inj) 5 mg IV.PUSH Q6H PRN PRN Reason: Sbp>170, Dbp>90 Naloxone HCl (Narcan Inj) 0.4 mg IV.PUSH UNSCH PRN PRN Reason: SEE LABEL COMMENTS Nifedipine (Procardia Xl) 30 mg PO BID [facility] Last Admin: 09/11/17 09:10 Dose: 30 mg Nystatin (Mycostatin Liq) 5 ml SWISH-SWAL QID [facility] Last Admin: 09/11/17 09:09 Dose: 5 ml Pantoprazole Sodium (Protonix) 40 mg PO DAILY [facility] Last Admin: 09/11/17 09:14 Dose: 40 mg Paroxetine HCl (Paxil) 20 mg PO DAILY [facility] Last Admin: 09/11/17 09:14 Dose: 20 mg Potassium Chloride (K-Dur) 20 meq PO BID [facility] Last Admin: 09/11/17 09:14 Dose: 20 meq Senna/Docusate Sodium (Ely-Colace) 1 tab PO BID [facility] Last Admin: 09/11/17 09:14 Dose: 1 tab Sennosides (Senokot) 17.2 mg PO Q12H PRN PRN Reason: MODERATE CONSTIPATION Sodium Chloride (Ns Flush) 2 ml IV.FLUSH UNSCH PRN PRN Reason: FLUSH AFTER USING IV ACCESS Last Admin: 09/03/17 08:58 Dose: 2 ml Sodium Chloride (Ns Flush) 2 ml IV.FLUSH BID [facility] Last Admin: 09/11/17 09:11 Dose: 2 ml Sodium Chloride (Ns Flush) 0 ml IV.FLUSH DAILY [facility] Last Admin: 09/11/17 09:11 Dose: 10 ml Sodium Chloride (Ns Flush) 0 ml IV.FLUSH PRN PRN PRN Reason: FLUSH AFTER USING IV ACCESS Sodium Chloride (Ns Flush) 0 ml IV.FLUSH PRN PRN PRN Reason: Flush After Blood Draws Sodium Chloride ([place] Nasal [place]) 1 spray EACH NARE Q6H [facility] Last Admin: 09/11/17 09:11 Dose: 1 spray Temazepam (Restoril) 15 mg PO HS PRN PRN Reason: INSOMNIA Last Admin: 08/29/17 21:47 Dose: 15 mg Throat Lozenges (Chloraseptic [place]) 2 spray OROPHARYNG Q2H PRN PRN Reason: sore throat Allergies Allergy/AdvReac Type Severity Reaction Status Date / Time codeine Allergy Severe Itching Verified 08/16/17 19:14 quetiapine Allergy Intermediate Hallucinati Verified 08/16/17 19:14 ons tramadol Allergy Unknown UNKNOWN Verified 08/20/17 10:36 clonidine AdvReac Severe ARNDT, dry Verified 08/20/17 10:36 mouth, "felt drunk" lisinopril AdvReac Unknown abnormal Verified 08/16/17 19:14 labs K level Home Medications Medication Instructions Recorded Confirmed Type allopurinol 100 mg PO DAILY 08/20/17 08/20/17 History aspirin 81 mg PO DAILY 08/20/17 08/20/17 History atorvastatin 40 mg PO HS 08/20/17 08/20/17 History carvedilol 25 mg PO BID 08/20/17 08/20/17 History clindamycin HCl 300 mg PO Q6H 08/20/17 08/20/17 History clopidogrel 75 mg PO DAILY 08/20/17 08/20/17 History furosemide 40 mg PO DAILY 08/20/17 08/20/17 History gabapentin 300 mg PO Q8H 08/20/17 08/20/17 History glimepiride 2 mg PO BIDAC 08/20/17 08/20/17 History hydralazine 50 mg PO TID 08/20/17 08/20/17 History hydrocodone-acetaminophen 1 tab PO Q4H PRN 08/20/17 08/20/17 History insulin aspart U-100 [Novolog 1 sliding scale dose SUB-Q 08/20/17 08/20/17 History U-100 Insulin aspart] DIRECTED losartan 50 mg PO Q12H 08/20/17 08/20/17 History metformin 750 mg PO BID 08/20/17 08/20/17 History nifedipine 60 mg PO Q12H 08/20/17 08/20/17 History nystatin 5 ml PO QID 08/20/17 08/20/17 History pantoprazole 40 mg PO DAILY 08/20/17 08/20/17 History paroxetine HCl 20 mg PO DAILY 08/20/17 08/20/17 History Results - Labs CBC & Chem 7: 09/11/17 03:52 09/11/17 03:52 Laboratory Results - last 24 hr 09/10/17 09/10/17 09/11/17 16:38 19:53 03:52 WBC RBC Hgb Hct MCV MCH MCHC RDW Plt Count MPV Neut % (Auto) Lymph % (Auto) [place] % (Auto) Eos % (Auto) Baso % (Auto) Neut # (Auto) Lymph # (Auto) [place] # (Auto) Eos # (Auto) Baso # (Auto) WBC Differential Differential Comment Sodium 136 Potassium 4.7 Chloride 95 L Carbon Dioxide 35.3 H Anion Gap 6 BUN 37 H Creatinine 1.86 H Estimated GFR 39 L POC Glucose 251 H 186 H Random Glucose 177 H Uric Acid 8.5 H Calcium 8.4 L Magnesium 1.6 09/11/17 09/11/17 03:52 07:39 WBC 5.5 RBC 2.97 L Hgb 7.7 L Hct 23.7 L MCV 79.7 L MCH 25.8 L MCHC 32.4 RDW 15.6 Plt Count 228 MPV 7.5 Neut % (Auto) 64.3 Lymph % (Auto) 17.9 [place] % (Auto) 13.6 H Eos % (Auto) 3.1 Baso % (Auto) 1.1 Neut # (Auto) 3.5 Lymph # (Auto) 1.0 [place] # (Auto) 0.7 Eos # (Auto) 0.2 Baso # (Auto) 0.1 WBC Differential . Differential Comment Auto diff final Sodium Potassium Chloride Carbon Dioxide Anion Gap BUN Creatinine Estimated GFR POC Glucose 202 H Random Glucose Uric Acid Calcium Magnesium - Imaging Impressions Knee X-Ray 09/10/17 00:00 CONCLUSION: Unremarkable exam. - Procedures Right posterior Achilles incision and drainage 08/24/[address] Hull Assessment and Plan - Assessment (1) Abscess of right lower leg Code(s): L02.415 - Cutaneous abscess of right lower limb Status: Acute (2) Rupture of right Achilles tendon Code(s): S86.011A - Strain of right Achilles tendon, initial encounter Status : Acute - Plan 47-year-old male status post Achilles tendon repair with gastroc lengthening to right lower extremity with distal draining sinus Status post right Achilles incision and drainage date of surgery 08/24 Patient examined evaluated with all questions answered Nurse present bedside Wound care to consist of Maxorb AG to be placed every other day with Mepilex, cast padding and posterior splint Patient to remain nonweightbearing to right lower extremity He is to elevate right lower extremity at all times Dressings changed Patient to follow-up with Dr. Delfino Murillo once discharged While patient is in house we will continue to follow (2) Rupture of right Achilles tendon Qualifiers: Encounter type: subsequent encounter Qualified Code(s): S86.011D - Strain of right Achilles tendon, subsequent encounter
--- NOTE | 2017-09-11 12:31 | P.PNNP ---
Subjective Interval history: Patient is diuresing well he overall feels better Physical Exam Vital signs: Vital Signs 09/10/17 13:44 09/10/17 14:00 09/10/17 16:00 Temperature Pulse Rate 88 82 Respiratory Rate 14 16 Blood Pressure 131/67 Pulse Oximetry 09/10/17 17:44 09/10/17 18:00 09/10/17 20:00 Temperature 97.9 F Pulse Rate 81 81 86 Respiratory Rate 16 21 Blood Pressure 130/69 Pulse Oximetry 98 09/10/17 22:00 09/11/17 00:00 09/11/17 00:15 Temperature 98.8 F Pulse Rate 93 H 94 H 93 H Respiratory Rate 14 20 Blood Pressure 131/65 Pulse Oximetry 97 09/11/17 02:00 09/11/17 04:00 09/11/17 04:08 Temperature 98.6 F Pulse Rate 96 H 96 H 96 H Respiratory Rate 22 Blood Pressure 135/68 Pulse Oximetry 95 09/11/17 06:00 09/11/17 08:00 09/11/17 10:00 Temperature 98.2 F Pulse Rate 100 H 109 H 100 H Respiratory Rate 25 H Blood Pressure 155/90 H Pulse Oximetry 96 09/11/17 10:15 09/11/17 11:42 Temperature Pulse Rate 104 H Respiratory Rate 18 18 Blood Pressure Pulse Oximetry Intake & Output 09/10/17 09/11/17 09/11/17 18:59 06:59 18:59 Intake Total 530 / 530 1130 / 1130 Output Total 1969 / 1969 5345 / 5345 Balance -1440 / -1440 -4215 / -4215 Weight 181.4 kg Intake: IV 50 / 50 50 / 50 Flexbumin 25% Inj 50 ML @ 60 50 / 50 50 / 50 mls/hr IV.SIG Q12H CATIE Rx#: [id number] Oral 480 / 480 1080 / 1080 Anesthesia Amount 0 / 0 0 / 0 Other 0 / 0 0 / 0 Output: Urine 1949 5325 / 5325 Stool 0 / 0 0 / 0 Urine/Stool Mix 0 / 0 0 / 0 Estimated Blood Loss Other: Post Void Residual 0 0 # Voids 3 4 # Incontinent Voids 0 0 # Urine Diapers 0 0 Date of Last Bowel Movement 09/09/17 09/10/17 09/11/17 # Bowel Movements 1 0 - Constitutional no acute distress - Routine HEENT Exam Head: Present: normocephalic Eye: Present: EOMI - Routine Neck Exam Present: supple - Routine Respiratory Exam Present: CTA bilaterally - Routine Abdominal Exam Present: soft, distended - Routine Extremities Exam Present: edema Assessment and Plan - Assessment (1) Acute kidney injury superimposed on chronic kidney disease Code(s): N17.9 - Acute kidney failure, unspecified; N18.9 - Chronic kidney disease, unspecified Status: Acute - Plan Patient is seen responding to Bumex drip at 0.5 mg/h urine output is 7.2 l, Zaroxolyn 2.5 mg twice daily, diuresing well edema is slowly improving Creatinine is slightly elevated I decreased Bumex drip to 0.25 mg/h Follow BMP Dr. Steele to follow
[2017-09-11] MEDS: Bumetanide Inj 25 MG/100 ML BAG IV.CONT SCH (13:46)
[2017-09-11 14:54] LABS: Calcium 8.7 mg/dL (8.5-10.1); Carbon Dioxide 34.1 meq/L (21.0-32.0); Potassium 4.8 meq/L (3.5-5.1)
--- NOTE | 2017-09-11 16:16 | P.PNIM ---
Subjective Interval history: No new complaints. Physical Exam Vital signs: Vital Signs 09/10/17 17:44 09/10/17 18:00 09/10/17 20:00 Temperature 97.9 F Pulse Rate 81 81 86 Respiratory Rate 16 21 Blood Pressure 130/69 Pulse Oximetry 98 09/10/17 22:00 09/11/17 00:00 09/11/17 00:15 Temperature 98.8 F Pulse Rate 93 H 94 H 93 H Respiratory Rate 14 20 Blood Pressure 131/65 Pulse Oximetry 97 09/11/17 02:00 09/11/17 04:00 09/11/17 04:08 Temperature 98.6 F Pulse Rate 96 H 96 H 96 H Respiratory Rate 22 Blood Pressure 135/68 Pulse Oximetry 95 09/11/17 06:00 09/11/17 08:00 09/11/17 10:00 Temperature 98.2 F Pulse Rate 100 H 109 H 100 H Respiratory Rate 25 H Blood Pressure 155/90 H Pulse Oximetry 96 09/11/17 10:15 09/11/17 11:42 09/11/17 12:00 Temperature 99.0 F Pulse Rate 104 H 98 H Respiratory Rate 18 18 25 H Blood Pressure 140/72 Pulse Oximetry 98 09/11/17 14:00 09/11/17 15:21 09/11/17 16:00 Temperature 98.2 F Pulse Rate 89 90 91 H Respiratory Rate 15 Blood Pressure 134/66 Pulse Oximetry 97 Intake & Output 09/10/17 09/11/17 09/11/17 18:59 06:59 18:59 Intake Total 530 / 530 1130 / 1130 50 / 50 Output Total 1969 5345 / 5345 Balance -1440 / -1440 -4215 / -4215 50 / 50 Weight 181.4 kg Intake: IV 50 / 50 50 / 50 50 / 50 Flexbumin 25% Inj 50 ML @ 60 50 / 50 50 / 50 50 / 50 mls/hr IV.SIG Q12H CATIE Rx#: [id number] Oral 480 / 480 1080 / 1080 Anesthesia Amount 0 / 0 0 / 0 Other 0 / 0 0 / 0 Output: Urine 1949 5325 / 5325 Stool 0 / 0 0 / 0 Urine/Stool Mix 0 / 0 0 / 0 Estimated Blood Loss 20 / 20 20 / 20 Other: Post Void Residual 0 0 # Voids 3 4 # Incontinent Voids 0 0 # Urine Diapers 0 0 Date of Last Bowel Movement 09/09/17 09/10/17 09/11/17 # Bowel Movements 1 0 Narrative: General: NAD, AAOx3 Cardiac: regular Chest: Decrease air entry at bases, with occ. rhonchi. Abd: +BS, soft, distended, obese, nontender Ext: Anasarca flanks/lower ext/scrotum, right leg splinted Results - Labs CBC & Chem 7: 09/11/17 03:52 09/11/17 13:30 - Imaging Needle Aspiration US 08/22/17 00:00 CONCLUSION: Very minimal serosanguineous fluid approximating 0.5 cc. Foot X-Ray 08/25/17 07:11 CONCLUSION: 1. No acute fracture or dislocation. 2. Soft tissue swelling about the hind and midfoot. Chest X-Ray 08/27/17 16:44 CONCLUSION: Cardiomegaly with basilar airspace disease most characteristic of mild pulmonary edema. Scrotum Ultrasound 08/31/17 00:00 CONCLUSION: 1. Significant scrotal edema. 2. Trace hydrocele 3. Testicles appear normal. Chest X-Ray 08/31/17 14:02 CONCLUSION: Resolving congestive heart failure Abdomen/Bladder Ultrasound 09/03/17 00:00 CONCLUSION: Limited exam of the kidneys. The visualized secondary to the patient's body habitus. Chest X-Ray 09/06/17 07:00 CONCLUSION: Mild congestive heart failure. Knee X-Ray 09/10/17 00:00 CONCLUSION: Unremarkable exam. - Procedures Right posterior Achilles incision and drainage 08/24/[address] Hull Assessment and Plan - Assessment (1) Rupture of right Achilles tendon Code(s): S86.011A - Strain of right Achilles tendon, initial encounter Status : Acute Plan: Open Achilles rupture, right - Recent admission with Achilles rupture - Pt underwent open repair of right Achilles tendon rupture with flexor hallucis longus tendon transfer and gastrocnemius recession, right lower extremity on 07/24/[address] Murillo. - Per podiatry, pt will need to be strict non-weight bearing for 6-8 weeks. - Pt was noted to have increased swelling and pain in the RLE on 08/04 - LE Doppler US (08/04) --> Is negative for DVT - Refused dc to snf and was noncompliant with weight bearing instructions. - Pt was readmitted with infection at operative site on 08/16 - He was seen by podiatry in clinic on 08/16 and sent to ED - MRI right ankle (08/16): 1. Postoperative change at the distal Achilles and calcaneus. Increased signal within the posterior calcaneus can all be consistent with postoperative change. It would be difficult to rule out osteomyelitis. 2. Fluid seen around the Achilles tendon. More superiorly in the mid lower leg, there is a larger fluid collection with peripheral enhancement. There is also a thinner fluid collection seen more superiorly in the proximal lower leg around the lateral aspect of the soleus muscle. These fluid collections could be postoperative seromas. An abscess could have a similar appearance. - vanco and Zosyn (08/17) - Rocephin (08/17 - present) - Rocephin stop date 10/07/17 - Comgmt with ID & Podiatry - Pt had a previous outpt culture taken on 08/11 which grew out Enterobacter cloacae - Right posterior Achilles incision and drainage 08/24/[address] Hull - Intraoperative wound Cx (08/24) --> Enterobacter cloacae - Plan to DC to SNF/rehab following hospitalization to ensure non-weight bearing of RLE and good recovery. Pt at risk for Right BKA. - The case was discussed with FHCP. Copay for SNF was defaulted. CM consulted. Pt agreeable for SNF but need to get accepting facility - Pt not ready for dc yet - Discussed dc abx with ID. orders written Volume overload Anasarca/edema - Pt was moved to ICU after Halicat and hypoxia on 08/31. Pt had received small dose of morphine a few hrs before the event. He was refusing bipap but now agreeable. Pt being followed by Dr Sawyer. - He continues with severe anasarca/lower ext edema and scrotal swelling. Also he has sleep apnea/hypoventilation and has hypoalbuminemia. - Procardia lowered to 30mg BID on 08/31, BP is stable. - Had right heart cath on last admission revealing increased right heart pressure. He has also some mild systolic dysfunction with EF 45% - Nephrology was consulted for evaluation of massive volume overload. - Pt was on Bumex gtt and diuresed 25L with about 20L negative balance. This was held when cr trended up, but now back on IV Lasix per renal. - despite high dose IV lasix, pt remains significantly volume overloaded - continue bumex gtt, 0.25 mg/H, 7050ml of urine out in the past 24 hours, - 5250 fluid balance over the past 24 hours - creatinine 1.32 -> 1.38 -> 1.31, 1.55 (09/09), 1.71 (09/10) - continue bumex gtt, rate decreased to 25mg/hour - repeat BMP in AM - Pt continues to exhibit significant clinical volume overload and is NOT yet ready for discharge. - nephrology also following recommending and reanl bx to evaluate for FSGS once patient stable - restrict fluids to 1.5 liters daily - Cont. to observe and once fluid issue stable will dc to SNF - DVT prophylaxis Obesity hypoventilation syndrome Hypercapnic respiratory insufficiency Obesity hypoventilation syndrome COPD - 2-D echocardiogram 07/23/17: - The left ventricular systolic function is mildly reduced with an estimated ejection fraction in the range of 45- 50%. - Mild infero-posterior hypokinesis - Mild concentric left ventricular hypertrophy. - The left atrial size is moderately dilated. - RHC completed (07/28) --> Class 2 Pulm HTN, PCW 23 - No Right heart strain, so sildenafil was stopped - Pt is noncompliant with CPAP - Pt sedated overnight - decrease flexeril to 5mg q8h prn - decrease norco to q6h prn - encourage pt to wear CPAP at night. COPD (chronic obstructive pulmonary disease) - chronic does not appear to be in acute exacerbation - Pt requiring 3-4L of supplemental O2 - Repeat CXR in AM Diabetes - Cont OHA and SSI. - Titrate as needed HTN (hypertension) - cont current BP meds, Cozaar 50mg q12H, Hydralazine 50mg TID, Coreg 25mg BID - May try to lower or stop Procardia. - Hydralazine PO PRN Anemia - Pts H/H has slowly been declining. No noted active GIB - During the last admission the pt was transfused with 2 units PRBCs (08/10) - During recent admission pt underwent evaluation with EGD/Colonoscopy (08/11/17 ) with Dr. Bratu - int/ext hemorrhoids - sigmoid diverticulosis - esophagitis - gastric biopsies taken, results pending - Repeat labs on 08/21/17 with Hgb 8.3/Hct 24.6 -> 7.7/23.5 (08/24) -> 7.8/24.2, 7.6 (08/27), 8.5 (08/28), 7.7 (09/07), 7.9 (09/08) - Hg 7.9 (09/10) - Iron studies 08/08/17 Iron 26, TIBC 244, % saturation 10.7, ferritin 246 - ferritin 154 (08/27), retic 82 (08/27); b12 515, folate 7.9 (08/26) - case informally d/w Hematology - since ferritin > 100, unlikely d/t ANAHI - 2 units PRBCs (08/27/17) - observe - repeat CBC in AM CAD (coronary artery disease) Recent history of pulmonary embolism - Patient had a PE approximately 8 months ago and was on Coumadin for until the cardiac cauterization 06/17/17 - Patient with recent cardiac catheterization with PCI 06/17/17 - After catheterization patient's Coumadin was DC'd and he was started on Aspirin and Plavix - Continue patient's Aspirin 81 mg daily, Plavix 75 mg PO daily, Atorvastatin 40 mg PO QHS and Coreg BID Anxiety and depression - Cont. Paxil 20mg daily (1) Rupture of right Achilles tendon Qualifiers: Encounter type: subsequent encounter Qualified Code(s): S86.011D - Strain of right Achilles tendon, subsequent encounter
[2017-09-11] MEDS: Enoxaparin Inj 40 MG/0.4 ML Syringe SQ SCH (22:18)
[2017-09-12] MEDS ORDERED: Clindamycin 600 mg/NS Premix 600 MG/50 ML PIGGYBACK IV.SIG SCH (04:15)
[2017-09-12] MEDS: LORazepam 0.5 MG Tablet PO PRN ×3 (04:44→21:57)
[2017-09-12] MEDS ORDERED: Piperacil/Tazo 3.375 GM Premix 50 ML IV.SIG SCH (05:00)
[2017-09-12] MEDS: Sodium Chloride 0.65% Nasal Spray 45 ML Bottle EACH NARE SCH ×4 (05:02→20:39)
[2017-09-12] MEDS: Gabapentin 300 MG Capsule PO SCH ×3 (05:03→21:07)
[2017-09-12 05:06] LABS: Baso % (Auto) 0.4 % (0.0-2.0); Eos # (Auto) 0.1 th/mm3 (0.0-0.4); Eos % (Auto) 0.6 % (0.0-4.0); Hematocrit 24.9 % (39.0-51.0); Hemoglobin 8.3 gm/dL (13.0-17.0); Lymph # (Auto) 0.5 th/mm3 (1.0-4.8); Lymph % (Auto) 4.2 % (9.0-44.0); Mean Corpuscular HGB Conc 33.2 % (32.0-36.0); Mean Corpuscular Hemoglobin 26.5 pg (27.0-34.0); Mean Corpuscular Volume 79.7 fL (80.0-100.0); Mean Platelet Volume 7.5 fL (7.0-11.0); Mono # (Auto) 0.9 th/mm3 (0.0-0.9); Mono % (Auto) 8.4 % (0.0-8.0); Neut # (Auto) 9.4 th/mm3 (1.8-7.7); Neut % (Auto) 86.4 % (16.0-70.0); Platelet Count 231 th/mm3 (150-450); Red Blood Count 3.13 mil/mm3 (4.50-5.90); Red Cell Distribution Width 15.1 % (11.6-17.2); White Blood Count 10.9 th/mm3 (4.0-11.0)
--- NOTE | 2017-09-12 05:06 | XR ---
EXAM DATE: 09/12/2017 5:03 AM EDT AGE/SEX: 47 years / Male INDICATIONS: Fever. CLINICAL DATA: This is the patient's subsequent encounter. Patient reports that signs and symptoms h ave been present for 2 weeks and indicates a pain score of 0/10. MEDICAL/SURGICAL HISTORY: Chronic obstructive pulmonary disease. Congestive heart failure. Non e. [place]PAR[place]: [facility] [place]/2017. . FINDINGS: A single AP view of the chest demonstrates the lungs to be symmetrically aerated without confluent in filtrate. The interstitial prominence seen previously show some interval improvement. Heart size is n ormal. Osseous structures are intact CONCLUSION: Improving interstitial edema. No confluent infiltrate Electronically signed by: Sorin Stapleton MD 09/12/2017 5:05 AM EDT
[2017-09-12 05:17] LABS: Calcium 8.8 mg/dL (8.5-10.1); Carbon Dioxide 35.4 meq/L (21.0-32.0); Magnesium 1.5 mg/dL (1.5-2.5); Potassium 5.1 meq/L (3.5-5.1)
[2017-09-12] MEDS: Insulin NovoLOG Aspart Correctional Sugar Inj SQ SCH ×4 (08:56→22:35)
[2017-09-12] MEDS: Allopurinol 100 MG Tablet PO SCH (08:58)
[2017-09-12] MEDS: Carvedilol 12.5 MG Tablet PO SCH ×2 (08:58→20:17)
[2017-09-12] MEDS: hydrALAZINE 25 MG Tablet PO SCH ×3 (08:59→17:00)
[2017-09-12] MEDS: Nystatin Liq 500,000 UNIT/5 ML UDC SWISH-SWAL SCH ×4 (08:59→20:35)
[2017-09-12] MEDS: Glimepiride 2 MG Tablet PO SCH ×2 (09:01→16:47)
[2017-09-12] MEDS: Heparin Central Flush 100 UNIT/ML 5 ML Vial IV.FLUSH SCH (09:02)
--- NOTE | 2017-09-12 10:34 | P.PNIM ---
Subjective Interval history: less swollen loos stool yesterday had fever overnight and emesis x 1 Physical Exam Vital signs: Vital Signs 09/11/17 11:42 09/11/17 12:00 09/11/17 14:00 Temperature 99.0 F Pulse Rate 104 H 98 H 89 Respiratory Rate 18 25 H Blood Pressure 140/72 Pulse Oximetry 98 09/11/17 15:21 09/11/17 16:00 09/11/17 18:00 Temperature 98.2 F Pulse Rate 90 91 H 87 Respiratory Rate 15 Blood Pressure 134/66 Pulse Oximetry 97 09/11/17 18:17 09/11/17 20:00 09/11/17 20:48 Temperature 97.7 F Pulse Rate 93 H 91 H Respiratory Rate 18 22 Blood Pressure 136/67 Pulse Oximetry 92 L 97 09/11/17 22:00 09/11/17 23:59 09/12/17 00:00 Temperature 98.7 F Pulse Rate 91 H 109 H 109 H Respiratory Rate 18 16 Blood Pressure 152/71 H Pulse Oximetry 93 L 09/12/17 01:43 09/12/17 04:00 09/12/17 04:11 Temperature 100.2 F H Pulse Rate 114 H 110 H 108 H Respiratory Rate 15 22 Blood Pressure 140/65 Pulse Oximetry 93 L 09/12/17 06:00 Temperature Pulse Rate 109 H Respiratory Rate Blood Pressure Pulse Oximetry Intake & Output 09/11/17 09/12/17 09/12/17 18:59 06:59 18:59 Intake Total 650 / 650 480 / 480 Output Total 2325 / 2325 2475 / 2475 Balance -1675 / -167 -1994 / Weight 180 kg Intake: IV 50 / 50 Flexbumin 25% Inj 50 ML @ 60 50 / 50 mls/hr IV.SIG Q12H CATIE Rx#: [id number] Oral 600 / 600 480 / 480 Anesthesia Amount 0 / 0 0 / 0 Other 0 / 0 0 / 0 Output: Urine 2325 / 2325 2475 / 2475 Stool 0 / 0 0 / 0 Urine/Stool Mix 0 / 0 0 / 0 Estimated Blood Loss 0 / 0 0 / 0 Other: Post Void Residual 0 0 # Voids 4 4 # Incontinent Voids 0 0 # Urine Diapers 0 0 Date of Last Bowel Movement 09/11/17 09/11/17 # Bowel Movements 2 0 Results - Labs CBC & Chem 7: 07/23/18 03:50 09/12/17 04:30 Laboratory Results - last 24 hr 09/11/17 09/11/17 09/11/17 11:55 13:30 16:46 WBC RBC Hgb Hct MCV MCH MCHC RDW Plt Count MPV Neut % (Auto) Lymph % (Auto) [place] % (Auto) Eos % (Auto) Baso % (Auto) Neut # (Auto) Lymph # (Auto) [place] # (Auto) Eos # (Auto) Baso # (Auto) WBC Differential Differential Comment Sodium 136 Potassium 4.8 Chloride 93 L Carbon Dioxide 34.1 H Anion Gap 9 BUN 35 H Creatinine 1.75 H Estimated GFR 42 L POC Glucose 190 H 250 H Random Glucose 231 H Lactic Acid Calcium 8.7 Magnesium 09/11/17 09/12/17 09/12/17 19:57 02:42 03:50 WBC 10.9 D RBC 3.13 L Hgb 8.3 L Hct 24.9 L MCV 79.7 L MCH 26.5 L MCHC 33.2 RDW 15.1 Plt Count 231 MPV 7.5 Neut % (Auto) 86.4 H Lymph % (Auto) 4.2 L [place] % (Auto) 8.4 H Eos % (Auto) 0.6 Baso % (Auto) 0.4 Neut # (Auto) 9.4 H Lymph # (Auto) 0.5 L [place] # (Auto) 0.9 Eos # (Auto) 0.1 Baso # (Auto) 0.0 WBC Differential . Differential Comment Auto diff final Sodium Potassium Chloride Carbon Dioxide Anion Gap BUN Creatinine Estimated GFR POC Glucose 231 H 227 H Random Glucose Lactic Acid Calcium Magnesium 09/12/17 09/12/17 09/12/17 04:22 04:30 08:12 WBC RBC Hgb Hct MCV MCH MCHC RDW Plt Count MPV Neut % (Auto) Lymph % (Auto) [place] % (Auto) Eos % (Auto) Baso % (Auto) Neut # (Auto) Lymph # (Auto) [place] # (Auto) Eos # (Auto) Baso # (Auto) WBC Differential Differential Comment Sodium 137 Potassium 5.1 Chloride 95 L Carbon Dioxide 35.4 H Anion Gap 7 BUN 34 H Creatinine 1.61 H Estimated GFR 46 L POC Glucose 227 H Random Glucose 214 H Lactic Acid 0.8 Calcium 8.8 Magnesium 1.5 - Imaging Impressions Chest X-Ray 09/12/17 00:00 CONCLUSION: Improving interstitial edema. No confluent infiltrate - Procedures Right posterior Achilles incision and drainage 08/24/[address] Hull Assessment and Plan - Assessment (1) Rupture of right Achilles tendon Code(s): S86.011A - Strain of right Achilles tendon, initial encounter Status : Acute Plan: Open Achilles rupture, right - Recent admission with Achilles rupture - Pt underwent open repair of right Achilles tendon rupture with flexor hallucis longus tendon transfer and gastrocnemius recession, right lower extremity on 07/24/[address] Murillo. - Per podiatry, pt will need to be strict non-weight bearing for 6-8 weeks. - Pt was noted to have increased swelling and pain in the RLE on 08/04 - LE Doppler US (08/04) --> Is negative for DVT - Refused dc to snf and was noncompliant with weight bearing instructions. - Pt was readmitted with infection at operative site on 08/16 - He was seen by podiatry in clinic on 08/16 and sent to ED - MRI right ankle (08/16): 1. Postoperative change at the distal Achilles and calcaneus. Increased signal within the posterior calcaneus can all be consistent with postoperative change. It would be difficult to rule out osteomyelitis. 2. Fluid seen around the Achilles tendon. More superiorly in the mid lower leg, there is a larger fluid collection with peripheral enhancement. There is also a thinner fluid collection seen more superiorly in the proximal lower leg around the lateral aspect of the soleus muscle. These fluid collections could be postoperative seromas. An abscess could have a similar appearance. - vanco and Zosyn (08/17) - Rocephin (08/17 - present) - Rocephin stop date 10/07/17 - Comgmt with ID & Podiatry - Pt had a previous outpt culture taken on 08/11 which grew out Enterobacter cloacae - Right posterior Achilles incision and drainage 08/24/[address] Hull - Intraoperative wound Cx (08/24) --> Enterobacter cloacae - Plan to DC to SNF/rehab following hospitalization to ensure non-weight bearing of RLE and good recovery. Pt at risk for Right BKA. - The case was discussed with FHCP. Copay for SNF was defaulted. CM consulted. Pt agreeable for SNF but need to get accepting facility - Pt not ready for dc yet - Discussed dc abx with ID. orders written fever overnight. blood cx pending. if diarrhea then check c.diff. Volume overload Anasarca/edema - Pt was moved to ICU after Halicat and hypoxia on 08/31. Pt had received small dose of morphine a few hrs before the event. He was refusing bipap but now agreeable. Pt being followed by Dr Sawyer. - He continues with severe anasarca/lower ext edema and scrotal swelling. Also he has sleep apnea/hypoventilation and has hypoalbuminemia. - Procardia lowered to 30mg BID on 08/31, BP is stable. - Had right heart cath on last admission revealing increased right heart pressure. He has also some mild systolic dysfunction with EF 45% - Nephrology was consulted for evaluation of massive volume overload. - Pt continues to exhibit significant clinical volume overload and is NOT yet ready for discharge. - nephrology also following recommending and reanl bx to evaluate for FSGS once patient stable - restrict fluids to 1.5 liters daily - Pt has been on high dose iv lasix/albumen and also on/off bumex gtts' ...current on the gtt and bmp stable. cont. Obesity hypoventilation syndrome Hypercapnic respiratory insufficiency Obesity hypoventilation syndrome COPD - 2-D echocardiogram 07/23/17: - The left ventricular systolic function is mildly reduced with an estimated ejection fraction in the range of 45- 50%. - Mild infero-posterior hypokinesis - Mild concentric left ventricular hypertrophy. - The left atrial size is moderately dilated. - RHC completed (07/28) --> Class 2 Pulm HTN, PCW 23 - No Right heart strain, so sildenafil was stopped - Pt is noncompliant with CPAP - Pt sedated overnight - decrease flexeril to 5mg q8h prn - decrease norco to q6h prn - encourage pt to wear CPAP at night. COPD (chronic obstructive pulmonary disease) - chronic does not appear to be in acute exacerbation - Pt requiring 3-4L of supplemental O2 - Diabetes - Cont OHA and SSI. - Titrate as needed HTN (hypertension) - cont current BP meds, Cozaar 50mg q12H, Hydralazine 50mg TID, Coreg 25mg BID - May try to lower or stop Procardia. - Hydralazine PO PRN Anemia - Pts H/H has slowly been declining. No noted active GIB - During the last admission the pt was transfused with 2 units PRBCs (08/10) - During recent admission pt underwent evaluation with EGD/Colonoscopy (08/11/17 ) with Dr. Mccormick - int/ext hemorrhoids - sigmoid diverticulosis - esophagitis - gastric biopsies taken, results pending - Repeat labs on 08/21/17 with Hgb 8.3/Hct 24.6 -> 7.7/23.5 (08/24) -> 7.8/24.2, 7.6 (08/27), 8.5 (08/28), 7.7 (09/07), 7.9 (09/08) - Hg 7.9 (09/10) - Iron studies 08/08/17 Iron 26, TIBC 244, % saturation 10.7, ferritin 246 - ferritin 154 (08/27), retic 82 (08/27); b12 515, folate 7.9 (08/26) - case informally d/w Hematology - since ferritin > 100, unlikely d/t ANAHI - 2 units PRBCs (08/27/17) - observe CAD (coronary artery disease) Recent history of pulmonary embolism - Patient had a PE approximately 8 months ago and was on Coumadin for until the cardiac cauterization 06/17/17 - Patient with recent cardiac catheterization with PCI 06/17/17 - After catheterization patient's Coumadin was DC'd and he was started on Aspirin and Plavix - Continue patient's Aspirin 81 mg daily, Plavix 75 mg PO daily, Atorvastatin 40 mg PO QHS and Coreg BID Anxiety and depression - Cont. Paxil 20mg daily (1) Rupture of right Achilles tendon Qualifiers: Encounter type: subsequent encounter Qualified Code(s): S86.011D - Strain of right Achilles tendon, subsequent encounter
[2017-09-12] MEDS: Albumin Human 25% Inj 50 ML IV.SIG SCH ×2 (12:17→22:00)
--- NOTE | 2017-09-12 18:20 | P.PNPL ---
Subjective Interval history: 47 YOWM with Achelis tendon repair,JUDY,COPD Has huge scrotal swelling Diureasing Up in chair, did use CPAP last night on Bumex drip Feels swelling decreasing Physical Exam Vital signs: Vital Signs 09/11/17 20:00 09/11/17 20:48 09/11/17 22:00 Temperature 97.7 F Pulse Rate 93 H 91 H 91 H Respiratory Rate 22 Blood Pressure 136/67 Pulse Oximetry 92 L 97 09/11/17 23:59 09/12/17 00:00 09/12/17 01:43 Temperature 98.7 F Pulse Rate 109 H 109 H 114 H Respiratory Rate 18 16 Blood Pressure 152/71 H Pulse Oximetry 93 L 09/12/17 04:00 09/12/17 04:11 09/12/17 06:00 Temperature 100.2 F H Pulse Rate 110 H 108 H 109 H Respiratory Rate 15 22 Blood Pressure 140/65 Pulse Oximetry 93 L 09/12/17 08:00 09/12/17 10:00 09/12/17 11:00 Temperature 98.8 F Pulse Rate 103 H 97 H 91 H Respiratory Rate 24 13 Blood Pressure 154/87 H Pulse Oximetry 94 L 09/12/17 12:00 09/12/17 14:00 09/12/17 16:48 Temperature Pulse Rate 93 H 91 H Respiratory Rate 12 Blood Pressure Pulse Oximetry 09/12/17 18:00 Temperature Pulse Rate 85 Respiratory Rate Blood Pressure Pulse Oximetry Intake & Output 09/11/17 09/12/17 09/12/17 18:59 06:59 18:59 Intake Total 650 / 650 530 / 530 Output Total 2325 / 2325 2475 / 2475 Balance -1675 / -167 -1944 / -1944 Weight 180 kg Intake: IV 50 / 50 50 / 50 Flexbumin 25% Inj 50 ML @ 60 50 / 50 50 / 50 mls/hr IV.SIG Q12H CATIE Rx#: [id number] Oral 600 / 600 480 / 480 Anesthesia Amount 0 / 0 0 / 0 Other 0 / 0 0 / 0 Output: Urine 5 / 2325 2475 / 2475 Stool 0 / 0 0 / 0 Urine/Stool Mix 0 / 0 0 / 0 Estimated Blood Loss 0 / 0 0 / 0 Other: Post Void Residual 0 0 # Voids 4 4 # Incontinent Voids 0 0 # Urine Diapers 0 0 Date of Last Bowel Movement 09/11/17 09/11/17 09/11/17 # Bowel Movements 2 0 GENERAL: Obese WM,NAD SKIN: Warm and dry. HEAD: Normocephalic. EYES: No scleral icterus. No injection or drainage. NECK: Supple, trachea midline. No JVD or lymphadenopathy. CARDIOVASCULAR: Regular rate and rhythm without murmurs, gallops, or rubs. RESPIRATORY: Breath sounds equal bilaterally. No accessory muscle use. GASTROINTESTINAL: Abdomen soft, non-tender, nondistended. MUSCULOSKELETAL: No cyanosis, ++ edema. Scrotal swelling BACK: Nontender without obvious deformity. No CVA tenderness. Assessment and Plan - Plan IMPRESSION: 1. Hypercapnic respiratory insufficiency. 2. Chronic obstructive pulmonary disease. 3. Obstructive sleep apnea. 4. Achilles tendon repair and leg infection. 5. Diabetes mellitus. 5. Scrotal edema. PLAN: Aerosol nebs Supplement 02 Encourage to use CPAP at night Cont Abx SQ Lovenox Bumex drip
--- NOTE | 2017-09-12 19:10 | P.PNNP ---
Subjective Interval history: Patient sen in the afternoon, mild SOB, feeling better, not in distress. Physical Exam Vital signs: Vital Signs 09/11/17 20:00 09/11/17 20:48 09/11/17 22:00 Temperature 97.7 F Pulse Rate 93 H 91 H 91 H Respiratory Rate 22 Blood Pressure 136/67 Pulse Oximetry 92 L 97 09/11/17 23:59 09/12/17 00:00 09/12/17 01:43 Temperature 98.7 F Pulse Rate 109 H 109 H 114 H Respiratory Rate 18 16 Blood Pressure 152/71 H Pulse Oximetry 93 L 09/12/17 04:00 09/12/17 04:11 09/12/17 06:00 Temperature 100.2 F H Pulse Rate 110 H 108 H 109 H Respiratory Rate 15 22 Blood Pressure 140/65 Pulse Oximetry 93 L 09/12/17 08:00 09/12/17 10:00 09/12/17 11:00 Temperature 98.8 F Pulse Rate 103 H 97 H 91 H Respiratory Rate 24 13 Blood Pressure 154/87 H Pulse Oximetry 94 L 09/12/17 12:00 09/12/17 14:00 09/12/17 16:48 Temperature Pulse Rate 93 H 91 H Respiratory Rate 12 Blood Pressure Pulse Oximetry 09/12/17 18:00 Temperature Pulse Rate 85 Respiratory Rate Blood Pressure Pulse Oximetry Intake & Output 09/12/17 09/12/17 09/13/17 06:59 18:59 06:59 Intake Total 530 / 530 Output Total 2475 / 2475 Balance -1945 / -194 Weight 180 kg Intake: IV 50 / 50 Flexbumin 25% Inj 50 ML @ 60 50 / 50 mls/hr IV.SIG Q12H [facility] Rx#: [id number] Oral 480 / 480 Anesthesia Amount 0 / 0 Other 0 / 0 Output: Urine 2475 / 2475 Stool 0 / 0 Urine/Stool Mix 0 / 0 Estimated Blood Loss 0 / 0 Other: Post Void Residual 0 # Voids 4 # Incontinent Voids 0 # Urine Diapers 0 Date of Last Bowel Movement 09/11/17 09/11/17 # Bowel Movements 0 Narrative: General: NAD, AAOx3 Cardiac: regular Chest: Decrease air entry at bases, with occ. rhonchi. Abd: +BS, soft, distended, obese, nontender Ext: Anasarca flanks/lower ext/scrotum, right leg splinted Assessment and Plan - Assessment (1) Acute kidney injury superimposed on chronic kidney disease Code(s): N17.9 - Acute kidney failure, unspecified; N18.9 - Chronic kidney disease, unspecified Status: Acute - Plan Patient has Nephrotic Proteinuria, and develop Anasarca. BP is stable, Urine out put is good. On Bumex infusion and Metolazone. Creatinine is stable. Will need Renal Biopsy once stable.
[2017-09-12] MEDS: Senna/Docusate Sodium 8.6/50 MG Tablet PO SCH ×2 (19:39→20:39)
[2017-09-12] MEDS: Bumetanide Inj 25 MG/100 ML BAG IV.CONT SCH ×2 (20:31)
[2017-09-12] MEDS: Enoxaparin Inj 40 MG/0.4 ML Syringe SQ SCH (22:00)
[2017-09-13] MEDS: Sodium Chloride 0.65% Nasal Spray 45 ML Bottle EACH NARE SCH ×3 (03:34→20:43)
[2017-09-13 05:49] LABS: Calcium 8.6 mg/dL (8.5-10.1); Carbon Dioxide 36.7 meq/L (21.0-32.0); Potassium 4.6 meq/L (3.5-5.1)
[2017-09-13] MEDS: LORazepam 0.5 MG Tablet PO PRN ×2 (06:17→18:34)
[2017-09-13] MEDS: Gabapentin 300 MG Capsule PO SCH ×3 (06:17→21:03)
[2017-09-13] MEDS: Insulin NovoLOG Aspart Correctional Sugar Inj SQ SCH ×4 (08:41→21:07)
[2017-09-13] MEDS: Glimepiride 2 MG Tablet PO SCH ×2 (08:41→16:50)
[2017-09-13] MEDS: Senna/Docusate Sodium 8.6/50 MG Tablet PO SCH ×2 (08:42→20:41)
[2017-09-13] MEDS: hydrALAZINE 25 MG Tablet PO SCH ×3 (08:42→17:05)
[2017-09-13] MEDS: Carvedilol 12.5 MG Tablet PO SCH ×2 (08:42→20:46)
[2017-09-13] MEDS: Heparin Central Flush 100 UNIT/ML 5 ML Vial IV.FLUSH SCH (08:43)
[2017-09-13] MEDS: Allopurinol 100 MG Tablet PO SCH (08:43)
[2017-09-13] MEDS: Nystatin Liq 500,000 UNIT/5 ML UDC SWISH-SWAL SCH ×4 (08:44→20:48)
--- NOTE | 2017-09-13 09:50 | P.PNIM ---
Subjective Interval history: overall seems to be improving. had sz yesterday at bedside Physical Exam Vital signs: Vital Signs 09/12/17 10:00 09/12/17 11:00 09/12/17 12:00 Temperature Pulse Rate 97 H 89 93 H Respiratory Rate 16 13 14 Blood Pressure 139/73 133/70 137/68 Pulse Oximetry 99 96 96 09/12/17 13:00 09/12/17 13:40 09/12/17 14:00 Temperature Pulse Rate 99 H 91 H Respiratory Rate 20 12 12 Blood Pressure 149/86 H 145/76 H Pulse Oximetry 93 L 96 09/12/17 15:00 09/12/17 16:00 09/12/17 16:48 Temperature Pulse Rate 97 H 92 H Respiratory Rate 17 13 12 Blood Pressure 150/93 H 146/72 H Pulse Oximetry 93 L 93 L 09/12/17 17:00 09/12/17 17:20 09/12/17 18:00 Temperature Pulse Rate 86 85 Respiratory Rate 19 12 15 Blood Pressure 131/65 131/68 Pulse Oximetry 94 L 98 09/12/17 19:00 09/12/17 20:00 09/12/17 21:00 Temperature 98.6 F Pulse Rate 87 97 H 101 H Respiratory Rate 15 30 H 18 Blood Pressure 138/69 131/77 130/66 Pulse Oximetry 95 95 96 09/12/17 22:00 09/12/17 23:00 09/13/17 00:00 Temperature 98.4 F Pulse Rate 86 84 85 Respiratory Rate 13 11 L 14 Blood Pressure 134/72 131/68 138/72 Pulse Oximetry 96 97 96 09/13/17 01:00 09/13/17 02:00 09/13/17 03:00 Temperature Pulse Rate 93 H 85 79 Respiratory Rate 16 14 13 Blood Pressure 142/72 H 142/71 H 132/68 Pulse Oximetry 94 L 98 97 09/13/17 04:00 09/13/17 04:20 09/13/17 05:00 Temperature 98.6 F Pulse Rate 81 84 Respiratory Rate 14 16 Blood Pressure 142/69 H 141/72 H Pulse Oximetry 99 98 94 L 09/13/17 06:00 09/13/17 07:00 09/13/17 08:43 Temperature Pulse Rate 86 83 Respiratory Rate 7 L 12 16 Blood Pressure 142/80 H 143/74 H Pulse Oximetry 97 96 Intake & Output 09/12/17 09/13/17 09/13/17 18:59 06:59 18:59 Intake Total 950 / 950 632 / 632 150 / 150 Output Total 1500 / 1500 1250 / 1250 Balance -550 / -550 -618 / -618 150 / 150 Weight 179.6 kg Intake: IV 50 / 50 32 / 32 150 / 150 Bumex Inj 25 mg In 100 ml @ 0. 32 / 32 25 MG/HR 1 mls/hr IV.CONT .Q24H [facility] Rx#:[id number] Flexbumin 25% Inj 50 ML @ 60 50 / 50 50 / 50 mls/hr IV.SIG Q12H [facility] Rx#: [id number] Rocephin Inj 2,000 MG In NS Inj 100 / 100 100 ML @ 200 mls/hr IV.SIG Q24H [facility] Rx#:[id number] Oral 900 / 900 600 / 600 Output: Urine 1500 / 1500 1250 / 1250 Stool 0 / 0 Urine/Stool Mix 0 / 0 Other: Date of Last Bowel Movement 09/11/17 09/11/17 # Bowel Movements 0 heart reg lung cta abd s/nt ext anasarca/scrotal edema improving. Results - Labs CBC & Chem 7: 09/12/17 03:50 09/13/17 05:03 Laboratory Results - last 24 hr 09/12/17 09/12/17 09/12/17 12:28 16:46 22:08 Sodium Potassium Chloride Carbon Dioxide Anion Gap BUN Creatinine Estimated GFR POC Glucose 189 H 267 H 314 H Random Glucose Calcium 09/13/17 09/13/17 05:03 08:15 Sodium 138 Potassium 4.6 Chloride 94 L Carbon Dioxide 36.7 H Anion Gap 7 BUN 40 H Creatinine 1.97 H Estimated GFR 37 L POC Glucose 237 H Random Glucose 208 H Calcium 8.6 - Procedures Right posterior Achilles incision and drainage 08/24/[address] Hull Assessment and Plan - Assessment (1) Rupture of right Achilles tendon Code(s): S86.011A - Strain of right Achilles tendon, initial encounter Status : Acute Plan: Open Achilles rupture, right - Recent admission with Achilles rupture - Pt underwent open repair of right Achilles tendon rupture with flexor hallucis longus tendon transfer and gastrocnemius recession, right lower extremity on 07/24/[address] Murillo. - Per podiatry, pt will need to be strict non-weight bearing for 6-8 weeks. - Pt was noted to have increased swelling and pain in the RLE on 08/04 - LE Doppler US (08/04) --> Is negative for DVT - Refused dc to snf and was noncompliant with weight bearing instructions. - Pt was readmitted with infection at operative site on 08/16 - He was seen by podiatry in clinic on 08/16 and sent to ED - MRI right ankle (08/16): 1. Postoperative change at the distal Achilles and calcaneus. Increased signal within the posterior calcaneus can all be consistent with postoperative change. It would be difficult to rule out osteomyelitis. 2. Fluid seen around the Achilles tendon. More superiorly in the mid lower leg, there is a larger fluid collection with peripheral enhancement. There is also a thinner fluid collection seen more superiorly in the proximal lower leg around the lateral aspect of the soleus muscle. These fluid collections could be postoperative seromas. An abscess could have a similar appearance. - debra and Mehran (08/17) - Rocepyassinen (08/17 - present) - Rocephin stop date 10/07/17 - Comgmt with ID & Podiatry - Pt had a previous outpt culture taken on 08/11 which grew out Enterobacter cloacae - Right posterior Achilles incision and drainage 08/24/[address] Hull - Intraoperative wound Cx (08/24) --> Enterobacter cloacae - Plan to DC to SNF/rehab following hospitalization to ensure non-weight bearing of RLE and good recovery. Pt at risk for Right BKA. - The case was discussed with [facility]. Copay for SNF was defaulted. CM consulted. Pt agreeable for SNF but need to get accepting facility - Pt not ready for dc yet - Discussed dc abx with ID. orders written fever overnight. blood cx pending. if diarrhea then check c.diff. Volume overload Anasarca/edema Nephrotic range proteinuria - Pt was moved to ICU after Halicat and hypoxia on 08/31. Pt had received small dose of morphine a few hrs before the event. He was refusing bipap but now agreeable. Pt being followed by Dr Sawyer. - He continues with severe anasarca/lower ext edema and scrotal swelling. Also he has sleep apnea/hypoventilation and has hypoalbuminemia. - Procardia lowered to 30mg BID on 08/31, BP is stable. - Had right heart cath on last admission revealing increased right heart pressure. He has also some mild systolic dysfunction with EF 45% - Nephrology was consulted for evaluation of massive volume overload. - Pt continues to exhibit significant clinical volume overload and is NOT yet ready for discharge. - nephrology also following recommending and renal bx to evaluate for FSGS once patient stable - restrict fluids to 1.5 liters daily - Pt has been on high dose iv lasix/albumen and also on/off bumex gtts' ...currently on the gtt and bmp being monitored Obesity hypoventilation syndrome Hypercapnic respiratory insufficiency Obesity hypoventilation syndrome COPD - 2-D echocardiogram 07/23/17: - The left ventricular systolic function is mildly reduced with an estimated ejection fraction in the range of 45- 50%. - Mild infero-posterior hypokinesis - Mild concentric left ventricular hypertrophy. - The left atrial size is moderately dilated. - RHC completed (07/28) --> Class 2 Pulm HTN, PCW 23 - No Right heart strain, so sildenafil was stopped - Pt is noncompliant with CPAP - Pt sedated overnight - decrease flexeril to 5mg q8h prn - decrease norco to q6h prn - encourage pt to wear CPAP at night. COPD (chronic obstructive pulmonary disease) - chronic does not appear to be in acute exacerbation - Pt requiring 3-4L of supplemental O2 - Diabetes - Cont OHA and SSI. - Titrate as needed HTN (hypertension) - cont current BP meds, Cozaar 50mg q12H, Hydralazine 50mg TID, Coreg 25mg BID - May try to lower or stop Procardia. - Hydralazine PO PRN Anemia - Pts H/H has slowly been declining. No noted active GIB - During the last admission the pt was transfused with 2 units PRBCs (08/10) - During recent admission pt underwent evaluation with EGD/Colonoscopy (08/11/17 ) with Dr. Mccormick - int/ext hemorrhoids - sigmoid diverticulosis - esophagitis - gastric biopsies taken, results pending - Repeat labs on 08/21/17 with Hgb 8.3/Hct 24.6 -> 7.7/23.5 (08/24) -> 7.8/24.2, 7.6 (08/27), 8.5 (08/28), 7.7 (09/07), 7.9 (09/08) - Hg 7.9 (09/10) - Iron studies 08/08/17 Iron 26, TIBC 244, % saturation 10.7, ferritin 246 - ferritin 154 (08/27), retic 82 (08/27); b12 515, folate 7.9 (08/26) - case informally d/w Hematology - since ferritin > 100, unlikely d/t ANAHI - 2 units PRBCs (08/27/17) - observe CAD (coronary artery disease) Recent history of pulmonary embolism - Patient had a PE approximately 8 months ago and was on Coumadin for until the cardiac cauterization 06/17/17 - Patient with recent cardiac catheterization with PCI 06/17/17 - After catheterization patient's Coumadin was DC'd and he was started on Aspirin and Plavix - Continue patient's Aspirin 81 mg daily, Plavix 75 mg PO daily, Atorvastatin 40 mg PO QHS and Coreg BID Anxiety and depression - Cont. Paxil 20mg daily (1) Rupture of right Achilles tendon Qualifiers: Encounter type: subsequent encounter Qualified Code(s): S86.011D - Strain of right Achilles tendon, subsequent encounter
[2017-09-13] MEDS: Albumin Human 25% Inj 50 ML IV.SIG SCH ×2 (10:37→22:34)
--- NOTE | 2017-09-13 18:00 | P.PNPL ---
Subjective Interval history: 47 YOWM with Achelis tendon repair,JUDY,COPD Has huge scrotal swelling Diureasing Up in chair, did use CPAP last night on Bumex drip Feels swelling decreasing Better rested Worried about his , she had sz yesterday Physical Exam Vital signs: Vital Signs 09/12/17 18:00 09/12/17 19:00 09/12/17 20:00 Temperature 98.6 F Pulse Rate 85 87 97 H Respiratory Rate 15 15 30 H Blood Pressure 131/68 138/69 131/77 Pulse Oximetry 98 95 95 09/12/17 21:00 09/12/17 22:00 09/12/17 23:00 Temperature Pulse Rate 101 H 86 84 Respiratory Rate 18 13 11 L Blood Pressure 130/66 134/72 131/68 Pulse Oximetry 96 96 97 09/13/17 00:00 09/13/17 01:00 09/13/17 02:00 Temperature 98.4 F Pulse Rate 85 93 H 85 Respiratory Rate 14 16 14 Blood Pressure 138/72 142/72 H 142/71 H Pulse Oximetry 96 94 L 98 09/13/17 03:00 09/13/17 04:00 09/13/17 04:20 Temperature 98.6 F Pulse Rate 79 81 Respiratory Rate 13 14 Blood Pressure 132/68 142/69 H Pulse Oximetry 97 99 98 09/13/17 05:00 09/13/17 06:00 09/13/17 07:00 Temperature Pulse Rate 84 86 83 Respiratory Rate 16 7 L 12 Blood Pressure 141/72 H 142/80 H 143/74 H Pulse Oximetry 94 L 97 96 09/13/17 08:00 09/13/17 08:25 09/13/17 08:43 Temperature Pulse Rate Respiratory Rate 16 Blood Pressure Pulse Oximetry 94 L 95 Intake & Output 09/12/17 09/13/17 09/13/17 18:59 06:59 18:59 Intake Total 950 / 950 632 / 632 150 / 150 Output Total 1500 / 1500 1250 / 1250 Balance -550 / -550 -618 / -618 150 / 150 Weight 179.6 kg Intake: IV 50 / 50 32 / 32 150 / 150 Bumex Inj 25 mg In 100 ml @ 0. 32 / 32 25 MG/HR 1 mls/hr IV.CONT .Q24H [facility] Rx#:[id number] Flexbumin 25% Inj 50 ML @ 60 50 / 50 50 / 50 mls/hr IV.SIG Q12H [facility] Rx#: [id number] Rocephin Inj 2,000 MG In NS Inj 100 / 100 100 ML @ 200 mls/hr IV.SIG Q24H [facility] Rx#:[id number] Oral 900 / 900 600 / 600 Output: Urine 1500 / 1500 1250 / 1250 Stool 0 / 0 Urine/Stool Mix 0 / 0 Other: Date of Last Bowel Movement 09/11/17 09/11/17 09/11/17 # Bowel Movements 0 GENERAL: Obese WM,NAD SKIN: Warm and dry. HEAD: Normocephalic. EYES: No scleral icterus. No injection or drainage. NECK: Supple, trachea midline. No JVD or lymphadenopathy. CARDIOVASCULAR: Regular rate and rhythm without murmurs, gallops, or rubs. RESPIRATORY: Breath sounds equal bilaterally. No accessory muscle use. GASTROINTESTINAL: Abdomen soft, non-tender, nondistended. MUSCULOSKELETAL: No cyanosis, ++ edema. Scrotal swelling. BACK: Nontender without obvious deformity. No CVA tenderness. Assessment and Plan - Plan IMPRESSION: 1. Hypercapnic respiratory insufficiency. 2. Chronic obstructive pulmonary disease. 3. Obstructive sleep apnea. 4. Achilles tendon repair and leg infection. 5. Diabetes mellitus. 5. Scrotal edema. PLAN: Aerosol nebs Supplement 02 Encourage to use CPAP at night Cont Abx SQ Lovenox Bumex drip DW pt at BS
--- NOTE | 2017-09-13 18:53 | P.PNNP ---
Subjective Interval history: Patient seen, alert, has SOB off and on. Physical Exam Vital signs: Vital Signs 09/12/17 19:00 09/12/17 20:00 09/12/17 21:00 Temperature 98.6 F Pulse Rate 87 97 H 101 H Respiratory Rate 15 30 H 18 Blood Pressure 138/69 131/77 130/66 Pulse Oximetry 95 95 96 09/12/17 22:00 09/12/17 23:00 09/13/17 00:00 Temperature 98.4 F Pulse Rate 86 84 85 Respiratory Rate 13 11 L 14 Blood Pressure 134/72 131/68 138/72 Pulse Oximetry 96 97 96 09/13/17 01:00 09/13/17 02:00 09/13/17 03:00 Temperature Pulse Rate 93 H 85 79 Respiratory Rate 16 14 13 Blood Pressure 142/72 H 142/71 H 132/68 Pulse Oximetry 94 L 98 97 09/13/17 04:00 09/13/17 04:20 09/13/17 05:00 Temperature 98.6 F Pulse Rate 81 84 Respiratory Rate 14 16 Blood Pressure 142/69 H 141/72 H Pulse Oximetry 99 98 94 L 09/13/17 06:00 09/13/17 07:00 09/13/17 08:00 Temperature Pulse Rate 86 83 Respiratory Rate 7 L 12 Blood Pressure 142/80 H 143/74 H Pulse Oximetry 97 96 94 L 09/13/17 08:25 09/13/17 08:43 Temperature Pulse Rate Respiratory Rate 16 Blood Pressure Pulse Oximetry 95 Intake & Output 09/12/17 09/13/17 09/13/17 18:59 06:59 18:59 Intake Total 950 / 950 632 / 632 150 / 150 Output Total 1500 / 1500 1250 / 1250 Balance -550 / -550 -618 / -618 150 / 150 Weight 179.6 kg Intake: IV 50 / 50 32 / 32 150 / 150 Bumex Inj 25 mg In 100 ml @ 0. 32 / 32 25 MG/HR 1 mls/hr IV.CONT .Q24H [facility] Rx#:[id number] Flexbumin 25% Inj 50 ML @ 60 50 / 50 50 / 50 mls/hr IV.SIG Q12H [facility] Rx#: [id number] Rocephin Inj 2,000 MG In NS Inj 100 / 100 100 ML @ 200 mls/hr IV.SIG Q24H [facility] Rx#:[id number] Oral 900 / 900 600 / 600 Output: Urine 1500 / 1500 1250 / 1250 Stool 0 / 0 Urine/Stool Mix 0 / 0 Other: Date of Last Bowel Movement 09/11/17 09/11/17 09/11/17 # Bowel Movements 0 Narrative: General: NAD, AAOx3 Cardiac: regular Chest: Decrease air entry at bases, with occ. rhonchi. Abd: +BS, soft, distended, obese, nontender Ext: Anasarca flanks/lower ext/scrotum, right leg splinted Assessment and Plan - Assessment (1) Acute kidney injury superimposed on chronic kidney disease Code(s): N17.9 - Acute kidney failure, unspecified; N18.9 - Chronic kidney disease, unspecified Status: Acute - Plan Patient has Nephrotic Proteinuria, and develop Anasarca. BP is stable, Urine out put is good. On Bumex infusion and Metolazone. Creatinine increase to 1.9. If Creatinine continue to increase, will decrease diuretics. Will need Renal Biopsy once stable.
[2017-09-13] MEDS: Enoxaparin Inj 40 MG/0.4 ML Syringe SQ SCH (22:34)
[2017-09-14] MEDS: LORazepam 0.5 MG Tablet PO PRN (03:14)
[2017-09-14] MEDS: Sodium Chloride 0.65% Nasal Spray 45 ML Bottle EACH NARE SCH ×5 (03:17→20:57)
[2017-09-14] MEDS: Gabapentin 300 MG Capsule PO SCH ×3 (05:29→22:04)
[2017-09-14 06:47] LABS: Calcium 8.7 mg/dL (8.5-10.1); Carbon Dioxide 33.8 meq/L (21.0-32.0); Potassium 4.8 meq/L (3.5-5.1)
[2017-09-14] MEDS: Insulin NovoLOG Aspart Correctional Sugar Inj SQ SCH ×4 (10:18→20:54)
[2017-09-14] MEDS: Allopurinol 100 MG Tablet PO SCH (10:19)
[2017-09-14] MEDS: hydrALAZINE 25 MG Tablet PO SCH ×3 (10:19→18:33)
[2017-09-14] MEDS: oxyCODONE/Acetaminophen 10/325 Tablet PO PRN ×4 (10:20→23:00)
[2017-09-14] MEDS: Carvedilol 12.5 MG Tablet PO SCH ×2 (10:20→20:54)
[2017-09-14] MEDS: Senna/Docusate Sodium 8.6/50 MG Tablet PO SCH ×2 (10:20→20:55)
[2017-09-14] MEDS: Albumin Human 25% Inj 50 ML IV.SIG SCH ×2 (10:22→23:00)
[2017-09-14] MEDS: Glimepiride 2 MG Tablet PO SCH ×2 (10:29→18:32)
[2017-09-14] MEDS: Nystatin Liq 500,000 UNIT/5 ML UDC SWISH-SWAL SCH ×3 (14:50→22:04)
[2017-09-14] MEDS: Heparin Central Flush 100 UNIT/ML 5 ML Vial IV.FLUSH SCH (16:23)
--- NOTE | 2017-09-14 17:14 | P.PNPL ---
Subjective Interval history: 47 YOWM with Achelis tendon repair,JUDY,COPD Has huge scrotal swelling Diureasing Up in chair, did use CPAP last night on Bumex drip Feels swelling decreasing Did't sleep well, did't use CPAP Physical Exam Vital signs: Vital Signs 09/13/17 18:00 09/13/17 19:00 09/13/17 20:00 Temperature 99.2 F Pulse Rate 96 H 92 H 93 H Respiratory Rate 27 H 13 17 Blood Pressure 140/78 113/52 L 137/66 Pulse Oximetry 95 97 93 L 09/13/17 21:00 09/13/17 21:01 09/13/17 21:51 Temperature Pulse Rate 107 H 107 H Respiratory Rate 43 H 38 H Blood Pressure 154/75 H Pulse Oximetry 90 L 92 L 95 09/13/17 22:00 09/13/17 23:00 09/14/17 00:00 Temperature 99 F Pulse Rate 100 H 97 H 108 H Respiratory Rate 13 14 23 Blood Pressure 161/82 H 157/75 H 159/90 H Pulse Oximetry 98 97 94 L 09/14/17 01:00 09/14/17 02:00 09/14/17 03:00 Temperature Pulse Rate 94 H 90 89 Respiratory Rate 12 22 30 H Blood Pressure 131/66 135/66 128/67 Pulse Oximetry 96 94 L 95 09/14/17 03:06 09/14/17 04:00 09/14/17 05:00 Temperature 98.9 F Pulse Rate 85 90 Respiratory Rate 16 16 19 Blood Pressure 145/67 H 139/72 Pulse Oximetry 95 94 L 09/14/17 06:00 09/14/17 07:00 09/14/17 07:21 Temperature Pulse Rate 91 H 88 Respiratory Rate 16 20 Blood Pressure 131/68 133/70 Pulse Oximetry 98 94 L 96 09/14/17 08:00 09/14/17 09:00 09/14/17 10:00 Temperature 98.8 F Pulse Rate 91 H 92 H 105 H Respiratory Rate 16 31 H 11 L Blood Pressure 137/65 149/76 H 165/88 H Pulse Oximetry 93 L 99 95 09/14/17 10:50 09/14/17 16:28 Temperature Pulse Rate Respiratory Rate 14 14 Blood Pressure Pulse Oximetry Intake & Output 09/13/17 09/14/17 09/14/17 18:59 06:59 18:59 Intake Total 200 / 200 750 / 750 Output Total 1760 / 1760 Balance 200 / 200 -1010 / -1010 Weight 176.9 kg Intake: IV 200 / 200 150 / 150 Flexbumin 25% Inj 50 ML @ 60 100 / 100 50 / 50 mls/hr IV.SIG Q12H [facility] Rx#: [id number] Rocephin Inj 2,000 MG In NS Inj 100 / 100 100 / 100 100 ML @ 200 mls/hr IV.SIG Q24H [facility] Rx#:[id number] Oral 600 / 600 Output: Urine 1760 / 1760 Stool 0 / 0 Urine/Stool Mix 0 / 0 Other: # Voids 8 3 Date of Last Bowel Movement 09/11/17 09/11/17 09/11/17 # Bowel Movements 0 0 GENERAL: Obese WM, NAD SKIN: Warm and dry. HEAD: Normocephalic. EYES: No scleral icterus. No injection or drainage. NECK: Supple, trachea midline. No JVD or lymphadenopathy. CARDIOVASCULAR: Regular rate and rhythm without murmurs, gallops, or rubs. RESPIRATORY: Breath sounds equal bilaterally. No accessory muscle use. GASTROINTESTINAL: Abdomen soft, non-tender, nondistended. MUSCULOSKELETAL: No cyanosis, ++ edema. BACK: Nontender without obvious deformity. No CVA tenderness. Assessment and Plan - Plan IMPRESSION: 1. Hypercapnic respiratory insufficiency. 2. Chronic obstructive pulmonary disease. 3. Obstructive sleep apnea. 4. Achilles tendon repair and leg infection. 5. Diabetes mellitus. 5. Scrotal edema. PLAN: Aerosol nebs Supplement 02 Encourage to use CPAP at night SQ Lovenox Bumex drip monitor Abimael. SARTHAK pt at BS
--- NOTE | 2017-09-14 18:54 | P.PNNP ---
Subjective Interval history: Patient seen in the afternoon, alert, not in distress. Physical Exam Vital signs: Vital Signs 09/13/17 19:00 09/13/17 20:00 09/13/17 21:00 Temperature 99.2 F Pulse Rate 92 H 93 H 107 H Respiratory Rate 13 17 43 H Blood Pressure 113/52 L 137/66 Pulse Oximetry 97 93 L 90 L 09/13/17 21:01 09/13/17 21:51 09/13/17 22:00 Temperature Pulse Rate 107 H 100 H Respiratory Rate 38 H 13 Blood Pressure 154/75 H 161/82 H Pulse Oximetry 92 L 95 98 09/13/17 23:00 09/14/17 00:00 09/14/17 01:00 Temperature 99 F Pulse Rate 97 H 108 H 94 H Respiratory Rate 14 23 12 Blood Pressure 157/75 H 159/90 H 131/66 Pulse Oximetry 97 94 L 96 09/14/17 02:00 09/14/17 03:00 09/14/17 03:06 Temperature Pulse Rate 90 89 Respiratory Rate 22 30 H 16 Blood Pressure 135/66 128/67 Pulse Oximetry 94 L 95 09/14/17 04:00 09/14/17 05:00 09/14/17 06:00 Temperature 98.9 F Pulse Rate 85 90 91 H Respiratory Rate 16 19 16 Blood Pressure 145/67 H 139/72 131/68 Pulse Oximetry 95 94 L 98 09/14/17 07:00 09/14/17 07:21 09/14/17 08:00 Temperature 98.8 F Pulse Rate 88 91 H Respiratory Rate 20 16 Blood Pressure 133/70 137/65 Pulse Oximetry 94 L 96 93 L 09/14/17 09:00 09/14/17 10:00 09/14/17 10:50 Temperature Pulse Rate 92 H 105 H Respiratory Rate 31 H 11 L 14 Blood Pressure 149/76 H 165/88 H Pulse Oximetry 99 95 09/14/17 16:28 Temperature Pulse Rate Respiratory Rate 14 Blood Pressure Pulse Oximetry Intake & Output 09/13/17 09/14/17 09/14/17 18:59 06:59 18:59 Intake Total 200 / 200 750 / 750 Output Total 1760 / 1760 Balance 200 / 200 -1010 / -1010 Weight 176.9 kg Intake: IV 200 / 200 150 / 150 Flexbumin 25% Inj 50 ML @ 60 100 / 100 50 / 50 mls/hr IV.SIG Q12H [facility] Rx#: [id number] Rocephin Inj 2,000 MG In NS Inj 100 / 100 100 / 100 100 ML @ 200 mls/hr IV.SIG Q24H [facility] Rx#:[id number] Oral 600 / 600 Output: Urine 1760 / 1760 Stool 0 / 0 Urine/Stool Mix 0 / 0 Other: # Voids 8 3 Date of Last Bowel Movement 09/11/17 09/11/17 09/11/17 # Bowel Movements 0 0 Narrative: General: NAD, AAOx3 Cardiac: regular Chest: Decrease air entry at bases, with occ. rhonchi. Abd: +BS, soft, distended, obese, nontender Ext: Anasarca flanks/lower ext/scrotum, right leg splinted Assessment and Plan - Assessment (1) Acute kidney injury superimposed on chronic kidney disease Code(s): N17.9 - Acute kidney failure, unspecified; N18.9 - Chronic kidney disease, unspecified Status: Acute - Plan Patient has Nephrotic Proteinuria, and develop Anasarca. BP is stable, Urine out put is good. On Bumex infusion and Metolazone. Creatinine now better, 1.7. Will need Renal Biopsy once stable. Continue diuretics.
[2017-09-14] MEDS: Enoxaparin Inj 40 MG/0.4 ML Syringe SQ SCH (23:00)
[2017-09-15 04:24] LABS: Calcium 8.9 mg/dL (8.5-10.1); Carbon Dioxide 39.3 meq/L (21.0-32.0); Potassium 4.4 meq/L (3.5-5.1)
[2017-09-15] MEDS: oxyCODONE/Acetaminophen 10/325 Tablet PO PRN ×5 (04:25→22:01)
[2017-09-15] MEDS: Sodium Chloride 0.65% Nasal Spray 45 ML Bottle EACH NARE SCH ×4 (04:26→20:22)
[2017-09-15] MEDS: Insulin Detemir Inj 1,000 UNIT/10 ML Vial SQ SCH ×2 (09:06→20:19)
[2017-09-15] MEDS: Senna/Docusate Sodium 8.6/50 MG Tablet PO SCH ×2 (09:06→20:18)
[2017-09-15] MEDS: Glimepiride 2 MG Tablet PO SCH ×2 (09:07→17:12)
[2017-09-15] MEDS: Allopurinol 100 MG Tablet PO SCH (09:08)
[2017-09-15] MEDS: hydrALAZINE 25 MG Tablet PO SCH ×3 (09:08→17:12)
--- NOTE | 2017-09-15 09:21 | P.PNIM ---
Subjective Interval history: pt concerned about post left achilles area/just below calf tenderness started after stretching yesterday with PT. He is concerned about rupturing the achilles. Physical Exam Vital signs: Vital Signs 09/14/17 10:00 09/14/17 10:50 09/14/17 12:00 Temperature 98.9 F Pulse Rate 105 H 96 H Respiratory Rate 11 L 14 16 Blood Pressure 165/88 H 140/67 Pulse Oximetry 95 09/14/17 14:00 09/14/17 16:00 09/14/17 16:28 Temperature 99.2 F Pulse Rate 100 H 91 H Respiratory Rate 16 14 Blood Pressure 147/77 H Pulse Oximetry 09/14/17 18:00 09/14/17 20:00 09/14/17 22:00 Temperature 98.2 F Pulse Rate 89 91 H 88 Respiratory Rate 17 Blood Pressure 144/73 H Pulse Oximetry 98 09/15/17 00:00 09/15/17 02:00 09/15/17 04:00 Temperature 98.2 F 97.6 F Pulse Rate 97 H 93 H 91 H Respiratory Rate 22 17 Blood Pressure 106/54 L 140/73 Pulse Oximetry 93 L 98 09/15/17 06:00 Temperature Pulse Rate 93 H Respiratory Rate Blood Pressure Pulse Oximetry Intake & Output 09/14/17 09/15/17 09/15/17 18:59 06:59 18:59 Intake Total 950 / 950 480 / 480 Output Total 1700 / 1700 1800 / 1800 Balance -750 / -750 -1320 / -1320 Weight 177.6 kg Intake: IV 50 / 50 Flexbumin 25% Inj 50 ML @ 60 50 / 50 mls/hr IV.SIG Q12H [facility] Rx#: [id number] Oral 900 / 900 480 / 480 Anesthesia Amount 0 / 0 Other 0 / 0 Output: Urine 1700 / 1700 1800 / 1800 Stool 0 / 0 Urine/Stool Mix 0 / 0 Estimated Blood Loss 0 / 0 Other: Post Void Residual 0 # Voids 3 # Incontinent Voids 0 # Urine Diapers 0 Date of Last Bowel Movement 09/11/17 09/14/17 # Bowel Movements 1 heart reg lung cta abd s/nt ext and scrotal edema improved mild tenderness post left lower leg no redness or new swelling. full range of motion right lower leg splinted. Results - Labs CBC & Chem 7: 09/12/17 03:50 09/15/17 02:50 Laboratory Results - last 24 hr 09/14/17 09/14/17 09/14/17 09:26 12:56 18:22 Sodium Potassium Chloride Carbon Dioxide Anion Gap BUN Creatinine Estimated GFR POC Glucose 234 H 269 H 230 H Random Glucose Calcium 09/14/17 09/15/17 20:10 02:50 Sodium 136 Potassium 4.4 Chloride 93 L Carbon Dioxide 39.3 H Anion Gap 4 L BUN 50 H Creatinine 1.84 H Estimated GFR 40 L POC Glucose 301 H Random Glucose 211 H Calcium 8.9 Microbiology 08/24/17 15:00 Tissue - Ankle Fungal Smear - Final No fungal elements seen 08/24/17 15:00 Tissue - Ankle Fungal Culture - Preliminary No growth in 3 weeks 08/24/17 15:00 Tissue - Ankle Acid Fast Bacilli Smear - Final No acid fast bacilli seen 08/24/17 15:00 Tissue - Ankle Mycobacterial Culture - Preliminary No growth in 3 weeks 09/12/17 04:22 Blood - Peripheral Aerobic Blood Culture - Preliminary No growth in 2 days 09/12/17 04:22 Blood - Peripheral Anaerobic Blood Culture - Preliminary No growth in 2 days 09/12/17 04:18 Blood - Peripheral Aerobic Blood Culture - Preliminary No growth in 2 days 09/12/17 04:18 Blood - Peripheral Anaerobic Blood Culture - Preliminary No growth in 2 days - Procedures Right posterior Achilles incision and drainage 08/24/[address] Hull Assessment and Plan - Assessment (1) Rupture of right Achilles tendon Code(s): S86.011A - Strain of right Achilles tendon, initial encounter Status : Acute Plan: Open Achilles rupture, right - Recent admission with Achilles rupture - Pt underwent open repair of right Achilles tendon rupture with flexor hallucis longus tendon transfer and gastrocnemius recession, right lower extremity on 07/24/[address] Murillo. - Per podiatry, pt will need to be strict non-weight bearing for 6-8 weeks. - Pt was noted to have increased swelling and pain in the RLE on 08/04 - LE Doppler US (08/04) --> Is negative for DVT - Refused dc to snf and was noncompliant with weight bearing instructions. - Pt was readmitted with infection at operative site on 08/16 - He was seen by podiatry in clinic on 08/16 and sent to ED - MRI right ankle (08/16): 1. Postoperative change at the distal Achilles and calcaneus. Increased signal within the posterior calcaneus can all be consistent with postoperative change. It would be difficult to rule out osteomyelitis. 2. Fluid seen around the Achilles tendon. More superiorly in the mid lower leg, there is a larger fluid collection with peripheral enhancement. There is also a thinner fluid collection seen more superiorly in the proximal lower leg around the lateral aspect of the soleus muscle. These fluid collections could be postoperative seromas. An abscess could have a similar appearance. - vanco and Zosyn (08/17) - Rocephin (08/17 - present) - Rocephin stop date 10/07/17 - Comgmt with ID & Podiatry - Pt had a previous outpt culture taken on 08/11 which grew out Enterobacter cloacae - Right posterior Achilles incision and drainage 08/24/[address] Hull - Intraoperative wound Cx (08/24) --> Enterobacter cloacae - Plan to DC to SNF/rehab following hospitalization to ensure non-weight bearing of RLE and good recovery. Pt at risk for Right BKA. - The case was discussed with FHCP. Copay for SNF was defaulted. CM consulted. Pt agreeable for SNF but need to get accepting facility - Pt not ready for dc yet - Discussed dc abx with ID. orders written continue PT efforts. Volume overload Anasarca/edema Nephrotic range proteinuria - Pt was moved to ICU after Halicat and hypoxia on 08/31. Pt had received small dose of morphine a few hrs before the event. He was refusing bipap but now agreeable. Pt being followed by Dr Sawyer. - He continues with severe anasarca/lower ext edema and scrotal swelling. Also he has sleep apnea/hypoventilation and has hypoalbuminemia. - Procardia lowered to 30mg BID on 08/31, BP is stable. - Had right heart cath on last admission revealing increased right heart pressure. He has also some mild systolic dysfunction with EF 45% - Nephrology was consulted for evaluation of massive volume overload. - Pt continues to exhibit significant clinical volume overload and is NOT yet ready for discharge. - nephrology also following recommending and renal bx to evaluate for FSGS once patient stable - restrict fluids to 1.5 liters daily - Pt has been on high dose iv lasix/albumen and also on/off bumex gtts' ...currently on the gtt and bmp being monitored kidney bx planned per renal Obesity hypoventilation syndrome Hypercapnic respiratory insufficiency Obesity hypoventilation syndrome COPD - 2-D echocardiogram 07/23/17: - The left ventricular systolic function is mildly reduced with an estimated ejection fraction in the range of 45- 50%. - Mild infero-posterior hypokinesis - Mild concentric left ventricular hypertrophy. - The left atrial size is moderately dilated. - RHC completed (07/28) --> Class 2 Pulm HTN, PCW 23 - No Right heart strain, so sildenafil was stopped - Pt is noncompliant with CPAP - Pt sedated overnight - decrease flexeril to 5mg q8h prn - decrease norco to q6h prn - encourage pt to wear CPAP at night. COPD (chronic obstructive pulmonary disease) - chronic does not appear to be in acute exacerbation - Pt requiring 3-4L of supplemental O2 - Diabetes - Cont OHA and SSI. - Titrate as needed HTN (hypertension) - cont current BP meds, Cozaar 50mg q12H, Hydralazine 50mg TID, Coreg 25mg BID - May try to lower or stop Procardia. - Hydralazine PO PRN Anemia - Pts H/H has slowly been declining. No noted active GIB - During the last admission the pt was transfused with 2 units PRBCs (08/10) - During recent admission pt underwent evaluation with EGD/Colonoscopy (08/11/17 ) with Dr. Mccormick - int/ext hemorrhoids - sigmoid diverticulosis - esophagitis - gastric biopsies taken, results pending - Repeat labs on 08/21/17 with Hgb 8.3/Hct 24.6 -> 7.7/23.5 (08/24) -> 7.8/24.2, 7.6 (08/27), 8.5 (08/28), 7.7 (09/07), 7.9 (09/08) - Hg 7.9 (09/10) - Iron studies 08/08/17 Iron 26, TIBC 244, % saturation 10.7, ferritin 246 - ferritin 154 (08/27), retic 82 (08/27); b12 515, folate 7.9 (08/26) - case informally d/w Hematology - since ferritin > 100, unlikely d/t ANAHI - 2 units PRBCs (08/27/17) - observe CAD (coronary artery disease) Recent history of pulmonary embolism - Patient had a PE approximately 8 months ago and was on Coumadin for until the cardiac cauterization 06/17/17 - Patient with recent cardiac catheterization with PCI 06/17/17 - After catheterization patient's Coumadin was DC'd and he was started on Aspirin and Plavix - Continue patient's Aspirin 81 mg daily, Plavix 75 mg PO daily, Atorvastatin 40 mg PO QHS and Coreg BID Anxiety and depression - Cont. Paxil 20mg daily (1) Rupture of right Achilles tendon Qualifiers: Encounter type: subsequent encounter Qualified Code(s): S86.011D - Strain of right Achilles tendon, subsequent encounter
[2017-09-15] MEDS: Heparin Central Flush 100 UNIT/ML 5 ML Vial IV.FLUSH SCH (10:54)
[2017-09-15] MEDS: Carvedilol 12.5 MG Tablet PO SCH ×2 (10:55→20:18)
[2017-09-15] MEDS: Albumin Human 25% Inj 50 ML IV.SIG SCH ×2 (10:57→22:02)
[2017-09-15] MEDS: Nystatin Liq 500,000 UNIT/5 ML UDC SWISH-SWAL SCH ×4 (10:57→20:18)
[2017-09-15] MEDS: Gabapentin 300 MG Capsule PO SCH ×3 (10:58→22:02)
[2017-09-15] MEDS: Insulin NovoLOG Aspart Correctional Sugar Inj SQ SCH ×4 (12:44→20:20)
--- NOTE | 2017-09-15 17:07 | P.PNNP ---
Subjective Interval history: Patient is alert, breathing and swelling better. Physical Exam Vital signs: Vital Signs 09/14/17 18:00 09/14/17 19:00 09/14/17 20:00 Temperature 98.2 F Pulse Rate 89 93 H 91 H Respiratory Rate 15 16 17 Blood Pressure 136/67 144/73 H 144/73 H Pulse Oximetry 96 95 98 09/14/17 21:00 09/14/17 22:00 09/14/17 23:00 Temperature Pulse Rate 89 88 90 Respiratory Rate 17 17 24 Blood Pressure Pulse Oximetry 97 97 99 09/14/17 23:02 09/15/17 00:00 09/15/17 01:00 Temperature 98.2 F Pulse Rate 89 97 H 89 Respiratory Rate 18 22 20 Blood Pressure 130/69 106/54 L 140/73 Pulse Oximetry 97 93 L 94 L 09/15/17 02:00 09/15/17 03:00 09/15/17 04:00 Temperature 97.6 F Pulse Rate 90 91 H 91 H Respiratory Rate 20 16 17 Blood Pressure 137/71 139/68 140/73 Pulse Oximetry 94 L 98 98 09/15/17 05:00 09/15/17 06:00 09/15/17 07:00 Temperature Pulse Rate 93 H 93 H 94 H Respiratory Rate 14 18 16 Blood Pressure 144/69 H 137/67 136/69 Pulse Oximetry 97 99 100 09/15/17 08:00 09/15/17 09:00 09/15/17 09:05 Temperature 98.0 F Pulse Rate 90 104 H 94 H Respiratory Rate 24 34 H 24 Blood Pressure 132/69 142/90 H Pulse Oximetry 99 100 09/15/17 10:00 09/15/17 11:00 09/15/17 12:00 Temperature 97.9 F Pulse Rate 90 88 86 Respiratory Rate 14 19 18 Blood Pressure 130/62 132/71 139/67 Pulse Oximetry 100 97 96 09/15/17 13:00 09/15/17 14:00 09/15/17 15:00 Temperature Pulse Rate 85 86 92 H Respiratory Rate 15 14 26 H Blood Pressure 133/66 134/66 132/76 Pulse Oximetry 98 99 100 09/15/17 16:00 09/15/17 16:50 Temperature 98.0 F Pulse Rate 82 Respiratory Rate 15 Blood Pressure 129/59 L Pulse Oximetry 100 100 Intake & Output 09/14/17 09/15/17 09/15/17 18:59 06:59 18:59 Intake Total 950 / 950 530 / 530 50 / 50 Output Total 1700 / 1700 1800 / 1800 Balance -750 / -750 -1270 / -1270 50 / 50 Weight 177.6 kg Intake: IV 50 / 50 50 / 50 50 / 50 Flexbumin 25% Inj 50 ML @ 60 50 / 50 50 / 50 50 / 50 mls/hr IV.SIG Q12H [facility] Rx#: [id number] Oral 900 / 900 480 / 480 Anesthesia Amount 0 / 0 Other 0 / 0 Output: Urine 1700 / 1700 1800 / 1800 Stool 0 / 0 Urine/Stool Mix 0 / 0 Estimated Blood Loss 0 / 0 Other: Post Void Residual 0 # Voids 3 # Incontinent Voids 0 # Urine Diapers 0 Date of Last Bowel Movement 09/11/17 09/14/17 09/14/17 # Bowel Movements 1 Narrative: General: NAD, AAOx3 Cardiac: regular Chest: Decrease air entry at bases, with occ. rhonchi. Abd: +BS, soft, distended, obese, nontender Ext: Anasarca flanks/lower ext/scrotum, right leg splinted Assessment and Plan - Assessment (1) Acute kidney injury superimposed on chronic kidney disease Code(s): N17.9 - Acute kidney failure, unspecified; N18.9 - Chronic kidney disease, unspecified Status: Acute - Plan Patient has Nephrotic Proteinuria, and develop Anasarca. BP is stable, Urine out put is good. On Bumex infusion and Metolazone. Creatinine is stable at 1.8. Change the Bumex to TID, and increase Metolazone. Will need Renal Biopsy once stable. Continue diuretics.
--- NOTE | 2017-09-15 19:11 | P.PNPL ---
Subjective Interval history: 47 YOWM with Achelis tendon repair,JUDY,COPD Has huge scrotal swelling Diureasing Up in chair, did use CPAP last night Feels swelling decreasing Bumex changed to 2 mg tid Physical Exam Vital signs: Vital Signs 09/14/17 20:00 09/14/17 21:00 09/14/17 22:00 Temperature 98.2 F Pulse Rate 91 H 89 88 Respiratory Rate 17 17 17 Blood Pressure 144/73 H Pulse Oximetry 98 97 97 09/14/17 23:00 09/14/17 23:02 09/15/17 00:00 Temperature 98.2 F Pulse Rate 90 89 97 H Respiratory Rate 24 18 22 Blood Pressure 130/69 106/54 L Pulse Oximetry 99 97 93 L 09/15/17 01:00 09/15/17 02:00 09/15/17 03:00 Temperature Pulse Rate 89 90 91 H Respiratory Rate 20 20 16 Blood Pressure 140/73 137/71 139/68 Pulse Oximetry 94 L 94 L 98 09/15/17 04:00 09/15/17 05:00 09/15/17 06:00 Temperature 97.6 F Pulse Rate 91 H 93 H 93 H Respiratory Rate 17 14 18 Blood Pressure 140/73 144/69 H 137/67 Pulse Oximetry 98 97 99 09/15/17 07:00 09/15/17 08:00 09/15/17 09:00 Temperature 98.0 F Pulse Rate 94 H 90 104 H Respiratory Rate 16 24 34 H Blood Pressure 136/69 132/69 Pulse Oximetry 100 99 09/15/17 09:05 09/15/17 10:00 09/15/17 11:00 Temperature Pulse Rate 94 H 90 88 Respiratory Rate 24 14 19 Blood Pressure 142/90 H 130/62 132/71 Pulse Oximetry 100 100 97 09/15/17 12:00 09/15/17 13:00 09/15/17 14:00 Temperature 97.9 F Pulse Rate 86 85 86 Respiratory Rate 18 15 14 Blood Pressure 139/67 133/66 134/66 Pulse Oximetry 96 98 99 09/15/17 15:00 09/15/17 16:00 09/15/17 16:50 Temperature 98.0 F Pulse Rate 92 H 82 Respiratory Rate 26 H 15 Blood Pressure 132/76 129/59 L Pulse Oximetry 100 100 100 09/15/17 18:00 Temperature Pulse Rate 91 H Respiratory Rate Blood Pressure Pulse Oximetry Intake & Output 09/15/17 09/15/17 09/16/17 06:59 18:59 06:59 Intake Total 530 / 530 800 / 800 Output Total 1800 / 1800 1750 / 1750 Balance -1270 / -1270 -950 / -950 Weight 177.6 kg Intake: IV 50 / 50 50 / 50 Flexbumin 25% Inj 50 ML @ 60 50 / 50 50 / 50 mls/hr IV.SIG Q12H [facility] Rx#: [id number] Oral 480 / 480 750 / 750 Anesthesia Amount 0 / 0 Other 0 / 0 Output: Urine 1800 / 1800 1750 / 1750 Stool 0 / 0 Urine/Stool Mix 0 / 0 Estimated Blood Loss 0 / 0 Other: Post Void Residual 0 # Voids 3 # Incontinent Voids 0 # Urine Diapers 0 Date of Last Bowel Movement 09/14/17 09/14/17 # Bowel Movements 1 GENERAL: Obese WM, NAD SKIN: Warm and dry. HEAD: Normocephalic. EYES: No scleral icterus. No injection or drainage. NECK: Supple, trachea midline. No JVD or lymphadenopathy. CARDIOVASCULAR: Regular rate and rhythm without murmurs, gallops, or rubs. RESPIRATORY: Breath sounds equal bilaterally. No accessory muscle use. GASTROINTESTINAL: Abdomen soft, non-tender, nondistended. MUSCULOSKELETAL: No cyanosis, ++ edema. BACK: Nontender without obvious deformity. No CVA tenderness. Assessment and Plan - Plan IMPRESSION: 1. Hypercapnic respiratory insufficiency. 2. Chronic obstructive pulmonary disease. 3. Obstructive sleep apnea. 4. Achilles tendon repair and leg infection. 5. Diabetes mellitus. 5. Scrotal edema. PLAN: Aerosol nebs Supplement 02 Encourage to use CPAP at night SQ Lovenox Bumex 2 mg q 8 hrs monitor Lytes. SARTHAK pt and his at BS.
[2017-09-15] MEDS: metOLazone 5 MG Tablet PO SCH (20:18)
[2017-09-15] MEDS: LORazepam 0.5 MG Tablet PO PRN (20:19)
[2017-09-15] MEDS: Enoxaparin Inj 40 MG/0.4 ML Syringe SQ SCH (22:02)
[2017-09-16] MEDS: oxyCODONE/Acetaminophen 10/325 Tablet PO PRN ×5 (02:17→20:44)
[2017-09-16] MEDS: Sodium Chloride 0.65% Nasal Spray 45 ML Bottle EACH NARE SCH ×4 (02:17→20:46)
[2017-09-16 04:45] LABS: Calcium 8.8 mg/dL (8.5-10.1); Carbon Dioxide 36.5 meq/L (21.0-32.0); Potassium 5.1 meq/L (3.5-5.1)
[2017-09-16] MEDS: Gabapentin 300 MG Capsule PO SCH ×3 (06:15→22:57)
[2017-09-16] MEDS: Glimepiride 2 MG Tablet PO SCH ×2 (07:26→08:31)
--- NOTE | 2017-09-16 08:18 | P.PNIM ---
Subjective Interval history: still c/o sore left achilles. Physical Exam Vital signs: Vital Signs 09/15/17 09:00 09/15/17 09:05 09/15/17 10:00 Temperature Pulse Rate 104 H 94 H 90 Respiratory Rate 34 H 24 14 Blood Pressure 142/90 H 130/62 Pulse Oximetry 100 100 09/15/17 11:00 09/15/17 12:00 09/15/17 13:00 Temperature 97.9 F Pulse Rate 88 86 85 Respiratory Rate 19 18 15 Blood Pressure 132/71 139/67 133/66 Pulse Oximetry 97 96 98 09/15/17 14:00 09/15/17 15:00 09/15/17 16:00 Temperature 98.0 F Pulse Rate 86 92 H 82 Respiratory Rate 14 26 H 15 Blood Pressure 134/66 132/76 129/59 L Pulse Oximetry 99 100 100 09/15/17 16:50 09/15/17 17:00 09/15/17 18:00 Temperature Pulse Rate 83 91 H Respiratory Rate 14 47 H Blood Pressure 134/70 138/64 Pulse Oximetry 100 98 99 09/15/17 19:00 09/15/17 20:00 09/15/17 21:00 Temperature 98 F Pulse Rate 95 H 99 H 99 H Respiratory Rate 32 H 25 H 25 H Blood Pressure 142/77 H 158/80 H 144/67 H Pulse Oximetry 96 95 93 L 09/15/17 22:00 09/15/17 22:31 09/15/17 23:00 Temperature Pulse Rate 92 H 92 H Respiratory Rate 16 30 H 14 Blood Pressure 160/80 H 128/59 L Pulse Oximetry 92 L 93 L 09/16/17 00:00 09/16/17 01:00 09/16/17 02:00 Temperature 99.5 F Pulse Rate 90 99 H 86 Respiratory Rate 31 H 27 H 29 H Blood Pressure 122/59 L 147/83 H 108/57 L Pulse Oximetry 93 L 98 95 09/16/17 03:00 09/16/17 04:00 09/16/17 05:00 Temperature 99.4 F Pulse Rate 85 87 95 H Respiratory Rate 30 H 23 13 Blood Pressure 132/60 142/71 H 163/78 H Pulse Oximetry 95 96 92 L 09/16/17 06:00 09/16/17 07:00 09/16/17 08:00 Temperature 98.2 F Pulse Rate 82 82 87 Respiratory Rate 13 14 13 Blood Pressure 137/72 120/61 150/77 H Pulse Oximetry 100 96 98 Intake & Output 09/15/17 09/16/17 09/16/17 18:59 06:59 18:59 Intake Total 800 / 800 870 / 870 Output Total 1750 / 1750 1400 / 1400 Balance -950 / -950 -530 / -530 Weight 176.8 kg Intake: IV 50 / 50 150 / 150 Bumex Inj 25 mg In 100 ml @ 0. 0 / 0 25 MG/HR 1 mls/hr IV.CONT .Q24H [facility] Rx#:[id number] Flexbumin 25% Inj 50 ML @ 60 50 / 50 50 / 50 mls/hr IV.SIG Q12H [facility] Rx#: [id number] Rocephin Inj 2,000 MG In NS Inj 100 / 100 100 ML @ 200 mls/hr IV.SIG Q24H [facility] Rx#:[id number] Oral 750 / 750 720 / 720 Output: Urine 1750 / 1750 1400 / 1400 Other: Date of Last Bowel Movement 09/14/17 09/14/17 09/14/17 # Bowel Movements 0 heart reg lung cta abd s/nt ext anasarca improved Results - Labs CBC & Chem 7: 09/12/17 03:50 09/16/17 03:10 Laboratory Results - last 24 hr 09/15/17 09/15/17 09/15/17 09:15 11:55 17:09 Sodium Potassium Chloride Carbon Dioxide Anion Gap BUN Creatinine Estimated GFR POC Glucose 202 H 253 H 243 H Random Glucose Calcium 09/15/17 09/16/17 09/16/17 20:16 03:10 07:34 Sodium 135 L Potassium 5.1 Chloride 92 L Carbon Dioxide 36.5 H Anion Gap 7 BUN 48 H Creatinine 1.89 H Estimated GFR 39 L POC Glucose 138 H 214 H Random Glucose 219 H Calcium 8.8 Microbiology 09/12/17 04:22 Blood - Peripheral Aerobic Blood Culture - Preliminary No growth in 3 days 09/12/17 04:22 Blood - Peripheral Anaerobic Blood Culture - Preliminary No growth in 3 days 09/12/17 04:18 Blood - Peripheral Aerobic Blood Culture - Preliminary No growth in 3 days 09/12/17 04:18 Blood - Peripheral Anaerobic Blood Culture - Preliminary No growth in 3 days - Procedures Right posterior Achilles incision and drainage 08/24/[address] Hull Assessment and Plan - Assessment (1) Rupture of right Achilles tendon Code(s): S86.011A - Strain of right Achilles tendon, initial encounter Status : Acute Plan: Open Achilles rupture, right - Recent admission with Achilles rupture - Pt underwent open repair of right Achilles tendon rupture with flexor hallucis longus tendon transfer and gastrocnemius recession, right lower extremity on 07/24/[address] Murillo. - Per podiatry, pt will need to be strict non-weight bearing for 6-8 weeks. - Pt was noted to have increased swelling and pain in the RLE on 08/04 - LE Doppler US (08/04) --> Is negative for DVT - Refused dc to snf and was noncompliant with weight bearing instructions. - Pt was readmitted with infection at operative site on 08/16 - He was seen by podiatry in clinic on 08/16 and sent to ED - MRI right ankle (08/16): 1. Postoperative change at the distal Achilles and calcaneus. Increased signal within the posterior calcaneus can all be consistent with postoperative change. It would be difficult to rule out osteomyelitis. 2. Fluid seen around the Achilles tendon. More superiorly in the mid lower leg, there is a larger fluid collection with peripheral enhancement. There is also a thinner fluid collection seen more superiorly in the proximal lower leg around the lateral aspect of the soleus muscle. These fluid collections could be postoperative seromas. An abscess could have a similar appearance. - vanco and Zosyn (08/17) - Rocephin (08/17 - present) - Rocephin stop date 10/07/17 - Comgmt with ID & Podiatry - Pt had a previous outpt culture taken on 08/11 which grew out Enterobacter cloacae - Right posterior Achilles incision and drainage 08/24/[address] Hull - Intraoperative wound Cx (08/24) --> Enterobacter cloacae - Plan to DC to SNF/rehab following hospitalization to ensure non-weight bearing of RLE and good recovery. Pt at risk for Right BKA. - The case was discussed with [facility]CP. Copay for SNF was defaulted. CM consulted. Pt agreeable for SNF but need to get accepting facility - Pt not ready for dc yet - Discussed dc abx with ID. orders written continue PT efforts. transfer out of ICU today. Volume overload Anasarca/edema Nephrotic range proteinuria - Pt was moved to ICU after Halicat and hypoxia on 08/31. Pt had received small dose of morphine a few hrs before the event. He was refusing bipap but now agreeable. Pt being followed by Dr Sawyer. - He continues with severe anasarca/lower ext edema and scrotal swelling. Also he has sleep apnea/hypoventilation and has hypoalbuminemia. - Procardia lowered to 30mg BID on 08/31, BP is stable. - Had right heart cath on last admission revealing increased right heart pressure. He has also some mild systolic dysfunction with EF 45% - Nephrology was consulted for evaluation of massive volume overload. - Pt continues to exhibit significant clinical volume overload and is NOT yet ready for discharge. - nephrology also following recommending and renal bx to evaluate for FSGS once patient stable - restrict fluids to 1.5 liters daily - Pt bumex converted back to IV push from gtt. kidney bx planned per renal Obesity hypoventilation syndrome Hypercapnic respiratory insufficiency Obesity hypoventilation syndrome COPD - 2-D echocardiogram 07/23/17: - The left ventricular systolic function is mildly reduced with an estimated ejection fraction in the range of 45- 50%. - Mild infero-posterior hypokinesis - Mild concentric left ventricular hypertrophy. - The left atrial size is moderately dilated. - RHC completed (07/28) --> Class 2 Pulm HTN, PCW 23 - No Right heart strain, so sildenafil was stopped - Pt is noncompliant with CPAP - Pt sedated overnight - decrease flexeril to 5mg q8h prn - decrease norco to q6h prn - encourage pt to wear CPAP at night. COPD (chronic obstructive pulmonary disease) - chronic does not appear to be in acute exacerbation - Pt requiring 3-4L of supplemental O2 - Diabetes - Cont OHA and SSI. basal levemir - Titrate as needed HTN (hypertension) - cont current BP meds, Cozaar 50mg q12H, Hydralazine 50mg TID, Coreg 25mg BID - May try to lower or stop Procardia. - Hydralazine PO PRN Anemia - Pts H/H has slowly been declining. No noted active GIB - During the last admission the pt was transfused with 2 units PRBCs (08/10) - During recent admission pt underwent evaluation with EGD/Colonoscopy (08/11/17 ) with Dr. Mccormick - int/ext hemorrhoids - sigmoid diverticulosis - esophagitis - gastric biopsies taken, results pending - Repeat labs on 08/21/17 with Hgb 8.3/Hct 24.6 -> 7.7/23.5 (08/24) -> 7.8/24.2, 7.6 (08/27), 8.5 (08/28), 7.7 (09/07), 7.9 (09/08) - Hg 7.9 (09/10) - Iron studies 08/08/17 Iron 26, TIBC 244, % saturation 10.7, ferritin 246 - ferritin 154 (08/27), retic 82 (08/27); b12 515, folate 7.9 (08/26) - case informally d/w Hematology - since ferritin > 100, unlikely d/t ANAHI - 2 units PRBCs (08/27/17) - observe CAD (coronary artery disease) Recent history of pulmonary embolism - Patient had a PE approximately 8 months ago and was on Coumadin for until the cardiac cauterization 06/17/17 - Patient with recent cardiac catheterization with PCI 06/17/17 - After catheterization patient's Coumadin was DC'd and he was started on Aspirin and Plavix - Continue patient's Aspirin 81 mg daily, Plavix 75 mg PO daily, Atorvastatin 40 mg PO QHS and Coreg BID Anxiety and depression - Cont. Paxil 20mg daily (1) Rupture of right Achilles tendon Qualifiers: Encounter type: subsequent encounter Qualified Code(s): S86.011D - Strain of right Achilles tendon, subsequent encounter
[2017-09-16] MEDS: Carvedilol 12.5 MG Tablet PO SCH ×2 (08:31→20:43)
[2017-09-16] MEDS: metOLazone 5 MG Tablet PO SCH ×2 (08:32→20:44)
[2017-09-16] MEDS: hydrALAZINE 25 MG Tablet PO SCH ×3 (08:32→18:00)
[2017-09-16] MEDS: Allopurinol 100 MG Tablet PO SCH (08:32)
[2017-09-16] MEDS: Senna/Docusate Sodium 8.6/50 MG Tablet PO SCH ×2 (08:32→20:44)
[2017-09-16] MEDS: Insulin Detemir Inj 1,000 UNIT/10 ML Vial SQ SCH ×2 (08:33→20:53)
[2017-09-16] MEDS: Heparin Central Flush 100 UNIT/ML 5 ML Vial IV.FLUSH SCH (08:33)
[2017-09-16] MEDS: Insulin NovoLOG Aspart Correctional Sugar Inj SQ SCH ×4 (08:33→20:53)
[2017-09-16] MEDS: Glimepiride 4 MG Tablet PO SCH ×2 (08:37→17:00)
[2017-09-16] MEDS: Nystatin Liq 500,000 UNIT/5 ML UDC SWISH-SWAL SCH ×4 (08:37→20:45)
[2017-09-16] MEDS: LORazepam 0.5 MG Tablet PO PRN (09:10)
--- NOTE | 2017-09-16 09:39 | P.PNPL ---
Subjective Interval history: 47 YOWM with Achelis tendon repair,JUDY,COPD Has huge scrotal swelling Diureasing Up in chair, did use CPAP last night Feels swelling decreasing Physical Exam Vital signs: Vital Signs 09/15/17 10:00 09/15/17 11:00 09/15/17 12:00 Temperature 97.9 F Pulse Rate 90 88 86 Respiratory Rate 14 19 18 Blood Pressure 130/62 132/71 139/67 Pulse Oximetry 100 97 96 09/15/17 13:00 09/15/17 14:00 09/15/17 15:00 Temperature Pulse Rate 85 86 92 H Respiratory Rate 15 14 26 H Blood Pressure 133/66 134/66 132/76 Pulse Oximetry 98 99 100 09/15/17 16:00 09/15/17 16:50 09/15/17 17:00 Temperature 98.0 F Pulse Rate 82 83 Respiratory Rate 15 14 Blood Pressure 129/59 L 134/70 Pulse Oximetry 100 100 98 09/15/17 18:00 09/15/17 19:00 09/15/17 20:00 Temperature 98 F Pulse Rate 91 H 95 H 99 H Respiratory Rate 47 H 32 H 25 H Blood Pressure 138/64 142/77 H 158/80 H Pulse Oximetry 99 96 95 09/15/17 21:00 09/15/17 22:00 09/15/17 22:31 Temperature Pulse Rate 99 H 92 H Respiratory Rate 25 H 16 30 H Blood Pressure 144/67 H 160/80 H Pulse Oximetry 93 L 92 L 09/15/17 23:00 09/16/17 00:00 09/16/17 01:00 Temperature 99.5 F Pulse Rate 92 H 90 99 H Respiratory Rate 14 31 H 27 H Blood Pressure 128/59 L 122/59 L 147/83 H Pulse Oximetry 93 L 93 L 98 09/16/17 02:00 09/16/17 03:00 09/16/17 04:00 Temperature 99.4 F Pulse Rate 86 85 87 Respiratory Rate 29 H 30 H 23 Blood Pressure 108/57 L 132/60 142/71 H Pulse Oximetry 95 95 96 09/16/17 05:00 09/16/17 06:00 09/16/17 07:00 Temperature Pulse Rate 95 H 82 82 Respiratory Rate 13 13 14 Blood Pressure 163/78 H 137/72 120/61 Pulse Oximetry 92 L 100 96 09/16/17 08:00 Temperature 98.2 F Pulse Rate 87 Respiratory Rate 13 Blood Pressure 150/77 H Pulse Oximetry 98 Intake & Output 09/15/17 09/16/17 09/16/17 18:59 06:59 18:59 Intake Total 800 / 800 870 / 870 Output Total 1750 / 1750 1400 / 1400 Balance -950 / -950 -530 / -530 Weight 176.8 kg Intake: IV 50 / 50 150 / 150 Bumex Inj 25 mg In 100 ml @ 0. 0 / 0 25 MG/HR 1 mls/hr IV.CONT .Q24H [facility] Rx#:[id number] Flexbumin 25% Inj 50 ML @ 60 50 / 50 50 / 50 mls/hr IV.SIG Q12H [facility] Rx#: [id number] Rocephin Inj 2,000 MG In NS Inj 100 / 100 100 ML @ 200 mls/hr IV.SIG Q24H [facility] Rx#:[id number] Oral 750 / 750 720 / 720 Output: Urine 1750 / 1750 1400 / 1400 Other: Date of Last Bowel Movement 09/14/17 09/14/17 09/14/17 # Bowel Movements 0 GENERAL: Obese WM,No distress SKIN: Warm and dry. HEAD: Normocephalic. EYES: No scleral icterus. No injection or drainage. NECK: Supple, trachea midline. No JVD or lymphadenopathy. CARDIOVASCULAR: Regular rate and rhythm without murmurs, gallops, or rubs. RESPIRATORY: Breath sounds equal bilaterally. No accessory muscle use. GASTROINTESTINAL: Abdomen soft, non-tender, nondistended. MUSCULOSKELETAL: No cyanosis, ++ edema. Scrotal odema. BACK: Nontender without obvious deformity. No CVA tenderness. Assessment and Plan - Plan IMPRESSION: 1. Hypercapnic respiratory insufficiency. 2. Chronic obstructive pulmonary disease. 3. Obstructive sleep apnea. 4. Achilles tendon repair and leg infection. 5. Diabetes mellitus. 5. Scrotal edema. PLAN: Aerosol nebs Supplement 02 Encourage to use CPAP at night SQ Lovenox Bumex 2 mg q 8 hrs monitor Lytes.
[2017-09-16] MEDS: Albumin Human 25% Inj 50 ML IV.SIG SCH ×2 (11:00→23:36)
--- NOTE | 2017-09-16 18:48 | P.PNNP ---
Subjective Interval history: Patient seen in AM, alert, has mild SOB, otherwise feeling better. Physical Exam Vital signs: Vital Signs 09/15/17 19:00 09/15/17 20:00 09/15/17 21:00 Temperature 98 F Pulse Rate 95 H 99 H 99 H Respiratory Rate 32 H 25 H 25 H Blood Pressure 142/77 H 158/80 H 144/67 H Pulse Oximetry 96 95 93 L 09/15/17 22:00 09/15/17 22:31 09/15/17 23:00 Temperature Pulse Rate 92 H 92 H Respiratory Rate 16 30 H 14 Blood Pressure 160/80 H 128/59 L Pulse Oximetry 92 L 93 L 09/16/17 00:00 09/16/17 01:00 09/16/17 02:00 Temperature 99.5 F Pulse Rate 90 99 H 86 Respiratory Rate 31 H 27 H 29 H Blood Pressure 122/59 L 147/83 H 108/57 L Pulse Oximetry 93 L 98 95 09/16/17 03:00 09/16/17 04:00 09/16/17 05:00 Temperature 99.4 F Pulse Rate 85 87 95 H Respiratory Rate 30 H 23 13 Blood Pressure 132/60 142/71 H 163/78 H Pulse Oximetry 95 96 92 L 09/16/17 06:00 09/16/17 07:00 09/16/17 08:00 Temperature 98.2 F Pulse Rate 82 82 87 Respiratory Rate 13 14 13 Blood Pressure 137/72 120/61 150/77 H Pulse Oximetry 100 96 98 09/16/17 09:45 09/16/17 10:00 09/16/17 12:00 Temperature 98.7 F Pulse Rate 79 84 Respiratory Rate 16 Blood Pressure 148/76 H Pulse Oximetry 98 96 09/16/17 13:33 09/16/17 14:00 09/16/17 16:19 Temperature Pulse Rate 84 70 Respiratory Rate Blood Pressure Pulse Oximetry 96 Intake & Output 09/15/17 09/16/17 09/16/17 18:59 06:59 18:59 Intake Total 800 / 800 870 / 870 Output Total 1750 / 1750 1400 / 1400 Balance -950 / -950 -530 / -530 Weight 176.8 kg Intake: IV 50 / 50 150 / 150 Bumex Inj 25 mg In 100 ml @ 0. 0 / 0 25 MG/HR 1 mls/hr IV.CONT .Q24H [facility] Rx#:[id number] Flexbumin 25% Inj 50 ML @ 60 50 / 50 50 / 50 mls/hr IV.SIG Q12H [facility] Rx#: [id number] Rocephin Inj 2,000 MG In NS Inj 100 / 100 100 ML @ 200 mls/hr IV.SIG Q24H [facility] Rx#:[id number] Oral 750 / 750 720 / 720 Output: Urine 1750 / 1750 1400 / 1400 Other: Date of Last Bowel Movement 09/14/17 09/14/17 09/14/17 # Bowel Movements 0 Narrative: General: NAD, AAOx3 Cardiac: regular Chest: Decrease air entry at bases, with occ. rhonchi. Abd: +BS, soft, distended, obese, nontender Ext: Anasarca flanks/lower ext/scrotum, right leg splinted Assessment and Plan - Assessment (1) Acute kidney injury superimposed on chronic kidney disease Code(s): N17.9 - Acute kidney failure, unspecified; N18.9 - Chronic kidney disease, unspecified Status: Acute - Plan Patient has Nephrotic Proteinuria, and develop Anasarca. BP is stable, Urine out put is good. On Bumex infusion and Metolazone. Creatinine is stable at 1.7- 1.8. Change the Bumex to TID, and Metolazone. Will need Renal Biopsy once stable. Edema is improving. Continue diuretics.
[2017-09-16] MEDS: Enoxaparin Inj 40 MG/0.4 ML Syringe SQ SCH (23:36)
[2017-09-17] MEDS: oxyCODONE/Acetaminophen 10/325 Tablet PO PRN ×4 (00:08→17:56)
[2017-09-17] MEDS: LORazepam 0.5 MG Tablet PO PRN ×3 (00:08→13:23)
[2017-09-17] MEDS: Sodium Chloride 0.65% Nasal Spray 45 ML Bottle EACH NARE SCH ×3 (03:54→21:00)
[2017-09-17] MEDS: Gabapentin 300 MG Capsule PO SCH ×3 (05:27→22:00)
[2017-09-17 06:22] LABS: Calcium 8.9 mg/dL (8.5-10.1); Carbon Dioxide 36.6 meq/L (21.0-32.0); Potassium 4.3 meq/L (3.5-5.1)
[2017-09-17] MEDS: Glimepiride 4 MG Tablet PO SCH ×2 (08:00→18:04)
[2017-09-17] MEDS: Insulin NovoLOG Aspart Correctional Sugar Inj SQ SCH ×3 (08:00→21:00)
[2017-09-17] MEDS: Carvedilol 12.5 MG Tablet PO SCH ×2 (08:01→21:00)
[2017-09-17] MEDS: Allopurinol 100 MG Tablet PO SCH (08:01)
[2017-09-17] MEDS: Nystatin Liq 500,000 UNIT/5 ML UDC SWISH-SWAL SCH ×4 (08:02→22:21)
[2017-09-17] MEDS: hydrALAZINE 25 MG Tablet PO SCH ×3 (08:02→17:58)
[2017-09-17] MEDS: metOLazone 5 MG Tablet PO SCH ×2 (09:00→21:00)
[2017-09-17] MEDS: Heparin Central Flush 100 UNIT/ML 5 ML Vial IV.FLUSH SCH (09:00)
[2017-09-17] MEDS: Senna/Docusate Sodium 8.6/50 MG Tablet PO SCH ×2 (09:00→21:00)
--- NOTE | 2017-09-17 09:15 | P.PNIM ---
Subjective Interval history: sitting on edge bed. Physical Exam Vital signs: Vital Signs 09/16/17 09:45 09/16/17 10:00 09/16/17 12:00 Temperature 98.7 F Pulse Rate 79 84 Respiratory Rate 16 Blood Pressure 148/76 H Pulse Oximetry 98 96 09/16/17 13:33 09/16/17 14:00 09/16/17 16:00 Temperature 98.9 F Pulse Rate 84 90 Respiratory Rate 20 Blood Pressure 138/80 Pulse Oximetry 96 97 09/16/17 16:19 09/16/17 17:33 09/16/17 20:00 Temperature 98 F Pulse Rate 70 89 Respiratory Rate 20 Blood Pressure 145/72 H Pulse Oximetry 97 96 09/16/17 20:18 09/16/17 20:38 09/17/17 00:00 Temperature 97.6 F Pulse Rate 84 85 Respiratory Rate 20 Blood Pressure 125/64 Pulse Oximetry 97 96 09/17/17 04:00 09/17/17 05:26 09/17/17 08:00 Temperature 98.7 F 98.9 F Pulse Rate 87 100 H Respiratory Rate 20 20 22 Blood Pressure 131/70 177/94 H Pulse Oximetry 98 96 Intake & Output 09/16/17 09/17/17 09/17/17 18:59 06:59 18:59 Intake Total 750 / 750 680 / 680 220 / 220 Output Total 500 / 500 950 / 950 300 / 300 Balance 250 / 250 -270 / -270 -80 / -80 Weight 178.3 kg Intake: IV 50 / 50 Flexbumin 25% Inj 50 ML @ 60 50 / 50 mls/hr IV.SIG Q12H [facility] Rx#: [id number] Oral 700 / 700 680 / 680 220 / 220 Anesthesia Amount 0 / 0 Other 0 / 0 Output: Urine 500 / 500 950 / 950 300 / 300 Estimated Blood Loss 0 / 0 Other: Date of Last Bowel Movement 09/14/17 # Bowel Movements 0 heart reg lung cta abd snt ext lower ext/scrotal anasarca . overall improved. rightleg bandaged. Results - Labs CBC & Chem 7: 09/12/17 03:50 09/17/17 05:26 Laboratory Results - last 24 hr 09/16/17 09/17/17 09/17/17 19:32 05:26 08:37 Sodium 135 L Potassium 4.3 D Chloride 92 L Carbon Dioxide 36.6 H Anion Gap 6 BUN 53 H Creatinine 2.02 H Estimated GFR 36 L POC Glucose 200 H 231 H Random Glucose 217 H Calcium 8.9 Microbiology 09/12/17 04:22 Blood - Peripheral Aerobic Blood Culture - Preliminary No growth in 4 days 09/12/17 04:22 Blood - Peripheral Anaerobic Blood Culture - Preliminary No growth in 4 days 09/12/17 04:18 Blood - Peripheral Aerobic Blood Culture - Preliminary No growth in 4 days 09/12/17 04:18 Blood - Peripheral Anaerobic Blood Culture - Preliminary No growth in 4 days - Procedures Right posterior Achilles incision and drainage 08/24/[address] Hull Assessment and Plan - Assessment (1) Rupture of right Achilles tendon Code(s): S86.011A - Strain of right Achilles tendon, initial encounter Status : Acute Plan: Open Achilles rupture, right - Recent admission with Achilles rupture - Pt underwent open repair of right Achilles tendon rupture with flexor hallucis longus tendon transfer and gastrocnemius recession, right lower extremity on 07/24/[address] Murillo. - Per podiatry, pt will need to be strict non-weight bearing for 6-8 weeks. - Pt was noted to have increased swelling and pain in the RLE on 08/04 - LE Doppler US (08/04) --> Is negative for DVT - Refused dc to snf and was noncompliant with weight bearing instructions. - Pt was readmitted with infection at operative site on 08/16 - He was seen by podiatry in clinic on 08/16 and sent to ED - MRI right ankle (08/16): 1. Postoperative change at the distal Achilles and calcaneus. Increased signal within the posterior calcaneus can all be consistent with postoperative change. It would be difficult to rule out osteomyelitis. 2. Fluid seen around the Achilles tendon. More superiorly in the mid lower leg, there is a larger fluid collection with peripheral enhancement. There is also a thinner fluid collection seen more superiorly in the proximal lower leg around the lateral aspect of the soleus muscle. These fluid collections could be postoperative seromas. An abscess could have a similar appearance. - vanco and Zosyn (08/17) - Rocephin (08/17 - present) - Rocephin stop date 10/07/17 - Comgmt with ID & Podiatry - Pt had a previous outpt culture taken on 08/11 which grew out Enterobacter cloacae - Right posterior Achilles incision and drainage 08/24/[address] Hull - Intraoperative wound Cx (08/24) --> Enterobacter cloacae - Plan to DC to SNF/rehab following hospitalization to ensure non-weight bearing of RLE and good recovery. Pt at risk for Right BKA. - The case was discussed with [facility]. Copay for SNF was defaulted. CM consulted. Pt agreeable for SNF but need to get accepting facility - Pt not ready for dc yet - Discussed dc abx with ID. orders written continue PT efforts. Volume overload Anasarca/edema Nephrotic range proteinuria - Pt was moved to ICU after Halicat and hypoxia on 08/31. Pt had received small dose of morphine a few hrs before the event. He was refusing bipap but now agreeable. Pt being followed by Dr Sawyer. - He continues with severe anasarca/lower ext edema and scrotal swelling. Also he has sleep apnea/hypoventilation and has hypoalbuminemia. - Procardia lowered to 30mg BID on 08/31, BP is stable. - Had right heart cath on last admission revealing increased right heart pressure. He has also some mild systolic dysfunction with EF 45% - Nephrology was consulted for evaluation of massive volume overload. - Pt continues to exhibit significant clinical volume overload and is NOT yet ready for discharge. - nephrology also following recommending and renal bx to evaluate for FSGS once patient stable - restrict fluids to 1.5 liters daily - Pt bumex converted back to IV push from gtt. kidney bx planned per renal. of note pt is on asa/plavix for cad and will need adressed before bx add left leg rolanda wrapping Obesity hypoventilation syndrome Hypercapnic respiratory insufficiency Obesity hypoventilation syndrome COPD - 2-D echocardiogram 07/23/17: - The left ventricular systolic function is mildly reduced with an estimated ejection fraction in the range of 45- 50%. - Mild infero-posterior hypokinesis - Mild concentric left ventricular hypertrophy. - The left atrial size is moderately dilated. - RHC completed (07/28) --> Class 2 Pulm HTN, PCW 23 - No Right heart strain, so sildenafil was stopped - Pt is noncompliant with CPAP - Pt sedated overnight - decrease flexeril to 5mg q8h prn - decrease norco to q6h prn - encourage pt to wear CPAP at night. COPD (chronic obstructive pulmonary disease) - chronic does not appear to be in acute exacerbation - Pt requiring 3-4L of supplemental O2 - Diabetes - Cont OHA and SSI. basal levemir - Titrate as needed HTN (hypertension) - cont current BP meds, Cozaar 50mg q12H, Hydralazine 50mg TID, Coreg 25mg BID - May try to lower or stop Procardia. - Hydralazine PO PRN Anemia - Pts H/H has slowly been declining. No noted active GIB - During the last admission the pt was transfused with 2 units PRBCs (08/10) - During recent admission pt underwent evaluation with EGD/Colonoscopy (08/11/17 ) with Dr. Mccormick - int/ext hemorrhoids - sigmoid diverticulosis - esophagitis - gastric biopsies taken, results pending - Repeat labs on 08/21/17 with Hgb 8.3/Hct 24.6 -> 7.7/23.5 (08/24) -> 7.8/24.2, 7.6 (08/27), 8.5 (08/28), 7.7 (09/07), 7.9 (09/08) - Hg 7.9 (09/10) - Iron studies 08/08/17 Iron 26, TIBC 244, % saturation 10.7, ferritin 246 - ferritin 154 (08/27), retic 82 (08/27); b12 515, folate 7.9 (08/26) - case informally d/w Hematology - since ferritin > 100, unlikely d/t ANAHI - 2 units PRBCs (08/27/17) - observe CAD (coronary artery disease) Recent history of pulmonary embolism - Patient had a PE approximately 8 months ago and was on Coumadin for until the cardiac cauterization 06/17/17 - Patient with recent cardiac catheterization with PCI 06/17/17 - After catheterization patient's Coumadin was DC'd and he was started on Aspirin and Plavix - Continue patient's Aspirin 81 mg daily, Plavix 75 mg PO daily, Atorvastatin 40 mg PO QHS and Coreg BID Anxiety and depression - Cont. Paxil 20mg daily (1) Rupture of right Achilles tendon Qualifiers: Encounter type: subsequent encounter Qualified Code(s): S86.011D - Strain of right Achilles tendon, subsequent encounter
[2017-09-17] MEDS: Insulin Detemir Inj 1,000 UNIT/10 ML Vial SQ SCH ×2 (09:30→21:00)
--- NOTE | 2017-09-17 11:19 | P.PNPL ---
Subjective Interval history: Patient is on 3L oxygen with good sats. He is lying in bed in NAD, Afebrile. Physical Exam Vital signs: Vital Signs 09/16/17 12:00 09/16/17 13:33 09/16/17 14:00 Temperature 98.7 F Pulse Rate 84 84 Respiratory Rate 16 Blood Pressure 148/76 H Pulse Oximetry 96 96 09/16/17 16:00 09/16/17 16:19 09/16/17 17:33 Temperature 98.9 F Pulse Rate 90 70 Respiratory Rate 20 Blood Pressure 138/80 Pulse Oximetry 97 97 09/16/17 20:00 09/16/17 20:18 09/16/17 20:38 Temperature 98 F Pulse Rate 89 84 Respiratory Rate 20 Blood Pressure 145/72 H Pulse Oximetry 96 97 09/17/17 00:00 09/17/17 04:00 09/17/17 05:26 Temperature 97.6 F 98.7 F Pulse Rate 85 87 Respiratory Rate 20 20 20 Blood Pressure 125/64 131/70 Pulse Oximetry 96 98 09/17/17 08:00 09/17/17 09:32 Temperature 98.9 F Pulse Rate 100 H Respiratory Rate 22 Blood Pressure 177/94 H Pulse Oximetry 96 98 Intake & Output 09/16/17 09/17/17 09/17/17 18:59 06:59 18:59 Intake Total 750 / 750 680 / 680 220 / 220 Output Total 500 / 500 950 / 950 300 / 300 Balance 250 / 250 -270 / -270 -80 / -80 Weight 178.3 kg Intake: IV 50 / 50 Flexbumin 25% Inj 50 ML @ 60 50 / 50 mls/hr IV.SIG Q12H [facility] Rx#: [id number] Oral 700 / 700 680 / 680 220 / 220 Anesthesia Amount 0 / 0 Other 0 / 0 Output: Urine 500 / 500 950 / 950 300 / 300 Estimated Blood Loss 0 / 0 Other: Date of Last Bowel Movement 09/14/17 # Bowel Movements 0 - Constitutional no acute distress - Routine HEENT Exam Head: Present: normocephalic, atraumatic Eye: Present: EOMI, PERRL, normal accommodation, conjunctivae pink ENT: Present: mucous membranes moist - Routine Neck Exam Present: supple, full ROM, trachea midline - Routine Respiratory Exam Present: CTA bilaterally - Routine Cardiovascular Exam Present: RRR, S1, S2 - Routine Abdominal Exam Present: soft, normoactive bowel sounds - Routine Extremities Exam Present: edema, full ROM, pulses intact - Routine Skin Exam Present: intact - Routine Neurological Exam Present: alert, oriented X3, CN II-XII intact - Routine Psychiatric Exam Present: normal affect Assessment and Plan - Plan 1)Acute hypoxemic and hypercapnic resp Insuff 2)JUDY/OHS 3)COPD 4)Hx PE 5)HTN 6)DM 7)Anemia Continue with oxygen keep sats >92% Bronchodilators Asses for home oxygen prior to discharge Continue with abx ( Rocephin) monitor for signs of infections ( fever, WBC) Sleep study as outpatient GI/DVT prophylaxis per primary team Continue treatment plan.
--- NOTE | 2017-09-17 11:23 | P.PNNP ---
Subjective Interval history: Patient is alert, mild SOB and pain i the leg and scrotal area. Physical Exam Vital signs: Vital Signs 09/16/17 12:00 09/16/17 13:33 09/16/17 14:00 Temperature 98.7 F Pulse Rate 84 84 Respiratory Rate 16 Blood Pressure 148/76 H Pulse Oximetry 96 96 09/16/17 16:00 09/16/17 16:19 09/16/17 17:33 Temperature 98.9 F Pulse Rate 90 70 Respiratory Rate 20 Blood Pressure 138/80 Pulse Oximetry 97 97 09/16/17 20:00 09/16/17 20:18 09/16/17 20:38 Temperature 98 F Pulse Rate 89 84 Respiratory Rate 20 Blood Pressure 145/72 H Pulse Oximetry 96 97 09/17/17 00:00 09/17/17 04:00 09/17/17 05:26 Temperature 97.6 F 98.7 F Pulse Rate 85 87 Respiratory Rate 20 20 20 Blood Pressure 125/64 131/70 Pulse Oximetry 96 98 09/17/17 08:00 09/17/17 09:32 Temperature 98.9 F Pulse Rate 100 H Respiratory Rate 22 Blood Pressure 177/94 H Pulse Oximetry 96 98 Intake & Output 09/16/17 09/17/17 09/17/17 18:59 06:59 18:59 Intake Total 750 / 750 680 / 680 220 / 220 Output Total 500 / 500 950 / 950 300 / 300 Balance 250 / 250 -270 / -270 -80 / -80 Weight 178.3 kg Intake: IV 50 / 50 Flexbumin 25% Inj 50 ML @ 60 50 / 50 mls/hr IV.SIG Q12H [facility] Rx#: [id number] Oral 700 / 700 680 / 680 220 / 220 Anesthesia Amount 0 / 0 Other 0 / 0 Output: Urine 500 / 500 950 / 950 300 / 300 Estimated Blood Loss 0 / 0 Other: Date of Last Bowel Movement 09/14/17 # Bowel Movements 0 Narrative: General: NAD, AAOx3 Cardiac: regular Chest: Decrease air entry at bases, with occ. rhonchi. Abd: +BS, soft, distended, obese, nontender Ext: Anasarca flanks/lower ext/scrotum, right leg splinted Assessment and Plan - Assessment (1) Acute kidney injury superimposed on chronic kidney disease Code(s): N17.9 - Acute kidney failure, unspecified; N18.9 - Chronic kidney disease, unspecified Status: Acute - Plan Patient has Nephrotic Proteinuria, and develop Anasarca. BP is stable, Urine out put is good. On Bumex infusion and Metolazone. Creatinine increase to 2.0. If continue to increase, will decrease Lasix. Change the Bumex to TID, and Metolazone. Will need Renal Biopsy but now on ASA and Plavix, will need to delay the Kidney Biopsy for now. Edema is now almost same. Continue diuretics.
[2017-09-17] MEDS: Albumin Human 25% Inj 50 ML IV.SIG SCH (12:00)
[2017-09-17] MEDS: Enoxaparin Inj 40 MG/0.4 ML Syringe SQ SCH (23:00)
[2017-09-18] MEDS: Albumin Human 25% Inj 50 ML IV.SIG SCH ×3 (00:07→23:00)
[2017-09-18] MEDS: LORazepam 0.5 MG Tablet PO PRN ×3 (00:33→15:30)
[2017-09-18] MEDS: oxyCODONE/Acetaminophen 10/325 Tablet PO PRN ×4 (02:03→15:30)
[2017-09-18] MEDS: Heparin Central Flush 100 UNIT/ML 5 ML Vial IV.FLUSH PRN ×2 (02:06→05:45)
[2017-09-18] MEDS: Insulin NovoLOG Aspart Correctional Sugar Inj SQ SCH ×4 (03:06→21:00)
[2017-09-18] MEDS: Sodium Chloride 0.65% Nasal Spray 45 ML Bottle EACH NARE SCH ×3 (03:07→21:00)
[2017-09-18] MEDS: Gabapentin 300 MG Capsule PO SCH ×3 (05:45→22:21)
[2017-09-18 06:37] LABS: Calcium 8.9 mg/dL (8.5-10.1); Carbon Dioxide 37.1 meq/L (21.0-32.0); Potassium 4.4 meq/L (3.5-5.1)
[2017-09-18] MEDS: Nystatin Liq 500,000 UNIT/5 ML UDC SWISH-SWAL SCH ×4 (09:00→22:19)
[2017-09-18] MEDS: Heparin Central Flush 100 UNIT/ML 5 ML Vial IV.FLUSH SCH (09:00)
[2017-09-18] MEDS: Carvedilol 12.5 MG Tablet PO SCH ×2 (09:00→21:00)
[2017-09-18] MEDS: Allopurinol 100 MG Tablet PO SCH (09:00)
[2017-09-18] MEDS: hydrALAZINE 25 MG Tablet PO SCH ×3 (09:00→18:36)
[2017-09-18] MEDS: metOLazone 5 MG Tablet PO SCH (09:00)
[2017-09-18] MEDS: Glimepiride 4 MG Tablet PO SCH ×2 (09:00→17:45)
--- NOTE | 2017-09-18 09:06 | P.PNPL ---
Subjective Interval history: Patient is on 3L oxygen, awake, alert lying in bed in NAD. Afebrile. Physical Exam Vital signs: Vital Signs 09/17/17 09:32 09/17/17 12:57 09/17/17 15:00 Temperature Pulse Rate 92 H 73 Respiratory Rate 16 16 Blood Pressure Pulse Oximetry 98 09/17/17 19:59 09/17/17 20:00 09/17/17 23:41 Temperature 96.6 F L Pulse Rate 92 H 91 H 90 Respiratory Rate 18 20 18 Blood Pressure 129/68 Pulse Oximetry 99 95 09/18/17 00:00 09/18/17 03:29 09/18/17 04:00 Temperature 98.6 F 99.0 F Pulse Rate 91 H 82 94 H Respiratory Rate 18 18 18 Blood Pressure 141/66 H 124/69 Pulse Oximetry 97 94 L Intake & Output 09/17/17 09/18/17 09/18/17 18:59 06:59 18:59 Intake Total 270 / 270 200 / 200 Output Total 300 / 300 Balance -30 / -30 200 / 200 Intake: IV 50 / 50 200 / 200 Flexbumin 25% Inj 50 ML @ 60 50 / 50 100 / 100 mls/hr IV.SIG Q12H [facility] Rx#: [id number] Rocephin Inj 2,000 MG In NS Inj 100 / 100 100 ML @ 200 mls/hr IV.SIG Q24H [facility] Rx#:[id number] Oral 220 / 220 Output: Urine 300 / 300 Other: Date of Last Bowel Movement 09/14/17 - Constitutional no acute distress - Routine HEENT Exam Head: Present: normocephalic, atraumatic Eye: Present: EOMI, PERRL, normal accommodation, conjunctivae pink - Routine Neck Exam Present: supple, full ROM, trachea midline - Routine Respiratory Exam Present: CTA bilaterally - Routine Cardiovascular Exam Present: RRR, S1, S2 - Routine Abdominal Exam Present: soft, normoactive bowel sounds - Routine Extremities Exam Present: pulses intact - Routine Skin Exam Present: intact - Routine Neurological Exam Present: alert, oriented X3, CN II-XII intact - Routine Psychiatric Exam Present: normal affect Assessment and Plan - Plan 1)Acute hypoxemic and hypercapnic resp Insuff 2)JUDY/OHS 3)COPD 4)Hx PE 5)HTN 6)DM 7)Anemia Continue with oxygen keep sats >92% Bronchodilators CXR 09/12: Improving interstitial edema Asses for home oxygen prior to discharge Continue with abx ( Rocephin) monitor for signs of infections ( fever, WBC) Sleep study as outpatient GI/DVT prophylaxis per primary team Continue treatment plan.
--- NOTE | 2017-09-18 09:40 | P.PNIM ---
Subjective Interval history: pt still waiting on the rolanda wrap ordered. Physical Exam Vital signs: Vital Signs 09/17/17 12:57 09/17/17 15:00 09/17/17 19:59 Temperature Pulse Rate 92 H 73 92 H Respiratory Rate 16 16 18 Blood Pressure Pulse Oximetry 99 09/17/17 20:00 09/17/17 23:41 09/18/17 00:00 Temperature 96.6 F L 98.6 F Pulse Rate 94 H 90 91 H Respiratory Rate 20 18 18 Blood Pressure 129/68 141/66 H Pulse Oximetry 95 97 09/18/17 03:29 09/18/17 04:00 09/18/17 09:29 Temperature 99.0 F Pulse Rate 82 94 H 88 Respiratory Rate 18 18 15 Blood Pressure 124/69 Pulse Oximetry 94 L 94 L Intake & Output 09/17/17 09/18/17 09/18/17 18:59 06:59 18:59 Intake Total 930 / 930 200 / 200 Output Total 1200 / 1200 Balance -270 / -270 200 / 200 Intake: IV 50 / 50 200 / 200 Flexbumin 25% Inj 50 ML @ 60 50 / 50 100 / 100 mls/hr IV.SIG Q12H [facility] Rx#: [id number] Rocephin Inj 2,000 MG In NS Inj 100 / 100 100 ML @ 200 mls/hr IV.SIG Q24H [facility] Rx#:[id number] Oral 880 / 880 Output: Urine 1200 / 1200 Other: Date of Last Bowel Movement 09/14/17 09/14/17 heent neg heart reg lung cta abd s/nt ext anasarca/scrotal edema overall stable right leg wrapped. Results - Labs CBC & Chem 7: 09/12/17 03:50 09/18/17 05:40 Laboratory Results - last 24 hr 09/17/17 09/17/17 09/18/17 13:26 20:46 05:40 Sodium 137 Potassium 4.4 Chloride 94 L Carbon Dioxide 37.1 H Anion Gap 6 BUN 59 H Creatinine 1.96 H Estimated GFR 37 L POC Glucose 235 H 236 H Random Glucose 230 H Calcium 8.9 Microbiology 09/12/17 04:22 Blood - Peripheral Aerobic Blood Culture - Final No growth in 5 days 09/12/17 04:22 Blood - Peripheral Anaerobic Blood Culture - Final No growth in 5 days 09/12/17 04:18 Blood - Peripheral Aerobic Blood Culture - Final No growth in 5 days 09/12/17 04:18 Blood - Peripheral Anaerobic Blood Culture - Final No growth in 5 days - Procedures Right posterior Achilles incision and drainage 08/24/[address] Hull Assessment and Plan - Assessment (1) Rupture of right Achilles tendon Code(s): S86.011A - Strain of right Achilles tendon, initial encounter Status : Acute Plan: Open Achilles rupture, right - Recent admission with Achilles rupture - Pt underwent open repair of right Achilles tendon rupture with flexor hallucis longus tendon transfer and gastrocnemius recession, right lower extremity on 07/24/[address] Murillo. - Per podiatry, pt will need to be strict non-weight bearing for 6-8 weeks. - Pt was noted to have increased swelling and pain in the RLE on 08/04 - LE Doppler US (08/04) --> Is negative for DVT - Refused dc to snf and was noncompliant with weight bearing instructions. - Pt was readmitted with infection at operative site on 08/16 - He was seen by podiatry in clinic on 08/16 and sent to ED - MRI right ankle (08/16): 1. Postoperative change at the distal Achilles and calcaneus. Increased signal within the posterior calcaneus can all be consistent with postoperative change. It would be difficult to rule out osteomyelitis. 2. Fluid seen around the Achilles tendon. More superiorly in the mid lower leg, there is a larger fluid collection with peripheral enhancement. There is also a thinner fluid collection seen more superiorly in the proximal lower leg around the lateral aspect of the soleus muscle. These fluid collections could be postoperative seromas. An abscess could have a similar appearance. - vanco and Zosyn (08/17) - Rocephin (08/17 - present) - Rocephin stop date 10/07/17 - Comgmt with ID & Podiatry - Pt had a previous outpt culture taken on 08/11 which grew out Enterobacter cloacae - Right posterior Achilles incision and drainage 08/24/[address] Hull - Intraoperative wound Cx (08/24) --> Enterobacter cloacae - Plan to DC to SNF/rehab following hospitalization to ensure non-weight bearing of RLE and good recovery. Pt at risk for Right BKA. - The case was discussed with [facility]. Copay for SNF was defaulted. CM consulted. Pt agreeable for SNF but need to get accepting facility - Pt not ready for dc yet - Discussed dc abx with ID. orders written continue PT efforts. Volume overload Anasarca/edema Nephrotic range proteinuria - Pt was moved to ICU after Halicat and hypoxia on 08/31. Pt had received small dose of morphine a few hrs before the event. He was refusing bipap but now agreeable. Pt being followed by Dr Sawyer. - He continues with severe anasarca/lower ext edema and scrotal swelling. Also he has sleep apnea/hypoventilation and has hypoalbuminemia. - Procardia lowered to 30mg BID on 08/31, BP is stable. - Had right heart cath on last admission revealing increased right heart pressure. He has also some mild systolic dysfunction with EF 45% - Nephrology was consulted for evaluation of massive volume overload. - Pt continues to exhibit significant clinical volume overload and is NOT yet ready for discharge. - nephrology also following recommending and renal bx to evaluate for FSGS once patient stable - restrict fluids to 1.5 liters daily - Pt bumex converted back to IV push from gtt. kidney bx planned per renal but unable to stop asa/plavix. add left leg rolanda wrapping cont iv diureses per renal pt will need snf or rehab placement once accepted Obesity hypoventilation syndrome Hypercapnic respiratory insufficiency Obesity hypoventilation syndrome COPD - 2-D echocardiogram 07/23/17: - The left ventricular systolic function is mildly reduced with an estimated ejection fraction in the range of 45- 50%. - Mild infero-posterior hypokinesis - Mild concentric left ventricular hypertrophy. - The left atrial size is moderately dilated. - RHC completed (07/28) --> Class 2 Pulm HTN, PCW 23 - No Right heart strain, so sildenafil was stopped - Pt is noncompliant with CPAP - Pt sedated overnight - decrease flexeril to 5mg q8h prn - decrease norco to q6h prn - encourage pt to wear CPAP at night. COPD (chronic obstructive pulmonary disease) - chronic does not appear to be in acute exacerbation - Pt requiring 3-4L of supplemental O2 - Diabetes - Cont OHA and SSI. basal levemir - continue titration up on levemir today. HTN (hypertension) - cont current BP meds, Cozaar 50mg q12H, Hydralazine 50mg TID, Coreg 25mg BID - May try to lower or stop Procardia. - Hydralazine PO PRN Anemia - Pts H/H has slowly been declining. No noted active GIB - During the last admission the pt was transfused with 2 units PRBCs (08/10) - During recent admission pt underwent evaluation with EGD/Colonoscopy (08/11/17 ) with Dr. Mccormick - int/ext hemorrhoids - sigmoid diverticulosis - esophagitis - gastric biopsies taken, results pending - Repeat labs on 08/21/17 with Hgb 8.3/Hct 24.6 -> 7.7/23.5 (08/24) -> 7.8/24.2, 7.6 (08/27), 8.5 (08/28), 7.7 (09/07), 7.9 (09/08) - Hg 7.9 (09/10) - Iron studies 08/08/17 Iron 26, TIBC 244, % saturation 10.7, ferritin 246 - ferritin 154 (08/27), retic 82 (08/27); b12 515, folate 7.9 (08/26) - case informally d/w Hematology - since ferritin > 100, unlikely d/t ANAHI - 2 units PRBCs (08/27/17) - observe CAD (coronary artery disease) Recent history of pulmonary embolism - Patient had a PE approximately 8 months ago and was on Coumadin for until the cardiac cauterization 06/17/17 - Patient with recent cardiac catheterization with PCI 06/17/17 - After catheterization patient's Coumadin was DC'd and he was started on Aspirin and Plavix - Continue patient's Aspirin 81 mg daily, Plavix 75 mg PO daily, Atorvastatin 40 mg PO QHS and Coreg BID Anxiety and depression - Cont. Paxil 20mg daily (1) Rupture of right Achilles tendon Qualifiers: Encounter type: subsequent encounter Qualified Code(s): S86.011D - Strain of right Achilles tendon, subsequent encounter
[2017-09-18] MEDS: Insulin Detemir Inj 1,000 UNIT/10 ML Vial SQ SCH ×2 (10:00→21:00)
[2017-09-18] MEDS: Senna/Docusate Sodium 8.6/50 MG Tablet PO SCH ×2 (10:19→21:00)
--- NOTE | 2017-09-18 10:54 | P.PNPOD ---
Subjective Interval history: s/p achilles tendon repair with FHL tendon transfer, approximately [address] Murillo s/p I&D R leg Dr Hull Physical Exam Vital signs: Vital Signs 09/17/17 12:57 09/17/17 15:00 09/17/17 19:59 Temperature Pulse Rate 92 H 73 92 H Respiratory Rate 16 16 18 Blood Pressure Pulse Oximetry 99 09/17/17 20:00 09/17/17 23:41 09/18/17 00:00 Temperature 96.6 F L 98.6 F Pulse Rate 94 H 90 91 H Respiratory Rate 20 18 18 Blood Pressure 129/68 141/66 H Pulse Oximetry 95 97 09/18/17 03:29 09/18/17 04:00 09/18/17 08:15 Temperature 99.0 F Pulse Rate 82 94 H Respiratory Rate 18 18 22 Blood Pressure 124/69 Pulse Oximetry 94 L 09/18/17 09:29 Temperature Pulse Rate 88 Respiratory Rate 15 Blood Pressure Pulse Oximetry 94 L Intake & Output 09/17/17 09/18/17 09/18/17 18:59 06:59 18:59 Intake Total 930 / 930 860 / 860 Output Total 1200 / 1200 900 / 900 Balance -270 / -270 -40 / -40 Weight 175.9 kg Intake: IV 50 / 50 200 / 200 Flexbumin 25% Inj 50 ML @ 60 50 / 50 100 / 100 mls/hr IV.SIG Q12H [facility] Rx#: [id number] Rocephin Inj 2,000 MG In NS Inj 100 / 100 100 ML @ 200 mls/hr IV.SIG Q24H [facility] Rx#:[id number] Oral 880 / 880 660 / 660 Output: Urine 1200 / 1200 900 / 900 Other: Date of Last Bowel Movement 09/14/17 09/14/17 Narrative: R posterior ankle with sutures intact. Minimal serous drainage. Significantly reduced edema. No erythema. Small open area to central incision site with minimal serous drainage. No sign of active infection at this time. Mild tenderness Medications and Allergies Active Medications: Active Medications Al Hydroxide/Mg Hydroxide (Milk Of Magnesia Liq) 30 ml PO Q12H PRN PRN Reason: MILD CONSTIPATION Albuterol (Duoneb Neb (Prn)) 1 ampul NEB Q2HR NEB PRN PRN Reason: DYSPNEA Albuterol (Duoneb Neb (Nara)) 1 ampul NEB Q4HR NEB [facility] Last Admin: 09/18/17 09:26 Dose: 1 ampul Allopurinol (Zyloprim) 100 mg PO DAILY [facility] Last Admin: 09/17/17 08:01 Dose: 100 mg Aspirin (Ecotrin) 81 mg PO DAILY [facility] Last Admin: 09/17/17 08:02 Dose: 81 mg Atorvastatin Calcium (Lipitor) 40 mg PO HS [facility] Last Admin: 09/17/17 21:00 Dose: 40 mg Benzocaine/Menthol (Chloraseptic Sore Throat Lozenge) 1 lozenge BUCCAL Q2HR PRN PRN Reason: sore throat Bisacodyl (Dulcolax Supp) 10 mg RECTAL DAILY PRN PRN Reason: SEVERE CONSTIPATION Bumetanide (Bumex Inj) 2 mg IV.PUSH TID [facility] Last Admin: 09/18/17 09:09 Dose: 2 mg Carvedilol (Coreg) 25 mg PO BID [facility] Last Admin: 09/18/17 09:00 Dose: 25 mg Clopidogrel Bisulfate (Plavix) 75 mg PO DAILY [facility] Last Admin: 09/18/17 09:00 Dose: 75 mg Cyclobenzaprine HCl (Flexeril) 5 mg PO Q8H PRN PRN Reason: MUSCLE SPASM Last Admin: 09/18/17 02:05 Dose: 5 mg Dextrose (D50w Vial) 50 ml IV.PUSH UNSCH PRN PRN Reason: PER HYPOGLYCEMIA PROTOCOL Enoxaparin Sodium (Lovenox Inj) 40 mg SQ Q24H [facility] Last Admin: 09/17/17 23:00 Dose: 40 mg Gabapentin (Neurontin) 300 mg PO Q8HR [facility] Last Admin: 09/18/17 05:45 Dose: 300 mg Glimepiride (Amaryl) 4 mg PO BIDAC [facility] Last Admin: 09/18/17 09:00 Dose: 4 mg Glucagon (Glucagon Inj) 1 mg OTHER PRN PRN PRN Reason: for Hypoglycemia Protocol Heparin Sodium (Porcine) (Heparin Central Flush) 0 unit IV.FLUSH DAILY [facility] Last Admin: 09/17/17 09:00 Dose: 200 unit Heparin Sodium (Porcine) (Heparin Central Flush) 0 unit IV.FLUSH PRN PRN PRN Reason: Flush PICC Line Last Admin: 09/18/17 05:45 Dose: 200 unit Hydralazine HCl (Apresoline) 50 mg PO TID [facility] Last Admin: 09/18/17 09:00 Dose: 50 mg Hydrocortisone Acetate (Nutracort 1% Oint) 1 applicatio TOPICAL BID [facility] Stop: 09/20/17 08:00 Last Admin: 09/17/17 21:00 Dose: 1 applicatio Hydrocortisone Acetate (Nutracort 1% Oint) 1 applicatio TOPICAL BID [facility] Stop: 09/21/17 09:01 Last Admin: 09/17/17 21:00 Dose: Not Given Ceftriaxone Sodium 2,000 mg/ (Sodium Chloride) 100 mls @ 200 mls/hr IV.SIG Q24H [facility] Last Infusion: 09/17/17 23:12 Dose: Infused Albumin Human (Flexbumin 25% Inj) 50 mls @ 60 mls/hr IV.SIG Q12H [facility] Last Infusion: 09/18/17 01:07 Dose: Infused Insulin Aspart (Novolog Insulin Suppl Scale Inj) 0 unit SQ ACHS [facility]; Protocol Last Admin: 09/18/17 03:06 Dose: Not Given Insulin Detemir (Levemir Inj) 15 unit SQ BID [facility] Lactulose (Lactulose Liq) 30 ml PO DAILY PRN PRN Reason: SEVERE CONSTIPATION Lorazepam (Ativan) 0.5 mg PO Q6H PRN PRN Reason: ANXIETY Last Admin: 09/18/17 06:44 Dose: 0.5 mg Losartan Potassium (Cozaar) 50 mg PO Q12HR [facility] Last Admin: 09/18/17 09:00 Dose: 50 mg Metolazone (Zaroxolyn) 5 mg PO BID [facility] Last Admin: 09/18/17 09:00 Dose: 5 mg Metoprolol Tartrate (Lopressor Inj) 5 mg IV.PUSH Q6H PRN PRN Reason: Sbp>170, Dbp>90 Naloxone HCl (Narcan Inj) 0.4 mg IV.PUSH UNSCH PRN PRN Reason: SEE LABEL COMMENTS Nifedipine (Procardia Xl) 30 mg PO BID [facility] Last Admin: 09/18/17 10:20 Dose: 30 mg Nystatin (Mycostatin Liq) 5 ml SWISH-SWAL QID [facility] Last Admin: 09/17/17 22:21 Dose: 5 ml Ondansetron HCl (Zofran Inj) 4 mg IV.PUSH Q6H PRN PRN Reason: NAUSEA OR VOMITING Last Admin: 09/12/17 02:43 Dose: 4 mg Oxycodone/Acetaminophen (Percocet 10/325 Mg) 1 tab PO Q4H PRN PRN Reason: pain 3-10 Last Admin: 09/18/17 06:36 Dose: 1 tab Pantoprazole Sodium (Protonix) 40 mg PO DAILY [facility] Last Admin: 09/18/17 10:19 Dose: 40 mg Paroxetine HCl (Paxil) 20 mg PO DAILY [facility] Last Admin: 09/18/17 10:19 Dose: 20 mg Senna/Docusate Sodium (Ely-Colace) 1 tab PO BID [facility] Last Admin: 09/18/17 10:19 Dose: 1 tab Sennosides (Senokot) 17.2 mg PO Q12H PRN PRN Reason: MODERATE CONSTIPATION Sodium Chloride (Ns Flush) 2 ml IV.FLUSH UNSCH PRN PRN Reason: FLUSH AFTER USING IV ACCESS Last Admin: 09/03/17 08:58 Dose: 2 ml Sodium Chloride (Ns Flush) 2 ml IV.FLUSH BID [facility] Last Admin: 09/17/17 21:00 Dose: 2 ml Sodium Chloride (Ns Flush) 0 ml IV.FLUSH DAILY [facility] Last Admin: 09/17/17 09:00 Dose: 10 ml Sodium Chloride (Ns Flush) 0 ml IV.FLUSH PRN PRN PRN Reason: FLUSH AFTER USING IV ACCESS Sodium Chloride (Ns Flush) 0 ml IV.FLUSH PRN PRN PRN Reason: Flush After Blood Draws Sodium Chloride ([place] Nasal [place]) 1 spray EACH NARE Q6H [facility] Last Admin: 09/18/17 03:07 Dose: 1 spray Temazepam (Restoril) 15 mg PO HS PRN PRN Reason: INSOMNIA Last Admin: 08/29/17 21:47 Dose: 15 mg Throat Lozenges (Chloraseptic [place]) 2 spray OROPHARYNG Q2H PRN PRN Reason: sore throat Allergies Allergy/AdvReac Type Severity Reaction Status Date / Time codeine Allergy Severe Itching Verified 08/16/17 19:14 quetiapine Allergy Intermediate Hallucinati Verified 08/16/17 19:14 ons tramadol Allergy Unknown UNKNOWN Verified 08/20/17 10:36 clonidine AdvReac Severe ARNDT, dry Verified 08/20/17 10:36 mouth, "felt drunk" lisinopril AdvReac Unknown abnormal Verified 08/16/17 19:14 labs K level Home Medications Medication Instructions Recorded Confirmed Type allopurinol 100 mg PO DAILY 08/20/17 08/20/17 History aspirin 81 mg PO DAILY 08/20/17 08/20/17 History atorvastatin 40 mg PO HS 08/20/17 08/20/17 History carvedilol 25 mg PO BID 08/20/17 08/20/17 History clindamycin HCl 300 mg PO Q6H 08/20/17 08/20/17 History clopidogrel 75 mg PO DAILY 08/20/17 08/20/17 History furosemide 40 mg PO DAILY 08/20/17 08/20/17 History gabapentin 300 mg PO Q8H 08/20/17 08/20/17 History glimepiride 2 mg PO BIDAC 08/20/17 08/20/17 History hydralazine 50 mg PO TID 08/20/17 08/20/17 History hydrocodone-acetaminophen 1 tab PO Q4H PRN 08/20/17 08/20/17 History insulin aspart U-100 [Novolog 1 sliding scale dose SUB-Q 08/20/17 08/20/17 History U-100 Insulin aspart] DIRECTED losartan 50 mg PO Q12H 08/20/17 08/20/17 History metformin 750 mg PO BID 08/20/17 08/20/17 History nifedipine 60 mg PO Q12H 08/20/17 08/20/17 History nystatin 5 ml PO QID 08/20/17 08/20/17 History pantoprazole 40 mg PO DAILY 08/20/17 08/20/17 History paroxetine HCl 20 mg PO DAILY 08/20/17 08/20/17 History Results - Labs CBC & Chem 7: 09/12/17 03:50 09/18/17 05:40 Laboratory Results - last 24 hr 09/17/17 09/17/17 09/18/17 13:26 20:46 05:40 Sodium 137 Potassium 4.4 Chloride 94 L Carbon Dioxide 37.1 H Anion Gap 6 BUN 59 H Creatinine 1.96 H Estimated GFR 37 L POC Glucose 235 H 236 H Random Glucose 230 H Calcium 8.9 09/18/17 10:12 Sodium Potassium Chloride Carbon Dioxide Anion Gap BUN Creatinine Estimated GFR POC Glucose 414 H Random Glucose Calcium Microbiology 09/12/17 04:22 Blood - Peripheral Aerobic Blood Culture - Final No growth in 5 days 09/12/17 04:22 Blood - Peripheral Anaerobic Blood Culture - Final No growth in 5 days 09/12/17 04:18 Blood - Peripheral Aerobic Blood Culture - Final No growth in 5 days 09/12/17 04:18 Blood - Peripheral Anaerobic Blood Culture - Final No growth in 5 days - Procedures Right posterior Achilles incision and drainage 08/24/[address] Hull Assessment and Plan - Assessment (1) Abscess of right lower leg Code(s): L02.415 - Cutaneous abscess of right lower limb Status: Acute (2) Rupture of right Achilles tendon Code(s): S86.011A - Strain of right Achilles tendon, initial encounter Status : Acute - Plan Changed dressing Right lower extremity and wound continues to improve Continue dressing changes as ordered. Will evaluate for suture removal in 1 week. Strict nonweightbearing right lower extremity. (2) Rupture of right Achilles tendon Qualifiers: Encounter type: subsequent encounter Qualified Code(s): S86.011D - Strain of right Achilles tendon, subsequent encounter
--- NOTE | 2017-09-18 11:47 | P.PNNP ---
Subjective Interval history: Patient is alert, mild SOB, still has scrotal pain and leg swelling. Physical Exam Vital signs: Vital Signs 09/17/17 12:57 09/17/17 15:00 09/17/17 19:59 Temperature Pulse Rate 92 H 73 92 H Respiratory Rate 16 16 18 Blood Pressure Pulse Oximetry 99 09/17/17 20:00 09/17/17 23:41 09/18/17 00:00 Temperature 96.6 F L 98.6 F Pulse Rate 94 H 90 91 H Respiratory Rate 20 18 18 Blood Pressure 129/68 141/66 H Pulse Oximetry 95 97 09/18/17 03:29 09/18/17 04:00 09/18/17 08:15 Temperature 99.0 F Pulse Rate 82 94 H Respiratory Rate 18 18 22 Blood Pressure 124/69 Pulse Oximetry 94 L 09/18/17 09:29 Temperature Pulse Rate 88 Respiratory Rate 15 Blood Pressure Pulse Oximetry 94 L Intake & Output 09/17/17 09/18/17 09/18/17 18:59 06:59 18:59 Intake Total 930 / 930 860 / 860 Output Total 1200 / 1200 900 / 900 Balance -270 / -270 -40 / -40 Weight 175.9 kg Intake: IV 50 / 50 200 / 200 Flexbumin 25% Inj 50 ML @ 60 50 / 50 100 / 100 mls/hr IV.SIG Q12H [facility] Rx#: [id number] Rocephin Inj 2,000 MG In NS Inj 100 / 100 100 ML @ 200 mls/hr IV.SIG Q24H [facility] Rx#:[id number] Oral 880 / 880 660 / 660 Output: Urine 1200 / 1200 900 / 900 Other: Date of Last Bowel Movement 09/14/17 09/14/17 Narrative: General: NAD, AAOx3 Cardiac: regular Chest: Decrease air entry at bases, with occ. rhonchi. Abd: +BS, soft, distended, obese, nontender Ext: Anasarca flanks/lower ext/scrotum, right leg splinted Assessment and Plan - Assessment (1) Acute kidney injury superimposed on chronic kidney disease Code(s): N17.9 - Acute kidney failure, unspecified; N18.9 - Chronic kidney disease, unspecified Status: Acute - Plan Patient has Nephrotic Proteinuria, and develop Anasarca. BP is stable, Urine out put is good. On Bumex infusion and Metolazone. Creatinine increase to 2.0. If continue to increase, will decrease Lasix. Change the Bumex to TID, and Metolazone. Will need Renal Biopsy but now on ASA and Plavix, will need to delay the Kidney Biopsy for now. Edema is now almost same. Increase Bumex to 4 mg TID. Continue Metolazone.
[2017-09-18] MEDS: Enoxaparin Inj 40 MG/0.4 ML Syringe SQ SCH (23:00)
[2017-09-19] MEDS: oxyCODONE/Acetaminophen 10/325 Tablet PO PRN ×4 (02:00→22:38)
[2017-09-19] MEDS: LORazepam 0.5 MG Tablet PO PRN ×3 (02:02→17:49)
[2017-09-19] MEDS: Sodium Chloride 0.65% Nasal Spray 45 ML Bottle EACH NARE SCH ×3 (03:00→15:38)
[2017-09-19] MEDS: Gabapentin 300 MG Capsule PO SCH ×3 (06:00→22:13)
[2017-09-19 07:39] LABS: Carbon Dioxide 38.1 meq/L (21.0-32.0); Potassium 4.4 meq/L (3.5-5.1)
[2017-09-19] MEDS: Carvedilol 12.5 MG Tablet PO SCH ×2 (10:27→22:13)
[2017-09-19] MEDS: Nystatin Liq 500,000 UNIT/5 ML UDC SWISH-SWAL SCH ×4 (10:27→22:14)
[2017-09-19] MEDS: Senna/Docusate Sodium 8.6/50 MG Tablet PO SCH ×2 (10:28→22:14)
[2017-09-19] MEDS: Heparin Central Flush 100 UNIT/ML 5 ML Vial IV.FLUSH SCH (10:29)
[2017-09-19] MEDS: hydrALAZINE 25 MG Tablet PO SCH ×3 (10:29→17:50)
--- NOTE | 2017-09-19 10:38 | P.PNNP ---
Subjective Interval history: Denies any shortness of breath, Creatinine slightly increased at 2.01. Continues to have anasarca. <Beth Bolanos - Last Filed: 09/19/17 10:26> Physical Exam Vital signs: Vital Signs 09/18/17 12:00 09/18/17 12:13 09/18/17 16:00 Temperature 98.6 F 98.4 F Pulse Rate 88 97 H 93 H Respiratory Rate 20 16 20 Blood Pressure 118/80 122/69 Pulse Oximetry 98 96 09/18/17 17:03 09/18/17 18:33 09/18/17 21:50 Temperature Pulse Rate 105 H 92 H Respiratory Rate 15 20 18 Blood Pressure Pulse Oximetry 95 09/19/17 00:06 09/19/17 01:00 09/19/17 03:46 Temperature Pulse Rate 96 H 91 H Respiratory Rate 14 18 Blood Pressure Pulse Oximetry 98 09/19/17 05:00 09/19/17 07:35 Temperature 98.7 F Pulse Rate 91 H Respiratory Rate 20 Blood Pressure 165/72 H Pulse Oximetry 98 99 Intake & Output 09/18/17 09/19/17 09/19/17 18:59 06:59 18:59 Intake Total 550 / 550 950 / 950 50 / 50 Output Total 2500 / 2500 3500 / 3500 Balance -1950 / -1950 -2550 / -2550 50 / 50 Weight 180.4 kg Intake: IV 50 / 50 100 / 100 50 / 50 Flexbumin 25% Inj 50 ML @ 60 50 / 50 50 / 50 mls/hr IV.SIG Q12H [facility] Rx#: [id number] Rocephin Inj 2,000 MG In NS Inj 100 / 100 100 ML @ 200 mls/hr IV.SIG Q24H [facility] Rx#:[id number] Oral 500 / 500 850 / 850 Output: Urine 2500 / 2500 3500 / 3500 Other: Date of Last Bowel Movement 09/18/17 09/18/17 # Bowel Movements 2 - Constitutional no acute distress - Routine HEENT Exam Head: Present: normocephalic ENT: Present: mucous membranes moist - Routine Neck Exam Absent: supple, JVD - Routine Respiratory Exam Present: decreased breath sounds. Absent: rales, rhonchi, wheezes - Routine Cardiovascular Exam Absent: RRR - Routine Abdominal Exam Present: soft Comments: large - Routine Exam Groin: Present: swelling - Routine Extremities Exam Present: edema - Routine Skin Exam Present: dry, warm - Routine Neurological Exam Present: alert, oriented X3 - Routine Psychiatric Exam Present: cooperative <Beth Bolanos - Last Filed: 09/19/17 10:26> Vital signs: Vital Signs 09/19/17 17:41 09/19/17 20:00 09/19/17 21:00 Temperature 98.9 F 98.3 F Pulse Rate 89 91 H Respiratory Rate 20 17 Blood Pressure 139/73 132/74 Pulse Oximetry 96 98 97 09/19/17 21:26 09/19/17 21:27 09/19/17 23:10 Temperature Pulse Rate 90 Respiratory Rate 18 16 Blood Pressure Pulse Oximetry 99 09/19/17 23:14 09/19/17 23:55 09/20/17 01:00 Temperature 98.9 F Pulse Rate 98 H 98 H Respiratory Rate 16 18 Blood Pressure 126/73 Pulse Oximetry 96 95 09/20/17 03:15 09/20/17 04:00 09/20/17 05:00 Temperature 98.4 F Pulse Rate 98 H 85 Respiratory Rate 16 17 Blood Pressure 144/69 H Pulse Oximetry 97 97 09/20/17 08:00 09/20/17 08:51 09/20/17 12:00 Temperature 98 F Pulse Rate 88 84 Respiratory Rate 18 18 12 Blood Pressure 158/82 H Pulse Oximetry 96 94 L Intake & Output 09/19/17 09/20/17 09/20/17 18:59 06:59 18:59 Intake Total 410 / 410 1500 / 1500 Output Total 1300 / 1300 475 / 475 2099 / 2100 Balance -890 / -890 1025 / 1025 -2099 / -2099 Weight 180.4 kg Intake: IV 50 / 50 Flexbumin 25% Inj 50 ML @ 60 50 / 50 mls/hr IV.SIG Q12H [facility] Rx#: [id number] Oral 360 / 360 1500 / 1500 Output: Urine 1300 / 1300 475 / 475 600 / 600 Hemodialysis Amount 1500 / 1500 Other: Date of Last Bowel Movement 09/18/17 09/18/17 09/18/17 # Bowel Movements 1 <Dash Steele - Last Filed: 09/20/17 15:24> Assessment and Plan - Assessment (1) Acute kidney injury superimposed on chronic kidney disease Code(s): N17.9 - Acute kidney failure, unspecified; N18.9 - Chronic kidney disease, unspecified Status: Acute - Plan Patient has Nephrotic Proteinuria with Anasarca. Will need Renal Biopsy but now on ASA and Plavix, will need to delay the Kidney Biopsy for now. Creatinine at 2.01 On Bumex TID and Metolazone Continues to have anasarca. Will proceed with hemodialysis and vas cath placement for further fluid removal. Orders placed. <Beth Bolanos - Last Filed: 09/19/17 10:26> - Assessment (1) Acute kidney injury superimposed on chronic kidney disease Code(s): N17.9 - Acute kidney failure, unspecified; N18.9 - Chronic kidney disease, unspecified Status: Acute - Attending Attestation Patient seen and examined, agree with above. Will start HD, mainly for ultra filtration and fluid removal. <Dash Steele - Last Filed: 09/20/17 15:24>
[2017-09-19] MEDS ORDERED: Sod Chloride 0.9% Inj 1,000 ML OTHER PRN ×2 (10:40)
[2017-09-19] MEDS ORDERED: Sod Chloride 0.9% Inj 1,000 ML IV.CONT PRN (10:40)
[2017-09-19] MEDS ORDERED: Acetaminophen 325 MG Tablet PO PRN (10:40)
[2017-09-19] MEDS ORDERED: Heparin 10,000 UNITS/10 ML Vial (for IV use) OTHER PRN (10:40)
[2017-09-19] MEDS ORDERED: Gelatin 12 MM/7 MM Topical Foam TOPICAL PRN (10:40)
[2017-09-19] MEDS: Insulin NovoLOG Aspart Correctional Sugar Inj SQ SCH ×4 (10:54→22:10)
[2017-09-19] MEDS: Insulin Detemir Inj 1,000 UNIT/10 ML Vial SQ SCH ×2 (10:54→22:08)
[2017-09-19] MEDS: Glimepiride 4 MG Tablet PO SCH ×2 (10:54→17:51)
[2017-09-19] MEDS: Allopurinol 100 MG Tablet PO SCH (10:55)
[2017-09-19] MEDS: Albumin Human 25% Inj 50 ML IV.SIG SCH ×2 (12:10→21:59)
[2017-09-19] MEDS ORDERED: *Heparin 10,000 UNITS/10 ML Vial Periprocedural ONLY ONE (12:27)
--- NOTE | 2017-09-19 13:41 | IR ---
EXAM DATE: 09/19/2017 1:13 PM EDT AGE/SEX: 47 years / Male INDICATIONS: Patient with acute kidney injury superimposed on chronic kidney disease. CLINICAL DATA: This is the patient's initial encounter. Patient reports that signs and symptoms have been present for 3 days and indicates a pain score of 2/10. MEDICAL/SURGICAL HISTORY: Diabetes. Hypertension. Chronic obstructive pulmonary disease. CAD ,gout,depression . anal fissure, rt Achilles rupture COMPARISON: No prior exams available for comparison. FLUORO TIME (min): 0.28 IMAGE SERIES: 3 ACCESS SITE: Right internal jugular vein DEVICE(S): 14 Qatari double lumen 20 cm Schon catheter . . PROCEDURE : 1. Ultrasound guided venipuncture. 2. Fluoroscopic guidance. 3. Central line placement. The risks, benefits and alternatives to the procedure were explained and verbal and written consent w as obtained. The site was prepped in sterile fashion. Full sterile technique was used, including ca p, mask, sterile gloves and gown and a large sterile sheet. Hand hygiene and 2% chlorhexidine prep w as utilized per protocol for cutaneous antisepsis with appropriate dry time for site. Sterile gel an d sterile probe cover were utilized for ultrasound guidance. The skin and subcutaneous tissues were infiltrated with local anesthetic solution. A suitable site a misty the vein was selected with ultrasound and fluoroscopic guidance. A small incision was made. Th e vein was accessed under direct ultrasound visualization using the micropuncture technique. The allyson ropuncture set was exchanged for a 0.035 wire. The tract was dilated. The catheter was advanced int o position under direct fluoroscopic visualization, and was advanced with the tip at the junction of the superior vena cava and rt atrium. The catheter was fixed in place with suture and a sterile dres sing was applied. The patient tolerated the procedure well and there were no complications. CONCLUSION: 1. Uncomplicated line placement as above. Electronically signed by: Juarez Vasquez MD 09/19/2017 1:39 PM EDT
--- NOTE | 2017-09-19 16:01 | P.PNIM ---
Subjective Interval history: Pt c/o continued edema at abdomen, legs, and scrotum. Physical Exam Vital signs: 09/19/17 03:46 09/19/17 05:00 09/19/17 07:35 Temperature 98.7 F Pulse Rate 91 H 91 H Respiratory Rate 18 20 Blood Pressure 165/72 H Pulse Oximetry 98 99 09/19/17 11:10 Temperature Pulse Rate Respiratory Rate 14 Blood Pressure Pulse Oximetry Narrative: General: NAD, AAOx3 Cardiac: regular Chest: clear x b/l Abd: +BS, soft, distended, obese, nontender Ext: Anasarca flanks/lower ext/scrotum, right leg splinted Results - Labs CBC & Chem 7: 09/19/17 20:40 09/19/17 06:55 - Imaging Impressions Catheter Placement 09/19/17 00:00 CONCLUSION: 1. Uncomplicated line placement as above. - Procedures Right posterior Achilles incision and drainage 08/24/[address] Hull Assessment and Plan - Assessment (1) Rupture of right Achilles tendon Code(s): S86.011A - Strain of right Achilles tendon, initial encounter Status : Acute Plan: Open Achilles rupture, right - Recent admission with Achilles rupture - Pt underwent open repair of right Achilles tendon rupture with flexor hallucis longus tendon transfer and gastrocnemius recession, right lower extremity on 07/24/[address] Murillo. - Per podiatry, pt will need to be strict non-weight bearing for 6-8 weeks. - Pt was noted to have increased swelling and pain in the RLE on 08/04 - LE Doppler US (08/04) --> Is negative for DVT - Refused dc to snf and was noncompliant with weight bearing instructions. - Pt was readmitted with infection at operative site on 08/16 - He was seen by podiatry in clinic on 08/16 and sent to ED - MRI right ankle (08/16): 1. Postoperative change at the distal Achilles and calcaneus. Increased signal within the posterior calcaneus can all be consistent with postoperative change. It would be difficult to rule out osteomyelitis. 2. Fluid seen around the Achilles tendon. More superiorly in the mid lower leg, there is a larger fluid collection with peripheral enhancement. There is also a thinner fluid collection seen more superiorly in the proximal lower leg around the lateral aspect of the soleus muscle. These fluid collections could be postoperative seromas. An abscess could have a similar appearance. - vanco and Zosyn (08/17) - Rocephin (08/17 - present) - Rocephin stop date 10/07/17 - Comgmt with ID & Podiatry - Pt had a previous outpt culture taken on 08/11 which grew out Enterobacter cloacae - Right posterior Achilles incision and drainage 08/24/[address] Hull - Intraoperative wound Cx (08/24) --> Enterobacter cloacae - Plan to DC to SNF/rehab following hospitalization to ensure non-weight bearing of RLE and good recovery. Pt at risk for Right BKA. - The case was discussed with [facility]. Copay for SNF was defaulted. CM consulted. Pt agreeable for SNF but need to get accepting facility - Pt not ready for dc yet - Discussed dc abx with ID. orders written continue PT efforts. Volume overload Anasarca/edema Nephrotic range proteinuria - Pt was moved to ICU after Halicat and hypoxia on 08/31. Pt had received small dose of morphine a few hrs before the event. He was refusing bipap but now agreeable. Pt being followed by Dr Sawyer. - He continues with severe anasarca/lower ext edema and scrotal swelling. Also he has sleep apnea/hypoventilation and has hypoalbuminemia. - Procardia lowered to 30mg BID on 08/31, BP is stable. - Had right heart cath on last admission revealing increased right heart pressure. He has also some mild systolic dysfunction with EF 45% - comgmt with Nephrology - Pt continues to exhibit significant clinical volume overload and is NOT yet ready for discharge. - Medical team/Nephrology has been trying to diurese pt for several weeks. - Pt has been tried on IV lasix, IV bumex, and bumex gtt. Pt had good urine output, but did NOT make any significant clinical improvement. - nephrology recommending renal bx to evaluate for FSGS once patient stable. Unable to stop ASA/palvix at this time. - restrict fluids to 1.5 liters daily - IV bumex - Case d/w Nephrology, Dr. Steele (09/19/17). - VasCath (09/19/17) placed by IR for HD - left leg rolanda wrapping - pt will need snf or rehab placement once accepted Obesity hypoventilation syndrome Hypercapnic respiratory insufficiency Obesity hypoventilation syndrome COPD - 2-D echocardiogram 07/23/17: - The left ventricular systolic function is mildly reduced with an estimated ejection fraction in the range of 45- 50%. - Mild infero-posterior hypokinesis - Mild concentric left ventricular hypertrophy. - The left atrial size is moderately dilated. - RHC completed (07/28) --> Class 2 Pulm HTN, PCW 23 - No Right heart strain, so sildenafil was stopped - Pt is noncompliant with CPAP - Pt sedated overnight - decrease flexeril to 5mg q8h prn - decrease norco to q6h prn - encourage pt to wear CPAP at night. COPD (chronic obstructive pulmonary disease) - chronic does not appear to be in acute exacerbation - Pt requiring 3-4L of supplemental O2 - Diabetes - Cont OHA and SSI. basal levemir - continue titration up on levemir today. HTN (hypertension) - cont current BP meds, Cozaar 50mg q12H, Hydralazine 50mg TID, Coreg 25mg BID - May try to lower or stop Procardia. - Hydralazine PO PRN Anemia - Pts H/H has slowly been declining. No noted active GIB - During the last admission the pt was transfused with 2 units PRBCs (08/10) - During recent admission pt underwent evaluation with EGD/Colonoscopy (08/11/17 ) with Dr. Mccormick - int/ext hemorrhoids - sigmoid diverticulosis - esophagitis - gastric biopsies taken, results pending - Repeat labs on 08/21/17 with Hgb 8.3/Hct 24.6 -> 7.7/23.5 (08/24) -> 7.8/24.2, 7.6 (08/27), 8.5 (08/28), 7.7 (09/07), 7.9 (09/08) - Hg 7.9 (09/10) - Iron studies 08/08/17 Iron 26, TIBC 244, % saturation 10.7, ferritin 246 - ferritin 154 (08/27), retic 82 (08/27); b12 515, folate 7.9 (08/26) - case informally d/w Hematology - since ferritin > 100, unlikely d/t ANAHI - 2 units PRBCs (08/27/17) - observe CAD (coronary artery disease) Recent history of pulmonary embolism - Patient had a PE approximately 8 months ago and was on Coumadin for until the cardiac cauterization 06/17/17 - Patient with recent cardiac catheterization with PCI 06/17/17 - After catheterization patient's Coumadin was DC'd and he was started on Aspirin and Plavix - Continue patient's Aspirin 81 mg daily, Plavix 75 mg PO daily, Atorvastatin 40 mg PO QHS and Coreg BID Anxiety and depression - Cont. Paxil 20mg daily (1) Rupture of right Achilles tendon Qualifiers: Encounter type: subsequent encounter Qualified Code(s): S86.011D - Strain of right Achilles tendon, subsequent encounter
[2017-09-19] MEDS ORDERED: Thrombin Topical Soln 5,000 UNIT Vial TOPICAL ONE ×2 (16:09→16:11)
--- NOTE | 2017-09-19 19:02 | P.PNPL ---
Subjective Interval history: 47 YOWM with Achelis tendon repair,JUDY,COPD Has huge scrotal swelling Diureasing Feels swelling decreasing Had Vascath placed Physical Exam Vital signs: Vital Signs 09/18/17 21:50 09/19/17 00:06 09/19/17 01:00 Temperature Pulse Rate 92 H 96 H Respiratory Rate 18 14 Blood Pressure Pulse Oximetry 95 98 09/19/17 03:46 09/19/17 05:00 09/19/17 07:35 Temperature 98.7 F Pulse Rate 91 H 91 H Respiratory Rate 18 20 Blood Pressure 165/72 H Pulse Oximetry 98 99 09/19/17 09:00 09/19/17 11:10 09/19/17 17:41 Temperature 98.9 F Pulse Rate 89 Respiratory Rate 14 20 Blood Pressure 139/73 Pulse Oximetry 97 96 Intake & Output 09/19/17 09/19/17 09/20/17 06:59 18:59 06:59 Intake Total 950 / 950 410 / 410 Output Total 3500 / 3500 1300 / 1300 Balance -2550 / -2550 -890 / -890 Weight 180.4 kg Intake: IV 100 / 100 50 / 50 Flexbumin 25% Inj 50 ML @ 60 50 / 50 mls/hr IV.SIG Q12H CATIE Rx#: [id number] Rocephin Inj 2,000 MG In NS Inj 100 / 100 100 ML @ 200 mls/hr IV.SIG Q24H CATIE Rx#:[id number] Oral 850 / 850 360 / 360 Output: Urine 3500 / 3500 1300 / 1300 Other: Date of Last Bowel Movement 09/18/17 09/18/17 GENERAL: WBWN ,NAD SKIN: Warm and dry. HEAD: Normocephalic. EYES: No scleral icterus. No injection or drainage. NECK: Supple, trachea midline. No JVD or lymphadenopathy. CARDIOVASCULAR: Regular rate and rhythm without murmurs, gallops, or rubs. RESPIRATORY: Breath sounds equal bilaterally. No accessory muscle use. GASTROINTESTINAL: Abdomen soft, non-tender, nondistended. MUSCULOSKELETAL: No cyanosis, ++ edema. BACK: Nontender without obvious deformity. No CVA tenderness. Assessment and Plan - Plan IMPRESSION: 1. Hypercapnic respiratory insufficiency. 2. Chronic obstructive pulmonary disease. 3. Obstructive sleep apnea. 4. Achilles tendon repair and leg infection. 5. Diabetes mellitus. 5. Scrotal edema. PLAN: Aerosol nebs Supplement 02 Encourage to use CPAP at night SQ Lovenox Bumex 2 mg q 8 hrs monitor Lytes. HD in AM DW pt and his .
[2017-09-19] MEDS ORDERED: Gelatin 12 MM/7 MM Topical Foam TOPICAL ONE (20:18)
[2017-09-19] MEDS ORDERED: Morphine Inj 4 MG/ML Vial IV.PUSH ONE (20:20)
[2017-09-19] MEDS ORDERED: Lidocaine 2%/Epinephrine 1:100,000 30 ML MDV INFILTRATN ONE (20:21)
--- NOTE | 2017-09-19 20:22 | P.PCN ---
Date of procedure: 09/19/17 Procedure: I was called to patient's bedside due to bleeding at the Vascath site. Vascath placed by IR Dr. Vasquez earlier today at around 1:15 pm and then patient went to dialysis. He was on [facility] and the floor nurse noted bleeding at the site this evening and notified Dr. Mcgee. IR was contacted but physician was not currently in house and was being called in for another emergent case so nurse then contacted me for assistance. There is some oozing at the Vascath insertion site. It appears it was previously sutured, however sutures are dislodged and are sitting under the occlusive dressing. Discussed with patient plan for management and he is agreeable. Use sterile gown, hat, gloves, mask. Prepped skin site with multiple ChloraPrep and retracted kelly from the site. Instilled 3 mL's of 2% lidocaine with epinephrine until adequate anesthesia was obtained. Used a single 2-0 silk suture to close the skin around the Vas-Cath insertion site. Resutured the Vas-Cath in place. Adequate hemostasis was obtained. Antimicrobial disc and occlusive dressing was applied. Suture at the skin insertion site should be removed in 3-5 days when it has started to heal and bleeding is improved. I have discussed this with the patient.
[2017-09-19] MEDS ORDERED: Lidocaine 2%/Epinephrine 1;100,000 Inj 50 ML Vial INFILTRATN ONE (20:45)
[2017-09-19 21:54] LABS: Hematocrit 22.4 % (39.0-51.0); Hemoglobin 7.2 gm/dL (13.0-17.0); Mean Corpuscular HGB Conc 32.4 % (32.0-36.0); Mean Corpuscular Volume 80.2 fL (80.0-100.0); Mean Platelet Volume 7.3 fL (7.0-11.0); Platelet Count 277 th/mm3 (150-450); Red Blood Count 2.79 mil/mm3 (4.50-5.90); Red Cell Distribution Width 15.4 % (11.6-17.2); White Blood Count 5.8 th/mm3 (4.0-11.0)
[2017-09-19] MEDS: Enoxaparin Inj 40 MG/0.4 ML Syringe SQ SCH (22:07)
[2017-09-19 22:15] LABS: Activated Partial Thrombo Time 29.1 sec (24.3-30.1); INR 1.1 Ratio; Prothrombin Time 10.9 sec (9.8-11.6)
[2017-09-19 23:41] LABS: Hepatitis A IgM Antibody Nonreactive (Nonreactive); Hepatitits B Surface Antigen Nonreactive (Nonreactive)
[2017-09-20] MEDS: LORazepam 0.5 MG Tablet PO PRN ×4 (00:52→22:12)
[2017-09-20] MEDS: oxyCODONE/Acetaminophen 10/325 Tablet PO PRN ×5 (03:31→22:13)
[2017-09-20] MEDS: Sodium Chloride 0.65% Nasal Spray 45 ML Bottle EACH NARE SCH ×5 (03:45→22:16)
[2017-09-20] MEDS: Glimepiride 4 MG Tablet PO SCH ×2 (07:08→18:13)
[2017-09-20] MEDS: Gabapentin 300 MG Capsule PO SCH ×3 (07:08→22:11)
--- NOTE | 2017-09-20 09:14 | P.PNNP ---
Subjective Interval history: Hemodialysis started yesterday, tolerated well. Vas cath site with increased bleeding, resutured. <Beth Bolanos - Last Filed: 09/20/17 09:07> Physical Exam Vital signs: Vital Signs 09/19/17 11:10 09/19/17 17:41 09/19/17 20:00 Temperature 98.9 F 98.3 F Pulse Rate 89 91 H Respiratory Rate 14 20 17 Blood Pressure 139/73 132/74 Pulse Oximetry 96 98 09/19/17 21:00 09/19/17 21:26 09/19/17 21:27 Temperature Pulse Rate 90 Respiratory Rate 18 Blood Pressure Pulse Oximetry 97 99 09/19/17 23:10 09/19/17 23:14 09/19/17 23:55 Temperature 98.9 F Pulse Rate 98 H 98 H Respiratory Rate 16 16 18 Blood Pressure 126/73 Pulse Oximetry 96 09/20/17 01:00 09/20/17 03:15 09/20/17 04:00 Temperature 98.4 F Pulse Rate 98 H 85 Respiratory Rate 16 17 Blood Pressure 144/69 H Pulse Oximetry 95 97 09/20/17 05:00 09/20/17 08:00 09/20/17 08:51 Temperature Pulse Rate 84 Respiratory Rate 12 18 Blood Pressure Pulse Oximetry 97 99 94 L Intake & Output 09/19/17 09/20/17 09/20/17 18:59 06:59 18:59 Intake Total 410 / 410 1500 / 1500 Output Total 1300 / 1300 475 / 475 Balance -890 / -890 1025 / 1025 Weight 180.4 kg Intake: IV 50 / 50 Flexbumin 25% Inj 50 ML @ 60 50 / 50 mls/hr IV.SIG Q12H CATIE Rx#: [id number] Oral 360 / 360 1500 / 1500 Output: Urine 1300 / 1300 475 / 475 Other: Date of Last Bowel Movement 09/18/17 09/18/17 # Bowel Movements 1 - Constitutional no acute distress, morbidly obese - Routine HEENT Exam Head: Present: normocephalic ENT: Present: mucous membranes moist - Routine Neck Exam Present: supple. Absent: JVD - Routine Respiratory Exam Present: decreased breath sounds. Absent: rales, rhonchi - Routine Cardiovascular Exam Present: RRR - Routine Abdominal Exam Present: soft, normoactive bowel sounds - Routine Exam Scrotal: Present: swelling - Routine Extremities Exam Present: edema, vascular access Comments: Right IJ vas cath - Routine Skin Exam Present: dry, warm - Routine Neurological Exam Present: alert, oriented X3 - Routine Psychiatric Exam Present: cooperative <Beth Bolanos - Last Filed: 09/20/17 09:07> Vital signs: Vital Signs 09/19/17 20:00 09/19/17 21:00 09/19/17 21:26 Temperature 98.3 F Pulse Rate 91 H 90 Respiratory Rate 17 18 Blood Pressure 132/74 Pulse Oximetry 98 97 09/19/17 21:27 09/19/17 23:10 09/19/17 23:14 Temperature Pulse Rate 98 H Respiratory Rate 16 16 Blood Pressure Pulse Oximetry 99 09/19/17 23:55 09/20/17 01:00 09/20/17 03:15 Temperature 98.9 F Pulse Rate 98 H 98 H Respiratory Rate 18 16 Blood Pressure 126/73 Pulse Oximetry 96 95 09/20/17 04:00 09/20/17 05:00 09/20/17 08:00 Temperature 98.4 F 98 F Pulse Rate 85 88 Respiratory Rate 17 18 Blood Pressure 144/69 H 158/82 H Pulse Oximetry 97 97 96 09/20/17 08:51 09/20/17 12:00 09/20/17 16:00 Temperature Pulse Rate 84 Respiratory Rate 18 12 14 Blood Pressure 133/86 Pulse Oximetry 94 L 09/20/17 16:36 09/20/17 16:37 Temperature Pulse Rate 84 Respiratory Rate 18 Blood Pressure Pulse Oximetry 94 L Intake & Output 09/19/17 09/20/17 09/20/17 18:59 06:59 18:59 Intake Total 410 / 410 1500 / 1500 Output Total 1300 / 1300 475 / 475 2100 / 2100 Balance -890 / -890 1025 / 1025 -2099 / -2099 Weight 180.4 kg Intake: IV 50 / 50 Flexbumin 25% Inj 50 ML @ 60 50 / 50 mls/hr IV.SIG Q12H CATIE Rx#: [id number] Oral 360 / 360 1500 / 1500 Output: Urine 1300 / 1300 475 / 475 600 / 600 Hemodialysis Amount 1500 / 1500 Other: Date of Last Bowel Movement 09/18/17 09/18/17 09/18/17 # Bowel Movements 1 <Dash Steele - Last Filed: 09/20/17 17:59> Assessment and Plan - Assessment (1) Acute kidney injury superimposed on chronic kidney disease Code(s): N17.9 - Acute kidney failure, unspecified; N18.9 - Chronic kidney disease, unspecified Status: Acute - Plan Patient has Nephrotic Proteinuria with Anasarca. Will need Renal Biopsy but now on ASA and Plavix, will need to delay the Kidney Biopsy for now. Hemodialysis started on 09/19 Will continue Bumex TID and Metolazone Continues to have anasarca. Avoid nephrotoxins Hemodialysis yesterday with removal of 2 liters of fluids Will repeat hemodialysis today and remove fluid as tolerated labs in AM <Beth Bolanos - Last Filed: 09/20/17 09:07> - Assessment (1) Acute kidney injury superimposed on chronic kidney disease Code(s): N17.9 - Acute kidney failure, unspecified; N18.9 - Chronic kidney disease, unspecified Status: Acute - Attending Attestation Patient seen and examined, agree with above. Not able to remove more fluid due to low BP and cramping. HD/UF again tomorrow. Transfuse PRBC as Hgb. is low. <Dash Steele - Last Filed: 09/20/17 17:59>
[2017-09-20] MEDS: Insulin NovoLOG Aspart Correctional Sugar Inj SQ SCH ×4 (09:49→22:43)
[2017-09-20] MEDS: Carvedilol 12.5 MG Tablet PO SCH ×2 (09:50→22:15)
[2017-09-20] MEDS: hydrALAZINE 25 MG Tablet PO SCH ×3 (09:50→18:09)
[2017-09-20] MEDS: Insulin Detemir Inj 1,000 UNIT/10 ML Vial SQ SCH ×2 (09:51→22:43)
[2017-09-20] MEDS: Nystatin Liq 500,000 UNIT/5 ML UDC SWISH-SWAL SCH ×4 (09:51→22:07)
[2017-09-20] MEDS: Heparin Central Flush 100 UNIT/ML 5 ML Vial IV.FLUSH SCH (09:51)
[2017-09-20] MEDS: Senna/Docusate Sodium 8.6/50 MG Tablet PO SCH ×2 (09:52→22:13)
[2017-09-20] MEDS: Allopurinol 100 MG Tablet PO SCH (09:53)
[2017-09-20] MEDS: Albumin Human 25% Inj 50 ML IV.SIG SCH (12:36)
--- NOTE | 2017-09-20 12:55 | P.PNIM ---
Subjective Interval history: Pt had bleeding at VasCat site yesterday evening/night. Pt seen by [facility], Dr. Montenegro, and VasCath was sutured with hemostasis. Pt denies current bleeding from VasCath. Pt has NO new complaints at this time. Pt denies chest pain, SOB, or palpitations. Pt's Hg is 7.2 (09/20/17) Physical Exam Vital signs: 09/20/17 08:00 09/20/17 08:51 Temperature 98 F Pulse Rate 94 H 84 Respiratory Rate 18 18 Blood Pressure 158/82 H Pulse Oximetry 96 94 L Narrative: General: NAD, AAOx3 Cardiac: regular Chest: clear x b/l Abd: +BS, soft, distended, obese, nontender Ext: Anasarca flanks/lower ext/scrotum, right leg splinted Results - Labs CBC & Chem 7: 09/19/17 20:40 09/19/17 06:55 - Imaging Impressions Needle Aspiration US 08/22/17 00:00 CONCLUSION: Very minimal serosanguineous fluid approximating 0.5 cc. Foot X-Ray 08/25/17 07:11 CONCLUSION: 1. No acute fracture or dislocation. 2. Soft tissue swelling about the hind and midfoot. Chest X-Ray 08/27/17 16:44 CONCLUSION: Cardiomegaly with basilar airspace disease most characteristic of mild pulmonary edema. Scrotum Ultrasound 08/31/17 00:00 CONCLUSION: 1. Significant scrotal edema. 2. Trace hydrocele 3. Testicles appear normal. Chest X-Ray 08/31/17 14:02 CONCLUSION: Resolving congestive heart failure Abdomen/Bladder Ultrasound 09/03/17 00:00 CONCLUSION: Limited exam of the kidneys. The visualized secondary to the patient's body habitus. Chest X-Ray 09/06/17 07:00 CONCLUSION: Mild congestive heart failure. Knee X-Ray 09/10/17 00:00 CONCLUSION: Unremarkable exam. Chest X-Ray 09/12/17 00:00 CONCLUSION: Improving interstitial edema. No confluent infiltrate Catheter Placement 09/19/17 00:00 CONCLUSION: 1. Uncomplicated line placement as above. - Procedures Right posterior Achilles incision and drainage 08/24/[address] Della Dhillon placement by Dr. Vasquez 09/19/17 Assessment and Plan - Assessment (1) Rupture of right Achilles tendon Code(s): S86.011A - Strain of right Achilles tendon, initial encounter Status : Acute Plan: Open Achilles rupture, right - Recent admission with Achilles rupture - Pt underwent open repair of right Achilles tendon rupture with flexor hallucis longus tendon transfer and gastrocnemius recession, right lower extremity on 07/24/[address] Murillo. - Per podiatry, pt will need to be strict non-weight bearing for 6-8 weeks. - Pt was noted to have increased swelling and pain in the RLE on 08/04 - LE Doppler US (08/04) --> Is negative for DVT - Refused dc to snf and was noncompliant with weight bearing instructions. - Pt was readmitted with infection at operative site on 08/16 - He was seen by podiatry in clinic on 08/16 and sent to ED - MRI right ankle (08/16): 1. Postoperative change at the distal Achilles and calcaneus. Increased signal within the posterior calcaneus can all be consistent with postoperative change. It would be difficult to rule out osteomyelitis. 2. Fluid seen around the Achilles tendon. More superiorly in the mid lower leg, there is a larger fluid collection with peripheral enhancement. There is also a thinner fluid collection seen more superiorly in the proximal lower leg around the lateral aspect of the soleus muscle. These fluid collections could be postoperative seromas. An abscess could have a similar appearance. - vanco and Zosyn (08/17) - Rocephin (08/17 - present) - Rocephin stop date 10/07/17 - Comgmt with ID & Podiatry - Pt had a previous outpt culture taken on 08/11 which grew out Enterobacter cloacae - Right posterior Achilles incision and drainage 08/24/[address] Hull - Intraoperative wound Cx (08/24) --> Enterobacter cloacae - Plan to DC to SNF/rehab following hospitalization to ensure non-weight bearing of RLE and good recovery. Pt at risk for Right BKA. - The case was discussed with [facility]. Copay for SNF was defaulted. CM consulted. Pt agreeable for SNF but need to get accepting facility - Pt not ready for dc yet - Discussed dc abx with ID. orders written continue PT efforts. Volume overload Anasarca/edema Nephrotic range proteinuria - Pt was moved to ICU after Halicat and hypoxia on 08/31. Pt had received small dose of morphine a few hrs before the event. He was refusing bipap but now agreeable. Pt being followed by Dr Sawyer. - He continues with severe anasarca/lower ext edema and scrotal swelling. Also he has sleep apnea/hypoventilation and has hypoalbuminemia. - Procardia lowered to 30mg BID on 08/31, BP is stable. - Had right heart cath on last admission revealing increased right heart pressure. He has also some mild systolic dysfunction with EF 45% - comgmt with Nephrology - Pt continues to exhibit significant clinical volume overload and is NOT yet ready for discharge. - Medical team/Nephrology has been trying to diurese pt for several weeks. - Pt has been tried on IV lasix, IV bumex, and bumex gtt. Pt had good urine output, but did NOT make any significant clinical improvement. - nephrology recommending renal bx to evaluate for FSGS once patient stable. Unable to stop ASA/palvix at this time. - restrict fluids to 1.5 liters daily - IV bumex - Case d/w Nephrology, Dr. Steele (09/19/17). - VasCath (09/19/17) - Pt had first HD 09/19 with removal of 2 Liters - repeat HD 09/20/17 with removal of 1.5 liters, d/t pt c/o leg crampine - Case d/w Nephrology 09/20/17. - Will repeat HD 09/21/17 - left leg rolanda wrapping - pt will need snf or rehab placement once accepted Obesity hypoventilation syndrome Hypercapnic respiratory insufficiency Obesity hypoventilation syndrome COPD - 2-D echocardiogram 07/23/17: - The left ventricular systolic function is mildly reduced with an estimated ejection fraction in the range of 45- 50%. - Mild infero-posterior hypokinesis - Mild concentric left ventricular hypertrophy. - The left atrial size is moderately dilated. - RHC completed (07/28) --> Class 2 Pulm HTN, PCW 23 - No Right heart strain, so sildenafil was stopped - Pt is noncompliant with CPAP - Pt sedated overnight - decrease flexeril to 5mg q8h prn - decrease norco to q6h prn - encourage pt to wear CPAP at night. COPD (chronic obstructive pulmonary disease) - chronic does not appear to be in acute exacerbation - Pt requiring 3-4L of supplemental O2 - Diabetes - Cont OHA and SSI. basal levemir - continue titration up on levemir today. HTN (hypertension) - cont current BP meds, Cozaar 50mg q12H, Hydralazine 50mg TID, Coreg 25mg BID - May try to lower or stop Procardia. - Hydralazine PO PRN Anemia - Pts H/H has slowly been declining. No noted active GIB - During the last admission the pt was transfused with 2 units PRBCs (08/10) - During recent admission pt underwent evaluation with EGD/Colonoscopy (08/11/17 ) with Dr. Mccormick - int/ext hemorrhoids - sigmoid diverticulosis - esophagitis - gastric biopsies taken, results pending - Repeat labs on 08/21/17 with Hgb 8.3/Hct 24.6 -> 7.7/23.5 (08/24) -> 7.8/24.2, 7.6 (08/27), 8.5 (08/28), 7.7 (09/07), 7.9 (09/08) - Hg 7.9 (09/10) - Iron studies 08/08/17 Iron 26, TIBC 244, % saturation 10.7, ferritin 246 - ferritin 154 (08/27), retic 82 (08/27); b12 515, folate 7.9 (08/26) - case informally d/w Hematology - since ferritin > 100, unlikely d/t ANAHI - 2 units PRBCs (08/27/17) - Hg 7.2 (09/20/17) - transfuse 2 units PRBCs CAD (coronary artery disease) Recent history of pulmonary embolism - Patient had a PE approximately 8 months ago and was on Coumadin for until the cardiac cauterization 06/17/17 - Patient with recent cardiac catheterization with PCI 06/17/17 - After catheterization patient's Coumadin was DC'd and he was started on Aspirin and Plavix - Continue patient's Aspirin 81 mg daily, Plavix 75 mg PO daily, Atorvastatin 40 mg PO QHS and Coreg BID Anxiety and depression - Cont. Paxil 20mg daily (1) Rupture of right Achilles tendon Qualifiers: Encounter type: subsequent encounter Qualified Code(s): S86.011D - Strain of right Achilles tendon, subsequent encounter
[2017-09-20] MEDS ORDERED: Sodium Chlor 0.9% Inj 250 ML IV.SIG SCH (13:00)
--- NOTE | 2017-09-20 18:57 | P.PNPL ---
Subjective Interval history: 47 YOWM with Achelis tendon repair,JUDY,COPD Has huge scrotal swelling Diureasing Feels swelling decreasing Had Vascath placed Had HD today Physical Exam Vital signs: Vital Signs 09/19/17 20:00 09/19/17 21:00 09/19/17 21:26 Temperature 98.3 F Pulse Rate 91 H 90 Respiratory Rate 17 18 Blood Pressure 132/74 Pulse Oximetry 98 97 09/19/17 21:27 09/19/17 23:10 09/19/17 23:14 Temperature Pulse Rate 98 H Respiratory Rate 16 16 Blood Pressure Pulse Oximetry 99 09/19/17 23:55 09/20/17 01:00 09/20/17 03:15 Temperature 98.9 F Pulse Rate 98 H 98 H Respiratory Rate 18 16 Blood Pressure 126/73 Pulse Oximetry 96 95 09/20/17 04:00 09/20/17 05:00 09/20/17 08:00 Temperature 98.4 F 98 F Pulse Rate 85 88 Respiratory Rate 17 18 Blood Pressure 144/69 H 158/82 H Pulse Oximetry 97 97 96 09/20/17 08:51 09/20/17 12:00 09/20/17 16:00 Temperature Pulse Rate 84 Respiratory Rate 18 12 14 Blood Pressure 133/86 Pulse Oximetry 94 L 09/20/17 16:36 09/20/17 16:37 Temperature Pulse Rate 84 Respiratory Rate 18 Blood Pressure Pulse Oximetry 94 L Intake & Output 09/19/17 09/20/17 09/20/17 18:59 06:59 18:59 Intake Total 410 / 410 1500 / 1500 Output Total 1300 / 1300 475 / 475 2099 / 2100 Balance -890 / -890 1025 / 1025 -2099 / -2099 Weight 180.4 kg Intake: IV 50 / 50 Flexbumin 25% Inj 50 ML @ 60 50 / 50 mls/hr IV.SIG Q12H CATIE Rx#: [id number] Oral 360 / 360 1500 / 1500 Output: Urine 1300 / 1300 475 / 475 600 / 600 Hemodialysis Amount 1500 / 1500 Other: Date of Last Bowel Movement 09/18/17 09/18/17 09/18/17 # Bowel Movements 1 GENERAL: WBWN, NAD SKIN: Warm and dry. HEAD: Normocephalic. EYES: No scleral icterus. No injection or drainage. NECK: Supple, trachea midline. No JVD or lymphadenopathy. CARDIOVASCULAR: Regular rate and rhythm without murmurs, gallops, or rubs. RESPIRATORY: Breath sounds equal bilaterally. No accessory muscle use. GASTROINTESTINAL: Abdomen soft, non-tender, nondistended. MUSCULOSKELETAL: No cyanosis, or edema. BACK: Nontender without obvious deformity. No CVA tenderness. Assessment and Plan - Plan IMPRESSION: 1. Hypercapnic respiratory insufficiency. 2. Chronic obstructive pulmonary disease. 3. Obstructive sleep apnea. 4. Achilles tendon repair and leg infection. 5. Diabetes mellitus. 5. Scrotal edema. PLAN: Aerosol nebs Supplement 02 Encourage to use CPAP at night SQ Lovenox Bumex 2 mg q 8 hrs monitor Lytes. DW pt and his .
[2017-09-21] MEDS: oxyCODONE/Acetaminophen 10/325 Tablet PO PRN ×5 (02:11→20:17)
[2017-09-21] MEDS: LORazepam 0.5 MG Tablet PO PRN ×4 (04:21→23:07)
[2017-09-21] MEDS: Albumin Human 25% Inj 50 ML IV.SIG SCH ×3 (05:00→23:10)
[2017-09-21] MEDS: Enoxaparin Inj 40 MG/0.4 ML Syringe SQ SCH ×2 (05:01→23:08)
[2017-09-21] MEDS: Sodium Chloride 0.65% Nasal Spray 45 ML Bottle EACH NARE SCH ×4 (05:02→21:04)
[2017-09-21] MEDS: Gabapentin 300 MG Capsule PO SCH ×3 (06:18→21:01)
[2017-09-21 07:18] LABS: Baso # (Auto) 0.1 th/mm3 (0.0-0.2); Baso % (Auto) 1.2 % (0.0-2.0); Eos # (Auto) 0.4 th/mm3 (0.0-0.4); Eos % (Auto) 5.9 % (0.0-4.0); Hematocrit 27.2 % (39.0-51.0); Hemoglobin 9.1 gm/dL (13.0-17.0); Lymph # (Auto) 1.2 th/mm3 (1.0-4.8); Mean Corpuscular HGB Conc 33.5 % (32.0-36.0); Mean Corpuscular Hemoglobin 27.2 pg (27.0-34.0); Mono % (Auto) 14.6 % (0.0-8.0); Neut # (Auto) 4.2 th/mm3 (1.8-7.7); Neut % (Auto) 61.3 % (16.0-70.0); Platelet Count 318 th/mm3 (150-450); Red Blood Count 3.36 mil/mm3 (4.50-5.90); Red Cell Distribution Width 15.3 % (11.6-17.2); White Blood Count 6.9 th/mm3 (4.0-11.0)
[2017-09-21 08:22] LABS: Albumin 3.1 g/dL (3.4-5.0); Calcium 9.1 mg/dL (8.5-10.1); Carbon Dioxide 34.6 meq/L (21.0-32.0); Magnesium 1.8 mg/dL (1.5-2.5); Phosphorus 4.2 mg/dL (2.5-4.9); Potassium 4.2 meq/L (3.5-5.1)
[2017-09-21] MEDS: Senna/Docusate Sodium 8.6/50 MG Tablet PO SCH ×2 (09:50→21:01)
[2017-09-21] MEDS: Allopurinol 100 MG Tablet PO SCH (09:56)
[2017-09-21] MEDS: Albumin Human 25% Inj 100 ML IV.SIG PRN ×2 (10:35→12:41)
[2017-09-21] MEDS: Heparin 10,000 UNITS/10 ML Vial (for IV use) OTHER PRN (12:28)
--- NOTE | 2017-09-21 13:35 | P.PNNP ---
Subjective Interval history: On the way to hemodialysis, denies any shortness of breath, continues to dependent edema. <Beth Bolanos - Last Filed: 09/21/17 14:34> Physical Exam Vital signs: Vital Signs 09/20/17 16:00 09/20/17 16:36 09/20/17 16:37 Temperature 99.4 F Pulse Rate 84 84 Respiratory Rate 14 18 Blood Pressure 135/77 Pulse Oximetry 94 L 09/20/17 20:00 09/20/17 20:06 09/20/17 21:40 Temperature 97.8 F 97.8 F Pulse Rate 88 88 88 Respiratory Rate 20 16 20 Blood Pressure 137/68 137/68 Pulse Oximetry 97 96 09/20/17 21:55 09/20/17 23:25 09/20/17 23:56 Temperature 98.5 F Pulse Rate 86 91 H Respiratory Rate 20 18 17 Blood Pressure 151/77 H Pulse Oximetry 97 09/21/17 00:00 09/21/17 01:28 09/21/17 01:45 Temperature 99.4 F 97.7 F 98.1 F Pulse Rate 91 H 91 H 87 Respiratory Rate 18 20 18 Blood Pressure 158/83 H 139/76 124/64 Pulse Oximetry 97 97 97 09/21/17 04:00 09/21/17 04:17 09/21/17 06:50 Temperature 97.4 F L Pulse Rate 82 82 Respiratory Rate 18 17 18 Blood Pressure 133/76 Pulse Oximetry 100 09/21/17 08:00 09/21/17 09:50 Temperature Pulse Rate 86 Respiratory Rate 14 16 Blood Pressure Pulse Oximetry 98 94 L Intake & Output 09/20/17 09/21/17 09/21/17 18:59 06:59 18:59 Intake Total 1800 / 1800 100 / 100 Output Total 2650 / 2650 1325 / 1325 Balance -2650 / -2650 475 / 475 100 / 100 Weight 173.6 kg Intake: IV 100 / 100 100 / 100 Flexbumin 25% Inj 100 ML @ 60 100 / 100 mls/hr IV.SIG WITH DIALYSIS PRN Rx#:[id number] Rocephin Inj 2,000 MG In NS Inj 100 / 100 100 ML @ 200 mls/hr IV.SIG Q24H CATIE Rx#:[id number] Oral 900 / 900 Intake (Blood Product) Amt 800 / 800 Rbc As-3 Leukoreduced Unit 400 / 400 [id number] Rbc As-3 Leukoreduced Unit 400 / 400 [id number] Output: Urine 1150 / 1150 1325 / 1325 Hemodialysis Amount 1500 / 1500 Other: Date of Last Bowel Movement 09/18/17 09/20/17 09/18/17 - Constitutional no acute distress - Routine HEENT Exam Head: Present: normocephalic - Routine Neck Exam Present: supple. Absent: JVD - Routine Respiratory Exam Present: distant breath sounds. Absent: rales, rhonchi, wheezes - Routine Cardiovascular Exam Present: RRR - Routine Abdominal Exam Present: soft, normoactive bowel sounds. Absent: tenderness Comments: large - Routine Extremities Exam Present: edema, vascular access Comments: Right IJ - Routine Skin Exam Present: dry, warm, wounds - Routine Neurological Exam Present: alert, oriented X3 - Routine Psychiatric Exam Present: cooperative <Beth Bolanos - Last Filed: 09/21/17 14:34> Vital signs: Vital Signs 09/20/17 20:00 09/20/17 20:06 09/20/17 21:40 Temperature 97.8 F 97.8 F Pulse Rate 88 88 88 Respiratory Rate 20 16 20 Blood Pressure 137/68 137/68 Pulse Oximetry 97 96 09/20/17 21:55 09/20/17 23:25 09/20/17 23:56 Temperature 98.5 F Pulse Rate 86 91 H Respiratory Rate 20 18 17 Blood Pressure 151/77 H Pulse Oximetry 97 09/21/17 00:00 09/21/17 01:28 09/21/17 01:45 Temperature 99.4 F 97.7 F 98.1 F Pulse Rate 91 H 91 H 87 Respiratory Rate 18 20 18 Blood Pressure 158/83 H 139/76 124/64 Pulse Oximetry 97 97 97 09/21/17 04:00 09/21/17 04:17 09/21/17 06:50 Temperature 97.4 F L Pulse Rate 82 82 Respiratory Rate 18 17 18 Blood Pressure 133/76 Pulse Oximetry 100 09/21/17 08:00 09/21/17 09:50 09/21/17 12:00 Temperature 98.4 F Pulse Rate 86 96 H Respiratory Rate 14 16 18 Blood Pressure 139/81 Pulse Oximetry 98 94 L Intake & Output 09/20/17 09/21/17 09/21/17 18:59 06:59 18:59 Intake Total 1800 / 1800 100 / 100 Output Total 2650 / 2650 1325 / 1325 6000 / 6000 Balance -2650 / -2650 475 / 475 -5900 / -5900 Weight 173.6 kg Intake: IV 100 / 100 100 / 100 Flexbumin 25% Inj 100 ML @ 60 100 / 100 mls/hr IV.SIG WITH DIALYSIS PRN Rx#:[id number] Rocephin Inj 2,000 MG In NS Inj 100 / 100 100 ML @ 200 mls/hr IV.SIG Q24H CATIE Rx#:[id number] Oral 900 / 900 Intake (Blood Product) Amt 800 / 800 Rbc As-3 Leukoreduced Unit 400 / 400 [id number] Rbc As-3 Leukoreduced Unit 400 / 400 [id number] Output: Urine 1150 / 1150 1325 / 1325 Hemodialysis Amount 1500 / 1500 6000 / 6000 Other: Date of Last Bowel Movement 09/18/17 09/20/17 09/18/17 <Dash Steele - Last Filed: 09/21/17 18:03> Assessment and Plan - Assessment (1) Acute kidney injury superimposed on chronic kidney disease Code(s): N17.9 - Acute kidney failure, unspecified; N18.9 - Chronic kidney disease, unspecified Status: Acute - Plan Patient has Nephrotic Proteinuria with Anasarca. Will need Renal Biopsy but now on ASA and Plavix, will need to delay the Kidney Biopsy for now. Hemodialysis started on 09/19 Will continue Bumex TID and Metolazone Continues to have anasarca. Avoid nephrotoxins Hemodialysis yesterday with removal of 1.5 liters of fluids and had to be shortened due to cramping Hemodialysis repeated today with removal of 6 liters Next hemodialysis scheduled for Tuesday. <Beth Bolanos - Last Filed: 09/21/17 14:34> - Assessment (1) Acute kidney injury superimposed on chronic kidney disease Code(s): N17.9 - Acute kidney failure, unspecified; N18.9 - Chronic kidney disease, unspecified Status: Acute - Plan Patient seen and examined, agree with above. HD and UF done, 6 liters removed.' Post Transfusion, HD/UF again on Tuesday. <Dash Steele - Last Filed: 09/21/17 18:03>
[2017-09-21] MEDS: hydrALAZINE 25 MG Tablet PO SCH ×3 (14:07→19:34)
[2017-09-21] MEDS: Glimepiride 4 MG Tablet PO SCH ×2 (14:07→19:33)
[2017-09-21] MEDS: Insulin NovoLOG Aspart Correctional Sugar Inj SQ SCH ×4 (14:07→20:56)
[2017-09-21] MEDS: Carvedilol 12.5 MG Tablet PO SCH ×2 (14:08→21:01)
[2017-09-21] MEDS: Nystatin Liq 500,000 UNIT/5 ML UDC SWISH-SWAL SCH ×4 (14:09→21:05)
[2017-09-21] MEDS: Insulin Detemir Inj 1,000 UNIT/10 ML Vial SQ SCH ×2 (14:09→20:56)
[2017-09-21] MEDS: Heparin Central Flush 100 UNIT/ML 5 ML Vial IV.FLUSH SCH (14:09)
--- NOTE | 2017-09-21 17:04 | P.PNIM ---
Subjective Interval history: Follow up: Rupture of right Achilles tendon, Open right Achilles rupture, Volume overload, Anasarca/edema, Nephrotic range proteinuria, Obesity hypoventilation syndrome, Hypercapnic respiratory insufficiency, Obesity hypoventilation syndrome, COPD, Diabetes, HTN (hypertension), Anemia, CAD (coronary artery disease), Recent history of pulmonary embolism, Anxiety and depression Patient continues to had BLE and scrotal edema Patient had HD today with 6.5L removed Physical Exam Vital signs: Vital Signs 09/20/17 20:00 09/20/17 20:06 09/20/17 21:40 Temperature 97.8 F 97.8 F Pulse Rate 88 88 88 Respiratory Rate 20 16 20 Blood Pressure 137/68 137/68 Pulse Oximetry 97 96 09/20/17 21:55 09/20/17 23:25 09/20/17 23:56 Temperature 98.5 F Pulse Rate 86 91 H Respiratory Rate 20 18 17 Blood Pressure 151/77 H Pulse Oximetry 97 09/21/17 00:00 09/21/17 01:28 09/21/17 01:45 Temperature 99.4 F 97.7 F 98.1 F Pulse Rate 91 H 91 H 87 Respiratory Rate 18 20 18 Blood Pressure 158/83 H 139/76 124/64 Pulse Oximetry 97 97 97 09/21/17 04:00 09/21/17 04:17 09/21/17 06:50 Temperature 97.4 F L Pulse Rate 82 82 Respiratory Rate 18 17 18 Blood Pressure 133/76 Pulse Oximetry 100 09/21/17 08:00 09/21/17 09:50 09/21/17 12:00 Temperature 98.4 F Pulse Rate 86 96 H Respiratory Rate 14 16 18 Blood Pressure 139/81 Pulse Oximetry 98 94 L Intake & Output 09/20/17 09/21/17 09/21/17 18:59 06:59 18:59 Intake Total 1800 / 1800 100 / 100 Output Total 2650 / 2650 1325 / 1325 6000 / 6000 Balance -2650 / -2650 475 / 475 -5900 / -5900 Weight 173.6 kg Intake: IV 100 / 100 100 / 100 Flexbumin 25% Inj 100 ML @ 60 100 / 100 mls/hr IV.SIG WITH DIALYSIS PRN Rx#:[id number] Rocephin Inj 2,000 MG In NS Inj 100 / 100 100 ML @ 200 mls/hr IV.SIG Q24H [facility] Rx#:[id number] Oral 900 / 900 Intake (Blood Product) Amt 800 / 800 Rbc As-3 Leukoreduced Unit 400 / 400 [id number] Rbc As-3 Leukoreduced Unit 400 / 400 [id number] Output: Urine 1150 / 1150 1325 / 1325 Hemodialysis Amount 1500 / 1500 6000 / 6000 Other: Date of Last Bowel Movement 09/18/17 09/20/17 09/18/17 Narrative: General: NAD, AAOx3 Cardiac: regular Chest: clear x b/l Abd: +BS, soft, distended, obese, nontender Ext: Anasarca flanks/lower ext/scrotum, right leg splinted Results - Labs CBC & Chem 7: 09/22/17 14:30 09/21/17 07:00 Laboratory Results - last 24 hr 09/20/17 09/20/17 09/20/17 14:42 18:30 21:40 WBC RBC Hgb Hct MCV MCH MCHC RDW Plt Count MPV Neut % (Auto) Lymph % (Auto) Terrell % (Auto) Eos % (Auto) Baso % (Auto) Neut # (Auto) Lymph # (Auto) Terrell # (Auto) Eos # (Auto) Baso # (Auto) WBC Differential Differential Comment Sodium Potassium Chloride Carbon Dioxide Anion Gap BUN Creatinine Estimated GFR POC Glucose 234 H 200 H Random Glucose Calcium Phosphorus Magnesium Albumin Blood Type A Positive Antibody Screen Negative MTS Gel Crossmatch See Detail Bld Prod Order Comment 09/21/17 09/21/17 09/21/17 06:30 07:00 09:02 WBC 6.9 RBC 3.36 L Hgb 9.1 L Hct 27.2 L MCV 81.0 MCH 27.2 MCHC 33.5 RDW 15.3 Plt Count 318 MPV 7.0 Neut % (Auto) 61.3 Lymph % (Auto) 17.0 Terrell % (Auto) 14.6 H Eos % (Auto) 5.9 H Baso % (Auto) 1.2 Neut # (Auto) 4.2 Lymph # (Auto) 1.2 Terrell # (Auto) 1.0 H Eos # (Auto) 0.4 Baso # (Auto) 0.1 WBC Differential . Differential Comment Auto diff final Sodium 137 Potassium 4.2 Chloride 96 L Carbon Dioxide 34.6 H Anion Gap 6 BUN 37 H Creatinine 1.44 H Estimated GFR 53 L POC Glucose 198 H Random Glucose 180 H Calcium 9.1 Phosphorus 4.2 Magnesium 1.8 Albumin 3.1 L Blood Type Antibody Screen MTS Gel Crossmatch Bld Prod Order Comment 09/21/17 12:38 WBC RBC Hgb Hct MCV MCH MCHC RDW Plt Count MPV Neut % (Auto) Lymph % (Auto) Terrell % (Auto) Eos % (Auto) Baso % (Auto) Neut # (Auto) Lymph # (Auto) Terrell # (Auto) Eos # (Auto) Baso # (Auto) WBC Differential Differential Comment Sodium Potassium Chloride Carbon Dioxide Anion Gap BUN Creatinine Estimated GFR POC Glucose 138 H Random Glucose Calcium Phosphorus Magnesium Albumin Blood Type Antibody Screen MTS Gel Crossmatch Bld Prod Order Comment Microbiology 08/24/17 15:00 Tissue - Ankle Fungal Smear - Final No fungal elements seen 08/24/17 15:00 Tissue - Ankle Fungal Culture - Final No growth in 4 weeks 08/24/17 15:00 Tissue - Ankle Acid Fast Bacilli Smear - Final No acid fast bacilli seen 08/24/17 15:00 Tissue - Ankle Mycobacterial Culture - Preliminary No growth in 4 weeks - Procedures Right posterior Achilles incision and drainage 08/24/[address] Della Dhillon placement by Dr. Vasquez 09/19/17 Assessment and Plan - Assessment (1) Rupture of right Achilles tendon Code(s): S86.011A - Strain of right Achilles tendon, initial encounter Status : Acute Plan: Open Achilles rupture, right - Recent admission with Achilles rupture - Pt underwent open repair of right Achilles tendon rupture with flexor hallucis longus tendon transfer and gastrocnemius recession, right lower extremity on 07/24/[address] Murillo. - Per podiatry, pt will need to be strict non-weight bearing for 6-8 weeks. - Pt was noted to have increased swelling and pain in the RLE on 08/04 - LE Doppler US (08/04) --> Is negative for DVT - Refused dc to snf and was noncompliant with weight bearing instructions. - Pt was readmitted with infection at operative site on 08/16 - He was seen by podiatry in clinic on 08/16 and sent to ED - MRI right ankle (08/16): 1. Postoperative change at the distal Achilles and calcaneus. Increased signal within the posterior calcaneus can all be consistent with postoperative change. It would be difficult to rule out osteomyelitis. 2. Fluid seen around the Achilles tendon. More superiorly in the mid lower leg, there is a larger fluid collection with peripheral enhancement. There is also a thinner fluid collection seen more superiorly in the proximal lower leg around the lateral aspect of the soleus muscle. These fluid collections could be postoperative seromas. An abscess could have a similar appearance. - vanco and Zosyn (08/17) - Rocephin (08/17 - present) - Rocephin stop date 10/07/17 - Comgmt with ID & Podiatry - Pt had a previous outpt culture taken on 08/11 which grew out Enterobacter cloacae - Right posterior Achilles incision and drainage 08/24/[address] Hull - Intraoperative wound Cx (08/24) --> Enterobacter cloacae - Plan to DC to SNF/rehab following hospitalization to ensure non-weight bearing of RLE and good recovery. Pt at risk for Right BKA. - The case was discussed with [facility]. Copay for SNF was defaulted. CM consulted. Pt agreeable for SNF but need to get accepting facility - Pt not ready for dc yet - Discussed dc abx with ID. orders written continue PT efforts. Volume overload Anasarca/edema Nephrotic range proteinuria - Pt was moved to ICU after Halicat and hypoxia on 08/31. Pt had received small dose of morphine a few hrs before the event. He was refusing bipap but now agreeable. Pt being followed by Dr Sawyer. - He continues with severe anasarca/lower ext edema and scrotal swelling. Also he has sleep apnea/hypoventilation and has hypoalbuminemia. - Procardia lowered to 30mg BID on 08/31, BP is stable. - Had right heart cath on last admission revealing increased right heart pressure. He has also some mild systolic dysfunction with EF 45% - comgmt with Nephrology - Pt continues to exhibit significant clinical volume overload and is NOT yet ready for discharge. - Medical team/Nephrology has been trying to diurese pt for several weeks. - Pt has been tried on IV lasix, IV bumex, and bumex gtt. Pt had good urine output, but did NOT make any significant clinical improvement. - nephrology recommending renal bx to evaluate for FSGS once patient stable. Unable to stop ASA/palvix at this time. - restrict fluids to 1.5 liters daily - IV bumex - Case d/w Nephrology, Dr. Steele (09/19/17). - VasCath (09/19/17) - Pt had first HD 09/19 with removal of 2 Liters - repeat HD 09/20/17 with removal of 1.5 liters, d/t pt c/o leg cramping - Case d/w Nephrology 09/20/17. - Repeat HD 09/21/17 with 6.5 L removed, next HD planned for Tuesday - left leg rolanda wrapping - pt will need snf or rehab placement once accepted Obesity hypoventilation syndrome Hypercapnic respiratory insufficiency Obesity hypoventilation syndrome COPD - 2-D echocardiogram 07/23/17: - The left ventricular systolic function is mildly reduced with an estimated ejection fraction in the range of 45- 50%. - Mild infero-posterior hypokinesis - Mild concentric left ventricular hypertrophy. - The left atrial size is moderately dilated. - RHC completed (07/28) --> Class 2 Pulm HTN, PCW 23 - No Right heart strain, so sildenafil was stopped - Pt is noncompliant with CPAP - Pt sedated overnight - decrease flexeril to 5mg q8h prn - decrease norco to q6h prn - encourage pt to wear CPAP at night. COPD (chronic obstructive pulmonary disease) - chronic does not appear to be in acute exacerbation - Pt requiring 3-4L of supplemental O2 - Diabetes - Cont OHA and SSI. basal levemir - continue titration up on levemir today. HTN (hypertension) - cont current BP meds, Cozaar 50mg q12H, Hydralazine 50mg TID, Coreg 25mg BID - May try to lower or stop Procardia. - Hydralazine PO PRN Anemia - Pts H/H has slowly been declining. No noted active GIB - During the last admission the pt was transfused with 2 units PRBCs (08/10) - During recent admission pt underwent evaluation with EGD/Colonoscopy (08/11/17 ) with Dr. Mccormick - int/ext hemorrhoids - sigmoid diverticulosis - esophagitis - gastric biopsies taken, results pending - Repeat labs on 08/21/17 with Hgb 8.3/Hct 24.6 -> 7.7/23.5 (08/24) -> 7.8/24.2, 7.6 (08/27), 8.5 (08/28), 7.7 (09/07), 7.9 (09/08) - Hg 7.9 (09/10) - Iron studies 08/08/17 Iron 26, TIBC 244, % saturation 10.7, ferritin 246 - ferritin 154 (08/27), retic 82 (08/27); b12 515, folate 7.9 (08/26) - case informally d/w Hematology - since ferritin > 100, unlikely d/t ANAHI - 2 units PRBCs (08/27/17) - Hg 7.2 (09/20/17) - transfuse 2 units PRBCs 09/20 - 09/21 Hgb 9.1, Hct 27.2 CAD (coronary artery disease) Recent history of pulmonary embolism - Patient had a PE approximately 8 months ago and was on Coumadin for until the cardiac cauterization 06/17/17 - Patient with recent cardiac catheterization with PCI 06/17/17 - After catheterization patient's Coumadin was DC'd and he was started on Aspirin and Plavix - Continue patient's Aspirin 81 mg daily, Plavix 75 mg PO daily, Atorvastatin 40 mg PO QHS and Coreg BID Anxiety and depression - Cont. Paxil 20mg daily - Attending Attestation Patient examined. Assessment and plan formulated with Sally Mathias PA-C. I agree with the above. (1) Rupture of right Achilles tendon Qualifiers: Encounter type: subsequent encounter Qualified Code(s): S86.011D - Strain of right Achilles tendon, subsequent encounter
--- NOTE | 2017-09-21 20:03 | P.PNPL ---
Subjective Interval history: 47 YOWM with Achelis tendon repair,JUDY,COPD Has huge scrotal swelling Diureasing Feels swelling decreasing Had HD today, 6.5 L fluid removed Feels sore Physical Exam Vital signs: Vital Signs 09/20/17 20:06 09/20/17 21:40 09/20/17 21:55 Temperature 97.8 F 98.5 F Pulse Rate 88 88 86 Respiratory Rate 16 20 20 Blood Pressure 137/68 151/77 H Pulse Oximetry 96 97 09/20/17 23:25 09/20/17 23:56 09/21/17 00:00 Temperature 99.4 F Pulse Rate 91 H 91 H Respiratory Rate 18 17 18 Blood Pressure 158/83 H Pulse Oximetry 97 09/21/17 01:28 09/21/17 01:45 09/21/17 04:00 Temperature 97.7 F 98.1 F 97.4 F L Pulse Rate 91 H 87 82 Respiratory Rate 20 18 18 Blood Pressure 139/76 124/64 133/76 Pulse Oximetry 97 97 100 09/21/17 04:17 09/21/17 06:50 09/21/17 08:00 Temperature Pulse Rate 82 77 Respiratory Rate 17 18 14 Blood Pressure Pulse Oximetry 98 09/21/17 09:50 09/21/17 12:00 09/21/17 16:00 Temperature 98.4 F 98.2 F Pulse Rate 86 84 98 H Respiratory Rate 16 18 14 Blood Pressure 139/81 134/82 Pulse Oximetry 94 L 99 Intake & Output 09/21/17 09/21/17 09/22/17 06:59 18:59 06:59 Intake Total 1800 / 1800 100 / 100 Output Total 1325 / 1325 6700 / 6700 Balance 475 / 475 -6600 / -6600 Weight 173.6 kg Intake: IV 100 / 100 100 / 100 Flexbumin 25% Inj 100 ML @ 60 100 / 100 mls/hr IV.SIG WITH DIALYSIS PRN Rx#:[id number] Rocephin Inj 2,000 MG In NS Inj 100 / 100 100 ML @ 200 mls/hr IV.SIG Q24H [facility] Rx#:[id number] Oral 900 / 900 Intake (Blood Product) Amt 800 / 800 Rbc As-3 Leukoreduced Unit 400 / 400 [id number] Rbc As-3 Leukoreduced Unit 400 / 400 [id number] Output: Urine 1325 / 1325 700 / 700 Hemodialysis Amount 6000 / 6000 Other: Date of Last Bowel Movement 09/20/17 09/18/17 GENERAL: Obese WM,NAD SKIN: Warm and dry. HEAD: Normocephalic. EYES: No scleral icterus. No injection or drainage. NECK: Supple, trachea midline. No JVD or lymphadenopathy. CARDIOVASCULAR: Regular rate and rhythm without murmurs, gallops, or rubs. RESPIRATORY: Breath sounds equal bilaterally. No accessory muscle use. GASTROINTESTINAL: Abdomen soft, non-tender, nondistended. MUSCULOSKELETAL: No cyanosis, ++ edema. Still has Scrotal swelling. BACK: Nontender without obvious deformity. No CVA tenderness. Assessment and Plan - Plan IMPRESSION: 1. Hypercapnic respiratory insufficiency. 2. Chronic obstructive pulmonary disease. 3. Obstructive sleep apnea. 4. Achilles tendon repair and leg infection. 5. Diabetes mellitus. 5. Scrotal edema. PLAN: Aerosol nebs Supplement 02 Encourage to use CPAP at night SQ Lovenox Bumex 2 mg q 8 hrs monitor Abimael.
[2017-09-22] MEDS: oxyCODONE/Acetaminophen 10/325 Tablet PO PRN ×5 (00:15→22:09)
[2017-09-22] MEDS: Sodium Chloride 0.65% Nasal Spray 45 ML Bottle EACH NARE SCH ×4 (03:22→21:00)
[2017-09-22] MEDS: Gabapentin 300 MG Capsule PO SCH ×3 (05:43→22:11)
[2017-09-22] MEDS: LORazepam 0.5 MG Tablet PO PRN ×3 (05:43→21:30)
[2017-09-22] MEDS: hydrALAZINE 25 MG Tablet PO SCH ×3 (09:32→18:26)
[2017-09-22] MEDS: Glimepiride 4 MG Tablet PO SCH ×2 (09:33→16:41)
[2017-09-22] MEDS: Carvedilol 12.5 MG Tablet PO SCH ×2 (09:34→22:11)
[2017-09-22] MEDS: Nystatin Liq 500,000 UNIT/5 ML UDC SWISH-SWAL SCH ×4 (09:35→21:00)
[2017-09-22] MEDS: Senna/Docusate Sodium 8.6/50 MG Tablet PO SCH ×2 (09:36→21:00)
[2017-09-22] MEDS: Allopurinol 100 MG Tablet PO SCH (09:36)
[2017-09-22] MEDS: Heparin Central Flush 100 UNIT/ML 5 ML Vial IV.FLUSH SCH (09:39)
[2017-09-22] MEDS: Insulin Detemir Inj 1,000 UNIT/10 ML Vial SQ SCH ×2 (09:57→21:00)
[2017-09-22] MEDS: Insulin NovoLOG Aspart Correctional Sugar Inj SQ SCH ×4 (09:58→21:00)
--- NOTE | 2017-09-22 11:37 | P.PNNP ---
Subjective Interval history: Complaining of cough and some chest congestion. Low grade temp last night. <Beth Bolanos - Last Filed: 09/22/17 11:33> Physical Exam Vital signs: Vital Signs 09/21/17 12:00 09/21/17 16:00 09/21/17 20:00 Temperature 98.4 F 98.2 F 98.7 F Pulse Rate 84 98 H 105 H Respiratory Rate 18 14 18 Blood Pressure 139/81 134/82 186/89 H Pulse Oximetry 99 97 09/22/17 00:00 09/22/17 04:00 09/22/17 07:06 Temperature 100.1 F H 99.1 F Pulse Rate 95 H 99 H Respiratory Rate 18 20 14 Blood Pressure 142/75 H 126/65 Pulse Oximetry 98 97 98 09/22/17 08:00 09/22/17 09:15 Temperature 99.6 F Pulse Rate 74 Respiratory Rate 14 Blood Pressure 113/56 L Pulse Oximetry 98 97 Intake & Output 09/21/17 09/22/17 09/22/17 18:59 06:59 18:59 Intake Total 100 / 100 985 / 985 Output Total 6700 / 6700 750 / 750 Balance -6600 / -6600 235 / 235 Weight 170.2 kg Intake: IV 100 / 100 150 / 150 Flexbumin 25% Inj 50 ML @ 60 50 / 50 mls/hr IV.SIG Q12H [facility] Rx#: [id number] Flexbumin 25% Inj 100 ML @ 60 100 / 100 mls/hr IV.SIG WITH DIALYSIS PRN Rx#:[id number] Rocephin Inj 2,000 MG In NS Inj 100 / 100 100 ML @ 200 mls/hr IV.SIG Q24H [facility] Rx#:[id number] Oral 835 / 835 Output: Urine 700 / 700 750 / 750 Hemodialysis Amount 6000 / 6000 Other: Date of Last Bowel Movement 09/18/17 09/18/17 - Constitutional no acute distress, obese - Routine HEENT Exam Head: Present: normocephalic - Routine Neck Exam Present: supple. Absent: JVD - Routine Respiratory Exam Present: distant breath sounds. Absent: rales, rhonchi, wheezes - Routine Cardiovascular Exam Present: RRR. Absent: murmur - Routine Abdominal Exam Present: soft, normoactive bowel sounds. Absent: tenderness Comments: large - Routine Extremities Exam Present: edema, vascular access - Routine Skin Exam Present: dry, warm, wounds - Routine Neurological Exam Present: alert, oriented X3 - Routine Psychiatric Exam Present: cooperative <Beth Bolanos - Last Filed: 09/22/17 11:33> Vital signs: Vital Signs 09/21/17 20:00 09/22/17 00:00 09/22/17 04:00 Temperature 98.7 F 100.1 F H 99.1 F Pulse Rate 105 H 95 H 99 H Respiratory Rate 18 18 20 Blood Pressure 186/89 H 142/75 H 126/65 Pulse Oximetry 97 98 97 09/22/17 07:06 09/22/17 08:00 09/22/17 09:15 Temperature 99.6 F Pulse Rate 74 Respiratory Rate 14 14 Blood Pressure 113/56 L Pulse Oximetry 98 98 97 09/22/17 12:00 09/22/17 16:00 09/22/17 17:52 Temperature 99.3 F 98.9 F Pulse Rate 89 72 Respiratory Rate 14 14 Blood Pressure 136/61 122/84 Pulse Oximetry 95 98 95 Intake & Output 09/22/17 09/22/17 09/23/17 06:59 18:59 06:59 Intake Total 985 / 985 Output Total 750 / 750 200 / 200 Balance 235 / 235 -200 / -200 Weight 170.2 kg Intake: IV 150 / 150 Flexbumin 25% Inj 50 ML @ 60 50 / 50 mls/hr IV.SIG Q12H [facility] Rx#: [id number] Rocephin Inj 2,000 MG In NS Inj 100 / 100 100 ML @ 200 mls/hr IV.SIG Q24H [facility] Rx#:[id number] Oral 835 / 835 Output: Urine 750 / 750 200 / 200 Other: Date of Last Bowel Movement 09/18/17 <Dash Steele - Last Filed: 09/22/17 19:10> Assessment and Plan - Assessment (1) Acute kidney injury superimposed on chronic kidney disease Code(s): N17.9 - Acute kidney failure, unspecified; N18.9 - Chronic kidney disease, unspecified Status: Acute - Plan Patient has Nephrotic Proteinuria with Anasarca. Will need Renal Biopsy but now on ASA and Plavix, will need to delay the Kidney Biopsy for now. Hemodialysis started on 09/19 Will continue Bumex TID and Metolazone Continues to have anasarca. Avoid nephrotoxins Hemodialysis yesterday with HD/UF of 6 liters Hemodialysis tomorrow Labs in AM <Beth Bolanos - Last Filed: 09/22/17 11:33> - Assessment (1) Acute kidney injury superimposed on chronic kidney disease Code(s): N17.9 - Acute kidney failure, unspecified; N18.9 - Chronic kidney disease, unspecified Status: Acute - Attending Attestation Patient seen and examine, agree with above. HD and UF will be in AM. <Dash Steele - Last Filed: 09/22/17 19:10>
[2017-09-22] MEDS: Albumin Human 25% Inj 50 ML IV.SIG SCH ×2 (13:25→23:00)
--- NOTE | 2017-09-22 13:28 | XR ---
EXAM DATE: 09/22/2017 1:17 PM EDT AGE/SEX: 47 years / Male INDICATIONS: . Cough, short of breath CLINICAL DATA: This is the patient's subsequent encounter. Patient reports that signs and symptoms h ave been present for 3 days and indicates a pain score of 2/10. MEDICAL/SURGICAL HISTORY: Chronic obstructive pulmonary disease. Congestive heart failure. Hy pertension. renal disease, cardiovascular disease, dialysis Coronary artery stent. dialysis cathete r COMPARISON: [facility], CHEST 1V SINGLE AP, 09/12/2017. . FINDINGS: AP and lateral views of the chest demonstrate the lungs to be symmetrically aerated without evidence of mass, infiltrate or effusion. There is some mild pulmonary venous congestion. There is a right-erick ed central line in place and right PICC line without evidence of pneumothorax. The cardiomediastinal contours are stable. Osseous structures are intact and stable. CONCLUSION: 1. Pulmonary venous congestion. 2. Right-sided central lines in place. No pneumothorax. Electronically signed by: Theodore Hutson MD 09/22/2017 1:27 PM EDT
[2017-09-22 14:51] LABS: Baso # (Auto) 0.1 th/mm3 (0.0-0.2); Baso % (Auto) 0.9 % (0.0-2.0); Eos # (Auto) 0.3 th/mm3 (0.0-0.4); Eos % (Auto) 4.4 % (0.0-4.0); Hematocrit 24.9 % (39.0-51.0); Hemoglobin 8.2 gm/dL (13.0-17.0); Lymph # (Auto) 1.1 th/mm3 (1.0-4.8); Lymph % (Auto) 14.1 % (9.0-44.0); Mean Corpuscular HGB Conc 33.1 % (32.0-36.0); Mean Corpuscular Volume 81.7 fL (80.0-100.0); Mono # (Auto) 1.1 th/mm3 (0.0-0.9); Mono % (Auto) 14.3 % (0.0-8.0); Neut % (Auto) 66.3 % (16.0-70.0); Platelet Count 268 th/mm3 (150-450); Red Blood Count 3.04 mil/mm3 (4.50-5.90); Red Cell Distribution Width 16.1 % (11.6-17.2); White Blood Count 7.6 th/mm3 (4.0-11.0)
--- NOTE | 2017-09-22 15:31 | P.PNPL ---
Subjective Interval history: 47 YOWM with Achelis tendon repair,JUDY,COPD Has huge scrotal swelling Diureasing Feels swelling decreasing had low grade fever Breathing nebs help Physical Exam Vital signs: Vital Signs 09/21/17 16:00 09/21/17 20:00 09/22/17 00:00 Temperature 98.2 F 98.7 F 100.1 F H Pulse Rate 98 H 105 H 95 H Respiratory Rate 14 18 18 Blood Pressure 134/82 186/89 H 142/75 H Pulse Oximetry 99 97 98 09/22/17 04:00 09/22/17 07:06 09/22/17 08:00 Temperature 99.1 F 99.6 F Pulse Rate 99 H 74 Respiratory Rate 20 14 14 Blood Pressure 126/65 113/56 L Pulse Oximetry 97 98 98 09/22/17 09:15 09/22/17 12:00 Temperature 99.3 F Pulse Rate 89 Respiratory Rate 14 Blood Pressure 136/61 Pulse Oximetry 97 95 Intake & Output 09/21/17 09/22/17 09/22/17 18:59 06:59 18:59 Intake Total 100 / 100 985 / 985 Output Total 6700 / 6700 750 / 750 Balance -6600 / -6600 235 / 235 Weight 170.2 kg Intake: IV 100 / 100 150 / 150 Flexbumin 25% Inj 50 ML @ 60 50 / 50 mls/hr IV.SIG Q12H [facility] Rx#: [id number] Flexbumin 25% Inj 100 ML @ 60 100 / 100 mls/hr IV.SIG WITH DIALYSIS PRN Rx#:[id number] Rocephin Inj 2,000 MG In NS Inj 100 / 100 100 ML @ 200 mls/hr IV.SIG Q24H [facility] Rx#:[id number] Oral 835 / 835 Output: Urine 700 / 700 750 / 750 Hemodialysis Amount 6000 / 6000 Other: Date of Last Bowel Movement 09/18/17 09/18/17 GENERAL: WBWn male NAD SKIN: Warm and dry. HEAD: Normocephalic. EYES: No scleral icterus. No injection or drainage. NECK: Supple, trachea midline. No JVD or lymphadenopathy. CARDIOVASCULAR: Regular rate and rhythm without murmurs, gallops, or rubs. RESPIRATORY: Breath sounds equal bilaterally. No accessory muscle use. GASTROINTESTINAL: Abdomen soft, non-tender, nondistended. MUSCULOSKELETAL: No cyanosis, ++ edema. BACK: Nontender without obvious deformity. No CVA tenderness. Assessment and Plan - Plan IMPRESSION: 1. Hypercapnic respiratory insufficiency. 2. Chronic obstructive pulmonary disease. 3. Obstructive sleep apnea. 4. Achilles tendon repair and leg infection. 5. Diabetes mellitus. 5. Scrotal edema. PLAN: Duonebs q 6 hrs Supplement 02 Encourage to use CPAP at night SQ Lovenox Bumex 2 mg q 8 hrs monitor Abimael.
--- NOTE | 2017-09-22 16:25 | P.PNIM ---
Subjective Interval history: Pt c/o cough. Pt had fever overnight, Tmax = 100.1 at [place] 09/22/17 Physical Exam Vital signs: 09/22/17 12:00 Temperature 99.3 F Pulse Rate 89 Respiratory Rate 14 Blood Pressure 136/61 Pulse Oximetry 95 Narrative: General: NAD, AAOx3 Cardiac: regular Chest: clear x b/l Abd: +BS, soft, distended, obese, nontender Ext: Anasarca flanks/lower ext/scrotum, right leg splinted Results - Labs CBC & Chem 7: 10/04/17 07:22 10/06/17 07:17 Microbiology 08/24/17 15:00 Tissue - Ankle Fungal Smear - Final No fungal elements seen 08/24/17 15:00 Tissue - Ankle Fungal Culture - Final No growth in 4 weeks 08/24/17 15:00 Tissue - Ankle Acid Fast Bacilli Smear - Final No acid fast bacilli seen 08/24/17 15:00 Tissue - Ankle Mycobacterial Culture - Preliminary No growth in 4 weeks - Imaging Needle Aspiration US 08/22/17 00:00 CONCLUSION: Very minimal serosanguineous fluid approximating 0.5 cc. Foot X-Ray 08/25/17 07:11 CONCLUSION: 1. No acute fracture or dislocation. 2. Soft tissue swelling about the hind and midfoot. Scrotum Ultrasound 08/31/17 00:00 CONCLUSION: 1. Significant scrotal edema. 2. Trace hydrocele 3. Testicles appear normal. Abdomen/Bladder Ultrasound 09/03/17 00:00 CONCLUSION: Limited exam of the kidneys. The visualized secondary to the patient's body habitus. Knee X-Ray 09/10/17 00:00 CONCLUSION: Unremarkable exam. Catheter Placement 09/19/17 00:00 CONCLUSION: 1. Uncomplicated line placement as above. Chest X-Ray 09/22/17 00:00 CONCLUSION: 1. Pulmonary venous congestion. 2. Right-sided central lines in place. No pneumothorax. - Procedures Right posterior Achilles incision and drainage 08/24/[address] Della Dhillon placement by Dr. Vasquez 09/19/17 Assessment and Plan - Assessment (1) Rupture of right Achilles tendon Code(s): S86.011A - Strain of right Achilles tendon, initial encounter Status : Acute Plan: Open Achilles rupture, right - Recent admission with Achilles rupture - Pt underwent open repair of right Achilles tendon rupture with flexor hallucis longus tendon transfer and gastrocnemius recession, right lower extremity on 07/24/[address] Murillo. - Per podiatry, pt will need to be strict non-weight bearing for 6-8 weeks. - Pt was noted to have increased swelling and pain in the RLE on 08/04 - LE Doppler US (08/04) --> Is negative for DVT - Refused dc to snf and was noncompliant with weight bearing instructions. - Pt was readmitted with infection at operative site on 08/16 - He was seen by podiatry in clinic on 08/16 and sent to ED - MRI right ankle (08/16): 1. Postoperative change at the distal Achilles and calcaneus. Increased signal within the posterior calcaneus can all be consistent with postoperative change. It would be difficult to rule out osteomyelitis. 2. Fluid seen around the Achilles tendon. More superiorly in the mid lower leg, there is a larger fluid collection with peripheral enhancement. There is also a thinner fluid collection seen more superiorly in the proximal lower leg around the lateral aspect of the soleus muscle. These fluid collections could be postoperative seromas. An abscess could have a similar appearance. - vanco and Zosyn (08/17) - Rocephin (08/17 - present) - Rocephin stop date 10/07/17 - Comgmt with ID & Podiatry - Pt had a previous outpt culture taken on 08/11 which grew out Enterobacter cloacae - Right posterior Achilles incision and drainage 08/24/[address] Hull - Intraoperative wound Cx (08/24) --> Enterobacter cloacae - Plan to DC to SNF/rehab following hospitalization to ensure non-weight bearing of RLE and good recovery. Pt at risk for Right BKA. - The case was discussed with [facility]CP. Copay for SNF was defaulted. CM consulted. Pt agreeable for SNF but need to get accepting facility - Pt not ready for dc yet - Discussed dc abx with ID. orders written continue PT efforts. Volume overload Anasarca/edema Nephrotic range proteinuria - Pt was moved to ICU after Halicat and hypoxia on 08/31. Pt had received small dose of morphine a few hrs before the event. He was refusing bipap but now agreeable. Pt being followed by Dr Sawyer. - He continues with severe anasarca/lower ext edema and scrotal swelling. Also he has sleep apnea/hypoventilation and has hypoalbuminemia. - Procardia lowered to 30mg BID on 08/31, BP is stable. - Had right heart cath on last admission revealing increased right heart pressure. He has also some mild systolic dysfunction with EF 45% - comgmt with Nephrology - Pt continues to exhibit significant clinical volume overload and is NOT yet ready for discharge. - Medical team/Nephrology has been trying to diurese pt for several weeks. - Pt has been tried on IV lasix, IV bumex, and bumex gtt. Pt had good urine output, but did NOT make any significant clinical improvement. - nephrology recommending renal bx to evaluate for FSGS once patient stable. Unable to stop ASA/palvix at this time. - restrict fluids to 1.5 liters daily - IV bumex - Case d/w Nephrology, Dr. Steele (09/19/17). - VasCath (09/19/17) - Pt had first HD 09/19 with removal of 2 Liters - repeat HD 09/20/17 with removal of 1.5 liters, d/t pt c/o leg cramping - Case d/w Nephrology 09/20/17. - Repeat HD 09/21/17 with 6.5 L removed, - next HD 09/23 - left leg rolanda wrapping - pt will need snf or rehab placement once accepted Obesity hypoventilation syndrome Hypercapnic respiratory insufficiency Obesity hypoventilation syndrome COPD - 2-D echocardiogram 07/23/17: - The left ventricular systolic function is mildly reduced with an estimated ejection fraction in the range of 45- 50%. - Mild infero-posterior hypokinesis - Mild concentric left ventricular hypertrophy. - The left atrial size is moderately dilated. - RHC completed (07/28) --> Class 2 Pulm HTN, PCW 23 - No Right heart strain, so sildenafil was stopped - Pt is noncompliant with CPAP - Pt sedated overnight - decrease flexeril to 5mg q8h prn - decrease norco to q6h prn - encourage pt to wear CPAP at night. COPD (chronic obstructive pulmonary disease) - chronic does not appear to be in acute exacerbation - Pt requiring 2L O2 - CXR (09/22) --> venous congestion - IS - tessalon pearles prn cough - observe Diabetes - Cont OHA and SSI. basal levemir - continue titration up on levemir today. HTN (hypertension) - cont current BP meds, Cozaar 50mg q12H, Hydralazine 50mg TID, Coreg 25mg BID - May try to lower or stop Procardia. - Hydralazine PO PRN Anemia - Pts H/H has slowly been declining. No noted active GIB - During the last admission the pt was transfused with 2 units PRBCs (08/10) - During recent admission pt underwent evaluation with EGD/Colonoscopy (08/11/17 ) with Dr. Mccormick - int/ext hemorrhoids - sigmoid diverticulosis - esophagitis - gastric biopsies taken, results pending - Repeat labs on 08/21/17 with Hgb 8.3/Hct 24.6 -> 7.7/23.5 (08/24) -> 7.8/24.2, 7.6 (08/27), 8.5 (08/28), 7.7 (09/07), 7.9 (09/08) - Hg 7.9 (09/10) - Iron studies 08/08/17 Iron 26, TIBC 244, % saturation 10.7, ferritin 246 - ferritin 154 (08/27), retic 82 (08/27); b12 515, folate 7.9 (08/26) - case informally d/w Hematology - since ferritin > 100, unlikely d/t ANAHI - 2 units PRBCs (08/27/17) - Hg 7.2 (09/20/17) - transfuse 2 units PRBCs 09/20 - 09/21 Hgb 9.1, Hct 27.2 CAD (coronary artery disease) Recent history of pulmonary embolism - Patient had a PE approximately 8 months ago and was on Coumadin for until the cardiac cauterization 06/17/17 - Patient with recent cardiac catheterization with PCI 06/17/17 - After catheterization patient's Coumadin was DC'd and he was started on Aspirin and Plavix - Continue patient's Aspirin 81 mg daily, Plavix 75 mg PO daily, Atorvastatin 40 mg PO QHS and Coreg BID Anxiety and depression - Cont. Paxil 20mg daily (1) Rupture of right Achilles tendon Qualifiers: Encounter type: subsequent encounter Qualified Code(s): S86.011D - Strain of right Achilles tendon, subsequent encounter
[2017-09-22] MEDS: Enoxaparin Inj 40 MG/0.4 ML Syringe SQ SCH (22:42)
[2017-09-23] MEDS: Sodium Chloride 0.65% Nasal Spray 45 ML Bottle EACH NARE SCH ×4 (03:00→21:00)
[2017-09-23] MEDS: oxyCODONE/Acetaminophen 10/325 Tablet PO PRN ×5 (03:31→22:54)
[2017-09-23] MEDS: LORazepam 0.5 MG Tablet PO PRN ×3 (03:32→21:00)
[2017-09-23] MEDS: Heparin Central Flush 100 UNIT/ML 5 ML Vial IV.FLUSH PRN (03:33)
[2017-09-23] MEDS: Gabapentin 300 MG Capsule PO SCH ×3 (06:27→22:00)
[2017-09-23 07:49] LABS: Baso # (Auto) 0.1 th/mm3 (0.0-0.2); Baso % (Auto) 1.2 % (0.0-2.0); Eos # (Auto) 0.4 th/mm3 (0.0-0.4); Eos % (Auto) 6.8 % (0.0-4.0); Hematocrit 25.1 % (39.0-51.0); Hemoglobin 8.3 gm/dL (13.0-17.0); Lymph % (Auto) 15.9 % (9.0-44.0); Mean Corpuscular HGB Conc 33.1 % (32.0-36.0); Mean Corpuscular Hemoglobin 26.9 pg (27.0-34.0); Mean Corpuscular Volume 81.4 fL (80.0-100.0); Mean Platelet Volume 7.2 fL (7.0-11.0); Mono # (Auto) 0.9 th/mm3 (0.0-0.9); Mono % (Auto) 13.9 % (0.0-8.0); Neut % (Auto) 62.2 % (16.0-70.0); Platelet Count 280 th/mm3 (150-450); Red Blood Count 3.08 mil/mm3 (4.50-5.90); White Blood Count 6.4 th/mm3 (4.0-11.0)
[2017-09-23 08:30] LABS: Albumin 3.4 g/dL (3.4-5.0); Calcium 8.9 mg/dL (8.5-10.1); Carbon Dioxide 34.4 meq/L (21.0-32.0); Phosphorus 6.6 mg/dL (2.5-4.9); Potassium 4.8 meq/L (3.5-5.1)
[2017-09-23 08:57] LABS: Eosinophils 6 % (0-4); Lymphocytes 19 % (9-44); Metamyelocytes 1 % (0-1); Monocytes 9 % (0-8); Myelocytes 1 % (0-0)
[2017-09-23 08:58] LABS: Platelet Estimate Normal (Normal); Platelet Morphology Normal (Normal)
[2017-09-23] MEDS: Allopurinol 100 MG Tablet PO SCH (09:00)
[2017-09-23] MEDS: Glimepiride 4 MG Tablet PO SCH ×2 (09:51→18:14)
[2017-09-23] MEDS: hydrALAZINE 25 MG Tablet PO SCH ×3 (09:52→18:14)
[2017-09-23] MEDS: Insulin NovoLOG Aspart Correctional Sugar Inj SQ SCH ×4 (09:52→21:00)
[2017-09-23] MEDS: Insulin Detemir Inj 1,000 UNIT/10 ML Vial SQ SCH ×2 (09:53→21:00)
[2017-09-23] MEDS: Heparin Central Flush 100 UNIT/ML 5 ML Vial IV.FLUSH SCH (09:53)
[2017-09-23] MEDS: Carvedilol 12.5 MG Tablet PO SCH ×2 (09:53→21:00)
[2017-09-23] MEDS: Nystatin Liq 500,000 UNIT/5 ML UDC SWISH-SWAL SCH ×4 (09:54→21:00)
[2017-09-23] MEDS: Senna/Docusate Sodium 8.6/50 MG Tablet PO SCH ×2 (09:55→21:00)
[2017-09-23] MEDS: Albumin Human 25% Inj 50 ML IV.SIG SCH (11:00)
--- NOTE | 2017-09-23 11:37 | P.PNNP ---
Subjective Interval history: Resting comfortable, creatinine has increased from 1.44 to 3.51 and urinary output decreased. <Beth Bolanos - Last Filed: 09/23/17 11:31> Physical Exam Vital signs: Vital Signs 09/22/17 12:00 09/22/17 16:00 09/22/17 17:52 Temperature 99.3 F 98.9 F Pulse Rate 89 72 Respiratory Rate 14 14 Blood Pressure 136/61 122/84 Pulse Oximetry 95 98 95 09/22/17 20:00 09/22/17 23:36 09/23/17 00:00 Temperature 97.0 F L 97.4 F L Pulse Rate 95 H 84 88 Respiratory Rate 18 18 16 Blood Pressure 128/73 125/64 Pulse Oximetry 94 L 93 L 09/23/17 04:00 09/23/17 08:00 Temperature 97.0 F L 96.3 F L Pulse Rate 105 H 84 Respiratory Rate 16 20 Blood Pressure 145/78 H 140/73 Pulse Oximetry 98 97 Intake & Output 09/22/17 09/23/17 09/23/17 18:59 06:59 18:59 Intake Total 50 / 50 810 / 810 Output Total 200 / 200 275 / 275 Balance -150 / -150 535 / 535 Weight 172 kg Intake: IV 50 / 50 150 / 150 Flexbumin 25% Inj 50 ML @ 60 50 / 50 50 / 50 mls/hr IV.SIG Q12H [facility] Rx#: [id number] Rocephin Inj 2,000 MG In NS Inj 100 / 100 100 ML @ 200 mls/hr IV.SIG Q24H [facility] Rx#:[id number] Oral 660 / 660 Output: Urine 200 / 200 275 / 275 Other: Date of Last Bowel Movement 09/18/17 09/18/17 Narrative: GENERAL: Alert and oriented. SKIN: Warm and dry. Right IJ HEAD: Normocephalic. EYES: No scleral icterus. No injection or drainage. NECK: Supple, trachea midline. No JVD or lymphadenopathy. CARDIOVASCULAR: Regular rate and rhythm without murmurs, gallops, or rubs. RESPIRATORY: Breath sounds distant bilaterally. No accessory muscle use. GASTROINTESTINAL: Abdomen soft, non-tender, nondistended. MUSCULOSKELETAL: No cyanosis, ++ edema. Splint/rolanda on right foort BACK: Nontender without obvious deformity. No CVA tenderness. <Beth Bolanos - Last Filed: 09/23/17 11:31> Vital signs: Vital Signs 09/23/17 12:00 09/23/17 16:00 09/23/17 20:00 Temperature 97.6 F 97.8 F 98.5 F Pulse Rate 90 98 H 87 Respiratory Rate 18 22 18 Blood Pressure 137/90 140/74 124/64 Pulse Oximetry 98 97 98 09/23/17 20:39 09/24/17 00:00 09/24/17 01:50 Temperature 98.3 F Pulse Rate 86 Respiratory Rate 14 18 16 Blood Pressure 126/85 Pulse Oximetry 98 09/24/17 03:52 09/24/17 04:00 09/24/17 08:00 Temperature 98.4 F 97.1 F L Pulse Rate 90 104 H Respiratory Rate 18 16 20 Blood Pressure 137/72 143/81 H Pulse Oximetry 97 96 Intake & Output 09/23/17 09/24/17 09/24/17 18:59 06:59 18:59 Intake Total 740 / 740 850 / 850 Output Total 550 / 550 150 / 150 Balance 190 / 190 700 / 700 Weight 181.4 kg Intake: IV 100 / 100 Rocephin Inj 2,000 MG In NS Inj 100 / 100 100 ML @ 200 mls/hr IV.SIG Q24H [facility] Rx#:[id number] Oral 740 / 740 750 / 750 Output: Urine 550 / 550 150 / 150 <Dash Steele - Last Filed: 09/24/17 11:29> Assessment and Plan - Assessment (1) Acute kidney injury superimposed on chronic kidney disease Code(s): N17.9 - Acute kidney failure, unspecified; N18.9 - Chronic kidney disease, unspecified Status: Acute - Plan Patient has Nephrotic Proteinuria with Anasarca. Will need Renal Biopsy but now on ASA and Plavix, will need to delay the Kidney Biopsy for now. Hemodialysis started on 09/19 Discontinue Bumex and Metolazone as patients creatinine has increased. Anasarca has improved but LISS most likely that patient is intravascularly dry. Avoid nephrotoxins including aminoglycosides and IV contrast Monitor urinary output and BMP Seen prior to hemodialysis, creatinine has increased at 2.51 and urinary output has decreased Labs in AM <Beth Bolanos - Last Filed: 09/23/17 11:31> - Assessment (1) Acute kidney injury superimposed on chronic kidney disease Code(s): N17.9 - Acute kidney failure, unspecified; N18.9 - Chronic kidney disease, unspecified Status: Acute - Attending Attestation Patient seen and examined, agree with above. Patient has increase in the Creatinine, Possible pre renal due to excessive fluid removal. HD today, remove less fluid. D//C Bumex and Metolazone, watch urine out put and BMP. HD as needed. <Dash Steele - Last Filed: 09/24/17 11:29>
[2017-09-23] MEDS: Heparin 10,000 UNITS/10 ML Vial (for IV use) OTHER PRN (13:41)
--- NOTE | 2017-09-23 14:35 | P.PNIM ---
Subjective Interval history: Patient offers no new concerns/complaints Physical Exam Vital signs: Vital Signs 09/22/17 16:00 09/22/17 17:52 09/22/17 20:00 Temperature 98.9 F 97.0 F L Pulse Rate 72 95 H Respiratory Rate 14 18 Blood Pressure 122/84 128/73 Pulse Oximetry 98 95 94 L 09/22/17 23:36 09/23/17 00:00 09/23/17 04:00 Temperature 97.4 F L 97.0 F L Pulse Rate 84 88 105 H Respiratory Rate 18 16 16 Blood Pressure 125/64 145/78 H Pulse Oximetry 93 L 98 09/23/17 08:00 Temperature 96.3 F L Pulse Rate 84 Respiratory Rate 20 Blood Pressure 140/73 Pulse Oximetry 97 Intake & Output 09/22/17 09/23/17 09/23/17 18:59 06:59 18:59 Intake Total 50 / 50 810 / 810 240 / 240 Output Total 200 / 200 275 / 275 Balance -150 / -150 535 / 535 240 / 240 Weight 172 kg Intake: IV 50 / 50 150 / 150 Flexbumin 25% Inj 50 ML @ 60 50 / 50 50 / 50 mls/hr IV.SIG Q12H [facility] Rx#: [id number] Rocephin Inj 2,000 MG In NS Inj 100 / 100 100 ML @ 200 mls/hr IV.SIG Q24H [facility] Rx#:[id number] Oral 660 / 660 240 / 240 Output: Urine 200 / 200 275 / 275 Other: Date of Last Bowel Movement 09/18/17 09/18/17 Narrative: General: NAD, AAOx3 Cardiac: regular Chest: clear x b/l Abd: +BS, soft, distended, obese, nontender Ext: Anasarca flanks/lower- improving, anasarca over posterior Right flank area no linger firm, left remains firm Results - Labs CBC & Chem 7: 10/04/17 07:22 10/06/17 07:17 Laboratory Results - last 24 hr 09/22/17 09/22/17 09/23/17 14:30 22:27 06:37 WBC 7.6 6.4 RBC 3.04 L 3.08 L Hgb 8.2 L 8.3 L Hct 24.9 L 25.1 L MCV 81.7 81.4 MCH 27.0 26.9 L MCHC 33.1 33.1 RDW 16.1 16.0 Plt Count 268 280 MPV 7.0 7.2 Prelim Diff (Auto) Slide review pending Neut % (Auto) 66.3 62.2 Lymph % (Auto) 14.1 15.9 Clay % (Auto) 14.3 H 13.9 H Eos % (Auto) 4.4 H 6.8 H Baso % (Auto) 0.9 1.2 Neut # (Auto) 5.0 4.0 Lymph # (Auto) 1.1 1.0 Clay # (Auto) 1.1 H 0.9 Eos # (Auto) 0.3 0.4 Baso # (Auto) 0.1 0.1 WBC Differential . Manual diff final Seg Neuts % (Manual) 64 Lymphocytes % (Manual) 19 Monocytes % (Manual) 9 H Eosinophils % (Manual) 6 H Metamyelocytes % (Man) 1 Myelocytes % (Man) 1 H Abs Neuts (Manual) 4.2 Differential Comment Auto diff final . Platelet Estimate Normal Platelet Morphology Normal Sodium Potassium Chloride Carbon Dioxide Anion Gap BUN Creatinine Estimated GFR POC Glucose 259 H Random Glucose Calcium Phosphorus Albumin 09/23/17 09/23/17 06:37 12:34 WBC RBC Hgb Hct MCV MCH MCHC RDW Plt Count MPV Prelim Diff (Auto) Neut % (Auto) Lymph % (Auto) Clay % (Auto) Eos % (Auto) Baso % (Auto) Neut # (Auto) Lymph # (Auto) Clay # (Auto) Eos # (Auto) Baso # (Auto) WBC Differential Seg Neuts % (Manual) Lymphocytes % (Manual) Monocytes % (Manual) Eosinophils % (Manual) Metamyelocytes % (Man) Myelocytes % (Man) Abs Neuts (Manual) Differential Comment Platelet Estimate Platelet Morphology Sodium 135 L Potassium 4.8 Chloride 93 L Carbon Dioxide 34.4 H Anion Gap 8 BUN 56 H Creatinine 3.51 H Estimated GFR 19 L POC Glucose 205 H Random Glucose 237 H Calcium 8.9 Phosphorus 6.6 H D Albumin 3.4 - Procedures Right posterior Achilles incision and drainage 08/24/[address] Della Dhillon placement by Dr. Vasquez 09/19/17 Assessment and Plan - Assessment (1) Rupture of right Achilles tendon Code(s): S86.011A - Strain of right Achilles tendon, initial encounter Status : Acute Plan: Open Achilles rupture, right - Recent admission with Achilles rupture - Pt underwent open repair of right Achilles tendon rupture with flexor hallucis longus tendon transfer and gastrocnemius recession, right lower extremity on 07/24/[address] Murillo. - Per podiatry, pt will need to be strict non-weight bearing for 6-8 weeks. - Pt was noted to have increased swelling and pain in the RLE on 08/04 - LE Doppler US (08/04) --> Is negative for DVT - Refused dc to snf and was noncompliant with weight bearing instructions. - Pt was readmitted with infection at operative site on 08/16 - He was seen by podiatry in clinic on 08/16 and sent to ED - MRI right ankle (08/16): 1. Postoperative change at the distal Achilles and calcaneus. Increased signal within the posterior calcaneus can all be consistent with postoperative change. It would be difficult to rule out osteomyelitis. 2. Fluid seen around the Achilles tendon. More superiorly in the mid lower leg, there is a larger fluid collection with peripheral enhancement. There is also a thinner fluid collection seen more superiorly in the proximal lower leg around the lateral aspect of the soleus muscle. These fluid collections could be postoperative seromas. An abscess could have a similar appearance. - nasrino and Zosyn (08/17) - Rocephin (08/17 - present) - Rocephin stop date 10/07/17 - Comgmt with ID & Podiatry - Pt had a previous outpt culture taken on 08/11 which grew out Enterobacter cloacae - Right posterior Achilles incision and drainage 08/24/[address] Hlul - Intraoperative wound Cx (08/24) --> Enterobacter cloacae - Plan to DC to SNF/rehab following hospitalization to ensure non-weight bearing of RLE and good recovery. Pt at risk for Right BKA. - The case was discussed with [facility]. Copay for SNF was defaulted. CM consulted. Pt agreeable for SNF but need to get accepting facility - Pt not ready for dc yet - Discussed dc abx with ID. orders written continue PT efforts. Volume overload Anasarca/edema Nephrotic range proteinuria - Pt was moved to ICU after Halicat and hypoxia on 08/31. Pt had received small dose of morphine a few hrs before the event. He was refusing bipap but now agreeable. Pt being followed by Dr Sawyer. - He continues with severe anasarca/lower ext edema and scrotal swelling. Also he has sleep apnea/hypoventilation and has hypoalbuminemia. - Procardia lowered to 30mg BID on 08/31, BP is stable. - Had right heart cath on last admission revealing increased right heart pressure. He has also some mild systolic dysfunction with EF 45% - comgmt with Nephrology - Pt continues to exhibit significant clinical volume overload and is NOT yet ready for discharge. - Medical team/Nephrology has been trying to diurese pt for several weeks. - Pt has been tried on IV lasix, IV bumex, and bumex gtt. Pt had good urine output, but did NOT make any significant clinical improvement. - nephrology recommending renal bx to evaluate for FSGS once patient stable. Unable to stop ASA/palvix at this time. - restrict fluids to 1.5 liters daily - IV bumex - Case d/w Nephrology, Dr. Steele (09/19/17). - VasCath (09/19/17) - Pt had first HD 09/19 with removal of 2 Liters - repeat HD 09/20/17 with removal of 1.5 liters, d/t pt c/o leg cramping - Case d/w Nephrology 09/20/17. - Repeat HD 09/21/17 with 6.5 L removed, - left leg rolanda wrapping - pt will need snf or rehab placement once accepted LISS BUN 37, creatintine 1.44, GFR 53 (09/21/17) -> BUN 57, creatinine 3.51, GFR 19 (09/23/17) patient had HD (09/23/17) with 1.[address] Steele Discontinue Bumex and Metolazone Avoid nephrotoxins including aminoglycosides and IV contrast Monitor urinary output and BMP Obesity hypoventilation syndrome Hypercapnic respiratory insufficiency Obesity hypoventilation syndrome COPD - 2-D echocardiogram 07/23/17: - The left ventricular systolic function is mildly reduced with an estimated ejection fraction in the range of 45- 50%. - Mild infero-posterior hypokinesis - Mild concentric left ventricular hypertrophy. - The left atrial size is moderately dilated. - RHC completed (07/28) --> Class 2 Pulm HTN, PCW 23 - No Right heart strain, so sildenafil was stopped - Pt is noncompliant with CPAP - Pt sedated overnight - decrease flexeril to 5mg q8h prn - decrease norco to q6h prn - encourage pt to wear CPAP at night. COPD (chronic obstructive pulmonary disease) - chronic does not appear to be in acute exacerbation - Pt requiring 2L O2 - CXR (09/22) --> venous congestion - IS - tessalon pearles prn cough - observe Diabetes - Cont OHA and SSI. basal levemir HTN (hypertension) - cont current BP meds, Cozaar 50mg q12H, Hydralazine 50mg TID, Coreg 25mg BID - May try to lower or stop Procardia. - Hydralazine PO PRN Anemia - Pts H/H has slowly been declining. No noted active GIB - During the last admission the pt was transfused with 2 units PRBCs (08/10) - During recent admission pt underwent evaluation with EGD/Colonoscopy (08/11/17 ) with Dr. Mccormick - int/ext hemorrhoids - sigmoid diverticulosis - esophagitis - gastric biopsies taken, results pending - Repeat labs on 08/21/17 with Hgb 8.3/Hct 24.6 -> 7.7/23.5 (08/24) -> 7.8/24.2, 7.6 (08/27), 8.5 (08/28), 7.7 (09/07), 7.9 (09/08) - Hg 7.9 (09/10) - Iron studies 08/08/17 Iron 26, TIBC 244, % saturation 10.7, ferritin 246 - ferritin 154 (08/27), retic 82 (08/27); b12 515, folate 7.9 (08/26) - case informally d/w Hematology - since ferritin > 100, unlikely d/t ANAHI - 2 units PRBCs (08/27/17) - Hg 7.2 (09/20/17) - transfuse 2 units PRBCs 09/20 - 09/21 Hgb 9.1, Hct 27.2 CAD (coronary artery disease) Recent history of pulmonary embolism - Patient had a PE approximately 8 months ago and was on Coumadin for until the cardiac cauterization 06/17/17 - Patient with recent cardiac catheterization with PCI 06/17/17 - After catheterization patient's Coumadin was DC'd and he was started on Aspirin and Plavix - Continue patient's Aspirin 81 mg daily, Plavix 75 mg PO daily, Atorvastatin 40 mg PO QHS and Coreg BID Anxiety and depression - Cont. Paxil 20mg daily - Attending Attestation Patient examined. Assessment and plan formulated with Sally Mathias PA-C. I agree with the above. (1) Rupture of right Achilles tendon Qualifiers: Encounter type: subsequent encounter Qualified Code(s): S86.011D - Strain of right Achilles tendon, subsequent encounter
--- NOTE | 2017-09-23 20:50 | P.PNPL ---
Subjective Interval history: 47 YOWM with Achelis tendon repair,JUDY,COPD Has huge scrotal swelling Diureasing Feels swelling decreasing Breathing nebs help Had HD today Physical Exam Vital signs: Vital Signs 09/22/17 23:36 09/23/17 00:00 09/23/17 04:00 Temperature 97.4 F L 97.0 F L Pulse Rate 84 88 105 H Respiratory Rate 18 16 16 Blood Pressure 125/64 145/78 H Pulse Oximetry 93 L 98 09/23/17 08:00 09/23/17 12:00 09/23/17 16:00 Temperature 96.3 F L 97.6 F 97.8 F Pulse Rate 84 90 98 H Respiratory Rate 16 18 22 Blood Pressure 140/73 137/90 140/74 Pulse Oximetry 95 98 97 09/23/17 20:39 Temperature Pulse Rate Respiratory Rate 14 Blood Pressure Pulse Oximetry Intake & Output 09/23/17 09/23/17 09/24/17 06:59 18:59 06:59 Intake Total 810 / 810 740 / 740 Output Total 275 / 275 550 / 550 Balance 535 / 535 190 / 190 Weight 172 kg Intake: IV 150 / 150 Flexbumin 25% Inj 50 ML @ 60 50 / 50 mls/hr IV.SIG Q12H [facility] Rx#: [id number] Rocephin Inj 2,000 MG In NS Inj 100 / 100 100 ML @ 200 mls/hr IV.SIG Q24H [facility] Rx#:[id number] Oral 660 / 660 740 / 740 Output: Urine 275 / 275 550 / 550 Other: Date of Last Bowel Movement 09/18/17 GENERAL: obese WM,NAD SKIN: Warm and dry. HEAD: Normocephalic. EYES: No scleral icterus. No injection or drainage. NECK: Supple, trachea midline. No JVD or lymphadenopathy. CARDIOVASCULAR: Regular rate and rhythm without murmurs, gallops, or rubs. RESPIRATORY: Breath sounds equal bilaterally. No accessory muscle use. GASTROINTESTINAL: Abdomen soft, non-tender, nondistended. MUSCULOSKELETAL: No cyanosis, or edema. BACK: Nontender without obvious deformity. No CVA tenderness. GENERAL: SKIN: Warm and dry. HEAD: Normocephalic. EYES: No scleral icterus. No injection or drainage. NECK: Supple, trachea midline. No JVD or lymphadenopathy. CARDIOVASCULAR: Regular rate and rhythm without murmurs, gallops, or rubs. RESPIRATORY: Breath sounds equal bilaterally. No accessory muscle use. GASTROINTESTINAL: Abdomen soft, non-tender, nondistended. MUSCULOSKELETAL: No cyanosis, or edema. BACK: Nontender without obvious deformity. No CVA tenderness. Assessment and Plan - Plan IMPRESSION: 1. Hypercapnic respiratory insufficiency. 2. Chronic obstructive pulmonary disease. 3. Obstructive sleep apnea. 4. Achilles tendon repair and leg infection. 5. Diabetes mellitus. 5. Scrotal edema. PLAN: Duonebs q 6 hrs Supplement 02 Encourage to use CPAP at night SQ Lovenox Bumex 2 mg q 8 hrs DW pt and his
[2017-09-23] MEDS: Enoxaparin Inj 40 MG/0.4 ML Syringe SQ SCH (22:54)
[2017-09-24] MEDS: Sodium Chloride 0.65% Nasal Spray 45 ML Bottle EACH NARE SCH ×2 (03:00→09:44)
[2017-09-24] MEDS: LORazepam 0.5 MG Tablet PO PRN ×4 (03:03→23:50)
[2017-09-24] MEDS: oxyCODONE/Acetaminophen 10/325 Tablet PO PRN ×5 (03:03→23:51)
[2017-09-24] MEDS: Heparin Central Flush 100 UNIT/ML 5 ML Vial IV.FLUSH PRN (06:26)
[2017-09-24] MEDS: Gabapentin 300 MG Capsule PO SCH ×3 (06:47→23:51)
[2017-09-24 07:27] LABS: Calcium 8.8 mg/dL (8.5-10.1); Carbon Dioxide 31.5 meq/L (21.0-32.0); Potassium 4.9 meq/L (3.5-5.1)
[2017-09-24] MEDS: hydrALAZINE 25 MG Tablet PO SCH ×3 (09:42→18:12)
[2017-09-24] MEDS: Benzonatate 100 MG Capsule PO PRN (09:42)
[2017-09-24] MEDS: Senna/Docusate Sodium 8.6/50 MG Tablet PO SCH ×2 (09:44→20:09)
[2017-09-24] MEDS: Carvedilol 12.5 MG Tablet PO SCH ×2 (09:44→20:09)
[2017-09-24] MEDS: Allopurinol 100 MG Tablet PO SCH (09:44)
[2017-09-24] MEDS: Glimepiride 4 MG Tablet PO SCH ×2 (09:44→17:00)
[2017-09-24] MEDS: Insulin Detemir Inj 1,000 UNIT/10 ML Vial SQ SCH ×2 (09:45→21:36)
[2017-09-24] MEDS: Insulin NovoLOG Aspart Correctional Sugar Inj SQ SCH ×4 (09:45→21:51)
[2017-09-24] MEDS: Heparin Central Flush 100 UNIT/ML 5 ML Vial IV.FLUSH SCH (09:46)
[2017-09-24] MEDS: Nystatin Liq 500,000 UNIT/5 ML UDC SWISH-SWAL SCH (09:46)
--- NOTE | 2017-09-24 11:30 | P.PNNP ---
Subjective Interval history: Patient is alert, breathing is better, not in distress. Physical Exam Vital signs: Vital Signs 09/23/17 12:00 09/23/17 16:00 09/23/17 20:00 Temperature 97.6 F 97.8 F 98.5 F Pulse Rate 90 98 H 87 Respiratory Rate 18 22 18 Blood Pressure 137/90 140/74 124/64 Pulse Oximetry 98 97 98 09/23/17 20:39 09/24/17 00:00 09/24/17 01:50 Temperature 98.3 F Pulse Rate 86 Respiratory Rate 14 18 16 Blood Pressure 126/85 Pulse Oximetry 98 09/24/17 03:52 09/24/17 04:00 09/24/17 08:00 Temperature 98.4 F 97.1 F L Pulse Rate 90 104 H Respiratory Rate 18 16 20 Blood Pressure 137/72 143/81 H Pulse Oximetry 97 96 Intake & Output 09/23/17 09/24/17 09/24/17 18:59 06:59 18:59 Intake Total 740 / 740 850 / 850 Output Total 550 / 550 150 / 150 Balance 190 / 190 700 / 700 Weight 181.4 kg Intake: IV 100 / 100 Rocephin Inj 2,000 MG In NS Inj 100 / 100 100 ML @ 200 mls/hr IV.SIG Q24H CATIE Rx#:[id number] Oral 740 / 740 750 / 750 Output: Urine 550 / 550 150 / 150 Narrative: General: NAD, AAOx3 Cardiac: regular Chest: clear x b/l Abd: +BS, soft, distended, obese, nontender Ext: Anasarca flanks/lower- improving, anasarca over posterior Right flank area no linger firm, left remains firm Assessment and Plan - Assessment (1) Acute kidney injury superimposed on chronic kidney disease Code(s): N17.9 - Acute kidney failure, unspecified; N18.9 - Chronic kidney disease, unspecified Status: Acute Plan: Acute kidney injury superimposed on chronic kidney disease Code(s): N17.9 - Acute kidney failure, unspecified; N18.9 - Chronic kidney disease, unspecified Status: Acute - Plan Patient has Nephrotic Proteinuria with Anasarca. Will need Renal Biopsy but now on ASA and Plavix, will need to delay the Kidney Biopsy for now. Hemodialysis started on 09/19 Discontinue Bumex and Metolazone as patients creatinine has increased. Anasarca has improved but LISS most likely that patient is intravascularly dry. Avoid nephrotoxins including aminoglycosides and IV contrast Monitor urinary output and BMP HD done yesterday, and 1.5 liters removed. Urine out put is slightly better. Creatinine is 3.0. Off diuretics. Watch urine out put and BMP. HD as needed. - Plan Patient has Nephrotic Proteinuria with Anasarca. Will need Renal Biopsy but now on ASA and Plavix, will need to delay the Kidney Biopsy for now. Hemodialysis started on 09/19 Discontinue Bumex and Metolazone as patients creatinine has increased. Anasarca has improved but LISS most likely that patient is intravascularly dry. Avoid nephrotoxins including aminoglycosides and IV contrast Monitor urinary output and BMP Seen prior to hemodialysis, creatinine has increased at 2.51 and urinary output has decreased Labs in AM
--- NOTE | 2017-09-24 15:01 | P.PNPL ---
Subjective Interval history: 47 YOWM with Achelis tendon repair,JUDY,COPD Has huge scrotal swelling Diureasing Feels swelling decreasing Breathing nebs help Sleeping Physical Exam Vital signs: Vital Signs 09/23/17 16:00 09/23/17 20:00 09/23/17 20:39 Temperature 97.8 F 98.5 F Pulse Rate 98 H 87 Respiratory Rate 22 18 14 Blood Pressure 140/74 124/64 Pulse Oximetry 97 98 09/24/17 00:00 09/24/17 01:50 09/24/17 03:52 Temperature 98.3 F Pulse Rate 86 Respiratory Rate 18 16 18 Blood Pressure 126/85 Pulse Oximetry 98 09/24/17 04:00 09/24/17 08:00 09/24/17 12:00 Temperature 98.4 F 97.1 F L 98.8 F Pulse Rate 90 87 100 H Respiratory Rate 16 20 20 Blood Pressure 137/72 143/81 H 142/78 H Pulse Oximetry 97 96 98 Intake & Output 09/23/17 09/24/17 09/24/17 18:59 06:59 18:59 Intake Total 740 / 740 850 / 850 Output Total 550 / 550 150 / 150 Balance 190 / 190 700 / 700 Weight 181.4 kg Intake: IV 100 / 100 Rocephin Inj 2,000 MG In NS Inj 100 / 100 100 ML @ 200 mls/hr IV.SIG Q24H CATIE Rx#:[id number] Oral 740 / 740 750 / 750 Output: Urine 550 / 550 150 / 150 GENERAL: WBWN WM,NAD SKIN: Warm and dry. HEAD: Normocephalic. EYES: No scleral icterus. No injection or drainage. NECK: Supple, trachea midline. No JVD or lymphadenopathy. CARDIOVASCULAR: Regular rate and rhythm without murmurs, gallops, or rubs. RESPIRATORY: Breath sounds equal bilaterally. No accessory muscle use. GASTROINTESTINAL: Abdomen soft, non-tender, nondistended. MUSCULOSKELETAL: No cyanosis, ++ edema. BACK: Nontender without obvious deformity. No CVA tenderness. Assessment and Plan - Plan IMPRESSION: 1. Hypercapnic respiratory insufficiency. 2. Chronic obstructive pulmonary disease. 3. Obstructive sleep apnea. 4. Achilles tendon repair and leg infection. 5. Diabetes mellitus. 5. Scrotal edema. PLAN: Duonebs q 6 hrs Supplement 02 Encourage to use CPAP at night SQ Lovenox Off diuretics
--- NOTE | 2017-09-24 16:48 | P.PNIM ---
Subjective Interval history: No new complaints. Physical Exam Vital signs: 09/24/17 08:00 09/24/17 12:00 Temperature 97.1 F L 98.8 F Pulse Rate 87 100 H Respiratory Rate 20 20 Blood Pressure 143/81 H 142/78 H Pulse Oximetry 96 98 Narrative: General: NAD, AAOx3 Cardiac: regular Chest: clear x b/l Abd: +BS, soft, distended, obese, nontender Ext: Anasarca flanks/lower- improving, anasarca over posterior Right flank area no linger firm, left remains firm Results - Labs CBC & Chem 7: 10/04/17 07:22 10/06/17 07:17 - Procedures Right posterior Achilles incision and drainage 08/24/[address] Della Dhillon placement by Dr. Vasquez 09/19/17 Assessment and Plan - Assessment (1) Rupture of right Achilles tendon Code(s): S86.011A - Strain of right Achilles tendon, initial encounter Status : Acute Plan: Open Achilles rupture, right - Recent admission with Achilles rupture - Pt underwent open repair of right Achilles tendon rupture with flexor hallucis longus tendon transfer and gastrocnemius recession, right lower extremity on 07/24/[address] Murillo. - Per podiatry, pt will need to be strict non-weight bearing for 6-8 weeks. - Pt was noted to have increased swelling and pain in the RLE on 08/04 - LE Doppler US (08/04) --> Is negative for DVT - Refused dc to snf and was noncompliant with weight bearing instructions. - Pt was readmitted with infection at operative site on 08/16 - He was seen by podiatry in clinic on 08/16 and sent to ED - MRI right ankle (08/16): 1. Postoperative change at the distal Achilles and calcaneus. Increased signal within the posterior calcaneus can all be consistent with postoperative change. It would be difficult to rule out osteomyelitis. 2. Fluid seen around the Achilles tendon. More superiorly in the mid lower leg, there is a larger fluid collection with peripheral enhancement. There is also a thinner fluid collection seen more superiorly in the proximal lower leg around the lateral aspect of the soleus muscle. These fluid collections could be postoperative seromas. An abscess could have a similar appearance. - Yasmeen (08/17) - Rocephin (08/17 - present) - Rocephin stop date 10/07/17 - Comgmt with ID & Podiatry - Pt had a previous outpt culture taken on 08/11 which grew out Enterobacter cloacae - Right posterior Achilles incision and drainage 08/24/[address] Hull - Intraoperative wound Cx (08/24) --> Enterobacter cloacae - Plan to DC to SNF/rehab following hospitalization to ensure non-weight bearing of RLE and good recovery. Pt at risk for Right BKA. - The case was discussed with [facility]. Copay for SNF was defaulted. CM consulted. Pt agreeable for SNF but need to get accepting facility - Pt not ready for dc yet - Discussed dc abx with ID. orders written continue PT efforts. Volume overload Anasarca/edema Nephrotic range proteinuria - Pt was moved to ICU after Halicat and hypoxia on 08/31. Pt had received small dose of morphine a few hrs before the event. He was refusing bipap but now agreeable. Pt being followed by Dr Sawyer. - He continues with severe anasarca/lower ext edema and scrotal swelling. Also he has sleep apnea/hypoventilation and has hypoalbuminemia. - Procardia lowered to 30mg BID on 08/31, BP is stable. - Had right heart cath on last admission revealing increased right heart pressure. He has also some mild systolic dysfunction with EF 45% - comgmt with Nephrology - Pt continues to exhibit significant clinical volume overload and is NOT yet ready for discharge. - Medical team/Nephrology has been trying to diurese pt for several weeks. - Pt has been tried on IV lasix, IV bumex, and bumex gtt. Pt had good urine output, but did NOT make any significant clinical improvement. - nephrology recommending renal bx to evaluate for FSGS once patient stable. Unable to stop ASA/palvix at this time. - restrict fluids to 1.5 liters daily - IV bumex - Case d/w Nephrology, Dr. Steele (09/19/17). - VasCath (09/19/17) - Pt had first HD 09/19, 09/20, 09/21, and 09/23 - left leg rolanda wrapping - pt will need snf or rehab placement once accepted LISS BUN 37, creatintine 1.44, GFR 53 (09/21/17) -> BUN 57, creatinine 3.51, GFR 19 (09/23/17) Cr 3.0 (09/24) Repeat BMP, Mag, phos in AM Discontinue Bumex and Metolazone Avoid nephrotoxins including aminoglycosides and IV contrast Monitor urinary output and BMP Obesity hypoventilation syndrome Hypercapnic respiratory insufficiency Obesity hypoventilation syndrome COPD - 2-D echocardiogram 07/23/17: - The left ventricular systolic function is mildly reduced with an estimated ejection fraction in the range of 45- 50%. - Mild infero-posterior hypokinesis - Mild concentric left ventricular hypertrophy. - The left atrial size is moderately dilated. - RHC completed (07/28) --> Class 2 Pulm HTN, PCW 23 - No Right heart strain, so sildenafil was stopped - Pt is noncompliant with CPAP - Pt sedated overnight - decrease flexeril to 5mg q8h prn - decrease norco to q6h prn - encourage pt to wear CPAP at night. COPD (chronic obstructive pulmonary disease) - chronic does not appear to be in acute exacerbation - Pt requiring 2L O2 - CXR (09/22) --> venous congestion - IS - tessalon pearles prn cough - observe Diabetes - Cont OHA and SSI. basal levemir HTN (hypertension) - cont current BP meds, Cozaar 50mg q12H, Hydralazine 50mg TID, Coreg 25mg BID - May try to lower or stop Procardia. - Hydralazine PO PRN Anemia - Pts H/H has slowly been declining. No noted active GIB - During the last admission the pt was transfused with 2 units PRBCs (08/10) - During recent admission pt underwent evaluation with EGD/Colonoscopy (08/11/17 ) with Dr. Mccormick - int/ext hemorrhoids - sigmoid diverticulosis - esophagitis - gastric biopsies taken, results pending - Repeat labs on 08/21/17 with Hgb 8.3/Hct 24.6 -> 7.7/23.5 (08/24) -> 7.8/24.2, 7.6 (08/27), 8.5 (08/28), 7.7 (09/07), 7.9 (09/08) - Hg 7.9 (09/10) - Iron studies 08/08/17 Iron 26, TIBC 244, % saturation 10.7, ferritin 246 - ferritin 154 (08/27), retic 82 (08/27); b12 515, folate 7.9 (08/26) - case informally d/w Hematology - since ferritin > 100, unlikely d/t ANAHI - 2 units PRBCs (08/27/17) - Hg 7.2 (09/20/17) - transfused 2 units PRBCs 09/20 - Hgb 9.1 (09/21), Hg 8.3 (09/24) CAD (coronary artery disease) Recent history of pulmonary embolism - Patient had a PE approximately 8 months ago and was on Coumadin for until the cardiac cauterization 06/17/17 - Patient with recent cardiac catheterization with PCI 06/17/17 - After catheterization patient's Coumadin was DC'd and he was started on Aspirin and Plavix - Continue patient's Aspirin 81 mg daily, Plavix 75 mg PO daily, Atorvastatin 40 mg PO QHS and Coreg BID Anxiety and depression - Cont. Paxil 20mg daily (1) Rupture of right Achilles tendon Qualifiers: Encounter type: subsequent encounter Qualified Code(s): S86.011D - Strain of right Achilles tendon, subsequent encounter
[2017-09-24] MEDS: Enoxaparin Inj 40 MG/0.4 ML Syringe SQ SCH (23:50)
[2017-09-25] MEDS: oxyCODONE/Acetaminophen 10/325 Tablet PO PRN ×4 (05:12→21:47)
[2017-09-25] MEDS: Gabapentin 300 MG Capsule PO SCH ×3 (05:13→21:10)
[2017-09-25] MEDS: LORazepam 0.5 MG Tablet PO PRN ×2 (06:32→17:19)
[2017-09-25 08:51] LABS: Calcium 8.8 mg/dL (8.5-10.1); Carbon Dioxide 32.3 meq/L (21.0-32.0); Magnesium 1.9 mg/dL (1.5-2.5); Potassium 4.8 meq/L (3.5-5.1)
[2017-09-25] MEDS: Senna/Docusate Sodium 8.6/50 MG Tablet PO SCH ×2 (08:56→21:10)
[2017-09-25] MEDS: Allopurinol 100 MG Tablet PO SCH (08:56)
[2017-09-25] MEDS: Glimepiride 4 MG Tablet PO SCH ×2 (08:56→17:04)
[2017-09-25] MEDS: Carvedilol 12.5 MG Tablet PO SCH ×2 (08:57→21:10)
[2017-09-25] MEDS: hydrALAZINE 25 MG Tablet PO SCH ×3 (08:57→17:04)
[2017-09-25] MEDS: Heparin Central Flush 100 UNIT/ML 5 ML Vial IV.FLUSH SCH (08:58)
[2017-09-25] MEDS: Insulin Detemir Inj 1,000 UNIT/10 ML Vial SQ SCH ×2 (08:58→21:48)
[2017-09-25] MEDS: Insulin NovoLOG Aspart Correctional Sugar Inj SQ SCH ×4 (11:35→21:49)
--- NOTE | 2017-09-25 14:17 | P.PNPL ---
Subjective Interval history: 47 YOWM with Achelis tendon repair,JUDY,COPD Has huge scrotal swelling Diureasing Feels swelling decreasing Breathing nebs help at BS Physical Exam Vital signs: Vital Signs 09/24/17 16:00 09/24/17 19:00 09/24/17 20:00 Temperature 98.4 F 98.3 F Pulse Rate 84 83 Respiratory Rate 20 20 Blood Pressure 150/88 H 125/72 Pulse Oximetry 97 93 L 96 09/25/17 00:00 09/25/17 04:00 09/25/17 11:32 Temperature 98.2 F 98.7 F Pulse Rate 88 92 H Respiratory Rate 20 22 22 Blood Pressure 131/74 121/72 Pulse Oximetry 97 96 09/25/17 12:06 Temperature Pulse Rate Respiratory Rate Blood Pressure Pulse Oximetry 96 Intake & Output 09/24/17 09/25/17 09/25/17 18:59 06:59 18:59 Intake Total 700 / 700 560 / 560 Output Total 550 / 550 6550 / 6550 Balance 150 / 150 -5990 / -5990 Weight 180.8 kg Intake: Oral 700 / 700 460 / 460 Anesthesia Amount 0 / 0 Other 100 / 100 Output: Urine 550 / 550 550 / 550 Stool 0 / 0 Urine/Stool Mix 0 / 0 Hemodialysis Amount 6000 / 6000 Estimated Blood Loss 0 / 0 Other: Post Void Residual 0 # Voids 3 # Incontinent Voids 0 # Urine Diapers 0 Date of Last Bowel Movement 09/24/17 09/24/17 09/24/17 # Bowel Movements 1 1 GENERAL: Obese WM, NAD SKIN: Warm and dry. HEAD: Normocephalic. EYES: No scleral icterus. No injection or drainage. NECK: Supple, trachea midline. No JVD or lymphadenopathy. CARDIOVASCULAR: Regular rate and rhythm without murmurs, gallops, or rubs. RESPIRATORY: Breath sounds equal bilaterally. No accessory muscle use. GASTROINTESTINAL: Abdomen soft, non-tender, nondistended. MUSCULOSKELETAL: No cyanosis, or edema. BACK: Nontender without obvious deformity. No CVA tenderness. Assessment and Plan - Plan IMPRESSION: 1. Hypercapnic respiratory insufficiency. 2. Chronic obstructive pulmonary disease. 3. Obstructive sleep apnea. 4. Achilles tendon repair and leg infection. 5. Diabetes mellitus. 5. Scrotal edema. PLAN: Duonebs q 6 hrs Supplement 02 Encourage to use CPAP at night SQ Lovenox Off diuretics SARTHAK pt and his
--- NOTE | 2017-09-25 15:55 | P.PNIM ---
Subjective Interval history: No new complaints. Physical Exam Vital signs: 09/25/17 00:00 09/25/17 04:00 09/25/17 08:00 Temperature 98.2 F 98.7 F 98.7 F Pulse Rate 88 92 H 96 H Respiratory Rate 20 22 22 Blood Pressure 131/74 121/72 128/72 Pulse Oximetry 97 96 96 Narrative: General: NAD, AAOx3 Cardiac: regular Chest: clear x b/l Abd: +BS, soft, distended, obese, nontender Ext: Anasarca flanks/lower- improving, anasarca over posterior Right flank area no linger firm, left remains firm Results - Labs CBC & Chem 7: 10/04/17 07:22 10/06/17 07:17 - Procedures Right posterior Achilles incision and drainage 08/24/[address] Della Dhillon placement by Dr. Vasquez 09/19/17 Assessment and Plan - Assessment (1) Rupture of right Achilles tendon Code(s): S86.011A - Strain of right Achilles tendon, initial encounter Status : Acute Plan: Open Achilles rupture, right - Recent admission with Achilles rupture - Pt underwent open repair of right Achilles tendon rupture with flexor hallucis longus tendon transfer and gastrocnemius recession, right lower extremity on 07/24/[address] Murillo. - Per podiatry, pt will need to be strict non-weight bearing for 6-8 weeks. - Pt was noted to have increased swelling and pain in the RLE on 08/04 - LE Doppler US (08/04) --> Is negative for DVT - Refused dc to snf and was noncompliant with weight bearing instructions. - Pt was readmitted with infection at operative site on 08/16 - He was seen by podiatry in clinic on 08/16 and sent to ED - MRI right ankle (08/16): 1. Postoperative change at the distal Achilles and calcaneus. Increased signal within the posterior calcaneus can all be consistent with postoperative change. It would be difficult to rule out osteomyelitis. 2. Fluid seen around the Achilles tendon. More superiorly in the mid lower leg, there is a larger fluid collection with peripheral enhancement. There is also a thinner fluid collection seen more superiorly in the proximal lower leg around the lateral aspect of the soleus muscle. These fluid collections could be postoperative seromas. An abscess could have a similar appearance. - vanco and Zosyn (08/17) - Rocephin (08/17 - present) - Rocephin stop date 10/07/17 - Comgmt with ID & Podiatry - Pt had a previous outpt culture taken on 08/11 which grew out Enterobacter cloacae - Right posterior Achilles incision and drainage 08/24/[address] Hull - Intraoperative wound Cx (08/24) --> Enterobacter cloacae - Plan to DC to SNF/rehab following hospitalization to ensure non-weight bearing of RLE and good recovery. Pt at risk for Right BKA. - The case was discussed with [facility]. Copay for SNF was defaulted. CM consulted. Pt agreeable for SNF but need to get accepting facility - Pt not ready for dc yet - Discussed dc abx with ID. orders written continue PT efforts. Volume overload Anasarca/edema Nephrotic range proteinuria - Pt was moved to ICU after Halicat and hypoxia on 08/31. Pt had received small dose of morphine a few hrs before the event. He was refusing bipap but now agreeable. Pt being followed by Dr Sawyer. - He continues with severe anasarca/lower ext edema and scrotal swelling. Also he has sleep apnea/hypoventilation and has hypoalbuminemia. - Procardia lowered to 30mg BID on 08/31, BP is stable. - Had right heart cath on last admission revealing increased right heart pressure. He has also some mild systolic dysfunction with EF 45% - comgmt with Nephrology - Pt continues to exhibit significant clinical volume overload and is NOT yet ready for discharge. - Medical team/Nephrology has been trying to diurese pt for several weeks. - Pt has been tried on IV lasix, IV bumex, and bumex gtt. Pt had good urine output, but did NOT make any significant clinical improvement. - nephrology recommending renal bx to evaluate for FSGS once patient stable. Unable to stop ASA/palvix at this time. - restrict fluids to 1.5 liters daily - IV bumex - Case d/w Nephrology, Dr. Steele (09/19/17). - VasCath (09/19/17) - Pt had first HD 09/19, 09/20, 09/21, and 09/23 - further HD per Nephrology - left leg rolanda wrapping - pt will need snf or rehab placement once accepted LISS BUN 37, creatintine 1.44, GFR 53 (09/21/17) -> BUN 57, creatinine 3.51, GFR 19 (09/23/17) Cr 3.0 (09/24), 3.55 (09/25) - Repeat BMP, Mag, phos in AM - Discontinue Bumex and Metolazone Avoid nephrotoxins including aminoglycosides and IV contrast Monitor urinary output and BMP Obesity hypoventilation syndrome Hypercapnic respiratory insufficiency Obesity hypoventilation syndrome COPD - 2-D echocardiogram 07/23/17: - The left ventricular systolic function is mildly reduced with an estimated ejection fraction in the range of 45- 50%. - Mild infero-posterior hypokinesis - Mild concentric left ventricular hypertrophy. - The left atrial size is moderately dilated. - RHC completed (07/28) --> Class 2 Pulm HTN, PCW 23 - No Right heart strain, so sildenafil was stopped - Pt is noncompliant with CPAP - Pt sedated overnight - decrease flexeril to 5mg q8h prn - decrease norco to q6h prn - encourage pt to wear CPAP at night. COPD (chronic obstructive pulmonary disease) - chronic does not appear to be in acute exacerbation - Pt requiring 2L O2 - CXR (09/22) --> venous congestion - IS - tessalon pearles prn cough - observe Diabetes - Cont OHA and SSI. basal levemir HTN (hypertension) - cont current BP meds, Cozaar 50mg q12H, Hydralazine 50mg TID, Coreg 25mg BID - May try to lower or stop Procardia. - Hydralazine PO PRN Anemia - Pts H/H has slowly been declining. No noted active GIB - During the last admission the pt was transfused with 2 units PRBCs (08/10) - During recent admission pt underwent evaluation with EGD/Colonoscopy (08/11/17 ) with Dr. Mccormick - int/ext hemorrhoids - sigmoid diverticulosis - esophagitis - gastric biopsies taken, results pending - Repeat labs on 08/21/17 with Hgb 8.3/Hct 24.6 -> 7.7/23.5 (08/24) -> 7.8/24.2, 7.6 (08/27), 8.5 (08/28), 7.7 (09/07), 7.9 (09/08) - Hg 7.9 (09/10) - Iron studies 08/08/17 Iron 26, TIBC 244, % saturation 10.7, ferritin 246 - ferritin 154 (08/27), retic 82 (08/27); b12 515, folate 7.9 (08/26) - case informally d/w Hematology - since ferritin > 100, unlikely d/t ANAIH - 2 units PRBCs (08/27/17) - Hg 7.2 (09/20/17) - transfused 2 units PRBCs 09/20 - Hgb 9.1 (09/21), Hg 8.3 (09/24) CAD (coronary artery disease) Recent history of pulmonary embolism - Patient had a PE approximately 8 months ago and was on Coumadin for until the cardiac cauterization 06/17/17 - Patient with recent cardiac catheterization with PCI 06/17/17 - After catheterization patient's Coumadin was DC'd and he was started on Aspirin and Plavix - Continue patient's Aspirin 81 mg daily, Plavix 75 mg PO daily, Atorvastatin 40 mg PO QHS and Coreg BID Anxiety and depression - Cont. Paxil 20mg daily (1) Rupture of right Achilles tendon Qualifiers: Encounter type: subsequent encounter Qualified Code(s): S86.011D - Strain of right Achilles tendon, subsequent encounter
--- NOTE | 2017-09-25 17:44 | P.PNNP ---
Subjective Interval history: Patient is sleepy, no complaint, not in distress. Physical Exam Vital signs: Vital Signs 09/24/17 19:00 09/24/17 20:00 09/25/17 00:00 Temperature 98.3 F 98.2 F Pulse Rate 83 88 Respiratory Rate 20 20 Blood Pressure 125/72 131/74 Pulse Oximetry 93 L 96 97 09/25/17 04:00 09/25/17 08:00 09/25/17 11:32 Temperature 98.7 F 98.7 F Pulse Rate 92 H 96 H Respiratory Rate 22 22 22 Blood Pressure 121/72 128/72 Pulse Oximetry 96 96 09/25/17 12:00 09/25/17 12:06 Temperature 98.8 F Pulse Rate 92 H Respiratory Rate 22 Blood Pressure 125/70 Pulse Oximetry 96 96 Intake & Output 09/24/17 09/25/17 09/25/17 18:59 06:59 18:59 Intake Total 700 / 700 560 / 560 Output Total 550 / 550 6550 / 6550 Balance 150 / 150 -5990 / -5990 Weight 180.8 kg Intake: Oral 700 / 700 460 / 460 Anesthesia Amount 0 / 0 Other 100 / 100 Output: Urine 550 / 550 550 / 550 Stool 0 / 0 Urine/Stool Mix 0 / 0 Hemodialysis Amount 6000 / 6000 Estimated Blood Loss 0 / 0 Other: Post Void Residual 0 # Voids 3 # Incontinent Voids 0 # Urine Diapers 0 Date of Last Bowel Movement 09/24/17 09/24/17 09/24/17 # Bowel Movements 1 1 Narrative: General: NAD, AAOx3 Cardiac: regular Chest: clear x b/l Abd: +BS, soft, distended, obese, nontender Ext: Anasarca flanks/lower- improving, anasarca over posterior Right flank area no linger firm, left remains firm Assessment and Plan - Assessment (1) Acute kidney injury superimposed on chronic kidney disease Code(s): N17.9 - Acute kidney failure, unspecified; N18.9 - Chronic kidney disease, unspecified Status: Acute Plan: Acute kidney injury superimposed on chronic kidney disease Code(s): N17.9 - Acute kidney failure, unspecified; N18.9 - Chronic kidney disease, unspecified Status: Acute - Plan Patient has Nephrotic Proteinuria with Anasarca. Will need Renal Biopsy but now on ASA and Plavix, will need to delay the Kidney Biopsy for now. Hemodialysis started on 09/19 Discontinue Bumex and Metolazone as patients creatinine has increased. Anasarca has improved but LISS most likely that patient is intravascularly dry. - Plan Patient has Nephrotic Proteinuria with Anasarca. Will need Renal Biopsy but now on ASA and Plavix, will need to delay the Kidney Biopsy for now. Hemodialysis started on 09/19 Discontinue Bumex and Metolazone as patients creatinine has increased. Anasarca has improved but LISS most likely that patient is intravascularly dry. Avoid nephrotoxins including aminoglycosides and IV contrast Monitor urinary output and BMP Creatinine is still increasing, now again 3.5. Urine out put is low. HD again in AM. Kidney Biospy cannot be done due to immobility and being on Plavix, with history of stent.
[2017-09-25] MEDS: Enoxaparin Inj 40 MG/0.4 ML Syringe SQ SCH (23:32)
[2017-09-26] MEDS: LORazepam 0.5 MG Tablet PO PRN ×4 (00:50→21:06)
[2017-09-26] MEDS: oxyCODONE/Acetaminophen 10/325 Tablet PO PRN ×4 (04:49→21:08)
[2017-09-26] MEDS: Benzonatate 100 MG Capsule PO PRN ×2 (04:49→16:38)
[2017-09-26] MEDS: Gabapentin 300 MG Capsule PO SCH ×3 (09:00→22:18)
[2017-09-26] MEDS: Glimepiride 4 MG Tablet PO SCH ×2 (09:02→16:37)
[2017-09-26] MEDS: hydrALAZINE 25 MG Tablet PO SCH ×3 (09:03→17:51)
[2017-09-26] MEDS: Carvedilol 12.5 MG Tablet PO SCH ×2 (09:03→21:07)
[2017-09-26] MEDS: Insulin NovoLOG Aspart Correctional Sugar Inj SQ SCH ×4 (09:03→21:09)
[2017-09-26] MEDS: Heparin Central Flush 100 UNIT/ML 5 ML Vial IV.FLUSH SCH (09:03)
[2017-09-26] MEDS: Senna/Docusate Sodium 8.6/50 MG Tablet PO SCH ×2 (09:04→21:07)
[2017-09-26] MEDS: Insulin Detemir Inj 1,000 UNIT/10 ML Vial SQ SCH ×2 (09:04→21:10)
[2017-09-26] MEDS: Allopurinol 100 MG Tablet PO SCH (09:05)
--- NOTE | 2017-09-26 09:14 | P.PNIM ---
Subjective Interval history: pt asking for muscle relaxer again. Physical Exam Vital signs: Vital Signs 09/25/17 11:32 09/25/17 12:00 09/25/17 12:06 Temperature 98.8 F Pulse Rate 92 H Respiratory Rate 22 22 Blood Pressure 125/70 Pulse Oximetry 96 96 09/25/17 16:00 09/25/17 20:00 09/25/17 22:13 Temperature 98.7 F 98.5 F Pulse Rate 90 85 Respiratory Rate 22 18 Blood Pressure 130/72 138/87 Pulse Oximetry 96 99 96 09/26/17 00:00 09/26/17 04:00 09/26/17 08:58 Temperature 98.1 F 98.6 F Pulse Rate 100 H 92 H Respiratory Rate 16 16 14 Blood Pressure 147/80 H 124/63 Pulse Oximetry 99 99 Intake & Output 09/25/17 09/26/17 09/26/17 18:59 06:59 18:59 Intake Total 560 / 560 580 / 580 Output Total 6550 / 6550 6300 / 6300 Balance -5990 / -5990 -5720 / -5720 Weight 181.4 kg Intake: IV 100 / 100 Rocephin Inj 2,000 MG In NS Inj 100 / 100 100 ML @ 200 mls/hr IV.SIG Q24H [facility] Rx#:[id number] Oral 460 / 460 480 / 480 Anesthesia Amount 0 / 0 0 / 0 Other 100 / 100 Output: Urine 550 / 550 300 / 300 Stool 0 / 0 0 / 0 Urine/Stool Mix 0 / 0 0 / 0 Hemodialysis Amount 6000 / 6000 6000 / 6000 Estimated Blood Loss 0 / 0 0 / 0 Other: Post Void Residual 0 0 # Voids 3 2 # Incontinent Voids 0 0 # Urine Diapers 0 0 Date of Last Bowel Movement 09/24/17 09/24/17 # Bowel Movements 1 1 heart reg lung cta abd s/nt ext 1-2plus edema/scrotal edema. rightlower leg bandaged. Results - Labs CBC & Chem 7: 09/23/17 06:37 09/25/17 07:40 Laboratory Results - last 24 hr 09/25/17 09/25/17 09/25/17 11:34 17:54 21:18 POC Glucose 215 H 247 H 260 H 09/26/17 08:45 POC Glucose 216 H - Procedures Right posterior Achilles incision and drainage 08/24/[address] Della Dhillon placement by Dr. Vasquez 09/19/17 Assessment and Plan - Assessment (1) Rupture of right Achilles tendon Code(s): S86.011A - Strain of right Achilles tendon, initial encounter Status : Acute Plan: Open Achilles rupture, right - Recent admission with Achilles rupture - Pt underwent open repair of right Achilles tendon rupture with flexor hallucis longus tendon transfer and gastrocnemius recession, right lower extremity on 07/24/[address] Murillo. - Per podiatry, pt will need to be strict non-weight bearing for 6-8 weeks. - Pt was noted to have increased swelling and pain in the RLE on 08/04 - LE Doppler US (08/04) --> Is negative for DVT - Refused dc to snf and was noncompliant with weight bearing instructions. - Pt was readmitted with infection at operative site on 08/16 - He was seen by podiatry in clinic on 08/16 and sent to ED - MRI right ankle (08/16): 1. Postoperative change at the distal Achilles and calcaneus. Increased signal within the posterior calcaneus can all be consistent with postoperative change. It would be difficult to rule out osteomyelitis. 2. Fluid seen around the Achilles tendon. More superiorly in the mid lower leg, there is a larger fluid collection with peripheral enhancement. There is also a thinner fluid collection seen more superiorly in the proximal lower leg around the lateral aspect of the soleus muscle. These fluid collections could be postoperative seromas. An abscess could have a similar appearance. - vanco and Zosyn (08/17) - Rocephin (08/17 - present) - Rocephin stop date 10/07/17 - Comgmt with ID & Podiatry - Pt had a previous outpt culture taken on 08/11 which grew out Enterobacter cloacae - Right posterior Achilles incision and drainage 08/24/[address] Hull - Intraoperative wound Cx (08/24) --> Enterobacter cloacae - Plan to DC to SNF/rehab following hospitalization to ensure non-weight bearing of RLE and good recovery. Pt at risk for Right BKA. - The case was discussed with [facility]. Copay for SNF was defaulted. CM consulted. Pt agreeable for SNF but need to get accepting facility - Pt not ready for dc yet - Discussed dc abx with ID. orders written continue PT efforts. ?pt says he may go home instead of snf upon dc Volume overload Anasarca/edema Nephrotic range proteinuria - Pt was moved to ICU after Halicat and hypoxia on 08/31. Pt had received small dose of morphine a few hrs before the event. He was refusing bipap but now agreeable. Pt being followed by Dr Sawyer. - He continues with severe anasarca/lower ext edema and scrotal swelling. Also he has sleep apnea/hypoventilation and has hypoalbuminemia. - Procardia lowered to 30mg BID on 08/31, BP is stable. - Had right heart cath on last admission revealing increased right heart pressure. He has also some mild systolic dysfunction with EF 45% - comgmt with Nephrology - Pt continues to exhibit significant clinical volume overload and is NOT yet ready for discharge. - Medical team/Nephrology has been trying to diurese pt for several weeks. - Pt has been tried on IV lasix, IV bumex, and bumex gtt. Pt had good urine output, but did NOT make any significant clinical improvement. - nephrology recommending renal bx to evaluate for FSGS once patient stable. Unable to stop ASA/palvix at this time. - restrict fluids to 1.5 liters daily - IV bumex - Case d/w Nephrology, Dr. Steele (09/19/17). - VasCath (09/19/17) - Pt had first HD 09/19, 09/20, 09/21, and 09/23 - further HD today per Nephrology - left leg rolanda wrapping ordered. - snf vs [facility] upon dc LISS BUN 37, creatintine 1.44, GFR 53 (09/21/17) -> BUN 57, creatinine 3.51, GFR 19 (09/23/17) Cr 3.0 (09/24), 3.55 (09/25) - Discontinued Bumex and Metolazone Avoid nephrotoxins including aminoglycosides and IV contrast Monitor urinary output and BMP Obesity hypoventilation syndrome Hypercapnic respiratory insufficiency Obesity hypoventilation syndrome COPD - 2-D echocardiogram 07/23/17: - The left ventricular systolic function is mildly reduced with an estimated ejection fraction in the range of 45- 50%. - Mild infero-posterior hypokinesis - Mild concentric left ventricular hypertrophy. - The left atrial size is moderately dilated. - RHC completed (07/28) --> Class 2 Pulm HTN, PCW 23 - No Right heart strain, so sildenafil was stopped - Pt is noncompliant with CPAP - Pt sedated overnight - decrease flexeril to 5mg q8h prn - decrease norco to q6h prn - encourage pt to wear CPAP at night. COPD (chronic obstructive pulmonary disease) - chronic does not appear to be in acute exacerbation - Pt requiring 2L O2 - CXR (09/22) --> venous congestion - IS - tessalon pearles prn cough - observe Diabetes - Cont OHA and SSI. basal levemir HTN (hypertension) - cont current BP meds, Cozaar 50mg q12H, Hydralazine 50mg TID, Coreg 25mg BID - May try to lower or stop Procardia. - Hydralazine PO PRN Anemia - Pts H/H has slowly been declining. No noted active GIB - During the last admission the pt was transfused with 2 units PRBCs (08/10) - During recent admission pt underwent evaluation with EGD/Colonoscopy (08/11/17 ) with Dr. Mccormick - int/ext hemorrhoids - sigmoid diverticulosis - esophagitis - gastric biopsies taken, results pending - Repeat labs on 08/21/17 with Hgb 8.3/Hct 24.6 -> 7.7/23.5 (08/24) -> 7.8/24.2, 7.6 (08/27), 8.5 (08/28), 7.7 (09/07), 7.9 (09/08) - Hg 7.9 (09/10) - Iron studies 08/08/17 Iron 26, TIBC 244, % saturation 10.7, ferritin 246 - ferritin 154 (08/27), retic 82 (08/27); b12 515, folate 7.9 (08/26) - case informally d/w Hematology - since ferritin > 100, unlikely d/t ANAHI - 2 units PRBCs (08/27/17) - Hg 7.2 (09/20/17) - transfused 2 units PRBCs 09/20 - Hgb 9.1 (09/21), Hg 8.3 (8/4) CAD (coronary artery disease) Recent history of pulmonary embolism - Patient had a PE approximately 8 months ago and was on Coumadin for until the cardiac cauterization 06/17/17 - Patient with recent cardiac catheterization with PCI 06/17/17 - After catheterization patient's Coumadin was DC'd and he was started on Aspirin and Plavix - Continue patient's Aspirin 81 mg daily, Plavix 75 mg PO daily, Atorvastatin 40 mg PO QHS and Coreg BID Anxiety and depression - Cont. Paxil 20mg daily (1) Rupture of right Achilles tendon Qualifiers: Encounter type: subsequent encounter Qualified Code(s): S86.011D - Strain of right Achilles tendon, subsequent encounter
--- NOTE | 2017-09-26 15:07 | P.PNNP ---
Subjective Interval history: Seen in AM during hemodialysis. Tolerating well. No shortness of breath. Dependent and lower extremity edema. <Beth Bolanos - Last Filed: 09/26/17 15:02> Physical Exam Vital signs: Vital Signs 09/25/17 16:00 09/25/17 20:00 09/25/17 22:13 Temperature 98.7 F 98.5 F Pulse Rate 90 85 Respiratory Rate 22 18 Blood Pressure 130/72 138/87 Pulse Oximetry 96 99 96 09/26/17 00:00 09/26/17 04:00 09/26/17 08:00 Temperature 98.1 F 98.6 F Pulse Rate 100 H 92 H Respiratory Rate 16 16 Blood Pressure 147/80 H 124/63 Pulse Oximetry 99 99 97 09/26/17 08:58 09/26/17 12:00 09/26/17 12:43 Temperature 98.2 F Pulse Rate 97 H Respiratory Rate 14 14 14 Blood Pressure 131/66 Pulse Oximetry 95 Intake & Output 09/25/17 09/26/17 09/26/17 18:59 06:59 18:59 Intake Total 560 / 560 580 / 580 Output Total 6550 / 6550 6300 / 6300 1000 / 1000 Balance -5990 / -5990 -5720 / -5720 -1000 / -1000 Weight 181.4 kg Intake: IV 100 / 100 Rocephin Inj 2,000 MG In NS Inj 100 / 100 100 ML @ 200 mls/hr IV.SIG Q24H [facility] Rx#:[id number] Oral 460 / 460 480 / 480 Anesthesia Amount 0 / 0 0 / 0 Other 100 / 100 Output: Urine 550 / 550 300 / 300 Stool 0 / 0 0 / 0 Urine/Stool Mix 0 / 0 0 / 0 Hemodialysis Amount 6000 / 6000 6000 / 6000 1000 / 1000 Estimated Blood Loss 0 / 0 0 / 0 Other: Post Void Residual 0 0 # Voids 3 2 # Incontinent Voids 0 0 # Urine Diapers 0 0 Date of Last Bowel Movement 09/24/17 09/24/17 09/26/17 # Bowel Movements 1 1 Narrative: GENERAL: Alert and oriented. SKIN: Warm and dry. Right IJ HEAD: Normocephalic. EYES: No scleral icterus. No injection or drainage. NECK: Supple, trachea midline. No JVD or lymphadenopathy. CARDIOVASCULAR: Regular rate and rhythm without murmurs, gallops, or rubs. RESPIRATORY: Breath sounds distant bilaterally. No accessory muscle use. GASTROINTESTINAL: Abdomen soft, non-tender, nondistended. MUSCULOSKELETAL: No cyanosis, lower extremity edema and dependent flank edema, tight. Splint/rolanda on right foort BACK: Nontender without obvious deformity. No CVA tenderness. <Beth Bolanos - Last Filed: 09/26/17 15:02> Vital signs: Vital Signs 09/27/17 00:00 09/27/17 04:00 09/27/17 08:00 Temperature 98.3 F 98.4 F 98.1 F Pulse Rate 84 100 H 98 H Respiratory Rate 14 16 12 Blood Pressure 126/71 145/82 H 149/77 H Pulse Oximetry 96 96 97 09/27/17 10:21 09/27/17 11:10 09/27/17 11:32 Temperature 96.5 F L Pulse Rate 100 H Respiratory Rate 12 12 Blood Pressure 131/66 Pulse Oximetry 95 97 09/27/17 16:00 09/27/17 16:32 Temperature 98.1 F Pulse Rate 98 H Respiratory Rate 14 Blood Pressure 132/88 Pulse Oximetry 99 97 Intake & Output 09/27/17 09/27/17 09/28/17 06:59 18:59 06:59 Intake Total 560 / 560 850 / 850 Output Total 400 / 400 350 / 350 350 / 350 Balance 160 / 160 500 / 500 -350 / -350 Weight 180 kg Intake: IV 100 / 100 Rocephin Inj 2,000 MG In NS Inj 100 / 100 100 ML @ 200 mls/hr IV.SIG Q24H [facility] Rx#:[id number] Oral 460 / 460 750 / 750 Anesthesia Amount 0 / 0 Other 100 / 100 Output: Urine 400 / 400 350 / 350 350 / 350 Stool 0 / 0 Urine/Stool Mix 0 / 0 Other: Post Void Residual 0 # Incontinent Voids 0 # Urine Diapers 0 Date of Last Bowel Movement 09/26/17 09/26/17 # Bowel Movements 1 <Dash Steele - Last Filed: 09/27/17 21:31> Assessment and Plan - Assessment (1) Acute kidney injury superimposed on chronic kidney disease Code(s): N17.9 - Acute kidney failure, unspecified; N18.9 - Chronic kidney disease, unspecified Status: Acute Plan: Has Nephrotic Proteinuria with Anasarca. Will need Renal Biopsy but now on ASA and Plavix, will need to delay the Kidney Biopsy for now. Hemodialysis started on 09/19 Discontinue Bumex and Metolazone as patients creatinine has increased. Avoid nephrotoxins including aminoglycosides and IV contrast Monitor urinary output and BMP Creatinine is still increasing, now again 3.5, urinary output at 850 ml/24 hours Seen during hemodialysis tolerated well with removal of 1 liter of fluid <Beth Bolanos - Last Filed: 09/26/17 15:02> - Assessment (1) Acute kidney injury superimposed on chronic kidney disease Code(s): N17.9 - Acute kidney failure, unspecified; N18.9 - Chronic kidney disease, unspecified Status: Acute - Attending Attestation Patient seen and examined, agree with above. Creatinine still elevated, HD done, follow the urine out put and watch for renal recovery. HD as needed. <Dash Steele - Last Filed: 09/27/17 21:31>
[2017-09-26 16:58] LABS: Calcium 8.7 mg/dL (8.5-10.1); Carbon Dioxide 30.5 meq/L (21.0-32.0); Magnesium 1.9 mg/dL (1.5-2.5); Potassium 4.5 meq/L (3.5-5.1)
--- NOTE | 2017-09-26 19:24 | P.PNPL ---
Subjective Interval history: 47 YOWM with Achelis tendon repair,JUDY,COPD Has huge scrotal swelling Diureasing Feels swelling decreasing Breathing nebs help Physical Exam Vital signs: Vital Signs 09/25/17 20:00 09/25/17 22:13 09/26/17 00:00 Temperature 98.5 F 98.1 F Pulse Rate 85 100 H Respiratory Rate 18 16 Blood Pressure 138/87 147/80 H Pulse Oximetry 99 96 99 09/26/17 04:00 09/26/17 08:00 09/26/17 08:58 Temperature 98.6 F Pulse Rate 92 H Respiratory Rate 16 14 Blood Pressure 124/63 Pulse Oximetry 99 97 09/26/17 12:00 09/26/17 12:43 09/26/17 15:54 Temperature 98.2 F Pulse Rate 97 H Respiratory Rate 14 14 14 Blood Pressure 131/66 Pulse Oximetry 95 09/26/17 16:00 Temperature 98.4 F Pulse Rate 77 Respiratory Rate 14 Blood Pressure 128/88 Pulse Oximetry 98 Intake & Output 09/26/17 09/26/17 09/27/17 06:59 18:59 06:59 Intake Total 580 / 580 450 / 450 Output Total 6300 / 6300 1500 / 1500 Balance -5720 / -5720 -1050 / -1050 Weight 181.4 kg Intake: IV 100 / 100 Rocephin Inj 2,000 MG In NS Inj 100 / 100 100 ML @ 200 mls/hr IV.SIG Q24H [facility] Rx#:[id number] Oral 480 / 480 450 / 450 Anesthesia Amount 0 / 0 Output: Urine 300 / 300 500 / 500 Stool 0 / 0 Urine/Stool Mix 0 / 0 Hemodialysis Amount 6000 / 6000 1000 / 1000 Estimated Blood Loss 0 / 0 Other: Post Void Residual 0 # Voids 2 # Incontinent Voids 0 # Urine Diapers 0 Date of Last Bowel Movement 09/24/17 09/26/17 # Bowel Movements 1 GENERAL: Obese WM NAD SKIN: Warm and dry. HEAD: Normocephalic. EYES: No scleral icterus. No injection or drainage. NECK: Supple, trachea midline. No JVD or lymphadenopathy. CARDIOVASCULAR: Regular rate and rhythm without murmurs, gallops, or rubs. RESPIRATORY: Breath sounds equal bilaterally. No accessory muscle use. GASTROINTESTINAL: Abdomen soft, non-tender, nondistended. MUSCULOSKELETAL: No cyanosis, ++ edema. Scrotal odema BACK: Nontender without obvious deformity. No CVA tenderness. Assessment and Plan - Plan IMPRESSION: 1. Hypercapnic respiratory insufficiency. 2. Chronic obstructive pulmonary disease. 3. Obstructive sleep apnea. 4. Achilles tendon repair and leg infection. 5. Diabetes mellitus. 5. Scrotal edema. PLAN: Duonebs q 6 hrs Supplement 02 Encourage to use CPAP at night SQ Lovenox Off diuretics
[2017-09-26] MEDS: Enoxaparin Inj 40 MG/0.4 ML Syringe SQ SCH (22:18)
[2017-09-27] MEDS: LORazepam 0.5 MG Tablet PO PRN ×3 (04:30→17:12)
[2017-09-27] MEDS: oxyCODONE/Acetaminophen 10/325 Tablet PO PRN ×3 (04:30→17:12)
[2017-09-27] MEDS: Gabapentin 300 MG Capsule PO SCH ×3 (05:02→21:12)
[2017-09-27 08:48] LABS: Calcium 8.8 mg/dL (8.5-10.1); Carbon Dioxide 31.1 meq/L (21.0-32.0); Potassium 4.6 meq/L (3.5-5.1)
[2017-09-27] MEDS: Insulin NovoLOG Aspart Correctional Sugar Inj SQ SCH ×4 (09:36→23:47)
[2017-09-27] MEDS: Carvedilol 12.5 MG Tablet PO SCH ×2 (09:37→21:13)
[2017-09-27] MEDS: Allopurinol 100 MG Tablet PO SCH (09:37)
[2017-09-27] MEDS: Heparin Central Flush 100 UNIT/ML 5 ML Vial IV.FLUSH SCH (09:38)
[2017-09-27] MEDS: hydrALAZINE 25 MG Tablet PO SCH ×3 (09:38→17:12)
[2017-09-27] MEDS: Senna/Docusate Sodium 8.6/50 MG Tablet PO SCH ×2 (09:38→21:12)
[2017-09-27] MEDS: Benzonatate 100 MG Capsule PO PRN (09:38)
[2017-09-27] MEDS: Glimepiride 4 MG Tablet PO SCH ×2 (09:38→17:13)
[2017-09-27] MEDS: Insulin Detemir Inj 1,000 UNIT/10 ML Vial SQ SCH ×2 (09:39→21:16)
--- NOTE | 2017-09-27 09:41 | P.PNNP ---
Subjective Interval history: No acute complaints. Reports feeling depressed today. Hemodialysis yesterday tolerated well. <Beth Bolanos - Last Filed: 09/27/17 14:09> Physical Exam Vital signs: Vital Signs 09/26/17 12:00 09/26/17 12:43 09/26/17 15:54 Temperature 98.2 F Pulse Rate 97 H Respiratory Rate 14 14 14 Blood Pressure 131/66 Pulse Oximetry 95 09/26/17 16:00 09/26/17 20:00 09/26/17 20:17 Temperature 98.4 F 98.4 F Pulse Rate 77 96 H Respiratory Rate 14 16 Blood Pressure 128/88 129/63 Pulse Oximetry 98 96 98 09/27/17 00:00 09/27/17 04:00 09/27/17 08:00 Temperature 98.3 F 98.4 F 98.1 F Pulse Rate 84 100 H 98 H Respiratory Rate 14 16 12 Blood Pressure 126/71 145/82 H 149/77 H Pulse Oximetry 96 96 97 Intake & Output 09/26/17 09/27/17 09/27/17 18:59 06:59 18:59 Intake Total 450 / 450 560 / 560 Output Total 1500 / 1500 400 / 400 Balance -1050 / -1050 160 / 160 Weight 180 kg Intake: Oral 450 / 450 460 / 460 Anesthesia Amount 0 / 0 Other 100 / 100 Output: Urine 500 / 500 400 / 400 Stool 0 / 0 Urine/Stool Mix 0 / 0 Hemodialysis Amount 1000 / 1000 Other: Post Void Residual 0 # Incontinent Voids 0 # Urine Diapers 0 Date of Last Bowel Movement 09/26/17 09/26/17 09/26/17 Narrative: GENERAL: Alert and oriented. SKIN: Warm and dry. Right IJ HEAD: Normocephalic. EYES: No scleral icterus. No injection or drainage. NECK: Supple, trachea midline. No JVD or lymphadenopathy. CARDIOVASCULAR: Regular rate and rhythm without murmurs, gallops, or rubs. RESPIRATORY: Breath sounds distant bilaterally. No accessory muscle use. GASTROINTESTINAL: Abdomen soft, non-tender, nondistended. MUSCULOSKELETAL: No cyanosis, lower extremity edema and dependent flank edema, tight. Splint/rolanda on right foot, rolanda on left leg BACK: Nontender without obvious deformity. No CVA tenderness. <Beth Bolanos - Last Filed: 09/27/17 14:09> Vital signs: Vital Signs 09/27/17 00:00 09/27/17 04:00 09/27/17 08:00 Temperature 98.3 F 98.4 F 98.1 F Pulse Rate 84 100 H 98 H Respiratory Rate 14 16 12 Blood Pressure 126/71 145/82 H 149/77 H Pulse Oximetry 96 96 97 09/27/17 10:21 09/27/17 11:10 09/27/17 11:32 Temperature 96.5 F L Pulse Rate 100 H Respiratory Rate 12 12 Blood Pressure 131/66 Pulse Oximetry 95 97 09/27/17 16:00 09/27/17 16:32 Temperature 98.1 F Pulse Rate 98 H Respiratory Rate 14 Blood Pressure 132/88 Pulse Oximetry 99 97 Intake & Output 09/27/17 09/27/17 09/28/17 06:59 18:59 06:59 Intake Total 560 / 560 850 / 850 Output Total 400 / 400 350 / 350 350 / 350 Balance 160 / 160 500 / 500 -350 / -350 Weight 180 kg Intake: IV 100 / 100 Rocephin Inj 2,000 MG In NS Inj 100 / 100 100 ML @ 200 mls/hr IV.SIG Q24H [facility] Rx#:[id number] Oral 460 / 460 750 / 750 Anesthesia Amount 0 / 0 Other 100 / 100 Output: Urine 400 / 400 350 / 350 350 / 350 Stool 0 / 0 Urine/Stool Mix 0 / 0 Other: Post Void Residual 0 # Incontinent Voids 0 # Urine Diapers 0 Date of Last Bowel Movement 09/26/17 09/26/17 # Bowel Movements 1 <Leatha Steele Q - Last Filed: 09/27/17 21:32> Assessment and Plan - Assessment (1) Acute kidney injury superimposed on chronic kidney disease Code(s): N17.9 - Acute kidney failure, unspecified; N18.9 - Chronic kidney disease, unspecified Status: Acute Plan: Has Nephrotic Proteinuria with Anasarca. Will need Renal Biopsy but now on ASA and Plavix, will need to delay the Kidney Biopsy for now. Hemodialysis started on 09/19 for anasarca. Avoid nephrotoxins including aminoglycosides and IV contrast Continue to hold Bumex and metolazone Monitor urinary output and BMP Creatinine has improved at 2.15 today. Urinary output at 900 ml/24 hours Hemodialysis yesterday tolerated well with removal of 1 liter of fluid Hemodialysis tomorrow - Plan Patient has Nephrotic Proteinuria with Anasarca. Will need Renal Biopsy but now on ASA and Plavix, will need to delay the Kidney Biopsy for now. Hemodialysis started on 09/19 Discontinue Bumex and Metolazone as patients creatinine has increased. Anasarca has improved but LISS most likely that patient is intravascularly dry. Avoid nephrotoxins including aminoglycosides and IV contrast Monitor urinary output and BMP Creatinine is still increasing, now again 3.5. Urine out put is low. HD again in AM. Kidney Biospy cannot be done due to immobility and being on Plavix, with history of stent. <Beth Bolanos - Last Filed: 09/27/17 14:09> - Assessment (1) Acute kidney injury superimposed on chronic kidney disease Code(s): N17.9 - Acute kidney failure, unspecified; N18.9 - Chronic kidney disease, unspecified Status: Acute - Attending Attestation Patient seen and examined, agree with above. Creatinine is slightly better, but has HD done yesterday. HD possibly in AM. <Dash Steele - Last Filed: 09/27/17 21:32>
--- NOTE | 2017-09-27 09:45 | P.PNIM ---
Subjective Interval history: no new complaints Physical Exam Vital signs: Vital Signs 09/26/17 12:00 09/26/17 12:43 09/26/17 15:54 Temperature 98.2 F Pulse Rate 97 H Respiratory Rate 14 14 14 Blood Pressure 131/66 Pulse Oximetry 95 09/26/17 16:00 09/26/17 20:00 09/26/17 20:17 Temperature 98.4 F 98.4 F Pulse Rate 77 96 H Respiratory Rate 14 16 Blood Pressure 128/88 129/63 Pulse Oximetry 98 96 98 09/27/17 00:00 09/27/17 04:00 09/27/17 08:00 Temperature 98.3 F 98.4 F 98.1 F Pulse Rate 84 100 H 98 H Respiratory Rate 14 16 12 Blood Pressure 126/71 145/82 H 149/77 H Pulse Oximetry 96 96 97 Intake & Output 09/26/17 09/27/17 09/27/17 18:59 06:59 18:59 Intake Total 450 / 450 560 / 560 Output Total 1500 / 1500 400 / 400 Balance -1050 / -1050 160 / 160 Weight 180 kg Intake: Oral 450 / 450 460 / 460 Anesthesia Amount 0 / 0 Other 100 / 100 Output: Urine 500 / 500 400 / 400 Stool 0 / 0 Urine/Stool Mix 0 / 0 Hemodialysis Amount 1000 / 1000 Other: Post Void Residual 0 # Incontinent Voids 0 # Urine Diapers 0 Date of Last Bowel Movement 09/26/17 09/26/17 09/26/17 heart reg lung cta abd s/nt ext lower ext/scrotal edema improving rolanda wraps lower ext's Results - Labs CBC & Chem 7: 09/23/17 06:37 09/27/17 07:05 Laboratory Results - last 24 hr 09/26/17 09/26/17 09/26/17 12:29 16:09 18:20 Sodium 135 L Potassium 4.5 Chloride 95 L Carbon Dioxide 30.5 Anion Gap 10 BUN 46 H Creatinine 2.36 H Estimated GFR 30 L POC Glucose 180 H 232 H Random Glucose 219 H Calcium 8.7 Phosphorus 4.0 D Magnesium 1.9 09/26/17 09/27/17 20:56 07:05 Sodium 134 L Potassium 4.6 Chloride 95 L Carbon Dioxide 31.1 Anion Gap 8 BUN 50 H Creatinine 2.15 H Estimated GFR 33 L POC Glucose 214 H Random Glucose 225 H Calcium 8.8 Phosphorus Magnesium - Procedures Right posterior Achilles incision and [facility] 08[facility] [facility] 09/19/17 Assessment and Plan - Assessment (1) Rupture of right Achilles tendon Code(s): S86.011A - Strain of right Achilles tendon, initial encounter Status : Acute Plan: Open Achilles rupture, right - Recent admission with Achilles rupture - Pt underwent open repair of right Achilles tendon rupture with flexor hallucis longus tendon transfer and gastrocnemius recession, right lower extremity on 07/24/[address] Murillo. - Per podiatry, pt will need to be strict non-weight bearing for 6-8 weeks. - Pt was noted to have increased swelling and pain in the RLE on 08/04 - LE Doppler US (08/04) --> Is negative for DVT - Refused dc to snf and was noncompliant with weight bearing instructions. - Pt was readmitted with infection at operative site on 08/16 - He was seen by podiatry in clinic on 08/16 and sent to ED - MRI right ankle (08/16): 1. Postoperative change at the distal Achilles and calcaneus. Increased signal within the posterior calcaneus can all be consistent with postoperative change. It would be difficult to rule out osteomyelitis. 2. Fluid seen around the Achilles tendon. More superiorly in the mid lower leg, there is a larger fluid collection with peripheral enhancement. There is also a thinner fluid collection seen more superiorly in the proximal lower leg around the lateral aspect of the soleus muscle. These fluid collections could be postoperative seromas. An abscess could have a similar appearance. - vanco and Zosyn (08/17) - Rocephin (08/17 - present) - Rocephin stop date 10/07/17 - Comgmt with ID & Podiatry - Pt had a previous outpt culture taken on 08/11 which grew out Enterobacter cloacae - Right posterior Achilles incision and drainage 08/24/[address] Hull - Intraoperative wound Cx (08/24) --> Enterobacter cloacae - Plan to DC to SNF/rehab following hospitalization to ensure non-weight bearing of RLE and good recovery. Pt at risk for Right BKA. - The case was discussed with [facility]. Copay for SNF was defaulted. CM consulted. Pt agreeable for SNF but need to get accepting facility - Pt not ready for dc yet - Discussed dc abx with ID. orders written continue PT efforts. ?pt says he may go home instead of snf upon dc Volume overload Anasarca/edema Nephrotic range proteinuria - Pt was moved to ICU after Halicat and hypoxia on 08/31. Pt had received small dose of morphine a few hrs before the event. He was refusing bipap but now agreeable. Pt being followed by Dr Sawyer. - He continues with severe anasarca/lower ext edema and scrotal swelling. Also he has sleep apnea/hypoventilation and has hypoalbuminemia. - Procardia lowered to 30mg BID on 08/31, BP is stable. - Had right heart cath on last admission revealing increased right heart pressure. He has also some mild systolic dysfunction with EF 45% - comgmt with Nephrology - Pt continues to exhibit significant clinical volume overload and is NOT yet ready for discharge. - Medical team/Nephrology has been trying to diurese pt for several weeks. - Pt has been tried on IV lasix, IV bumex, and bumex gtt. Pt had good urine output, but did NOT make any significant clinical improvement. - nephrology recommending renal bx to evaluate for FSGS once patient stable. Unable to stop ASA/palvix at this time. - restrict fluids to 1.5 liters daily - IV bumex - Case d/w Nephrology, Dr. Steele (09/19/17). - VasCath (09/19/17) - Pt had first HD 09/19, 09/20, 09/21, and 09/23, 09/26 - further HD today per Nephrology. discussed with Dr Steele. hopefully be able to stop HD before dc but outpt HD not excluded. - unable to get kidney bx until probably Nov. after 6m of asa/plavix for little in rca. - left leg rolanda wrapping ordered. LISS BUN 37, creatintine 1.44, GFR 53 (09/21/17) -> BUN 57, creatinine 3.51, GFR 19 (09/23/17) Cr 3.0 (09/24), 3.55 (09/25) - Discontinued Bumex and Metolazone Avoid nephrotoxins including aminoglycosides and IV contrast Monitor urinary output and BMP Obesity hypoventilation syndrome Hypercapnic respiratory insufficiency Obesity hypoventilation syndrome COPD - 2-D echocardiogram 07/23/17: - The left ventricular systolic function is mildly reduced with an estimated ejection fraction in the range of 45- 50%. - Mild infero-posterior hypokinesis - Mild concentric left ventricular hypertrophy. - The left atrial size is moderately dilated. - RHC completed (07/28) --> Class 2 Pulm HTN, PCW 23 - No Right heart strain, so sildenafil was stopped - Pt is noncompliant with CPAP - Pt sedated overnight - decrease flexeril to 5mg q8h prn - decrease norco to q6h prn - encourage pt to wear CPAP at night. COPD (chronic obstructive pulmonary disease) - chronic does not appear to be in acute exacerbation - Pt requiring 2L O2 - CXR (09/22) --> venous congestion - IS - tessalon pearles prn cough - observe Diabetes - Cont OHA and SSI. basal levemir HTN (hypertension) - cont current BP meds, Cozaar 50mg q12H, Hydralazine 50mg TID, Coreg 25mg BID - May try to lower or stop Procardia. - Hydralazine PO PRN Anemia - Pts H/H has slowly been declining. No noted active GIB - During the last admission the pt was transfused with 2 units PRBCs (08/10) - During recent admission pt underwent evaluation with EGD/Colonoscopy (08/11/17 ) with Dr. Mccormick - int/ext hemorrhoids - sigmoid diverticulosis - esophagitis - gastric biopsies taken, results pending - Repeat labs on 08/21/17 with Hgb 8.3/Hct 24.6 -> 7.7/23.5 (08/24) -> 7.8/24.2, 7.6 (08/27), 8.5 (08/28), 7.7 (09/07), 7.9 (09/08) - Hg 7.9 (09/10) - Iron studies 08/08/17 Iron 26, TIBC 244, % saturation 10.7, ferritin 246 - ferritin 154 (08/27), retic 82 (/); b12 515, folate 7.9 (08/26) - case informally d/w Hematology - since ferritin > 100, unlikely d/t ANAHI - 2 units PRBCs (08/27/17) - Hg 7.2 (09/20/17) - transfused 2 units PRBCs 09/20 - Hgb 9.1 (09/21), Hg 8.3 (09/24) CAD (coronary artery disease) Recent history of pulmonary embolism - Patient had a PE approximately 8 months ago and was on Coumadin for until the cardiac cauterization 06/17/17 - Patient with recent cardiac catheterization with PCI 06/17/17 - After catheterization patient's Coumadin was DC'd and he was started on Aspirin and Plavix - Continue patient's Aspirin 81 mg daily, Plavix 75 mg PO daily, Atorvastatin 40 mg PO QHS and Coreg BID Anxiety and depression - Cont. Paxil 20mg daily (1) Rupture of right Achilles tendon Qualifiers: Encounter type: subsequent encounter Qualified Code(s): S86.011D - Strain of right Achilles tendon, subsequent encounter
--- NOTE | 2017-09-27 19:12 | P.PNPL ---
Subjective Interval history: 47 YOWM with Achelis tendon repair,JUDY,COPD Has huge scrotal swelling Diureasing Feels swelling decreasing Sometimes spasms in muscles. Physical Exam Vital signs: Vital Signs 09/26/17 20:00 09/26/17 20:17 09/27/17 00:00 Temperature 98.4 F 98.3 F Pulse Rate 96 H 84 Respiratory Rate 16 14 Blood Pressure 129/63 126/71 Pulse Oximetry 96 98 96 09/27/17 04:00 09/27/17 08:00 09/27/17 10:21 Temperature 98.4 F 98.1 F Pulse Rate 100 H 98 H Respiratory Rate 16 12 Blood Pressure 145/82 H 149/77 H Pulse Oximetry 96 97 95 09/27/17 11:10 09/27/17 11:32 09/27/17 16:00 Temperature 96.5 F L 98.1 F Pulse Rate 100 H 98 H Respiratory Rate 12 12 14 Blood Pressure 131/66 132/88 Pulse Oximetry 97 99 09/27/17 16:32 Temperature Pulse Rate Respiratory Rate Blood Pressure Pulse Oximetry 97 Intake & Output 09/27/17 09/27/17 09/28/17 06:59 18:59 06:59 Intake Total 560 / 560 850 / 850 Output Total 400 / 400 350 / 350 Balance 160 / 160 500 / 500 Weight 180 kg Intake: IV 100 / 100 Rocephin Inj 2,000 MG In NS Inj 100 / 100 100 ML @ 200 mls/hr IV.SIG Q24H CATIE Rx#:[id number] Oral 460 / 460 750 / 750 Anesthesia Amount 0 / 0 Other 100 / 100 Output: Urine 400 / 400 350 / 350 Stool 0 / 0 Urine/Stool Mix 0 / 0 Other: Post Void Residual 0 # Incontinent Voids 0 # Urine Diapers 0 Date of Last Bowel Movement 09/26/17 09/26/17 # Bowel Movements 1 GENERAL: Obese WM, NAD SKIN: Warm and dry. HEAD: Normocephalic. EYES: No scleral icterus. No injection or drainage. NECK: Supple, trachea midline. No JVD or lymphadenopathy. CARDIOVASCULAR: Regular rate and rhythm without murmurs, gallops, or rubs. RESPIRATORY: Breath sounds equal bilaterally. No accessory muscle use. GASTROINTESTINAL: Abdomen soft, non-tender, nondistended. MUSCULOSKELETAL: No cyanosis, ++ oedema. BACK: Nontender without obvious deformity. No CVA tenderness. Assessment and Plan - Plan IMPRESSION: 1. Hypercapnic respiratory insufficiency. 2. Chronic obstructive pulmonary disease. 3. Obstructive sleep apnea. 4. Achilles tendon repair and leg infection. 5. Diabetes mellitus. 5. Scrotal edema. PLAN: Duonebs q 6 hrs Supplement 02 Encourage to use CPAP at night SQ Lovenox Off diuretics
[2017-09-27] MEDS: Enoxaparin Inj 40 MG/0.4 ML Syringe SQ SCH (23:47)
[2017-09-28] MEDS: LORazepam 0.5 MG Tablet PO PRN ×3 (06:43→18:37)
[2017-09-28] MEDS: oxyCODONE/Acetaminophen 10/325 Tablet PO PRN ×3 (06:43→18:38)
[2017-09-28] MEDS: Gabapentin 300 MG Capsule PO SCH ×3 (06:43→21:52)
[2017-09-28 08:03] LABS: Calcium 8.6 mg/dL (8.5-10.1); Carbon Dioxide 30.8 meq/L (21.0-32.0); Potassium 4.6 meq/L (3.5-5.1)
[2017-09-28] MEDS: hydrALAZINE 25 MG Tablet PO SCH ×3 (08:31→18:37)
[2017-09-28] MEDS: Insulin NovoLOG Aspart Correctional Sugar Inj SQ SCH ×4 (08:31→21:54)
[2017-09-28] MEDS: Carvedilol 12.5 MG Tablet PO SCH ×2 (08:31→21:52)
[2017-09-28] MEDS: Glimepiride 4 MG Tablet PO SCH ×2 (08:31→18:37)
[2017-09-28] MEDS: Senna/Docusate Sodium 8.6/50 MG Tablet PO SCH ×2 (08:32→21:51)
[2017-09-28] MEDS: Insulin Detemir Inj 1,000 UNIT/10 ML Vial SQ SCH ×2 (08:32→21:55)
[2017-09-28] MEDS: Heparin Central Flush 100 UNIT/ML 5 ML Vial IV.FLUSH SCH (08:32)
[2017-09-28] MEDS: Allopurinol 100 MG Tablet PO SCH (08:33)
--- NOTE | 2017-09-28 09:13 | P.PNIM ---
Subjective Interval history: discussed dc home options with pt and . Physical Exam Vital signs: Vital Signs 09/27/17 10:21 09/27/17 11:10 09/27/17 11:32 Temperature 96.5 F L Pulse Rate 100 H Respiratory Rate 12 12 Blood Pressure 131/66 Pulse Oximetry 95 97 09/27/17 16:00 09/27/17 16:32 09/27/17 20:00 Temperature 98.1 F 98.4 F Pulse Rate 98 H 96 H Respiratory Rate 14 20 Blood Pressure 132/88 132/69 Pulse Oximetry 99 97 94 L 09/27/17 21:58 09/28/17 00:00 09/28/17 04:00 Temperature 98.3 F 98.4 F Pulse Rate 98 H 92 H 93 H Respiratory Rate 16 20 16 Blood Pressure 143/71 H 141/70 H Pulse Oximetry 99 96 09/28/17 07:56 Temperature Pulse Rate Respiratory Rate Blood Pressure Pulse Oximetry 98 Intake & Output 09/27/17 09/28/17 09/28/17 18:59 06:59 18:59 Intake Total 850 / 850 Output Total 350 / 350 800 / 800 Balance 500 / 500 -800 / -800 Weight 181.437 kg Intake: IV 100 / 100 Rocephin Inj 2,000 MG In NS Inj 100 / 100 100 ML @ 200 mls/hr IV.SIG Q24H CATIE Rx#:[id number] Oral 750 / 750 Output: Urine 350 / 350 800 / 800 Other: Date of Last Bowel Movement 09/26/17 09/27/17 # Bowel Movements 1 heart reg lung cta abd s/nte ext anasarca/scrotal edema better lower legs wrapped. Results - Labs CBC & Chem 7: 09/23/17 06:37 09/28/17 06:50 Laboratory Results - last 24 hr 09/27/17 09/27/17 09/27/17 09:27 11:08 17:04 Sodium Potassium Chloride Carbon Dioxide Anion Gap BUN Creatinine Estimated GFR POC Glucose 247 H 228 H 207 H Random Glucose Calcium 09/27/17 09/28/17 09/28/17 21:15 06:50 08:09 Sodium 134 L Potassium 4.6 Chloride 96 L Carbon Dioxide 30.8 Anion Gap 7 BUN 53 H Creatinine 1.79 H Estimated GFR 41 L POC Glucose 226 H 210 H Random Glucose 210 H Calcium 8.6 - Procedures Right posterior Achilles incision and drainage 08/24/[address] Hull [facility] placement by Dr. Vasquez 09/19/17 Assessment and Plan - Assessment (1) Rupture of right Achilles tendon Code(s): S86.011A - Strain of right Achilles tendon, initial encounter Status : Acute Plan: Open Achilles rupture, right - Recent admission with Achilles rupture - Pt underwent open repair of right Achilles tendon rupture with flexor hallucis longus tendon transfer and gastrocnemius recession, right lower extremity on 07/24/[address] Murillo. - Per podiatry, pt will need to be strict non-weight bearing for 6-8 weeks. - Pt was noted to have increased swelling and pain in the RLE on 08/04 - LE Doppler US (08/04) --> Is negative for DVT - Refused dc to snf and was noncompliant with weight bearing instructions. - Pt was readmitted with infection at operative site on 08/16 - He was seen by podiatry in clinic on 08/16 and sent to ED - MRI right ankle (08/16): 1. Postoperative change at the distal Achilles and calcaneus. Increased signal within the posterior calcaneus can all be consistent with postoperative change. It would be difficult to rule out osteomyelitis. 2. Fluid seen around the Achilles tendon. More superiorly in the mid lower leg, there is a larger fluid collection with peripheral enhancement. There is also a thinner fluid collection seen more superiorly in the proximal lower leg around the lateral aspect of the soleus muscle. These fluid collections could be postoperative seromas. An abscess could have a similar appearance. - vanco and Zosyn (08/17) - Rocephin (08/17 - present) - Rocephin stop date 10/07/17 - Comgmt with ID & Podiatry - Pt had a previous outpt culture taken on 08/11 which grew out Enterobacter cloacae - Right posterior Achilles incision and drainage 08/24/[address] Hull - Intraoperative wound Cx (08/24) --> Enterobacter cloacae - Plan to DC to SNF/rehab following hospitalization to ensure non-weight bearing of RLE and good recovery. Pt at risk for Right BKA. - The case was discussed with [facility]. Copay for SNF was defaulted. CM consulted. Pt agreeable for SNF but need to get accepting facility - Pt not ready for dc yet - Discussed dc abx with ID. orders written continue PT efforts. ?pt says he may go home instead of snf upon dc Volume overload Anasarca/edema Nephrotic range proteinuria - Pt was moved to ICU after Halicat and hypoxia on 08/31. Pt had received small dose of morphine a few hrs before the event. He was refusing bipap but now agreeable. Pt being followed by Dr Sawyer. - He continues with severe anasarca/lower ext edema and scrotal swelling. Also he has sleep apnea/hypoventilation and has hypoalbuminemia. - Procardia lowered to 30mg BID on 08/31, BP is stable. - Had right heart cath on last admission revealing increased right heart pressure. He has also some mild systolic dysfunction with EF 45% - comgmt with Nephrology - Pt continues to exhibit significant clinical volume overload and is NOT yet ready for discharge. - Medical team/Nephrology has been trying to diurese pt for several weeks. - Pt has been tried on IV lasix, IV bumex, and bumex gtt. Pt had good urine output, but did NOT make any significant clinical improvement. - nephrology recommending renal bx to evaluate for FSGS once patient stable. Unable to stop ASA/palvix at this time. - restrict fluids to 1.5 liters daily - IV bumex - Case d/w Nephrology, Dr. Steele (09/19/17). - VasCath (09/19/17) - Pt had first HD 09/19, 09/20, 09/21, and 09/23, 09/26 - further HD today per Nephrology. discussed with Dr Steele. hopefully be able to stop HD before dc but outpt HD not excluded. - unable to get kidney bx until probably Oct. after 6m of asa/plavix for little in rca. - left leg rolanda wrapping ordered. LISS BUN 37, creatintine 1.44, GFR 53 (09/21/17) -> BUN 57, creatinine 3.51, GFR 19 (09/23/17) Cr 3.0 (09/24), 3.55 (09/25) - Discontinued Bumex and Metolazone Avoid nephrotoxins including aminoglycosides and IV contrast Monitor urinary output and BMP Obesity hypoventilation syndrome Hypercapnic respiratory insufficiency Obesity hypoventilation syndrome COPD - 2-D echocardiogram 07/23/17: - The left ventricular systolic function is mildly reduced with an estimated ejection fraction in the range of 45- 50%. - Mild infero-posterior hypokinesis - Mild concentric left ventricular hypertrophy. - The left atrial size is moderately dilated. - RHC completed (07/28) --> Class 2 Pulm HTN, PCW 23 - No Right heart strain, so sildenafil was stopped - Pt is noncompliant with CPAP - Pt sedated overnight - decrease flexeril to 5mg q8h prn - decrease norco to q6h prn - encourage pt to wear CPAP at night. COPD (chronic obstructive pulmonary disease) - chronic does not appear to be in acute exacerbation - Pt requiring 2L O2 - CXR (09/22) --> venous congestion - IS - tessalon pearles prn cough - observe Diabetes - Cont OHA and SSI. basal levemir HTN (hypertension) - cont current BP meds, Cozaar 50mg q12H, Hydralazine 50mg TID, Coreg 25mg BID - May try to lower or stop Procardia. - Hydralazine PO PRN Anemia - Pts H/H has slowly been declining. No noted active GIB - During the last admission the pt was transfused with 2 units PRBCs (08/10) - During recent admission pt underwent evaluation with EGD/Colonoscopy (08/11/17 ) with Dr. Mccormick - int/ext hemorrhoids - sigmoid diverticulosis - esophagitis - gastric biopsies taken, results pending - Repeat labs on 08/21/17 with Hgb 8.3/Hct 24.6 -> 7.7/23.5 (08/24) -> 7.8/24.2, 7.6 (08/27), 8.5 (08/28), 7.7 (09/07), 7.9 (09/08) - Hg 7.9 (09/10) - Iron studies 08/08/17 Iron 26, TIBC 244, % saturation 10.7, ferritin 246 - ferritin 154 (08/27), retic 82 (08/27); b12 515, folate 7.9 (08/26) - case informally d/w Hematology - since ferritin > 100, unlikely d/t ANAHI - 2 units PRBCs (08/27/17) - Hg 7.2 (09/20/17) - transfused 2 units PRBCs 09/20 - Hgb 9.1 (09/21), Hg 8.3 (09/24) CAD (coronary artery disease) Recent history of pulmonary embolism - Patient had a PE approximately 8 months ago and was on Coumadin for until the cardiac cauterization 06/17/17 - Patient with recent cardiac catheterization with PCI 06/17/17 - After catheterization patient's Coumadin was DC'd and he was started on Aspirin and Plavix - Continue patient's Aspirin 81 mg daily, Plavix 75 mg PO daily, Atorvastatin 40 mg PO QHS and Coreg BID Anxiety and depression - Cont. Paxil 20mg daily (1) Rupture of right Achilles tendon Qualifiers: Encounter type: subsequent encounter Qualified Code(s): S86.011D - Strain of right Achilles tendon, subsequent encounter
--- NOTE | 2017-09-28 10:17 | P.PNNP ---
Subjective Interval history: Seen during hemodialysis. Plan for UF of 3000 liters today. Does not report any complaints. Continues to have edema, has improved. <CiciBeth - Last Filed: 09/28/17 11:18> Physical Exam Vital signs: Vital Signs 09/27/17 10:21 09/27/17 11:10 09/27/17 11:32 Temperature 96.5 F L Pulse Rate 100 H Respiratory Rate 12 12 Blood Pressure 131/66 Pulse Oximetry 95 97 09/27/17 16:00 09/27/17 16:32 09/27/17 20:00 Temperature 98.1 F 98.4 F Pulse Rate 98 H 96 H Respiratory Rate 14 20 Blood Pressure 132/88 132/69 Pulse Oximetry 99 97 94 L 09/27/17 21:58 09/28/17 00:00 09/28/17 04:00 Temperature 98.3 F 98.4 F Pulse Rate 98 H 92 H 93 H Respiratory Rate 16 20 16 Blood Pressure 143/71 H 141/70 H Pulse Oximetry 99 96 09/28/17 07:56 09/28/17 08:00 Temperature 98.5 F Pulse Rate 98 H Respiratory Rate 14 Blood Pressure 150/70 H Pulse Oximetry 98 97 Intake & Output 09/27/17 09/28/17 09/28/17 18:59 06:59 18:59 Intake Total 850 / 850 Output Total 350 / 350 800 / 800 Balance 500 / 500 -800 / -800 Weight 181.437 kg Intake: IV 100 / 100 Rocephin Inj 2,000 MG In NS Inj 100 / 100 100 ML @ 200 mls/hr IV.SIG Q24H CATIE Rx#:[id number] Oral 750 / 750 Output: Urine 350 / 350 800 / 800 Other: Date of Last Bowel Movement 09/26/17 09/27/17 # Bowel Movements 1 Narrative: GENERAL: Alert and oriented. SKIN: Warm and dry. Right IJ vas cath HEAD: Normocephalic. EYES: No scleral icterus. No injection or drainage. NECK: Supple, trachea midline. No JVD or lymphadenopathy. CARDIOVASCULAR: Regular rate and rhythm without murmurs, gallops, or rubs. RESPIRATORY: Breath sounds distant bilaterally. No accessory muscle use. GASTROINTESTINAL: Abdomen soft, non-tender, nondistended. MUSCULOSKELETAL: No cyanosis, lower extremity edema and dependent flank edema, tight. Splint/rolanda on right foot, rolanda on left leg BACK: Nontender without obvious deformity. No CVA tenderness. <Beth Bolanos - Last Filed: 09/28/17 11:18> Vital signs: Vital Signs 09/27/17 21:58 09/28/17 00:00 09/28/17 04:00 Temperature 98.3 F 98.4 F Pulse Rate 98 H 92 H 93 H Respiratory Rate 16 20 16 Blood Pressure 143/71 H 141/70 H Pulse Oximetry 99 96 09/28/17 07:56 09/28/17 08:00 09/28/17 12:00 Temperature 98.5 F Pulse Rate 98 H 91 H Respiratory Rate 14 Blood Pressure 150/70 H 136/68 Pulse Oximetry 98 97 09/28/17 14:38 09/28/17 16:00 09/28/17 16:31 Temperature 98.4 F Pulse Rate 77 Respiratory Rate 14 16 Blood Pressure 128/88 Pulse Oximetry 99 97 Intake & Output 09/28/17 09/28/17 09/29/17 06:59 18:59 06:59 Intake Total 500 / 500 Output Total 800 / 800 4300 / 4300 Balance -800 / -800 -3800 / -3800 Weight 181.437 kg Intake: Oral 500 / 500 Output: Urine 800 / 800 1300 / 1300 Hemodialysis Amount 3000 / 3000 Other: Date of Last Bowel Movement 09/27/17 <Dash Steele - Last Filed: 09/28/17 21:28> Assessment and Plan - Assessment (1) Acute kidney injury superimposed on chronic kidney disease Code(s): N17.9 - Acute kidney failure, unspecified; N18.9 - Chronic kidney disease, unspecified Status: Acute Plan: Has Nephrotic Proteinuria with Anasarca. Will need Renal Biopsy but now on ASA and Plavix, will need to delay the Kidney Biopsy for now. Hemodialysis started on 09/19 for anasarca. Avoid nephrotoxins including aminoglycosides and IV contrast Monitor urinary output and BMP Creatinine continues to improve at 1.79 today, UOP improving at 1150 ml/24 hours Seen during hemodialysis tolerating well, plan to remove 3 liters. Plan to hold hemodialysis on Tuesday and will restart Bumex at 2 mg BID tomorrow Labs in AM <Beth Bolanos - Last Filed: 09/28/17 11:18> - Assessment (1) Acute kidney injury superimposed on chronic kidney disease Code(s): N17.9 - Acute kidney failure, unspecified; N18.9 - Chronic kidney disease, unspecified Status: Acute - Attending Attestation Patient seen and examined, agree with above. HD today, remove 3 liters. Creatinine is better. To start Bumex tomorrow and possibly hold HD. <Dash Steele - Last Filed: 09/28/17 21:28>
[2017-09-28] MEDS: Heparin 10,000 UNITS/10 ML Vial (for IV use) OTHER PRN (10:25)
--- NOTE | 2017-09-28 19:10 | P.PNPL ---
Subjective Interval history: 47 YOWM with Achelis tendon repair,JUDY,COPD Has huge scrotal swelling Diureasing Feels swelling decreasing Had HD, 3L fluid removed Good urine output Physical Exam Vital signs: Vital Signs 09/27/17 20:00 09/27/17 21:58 09/28/17 00:00 Temperature 98.4 F 98.3 F Pulse Rate 96 H 98 H 92 H Respiratory Rate 20 16 20 Blood Pressure 132/69 143/71 H Pulse Oximetry 94 L 99 09/28/17 04:00 09/28/17 07:56 09/28/17 08:00 Temperature 98.4 F 98.5 F Pulse Rate 93 H 98 H Respiratory Rate 16 14 Blood Pressure 141/70 H 150/70 H Pulse Oximetry 96 98 97 09/28/17 12:00 09/28/17 14:38 09/28/17 16:00 Temperature 98.4 F Pulse Rate 91 H 77 Respiratory Rate 14 16 Blood Pressure 136/68 128/88 Pulse Oximetry 99 09/28/17 16:31 Temperature Pulse Rate Respiratory Rate Blood Pressure Pulse Oximetry 97 Intake & Output 09/28/17 09/28/17 09/29/17 06:59 18:59 06:59 Intake Total 500 / 500 Output Total 800 / 800 4300 / 4300 Balance -800 / -800 -3800 / -3800 Weight 181.437 kg Intake: Oral 500 / 500 Output: Urine 800 / 800 1300 / 1300 Hemodialysis Amount 3000 / 3000 Other: Date of Last Bowel Movement 09/27/17 GENERAL: Obese WM, NAD SKIN: Warm and dry. HEAD: Normocephalic. EYES: No scleral icterus. No injection or drainage. NECK: Supple, trachea midline. No JVD or lymphadenopathy. CARDIOVASCULAR: Regular rate and rhythm without murmurs, gallops, or rubs. RESPIRATORY: Breath sounds equal bilaterally. No accessory muscle use. GASTROINTESTINAL: Abdomen soft, non-tender, nondistended. MUSCULOSKELETAL: No cyanosis, ++ edema. BACK: Nontender without obvious deformity. No CVA tenderness. Assessment and Plan - Plan IMPRESSION: 1. Hypercapnic respiratory insufficiency. 2. Chronic obstructive pulmonary disease. 3. Obstructive sleep apnea. 4. Achilles tendon repair and leg infection. 5. Diabetes mellitus. 5. Scrotal edema. PLAN: Duonebs q 6 hrs Supplement 02 Encourage to use CPAP at night SQ Lovenox DW pt and his
--- NOTE | 2017-09-28 20:45 | P.PNPOD ---
Subjective Interval history: s/p right achilles tendon repair with flexor hallucis longus tendon transfer s/p I&D right leg Physical Exam Vital signs: Vital Signs 09/27/17 21:58 09/28/17 00:00 09/28/17 04:00 Temperature 98.3 F 98.4 F Pulse Rate 98 H 92 H 93 H Respiratory Rate 16 20 16 Blood Pressure 143/71 H 141/70 H Pulse Oximetry 99 96 09/28/17 07:56 09/28/17 08:00 09/28/17 12:00 Temperature 98.5 F Pulse Rate 98 H 91 H Respiratory Rate 14 Blood Pressure 150/70 H 136/68 Pulse Oximetry 98 97 09/28/17 14:38 09/28/17 16:00 09/28/17 16:31 Temperature 98.4 F Pulse Rate 77 Respiratory Rate 14 16 Blood Pressure 128/88 Pulse Oximetry 99 97 Intake & Output 09/28/17 09/28/17 09/29/17 06:59 18:59 06:59 Intake Total 500 / 500 Output Total 800 / 800 4300 / 4300 Balance -800 / -800 -3800 / -3800 Weight 181.437 kg Intake: Oral 500 / 500 Output: Urine 800 / 800 1300 / 1300 Hemodialysis Amount 3000 / 3000 Other: Date of Last Bowel Movement 09/27/17 Narrative: Right posterior achilles area with small punctate area of serous drainage. No erythema, no edema, no sign of infection. sutures x [address] and removed. No dehiscence noted. Minimal tenderness. Medications and Allergies Active Medications: Active Medications Acetaminophen (Tylenol) 650 mg PO UNSCH PRN PRN Reason: SEE LABEL COMMENTS Al Hydroxide/Mg Hydroxide (Milk Of Tamar Smith) 30 ml PO Q12H PRN PRN Reason: MILD CONSTIPATION Albuterol (Duoneb Neb (Prn)) 1 ampul NEB Q2HR NEB PRN PRN Reason: DYSPNEA Last Admin: 09/27/17 21:57 Dose: 1 ampul Allopurinol (Zyloprim) 100 mg PO DAILY [facility] Last Admin: 09/28/17 08:33 Dose: Not Given Aspirin (Ecotrin) 81 mg PO DAILY [facility] Last Admin: 09/28/17 08:32 Dose: Not Given Atorvastatin Calcium (Lipitor) 40 mg PO HS [facility] Last Admin: 09/27/17 21:12 Dose: 40 mg Benzocaine/Menthol (Chloraseptic Sore Throat Lozenge) 1 lozenge BUCCAL Q2HR PRN PRN Reason: sore throat Benzonatate (Tessalon Perles) 200 mg PO Q8H PRN PRN Reason: COUGH Last Admin: 09/27/17 09:38 Dose: 200 mg Bisacodyl (Dulcolax Supp) 10 mg RECTAL DAILY PRN PRN Reason: SEVERE CONSTIPATION Bumetanide (Bumex Inj) 2 mg IV.PUSH BID CATIE Carvedilol (Coreg) 25 mg PO BID [facility] Last Admin: 09/28/17 08:31 Dose: Not Given Clonidine HCl (Catapres) 0.1 mg PO UNSCH PRN PRN Reason: SEE LABEL COMMENTS Clopidogrel Bisulfate (Plavix) 75 mg PO DAILY [facility] Last Admin: 09/28/17 08:32 Dose: Not Given Cyclobenzaprine HCl (Flexeril) 5 mg PO Q8H PRN PRN Reason: MUSCLE SPASM Last Admin: 09/28/17 18:37 Dose: 5 mg Dextrose (D50w Vial) 50 ml IV.PUSH UNSCH PRN PRN Reason: PER HYPOGLYCEMIA PROTOCOL Diphenhydramine HCl (Benadryl) 25 mg PO UNSCH PRN PRN Reason: SEE LABEL COMMENTS Enoxaparin Sodium (Lovenox Inj) 40 mg SQ Q24H [facility] Last Admin: 09/27/17 23:47 Dose: 40 mg Epoetin Hunter (Epogen Inj) 10,000 unit IV.PUSH UNSCH PRN PRN Reason: SEE LABEL COMMENTS Last Admin: 09/28/17 10:25 Dose: 10,000 unit Gabapentin (Neurontin) 300 mg PO Q8HR [facility] Last Admin: 09/28/17 13:47 Dose: 300 mg Gelatin (Gelfoam 12 Mm/7 Mm Topical) 1 foam TOPICAL PRN PRN PRN Reason: help stop bleeding from site Gentamicin Sulfate (Gentamicin Inj) 20 mg OTHER WITH DIALYSIS PRN PRN Reason: Dwell Gentamycin Lock Last Admin: 09/28/17 10:25 Dose: 20 mg Glimepiride (Amaryl) 4 mg PO BIDAC [facility] Last Admin: 09/28/17 18:37 Dose: 4 mg Glucagon (Glucagon Inj) 1 mg OTHER PRN PRN PRN Reason: for Hypoglycemia Protocol Heparin Sodium (Porcine) (Heparin Inj) 8,000 units OTHER WITH DIALYSIS PRN PRN Reason: for machine prime Heparin Sodium (Porcine) (Heparin Inj) 1,000 units OTHER WITH DIALYSIS PRN PRN Reason: Dwell Heparin to Fill Catheter Last Admin: 09/28/17 10:25 Dose: 1,000 units Heparin Sodium (Porcine) (Heparin Central Flush) 0 unit IV.FLUSH DAILY [facility] Last Admin: 09/28/17 08:32 Dose: Not Given Heparin Sodium (Porcine) (Heparin Central Flush) 0 unit IV.FLUSH PRN PRN PRN Reason: Flush PICC Line Last Admin: 09/24/17 06:26 Dose: 200 unit Hydralazine HCl (Apresoline) 50 mg PO TID [facility] Last Admin: 09/28/17 18:37 Dose: 50 mg Sodium Chloride (Ns Inj) 1,000 mls @ 0 mls/hr OTHER .Q0M PRN PRN Reason: for prime and rinse back Sodium Chloride (Ns Inj) 1,000 mls @ 0 mls/hr IV.CONT .Q0M PRN PRN Reason: hypotension / volume replace Sodium Chloride (Ns Inj) 1,000 mls @ 200 mls/hr OTHER .Q5H PRN PRN Reason: for dialyzer flush PRN Ceftriaxone Sodium 2,000 mg/ (Sodium Chloride) 100 mls @ 200 mls/hr IV.SIG Q24H [facility] Last Infusion: 09/28/17 06:44 Dose: 200 mls/hr Insulin Aspart (Novolog Insulin Suppl Scale Inj) 0 unit SQ ACHS [facility]; Protocol Last Admin: 09/28/17 18:37 Dose: Not Given Insulin Detemir (Levemir Inj) 25 unit SQ BID [facility] Last Admin: 09/28/17 08:32 Dose: Not Given Lactulose (Lactulose Liq) 30 ml PO DAILY PRN PRN Reason: SEVERE CONSTIPATION Lorazepam (Ativan) 0.5 mg PO Q6H PRN PRN Reason: ANXIETY Last Admin: 09/28/17 18:37 Dose: 0.5 mg Losartan Potassium (Cozaar) 50 mg PO Q12HR [facility] Last Admin: 09/28/17 08:32 Dose: Not Given Mannitol (Mannitol Inj) 12.5 gm IV.PUSH UNSCH PRN PRN Reason: hypotension / volume replace Metoprolol Tartrate (Lopressor Inj) 5 mg IV.PUSH Q6H PRN PRN Reason: Sbp>170, Dbp>90 Naloxone HCl (Narcan Inj) 0.4 mg IV.PUSH UNSCH PRN PRN Reason: SEE LABEL COMMENTS Nifedipine (Procardia Xl) 30 mg PO BID [facility] Last Admin: 09/28/17 08:32 Dose: Not Given Nitroglycerin (Nitrostat Sl) 0.4 mg SL Q5M PRN PRN Reason: CHEST PAIN Ondansetron HCl (Zofran Inj) 4 mg IV.PUSH UNSCH PRN PRN Reason: NAUSEA OR VOMITING Ondansetron HCl (Zofran Inj) 4 mg IV.PUSH Q6H PRN PRN Reason: NAUSEA OR VOMITING Last Admin: 09/24/17 09:58 Dose: 4 mg Oxycodone/Acetaminophen (Percocet 10/325 Mg) 1 tab PO Q6H PRN PRN Reason: pain 3-10 Last Admin: 09/28/17 18:38 Dose: 1 tab Pantoprazole Sodium (Protonix) 40 mg PO DAILY [facility] Last Admin: 09/28/17 08:33 Dose: Not Given Paroxetine HCl (Paxil) 20 mg PO DAILY [facility] Last Admin: 09/28/17 08:32 Dose: Not Given Senna/Docusate Sodium (Ely-Colace) 1 tab PO BID [facility] Last Admin: 09/28/17 08:32 Dose: Not Given Sennosides (Senokot) 17.2 mg PO Q12H PRN PRN Reason: MODERATE CONSTIPATION Sodium Chloride (Ns Flush) 5 ml IV.FLUSH PRN PRN PRN Reason: flush each lumen during HD Sodium Chloride (Ns Flush) 2 ml IV.FLUSH UNSCH PRN PRN Reason: FLUSH AFTER USING IV ACCESS Last Admin: 09/03/17 08:58 Dose: 2 ml Sodium Chloride (Ns Flush) 2 ml IV.FLUSH BID [facility] Last Admin: 09/28/17 08:32 Dose: Not Given Sodium Chloride (Ns Flush) 0 ml IV.FLUSH DAILY [facility] Last Admin: 09/28/17 08:32 Dose: Not Given Sodium Chloride (Ns Flush) 0 ml IV.FLUSH PRN PRN PRN Reason: FLUSH AFTER USING IV ACCESS Sodium Chloride (Ns Flush) 0 ml IV.FLUSH PRN PRN PRN Reason: Flush After Blood Draws Temazepam (Restoril) 15 mg PO HS PRN PRN Reason: INSOMNIA Last Admin: 08/29/17 21:47 Dose: 15 mg Throat Lozenges (Chloraseptic Jackson) 2 spray OROPHARYNG Q2H PRN PRN Reason: sore throat Allergies Allergy/AdvReac Type Severity Reaction Status Date / Time codeine Allergy Severe Itching Verified 08/16/17 19:14 quetiapine Allergy Intermediate Hallucinati Verified 08/16/17 19:14 ons tramadol Allergy Unknown UNKNOWN Verified 08/20/17 10:36 clonidine AdvReac Severe ARNDT, dry Verified 08/20/17 10:36 mouth, "felt drunk" lisinopril AdvReac Unknown abnormal Verified 08/16/17 19:14 labs K level Home Medications Medication Instructions Recorded Confirmed Type allopurinol 100 mg PO DAILY 08/20/17 08/20/17 History aspirin 81 mg PO DAILY 08/20/17 08/20/17 History atorvastatin 40 mg PO HS 08/20/17 08/20/17 History carvedilol 25 mg PO BID 08/20/17 08/20/17 History clindamycin HCl 300 mg PO Q6H 08/20/17 08/20/17 History clopidogrel 75 mg PO DAILY 08/20/17 08/20/17 History furosemide 40 mg PO DAILY 08/20/17 08/20/17 History gabapentin 300 mg PO Q8H 08/20/17 08/20/17 History glimepiride 2 mg PO BIDAC 08/20/17 08/20/17 History hydralazine 50 mg PO TID 08/20/17 08/20/17 History hydrocodone-acetaminophen 1 tab PO Q4H PRN 08/20/17 08/20/17 History insulin aspart U-100 [Novolog 1 sliding scale dose SUB-Q 08/20/17 08/20/17 History U-100 Insulin aspart] DIRECTED losartan 50 mg PO Q12H 08/20/17 08/20/17 History metformin 750 mg PO BID 08/20/17 08/20/17 History nifedipine 60 mg PO Q12H 08/20/17 08/20/17 History nystatin 5 ml PO QID 08/20/17 08/20/17 History pantoprazole 40 mg PO DAILY 08/20/17 08/20/17 History paroxetine HCl 20 mg PO DAILY 08/20/17 08/20/17 History Results - Labs CBC & Chem 7: 09/23/17 06:37 09/29/17 11:48 Laboratory Results - last 24 hr 09/27/17 09/28/17 09/28/17 21:15 06:50 08:09 Sodium 134 L Potassium 4.6 Chloride 96 L Carbon Dioxide 30.8 Anion Gap 7 BUN 53 H Creatinine 1.79 H Estimated GFR 41 L POC Glucose 226 H 210 H Random Glucose 210 H Calcium 8.6 09/28/17 09/28/17 10:59 17:47 Sodium Potassium Chloride Carbon Dioxide Anion Gap BUN Creatinine Estimated GFR POC Glucose 129 H 275 H Random Glucose Calcium Microbiology 08/24/17 15:00 Tissue - Ankle Acid Fast Bacilli Smear - Final No acid fast bacilli seen 08/24/17 15:00 Tissue - Ankle Mycobacterial Culture - Final - Procedures Right posterior Achilles incision and drainage 08/24/[address] Della Dhillon placement by Dr. Vasquez 09/19/17 Assessment and Plan - Assessment (1) Abscess of right lower leg Code(s): L02.415 - Cutaneous abscess of right lower limb Status: Acute (2) Rupture of right Achilles tendon Code(s): S86.011A - Strain of right Achilles tendon, initial encounter Status : Acute - Plan Changed dressing Right lower extremity and removed sutures. Continue every 3 day betadine swab and bordered gauze per nursing Ok to apply a water-proof bandage to the area posterior heel and allow patient to shower, followed by immediate dressing change per nursing as ordered. Ok to begin weightbearing as tolerated right lower extremity in his CAM boot. Ok to remove cam boot when at rest. May need walker for assistance, per PT recommendations. Please call service with any questions. (2) Rupture of right Achilles tendon Qualifiers: Encounter type: subsequent encounter Qualified Code(s): S86.011D - Strain of right Achilles tendon, subsequent encounter
[2017-09-28] MEDS: Enoxaparin Inj 40 MG/0.4 ML Syringe SQ SCH (22:05)
[2017-09-29] MEDS: LORazepam 0.5 MG Tablet PO PRN ×4 (01:00→23:43)
[2017-09-29] MEDS: oxyCODONE/Acetaminophen 10/325 Tablet PO PRN ×4 (01:01→23:44)
[2017-09-29] MEDS: Gabapentin 300 MG Capsule PO SCH ×3 (06:36→21:06)
[2017-09-29] MEDS: Benzonatate 100 MG Capsule PO PRN (08:47)
[2017-09-29] MEDS: Allopurinol 100 MG Tablet PO SCH (08:48)
[2017-09-29] MEDS: Senna/Docusate Sodium 8.6/50 MG Tablet PO SCH ×2 (08:48→20:20)
[2017-09-29] MEDS: Carvedilol 12.5 MG Tablet PO SCH ×2 (08:48→20:20)
[2017-09-29] MEDS: Heparin Central Flush 100 UNIT/ML 5 ML Vial IV.FLUSH SCH (08:49)
[2017-09-29] MEDS: hydrALAZINE 25 MG Tablet PO SCH ×3 (08:49→18:21)
[2017-09-29] MEDS: Glimepiride 4 MG Tablet PO SCH ×2 (08:49→16:40)
[2017-09-29] MEDS: Insulin NovoLOG Aspart Correctional Sugar Inj SQ SCH ×4 (09:49→20:27)
--- NOTE | 2017-09-29 09:56 | P.PNIM ---
Subjective Interval history: pt doing ok. eager to know the dc plan Physical Exam Vital signs: Vital Signs 09/28/17 12:00 09/28/17 14:38 09/28/17 16:00 Temperature 98.4 F Pulse Rate 91 H 77 Respiratory Rate 14 16 Blood Pressure 136/68 128/88 Pulse Oximetry 99 09/28/17 16:31 09/28/17 20:00 09/29/17 00:00 Temperature 97.4 F L 97.2 F L Pulse Rate 96 H 88 Respiratory Rate 18 18 Blood Pressure 145/75 H 129/60 Pulse Oximetry 97 98 99 09/29/17 03:00 09/29/17 04:00 09/29/17 08:39 Temperature 98.2 F Pulse Rate 78 Respiratory Rate 18 18 Blood Pressure 132/62 Pulse Oximetry 98 95 09/29/17 08:46 09/29/17 09:50 Temperature Pulse Rate Respiratory Rate 16 14 Blood Pressure Pulse Oximetry Intake & Output 09/28/17 09/29/17 09/29/17 18:59 06:59 18:59 Intake Total 500 / 500 1360 / 1360 Output Total 4300 / 4300 1000 / 1000 Balance -3800 / -3800 360 / 360 Weight 181.4 kg Intake: Oral 500 / 500 1360 / 1360 Output: Urine 1300 / 1300 1000 / 1000 Hemodialysis Amount 3000 / 3000 Other: Date of Last Bowel Movement 09/27/17 09/27/17 heart reg lung cta abd s/nt ext anasarca/scrotal swelling stable lower ext wraps. Results - Labs CBC & Chem 7: 09/23/17 06:37 09/28/17 06:50 Laboratory Results - last 24 hr 09/28/17 09/28/17 09/28/17 10:59 17:47 21:07 POC Glucose 129 H 275 H 234 H 09/29/17 09:19 POC Glucose 269 H Microbiology 08/24/17 15:00 Tissue - Ankle Acid Fast Bacilli Smear - Final No acid fast bacilli seen 08/24/17 15:00 Tissue - Ankle Mycobacterial Culture - Final - Procedures Right posterior Achilles incision and drainage 08/24/[address] Della Dhillon placement by Dr. Vasquez 09/19/17 Assessment and Plan - Assessment (1) Rupture of right Achilles tendon Code(s): S86.011A - Strain of right Achilles tendon, initial encounter Status : Acute Plan: Open Achilles rupture, right - Recent admission with Achilles rupture - Pt underwent open repair of right Achilles tendon rupture with flexor hallucis longus tendon transfer and gastrocnemius recession, right lower extremity on 07/24/[address] Murillo. - Per podiatry, pt will need to be strict non-weight bearing for 6-8 weeks. - Pt was noted to have increased swelling and pain in the RLE on 08/04 - LE Doppler US (08/04) --> Is negative for DVT - Refused dc to snf and was noncompliant with weight bearing instructions. - Pt was readmitted with infection at operative site on 08/16 - He was seen by podiatry in clinic on 08/16 and sent to ED - MRI right ankle (08/16): 1. Postoperative change at the distal Achilles and calcaneus. Increased signal within the posterior calcaneus can all be consistent with postoperative change. It would be difficult to rule out osteomyelitis. 2. Fluid seen around the Achilles tendon. More superiorly in the mid lower leg, there is a larger fluid collection with peripheral enhancement. There is also a thinner fluid collection seen more superiorly in the proximal lower leg around the lateral aspect of the soleus muscle. These fluid collections could be postoperative seromas. An abscess could have a similar appearance. - debra and Gen (08/17) - Rocephin (08/17 - present) - Rocephin stop date 10/07/17 - Comgmt with ID & Podiatry - Pt had a previous outpt culture taken on 08/11 which grew out Enterobacter cloacae - Right posterior Achilles incision and drainage 08/24/[address] Hull - Intraoperative wound Cx (08/24) --> Enterobacter cloacae - Plan to DC to SNF/rehab following hospitalization to ensure non-weight bearing of RLE and good recovery. Pt at risk for Right BKA. - The case was discussed with [facility]. Copay for SNF was defaulted. CM consulted. Pt agreeable for SNF but need to get accepting facility - Pt not ready for dc yet - Discussed dc abx with ID. orders written continue PT efforts. weight bear instruction per podiatry. ?pt says he may go home instead of snf upon dc Volume overload Anasarca/edema Nephrotic range proteinuria - Pt was moved to ICU after Halicat and hypoxia on 08/31. Pt had received small dose of morphine a few hrs before the event. He was refusing bipap but now agreeable. Pt being followed by Dr Sawyer. - He continues with severe anasarca/lower ext edema and scrotal swelling. Also he has sleep apnea/hypoventilation and has hypoalbuminemia. - Procardia lowered to 30mg BID on 08/31, BP is stable. - Had right heart cath on last admission revealing increased right heart pressure. He has also some mild systolic dysfunction with EF 45% - comgmt with Nephrology - Pt continues to exhibit significant clinical volume overload and is NOT yet ready for discharge. - Medical team/Nephrology has been trying to diurese pt for several weeks. - Pt has been tried on IV lasix, IV bumex, and bumex gtt. Pt had good urine output, but did NOT make any significant clinical improvement. - nephrology recommending renal bx to evaluate for FSGS once patient stable. Unable to stop ASA/palvix at this time. - restrict fluids to 1.5 liters daily - IV bumex resumed today per renal - - VasCath (09/19/17) - Pt had first HD 09/19, 09/20, 09/21, and 09/23, 09/26 - further HD today per Nephrology. discussed with Dr Steele. hopefully be able to stop HD before dc but outpt HD not excluded. - unable to get kidney bx until probably Oct. after 6m of asa/plavix for little in rca. - left leg rolanda wrapping ordered. LISS BUN 37, creatintine 1.44, GFR 53 (09/21/17) -> BUN 57, creatinine 3.51, GFR 19 (09/23/17) Cr 3.0 (09/24), 3.55 (09/25) - Discontinued Bumex and Metolazone Avoid nephrotoxins including aminoglycosides and IV contrast Monitor urinary output and BMP renal function improved. cr 1.7....see above Obesity hypoventilation syndrome Hypercapnic respiratory insufficiency Obesity hypoventilation syndrome COPD - 2-D echocardiogram 07/23/17: - The left ventricular systolic function is mildly reduced with an estimated ejection fraction in the range of 45- 50%. - Mild infero-posterior hypokinesis - Mild concentric left ventricular hypertrophy. - The left atrial size is moderately dilated. - RHC completed (07/28) --> Class 2 Pulm HTN, PCW 23 - No Right heart strain, so sildenafil was stopped - Pt is noncompliant with CPAP - Pt sedated overnight - decrease flexeril to 5mg q8h prn - decrease norco to q6h prn - encourage pt to wear CPAP at night. COPD (chronic obstructive pulmonary disease) - chronic does not appear to be in acute exacerbation - Pt requiring 2L O2 - CXR (09/22) --> venous congestion - IS - tessalon pearles prn cough - observe Diabetes - Cont OHA and SSI. basal levemir HTN (hypertension) - cont current BP meds, Cozaar 50mg q12H, Hydralazine 50mg TID, Coreg 25mg BID - May try to lower or stop Procardia. - Hydralazine PO PRN Anemia - Pts H/H has slowly been declining. No noted active GIB - During the last admission the pt was transfused with 2 units PRBCs (08/10) - During recent admission pt underwent evaluation with EGD/Colonoscopy (08/11/17 ) with Dr. Mccormick - int/ext hemorrhoids - sigmoid diverticulosis - esophagitis - gastric biopsies taken, results pending - Repeat labs on 08/21/17 with Hgb 8.3/Hct 24.6 -> 7.7/23.5 (08/24) -> 7.8/24.2, 7.6 (08/27), 8.5 (08/28), 7.7 (09/07), 7.9 (09/08) - Hg 7.9 (09/10) - Iron studies 08/08/17 Iron 26, TIBC 244, % saturation 10.7, ferritin 246 - ferritin 154 (08/27), retic 82 (08/27); b12 515, folate 7.9 (08/26) - case informally d/w Hematology - since ferritin > 100, unlikely d/t ANAHI - 2 units PRBCs (08/27/17) - Hg 7.2 (09/20/17) - transfused 2 units PRBCs 09/20 - Hgb 9.1 (09/21), Hg 8.3 (09/24) CAD (coronary artery disease) Recent history of pulmonary embolism - Patient had a PE approximately 8 months ago and was on Coumadin for until the cardiac cauterization 06/17/17 - Patient with recent cardiac catheterization with PCI 06/17/17 - After catheterization patient's Coumadin was DC'd and he was started on Aspirin and Plavix - Continue patient's Aspirin 81 mg daily, Plavix 75 mg PO daily, Atorvastatin 40 mg PO QHS and Coreg BID Anxiety and depression - Cont. Paxil 20mg daily (1) Rupture of right Achilles tendon Qualifiers: Encounter type: subsequent encounter Qualified Code(s): S86.011D - Strain of right Achilles tendon, subsequent encounter
--- NOTE | 2017-09-29 10:35 | P.PNNP ---
Subjective Interval history: Resting comfortably. Denies any shortness of breath. Dependent edema. Last hemodialysis yesterday. <Beth Bolanos - Last Filed: 09/29/17 15:07> Physical Exam Vital signs: Vital Signs 09/28/17 12:00 09/28/17 14:38 09/28/17 16:00 Temperature 98.4 F Pulse Rate 91 H 77 Respiratory Rate 14 16 Blood Pressure 136/68 128/88 Pulse Oximetry 99 09/28/17 16:31 09/28/17 20:00 09/29/17 00:00 Temperature 97.4 F L 97.2 F L Pulse Rate 96 H 88 Respiratory Rate 18 18 Blood Pressure 145/75 H 129/60 Pulse Oximetry 97 98 99 09/29/17 03:00 09/29/17 04:00 09/29/17 08:39 Temperature 98.2 F Pulse Rate 78 Respiratory Rate 18 18 Blood Pressure 132/62 Pulse Oximetry 98 95 09/29/17 08:46 09/29/17 09:50 Temperature Pulse Rate Respiratory Rate 16 14 Blood Pressure Pulse Oximetry Intake & Output 09/28/17 09/29/17 09/29/17 18:59 06:59 18:59 Intake Total 500 / 500 1360 / 1360 Output Total 4300 / 4300 1000 / 1000 Balance -3800 / -3800 360 / 360 Weight 181.4 kg Intake: Oral 500 / 500 1360 / 1360 Output: Urine 1300 / 1300 1000 / 1000 Hemodialysis Amount 3000 / 3000 Other: Date of Last Bowel Movement 09/27/17 09/27/17 Narrative: GENERAL: Alert and oriented. SKIN: Warm and dry. Right IJ vas cath HEAD: Normocephalic. EYES: No scleral icterus. No injection or drainage. NECK: Supple, trachea midline. No JVD or lymphadenopathy. CARDIOVASCULAR: Regular rate and rhythm without murmurs, gallops, or rubs. RESPIRATORY: Breath sounds distant bilaterally. No accessory muscle use. GASTROINTESTINAL: Abdomen soft, non-tender, nondistended. MUSCULOSKELETAL: No cyanosis, lower extremity edema and dependent flank edema, tight. Splint/rolanda on right foot, rolanda on left leg BACK: Nontender without obvious deformity. No CVA tenderness. <Beth Bolanos - Last Filed: 09/29/17 15:07> Vital signs: Vital Signs 09/29/17 00:00 09/29/17 03:00 09/29/17 04:00 Temperature 97.2 F L 98.2 F Pulse Rate 88 78 Respiratory Rate 18 Blood Pressure 129/60 132/62 Pulse Oximetry 99 98 09/29/17 08:00 09/29/17 08:39 09/29/17 08:46 Temperature 97.6 F Pulse Rate 85 Respiratory Rate 12 16 Blood Pressure 127/88 Pulse Oximetry 97 95 09/29/17 09:50 09/29/17 11:58 09/29/17 12:00 Temperature 98 F Pulse Rate 92 H Respiratory Rate 14 14 14 Blood Pressure 124/80 Pulse Oximetry 96 09/29/17 16:00 09/29/17 16:30 09/29/17 18:22 Temperature 97.9 F Pulse Rate 85 Respiratory Rate 14 14 Blood Pressure 146/73 H Pulse Oximetry 97 96 09/29/17 20:00 Temperature 97.9 F Pulse Rate 88 Respiratory Rate 20 Blood Pressure 139/76 Pulse Oximetry 97 Intake & Output 09/29/17 09/29/17 09/30/17 06:59 18:59 06:59 Intake Total 1360 / 1360 400 / 400 Output Total 1000 / 1000 900 / 900 Balance 360 / 360 -500 / -500 Weight 181.4 kg Intake: IV 100 / 100 Rocephin Inj 2,000 MG In NS Inj 100 / 100 100 ML @ 200 mls/hr IV.SIG Q24H [facility] Rx#:[id number] Oral 1360 / 1360 300 / 300 Output: Urine 1000 / 1000 900 / 900 Other: Date of Last Bowel Movement 09/27/17 09/27/17 09/28/17 <Dash Steele - Last Filed: 09/29/17 23:44> Assessment and Plan - Assessment (1) Acute kidney injury superimposed on chronic kidney disease Code(s): N17.9 - Acute kidney failure, unspecified; N18.9 - Chronic kidney disease, unspecified Status: Acute Plan: Has Nephrotic Proteinuria with Anasarca. Will need Renal Biopsy but now on ASA and Plavix, will need to delay the Kidney Biopsy for now. Hemodialysis started on 09/19 for anasarca. Avoid nephrotoxins including aminoglycosides and IV contrast Monitor urinary output and BMP Creatinine continues to improve at 1.35 today Hemodialysis yesterday with removal of 3 liters of fluid Hold hemodialysis on Tuesday Continue Bumex at 2 mg BID Labs in AM <Beth Bolanos - Last Filed: 09/29/17 15:07> - Assessment (1) Acute kidney injury superimposed on chronic kidney disease Code(s): N17.9 - Acute kidney failure, unspecified; N18.9 - Chronic kidney disease, unspecified Status: Acute - Attending Attestation Patient seen and examined, agree with above. Creatinine is better, started on Bumex, Hold HD for now. Follow the urine out put and BMP. <Dash Steele - Last Filed: 09/29/17 23:44>
[2017-09-29 12:24] LABS: Calcium 8.8 mg/dL (8.5-10.1); Carbon Dioxide 31.4 meq/L (21.0-32.0); Potassium 4.5 meq/L (3.5-5.1)
[2017-09-29 12:26] LABS: Phosphorus 3.4 mg/dL (2.5-4.9)
--- NOTE | 2017-09-29 17:14 | P.PNPL ---
Subjective Interval history: 47 YOWM with Achelis tendon repair,JUDY,COPD Has huge scrotal swelling Diureasing Feels swelling decreasing Physical Exam Vital signs: Vital Signs 09/28/17 20:00 09/29/17 00:00 09/29/17 03:00 Temperature 97.4 F L 97.2 F L Pulse Rate 96 H 88 Respiratory Rate 18 18 18 Blood Pressure 145/75 H 129/60 Pulse Oximetry 98 99 09/29/17 04:00 09/29/17 08:00 09/29/17 08:39 Temperature 98.2 F 97.6 F Pulse Rate 78 85 Respiratory Rate 18 12 Blood Pressure 132/62 127/88 Pulse Oximetry 98 97 95 09/29/17 08:46 09/29/17 09:50 09/29/17 11:58 Temperature Pulse Rate Respiratory Rate 16 14 14 Blood Pressure Pulse Oximetry 09/29/17 12:00 09/29/17 16:30 Temperature 98 F Pulse Rate 92 H Respiratory Rate 14 Blood Pressure 124/80 Pulse Oximetry 96 96 Intake & Output 09/28/17 09/29/17 09/29/17 18:59 06:59 18:59 Intake Total 500 / 500 1360 / 1360 300 / 300 Output Total 4300 / 4300 1000 / 1000 900 / 900 Balance -3800 / -3800 360 / 360 -600 / -600 Weight 181.4 kg Intake: Oral 500 / 500 1360 / 1360 300 / 300 Output: Urine 1300 / 1300 1000 / 1000 900 / 900 Hemodialysis Amount 3000 / 3000 Other: Date of Last Bowel Movement 09/27/17 09/27/17 09/27/17 GENERAL: WBWN WM,NAD SKIN: Warm and dry. HEAD: Normocephalic. EYES: No scleral icterus. No injection or drainage. NECK: Supple, trachea midline. No JVD or lymphadenopathy. CARDIOVASCULAR: Regular rate and rhythm without murmurs, gallops, or rubs. RESPIRATORY: Breath sounds equal bilaterally. No accessory muscle use. GASTROINTESTINAL: Abdomen soft, non-tender, nondistended. MUSCULOSKELETAL: No cyanosis, or edema. BACK: Nontender without obvious deformity. No CVA tenderness. Assessment and Plan - Plan IMPRESSION: 1. Hypercapnic respiratory insufficiency. 2. Chronic obstructive pulmonary disease. 3. Obstructive sleep apnea. 4. Achilles tendon repair and leg infection. 5. Diabetes mellitus. 5. Scrotal edema. PLAN: Duonebs q 6 hrs Supplement 02 Encourage to use CPAP at night SQ Lovenox
[2017-09-29] MEDS: Enoxaparin Inj 40 MG/0.4 ML Syringe SQ SCH (23:43)
[2017-09-30] MEDS: oxyCODONE/Acetaminophen 10/325 Tablet PO PRN ×3 (05:59→18:26)
[2017-09-30] MEDS: Gabapentin 300 MG Capsule PO SCH ×3 (05:59→21:01)
[2017-09-30] MEDS: LORazepam 0.5 MG Tablet PO PRN ×3 (05:59→18:29)
--- NOTE | 2017-09-30 08:49 | P.PNIM ---
Subjective Interval history: doing well. no complaints not interested in snf. wants to go home. Physical Exam Vital signs: Vital Signs 09/29/17 09:50 09/29/17 11:58 09/29/17 12:00 Temperature 98 F Pulse Rate 92 H Respiratory Rate 14 14 14 Blood Pressure 124/80 Pulse Oximetry 96 09/29/17 16:00 09/29/17 16:30 09/29/17 18:22 Temperature 97.9 F Pulse Rate 85 Respiratory Rate 14 14 Blood Pressure 146/73 H Pulse Oximetry 97 96 09/29/17 20:00 09/30/17 00:00 09/30/17 04:00 Temperature 97.9 F 97.2 F L 96.2 F L Pulse Rate 88 91 H 99 H Respiratory Rate 20 20 20 Blood Pressure 139/76 147/73 H 165/77 H Pulse Oximetry 97 98 97 Intake & Output 09/29/17 09/30/17 09/30/17 18:59 06:59 18:59 Intake Total 400 / 400 1200 / 1200 Output Total 900 / 900 700 / 700 Balance -500 / -500 500 / 500 Weight 181.4 kg Intake: IV 100 / 100 Rocephin Inj 2,000 MG In NS Inj 100 / 100 100 ML @ 200 mls/hr IV.SIG Q24H [facility] Rx#:[id number] Oral 300 / 300 1200 / 1200 Output: Urine 900 / 900 700 / 700 Stool 0 / 0 Urine/Stool Mix 0 / 0 Other: Date of Last Bowel Movement 09/27/17 09/28/17 # Bowel Movements 0 heart reg lung cta abd s/nt ext lower ext swelling/scrotum trace to 1plus right ankle bandage. Results - Labs CBC & Chem 7: 09/23/17 06:37 09/29/17 11:48 Laboratory Results - last 24 hr 09/29/17 09/29/17 09/29/17 09:19 11:48 12:22 Sodium 137 Potassium 4.5 Chloride 99 Carbon Dioxide 31.4 Anion Gap 7 BUN 32 H Creatinine 1.35 H Estimated GFR 57 L POC Glucose 269 H 252 H Random Glucose 248 H Calcium 8.8 Phosphorus 3.4 Albumin 3.0 L 09/29/17 09/29/17 18:08 19:29 Sodium Potassium Chloride Carbon Dioxide Anion Gap BUN Creatinine Estimated GFR POC Glucose 178 H 237 H Random Glucose Calcium Phosphorus Albumin - Procedures Right posterior Achilles incision and drainage 08/24/[address] Hull [facility] placement by Dr. Vasquez 09/19/17 Assessment and Plan - Assessment (1) Rupture of right Achilles tendon Code(s): S86.011A - Strain of right Achilles tendon, initial encounter Status : Acute Plan: Open Achilles rupture, right - Recent admission with Achilles rupture - Pt underwent open repair of right Achilles tendon rupture with flexor hallucis longus tendon transfer and gastrocnemius recession, right lower extremity on 07/24/[address] Murillo. - Per podiatry, pt will need to be strict non-weight bearing for 6-8 weeks. - Pt was noted to have increased swelling and pain in the RLE on 08/04 - LE Doppler US (08/04) --> Is negative for DVT - Refused dc to snf and was noncompliant with weight bearing instructions. - Pt was readmitted with infection at operative site on 08/16 - He was seen by podiatry in clinic on 08/16 and sent to ED - MRI right ankle (08/16): 1. Postoperative change at the distal Achilles and calcaneus. Increased signal within the posterior calcaneus can all be consistent with postoperative change. It would be difficult to rule out osteomyelitis. 2. Fluid seen around the Achilles tendon. More superiorly in the mid lower leg, there is a larger fluid collection with peripheral enhancement. There is also a thinner fluid collection seen more superiorly in the proximal lower leg around the lateral aspect of the soleus muscle. These fluid collections could be postoperative seromas. An abscess could have a similar appearance. - vanco and Zosyn (08/17) - Rocephin (08/17 - present) - Rocephin stop date 10/07/17 - Comgmt with ID & Podiatry - Pt had a previous outpt culture taken on 08/11 which grew out Enterobacter cloacae - Right posterior Achilles incision and drainage 08/24/[address] Hull - Intraoperative wound Cx (08/24) --> Enterobacter cloacae - Plan to DC to SNF/rehab following hospitalization to ensure non-weight bearing of RLE and good recovery. Pt at risk for Right BKA. - The case was discussed with [facility]. Copay for SNF was defaulted. CM consulted. Pt agreeable for SNF but need to get accepting facility - Pt not ready for dc yet - Discussed dc abx with ID. orders written continue PT efforts. weight bear instruction per podiatry. ?pt says he may go home instead of snf upon dc Volume overload Anasarca/edema Nephrotic range proteinuria - Pt was moved to ICU after Halicat and hypoxia on 08/31. Pt had received small dose of morphine a few hrs before the event. He was refusing bipap but now agreeable. Pt being followed by Dr Sawyer. - He continues with severe anasarca/lower ext edema and scrotal swelling. Also he has sleep apnea/hypoventilation and has hypoalbuminemia. - Procardia lowered to 30mg BID on 08/31, BP is stable. - Had right heart cath on last admission revealing increased right heart pressure. He has also some mild systolic dysfunction with EF 45% - comgmt with Nephrology - Pt continues to exhibit significant clinical volume overload and is NOT yet ready for discharge. - Medical team/Nephrology has been trying to diurese pt for several weeks. - Pt has been tried on IV lasix, IV bumex, and bumex gtt. Pt had good urine output, but did NOT make any significant clinical improvement. - nephrology recommending renal bx to evaluate for FSGS once patient stable. Unable to stop ASA/palvix at this time. - restrict fluids to 1.5 liters daily - - VasCath (09/19/17) - Pt had first HD 09/19, 09/20, 09/21, and 09/23, 09/26 - further HD today per Nephrology. discussed with Dr Steele. hopefully be able to stop HD before dc but outpt HD not excluded. - unable to get kidney bx until probably Nov. after 6m of asa/plavix for little in rca. - left leg rolanda wrapping ordered. HD held. iv bumex resumed on 09/29...if pt does well on diiuretics and lower ext wraps then plan for dc early next week ?Tuesday. pt wants to go home. iv abx will complete on 10/07. LISS BUN 37, creatintine 1.44, GFR 53 (09/21/17) -> BUN 57, creatinine 3.51, GFR 19 (09/23/17) Cr 3.0 (09/24), 3.55 (09/25) - Discontinued Bumex and Metolazone Avoid nephrotoxins including aminoglycosides and IV contrast Monitor urinary output and BMP renal function improved.cr 1.3 Obesity hypoventilation syndrome Hypercapnic respiratory insufficiency Obesity hypoventilation syndrome COPD - 2-D echocardiogram 07/23/17: - The left ventricular systolic function is mildly reduced with an estimated ejection fraction in the range of 45- 50%. - Mild infero-posterior hypokinesis - Mild concentric left ventricular hypertrophy. - The left atrial size is moderately dilated. - RHC completed (07/28) --> Class 2 Pulm HTN, PCW 23 - No Right heart strain, so sildenafil was stopped - Pt is noncompliant with CPAP - Pt sedated overnight - decrease flexeril to 5mg q8h prn - decrease norco to q6h prn - encourage pt to wear CPAP at night. COPD (chronic obstructive pulmonary disease) - chronic does not appear to be in acute exacerbation - Pt requiring 2L O2 - CXR (09/22) --> venous congestion - IS - tessalon pearles prn cough - observe Diabetes - Cont OHA and SSI. basal levemir titrate up HTN (hypertension) - cont current BP meds, Cozaar 50mg q12H, Hydralazine 50mg TID, Coreg 25mg BID - May try to lower or stop Procardia. - Hydralazine PO PRN Anemia - Pts H/H has slowly been declining. No noted active GIB - During the last admission the pt was transfused with 2 units PRBCs (08/10) - During recent admission pt underwent evaluation with EGD/Colonoscopy (08/11/17 ) with Dr. Mccormick - int/ext hemorrhoids - sigmoid diverticulosis - esophagitis - gastric biopsies taken, results pending - Repeat labs on 08/21/17 with Hgb 8.3/Hct 24.6 -> 7.7/23.5 (08/24) -> 7.8/24.2, 7.6 (08/27), 8.5 (08/28), 7.7 (09/07), 7.9 (09/08) - Hg 7.9 (09/10) - Iron studies 08/08/17 Iron 26, TIBC 244, % saturation 10.7, ferritin 246 - ferritin 154 (08/27), retic 82 (08/27); b12 515, folate 7.9 (08/26) - case informally d/w Hematology - since ferritin > 100, unlikely d/t ANAHI - 2 units PRBCs (08/27/17) - Hg 7.2 (09/20/17) - transfused 2 units PRBCs 09/20 - Hgb 9.1 (8), Hg 8.3 (09/24) CAD (coronary artery disease) Recent history of pulmonary embolism - Patient had a PE approximately 8 months ago and was on Coumadin for until the cardiac cauterization 06/17/17 - Patient with recent cardiac catheterization with PCI 06/17/17 - After catheterization patient's Coumadin was DC'd and he was started on Aspirin and Plavix - Continue patient's Aspirin 81 mg daily, Plavix 75 mg PO daily, Atorvastatin 40 mg PO QHS and Coreg BID Anxiety and depression - Cont. Paxil 20mg daily (1) Rupture of right Achilles tendon Qualifiers: Encounter type: subsequent encounter Qualified Code(s): S86.011D - Strain of right Achilles tendon, subsequent encounter
[2017-09-30] MEDS: hydrALAZINE 25 MG Tablet PO SCH ×3 (09:00→17:58)
[2017-09-30] MEDS: Heparin Central Flush 100 UNIT/ML 5 ML Vial IV.FLUSH SCH (09:00)
[2017-09-30] MEDS: Allopurinol 100 MG Tablet PO SCH (09:00)
[2017-09-30] MEDS: Insulin NovoLOG Aspart Correctional Sugar Inj SQ SCH ×4 (09:00→20:40)
[2017-09-30] MEDS: Glimepiride 4 MG Tablet PO SCH ×2 (09:00→16:55)
[2017-09-30] MEDS: Senna/Docusate Sodium 8.6/50 MG Tablet PO SCH ×2 (09:00→20:16)
[2017-09-30] MEDS: Carvedilol 12.5 MG Tablet PO SCH ×2 (09:00→20:16)
[2017-09-30] MEDS: Benzonatate 100 MG Capsule PO PRN (11:30)
[2017-09-30] MEDS: Insulin Detemir Inj 1,000 UNIT/10 ML Vial SQ SCH ×2 (11:42→20:39)
--- NOTE | 2017-09-30 12:21 | P.PNNP ---
Subjective Interval history: No complaints. Denies any shortness of breath. Continues to have edema but improved. Right foot splint removed. <Beth Bolanos - Last Filed: 09/30/17 12:18> Physical Exam Vital signs: Vital Signs 09/29/17 16:00 09/29/17 16:30 09/29/17 18:22 Temperature 97.9 F Pulse Rate 85 Respiratory Rate 14 14 Blood Pressure 146/73 H Pulse Oximetry 97 96 09/29/17 20:00 09/30/17 00:00 09/30/17 04:00 Temperature 97.9 F 97.2 F L 96.2 F L Pulse Rate 88 91 H 99 H Respiratory Rate 20 20 20 Blood Pressure 139/76 147/73 H 165/77 H Pulse Oximetry 97 98 97 09/30/17 10:42 Temperature Pulse Rate Respiratory Rate Blood Pressure Pulse Oximetry 95 Intake & Output 09/29/17 09/30/17 09/30/17 18:59 06:59 18:59 Intake Total 400 / 400 1200 / 1200 100 / 100 Output Total 900 / 900 700 / 700 Balance -500 / -500 500 / 500 100 / 100 Weight 181.4 kg Intake: IV 100 / 100 100 / 100 Rocephin Inj 2,000 MG In NS Inj 100 / 100 100 / 100 100 ML @ 200 mls/hr IV.SIG Q24H [facility] Rx#:[id number] Oral 300 / 300 1200 / 1200 Output: Urine 900 / 900 700 / 700 Stool 0 / 0 Urine/Stool Mix 0 / 0 Other: Date of Last Bowel Movement 09/27/17 09/28/17 # Bowel Movements 0 Narrative: GENERAL: Alert and oriented. SKIN: Warm and dry. Right IJ vas cath HEAD: Normocephalic. EYES: No scleral icterus. No injection or drainage. NECK: Supple, trachea midline. No JVD or lymphadenopathy. CARDIOVASCULAR: Regular rate and rhythm without murmurs, gallops, or rubs. RESPIRATORY: Breath sounds distant bilaterally. No accessory muscle use. GASTROINTESTINAL: Abdomen soft, non-tender, nondistended. MUSCULOSKELETAL: No cyanosis, lower extremity edema and dependent flank edema, tight. BACK: Nontender without obvious deformity. No CVA tenderness. <Beth Bolanos - Last Filed: 09/30/17 12:18> Assessment and Plan - Assessment (1) Acute kidney injury superimposed on chronic kidney disease Code(s): N17.9 - Acute kidney failure, unspecified; N18.9 - Chronic kidney disease, unspecified Status: Acute Plan: Has Nephrotic Proteinuria with Anasarca. Will need Renal Biopsy but now on ASA and Plavix, will need to delay the Kidney Biopsy for now. Hemodialysis started on 09/19 for anasarca, now on hold Diuretics resumed Vas Cath still in place Avoid nephrotoxins including aminoglycosides and IV contrast Monitor urinary output and BMP Continue Bumex at 2 mg BID No new labs today Labs in AM <Beth Bolanos - Last Filed: 09/30/17 12:18> - Assessment (1) Acute kidney injury superimposed on chronic kidney disease Code(s): N17.9 - Acute kidney failure, unspecified; N18.9 - Chronic kidney disease, unspecified Status: Acute Plan: Patient seen and examined, agree with above. Started on Bumex, follow the urine out put and BMP. <Dash Steele - Last Filed: 11/10/17 09:32>
[2017-09-30 13:15] LABS: Calcium 8.9 mg/dL (8.5-10.1); Carbon Dioxide 32.4 meq/L (21.0-32.0); Potassium 4.6 meq/L (3.5-5.1)
[2017-09-30] MEDS: Lactic Acid (Ammonium Lactate) 12% Lotion 225 GM Bottle TOPICAL SCH ×2 (16:55→23:48)
--- NOTE | 2017-09-30 18:36 | P.PNPL ---
Subjective Interval history: 47 YOWM with Achelis tendon repair,JUDY,COPD Has huge scrotal swelling Diureasing Feels swelling decreasing Off HD Left foot splint removed Physical Exam Vital signs: Vital Signs 09/29/17 20:00 09/30/17 00:00 09/30/17 04:00 Temperature 97.9 F 97.2 F L 96.2 F L Pulse Rate 88 91 H 99 H Respiratory Rate 20 20 20 Blood Pressure 139/76 147/73 H 165/77 H Pulse Oximetry 97 98 97 09/30/17 10:42 Temperature Pulse Rate Respiratory Rate Blood Pressure Pulse Oximetry 95 Intake & Output 09/29/17 09/30/17 09/30/17 18:59 06:59 18:59 Intake Total 400 / 400 1200 / 1200 100 / 100 Output Total 900 / 900 700 / 700 Balance -500 / -500 500 / 500 100 / 100 Weight 181.4 kg Intake: IV 100 / 100 100 / 100 Rocephin Inj 2,000 MG In NS Inj 100 / 100 100 / 100 100 ML @ 200 mls/hr IV.SIG Q24H [facility] Rx#:[id number] Oral 300 / 300 1200 / 1200 Output: Urine 900 / 900 700 / 700 Stool 0 / 0 Urine/Stool Mix 0 / 0 Other: Date of Last Bowel Movement 09/27/17 09/28/17 # Bowel Movements 0 GENERAL: Obese Wm,NAD SKIN: Warm and dry. HEAD: Normocephalic. EYES: No scleral icterus. No injection or drainage. NECK: Supple, trachea midline. No JVD or lymphadenopathy. CARDIOVASCULAR: Regular rate and rhythm without murmurs, gallops, or rubs. RESPIRATORY: Breath sounds equal bilaterally. No accessory muscle use. GASTROINTESTINAL: Abdomen soft, non-tender, nondistended. MUSCULOSKELETAL: No cyanosis, ++ edema. Scrotal swelling BACK: Nontender without obvious deformity. No CVA tenderness. Assessment and Plan - Plan IMPRESSION: 1. Hypercapnic respiratory insufficiency. 2. Chronic obstructive pulmonary disease. 3. Obstructive sleep apnea. 4. Achilles tendon repair and leg infection. 5. Diabetes mellitus. 5. Scrotal edema. PLAN: Duonebs q 6 hrs Supplement 02 Encourage to use CPAP at night SQ Lovenox Stable from Pulm standpoint Available prn over weekend.
[2017-09-30] MEDS: Enoxaparin Inj 40 MG/0.4 ML Syringe SQ SCH (23:48)
[2017-10-01] MEDS: LORazepam 0.5 MG Tablet PO PRN ×4 (00:12→19:39)
[2017-10-01] MEDS: oxyCODONE/Acetaminophen 10/325 Tablet PO PRN ×4 (00:13→19:39)
[2017-10-01] MEDS: Gabapentin 300 MG Capsule PO SCH ×3 (05:19→22:00)
[2017-10-01 06:47] LABS: Baso # (Auto) 0.1 th/mm3 (0.0-0.2); Baso % (Auto) 0.9 % (0.0-2.0); Eos # (Auto) 0.3 th/mm3 (0.0-0.4); Eos % (Auto) 4.2 % (0.0-4.0); Hematocrit 24.4 % (39.0-51.0); Hemoglobin 8.2 gm/dL (13.0-17.0); Lymph # (Auto) 0.9 th/mm3 (1.0-4.8); Lymph % (Auto) 14.7 % (9.0-44.0); Mean Corpuscular HGB Conc 33.7 % (32.0-36.0); Mean Corpuscular Hemoglobin 27.5 pg (27.0-34.0); Mean Corpuscular Volume 81.6 fL (80.0-100.0); Mean Platelet Volume 6.6 fL (7.0-11.0); Mono # (Auto) 0.9 th/mm3 (0.0-0.9); Neut # (Auto) 3.9 th/mm3 (1.8-7.7); Neut % (Auto) 65.2 % (16.0-70.0); Platelet Count 244 th/mm3 (150-450); Red Cell Distribution Width 16.2 % (11.6-17.2)
[2017-10-01 07:11] LABS: Calcium 8.5 mg/dL (8.5-10.1); Carbon Dioxide 33.3 meq/L (21.0-32.0); Potassium 4.6 meq/L (3.5-5.1)
[2017-10-01] MEDS: Insulin NovoLOG Aspart Correctional Sugar Inj SQ SCH ×4 (08:00→21:00)
[2017-10-01] MEDS: Insulin Detemir Inj 1,000 UNIT/10 ML Vial SQ SCH ×2 (08:00→21:00)
[2017-10-01] MEDS: Glimepiride 4 MG Tablet PO SCH ×2 (09:00→16:45)
[2017-10-01] MEDS: Allopurinol 100 MG Tablet PO SCH (09:45)
[2017-10-01] MEDS: Lactic Acid (Ammonium Lactate) 12% Lotion 225 GM Bottle TOPICAL SCH ×2 (09:45→21:00)
[2017-10-01] MEDS: Heparin Central Flush 100 UNIT/ML 5 ML Vial IV.FLUSH SCH (09:45)
[2017-10-01] MEDS: Carvedilol 12.5 MG Tablet PO SCH ×2 (09:45→21:00)
[2017-10-01] MEDS: Senna/Docusate Sodium 8.6/50 MG Tablet PO SCH ×2 (09:45→21:00)
[2017-10-01] MEDS: hydrALAZINE 25 MG Tablet PO SCH ×3 (09:45→17:29)
--- NOTE | 2017-10-01 10:36 | P.PNIM ---
Subjective Interval history: no new problems Physical Exam Vital signs: Vital Signs 09/30/17 10:42 09/30/17 12:00 09/30/17 15:00 Temperature 98.9 F Pulse Rate 91 H Respiratory Rate 20 20 Blood Pressure 160/90 H Pulse Oximetry 95 98 09/30/17 16:00 09/30/17 20:00 09/30/17 21:49 Temperature 98.1 F 97.9 F Pulse Rate 100 H 83 Respiratory Rate 20 20 Blood Pressure 150/78 H 134/72 Pulse Oximetry 99 97 98 10/01/17 00:00 10/01/17 04:00 10/01/17 08:41 Temperature 96.6 F L 98.3 F Pulse Rate 86 81 Respiratory Rate 20 20 Blood Pressure 146/72 H 130/67 Pulse Oximetry 97 98 98 Intake & Output 09/30/17 10/01/17 10/01/17 18:59 06:59 18:59 Intake Total 800 / 800 670 / 670 Output Total 1999 1400 / 1400 Balance -1200 / -1200 -730 / -730 Weight 181.4 kg Intake: IV 100 / 100 Rocephin Inj 2,000 MG In NS Inj 100 / 100 100 ML @ 200 mls/hr IV.SIG Q24H [facility] Rx#:[id number] Oral 700 / 700 670 / 670 Output: Urine 1999 1400 / 1400 Other: Date of Last Bowel Movement 09/30/17 09/30/17 # Bowel Movements 0 # Incontinent Bowel Movements 1 heart rg lungcta abd s/nt ext lower ext edema/scrotum much improved Results - Labs CBC & Chem 7: 10/01/17 06:15 10/01/17 06:15 Laboratory Results - last 24 hr 09/30/17 09/30/17 09/30/17 11:37 12:34 20:31 WBC RBC Hgb Hct MCV MCH MCHC RDW Plt Count MPV Neut % (Auto) Lymph % (Auto) Mchenry % (Auto) Eos % (Auto) Baso % (Auto) Neut # (Auto) Lymph # (Auto) Mchenry # (Auto) Eos # (Auto) Baso # (Auto) WBC Differential Differential Comment Sodium 139 Potassium 4.6 Chloride 99 Carbon Dioxide 32.4 H Anion Gap 8 BUN 34 H Creatinine 1.22 Estimated GFR 64 L POC Glucose 257 H 210 H Random Glucose 214 H Calcium 8.9 10/01/17 10/01/17 10/01/17 06:15 06:15 06:27 WBC 6.0 RBC 3.00 L Hgb 8.2 L Hct 24.4 L MCV 81.6 MCH 27.5 MCHC 33.7 RDW 16.2 Plt Count 244 MPV 6.6 L Neut % (Auto) 65.2 Lymph % (Auto) 14.7 Mchenry % (Auto) 15.0 H Eos % (Auto) 4.2 H Baso % (Auto) 0.9 Neut # (Auto) 3.9 Lymph # (Auto) 0.9 L Mchenry # (Auto) 0.9 Eos # (Auto) 0.3 Baso # (Auto) 0.1 WBC Differential . Differential Comment Auto diff final Sodium 137 Potassium 4.6 Chloride 98 Carbon Dioxide 33.3 H Anion Gap 6 BUN 40 H Creatinine 1.37 H Estimated GFR 56 L POC Glucose 111 H Random Glucose 211 H Calcium 8.5 - Procedures Right posterior Achilles incision and drainage 08/24/[address] Della Dhillon placement by Dr. Vasquez 09/19/17 Assessment and Plan - Assessment (1) Rupture of right Achilles tendon Code(s): S86.011A - Strain of right Achilles tendon, initial encounter Status : Acute Plan: Open Achilles rupture, right - Recent admission with Achilles rupture - Pt underwent open repair of right Achilles tendon rupture with flexor hallucis longus tendon transfer and gastrocnemius recession, right lower extremity on 07/24/[address] Murillo. - Per podiatry, pt will need to be strict non-weight bearing for 6-8 weeks. - Pt was noted to have increased swelling and pain in the RLE on 08/04 - LE Doppler US (08/04) --> Is negative for DVT - Refused dc to snf and was noncompliant with weight bearing instructions. - Pt was readmitted with infection at operative site on 08/16 - He was seen by podiatry in clinic on 08/16 and sent to ED - MRI right ankle (08/16): 1. Postoperative change at the distal Achilles and calcaneus. Increased signal within the posterior calcaneus can all be consistent with postoperative change. It would be difficult to rule out osteomyelitis. 2. Fluid seen around the Achilles tendon. More superiorly in the mid lower leg, there is a larger fluid collection with peripheral enhancement. There is also a thinner fluid collection seen more superiorly in the proximal lower leg around the lateral aspect of the soleus muscle. These fluid collections could be postoperative seromas. An abscess could have a similar appearance. - vanco and Zosyn (08/17) - Rocephin (08/17 - present) - Rocephin stop date 10/07/17 - Comgmt with ID & Podiatry - Pt had a previous outpt culture taken on 08/11 which grew out Enterobacter cloacae - Right posterior Achilles incision and drainage 08/24/[address] Hull - Intraoperative wound Cx (08/24) --> Enterobacter cloacae - Plan to DC to SNF/rehab following hospitalization to ensure non-weight bearing of RLE and good recovery. Pt at risk for Right BKA. - The case was discussed with [facility]. Copay for SNF was defaulted. CM consulted. Pt agreeable for SNF but need to get accepting facility - Pt not ready for dc yet - Discussed dc abx with ID. orders written continue PT efforts. weight bear instruction per podiatry. ?pt says he may go home instead of snf upon dc Volume overload Anasarca/edema Nephrotic range proteinuria - Pt was moved to ICU after Halicat and hypoxia on 08/31. Pt had received small dose of morphine a few hrs before the event. He was refusing bipap but now agreeable. Pt being followed by Dr Sawyer. - He continues with severe anasarca/lower ext edema and scrotal swelling. Also he has sleep apnea/hypoventilation and has hypoalbuminemia. - Procardia lowered to 30mg BID on 08/31, BP is stable. - Had right heart cath on last admission revealing increased right heart pressure. He has also some mild systolic dysfunction with EF 45% - comgmt with Nephrology - Pt continues to exhibit significant clinical volume overload and is NOT yet ready for discharge. - Medical team/Nephrology has been trying to diurese pt for several weeks. - Pt has been tried on IV lasix, IV bumex, and bumex gtt. Pt had good urine output, but did NOT make any significant clinical improvement. - nephrology recommending renal bx to evaluate for FSGS once patient stable. Unable to stop ASA/palvix at this time. - restrict fluids to 1.5 liters daily - - VasCath (09/19/17) - Pt had first HD 09/19, 09/20, 09/21, and 09/23, 09/26 - further HD today per Nephrology. discussed with Dr Steele. hopefully be able to stop HD before dc but outpt HD not excluded. - unable to get kidney bx until probably Nov. after 6m of asa/plavix for little in rca. - left leg rolanda wrapping ordered. HD held. iv bumex resumed on 09/29...if pt does well on diiuretics and lower ext wraps then plan for dc early next week ?tue or . pt wants to go home. iv abx will complete on 10/07. LISS BUN 37, creatintine 1.44, GFR 53 (09/21/17) -> BUN 57, creatinine 3.51, GFR 19 (09/23/17) Cr 3.0 (09/24), 3.55 (09/25) Avoid nephrotoxins including aminoglycosides and IV contrast Monitor urinary output and BMP renal function improved.cr 1.3. see above Obesity hypoventilation syndrome Hypercapnic respiratory insufficiency Obesity hypoventilation syndrome COPD - 2-D echocardiogram 07/23/17: - The left ventricular systolic function is mildly reduced with an estimated ejection fraction in the range of 45- 50%. - Mild infero-posterior hypokinesis - Mild concentric left ventricular hypertrophy. - The left atrial size is moderately dilated. - RHC completed (07/28) --> Class 2 Pulm HTN, PCW 23 - No Right heart strain, so sildenafil was stopped - Pt is noncompliant with CPAP - Pt sedated overnight - decrease flexeril to 5mg q8h prn - decrease norco to q6h prn - encourage pt to wear CPAP at night. COPD (chronic obstructive pulmonary disease) - chronic does not appear to be in acute exacerbation - Pt requiring 2L O2 - CXR (09/22) --> venous congestion - IS - tessalon pearles prn cough - observe Diabetes - Cont OHA and SSI. basal levemir titrate up HTN (hypertension) - cont current BP meds, Cozaar 50mg q12H, Hydralazine 50mg TID, Coreg 25mg BID - May try to lower or stop Procardia. - Hydralazine PO PRN Anemia - Pts H/H has slowly been declining. No noted active GIB - During the last admission the pt was transfused with 2 units PRBCs (08/10) - During recent admission pt underwent evaluation with EGD/Colonoscopy (08/11/17 ) with Dr. Mccormick - int/ext hemorrhoids - sigmoid diverticulosis - esophagitis - gastric biopsies taken, results pending - Repeat labs on 08/21/17 with Hgb 8.3/Hct 24.6 -> 7.7/23.5 (08/24) -> 7.8/24.2, 7.6 (08/27), 8.5 (08/28), 7.7 (09/07), 7.9 (09/08) - Hg 7.9 (09/10) - Iron studies 08/08/17 Iron 26, TIBC 244, % saturation 10.7, ferritin 246 - ferritin 154 (08/27), retic 82 (08/27); b12 515, folate 7.9 (08/26) - case informally d/w Hematology - since ferritin > 100, unlikely d/t ANAHI - 2 units PRBCs (08/27/17) - Hg 7.2 (09/20/17) - transfused 2 units PRBCs 09/20 - Hgb 9.1 (09/21), Hg 8.3 (09/24) CAD (coronary artery disease) Recent history of pulmonary embolism - Patient had a PE approximately 8 months ago and was on Coumadin for until the cardiac cauterization 06/17/17 - Patient with recent cardiac catheterization with PCI 06/17/17 - After catheterization patient's Coumadin was DC'd and he was started on Aspirin and Plavix - Continue patient's Aspirin 81 mg daily, Plavix 75 mg PO daily, Atorvastatin 40 mg PO QHS and Coreg BID Anxiety and depression - Cont. Paxil 20mg daily (1) Rupture of right Achilles tendon Qualifiers: Encounter type: subsequent encounter Qualified Code(s): S86.011D - Strain of right Achilles tendon, subsequent encounter
[2017-10-01] MEDS: Benzonatate 100 MG Capsule PO PRN (10:45)
--- NOTE | 2017-10-01 14:11 | P.PNNP ---
Subjective Interval history: patient's renal function is stable, Edema appears to be improving. Physical Exam Vital signs: Vital Signs 09/30/17 15:00 09/30/17 16:00 09/30/17 20:00 Temperature 98.1 F 97.9 F Pulse Rate 100 H 83 Respiratory Rate 20 20 20 Blood Pressure 150/78 H 134/72 Pulse Oximetry 99 97 09/30/17 21:49 10/01/17 00:00 10/01/17 04:00 Temperature 96.6 F L 98.3 F Pulse Rate 86 81 Respiratory Rate 20 20 Blood Pressure 146/72 H 130/67 Pulse Oximetry 98 97 98 10/01/17 07:00 10/01/17 08:00 10/01/17 08:41 Temperature 98.9 F Pulse Rate 80 Respiratory Rate 20 20 Blood Pressure 140/77 Pulse Oximetry 97 98 Intake & Output 09/30/17 10/01/17 10/01/17 18:59 06:59 18:59 Intake Total 800 / 800 670 / 670 100 / 100 Output Total 1999 1400 / 1400 Balance -1200 / -1200 -730 / -730 100 / 100 Weight 181.4 kg Intake: IV 100 / 100 100 / 100 Rocephin Inj 2,000 MG In NS Inj 100 / 100 100 / 100 100 ML @ 200 mls/hr IV.SIG Q24H [facility] Rx#:[id number] Oral 700 / 700 670 / 670 Output: Urine 1999 1400 / 1400 Other: Date of Last Bowel Movement 09/30/17 09/30/17 # Bowel Movements 0 # Incontinent Bowel Movements 1 - Constitutional no acute distress - Routine HEENT Exam Head: Present: normocephalic, atraumatic - Routine Neck Exam Absent: JVD, lymphadenopathy, thyromegaly - Routine Respiratory Exam Present: CTA bilaterally - Routine Cardiovascular Exam Present: S1, S2 - Routine Abdominal Exam Present: soft, normoactive bowel sounds - Routine Extremities Exam Present: edema - Routine Skin Exam Present: intact - Routine Neurological Exam Present: alert, oriented X3 Assessment and Plan - Assessment (1) Acute kidney injury superimposed on chronic kidney disease Code(s): N17.9 - Acute kidney failure, unspecified; N18.9 - Chronic kidney disease, unspecified Status: Acute Plan: Has Nephrotic Proteinuria with Anasarca. Will need Renal Biopsy but now on ASA and Plavix, will need to delay the Kidney Biopsy for now. Hemodialysis started on 09/19 for anasarca, now on hold Diuretics resumed Avoid nephrotoxins including aminoglycosides and IV contrast Monitor urinary output and BMP Continue Bumex at 2 mg BID
[2017-10-01] MEDS: Enoxaparin Inj 40 MG/0.4 ML Syringe SQ SCH (23:00)
[2017-10-02] MEDS: oxyCODONE/Acetaminophen 10/325 Tablet PO PRN ×4 (02:29→20:18)
[2017-10-02] MEDS: LORazepam 0.5 MG Tablet PO PRN ×4 (02:31→20:18)
[2017-10-02] MEDS: Gabapentin 300 MG Capsule PO SCH ×3 (05:56→22:00)
[2017-10-02 07:12] LABS: Calcium 8.5 mg/dL (8.5-10.1); Carbon Dioxide 33.4 meq/L (21.0-32.0)
--- NOTE | 2017-10-02 08:41 | P.PNIM ---
Subjective Interval history: no new complaints Physical Exam Vital signs: Vital Signs 10/01/17 08:41 10/01/17 12:00 10/01/17 15:00 Temperature 97.9 F Pulse Rate 78 Respiratory Rate 18 20 Blood Pressure 140/85 Pulse Oximetry 98 10/01/17 16:00 10/01/17 20:00 10/01/17 20:47 Temperature 98.0 F 97.4 F L Pulse Rate 90 83 Respiratory Rate 20 20 Blood Pressure 138/70 135/67 Pulse Oximetry 97 10/02/17 00:00 10/02/17 03:00 10/02/17 04:00 Temperature 98.0 F 98.0 F Pulse Rate 85 83 Respiratory Rate 20 20 18 Blood Pressure 134/68 146/70 H Pulse Oximetry Intake & Output 10/01/17 10/02/17 10/02/17 18:59 06:59 18:59 Intake Total 800 / 800 910 / 910 Output Total 1500 / 1500 2350 / 2350 Balance -700 / -700 -1440 / -1440 Weight 181.4 kg Intake: IV 100 / 100 100 / 100 Rocephin Inj 2,000 MG In NS Inj 100 / 100 100 / 100 100 ML @ 200 mls/hr IV.SIG Q24H [facility] Rx#:[id number] Oral 700 / 700 810 / 810 Output: Urine 1500 / 1500 2350 / 2350 Other: # Voids 2 Date of Last Bowel Movement 09/30/17 10/02/17 # Bowel Movements 1 heart reg lung cta abd s/nt ext edema improved. lower ext wraps Results - Labs CBC & Chem 7: 10/01/17 06:15 10/02/17 06:30 Laboratory Results - last 24 hr 10/01/17 10/01/17 10/02/17 18:27 22:17 06:30 Sodium 137 Potassium 5.0 Chloride 97 L Carbon Dioxide 33.4 H Anion Gap 7 BUN 41 H Creatinine 1.64 H Estimated GFR 45 L POC Glucose 213 H 246 H Random Glucose 179 H Calcium 8.5 - Procedures Right posterior Achilles incision and drainage 08/24/[address] Della Dhillon placement by Dr. Vasquez 09/19/17 Assessment and Plan - Assessment (1) Rupture of right Achilles tendon Code(s): S86.011A - Strain of right Achilles tendon, initial encounter Status : Acute Plan: Open Achilles rupture, right - Recent admission with Achilles rupture - Pt underwent open repair of right Achilles tendon rupture with flexor hallucis longus tendon transfer and gastrocnemius recession, right lower extremity on 07/24/[address] Murillo. - Per podiatry, pt will need to be strict non-weight bearing for 6-8 weeks. - Pt was noted to have increased swelling and pain in the RLE on 08/04 - LE Doppler US (08/04) --> Is negative for DVT - Refused dc to snf and was noncompliant with weight bearing instructions. - Pt was readmitted with infection at operative site on 08/16 - He was seen by podiatry in clinic on 08/16 and sent to ED - MRI right ankle (08/16): 1. Postoperative change at the distal Achilles and calcaneus. Increased signal within the posterior calcaneus can all be consistent with postoperative change. It would be difficult to rule out osteomyelitis. 2. Fluid seen around the Achilles tendon. More superiorly in the mid lower leg, there is a larger fluid collection with peripheral enhancement. There is also a thinner fluid collection seen more superiorly in the proximal lower leg around the lateral aspect of the soleus muscle. These fluid collections could be postoperative seromas. An abscess could have a similar appearance. - vanco and Zosyn (08/17) - Rocephin (08/17 - present) - Rocephin stop date 10/07/17 - Comgmt with ID & Podiatry - Pt had a previous outpt culture taken on 08/11 which grew out Enterobacter cloacae - Right posterior Achilles incision and drainage 08/24/[address] Hull - Intraoperative wound Cx (08/24) --> Enterobacter cloacae - Plan to DC to SNF/rehab following hospitalization to ensure non-weight bearing of RLE and good recovery. Pt at risk for Right BKA. - The case was discussed with [facility]. Copay for SNF was defaulted. CM consulted. Pt agreeable for SNF but need to get accepting facility - Pt not ready for dc yet - Discussed dc abx with ID. orders written continue PT efforts. weight bear instruction per podiatry. ?pt says he may go home instead of snf upon dc Volume overload Anasarca/edema Nephrotic range proteinuria - Pt was moved to ICU after Halicat and hypoxia on 08/31. Pt had received small dose of morphine a few hrs before the event. He was refusing bipap but now agreeable. Pt being followed by Dr Sawyer. - He continues with severe anasarca/lower ext edema and scrotal swelling. Also he has sleep apnea/hypoventilation and has hypoalbuminemia. - Procardia lowered to 30mg BID on 08/31, BP is stable. - Had right heart cath on last admission revealing increased right heart pressure. He has also some mild systolic dysfunction with EF 45% - comgmt with Nephrology - Pt continues to exhibit significant clinical volume overload and is NOT yet ready for discharge. - Medical team/Nephrology has been trying to diurese pt for several weeks. - Pt has been tried on IV lasix, IV bumex, and bumex gtt. Pt had good urine output, but did NOT make any significant clinical improvement. - nephrology recommending renal bx to evaluate for FSGS once patient stable. Unable to stop ASA/palvix at this time. - restrict fluids to 1.5 liters daily - - VasCath (09/19/17) - Pt had first HD 09/19, 09/20, 09/21, and 09/23, 09/26 - further HD today per Nephrology. discussed with Dr Steele. hopefully be able to stop HD before dc but outpt HD not excluded. - unable to get kidney bx until probably Nov. after 6m of asa/plavix for little in rca. - left leg rolanda wrapping ordered. HD held. iv bumex resumed on 09/29...if pt does well on diiuretics and lower ext wraps then plan for dc early next week ?tue or . pt wants to go home. iv abx will complete on 10/07. cr rising again...diuretic per renal ...?convert to po bumex LISS BUN 37, creatintine 1.44, GFR 53 (09/21/17) -> BUN 57, creatinine 3.51, GFR 19 (09/23/17) Cr 3.0 (09/24), 3.55 (09/25) Avoid nephrotoxins including aminoglycosides and IV contrast Monitor urinary output and BMP Obesity hypoventilation syndrome Hypercapnic respiratory insufficiency Obesity hypoventilation syndrome COPD - 2-D echocardiogram 07/23/17: - The left ventricular systolic function is mildly reduced with an estimated ejection fraction in the range of 45- 50%. - Mild infero-posterior hypokinesis - Mild concentric left ventricular hypertrophy. - The left atrial size is moderately dilated. - RHC completed (07/28) --> Class 2 Pulm HTN, PCW 23 - No Right heart strain, so sildenafil was stopped - Pt is noncompliant with CPAP - Pt sedated overnight - decrease flexeril to 5mg q8h prn - decrease norco to q6h prn - encourage pt to wear CPAP at night. COPD (chronic obstructive pulmonary disease) - chronic does not appear to be in acute exacerbation - Pt requiring 2L O2 - CXR (09/22) --> venous congestion - IS - tessalon pearles prn cough - observe Diabetes - Cont OHA and SSI. basal levemir titrate up HTN (hypertension) - cont current BP meds, Cozaar 50mg q12H, Hydralazine 50mg TID, Coreg 25mg BID - May try to lower or stop Procardia. - Hydralazine PO PRN Anemia - Pts H/H has slowly been declining. No noted active GIB - During the last admission the pt was transfused with 2 units PRBCs (08/10) - During recent admission pt underwent evaluation with EGD/Colonoscopy (08/11/17 ) with Dr. Mccormick - int/ext hemorrhoids - sigmoid diverticulosis - esophagitis - gastric biopsies taken, results pending - Repeat labs on 08/21/17 with Hgb 8.3/Hct 24.6 -> 7.7/23.5 (08/24) -> 7.8/24.2, 7.6 (08/27), 8.5 (08/28), 7.7 (09/07), 7.9 (09/08) - Hg 7.9 (09/10) - Iron studies 08/08/17 Iron 26, TIBC 244, % saturation 10.7, ferritin 246 - ferritin 154 (08/27), retic 82 (08/27); b12 515, folate 7.9 (08/26) - case informally d/w Hematology - since ferritin > 100, unlikely d/t ANAHI - 2 units PRBCs (08/27/17) - Hg 7.2 (09/20/17) - transfused 2 units PRBCs 09/20 - Hgb 9.1 (09/21), Hg 8.3 (09/24) CAD (coronary artery disease) Recent history of pulmonary embolism - Patient had a PE approximately 8 months ago and was on Coumadin for until the cardiac cauterization 06/17/17 - Patient with recent cardiac catheterization with PCI 06/17/17 - After catheterization patient's Coumadin was DC'd and he was started on Aspirin and Plavix - Continue patient's Aspirin 81 mg daily, Plavix 75 mg PO daily, Atorvastatin 40 mg PO QHS and Coreg BID Anxiety and depression - Cont. Paxil 20mg daily (1) Rupture of right Achilles tendon Qualifiers: Encounter type: subsequent encounter Qualified Code(s): S86.011D - Strain of right Achilles tendon, subsequent encounter
[2017-10-02] MEDS: Allopurinol 100 MG Tablet PO SCH (09:45)
[2017-10-02] MEDS: Benzonatate 100 MG Capsule PO PRN (09:45)
[2017-10-02] MEDS: hydrALAZINE 25 MG Tablet PO SCH ×3 (09:45→19:37)
[2017-10-02] MEDS: Glimepiride 4 MG Tablet PO SCH ×2 (09:45→16:23)
[2017-10-02] MEDS: Carvedilol 12.5 MG Tablet PO SCH ×2 (09:45→21:00)
[2017-10-02] MEDS: Senna/Docusate Sodium 8.6/50 MG Tablet PO SCH ×2 (09:46→21:00)
[2017-10-02] MEDS: Heparin Central Flush 100 UNIT/ML 5 ML Vial IV.FLUSH SCH (09:46)
[2017-10-02] MEDS: Insulin Detemir Inj 1,000 UNIT/10 ML Vial SQ SCH ×2 (09:47→21:00)
[2017-10-02] MEDS: Insulin NovoLOG Aspart Correctional Sugar Inj SQ SCH ×4 (09:49→21:00)
[2017-10-02] MEDS: Lactic Acid (Ammonium Lactate) 12% Lotion 225 GM Bottle TOPICAL SCH ×2 (09:50→21:00)
[2017-10-02] MEDS: Enoxaparin Inj 40 MG/0.4 ML Syringe SQ SCH (23:00)
[2017-10-03] MEDS: LORazepam 0.5 MG Tablet PO PRN ×5 (02:25→22:18)
[2017-10-03] MEDS: oxyCODONE/Acetaminophen 10/325 Tablet PO PRN ×4 (02:25→22:18)
[2017-10-03] MEDS: Temazepam 15 MG Capsule PO PRN (05:08)
[2017-10-03] MEDS: Gabapentin 300 MG Capsule PO SCH ×3 (06:00→21:53)
[2017-10-03] MEDS: Allopurinol 100 MG Tablet PO SCH (08:31)
[2017-10-03] MEDS: Carvedilol 12.5 MG Tablet PO SCH ×2 (08:31→21:52)
[2017-10-03] MEDS: Senna/Docusate Sodium 8.6/50 MG Tablet PO SCH ×2 (08:31→21:53)
[2017-10-03] MEDS: Glimepiride 4 MG Tablet PO SCH ×2 (08:31→18:13)
[2017-10-03] MEDS: Benzonatate 100 MG Capsule PO PRN (08:31)
[2017-10-03] MEDS: hydrALAZINE 25 MG Tablet PO SCH ×3 (08:31→18:13)
[2017-10-03] MEDS: Lactic Acid (Ammonium Lactate) 12% Lotion 225 GM Bottle TOPICAL SCH ×2 (08:32→22:21)
[2017-10-03] MEDS: Insulin Detemir Inj 1,000 UNIT/10 ML Vial SQ SCH ×2 (08:32→22:06)
[2017-10-03] MEDS: Heparin Central Flush 100 UNIT/ML 5 ML Vial IV.FLUSH SCH (08:32)
[2017-10-03] MEDS: Insulin NovoLOG Aspart Correctional Sugar Inj SQ SCH ×4 (08:33→22:07)
[2017-10-03 10:01] LABS: Calcium 8.6 mg/dL (8.5-10.1); Carbon Dioxide 33.5 meq/L (21.0-32.0); Potassium 4.8 meq/L (3.5-5.1)
--- NOTE | 2017-10-03 10:20 | P.PNNP ---
Physical Exam Vital signs: Vital Signs 10/02/17 12:00 10/02/17 15:00 10/02/17 16:00 Temperature 97.9 F 98.4 F Pulse Rate 80 80 Respiratory Rate 24 18 18 Blood Pressure 145/84 H 133/84 Pulse Oximetry 97 98 10/02/17 17:00 10/02/17 20:00 10/03/17 00:00 Temperature 98 F 98 F Pulse Rate 98 H 84 Respiratory Rate 20 20 20 Blood Pressure 138/72 134/76 Pulse Oximetry 96 95 10/03/17 00:34 10/03/17 04:00 10/03/17 07:42 Temperature 98 F Pulse Rate 83 Respiratory Rate 20 18 Blood Pressure 146/70 H Pulse Oximetry 97 98 10/03/17 08:00 Temperature 97.8 F Pulse Rate 82 Respiratory Rate 12 Blood Pressure 122/67 Pulse Oximetry 97 Intake & Output 10/02/17 10/03/17 10/03/17 18:59 06:59 18:59 Intake Total 900 / 900 910 / 910 Output Total 2400 / 2400 2500 / 2500 Balance -1500 / -1500 -1590 / -1590 Weight 172.7 kg 173.9 kg Intake: IV 100 / 100 Rocephin Inj 2,000 MG In NS Inj 100 / 100 100 ML @ 200 mls/hr IV.SIG Q24H [facility] Rx#:[id number] Oral 900 / 900 810 / 810 Output: Urine 2400 / 2400 2500 / 2500 Other: # Voids 5 4 Date of Last Bowel Movement 10/02/17 10/02/17 10/03/17 Assessment and Plan - Assessment (1) Acute kidney injury superimposed on chronic kidney disease Code(s): N17.9 - Acute kidney failure, unspecified; N18.9 - Chronic kidney disease, unspecified Status: Acute Plan: Has Nephrotic Proteinuria with Anasarca. Will need Renal Biopsy but now on ASA and Plavix, will need to delay the Kidney Biopsy for now. Hemodialysis started on 09/19 for anasarca, now on hold Diuretics resumed Avoid nephrotoxins including aminoglycosides and IV contrast Monitor urinary output and BMP Continue Bumex at 2 mg BID - Plan Patient has Nephrotic Proteinuria with Anasarca. Will need Renal Biopsy but now on ASA and Plavix, will need to delay the Kidney Biopsy for now. Hemodialysis started on 09/19 Discontinue Bumex and Metolazone as patients creatinine has increased. Anasarca has improved but LISS most likely that patient is intravascularly dry. Avoid nephrotoxins including aminoglycosides and IV contrast Monitor urinary output and BMP Creatinine is still increasing, now again 3.5. Urine out put is low. HD again in AM. Kidney Biospy cannot be done due to immobility and being on Plavix, with history of stent.
--- NOTE | 2017-10-03 15:07 | P.PNIM ---
Subjective Interval history: doing well. no new complaints Physical Exam Vital signs: Vital Signs 10/02/17 16:00 10/02/17 17:00 10/02/17 20:00 Temperature 98.4 F 98 F Pulse Rate 80 98 H Respiratory Rate 18 20 20 Blood Pressure 133/84 138/72 Pulse Oximetry 98 96 10/03/17 00:00 10/03/17 00:34 10/03/17 04:00 Temperature 98 F 98 F Pulse Rate 84 83 Respiratory Rate 20 20 18 Blood Pressure 134/76 146/70 H Pulse Oximetry 95 97 10/03/17 07:42 10/03/17 08:00 10/03/17 12:00 Temperature 97.8 F 98.6 F Pulse Rate 82 100 H Respiratory Rate 12 18 Blood Pressure 122/67 110/80 Pulse Oximetry 98 97 97 10/03/17 14:18 10/03/17 15:00 Temperature Pulse Rate Respiratory Rate 12 Blood Pressure Pulse Oximetry 95 Intake & Output 10/02/17 10/03/17 10/03/17 18:59 06:59 18:59 Intake Total 900 / 900 910 / 910 Output Total 2400 / 2400 2500 / 2500 Balance -1500 / -1500 -1590 / -1590 Weight 172.7 kg 173.9 kg Intake: IV 100 / 100 Rocephin Inj 2,000 MG In NS Inj 100 / 100 100 ML @ 200 mls/hr IV.SIG Q24H [facility]IE Rx#:[id number] Oral 900 / 900 810 / 810 Output: Urine 2400 / 2400 2500 / 2500 Other: # Voids 5 4 Date of Last Bowel Movement 10/02/17 10/02/17 10/03/17 heart reg lung cta abd s/nt ext lower ext wrapped. Results - Labs CBC & Chem 7: 10/01/17 06:15 10/03/17 08:48 Laboratory Results - last 24 hr 10/02/17 10/02/17 10/03/17 18:43 22:13 07:49 Sodium Potassium Chloride Carbon Dioxide Anion Gap BUN Creatinine Estimated GFR POC Glucose 118 H 223 H 134 H Random Glucose Calcium 10/03/17 10/03/17 08:48 12:44 Sodium 138 Potassium 4.8 Chloride 99 Carbon Dioxide 33.5 H Anion Gap 6 BUN 42 H Creatinine 1.27 Estimated GFR 61 L POC Glucose 129 H Random Glucose 122 H Calcium 8.6 - Procedures Right posterior Achilles incision and [facility] 08[facility] [facility] 09/19/17 Assessment and Plan - Assessment (1) Rupture of right Achilles tendon Code(s): S86.011A - Strain of right Achilles tendon, initial encounter Status : Acute Plan: Open Achilles rupture, right - Recent admission with Achilles rupture - Pt underwent open repair of right Achilles tendon rupture with flexor hallucis longus tendon transfer and gastrocnemius recession, right lower extremity on 07/24/[address] Murillo. - Per podiatry, pt will need to be strict non-weight bearing for 6-8 weeks. - Pt was noted to have increased swelling and pain in the RLE on 08/04 - LE Doppler US (08/04) --> Is negative for DVT - Refused dc to snf and was noncompliant with weight bearing instructions. - Pt was readmitted with infection at operative site on 08/16 - He was seen by podiatry in clinic on 08/16 and sent to ED - MRI right ankle (08/16): 1. Postoperative change at the distal Achilles and calcaneus. Increased signal within the posterior calcaneus can all be consistent with postoperative change. It would be difficult to rule out osteomyelitis. 2. Fluid seen around the Achilles tendon. More superiorly in the mid lower leg, there is a larger fluid collection with peripheral enhancement. There is also a thinner fluid collection seen more superiorly in the proximal lower leg around the lateral aspect of the soleus muscle. These fluid collections could be postoperative seromas. An abscess could have a similar appearance. - vanco and Zosyn (08/17) - Rocephin (08/17 - present) - Rocephin stop date 10/07/17 - Comgmt with ID & Podiatry - Pt had a previous outpt culture taken on 08/11 which grew out Enterobacter cloacae - Right posterior Achilles incision and drainage 08/24/[address] Hull - Intraoperative wound Cx (08/24) --> Enterobacter cloacae - Plan to DC to SNF/rehab following hospitalization to ensure non-weight bearing of RLE and good recovery. Pt at risk for Right BKA. - The case was discussed with [facility]CP. Copay for SNF was defaulted. CM consulted. Pt agreeable for SNF but need to get accepting facility - Pt not ready for dc yet - Discussed dc abx with ID. orders written continue PT efforts. weight bear instruction per podiatry. ?pt says he may go home instead of snf upon dc Volume overload Anasarca/edema Nephrotic range proteinuria - Pt was moved to ICU after Halicat and hypoxia on 08/31. Pt had received small dose of morphine a few hrs before the event. He was refusing bipap but now agreeable. Pt being followed by Dr Sawyer. - He continues with severe anasarca/lower ext edema and scrotal swelling. Also he has sleep apnea/hypoventilation and has hypoalbuminemia. - Procardia lowered to 30mg BID on 08/31, BP is stable. - Had right heart cath on last admission revealing increased right heart pressure. He has also some mild systolic dysfunction with EF 45% - comgmt with Nephrology - Pt continues to exhibit significant clinical volume overload and is NOT yet ready for discharge. - Medical team/Nephrology has been trying to diurese pt for several weeks. - Pt has been tried on IV lasix, IV bumex, and bumex gtt. Pt had good urine output, but did NOT make any significant clinical improvement. - nephrology recommending renal bx to evaluate for FSGS once patient stable. Unable to stop ASA/palvix at this time. - restrict fluids to 1.5 liters daily - - VasCath (09/19/17) - Pt had first HD 09/19, 09/20, 09/21, and 09/23, 09/26 - further HD today per Nephrology. discussed with Dr Steele. hopefully be able to stop HD before dc but outpt HD not excluded. - unable to get kidney bx until probably Nov. after 6m of asa/plavix for little in rca. - left leg rolanda wrapping ordered. HD held. iv bumex resumed on 09/29... discussed with dr Steele. convert bumex to po.. if swelling still under control then dc home on Tuesday. f/u office. LISS BUN 37, creatintine 1.44, GFR 53 (09/21/17) -> BUN 57, creatinine 3.51, GFR 19 (09/23/17) Cr 3.0 (09/24), 3.55 (09/25) Avoid nephrotoxins including aminoglycosides and IV contrast Monitor urinary output and BMP Obesity hypoventilation syndrome Hypercapnic respiratory insufficiency Obesity hypoventilation syndrome COPD - 2-D echocardiogram 07/23/17: - The left ventricular systolic function is mildly reduced with an estimated ejection fraction in the range of 45- 50%. - Mild infero-posterior hypokinesis - Mild concentric left ventricular hypertrophy. - The left atrial size is moderately dilated. - RHC completed (07/28) --> Class 2 Pulm HTN, PCW 23 - No Right heart strain, so sildenafil was stopped - Pt is noncompliant with CPAP - Pt sedated overnight - decrease flexeril to 5mg q8h prn - decrease norco to q6h prn - encourage pt to wear CPAP at night. COPD (chronic obstructive pulmonary disease) - chronic does not appear to be in acute exacerbation - Pt requiring 2L O2 - CXR (09/22) --> venous congestion - IS - tessalon pearles prn cough - observe Diabetes - Cont OHA and SSI. basal levemir titrate up HTN (hypertension) - cont current BP meds, Cozaar 50mg q12H, Hydralazine 50mg TID, Coreg 25mg BID - May try to lower or stop Procardia. - Hydralazine PO PRN Anemia - Pts H/H has slowly been declining. No noted active GIB - During the last admission the pt was transfused with 2 units PRBCs (08/10) - During recent admission pt underwent evaluation with EGD/Colonoscopy (08/11/17 ) with Dr. Mccormick - int/ext hemorrhoids - sigmoid diverticulosis - esophagitis - gastric biopsies taken, results pending - Repeat labs on 08/21/17 with Hgb 8.3/Hct 24.6 -> 7.7/23.5 (08/24) -> 7.8/24.2, 7.6 (08/27), 8.5 (08/28), 7.7 (09/07), 7.9 (09/08) - Hg 7.9 (09/10) - Iron studies 08/08/17 Iron 26, TIBC 244, % saturation 10.7, ferritin 246 - ferritin 154 (08/27), retic 82 (08/27); b12 515, folate 7.9 (08/26) - case informally d/w Hematology - since ferritin > 100, unlikely d/t ANAHI - 2 units PRBCs (08/27/17) - Hg 7.2 (09/20/17) - transfused 2 units PRBCs 09/20 - Hgb 9.1 (09/21), Hg 8.3 (09/24) CAD (coronary artery disease) Recent history of pulmonary embolism - Patient had a PE approximately 8 months ago and was on Coumadin for until the cardiac cauterization 06/17/17 - Patient with recent cardiac catheterization with PCI 06/17/17 - After catheterization patient's Coumadin was DC'd and he was started on Aspirin and Plavix - Continue patient's Aspirin 81 mg daily, Plavix 75 mg PO daily, Atorvastatin 40 mg PO QHS and Coreg BID Anxiety and depression - Cont. Paxil 20mg daily (1) Rupture of right Achilles tendon Qualifiers: Encounter type: subsequent encounter Qualified Code(s): S86.011D - Strain of right Achilles tendon, subsequent encounter
--- NOTE | 2017-10-03 15:28 | P.PNNP ---
Subjective Interval history: Patient denies nausea, vomiting, diarrhea, fever, chills chest pain and dyspnea- -Patient wishing to be discharged as soon as possible;Scrotal edema and lower extremity has subsided REVIEW OF SYSTEMS: GENERAL: POSITIVE for fatigue. Eyes: Negative for eye pain. ENT: Negative for earache RESP: Negative for cough. CV: negative for chest pain. Positive for edema both lower extremities and scrotum GI: Negative for abdominal pain. -MALE:Negative for hematuria Musculoskeletal: Negative for joint pain BACK: No Pain SKIN: Negative for rash. NEURO: Negative for seizures. PSYCHE: Negative for depression. Lymph: No Lymph node enlargement Physical Exam Vital signs: Vital Signs 10/02/17 16:00 10/02/17 17:00 10/02/17 20:00 Temperature 98.4 F 98 F Pulse Rate 80 98 H Respiratory Rate 18 20 20 Blood Pressure 133/84 138/72 Pulse Oximetry 98 96 10/03/17 00:00 10/03/17 00:34 10/03/17 04:00 Temperature 98 F 98 F Pulse Rate 84 83 Respiratory Rate 20 20 18 Blood Pressure 134/76 146/70 H Pulse Oximetry 95 97 10/03/17 07:42 10/03/17 08:00 10/03/17 12:00 Temperature 97.8 F 98.6 F Pulse Rate 82 100 H Respiratory Rate 12 18 Blood Pressure 122/67 110/80 Pulse Oximetry 98 97 97 10/03/17 14:18 10/03/17 15:00 10/03/17 15:05 Temperature 97.9 F Pulse Rate 76 Respiratory Rate 12 14 Blood Pressure 110/64 Pulse Oximetry 95 97 Intake & Output 10/02/17 10/03/17 10/03/17 18:59 06:59 18:59 Intake Total 900 / 900 910 / 910 Output Total 2400 / 2400 2500 / 2500 Balance -1500 / -1500 -1590 / -1590 Weight 172.7 kg 173.9 kg Intake: IV 100 / 100 Rocephin Inj 2,000 MG In NS Inj 100 / 100 100 ML @ 200 mls/hr IV.SIG Q24H [facility] Rx#:[id number] Oral 900 / 900 810 / 810 Output: Urine 2400 / 2400 2500 / 2500 Other: # Voids 5 4 Date of Last Bowel Movement 10/02/17 10/02/1710/03/18 Narrative: Examination : GENERAL APPEARANCE: in no acute distress. HEENT:: normocephalic, atraumatic NECK :no cervical lymphadenopathy. ORAL CAVITY: mucosa moist. CHEST:normal SKIN: no suspicious lesions. HEART: no murmurs. LUNGS: clear to auscultation bilaterally. BREASTS: not examined. ABDOMEN: soft, nontender. BACK: No paraspinal muscle spasm. MALE GENITOURINARY: not examined. MUSCULOSKELETAL: normal. EXTREMITIES: 2+ edema FOOT EXAM : PERIPHERAL PULSES: normal. NEUROLOGIC: nonfocal. PSYCH: normal. Assessment and Plan - Assessment (1) Acute kidney injury superimposed on chronic kidney disease Code(s): N17.9 - Acute kidney failure, unspecified; N18.9 - Chronic kidney disease, unspecified Status: Acute - Plan Patient has Nephrotic Proteinuria with Anasarca. Will need Renal Biopsy but now on ASA and Plavix, will need to delay the Kidney Biopsy for now. #: N17.9 : Acute kidney injury-with nephrotic range proteinuria and anasarca DISCUSSION: Exact etiology is under investigation renal biopsy would be necessary; when permitted by ability to draw anticoagulants PLAN/RECOMMENDATIONS: --Avoid renal insults such as nonsteroidal anti-inflammatory drugs or other nephrotoxins, intravenous contrast, gadolinium --Avoid hypovolemia, hypotension --Serial laboratory studies --Monitor intake and output Hemodialysis started on 09/19, currently taken off of hemodialysis, since patient has excellent urine output Discontinue IV Bumex and begin p.o. Bumex and monitor renal function and urine output closely
--- NOTE | 2017-10-03 19:57 | P.PNPL ---
Subjective Interval history: 47 YOWM with Achelis tendon repair,JUDY,COPD Has huge scrotal swelling Diureasing Feels swelling decreasing Breathing better Physical Exam Vital signs: Vital Signs 10/02/17 20:00 10/03/17 00:00 10/03/17 00:34 Temperature 98 F 98 F Pulse Rate 98 H 84 Respiratory Rate 20 20 20 Blood Pressure 138/72 134/76 Pulse Oximetry 96 95 10/03/17 04:00 10/03/17 07:42 10/03/17 08:00 Temperature 98 F 97.8 F Pulse Rate 83 82 Respiratory Rate 18 12 Blood Pressure 146/70 H 122/67 Pulse Oximetry 97 98 97 10/03/17 12:00 10/03/17 14:18 10/03/17 15:00 Temperature 98.6 F Pulse Rate 100 H Respiratory Rate 18 12 Blood Pressure 110/80 Pulse Oximetry 97 95 10/03/17 15:05 Temperature 97.9 F Pulse Rate 76 Respiratory Rate 14 Blood Pressure 110/64 Pulse Oximetry 97 Intake & Output 10/03/17 10/03/17 10/04/17 06:59 18:59 06:59 Intake Total 910 / 910 1100 / 1100 Output Total 2500 / 2500 Balance -1590 / -1590 1100 / 1100 Weight 173.9 kg Intake: IV 100 / 100 Rocephin Inj 2,000 MG In NS Inj 100 / 100 100 ML @ 200 mls/hr IV.SIG Q24H [facility] Rx#:[id number] Oral 810 / 810 400 / 400 Other 700 / 700 Output: Urine 2500 / 2500 Other: # Voids 4 Date of Last Bowel Movement 10/02/17 10/03/17 GENERAL: WBWN WM,NAD SKIN: Warm and dry. HEAD: Normocephalic. EYES: No scleral icterus. No injection or drainage. NECK: Supple, trachea midline. No JVD or lymphadenopathy. CARDIOVASCULAR: Regular rate and rhythm without murmurs, gallops, or rubs. RESPIRATORY: Breath sounds equal bilaterally. No accessory muscle use. GASTROINTESTINAL: Abdomen soft, non-tender, nondistended. MUSCULOSKELETAL: No cyanosis, ++ edema. BACK: Nontender without obvious deformity. No CVA tenderness. Assessment and Plan - Plan IMPRESSION: 1. Hypercapnic respiratory insufficiency. 2. Chronic obstructive pulmonary disease. 3. Obstructive sleep apnea. 4. Achilles tendon repair and leg infection. 5. Diabetes mellitus. 5. Scrotal edema. PLAN: Duonebs q 6 hrs Supplement 02 Encourage to use CPAP at night SQ Lovenox Stable from Pulm standpoint DW Pt and his .
[2017-10-03] MEDS: Enoxaparin Inj 40 MG/0.4 ML Syringe SQ SCH (22:21)
[2017-10-04] MEDS: LORazepam 0.5 MG Tablet PO PRN ×3 (04:17→16:30)
[2017-10-04] MEDS: oxyCODONE/Acetaminophen 10/325 Tablet PO PRN ×2 (04:17→10:36)
[2017-10-04] MEDS: Gabapentin 300 MG Capsule PO SCH ×3 (05:42→23:03)
[2017-10-04 08:29] LABS: Baso # (Auto) 0.1 th/mm3 (0.0-0.2); Baso % (Auto) 1.3 % (0.0-2.0); Eos # (Auto) 0.2 th/mm3 (0.0-0.4); Eos % (Auto) 5.6 % (0.0-4.0); Hematocrit 23.9 % (39.0-51.0); Hemoglobin 7.9 gm/dL (13.0-17.0); Lymph # (Auto) 0.8 th/mm3 (1.0-4.8); Lymph % (Auto) 18.1 % (9.0-44.0); Mean Corpuscular HGB Conc 33.2 % (32.0-36.0); Mean Corpuscular Volume 81.4 fL (80.0-100.0); Mean Platelet Volume 6.8 fL (7.0-11.0); Mono # (Auto) 0.7 th/mm3 (0.0-0.9); Mono % (Auto) 15.7 % (0.0-8.0); Neut # (Auto) 2.6 th/mm3 (1.8-7.7); Neut % (Auto) 59.3 % (16.0-70.0); Platelet Count 211 th/mm3 (150-450); Red Blood Count 2.94 mil/mm3 (4.50-5.90); Red Cell Distribution Width 16.1 % (11.6-17.2); White Blood Count 4.3 th/mm3 (4.0-11.0)
[2017-10-04 08:43] LABS: Alanine Aminotransferase 49 U/L (12-78); Anion Gap 4 meq/L (5-15); Aspartate Aminotransferase 37 U/L (15-37); Blood Urea Nitrogen 42 mg/dL (7-18); Calcium 8.6 mg/dL (8.5-10.1); Carbon Dioxide 33.7 meq/L (21.0-32.0); Chloride 100 meq/L (98-107); Glomerular Filtration Rate 60 mL/min (>89); Glucose,Random 103 mg/dL (74-106); Magnesium 1.7 mg/dL (1.5-2.5); Phosphorus 4.1 mg/dL (2.5-4.9); Potassium 5.2 meq/L (3.5-5.1); Sodium 138 meq/L (136-145)
[2017-10-04 08:46] LABS: Alkaline Phosphatase 348 U/L (45-117); Total Protein 6.7 g/dL (6.4-8.2)
[2017-10-04] MEDS: hydrALAZINE 25 MG Tablet PO SCH ×3 (10:17→17:30)
[2017-10-04] MEDS: Benzonatate 100 MG Capsule PO PRN (10:18)
[2017-10-04] MEDS: Glimepiride 4 MG Tablet PO SCH ×2 (10:18→17:30)
[2017-10-04] MEDS: Carvedilol 12.5 MG Tablet PO SCH ×2 (10:18→23:06)
[2017-10-04] MEDS: Senna/Docusate Sodium 8.6/50 MG Tablet PO SCH ×2 (10:18→23:04)
[2017-10-04] MEDS: Allopurinol 100 MG Tablet PO SCH (10:19)
[2017-10-04] MEDS: Heparin Central Flush 100 UNIT/ML 5 ML Vial IV.FLUSH SCH (10:20)
[2017-10-04] MEDS: Insulin Detemir Inj 1,000 UNIT/10 ML Vial SQ SCH ×2 (10:20→23:08)
[2017-10-04] MEDS: Insulin NovoLOG Aspart Correctional Sugar Inj SQ SCH ×4 (10:20→23:13)
[2017-10-04] MEDS: Lactic Acid (Ammonium Lactate) 12% Lotion 225 GM Bottle TOPICAL SCH ×2 (10:20→23:09)
--- NOTE | 2017-10-04 13:28 | P.PNIM ---
Subjective Interval history: Pt sleeping when I entered his room at 1PM. Pt voices NO new complaints. Physical Exam Vital signs: 10/04/17 08:00 10/04/17 11:55 Temperature 97.9 F 98.2 F Pulse Rate 85 77 Respiratory Rate 14 12 Blood Pressure 139/76 127/82 Pulse Oximetry 99 98 Narrative: GENERAL: This is a well-nourished, well-developed patient, in no apparent distress. CARDIOVASCULAR: Regular rate and rhythm without murmurs, gallops, or rubs. RESPIRATORY: Clear to auscultation. Breath sounds equal bilaterally. No wheezes , rales, or rhonchi. GASTROINTESTINAL: Abdomen soft, non-tender, nondistended. Normal active bowel sounds MUSCULOSKELETAL: 1+ LE edema s b/l and edema at flanks. Overall edema is much improved from mid-August. scrotal edema present but improved from 1 month prior, less tense. NEURO: Alert & Oriented x4 to person, place, time, situation. Moves all ext x4 Results - Labs CBC & Chem 7: 10/04/17 07:22 10/06/17 07:17 Laboratory Results - last 24 hr 10/03/17 10/04/17 10/04/17 21:51 07:22 07:22 WBC 4.3 RBC 2.94 L Hgb 7.9 L Hct 23.9 L MCV 81.4 MCH 27.0 MCHC 33.2 RDW 16.1 Plt Count 211 MPV 6.8 L Neut % (Auto) 59.3 Lymph % (Auto) 18.1 Swain % (Auto) 15.7 H Eos % (Auto) 5.6 H Baso % (Auto) 1.3 Neut # (Auto) 2.6 Lymph # (Auto) 0.8 L Swain # (Auto) 0.7 Eos # (Auto) 0.2 Baso # (Auto) 0.1 WBC Differential . Differential Comment Auto diff final Sodium 138 Potassium 5.2 H Chloride 100 Carbon Dioxide 33.7 H Anion Gap 4 L BUN 42 H Creatinine 1.29 Estimated GFR 60 L POC Glucose 225 H Random Glucose 103 Calcium 8.6 Phosphorus 4.1 Magnesium 1.7 Total Bilirubin 0.2 AST 37 ALT 49 Alkaline Phosphatase 348 H Total Protein 6.7 Albumin 3.0 L 10/04/17 10:13 WBC RBC Hgb Hct MCV MCH MCHC RDW Plt Count MPV Neut % (Auto) Lymph % (Auto) Swain % (Auto) Eos % (Auto) Baso % (Auto) Neut # (Auto) Lymph # (Auto) Swain # (Auto) Eos # (Auto) Baso # (Auto) WBC Differential Differential Comment Sodium Potassium Chloride Carbon Dioxide Anion Gap BUN Creatinine Estimated GFR POC Glucose 87 Random Glucose Calcium Phosphorus Magnesium Total Bilirubin AST ALT Alkaline Phosphatase Total Protein Albumin - Procedures Right posterior Achilles incision and drainage 08/24/[address] Della Dhillon placement by Dr. Vasquez 09/19/17 Assessment and Plan - Assessment (1) Rupture of right Achilles tendon Code(s): S86.011A - Strain of right Achilles tendon, initial encounter Status : Acute Plan: Open Achilles rupture, right - Recent admission with Achilles rupture - Pt underwent open repair of right Achilles tendon rupture with flexor hallucis longus tendon transfer and gastrocnemius recession, right lower extremity on 07/24/[address] Murillo. - Per podiatry, pt will need to be strict non-weight bearing for 6-8 weeks. - Pt was noted to have increased swelling and pain in the RLE on 08/04 - LE Doppler US (08/04) --> Is negative for DVT - Refused dc to snf and was noncompliant with weight bearing instructions. - Pt was readmitted with infection at operative site on 08/16 - He was seen by podiatry in clinic on 08/16 and sent to ED - MRI right ankle (08/16): 1. Postoperative change at the distal Achilles and calcaneus. Increased signal within the posterior calcaneus can all be consistent with postoperative change. It would be difficult to rule out osteomyelitis. 2. Fluid seen around the Achilles tendon. More superiorly in the mid lower leg, there is a larger fluid collection with peripheral enhancement. There is also a thinner fluid collection seen more superiorly in the proximal lower leg around the lateral aspect of the soleus muscle. These fluid collections could be postoperative seromas. An abscess could have a similar appearance. - vanco and Zosyn (08/17) - Rocephin (08/17 - present) - Rocephin stop date 10/07/17 - Comgmt with ID & Podiatry - Pt had a previous outpt culture taken on 08/11 which grew out Enterobacter cloacae - Right posterior Achilles incision and drainage 08/24/[address] Hull - Intraoperative wound Cx (08/24) --> Enterobacter cloacae - Plan to DC to SNF/rehab following hospitalization to ensure non-weight bearing of RLE and good recovery. Pt at risk for Right BKA. - The case was discussed with [facility]CP. Copay for SNF was defaulted. CM consulted. Pt agreeable for SNF but need to get accepting facility - Pt not ready for dc yet - Discussed dc abx with ID. orders written continue PT efforts. weight bear instruction per podiatry. Pt refusing SNF. - I disagree with pt's choice, but pt is adamant that he will go home after discharge - will arrange for HHC and home PT - request walk test for possible home oxygen - Requested that nursing get pt OOB to chair - Requested re-evaluation by PT - anticipate d/c to home in next 1-3 days. - Pt is high risk for readmission - will decrease percocet to 7.5mg & decrease ativan to q8h prn Volume overload Anasarca/edema Nephrotic range proteinuria - Pt was moved to ICU after Halicat and hypoxia on 08/31. Pt had received small dose of morphine a few hrs before the event. He was refusing bipap but now agreeable. Pt being followed by Dr Sawyer. - He continues with severe anasarca/lower ext edema and scrotal swelling. Also he has sleep apnea/hypoventilation and has hypoalbuminemia. - Procardia lowered to 30mg BID on 08/31, BP is stable. - Had right heart cath on last admission revealing increased right heart pressure. He has also some mild systolic dysfunction with EF 45% - comgmt with Nephrology - Pt continues to exhibit significant clinical volume overload and is NOT yet ready for discharge. - Medical team/Nephrology has been trying to diurese pt for several weeks. - Pt has been tried on IV lasix, IV bumex, and bumex gtt. Pt had good urine output, but did NOT make any significant clinical improvement. - nephrology recommending renal bx to evaluate for FSGS once patient stable. Unable to stop ASA/palvix at this time. - restrict fluids to 1.5 liters daily - - VasCath (09/19/17) - Pt had first HD 09/19, 09/20, 09/21, and 09/23, 09/26 - further HD today per Nephrology. discussed with Dr Steele. hopefully be able to stop HD before dc but outpt HD not excluded. - unable to get kidney bx until probably Nov. after 6m of asa/plavix for little in rca. - left leg rolanda wrapping ordered. - now on PO bumex - if swelling still under control then dc home on Tuesday. f/u office with Dr. Steele. LISS BUN 37, creatintine 1.44, GFR 53 (09/21/17) -> BUN 57, creatinine 3.51, GFR 19 (09/23/17) Cr 3.0 (09/24), 3.55 (09/25) Avoid nephrotoxins including aminoglycosides and IV contrast Monitor urinary output and BMP Obesity hypoventilation syndrome Hypercapnic respiratory insufficiency Obesity hypoventilation syndrome COPD - 2-D echocardiogram 07/23/17: - The left ventricular systolic function is mildly reduced with an estimated ejection fraction in the range of 45- 50%. - Mild infero-posterior hypokinesis - Mild concentric left ventricular hypertrophy. - The left atrial size is moderately dilated. - RHC completed (07/28) --> Class 2 Pulm HTN, PCW 23 - No Right heart strain, so sildenafil was stopped - Pt is noncompliant with CPAP - Pt sedated overnight - decrease flexeril to 5mg q8h prn - decrease norco to q6h prn - encourage pt to wear CPAP at night. COPD (chronic obstructive pulmonary disease) - chronic does not appear to be in acute exacerbation - Pt requiring 2L O2 - CXR (09/22) --> venous congestion - IS - tessalon pearles prn cough - observe Diabetes - Cont OHA and SSI. basal levemir titrate up HTN (hypertension) - cont current BP meds, Cozaar 50mg q12H, Hydralazine 50mg TID, Coreg 25mg BID - May try to lower or stop Procardia. - Hydralazine PO PRN Anemia - Pts H/H has slowly been declining. No noted active GIB - During the last admission the pt was transfused with 2 units PRBCs (08/10) - During recent admission pt underwent evaluation with EGD/Colonoscopy (08/11/17 ) with Dr. Mccormick - int/ext hemorrhoids - sigmoid diverticulosis - esophagitis - gastric biopsies taken, results pending - Repeat labs on 08/21/17 with Hgb 8.3/Hct 24.6 -> 7.7/23.5 (08/24) -> 7.8/24.2, 7.6 (08/27), 8.5 (08/28), 7.7 (09/07), 7.9 (09/08) - Hg 7.9 (09/10) - Iron studies 08/08/17 Iron 26, TIBC 244, % saturation 10.7, ferritin 246 - ferritin 154 (08/27), retic 82 (08/27); b12 515, folate 7.9 (08/26) - case informally d/w Hematology - since ferritin > 100, unlikely d/t ANAHI - 2 units PRBCs (08/27/17) - Hg 7.2 (09/20/17) - transfused 2 units PRBCs 09/20 - Hgb 9.1 (09/21), Hg 8.3 (09/24) CAD (coronary artery disease) Recent history of pulmonary embolism - Patient had a PE approximately 8 months ago and was on Coumadin for until the cardiac cauterization 06/17/17 - Patient with recent cardiac catheterization with PCI 06/17/17 - After catheterization patient's Coumadin was DC'd and he was started on Aspirin and Plavix - Continue patient's Aspirin 81 mg daily, Plavix 75 mg PO daily, Atorvastatin 40 mg PO QHS and Coreg BID Anxiety and depression - Cont. Paxil 20mg daily (1) Rupture of right Achilles tendon Qualifiers: Encounter type: subsequent encounter Qualified Code(s): S86.011D - Strain of right Achilles tendon, subsequent encounter
--- NOTE | 2017-10-04 15:06 | P.PNNP ---
Subjective Interval history: Patient denies nausea, vomiting, diarrhea, fever, chills chest pain and dyspnea , release of less edema in the scrotum and both ankles, somewhat concerned about not having received sufficient physical therapy and persistent weakness, making his discharge less than optimal, requesting more physical therapy HPI:This is a 47-year-old male with a past medical history of hypertension, chronic obstructive pulmonary disease, morbid obesity, history of sleep apnea, diabetes mellitus, hyperlipidemia, depression, generalized edema, who came to the hospital with complaint of right ankle infection. I was called to see the patient because of increase in the creatinine to 1.3 now. The patient has a history of acute kidney injury when he was here last month. I saw him at that time and he was on Lasix and his creatinine decreased 1.0 and I signed off at that time. The patient was readmitted and he was treated for a right ankle infection and he developed respiratory failure and he was transferred to the intensive care unit. He is currently with nasal cannula. His breathing is slightly better. He denies any chest pain. No nausea or vomiting. He has more swelling in the scrotum and also has increased leg swelling. He has been off and on getting diuretics. PAST MEDICAL HISTORY: Hypertension, diabetes, hyperlipidemia, morbid obesity, neuropathy, depression, sleep apnea PAST SURGICAL HISTORY: Right ankle surgery with Achilles rupture, thigh abscess in the fissure surgery SOCIAL HISTORY: Patient is prior history of smoking negative for alcohol use FAMILY HISTORY: Noncontributory ALLERGY HISTORY: As per chart MEDS: As per chart TEST RESULTS: CARDIOPULMONARY: RADIOLOGIC: LABORATORY: Today's potassium is normal and creatinine is stable at 1.27 HEALTH MAINTENANCE-: Defer to hospitalist/primary care team PROCEDURES: REVIEW OF SYSTEMS: GENERAL: Negative for fatigue. Eyes: Negative for eye pain. ENT: Negative for earache RESP: Negative for cough. CV: negative for chest pain. Lower extremity and scrotal edema which has subsided GI: Negative for abdominal pain. -MALE:Negative for hematuria Musculoskeletal: Negative for joint pain BACK: No Pain SKIN: Negative for rash. NEURO: Negative for seizures. Leg weakness PSYCHE: Negative for depression. Lymph: No Lymph node enlargement Physical Exam Vital signs: Vital Signs 10/03/17 15:00 10/03/17 15:05 10/03/17 20:00 Temperature 97.9 F 98.2 F Pulse Rate 76 86 Respiratory Rate 12 14 16 Blood Pressure 110/64 138/72 Pulse Oximetry 97 97 10/04/17 00:00 10/04/17 04:00 10/04/17 08:00 Temperature 98.1 F 98 F 97.9 F Pulse Rate 88 86 85 Respiratory Rate 4 L 16 14 Blood Pressure 147/75 H 151/73 H 139/76 Pulse Oximetry 96 98 99 10/04/17 11:55 10/04/17 14:07 Temperature 98.2 F 98.7 F Pulse Rate 77 82 Respiratory Rate 12 18 Blood Pressure 127/82 124/80 Pulse Oximetry 98 97 Intake & Output 10/03/17 10/04/17 10/04/17 18:59 06:59 18:59 Intake Total 1100 / 1100 1300 / 1300 Output Total 2100 / 2100 Balance 1100 / 1100 -800 / -800 Weight 171.8 kg Intake: Oral 400 / 400 600 / 600 Other 700 / 700 700 / 700 Output: Urine 2099 / 2100 Other: Date of Last Bowel Movement 10/03/17 10/03/17 10/04/17 Narrative: GENERAL: This is a well-nourished, well-developed patient, in no apparent distress. CARDIOVASCULAR: Regular rate and rhythm without murmurs, gallops, or rubs. RESPIRATORY: Clear to auscultation. Breath sounds equal bilaterally. No wheezes , rales, or rhonchi. GASTROINTESTINAL: Abdomen soft, non-tender, nondistended. Normal active bowel sounds MUSCULOSKELETAL: 1+ LE edema s b/l and edema at flanks. Overall edema is much improved from mid-August. scrotal edema present but improved from 1 month prior, less tense. NEURO: Alert & Oriented x4 to person, place, time, situation. Moves all ext x4 Assessment and Plan - Assessment (1) Acute kidney injury superimposed on chronic kidney disease Code(s): N17.9 - Acute kidney failure, unspecified; N18.9 - Chronic kidney disease, unspecified Status: Acute Plan: #: N17.9 : Acute kidney injury- DISCUSSION: Exact etiology is under investigation PLAN/RECOMMENDATIONS: --Avoid renal insults such as nonsteroidal anti-inflammatory drugs or other nephrotoxins, intravenous contrast, gadolinium --Avoid hypovolemia, hypotension --Serial laboratory studies after initial studies such as renal failure index --Monitor intake and output #: N18.9 :chronic kidney disease-patient has chronic kidney disease, and has undergone workup to elucidate his etiology DISCUSSION: --- Exact etiology is under investigation PLAN/RECOMMENDATIONS: :CKD-Avoid renal insults, such as nonsteroidal anti-inflammatory drugs or Kramer 2 inhibitors, avoid intravenous contrast, optimize secondary factors causing chronic kidney disease, such as hypertension or diabetes, if relevant, serial monitoring of labs and kidney function. Further workup and therapy predicated on patient's clinical course --Cleared from nephrology standpoint, for discharge --Suggest nephrology follow-up as an outpatient shortly after discharge - Plan #: OTHER PROBLEMS: Areas of anasarca, sleep apnea, respiratory failure, anemia, morbid obesity, right ankle infection, history of diabetesHistory of hyperlipidemia history of hypertension neuropathy status post ankle surgery depression and sleep apnea PLAN:
--- NOTE | 2017-10-04 16:58 | P.PNPOD ---
Subjective Interval history: Patient is unable to wear the CAM boot at this time do to swelling. He is not cleared for unprotected WBing at this though. Suggest discharge non weightbearing in a posterior splint with anti coagulants (lovenox) and f/u with . [employer] consulted for posterior splint. Physical Exam Vital signs: Vital Signs 10/03/17 20:00 10/04/17 00:00 10/04/17 04:00 Temperature 98.2 F 98.1 F 98 F Pulse Rate 86 88 86 Respiratory Rate 16 4 L 16 Blood Pressure 138/72 147/75 H 151/73 H Pulse Oximetry 97 96 98 Pulse Oximetry [Exertion on Room Air] Pulse Oximetry [Resting on Room Air] 10/04/17 08:00 10/04/17 11:55 10/04/17 14:07 Temperature 97.9 F 98.2 F 98.7 F Pulse Rate 85 77 82 Respiratory Rate 14 12 18 Blood Pressure 139/76 127/82 124/80 Pulse Oximetry 99 98 97 Pulse Oximetry [Exertion on Room Air] Pulse Oximetry [Resting on Room Air] 10/04/17 16:00 Temperature Pulse Rate Respiratory Rate Blood Pressure Pulse Oximetry Pulse Oximetry [Exertion on Room Air] 96 Pulse Oximetry [Resting on Room Air] 94 L Intake & Output 10/03/17 10/04/17 10/04/17 18:59 06:59 18:59 Intake Total 1100 / 1100 1300 / 1300 550 / 550 Output Total 2100 / 2100 1000 / 1000 Balance 1100 / 1100 -800 / -800 -450 / -450 Weight 171.8 kg Intake: Oral 400 / 400 600 / 600 550 / 550 Other 700 / 700 700 / 700 Output: Urine 2099 / 2100 1000 / 1000 Other: Date of Last Bowel Movement 10/03/17 10/03/17 10/04/17 Medications and Allergies Active Medications: Active Medications Acetaminophen (Tylenol) 650 mg PO UNSCH PRN PRN Reason: SEE LABEL COMMENTS Al Hydroxide/Mg Hydroxide (Milk Of [place]ar Liq) 30 ml PO Q12H PRN PRN Reason: MILD CONSTIPATION Albuterol (Duoneb Neb (Prn)) 1 ampul NEB Q2HR NEB PRN PRN Reason: DYSPNEA Last Admin: 09/27/17 21:57 Dose: 1 ampul Allopurinol (Zyloprim) 100 mg PO DAILY [facility] Last Admin: 10/04/17 10:19 Dose: 100 mg Aspirin (Ecotrin) 81 mg PO DAILY [facility] Last Admin: 10/04/17 10:18 Dose: 81 mg Atorvastatin Calcium (Lipitor) 40 mg PO HS [facility] Last Admin: 10/03/17 21:53 Dose: 40 mg Benzocaine/Menthol (Chloraseptic Sore Throat Lozenge) 1 lozenge BUCCAL Q2HR PRN PRN Reason: sore throat Benzonatate (Tessalon Perles) 200 mg PO Q8H PRN PRN Reason: COUGH Last Admin: 10/04/17 10:18 Dose: 200 mg Bisacodyl (Dulcolax Supp) 10 mg RECTAL DAILY PRN PRN Reason: SEVERE CONSTIPATION Bumetanide (Bumex) 2 mg PO BID@0900,1800 [facility] Last Admin: 10/04/17 10:20 Dose: 2 mg Carvedilol (Coreg) 25 mg PO BID [facility] Last Admin: 10/04/17 10:18 Dose: 25 mg Clonidine HCl (Catapres) 0.1 mg PO UNSCH PRN PRN Reason: SEE LABEL COMMENTS Clopidogrel Bisulfate (Plavix) 75 mg PO DAILY [facility] Last Admin: 10/04/17 10:19 Dose: 75 mg Cyclobenzaprine HCl (Flexeril) 5 mg PO Q8H PRN PRN Reason: MUSCLE SPASM Last Admin: 10/03/17 22:18 Dose: 5 mg Dextrose (D50w Vial) 50 ml IV.PUSH UNSCH PRN PRN Reason: PER HYPOGLYCEMIA PROTOCOL Diphenhydramine HCl (Benadryl) 25 mg PO UNSCH PRN PRN Reason: SEE LABEL COMMENTS Enoxaparin Sodium (Lovenox Inj) 40 mg SQ Q24H [facility] Last Admin: 10/03/17 22:21 Dose: 40 mg Epoetin [place] (Epogen Inj) 10,000 unit IV.PUSH UNSCH PRN PRN Reason: SEE LABEL COMMENTS Last Admin: 09/28/17 10:25 Dose: 10,000 unit Gabapentin (Neurontin) 300 mg PO Q8HR [facility] Last Admin: 10/04/17 14:09 Dose: 300 mg Gelatin (Gelfoam 12 Mm/7 Mm Topical) 1 foam TOPICAL PRN PRN PRN Reason: help stop bleeding from site Gentamicin Sulfate (Gentamicin Inj) 20 mg OTHER WITH DIALYSIS PRN PRN Reason: Dwell Gentamycin Lock Last Admin: 09/28/17 10:25 Dose: 20 mg Glimepiride (Amaryl) 4 mg PO BIDAC [facility] Last Admin: 10/04/17 10:18 Dose: 4 mg Glucagon (Glucagon Inj) 1 mg OTHER PRN PRN PRN Reason: for Hypoglycemia Protocol Heparin Sodium (Porcine) (Heparin Inj) 8,000 units OTHER WITH DIALYSIS PRN PRN Reason: for machine prime Heparin Sodium (Porcine) (Heparin Inj) 1,000 units OTHER WITH DIALYSIS PRN PRN Reason: Dwell Heparin to Fill Catheter Last Admin: 09/28/17 10:25 Dose: 1,000 units Heparin Sodium (Porcine) (Heparin Central Flush) 0 unit IV.FLUSH DAILY [facility] Last Admin: 10/04/17 10:20 Dose: 5 unit Heparin Sodium (Porcine) (Heparin Central Flush) 0 unit IV.FLUSH PRN PRN PRN Reason: Flush PICC Line Last Admin: 09/24/17 06:26 Dose: 200 unit Hydralazine HCl (Apresoline) 50 mg PO TID [facility] Last Admin: 10/04/17 14:09 Dose: 50 mg Sodium Chloride (Ns Inj) 1,000 mls @ 0 mls/hr OTHER .Q0M PRN PRN Reason: for prime and rinse back Sodium Chloride (Ns Inj) 1,000 mls @ 0 mls/hr IV.CONT .Q0M PRN PRN Reason: hypotension / volume replace Sodium Chloride (Ns Inj) 1,000 mls @ 200 mls/hr OTHER .Q5H PRN PRN Reason: for dialyzer flush PRN Ceftriaxone Sodium 2,000 mg/ (Sodium Chloride) 100 mls @ 200 mls/hr IV.SIG Q24H [facility] Last Admin: 10/03/17 22:05 Dose: 100 mls/hr Insulin Aspart (Novolog Insulin Suppl Scale Inj) 0 unit SQ ACHS [facility]; Protocol Last Admin: 10/04/17 14:08 Dose: Not Given Insulin Detemir (Levemir Inj) 30 unit SQ HS [facility] Last Admin: 10/03/17 22:06 Dose: 30 unit Insulin Detemir (Levemir Inj) 35 unit SQ DAILY [facility] Last Admin: 10/04/17 10:20 Dose: 35 unit Lactic Acid (Lac-Hydrin 12% Lotion) 1 applicatio TOPICAL BID [facility] Last Admin: 10/04/17 10:20 Dose: 1 applicatio Lactulose (Lactulose Liq) 30 ml PO DAILY PRN PRN Reason: SEVERE CONSTIPATION Lorazepam (Ativan) 0.5 mg PO Q8H PRN PRN Reason: ANXIETY Losartan Potassium (Cozaar) 50 mg PO Q12HR [facility] Last Admin: 10/04/17 10:18 Dose: 50 mg Mannitol (Mannitol Inj) 12.5 gm IV.PUSH UNSCH PRN PRN Reason: hypotension / volume replace Naloxone HCl (Narcan Inj) 0.4 mg IV.PUSH UNSCH PRN PRN Reason: SEE LABEL COMMENTS Nifedipine (Procardia Xl) 30 mg PO BID [facility] Last Admin: 10/04/17 10:18 Dose: 30 mg Nitroglycerin (Nitrostat Sl) 0.4 mg SL Q5M PRN PRN Reason: CHEST PAIN Ondansetron HCl (Zofran Inj) 4 mg IV.PUSH UNSCH PRN PRN Reason: NAUSEA OR VOMITING Ondansetron HCl (Zofran Inj) 4 mg IV.PUSH Q6H PRN PRN Reason: NAUSEA OR VOMITING Last Admin: 09/24/17 09:58 Dose: 4 mg Oxycodone/Acetaminophen (Percocet 7.5/325 Mg) 1 tab PO Q6H PRN PRN Reason: PAIN SCALE 1 TO 10 Pantoprazole Sodium (Protonix) 40 mg PO DAILY [facility] Last Admin: 10/04/17 10:17 Dose: 40 mg Paroxetine HCl (Paxil) 20 mg PO DAILY [facility] Last Admin: 10/04/17 10:18 Dose: 20 mg Senna/Docusate Sodium (Ely-Colace) 1 tab PO BID [facility] Last Admin: 10/04/17 10:18 Dose: 1 tab Sennosides (Senokot) 17.2 mg PO Q12H PRN PRN Reason: MODERATE CONSTIPATION Sodium Chloride (Ns Flush) 5 ml IV.FLUSH PRN PRN PRN Reason: flush each lumen during HD Sodium Chloride (Ns Flush) 2 ml IV.FLUSH UNSCH PRN PRN Reason: FLUSH AFTER USING IV ACCESS Last Admin: 09/03/17 08:58 Dose: 2 ml Sodium Chloride (Ns Flush) 2 ml IV.FLUSH BID [facility] Last Admin: 10/04/17 10:21 Dose: 2 ml Sodium Chloride (Ns Flush) 0 ml IV.FLUSH DAILY [facility] Last Admin: 10/04/17 10:19 Dose: 5 ml Sodium Chloride (Ns Flush) 0 ml IV.FLUSH PRN PRN PRN Reason: FLUSH AFTER USING IV ACCESS Sodium Chloride (Ns Flush) 0 ml IV.FLUSH PRN PRN PRN Reason: Flush After Blood Draws Last Admin: 09/30/17 20:16 Dose: 10 ml Temazepam (Restoril) 15 mg PO HS PRN PRN Reason: INSOMNIA Last Admin: 10/03/17 05:08 Dose: 15 mg Throat Lozenges (Chloraseptic [place]) 2 spray OROPHARYNG Q2H PRN PRN Reason: sore throat Allergies Allergy/AdvReac Type Severity Reaction Status Date / Time codeine Allergy Severe Itching Verified 08/16/17 19:14 quetiapine Allergy Intermediate Hallucinati Verified 08/16/17 19:14 ons tramadol Allergy Unknown UNKNOWN Verified 08/20/17 10:36 clonidine AdvReac Severe ARNDT, dry Verified 08/20/17 10:36 mouth, "felt drunk" lisinopril AdvReac Unknown abnormal Verified 08/16/17 19:14 labs K level Home Medications Medication Instructions Recorded Confirmed Type allopurinol 100 mg PO DAILY 08/20/17 08/20/17 History aspirin 81 mg PO DAILY 08/20/17 08/20/17 History atorvastatin 40 mg PO HS 08/20/17 08/20/17 History carvedilol 25 mg PO BID 08/20/17 08/20/17 History clindamycin HCl 300 mg PO Q6H 08/20/17 08/20/17 History clopidogrel 75 mg PO DAILY 08/20/17 08/20/17 History furosemide 40 mg PO DAILY 08/20/17 08/20/17 History gabapentin 300 mg PO Q8H 08/20/17 08/20/17 History glimepiride 2 mg PO BIDAC 08/20/17 08/20/17 History hydralazine 50 mg PO TID 08/20/17 08/20/17 History hydrocodone-acetaminophen 1 tab PO Q4H PRN 08/20/17 08/20/17 History insulin aspart U-100 [Novolog 1 sliding scale dose SUB-Q 08/20/17 08/20/17 History U-100 Insulin aspart] DIRECTED losartan 50 mg PO Q12H 08/20/17 08/20/17 History metformin 750 mg PO BID 08/20/17 08/20/17 History nifedipine 60 mg PO Q12H 08/20/17 08/20/17 History nystatin 5 ml PO QID 08/20/17 08/20/17 History pantoprazole 40 mg PO DAILY 08/20/17 08/20/17 History paroxetine HCl 20 mg PO DAILY 08/20/17 08/20/17 History Results - Labs CBC & Chem 7: 10/04/17 07:22 10/04/17 07:22 Laboratory Results - last 24 hr 10/03/17 10/04/17 10/04/17 21:51 07:22 07:22 WBC 4.3 RBC 2.94 L Hgb 7.9 L Hct 23.9 L MCV 81.4 MCH 27.0 MCHC 33.2 RDW 16.1 Plt Count 211 MPV 6.8 L Neut % (Auto) 59.3 Lymph % (Auto) 18.1 [place] % (Auto) 15.7 H Eos % (Auto) 5.6 H Baso % (Auto) 1.3 Neut # (Auto) 2.6 Lymph # (Auto) 0.8 L [place] # (Auto) 0.7 Eos # (Auto) 0.2 Baso # (Auto) 0.1 WBC Differential . Differential Comment Auto diff final Sodium 138 Potassium 5.2 H Chloride 100 Carbon Dioxide 33.7 H Anion Gap 4 L BUN 42 H Creatinine 1.29 Estimated GFR 60 L POC Glucose 225 H Random Glucose 103 Calcium 8.6 Phosphorus 4.1 Magnesium 1.7 Total Bilirubin 0.2 AST 37 ALT 49 Alkaline Phosphatase 348 H Total Protein 6.7 Albumin 3.0 L 10/04/17 10:13 WBC RBC Hgb Hct MCV MCH MCHC RDW Plt Count MPV Neut % (Auto) Lymph % (Auto) [place] % (Auto) Eos % (Auto) Baso % (Auto) Neut # (Auto) Lymph # (Auto) [place] # (Auto) Eos # (Auto) Baso # (Auto) WBC Differential Differential Comment Sodium Potassium Chloride Carbon Dioxide Anion Gap BUN Creatinine Estimated GFR POC Glucose 87 Random Glucose Calcium Phosphorus Magnesium Total Bilirubin AST ALT Alkaline Phosphatase Total Protein Albumin - Procedures Right posterior Achilles incision and drainage 08/24/[address] Della Dhillon placement by Dr. Vasquez 09/19/17 Assessment and Plan - Assessment (1) Abscess of right lower leg Code(s): L02.415 - Cutaneous abscess of right lower limb Status: Acute (2) Rupture of right Achilles tendon Code(s): S86.011A - Strain of right Achilles tendon, initial encounter Status : Acute (2) Rupture of right Achilles tendon Qualifiers: Encounter type: subsequent encounter Qualified Code(s): S86.011D - Strain of right Achilles tendon, subsequent encounter
--- NOTE | 2017-10-04 18:04 | P.PNPOD ---
Subjective Interval history: Disregard earlier note. Patients BERNADINE wraps were removed and the pneumatic CAM boot was deflated. Pt easily fit into the boot and was able to fully close it. He was able to comfortably ambulate in it for several feet. Pt is ok to d/c WBAT in CAM, disregard previous request for lovenox at discharge. Physical Exam Vital signs: Vital Signs 10/03/17 20:00 10/04/17 00:00 10/04/17 04:00 Temperature 98.2 F 98.1 F 98 F Pulse Rate 86 88 86 Respiratory Rate 16 4 L 16 Blood Pressure 138/72 147/75 H 151/73 H Pulse Oximetry 97 96 98 Pulse Oximetry [Exertion on Room Air] Pulse Oximetry [Resting on Room Air] 10/04/17 08:00 10/04/17 11:55 10/04/17 14:07 Temperature 97.9 F 98.2 F 98.7 F Pulse Rate 85 77 82 Respiratory Rate 14 12 18 Blood Pressure 139/76 127/82 124/80 Pulse Oximetry 99 98 97 Pulse Oximetry [Exertion on Room Air] Pulse Oximetry [Resting on Room Air] 10/04/17 16:00 Temperature Pulse Rate Respiratory Rate Blood Pressure Pulse Oximetry Pulse Oximetry [Exertion on Room Air] 96 Pulse Oximetry [Resting on Room Air] 94 L Intake & Output 10/03/17 10/04/17 10/04/17 18:59 06:59 18:59 Intake Total 1100 / 1100 1300 / 1300 550 / 550 Output Total 2100 / 2100 1000 / 1000 Balance 1100 / 1100 -800 / -800 -450 / -450 Weight 171.8 kg Intake: Oral 400 / 400 600 / 600 550 / 550 Other 700 / 700 700 / 700 Output: Urine 2100 / 2100 1000 / 1000 Other: Date of Last Bowel Movement 10/03/17 10/03/17 10/04/17 Medications and Allergies Active Medications: Active Medications Acetaminophen (Tylenol) 650 mg PO UNSCH PRN PRN Reason: SEE LABEL COMMENTS Al Hydroxide/Mg Hydroxide (Milk Of Magnelysia Liq) 30 ml PO Q12H PRN PRN Reason: MILD CONSTIPATION Albuterol (Duoneb Neb (Prn)) 1 ampul NEB Q2HR NEB PRN PRN Reason: DYSPNEA Last Admin: 09/27/17 21:57 Dose: 1 ampul Allopurinol (Zyloprim) 100 mg PO DAILY [facility] Last Admin: 10/04/17 10:19 Dose: 100 mg Aspirin (Ecotrin) 81 mg PO DAILY [facility] Last Admin: 10/04/17 10:18 Dose: 81 mg Atorvastatin Calcium (Lipitor) 40 mg PO HS [facility] Last Admin: 10/03/17 21:53 Dose: 40 mg Benzocaine/Menthol (Chloraseptic Sore Throat Lozenge) 1 lozenge BUCCAL Q2HR PRN PRN Reason: sore throat Benzonatate (Tessalon Perles) 200 mg PO Q8H PRN PRN Reason: COUGH Last Admin: 10/04/17 10:18 Dose: 200 mg Bisacodyl (Dulcolax Supp) 10 mg RECTAL DAILY PRN PRN Reason: SEVERE CONSTIPATION Bumetanide (Bumex) 2 mg PO BID@0900,1800 [facility] Last Admin: 10/04/17 17:30 Dose: 2 mg Carvedilol (Coreg) 25 mg PO BID [facility] Last Admin: 10/04/17 10:18 Dose: 25 mg Clonidine HCl (Catapres) 0.1 mg PO UNSCH PRN PRN Reason: SEE LABEL COMMENTS Clopidogrel Bisulfate (Plavix) 75 mg PO DAILY [facility] Last Admin: 10/04/17 10:19 Dose: 75 mg Cyclobenzaprine HCl (Flexeril) 5 mg PO Q8H PRN PRN Reason: MUSCLE SPASM Last Admin: 10/03/17 22:18 Dose: 5 mg Dextrose (D50w Vial) 50 ml IV.PUSH UNSCH PRN PRN Reason: PER HYPOGLYCEMIA PROTOCOL Diphenhydramine HCl (Benadryl) 25 mg PO UNSCH PRN PRN Reason: SEE LABEL COMMENTS Enoxaparin Sodium (Lovenox Inj) 40 mg SQ Q24H [facility] Last Admin: 10/03/17 22:21 Dose: 40 mg Epoetin Hunter (Epogen Inj) 10,000 unit IV.PUSH UNSCH PRN PRN Reason: SEE LABEL COMMENTS Last Admin: 09/28/17 10:25 Dose: 10,000 unit Gabapentin (Neurontin) 300 mg PO Q8HR [facility] Last Admin: 10/04/17 14:09 Dose: 300 mg Gelatin (Gelfoam 12 Mm/7 Mm Topical) 1 foam TOPICAL PRN PRN PRN Reason: help stop bleeding from site Gentamicin Sulfate (Gentamicin Inj) 20 mg OTHER WITH DIALYSIS PRN PRN Reason: Dwell Gentamycin Lock Last Admin: 09/28/17 10:25 Dose: 20 mg Glimepiride (Amaryl) 4 mg PO BIDAC [facility] Last Admin: 10/04/17 17:30 Dose: 4 mg Glucagon (Glucagon Inj) 1 mg OTHER PRN PRN PRN Reason: for Hypoglycemia Protocol Heparin Sodium (Porcine) (Heparin Inj) 8,000 units OTHER WITH DIALYSIS PRN PRN Reason: for machine prime Heparin Sodium (Porcine) (Heparin Inj) 1,000 units OTHER WITH DIALYSIS PRN PRN Reason: Dwell Heparin to Fill Catheter Last Admin: 09/28/17 10:25 Dose: 1,000 units Heparin Sodium (Porcine) (Heparin Central Flush) 0 unit IV.FLUSH DAILY [facility] Last Admin: 10/04/17 10:20 Dose: 5 unit Heparin Sodium (Porcine) (Heparin Central Flush) 0 unit IV.FLUSH PRN PRN PRN Reason: Flush PICC Line Last Admin: 09/24/17 06:26 Dose: 200 unit Hydralazine HCl (Apresoline) 50 mg PO TID [facility] Last Admin: 10/04/17 17:30 Dose: 50 mg Sodium Chloride (Ns Inj) 1,000 mls @ 0 mls/hr OTHER .Q0M PRN PRN Reason: for prime and rinse back Sodium Chloride (Ns Inj) 1,000 mls @ 0 mls/hr IV.CONT .Q0M PRN PRN Reason: hypotension / volume replace Sodium Chloride (Ns Inj) 1,000 mls @ 200 mls/hr OTHER .Q5H PRN PRN Reason: for dialyzer flush PRN Ceftriaxone Sodium 2,000 mg/ (Sodium Chloride) 100 mls @ 200 mls/hr IV.SIG Q24H [facility] Last Admin: 10/03/17 22:05 Dose: 100 mls/hr Insulin Aspart (Novolog Insulin Suppl Scale Inj) 0 unit SQ ACHS [facility]; Protocol Last Admin: 10/04/17 14:08 Dose: Not Given Insulin Detemir (Levemir Inj) 30 unit SQ HS [facility] Last Admin: 10/03/17 22:06 Dose: 30 unit Insulin Detemir (Levemir Inj) 35 unit SQ DAILY [facility] Last Admin: 10/04/17 10:20 Dose: 35 unit Lactic Acid (Lac-Hydrin 12% Lotion) 1 applicatio TOPICAL BID [facility] Last Admin: 10/04/17 10:20 Dose: 1 applicatio Lactulose (Lactulose Liq) 30 ml PO DAILY PRN PRN Reason: SEVERE CONSTIPATION Lorazepam (Ativan) 0.5 mg PO Q8H PRN PRN Reason: ANXIETY Last Admin: 10/04/17 16:30 Dose: 0.5 mg Losartan Potassium (Cozaar) 50 mg PO Q12HR [facility] Last Admin: 10/04/17 10:18 Dose: 50 mg Mannitol (Mannitol Inj) 12.5 gm IV.PUSH UNSCH PRN PRN Reason: hypotension / volume replace Naloxone HCl (Narcan Inj) 0.4 mg IV.PUSH UNSCH PRN PRN Reason: SEE LABEL COMMENTS Nifedipine (Procardia Xl) 30 mg PO BID [facility] Last Admin: 10/04/17 10:18 Dose: 30 mg Nitroglycerin (Nitrostat Sl) 0.4 mg SL Q5M PRN PRN Reason: CHEST PAIN Ondansetron HCl (Zofran Inj) 4 mg IV.PUSH UNSCH PRN PRN Reason: NAUSEA OR VOMITING Ondansetron HCl (Zofran Inj) 4 mg IV.PUSH Q6H PRN PRN Reason: NAUSEA OR VOMITING Last Admin: 09/24/17 09:58 Dose: 4 mg Oxycodone/Acetaminophen (Percocet 7.5/325 Mg) 1 tab PO Q6H PRN PRN Reason: PAIN SCALE 1 TO 10 Last Admin: 10/04/17 16:30 Dose: 1 tab Pantoprazole Sodium (Protonix) 40 mg PO DAILY [facility] Last Admin: 10/04/17 10:17 Dose: 40 mg Paroxetine HCl (Paxil) 20 mg PO DAILY [facility] Last Admin: 10/04/17 10:18 Dose: 20 mg Senna/Docusate Sodium (Ely-Colace) 1 tab PO BID [facility] Last Admin: 10/04/17 10:18 Dose: 1 tab Sennosides (Senokot) 17.2 mg PO Q12H PRN PRN Reason: MODERATE CONSTIPATION Sodium Chloride (Ns Flush) 5 ml IV.FLUSH PRN PRN PRN Reason: flush each lumen during HD Sodium Chloride (Ns Flush) 2 ml IV.FLUSH UNSCH PRN PRN Reason: FLUSH AFTER USING IV ACCESS Last Admin: 09/03/17 08:58 Dose: 2 ml Sodium Chloride (Ns Flush) 2 ml IV.FLUSH BID [facility] Last Admin: 10/04/17 10:21 Dose: 2 ml Sodium Chloride (Ns Flush) 0 ml IV.FLUSH DAILY [facility] Last Admin: 10/04/17 10:19 Dose: 5 ml Sodium Chloride (Ns Flush) 0 ml IV.FLUSH PRN PRN PRN Reason: FLUSH AFTER USING IV ACCESS Sodium Chloride (Ns Flush) 0 ml IV.FLUSH PRN PRN PRN Reason: Flush After Blood Draws Last Admin: 09/30/17 20:16 Dose: 10 ml Temazepam (Restoril) 15 mg PO HS PRN PRN Reason: INSOMNIA Last Admin: 10/03/17 05:08 Dose: 15 mg Throat Lozenges (Chloraseptic Farner) 2 spray OROPHARYNG Q2H PRN PRN Reason: sore throat Allergies Allergy/AdvReac Type Severity Reaction Status Date / Time codeine Allergy Severe Itching Verified 08/16/17 19:14 quetiapine Allergy Intermediate Hallucinati Verified 08/16/17 19:14 ons tramadol Allergy Unknown UNKNOWN Verified 08/20/17 10:36 clonidine AdvReac Severe ARNDT, dry Verified 08/20/17 10:36 mouth, "felt drunk" lisinopril AdvReac Unknown abnormal Verified 08/16/17 19:14 labs K level Home Medications Medication Instructions Recorded Confirmed Type allopurinol 100 mg PO DAILY 08/20/17 08/20/17 History aspirin 81 mg PO DAILY 08/20/17 08/20/17 History atorvastatin 40 mg PO HS 08/20/17 08/20/17 History carvedilol 25 mg PO BID 08/20/17 08/20/17 History clindamycin HCl 300 mg PO Q6H 08/20/17 08/20/17 History clopidogrel 75 mg PO DAILY 08/20/17 08/20/17 History furosemide 40 mg PO DAILY 08/20/17 08/20/17 History gabapentin 300 mg PO Q8H 08/20/17 08/20/17 History glimepiride 2 mg PO BIDAC 08/20/17 08/20/17 History hydralazine 50 mg PO TID 08/20/17 08/20/17 History hydrocodone-acetaminophen 1 tab PO Q4H PRN 08/20/17 08/20/17 History insulin aspart U-100 [Novolog 1 sliding scale dose SUB-Q 08/20/17 08/20/17 History U-100 Insulin aspart] DIRECTED losartan 50 mg PO Q12H 08/20/17 08/20/17 History metformin 750 mg PO BID 08/20/17 08/20/17 History nifedipine 60 mg PO Q12H 08/20/17 08/20/17 History nystatin 5 ml PO QID 08/20/17 08/20/17 History pantoprazole 40 mg PO DAILY 08/20/17 08/20/17 History paroxetine HCl 20 mg PO DAILY 08/20/17 08/20/17 History Results - Labs CBC & Chem 7: 10/04/17 07:22 10/04/17 07:22 Laboratory Results - last 24 hr 10/03/17 10/04/17 10/04/17 21:51 07:22 07:22 WBC 4.3 RBC 2.94 L Hgb 7.9 L Hct 23.9 L MCV 81.4 MCH 27.0 MCHC 33.2 RDW 16.1 Plt Count 211 MPV 6.8 L Neut % (Auto) 59.3 Lymph % (Auto) 18.1 Hunt % (Auto) 15.7 H Eos % (Auto) 5.6 H Baso % (Auto) 1.3 Neut # (Auto) 2.6 Lymph # (Auto) 0.8 L Hunt # (Auto) 0.7 Eos # (Auto) 0.2 Baso # (Auto) 0.1 WBC Differential . Differential Comment Auto diff final Sodium 138 Potassium 5.2 H Chloride 100 Carbon Dioxide 33.7 H Anion Gap 4 L BUN 42 H Creatinine 1.29 Estimated GFR 60 L POC Glucose 225 H Random Glucose 103 Calcium 8.6 Phosphorus 4.1 Magnesium 1.7 Total Bilirubin 0.2 AST 37 ALT 49 Alkaline Phosphatase 348 H Total Protein 6.7 Albumin 3.0 L 10/04/17 10/04/17 10:13 17:51 WBC RBC Hgb Hct MCV MCH MCHC RDW Plt Count MPV Neut % (Auto) Lymph % (Auto) Hunt % (Auto) Eos % (Auto) Baso % (Auto) Neut # (Auto) Lymph # (Auto) Hunt # (Auto) Eos # (Auto) Baso # (Auto) WBC Differential Differential Comment Sodium Potassium Chloride Carbon Dioxide Anion Gap BUN Creatinine Estimated GFR POC Glucose 87 150 H Random Glucose Calcium Phosphorus Magnesium Total Bilirubin AST ALT Alkaline Phosphatase Total Protein Albumin - Procedures Right posterior Achilles incision and drainage 08/24/[address] Della Dhillon placement by Dr. Vasquez 09/19/17 Assessment and Plan - Assessment (1) Abscess of right lower leg Code(s): L02.415 - Cutaneous abscess of right lower limb Status: Acute (2) Rupture of right Achilles tendon Code(s): S86.011A - Strain of right Achilles tendon, initial encounter Status : Acute (2) Rupture of right Achilles tendon Qualifiers: Encounter type: subsequent encounter Qualified Code(s): S86.011D - Strain of right Achilles tendon, subsequent encounter
--- NOTE | 2017-10-04 19:08 | P.PNPL ---
Subjective Interval history: 47 YOWM with Achelis tendon repair,JUDY,COPD Has huge scrotal swelling Diureasing Feels swelling decreasing Breathing better No new complaint Physical Exam Vital signs: Vital Signs 10/03/17 20:00 10/04/17 00:00 10/04/17 04:00 Temperature 98.2 F 98.1 F 98 F Pulse Rate 86 88 86 Respiratory Rate 16 4 L 16 Blood Pressure 138/72 147/75 H 151/73 H Pulse Oximetry 97 96 98 Pulse Oximetry [Exertion on Room Air] Pulse Oximetry [Resting on Room Air] 10/04/17 08:00 10/04/17 11:55 10/04/17 14:07 Temperature 97.9 F 98.2 F 98.7 F Pulse Rate 85 77 82 Respiratory Rate 14 12 18 Blood Pressure 139/76 127/82 124/80 Pulse Oximetry 99 98 97 Pulse Oximetry [Exertion on Room Air] Pulse Oximetry [Resting on Room Air] 10/04/17 16:00 Temperature Pulse Rate Respiratory Rate Blood Pressure Pulse Oximetry Pulse Oximetry [Exertion on Room Air] 96 Pulse Oximetry [Resting on Room Air] 94 L Intake & Output 10/04/17 10/04/17 10/05/17 06:59 18:59 06:59 Intake Total 1300 / 1300 550 / 550 Output Total 2100 / 2100 1000 / 1000 Balance -800 / -800 -450 / -450 Weight 171.8 kg Intake: Oral 600 / 600 550 / 550 Other 700 / 700 Output: Urine 2100 / 2100 1000 / 1000 Other: Date of Last Bowel Movement 10/03/17 10/04/17 GENERAL: Obese WM, NAD SKIN: Warm and dry. HEAD: Normocephalic. EYES: No scleral icterus. No injection or drainage. NECK: Supple, trachea midline. No JVD or lymphadenopathy. CARDIOVASCULAR: Regular rate and rhythm without murmurs, gallops, or rubs. RESPIRATORY: Breath sounds equal bilaterally. No accessory muscle use. GASTROINTESTINAL: Abdomen soft, non-tender, nondistended. MUSCULOSKELETAL: No cyanosis, ++ edema. BACK: Nontender without obvious deformity. No CVA tenderness. Assessment and Plan - Plan IMPRESSION: 1. Hypercapnic respiratory insufficiency. 2. Chronic obstructive pulmonary disease. 3. Obstructive sleep apnea. 4. Achilles tendon repair and leg infection. 5. Diabetes mellitus. 5. Scrotal edema. PLAN: Duonebs q 6 hrs Supplement 02 Encourage to use CPAP at night SQ Lovenox Stable from Pulm standpoint
[2017-10-04] MEDS: Enoxaparin Inj 40 MG/0.4 ML Syringe SQ SCH (23:08)
[2017-10-05] MEDS: LORazepam 0.5 MG Tablet PO PRN ×2 (01:55→13:20)
[2017-10-05] MEDS: Temazepam 15 MG Capsule PO PRN (01:55)
[2017-10-05] MEDS: Gabapentin 300 MG Capsule PO SCH ×3 (07:26→21:03)
[2017-10-05] MEDS: Carvedilol 12.5 MG Tablet PO SCH ×2 (08:55→21:03)
[2017-10-05] MEDS: hydrALAZINE 25 MG Tablet PO SCH ×3 (08:55→17:27)
[2017-10-05] MEDS: Glimepiride 4 MG Tablet PO SCH ×2 (08:55→17:27)
[2017-10-05] MEDS: Insulin NovoLOG Aspart Correctional Sugar Inj SQ SCH ×4 (08:55→21:12)
[2017-10-05] MEDS: Insulin Detemir Inj 1,000 UNIT/10 ML Vial SQ SCH ×2 (08:56→21:11)
[2017-10-05] MEDS: Heparin Central Flush 100 UNIT/ML 5 ML Vial IV.FLUSH SCH (08:56)
[2017-10-05] MEDS: Senna/Docusate Sodium 8.6/50 MG Tablet PO SCH ×2 (08:56→21:03)
[2017-10-05] MEDS: Lactic Acid (Ammonium Lactate) 12% Lotion 225 GM Bottle TOPICAL SCH ×2 (08:56→20:48)
[2017-10-05] MEDS: Allopurinol 100 MG Tablet PO SCH (08:57)
--- NOTE | 2017-10-05 10:32 | P.PNNP ---
Subjective Interval history: Resting comfortably. Denies any shortness of breath, nausea, vomiting, or edema. Bilateral lower extremity edema but improving. Physical Exam Vital signs: Vital Signs 10/04/17 11:55 10/04/17 14:07 10/04/17 16:00 Temperature 98.2 F 98.7 F Pulse Rate 77 82 Respiratory Rate 12 18 Blood Pressure 127/82 124/80 Pulse Oximetry 98 97 Pulse Oximetry [Exertion on Room Air] 96 Pulse Oximetry [Resting on Room Air] 94 L 10/04/17 20:00 10/04/17 23:35 10/05/17 00:00 Temperature 97.0 F L 98.7 F Pulse Rate 81 82 Respiratory Rate 20 18 18 Blood Pressure 147/73 H 135/69 Pulse Oximetry 96 94 L Pulse Oximetry [Exertion on Room Air] Pulse Oximetry [Resting on Room Air] 10/05/17 04:00 Temperature 98.2 F Pulse Rate 78 Respiratory Rate 18 Blood Pressure 138/72 Pulse Oximetry 95 Pulse Oximetry [Exertion on Room Air] Pulse Oximetry [Resting on Room Air] Intake & Output 10/04/17 10/05/17 10/05/17 18:59 06:59 18:59 Intake Total 550 / 550 900 / 900 Output Total 1000 / 1000 3100 / 3100 Balance -450 / -450 -2200 / -2200 Weight 172.4 kg Intake: Oral 550 / 550 900 / 900 Output: Urine 1000 / 1000 3100 / 3100 Other: Date of Last Bowel Movement 10/04/17 10/05/17 # Bowel Movements 0 Narrative: GENERAL: Alert and oriented. SKIN: Warm and dry. HEAD: Normocephalic. EYES: No scleral icterus. No injection or drainage. NECK: Supple, trachea midline. No JVD or lymphadenopathy. CARDIOVASCULAR: Regular rate and rhythm without murmurs, gallops, or rubs. RESPIRATORY: Breath sounds distant bilaterally. No accessory muscle use. GASTROINTESTINAL: Abdomen soft, non-tender, nondistended. Large MUSCULOSKELETAL: No cyanosis, bilateral dependent lower extremity edema BACK: Nontender without obvious deformity. No CVA tenderness. Assessment and Plan - Assessment (1) Acute kidney injury superimposed on chronic kidney disease Code(s): N17.9 - Acute kidney failure, unspecified; N18.9 - Chronic kidney disease, unspecified Status: Acute Plan: Has Nephrotic Proteinuria with Anasarca. Will need Renal Biopsy but now on ASA and Plavix, will need to delay the Kidney Biopsy for now. Hemodialysis started on 09/19 for anasarca and then discontinues. PLAN/RECOMMENDATIONS: --Avoid renal insults such as nonsteroidal anti-inflammatory drugs or other nephrotoxins, intravenous contrast, gadolinium --Avoid hypovolemia, hypotension --Serial laboratory studies after initial studies such as renal failure index --Monitor intake and output --Continue bumex 2 mng BID --Continue fluid restriction --Low sodium diet. --Cleared from nephrology standpoint, for discharge --Suggest nephrology follow-up as an outpatient shortly after discharge
--- NOTE | 2017-10-05 19:44 | P.PNPL ---
Subjective Interval history: 47 YOWM with Achelis tendon repair,JUDY,COPD Has huge scrotal swelling Diureasing Feels swelling decreasing Breathing better No new complaint Anxious to go home Physical Exam Vital signs: Vital Signs 10/04/17 20:00 10/04/17 23:35 10/05/17 00:00 Temperature 97.0 F L 98.7 F Pulse Rate 81 82 Respiratory Rate 20 18 18 Blood Pressure 147/73 H 135/69 Pulse Oximetry 96 94 L 10/05/17 04:00 10/05/17 08:00 10/05/17 12:00 Temperature 98.2 F 98.4 F 97.6 F Pulse Rate 78 77 77 Respiratory Rate 18 14 16 Blood Pressure 138/72 128/89 142/80 H Pulse Oximetry 95 95 94 L 10/05/17 13:05 10/05/17 16:00 Temperature 98.9 F Pulse Rate 82 Respiratory Rate 14 Blood Pressure 141/71 H Pulse Oximetry 96 Intake & Output 10/05/17 10/05/17 10/06/17 06:59 18:59 06:59 Intake Total 900 / 900 700 / 700 Output Total 3100 / 3100 1800 / 1800 Balance -2200 / -2200 -1100 / -1100 Weight 172.4 kg Intake: Oral 900 / 900 700 / 700 Output: Urine 3100 / 3100 1800 / 1800 Other: Date of Last Bowel Movement 10/05/17 # Bowel Movements 0 1 GENERAL: Obese WM, NAD SKIN: Warm and dry. HEAD: Normocephalic. EYES: No scleral icterus. No injection or drainage. NECK: Supple, trachea midline. No JVD or lymphadenopathy. CARDIOVASCULAR: Regular rate and rhythm without murmurs, gallops, or rubs. RESPIRATORY: Breath sounds equal bilaterally. No accessory muscle use. GASTROINTESTINAL: Abdomen soft, non-tender, nondistended. MUSCULOSKELETAL: No cyanosis, ++ edema. BACK: Nontender without obvious deformity. No CVA tenderness. Assessment and Plan - Plan IMPRESSION: 1. Hypercapnic respiratory insufficiency. 2. Chronic obstructive pulmonary disease. 3. Obstructive sleep apnea. 4. Achilles tendon repair and leg infection. 5. Diabetes mellitus. 5. Scrotal edema. PLAN: Duonebs q 6 hrs Supplement 02 Encourage to use CPAP at night SQ Lovenox Stable from Pulm standpoint DC Plans underway Advised to See for sleep study.
--- NOTE | 2017-10-05 19:46 | P.PNIM ---
Subjective Interval history: No new complaints. Physical Exam Vital signs: Vital Signs 10/04/17 20:00 10/04/17 23:35 10/05/17 00:00 Temperature 97.0 F L 98.7 F Pulse Rate 81 82 Respiratory Rate 20 18 18 Blood Pressure 147/73 H 135/69 Pulse Oximetry 96 94 L 10/05/17 04:00 10/05/17 08:00 10/05/17 12:00 Temperature 98.2 F 98.4 F 97.6 F Pulse Rate 78 77 77 Respiratory Rate 18 14 16 Blood Pressure 138/72 128/89 142/80 H Pulse Oximetry 95 95 94 L 10/05/17 13:05 10/05/17 16:00 Temperature 98.9 F Pulse Rate 82 Respiratory Rate 14 Blood Pressure 141/71 H Pulse Oximetry 96 Intake & Output 10/05/17 10/05/17 10/06/17 06:59 18:59 06:59 Intake Total 900 / 900 700 / 700 Output Total 3100 / 3100 1800 / 1800 Balance -2200 / -2200 -1100 / -1100 Weight 172.4 kg Intake: Oral 900 / 900 700 / 700 Output: Urine 3100 / 3100 1800 / 1800 Other: Date of Last Bowel Movement 10/05/17 # Bowel Movements 0 1 Results - Labs CBC & Chem 7: 10/04/17 07:22 10/06/17 07:17 Laboratory Results - last 24 hr 10/04/17 10/05/17 10/05/17 21:10 10:08 17:22 POC Glucose 123 H 131 H 201 H - Procedures Right posterior Achilles incision and drainage 08/24/[address] Della Dhillon placement by Dr. Vasquez 09/19/17 Assessment and Plan - Assessment (1) Rupture of right Achilles tendon Code(s): S86.011A - Strain of right Achilles tendon, initial encounter Status : Acute Plan: Open Achilles rupture, right - Recent admission with Achilles rupture - Pt underwent open repair of right Achilles tendon rupture with flexor hallucis longus tendon transfer and gastrocnemius recession, right lower extremity on 07/24/[address] Murillo. - Per podiatry, pt will need to be strict non-weight bearing for 6-8 weeks. - Pt was noted to have increased swelling and pain in the RLE on 08/04 - LE Doppler US (08/04) --> Is negative for DVT - Refused dc to snf and was noncompliant with weight bearing instructions. - Pt was readmitted with infection at operative site on 08/16 - He was seen by podiatry in clinic on 08/16 and sent to ED - MRI right ankle (08/16): 1. Postoperative change at the distal Achilles and calcaneus. Increased signal within the posterior calcaneus can all be consistent with postoperative change. It would be difficult to rule out osteomyelitis. 2. Fluid seen around the Achilles tendon. More superiorly in the mid lower leg, there is a larger fluid collection with peripheral enhancement. There is also a thinner fluid collection seen more superiorly in the proximal lower leg around the lateral aspect of the soleus muscle. These fluid collections could be postoperative seromas. An abscess could have a similar appearance. - debra and Mehran (08/17) - Rocephin (08/17 - present) - Rocephin stop date 10/07/17 - Comgmt with ID & Podiatry - Pt had a previous outpt culture taken on 08/11 which grew out Enterobacter cloacae - Right posterior Achilles incision and drainage 08/24/[address] Hull - Intraoperative wound Cx (08/24) --> Enterobacter cloacae - Plan to DC to SNF/rehab following hospitalization to ensure non-weight bearing of RLE and good recovery. Pt at risk for Right BKA. - The case was discussed with [facility]. Copay for SNF was defaulted. CM consulted. Pt agreeable for SNF but need to get accepting facility - Pt not ready for dc yet - Discussed dc abx with ID. orders written continue PT efforts. weight bear instruction per podiatry. Pt refusing SNF. - I disagree with pt's choice, but pt is adamant that he will go home after discharge - will arrange for HHC and home PT - request walk test for possible home oxygen - Requested that nursing get pt OOB to chair - Requested re-evaluation by PT - anticipate d/c to home in next 1-3 days. - Pt is high risk for readmission - will decrease percocet to 7.5mg & decrease ativan to q8h prn Volume overload Anasarca/edema Nephrotic range proteinuria - Pt was moved to ICU after Halicat and hypoxia on 08/31. Pt had received small dose of morphine a few hrs before the event. He was refusing bipap but now agreeable. Pt being followed by Dr Sawyer. - He continues with severe anasarca/lower ext edema and scrotal swelling. Also he has sleep apnea/hypoventilation and has hypoalbuminemia. - Procardia lowered to 30mg BID on 08/31, BP is stable. - Had right heart cath on last admission revealing increased right heart pressure. He has also some mild systolic dysfunction with EF 45% - comgmt with Nephrology - Pt continues to exhibit significant clinical volume overload and is NOT yet ready for discharge. - Medical team/Nephrology has been trying to diurese pt for several weeks. - Pt has been tried on IV lasix, IV bumex, and bumex gtt. Pt had good urine output, but did NOT make any significant clinical improvement. - nephrology recommending renal bx to evaluate for FSGS once patient stable. Unable to stop ASA/palvix at this time. - restrict fluids to 1.5 liters daily - - VasCath (09/19/17) - Pt had first HD 09/19, 09/20, 09/21, and 09/23, 09/26 - further HD today per Nephrology. discussed with Dr Steele. hopefully be able to stop HD before dc but outpt HD not excluded. - unable to get kidney bx until probably Nov. after 6m of asa/plavix for little in rca. - left leg rolanda wrapping ordered. - now on PO bumex - if swelling still under control then dc home on Tuesday. f/u office with Dr. Steele. LISS BUN 37, creatintine 1.44, GFR 53 (09/21/17) -> BUN 57, creatinine 3.51, GFR 19 (09/23/17) Cr 3.0 (09/24), 3.55 (09/25) Avoid nephrotoxins including aminoglycosides and IV contrast Monitor urinary output and BMP Obesity hypoventilation syndrome Hypercapnic respiratory insufficiency Obesity hypoventilation syndrome COPD - 2-D echocardiogram 07/23/17: - The left ventricular systolic function is mildly reduced with an estimated ejection fraction in the range of 45- 50%. - Mild infero-posterior hypokinesis - Mild concentric left ventricular hypertrophy. - The left atrial size is moderately dilated. - RHC completed (07/28) --> Class 2 Pulm HTN, PCW 23 - No Right heart strain, so sildenafil was stopped - Pt is noncompliant with CPAP - Pt sedated overnight - decrease flexeril to 5mg q8h prn - decrease norco to q6h prn - encourage pt to wear CPAP at night. COPD (chronic obstructive pulmonary disease) - chronic does not appear to be in acute exacerbation - Pt requiring 2L O2 - CXR (09/22) --> venous congestion - IS - tessalon pearles prn cough - observe Diabetes - Cont OHA and SSI. basal levemir titrate up HTN (hypertension) - cont current BP meds, Cozaar 50mg q12H, Hydralazine 50mg TID, Coreg 25mg BID - May try to lower or stop Procardia. - Hydralazine PO PRN Anemia - Pts H/H has slowly been declining. No noted active GIB - During the last admission the pt was transfused with 2 units PRBCs (08/10) - During recent admission pt underwent evaluation with EGD/Colonoscopy (08/11/17 ) with Dr. Mccormick - int/ext hemorrhoids - sigmoid diverticulosis - esophagitis - gastric biopsies taken, results pending - Repeat labs on 08/21/17 with Hgb 8.3/Hct 24.6 -> 7.7/23.5 (08/24) -> 7.8/24.2, 7.6 (08/27), 8.5 (08/28), 7.7 (09/07), 7.9 (09/08) - Hg 7.9 (09/10) - Iron studies 08/08/17 Iron 26, TIBC 244, % saturation 10.7, ferritin 246 - ferritin 154 (08/27), retic 82 (08/27); b12 515, folate 7.9 (08/26) - case informally d/w Hematology - since ferritin > 100, unlikely d/t ANAHI - 2 units PRBCs (08/27/17) - Hg 7.2 (09/20/17) - transfused 2 units PRBCs 09/20 - Hgb 9.1 (09/21), Hg 8.3 (09/24) CAD (coronary artery disease) Recent history of pulmonary embolism - Patient had a PE approximately 8 months ago and was on Coumadin for until the cardiac cauterization 06/17/17 - Patient with recent cardiac catheterization with PCI 06/17/17 - After catheterization patient's Coumadin was DC'd and he was started on Aspirin and Plavix - Continue patient's Aspirin 81 mg daily, Plavix 75 mg PO daily, Atorvastatin 40 mg PO QHS and Coreg BID Anxiety and depression - Cont. Paxil 20mg daily (1) Rupture of right Achilles tendon Qualifiers: Encounter type: subsequent encounter Qualified Code(s): S86.011D - Strain of right Achilles tendon, subsequent encounter
[2017-10-05] MEDS: Enoxaparin Inj 40 MG/0.4 ML Syringe SQ SCH (22:21)
[2017-10-06] MEDS: Temazepam 15 MG Capsule PO PRN (00:48)
[2017-10-06] MEDS: Gabapentin 300 MG Capsule PO SCH ×2 (06:21→16:01)
[2017-10-06 08:19] LABS: Calcium 8.6 mg/dL (8.5-10.1); Phosphorus 4.8 mg/dL (2.5-4.9)
--- NOTE | 2017-10-06 10:50 | P.PNNP ---
Subjective Interval history: Denies any shortness of breath, nausea, vomiting, or diarrhea. Edema improving. Physical Exam Vital signs: Vital Signs 10/05/17 12:00 10/05/17 13:05 10/05/17 16:00 Temperature 97.6 F 98.9 F Pulse Rate 77 82 Respiratory Rate 16 14 Blood Pressure 142/80 H 141/71 H Pulse Oximetry 94 L 96 10/05/17 20:00 10/06/17 00:00 10/06/17 04:00 Temperature 96 F L 96.3 F L Pulse Rate 101 H 88 Respiratory Rate 18 16 16 Blood Pressure 179/94 H 157/74 H Pulse Oximetry 94 L 99 10/06/17 10:40 Temperature Pulse Rate Respiratory Rate Blood Pressure Pulse Oximetry 97 Intake & Output 10/05/17 10/06/17 10/06/17 18:59 06:59 18:59 Intake Total 700 / 700 900 / 900 Output Total 1800 / 1800 1500 / 1500 Balance -1100 / -1100 -600 / -600 Weight 166.6 kg Intake: Oral 700 / 700 900 / 900 Output: Urine 1800 / 1800 1500 / 1500 Other: Date of Last Bowel Movement 10/05/17 10/05/17 # Bowel Movements 1 Narrative: GENERAL: Alert and oriented. SKIN: Warm and dry. Drg on left lower leg HEAD: Normocephalic. EYES: No scleral icterus. No injection or drainage. NECK: Supple, trachea midline. No JVD or lymphadenopathy. CARDIOVASCULAR: Regular rate and rhythm without murmurs, gallops, or rubs. RESPIRATORY: Breath sounds distant bilaterally. No accessory muscle use. GASTROINTESTINAL: Abdomen soft, non-tender, nondistended. Large MUSCULOSKELETAL: No cyanosis, bilateral dependent lower extremity edema BACK: Nontender without obvious deformity. No CVA tenderness. Assessment and Plan - Assessment (1) Acute kidney injury superimposed on chronic kidney disease Code(s): N17.9 - Acute kidney failure, unspecified; N18.9 - Chronic kidney disease, unspecified Status: Acute Plan: Has Nephrotic Proteinuria with Anasarca. Will need Renal Biopsy but now on ASA and Plavix, will need to delay the Kidney Biopsy for now. Hemodialysis started on 09/19 for anasarca and has since been discontinued PLAN/RECOMMENDATIONS: --Cleared from nephrology standpoint, for discharge --Suggest nephrology follow-up as an outpatient shortly after discharge --Patient reports possible discharge today instructed to avoid any nonsteroidal anti-inflammatory drugs. Also to continue fluid restriction and low sodium diet. Continue bumex 2 mg BID and monitor labs periodically.
--- NOTE | 2017-10-06 11:06 | P.DS ---
<Sally Mathias W - Last Filed: 10/07/17 15:26> Date of admission: 08/16/17 20:27 Primary care physician: Ania De Leon MD Attending physician on discharge: Frank Cordero Anticipated date of discharge: 10/06/17 Brief History from admission: 47-year-old male presents to the emergency department sent by Dr. Murillo for admission for infection to his right ankle. Patient had surgery for Achilles tendon rupture earlier this month. He followed up with her today and she removed the splint. There is erythema and drainage to the incision site. Patient comes with a prescription from Dr. Murillo on that says admit to medicine, MRI of the right ankle with and without contrast, consult ID re- postop infection and needs long-term IV antibiotics, not Levaquin, consult podiatry. Patient denies any fevers or chills. Current pain is 10/10 to the right ankle without radiation. Exacerbating factor is being out of his pain medication. Moderate severe also patient has extensive PMH on multiple medications and has severe pain to rt ankle and foot and some SOB. Patient states is compliant with his medications. DS: Diagnosis - Discharge Diagnosis (1) Rupture of right Achilles tendon Status: Acute DS: Medications - Discharge Medications Prescriptions: bumetanide 2 mg PO BID@0900,1800 30 Days tab glimepiride 4 mg PO BIDAC 30 Days tab insulin detemir U-100 [Levemir U-100 Insulin] 35 unit SUB-Q DAILY 30 Days #10.5 ml insulin detemir U-100 [Levemir U-100 Insulin] 30 unit SUB-Q HS 30 Days #9 ml lorazepam 0.5 mg PO Q8H PRN #9 tab PRN Reason: Anxiety oxycodone-acetaminophen 1 tab PO Q6H PRN #12 tab PRN Reason: Pain Scale 1 To 10 DS: Summary Hospital Course: Open Achilles rupture, right - Recent admission with Achilles rupture - Pt underwent open repair of right Achilles tendon rupture with flexor hallucis longus tendon transfer and gastrocnemius recession, right lower extremity on 07/24/[address] Murillo. - Per podiatry, pt will need to be strict non-weight bearing for 6-8 weeks. - Pt was noted to have increased swelling and pain in the RLE on 08/04 - LE Doppler US (08/04) --> Is negative for DVT - Refused dc to snf and was noncompliant with weight bearing instructions. - Pt was readmitted with infection at operative site on 08/16 - He was seen by podiatry in clinic on 08/16 and sent to ED - MRI right ankle (08/16): 1. Postoperative change at the distal Achilles and calcaneus. Increased signal within the posterior calcaneus can all be consistent with postoperative change. It would be difficult to rule out osteomyelitis. 2. Fluid seen around the Achilles tendon. More superiorly in the mid lower leg, there is a larger fluid collection with peripheral enhancement. There is also a thinner fluid collection seen more superiorly in the proximal lower leg around the lateral aspect of the soleus muscle. These fluid collections could be postoperative seromas. An abscess could have a similar appearance. - debra and Zosyn (08/17) - Rocephin (08/17 - present) - Rocephin stop date 10/06/17 - Comgmt with ID & Podiatry - Pt had a previous outpt culture taken on 08/11 which grew out Enterobacter cloacae - Right posterior Achilles incision and drainage 08/24/[address] Hull - Intraoperative wound Cx (08/24) --> Enterobacter cloacae - Plan to DC to SNF/rehab following hospitalization. Pt at risk for Right BKA. - The case was discussed with [facility]. Copay for SNF was defaulted. CM consulted. Pt agreeable for SNF but need to get accepting facility continue PT efforts. weight bear instruction per podiatry. Pt refusing SNF. - I disagree with pt's choice, but pt is adamant that he will go home after discharge - will arrange for HHC and home PT - request walk test for possible home oxygen, patient did not qualify for home oxygen - Requested that nursing get pt OOB to chair - Requested re-evaluation by PT - per podiatry patient WBAT with CAM boot - Pt is high risk for readmission Volume overload Anasarca/edema Nephrotic range proteinuria - Pt was moved to ICU after Halicat and hypoxia on 08/31. Pt had received small dose of morphine a few hrs before the event. He was refusing bipap but now agreeable. Pt being followed by Dr Sawyer. - He continues with severe anasarca/lower ext edema and scrotal swelling. Also he has sleep apnea/hypoventilation and has hypoalbuminemia. - Procardia lowered to 30mg BID on 08/31, BP is stable. - Had right heart cath on last admission revealing increased right heart pressure. He has also some mild systolic dysfunction with EF 45% - comgmt with Nephrology - Pt continues to exhibit significant clinical volume overload and is NOT yet ready for discharge. - Medical team/Nephrology has been trying to diurese pt for several weeks. - Pt has been tried on IV lasix, IV bumex, and bumex gtt. Pt had good urine output, but did NOT make any significant clinical improvement. - nephrology recommending renal bx to evaluate for FSGS once patient stable. Unable to stop ASA/palvix at this time. - restrict fluids to 1.5 liters daily - - VasCath (09/19/17) - Pt had first HD 09/19, 09/20, 09/21, and 09/23, 09/26 - further HD today per Nephrology. discussed with Dr Steele. hopefully be able to stop HD before dc but outpt HD not excluded. - unable to get kidney bx until probably Oct. after 6m of asa/plavix for little in rca. - left leg rolanda wrapping ordered. - now on PO bumex - Cleared from nephrology standpoint, for discharge - Suggest nephrology follow-up as an outpatient shortly after discharge, patient will need renal bx once he is able to stop plavix and aspirin - f/u office with Dr. Steele. LISS BUN 37, creatintine 1.44, GFR 53 (09/21/17) -> BUN 57, creatinine 3.51, GFR 19 (09/23/17) Cr 3.0 (09/24), 3.55 (09/25), 1.41 (10/06/17) Avoid nephrotoxins including aminoglycosides and IV contrast Monitor urinary output and BMP Obesity hypoventilation syndrome Hypercapnic respiratory insufficiency Obesity hypoventilation syndrome COPD - 2-D echocardiogram 07/23/17: - The left ventricular systolic function is mildly reduced with an estimated ejection fraction in the range of 45- 50%. - Mild infero-posterior hypokinesis - Mild concentric left ventricular hypertrophy. - The left atrial size is moderately dilated. - RHC completed (07/28) --> Class 2 Pulm HTN, PCW 23 - No Right heart strain, so sildenafil was stopped - Pt is noncompliant with CPAP - Pt sedated overnight - decrease flexeril - decrease norco - encourage pt to wear CPAP at night - patient refusing COPD (chronic obstructive pulmonary disease) - chronic does not appear to be in acute exacerbation - Pt requiring 2L O2 - CXR (09/22) --> venous congestion - IS - Tessalon pearles prn cough - observe Diabetes - Cont OHA and SSI. basal levemir 30 units QHS and 35 units each AM HTN (hypertension) - cont current BP meds, Cozaar 50mg q12H, Hydralazine 50mg TID, Coreg 25mg BID - May try to lower or stop Procardia. - Hydralazine PO PRN Anemia - Pts H/H has slowly been declining. No noted active GIB - During the last admission the pt was transfused with 2 units PRBCs (08/10) - During recent admission pt underwent evaluation with EGD/Colonoscopy (08/11/17 ) with Dr. Mccormick - int/ext hemorrhoids - sigmoid diverticulosis - esophagitis - gastric biopsies taken, results pending - Repeat labs on 08/21/17 with Hgb 8.3/Hct 24.6 -> 7.7/23.5 (08/24) -> 7.8/24.2, 7.6 (08/27), 8.5 (08/28), 7.7 (09/07), 7.9 (09/08) - Hg 7.9 (09/10) - Iron studies 08/08/17 Iron 26, TIBC 244, % saturation 10.7, ferritin 246 - ferritin 154 (08/27), retic 82 (08/27); b12 515, folate 7.9 (08/26) - case informally d/w Hematology - since ferritin > 100, unlikely d/t ANAHI - 2 units PRBCs (08/27/17) - Hg 7.2 (09/20/17) - transfused 2 units PRBCs 09/20 - Hgb 9.1 (09/21), Hg 8.3 (09/24) CAD (coronary artery disease) Recent history of pulmonary embolism - Patient had a PE approximately 8 months ago and was on Coumadin for until the cardiac cauterization 06/17/17 - Patient with recent cardiac catheterization with PCI 06/17/17 - After catheterization patient's Coumadin was DC'd and he was started on Aspirin and Plavix - Continue patient's Aspirin 81 mg daily, Plavix 75 mg PO daily, Atorvastatin 40 mg PO QHS and Coreg BID Anxiety and depression - Cont. Paxil 20mg daily - Time Spent with Patient Total time spent providing and/or coordinating discharge services: Greater than 30 minutes Exam Vital signs: Vital Signs 10/05/17 12:00 10/05/17 13:05 10/05/17 16:00 Temperature 97.6 F 98.9 F Pulse Rate 77 82 Respiratory Rate 16 14 Blood Pressure 142/80 H 141/71 H Pulse Oximetry 94 L 96 10/05/17 20:00 10/06/17 00:00 10/06/17 04:00 Temperature 96 F L 96.3 F L Pulse Rate 101 H 88 Respiratory Rate 18 16 16 Blood Pressure 179/94 H 157/74 H Pulse Oximetry 94 L 99 10/06/17 10:40 Temperature Pulse Rate Respiratory Rate Blood Pressure Pulse Oximetry 97 Intake & Output 10/05/17 10/06/17 10/06/17 18:59 06:59 18:59 Intake Total 700 / 700 900 / 900 Output Total 1800 / 1800 1500 / 1500 Balance -1100 / -1100 -600 / -600 Weight 166.6 kg Intake: Oral 700 / 700 900 / 900 Output: Urine 1800 / 1800 1500 / 1500 Other: Date of Last Bowel Movement 10/05/17 10/05/17 # Bowel Movements 1 Narrative: GENERAL: This is a well-nourished, well-developed patient, in no apparent distress. CARDIOVASCULAR: Regular rate and rhythm without murmurs, gallops, or rubs. RESPIRATORY: Clear to auscultation. Breath sounds equal bilaterally. No wheezes , rales, or rhonchi. GASTROINTESTINAL: Abdomen soft, non-tender, nondistended. Normal active bowel sounds MUSCULOSKELETAL: 1+ LE edema s b/l and edema at flanks. Overall edema is much improved from mid-August. scrotal edema present but improved from 1 month prior, less tense. NEURO: Alert & Oriented x4 to person, place, time, situation. Moves all ext x4 Results Procedures completed during hospitalization: Right posterior Achilles incision and drainage 08/24/[address] Della Dhillon placement by Dr. Vasquez 09/19/17 VAscath removed Labs on day of discharge: Labs from last 24 hours 10/06/17 10/05/17 10/05/17 07:17 20:44 17:22 Sodium 139 Potassium 5.0 Chloride 101 Carbon Dioxide 33.0 H Anion Gap 5 BUN 37 H Creatinine 1.42 H Estimated GFR 54 L POC Glucose 178 H 201 H Random Glucose 125 H Calcium 8.6 Phosphorus 4.8 Albumin 3.0 L - Impressions ITS Impressions Needle Aspiration US 08/22/17 00:00 CONCLUSION: Very minimal serosanguineous fluid approximating 0.5 cc. Foot X-Ray 08/25/17 07:11 CONCLUSION: 1. No acute fracture or dislocation. 2. Soft tissue swelling about the hind and midfoot. Scrotum Ultrasound 08/31/17 00:00 CONCLUSION: 1. Significant scrotal edema. 2. Trace hydrocele 3. Testicles appear normal. Abdomen/Bladder Ultrasound 09/03/17 00:00 CONCLUSION: Limited exam of the kidneys. The visualized secondary to the patient's body habitus. Knee X-Ray 09/10/17 00:00 CONCLUSION: Unremarkable exam. Catheter Placement 09/19/17 00:00 CONCLUSION: 1. Uncomplicated line placement as above. Chest X-Ray 09/22/17 00:00 CONCLUSION: 1. Pulmonary venous congestion. 2. Right-sided central lines in place. No pneumothorax. <Frank Cordero B - Last Filed: 10/11/17 10:06> Date of admission: 08/16/17 20:27 Primary care physician: Ania De Leon MD DS: Diagnosis - Discharge Diagnosis (1) Rupture of right Achilles tendon Status: Acute DS: Summary Hospital Course: Patient examined. Assessment and plan formulated with Sally Mathias PA-C. I agree with the above. - Time Spent with Patient Total time spent providing and/or coordinating discharge services: Results - Impressions ITS Impressions Needle Aspiration US 08/22/17 00:00 CONCLUSION: Very minimal serosanguineous fluid approximating 0.5 cc. Foot X-Ray 08/25/17 07:11 CONCLUSION: 1. No acute fracture or dislocation. 2. Soft tissue swelling about the hind and midfoot. Scrotum Ultrasound 08/31/17 00:00 CONCLUSION: 1. Significant scrotal edema. 2. Trace hydrocele 3. Testicles appear normal. Abdomen/Bladder Ultrasound 09/03/17 00:00 CONCLUSION: Limited exam of the kidneys. The visualized secondary to the patient's body habitus. Knee X-Ray 09/10/17 00:00 CONCLUSION: Unremarkable exam. Catheter Placement 09/19/17 00:00 CONCLUSION: 1. Uncomplicated line placement as above. Chest X-Ray 09/22/17 00:00 CONCLUSION: 1. Pulmonary venous congestion. 2. Right-sided central lines in place. No pneumothorax. Discharge Plan - Discharge Order Discharge Orders: Discharge Order (Routine); Ordered 10/06/17 Ordered By: Sally Mathias - Discharge Details Anticipated Discharge Date: 10/06/17 - Physicians Team Primary Care Provider: Ania De Leon Attending Provider: Jonathan Melissa Other Providers: DOCTORS BRYANT, ; [employer] Bryant,[employer] ; Shelby Kimball DPM ; Genny Morris MD ; Rosaura Hoffmann,[employer] ; Luis Armando Sawyer MD ; Dash Steele MD - Rxs /Orders / Referrals /Forms Prescriptions: New bumetanide 1 mg Tablet 2 mg PO BID@0900,1800 30 Days RF: 0 glimepiride 4 mg Tablet 4 mg PO BIDAC 30 Days RF: 0 insulin detemir U-100 [Levemir U-100 Insulin] 100 unit/mL Solution 35 unit Sub-Q DAILY 30 Days Qty: 10.5 RF: 0 insulin detemir U-100 [Levemir U-100 Insulin] 100 unit/mL Solution 30 unit Sub-Q HS 30 Days Qty: 9 RF: 0 lorazepam 0.5 mg Tablet 0.5 mg PO Q8H PRN (Reason: Anxiety) Qty: 9 RF: 0 oxycodone-acetaminophen 7.5-325 mg Tablet 1 tab PO Q6H PRN (Reason: Pain Scale 1 To 10) Qty: 12 RF: 0 Continue allopurinol 100 mg Tablet 100 mg PO DAILY aspirin 81 mg Tablet,Delayed Release (Dr/Ec) 81 mg PO DAILY atorvastatin 40 mg Tablet 40 mg PO HS carvedilol 25 mg Tablet 25 mg PO BID clopidogrel 75 mg Tablet 75 mg PO DAILY gabapentin 300 mg Capsule 300 mg PO Q8H hydralazine 50 mg Tablet 50 mg PO TID losartan 50 mg Tablet 50 mg PO Q12H nifedipine 60 mg Tablet Extended Release 24hr 60 mg PO Q12H pantoprazole 40 mg Tablet,Delayed Release (Dr/Ec) 40 mg PO DAILY paroxetine HCl 10 mg Tablet 20 mg PO DAILY Discontinued clindamycin HCl 300 mg Capsule 300 mg PO Q6H furosemide 40 mg Tablet 40 mg PO DAILY glimepiride 2 mg Tablet 2 mg PO BIDAC hydrocodone-acetaminophen 10-325 mg Tablet 1 tab PO Q4H PRN (Reason: Pain) insulin aspart U-100 [Novolog U-100 Insulin aspart] 100 unit/mL Solution 1 sliding scale dose SUB-Q DIRECTED metformin 750 mg Tablet Extended Release 24 Hr 750 mg PO BID nystatin 100,000 unit/mL Suspension 5 ml PO QID Ambulatory Orders / Order Sets / DME: Basic Metabolic Panel (Routine) Timeframe: 1 Week Location: Determined by Patient Ordered By: Sally Mathias Referrals: Dash Steele MD [Physician] - See Instructions (follow up in 1-2 weeks) Ania De Leon MD [Primary Care Provider] - See Instructions (follow up in 1 week) Josie Hull DPM [Physician] - See Instructions (follow up in 1 week) - Discharge Instructions Patient Printed Instructions: Heart Failure (GEN), Fluid Restriction (GEN), Incision and Drainage (DC), Edema (GEN), Hemodialysis for Acute Kidney Failure ( GEN) Additional Instructions: Your Health Problems: Goals to Promote Your Health: * To prevent worsening of your condition * To maintain your health at the optimal level Directions to Meet Your Goals: * Take your medications as prescribed * Follow your dietary instruction * Follow activity as directed * Keep your appointments as scheduled * Take your immunizations and boosters as scheduled * If your symptoms worsen call your PCP * If no PCP go to Urgent Care or Emergency Room Smoking is dangerous to your health. Avoid second hand smoke. You may reach the 24-hour crisis hotline for domestic abuse at [phone].weight bearing as tolerated in CAM boot
--- NOTE | 2017-10-06 11:08 | P.DCO ---
- Diagnosis (1) Rupture of right Achilles tendon (3) Diabetes - Physical Therapy Order: Evaluate and treat - Home Health Nursing Order: Medical education, Signs/symptoms of disease process, Diabetic education , Medication education-adverse effect, Nursing assessment with vital signs - Certification I have seen patient Ihsan Zaire Rios on 10/06/17. My clinical findings support the need for the requested home health care services because: Limited mobility due to disease progression, Deconditioned with increased weakness, Medication compliance is questionable, Limited ability to care for self I certify that my clinical findings support that this patient is homebound because: Post-op weakness, Unsteady gait/balance (1) Rupture of right Achilles tendon Qualifiers: Encounter type: subsequent encounter Qualified Code(s): S86.011D - Strain of right Achilles tendon, subsequent encounter (3) Diabetes Qualifiers: Diabetes mellitus type: type 2
[2017-10-06] MEDS: Senna/Docusate Sodium 8.6/50 MG Tablet PO SCH (11:30)
[2017-10-06] MEDS: Carvedilol 12.5 MG Tablet PO SCH (11:30)
[2017-10-06] MEDS: Benzonatate 100 MG Capsule PO PRN (11:30)
[2017-10-06] MEDS: hydrALAZINE 25 MG Tablet PO SCH ×2 (11:30→16:01)
[2017-10-06] MEDS: LORazepam 0.5 MG Tablet PO PRN (11:31)
[2017-10-06] MEDS: Glimepiride 4 MG Tablet PO SCH ×2 (11:32→16:01)
[2017-10-06] MEDS: Heparin Central Flush 100 UNIT/ML 5 ML Vial IV.FLUSH SCH (11:33)
[2017-10-06] MEDS: Lactic Acid (Ammonium Lactate) 12% Lotion 225 GM Bottle TOPICAL SCH (11:34)
[2017-10-06] MEDS: Insulin Detemir Inj 1,000 UNIT/10 ML Vial SQ SCH (11:35)
[2017-10-06] MEDS: Insulin NovoLOG Aspart Correctional Sugar Inj SQ SCH ×2 (11:56→16:01)
[2017-10-06] MEDS: Allopurinol 100 MG Tablet PO SCH (11:56)
[2017-10-06 16:01] VITALS: RESP 14
[2017-10-06 16:03] VITALS: PULSE 78
[2017-10-06 16:05] VITALS: BP 122/80; TEMP 98.4; O2SAT 96
--- NOTE | 2017-10-06 17:59 | P.PNPL ---
Subjective Interval history: 47 YOWM with Achelis tendon repair,JUDY,COPD Has huge scrotal swelling Diureasing Feels swelling decreasing Breathing better No new complaint Physical Exam Vital signs: Vital Signs 10/05/17 20:00 10/06/17 00:00 10/06/17 04:00 Temperature 96 F L 96.3 F L Pulse Rate 101 H 88 Respiratory Rate 18 16 16 Blood Pressure 179/94 H 157/74 H Pulse Oximetry 94 L 99 10/06/17 08:00 10/06/17 10:40 10/06/17 11:21 Temperature 98 F Pulse Rate 82 Respiratory Rate 20 18 Blood Pressure 122/82 Pulse Oximetry 97 97 10/06/17 12:00 10/06/17 15:56 10/06/17 16:00 Temperature 95 F L 98.4 F Pulse Rate 78 78 Respiratory Rate 14 12 14 Blood Pressure 126/82 122/80 Pulse Oximetry 98 96 Intake & Output 10/05/17 10/06/17 10/06/17 18:59 06:59 18:59 Intake Total 700 / 700 900 / 900 300 / 300 Output Total 1800 / 1800 1500 / 1500 900 / 900 Balance -1100 / -1100 -600 / -600 -600 / -600 Weight 166.6 kg Intake: Oral 700 / 700 900 / 900 300 / 300 Output: Urine 1800 / 1800 1500 / 1500 900 / 900 Other: Date of Last Bowel Movement 10/05/17 10/05/17 10/05/17 # Bowel Movements 1 GENERAL: Obese WM,NAD SKIN: Warm and dry. HEAD: Normocephalic. EYES: No scleral icterus. No injection or drainage. NECK: Supple, trachea midline. No JVD or lymphadenopathy. CARDIOVASCULAR: Regular rate and rhythm without murmurs, gallops, or rubs. RESPIRATORY: Breath sounds equal bilaterally. No accessory muscle use. GASTROINTESTINAL: Abdomen soft, non-tender, nondistended. MUSCULOSKELETAL: No cyanosis, ++ edema. BACK: Nontender without obvious deformity. No CVA tenderness. Assessment and Plan - Plan IMPRESSION: 1. Hypercapnic respiratory insufficiency. 2. Chronic obstructive pulmonary disease. 3. Obstructive sleep apnea. 4. Achilles tendon repair and leg infection. 5. Diabetes mellitus. 5. Scrotal edema. PLAN: Supplement 02 Encourage to use CPAP at night SQ Lovenox Stable from Pulm standpoint DC Plans underway Advised to See for sleep study.
== END 2017-10-06 18:35 | disposition home health service (06) ==
LOC: N04 20:27 → HIMC 08-31 14:48 → H7ONC 09-16 09:45 → HIMC 09-16 10:00 → H7ONC 09-16 12:49
PROVIDERS: ADMIT Hospitalist; ATTEND Hospitalist